=== PATIENT | female | born 1960 | race Caucasian/White ===

== ENCOUNTER → 2019-11-09 11:13 | Outpatient (CLI) | payer OTHER, SELFPAY | PROVIDERS: PCP Family Medicine; Visit Provider Family Medicine | DX: G47.33 Obstructive sleep apnea (adult) (pediatric) (principal) | CPT/HCPCS: G0399 ==

== ENCOUNTER → 2020-01-12 09:25 | Outpatient (CLI) | payer MEDICAID, SELFPAY ==
[2020-01-12 10:52] LABS: Coronavirus 19 IgG Antibody Negative (Negative); Coronavirus 19 IgM Antibody Negative (Negative)
== END ==
PROVIDERS: Visit Provider Nurse Practitioner Family
DX: Z01.818 Encounter for other preprocedural examination (principal)
CPT/HCPCS: 36415; 86328

== ENCOUNTER → 2020-01-14 20:00 | Outpatient (CLI) | payer MEDICAID, SELFPAY | PROVIDERS: Visit Provider Nurse Practitioner Family | DX: Z01.818 Encounter for other preprocedural examination (principal); G47.33 Obstructive sleep apnea (adult) (pediatric) | CPT/HCPCS: 95811 ==

== ENCOUNTER → 2020-03-12 10:44 | Outpatient (CLI) | payer MEDICAID, SELFPAY | PROVIDERS: Visit Provider Specialist | DX: E83.10 Disorder of iron metabolism, unspecified (principal); G25.81 Restless legs syndrome | CPT/HCPCS: 36415; 82728 ==

== ENCOUNTER → 2020-06-10 11:49 | Outpatient (CLI) | payer MEDICAID, SELFPAY ==
[2020-06-10 14:00] LABS: Chloride 96 mmol/L (98-107); Sodium 133 mmol/L (136-145)
[2020-06-10 14:01] LABS: Potassium 5.1 mmoL/L (3.5-5.1)
[2020-06-10 14:03] LABS: Blood Urea Nitrogen 17 mg/dl (7-17); Estimated Glomerular Filt Rate 74 ml/min (>60); GFR (African American) 89 ML/MIN (>60)
[2020-06-10 14:04] LABS: Anion Gap 17.1 mEq/L (5-15); Calcium 10.1 mg/dl (8.4-10.2); Carbon Dioxide 25 mmol/L (22.0-30.0); Glucose 373 mg/dl (74-100); Magnesium 1.8 mg/dl (1.6-2.3)
[2020-06-10 14:16] LABS: Basophils # 0.1 K/mm3 (0-0.2); Basophils % 0.7 % (0.1-2.0); Eosinophils # 0.3 K/mm3 (0.0-0.4); Eosinophils % 3.1 % (0.1-12.0); Hematocrit 33.2 % (37.0-47.0); Hemoglobin 10.2 g/dL (12.2-16.2); Lymphocytes # 2.7 K/mm3 (0.7-4.5); Lymphocytes % 29.2 % (10-50); Mean Corpuscular HGB Conc 30.6 g/dL (31.8-35.4); Mean Corpuscular Hemoglobin 21.7 pg (27.0-31.2); Mean Corpuscular Volume 71.1 fl (81-99); Mean Platelet Volume 7.8 fl (7.4-10.4); Monocytes # 0.6 K/mm3 (0.1-1.0); Monocytes % 6.1 % (1.7-9.3); Neutrophils # 5.7 K/mm3 (1.8-7.8); Neutrophils % 60.8 % (37.0-80.0); Platelet Count 437 K/mm3 (142-424); Red Blood Count 4.67 M/mm3 (4.20-5.40); Red Cell Distribution Width 16.9 % (11.5-17.5); White Blood Count 9.3 K/mm3 (4.8-10.8)
== END ==
PROVIDERS: Visit Provider Family Medicine
DX: E11.9 Type 2 diabetes mellitus without complications (principal); N39.0 Urinary tract infection, site not specified; E87.1 Hypo-osmolality and hyponatremia; Z79.4 Long term (current) use of insulin
CPT/HCPCS: 80048; 83735; 85025

== ENCOUNTER → 2021-06-30 10:46 | Outpatient (CLI) | payer MEDICAID, SELFPAY ==
[2021-06-30 11:14] LABS: Basophils # 0.2 K/mm3 (0-0.2); Basophils % 1.7 % (0.1-2.0); Eosinophils # 0.3 K/mm3 (0.0-0.4); Eosinophils % 3.1 % (0.1-12.0); Hematocrit 40.7 % (37.0-47.0); Hemoglobin 12.7 g/dL (12.2-16.2); Lymphocytes # 3.4 K/mm3 (0.7-4.5); Lymphocytes % 31.3 % (10-50); Mean Corpuscular HGB Conc 31.3 g/dL (31.8-35.4); Mean Corpuscular Hemoglobin 28.5 pg (27.0-31.2); Mean Platelet Volume 7.7 fl (7.4-10.4); Monocytes # 0.5 K/mm3 (0.1-1.0); Monocytes % 4.9 % (1.7-9.3); Neutrophils # 6.3 K/mm3 (1.8-7.8); Platelet Count 343 K/mm3 (142-424); Red Blood Count 4.47 M/mm3 (4.20-5.40); Red Cell Distribution Width 14.7 % (11.5-17.5); White Blood Count 10.7 K/mm3 (4.8-10.8)
[2021-06-30 11:41] LABS: Alanine Aminotransferase 23 U/L (12-78); Albumin Level 4.3 g/dl (3.5-5.0); Albumin/Globulin Ratio 1.3 (1.1-1.8); Alkaline Phosphatase 121 U/L (38-126); Anion Gap 11.6 mEq/L (5-15); Aspartate Amino Transferase 33 U/L (14-36); Bilirubin,Total 0.3 mg/dl (0.2-1.3); Calcium 10.2 mg/dl (8.4-10.2); Carbon Dioxide 31 mmol/L (22.0-30.0); Chloride 93 mmol/L (98-107); Chol/HDL Ratio 4.2 (1-3.5); Cholesterol 155 mg/dl (140-200); Globulin 3.2 g/dL (1.3-3.2); Glucose 355 mg/dl (74-100); HDL Cholesterol 37 mg/dl (40-60); Potassium 4.6 mmoL/L (3.5-5.1); Sodium 131 mmol/L (136-145); Total Protein,Serum 7.5 g/dl (6.3-8.2); Triglycerides 305 mg/dl (30-150); VLDL Cholesterol 61 mg/dL (0-40)
[2021-06-30 11:45] LABS: Blood Urea Nitrogen 23 mg/dl (7-17); Hemoglobin A1C 10.1 % (4.0-6.0)
[2021-06-30 11:46] LABS: Estimated Glomerular Filt Rate 86 ml/min (>60); GFR (African American) 104 ML/MIN (>60)
[2021-06-30 11:51] LABS: Direct LDL Cholesterol 78.24 mg/dL (100-129)
[2021-06-30 11:57] LABS: 25-OH Vitamin D, Total 32.7 ng/mL (30-100)
[2021-06-30 11:59] LABS: T4 (Thyroxine) 7.5 ug/dl (5.53-11.0)
[2021-07-01 11:16] LABS: C-Peptide 6.9 ng/mL (1.1-4.4)
== END ==
PROVIDERS: PCP Family Medicine; Visit Provider Nurse Practitioner Family
DX: E11.9 Type 2 diabetes mellitus without complications (principal); E66.9 Obesity, unspecified; Z68.31 Body mass index [BMI] 31.0-31.9, adult; Z79.4 Long term (current) use of insulin; Z79.899 Other long term (current) drug therapy
CPT/HCPCS: 36415; 80053; 80061; 82043; 82306; 83036; 84436; 84443; 84681; 85025

== ENCOUNTER → 2021-10-09 08:37 | Outpatient (CLI) | payer MEDICAID, SELFPAY ==
[2021-10-09 17:08] LABS: Hemoglobin A1C 8.3 % (4.0-6.0)
== END ==
PROVIDERS: PCP Family Medicine; Visit Provider Family Medicine
DX: E11.9 Type 2 diabetes mellitus without complications (principal); Z79.4 Long term (current) use of insulin
CPT/HCPCS: 83036

== ENCOUNTER → 2021-12-29 12:14 | Outpatient (CLI) | payer MEDICAID, SELFPAY ==
[2021-12-29 18:32] LABS: Hemoglobin A1C 9.6 % (4.0-6.0)
== END ==
PROVIDERS: PCP Family Medicine; Visit Provider Family Medicine
DX: G62.89 Other specified polyneuropathies (principal); E11.610 Type 2 diabetes mellitus with diabetic neuropathic arthropathy; Z79.4 Long term (current) use of insulin
CPT/HCPCS: 83036

== ENCOUNTER → 2022-05-20 10:22 | Outpatient (CLI) | payer MEDICARE, MEDICAID, SELFPAY ==
[2022-05-20 15:05] LABS: Basophils # 0.1 K/mm3 (0-0.2); Basophils % 0.5 % (0.1-2.0); Eosinophils # 0.2 K/mm3 (0.0-0.4); Eosinophils % 2.2 % (0.1-12.0); Hematocrit 35.6 % (37.0-47.0); Hemoglobin 10.7 g/dL (12.2-16.2); Lymphocytes # 3.1 K/mm3 (0.7-4.5); Lymphocytes % 30.9 % (10-50); Mean Corpuscular HGB Conc 30.1 g/dL (31.8-35.4); Mean Corpuscular Hemoglobin 21.1 pg (27.0-31.2); Mean Corpuscular Volume 70.1 fl (81-99); Mean Platelet Volume 7.6 fl (7.4-10.4); Monocytes # 0.5 K/mm3 (0.1-1.0); Monocytes % 4.7 % (1.7-9.3); Neutrophils # 6.1 K/mm3 (1.8-7.8); Neutrophils % 61.5 % (37.0-80.0); Platelet Count 434 K/mm3 (142-424); Red Blood Count 5.07 M/mm3 (4.20-5.40); Red Cell Distribution Width 22.1 % (11.5-17.5); White Blood Count 9.9 K/mm3 (4.8-10.8)
[2022-05-20 15:08] LABS: Alanine Aminotransferase 32 U/L (12-78); Albumin Level 4.5 g/dl (3.5-5.0); Albumin/Globulin Ratio 1.4 (1.1-1.8); Alkaline Phosphatase 202 U/L (38-126); Anion Gap 14.3 mEq/L (5-15); Aspartate Amino Transferase 42 U/L (14-36); Bilirubin,Total 0.2 mg/dl (0.2-1.3); Blood Urea Nitrogen 19 mg/dl (7-17); Calcium 10.2 mg/dl (8.4-10.2); Carbon Dioxide 27 mmol/L (22.0-30.0); Chloride 96 mmol/L (98-107); Estimated Glomerular Filt Rate 73 ml/min (>60); GFR (African American) 89 ML/MIN (>60); Globulin 3.2 g/dL (1.3-3.2); Glucose 308 mg/dl (74-100); Potassium 4.3 mmoL/L (3.5-5.1); Sodium 133 mmol/L (136-145); Total Protein,Serum 7.7 g/dl (6.3-8.2)
[2022-05-20 15:38] LABS: Thyroid Stimulating Hormone 1.95 uIU/mL (0.465-4.68)
[2022-05-20 17:21] LABS: Hemoglobin A1C 9.7 % (4.0-6.0)
== END ==
PROVIDERS: PCP Family Medicine; Visit Provider Family Medicine
DX: D64.9 Anemia, unspecified; E11.610 Type 2 diabetes mellitus with diabetic neuropathic arthropathy; Z79.4 Long term (current) use of insulin; Z79.899 Other long term (current) drug therapy
CPT/HCPCS: 80053; 83036; 84443; 85025

== ENCOUNTER → 2022-06-08 10:27 | Outpatient (CLI) | payer MEDICARE, MEDICAID, SELFPAY ==
--- NOTE | 2022-06-08 10:39 | NM_ITS ---
APPROVED REPORT Exam: Nuclear Stress Test Indication: Abnormal EKG, Chest pain, SOB, Palpitations, Fatigue, HTN, DM, High cholesterol, Family history, Tobacco use, CAD Patient Location: Outpatient Stress Tech: Shira Pickens [place] Tech:Juliann Ríos, ARRT, RT (R)(N) Ht: 5 ft 2 in Wt: 170 lbs Bra Size: 42D HR: 78 bpm BP: 132/79 mmHg BSA: 1.78 m2 TID: 1.22 BMI: 31.0 History: Abnormal EKG, Chest pain, SOB, Palpitations, Fatigue, HTN, DM, High cholesterol, Family history, Tobacco use, CAD Procedure: Patient received a 0.4 mg of intravenous Lexiscan, resting heart rate 78 bpm, resting blood pressure 132/79 mmHg, with Lexiscan maximum heart rate achived was 82 bpm which is Less than 85 % of the maximum predicted heart rate and blood pressure was 132/79 mmHg. With Lexiscan, patient denied any complaint of chest pain. Electrocardiogram Resting electrocardiogram shows sinus rhythm, with Lexiscan there is less than 1.[address] segment depression noted from the baseline EKG. The EKG portion of the Lexiscan is nondiagnostic. Cardiac Stress and Resting SPECT Images: Cardiac Stress and Resting SPECT images were obtained using technetium 99m Myoview 31.0 mCi stress and 10.28 mCi at rest. Gated SPECT for analysis of segmental wall motion and calculation of the ejection fraction also done. Cardiac stress and rest respectively show reversible ischemia involving the anterior and apical wall, computer derived ejection fraction is 36% with moderate anterior wall hypokinesis, right ventricle is normal size and contractility. There is transient ischemic dilatation of the left ventricle seen. Conclusion: 1. The EKG portion of the Lexiscan is nondiagnostic. 2. Scintigraphic evidence of reversible ischemia involving the anterior and apical wall, there is transient ischemic dilatation of the left ventricle seen, computer derived ejection fraction 36% with moderate anterior wall hypokinesis, right ventricle is normal size and contractility. 3. Abnormal Lexiscan Myoview study. Electronically signed by : Vishal Christianson MD 06/08/2022 19:52:33
--- NOTE | 2022-06-08 13:11 | HMH.ITSHM ---
Current Home Medications as stated by this patient Micheline Hernandez or national sales representative. []SEMAGLUTIDE PRAMIPEXOLE PANTOPRAZOLE MAGNESIUM LINAGLIPTIN INSULIN HYDROCODONE HCTZ GABAPENTIN IRON VITAMIN D2 CLOPIDOGREL CARVEDILOL BUPROPION ATORVASTATIN ASA AMTRIPTYLINE ALLOPURINOL
--- NOTE | 2022-06-08 13:49 | CA_ITS ---
APPROVED REPORT Exam: Pharmacologic Technologist: Shira Kauffman, Ht: 5 ft 3 in Wt: 177 lbs BSA: 1.84 m2 HR: 79 bpm BP: 132/79 mmHg Indications: HTN Medical History Medications: Levothyroxine,,,,, Aspirin,,,,, Lispro,,,,, Gabapentin,,,,, Allopurinol,,,,, Atorvastatin,,,,, HCTZ,,,,, Carvedilol,,,,, PERCOCET,,,,, Protonix,,,,, Plavix,,,,, Magnesium,,,,, Stress Test Details Test: LEXISCAN Reason for pharmacologic stress test: physical limitation. HR Resting HR: 78 bpm Max Heart Rate (APMHR): 161.142920 bpm Max HR Achieved: 82 bpm Target HR (85% APMHR): 136.463520 bpm % of APMHR: 50.93 Recovery HR: 79 bpm BP Resting BP: 132/79 mmHg Max BP: 132/79 mmHg Recovery BP: 125.0/71.0 mmHg ECG Resting ECG: NSR, PVC, low voltage QRS, ST-T adns inferiorly & laterally Clinical Exercise duration: 04:00 min Highest Stage Achieved: Exercise capacity: 1.0 METs Stress ECG Conclusion Symptoms: SOA, head discomfort, no CP. Arrhythmias/Ectopy: Occ PVC. ST-T Changes: No significant changes. Conclusion: Unremarkable Lexiscan stress. Myoview images reported separately. Test Summary REST . . . . . . . Resting REST 03:21 . . 78 . 132/ 79 . . Stage 1 01:00 . . 81 . . . . Stage 2 01:00 . . 81 . 109/ 67 . . Stage 3 01:00 . . 80 . 112/ 73 . . Stage 4 01:00 . . 79 . 118/ 67 . Stop exercise at 04:00 RECOVERY 01:00 . . 79 . 113/ 68 . . RECOVERY 02:00 . . 79 . 113/ 68 . . RECOVERY 03:00 . . 79 . 125/ 71 . . RECOVERY 03:18 . . 79 . 125/ 71 . . Electronically signed by : Vishal Christianson MD 06/08/2022 19:49:34
== END ==
PROVIDERS: PCP Family Medicine; Visit Provider Physician Assistant
DX: E13.69 Other specified diabetes mellitus with other specified complication (principal); F17.200 Nicotine dependence, unspecified, uncomplicated; I25.10 Atherosclerotic heart disease of native coronary artery without angina pectoris; I73.9 Peripheral vascular disease, unspecified; R06.09 Other forms of dyspnea; R07.89 Other chest pain; R94.31 Abnormal electrocardiogram [ECG] [EKG]; Z79.4 Long term (current) use of insulin
CPT/HCPCS: 78452; 93017; A9502; J2785

== ENCOUNTER 2022-07-22 17:11 | Emergency (ER) | payer MEDICARE, MEDICAID, SELFPAY ==
[2022-07-22 17:27] VITALS: BP 109/81; PULSE 93; RESP 18; TEMP 36.9; O2SAT 98; BMI 31.1
--- NOTE | 2022-07-22 17:48 | XR_ITS ---
PROCEDURE INFORMATION: Exam: XR Right Foot Exam date and time: 07/22/2022 6:02 PM Age: 61 years old Clinical indication: Pain; Foot; Right; Prior surgery TECHNIQUE: Imaging protocol: Radiologic exam of the Right foot. Views: 3 or more views. COMPARISON: No relevant prior studies available. FINDINGS: Bones/joints: Combined midfoot and forefoot arthrodesis. Three screws noted traversing the 1st, 2nd, and 4th metatarsals. No hardware-related complication noted. No visible fracture or dislocation. Soft tissues: Normal. Other findings: Multiple hammertoe deformities are present. IMPRESSION: 1. Combined midfoot and forefoot arthrodesis. 2. No visible fracture or dislocation.
--- NOTE | 2022-07-22 17:54 | EXP.UTC ---
Discharge Plan Disposition Patient Disposition: Home, Self-Care Condition: Good Prescriptions Prescriptions: New sulfamethoxazole-trimethoprim [Bactrim DS] 800-160 mg Tablet 1 tab PO BID Qty: 20 0RF cephalexin 500 mg capsule 500 mg PO QID Qty: 40 0RF mupirocin 2 % ointment 1 applic topical TID 7 Days Qty: 15 0RF No Action (DME) FreeStyle Lite Strips Strip See Rx Instructions .ROUTE .MEDSUPPLY Qty: 10 Label Comments: USE DIRECTED 3 TIMES PER DAY E11.65 Rx Instructions: As directed ergocalciferol (vitamin D2) 1,250 mcg (50,000 unit) capsule 1,250 mcg PO QMONTH Qty: 5 10RF magnesium oxide 400 mg (241.3 mg magnesium) tablet 400 mg PO DAILY Qty: 90 3RF ferrous sulfate [Feosol] 325 mg (65 mg iron) tablet 325 mg PO TID Lantus Solostar U-100 Insulin 100 unit/mL (3 mL) insulin pen See Rx Instructions .ROUTE .COMPLEX Qty: 15 2RF Dose Instruction: INJECT 70 UNITS UNDER THE SKIN TWICE A DAY Rx Instructions: INJECT 80 UNITS UNDER THE SKIN TWICE A DAY insulin lispro 100 unit/mL insulin pen 25 unit SQ TID Qty: 15 10RF carvedilol [Coreg] 12.5 mg tablet 12.5 mg PO BID Qty: 60 2RF Rx Instructions: must administer with a meal/food aspirin [Darshana Low Dose Aspirin] 81 mg tablet,delayed release (DR/EC) 81 mg PO DAILY Qty: 100 10RF bupropion HCl 150 mg tablet sustained-release 12 hr See Rx Instructions .ROUTE .COMPLEX Qty: 90 3RF Dose Instruction: TAKE 1 TABLET BY MOUTH EVERY DAY Rx Instructions: TAKE 1 TABLET BY MOUTH EVERY DAY citalopram 10 mg tablet 10 mg PO DAILY Qty: 90 3RF clopidogrel [Plavix] 75 mg tablet 75 mg PO DAILY Qty: 90 3RF hydrochlorothiazide 25 mg tablet 25 mg PO DAILY Qty: 90 3RF linagliptin 5 mg tablet 5 mg PO DAILY Qty: 90 3RF pantoprazole [Protonix] 40 mg tablet,delayed release (DR/EC) 40 mg PO DAILY Qty: 90 3RF pramipexole 0.25 mg tablet See Rx Instructions .ROUTE .COMPLEX Qty: 30 10RF Dose Instruction: TAKE 1 TABLET BY MOUTH NIGHTLY 2 HOURS BEFORE BEDTIME Rx Instructions: TAKE 1 TABLET BY MOUTH NIGHTLY 2 HOURS BEFORE BEDTIME Ozempic 0.25 mg or 0.5 mg(2 mg/1.5 mL) pen injector 0.25 mg SQ WEEKLY Qty: 1.5 10RF Rx Instructions: for 4 doses weekly and then .5mg weakly (DME) FreeStyle Laureen 14 Day [place] Misc See Rx Instructions .ROUTE .MEDSUPPLY Qty: 1 10RF Rx Instructions: As directed (DME) FreeStyle Laureen 14 Day Sensor Kit See Rx Instructions .ROUTE .COMPLEX Qty: 1 10RF Dose Instruction: USE DIRECTED Rx Instructions: USE DIRECTED gabapentin 600 mg tablet 1,200 mg PO TID 30 Days Qty: 180 0RF hydrocodone-acetaminophen 10-325 mg tablet 1 tab PO QID PRN (Reason: pain) Qty: 120 0RF amoxicillin-pot clavulanate 875-125 mg tablet 1 tab PO BID Qty: 20 0RF (DME) Omnipod Classic Pods (Gen 3) Cartridge See Rx Instructions .Route Qty: 5 0RF Rx Instructions: As directed amitriptyline 50 mg tablet See Rx Instructions .ROUTE .COMPLEX Qty: 90 0RF Dose Instruction: TAKE 1 TABLET BY MOUTH AT BEDTIME Rx Instructions: TAKE 1 TABLET BY MOUTH AT BEDTIME allopurinol 100 mg tablet See Rx Instructions .ROUTE .COMPLEX Qty: 90 0RF Dose Instruction: TAKE 1 TABLET BY MOUTH EVERY DAY Rx Instructions: TAKE 1 TABLET BY MOUTH EVERY DAY atorvastatin 80 mg tablet See Rx Instructions .ROUTE .COMPLEX Qty: 90 0RF Dose Instruction: TAKE 1 TABLET BY MOUTH EVERY DAY Rx Instructions: TAKE 1 TABLET BY MOUTH EVERY DAY levothyroxine 200 mcg tablet See Rx Instructions .ROUTE .COMPLEX Qty: 90 0RF Dose Instruction: TAKE 1 TABLET BY MOUTH EVERY DAY Rx Instructions: TAKE 1 TABLET BY MOUTH EVERY DAY Referrals Follow up/Referrals: Can Velasco MD [Primary Care Provider] - See instructions Daniella Finnegan DPM [Staff Physician] - See instr
[2022-07-22 18:25] VITALS: BP 109/81; PULSE 93; RESP 18; TEMP 36.9; O2SAT 98; BMI 31.2
[2022-07-22 19:04] VITALS: BP 109/81; PULSE 93; RESP 18; TEMP 36.9; O2SAT 98
== END 2022-07-22 19:04 | disposition home or self-care (01) ==
PROVIDERS: Emergency Provider Nurse Practitioner Family; PCP Family Medicine
DX: E11.621 Type 2 diabetes mellitus with foot ulcer (principal); A49.02 Methicillin resistant Staphylococcus aureus infection, unspecified site; L98.499 Non-pressure chronic ulcer of skin of other sites with unspecified severity
CPT/HCPCS: 73630; 87070; 87077; 87186; 87205; 99212; 99213; G0463

== ENCOUNTER → 2022-08-06 14:17 | Outpatient (CLI) | payer MEDICARE, MEDICAID, SELFPAY ==
[2022-08-06 16:27] LABS: Amphetamine/Metha Screen,Urine Negative ng/ml (<1000)
[2022-08-06 16:29] LABS: Barbiturates Screen,Urine Negative ng/ml (<200); Benzodiazepines Screen,Urine Negative ng/ml (<200)
[2022-08-06 16:30] LABS: Cannabinoid Screen,Urine Positive ng/ml (<50)
[2022-08-06 16:31] LABS: Cocaine Screen,Urine Negative ng/ml (<300); Methadone Screen,Urine Negative ng/ml (<300)
[2022-08-06 16:32] LABS: Opiate Screen,Urine Negative ng/ml (<300)
[2022-08-06 16:33] LABS: Phencyclidine Screen,Urine Negative ng/ml (<25)
== END ==
PROVIDERS: PCP Family Medicine; Visit Provider Family Medicine
DX: Z79.899 Other long term (current) drug therapy (principal)
CPT/HCPCS: 80305

== ENCOUNTER → 2022-10-21 08:25 | Outpatient (CLI) | payer MEDICARE, MEDICAID, SELFPAY ==
--- NOTE | 2022-10-21 08:33 | XR_ITS ---
FINAL REPORT CLINICAL HISTORY: left foot pain COMPARISON: None FINDINGS: LEFT FOOT Three views of the left foot demonstrate no acute fracture or dislocation. The visualized joint spaces are normally aligned. The soft tissues are unremarkable. IMPRESSION: No acute bony abnormality. Reviewed, Interpreted and Dictated by Zeb Shah MD Transcribed by Justyna Pabon Authenticated and [facility]
--- NOTE | 2022-10-21 08:33 | XR_ITS ---
FINAL REPORT CLINICAL HISTORY: right foot pain COMPARISON: 07/22/2022 FINDINGS: RIGHT FOOT 3 views of the right foot were obtained. Orthopedic hardware is present securing the 1st, 2nd, and 4th digital rays. There is a linear metallic density adjacent to the 2nd metatarsal measuring 1 cm and appears to represent a small foreign body, similar to the prior study. There is extensive disorganization and sclerosis within the tarsal bones and intertarsal joints. There is no acute fracture or dislocation. IMPRESSION: Stable findings compared to prior study. Reviewed, Interpreted and Dictated by Zeb Shah MD Transcribed by Justyna Pabon Authenticated and [facility]
[2022-10-21 09:20] LABS: Basophils # 0.1 K/mm3 (0-0.2); Basophils % 1.1 % (0.1-2.0); Eosinophils # 0.2 K/mm3 (0.0-0.4); Eosinophils % 2.3 % (0.1-12.0); Hemoglobin 13.5 g/dL (12.2-16.2); Lymphocytes # 2.9 K/mm3 (0.7-4.5); Lymphocytes % 33.2 % (10-50); Mean Corpuscular HGB Conc 32.9 g/dL (31.8-35.4); Mean Corpuscular Hemoglobin 30.8 pg (27.0-31.2); Mean Corpuscular Volume 93.6 fl (81-99); Mean Platelet Volume 6.4 fl (7.4-10.4); Monocytes # 0.4 K/mm3 (0.1-1.0); Neutrophils # 5.1 K/mm3 (1.8-7.8); Neutrophils % 58.3 % (37.0-80.0); Platelet Count 260 K/mm3 (142-424); Red Blood Count 4.38 M/mm3 (4.20-5.40); Red Cell Distribution Width 15.3 % (11.5-17.5); White Blood Count 8.7 K/mm3 (4.8-10.8)
[2022-10-21 09:36] LABS: Chloride 89 mmol/L (98-107); Potassium 4.3 mmoL/L (3.5-5.1); Sodium 134 mmol/L (136-145)
[2022-10-21 09:38] LABS: Blood Urea Nitrogen 18 mg/dl (7-17); Estimated Glomerular Filt Rate 57 ml/min (>60); GFR (African American) 68 ML/MIN (>60)
[2022-10-21 09:39] LABS: Alanine Aminotransferase 49 U/L (12-78); Albumin Level 4.5 g/dl (3.5-5.0); Albumin/Globulin Ratio 1.2 (1.1-1.8); Alkaline Phosphatase 134 U/L (38-126); Anion Gap 16.3 mEq/L (5-15); Aspartate Amino Transferase 93 U/L (14-36); Bilirubin,Total 0.7 mg/dl (0.2-1.3); Calcium 10.1 mg/dl (8.4-10.2); Carbon Dioxide 33 mmol/L (22.0-30.0); Globulin 3.7 g/dL (1.3-3.2); Glucose 228 mg/dl (74-100); Total Protein,Serum 8.2 g/dl (6.3-8.2)
[2022-10-21 09:47] LABS: C-Reactive Protein 2.9 mg/L (0-4)
[2022-10-21 11:21] LABS: Erythrocyte Sedimentation Rate 69 mm/hr (0-30)
== END ==
PROVIDERS: PCP Family Medicine; Visit Provider Podiatrist
DX: E11.610 Type 2 diabetes mellitus with diabetic neuropathic arthropathy (principal); L97.519 Non-pressure chronic ulcer of other part of right foot with unspecified severity; L97.529 Non-pressure chronic ulcer of other part of left foot with unspecified severity; Z79.4 Long term (current) use of insulin
CPT/HCPCS: 36415; 73630; 80053; 85025; 85651; 86140

== ENCOUNTER → 2022-10-22 11:26 | Outpatient (CLI) | payer MEDICARE, MEDICAID, SELFPAY ==
--- NOTE | 2022-10-22 11:27 | CA_ITS ---
FINAL REPORT TECHNIQUE: Ultrasound images of the deep venous system were obtained from the left groin to the calf veins. CLINICAL HISTORY: left leg swelling FINDINGS: The deep venous system is normally compressible. Normal flow is identified. There is a complex Gaspar cyst measuring 3.3 x 1.7 cm. IMPRESSION: No evidence of left lower extremity DVT. Reviewed, Interpreted and Dictated by Zeb Shah MD Transcribed by Janki Avila Authenticated and [facility]
[2022-10-22 12:25] LABS: D-Dimer 0.59 ug/mL (0.0-0.5)
[2022-10-22 13:11] LABS: Hemoglobin A1C 10.1 % (4.0-6.0)
== END ==
PROVIDERS: PCP Family Medicine; Visit Provider Nurse Practitioner Family
DX: I20.8 Other forms of angina pectoris (principal); R06.09 Other forms of dyspnea; R55 Syncope and collapse; I10 Essential (primary) hypertension; E78.5 Hyperlipidemia, unspecified; I73.9 Peripheral vascular disease, unspecified; E11.9 Type 2 diabetes mellitus without complications; R60.0 Localized edema; R94.30 Abnormal result of cardiovascular function study, unspecified; F17.200 Nicotine dependence, unspecified, uncomplicated; R94.31 Abnormal electrocardiogram [ECG] [EKG]; Z79.4 Long term (current) use of insulin
CPT/HCPCS: 83036; 84443; 85378; 93971

== ENCOUNTER 2022-10-27 08:15 | Day surgery (SDC) | payer MEDICARE, MEDICAID, SELFPAY ==
[2022-10-27] VITALS (11 sets, daily range): BP systolic 125–210; BP diastolic 67–117; PULSE 80–88; RESP 15–20; O2SAT 93–100; BMI 31.8
--- NOTE | 2022-10-27 07:07 | IR_ITS ---
APPROVED REPORT Patient Location: Outpatient [facility] Supervisor: KIESHA Soto RT (R) PROCEDURES Left heart catheterization Left ventriculogram Selective coronary angiogram Bilateral selective renal angiography INDICATION High risk abnormal Myoview, Systolic congestive heart failure ejection fraction 36%, Severe hypertension suspect renal artery stenosis, Suspect renovascular hypertension, Informed consent was obtained prior to the procedure. COMPLICATIONS None Estimated Blood Loss: Less than 10 ML TECHNIQUE One percent lidocaine used to anesthetize the right anterior aspect of the wrist. The right radial artery was accessed via the Seldinger technique. A 6 Azeri sheath was placed in the right radial artery. 150 mg magnesium sulfate, 800 mcg of nitroglycerin, 1mg Lidocaine and 5000 U Heparin were given through the arterial sheath. The papa catheter and 6 Azeri JL 3 guide catheter were also used to perform left heart catheterization, left ventriculogram and selective coronary angiogram. The Poppa catheter was used to perform bilateral selective renal angiography. At the end the procedure the apparatus was removed the sheath was removed and hemostasis was achieved and TR banding patient was transferred to the postop putting a stable addition ANGIOGRAPHIC RESULTS The left main artery Normal The left anterior descending artery Has proximal smooth 10% luminal regularities with remaining vessel free of disease. There is a large first septal automatic furnace operator which has a proximal smooth 60 to 70% stenosis The circumflex artery Nondominant with mild 10% luminal irregularities The right coronary artery Dominant with distal 10 to 20% luminal irregularities The EDWARDS ventriculogram reveals Slight left ventricular dilatation ejection fraction 40% The left ventricular end-diastolic pressure 20 mmHg Right renal artery singular normal Left renal artery singular normal IMPRESSION Nonocclusive coronary artery disease 60 to 70% stenosis in the first septal automatic furnace operator which is clinically insignificant and not amenable to revascularization Dilated ventricle with reduced ejection fraction Elevated LVEDP Normal renal arteries PLAN 1. Continue medical management for or LV dysfunction 2. Aggressive risk factor modification Electronically signed by : Armando Felipe MD 10/27/2022 10:46:29
== END 2022-10-27 13:57 | disposition home or self-care (01) ==
PROVIDERS: PCP Family Medicine; Visit Provider Internal Medicine
DX: E78.5 Hyperlipidemia, unspecified (principal); F17.210 Nicotine dependence, cigarettes, uncomplicated; I11.0 Hypertensive heart disease with heart failure; I25.118 Atherosclerotic heart disease of native coronary artery with other forms of angina pectoris; E11.9 Type 2 diabetes mellitus without complications; Z79.899 Other long term (current) drug therapy; Z79.4 Long term (current) use of insulin; I70.1 Atherosclerosis of renal artery; I70.213 Atherosclerosis of native arteries of extremities with intermittent claudication, bilateral legs; I50.22 Chronic systolic (congestive) heart failure; I15.0 Renovascular hypertension
CPT/HCPCS: 36252; 93458; 99152; C1725; C1769; J1644; Q9967

== ENCOUNTER → 2022-11-26 13:48 | Outpatient (CLI) | payer MEDICARE, MEDICAID, SELFPAY ==
[2022-11-26 13:13] LABS: Basophils # 0.1 K/mm3 (0-0.2); Basophils % 0.6 % (0.1-2.0); Eosinophils # 0.3 K/mm3 (0.0-0.4); Eosinophils % 3.1 % (0.1-12.0); Hematocrit 35.5 % (37.0-47.0); Hemoglobin 11.6 g/dL (12.2-16.2); Lymphocytes # 2.4 K/mm3 (0.7-4.5); Lymphocytes % 22.4 % (10-50); Mean Corpuscular HGB Conc 32.7 g/dL (31.8-35.4); Mean Corpuscular Hemoglobin 31.2 pg (27.0-31.2); Mean Corpuscular Volume 95.6 fl (81-99); Mean Platelet Volume 7.3 fl (7.4-10.4); Monocytes # 0.6 K/mm3 (0.1-1.0); Monocytes % 5.1 % (1.7-9.3); Neutrophils # 7.5 K/mm3 (1.8-7.8); Neutrophils % 68.9 % (37.0-80.0); Platelet Count 308 K/mm3 (142-424); Red Blood Count 3.72 M/mm3 (4.20-5.40); Red Cell Distribution Width 14.7 % (11.5-17.5); White Blood Count 10.9 K/mm3 (4.8-10.8)
[2022-11-26 13:52] LABS: Alanine Aminotransferase 43 U/L (12-78); Albumin Level 4.5 g/dl (3.5-5.0); Albumin/Globulin Ratio 1.2 (1.1-1.8); Alkaline Phosphatase 141 U/L (38-126); Anion Gap 17.5 mEq/L (5-15); Aspartate Amino Transferase 71 U/L (14-36); Bilirubin,Total 0.7 mg/dl (0.2-1.3); Blood Urea Nitrogen 37 mg/dl (7-17); Calcium 9.9 mg/dl (8.4-10.2); Carbon Dioxide 30 mmol/L (22.0-30.0); Chloride 92 mmol/L (98-107); Estimated Glomerular Filt Rate 27 ml/min (>60); GFR (African American) 33 ML/MIN (>60); Globulin 3.8 g/dL (1.3-3.2); Glucose 235 mg/dl (74-100); HDL Cholesterol 48 mg/dl (40-60); Potassium 4.5 mmoL/L (3.5-5.1); Sodium 135 mmol/L (136-145); Total Protein,Serum 8.3 g/dl (6.3-8.2); Triglycerides 361 mg/dl (30-150); VLDL Cholesterol 72 mg/dL (0-40)
[2022-11-26 14:01] LABS: Chol/HDL Ratio 7.4 (1-3.5); Cholesterol 355 mg/dl (140-200)
[2022-11-26 14:03] LABS: Direct LDL Cholesterol 196.01 mg/dL (100-129)
[2022-11-28 09:11] LABS: T4 (Thyroxine) 0.4 ug/dl (5.53-11.0)
== END ==
PROVIDERS: PCP Family Medicine; Visit Provider Family Medicine
DX: R60.0 Localized edema (principal); R07.89 Other chest pain; R06.09 Other forms of dyspnea
CPT/HCPCS: 80053; 80061; 84436; 84443; 85025

== ENCOUNTER → 2023-01-12 11:08 | Outpatient (CLI) | payer MEDICARE, MEDICAID, SELFPAY ==
[2023-01-12 12:57] LABS: Anion Gap 15.5 mEq/L (5-15); Blood Urea Nitrogen 23 mg/dl (7-17); Calcium 9.4 mg/dl (8.4-10.2); Carbon Dioxide 25 mmol/L (22.0-30.0); Chloride 102 mmol/L (98-107); Estimated Glomerular Filt Rate 64 ml/min (>60); GFR (African American) 77 ML/MIN (>60); Glucose 165 mg/dl (74-100); Potassium 5.5 mmoL/L (3.5-5.1); Sodium 137 mmol/L (136-145)
== END ==
PROVIDERS: PCP Nurse Practitioner Family; Visit Provider Nurse Practitioner Family
DX: E11.9 Type 2 diabetes mellitus without complications (principal); Z79.4 Long term (current) use of insulin; Z79.899 Other long term (current) drug therapy
CPT/HCPCS: 36415; 80048

== ENCOUNTER → 2023-04-21 14:03 | Outpatient (CLI) | payer MEDICARE, MEDICAID, SELFPAY ==
[2023-04-21 15:22] VITALS: BMI 30.8
== END ==
LOC: DIETICIAN 14:04
PROVIDERS: PCP Nurse Practitioner Family; Visit Provider Nurse Practitioner Family
DX: E11.9 Type 2 diabetes mellitus without complications (principal); Z71.3 Dietary counseling and surveillance
CPT/HCPCS: 97802

== ENCOUNTER 2023-08-11 12:08 | Outpatient (CLI) | payer MEDICARE, MEDICAID, SELFPAY ==
[2023-08-11 13:14] LABS: Creatinine,Urine Random 140 mg/dL (Not Estab.)
[2023-08-11 14:02] LABS: Microalbumin/Creatinine Ratio 702.4
== END 2023-08-11 23:59 ==
LOC: LAB.DROPOF 12:09
PROVIDERS: PCP Nurse Practitioner Family; Visit Provider Nurse Practitioner Family
DX: E11.9 Type 2 diabetes mellitus without complications (principal); N39.0 Urinary tract infection, site not specified; B96.5 Pseudomonas (aeruginosa) (mallei) (pseudomallei) as the cause of diseases classified elsewhere; Z79.4 Long term (current) use of insulin
CPT/HCPCS: 82043; 82570; 87086

== ENCOUNTER 2024-01-25 10:48 | Outpatient (CLI) | payer MEDICARE, MEDICAID, SELFPAY | END 2024-01-25 23:59 | disposition home or self-care (01) | LOC: LAB.DROPOF 01-26 10:48 | PROVIDERS: PCP Nurse Practitioner Family; Visit Provider Nurse Practitioner Family | DX: N60.02 Solitary cyst of left breast (principal) | CPT/HCPCS: 87070; 87077; 87186; 87205 ==

== ENCOUNTER 2024-04-14 14:21 | Observation (INO) | payer MEDICARE, MEDICAID, SELFPAY ==
[2024-04-14] VITALS (9 sets, daily range): BP systolic 89–194; BP diastolic 57–107; PULSE 61–98; RESP 16–18; TEMP 36.7–36.9; O2SAT 95–100; BMI 29.6; BMI 29.9
--- NOTE | 2024-04-14 15:26 | EXP.UTC ---
Discharge Plan Disposition Patient Disposition: Admitted Condition: Good Clinical Impressions Clinical Impression: Constipation Qualifiers: Constipation type: drug induced constipation Qualified Code(s): K59.03 - Drug induced constipation Discharge ED Provider: Yanet Nickerson [facility] [place] <Sadie Martinez APRN - Last Filed: 04/14/24 20:29> General Stated complaint: unable to use the restroom, vomiting Mode of Arrival: Ambulatory Source of Information: Patient Limitations: No Limitations Time Seen by Provider: 04/14/24 15:27 Description of Symptoms (Recalled from Triage Doc. by RN): PATIENT C/O CONSTIPATION, VOMITING, DIZZINESS AND HEADACHE THAT STARTED YESTERDAY. SHE STATES HER LAST BOWEL MOVEMENT WAS AROUND 03/31/24. HEENT Symptoms (Recalled from RN notes): Yes Resp Symptoms (Recalled from RN notes): No Skin Symptoms (Recalled from RN notes): No MS Symptoms (Recalled from RN notes): No Functional Status (Recalled from RN notes): WNL History of Present Illness Provider Complaint: Patient states that she was seen on 04/07 at [facility] and was told that she was constipated and they give her some stuff to drink to help her go, states that she has still not had a bowel movement, states now her stomach pain is worse and she started last night with N/V and feeling dizzy so today when she was still vomiting and her stomach was hurting worse she came in to get checked Related Data Home Medications ?Medication ?Instructions ?Recorded ?Confirmed blood sugar diagnostic (FreeStyle #10 ea 07/30/21 02/02/24 Lite Strips) Previous Rx's ?Medication ?Instructions ?Recorded linagliptin 5 mg tablet 5 mg PO DAILY Diabetes #90 tabs 01/21/23 hydrocodone 10 mg-acetaminophen 1 tab PO QID PRN pain #60 tabs 08/11/23 325 mg tablet aspirin 81 mg tablet,delayed 81 mg PO DAILY CAD #90 tabs 08/29/23 release (Darshana Low Dose Aspirin) ergocalciferol (vitamin D2) 1,250 1,250 mcg PO QMONTH Supplement #14 08/29/23 mcg (50,000 unit) capsule caps ferrous sulfate 325 mg (65 mg 325 mg PO TID Supplement #90 tabs 08/29/23 iron) tablet (Feosol) gabapentin 800 mg tablet See Rx Instructions .Route 10/13/23 .COMPLEX #120 tabs citalopram 20 mg tablet See Rx Instructions .Route 12/07/23 .COMPLEX #90 tabs insulin lispro 100 unit/mL 15 unit (0.15 mL) SQ BID Diabetes 01/25/24 subcutaneous pen #15 mL blood-glucose meter,continuous #1 ea 01/31/24 (FreeStyle Laureen 3 [place]) blood-glucose sensor (FreeStyle #1 ea 01/31/24 Laureen 3 Sensor device) fluconazole 150 mg tablet 150 mg PO DAILY 5 days #5 tabs 01/31/24 minocycline 100 mg capsule 100 mg PO BID 10 days #20 caps 02/02/24 magnesium oxide 400 mg (241.3 mg See Rx Instructions .Route 02/03/24 magnesium) tablet .COMPLEX #90 tabs insulin glargine 100 unit/mL (3 See Rx Instructions .Route 02/13/24 mL) subcutaneous pen (Lantus .COMPLEX #45 mL Solostar U-100 Insulin) levothyroxine 200 mcg tablet See Rx Instructions .Route 02/13/24 .COMPLEX #90 tabs nystatin 100,000 unit/gram topical See Rx Instructions .Route 02/13/24 powder .COMPLEX #60 grams allopurinol 100 mg tablet See Rx Instructions .Route 03/02/24 .COMPLEX #90 tabs amitriptyline 50 mg tablet See Rx Instructions .Route 03/02/24 .COMPLEX #90 tabs atorvastatin 80 mg tablet See Rx Instructions .Route 03/02/24 .COMPLEX #90 tabs bupropion HCl 150 mg tablet,12 hr 150 mg PO BID #180 ea 03/02/24 sustained-release carvedilol 25 mg tablet See Rx Instructions .Route 03/02/24 .COMPLEX #180 tabs clopidogrel 75 mg tablet See Rx Instructions .Route 03/02/24 .COMPLEX #90 tabs furosemide 40 mg tablet See Rx Instructions .Route 03/02/24 .COMPLEX #90 tabs lisinopril 40 mg tablet See Rx Instructions .Route 03/02/24 .COMPLEX #90 tabs pantoprazole 40 mg tablet,delayed See Rx Instructions .Route 03/02/24 release .COMPLEX #90 tabs pramipexole 0.5 mg tablet See Rx Instructions .Route 03/02/24 .COMPLEX #90 tabs spironolactone 25 mg tablet See Rx Instructions .Route 03/02/24 .COMPLEX #90 tabs semaglutide 1 mg/dose (4 mg/3 mL) See Rx Instructions .Route 04/13/24 subcutaneous pen injector (Ozempic) .COMPLEX #3 mL Allergies Allergy/AdvReac Type Severity Reaction Status Date / Time canagliflozin [From Invokana] Allergy Severe kidney Verified 02/02/24 08:58 issues Worker's Comp Is this a Worker's Comp case?: No PFSH <Sadie Martinez APRN - Last Filed: 04/14/24 20:29> PFS Disclaimer: The information contained in this section may have been updated after the patient was seen, as this information can be updated by other users. Medical History Elevated left ventricular end-diastolic pressure (LVEDP) Edema of both lower extremities Syncope Abnormal result of cardiovascular function study Typical angina Arthritis GERD (gastroesophageal reflux disease) Depression COPD (chronic obstructive pulmonary disease) Arrhythmia Hyperlipidemia Surgical History History of cancer surgery H/O total hysterectomy Hx of colonoscopy Family History Other Cancer Coronary artery disease Diabetes Heart attack Hypertension Stroke Social History Smoking Status: Current every day smoker tobacco type: cigarettes alcohol intake: never substance use type: denies use current occupational status: unemployed and disabled Travel in the last 8 weeks: None household members: spouse housing: house <Sadie Martinez APRN - Last Filed: 04/14/24 20:29> ROS Obtained: Yes All systems reviewed & no additional complaints except as documented and Yes Systems reviewed as appropriate & no additional complaints except as documented Constitutional Constitutional: Reports system reviewed and no additional complaints, except as documented, Reports as per HPI and Denies fever(s) ENT Ears, Nose, Mouth, and Throat: Reports system reviewed and no additional complaints, except as documented and Reports as per HPI Cardiovascular Cardiovascular: Reports system reviewed and no additional complaints, except as documented and Reports as per HPI Respiratory Respiratory: Reports system reviewed and no additional complaints, except as documented and Reports as per HPI Gastrointestinal Gastrointestingal: Reports system reviewed and no additional complaints, except as documented, as per HPI, abdominal pain, constipation, nausea and vomiting Physical Exam <Sadie Martinez APRN - Last Filed: 04/14/24 20:29> General General appearance: alert and in no apparent distress Respiratory Respiratory exam: Present normal lung sounds bilaterally; Absent respiratory distress or wheezes Cardiovascular Cardiovascular exam: Present regular rate, normal rhythm and normal heart sounds Abdominal Exam Abdominal exam: Present tenderness (reports diffuse pain all over abdomen, reports tenderness with palpation) Neurological Exam Neurological exam: Present alert, oriented X3 and normal gait Medical Decision Making <Ramona LAKEISHA Martinez - Last Filed: 04/14/24 20:29> Medical Records Screening: Per USPSTF and CDC recommendations, given the prevalence of disease in our region, it is our hospital?s policy to screen for HIV and viral Hepatitis for all patients aged 18 and over and those with ongoing risk factors. Salty Inquiry Pt receiving controlled substance: No Salty was queried for this patient: No Vital Signs: 04/14/24 15:15 Temperature 98.0 F Temperature Source Oral Pulse Rate [Left Brachial] 96 H Respiratory Rate 18 Blood Pressure [Left Arm] 114/93 H Blood Pressure Mean [Left Arm] 100 Blood Pressure Source [Left Arm] Automatic Cuff Blood Pressure Position [Left Arm] Sitting 02 Sat by Pulse Oximetry 99 Oxygen Delivery Method Room Air Lab Data 04/14/24 15:46 04/14/24 15:46 Medical Decision Narrative: Patient reports that she has not had a bowel movement in several weeks, was seen at [facility] and dx with constipation on 04/07 States she has still not had BM and then yesterday her stomach pain got worse and she started having N/V Discussed with patient and due to symptoms and complaints that she be transferred to the ED for furhter work up and evaluation and she agreed Called ED and moved to room 11 <Yanet Nickerson MD - Last Filed: 04/14/24 19:08> Vital Signs: 04/14/24 15:15 Temperature 98.0 F Temperature Source Oral Pulse Rate [Left Brachial] 96 H Respiratory Rate 18 Blood Pressure [Left Arm] 114/93 H Blood Pressure Mean [Left Arm] 100 Blood Pressure Source [Left Arm] Automatic Cuff Blood Pressure Position [Left Arm] Sitting 02 Sat by Pulse Oximetry 99 Oxygen Delivery Method Room Air Lab Data Lab results reviewed: Yes I reviewed the patient's lab results. Medical Decision Narrative: Patient reports that she has not had a bowel movement in several weeks, was seen at [facility] and dx with constipation on 04/07 States she has still not had BM and then yesterday her stomach pain got worse and she started having N/V Discussed with patient and due to symptoms and complaints that she be transferred to the ED for furhter work up and evaluation and she agreed Called ED and moved to room 11 I was informed of patient sent over by urgent treatment, had an informed discussion with previous care provider and rest of encounter per my documented note. Yanet Nickerson MD
--- NOTE | 2024-04-14 15:33 | PC.NURSE ---
PATIENT SENT TO ER PER Johanne HERRERA APRN FOR FURTHER EVALUATION. REPORT GIVEN TO DR. LEYVA BY Johanne HERRERA APRN. PATIENT TRANSPORTED TO ER VIA WHEELCHAIR WITH [facility] STAFF ASSIST AT THIS TIME
--- NOTE | 2024-04-14 15:37 | PC.NURSE ---
pt arrived to er from [facility]
--- NOTE | 2024-04-14 15:38 | CT_ITS ---
PROCEDURE INFORMATION: Exam: CT Abdomen And Pelvis With Contrast Exam date and time: 04/14/2024 4:16 PM Age: 63 years old Clinical indication: Nausea; Additional info: Abd pain, n/v, CT with severe const [facility] TECHNIQUE: Imaging protocol: Computed tomography of the abdomen and pelvis with contrast. Radiation optimization: All CT scans at this facility use at least one of these dose optimization techniques: automated exposure control; mA and/or kV adjustment per patient size (includes targeted exams where dose is matched to clinical indication); or iterative reconstruction. Contrast material: ISOVUE; Contrast volume: 75 ml; Contrast route: IV; COMPARISON: No relevant prior studies available. FINDINGS: Lungs: The visualized lung bases are clear. Pleural spaces: There are no pleural effusions. Heart: The visualized portions of the heart are unremarkable. There is a trace amount of pericardial fluid. Liver: There is diffuse decrease in hepatic/liver parenchymal density consistent with fatty infiltration. There is mild enlargement of the liver. The liver measures 19.4 cm in CC dimension. Gallbladder and biliary ducts: The gallbladder is normal. There is biliary ductal dilatation, most prominent involving the mid common bile duct measuring approximately 12 mm. No obvious filling defects. Pancreas: There is mild dilatation of the pancreatic duct, most prominent proximally measuring approximately 4.3 mm. There is diffuse atrophy of the pancreatic parenchyma. Spleen: The spleen demonstrates punctate calcifications, consistent with remote granulomatous organism exposure. Adrenal glands: The adrenal glands are normal. Kidneys and ureters: There are areas of renal cortical scarring/lobulation. 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 No hydronephrosis. Stomach and bowel: The stomach is normal. Lack of gastrointestinal contrast limits evaluation of bowel. There is mild apparent mural thickening involving the distal duodenum and duodenal jejunal junction. Loops of small bowel are otherwise within range of normal. Mild diverticulosis is present in the distal colon. There is no evidence of colitis/diverticulitis. There is mildly excessive colonic stool content. Appendix: A normal appendix is identified. Intraperitoneal space: There is no evidence of free intraperitoneal or pelvic fluid. No evidence of intraperitoneal free air. Vasculature: The aorta and iliac arteries demonstrate moderate atherosclerotic calcification. Atherosclerotic vascular calcifications involve the origin of the celiac and SMA arteries as well as bilateral renal arteries. There is likely mild stenosis involving the origin of both celiac and SMA arteries and bilateral renal arteries. Lymph nodes: There is no evidence of pathologic adenopathy. Urinary bladder: The bladder is normal. Reproductive: The uterus is either atrophic or absent. No adnexal masses. No adnexal cysts or masses are identified. Bones/joints: There are mild degenerative changes of the hip joints. There are moderate degenerative changes of the symphyseal pubic joint. There are moderate degenerative changes of the sacroiliac joints. The thoracolumbar spine demonstrates moderate degenerative changes at multiple levels. There is mild compressive changes involving the superior endplate of T11, age indeterminate. Soft tissues: There is a small fat-containing umbilical hernia. IMPRESSION: 1. Biliary and pancreatic ductal dilatation, most prominent involving the mid common bile duct measuring approximately 12 mm. Recommend right upper quadrant ultrasound for further evaluation 2. Mild apparent mural thickening involving the distal duodenum and duodenal jejunal junction, possibly an artifact of incomplete distension. Cannot entirely exclude enteritis or other inflammatory/infiltrative processes in the appropriate clinical setting. Correlate clinically. 3. Mild constipation. 4. Mild compressive changes involving the superior endplate of T11, age indeterminate. 5. Fatty hepatic infiltration and mild hepatomegaly. 6. Small fat-containing umbilical hernia. 7. Area of apparent mural thickening involving the splenic flexure most likely reflecting artifact of incomplete distension. Difficult to entirely exclude mural abnormality. Correlate clinically and recommend additional evaluation when the patient's condition permits.
--- NOTE | 2024-04-14 15:47 | HMH.EDGENADL ---
Discharge Plan Disposition Patient Disposition: Admitted Condition: Good Prescriptions Prescriptions: No Action (DME) FreeStyle Lite Strips Strip See Rx Instructions .ROUTE .MEDSUPPLY Qty: 10 Patient Comments: USE DIRECTED 3 TIMES PER DAY E11.65 Rx Instructions: As directed hydrocodone-acetaminophen 10-325 mg tablet 1 tab PO QID PRN (Reason: pain) Qty: 60 0RF linagliptin 5 mg tablet 5 mg PO DAILY Qty: 90 1RF insulin lispro 100 unit/mL insulin pen 15 unit SQ BID Qty: 15 3RF minocycline 100 mg capsule 100 mg PO BID 10 Days Qty: 20 0RF aspirin [Darshana Low Dose Aspirin] 81 mg tablet,delayed release (DR/EC) 81 mg PO DAILY Qty: 90 1RF ergocalciferol (vitamin D2) 1,250 mcg (50,000 unit) capsule 1,250 mcg PO QMONTH Qty: 14 1RF ferrous sulfate [Feosol] 325 mg (65 mg iron) tablet 325 mg PO TID Qty: 90 3RF gabapentin 800 mg tablet See Rx Instructions .ROUTE .COMPLEX Qty: 120 0RF Dose Instruction: TAKE 1 TABLET BY MOUTH 4 TIMES A DAY Rx Instructions: TAKE 1 TABLET BY MOUTH 4 TIMES A DAY citalopram 20 mg tablet See Rx Instructions .ROUTE .COMPLEX Qty: 90 2RF Dose Instruction: TAKE 1 TABLET BY MOUTH EVERY DAY Rx Instructions: TAKE 1 TABLET BY MOUTH EVERY DAY fluconazole 150 mg tablet 150 mg PO DAILY 5 Days Qty: 5 0RF (DME) FreeStyle Laureen 3 Sensor Device See Rx Instructions .Route Qty: 1 3RF Rx Instructions: As directed or bid (DME) FreeStyle Laureen 3 [place] Misc See Rx Instructions .Route Qty: 1 3RF Rx Instructions: As directed or bid magnesium oxide 400 mg (241.3 mg magnesium) tablet See Rx Instructions .ROUTE .COMPLEX Qty: 90 1RF Dose Instruction: TAKE 1 TABLET BY MOUTH EVERY DAY Rx Instructions: TAKE 1 TABLET BY MOUTH EVERY DAY insulin glargine [Lantus Solostar U-100 Insulin] 100 unit/mL (3 mL) insulin pen See Rx Instructions .ROUTE .COMPLEX Qty: 45 1RF Dose Instruction: INJECT 82 UNITS UNDER THE SKIN TWICE A DAY Rx Instructions: INJECT 82 UNITS UNDER THE SKIN TWICE A DAY levothyroxine 200 mcg tablet See Rx Instructions .ROUTE .COMPLEX Qty: 90 0RF Dose Instruction: TAKE 1 TABLET BY MOUTH ONCE DAILY FOR THYROID (THIS IS VERY IMPORTANT NOT TO SKIP) Rx Instructions: TAKE 1 TABLET BY MOUTH ONCE DAILY FOR THYROID (THIS IS VERY IMPORTANT NOT TO SKIP) nystatin 100,000 unit/gram powder See Rx Instructions .ROUTE .COMPLEX Qty: 60 0RF Dose Instruction: 1 APPLICATION TOPICALLY TWICE A DAY FOR YEAST UNDER BREAST Rx Instructions: 1 APPLICATION TOPICALLY TWICE A DAY FOR YEAST UNDER BREAST amitriptyline 50 mg tablet See Rx Instructions .ROUTE .COMPLEX Qty: 90 1RF Dose Instruction: TAKE 1 TABLET BY MOUTH EVERY DAY Rx Instructions: TAKE 1 TABLET BY MOUTH EVERY DAY bupropion HCl 150 mg tablet sustained-release 12 hr 150 mg PO BID Qty: 180 2RF spironolactone 25 mg tablet See Rx Instructions .ROUTE .COMPLEX Qty: 90 1RF Dose Instruction: TAKE 1 TABLET BY MOUTH EVERY DAY Rx Instructions: TAKE 1 TABLET BY MOUTH EVERY DAY allopurinol 100 mg tablet See Rx Instructions .ROUTE .COMPLEX Qty: 90 1RF Dose Instruction: TAKE 1 TABLET BY MOUTH EVERY DAY Rx Instructions: TAKE 1 TABLET BY MOUTH EVERY DAY pramipexole 0.5 mg tablet See Rx Instructions .ROUTE .COMPLEX Qty: 90 1RF Dose Instruction: TAKE 1 TABLET BY MOUTH EVERY DAY Rx Instructions: TAKE 1 TABLET BY MOUTH EVERY DAY atorvastatin 80 mg tablet See Rx Instructions .ROUTE .COMPLEX Qty: 90 1RF Dose Instruction: TAKE 1 TABLET BY MOUTH AT BEDTIME NIGHTLY FOR CHOLESTEROL Rx Instructions: TAKE 1 TABLET BY MOUTH AT BEDTIME NIGHTLY FOR CHOLESTEROL lisinopril 40 mg tablet See Rx Instructions .ROUTE .COMPLEX Qty: 90 1RF Dose Instruction: TAKE 1 TABLET BY MOUTH EVERY DAY FOR HYPERTENSION Rx Instructions: TAKE 1 TABLET BY MOUTH EVERY DAY FOR HYPERTENSION pantoprazole 40 mg tablet,delayed release (DR/EC) See Rx Instructions .ROUTE .COMPLEX Qty: 90 1RF Dose Instruction: TAKE 1 TABLET BY MOUTH EVERY DAY Rx Instructions: TAKE 1 TABLET BY MOUTH EVERY DAY furosemide 40 mg tablet See Rx Instructions .ROUTE .COMPLEX Qty: 90 1RF Dose Instruction: TAKE 1 TABLET BY MOUTH EVERY DAY Rx Instructions: TAKE 1 TABLET BY MOUTH EVERY DAY clopidogrel 75 mg tablet See Rx Instructions .ROUTE .COMPLEX Qty: 90 1RF Dose Instruction: TAKE 1 TABLET BY MOUTH EVERY DAY FOR CAD Rx Instructions: TAKE 1 TABLET BY MOUTH EVERY DAY FOR CAD carvedilol 25 mg tablet See Rx Instructions .ROUTE .COMPLEX Qty: 180 1RF Dose Instruction: TAKE 1 TABLET BY MOUTH TWICE A DAY FOR HYPERTENSION WITH A MEAL Rx Instructions: TAKE 1 TABLET BY MOUTH TWICE A DAY FOR HYPERTENSION WITH A MEAL Ozempic 1 mg/dose (4 mg/3 mL) pen injector See Rx Instructions .ROUTE .COMPLEX Qty: 3 2RF Dose Instruction: INJECT 1 MG SUBCUTANEOUSLY WEEKLY FOR DIABETES Rx Instructions: INJECT 1 MG SUBCUTANEOUSLY WEEKLY FOR DIABETES Referrals Follow up/Referrals: Ramos Morales APRN [Primary Care Provider] - See instructions Clinical Impressions Clinical Impression: Constipation Print Language Print Language: Polish Discharge ED Provider: Yanet Nickerson General Adult HPI General Stated complaint: unable to use the restroom, vomiting Time Seen by Provider: 04/14/24 15:27 Mode of Arrival: Ambulatory Source of Information: Patient Limitations: No Limitations Description of Symptoms (Recalled from ER Triage Doc. by RN): PATIENT C/O CONSTIPATION, VOMITING, DIZZINESS AND HEADACHE THAT STARTED YESTERDAY. SHE STATES HER LAST BOWEL MOVEMENT WAS AROUND 03/31/24. History of Present Illness HPI narrative: Patient is a 63-year-old female with past medical history hyperlipidemia, CAD status post stent on Plavix, diabetes, depression presenting with abdominal pain, constipation and vomiting. She was seen at urgent care immediately prior to arrival and transferred given symptoms. Notably she has been constipated and has not had a bowel movement since 03/31, was seen on 04/07 for her symptoms which were less severe at that time and had a CT scan showing severe constipation. She was prescribed GoLytely which she states she did try but still has not had any bowel movement and today her symptoms were worse with vomiting and some dizziness described as lightheadedness. Her abdomen also feels more distended. She has a surgical history of prior hysterectomy and bladder mesh placement several years ago. Denies any fevers or chills. She does take hydrocodone 10 mg 4 times daily. Related Data Home Medications ?Medication ?Instructions ?Recorded ?Confirmed blood sugar diagnostic (FreeStyle #10 ea 07/30/21 02/02/24 Lite Strips) Previous Rx's ?Medication ?Instructions ?Recorded linagliptin 5 mg tablet 5 mg PO DAILY Diabetes #90 tabs 01/21/23 hydrocodone 10 mg-acetaminophen 1 tab PO QID PRN pain #60 tabs 08/11/23 325 mg tablet aspirin 81 mg tablet,delayed 81 mg PO DAILY CAD #90 tabs 08/29/23 release (Darshana Low Dose Aspirin) ergocalciferol (vitamin D2) 1,250 1,250 mcg PO QMONTH Supplement #14 08/29/23 mcg (50,000 unit) capsule caps ferrous sulfate 325 mg (65 mg 325 mg PO TID Supplement #90 tabs 08/29/23 iron) tablet (Feosol) gabapentin 800 mg tablet See Rx Instructions .Route 10/13/23 .COMPLEX #120 tabs citalopram 20 mg tablet See Rx Instructions .Route 12/07/23 .COMPLEX #90 tabs insulin lispro 100 unit/mL 15 unit (0.15 mL) SQ BID Diabetes 01/25/24 subcutaneous pen #15 mL blood-glucose meter,continuous #1 ea 01/31/24 (FreeStyle Laureen 3 [place]) blood-glucose sensor (FreeStyle #1 ea 01/31/24 Laureen 3 Sensor device) fluconazole 150 mg tablet 150 mg PO DAILY 5 days #5 tabs 01/31/24 minocycline 100 mg capsule 100 mg PO BID 10 days #20 caps 02/02/24 magnesium oxide 400 mg (241.3 mg See Rx Instructions .Route 02/03/24 magnesium) tablet .COMPLEX #90 tabs insulin glargine 100 unit/mL (3 See Rx Instructions .Route 02/13/24 mL) subcutaneous pen (Lantus .COMPLEX #45 mL Solostar U-100 Insulin) levothyroxine 200 mcg tablet See Rx Instructions .Route 02/13/24 .COMPLEX #90 tabs nystatin 100,000 unit/gram topical See Rx Instructions .Route 02/13/24 powder .COMPLEX #60 grams allopurinol 100 mg tablet See Rx Instructions .Route 03/02/24 .COMPLEX #90 tabs amitriptyline 50 mg tablet See Rx Instructions .Route 03/02/24 .COMPLEX #90 tabs atorvastatin 80 mg tablet See Rx Instructions .Route 03/02/24 .COMPLEX #90 tabs bupropion HCl 150 mg tablet,12 hr 150 mg PO BID #180 ea 03/02/24 sustained-release carvedilol 25 mg tablet See Rx Instructions .Route 03/02/24 .COMPLEX #180 tabs clopidogrel 75 mg tablet See Rx Instructions .Route 03/02/24 .COMPLEX #90 tabs furosemide 40 mg tablet See Rx Instructions .Route 03/02/24 .COMPLEX #90 tabs lisinopril 40 mg tablet See Rx Instructions .Route 03/02/24 .COMPLEX #90 tabs pantoprazole 40 mg tablet,delayed See Rx Instructions .Route 03/02/24 release .COMPLEX #90 tabs pramipexole 0.5 mg tablet See Rx Instructions .Route 03/02/24 .COMPLEX #90 tabs spironolactone 25 mg tablet See Rx Instructions .Route 03/02/24 .COMPLEX #90 tabs semaglutide 1 mg/dose (4 mg/3 mL) See Rx Instructions .Route 04/13/24 subcutaneous pen injector (Ozempic) .COMPLEX #3 mL Allergies Allergy/AdvReac Type Severity Reaction Status Date / Time canagliflozin [From Invokana] Allergy Severe kidney Verified 02/02/24 08:58 issues [facility] Disclaimer: The information contained in this section may have been updated after the patient was seen, as this information can be updated by other users. Medical History Elevated left ventricular end-diastolic pressure (LVEDP) Edema of both lower extremities Syncope Abnormal result of cardiovascular function study Typical angina Arthritis GERD (gastroesophageal reflux disease) Depression COPD (chronic obstructive pulmonary disease) Arrhythmia Hyperlipidemia Surgical History History of cancer surgery H/O total hysterectomy Hx of colonoscopy Family History Other Cancer Coronary artery disease Diabetes Heart attack Hypertension Stroke Social History Smoking Status: Current every day smoker tobacco type: cigarettes alcohol intake: never substance use type: denies use current occupational status: unemployed and disabled Travel in the last 8 weeks: None household members: spouse housing: house Other Medical History Have you received the Pneumonia Vaccine: No ROS Obtained: Yes Systems reviewed as appropriate & no additional complaints except as documented Physical Exam General General appearance: alert and in no apparent distress Head Head exam: atraumatic and normocephalic Chest Chest inspection: Present normal inspection and symmetric chest wall rise Respiratory Respiratory exam: Present normal lung sounds bilaterally; Absent respiratory distress Cardiovascular Cardiovascular exam: Present regular rate and normal rhythm Abdominal Exam Abdominal exam: Present soft, distention, tenderness (To palpation throughout especially in the lower abdomen, palpably feels full) and hypoactive bowel sounds Neurological Exam Neurological exam: Present alert and oriented X3 Skin Skin exam: Present warm and dry Medical Decision Making Medical Records Medical records reviewed: Yes I reviewed the patient's medical records. Screening: Per USPSTF and CDC recommendations, given the prevalence of disease in our region, it is our hospital?s policy to screen for HIV and viral Hepatitis for all patients aged 18 and over and those with ongoing risk factors. Salty Inquiry Pt receiving controlled substance: No Vital Signs: 04/14/24 15:15 04/14/24 15:38 04/14/24 16:01 Temperature 98.0 F Temperature Source Oral Pulse Rate 98 H 91 H Pulse Rate [Left Brachial] 96 H Respiratory Rate 18 18 16 Blood Pressure 89/67 L 190/82 H Blood Pressure [Left Arm] 114/93 H Blood Pressure Mean 74 118 Blood Pressure Mean [Left Arm] 100 Blood Pressure Source [Left Arm] Automatic Cuff Blood Pressure Position [Left Arm] Sitting 02 Sat by Pulse Oximetry 99 99 98 Oxygen Delivery Method Room Air 04/14/24 16:31 04/14/24 17:01 Temperature Temperature Source Pulse Rate 90 61 Pulse Rate [Left Brachial] Respiratory Rate 18 Blood Pressure 181/75 H 194/107 H Blood Pressure [Left Arm] Blood Pressure Mean 110 Blood Pressure Mean [Left Arm] Blood Pressure Source [Left Arm] Blood Pressure Position [Left Arm] 02 Sat by Pulse Oximetry 95 95 Oxygen Delivery Method Room Air Lab Data Lab results reviewed: Yes I reviewed the patient's lab results. Lab Results 04/14/24 15:46: WBC 11.5 H, RBC 4.54, Hgb 14.1, Hct 40.8, MCV 90.0, MCH 31.1, MCHC 34.6, RDW 14.2, Plt Count 300, MPV 7.3 L, Neut % (Auto) 68.3, Lymph % (Auto) 24.8, [place] % (Auto) 3.9, Eos % (Auto) 1.8, Baso % (Auto) 1.0, Neut # (Auto) 7.8, Lymph # (Auto) 2.8, [place] # (Auto) 0.5, Eos # (Auto) 0.2, Baso # (Auto) 0.1, Sodium 133 L, Potassium 4.1, Chloride 100, Carbon Dioxide 24, Anion Gap 13.1, BUN 18 H, Creatinine 0.70, Estimated Creat Clear 69, Estimated GFR 85, Est GFR ( Amer) 103, Glucose 328 H, Lactate 1.4, Calcium 9.4, Total Bilirubin 0.6, AST 32, ALT 27, Alkaline Phosphatase 113, Total Protein 8.0, Albumin 4.5, Globulin 3.5 H, Albumin/Globulin Ratio 1.3, Lipase 42 04/14/24 15:46 04/14/24 15:46 Orders (Tests/Meds): ED MEDICATIONS Generic Name Dose Route Start Last Admin Trade Name Freq PRN Reason Stop Dose Admin Gabapentin 800 mg 04/14/24 18:32 Gabapentin 800mg Tablet PO 04/14/24 18:33 ONCE ONE Magnesium Citrate 10 oz 04/14/24 18:30 Magnesium Citrate 10oz Bottle PO 04/15/24 06:31 Q6H MITUL Sodium Chloride 10 ml 04/14/24 16:20 04/14/24 16:21 Sodium Chloride 0.9% 10ml Syr (Rad Only) IV 05/14/24 16:19 10 ml NEEDED PRN Administration Maintain IV Site Discontinued Medications Generic Name Dose Route Start Last Admin Trade Name Freq PRN Reason Stop Dose Admin Sodium Chloride 1,000 mls @ 999 mls/hr 04/14/24 15:38 04/14/24 15:54 Sod Chlor 0.9% 1000ml Bag IV 04/14/24 16:38 999 mls/hr .Q1H1M ONE Administration Iopamidol 75 ml 04/14/24 16:20 04/14/24 16:21 Iopamidol-370 (76%);100ml Bottle IV 04/14/24 16:21 75 ml ONCE ONE Administration Morphine Sulfate 4 mg 04/14/24 15:38 04/14/24 15:52 Morphine 2mg/Ml Syringe IV 04/14/24 15:39 4 mg ONCE ONE Administration Ondansetron HCl 4 mg 04/14/24 15:38 04/14/24 15:52 Ondansetron 4mg/2ml Vial IV 04/14/24 15:39 4 mg ONCE ONE Administration Sodium Phosphate 133 ml 04/14/24 17:01 04/14/24 17:25 Sodium Phos/Biphosphate Fleet 133ml Enema RC 04/14/24 17:02 133 ml ONCE ONE Administration ORDERS Category Date Time Status CT abdomen pelvis w con Stat Cat Scan 04/14/24 15:38 Completed Complete Blood Count Auto Diff [facility] Lab 04/15/24 06:00 Ordered Complete Blood Count Auto Diff Stat Lab 04/14/24 15:46 Completed Comprehensive Metabolic Panel [facility] Lab 04/15/24 06:00 Ordered Comprehensive Metabolic Panel Stat Lab 04/14/24 15:46 Completed Lactic Acid Stat Lab 04/14/24 15:46 Completed Lipase Stat Lab 04/14/24 15:46 Completed Magnesium [facility] Lab 04/15/24 06:00 Ordered Urinalysis and Microscopic Stat Lab 04/14/24 15:38 Ordered Medical Decision Narrative: Patient is a 63-year-old female with past medical history CAD status post PCI on Plavix, hypertension, diabetes, hyperlipidemia, chronic pain for which she takes hydrocodone 4 times a day presenting with abdominal pain, constipation now with nausea and vomiting. Has not had a bowel movement in 2 weeks, was seen on the with a CT showing severe constipation. She is hemodynamically stable but with an abdomen that is palpably distended that is diffusely tender throughout, holding emesis bag. She was seen immediately prior to arrival to the ER and our urgent care and referred over given symptoms and concern that she may have need of imaging. Given symptoms I do have concern for possible acute abdominal process including constipation, bowel obstruction, diverticulitis and will obtain labs and imaging for further evaluation. CBC and CMP nonactionable though she does have some hyperglycemia. Lipase negative. Lactate negative. CT abdomen pelvis showing mild constipation and possible pancreatic and common bile ductal dilation measuring 12 mm. Patient does have a history of gallstones. Radiology is recommending right upper quadrant ultrasound. I do not visualize specifically any gallstones and again LFTs and pancreatic function normal. We do not have the capability of obtaining right upper quadrant ultrasound at this time as radiology is not on-call this weekend. I did however discuss this with Dr. Harkins on-call for surgery who I discussed case and imaging with and he recommends that given normal LFTs and generalized pain symptoms more likely consistent with constipation and they could potentially obtain ultrasound tomorrow or continue to monitor for need at that time but he is aware patient at this time, will defer formal ultrasound. We did provide patient with Zofran and morphine as well as enema. Enema did not produce large bowel movement and fecal material is not in reachable area for disimpaction. Patient is adamant that she truly has not had a bowel movement in 2 weeks and feel this could be contributed by her hydrocodone that she takes for pain and no motility agents. She does have stool throughout her colon and given her vomiting feel she could benefit from bowel cleanout and will place NG tube. Spoke with Dr. Pierre with hospitalist service regarding this and he is agreeable with admission at this time. Critical Care Critical Care Time Critical Care Time: No
[2024-04-14] MEDS: MORPHINE 2MG/ML SYRINGE 4 MG IV (15:52)
[2024-04-14] MEDS: ONDANSETRON 4MG/2ML VIAL 4 MG IV (15:52)
[2024-04-14] MEDS: 0.9 % SODIUM CHLORIDE 1000ML 1,000 ML 999 ML IV (15:54)
[2024-04-14 15:59] LABS: Basophils # 0.1 K/mm3 (0-0.2); Eosinophils # 0.2 K/mm3 (0.0-0.4); Eosinophils % 1.8 % (0.1-12.0); Hematocrit 40.8 % (37.0-47.0); Hemoglobin 14.1 g/dL (12.2-16.2); Lymphocytes # 2.8 K/mm3 (0.7-4.5); Lymphocytes % 24.8 % (10-50); Mean Corpuscular HGB Conc 34.6 g/dL (31.8-35.4); Mean Corpuscular Hemoglobin 31.1 pg (27.0-31.2); Mean Platelet Volume 7.3 fl (7.4-10.4); Monocytes # 0.5 K/mm3 (0.1-1.0); Monocytes % 3.9 % (1.7-9.3); Neutrophils # 7.8 K/mm3 (1.8-7.8); Neutrophils % 68.3 % (37.0-80.0); Platelet Count 300 K/mm3 (142-424); Red Blood Count 4.54 M/mm3 (4.20-5.40); Red Cell Distribution Width 14.2 % (11.5-17.5); White Blood Count 11.5 K/mm3 (4.8-10.8)
[2024-04-14 16:05] LABS: Alanine Aminotransferase 27 U/L (12-78); Albumin Level 4.5 g/dl (3.5-5.0); Albumin/Globulin Ratio 1.3 (1.1-1.8); Alkaline Phosphatase 113 U/L (38-126); Anion Gap 13.1 mEq/L (5-15); Aspartate Amino Transferase 32 U/L (14-36); Bilirubin,Total 0.6 mg/dl (0.2-1.3); Blood Urea Nitrogen 18 mg/dl (7-17); Calcium 9.4 mg/dl (8.4-10.2); Carbon Dioxide 24 mmol/L (22.0-30.0); Chloride 100 mmol/L (98-107); Creatinine Clearance Estimated 69 mL/min (50-200); Estimated Glomerular Filt Rate 85 ml/min (>60); GFR (African American) 103 ML/MIN (>60); Globulin 3.5 g/dL (1.3-3.2); Glucose 328 mg/dl (74-100); Lactic Acid 1.4 mmol/L (0.7-2.1); Lipase 42 U/L (23-300); Potassium 4.1 mmoL/L (3.5-5.1); Sodium 133 mmol/L (136-145)
--- NOTE | 2024-04-14 16:16 | PC.NURSE ---
Pt gone to CT via stretcher
[2024-04-14] MEDS: IOPAMIDOL-370 (76%);100ML BOTTLE 75 ML IV (16:21)
[2024-04-14] MEDS: SODIUM CHLORIDE 0.9% 10ML SYR (RAD ONLY) 10 ML IV (16:21)
[2024-04-14] MEDS: SODIUM PHOS/BIPHOSPHATE FLEET 133ML ENEMA 133 ML RC (17:25)
--- NOTE | 2024-04-14 18:18 | PC.NURSE ---
ivonne gallegos for er md
--- NOTE | 2024-04-14 18:25 | PC.NURSE ---
Dr. Nickerson speaking with Dr. Pierre about possible pt admission
--- NOTE | 2024-04-14 18:28 | PC.NURSE ---
call made to house wirer helper for bed placement
--- NOTE | 2024-04-14 19:23 | PC.NURSE ---
Report called to AGNIESZKA Moore.
--- NOTE | 2024-04-14 19:41 | PC.NURSE ---
Patient arrived to floor via wheelchair from ED at 19:38.
[2024-04-14] MEDS: MAGNESIUM CITRATE 10OZ BOTTLE 10 OZ PO (21:15)
[2024-04-14] MEDS: GABAPENTIN 800MG TABLET 800 MG PO (21:15)
--- NOTE | 2024-04-14 21:27 | EXP.HP ---
History of Present Illness *Admission Date: 04/14/24 *Reason for visit:: Constipation *History of present illness: This is a 63-year-old female with a past medical history of CAD, tobacco use disorder, hypertension, hyperlipidemia, chronic back pain who presents emergency department today with complaints of constipation. States that she has not had a good bowel movement approximately 3 weeks. States that she has had intermittent vomiting but has been able to tolerate some p.o. intake over the last couple weeks. States that she has had a flatus but that also has stopped up to approximately 3 days ago. Denies any diarrhea. Does endorse crampy abdominal pain. States that she has been on Ozempic for approximately 1 year and also takes chronic opiates for her back pain. States that she has never had this significant of constipation with her Ozempic but does take MiraLAX daily. Emergency department workup notable for biliary and pancreatic duct dilatation within the common bile duct, also mild mural thickening involving the distal duodenum and duodenal jejunal junction likely secondary to incomplete distention or inflammatory versus infiltrative process. Mild constipation noted. Enemas were ordered in the emergency department without improvement in patient's symptoms. Given that she is admitted to the hospital service. [facility] Disclaimer: The information contained in this section may have been updated after the patient was seen, as this information can be updated by other users. Medical History Elevated left ventricular end-diastolic pressure (LVEDP) Edema of both lower extremities Syncope Abnormal result of cardiovascular function study Typical angina Arthritis GERD (gastroesophageal reflux disease) Depression COPD (chronic obstructive pulmonary disease) Arrhythmia Hyperlipidemia Surgical History History of cancer surgery H/O total hysterectomy Hx of colonoscopy Family History Other Cancer Coronary artery disease Diabetes Heart attack Hypertension Stroke Social History (Updated 04/14/24 @ 22:21 by Teresa Rodriguez RN) Smoking Status: Current every day smoker tobacco type: cigarettes alcohol intake: never substance use type: denies use current occupational status: unemployed and disabled Travel in the last 8 weeks: None household members: spouse housing: house Other Medical History Have you received the Pneumonia Vaccine: No Review of Systems Review of Systems Review of systems (narrative): Negative except for HPI Meds Home Medications and Allergies Home Medications ?Medication ?Instructions ?Recorded ?Confirmed ?Type linagliptin 5 mg tablet 5 mg PO DAILY Diabetes #90 tabs 01/21/23 04/14/24 Rx aspirin 81 mg tablet,delayed 81 mg PO DAILY CAD #90 tabs 08/29/23 04/14/24 Rx release (Darshana Low Dose Aspirin) ergocalciferol (vitamin D2) 1,250 1,250 mcg PO QMONTH Supplement #14 08/29/23 04/14/24 Rx mcg (50,000 unit) capsule caps ferrous sulfate 325 mg (65 mg 325 mg PO TID Supplement #90 tabs 08/29/23 04/14/24 Rx iron) tablet (Feosol) insulin lispro 100 unit/mL 15 unit (0.15 mL) SQ BID Diabetes 01/25/24 04/14/24 Rx subcutaneous pen #15 mL allopurinol 100 mg tablet 100 mg PO DAILY 04/14/24 04/14/24 History amitriptyline 50 mg tablet 50 mg PO HS 04/14/24 04/14/24 History atorvastatin 80 mg tablet 40 mg PO HS 04/14/24 04/15/24 History bupropion HCl 150 mg tablet,12 hr 150 mg PO BID 04/14/24 04/15/24 History sustained-release carvedilol 25 mg tablet 12.5 mg PO BID 04/14/24 04/14/24 History citalopram 20 mg tablet 20 mg PO DAILY 04/14/24 04/14/24 History clopidogrel 75 mg tablet 75 mg PO DAILY 04/14/24 04/14/24 History docusate sodium 100 mg capsule 100 mg PO BID PRN Constipation 04/14/24 04/14/24 History furosemide 40 mg tablet 40 mg PO DAILY 04/14/24 04/14/24 History lisinopril 40 mg tablet 40 mg PO HS 04/14/24 04/14/24 History magnesium oxide 400 mg (241.3 mg 400 mg PO DAILY 04/14/24 04/14/24 History magnesium) tablet pramipexole 0.5 mg tablet 0.5 mg PO DAILY 04/14/24 04/14/24 History gabapentin 800 mg tablet 800 mg PO Q6H 04/15/24 04/15/24 History hydrocodone 10 mg-acetaminophen 1 tab PO Q6H 04/15/24 04/15/24 History 325 mg tablet insulin glargine 100 unit/mL (3 100 unit SQ BID 04/15/24 04/15/24 History mL) subcutaneous pen (Lantus Solostar U-100 Insulin) levothyroxine 200 mcg tablet 200 mcg PO DAILY 04/15/24 04/15/24 History pantoprazole 40 mg tablet,delayed 40 mg PO HS 04/15/24 04/15/24 History release semaglutide 1 mg/dose (4 mg/3 mL) 1 mg SQ WEEKLY 04/15/24 04/15/24 History subcutaneous pen injector (Ozempic) spironolactone 25 mg tablet 25 mg PO DAILY 04/15/24 04/15/24 History New Prescriptions to Start Prescriptions: Allergies Allergy/AdvReac Type Severity Reaction Status Date / Time canagliflozin [[facility] Allergy Severe kidney Verified 02/02/24 08:58 issues Exam Data for Last 24 hours Vital signs and Labs for Last 24 Hours: Temp Pulse Resp BP Pulse Ox O2 Del Method 98.4 F 91 H 16 135/57 L 99 Room Air 04/14/24 19:56 04/14/24 19:56 04/14/24 19:56 04/14/24 19:56 04/14/24 19:56 04/14/24 19:56 Laboratory Results - last 24 hr 04/14/24 15:46: WBC 11.5 H, RBC 4.54, Hgb 14.1, Hct 40.8, MCV 90.0, MCH 31.1, MCHC 34.6, RDW 14.2, Plt Count 300, MPV 7.3 L, Neut % (Auto) 68.3, Lymph % (Auto) 24.8, [place] % (Auto) 3.9, Eos % (Auto) 1.8, Baso % (Auto) 1.0, Neut # (Auto) 7.8, Lymph # (Auto) 2.8, [place] # (Auto) 0.5, Eos # (Auto) 0.2, Baso # (Auto) 0.1, Sodium 133 L, Potassium 4.1, Chloride 100, Carbon Dioxide 24, Anion Gap 13.1, BUN 18 H, Creatinine 0.70, Estimated Creat Clear 69, Estimated GFR 85, Est GFR ( Amer) 103, Glucose 328 H, Lactate 1.4, Calcium 9.4, Total Bilirubin 0.6, AST 32, ALT 27, Alkaline Phosphatase 113, Total Protein 8.0, Albumin 4.5, Globulin 3.5 H, Albumin/Globulin Ratio 1.3, Lipase 42 I & O for Last 24 hours: Intake & Output 04/11/24 04/12/24 04/13/24 04/14/24 23:59 23:59 23:59 23:59 Weight 73.89 kg Constitutional Constitutional: no acute distress *Routine HEENT Exam Head: Present normocephalic Eye: Present EOMI and PERRL ENT: Present mucous membranes moist *Routine Neck Exam Neck: Present supple; Absent lymphadenopathy *Routine Respiratory Exam Respiratory: Present CTA bilaterally *Routine Cardiovascular Exam Cardiovascular: Present RRR *Routine Abdominal Exam Abdominal: Present soft Comments: Abdomen soft and compressible but patient complains of TTP. Hypoactive bowel sounds in all 4 quadrants *Routine Rectal Exam Rectal:: deferred *Routine Genitalia Exam Genitalia:: deferred *Routine Extremities Exam Extremities: Absent cyanosis, clubbing or edema *Routine Skin Exam Skin: Present warm; Absent rash *Routine Neurological Exam Neurological: Present alert and oriented X3 Assessment and Plan *Assessment and plan (1) Constipation: Status: Acute Qualifiers: Constipation type: drug induced constipation Qualified Code(s): K59.03 - Drug induced constipation Category: Medical Code(s): K59.00 - Constipation, unspecified (2) T2DM (type 2 diabetes mellitus): Status: Acute Qualifiers: Diabetes mellitus complication detail: with neuropathic arthropathy Diabetes mellitus complication status: with diabetic arthropathy Diabetes mellitus terminal gauger insulin use: with terminal gauger use Qualified Code(s): E11.610 - Type 2 diabetes mellitus with diabetic neuropathic arthropathy; Z79.4 - long term care social worker (current) use of insulin Category: Medical Code(s): E11.9 - Type 2 diabetes mellitus without complications (3) Chronic pain: Status: Acute Qualifiers: Chronic pain type: other chronic pain Qualified Code(s): G89.29 - Other chronic pain Category: Medical Code(s): G89.29 - Other chronic pain (4) Hyperlipidemia: Status: Acute Qualifiers: Hyperlipidemia type: unspecified Qualified Code(s): E78.5 - Hyperlipidemia, unspecified Category: Medical Code(s): E78.5 - Hyperlipidemia, unspecified (5) Hypertension: Status: Acute Qualifiers: Hypertension type: unspecified Qualified Code(s): I10 - Essential (primary) hypertension Category: Medical Code(s): I10 - Essential (primary) hypertension (6) CAD (coronary atherosclerotic disease): Status: Acute Qualifiers: Associated angina: with other forms of angina Coronary Disease-Associated Artery/Lesion type: [place] artery [place] vs. transplanted heart: [place] heart Qualified Code(s): I25.118 - Atherosclerotic heart disease of [place] coronary artery with other forms of angina pectoris Category: Medical Code(s): I25.10 - Atherosclerotic heart disease of [place] coronary artery without angina pectoris Plan Discussed case with ER physician, request admission for cleanout given prolonged extent of no bowel movement. Medicine agreed to admit. Will initiate aggressive bowel regimen. NG placed. Problems addressed as follows: #Constipation Likely slow transit and obstipation given chronic opioid usage Patient initially ordered for NG tube placement for intake of osmotic's but will trial patient on oral mag citrate 6 hours by mouth Initiate NG tube the patient unable to tolerate drinking fluids Limit narcotics Serial abdominal exams #T2DM Continue sliding scale insulin #HTN #HLD #CAD #Chronic pain Resume home medications once appropriate. Holding in the acute phase given slow transit bowels. Monitor for toxicity with resumption given high-dose opiates and gabapentin Rounded on patient after nurse practitioner. Personally examined and interviewed patient. Agree with exam findings and care plan as documented.
[2024-04-14 22:38] LABS: POC Glucose,Bedside 245 (70-110)
[2024-04-14] MEDS: humaLOG 100 UNITS/ML 10ML VIAL (SSI) SUBCUT (23:29)
[2024-04-14] MEDS: MORPHINE 2MG/ML SYRINGE 1 MG IV (23:30)
[2024-04-15] VITALS: BP 151/57; PULSE 123; RESP 20; TEMP 36.4; O2SAT 100
--- NOTE | 2024-04-15 00:03 | XR_ITS ---
PROCEDURE INFORMATION: Exam: XR Abdomen Exam date and time: 04/15/2024 12:32 AM Age: 63 years old Clinical indication: Device placement; Gi device; Nasogastric tube; Additional info: Ng tube insertion confirmation TECHNIQUE: Imaging protocol: Radiologic exam of the abdomen. Views: Frontal supine view of the abdomen. 1 View. COMPARISON: CT ABDOMEN PELVIS W CON 04/14/2024 4:16 PM FINDINGS: Tubes, catheters and devices: Nasogastric tube tip projected over gastric antrum. Gastrointestinal tract: Normal. No bowel dilation. Bones/joints: Unremarkable. IMPRESSION: Nasogastric tube grossly in place.
--- NOTE | 2024-04-15 00:08 | PC.NURSE ---
Addendum entered by Teresa Rodriguez RN 04/15/24 00:46: Right nare insertion Original Note: A 14 Fr nasogatric tube was inserted at around 23:45; it is marked temporarily at 55 cm. Patient was guided through the insertion, taking sips of water as the tube was pushed through; she tolerated the procedure well. A whooshing sound was heard in the upper abdominal quadrant while injecting air. A STAT KUB was ordered to confirm the placement. Late Entry (21:15): Patient attempted to consume 10 oz of the ordered magnesium citrate to promote a bowel movement prior to NG tube insertion. Patient refused to take any more of the solution by mouth after drinking approximately half of it due to it making her feel nauseous and like it was coming up out of her throat. At around 22:00, patient did end up having an urgent, small, liquid bowel movement.
--- NOTE | 2024-04-15 00:25 | PC.NURSE ---
Addendum entered by Teresa Rodriguez RN 04/15/24 01:25: KUB taken at around 00:03, imaging results are still pending review thus at this time. Original Note: Santana REGALADON was paged (at 00:18) regarding the NG tube insertion. She stated that after the KUB is read and placement is confirmed, the patient is to be given the scheduled magnesium citrate solution through her NG tube. The tube will be clamped for 1 hour after administration of the solution, and will be unclamped afterwards and hooked to low, intermittent suction. Radiology was paged at this time regarding the pending STAT KUB. Shari from radiology stated that after she is finished with tasks in the ER, she will be heading to the floor to perform the imaging.
--- NOTE | 2024-04-15 01:28 | PC.NURSE ---
Addendum entered by Teresa Rodriguez RN 04/15/24 01:47: KUB imaging results were read at 01:32. NG tube to the right nare was noted to be grossly in place at 55 cm. Original Note: KUB taken at around 00:30, imaging results are still pending review thus at this time. Original Note: Santana LAKEISHA was paged (at 00:18) regarding the NG tube insertion. She stated that after the KUB is read and placement is confirmed, the patient is to be given the scheduled magnesium citrate solution through her NG tube. The tube will be clamped for 1 hour after administration of the solution, and will be unclamped afterwards and hooked to low, intermittent suction. Radiology was paged at this time (00:15) regarding the pending STAT KUB. Shari from radiology stated that after she is finished with tasks in the ER, she will be heading to the floor to perform the imaging.
[2024-04-15] MEDS: MAGNESIUM CITRATE 10OZ BOTTLE 10 OZ PO ×3 (01:52→14:49)
[2024-04-15] MEDS: METOCLOPRAMIDE HCL 10MG/2ML VIAL 10 MG IVP (01:52)
[2024-04-15] MEDS: humaLOG 100 UNITS/ML 10ML VIAL (SSI) SUBCUT ×4 (02:28→20:38)
[2024-04-15 02:39] LABS: POC Glucose,Bedside 209 (70-110)
[2024-04-15 04:00] VITALS: BP 106/61; PULSE 81; RESP 18; TEMP 36.7; O2SAT 98; BMI 30.6
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
[2024-04-15 07:16] LABS: Albumin Level 3.6 g/dl (3.5-5.0); Chloride 103 mmol/L (98-107); Potassium 3.8 mmoL/L (3.5-5.1); Sodium 135 mmol/L (136-145)
[2024-04-15 07:18] LABS: Alanine Aminotransferase 22 U/L (12-78); Aspartate Amino Transferase 31 U/L (14-36); Bilirubin,Total 0.5 mg/dl (0.2-1.3); Blood Urea Nitrogen 18 mg/dl (7-17); Creatinine Clearance Estimated 70 mL/min (50-200); Estimated Glomerular Filt Rate 85 ml/min (>60); GFR (African American) 103 ML/MIN (>60)
[2024-04-15 07:19] LABS: Albumin/Globulin Ratio 1.3 (1.1-1.8); Alkaline Phosphatase 93 U/L (38-126); Anion Gap 7.8 mEq/L (5-15); Calcium 8.6 mg/dl (8.4-10.2); Carbon Dioxide 28 mmol/L (22.0-30.0); Globulin 2.8 g/dL (1.3-3.2); Glucose 191 mg/dl (74-100); Total Protein,Serum 6.4 g/dl (6.3-8.2)
[2024-04-15 07:23] LABS: Basophils # 0.1 K/mm3 (0-0.2); Basophils % 0.8 % (0.1-2.0); Eosinophils # 0.2 K/mm3 (0.0-0.4); Eosinophils % 2.8 % (0.1-12.0); Hematocrit 35.5 % (37.0-47.0); Lymphocytes # 3.1 K/mm3 (0.7-4.5); Lymphocytes % 35.5 % (10-50); Mean Corpuscular HGB Conc 34.6 g/dL (31.8-35.4); Mean Corpuscular Hemoglobin 30.7 pg (27.0-31.2); Mean Corpuscular Volume 88.7 fl (81-99); Mean Platelet Volume 7.4 fl (7.4-10.4); Monocytes # 0.5 K/mm3 (0.1-1.0); Monocytes % 5.7 % (1.7-9.3); Neutrophils # 4.8 K/mm3 (1.8-7.8); Neutrophils % 55.3 % (37.0-80.0); Platelet Count 270 K/mm3 (142-424); Red Cell Distribution Width 14.3 % (11.5-17.5); White Blood Count 8.7 K/mm3 (4.8-10.8)
[2024-04-15 07:35] VITALS: BP 140/76; PULSE 84; RESP 19; TEMP 36.8; O2SAT 97
[2024-04-15 07:46] LABS: Hemoglobin 12.3 g/dL (12.2-16.2)
[2024-04-15 08:11] LABS: POC Glucose,Bedside 222 (70-110)
[2024-04-15] MEDS: HYDROCODONE 10MG/APAP 325MG TAB 1 TAB PO ×2 (08:57→14:34)
[2024-04-15] MEDS: GABAPENTIN 800MG TABLET 800 MG PO ×3 (09:29→20:09)
[2024-04-15] MEDS: CLOPIDOGREL 75MG TAB 75 MG PO (09:29)
[2024-04-15] MEDS: SENNA 8.6MG TABLET 17.2 MG PO ×2 (09:29→20:10)
[2024-04-15] MEDS: ALLOPURINOL 100MG TABLET 100 MG PO (09:29)
[2024-04-15] MEDS: MAGNESIUM OXIDE 400MG TABLET 400 MG PO (09:29)
[2024-04-15] MEDS: buPROPion HCl SR 150MG TAB 150 MG PO (09:29)
[2024-04-15] MEDS: ASPIRIN EC 81MG TABLET 81 MG PO (09:29)
[2024-04-15] MEDS: CITALOPRAM 20MG TABLET 20 MG PO (09:29)
[2024-04-15] MEDS: LEVOTHYROXINE 88MCG (0.088MG) TAB 88 MCG PO (09:29)
--- NOTE | 2024-04-15 12:32 | PC.NURSE ---
NG TUBE REMOVED, PT TOLERATED WELL.
[2024-04-15 14:16] LABS: POC Glucose,Bedside 375 (70-110)
--- NOTE | 2024-04-15 14:34 | EXP.ACUTE.PN ---
Subjective *Date: 04/15/24 *Time: 15:53 Interval history: Morning rounds, patient passing foul-smelling gas. Denies any lauren emesis. Still having some mild nausea. Interested in trying p.o. fluids. Still has mild abdominal discomfort. 1 small bowel movement overnight, no significant relief however in symptoms. On room air Medical Exam Vital signs and Labs for Last 24 Hours: Vital Signs Temp Pulse Pulse Resp BP BP Pulse Ox 04/15/24 13:00 04/15/24 11:00 04/15/24 09:00 04/15/24 08:00 04/15/24 07:35 98.2 F 84 19 140/76 97 04/15/24 06:50 04/15/24 05:00 04/15/24 04:00 98.1 F 81 18 106/61 L 98 04/15/24 03:00 04/15/24 01:00 04/15/24 00:00 97.5 F L 123 H 20 151/57 H 100 04/14/24 23:00 04/14/24 21:00 04/14/24 20:00 91 H 99 04/14/24 19:56 98.4 F 91 H 16 135/57 L 99 04/14/24 19:26 98.3 F 91 H 17 117/74 04/14/24 19:24 65 117/74 100 04/14/24 17:01 61 194/107 H 95 04/14/24 16:31 90 18 181/75 H 95 04/14/24 16:01 91 H 16 190/82 H 98 04/14/24 15:38 98 H 18 89/67 L 99 04/14/24 15:15 98.0 F 96 H 18 114/93 H 99 O2 Del Method 04/15/24 13:00 Room Air 04/15/24 11:00 Room Air 04/15/24 09:00 Room Air 04/15/24 08:00 Room Air 04/15/24 07:35 Room Air 04/15/24 06:50 Room Air 04/15/24 05:00 Room Air 04/15/24 04:00 Room Air 04/15/24 03:00 Room Air 04/15/24 01:00 Room Air 04/15/24 00:00 Room Air 04/14/24 23:00 Room Air 04/14/24 21:00 Room Air 04/14/24 20:00 Room Air 04/14/24 19:56 Room Air 04/14/24 19:26 Room Air 04/14/24 19:24 04/14/24 17:01 Room Air 04/14/24 16:31 04/14/24 16:01 04/14/24 15:38 04/14/24 15:15 Room Air Intake and Output 04/14/24 04/15/24 04/15/24 23:59 07:59 15:59 Intake Total 100 / 760 660 / 760 Output Total 200 / 200 0 / 200 Balance -100 / 560 660 / 560 Intake: Intake, Oral Amount 100 / 760 660 / 760 Output: Output, Urine Amount 0 / 0 0 / 0 Output, Gastric Drainage Amount 200 / 200 Right Nare 200 / 200 Other: Number of Unmeasured Voids 1 Number of Bowel Movements 1 1 Weight 73.89 kg 75.474 kg Patient Weight 04/15/24 23:59 Weight 75.474 kg Laboratory Results - last 24 hr 04/14/24 15:46: WBC 11.5 H, RBC 4.54, Hgb 14.1, Hct 40.8, MCV 90.0, MCH 31.1, MCHC 34.6, RDW 14.2, Plt Count 300, MPV 7.3 L, Neut % (Auto) 68.3, Lymph % (Auto) 24.8, [place] % (Auto) 3.9, Eos % (Auto) 1.8, Baso % (Auto) 1.0, Neut # (Auto) 7.8, Lymph # (Auto) 2.8, [place] # (Auto) 0.5, Eos # (Auto) 0.2, Baso # (Auto) 0.1, Sodium 133 L, Potassium 4.1, Chloride 100, Carbon Dioxide 24, Anion Gap 13.1, BUN 18 H, Creatinine 0.70, Estimated Creat Clear 69, Estimated GFR 85, Est GFR ( Amer) 103, Glucose 328 H, Lactate 1.4, Calcium 9.4, Total Bilirubin 0.6, AST 32, ALT 27, Alkaline Phosphatase 113, Total Protein 8.0, Albumin 4.5, Globulin 3.5 H, Albumin/Globulin Ratio 1.3, Lipase 42 04/14/24 22:27: POC Glucose 245 H 04/15/24 02:04: POC Glucose 209 H 04/15/24 05:37: WBC 8.7, RBC 4.00 L, Hgb 12.3 D, Hct 35.5 L, MCV 88.7, MCH 30.7, MCHC 34.6, RDW 14.3, Plt Count 270, MPV 7.4, Neut % (Auto) 55.3, Lymph % (Auto) 35.5, [place] % (Auto) 5.7, Eos % (Auto) 2.8, Baso % (Auto) 0.8, Neut # (Auto) 4.8, Lymph # (Auto) 3.1, [place] # (Auto) 0.5, Eos # (Auto) 0.2, Baso # (Auto) 0.1, Sodium 135 L, Potassium 3.8, Chloride 103, Carbon Dioxide 28, Anion Gap 7.8, BUN 18 H, Creatinine 0.70, Estimated Creat Clear 70, Estimated GFR 85, Est GFR ( Amer) 103, Glucose 191 H D, Calcium 8.6, Magnesium 2.0, Total Bilirubin 0.5, AST 31, ALT 22, Alkaline Phosphatase 93, Total Protein 6.4, Albumin 3.6 D, Globulin 2.8, Albumin/Globulin Ratio 1.3 04/15/24 08:04: POC Glucose 222 H 04/15/24 14:09: POC Glucose 375 H* I & O for Labs for Last 24 Hours: Intake & Output 04/12/24 04/13/24 04/14/24 04/15/24 23:59 23:59 23:59 23:59 Intake Total 760 / 760 Output Total 200 / 200 Balance 560 / 560 Weight 73.89 kg 75.474 kg Constitutional: Present no acute distress, obese, chronically ill appearing and cooperative Head: Present atraumatic and normocephalic ENT: Present normal exam Respiratory: Present normal respiratory effort; Absent rhonchi, wheezes or crackles Cardiac: Present Reg Rate and Rhythm GI: Present soft, distention, tenderness (non focal, mild) and normal bowel sounds Extremities: Present normal inspection and full ROM Skin: Present intact; Absent erythema Neuro: Present Grossly Intact, alert, awake, oriented x 3 and moves all extremities Assessment and Plan *Assessment and plan (1) Constipation: Status: Acute Qualifiers: Constipation type: drug induced constipation Qualified Code(s): K59.03 - Drug induced constipation Category: Medical Code(s): K59.00 - Constipation, unspecified (2) T2DM (type 2 diabetes mellitus): Status: Acute Qualifiers: Diabetes mellitus complication detail: with neuropathic arthropathy Diabetes mellitus complication status: with diabetic arthropathy Diabetes mellitus exterminator insulin use: with exterminator use Qualified Code(s): E11.610 - Type 2 diabetes mellitus with diabetic neuropathic arthropathy; Z79.4 - nursing home (current) use of insulin Category: Medical Code(s): E11.9 - Type 2 diabetes mellitus without complications (3) Chronic pain: Status: Acute Qualifiers: Chronic pain type: other chronic pain Qualified Code(s): G89.29 - Other chronic pain Category: Medical Code(s): G89.29 - Other chronic pain (4) Hyperlipidemia: Status: Acute Qualifiers: Hyperlipidemia type: unspecified Qualified Code(s): E78.5 - Hyperlipidemia, unspecified Category: Medical Code(s): E78.5 - Hyperlipidemia, unspecified (5) Hypertension: Status: Acute Qualifiers: Hypertension type: unspecified Qualified Code(s): I10 - Essential (primary) hypertension Category: Medical Code(s): I10 - Essential (primary) hypertension (6) CAD (coronary atherosclerotic disease): Status: Acute Qualifiers: Associated angina: with other forms of angina Coronary Disease-Associated Artery/Lesion type: [place] artery [place] vs. transplanted heart: [place] heart Qualified Code(s): I25.118 - Atherosclerotic heart disease of [place] coronary artery with other forms of angina pectoris Category: Medical Code(s): I25.10 - Atherosclerotic heart disease of [place] coronary artery without angina pectoris Plan Discussed case with ER physician, request admission for cleanout given prolonged extent of no bowel movement. Medicine agreed to admit. Will initiate aggressive bowel regimen. NG removed on morning rounds. Feeling somewhat better. Advancing diet today. Will evaluate p.o. tolerance. Anticipate discharge tomorrow. Problems addressed as follows: #Constipation, slow transit versus opiate induced constipation -Remove NG. Repeat 10 ounce magnesium citrate today. Initiate stimulant with sennosides 17 mg twice daily. -Advance diet -Goal of improvement in abdominal pain and multiple stools today -Normal white count at 8.7, kidney function and electrolytes normal with BUN 18, creatinine 0.7, potassium 3.8, magnesium 2.0. #T2DM Continue sliding scale insulin, fingersticks ACHS Resume basal insulin glargine at half dose of 50 units twice daily #HTN #HLD #CAD #Chronic pain Resume p.o. RN, counseled patient on cautionary use of pain meds given her constipation likely related to medications -Resume levothyroxine 200 mcg daily for hypothyroid Resume amitriptyline 50 mg nightly, Wellbutrin 150 mg twice daily, carvedilol 12 5 g twice daily citalopram 20 mg daily, Plavix 75 mg daily
[2024-04-15 15:37] VITALS: BP 156/76; PULSE 86; RESP 18; TEMP 36.6; O2SAT 100
--- NOTE | 2024-04-15 18:08 | PC.NURSE ---
PT HAS DONE WELL THIS SIFT. VSS. SHE HAS HAD TWO BM'S THIS SHIFT. ONE SMALL THIS AM AND ONE COPIOUS THIS AFTERNOON AFTER ANOTHER BOTTLE OF MAG CITRATE. NG TUBE WAS PULLED TODAY. TOLERATING DIET WELL. NO NAUSEA OR VOMITING. REMAINS ON ROOM AIR.
[2024-04-15 20:00] VITALS: PULSE 88; RESP 16; O2SAT 98
[2024-04-15] MEDS: ATORVASTATIN 40MG TABLET 40 MG PO (20:10)
[2024-04-15] MEDS: CARVEDILOL 25MG TABLET 12.5 MG PO (20:20)
[2024-04-15] MEDS: AMITRIPTYLINE 50MG TABLET 50 MG PO (20:21)
[2024-04-15 20:38] LABS: POC Glucose,Bedside 274 (70-110)
[2024-04-15] MEDS: INSULIN GLARGINE 100 UNITS/ML 3ML FLEXPEN 50 UNIT SUBCUT (20:39)
[2024-04-15 21:03] VITALS: BP 171/85; PULSE 88; RESP 16; TEMP 36.6; O2SAT 98
[2024-04-16] VITALS: BP 116/66; PULSE 72; RESP 16; TEMP 36.6; O2SAT 94
[2024-04-16 01:30] LABS: POC Glucose,Bedside 143 (70-110)
[2024-04-16 04:00] VITALS: BP 113/72; PULSE 70; RESP 17; TEMP 36.4; O2SAT 96; BMI 30.9
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
[2024-04-16] MEDS: LEVOTHYROXINE 100MCG (0.1MG) TAB 200 MCG PO (06:52)
--- NOTE | 2024-04-16 07:17 | EXP.DC.SUM ---
General Admission date:: 04/14/24 Discharge date: 04/16/24 HPI HPI HPI: This is a 63-year-old female with a past medical history of CAD, tobacco use disorder, hypertension, hyperlipidemia, chronic back pain who presents emergency department today with complaints of constipation. States that she has not had a good bowel movement approximately 3 weeks. States that she has had intermittent vomiting but has been able to tolerate some p.o. intake over the last couple weeks. States that she has had a flatus but that also has stopped up to approximately 3 days ago. Denies any diarrhea. Does endorse crampy abdominal pain. States that she has been on Ozempic for approximately 1 year and also takes chronic opiates for her back pain. States that she has never had this significant of constipation with her Ozempic but does take MiraLAX daily. Emergency department workup notable for biliary and pancreatic duct dilatation within the common bile duct, also mild mural thickening involving the distal duodenum and duodenal jejunal junction likely secondary to incomplete distention or inflammatory versus infiltrative process. Mild constipation noted. Enemas were ordered in the emergency department without improvement in patient's symptoms. Given that she is admitted to the hospital service. Hospital Course Hospital Course Hospital Course: Discussed case with ER physician, request admission for cleanout given prolonged extent of no bowel movement. Medicine agreed to admit. Initiated on aggressive bowel regimen. Began having bowel movements. Slowly advance diet. Able to remove NG initially placed. Given patient's improvement, stable to discharge home on continued bowel regimen. Counseled on adjustment to dose of chronic opiates. Problems addressed as follows: #Constipation, slow transit versus opiate induced constipation -NG placed to administer bowel regimen. Began having bowel movements. Removed NG she was tolerating p.o. intake. Able to advance diet. Bowels cleaned out, had numerous bowel movements and feeling much better as far as distention and pain. White count remain normal. Kidney function normal. Stable to discharge home with addition of bowel regimen to counter her opiate induced constipation. #T2DM: Continue home regimen at discharge. Needs follow-up to evaluate A1c and talk about further adjustments. #HTN #HLD #CAD #Chronic pain # Hypothyroid -Continue home regimen, recommend decreasing dose and using only when having significant pain. - Continue home levothyroxine 200 mcg daily for hypothyroid - Resume amitriptyline 50 mg nightly, Wellbutrin 150 mg twice daily, carvedilol 12 5 g twice daily citalopram 20 mg daily, Plavix 75 mg daily Exam Data for Last 24 hours Vital signs and Labs for Last 24 Hours: Temp Pulse Resp BP Pulse Ox O2 Del Method 97.5 F L 70 17 113/72 96 Room Air 04/16/24 04:00 04/16/24 04:00 04/16/24 04:00 04/16/24 04:00 04/16/24 04:00 04/16/24 05:00 Laboratory Results - last 24 hr 04/15/24 05:37: WBC 8.7, RBC 4.00 L, Hgb 12.3 D, Hct 35.5 L, MCV 88.7, MCH 30.7, MCHC 34.6, RDW 14.3, Plt Count 270, MPV 7.4, Neut % (Auto) 55.3, Lymph % (Auto) 35.5, Sebastian % (Auto) 5.7, Eos % (Auto) 2.8, Baso % (Auto) 0.8, Neut # (Auto) 4.8, Lymph # (Auto) 3.1, Sebastian # (Auto) 0.5, Eos # (Auto) 0.2, Baso # (Auto) 0.1, Sodium 135 L, Potassium 3.8, Chloride 103, Carbon Dioxide 28, Anion Gap 7.8, BUN 18 H, Creatinine 0.70, Estimated Creat Clear 70, Estimated GFR 85, Est GFR ( Amer) 103, Glucose 191 H D, Calcium 8.6, Magnesium 2.0, Total Bilirubin 0.5, AST 31, ALT 22, Alkaline Phosphatase 93, Total Protein 6.4, Albumin 3.6 D, Globulin 2.8, Albumin/Globulin Ratio 1.3 04/15/24 08:04: POC Glucose 222 H 04/15/24 14:09: POC Glucose 375 H* 04/15/24 20:29: POC Glucose 274 H 04/16/24 01:23: POC Glucose 143 H I & O for Last 24 hours: Intake & Output 04/13/24 04/14/24 04/15/24 04/16/24 23:59 23:59 23:59 23:59 Intake Total 1266 / 1488 222 / 222 Output Total 200 / 200 Balance 1066 / 1288 222 / 222 Weight 73.89 kg 75.474 kg 76.294 kg Constitutional Constitutional: no acute distress, obese, chronically ill appearing and cooperative *Routine HEENT Exam Head: Present normocephalic Eye: Present EOMI and PERRL ENT: Present mucous membranes moist *Routine Neck Exam Neck: Present supple; Absent lymphadenopathy *Routine Respiratory Exam Respiratory: Present CTA bilaterally; Absent rhonchi or wheezes *Routine Cardiovascular Exam Cardiovascular: Present RRR *Routine Abdominal Exam Abdominal: Present soft, normoactive bowel sounds, tenderness (Minimal, significantly improved from admission) and distended *Routine Rectal Exam Patient deferred: visual exam *Routine Exam Patient deferred: external exam *Routine Extremities Exam Extremities: Absent cyanosis, clubbing or edema *Routine Skin Exam Skin: Present warm; Absent rash *Routine Neurological Exam Neurological: Present alert, oriented X3 and moving all extremities; Absent altered mental status Results Data Completed and Pending Labs on day of discharge: Labs from last 24 hours 04/16/24 04/15/24 04/15/24 01:23 20:29 14:09 WBC RBC Hgb Hct MCV MCH MCHC RDW Plt Count MPV Neut % (Auto) Lymph % (Auto) Sebastian % (Auto) Eos % (Auto) Baso % (Auto) Neut # (Auto) Lymph # (Auto) Sebastian # (Auto) Eos # (Auto) Baso # (Auto) Sodium Potassium Chloride Carbon Dioxide Anion Gap BUN Creatinine Estimated Creat Clear Estimated GFR Est GFR ( Amer) Glucose POC Glucose 143 H 274 H 375 H* Calcium Magnesium Total Bilirubin AST ALT Alkaline Phosphatase Total Protein Albumin Globulin Albumin/Globulin Ratio 04/15/24 04/15/24 08:04 05:37 WBC 8.7 RBC 4.00 L Hgb 12.3 D Hct 35.5 L MCV 88.7 MCH 30.7 MCHC 34.6 RDW 14.3 Plt Count 270 MPV 7.4 Neut % (Auto) 55.3 Lymph % (Auto) 35.5 Sebastian % (Auto) 5.7 Eos % (Auto) 2.8 Baso % (Auto) 0.8 Neut # (Auto) 4.8 Lymph # (Auto) 3.1 Sebastian # (Auto) 0.5 Eos # (Auto) 0.2 Baso # (Auto) 0.1 Sodium 135 L Potassium 3.8 Chloride 103 Carbon Dioxide 28 Anion Gap 7.8 BUN 18 H Creatinine 0.70 Estimated Creat Clear 70 Estimated GFR 85 Est GFR ( Amer) 103 Glucose 191 H D POC Glucose 222 H Calcium 8.6 Magnesium 2.0 Total Bilirubin 0.5 AST 31 ALT 22 Alkaline Phosphatase 93 Total Protein 6.4 Albumin 3.6 D Globulin 2.8 Albumin/Globulin Ratio 1.3 DS: Diagnosis Discharge Diagnosis (1) Constipation: Status: Acute Code(s): K59.00 - Constipation, unspecified Qualifiers: Constipation type: drug induced constipation Qualified Code(s): K59.03 - Drug induced constipation (2) T2DM (type 2 diabetes mellitus): Status: Acute Code(s): E11.9 - Type 2 diabetes mellitus without complications Qualifiers: Diabetes mellitus complication detail: with neuropathic arthropathy Diabetes mellitus complication status: with diabetic arthropathy 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: with skilled nursing use Qualified Code(s): E11.610 - Type 2 diabetes mellitus with diabetic neuropathic arthropathy; Z79.4 - intermediate (current) use of insulin (3) Chronic pain: Status: Acute Code(s): G89.29 - Other chronic pain Qualifiers: Chronic pain type: other chronic pain Qualified Code(s): G89.29 - Other chronic pain (4) Hyperlipidemia: Status: Acute Code(s): E78.5 - Hyperlipidemia, unspecified Qualifiers: Hyperlipidemia type: unspecified Qualified Code(s): E78.5 - Hyperlipidemia, unspecified (5) Hypertension: Status: Acute Code(s): I10 - Essential (primary) hypertension Qualifiers: Hypertension type: unspecified Qualified Code(s): I10 - Essential (primary) hypertension (6) CAD (coronary atherosclerotic disease): Status: Acute Code(s): I25.10 - Atherosclerotic heart disease of [place] coronary artery without angina pectoris Qualifiers: Associated angina: with other forms of angina Coronary Disease-Associated Artery/Lesion type: [place] artery [place] vs. transplanted heart: [place] heart Qualified Code(s): I25.118 - Atherosclerotic heart disease of [place] coronary artery with other forms of angina pectoris Meds Home Medications and Allergies Home Medications ?Medication ?Instructions ?Recorded ?Confirmed ?Type linagliptin 5 mg tablet 5 mg PO DAILY Diabetes #90 tabs 01/21/23 04/14/24 Rx aspirin 81 mg tablet,delayed 81 mg PO DAILY CAD #90 tabs 08/29/23 04/14/24 Rx release (Darshana Low Dose Aspirin) ergocalciferol (vitamin D2) 1,250 1,250 mcg PO QMONTH Supplement #14 08/29/23 04/14/24 Rx mcg (50,000 unit) capsule caps ferrous sulfate 325 mg (65 mg 325 mg PO TID Supplement #90 tabs 08/29/23 04/14/24 Rx iron) tablet (Feosol) insulin lispro 100 unit/mL 15 unit (0.15 mL) SQ BID Diabetes 01/25/24 04/14/24 Rx subcutaneous pen #15 mL allopurinol 100 mg tablet 100 mg PO DAILY 04/14/24 04/14/24 History amitriptyline 50 mg tablet 50 mg PO HS 04/14/24 04/14/24 History atorvastatin 80 mg tablet 40 mg PO HS 04/14/24 04/15/24 History bupropion HCl 150 mg tablet,12 hr 150 mg PO BID 04/14/24 04/15/24 History sustained-release carvedilol 25 mg tablet 12.5 mg PO BID 04/14/24 04/14/24 History citalopram 20 mg tablet 20 mg PO DAILY 04/14/24 04/14/24 History clopidogrel 75 mg tablet 75 mg PO DAILY 04/14/24 04/14/24 History docusate sodium 100 mg capsule 100 mg PO BID PRN Constipation 04/14/24 04/14/24 History furosemide 40 mg tablet 40 mg PO DAILY 04/14/24 04/14/24 History lisinopril 40 mg tablet 40 mg PO HS 04/14/24 04/14/24 History magnesium oxide 400 mg (241.3 mg 400 mg PO DAILY 04/14/24 04/14/24 History magnesium) tablet pramipexole 0.5 mg tablet 0.5 mg PO DAILY 04/14/24 04/14/24 History gabapentin 800 mg tablet 800 mg PO Q6H 04/15/24 04/15/24 History hydrocodone 10 mg-acetaminophen 1 tab PO Q6H 04/15/24 04/15/24 History 325 mg tablet insulin glargine 100 unit/mL (3 100 unit SQ BID 04/15/24 04/15/24 History mL) subcutaneous pen (Lantus Solostar U-100 Insulin) levothyroxine 200 mcg tablet 200 mcg PO DAILY 04/15/24 04/15/24 History pantoprazole 40 mg tablet,delayed 40 mg PO HS 04/15/24 04/15/24 History release semaglutide 1 mg/dose (4 mg/3 mL) 1 mg SQ WEEKLY 04/15/24 04/15/24 History subcutaneous pen injector (Ozempic) spironolactone 25 mg tablet 25 mg PO DAILY 04/15/24 04/15/24 History sennosides 8.6 mg tablet (Senna 17.2 mg (2 x 8.6 mg) PO DAILY 30 04/16/24 Rx Laxative) days #60 tabs blood-glucose meter #1 ea 04/17/24 Rx New Prescriptions to Start Prescriptions: sennosides [Senna Laxative] Neo Pierre Allergies Allergy/AdvReac Type Severity Reaction Status Date / Time canagliflozin [From Invokana] Allergy Severe kidney Verified 02/02/24 08:58 issues Discharge Plan Disposition Patient Disposition: Home, Self-Care Condition: Good Follow up Plan Follow up with: Ramos Morales APRN [Primary Care Provider] - 04/24/24 9:30 am Prescriptions/Medication Reconciliation: New sennosides [Senna Laxative] 8.6 mg Tablet 17.2 mg PO DAILY 30 Days Qty: 60 0RF Continued linagliptin 5 mg tablet 5 mg PO DAILY Qty: 90 1RF insulin lispro 100 unit/mL insulin pen 15 unit SQ BID Qty: 15 3RF aspirin [Darshana Low Dose Aspirin] 81 mg tablet,delayed release (DR/EC) 81 mg PO DAILY Qty: 90 1RF ergocalciferol (vitamin D2) 1,250 mcg (50,000 unit) capsule 1,250 mcg PO QMONTH Qty: 14 1RF ferrous sulfate [Feosol] 325 mg (65 mg iron) tablet 325 mg PO TID Qty: 90 3RF docusate sodium 100 mg Capsule 100 mg PO BID PRN (Reason: Constipation) bupropion HCl 150 mg tablet sustained-release 12 hr 150 mg PO BID atorvastatin 80 mg tablet 40 mg PO HS Rx Instructions: TAKE 1 TABLET BY MOUTH AT BEDTIME NIGHTLY FOR CHOLESTEROL carvedilol 25 mg tablet 12.5 mg PO BID Rx Instructions: TAKE 1 TABLET BY MOUTH TWICE A DAY FOR HYPERTENSION WITH A MEAL clopidogrel 75 mg tablet 75 mg PO DAILY Rx Instructions: TAKE 1 TABLET BY MOUTH EVERY DAY FOR CAD amitriptyline 50 mg tablet 50 mg PO HS magnesium oxide 400 mg (241.3 mg magnesium) tablet 400 mg PO DAILY Rx Instructions: TAKE 1 TABLET BY MOUTH EVERY DAY furosemide 40 mg tablet 40 mg PO DAILY Rx Instructions: TAKE 1 TABLET BY MOUTH EVERY DAY allopurinol 100 mg tablet 100 mg PO DAILY Rx Instructions: TAKE 1 TABLET BY MOUTH EVERY DAY pramipexole 0.5 mg tablet 0.5 mg PO DAILY Rx Instructions: TAKE 1 TABLET BY MOUTH EVERY DAY citalopram 20 mg tablet 20 mg PO DAILY Rx Instructions: TAKE 1 TABLET BY MOUTH EVERY DAY lisinopril 40 mg tablet 40 mg PO HS Rx Instructions: TAKE 1 TABLET BY MOUTH EVERY DAY FOR HYPERTENSION insulin glargine [Lantus Solostar U-100 Insulin] 100 unit/mL (3 mL) insulin pen 100 unit SQ BID Patient Comments: FOR DIABETES INJECT 100 UNITS UNDER THE SKIN TWICE A DAY hydrocodone-acetaminophen 10-325 mg tablet 1 tab PO Q6H Patient Comments: TAKE 1 TABLET BY MOUTH EVERY 6 HOURS gabapentin 800 mg tablet 800 mg PO Q6H Patient Comments: TAKE 1 TABLET BY MOUTH EVERY 6 HOURS levothyroxine 200 mcg tablet 200 mcg PO DAILY Patient Comments: TAKE 1 TABLET BY MOUTH ONCE DAILY FOR THYROID (THIS IS VERY IMPORTANT NOT TO SKIP) spironolactone 25 mg tablet 25 mg PO DAILY Patient Comments: TAKE 1 TABLET BY MOUTH EVERY DAY pantoprazole 40 mg tablet,delayed release (DR/EC) 40 mg PO HS Patient Comments: TAKE 1 TABLET BY MOUTH EVERY DAY Ozempic 1 mg/dose (4 mg/3 mL) pen injector 1 mg SQ WEEKLY No Action (DME) blood-glucose meter Kit See Rx Instructions .ROUTE .MEDSUPPLY Qty: 1 0RF Rx Instructions: As directed or once daily along with the strips and lancets that pts insurance will pay for Problem Reconciliation Problems Reviewed?: Yes Patient Discharge Instructions ACTIVITY: Continue current activity DIET: continue same diet Patient Instructions: Constipation, DI for Constipation Print Language: Algerian Providers Primary Care Provider: Ramos Morales Admit Provider: Neo Pierre Attending Provider: Neo Pierre
[2024-04-16 07:18] LABS: Microscopic, Urine URINE MICROSCOPIC (MICROSCOPIC)
[2024-04-16 07:25] LABS: Appearance,Urine CLEAR (Clear); Bilirubin,Urine Negative (Negative); Blood, Urine Negative (Negative); Color,Urine YELLOW (Yellow); Glucose,Urine (UA) TRACE (Negative); Ketones,Urine Negative (Negative); Leukocyte Esterase,Urine 1+ (Negative); Nitrate,Urine Negative (Negative); Protein,Urine TRACE (Negative); Urobilinogen,Urine 0.2 EU/dl (0.2)
[2024-04-16 07:37] VITALS: BP 122/72; PULSE 76; RESP 18; TEMP 35.9; O2SAT 97
[2024-04-16] MEDS: humaLOG 100 UNITS/ML 10ML VIAL (SSI) SUBCUT (08:06)
[2024-04-16 08:09] LABS: POC Glucose,Bedside 253 (70-110)
[2024-04-16] MEDS: CARVEDILOL 12.5MG TABLET 12.5 MG PO (08:55)
[2024-04-16] MEDS: buPROPion HCl SR 150MG TAB 150 MG PO (08:55)
[2024-04-16] MEDS: MAGNESIUM OXIDE 400MG TABLET 400 MG PO (08:55)
[2024-04-16] MEDS: GABAPENTIN 800MG TABLET 800 MG PO (08:55)
[2024-04-16] MEDS: ALLOPURINOL 100MG TABLET 100 MG PO (08:55)
[2024-04-16] MEDS: SENNA 8.6MG TABLET 8.6 MG PO (08:55)
[2024-04-16] MEDS: CLOPIDOGREL 75MG TAB 75 MG PO (08:55)
[2024-04-16] MEDS: CITALOPRAM 20MG TABLET 20 MG PO (08:55)
[2024-04-16] MEDS: ASPIRIN EC 81MG TABLET 81 MG PO (08:55)
[2024-04-16] MEDS: INSULIN GLARGINE 100 UNITS/ML 3ML FLEXPEN 50 UNIT SUBCUT (08:56)
[2024-04-16] MEDS: HYDROCODONE 10MG/APAP 325MG TAB 1 TAB PO (09:06)
[2024-04-16 09:11] LABS: Bacteria,Urine Trace /lpf; Squamous Epithelial Cell,Urine Occasional #/hpf (0-5); WBC,Urine Occasional #/hpf (0-3)
--- NOTE | 2024-04-17 12:59 | SW/DCPLANNER ---
Hospital follow up phone call: patient stated that she is feeling better. Patient stated that she is aware of her follow up appointment but was unable to pay for her medication. Patient stated that the copay was $7. CM spoke w/ [facility] and they were under impression patient would return w/ money. [facility] stated they can use [facility] for medication cost for this patient. I have updated patient and she stated that she will return for medication today.
== END 2024-04-16 09:40 | disposition home or self-care (01) ==
LOC: UTC 15:32 → ER 15:34 → 2ND 18:48
PROVIDERS: Admitting Provider Internal Medicine Adolescent Medicine; Emergency Provider Emergency Medicine; PCP Nurse Practitioner Family; Visit Provider Internal Medicine Adolescent Medicine
DX: K59.03 Drug induced constipation (principal); E11.610 Type 2 diabetes mellitus with diabetic neuropathic arthropathy; Z79.4 Long term (current) use of insulin; G89.29 Other chronic pain; E78.5 Hyperlipidemia, unspecified; I10 Essential (primary) hypertension; I25.118 Atherosclerotic heart disease of native coronary artery with other forms of angina pectoris; F17.210 Nicotine dependence, cigarettes, uncomplicated; Z79.899 Other long term (current) drug therapy; Z79.85 Long-term (current) use of injectable non-insulin antidiabetic drugs; Z79.891 Long term (current) use of opiate analgesic; T40.2X5A Adverse effect of other opioids, initial encounter; K59.01 Slow transit constipation; E03.9 Hypothyroidism, unspecified
CPT/HCPCS: 36415; 74018; 74177; 80053; 81001; 82962; 83605; 83690; 83735; 85025; 87086; 99285; G0378; J2270; J2405; J2765; J7030; Q9967

== ENCOUNTER 2024-04-27 07:35 | Outpatient (CLI) | payer MEDICARE, MEDICAID, SELFPAY ==
--- NOTE | 2024-04-27 07:41 | US_ITS ---
FINAL REPORT CLINICAL HISTORY: Biliary and pancreatic ductal dilatation, COMPARISON: None FINDINGS: Sonographic images of the right upper quadrant were obtained. The pancreas is partially obscured.The liver has an unremarkable appearance.The gallbladder appears normal without evidence of gallstones. There is extrahepatic biliary ductal dilatation, with the common bile duct measuring 9 mm in diameter. Limited images of the right kidney are unremarkable. IMPRESSION: Extrahepatic biliary ductal dilatation, the common bile duct measuring 9 mm in diameter. If indicated, MRCP would be helpful for further evaluation. Reviewed, Interpreted and Dictated by Moshe Godinez III, MD Transcribed by Niesha Morel Authenticated and [facility]
== END 2024-04-27 23:59 | disposition home or self-care (01) ==
LOC: RAD 07:36
PROVIDERS: PCP Nurse Practitioner Family; Visit Provider Nurse Practitioner Family
DX: R10.11 Right upper quadrant pain (principal)
CPT/HCPCS: 76705

== ENCOUNTER 2024-05-21 11:16 | Outpatient (CLI) | payer MEDICARE, MEDICAID, SELFPAY ==
[2024-05-21 11:57] LABS: Basophils # 0.1 K/mm3 (0-0.2); Basophils % 0.6 % (0.1-2.0); Eosinophils # 0.2 K/mm3 (0.0-0.4); Eosinophils % 1.4 % (0.1-12.0); Hematocrit 36.9 % (37.0-47.0); Hemoglobin 11.9 g/dL (12.2-16.2); Lymphocytes # 1.9 K/mm3 (0.7-4.5); Lymphocytes % 14.4 % (10-50); Mean Corpuscular HGB Conc 32.4 g/dL (31.8-35.4); Mean Corpuscular Hemoglobin 31.1 pg (27.0-31.2); Mean Corpuscular Volume 96.1 fl (81-99); Mean Platelet Volume 7.2 fl (7.4-10.4); Monocytes # 0.8 K/mm3 (0.1-1.0); Monocytes % 5.9 % (1.7-9.3); Neutrophils % 77.7 % (37.0-80.0); Platelet Count 370 K/mm3 (142-424); Red Blood Count 3.84 M/mm3 (4.20-5.40); Red Cell Distribution Width 13.6 % (11.5-17.5); White Blood Count 12.8 K/mm3 (4.8-10.8)
[2024-05-21 15:05] LABS: Iron 46 ug/dL (37-170)
[2024-05-21 15:14] LABS: Total Iron Binding Capacity 355 ug/dL (265-497)
[2024-05-21 15:41] LABS: Ferritin 47.8 ng/ml (11.1-264)
== END 2024-05-21 23:59 | disposition home or self-care (01) ==
LOC: LAB 11:17
PROVIDERS: PCP Nurse Practitioner Family; Visit Provider Nurse Practitioner Family
DX: E61.1 Iron deficiency (principal)
CPT/HCPCS: 82728; 83540; 83550; 85025

== ENCOUNTER 2024-08-01 22:51 | Emergency (ER) | payer MEDICARE, MEDICAID, SELFPAY ==
[2024-08-01 22:51] VITALS: BP 102/70; PULSE 69; RESP 16; TEMP 36.5; O2SAT 98; BMI 29.2
--- NOTE | 2024-08-01 23:06 | CT_ITS ---
PROCEDURE INFORMATION: Exam: CT Head Without Contrast Exam date and time: 08/01/2024 11:24 PM Age: 63 years old Clinical indication: Injury or trauma; Fall; Blunt trauma (contusions or hematomas); Additional info: Fall takes plavix TECHNIQUE: Imaging protocol: Computed tomography of the head without contrast. Radiation optimization: All CT scans at this facility use at least one of these dose optimization techniques: automated exposure control; mA and/or kV adjustment per patient size (includes targeted exams where dose is matched to clinical indication); or iterative reconstruction. COMPARISON: No relevant prior studies available. FINDINGS: Brain: No acute intracranial hemorrhage, midline shift, or mass effect. Mild diffuse brain parenchymal volume loss. Mild hypodensities within the cerebral white matter most consistent with chronic small-vessel ischemic changes. Cerebral ventricles: No ventriculomegaly. Paranasal sinuses: Opacified left middle ethmoid air cell. No fluid levels. Mastoid air cells: Visualized mastoid air cells are well aerated. Bones: Unremarkable. No acute fracture. Soft tissues: Possible mild right soft tissue swelling. IMPRESSION: No acute intracranial findings.
--- NOTE | 2024-08-01 23:06 | XR_ITS ---
PROCEDURE INFORMATION: Exam: XR Right Knee Exam date and time: 08/01/2024 11:15 PM Age: 63 years old Clinical indication: Pain; Knee; Right; Additional info: Fall, patellar pain TECHNIQUE: Imaging protocol: Radiologic exam of the right knee. Views: 4 or more views. COMPARISON: CR XR FOOT WT BEARING RT 3V 10/21/2022 8:35 AM FINDINGS: Bones/joints: Slightly displaced transverse patellar fracture. Tricompartmental osteoarthritis. Moderate joint effusion. Soft tissues: Anterior knee soft tissue swelling. Vasculature: Vascular calcifications. IMPRESSION: Slightly displaced transverse patellar fracture.
--- NOTE | 2024-08-01 23:06 | CT_ITS ---
PROCEDURE INFORMATION: Exam: CT Cervical Spine Without Contrast Exam date and time: 08/01/2024 11:27 PM Age: 63 years old Clinical indication: Injury or trauma; Fall; Blunt trauma; Additional info: Fall, hit nose TECHNIQUE: Imaging protocol: Computed tomography of the cervical spine without contrast. Radiation optimization: All CT scans at this facility use at least one of these dose optimization techniques: automated exposure control; mA and/or kV adjustment per patient size (includes targeted exams where dose is matched to clinical indication); or iterative reconstruction. COMPARISON: CT HEAD/BRAIN WO CON 08/01/2024 11:24 PM FINDINGS: Bones: Cervical vertebrae normal in height. No acute fracture. Left lateral tilt. Maintained craniocervical junction. Multilevel degenerative changes. Varying degrees of neural foraminal narrowing. 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 Lungs: Lung apices are normal. Vasculature: Bilateral carotid artery calcifications. Soft tissues: Unremarkable. IMPRESSION: No acute osseous findings.
--- NOTE | 2024-08-01 23:07 | XR_ITS ---
PROCEDURE INFORMATION: Exam: XR Left Knee Exam date and time: 08/01/2024 11:15 PM Age: 63 years old Clinical indication: Pain; Knee; Left; Additional info: Fall TECHNIQUE: Imaging protocol: Radiologic exam of the left knee. Views: 4 or more views. COMPARISON: CR XR FOOT WT BEARING LT 3V 10/21/2022 8:35 AM FINDINGS: Bones/joints: No acute fracture or malalignment. Tricompartmental osteoarthritis. Small joint effusion. Patellar enthesopathy. Soft tissues: Unremarkable. Vasculature: Vascular calcifications. IMPRESSION: Small joint effusion. No identifiable acute osseous findings.
[2024-08-01 23:31] VITALS: BP 109/71; PULSE 67; O2SAT 99
--- NOTE | 2024-08-01 23:34 | ED_ITS ---
Discharge Plan Disposition Patient Disposition: Home, Self-Care Condition: Good Prescriptions Prescriptions: No Action polyethylene glycol 3350 [Miralax] 17 gram/dose powder 17 g PO DAILY Relistor 150 mg tablet 450 mg PO DAILY Rx Instructions: Take 1 tablet by mouth three times a day linagliptin 5 mg tablet 5 mg PO DAILY Qty: 90 1RF insulin lispro 100 unit/mL insulin pen 20 unit SQ BID sennosides [Senna Laxative] 8.6 mg tablet 17.2 mg PO DAILY 30 Days Qty: 60 3RF pantoprazole 40 mg tablet,delayed release (DR/EC) 40 mg PO HS Qty: 90 3RF aspirin [Darshana Low Dose Aspirin] 81 mg tablet,delayed release (DR/EC) 81 mg PO DAILY Qty: 90 1RF ergocalciferol (vitamin D2) 1,250 mcg (50,000 unit) capsule 1,250 mcg PO QMONTH Qty: 14 1RF ferrous sulfate [Feosol] 325 mg (65 mg iron) tablet 325 mg PO TID Qty: 90 3RF (DME) blood-glucose meter Kit See Rx Instructions .ROUTE .MEDSUPPLY Qty: 1 0RF Rx Instructions: As directed or once daily along with the strips and lancets that pts insurance will pay for levothyroxine 200 mcg tablet See Rx Instructions .ROUTE .COMPLEX Qty: 90 0RF Dose Instruction: TAKE 1 TABLET BY MOUTH ONCE DAILY FOR THYROID (THIS IS VERY IMPORTANT NOT TO SKIP) Rx Instructions: TAKE 1 TABLET BY MOUTH ONCE DAILY FOR THYROID (THIS IS VERY IMPORTANT NOT TO SKIP) Ozempic 1 mg/dose (4 mg/3 mL) pen injector See Rx Instructions .ROUTE .COMPLEX Qty: 3 2RF Dose Instruction: INJECT 1 MG SUBCUTANEOUSLY WEEKLY FOR DIABETES Rx Instructions: INJECT 1 MG SUBCUTANEOUSLY WEEKLY FOR DIABETES bupropion HCl 150 mg tablet sustained-release 12 hr 150 mg PO BID atorvastatin 80 mg tablet 40 mg PO HS Rx Instructions: TAKE 1 TABLET BY MOUTH AT BEDTIME NIGHTLY FOR CHOLESTEROL carvedilol 25 mg tablet 12.5 mg PO BID Rx Instructions: TAKE 1 TABLET BY MOUTH TWICE A DAY FOR HYPERTENSION WITH A MEAL clopidogrel 75 mg tablet 75 mg PO DAILY Rx Instructions: TAKE 1 TABLET BY MOUTH EVERY DAY FOR CAD amitriptyline 50 mg tablet 50 mg PO HS magnesium oxide 400 mg (241.3 mg magnesium) tablet 400 mg PO DAILY Rx Instructions: TAKE 1 TABLET BY MOUTH EVERY DAY furosemide 40 mg tablet 40 mg PO DAILY Rx Instructions: TAKE 1 TABLET BY MOUTH EVERY DAY allopurinol 100 mg tablet 100 mg PO DAILY Rx Instructions: TAKE 1 TABLET BY MOUTH EVERY DAY pramipexole 0.5 mg tablet 0.5 mg PO DAILY Rx Instructions: TAKE 1 TABLET BY MOUTH EVERY DAY citalopram 20 mg tablet 20 mg PO DAILY Rx Instructions: TAKE 1 TABLET BY MOUTH EVERY DAY lisinopril 40 mg tablet 40 mg PO HS Rx Instructions: TAKE 1 TABLET BY MOUTH EVERY DAY FOR HYPERTENSION insulin glargine [Lantus Solostar U-100 Insulin] 100 unit/mL (3 mL) insulin pen 100 unit SQ BID Patient Comments: FOR DIABETES INJECT 100 UNITS UNDER THE SKIN TWICE A DAY hydrocodone-acetaminophen 10-325 mg tablet 1 tab PO Q6H Patient Comments: TAKE 1 TABLET BY MOUTH EVERY 6 HOURS gabapentin 800 mg tablet 800 mg PO Q6H Patient Comments: TAKE 1 TABLET BY MOUTH EVERY 6 HOURS spironolactone 25 mg tablet 25 mg PO DAILY Patient Comments: TAKE 1 TABLET BY MOUTH EVERY DAY Referrals Follow up/Referrals: Provider,Referral, MD [Primary Care Provider] - See instructions Activity Restrictions/Add. Instructions Additional Instructions/Restrictions: You were evaluated in the ER and are appropriate for discharge at this time. Continue taking all your home medications as prescribed including your aspirin, Plavix, and pain medications. Keep the knee brace on at all times with your leg straight. You can put weight on the leg as tolerated, use the crutches if needed to help you get around. The [facility] will call you for an appointment in 1 to 2 weeks. Be sure to go to this appointment. Also follow-up with your primary care doctor. Return to the ER with new, worsening, or otherwise concerning symptoms. Clinical Impressions Clinical Impression: Closed fracture of right patella, Abrasion of knee, right, Fall Print Language Print Language: Sinhala Discharge ED Provider: Desean Aguayo Adult HPI General Chief complaint: Fall Stated complaint: Fall, RT knee pain Time Seen by Provider: 08/01/24 23:06 Mode of Arrival: EMS Source of Information: Patient and EMS Limitations: No Limitations Description of Symptoms (Recalled from ER Triage Doc. by RN): Pt presents via [facility] with c/o bilateral knee pain after a fall today at 6pm. Pt has abrasions and swelling to her right knee. IV 20G RAC with LR infusing and 100mcg of fentanyl given. History of Present Illness HPI narrative: 63-year-old female with history of depression, hypertension, diabetes, CAD presents to the ER with complaints of bilateral knee pain. Patient reports to me that she tripped and fell in a parking lot today around 5 PM. Reportedly she has been ambulatory at home since the time of that fall but with her persistent pain decided to come to the ER tonight for further evaluation.. She states she did scrape her nose on the concrete when she fell but did not lose consciousness. She does take Plavix daily. Patient is primarily complaining of pain in the right knee but states both of them hurt. She states I think I exploded my kneecap . Patient was brought in via [facility]. They report she received 100 mcg of fentanyl prior to arrival. Patient reports she saw the pain clinic earlier today and they refilled her Lortab 10 but she did not take that prior to arrival. No chest pain, dizziness, headache, numbness, tingling, weakness, vomiting, abdominal pain, diarrhea, or other associated symptoms. She states she typically walks with a cane. She states she has some road rash on her knees from the fall. Most recent Tdap 2021. Related Data Home Medications ?Medication ?Instructions ?Recorded ?Confirmed allopurinol 100 mg tablet 100 mg PO DAILY 04/14/24 08/01/24 amitriptyline 50 mg tablet 50 mg PO HS 04/14/24 08/01/24 atorvastatin 80 mg tablet 40 mg PO HS 04/14/24 08/01/24 bupropion HCl 150 mg tablet,12 hr 150 mg PO BID 04/14/24 08/01/24 sustained-release carvedilol 25 mg tablet 12.5 mg PO BID 04/14/24 08/01/24 citalopram 20 mg tablet 20 mg PO DAILY 04/14/24 08/01/24 clopidogrel 75 mg tablet 75 mg PO DAILY 04/14/24 08/01/24 furosemide 40 mg tablet 40 mg PO DAILY 04/14/24 08/01/24 lisinopril 40 mg tablet 40 mg PO HS 04/14/24 08/01/24 magnesium oxide 400 mg (241.3 mg 400 mg PO DAILY 04/14/24 08/01/24 magnesium) tablet pramipexole 0.5 mg tablet 0.5 mg PO DAILY 04/14/24 08/01/24 gabapentin 800 mg tablet 800 mg PO Q6H 04/15/24 08/01/24 hydrocodone 10 mg-acetaminophen 1 tab PO Q6H 04/15/24 08/01/24 325 mg tablet insulin glargine 100 unit/mL (3 100 unit SQ BID 04/15/24 08/01/24 mL) subcutaneous pen (Lantus Solostar U-100 Insulin) spironolactone 25 mg tablet 25 mg PO DAILY 04/15/24 08/01/24 insulin lispro 100 unit/mL 20 unit SQ BID Diabetes 04/24/24 08/01/24 subcutaneous pen methylnaltrexone 150 mg tablet 450 mg PO DAILY 05/21/24 08/01/24 (Relistor) polyethylene glycol 3350 17 17 g PO DAILY 05/21/24 08/01/24 gram/dose oral powder (Miralax) Previous Rx's ?Medication ?Instructions ?Recorded linagliptin 5 mg tablet 5 mg PO DAILY Diabetes #90 tabs 01/21/23 aspirin 81 mg tablet,delayed 81 mg PO DAILY CAD #90 tabs 08/29/23 release (Darshana Low Dose Aspirin) ergocalciferol (vitamin D2) 1,250 1,250 mcg PO QMONTH Supplement #14 08/29/23 mcg (50,000 unit) capsule caps ferrous sulfate 325 mg (65 mg 325 mg PO TID Supplement #90 tabs 08/29/23 iron) tablet (Feosol) blood-glucose meter #1 ea 04/17/24 pantoprazole 40 mg tablet,delayed 40 mg PO HS #90 tabs 04/24/24 release sennosides 8.6 mg tablet (Senna 17.2 mg (2 x 8.6 mg) PO DAILY 30 04/24/24 Laxative) days #60 tabs levothyroxine 200 mcg tablet See Rx Instructions .Route 05/31/24 .COMPLEX #90 tabs semaglutide 1 mg/dose (4 mg/3 mL) See Rx Instructions .Route 07/17/24 subcutaneous pen injector (Ozempic) .COMPLEX #3 mL Allergies Allergy/AdvReac Type Severity Reaction Status Date / Time canagliflozin (From Synthe[place]) Allergy Severe kidney Verified 08/01/24 23:01 issues [facility] Disclaimer: The information contained in this section may have been updated after the patient was seen, as this information can be updated by other users. Medical History Closed left ankle fracture Elevated left ventricular end-diastolic pressure (LVEDP) Edema of both lower extremities Syncope Abnormal result of cardiovascular function study Typical angina Arthritis GERD (gastroesophageal reflux disease) Depression COPD (chronic obstructive pulmonary disease) Arrhythmia Hyperlipidemia Surgical History History of cancer surgery H/O total hysterectomy Hx of colonoscopy Family History Other Cancer Coronary artery disease Diabetes Heart attack Hypertension Stroke Social History Smoking Status: Never smoker alcohol intake: never substance use type: denies use current occupational status: unemployed and disabled Travel in the last 8 weeks: None household members: spouse housing: house Have you lived/traveled outside [place] in past 30 days?: No Contact w/someone who lives/traveled outside [place] past 30 days?: No Exposure to someone with infectious disease in past 14 days?: No Do you have a fever (greater than 100.4 F or 38 C)?: No Have you tested positive for COVID-19: No Exposed to someone with COVID-19 in past 14 days?: No Do you have a sore throat?: No Do you have a cough?: No Do you have any weakness?: No Do you have any diarrhea?: No Are you experiencing any unusual bleeding?: No Do you have any muscle aches/pain?: No Do you have any abdominal pain?: No Are you experiencing loss of taste or smell?: No Other Medical History Have you received the Flu Vaccine for this season: No (not yet) Have you received the Pneumonia Vaccine: Yes ROS Obtained: Yes Systems reviewed as appropriate & no additional complaints except as documented Per HPI Physical Exam General General appearance: alert and in no apparent distress Head Head exam: normocephalic and other (Small superficial abrasion at the end of the nose with no bleeding, no laceration, no septal hematoma, no tenderness over the bridge of the nose, no swelling, no evidence of fracture) Eye Eye exam: Present PERRL and EOMI ENT ENT exam: Present mucous membranes moist Neck Neck exam: Present normal inspection and full ROM; Absent tenderness Chest Chest inspection: Present symmetric chest wall rise; Absent tenderness Respiratory Respiratory exam: Present normal lung sounds bilaterally; Absent respiratory distress, wheezes or stridor Cardiovascular Cardiovascular exam: Present regular rate and normal rhythm Abdominal Exam Abdominal exam: Present soft; Absent distention or tenderness Extremities Exam Extremities exam: Present full ROM (Patient able to flex and extend both knees, extensor mechanism intact, patient has more pain with range of motion of the right knee), tenderness (Tenderness over bilateral patella, right worse than left), joint swelling (Slight joint swelling on the right knee, no obvious joint laxity appreciated) and other (Neurovascularly intact throughout) Neurological Exam Neurological exam: Present alert and oriented X3; Absent motor sensory deficit Psychiatric Psychiatric exam: Present normal affect and normal mood Skin Skin exam: Present warm, dry and other (Deep abrasion over right patella is hemostatic, wound not amenable to closure) Medical Decision Making Medical Records Medical records reviewed: Yes I reviewed the patient's medical records. Screening: Per USPSTF and CDC recommendations, given the prevalence of disease in our region, it is our hospital?s policy to screen for HIV and viral Hepatitis for all patients aged 18 and over and those with ongoing risk factors. MR Comment: Previous medical records reviewed including discharge summary from March 2024 were patient was admitted to the hospital for constipation, pancreatic duct dilation, mural thickening of the distal duodenum. Patient was discharged on senna. Salty Inquiry Pt receiving controlled substance: No Vital Signs: 08/01/24 22:51 08/01/24 23:31 Temperature 97.7 F Temperature Source Oral Pulse Rate 67 Pulse Rate [Right] 69 Respiratory Rate 16 Blood Pressure 109/71 L Blood Pressure [Right Arm] 102/70 L Blood Pressure Mean [Right Arm] 80 Blood Pressure Source [Right Arm] Automatic Cuff Blood Pressure Position [Right Arm] Sitting 02 Sat by Pulse Oximetry 98 99 Oxygen Delivery Method Room Air Room Air Orders (Tests/Meds): ED MEDICATIONS Discontinued Medications Generic Name Dose Route Start Last Admin Trade Name Freq PRN Reason Stop Dose Admin Hydrocodone Bitart/Acetaminophen 1 tab 08/01/24 23:46 08/01/24 23:57 Hydrocodone 10mg/Apap 325mg Tab PO 08/01/24 23:47 1 tab ONCE ONE Administration ORDERS Category Date Time Status CT cervical spine wo con Stat Cat Scan 08/01/24 23:[address] head/brain wo con Stat Cat Scan 08/01/24 23:06 Completed Knee XR left 4 views [XR knee LT 4V] Stat Exams 08/01/24 23:07 Completed Knee XR right 4 views [XR knee RT 4V] Stat Exams 08/01/24 23:06 Completed Medical Decision Narrative: In summary, this 63-year-old female with comorbidities described in the HPI which increase her overall morbidity and the amount of data to be reviewed as well as the diabetes potentially delaying healing process of injuries presents to the emergency department today with concerns of bilateral knee pain right greater than left after mechanical fall 5 to 6 hours prior to arrival. On initial evaluation patient is hemodynamically stable, afebrile, GCS 15, no neurologic deficits, tenderness to palpation of the bilateral knees, right greater than left with obvious hemostatic abrasion to the right knee, wound would not be amenable to closure as it is an approximately 2 cm diameter area of abrasion without laceration. Extensor mechanism intact in the knees bilaterally, range of motion intact though more painful on the right than the left, no ligamentous laxity appreciated, neurovascularly intact throughout. Differential diagnosis includes but is not limited to intracranial bleed, skull fracture, cervical spine injury, these injuries cannot be ruled out since patient is on blood thinners and is of advanced age, additionally I considered fracture, dislocation, patellar injury though I do not appreciate high riding patella and I am reassured that her extensor mechanism is intact. Based on these concerns, I ordered CT imaging and x-rays. XR personally interpreted demonstrates slightly displaced fracture of the right patella. Knee x-ray without acute osseous injury on my personal interpreted. See radiology read for final interpretation. Before radiology reads resulted, I had the images power shared to [facility] for orthopedic consult. has been contacted for Ortho consult. CT imaging personally interpreted demonstrate no acute intracranial bleed or skull fracture, no obvious cervical spine injury, see radiology read for final interpretation. Patient received home dose of Lortabs that she has not taken that yet today and has osseous injury to Right knee. I had an interactive discussion with Dr. Saul at transfer center and Dr. Osborne with orthopedics. Dr. Osborne was able to review the images that had been power shared to . He recommends the patient be placed in a locking knee brace in extension, weightbearing as tolerated, DVT prophylaxis with aspirin, patient is already on daily aspirin and Plavix. He recommends 1 to 2-week follow-up with Ortho clinic. Transfer center took the patient's contact information for this purpose. I explained these recommendations to the patient. She understands. She was placed in locking knee brace in extension and provided crutches to assist with ambulation since she uses a cane at baseline. She was given instructions on continued symptomatic management including to take her previously prescribed Lortab, continue all her home medications including aspirin and Plavix, follow- up with orthopedics when they call for an appointment, and was given strict return precautions for the ER. She indicated understanding and the patient was discharged in stable condition. Critical Care Critical Care Time Critical Care Time: No
--- NOTE | 2024-08-01 23:47 | PC.NURSE ---
Spoke with transfer center for an ortho consult, awaiting a call back at this time.
[2024-08-01] MEDS: HYDROCODONE 10MG/APAP 325MG TAB 1 TAB PO (23:57)
[2024-08-02] VITALS: BP 125/64; PULSE 61; O2SAT 95
[2024-08-02 00:31] VITALS: BP 129/100; PULSE 70; O2SAT 98
[2024-08-02 01:12] VITALS: BP 129/100; PULSE 69; RESP 18; TEMP 36.9; O2SAT 95
== END 2024-08-02 01:15 | disposition home or self-care (01) ==
PROVIDERS: Emergency Provider Emergency Medicine
DX: S80.211A Abrasion, right knee, initial encounter (principal); S82.001A Unspecified fracture of right patella, initial encounter for closed fracture; M25.561 Pain in right knee; M25.562 Pain in left knee; W01.0XXA Fall on same level from slipping, tripping and stumbling without subsequent striking against object, initial encounter; Y93.89 Activity, other specified; Y92.89 Other specified places as the place of occurrence of the external cause
CPT/HCPCS: 70450; 72125; 73564; 99284

== ENCOUNTER 2024-08-22 10:00 | Outpatient (CLI) | payer MEDICARE, MEDICAID, SELFPAY ==
[2024-08-22 22:59] LABS: Hemoglobin A1C 7.9 % (4.0-6.0)
[2024-08-22 23:09] LABS: Albumin Level 4.5 g/dl (3.5-5.0); Chloride 94 mmol/L (98-107); Potassium 4.5 mmoL/L (3.5-5.1); Sodium 130 mmol/L (136-145)
[2024-08-22 23:11] LABS: Blood Urea Nitrogen 21 mg/dl (7-17)
[2024-08-22 23:12] LABS: Alanine Aminotransferase 48 U/L (12-78); Albumin/Globulin Ratio 1.3 (1.1-1.8); Alkaline Phosphatase 201 U/L (38-126); Anion Gap 18.5 mEq/L (5-15); Aspartate Amino Transferase 82 U/L (14-36); Bilirubin,Total 0.6 mg/dl (0.2-1.3); Calcium 9.5 mg/dl (8.4-10.2); Carbon Dioxide 22 mmol/L (22.0-30.0); Estimated Glomerular Filt Rate 50 ml/min (>60); GFR (African American) 61 ML/MIN (>60); Globulin 3.6 g/dL (1.3-3.2); Total Protein,Serum 8.1 g/dl (6.3-8.2)
[2024-08-22 23:24] LABS: Glucose 479 mg/dl (74-100)
[2024-08-22 23:32] LABS: Creatinine,Urine Random 89 mg/dL (Not Estab.); Microalbumin > 1140.000 mg/L (0-16.7); Microalbumin/Creatinine Ratio 1280.8
== END 2024-08-22 23:59 | disposition home or self-care (01) ==
LOC: LAB.DROPOF 08-23 10:47
PROVIDERS: PCP Nurse Practitioner Family; Visit Provider Nurse Practitioner Family
DX: E11.610 Type 2 diabetes mellitus with diabetic neuropathic arthropathy (principal); Z79.4 Long term (current) use of insulin
CPT/HCPCS: 80053; 82043; 82570; 83036; 87631

== ENCOUNTER 2024-08-27 11:39 | Emergency (ER) | payer MEDICARE, MEDICAID, SELFPAY ==
[2024-08-27] VITALS (8 sets, daily range): BP systolic 120–186; BP diastolic 67–97; PULSE 68–89; RESP 11–22; TEMP 36.7; O2SAT 92–99; BMI 27.4
--- NOTE | 2024-08-27 11:48 | HMH.EDGENADL ---
Discharge Plan Disposition Patient Disposition: Xfer Short-Term Hosp Condition: Serious Prescriptions Prescriptions: No Action polyethylene glycol 3350 [Miralax] 17 gram/dose powder 17 g PO DAILY Relistor 150 mg tablet 450 mg PO DAILY Rx Instructions: Take 1 tablet by mouth three times a day prednisone 20 mg tablet 20 mg PO BID 5 Days Qty: 10 0RF ondansetron 4 mg tablet,disintegrating 4 mg PO Q8H PRN (Reason: nausea and vomiting) Qty: 30 0RF magnesium oxide 400 mg (241.3 mg magnesium) tablet 400 mg PO DAILY Qty: 90 3RF Rx Instructions: TAKE 1 TABLET BY MOUTH EVERY DAY linagliptin 5 mg tablet 5 mg PO DAILY Qty: 90 1RF insulin lispro 100 unit/mL insulin pen 20 unit SQ BID sennosides [Senna Laxative] 8.6 mg tablet 17.2 mg PO DAILY 30 Days Qty: 60 3RF pantoprazole 40 mg tablet,delayed release (DR/EC) 40 mg PO HS Qty: 90 3RF aspirin [Darshana Low Dose Aspirin] 81 mg tablet,delayed release (DR/EC) 81 mg PO DAILY Qty: 90 1RF ergocalciferol (vitamin D2) 1,250 mcg (50,000 unit) capsule 1,250 mcg PO QMONTH Qty: 14 1RF ferrous sulfate [Feosol] 325 mg (65 mg iron) tablet 325 mg PO TID Qty: 90 3RF (DME) blood-glucose meter Kit See Rx Instructions .ROUTE .MEDSUPPLY Qty: 1 0RF Rx Instructions: As directed or once daily along with the strips and lancets that pts insurance will pay for levothyroxine 200 mcg tablet See Rx Instructions .ROUTE .COMPLEX Qty: 90 0RF Dose Instruction: TAKE 1 TABLET BY MOUTH ONCE DAILY FOR THYROID (THIS IS VERY IMPORTANT NOT TO SKIP) Rx Instructions: TAKE 1 TABLET BY MOUTH ONCE DAILY FOR THYROID (THIS IS VERY IMPORTANT NOT TO SKIP) Ozempic 1 mg/dose (4 mg/3 mL) pen injector See Rx Instructions .ROUTE .COMPLEX Qty: 3 2RF Dose Instruction: INJECT 1 MG SUBCUTANEOUSLY WEEKLY FOR DIABETES Rx Instructions: INJECT 1 MG SUBCUTANEOUSLY WEEKLY FOR DIABETES bupropion HCl 150 mg tablet sustained-release 12 hr 150 mg PO BID atorvastatin 80 mg tablet 40 mg PO HS Rx Instructions: TAKE 1 TABLET BY MOUTH AT BEDTIME NIGHTLY FOR CHOLESTEROL carvedilol 25 mg tablet 12.5 mg PO BID Rx Instructions: TAKE 1 TABLET BY MOUTH TWICE A DAY FOR HYPERTENSION WITH A MEAL clopidogrel 75 mg tablet 75 mg PO DAILY Rx Instructions: TAKE 1 TABLET BY MOUTH EVERY DAY FOR CAD amitriptyline 50 mg tablet 50 mg PO HS furosemide 40 mg tablet 40 mg PO DAILY Rx Instructions: TAKE 1 TABLET BY MOUTH EVERY DAY allopurinol 100 mg tablet 100 mg PO DAILY Rx Instructions: TAKE 1 TABLET BY MOUTH EVERY DAY pramipexole 0.5 mg tablet 0.5 mg PO DAILY Rx Instructions: TAKE 1 TABLET BY MOUTH EVERY DAY citalopram 20 mg tablet 20 mg PO DAILY Rx Instructions: TAKE 1 TABLET BY MOUTH EVERY DAY lisinopril 40 mg tablet 40 mg PO HS Rx Instructions: TAKE 1 TABLET BY MOUTH EVERY DAY FOR HYPERTENSION insulin glargine [Lantus Solostar U-100 Insulin] 100 unit/mL (3 mL) insulin pen 100 unit SQ BID Patient Comments: FOR DIABETES INJECT 100 UNITS UNDER THE SKIN TWICE A DAY hydrocodone-acetaminophen 10-325 mg tablet 1 tab PO Q6H Patient Comments: TAKE 1 TABLET BY MOUTH EVERY 6 HOURS gabapentin 800 mg tablet 800 mg PO Q6H Patient Comments: TAKE 1 TABLET BY MOUTH EVERY 6 HOURS spironolactone 25 mg tablet 25 mg PO DAILY Patient Comments: TAKE 1 TABLET BY MOUTH EVERY DAY Referrals Follow up/Referrals: Ramos Morales APRN [Primary Care Provider] - See instructions Activity Restrictions/Add. Instructions Additional Instructions/Restrictions: 2 [facility] care of Dr. Garay Clinical Impressions Clinical Impression: Septic joint of right knee joint Qualifiers: Septic arthritis organism: due to unspecified organism Qualified Code(s): M00.9 - Pyogenic arthritis, unspecified Stand Alone Forms Stand Alone Forms: Transfer Record - ED Print Language Print Language: Citizen Of [place] Discharge ED Provider: Jaylin Zazueta General Adult HPI <HAILE Cheung - Last Filed: 08/27/24 19:06> General Chief complaint: Extremity Problem,Nontraumatic Stated complaint: Knee Pain, out of loratab Time Seen by Provider: 08/27/24 11:48 History of Present Illness HPI narrative: Patient presents for evaluation of right knee pain. Patient is a 63-year-old female who fell on August 01, 2024. She came to the ER evaluation and was actually diagnosed with a right mildly displaced patellar fracture. Consult was had with orthopedics and patient was to be in a hinged knee brace weightbearing as tolerated with follow-up in 1 to 2 weeks with orthopedics clinic. Orthopedics clinic was supposed to call and schedule the appointment and call the patient. Patient actually has an appointment at 2:00 today however she reports that she has been compliant with wearing the knee brace until 3 days ago when it began hurting and swelling. Patient states that she has a Gaspar's cyst and it is rapidly seem to get bigger and more painful. She reports pain now with walking flexion extension but denies any numbness tingling fever chills hemoptysis hematochezia melena nausea vomit diarrhea.. Related Data Home Medications ?Medication ?Instructions ?Recorded ?Confirmed allopurinol 100 mg tablet 100 mg PO DAILY 04/14/24 08/27/24 amitriptyline 50 mg tablet 50 mg PO HS 04/14/24 08/27/24 atorvastatin 80 mg tablet 40 mg PO HS 04/14/24 08/27/24 bupropion HCl 150 mg tablet,12 hr 150 mg PO BID 04/14/24 08/27/24 sustained-release carvedilol 25 mg tablet 12.5 mg PO BID 04/14/24 08/27/24 citalopram 20 mg tablet 20 mg PO DAILY 04/14/24 08/27/24 clopidogrel 75 mg tablet 75 mg PO DAILY 04/14/24 08/27/24 furosemide 40 mg tablet 40 mg PO DAILY 04/14/24 08/27/24 lisinopril 40 mg tablet 40 mg PO HS 04/14/24 08/27/24 pramipexole 0.5 mg tablet 0.5 mg PO DAILY 04/14/24 08/27/24 gabapentin 800 mg tablet 800 mg PO Q6H 04/15/24 08/27/24 hydrocodone 10 mg-acetaminophen 1 tab PO Q6H 04/15/24 08/27/24 325 mg tablet insulin glargine 100 unit/mL (3 100 unit SQ BID 04/15/24 08/27/24 mL) subcutaneous pen (Lantus Solostar U-100 Insulin) spironolactone 25 mg tablet 25 mg PO DAILY 04/15/24 08/27/24 insulin lispro 100 unit/mL 20 unit SQ BID Diabetes 04/24/24 08/27/24 subcutaneous pen methylnaltrexone 150 mg tablet 450 mg PO DAILY 05/21/24 08/27/24 (Relistor) polyethylene glycol 3350 17 17 g PO DAILY 05/21/24 08/27/24 gram/dose oral powder (Miralax) Previous Rx's ?Medication ?Instructions ?Recorded linagliptin 5 mg tablet 5 mg PO DAILY Diabetes #90 tabs 01/21/23 aspirin 81 mg tablet,delayed 81 mg PO DAILY CAD #90 tabs 08/29/23 release (Darshana Low Dose Aspirin) ergocalciferol (vitamin D2) 1,250 1,250 mcg PO QMONTH Supplement #14 08/29/23 mcg (50,000 unit) capsule caps ferrous sulfate 325 mg (65 mg 325 mg PO TID Supplement #90 tabs 08/29/23 iron) tablet (Feosol) blood-glucose meter #1 ea 04/17/24 pantoprazole 40 mg tablet,delayed 40 mg PO HS #90 tabs 04/24/24 release sennosides 8.6 mg tablet (Senna 17.2 mg (2 x 8.6 mg) PO DAILY 30 04/24/24 Laxative) days #60 tabs levothyroxine 200 mcg tablet See Rx Instructions .Route 05/31/24 .COMPLEX #90 tabs semaglutide 1 mg/dose (4 mg/3 mL) See Rx Instructions .Route 07/17/24 subcutaneous pen injector (Ozempic) .COMPLEX #3 mL magnesium oxide 400 mg (241.3 mg 400 mg PO DAILY #90 tabs 08/22/24 magnesium) tablet ondansetron 4 mg disintegrating 4 mg PO Q8H PRN nausea and 08/22/24 tablet vomiting #30 tabs prednisone 20 mg tablet 20 mg PO BID 5 days #10 tabs 08/22/24 Allergies Allergy/AdvReac Type Severity Reaction Status Date / Time canagliflozin (From Invokana) Allergy Severe kidney Verified 08/27/24 12:32 issues [facility] <HAILE Cheung - Last Filed: 08/27/24 19:06> [facility] Disclaimer: The information contained in this section may have been updated after the patient was seen, as this information can be updated by other users. Medical History Closed left ankle fracture Elevated left ventricular end-diastolic pressure (LVEDP) Edema of both lower extremities Syncope Abnormal result of cardiovascular function study Typical angina Arthritis GERD (gastroesophageal reflux disease) Depression COPD (chronic obstructive pulmonary disease) Arrhythmia Hyperlipidemia Surgical History History of cancer surgery H/O total hysterectomy Hx of colonoscopy Family History Other Cancer Coronary artery disease Diabetes Heart attack Hypertension Stroke Social History Smoking Status: Current every day smoker tobacco type: cigarettes alcohol intake: never substance use type: denies use current occupational status: unemployed and disabled Travel in the last 8 weeks: None household members: spouse housing: house Have you lived/traveled outside US in past 30 days?: No Contact w/someone who lives/traveled outside US past 30 days?: No Exposure to someone with infectious disease in past 14 days?: No Do you have a fever (greater than 100.4 F or 38 C)?: No Have you tested positive for COVID-19: No Exposed to someone with COVID-19 in past 14 days?: No Do you have a sore throat?: No Do you have a cough?: No Do you have any weakness?: No Do you have any diarrhea?: No Are you experiencing any unusual bleeding?: No Do you have any muscle aches/pain?: No Do you have any abdominal pain?: No Are you experiencing loss of taste or smell?: No Other Medical History Have you received the Flu Vaccine for this season: No (not yet) Have you received the Pneumonia Vaccine: Yes <HAILE Cheung - Last Filed: 08/27/24 19:06> ROS Obtained: Yes Systems reviewed as appropriate & no additional complaints except as documented Physical Exam <HAILE Cheung - Last Filed: 08/27/24 19:06> General General appearance: alert and in no apparent distress Respiratory Respiratory exam: Present normal lung sounds bilaterally Cardiovascular Cardiovascular exam: Present regular rate Neurological Exam Neurological exam: Present alert and oriented X3 Medical Decision Making <HAILE Cheung - Last Filed: 08/27/24 19:06> Medical Records Medical records reviewed: Yes I reviewed the patient's medical records. Screening: Per USPSTF and CDC recommendations, given the prevalence of disease in our region, it is our hospital?s policy to screen for HIV and viral Hepatitis for all patients aged 18 and over and those with ongoing risk factors. Salty Inquiry Pt receiving controlled substance: No Vital Signs: 08/27/24 12:11 08/27/24 13:08 08/27/24 13:35 Temperature 98.0 F Temperature Source Oral Pulse Rate 89 68 Pulse Rate [Right] 85 Respiratory Rate 19 Blood Pressure 186/72 H 159/85 H Blood Pressure [Right Arm] 127/93 H Blood Pressure Mean [Right Arm] 104 Blood Pressure Source Blood Pressure Source [Right Arm] Automatic Cuff Blood Pressure Position 02 Sat by Pulse Oximetry 98 98 92 L Oxygen Delivery Method Room Air Room Air Room Air 08/27/24 14:43 08/27/24 15:31 08/27/24 16:30 Temperature Temperature Source Pulse Rate 86 85 75 Pulse Rate [Right] Respiratory Rate 18 22 11 L Blood Pressure 124/67 147/85 H 161/97 H Blood Pressure [Right Arm] Blood Pressure Mean [Right Arm] Blood Pressure Source Blood Pressure Source [Right Arm] Blood Pressure Position 02 Sat by Pulse Oximetry 98 98 99 Oxygen Delivery Method Room Air Room Air 08/27/24 17:00 08/27/24 19:40 Temperature 98.0 F Temperature Source Oral Pulse Rate 82 75 Pulse Rate [Right] Respiratory Rate 16 17 Blood Pressure 120/77 170/89 H Blood Pressure [Right Arm] Blood Pressure Mean [Right Arm] Blood Pressure Source Automatic Cuff Blood Pressure Source [Right Arm] Blood Pressure Position Sitting 02 Sat by Pulse Oximetry 99 Oxygen Delivery Method Room Air Room Air Lab Data Lab results reviewed: Yes I reviewed the patient's lab results. Lab Results 08/27/24 13:52: WBC 11.6 H, RBC 3.69 L, Hgb 11.3 L, Hct 33.0 L, MCV 89.4, MCH 30.6, MCHC 34.2, RDW 15.3, Plt Count 296, MPV 9.1, Neut % (Auto) 77.7, Lymph % (Auto) 14.5, [place] % (Auto) 5.6, Eos % (Auto) 1.1, Baso % (Auto) 0.3, Neut # (Auto) 9.0 H, Lymph # (Auto) 1.7, [place] # (Auto) 0.7, Eos # (Auto) 0.1, Baso # (Auto) 0.0, ESR 96 H, D-Dimer 0.94 H, Sodium 134 L, Potassium 4.1, Chloride 99, Carbon Dioxide 27, Anion Gap 12.1, BUN 24 H, Creatinine 0.90, Estimated Creat Clear 63, Estimated GFR 64, Est GFR ( Amer) 77, Glucose 222 H, Calcium 10.0, Total Bilirubin 0.6, AST 181 H, ALT 93 H, Alkaline Phosphatase 306 H, C-Reactive Protein 232.4 H, Total Protein 7.9, Albumin 4.0, Globulin 3.9 H, Albumin/Globulin Ratio 1.0 L 08/27/24 13:52 08/27/24 13:52 Orders (Tests/Meds): ED MEDICATIONS Discontinued Medications Generic Name Dose Route Start Last Admin Trade Name Freq PRN Reason Stop Dose Admin Acetaminophen 1,000 mg 08/27/24 12:17 08/27/24 12:29 Acetaminophen 500mg Tab PO 08/27/24 12:18 1,000 mg ONCE ONE Administration Hydromorphone HCl 0.5 mg 08/27/24 16:10 08/27/24 16:21 Hydromorphone 2mg/Ml Syringe IV 08/27/24 16:11 0.5 mg ONCE ONE Administration Sodium Chloride 1,000 mls @ 999 mls/hr 08/27/24 14:39 08/27/24 14:57 Sod Chlor 0.9% 1000ml Bag IV 08/27/24 15:39 999 mls/hr .Q1H1M ONE Administration Piperacillin Sod/Tazobactam 50 mls @ 100 mls/hr 08/27/24 18:15 08/27/24 18:53 Sod 3.375 gm/ Sodium Chloride IV 09/06/24 18:14 100 mls/hr Q6H MITUL Administration Vancomycin/PEG/NADA/Lysine/Water 1.75 gm in 350 mls @ 175 mls/hr 08/27/24 18:30 08/27/24 18:53 Vancomycin 1.75gm/350ml (Peg) Premix IV 08/27/24 20:29 175 mls/hr ONCE ONE Administration Lidocaine HCl 20 ml 08/27/24 12:38 08/27/24 12:57 Lidocaine 1% 20ml Mdv IJ 08/27/24 12:39 20 ml ONCE ONE Administration Miscellaneous 1 each 08/27/24 18:15 08/27/24 18:53 Vancomycin Consult Request NOTAPPLIC 09/26/24 18:14 1 each CONSULT PHARMACY MITUL Administration Oxycodone HCl 5 mg 08/27/24 12:17 08/27/24 12:29 Oxycodone 5mg Immediate Release Tablet PO 08/27/24 12:18 5 mg ONCE ONE Administration ORDERS Category Date Time Status Knee XR right 3 views [XR knee RT 3V] Stat Exams 08/27/24 12:04 Completed POCUS Point of Care (ER Only) Stat Exams 08/27/24 12:11 Completed Body Fluid: Cell Count w/ Diff Stat Lab 08/27/24 12:11 Ordered CBC w/Auto Diff [Complete Blood Count Auto Diff] Stat Lab 08/27/24 13:52 Completed CMP [Comprehensive Metabolic Panel] Stat Lab 08/27/24 13:52 Completed CRP [C-Reactive Protein] Stat Lab 08/27/24 13:[address] Synovial w/ Crystals Routine Lab 08/27/24 13:05 Received D-Dimer Stat Lab 08/27/24 13:52 Completed ESR [Erythrocyte Sedimentation Rate] Stat Lab 08/27/24 13:52 Completed Blood Culture Stat Micro 08/27/24 18:38 Received Body Fluid Cult & Gram Stain Stat Micro 08/27/24 12:58 Results Tissue Perfus/Sepsis Re-Eval Sepsis Re-Evaluation Performed: Yes Date Performed: 08/27/24 Time Performed: 13:50 Medical Decision Narrative: In summary patient is a 63-year-old female with a past medical history of type 2 insulin-dependent diabetes mellitus, diabetic foot, Charcot foot, hypothyroidism, hypertension, peripheral artery disease, GERD, restless leg syndrome, chronic pain, diabetic neuropathy, cardiovascular disease who presents to the emergency department for evaluation of right knee pain and swelling. Patient is hemodynamically stable upon arrival, afebrile. Physical exam is remarkable for swelling posteriorly of the right knee joint that appears to protrude dependently. Pain is very tender to palpation to popliteal fossa, however her distal compartments are soft and she has full range of motion and palpable DP and PT currently. Foot is warm. There is no patellar ballottement. Patient cannot fully flex the knee due to the pain and swelling. The joint is slightly warm but not overtly erythematous. Additionally patient has 2 diabetic foot wounds along the lateral aspect of each foot around mid metatarsal. The right appears to be healing well the left does not however there is no purulence or necrosis seen currently.. Differential diagnosis includes joint effusion versus hemarthrosis versus septic arthritis etc. Initial workup will be conducted with hematologic labs POCUS joint fluid analysis for crystals Gram stain and culture. Initial interventions include Tylenol and oxycodone for now. Initial workup reviewed by me and patient has a white count of 11.6 with absolute neutrophil count of 9.0 ESR was 96 D-dimer was 0.94 PE is excluded by years criteria, glucose 222 CRP was 232.4 my informal interpretation of her plain film x-ray shows fairly large joint effusion but no bony fracture. POCUS shows and confirms joint effusion. Joint was tapped by Dr. Linares and it appeared to be lauren pus. Given this the patient was placed in observation status at 1323. Medical necessity for observational status is awaiting joint fluid analysis. The patient was provided serial reevaluations continuous cardiac monitoring and pulse oximetry while awaiting results. Joint fluid analysis shows that she definitely has septic arthritis with greater than 55,000 white count and gram-positive cocci in pairs and her joint fluid along with her elevated inflammatory markers and slightly elevated white count. Given that septic arthritis is now confirmed and we have a source and Gram stain have started the patient on vancomycin and Zosyn. I had interactive discussion with [facility] transfer afton about patient GREGORY presentation and findings as well as patient management and the patient has been accepted for ER to ER transfer by Dr. Garay to [place] emergency department.. Total time in observation was 5-1/2 hours. <Nestor Linares MD - Last Filed: 08/28/24 14:49> Vital Signs: 08/27/24 12:11 08/27/24 13:08 08/27/24 13:35 Temperature 98.0 F Temperature Source Oral Pulse Rate 89 68 Pulse Rate [Right] 85 Respiratory Rate 19 Blood Pressure 186/72 H 159/85 H Blood Pressure [Right Arm] 127/93 H Blood Pressure Mean [Right Arm] 104 Blood Pressure Source Blood Pressure Source [Right Arm] Automatic Cuff Blood Pressure Position 02 Sat by Pulse Oximetry 98 98 92 L Oxygen Delivery Method Room Air Room Air Room Air 08/27/24 14:43 08/27/24 15:31 08/27/24 16:30 Temperature Temperature Source Pulse Rate 86 85 75 Pulse Rate [Right] Respiratory Rate 18 22 11 L Blood Pressure 124/67 147/85 H 161/97 H Blood Pressure [Right Arm] Blood Pressure Mean [Right Arm] Blood Pressure Source Blood Pressure Source [Right Arm] Blood Pressure Position 02 Sat by Pulse Oximetry 98 98 99 Oxygen Delivery Method Room Air Room Air 08/27/24 17:00 08/27/24 19:40 Temperature 98.0 F Temperature Source Oral Pulse Rate 82 75 Pulse Rate [Right] Respiratory Rate 16 17 Blood Pressure 120/77 170/89 H Blood Pressure [Right Arm] Blood Pressure Mean [Right Arm] Blood Pressure Source Automatic Cuff Blood Pressure Source [Right Arm] Blood Pressure Position Sitting 02 Sat by Pulse Oximetry 99 Oxygen Delivery Method Room Air Room Air Lab Data Lab Results 08/27/24 13:52: WBC 11.6 H, RBC 3.69 L, Hgb 11.3 L, Hct 33.0 L, MCV 89.4, MCH 30.6, MCHC 34.2, RDW 15.3, Plt Count 296, MPV 9.1, Neut % (Auto) 77.7, Lymph % (Auto) 14.5, [place] % (Auto) 5.6, Eos % (Auto) 1.1, Baso % (Auto) 0.3, Neut # (Auto) 9.0 H, Lymph # (Auto) 1.7, [place] # (Auto) 0.7, Eos # (Auto) 0.1, Baso # (Auto) 0.0, ESR 96 H, D-Dimer 0.94 H, Sodium 134 L, Potassium 4.1, Chloride 99, Carbon Dioxide 27, Anion Gap 12.1, BUN 24 H, Creatinine 0.90, Estimated Creat Clear 63, Estimated GFR 64, Est GFR ( Amer) 77, Glucose 222 H, Calcium 10.0, Total Bilirubin 0.6, AST 181 H, ALT 93 H, Alkaline Phosphatase 306 H, C-Reactive Protein 232.4 H, Total Protein 7.9, Albumin 4.0, Globulin 3.9 H, Albumin/Globulin Ratio 1.0 L Orders (Tests/Meds): ED MEDICATIONS Discontinued Medications Generic Name Dose Route Start Last Admin Trade Name Efra PRN Reason Stop Dose Admin Acetaminophen 1,000 mg 08/27/24 12:17 08/27/24 12:29 Acetaminophen 500mg Tab PO 08/27/24 12:18 1,000 mg ONCE ONE Administration Hydromorphone HCl 0.5 mg 08/27/24 16:10 08/27/24 16:21 Hydromorphone 2mg/Ml Syringe IV 08/27/24 16:11 0.5 mg ONCE ONE Administration Sodium Chloride 1,000 mls @ 999 mls/hr 08/27/24 14:39 08/27/24 14:57 Sod Chlor 0.9% 1000ml Bag IV 08/27/24 15:39 999 mls/hr .Q1H1M ONE Administration Piperacillin Sod/Tazobactam 50 mls @ 100 mls/hr 08/27/24 18:15 08/27/24 18:53 Sod 3.375 gm/ Sodium Chloride IV 09/06/24 18:14 100 mls/hr Q6H MITUL Administration Vancomycin/PEG/NADA/Lysine/Water 1.75 gm in 350 mls @ 175 mls/hr 08/27/24 18:30 08/27/24 18:53 Vancomycin 1.75gm/350ml (Peg) Premix IV 08/27/24 20:29 175 mls/hr ONCE ONE Administration Lidocaine HCl 20 ml 08/27/24 12:38 08/27/24 12:57 Lidocaine 1% 20ml Mdv IJ 08/27/24 12:39 20 ml ONCE ONE Administration Miscellaneous 1 each 08/27/24 18:15 08/27/24 18:53 Vancomycin Consult Request NOTAPPLIC 09/26/24 18:14 1 each CONSULT PHARMACY MITUL Administration Oxycodone HCl 5 mg 08/27/24 12:17 08/27/24 12:29 Oxycodone 5mg Immediate Release Tablet PO 08/27/24 12:18 5 mg ONCE ONE Administration ORDERS Category Date Time Status Knee XR right 3 views [XR knee RT 3V] Stat Exams 08/27/24 12:04 Completed POCUS Point of Care (ER Only) Stat Exams 08/27/24 12:11 Completed Body Fluid: Cell Count w/ Diff Stat Lab 08/27/24 12:11 Ordered CBC w/Auto Diff [Complete Blood Count Auto Diff] Stat Lab 08/27/24 13:52 Completed CMP [Comprehensive Metabolic Panel] Stat Lab 08/27/24 13:52 Completed CRP [C-Reactive Protein] Stat Lab 08/27/24 13:[address] Synovial w/ Crystals Routine Lab 08/27/24 13:05 Received D-Dimer Stat Lab 08/27/24 13:52 Completed ESR [Erythrocyte Sedimentation Rate] Stat Lab 08/27/24 13:52 Completed Blood Culture Stat Micro 08/27/24 18:38 Received Body Fluid Cult & Gram Stain Stat Micro 08/27/24 12:58 Results Medical Decision Narrative: In summary patient is a 63-year-old female with a past medical history of type 2 insulin-dependent diabetes mellitus, diabetic foot, Charcot foot, hypothyroidism, hypertension, peripheral artery disease, GERD, restless leg syndrome, chronic pain, diabetic neuropathy, cardiovascular disease who presents to the emergency department for evaluation of right knee pain and swelling. Patient is hemodynamically stable upon arrival, afebrile. Physical exam is remarkable for swelling posteriorly of the right knee joint that appears to protrude dependently. Pain is very tender to palpation to popliteal fossa, however her distal compartments are soft and she has full range of motion and palpable DP and PT currently. Foot is warm. There is no patellar ballottement. Patient cannot fully flex the knee due to the pain and swelling. The joint is slightly warm but not overtly erythematous. Additionally patient has 2 diabetic foot wounds along the lateral aspect of each foot around mid metatarsal. The right appears to be healing well the left does not however there is no purulence or necrosis seen currently.. Differential diagnosis includes joint effusion versus hemarthrosis versus septic arthritis etc. Initial workup will be conducted with hematologic labs POCUS joint fluid analysis for crystals Gram stain and culture. Initial interventions include Tylenol and oxycodone for now. Initial workup reviewed by me and patient has a white count of 11.6 with absolute neutrophil count of 9.0 ESR was 96 D-dimer was 0.94 PE is excluded by years criteria, glucose 222 CRP was 232.4 my informal interpretation of her plain film x-ray shows fairly large joint effusion but no bony fracture. POCUS shows and confirms joint effusion. Joint was tapped by Dr. Linares and it appeared to be lauren pus. Given this the patient was placed in observation status at 1323. Medical necessity for observational status is awaiting joint fluid analysis. The patient was provided serial reevaluations continuous cardiac monitoring and pulse oximetry while awaiting results. Joint fluid analysis shows that she definitely has septic arthritis with greater than 55,000 white count and gram-positive cocci in pairs and her joint fluid along with her elevated inflammatory markers and slightly elevated white count. Given that septic arthritis is now confirmed and we have a source and Gram stain have started the patient on vancomycin and Zosyn. I had interactive discussion with [facility] about patient GREGORY presentation and findings as well as patient management and the patient has been accepted for ER to ER transfer by Dr. Garay to [place] emergency department.. Total time in observation was 5-1/2 hours. I was consulted by the DESTINEY, and we discussed the complexity of the problems being addressed. I approve the treatment and management plan for this patient's care in the emergency department, thus performing a substantive portion of the medical decision making. MD Marbin Rust DO: I was consulted by the DESTINEY, and we discussed the complexity of the problems being addressed. I approved the treatment and management plan for this patient's care in the emergency department, thus performing a substantive portion of the medical decision making. I assumed care of the patient with DESTINEY at signout of previous physician Dr. Aguilar at 1500 p.m. Jaylin Zazueta DO <Jaylin Zazueta DO - Last Filed: 08/27/24 23:19> Vital Signs: 08/27/24 12:11 08/27/24 13:08 08/27/24 13:35 Temperature 98.0 F Temperature Source Oral Pulse Rate 89 68 Pulse Rate [Right] 85 Respiratory Rate 19 Blood Pressure 186/72 H 159/85 H Blood Pressure [Right Arm] 127/93 H Blood Pressure Mean [Right Arm] 104 Blood Pressure Source Blood Pressure Source [Right Arm] Automatic Cuff Blood Pressure Position 02 Sat by Pulse Oximetry 98 98 92 L Oxygen Delivery Method Room Air Room Air Room Air 08/27/24 14:43 08/27/24 15:31 08/27/24 16:30 Temperature Temperature Source Pulse Rate 86 85 75 Pulse Rate [Right] Respiratory Rate 18 22 11 L Blood Pressure 124/67 147/85 H 161/97 H Blood Pressure [Right Arm] Blood Pressure Mean [Right Arm] Blood Pressure Source Blood Pressure Source [Right Arm] Blood Pressure Position 02 Sat by Pulse Oximetry 98 98 99 Oxygen Delivery Method Room Air Room Air 08/27/24 17:00 08/27/24 19:40 Temperature 98.0 F Temperature Source Oral Pulse Rate 82 75 Pulse Rate [Right] Respiratory Rate 16 17 Blood Pressure 120/77 170/89 H Blood Pressure [Right Arm] Blood Pressure Mean [Right Arm] Blood Pressure Source Automatic Cuff Blood Pressure Source [Right Arm] Blood Pressure Position Sitting 02 Sat by Pulse Oximetry 99 Oxygen Delivery Method Room Air Room Air Lab Data Lab Results 08/27/24 13:52: WBC 11.6 H, RBC 3.69 L, Hgb 11.3 L, Hct 33.0 L, MCV 89.4, MCH 30.6, MCHC 34.2, RDW 15.3, Plt Count 296, MPV 9.1, Neut % (Auto) 77.7, Lymph % (Auto) 14.5, [place] % (Auto) 5.6, Eos % (Auto) 1.1, Baso % (Auto) 0.3, Neut # (Auto) 9.0 H, Lymph # (Auto) 1.7, [place] # (Auto) 0.7, Eos # (Auto) 0.1, Baso # (Auto) 0.0, ESR 96 H, D-Dimer 0.94 H, Sodium 134 L, Potassium 4.1, Chloride 99, Carbon Dioxide 27, Anion Gap 12.1, BUN 24 H, Creatinine 0.90, Estimated Creat Clear 63, Estimated GFR 64, Est GFR ( Amer) 77, Glucose 222 H, Calcium 10.0, Total Bilirubin 0.6, AST 181 H, ALT 93 H, Alkaline Phosphatase 306 H, C-Reactive Protein 232.4 H, Total Protein 7.9, Albumin 4.0, Globulin 3.9 H, Albumin/Globulin Ratio 1.0 L Orders (Tests/Meds): ED MEDICATIONS Discontinued Medications Generic Name Dose Route Start Last Admin Trade Name Freq PRN Reason Stop Dose Admin Acetaminophen 1,000 mg 08/27/24 12:17 08/27/24 12:29 Acetaminophen 500mg Tab PO 08/27/24 12:18 1,000 mg ONCE ONE Administration Hydromorphone HCl 0.5 mg 08/27/24 16:10 08/27/24 16:21 Hydromorphone 2mg/Ml Syringe IV 08/27/24 16:11 0.5 mg ONCE ONE Administration Sodium Chloride 1,000 mls @ 999 mls/hr 08/27/24 14:39 08/27/24 14:57 Sod Chlor 0.9% 1000ml Bag IV 08/27/24 15:39 999 mls/hr .Q1H1M ONE Administration Piperacillin Sod/Tazobactam 50 mls @ 100 mls/hr 08/27/24 18:15 08/27/24 18:53 Sod 3.375 gm/ Sodium Chloride IV 09/06/24 18:14 100 mls/hr Q6H MITUL Administration Vancomycin/PEG/NADA/Lysine/Water 1.75 gm in 350 mls @ 175 mls/hr 08/27/24 18:30 08/27/24 18:53 Vancomycin 1.75gm/350ml (Peg) Premix IV 08/27/24 20:29 175 mls/hr ONCE ONE Administration Lidocaine HCl 20 ml 08/27/24 12:38 08/27/24 12:57 Lidocaine 1% 20ml Mdv IJ 08/27/24 12:39 20 ml ONCE ONE Administration Miscellaneous 1 each 08/27/24 18:15 08/27/24 18:53 Vancomycin Consult Request NOTAPPLIC 09/26/24 18:14 1 each CONSULT PHARMACY MITUL Administration Oxycodone HCl 5 mg 08/27/24 12:17 08/27/24 12:29 Oxycodone 5mg Immediate Release Tablet PO 08/27/24 12:18 5 mg ONCE ONE Administration ORDERS Category Date Time Status Knee XR right 3 views [XR knee RT 3V] Stat Exams 08/27/24 12:04 Completed POCUS Point of Care (ER Only) Stat Exams 08/27/24 12:11 Completed Body Fluid: Cell Count w/ Diff Stat Lab 08/27/24 12:11 Ordered CBC w/Auto Diff [Complete Blood Count Auto Diff] Stat Lab 08/27/24 13:52 Completed CMP [Comprehensive Metabolic Panel] Stat Lab 08/27/24 13:52 Completed CRP [C-Reactive Protein] Stat Lab 08/27/24 13:[address] Synovial w/ Crystals Routine Lab 08/27/24 13:05 Received D-Dimer Stat Lab 08/27/24 13:52 Completed ESR [Erythrocyte Sedimentation Rate] Stat Lab 08/27/24 13:52 Completed Blood Culture Stat Micro 08/27/24 18:38 Received Body Fluid Cult & Gram Stain Stat Micro 08/27/24 12:58 Results ECG Data Tracing #1: I reviewed this ECG and interpreted as documented below: Normal sinus rhythm with a ventricular of 87 beats per minute. Right bundle-branch block. No acute ST changes concerning for ischemia. Normal intervals ECG initial impression date: 08/27/24 ECG initial impression time: 16:45 Medical Decision Narrative: In summary patient is a 63-year-old female with a past medical history of type 2 insulin-dependent diabetes mellitus, diabetic foot, Charcot foot, hypothyroidism, hypertension, peripheral artery disease, GERD, restless leg syndrome, chronic pain, diabetic neuropathy, cardiovascular disease who presents to the emergency department for evaluation of right knee pain and swelling. Patient is hemodynamically stable upon arrival, afebrile. Physical exam is remarkable for swelling posteriorly of the right knee joint that appears to protrude dependently. Pain is very tender to palpation to popliteal fossa, however her distal compartments are soft and she has full range of motion and palpable DP and PT currently. Foot is warm. There is no patellar ballottement. Patient cannot fully flex the knee due to the pain and swelling. The joint is slightly warm but not overtly erythematous. Additionally patient has 2 diabetic foot wounds along the lateral aspect of each foot around mid metatarsal. The right appears to be healing well the left does not however there is no purulence or necrosis seen currently.. Differential diagnosis includes joint effusion versus hemarthrosis versus septic arthritis etc. Initial workup will be conducted with hematologic labs POCUS joint fluid analysis for crystals Gram stain and culture. Initial interventions include Tylenol and oxycodone for now. Initial workup reviewed by me and patient has a white count of 11.6 with absolute neutrophil count of 9.0 ESR was 96 D-dimer was 0.94 PE is excluded by years criteria, glucose 222 CRP was 232.4 my informal interpretation of her plain film x-ray shows fairly large joint effusion but no bony fracture. POCUS shows and confirms joint effusion. Joint was tapped by Dr. Linares and it appeared to be lauren pus. Given this the patient was placed in observation status at 1323. Medical necessity for observational status is awaiting joint fluid analysis. The patient was provided serial reevaluations continuous cardiac monitoring and pulse oximetry while awaiting results. Joint fluid analysis shows that she definitely has septic arthritis with greater than 55,000 white count and gram-positive cocci in pairs and her joint fluid along with her elevated inflammatory markers and slightly elevated white count. Given that septic arthritis is now confirmed and we have a source and Gram stain have started the patient on vancomycin and Zosyn. I had interactive discussion with [facility] about patient GREGORY presentation and findings as well as patient management and the patient has been accepted for ER to ER transfer by Dr. Garay to [place] emergency department.. Total time in observation was 5-1/2 hours. DO Marbin: I was consulted by the DESTINEY, and we discussed the complexity of the problems being addressed. I approved the treatment and management plan for this patient's care in the emergency department, thus performing a substantive portion of the medical decision making. I assumed care of the patient with DESTINEY at signout of previous physician Dr. Aguilar at 1500 p.m. Jaylin Zazueta DO Procedures <Nestor Linares MD - Last Filed: 08/28/24 14:49> Joint Aspiration/Injection Joint Asp./Inject. 1: Time Out Performed: Yes Side of body: right Joint Aspirated: knee Ultrasound Guidance: No Skin Prep: Chlorhexidine Local Anesthetic: lidocaine 1% Amount of anesthesia used (mL): 2 Needle Size Used: 18G Fluid Obtained: purulent Total fluid obtained (mL): 7 Patient Tolerated Procedure: no complications Complications: none Limited Ultrasound Indication:: Right knee effusion Views:: Quadriceps tendon, patellar tendon, Joint space Findings:: Mild hypoechogenicity in the joint space of the knee. Tendons appear intact without surrounding fluid. Interpretation:: Mild joint effusion Critical Care <HAILE Cheung - Last Filed: 08/27/24 19:06> Critical Care Time Critical Care Time: No
--- NOTE | 2024-08-27 12:04 | XR_ITS ---
FINAL REPORT TECHNIQUE: Right knee 3 views CLINICAL HISTORY: Patella injury 1 month ago, increased swelling COMPARISON: 08/01/2024 FINDINGS: RIGHT KNEE: 3 views of the right knee were obtained. The patient has a history of patellar injury 1 month ago. There is a nondisplaced fracture of the inferior patella, and the fracture line is slightly less well-defined than seen on the prior exam. A moderate to large joint effusion is present. Degenerative change is noted, as well as vascular calcifications. There are questionable osteochondral lesions in the inferior medial femoral condyle. Correlation with MR would be helpful for further evaluation. IMPRESSION: Nondisplaced fracture of the inferior patella, fracture line slightly less well-defined than seen on the prior exam. Moderate to large joint effusion and degenerative change as described. There are also questionable osteochondral lesions in the inferior aspect of the medial femoral condyle. Correlation with MRI would be helpful for further evaluation. Reviewed, Interpreted and Dictated by Zeb Shah MD Transcribed by Niesha Morel Authenticated and [facility]
--- NOTE | 2024-08-27 12:14 | PC.NURSE ---
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
[2024-08-27] MEDS: OXYCODONE 5MG IMMEDIATE RELEASE TABLET 5 MG PO (12:29)
[2024-08-27] MEDS: ACETAMINOPHEN 500MG TAB 1000 MG PO (12:29)
--- NOTE | 2024-08-27 12:33 | PC.NURSE ---
Pt given pillow
[2024-08-27] MEDS: LIDOCAINE 1% 20ML MDV 20 ML IJ (12:57)
--- NOTE | 2024-08-27 13:05 | PC.NURSE ---
synovial fluid delivered to lab by this nurse
--- NOTE | 2024-08-27 13:14 | PC.NURSE ---
Gave the patient her phone and water.
[2024-08-27 14:02] LABS: Basophils % 0.3 % (0.1-2.0); Eosinophils # 0.1 K/mm3 (0.0-0.4); Eosinophils % 1.1 % (0.1-12.0); Hemoglobin 11.3 g/dL (12.2-16.2); Lymphocytes # 1.7 K/mm3 (0.7-4.5); Lymphocytes % 14.5 % (10-50); Mean Corpuscular HGB Conc 34.2 g/dL (31.8-35.4); Mean Corpuscular Hemoglobin 30.6 pg (27.0-31.2); Mean Corpuscular Volume 89.4 fl (81-99); Mean Platelet Volume 9.1 fl (7.4-10.4); Monocytes # 0.7 K/mm3 (0.1-1.0); Monocytes % 5.6 % (1.7-9.3); Neutrophils % 77.7 % (37.0-80.0); Platelet Count 296 K/mm3 (142-424); Red Blood Count 3.69 M/mm3 (4.20-5.40); Red Cell Distribution Width 15.3 % (11.5-17.5); White Blood Count 11.6 K/mm3 (4.8-10.8)
[2024-08-27 14:11] LABS: Alanine Aminotransferase 93 U/L (12-78); Alkaline Phosphatase 306 U/L (38-126); Anion Gap 12.1 mEq/L (5-15); Aspartate Amino Transferase 181 U/L (14-36); Bilirubin,Total 0.6 mg/dl (0.2-1.3); Blood Urea Nitrogen 24 mg/dl (7-17); Carbon Dioxide 27 mmol/L (22.0-30.0); Chloride 99 mmol/L (98-107); Creatinine Clearance Estimated 63 mL/min (50-200); Estimated Glomerular Filt Rate 64 ml/min (>60); GFR (African American) 77 ML/MIN (>60); Globulin 3.9 g/dL (1.3-3.2); Glucose 222 mg/dl (74-100); Potassium 4.1 mmoL/L (3.5-5.1); Sodium 134 mmol/L (136-145); Total Protein,Serum 7.9 g/dl (6.3-8.2)
[2024-08-27 14:16] LABS: C-Reactive Protein 232.4 mg/L (0-4)
[2024-08-27 14:17] LABS: D-Dimer 0.94 ug/mL (0.0-0.5)
--- NOTE | 2024-08-27 14:34 | PC.NURSE ---
[facility] Lab results from joint tap of R knee was given to Dr Linares
[2024-08-27 14:57] LABS: Erythrocyte Sedimentation Rate 96 mm/hr (0-30)
[2024-08-27] MEDS: 0.9 % SODIUM CHLORIDE 1000ML 1,000 ML 999 ML IV (14:57)
[2024-08-27] MEDS: HYDROMORPHONE 2MG/ML SYRINGE 0.5 MG IV (16:21)
--- NOTE | 2024-08-27 16:42 | ECG_ITS ---
APPROVED REPORT Exam: Resting ECG HR:87 bpm ECG Measurements Heart Rate 87 AXES NC 155 P -3 QRSd 146 QRS 86 QT 437 T 30 QTc 481 Conclusion SINUS RHYTHM RIGHT BUNDLE BRANCH BLOCK [120+ ms QRS DURATION, UPRIGHT V1, 40+ ms S IN I/aVL/V4/V5/V6] No STEMI Electronically signed by : DYANA ALEXANDER, 08/27/2024 23:45:54
--- NOTE | 2024-08-27 18:10 | PC.NURSE ---
Don speaking with [facility] ortho about transfer
--- NOTE | 2024-08-27 18:29 | PC.NURSE ---
UPDATED SON ON POC. PATIENT TALKING WITH SON AT THIS TIME. LAB AT BEDSIDE TO DRAW BLOOD CULTURES.
[2024-08-27] MEDS: VANCOMYCIN/WATER FOR INJ (PEG) 1.75 GM/350 ML PIGGYBACK IV (18:53)
[2024-08-27] MEDS: PIPERCILLIN/TAZO 3.375 GM in 0.9 % SODIUM CHLORIDE 50 ML IV (18:53)
[2024-08-27] MEDS: VANCOMYCIN CONSULT REQUEST 1 EACH NOTAPPLIC (18:53)
--- NOTE | 2024-08-28 15:52 | PC.NURSE ---
faxed blood culture prelim to [facility] where pt was transferred
[2024-08-29 13:30] LABS: Clarity,Fluid CLOUDY; Color,Fluid YELLOW
[2024-08-29 13:31] LABS: Crystal,Synovial/Joint Fld. NO CRYSTALS SEEN; Eosinophils,Fluid 0; Lining Cells, Synovial Fld 0; Lymphocytes,Fluid 1; Macrophages,Fluid 4; Nucleated cells, Syn. Fluid >100000; Polys,Fluid 95; RBC,Fluid 30000
--- NOTE | 2024-08-30 05:01 | EXP.EVENT.NO ---
0445 I was made aware by charge nurse that she had received a phone call for this patient from lab that her blood culture was positive for gram-positive cocci in clusters. I reviewed the ED note from this patient's encounter which demonstrates they had concerns for septic joint and patient was transferred to for further management. Charge nurse reached out to [facility] by phone and spoke with the patient's nurse and provided this information.
--- NOTE | 2024-08-30 05:15 | PC.NURSE ---
Primary RN notified of + blood cultures. Abdoulaye AARON took result
--- NOTE | 2024-08-30 12:14 | PC.NURSE ---
Received result of pt's blood culture-[facility], pt transferred to [facility] yesterday. Blood culture results faxed to [phone] ().
== END 2024-08-27 19:42 | disposition short-term general hospital (02) ==
PROVIDERS: Physician Assistant; Emergency Provider Emergency Medicine; PCP Nurse Practitioner Family
DX: M00.9 Pyogenic arthritis, unspecified (principal); M25.561 Pain in right knee
CPT/HCPCS: 20611; 36415; 73562; 80053; 85025; 85378; 85651; 86140; 87040; 87070; 87077; 87186; 87205; 89051; 89060; 93005; 96361; 96365; 96366; 96367; 96374; 99284; J1171; J2543; J3372; J7030

== ENCOUNTER 2024-10-19 19:23 | Inpatient (IN) | payer MEDICARE, MEDICAID, SELFPAY ==
[2024-10-19] VITALS (7 sets, daily range): BP systolic 142–152; BP diastolic 79–93; PULSE 99–108; RESP 18–23; TEMP 36.6–36.9; O2SAT 96–100; BMI 29.2; BMI 31.8
--- OUTSIDE RECORDS SUMMARY | 2024-10-19 19:31 | XMS_ITS | Data Portability ---
Author Organization [facility] [place] [facility] Address [address] [facility] [facility] [place] [address] Care Team Providers Care Missile Inspector Preflight Name Role Phone ATILIO CUELLAR Primary Care Provider JOSETTE BENAVIDES End Packer [phone] Assessment No assessment recorded. Plan of Treatment Reminders Order Date Submit Date Provider Last Modified By Organization Details Last Modified Time Details Appointments None recorded. Lab glucose, fingersti ck, blood 2020 021 [email or web address] 8 [facility] , [address] [place] [address], [phone], 11:28:55 hemoglobi n A1C, fingersti ck 2020 021 8 [facility] , [address] [place] [address], [phone], 11:28:56 glucose, fingersti ck, blood 2020 021 [email or web address] 8 [facility] , [address] [place] [address], [phone], 09:54:19 hemoglobi n A1C, fingersti ck 2020 021 [email or web address] 8 [facility] , [address] [place] [address], [address], 09:54:19 glucose, fingersti ck, blood 2019 020 [email or web address] 8 [facility], [address] [place], [address], 0 09:41:05 hemoglobi n A1C, fingersti ck 2019 020 [email or web address] 8 [facility], [address] [place], [address], 0 09:41:05 glucose, fingersti ck, blood 2019 020 [email or web address] 8 [facility], [address] [place], [address], 0 14:34:08 hemoglobi n A1C, fingersti ck 2019 020 [email or web address] 8 [facility], [address] [place], [address], 0 14:34:08 Referral None recorded. Procedures None recorded. Surgeries None recorded. Imaging None recorded. Medication Orders FreeStyle Lite Strips 2020 [id number], [address] [place], [address], 1 11:28:58 Humalog KwikPen (U-100) Insulin 100 unit/mL subcutane ous 2020 [id number], [address] [place], [address], 1 11:28:59 Lantus Solostar U-100 Insulin 100 unit/mL (3 mL) subcutane ous pen 2020 [facility], [address] [place], [address], 1 11:28:59 Basaglar KwikPen U-100 Insulin 100 unit/mL (3 mL) subcutane ous 2020 021 [facility], [address] [place], [address], 1 09:54:22 Admelog SoloStar U-100 Insulin lispro 100 unit/mL subcutane ous pen 2020 021 [facility], [address] [place], [address], 1 16:19:47 FreeStyle Lite Strips 2020 021 [facility], [address] [place], [address], 1 09:54:22 Accu-Chek Guide test strips [email or web address] [facility] #3016, [address] [place] [address], [address], 1 09:32:42 Basaglar KwikPen U-100 Insulin 100 unit/mL (3 mL) subcutane ous [address] [facility]3016, [address] [place], [address], 0 09:41:07 Humalog KwikPen (U-100) Insulin 100 unit/mL subcutane ous [email or web address] [facility], [address] [place] [address], [address], 0 10:33:21 Accu-Chek Guide test strips [email or web address] [facility]016, [address] [place] [address], [address], 1 09:32:42 Patient TargetsNo targets recorded. Patient Instructions Encounter Date Encounter Id Patient Instructions Last Modified By Organization Details Last Modified Time 02/27/2020 [id number] -Increase lantus/basaglar to 65 units twice daily. -Start humalog. Inject 15 units three times daily before your meals. Take this insulin 5-10min before you eat. - Monitor blood glucose at least 1 2 3 times per day before breakfast and before dinner or at bedtime and any time you feel low. -Call our office in 1 week with your blood glucose logs , or send them directly through the patient portal. Blood glucose goals : Fasting (before breakfast) 80-130 2 hours after meal <180 Low = <70 (Treat by drinking 6oz juice and recheck in 15 min, repeat if still <70) - Restrict carbohydrates (Men: less than 60g per meal and less than 15g per snack; Women: less than 45g/meal and less than 15g/snack). Eat three meals per day. - Try to be more active as weight loss will help with insulin sensitization. Goal: 30 minutes per day, at least 5 days per week. -Check your feet daily. Wear comfortable shoes and socks that fit. A yearly foot exam by a provider is recommended. -Recommend annual dilated eye exam. Please have results faxed to our office . -Recommend annual flu shot. *Please bring your glucometer to every endocrinology appointment. Sign up for the patient portal: [email or web address] Not available 02/27/2020 14:26:08 04/28/2020 [id number] -Continue basagl ar to 65 units twice daily. -Adjust humalog. Inject 15 units three times daily before your meals. Take this insulin 5-10min before you eat. - Monitor blood glucose at least 1 2 3 times per day before breakfast and before dinner or at bedtime and any time you feel low. -Call our office in 1 week with your blood glucose logs , or send them directly through the patient portal. Blood glucose goals : Fasting (before breakfast) 80-130 2 hours after meal <180 Low = <70 (Treat by drinking 6oz juice and recheck in 15 min, repeat if still <70) - Restrict carbohydrates (Men: less than 60g per meal and less than 15g per snack; Women: less than 45g/meal and less than 15g/snack). Eat three meals per day. - Try to be more active as weight loss will help with insulin sensitization. Goal: 30 minutes per day, at least 5 days per week. -Check your feet daily. Wear comfortable shoes and socks that fit. A yearly foot exam by a provider is recommended. -Recommend annual dilated eye exam. Please have results faxed to our office . -Recommend annual flu shot. *Please bring your glucometer to every endocrinology appointment. Sign up for the patient portal: [email or web address] Not available 04/28/2020 12:42:01 01/14/2021 [id number] -Continue basagl ar to 64 units twice daily. -Restart admelog. Inject 15 units three times daily before your meals. Take this insulin 5-10min before you eat. -Discontinue tradjenta. - Monitor blood glucose at least 1 2 3 times per day before breakfast and before dinner or at bedtime and any time you feel low. -Call our office in 1 week with your blood glucose logs , or send them directly through the patient portal. Blood glucose goals : Fasting (before breakfast) 80-130 2 hours after meal <180 Low = <70 (Treat by drinking 6oz juice and recheck in 15 min, repeat if still <70) - Restrict carbohydrates (Men: less than 60g per meal and less than 15g per snack; Women: less than 45g/meal and less than 15g/snack). Eat three meals per day. - Try to be more active as weight loss will help with insulin sensitization. Goal: 30 minutes per day, at least 5 days per week. -Check your feet daily. Wear comfortable shoes and socks that fit. A yearly foot exam by a provider is recommended. -Recommend annual dilated eye exam. Please have results faxed to our office . -Recommend annual flu shot. *Please bring your glucometer to every endocrinology appointment. Sign up for the patient portal: [email or web address] Not available 01/14/2021 10:33:38 04/13/2021 [id number] -Increase Lantus to 70 units twice daily. -Increase humalog. Inject 20units three times daily before your meals. Take this insulin 5-10min before you eat. -Continue current supply of tradjenta until you run out. Do not refill. - Monitor blood glucose at least 1 2 3 times per day before breakfast and before dinner or at bedtime and any time you feel low. -Call our office in 1 week with your blood glucose logs , or send them directly through the patient portal. Blood glucose goals : Fasting (before breakfast) 80-130 2 hours after meal <180 Low = <70 (Treat by drinking 6oz juice and recheck in 15 min, repeat if still <70) - Restrict carbohydrates (Men: less than 60g per meal and less than 15g per snack; Women: less than 45g/meal and less than 15g/snack). Eat three meals per day. - Try to be more active as weight loss will help with insulin sensitization. Goal: 30 minutes per day, at least 5 days per week. -Check your feet daily. Wear comfortable shoes and socks that fit. A yearly foot exam by a provider is recommended. -Recommend annual dilated eye exam. Please have results faxed to our office . -Recommend annual flu shot. *Please bring your glucometer to every endocrinology appointment. Sign up for the patient portal: [email or web address] Not available 04/13/2021 11:29:40 Reason for Referral None Reported. Results Created Date Observation Date Name Description Value Unit Range Abnormal Flag Note LastModifiedBy Organization Detail LastModifiedTime 04/09/2004/09/2021 hemog lobin A1Crafal hemoglobin A1C % 12.5 % 4.0 - 5.6 Not Available [facility] [address] [place], [address], 04/09/2021 09:59:46 04/09/2004/09/2021 gluco serafal, blood glucose, fingerstick 378 mg/dL 70 - 100 Not Available [facility] [address] [place] [address], [address], 04/09/2021 09:59:45 01/15/20 21 01/14/2021 hemog lobin A1C, finge rstic k hemoglobin A1C % 12.7 % 4.0 - 5.6 Not Available [facility] [address], [address], 01/14/2021 09:36:54 01/15/2001/14/2021 gluco se, finge rstic k, blood glucose, fingerstick 381 mg/dL 70 - 100 Not Available [facility] [address], [address], 01/14/2021 09:36:17 04/25/20 20 04/25/2020 hemog lobin A1C, finge rstic k hemoglobin A1C % 12.0 % 4.0 - 5.6 Not Available [facility] [address], [address], 04/25/2020 09:25:42 04/25/2004/25/2020 gluco se, finge rstic k, blood glucose, fingerstick 322 mg/dL 70 - 100 Not Available [facility] [address], [address], 04/25/2020 09:25:42 02/27/2002/27/2020 hemog lobin A1C, finge rstic k hemoglobin A1C % 13.6 % 4.0 - 5.6 Not Available [facility] [address], [address], 02/26/2020 09:37:53 02/27/2002/27/2020 gluco se, finge rstic k, blood glucose, fingerstick 479 mg/dL 70 - 100 Not Available [facility] [address], [address], 02/26/2020 09:37:51 Result Notes None recorded. Problems No Known Problems Medical Equipment None Reported. Allergies Allergen ID Allergen Name Allergen Category Reaction Reaction Severity Criticality Documentation Date Start Date Code Code System Note Provider Name and Address Organization Details Recorded Time 790808 [employer] [facility] n Not available Not available Not available 02/27/2020 81276 64 RxNorm Yolanda Bucky [facility] 0 13:47:29 Medications Name Sig Start Date Stop Date Status Note LastModified by Organization Details LastModified Time cyclobenz aprine 10 mg tablet TAKE 1 TABLET BY MOUTH EVERY 8 HOURS active Not Available Not Available No t Available amoxicill in 500 mg capsule TAKE 1 CAPSULE BY MOUTH EVERY 12 HOURS FOR 10 DAYS 02/26 completed Not Available Not Available Not Available atorvasta tin 40 mg tablet TAKE 1 TABLET BY MOUTH EVERY DAY IN THE EVENING active Not Available Not Available No t Available methocarb kayce 500 mg tablet TAKE 2 TABLETS BY MOUTH EVERY 6 HOURS NEEDED active Not Available Not Available No t Available levothyro xine 175 mcg tablet TAKE 1 TABLET BY MOUTH EVERY MORNING active Not Available Not Available No t Available bupropion HCl SR 150 mg tablet,12 hr sustained -release TAKE 1 TABLET BY MOUTH TWICE A DAY active Not Available Not Available No t Available ascorbic acid (vitamin C) 1,000 mg tablet TAKE 1 TABLET BY MOUTH EVERY DAY active Not Available Not Available No t Available carvedilo l 6.25 mg tablet TAKE 1 TABLET BY MOUTH TWICE A DAY active Not Available Not Available No t Available gabapenti n 600 mg tablet TAKE 2 TABLETS BY MOUTH EVERY 8 HOURS active Not Available Not Available No t Available cefuroxim e axetil 250 mg tablet TAKE 1 TABLET BY MOUTH TWICE A DAY active Not Available Not Available No t Available atorvasta tin 20 mg tablet TAKE 1 TABLET BY MOUTH EVERY EVENING 02/26 completed Not Available Not Available Not Available ropinirol e 1 mg tablet TAKE 2 TABLETS BY MOUTH AT BEDTIME active Not Available Not Available No t Available azithromy selin 250 mg tablet TAKE ONE TABLET BY MOUTH ONCE DAILY 02/26 completed Not Available Not Available Not Available tizanidin e 4 mg tablet TAKE 1/2 TO 1 TABLET BY MOUTH 3 TIMES DAILY active Not Available Not Available No t Available fluconazo le 150 mg tablet TAKE 1 TABLET BY MOUTH ONCE A WEEK active Not Available Not Available No t Available citalopra m 10 mg tablet TAKE 1 TABLET BY MOUTH EVERY DAY active Not Available Not Available No t Available clarithro mycin 500 mg tablet TAKE 1 TABLET BY MOUTH TWICE DAILY 02/26 completed Not Available Not Available Not Available FreeStyle Lancets 28 gauge USE DIRECTED 3 TIMES A DAY active Not Available Not Available No t Available ondansetr on HCl 4 mg tablet TAKE 2 TABLETS BY ORAL ROUTE EVERY 8 HOURS NEEDED active Not Available Not Available No t Available clopidogr el 75 mg tablet TAKE 1 TABLET BY MOUTH EVERY DAY active Not Available Not Available No t Available allopurin ol 100 mg tablet TAKE 1 TABLET BY MOUTH EVERY DAY active Not Available Not Available No t Available sulfameth oxazole 800 mg-trimet hoprim 160 mg tablet TAKE 1 TABLET BY MOUTH EVERY 12 HOURS FOR 7 DAYS 04/13 completed Not Available Not Available Not Available hydrocodo ne 10 mg-acetam inophen 325 mg tablet TAKE 1 TABLET BY MOUTH EVERY 6 HOURS NEEDED active Not Available Not Available No t Available omeprazol e 40 mg capsule,d elayed release TAKE 1 CAPSULE BY MOUTH EVERY DAY 30 MINUTES BEFORE MORNING MEAL active Not Available Not Available No t Available tramadol 50 mg tablet TAKE 2 TABLETS BY MOUTH 3 TIMES DAILY NEEDED active Not Available Not Available No t Available amitripty line 50 mg tablet TAKE 1 TABLET BY MOUTH EVERYDAY AT BEDTIME active Not Available Not Available No t Available ketorolac 10 mg tablet active Not Available Not Available Not Available oxycodone -acetamin ophen 5 mg-325 mg tablet TAKE 1 TABLET BY MOUTH EVERY 6 HOURS NEEDED 01/14 completed Not Available Not Available Not Available magnesium oxide 400 mg (241.3 mg magnesium ) tablet TAKE 1 TABLET BY MOUTH EVERY DAY active Not Available Not Available No t Available amitripty line 10 mg tablet TAKE 1 TABLET BY MOUTH EVERYDAY AT BEDTIME 02/26 completed Not Available Not Available Not Available meclizine 25 mg tablet TAKE 1 TABLET BY MOUTH EVERY 8 HOURS NEEDED active Not Available Not Available No t Available hydrocodo ne 7.5 mg-acetam inophen 325 mg tablet TAKE 1 TABLET BY MOUTH EVERY 6 HOURS NEEDED 01/14 completed Not Available Not Available Not Available cephalexi n 500 mg capsule TAKE 1 CAPSULE BY MOUTH 2 (TWO) TIMES A DAY FOR 10 DAYS. 02/26 completed Not Available Not Available Not Available ferrous sulfate 325 mg (65 mg iron) tablet TAKE 1 TABLET BY MOUTH IN THE EVENING active Not Available Not Available No t Available metformin 1,000 mg tablet TAKE 1 TABLET BY MOUTH TWICE A DAY 02/26 completed kidneys Not Available Not Available Not Available levothyro xine 150 mcg tablet TAKE 1 TABLET BY MOUTH ONCE DAILY 02/26 completed Not Available Not Available Not Available nicotine 21 mg/24 hr daily transderm al patch PLACE 1 PATCH ON THE SKIN DIRECTED BY PROVIDER DAILY. 04/28 completed Not Available Not Available Not Available pramipexo le 0.25 mg tablet TAKE 1 TABLET BY MOUTH NIGHTLY 2 HOURS BEFORE BEDTIME active Not Available Not Available No t Available Pain Relief Regular Strength 325 mg tablet TAKE 2 TABS EVERY 6 HOURS NEEDED active Not Available Not Available No t Available aspirin 81 mg chewable tablet CHEW AND SWALLOW 1 TABLET BY MOUTH ONCE DAILY active Not Available Not Available No t Available hydrochlo rothiazid e 25 mg tablet TAKE 1 TABLET BY MOUTH EVERY DAY active Not Available Not Available No t Available zolpidem 5 mg tablet PLEASE SEE ATTACHED FOR DETAILED DIRECTIO NS active Not Available Not Available No t Available furosemid e 20 mg tablet TAKE 1 TABLET BY MOUTH DAILY active Not Available Not Available No t Available ergocalci ferol (vitamin D2) 1,250 mcg (50,000 unit) capsule TAKE 1 CAPSULE BY MOUTH ONCE WEEKLY active Not Available Not Available No t Available cefuroxim e axetil 500 mg tablet TAKE 1 TABLET BY MOUTH EVERY 12 HOURS FOR 10 DAYS 02/26 completed Not Available Not Available Not Available levofloxa selin 500 mg tablet 04/28 completed Not Available Not Available Not Available lisinopri l 40 mg tablet TAKE 1 TABLET BY MOUTH EVERY DAY active Not Available Not Available No t Available cefdinir 300 mg capsule TAKE 1 CAPSULE BY MOUTH TWICE A DAY 02/26 completed Not Available Not Available Not Available doxycycli ne hyclate 100 mg tablet TAKE 1 TABLET BY MOUTH TWICE A DAY 02/26 completed Not Available Not Available Not Available nitrofura ntoin monohydra te/macroc rystals 100 mg capsule TAKE 1 CAPSULE BY MOUTH EVERY 12 HOURS FOR 10 DAYS 04/13 completed Not Available Not Available Not Available Januvia 100 mg tablet TAKE 1 TABLET BY MOUTH EVERY DAY 02/26 completed Not Available Not Available Not Available FreeStyle Lite Strips USE DIRECTED 3 TIMES PER DAY E11.65 active Not Available Not Available No t Available Lantus Solostar U-100 Insulin 100 unit/mL (3 mL) subcutane ous pen INJECT 70 UNITS UNDER THE SKIN TWICE A DAY active Not Available Not Available No t Available Humalog KwikPen (U-100) Insulin 100 unit/mL subcutane ous INJECT 20 UNITS UNDER THE SKIN 3 TIMES A DAY BEFORE MEALS active Not Available Not Available No t Available FreeStyle [place] Lite kit USE DIRECTED active Not Available Not Available No t Available vitamin B complex-v itamin C-folic acid 400 mcg tablet TAKE 1 TABLET BY MOUTH EVERY DAY active Not Available Not Available No t Available Tradjenta 5 mg tablet TAKE 1 TABLET BY MOUTH EVERY DAY REPLAC ES JANUVIA* * active Not Available Not Available No t Available Probiotic 3 billion cell capsule TAKE 1 CAPSULE BY MOUTH ONCE DAILY active Not Available Not Available No t Available OneTouch Verio Meter active Not Available Not Available Not Available BD Ultra-Fin e Micro Pen Needle 32 gauge x 1/4 USE TO INJECT INSULIN TWICE DAILY active Not Available Not Available No t Available Admelog U-100 Insulin lispro 100 unit/mL subcutane ous solution Please specify directio ns, refills and quantity active INSURANC E PREFERS ADMELOG, PT SAYS PHARMACY HAS NOT RECEIVED RX Not Available Not Available Not Available Accu-Chek Fastclix Lancet Drum USE TO TEST 4 TIMES A DAY 02/27 completed Not Available Not Available Not Available BD Shanel 2nd Gen Pen Needle 32 gauge x 5/32 USE DIRECTED 5 TIMES DAILY active Not Available Not Available No t Available Flucelvax Quad (PF) 60 mcg (15 mcg x 4)/0.5 mL IM syringe inject 0.5 millilit ers intramus cularly 02/26 completed Not Available Not Available Not Available Vitals Date Recorded Body weight Body mass index (BMI) Body height Heart rate Systolic blood pressure Diastolic blood pressure Provider Name and Address Organization Details Last Updated DateTime 0 34814.8 1 g 33.3 kg/m2 157.48 cm 104 /min 116 mm[Hg] 74 mm[Hg] [facility] 0 13:53:46 Date Recorded Body height Body mass index (BMI) Body weight Heart rate Systolic blood pressure Diastolic blood pressure Provider Name and Address Organization Details Last Updated DateTime 0 157.48 cm 34.4 kg/m2 84035.3 7 g 82 /min 122 mm[Hg] 80 mm[Hg] Yolanda Lawler [facility] 0 09:18:31 Date Recorded Body height Body mass index (BMI) Body weight Heart rate Systolic blood pressure Diastolic blood pressure Provider Name and Address Organization Details Last Updated DateTime 1 157.48 cm 32.9 kg/m2 52955.6 3 g 82 /min 120 mm[Hg] 80 mm[Hg] Yolanda [facility] 1 09:35:05 Date Recorded Body height Heart rate Body mass index (BMI) Body weight Systolic blood pressure Diastolic blood pressure Provider Name and Address Organization Details Last Updated DateTime 1 157.48 cm 99 /min 31.9 kg/m2 66615.8 7 g 114 mm[Hg] 78 mm[Hg] [facility] 1 10:14:51 Social History Question Answer Notes LastModified by Organizat ion Details LastModified Time Tobacco Smoking Status Current Every Day [facility] 02/27/2020 13:54:43 How Much Tobacco Do You Smoke? 0.5 PPD Information not available 02/27/2020 How Many Years Have You Smoked Tobacco? 40 Information not available 02/27/2020 Sex: Unknown Functional Status None recorded. Mental Status None recorded. Family History Relationship Description Onset Age of this Age Resolved Age Notes LastModified by Organization Details LastModified Time Brother Diabetes mellitus [email or web address] Not available 02/26 13:54:34 Sister Diabetes mellitus [email or web address] Not available 02/26 13:54:34 Medical History No medical history recorded. Gynecological HistoryNo gynecological history recorded. Obstetrics History GPAL:G 0 P 0 0 0 0 Past Encounters Encounter ID Performer Location Encounter Start Date Encounter Closed Date Diagnosis/Indication Diagnosis SNOMED-CT Code Diagnosis ICD10 Code Diagnosis Note [id number] PARAG MORILLO APRN [facility] [address] [place] [address] 02/27/2020 13:24:45 02/27/2020 14:38:19 Uncontrolled type 2 diabetes mellitus 618660338 E11.65 Diabetes mellitus {{Type 1 Type 2*}}, {{uncontro lled* cont rolled}}. ? ? A1C at the office today is {{13.4# }} %. Last A1c {{11.4# }} % 01/19/20. ? ? Goal A1C by ADA criteria is less than 7%. Random blood glucose 479 Recommenda tions: -Discussed diabetes and impact of diet and exercise. Discussed potential treatment options, side effects, and cost. Agreed on the following: -Increase lantus/bas aglar to 65 units twice daily. -Start humalog. Inject 15 units three times daily before your meals. Take this insulin 5-10min before you eat. - Patient is instructed to restrict {{his her* }} carbohydra maya (less than 45 g per meal and less than 15 g per snack). Instructed on carbohydra te counting and importance of carbohydra te consistenc y. Handout given and reviewed. Carb book provided. - Monitor blood glucose at least {{1 2 3* 4 5}} times per day {{before breakfast before breakfast and before dinner or at bedtime* b efore meals and before bedtime}} and any time {{he she*} } feels low. Blood glucose goals reviewed (i.e. fasting 80-130, post-prand ial <180, and hypoglycem ia <70). Patient advised to call our office if recurrent hypoglycem ia. - Untoward consequenc es of uncontroll ed diabetes discussed, including but not limited to peripheral diabetic neuropathy , diabetic nephropath y, diabetic retinopath y, heart attack, and stroke. - Dietitian referral: {{Yes No* Declined P reviously referred}} - Encouraged to be active (30 minutes of moderate intensity exercise i.e. walking 5 times weekly). Weight loss will help with insulin sensitizat ion. - Hypoglycem ia symptoms explained and treatment for this reviewed. - Patient is {{up to date on* needs} } foot exam. - Patient is {{up to date on* needs} } eye exam. - Patient is {{up to date on needs* inappropri ate for}} urine testing for microalbum in. BECCA {{yes no*} }; ARB {{yes no*} } - Patient verbalized understand ing of treatment plan. All questions answered. -Last labs on 01/24/20 BUN 14 Cr 0.73 GFR 91 AST 46 ALT 58 TSH 0.79 Hyperlipidemia [id number] E78.5 Goal LDL is under 100 mg/dl. Continue current statin therapy as ordered per PCP. Continue dietary changes as recommende d. Essential hypertension [id number] I10 Goal B.P is less than 140/90 mmHg. Continue current anti-hyper tensive medication s as appropriat e per patient? s PCP. [id number] PARAG MORILLO APRN [facility] [address] [place] [address] 04/28/2020 09:01:37 04/28/2020 09:43:06 Uncontrolled type 2 diabetes mellitus [id number] E11.65 Diabetes mellitus {{Type 1 Type 2*}}, {{uncontro lled* cont rolled}}. ? ? A1C at the office today is 12%, down from {{13.4# }} % 02/27/20. ? ? Goal A1C by ADA criteria is less than 7%. Random blood glucose 322. Recommenda tions: -Discussed diabetes and impact of diet and exercise. Discussed potential treatment options, side effects, and cost. Agreed on the following: -Continue basaglar to 65 units twice daily. -Adjust humalog. Inject 15 units three times daily before your meals. Take this insulin 5-10min before you eat. -Check BG 3x/day and call with logs in 1 week for further titration. - Patient is instructed to restrict {{his her* }} carbohydra maya (less than 45 g per meal and less than 15 g per snack). Reinforced importance of carbohydra te consistenc y and dietary discretion . - Monitor blood glucose at least {{1 2 3* 4 5}} times per day {{before breakfast before breakfast and before dinner or at bedtime* b efore meals and before bedtime}} and any time {{he she*} } feels low. Blood glucose goals reviewed (i.e. fasting 80-130, post-prand ial <180, and hypoglycem ia <70). Patient advised to call our office if recurrent hypoglycem ia. - Untoward consequenc es of uncontroll ed diabetes discussed, including but not limited to peripheral diabetic neuropathy , diabetic nephropath y, diabetic retinopath y, heart attack, and stroke. - Dietitian referral: {{Yes No* Declined P reviously referred}} - Encouraged to be active (30 minutes of moderate intensity exercise i.e. walking 5 times weekly). Weight loss will help with insulin sensitizat ion. - Hypoglycem ia symptoms explained and treatment for this reviewed. - Patient is {{up to date on* needs} } foot exam. - Patient is {{up to date on* needs} } eye exam. - Patient is {{up to date on needs* inappropri ate for}} urine testing for microalbum in. BECCA {{yes no*} }; ARB {{yes no*} } - Patient verbalized understand ing of treatment plan. All questions answered. -Last labs on 01/24/20 BUN 14 Cr 0.73 GFR 91 AST 46 ALT 58 TSH 0.79 Spent 25 total minutes with the patient today in counseling regarding informatio n documented in my assessment and plan above. The time represents more than 50% of the encounter. Hyperlipidemia 85931091 E78.5 Goal LDL is under 100 mg/dl. Continue current statin therapy as ordered per PCP. Continue dietary changes as recommende d. Essential hypertension [id number] I10 Goal B.P is less than 140/90 mmHg. Continue current anti-hyper tensive medication s as appropriat e per patient? s PCP. [id number] PARAG MORILLO APRN ENDOCRINO LOGY [address] [place] [address] 01/14/2021 09:19:35 01/15/2021 11:38:36 Uncontrolled type 2 diabetes mellitus [id number] E11.65 Diabetes mellitus {{Type 1 Type 2*}}, {{uncontro lled* cont rolled}}. ? ? A1C at the office today is 12.7%, up from 12%, 04/28/20. ? ? Goal A1C by ADA criteria is less than 7%. Random blood glucose 381 fasting. Recommenda tions: -Discussed diabetes and impact of diet and exercise. Discussed potential treatment options, side effects, and cost. Agreed on the following: -Continue basaglar to 64 units twice daily. -Restart admelog. Inject 15 units three times daily before your meals. Take this insulin 5-10min before you eat.-Disco ntinue tradjenta (does not appear to be adding benefit).- Check BG 3x/day and call with logs in 1 week for further titration. - Patient is instructed to restrict {{his her* }} carbohydra maya (less than 45 g per meal and less than 15 g per snack). Reinforced importance of carbohydra te consistenc y and dietary discretion . - Monitor blood glucose at least {{1 2 3* 4 5}} times per day {{before breakfast before breakfast and before dinner or at bedtime* b efore meals and before bedtime}} and any time {{he she*} } feels low. Blood glucose goals reviewed (i.e. fasting 80-130, post-prand ial <180, and hypoglycem ia <70). Patient advised to call our office if recurrent hypoglycem ia. - Untoward consequenc es of uncontroll ed diabetes discussed, including but not limited to peripheral diabetic neuropathy , diabetic nephropath y, diabetic retinopath y, heart attack, and stroke. - Dietitian referral: {{Yes No* Declined P reviously referred}} - Encouraged to be active (30 minutes of moderate intensity exercise i.e. walking 5 times weekly). Weight loss will help with insulin sensitizat ion. - Hypoglycem ia symptoms explained and treatment for this reviewed. - Patient is {{up to date on* needs} } foot exam. - Patient is {{up to date on* needs} } eye exam. - Patient is {{up to date on needs* inappropri ate for}} urine testing for microalbum in. BECCA {{yes no*} }; ARB {{yes no*} }; Will request last labs from Dr. Meneses, order at next visit if needed. - Patient verbalized understand ing of treatment plan. All questions answered. -Last labs on 01/24/20 BUN 14 Cr 0.73 GFR 91 AST 46 ALT 58 TSH 0.79 Hyperlipidemia [id number] E78.5 Goal LDL is under 100 mg/dl. Continue current statin therapy as ordered per PCP. Continue dietary changes as recommende d. Essential hypertension [id number] I10 Goal B.P is less than 140/90 mmHg. Continue current anti-hyper tensive medication s as appropriat e per patient? s PCP. [id number] PARAG MORILLO APRN ENDOCRINO LOGY [address] [place] [address] 04/13/2021 10:02:27 04/17/2021 12:36:37 Uncontrolled type 2 diabetes mellitus [id number] E11.65 Diabetes mellitus {{Type 1 Type 2*}}, {{uncontro lled* cont rolled}}. ? ? A1C at the office today is 12.5%, down from 12.7%, 01/14/21. ? ? Goal A1C by ADA criteria is less than 7%. Random blood glucose 378. Recommenda tions: -Discussed diabetes and impact of diet and exercise. Discussed potential treatment options, side effects, and cost. Agreed on the following: -Increase Lantus to 70 units twice daily. -Increase humalog. Inject 20units three times daily before your meals. Take this insulin 5-10min before you eat.-Eva nue current supply of tradjenta until you run out. Do not refill.-Ch dave BG 3x/day and call with logs in 1 week for further titration. - Patient is instructed to restrict {{his her* }} carbohydra maya (less than 45 g per meal and less than 15 g per snack). Reinforced importance of carbohydra te consistenc y and dietary discretion . - Monitor blood glucose at least {{1 2 3* 4 5}} times per day {{before breakfast before breakfast and before dinner or at bedtime* b efore meals and before bedtime}} and any time {{he she*} } feels low. Blood glucose goals reviewed (i.e. fasting 80-130, post-prand ial <180, and hypoglycem ia <70). Patient advised to call our office if recurrent hypoglycem ia. - Untoward consequenc es of uncontroll ed diabetes discussed, including but not limited to peripheral diabetic neuropathy , diabetic nephropath y, diabetic retinopath y, heart attack, and stroke.* - Dietitian referral: {{Yes No* Declined P reviously referred}} - Encouraged to be active (30 minutes of moderate intensity exercise i.e. walking 5 times weekly). Weight loss will help with insulin sensitizat ion. - Hypoglycem ia symptoms explained and treatment for this reviewed. - Patient is {{up to date on* needs} } foot exam. - Patient is {{up to date on* needs} } eye exam. - Patient is {{up to date on needs* inappropri ate for}} urine testing for microalbum in. BECCA {{yes no*} }; ARB {{yes no*} }; Will request last labs from Dr. Cuellar/[facility] , order at next visit if needed. - Patient verbalized understand ing of treatment plan. All questions answered. -Last labs on 01/24/20- requested labs from Dr. Cuellar/[facility] BUN 14 Cr 0.73 GFR 91 AST 46 ALT 58 TSH 0.79 Hyperlipidemia [id number] E78.5 Goal LDL is under 100 mg/dl. Continue current statin therapy as ordered per PCP. Continue dietary changes as recommende d. Essential hypertension [id number] I10 Goal B.P is less than 140/90 mmHg. Continue current anti-hyper tensive medication s as appropriat e per patient? s PCP. Health Concerns Section Related Observation LastModified by Organization Detai ls LastModified Time None Recorded Concern Status LastModified by Organization Details LastModified Time None Recorded Advance Directives Directive None Recorded Payers Encounter Date Sequence Insurance Name Policy Number Policy Mcdonald Covered Member ID Mcdonald Member ID Guarantor Name 02/27/2020 1 [facility] (MEDICAID REPLACEMENT - HMO) Micheline Hernandez [id number] Micheline Coheniam 04/28/2020 1 [facility] ([facility]ICA[facility]PLACEMENT - HMO) Micheline Coheniam [id number] Micheline Coheniam 01/14/2021 1 [employer] [facility] (MEDICAID REPLACEMENT - HMO) Micheline Mary [id number] Michelinecatarino Coheniam 04/13/2021 1 [facility] (MEDICAID REPLACEMENT - HMO) Micheline Coheniam [id number] Micheline Hernandez Notes Date Note Type Note Provider Name and Address Organization Details Recorded Time 0 text/html Mrs. Hernandez is a 59 year old female patient with a past medical history significant for hypertension, hyperlipidemia, hypothyroidism, and uncontrolled diabetes, who is seen at the office today at the request of Dr. Meneses. Patient was diagnosed with diabetes approximately 10-15 years ago. Patient has tried oral meds- metformin (CKD), invokana (hypotension/dizziness/A KI), actos (2 years ago). On insulin for 7-8 years. Hyperglycemia past year, issues with kidney/stomach/severe neuropathy/gout/needs knee replacements/ chronic back pain. Out of tradjenta for 2-4 weeks. History of DVT. Pt states she has a sliding scale for humalog but has not been using it consistently, gave 3 boluses yesterday 10-15 units each time, blood sugar remained HI. Today, she gave 5units before breakfast (raisin toast). Recent hospitalization on 01/19/20 for dehydration, hyperglycemia, [facility]. Insulin doses adjusted, metformin discontinued. Previously hypertensive on lisinopril and HCTZ, discontinued at hospital d/t hypotension. Recent diagnosis ERWIN. Current Treatment Regimen: Lantus/basaglar 60u BID Humalog SSI (5u this AM) No recent episodes of hypoglycemia. Patient is able to recognize and treat appropriately. Diet: 2-3 meals per day- eat late B: 2 pc raisin toast/ raisin bran/ poptart/ muffin/ coffee (black) L: salad/ ham; sandwich D: meat/mashed potatoes/GB/ corn/ S: peanuts/ ice cream Drinks: water/ ice MNT in the past: {{yes no*}} Diabetes Education class: {{yes no*}} Exercise: activity intolerance; Review finger sticks: see scanned logs Fastin-HI Evenin-HI Duration: {{chronic* new onset}} Control: {{usually well controlled uncontrolled*}}; {{improved worsened*}} since last visit; home blood sugar range {{low (below 70) normal high* }}; hemoglobin A1C has been {{greater than 9* 8-9 7-8 less than 7}}; hemoglobin A1C goal is less than 7 Compliance: compliant with medications; compliant with follow-up visits; compliant with diet; compliant with home glucose monitoring; no side effects from medications Self Care: monitoring glucose daily; seeing eye doctor regularly; checking feet regularly; Last dilated eye exam: 3 years ago- [facility]- ?glaucoma Associated Symptoms: no weight gain/weight loss; no dizziness; no sweats; no headaches; no confusion; no increased appetite; no increase thirst; no increased urination; no blurred vision; no calluses on feet; no SOB; no heart palpitations/racing heart Reports: hot flashes/night sweats (taking black cohosh- cut back recently d/t GI issues); increased thirst; intermittent blurred vision; burning/tingling of feet (severe-- pain mgmt [place]) Chronic Complications: Diabetic retinopathy: {{Yes No*}} Diabetic neuropathy: {{Yes* No}} Diabetic nephropathy: {{Yes No*}} Hypertension: {{Yes* No}} Hyperlipidemia: {{Yes* No}} PARAG MORILLO, [employer] SET UP OPERATOR [address] [place], [address], [facility] 02/27/2020 14:56:05 0 text/html Mrs. Hernandez is a 59 year old female patient with a past medical history significant for hypertension, hyperlipidemia, hypothyroidism, and uncontrolled diabetes, who is seen at the office today for a follow up. At last visit, we increased basaglar and adjusted humalog. Pt reports compliance and denies any side effects. Upon further questioning, pt states she is only taking the insulin when blood sugar is high for (her) (>200). Current Treatment Regimen: Basaglar 65u BID Humalog 15u TID-QID (<200=0, 200-300=10, >300=15) No recent episodes of hypoglycemia. Patient is able to recognize and treat appropriately. Diet: 2-3 meals per day- better - smaller portions B: 2 pc raisin toast/ raisin bran/ poptart/ muffin/ coffee (black) L: salad/ ham; sandwich D: meat/mashed potatoes/GB/ corn/ S: peanuts/ ice cream Drinks: water/ ice Exercise: activity intolerance; Review finger sticks: see scanned logs Fastin Evenin-400 Duration: {{chronic* new onset}} Self Care: monitoring glucose daily; seeing eye doctor regularly; checking feet regularly; Last dilated eye exam: 03/2020- [facility]- small cataract-- trace DR Associated Symptoms: no weight gain/weight loss; no dizziness; no sweats; no headaches; no confusion; no increased appetite; no increase thirst; no increased urination; no blurred vision; no calluses on feet; no SOB; no heart palpitations/racing heart Reports: hot flashes/night sweats (taking black cohosh- cut back recently d/t GI issues); increased thirst/dry mouth (eat ice all day); intermittent blurred vision (stable); burning/tingling of feet (severe-- pain mgmt [place]) Chronic Complications: Diabetic retinopathy: {{Yes No*}} Diabetic neuropathy: {{Yes* No}} Diabetic nephropathy: {{Yes No*}} Hypertension: {{Yes* No}} Hyperlipidemia: {{Yes* No}} PARAG MORILLO, [employer] SET UP OPERATOR [address] [place], [address], [facility] 04/28/2020 12:43:20 1 text/html Mrs. Hernandez is a 60 year old female patient with a past medical history significant for hypertension, hyperlipidemia, hypothyroidism, and uncontrolled diabetes, who is seen at the office today for a follow up. Last office visit on 04/28/20, pt has not followed up as recommended. At last visit, we adjusted humalog. Pt reports compliance and denies any side effects. Upon further questioning, she states she has not had the humalog d/t pharmacy needing PA. Needs new meter. Pt states she has not filled her basaglar since May, she is currently using her 's supply.Since last visit, someone has started tradjents, pt is unsure if it was Dr. Renan Benavides (Cardiology) or Dr. Meneses (PCP).Reports broken foot last month from dropping iron skillet, didn't feel it d/t neuropathy, developed swelling. Imaging suggested broken bone in top of foot, also piece of metal in bottom of foot (?pen needle), may need surgery to remove foreign object. She wore a cast for 2 weeks, then boot (which she is not wearing today).She also reports blockages in right leg- referred back to vascular surgeon for eval per cardiology. Current Treatment Regimen: Basaglar 64u BID Humalog 15u TID-QID (<200=0, 200-300=10, >300=15)---- PREVIOUSLYTradjenta 5mg QD No recent episodes of hypoglycemia. Patient is able to recognize and treat appropriately. Diet: 2-3 meals per day- high carb/sugar, no change- I cannot give up potatoes Exercise: activity intolerance; Review finger sticks: no meter today Duration: {{chronic* new onset}} Self Care: monitoring glucose daily; seeing eye doctor regularly; checking feet regularly; Last dilated eye exam: 03/2020- [facility] Lee- small cataract-- trace DR Associated Symptoms: no weight gain/weight loss; no dizziness; no sweats; no headaches; no confusion; no increased appetite; no increase thirst; no increased urination; no blurred vision; no calluses on feet; no SOB; no heart palpitations/racing heart Reports: hot flashes/night sweats (taking black cohosh- cut back recently d/t GI issues); imbalance; increased thirst/dry mouth (eat ice all day); intermittent blurred vision (stable); burning/tingling of feet (severe-- pain mgmt [place]- gabapentin); 8lb weight loss since last visit Chronic Complications: Diabetic retinopathy: {{Yes No*}} Diabetic neuropathy: {{Yes* No}} Diabetic nephropathy: {{Yes No*}} Hypertension: {{Yes* No}} Hyperlipidemia: {{Yes* No}} PARAG MORILLO, [employer] SET UP OPERATOR [address] [place], [address], [facility] 01/14/2021 10:35:48 1 text/html Mrs. Hernandez is a 60 year old female patient with a past medical history significant for hypertension, hyperlipidemia, hypothyroidism, and uncontrolled diabetes, who is seen at the office today for a follow up. At last visit, we restarted humalog and discontinued tradjenta. Insurance prefers lantus and humalog. Pt reports compliance and denies any side effects. It appears that she has continued the tradjenta (pharmacy had filled it). Plans to have surgery on left foot, multiple fractures, using bone stimulator. April 21, vascular surgery for ?stents ([facility]- Dr. Parham). New PCP- Dr. Cuellar. Hx: Reports broken foot 11/2020 from dropping iron skillet, didn't feel it d/t neuropathy, developed swelling. Imaging suggested broken bone in top of foot, also piece of metal in bottom of foot (?pen needle). Ongoing issues with bone displacement. Current Treatment Regimen: Lantus 65u BID Humalog 15u TID-QID (<200=0, 200-300=10, >300=15)---- PREVIOUSLY- acl, acdTradjenta 5mg QD No recent episodes of hypoglycemia. Patient is able to recognize and treat appropriately. Diet: 2-3 meals per day- high carb/sugar, no change- I cannot give up potatoes B: cerealL: bolognaS: baked meat/ grill/ air fryer Exercise: activity intolerance; Review finger sticks: no meter todayFasting (from memory): 300-400's500's in the evening Duration: {{chronic* new onset}} Self Care: monitoring glucose daily; seeing eye doctor regularly; checking feet regularly; Last dilated eye exam: 03/2020- [facility] Lee- small cataract-- trace DR-- pt to schedule Associated Symptoms: no weight gain; no dizziness; no sweats; no headaches; no confusion; no increased appetite; no increase thirst; no increased urination; no blurred vision; no calluses on feet; no SOB; no heart palpitations/racing heart Reports: hot flashes/night sweats (restarted black cohosh); imbalance; increased thirst/dry mouth (eat ice all day); intermittent blurred vision (stable); burning/tingling of feet (severe-- pain mgmt [place]- gabapentin); additional 6lb weight loss since last visit Chronic Complications: Diabetic retinopathy: {{Yes No*}} Diabetic neuropathy: {{Yes* No}} Diabetic nephropathy: {{Yes No*}} Hypertension: {{Yes* No}} Hyperlipidemia: {{Yes* No}} PARAG MORILLO, [employer] SET UP OPERATOR [address], [place], [address], [facility] 04/13/2021 11:33:40 OBGyn Episode No OBEpisode recorded.
--- OUTSIDE RECORDS SUMMARY | 2024-10-19 19:31 | XMS_ITS | Data Portability ---
Author Organization [place] - [facility] ADMIN Address [address] [place] [id number] Assessment No assessment recorded. Plan of Treatment Reminders Order Date Submit Date Provider Last Modified By Organization Details Last Modified Time Details Appointments None record ed. Lab None record ed. Referral None record ed. Procedures None record ed. Surgeries None record ed. Imaging None record ed. Medication Orders None record ed. Patient TargetsNo targets recorded. Patient InstructionsNo instructions recorded. Reason for Referral None Reported. Results Created Date Observation Date Name Description Value Unit Range Abnormal Flag Note LastModifiedBy Organization Detail LastModifiedTime 01/17/20 24 01/17/2024 US, echoc ardio gram, trans thora cic, compl ete, w/ color flow [facility] [address] [place] [address] Phone: Fax: Name: MICHELINE KIMBLE Exam Date: 024 : 963 Age 63 years Gender : F Access ion: [id number] Physic daniela: NARENDRA MURPHY Facili ty: [facility] Facili ty HSV: Inpati ent Exam: ECHOCA RDIOGR AM Conclu sions: 1. Normal left ventri cular dimens ion. 2. Normal left ventri cular systol ic functi on. 3. Estima nolvia left ventri cular ejecti on fracti on is 55-60% . 4. There is border line concen tric left ventri donovan hypert rophy. 5. Grade 1 diasto lic dysfun ction consis tent with impair ed relaxa tion and normal fillin g pressu res. 6. There is no signif icant valvul ar stenos is or regurg itatio n by Dopple r flow analys is. Findin gs: Left Ventri donovan:No rmal LV size and functi on. Normal left ventri cular dimens ion. Normal left ventri cular systol ic functi on. There is border line concen tric left ventri donovan hypert rophy. No region al wall motion abnorm alitie s. Normal global wall motion . No left ventri cular thromb us noted. Diasto lic Functi on:Nancy lysis of mitral valve inflow , pulmon joanne vein Dopple r and tissue Dopple r sugges ts grade I diasto lic dysfun ction withou t elevat ed left atrial pressu re. Right Ventri donovan:No rmal RV size. Left Atrium :Kassie l left atrial size by volume criter ia. Right Atrium :Kassie l right atrial size. Mitral Valve: Normal mitral valve struct ure and functi on. No mitral stenos is. No mitral valve prolap se is presen t. Tricus pid Valve: Normal tricus pid valve struct ure and functi on. There is physio logic tricus pid valve regurg itatio n. Aortic Valve: Normal aortic valve struct ure and functi on. No aortic valve stenos is. No aortic valve regurg itatio n. Pulmon ic Valve: Normal pulmon ic valve struct ure and functi on. Perica rdium: Normal perica rdium. No perica rdial effusi on. Electr onical ly signed SHARLENE URBINA MD 4 7:18 AM Study Data 2D Measur ements LVIDd: 4.78 (4.2-5 .9) cm LVIDs: 3.2 (2.1-4 .0) cm IVSDd: 0.86 (0.6-1 .0) cm LVPWd: 1.02 (0.6-1 .0) cm EF:61. 71 (>=55) % FS:33. 19 (25-43 ) % SV:65. 86 (70-10 0) ml EDV:10 6.72 (67-15 5) ml ESV:40 .86 (22-58 ) ml LA Volume :53.02 (18-58 ) ml LA Volume Index: 29.84 (16-28 ) ml/m2 LVOT Diam:2 .17 (1.8-2 .4) cm M-MODE Measur ements Mitral Valve Peak E:0.56 (0.6-1 .3) m/s Peak A:0.79 (<=.7) m/s E/A Ratio: 0.71 (.75-1 .5) PHT:10 1.07 ms MVA by PHT:2. 18 (4-6) cm2 Legall y authen ticate d by GABY Pickens MD 01-16 08:08: 46 DS:161 .91 cm/s2 DT:348 .53 (<=200 ) ms Tricus pid Valve Aortic Valve Peak:2 (<=2.5 ) m/s Peak Grad:1 6.08 (<=16) mmHg Mean:1 .06 m/s Mean Grad:5 .31 (<=5) mmHg AV VTI:30 .28 cm RODOLFO(ve l):1.6 7 (3-5) cm2 LVOT PV:0.9 1 (0.7-1 .1) m/s LVOT P.2 8 mmHg Pulmon ic Valve Report for MICHELINE Floyd [id number] on 4 Dictat ed By: SHARLENE KAHN Transc ribed By: KEELY STOLL Transc ribed On: 024 8:06 AM Electr onical ly signed by: SHARLENE KAHN 024 Thank you for referr MICHELINE Sanabria to [facility]. Legall y authserenity pickens by GABY Pickens MD 01-16 08:08: 46 CC'ed Logic: Orderi ng Provid er: GABY Pickens Attend ing Provid er: BELTRAN -MARGAUXEsther MACKEY Referr ing Provid er: DEVIN MACKEY Admitt ing Provid er: BELTRAN -MARGAUX NARENDRA [facility] ([facility]) [address] , [place], [address], 01/23/2024 11:56:46 Result Notes None recorded. Procedures Surgical History None recorded. Imaging Results Imaging Date Name Status LastModified by Organiz ation Details LastModified Time 01/17/2024 US, echocardiog thompson, transthorac ic, complete, w/ color flow completed [facility] ([facility]) [address] , [place], [address], 01/23/2024 11:56:46 Procedure Notes None recorded. Medical Equipment None Reported. Medications Name Sig Start Date Stop Date Status Note LastModified by Organization Details LastModified Time furosemide 40 mg tablet TAKE 1 TABLET BY MOUTH EVERY DAY active Not Available Not Available No t Available bupropion HCl SR 150 mg tablet,12 hr sustained-re lease TAKE 1 TABLET BY MOUTH TWICE A DAY active Not Available Not Available No t Available atorvastatin 80 mg tablet TAKE 1 TABLET BY MOUTH AT BEDTIME NIGHTLY FOR CHOLESTEROL active Not Available Not Available Not Available carvedilol 25 mg tablet TAKE 1 TABLET BY MOUTH TWICE A DAY FOR HYPERTENSIO N WITH A MEAL active Not Available Not Available No t Available carvedilol 6.25 mg tablet TAKE 1 TABLET BY MOUTH TWICE DAILY WITH FOOD active Not Available Not Available No t Available gabapentin 600 mg tablet TAKE 2 TABLETS BY MOUTH THREE TIMES DAILY FOR SUPPLEMENT active Not Available Not Available N ot Available carvedilol 12.5 mg tablet active Not Available Not Available Not Available clindamycin HCl 300 mg capsule TAKE 1 CAPSULE BY MOUTH EVERY 6 HOURS FOR 10 DAYS active Not Available Not Available No t Available fluconazole 150 mg tablet TAKE 1 TABLET BY MOUTH EVERY DAY FOR 5 DAYS active Not Available Not Available No t Available citalopram 10 mg tablet TAKE 1 TABLET BY MOUTH ONCE DAILY active Not Available Not Available No t Available senna 8.6 mg tablet TAKE TWO TABLETS BY MOUTH EVERY DAY active Not Available Not Available No t Available minocycline 100 mg capsule TAKE 1 CAPSULE BY MOUTH TWICE A DAY FOR 10 DAYS active Not Available Not Available No t Available isosorbide mononitrate ER 30 mg tablet,exten ded release 24 hr TAKE 1 TABLET BY MOUTH DAILY active Not Available Not Available Not Available Accu-Chek Softclix Lancets USE TO test blood sugar ONCE daily OR DIRECTED active Not Available Not Available No t Available clopidogrel 75 mg tablet TAKE 1 TABLET BY MOUTH EVERY DAY FOR CAD active Not Available Not Available Not Available ciprofloxaci n 250 mg tablet TAKE 1 TABLET BY MOUTH TWICE A DAY active Not Available Not Available No t Available allopurinol 100 mg tablet TAKE 1 TABLET BY MOUTH EVERY DAY active Not Available Not Available No t Available sulfamethoxa zole 800 mg-trimethop rim 160 mg tablet TAKE 1 TABLET BY MOUTH TWICE A DAY active Not Available Not Available No t Available hydrocodone 10 mg-acetamino phen 325 mg tablet TAKE 1 TABLET BY MOUTH EVERY 6 HOURS active Not Available Not Available No t Available aspirin 81 mg tablet,delay ed release TAKE 1 TABLET BY MOUTH ONCE DAILY active Not Available Not Available No t Available amitriptylin e 50 mg tablet TAKE 1 TABLET BY MOUTH EVERY DAY active Not Available Not Available No t Available spironolacto ne 25 mg tablet TAKE 1 TABLET BY MOUTH EVERY DAY active Not Available Not Available No t Available pramipexole 0.5 mg tablet TAKE 1 TABLET BY MOUTH EVERY DAY active Not Available Not Available No t Available citalopram 20 mg tablet TAKE 1 TABLET BY MOUTH EVERY DAY active Not Available Not Available No t Available magnesium oxide 400 mg (241.3 mg magnesium) tablet TAKE 1 TABLET BY MOUTH EVERY DAY active Not Available Not Available No t Available gabapentin 800 mg tablet TAKE 1 TABLET BY MOUTH EVERY 6 HOURS active Not Available Not Available No t Available linezolid 600 mg tablet TAKE ONE TABLET BY MOUTH TWICE DAILY FOR 7 DAYS -- FINISH ALL MEDICINE -- active Not Available Not Available Not Available cephalexin 500 mg capsule TAKE 1 CAPSULE BY MOUTH FOUR TIMES A DAY active Not Available Not Available Not Available pantoprazole 40 mg tablet,delay ed release TAKE 1 TABLET BY MOUTH EVERY DAY active Not Available Not Available No t Available lisinopril 10 mg tablet TAKE 1 TABLET BY MOUTH DAILY active Not Available Not Available Not Available levothyroxin e 200 mcg tablet TAKE 1 TABLET BY MOUTH ONCE DAILY FOR THYROID (THIS IS VERY IMPORTANT NOT TO SKIP) active Not Available Not Available No t Available hydrochlorot hiazide 25 mg tablet TAKE 1 TABLET BY MOUTH EVERY DAY active Not Available Not Available No t Available mupirocin 2 % topical ointment APPLY TOPICALLY TO THE AFFECTED AREA THREE TIMES DAILY FOR 7 DAYS active Not Available Not Available N ot Available ergocalcifer ol (vitamin D2) 1,250 mcg (50,000 unit) capsule TAKE 1 CAPSULE BY MOUTH ONCE A MONTH active Not Available Not Available No t Available nystatin 100,000 unit/gram topical powder 1 APPLICATION TOPICALLY TWICE A DAY FOR YEAST UNDER BREAST active Not Available Not Available No t Available levofloxacin 500 mg tablet TAKE 1 TABLET BY MOUTH EVERY DAY active Not Available Not Available No t Available levofloxacin 750 mg tablet TAKE 1 TABLET BY MOUTH EVERY DAY active Not Available Not Available No t Available lisinopril 40 mg tablet TAKE 1 TABLET BY MOUTH EVERY DAY FOR HYPERTENSIO N active Not Available Not Available No t Available doxycycline hyclate 100 mg tablet TAKE 1 TABLET BY MOUTH EVERY 12 HOURS active Not Available Not Available No t Available Humalog U-100 Insulin 100 unit/mL subcutaneous cartridge active Not Available Not Available No t Available nitrofuranto in monohydrate/ macrocrystal s 100 mg capsule TAKE 1 CAPSULE BY MOUTH EVERY 12 HOURS FOR 10 DAYS WITH A MEAL/FOOD active Not Available Not Available No t Available chlorhexidin e gluconate 0.12 % mouthwash SWISH WITH 1 OZ AND THEN SPIT 3 TIMES A DAY UNTIL GONE active Not Available Not Available N ot Available Lantus Solostar U-100 Insulin 100 unit/mL (3 mL) subcutaneous pen FOR DIABETES INJECT 100 UNITS UNDER THE SKIN TWICE A DAY active Not Available Not Available Not Available Humalog KwikPen (U-100) Insulin 100 unit/mL subcutaneous INJECT 15 UNITS UNDER THE SKIN THREE TIMES DAILY active Not Available Not Available No t Available GaviLyte-G 236 gram-22.74 gram-6.74 gram-5.86 gram oral solution ADMINISTER [address] ONCE NEEDED USE DIRECTED UNTIL HE HAVE A BOWEL MOVEMENT active Not Available Not Available No t Available Relistor 150 mg tablet TAKE 3 TABLETS BY MOUTH EVERY MORNING active Not Available Not Available No t Available Accu-Chek Guide test strips USE TO test blood sugar ONCE daily OR DIRECTED active Not Available Not Available No t Available Ozempic 0.25 mg or 0.5 mg (2 mg/1.5 mL) subcutaneous pen injector INJECT 0.25MG UNDER THE SKIN ONCE WEEKLY FOR 4 WEEKS THEN INCREASE TO 5MG active Not Available Not Available No t Available Accu-Chek Guide Me Glucose Meter USE TO test blood sugar ONCE a DAY OR DIRECTED active Not Available Not Available No t Available OneTouch Delica Plus Lancet 33 gauge USE DIRECTED TO TEST GLUCOSE WITH MEALS AND EVERY NIGHT AT BEDTIME AND RECORD IN JOURNAL AND TAKE TO PCP active Not Available Not Available Not Available FreeStyle Laureen 2 [place] active Not Available Not Available Not Available Ozempic 1 mg/dose (4 mg/3 mL) subcutaneous pen injector INJECT 1 MG SUBCUTANEOU SLY WEEKLY FOR DIABETES active Not Available Not Available No t Available insulin glargine-yfg n (U-100) 100 unit/mL (3 mL) subcutaneous pen INJECT 15 UNITS UNDER THE THE SKIN ONCE DAILY active Not Available Not Available No t Available [facility] COVID-19 Antigen Rapid Home Test kit USE DIRECTED active Not Available Not Available No t Available Vitals Date Recorded Body weight Body mass index (BMI) Body height Heart rate Oxygen saturation Oxygen saturation in Arterial blood by Pulse oximetry Body temperature Systolic blood pressure Diastolic blood pressure Provider Name and Address Organization Details Last Updated DateTime 3 79271.8 9 g 31.5 kg/m2 157.48 cm 88 /min 97 % 97 % 98.1 [degF] 128 mm[Hg] 78 mm[Hg] [facility] 3 10:54:49 Social History None recorded. Functional Status None recorded. Mental Status None recorded. Family History Nothing Reported. Medical History No medical history recorded. Gynecological HistoryNo gynecological history recorded. 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 The patient is status post amputation of the right hallux effectivel y removing all the osteomyeli tis. She has completed an additional week of linezolid to treat the remaining soft tissue infection. Based on her exam today, there is no obvious evidence of any persisting soft tissue infection. I think the linezolid can be stopped now. No laboratory work needed today. Continue to follow with Podiatry. Follow up with me again in 3 weeks. Methicilli n resistant Staphylococcus aureus infection 484368882 A49.02 As above. Health Concerns Section Related Observation LastModified by Organization Detai ls LastModified Time None Recorded Concern Status LastModified by Organization Details LastModified Time None Recorded Advance Directives Directive None Recorded Payers Encounter Date Sequence Insurance Name Policy Number Policy Mcdonald Covered Member ID Mcdonald Member ID Guarantor Name 12/15/2022 1 [place] (MEDICARE REPLACEMENT HMO) [id number] Micheline Hernandez [id number] Micheline Hernandez 12/15/2022 2 [place]-[facility] CHOICES - FFS/TRADITIONA L Micheline Hernandez [id number] Micheline Hernandez Notes Date Note Type Note Provider Name and Address Organization Details Recorded Time 12/15/2022 text/html This is a 62-year-old white female following up with nc for a chronic osteomyelitis of the right hallux due to MRSA. The patient was hospitalized and underwent a right hallux amputation. She was treated briefly with intravenous antibiotics that were then changed to oral antibiotic therapy upon discharge to treat any remaining soft tissue infection. There was no osteomyelitis thought to be left after the surgery. She has completed an additional week of linezolid since hospital discharge. she has no complaints today. She is had no more drainage from the foot. No undue pain. No redness. No swelling. No fever. She is tolerated the linezolid without any major side effect aside from some occasional nausea. No other issues today. Willian Olea MD [address], [place], [address], [facility] - [place] - [place] & [place] 12/15/2022 11:04:34 OBGyn Episode No OBEpisode recorded.
--- OUTSIDE RECORDS SUMMARY | 2024-10-19 19:31 | XMS_ITS | Continuity of Care Document ---
Author Organization Formerly [facility]. If a dditional information is needed, contact Health Information Management at [phone] Address [address] [place] [address] Phone Care Team Providers Care Spudder Name Role Phone Unavailable Unavailable Unavailable Encounters pre-admission 06-Sep-2023 11:21 Neo Boles (Attending) Collette
--- NOTE | 2024-10-19 20:10 | XR_ITS ---
PROCEDURE INFORMATION: Exam: XR Right Foot Exam date and time: 10/19/2024 8:24 PM Age: 64 years old Clinical indication: Pain; Foot; Right; Additional info: Pain/swelling TECHNIQUE: Imaging protocol: Radiologic exam of the right foot. Views: 1 or 2 views. COMPARISON: CR XR FOOT WT BEARING RT 3V 10/21/2022 8:35 AM FINDINGS: Bones/joints: Postsurgical changes compatible with amputation of the right great toe combined with arthrodesis screws involving the 1st, 2nd, and 4th rays with fixation to the calcaneus and talus. Soft tissues: Moderate soft tissue swelling throughout the forefoot suggests infectious or inflammatory process. Moderate soft tissue swelling of the 2nd toe with osseous erosions suggest osteomyelitis. IMPRESSION: 1. Postsurgical changes compatible with amputation of the right great toe combined with arthrodesis screws involving the 1st, 2nd, and 4th rays with fixation to the calcaneus and talus. 2. Moderate soft tissue swelling throughout the forefoot suggests infectious or inflammatory process. 3. Moderate soft tissue swelling of the 2nd toe with osseous erosions suggest osteomyelitis.
--- NOTE | 2024-10-19 20:10 | XR_ITS ---
PROCEDURE INFORMATION: Exam: XR Right Knee Exam date and time: 10/19/2024 8:24 PM Age: 64 years old Clinical indication: Pain; Knee; Right; Additional info: Pain/swelling TECHNIQUE: Imaging protocol: Radiologic exam of the right knee. Views: 3 views. COMPARISON: CR XR KNEE RT 3V 08/27/2024 12:23 PM FINDINGS: Bones/joints: Moderate osteophytosis and degenerative changes involve the 3 compartments of the right knee with moderate soft tissue swelling and severe calcific atherosclerotic disease of the visualized arterial vasculature. Soft tissues: See Bones/joints finding. IMPRESSION: Moderate osteophytosis and degenerative changes involve the 3 compartments of the right knee with moderate soft tissue swelling and severe calcific atherosclerotic disease of the visualized arterial vasculature.
--- NOTE | 2024-10-19 20:11 | XR_ITS ---
PROCEDURE INFORMATION: Exam: XR Chest Exam date and time: 10/19/2024 8:24 PM Age: 64 years old Clinical indication: Dyspnea TECHNIQUE: Imaging protocol: Radiologic exam of the chest. Views: 1 view. COMPARISON: CT CERVICAL SPINE WO CON 08/01/2024 11:27 PM FINDINGS: Lungs: There is prominence of the pulmonary vasculature with interstitial opacities. Pleural spaces: No pneumothorax. Heart/Mediastinum: Cardiac silhouette is enlarged. Bones/joints: Unremarkable. IMPRESSION: Constitution of findings compatible with mild CHF in the appropriate clinical setting.
[2024-10-19 20:16] LABS: Basophils % 0.4 % (0.1-2.0); Eosinophils # 0.1 Kmm3 (0.0-0.4); Hematocrit 25.7 % (37.0-47.0); Hemoglobin 7.6 g/dL (12.2-16.2); Lymphocytes # 2.3 K/mm3 (0.7-4.5); Lymphocytes % 32.7 % (10-50); Mean Corpuscular HGB Conc 29.6 g/dL (31.8-35.4); Mean Corpuscular Hemoglobin 28.1 pg (27.0-31.2); Mean Corpuscular Volume 95.2 fl (81-99); Mean Platelet Volume 9.2 fl (7.4-10.4); Monocytes # 0.6 K/mm3 (0.1-1.0); Monocytes % 8.9 % (1.7-9.3); Neutrophils # 3.9 K/mm3 (1.8-7.8); Neutrophils % 55.7 % (37.0-80.0); Nucleated Red Blood Cells # 0.03 10^3/uL; Nucleated Red Blood Cells % 0.4 %; Platelet Count 303 K/mm3 (142-424); Red Cell Distribution Width 22.4 % (11.5-17.5); Red Cell Distribution Width-SD 75.8 fL
[2024-10-19 20:22] LABS: Alanine Aminotransferase 16 U/L (12-78); Albumin Level 3.7 g/dl (3.5-5.0); Albumin/Globulin Ratio 0.8 (1.1-1.8); Alkaline Phosphatase 153 U/L (38-126); Anion Gap 12.6 mEq/L (5-15); Aspartate Amino Transferase 26 U/L (14-36); Bilirubin,Total 0.5 mg/dl (0.2-1.3); Blood Urea Nitrogen 18 mg/dl (7-17); Calcium 8.8 mg/dl (8.4-10.2); Carbon Dioxide 25 mmol/L (22.0-30.0); Chloride 106 mmol/L (98-107); Creatinine Clearance Estimated 67 mL/min (50-200); Estimated Glomerular Filt Rate 63 ml/min (>60); GFR (African American) 77 ML/MIN (>60); Globulin 4.4 g/dL (1.3-3.2); Glucose 202 mg/dl (74-100); Potassium 4.6 mmoL/L (3.5-5.1); Sodium 139 mmol/L (136-145); Total Protein,Serum 8.1 g/dl (6.3-8.2)
[2024-10-19 20:27] LABS: C-Reactive Protein 17.4 mg/L (0-4)
[2024-10-19 20:35] LABS: NT Pro Brain Natriuretic Pep. > 30000 pg/mL (0-125); Troponin I 0.02 ng/ml (0.00-0.034)
[2024-10-19 20:42] LABS: Erythrocyte Sedimentation Rate 89 mm/hr (0-30)
--- NOTE | 2024-10-19 20:44 | ECG_ITS ---
APPROVED REPORT Exam: Resting ECG HR:101 bpm ECG Measurements Heart Rate 101 AXES DE 186 P 4 QRSd 134 QRS -22 QT 383 T 102 QTc 441 Conclusion SINUS TACHYCARDIA WITH FREQUENT VENTRICULAR PREMATURE COMPLEXES BORDERLINE LEFT AXIS DEVIATION [QRS AXIS < -20] RIGHT BUNDLE BRANCH BLOCK [120+ ms QRS DURATION, UPRIGHT V1, 40+ ms S IN I/aVL/V4/V5/V6] ABNORMAL ECG UNCONFIRMED REPORT Electronically signed by : Neo Whiteside, 10/19/2024 22:58:20
[2024-10-19 20:49] LABS: HIV Combo NEGATIVE (Negative)
[2024-10-19 20:54] LABS: Hepatitis C Ab Qual. W/ RFX NEGATIVE (Negative)
[2024-10-19 21:08] LABS: Lactic Acid 2.2 mmol/L (0.7-2.1)
--- NOTE | 2024-10-19 21:10 | [facility].EDGENADL ---
Discharge Plan Disposition Patient Disposition: Admitted Chief Complaint: Shortness of Breath/Dyspnea Prescriptions Prescriptions: No Action polyethylene glycol 3350 [Miralax] 17 gram/dose powder 17 g PO DAILY Relistor 150 mg tablet 450 mg PO DAILY Rx Instructions: Take 1 tablet by mouth three times a day ondansetron 4 mg tablet,disintegrating 4 mg PO Q8H PRN (Reason: nausea and vomiting) Qty: 30 0RF magnesium oxide 400 mg (241.3 mg magnesium) tablet 400 mg PO DAILY Qty: 90 3RF Rx Instructions: TAKE 1 TABLET BY MOUTH EVERY DAY linagliptin 5 mg tablet 5 mg PO DAILY Qty: 90 1RF insulin lispro 100 unit/mL insulin pen 20 unit SQ BID sennosides [Senna Laxative] 8.6 mg tablet 17.2 mg PO DAILY 30 Days Qty: 60 3RF aspirin [Darshana Low Dose Aspirin] 81 mg tablet,delayed release (DR/EC) 81 mg PO DAILY Qty: 90 1RF ferrous sulfate [Feosol] 325 mg (65 mg iron) tablet 325 mg PO TID Qty: 90 3RF (DME) blood-glucose meter Kit See Rx Instructions .ROUTE .MEDSUPPLY Qty: 1 0RF Rx Instructions: As directed or once daily along with the strips and lancets that pts insurance will pay for levothyroxine 200 mcg tablet See Rx Instructions .ROUTE .COMPLEX Qty: 90 0RF Dose Instruction: TAKE 1 TABLET BY MOUTH ONCE DAILY FOR THYROID (THIS IS VERY IMPORTANT NOT TO SKIP) Rx Instructions: TAKE 1 TABLET BY MOUTH ONCE DAILY FOR THYROID (THIS IS VERY IMPORTANT NOT TO SKIP) citalopram 20 mg tablet 20 mg PO DAILY Qty: 90 3RF Rx Instructions: TAKE 1 TABLET BY MOUTH EVERY DAY Ozempic 1 mg/dose (4 mg/3 mL) pen injector See Rx Instructions .ROUTE .COMPLEX Qty: 3 2RF Dose Instruction: INJECT 1 MG SUBCUTANEOUSLY WEEKLY FOR DIABETES Rx Instructions: INJECT 1 MG SUBCUTANEOUSLY WEEKLY FOR DIABETES lisinopril 40 mg tablet 40 mg PO HS Qty: 30 3RF Rx Instructions: TAKE 1 TABLET BY MOUTH EVERY DAY FOR HYPERTENSION pantoprazole 40 mg tablet,delayed release (DR/EC) 40 mg PO HS Qty: 90 3RF carvedilol 25 mg tablet 12.5 mg PO BID Qty: 60 3RF Rx Instructions: TAKE 1 TABLET BY MOUTH TWICE A DAY FOR HYPERTENSION WITH A MEAL allopurinol 100 mg tablet 100 mg PO DAILY Qty: 30 3RF Rx Instructions: TAKE 1 TABLET BY MOUTH EVERY DAY clopidogrel 75 mg tablet 75 mg PO DAILY Qty: 30 3RF Rx Instructions: TAKE 1 TABLET BY MOUTH EVERY DAY FOR CAD insulin glargine [Lantus Solostar U-100 Insulin] 100 unit/mL (3 mL) insulin pen 100 unit SQ BID Qty: 15 0RF furosemide 40 mg tablet 40 mg PO DAILY Qty: 90 3RF Rx Instructions: TAKE 1 TABLET BY MOUTH EVERY DAY bupropion HCl 150 mg tablet sustained-release 12 hr 150 mg PO BID atorvastatin 80 mg tablet 40 mg PO HS Rx Instructions: TAKE 1 TABLET BY MOUTH AT BEDTIME NIGHTLY FOR CHOLESTEROL amitriptyline 50 mg tablet 50 mg PO HS pramipexole 0.5 mg tablet 0.5 mg PO DAILY Rx Instructions: TAKE 1 TABLET BY MOUTH EVERY DAY hydrocodone-acetaminophen 10-325 mg tablet 1 tab PO Q6H Patient Comments: TAKE 1 TABLET BY MOUTH EVERY 6 HOURS gabapentin 800 mg tablet 800 mg PO Q6H Patient Comments: TAKE 1 TABLET BY MOUTH EVERY 6 HOURS spironolactone 25 mg tablet 25 mg PO DAILY Patient Comments: TAKE 1 TABLET BY MOUTH EVERY DAY Referrals Follow up/Referrals: Ramos Morales APRN [Primary Care Provider] - See instructions Clinical Impressions Clinical Impression: Cellulitis of foot, Osteoarthritis of toe, Acute dyspnea, Acute HFrEF (heart failure with reduced ejection fraction), Pulmonary edema Print Language Print Language: [place] Discharge ED Provider: Yenny Whiteside General Adult HPI General Chief complaint: Shortness of Breath/Dyspnea Stated complaint: ? infected right knee, left ankle Time Seen by Provider: 10/19/24 19:32 Mode of Arrival: Wheelchair Source of Information: Patient Description of Symptoms (Recalled from ER Triage Doc. by RN): pt reports she has had many surgeries on both of her feet as well as a surgery on her right knee. pt reports she was discharged last from rehab and was seen by homehealth today and was having increased pain as well as new onset SOB. homehealth recommended she come to the ED for evaluation History of Present Illness HPI narrative: The patient is a 64-year-old female presenting today with right knee pain swelling right foot pain and swelling and shortness of breath. Patient has an extensive medical history and recent hospitalization she was admitted on August 27, 2024 with a diagnosis of a septic knee. She has a history of diabetes coronary disease peripheral vascular disease and during this recent hospitalization at [facility] she was also treated for MRSA bacteremia. On August 28 she had an I&D with orthopedic surgery. She was followed by infectious disease there was no growth in her wound cultures she was on linezolid for an extended period of time until 423 followed up with infectious disease outpatient. She had a PICC removed on September 21, 2024. Drains were removed by orthopedic surgery on 2 and sutures removed on 410. She also has a diagnosis of heart failure with reduced ejection fraction she had hypoxic respiratory failure secondary to pulmonary edema during that hospitalization as well. Also had a history of acute kidney injury during that hospitalization. 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 She was discharged to an outpatient rehab facility and was there for almost a month and discharged from there just several days ago. She states that she was able to ambulate without significant difficulty up until about 2 days ago. She has had increasing pain and swelling in her right knee pain and swelling in her right foot and also shortness of breath. She also has increased bilateral lower extremity edema and states this is very similar to her volume overloaded state with recent hospitalization. Related Data Home Medications ?Medication ?Instructions ?Recorded ?Confirmed amitriptyline 50 mg tablet 50 mg PO HS 04/14/24 10/19/24 atorvastatin 80 mg tablet 40 mg PO HS 04/14/24 10/19/24 bupropion HCl 150 mg tablet,12 hr 150 mg PO BID 04/14/24 10/19/24 sustained-release pramipexole 0.5 mg tablet 0.5 mg PO DAILY 04/14/24 10/19/24 gabapentin 800 mg tablet 800 mg PO Q6H 04/15/24 10/19/24 hydrocodone 10 mg-acetaminophen 1 tab PO Q6H 04/15/24 10/19/24 325 mg tablet spironolactone 25 mg tablet 25 mg PO DAILY 04/15/24 10/19/24 insulin lispro 100 unit/mL 20 unit SQ BID Diabetes 04/24/24 10/19/24 subcutaneous pen methylnaltrexone 150 mg tablet 450 mg PO DAILY 05/21/24 10/19/24 (Relistor) polyethylene glycol 3350 17 17 g PO DAILY 05/21/24 10/19/24 gram/dose oral powder (Miralax) Previous Rx's ?Medication ?Instructions ?Recorded linagliptin 5 mg tablet 5 mg PO DAILY Diabetes #90 tabs 01/21/23 aspirin 81 mg tablet,delayed 81 mg PO DAILY CAD #90 tabs 08/29/23 release (Darshana Low Dose Aspirin) ferrous sulfate 325 mg (65 mg 325 mg PO TID Supplement #90 tabs 08/29/23 iron) tablet (Feosol) blood-glucose meter #1 ea 04/17/24 sennosides 8.6 mg tablet (Senna 17.2 mg (2 x 8.6 mg) PO DAILY 30 04/24/24 Laxative) days #60 tabs levothyroxine 200 mcg tablet See Rx Instructions .Route 05/31/24 .COMPLEX #90 tabs magnesium oxide 400 mg (241.3 mg 400 mg PO DAILY #90 tabs 08/22/24 magnesium) tablet ondansetron 4 mg disintegrating 4 mg PO Q8H PRN nausea and 08/22/24 tablet vomiting #30 tabs citalopram 20 mg tablet 20 mg PO DAILY #90 tabs 08/30/24 semaglutide 1 mg/dose (4 mg/3 mL) See Rx Instructions .Route 10/02/24 subcutaneous pen injector (Ozempic) .COMPLEX #3 mL allopurinol 100 mg tablet 100 mg PO DAILY #30 tabs 10/09/24 carvedilol 25 mg tablet 12.5 mg (1/2 x 25 mg) PO BID #60 10/09/24 tabs clopidogrel 75 mg tablet 75 mg PO DAILY #30 tabs 10/09/24 lisinopril 40 mg tablet 40 mg PO HS #30 tabs 10/09/24 pantoprazole 40 mg tablet,delayed 40 mg PO HS #90 tabs 10/09/24 release insulin glargine 100 unit/mL (3 100 unit SQ BID #15 mL 10/15/24 mL) subcutaneous pen (Lantus Solostar U-100 Insulin) furosemide 40 mg tablet 40 mg PO DAILY #90 tabs 10/16/24 Allergies Allergy/AdvReac Type Severity Reaction Status Date / Time [facility] Allergy Severe kidney Verified 08/27/24 12:32 issues PFSH PFS Disclaimer: The information contained in this section may have been updated after the patient was seen, as this information can be updated by other users. Medical History Closed left ankle fracture Elevated left ventricular end-diastolic pressure (LVEDP) Edema of both lower extremities Syncope Abnormal result of cardiovascular function study Typical angina Arthritis GERD (gastroesophageal reflux disease) Depression COPD (chronic obstructive pulmonary disease) Arrhythmia Hyperlipidemia Surgical History History of cancer surgery H/O total hysterectomy Hx of colonoscopy Family History Other Cancer Coronary artery disease Diabetes Heart attack Hypertension Stroke Social History Smoking Status: Former smoker tobacco type: cigarettes alcohol intake: never substance use type: denies use current occupational status: unemployed and disabled Travel in the last 8 weeks?: None household members: spouse housing: house Have you lived/traveled outside [place] in past 30 days?: No Contact w/someone who lives/traveled outside US past 30 days?: No Exposure to someone with infectious disease in past 14 days?: No Do you have a fever (greater than 100.4 F or 38 C)?: No Have you tested positive for COVID-19?: No Exposed to someone with COVID-19 in past 14 days?: No Do you have a sore throat?: No Do you have a cough?: No Do you have any weakness?: No Do you have any diarrhea?: No Are you experiencing any unusual bleeding?: No Do you have any muscle aches/pain?: No Do you have any abdominal pain?: No Are you experiencing loss of taste or smell?: No Other Medical History Have you received the Flu Vaccine for this season: No (not yet) Have you received the Pneumonia Vaccine: Yes ROS Obtained: Yes All systems reviewed & no additional complaints except as documented Physical Exam General General appearance: alert and in no apparent distress Respiratory Respiratory exam: Present normal lung sounds bilaterally; Absent respiratory distress Cardiovascular Cardiovascular exam: Present regular rate, normal rhythm and other (Diffuse bilateral lower extremity pitting edema) Extremities Exam Extremities exam: Present other (Right knee midline incisional scar is well-healing there is a small amount of erythema around the central eschar no significant warmth knee is in an extended position with no obvious effusion) Expanded Lower Extremity Exam Right: Top foot image: 1. First metatarsal is surgically absent second is erythematous with a dorsal eschar and open wound with significant erythema and swelling across the midfoot and second digit. Neurological Exam Neurological exam: Present alert and oriented X3 Medical Decision Making Medical Records Screening: Per USPSTF and CDC recommendations, given the prevalence of disease in our region, it is our hospital?s policy to screen for HIV and viral Hepatitis for all patients aged 18 and over and those with ongoing risk factors. Salty Inquiry Pt receiving controlled substance: No Vital Signs: 10/19/24 19:40 10/19/24 20:41 Temperature 98.2 F Temperature Source Oral Pulse Rate 100 H Pulse Rate [Right] 108 H Respiratory Rate 20 20 Blood Pressure 152/86 H Blood Pressure [Right Arm] 143/79 H Blood Pressure Mean 99 Blood Pressure Mean [Right Arm] 100 02 Sat by Pulse Oximetry 97 98 Oxygen Delivery Method Room Air Lab Data Lab results reviewed: Yes I reviewed the patient's lab results. Lab Results 10/19/24 19:40: WBC 7.0, RBC 2.70 L, Hgb 7.6 L, Hct 25.7 L, MCV 95.2, MCH 28.1, MCHC 29.6 L, RDW 22.4 H, Plt Count 303, MPV 9.2, Neut % (Auto) 55.7, Lymph % (Auto) 32.7, Reynolds % (Auto) 8.9, Eos % (Auto) 2.0, Baso % (Auto) 0.4, Neut # (Auto) 3.9, Lymph # (Auto) 2.3, Reynolds # (Auto) 0.6, Eos # (Auto) 0.1, Baso # (Auto) 0.0, ESR 89 H, Sodium 139, Potassium 4.6, Chloride 106, Carbon Dioxide 25, Anion Gap 12.6, BUN 18 H, Creatinine 0.90, Estimated Creat Clear 67, Estimated GFR 63, Est GFR ( Amer) 77, Glucose 202 H, Calcium 8.8, Total Bilirubin 0.5, AST 26, ALT 16, Alkaline Phosphatase 153 H, Troponin I 0.02, C-Reactive Protein 17.4 H, NT-Pro-B Natriuret Pep > 57938 H, Total Protein 8.1, Albumin 3.7, Globulin 4.4 H, Albumin/Globulin Ratio 0.8 L, HCV Ab SATISH w/Rflx PCR Qn Negative, HIV Ag/Ab Combo Qual Negative 10/19/24 20:35: Lactate 2.2 H 10/19/24 19:40 10/19/24 19:40 Orders (Tests/Meds): ED MEDICATIONS Generic Name Dose Route Start Last Admin Trade Name Freq PRN Reason Stop Dose Admin Hydrocodone Bitart/Acetaminophen 2 tab 10/19/24 21:31 Hydrocodone/Apap 5/325 Mg Tablet PO 10/19/24 21:32 ONCE ONE Miscellaneous 1 each 10/19/24 21:45 Vancomycin Consult Request NOTAPPLIC 11/18/24 21:44 CONSULT PHARMACY MITUL ORDERS Category Date Time Status CXR --portable [XR chest portable] Stat Exams 10/19/24 20:11 Completed Foot XR right 2 views [XR foot RT 2V] Stat Exams 10/19/24 20:10 Completed Knee XR right 3 views [XR knee RT 3V] Stat Exams 10/19/24 20:10 Completed POCUS Point of Care (ER Only) Stat Exams 10/19/24 19:58 Taken BNP [NT Pro Brain Natriuretic Pep.] Stat Lab 10/19/24 19:40 Completed CBC w/Auto Diff [Complete Blood Count Auto Diff] Stat Lab 10/19/24 19:40 Completed CMP [Comprehensive Metabolic Panel] Stat Lab 10/19/24 19:40 Completed CRP [C-Reactive Protein] Stat Lab 10/19/24 19:40 Completed ESR [Erythrocyte Sedimentation Rate] Stat Lab 10/19/24 19:40 Completed HIV Combo Stat Lab 10/19/24 19:40 Completed Hepatitis C Ab Qual. W/ RFX Stat Lab 10/19/24 19:40 Completed Lactic Acid Stat Lab 10/19/24 20:35 Completed Trop I [Troponin I] Stat Lab 10/19/24 19:40 Completed Troponin I Q3H Lab 10/19/24 23:15 Ordered Troponin I Q3H Lab 10/20/24 02:15 Ordered Blood Culture Stat Micro 10/19/24 20:35 Received Medical Decision Narrative: 64-year-old with extensive and complicated medical history presents today with worsening joint pain in the right knee and right foot. In the right foot there is some swelling and erythema over the midfoot forefoot and second digit. On the x-ray which was performed that I personally interpret there is evidence of bony destruction concerning for possible osteomyelitis. There is also an open wound in this area patient likely will need to have this part of her toe amputated for source control. Additionally patient has increasing discomfort in her right knee. Her joint does not appear to be concerning for septic joint but given her extensive history this remains a possibility. She has an fixed extended position which is unlikely to be a septic joint but she does have some axial load pain and is having difficulty with walking and claims that it was warmer and more red than it has been over the last several weeks. Inflammatory markers are mildly elevated. Regarding her dyspnea seems to be a volume overload states she has bilateral lower extremity edema she has diffuse pulmonary edema likely needs to be diuresed which is the cause of her dyspnea and will not search for alternative causes at this point. Patient is afebrile no other signs or symptoms of sepsis. I suspect she is not bacteremic at this point. Her knee exam is very reassuring to me even though she does have some subjective pain. Her foot is certainly the main source of infection or inflammation I will start her on some IV antibiotics and discussed the case with hospital medicine here. I do not believe that she needs an emergent arthrocentesis of her knee nor infectious disease nor orthopedic surgery at the moment. Hospital medicine agreed to admit the patient here for further evaluation and management. Procedures Miscellaneous Procedure Procedure Performed: Limited cardiac ultrasound Indication: Dyspnea Identified structures: The heart was visualized in the parasternal long axis, parastenal short axis, apical four chamber and subxyphiod views. The IVC was visualized in the short axis and long axis at its entry into the right atrium. Findings: LVEF is moderately depressed no significant right heart strain IVC is greater than 2 cm with no respirophasic variation Impression: Evidence of heart failure with reduced ejection fraction and elevated CVP with IVC plethora Images were saved to permanent archive The study was technically adequate CPT: 84502-90 This study was performed by me, and I personally interpreted all images/videos. Based on my clinical judgement, these images were adequate and did not necessitate further imaging. Limited lung ultrasound A focused ultrasound exam of the pleural spaces was performed to evaluate for pneumothorax, pulmonary edema, pleural effusion and/or consolidation. The ultrasound was performed with the following indications, as noted in the H&P: Dyspnea Identified structures: Right and left thoracic cavities were examined. Findings: Right and left lung sliding present there are B-lines throughout all lung espino anterior and laterally no obvious pleural effusions noted bilaterally Impression: Diffuse B-lines throughout all lung espino consistent with pulmonary edema Images were saved to permanent archive The study was technically adequate CPT 15466-18 This study was performed by me, and I personally interpreted all images/videos. Based on my clinical judgement, these images were adequate and did not necessitate further imaging. Ultrasound-guided IV Indication difficult IV access Patient was placed in the supine position was prepped and draped in sterile fashion. 20-gauge 48 mm Angiocath was used with axial and long axis planes on the ultrasound under direct visual guidance. The tip of the needle was observed being inserted directly into the vein itself and catheter was advanced under direct guidance. No significant complications. Critical Care Critical Care Time Critical Care Time: Yes Attestation: On 10/19/24, the high probability of a clinically significant, sudden or life threatening deterioration of the following system(s) required my full and direct attention, intervention and personal management. The time I documented below is in addition to time spent performing reported procedures but includes the following listed in this critical care notation. Total Time Total Critical Care Time: 35
[2024-10-19] MEDS: HYDROCODONE/APAP 5/325 MG TABLET 2 TAB PO (21:37)
--- NOTE | 2024-10-19 22:17 | P.HP_ITS ---
<Statement entered by Neo Pierre MD - 10/20/24 08:07> Rounded on patient after nurse practitioner. Personally examined and interviewed patient. Agree with exam findings and care plan as documented. History of Present Illness *Admission Date: 10/19/24 *Reason for visit:: Shortness of breath and foot pain *History of present illness: This is a 64-year-old female with a past medical history of PAD, DM 2, HFrEF, Chronic pain, hyperlipidemia, hypertension, CAD who presents to the emergency department today with complaints of right lower extremity pain and increased shortness of breath. In short, this is a 64-year-old female with recent hospitalization to [facility] for septic knee. She was also found at that time to have MRSA bacteremia. She underwent I&D with orthopedic surgery and followed by infectious disease. She was on linezolid for extended period of time (10/10). She was also diagnosed with heart failure with reduced EF at that time and hypoxic respiratory failure secondary to pulmonary edema. 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 She has been residing at a rehab facility for the last month and discharged from there several days ago. Today she reports increased pain and swelling to her right knee and right foot with increased shortness of breath and bilateral lower extremity edema. Emergency Department workup notable for hemoglobin hematocrit of 7.6 and 25n (chronic anemia), ESR of 89, lactic of 2.2, proBNP greater than 30,000. Chest imaging notable for mild CHF. On exam patient does have mild conversational dyspnea and lower extremity edema. Right lower extremity with mild mottling noted to the sole of foot. Patient reports ulceration of her second toe is mildly worse than normal. Foot imaging notable for moderate soft tissue swelling throughout the forefoot as well as second toe erosions suggestive of osteomyelitis Given the above-mentioned findings she will be admitted to hospital service [facility] Disclaimer: The information contained in this section may have been updated after the patient was seen, as this information can be updated by other users. Medical History Closed left ankle fracture Elevated left ventricular end-diastolic pressure (LVEDP) Edema of both lower extremities Syncope Abnormal result of cardiovascular function study Typical angina Arthritis GERD (gastroesophageal reflux disease) Depression COPD (chronic obstructive pulmonary disease) Arrhythmia Hyperlipidemia Surgical History History of cancer surgery H/O total hysterectomy Hx of colonoscopy Family History Other Cancer Coronary artery disease Diabetes Heart attack Hypertension Stroke Social History (Updated 10/19/24 @ 22:27 by Gabriela Gloria RN) Smoking Status: Former smoker tobacco type: cigarettes alcohol intake: never substance use type: denies use current occupational status: unemployed and disabled Travel in the last 8 weeks?: None household members: spouse housing: house Have you lived/traveled outside US in past 30 days?: No Contact w/someone who lives/traveled outside US past 30 days?: No Exposure to someone with infectious disease in past 14 days?: No Do you have a fever (greater than 100.4 F or 38 C)?: No Have you tested positive for COVID-19?: No Exposed to someone with COVID-19 in past 14 days?: No Do you have a sore throat?: No Do you have a cough?: No Do you have any weakness?: No Do you have any diarrhea?: No Are you experiencing any unusual bleeding?: No Do you have any muscle aches/pain?: No Do you have any abdominal pain?: No Are you experiencing loss of taste or smell?: No Other Medical History Have you received the Flu Vaccine for this season: No (not yet) Have you received the Pneumonia Vaccine: Yes Review of Systems Review of Systems Review of systems:: pertinent systems reviewed and negative unless documented below Review of systems (narrative): Negative negative for HPI Meds Home Medications and Allergies Home Medications ?Medication ?Instructions ?Recorded ?Confirmed ?Type linagliptin 5 mg tablet 5 mg PO DAILY Diabetes #90 tabs 01/21/23 10/19/24 Rx aspirin 81 mg tablet,delayed 81 mg PO DAILY CAD #90 tabs 08/29/23 10/19/24 Rx release (Darshana Low Dose Aspirin) ferrous sulfate 325 mg (65 mg 325 mg PO TID Supplement #90 tabs 08/29/23 10/19/24 Rx iron) tablet (Feosol) amitriptyline 50 mg tablet 50 mg PO HS 04/14/24 10/19/24 History atorvastatin 80 mg tablet 40 mg PO HS 04/14/24 10/19/24 History bupropion HCl 150 mg tablet,12 hr 150 mg PO BID 04/14/24 10/19/24 History sustained-release pramipexole 0.5 mg tablet 0.5 mg PO DAILY 04/14/24 10/19/24 History gabapentin 800 mg tablet 800 mg PO Q6H 04/15/24 10/19/24 History hydrocodone 10 mg-acetaminophen 1 tab PO Q6H 04/15/24 10/19/24 History 325 mg tablet spironolactone 25 mg tablet 25 mg PO DAILY 04/15/24 10/19/24 History blood-glucose meter #1 ea 04/17/24 10/19/24 Rx insulin lispro 100 unit/mL 20 unit SQ BID Diabetes 04/24/24 10/19/24 History subcutaneous pen sennosides 8.6 mg tablet (Senna 17.2 mg (2 x 8.6 mg) PO DAILY 30 04/24/24 10/19/24 Rx Laxative) days #60 tabs methylnaltrexone 150 mg tablet 450 mg PO DAILY 05/21/24 10/19/24 History (Relistor) polyethylene glycol 3350 17 17 g PO DAILY 05/21/24 10/19/24 History gram/dose oral powder (Miralax) levothyroxine 200 mcg tablet See Rx Instructions .Route 05/31/24 10/19/24 Rx .COMPLEX #90 tabs magnesium oxide 400 mg (241.3 mg 400 mg PO DAILY #90 tabs 08/22/24 10/19/24 Rx magnesium) tablet ondansetron 4 mg disintegrating 4 mg PO Q8H PRN nausea and 08/22/24 10/19/24 Rx tablet vomiting #30 tabs citalopram 20 mg tablet 20 mg PO DAILY #90 tabs 08/30/24 10/19/24 Rx semaglutide 1 mg/dose (4 mg/3 mL) See Rx Instructions .Route 10/02/24 10/19/24 Rx subcutaneous pen injector (Ozempic) .COMPLEX #3 mL allopurinol 100 mg tablet 100 mg PO DAILY #30 tabs 10/09/24 10/19/24 Rx carvedilol 25 mg tablet 12.5 mg (1/2 x 25 mg) PO BID #60 10/09/24 10/19/24 Rx tabs clopidogrel 75 mg tablet 75 mg PO DAILY #30 tabs 10/09/24 10/19/24 Rx lisinopril 40 mg tablet 40 mg PO HS #30 tabs 10/09/24 10/19/24 Rx pantoprazole 40 mg tablet,delayed 40 mg PO HS #90 tabs 10/09/24 10/19/24 Rx release insulin glargine 100 unit/mL (3 100 unit SQ BID #15 mL 10/15/24 10/19/24 Rx mL) subcutaneous pen (Lantus Solostar U-100 Insulin) furosemide 40 mg tablet 40 mg PO DAILY #90 tabs 10/16/24 10/19/24 Rx New Prescriptions to Start Prescriptions: Allergies Allergy/AdvReac Type Severity Reaction Status Date / Time canagliflozin (From [facility]) Allergy Severe kidney Verified 08/27/24 12:32 issues Exam Data for Last 24 hours Vital signs and Labs for Last 24 Hours: Temp Pulse Resp BP Pulse Ox O2 Del Method 98 F 100 H 20 148/91 H 96 Room Air 10/19/24 21:52 10/19/24 21:52 10/19/24 21:52 10/19/24 21:52 10/19/24 21:30 10/19/24 21:52 Laboratory Results - last 24 hr 10/19/24 19:40: WBC 7.0, RBC 2.70 L, Hgb 7.6 L, Hct 25.7 L, MCV 95.2, MCH 28.1, MCHC 29.6 L, RDW 22.4 H, Plt Count 303, MPV 9.2, Neut % (Auto) 55.7, Lymph % (Auto) 32.7, [place] % (Auto) 8.9, Eos % (Auto) 2.0, Baso % (Auto) 0.4, Neut # (Auto) 3.9, Lymph # (Auto) 2.3, [place] # (Auto) 0.6, Eos # (Auto) 0.1, Baso # (Auto) 0.0, ESR 89 H, Sodium 139, Potassium 4.6, Chloride 106, Carbon Dioxide 25, Anion Gap 12.6, BUN 18 H, Creatinine 0.90, Estimated Creat Clear 67, Estimated GFR 63, Est GFR ( Amer) 77, Glucose 202 H, Calcium 8.8, Total Bilirubin 0.5, AST 26, ALT 16, Alkaline Phosphatase 153 H, Troponin I 0.02, C- Reactive Protein 17.4 H, NT-Pro-B Natriuret Pep > 96693 H, Total Protein 8.1, Albumin 3.7, Globulin 4.4 H, Albumin/Globulin Ratio 0.8 L, HCV Ab SATISH w/Rflx PCR Qn Negative, HIV Ag/Ab Combo Qual Negative 10/19/24 20:35: Lactate 2.2 H I & O for Last 24 hours: Intake & Output 10/16/24 10/17/24 10/18/24 10/19/24 23:59 23:59 23:59 23:59 Weight 72.575 kg Constitutional Constitutional: no acute distress *Routine HEENT Exam Head: Present normocephalic Eye: Present EOMI and PERRL ENT: Present mucous membranes moist *Routine Neck Exam Neck: Present supple; Absent lymphadenopathy *Routine Respiratory Exam Respiratory: Present diminished air movement and symmetric chest movement; Absent able to speak in complete sentences (Conversational dyspnea) *Routine Cardiovascular Exam Cardiovascular: Present RRR *Routine Abdominal Exam Abdominal: Present soft and normoactive bowel sounds; Absent tenderness *Routine Rectal Exam Rectal:: deferred *Routine Genitalia Exam Genitalia:: deferred *Routine Extremities Exam Extremities: Present cyanosis Comments: Chronic mottling to right lower extremity. Ulceration of the second toe. PT and DP pulses dopplerable *Routine Skin Exam Skin: Present warm; Absent rash *Routine Neurological Exam Neurological: Present alert and oriented X3 Assessment and Plan *Assessment and plan (1) Pulmonary edema: Status: Acute Qualifiers: Chronicity: acute Qualified Code(s): J81.0 - Acute pulmonary edema Category: Medical Code(s): J81.1 - Chronic pulmonary edema (2) Acute on chronic systolic heart failure: Status: Acute Category: Medical Code(s): I50.23 - Acute on chronic systolic (congestive) heart failure (3) Osteoarthritis of toe: Status: Acute Category: Medical Code(s): M19.079 - Primary osteoarthritis, unspecified ankle and foot (4) Cellulitis of foot: Status: Acute Category: Medical Code(s): L03.119 - Cellulitis of unspecified part of limb (5) Iron deficiency: Status: Acute Category: Medical Code(s): E61.1 - Iron deficiency (6) T2DM (type 2 diabetes mellitus): Status: Acute Qualifiers: Diabetes mellitus complication detail: with neuropathic arthropathy Diabetes mellitus complication status: with diabetic arthropathy Diabetes mellitus retirement insulin use: 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 Qualified Code(s): E11.610 - Type 2 diabetes mellitus with diabetic neuropathic arthropathy; Z79.4 - 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 Known history of systolic heart failure per chart review at (unknown EF) proBNP of 30,000 Continue IV diuresis Intake and output Low-sodium diet Fluid restriction #Osteoarthritis of toe, right #Cellulitis of foot right #PAD Prior history of MRSA osteomyelitis. Recent septic knee on the same side. Mild mottling noted but patient reports this is chronic. Toe ulceration worse per patient's report. Unable to palpate pulses but they are present with Doppler Given history and elevated ESR CRP, will continue vancomycin Likely will need podiatry involvement this hospitalization #Iron deficiency anemia Continue home ferrous sulfate #T2DM Continue long-acting and sliding scale insulin #HLD Continue statin #Hypothyroidism Continue levothyroxine #Vancomycin Requires intensive moniotring for toxicity pharmacy consulted monitor renal function ad serum vanc level and adjust as appropriate
--- NOTE | 2024-10-19 22:24 | PC.NURSE ---
Received report from Can in ED at [id number]
[2024-10-19 22:35] LABS: POC Glucose,Bedside 205 (70-110)
[2024-10-19] MEDS: VANCOMYCIN CONSULT REQUEST 1 EACH NOTAPPLIC (22:45)
[2024-10-19] MEDS: FUROSEMIDE 40MG/4ML VIAL 40 MG IV (22:52)
[2024-10-19 22:54] LABS: Procalcitonin 0.061 ng/mL (0.0-2.0)
[2024-10-19] MEDS: VANCOMYCIN/WATER FOR INJ (PEG) 1.75 GM/350 ML PIGGYBACK IV (22:56)
[2024-10-19 23:42] LABS: Troponin I 0.02 ng/ml (0.00-0.034)
[2024-10-20] VITALS (12 sets, daily range): BP systolic 129–142; BP diastolic 56–84; PULSE 66–103; RESP 16–24; TEMP 36.4–36.8; O2SAT 90–100; BMI 32.5
--- NOTE | 2024-10-20 00:25 | PC.NURSE ---
Patient states she is feeling short of breath, in tripod position and labored breathing. O2 stats at 95%. Placed on 2LNC.
[2024-10-20 00:47] LABS: Reflex Lactic Add Lactic Reflex
[2024-10-20 01:03] LABS: Lactic Acid Follow Up (RFLX 1) 1.7 mmol/L (0.7-2.1)
[2024-10-20 03:25] LABS: Troponin I 0.01 ng/ml (0.00-0.034)
[2024-10-20] MEDS: IPRATROPIUM/ALBUTEROL 3 ML NEB IH ×5 (04:44→21:42)
[2024-10-20 06:28] LABS: POC Glucose,Bedside 130 (70-110)
--- NOTE | 2024-10-20 06:48 | PC.WOUNDNOTE ---
left foot right foot right foot right leg right knee
[2024-10-20 07:56] LABS: Basophils % 0.3 % (0.1-2.0); Eosinophils # 0.1 Kmm3 (0.0-0.4); Eosinophils % 2.2 % (0.1-12.0); Hematocrit 22.5 % (37.0-47.0); Lymphocytes # 2.1 K/mm3 (0.7-4.5); Lymphocytes % 32.7 % (10-50); Mean Corpuscular HGB Conc 28.4 g/dL (31.8-35.4); Mean Corpuscular Hemoglobin 27.5 pg (27.0-31.2); Mean Corpuscular Volume 96.6 fl (81-99); Mean Platelet Volume 9.1 fl (7.4-10.4); Monocytes # 0.7 K/mm3 (0.1-1.0); Monocytes % 10.1 % (1.7-9.3); Neutrophils # 3.5 K/mm3 (1.8-7.8); Neutrophils % 54.1 % (37.0-80.0); Nucleated Red Blood Cells # 0.03 10^3/uL; Nucleated Red Blood Cells % 0.5 %; Platelet Count 260 K/mm3 (142-424); Red Blood Count 2.33 M/mm3 (4.20-5.40); Red Cell Distribution Width 22.1 % (11.5-17.5); Red Cell Distribution Width-SD 75.6 fL; White Blood Count 6.4 K/mm3 (4.8-10.8)
[2024-10-20 08:02] LABS: Hemoglobin 6.4 g/dL (12.2-16.2)
[2024-10-20 08:29] LABS: Chloride 108 mmol/L (98-107); Potassium 4.5 mmoL/L (3.5-5.1); Sodium 137 mmol/L (136-145)
[2024-10-20 08:32] LABS: Anion Gap 12.5 mEq/L (5-15); Blood Urea Nitrogen 18 mg/dl (7-17); Carbon Dioxide 21 mmol/L (22.0-30.0); Creatinine Clearance Estimated 74 mL/min (50-200); Estimated Glomerular Filt Rate 73 ml/min (>60); GFR (African American) 88 ML/MIN (>60)
[2024-10-20 08:33] LABS: Calcium 8.4 mg/dl (8.4-10.2); Glucose 125 mg/dl (74-100)
[2024-10-20] MEDS: FUROSEMIDE 100MG/10ML VIAL 80 MG IV ×2 (09:33→16:20)
[2024-10-20] MEDS: INSULIN GLARGINE 100 UNITS/ML 10ML VIAL 100 UNIT SUBCUT (09:39)
[2024-10-20 09:50] LABS: POC Glucose,Bedside 197 (70-110)
--- NOTE | 2024-10-20 09:59 | P.CONPHA_ITS ---
Pharmacy Consult Date: 10/20/24 Time: 09:59 Referring provider: DR. OJEDA Reason for Consult:: VANCOMYCIN DOSING Allergies Allergy/AdvReac Type Severity Reaction Status Date / Time canagliflozin (From [facility]) Allergy Severe kidney Verified 08/27/24 12:32 issues Home Medications ?Medication ?Instructions ?Recorded ?Confirmed ?Type linagliptin 5 mg tablet 5 mg PO DAILY Diabetes #90 tabs 01/21/23 10/19/24 Rx aspirin 81 mg tablet,delayed 81 mg PO DAILY CAD #90 tabs 08/29/23 10/19/24 Rx release (Darshana Low Dose Aspirin) ferrous sulfate 325 mg (65 mg 325 mg PO TID Supplement #90 tabs 08/29/23 10/19/24 Rx iron) tablet (Feosol) amitriptyline 50 mg tablet 50 mg PO HS 04/14/24 10/19/24 History atorvastatin 80 mg tablet 40 mg PO HS 04/14/24 10/19/24 History bupropion HCl 150 mg tablet,12 hr 150 mg PO BID 04/14/24 10/19/24 History sustained-release pramipexole 0.5 mg tablet 0.5 mg PO DAILY 04/14/24 10/19/24 History gabapentin 800 mg tablet 800 mg PO Q6H 04/15/24 10/19/24 History hydrocodone 10 mg-acetaminophen 1 tab PO Q6H 04/15/24 10/19/24 History 325 mg tablet spironolactone 25 mg tablet 25 mg PO DAILY 04/15/24 10/19/24 History blood-glucose meter #1 ea 04/17/24 10/19/24 Rx insulin lispro 100 unit/mL 20 unit SQ BID Diabetes 04/24/24 10/19/24 History subcutaneous pen sennosides 8.6 mg tablet (Senna 17.2 mg (2 x 8.6 mg) PO DAILY 30 04/24/24 10/19/24 Rx Laxative) days #60 tabs methylnaltrexone 150 mg tablet 450 mg PO DAILY 05/21/24 10/19/24 History (Relistor) polyethylene glycol 3350 17 17 g PO DAILY 05/21/24 10/19/24 History gram/dose oral powder (Miralax) levothyroxine 200 mcg tablet See Rx Instructions .Route 05/31/24 10/19/24 Rx .COMPLEX #90 tabs magnesium oxide 400 mg (241.3 mg 400 mg PO DAILY #90 tabs 08/22/24 10/19/24 Rx magnesium) tablet ondansetron 4 mg disintegrating 4 mg PO Q8H PRN nausea and 08/22/24 10/19/24 Rx tablet vomiting #30 tabs citalopram 20 mg tablet 20 mg PO DAILY #90 tabs 08/30/24 10/19/24 Rx semaglutide 1 mg/dose (4 mg/3 mL) See Rx Instructions .Route 10/02/24 10/19/24 Rx subcutaneous pen injector (Ozempic) .COMPLEX #3 mL allopurinol 100 mg tablet 100 mg PO DAILY #30 tabs 10/09/24 10/19/24 Rx carvedilol 25 mg tablet 12.5 mg (1/2 x 25 mg) PO BID #60 10/09/24 10/19/24 Rx tabs clopidogrel 75 mg tablet 75 mg PO DAILY #30 tabs 10/09/24 10/19/24 Rx lisinopril 40 mg tablet 40 mg PO HS #30 tabs 10/09/24 10/19/24 Rx pantoprazole 40 mg tablet,delayed 40 mg PO HS #90 tabs 10/09/24 10/19/24 Rx release insulin glargine 100 unit/mL (3 100 unit SQ BID #15 mL 10/15/24 10/19/24 Rx mL) subcutaneous pen (Lantus Solostar U-100 Insulin) furosemide 40 mg tablet 40 mg PO DAILY #90 tabs 10/16/24 10/19/24 Rx New Prescriptions to Start Prescriptions: Height: 1.57 m Weight: 80.104 kg Laboratory Results:: Laboratory Results - last 24 hr 10/19/24 19:40: WBC 7.0, RBC 2.70 L, Hgb 7.6 L, Hct 25.7 L, MCV 95.2, MCH 28.1, MCHC 29.6 L, RDW 22.4 H, Plt Count 303, MPV 9.2, Neut % (Auto) 55.7, Lymph % (Auto) 32.7, [place] % (Auto) 8.9, Eos % (Auto) 2.0, Baso % (Auto) 0.4, Neut # (Auto) 3.9, Lymph # (Auto) 2.3, [place] # (Auto) 0.6, Eos # (Auto) 0.1, Baso # (Auto) 0.0, ESR 89 H, Sodium 139, Potassium 4.6, Chloride 106, Carbon Dioxide 25, Anion Gap 12.6, BUN 18 H, Creatinine 0.90, Estimated Creat Clear 67, Estimated GFR 63, Est GFR ( Amer) 77, Glucose 202 H, Calcium 8.8, Total Bilirubin 0.5, AST 26, ALT 16, Alkaline Phosphatase 153 H, Troponin I 0.02, C- Reactive Protein 17.4 H, NT-Pro-B Natriuret Pep > 42513 H, Total Protein 8.1, Albumin 3.7, Globulin 4.4 H, Albumin/Globulin Ratio 0.8 L, Procalcitonin 0.061, HCV Ab SATISH w/Rflx PCR Qn Negative, HIV Ag/Ab Combo Qual Negative 10/19/24 20:35: Lactate 2.2 H 10/19/24 22:17: POC Glucose 205 H 10/19/24 23:13: Troponin I 0.02 10/20/24 00:30: Lactate 1.7 10/20/24 02:43: Troponin I 0.01 10/20/24 06:16: POC Glucose 130 H 10/20/24 06:45: WBC 6.4, RBC 2.33 L, Hgb 6.4 L*, Hct 22.5 L, MCV 96.6, MCH 27.5, MCHC 28.4 L, RDW 22.1 H, Plt Count 260, MPV 9.1, Neut % (Auto) 54.1, Lymph % (Auto) 32.7, [place] % (Auto) 10.1 H, Eos % (Auto) 2.2, Baso % (Auto) 0.3, Neut # ( Auto) 3.5, Lymph # (Auto) 2.1, [place] # (Auto) 0.7, Eos # (Auto) 0.1, Baso # (Auto) 0.0, Sodium 137, Potassium 4.5, Chloride 108 H, Carbon Dioxide 21 L, Ani on Gap 12.5, BUN 18 H, Creatinine 0.80, Estimated Creat Clear 74, Estimated GFR 73, Est GFR ( Amer) 88, Glucose 125 H D, Calcium 8.4 10/20/24 09:32: POC Glucose 197 H Medical History: Medical History (Updated 10/19/24 @ 22:45 by Valencia Dillon [facility]) Closed left ankle fracture Elevated left ventricular end-diastolic pressure (LVEDP) Edema of both lower extremities Syncope Abnormal result of cardiovascular function study Typical angina Arthritis GERD (gastroesophageal reflux disease) Depression COPD (chronic obstructive pulmonary disease) Arrhythmia Hyperlipidemia Assessment and Plan Assessment and plan all Dx Assessment and Plan for all problems:: Pharmacokinetic dosing service Objective: Patient: Floor: Age: 64 yo Serum creatinine: 0.80 mg/dL Height: 61.8 Inches Weight (kg): 80.1 Diagnosis: Relevant medical/social history: Cultures and sensitivities: Other labs: Assessment: IBW (kg): 49.64 Dosing wt(kg): 80.1 Estimated Creatinine clearance (ml/min): 57.1 CRCL method: Cockcroft and Gault using ibw(default). Drug selected: Vancomycin Loading dose (mg): Vd (liters): 64.1 (factor used: 0.8 L/kg) Fish (hr-1): 0.052 Half life (hrs): 13.33 CLvanco=?? 3.333 L/hr Recommended dose: 1250 mg Interval: 18 hrs Infusion time (hrs): 2.0 Predicted peak (mcg/mL): 30.5 Predicted trough (mcg/mL): 13.27 Total body weight is being used for vancomycin dosing. Recommendations: Give Vancomycin 1250 mg q 18 hrs with an expected Cpeak of 30.5 mcg/ml and an expected Ctrough of 13.27 mcg/ml AUC 0-24 /YAMIL Data: YAMIL 0.5 mcg/mL:?? AUC/YAMIL:? 1000.1 YAMIL 1.0 mcg/mL:?? AUC/YAMIL:? 500.1 --------- YAMIL 1.5 mcg/mL:?? AUC/YAMIL:? 333.4 YAMIL 2.0 mcg/mL:?? AUC/YAMIL:? 250.0 Thank you for the consult, will continue to follow. -BRIAN DUNBAR, ANAD
--- NOTE | 2024-10-20 10:48 | HMH.PHAINT1 ---
Pharmacy Intervention Comments: MEDICATION RECONCILIATION COMPLETED ON PATIENT USING EXTERNAL FILL HISTORY FROM PHARMACY AND LIST FROM PCP OFFICE. -BRIAN DUNBAR, ANAD
--- NOTE | 2024-10-20 11:09 | XR_ITS ---
PROCEDURE INFORMATION: Exam: XR Left Foot Exam date and time: 10/20/2024 1:55 PM Age: 64 years old Clinical indication: Other: Ulcer; Additional info: Osteo, ulcer TECHNIQUE: Imaging protocol: Radiologic exam of the left foot. Views: 1 or 2 views. COMPARISON: CR XR FOOT WT BEARING LT 3V 10/21/2022 8:35 AM FINDINGS: Bones/joints: Hallux valgus deformity. Degenerative changes in the 1st metatarsal phalangeal joint and IP joint. Degenerative changes in the tarsometatarsal joints . There is no evidence of acute fracture.There is no evidence of malalignment or dislocation. Soft tissues: Soft tissue swelling of the foot Other findings: Clawtoe deformities IMPRESSION: 1. Hallux valgus deformity. 2. Degenerative changes in the 1st metatarsal phalangeal joint and IP joint. 3. Degenerative changes in the tarsometatarsal joints . 4. There is no evidence of acute fracture.There is no evidence of malalignment or dislocation.
--- NOTE | 2024-10-20 11:10 | CT_ITS ---
PROCEDURE INFORMATION: Exam: CTA Chest With Contrast Exam date and time: 10/20/2024 1:51 PM Age: 64 years old Clinical indication: Shortness of breath; Additional info: New o2 requirement, right heart strain TECHNIQUE: Imaging protocol: Computed tomographic angiography of the chest with contrast. Exam focused on the arteries. 3D rendering (Not supervised by radiologist): MIP and/or 3D reconstructed images were created by the technologist. Radiation optimization: All CT scans at this facility use at least one of these dose optimization techniques: automated exposure control; mA and/or kV adjustment per patient size (includes targeted exams where dose is matched to clinical indication); or iterative reconstruction. Contrast material: ISOVUE; Contrast volume: 70 ml; Contrast route: INTRAVENOUS (IV); COMPARISON: CR XR CHEST PORTABLE 10/19/2024 8:24 PM FINDINGS: Pulmonary arteries: No evidence of pulmonary embolus to the segmental level. Aorta: No aneurysm of the aorta. No dissection of the aorta. Lungs: Consolidation in both lower lobes may represent atelectasis or pneumonia. Pleural spaces: Moderate right pleural effusion; smaller left pleural effusion.. Heart: There is calcification of the aortic valve annulus. There is calcification of the mitral valve annulus. Coronary arteries: Coronary artery calcifications may indicate coronary artery disease. Lymph nodes: Pathologic node anterior to the trachea 19 x 15 mm. Pathologic preaortic node 16 x 13 mm. Pathologic preaortic node 15 x 10 mm. Pathologic node in the AP window 16 x 15 mm pathologic node anterior to the vicente 19 x 14 mm. Subcarinal adenopathy 2.7 x 1.8 cm. Multiple small nodes in both axilla Gallbladder and biliary ducts: The common duct is prominent. It measures 17 millimeters. This may be due elderly status. However, if biliary obstruction is suspected clinically, recommend further evaluation. Bones/joints: Unremarkable. No acute fracture. Soft tissues: Unremarkable. IMPRESSION: 1. No evidence of pulmonary embolus to the segmental level. 2. No aneurysm of the aorta. 3. No dissection of the aorta. 4. Pathologic node anterior to the trachea 19 x 15 mm. Pathologic preaortic node 16 x 13 mm. Pathologic preaortic node 15 x 10 mm. Pathologic node in the AP window 16 x 15 mm pathologic node anterior to the vicente 19 x 14 mm. Subcarinal adenopathy 2.7 x 1.8 cm. 5. Moderate right pleural effusion; smaller left pleural effusion.. 6. Consolidation in both lower lobes may represent atelectasis or pneumonia. 7. The common duct is prominent. It measures 17 millimeters. This may be due elderly status. However, if biliary obstruction is suspected clinically, recommend further evaluation.
--- NOTE | 2024-10-20 11:11 | CA_ITS ---
FINAL REPORT CLINICAL HISTORY: SOB, PAD, DM, HLD, HTN, CAD, ex smoker. Recent right septic knee with orthopedic surgery approximately 1 month ago. She has been at a rehab facility recovering. Bilateral lower extremity swelling right > left. FINDINGS: DUPLEX VENOUS SONOGRAPHY OF THE BILATERAL LOWER EXTREMITIES Multiple transverse and longitudinal scans were performed of the femoropopliteal deep venous systems, with augmentation and compression maneuvers. FINDINGS: Normal phasic flow was noted in the visualized deep venous systems. No intraluminal increased echogenicity is noted to suggest thrombus. There is normal compression and augmentation of the venous structures. No abnormal venous collaterals are seen. IMPRESSION: No evidence of deep venous thrombosis of the bilateral lower extremities. Reviewed, Interpreted and Dictated by Myra Meredith MD Transcribed by Anne Osborn Authenticated and . [facility]
[2024-10-20] MEDS: humaLOG 100 UNITS/ML 10ML VIAL (SSI) SUBCUT ×3 (11:54→21:16)
--- NOTE | 2024-10-20 13:07 | HMH.ITSTN ---
Attempted to bring patient down for CT scan and left foot x-ray - patient stated that she wanted to finish eating her food and that her purewick had leaked so she wanted to be cleaned up before coming to scan. AGNIESZKA Porter said he would call us when she was ready to come down.
--- NOTE | 2024-10-20 13:53 | P.PN_ITS ---
Subjective *Date: 10/20/24 *Time: 17:16 Interval history: Please Rebeka. Short of breath with interview. Still on oxygen of 1 L. Afebrile. No nausea or vomiting. Has significant swelling in legs. Medical Exam Vital signs and Labs for Last 24 Hours: Vital Signs Temp Pulse Pulse Resp BP BP Pulse Ox 10/20/24 12:00 97.5 F L 94 H 16 132/72 98 10/20/24 11:00 10/20/24 10:25 66 10/20/24 10:25 73 10/20/24 10:25 90 L 10/20/24 09:00 10/20/24 08:00 97.6 F 91 H 16 130/69 100 10/20/24 06:42 10/20/24 05:00 10/20/24 04:47 89 10/20/24 04:47 88 10/20/24 04:47 99 10/20/24 04:00 97.9 F 91 H 24 140/79 100 10/20/24 03:00 10/20/24 00:47 10/20/24 00:00 97.8 F 99 H 22 132/75 98 10/19/24 23:00 10/19/24 23:00 98.5 F 107 H 23 147/90 H 100 10/19/24 21:58 22 10/19/24 21:52 98 F 100 H 20 148/91 H 10/19/24 21:30 100 H 18 148/91 H 96 10/19/24 21:00 99 H 20 142/93 H 99 10/19/24 20:41 100 H 20 152/86 H 98 10/19/24 19:40 98.2 F 108 H 20 143/79 H 97 O2 Del Method O2 Flow Rate 10/20/24 12:00 Room Air 10/20/24 11:00 Nasal Cannula 1 10/20/24 10:25 10/20/24 10:25 10/20/24 10:25 Nasal Cannula 1 10/20/24 09:00 Nasal Cannula 1 10/20/24 08:00 Nasal Cannula 1 10/20/24 06:42 Nasal Cannula 1 10/20/24 05:00 Nasal Cannula 1 10/20/24 04:47 10/20/24 04:47 10/20/24 04:47 Nasal Cannula 2 10/20/24 04:00 Nasal Cannula 2 10/20/24 03:00 Nasal Cannula 2 10/20/24 00:47 Nasal Cannula 2 10/20/24 00:00 Nasal Cannula 2 10/19/24 23:00 Room Air 10/19/24 23:00 Room Air 10/19/24 21:58 Room Air 10/19/24 21:52 Room Air 10/19/24 21:30 10/19/24 21:00 10/19/24 20:41 10/19/24 19:40 Room Air Intake and Output 10/19/24 10/20/24 10/20/24 23:59 07:59 15:59 Intake Total 540 / 540 Balance 540 / 540 Intake: Intake, Oral Amount 540 / 540 Other: Weight 78.608 kg 80.104 kg 80.104 kg Patient Weight 10/20/24 23:59 Weight 80.104 kg Laboratory Results - last 24 hr 10/19/24 19:40: WBC 7.0, RBC 2.70 L, Hgb 7.6 L, Hct 25.7 L, MCV 95.2, MCH 28.1, MCHC 29.6 L, RDW 22.4 H, Plt Count 303, MPV 9.2, Neut % (Auto) 55.7, Lymph % (Auto) 32.7, Delta % (Auto) 8.9, Eos % (Auto) 2.0, Baso % (Auto) 0.4, Neut # (Auto) 3.9, Lymph # (Auto) 2.3, Delta # (Auto) 0.6, Eos # (Auto) 0.1, Baso # (Auto) 0.0, ESR 89 H, Sodium 139, Potassium 4.6, Chloride 106, Carbon Dioxide 25, Anion Gap 12.6, BUN 18 H, Creatinine 0.90, Estimated Creat Clear 67, Estimated GFR 63, Est GFR ( Amer) 77, Glucose 202 H, Calcium 8.8, Total Bilirubin 0.5, AST 26, ALT 16, Alkaline Phosphatase 153 H, Troponin I 0.02, C- Reactive Protein 17.4 H, NT-Pro-B Natriuret Pep > 45719 H, Total Protein 8.1, Albumin 3.7, Globulin 4.4 H, Albumin/Globulin Ratio 0.8 L, Procalcitonin 0.061, HCV Ab SATISH w/Rflx PCR Qn Negative, HIV Ag/Ab Combo Qual Negative 10/19/24 20:35: Lactate 2.2 H 10/19/24 22:17: POC Glucose 205 H 10/19/24 23:13: Troponin I 0.02 10/20/24 00:30: Lactate 1.7 10/20/24 02:43: Troponin I 0.01 10/20/24 06:16: POC Glucose 130 H 10/20/24 06:45: WBC 6.4, RBC 2.33 L, Hgb 6.4 L*, Hct 22.5 L, MCV 96.6, MCH 27.5, MCHC 28.4 L, RDW 22.1 H, Plt Count 260, MPV 9.1, Neut % (Auto) 54.1, Lymph % (Auto) 32.7, [place] % (Auto) 10.1 H, Eos % (Auto) 2.2, Baso % (Auto) 0.3, Neut # (Auto) 3.5, Lymph # (Auto) 2.1, Delta # (Auto) 0.7, Eos # (Auto) 0.1, Baso # (Auto) 0.0, Sodium 137, Potassium 4.5, Chloride 108 H, Carbon Dioxide 21 L, Anion Gap 12.5, BUN 18 H, Creatinine 0.80, Estimated Creat Clear 74, Estimated GFR 73, Est GFR ( Amer) 88, Glucose 125 H D, Calcium 8.4 10/20/24 09:32: POC Glucose 197 H 10/20/24 09:55: Blood Type A Positive, Antibody Screen Negative, Crossmatch (AHG) See Detail 10/20/24 : Blood Type Confirm A Positive I & O for Labs for Last 24 Hours: Intake & Output 10/17/24 10/18/24 10/19/24 10/20/24 23:59 23:59 23:59 23:59 Intake Total 540 / 540 Balance 540 / 540 Weight 78.608 kg 80.104 kg Constitutional: Present mild distress, obese, chronically ill appearing and cooperative Head: Present atraumatic and normocephalic ENT: Present normal exam Respiratory: Present crackles (Diffuse and bilateral lung field) and normal respiratory effort; Absent rhonchi or wheezes Cardiac: Present Reg Rate and Rhythm GI: Present soft, distention and normal bowel sounds; Absent tenderness Extremities: Present full ROM Comment:: Multiple lesions on bilateral feet. Second toe on right foot concerning for osteomyelitis. Wound proximal left metatarsal left foot with clean base. Skin: Present wounds; Absent erythema Neuro: Present Grossly Intact, alert, awake, oriented x 3 and moves all extremities Assessment and Plan *Assessment and plan (1) Pulmonary edema: Status: Acute Qualifiers: Chronicity: acute Qualified Code(s): J81.0 - Acute pulmonary edema Category: Medical Code(s): J81.1 - Chronic pulmonary edema (2) Acute on chronic systolic heart failure: Status: Acute Category: Medical Code(s): I50.23 - Acute on chronic systolic (congestive) heart failure (3) Osteoarthritis of toe: Status: Acute Category: Medical Code(s): M19.079 - Primary osteoarthritis, unspecified ankle and foot (4) Cellulitis of foot: Status: Acute Category: Medical Code(s): L03.119 - Cellulitis of unspecified part of limb (5) Iron deficiency: Status: Acute Category: Medical Code(s): E61.1 - Iron deficiency (6) T2DM (type 2 diabetes mellitus): Status: Acute Qualifiers: Diabetes mellitus complication detail: with neuropathic arthropathy Diabetes mellitus complication status: with diabetic arthropathy Diabetes mellitus long term care phlebotomist insulin use: with long term care phlebotomist use Qualified Code(s): E11.610 - Type 2 diabetes mellitus with diabetic neuropathic arthropathy; Z79.4 - skilled nursing (current) use of insulin Category: Medical Code(s): E11.9 - Type 2 diabetes mellitus without complications (7) Hyperlipidemia: Status: Acute Qualifiers: Hyperlipidemia type: unspecified Qualified Code(s): E78.5 - Hyperlipidemia, unspecified Category: Medical Code(s): E78.5 - Hyperlipidemia, unspecified (8) Peripheral arterial disease: Status: Acute Category: Medical Code(s): I73.9 - Peripheral vascular disease, unspecified Plan 64-year-old female who presented with shortness of breath. Had prolonged course of treatment at over the past few months for infection and knee along with amputation of toe. Presented with new oxygen requirement due to her hypoxia. Appears frankly volume overloaded. Initiated on aggressive diuresis and supplemental oxygen. Podiatry consulted to evaluate patient's feet on Tuesday. Continuing antibiotics for infection. Necessitates inpatient care. Problems addressed as follows #Pulmonary edema #Acute on chronic systolic congestive heart failure # Hypertension # Hyperlipidemia Bilateral lower extremity edema, chest x-ray with pulmonary edema. Known histor y of systolic heart failure per chart review at (unknown EF) -Initiated on IV diuresis with proBNP of >30,000. Continue Lasix 80 mg IV twice daily - Extremity swelling and significant mobility decrease, bilateral duplex ordered to evaluate for DVT -Echo ordered, to be obtained Tuesday -Strict monitoring of output. - Continue home medications for heart failure and hypertension including Lipitor 40 mg nightly, carvedilol 12 and half milligrams twice daily, Plavix 75 mg daily, lisinopril 40 mg nightly, spironolactone 25 mg daily - Continues to require supplemental oxygen, currently on 1 L, wean as tolerated for goal sats greater 90%. - Due to oxygen requirement, sedentary state, will obtain CT of the chest to evaluate for PE. Consider anticoagulation thereafter #Osteoarthritis of toe, right #Cellulitis of foot right #PAD Prior history of MRSA osteomyelitis. Recent septic knee on the same side. Mild mottling noted but patient reports this is chronic. Toe ulceration worse per patient's report. Unable to palpate pulses but they are present with Doppler Continue vancomycin IV, close monitoring for toxicity Podiatry consult placed for Tuesday. No wounds with lauren drainage that can be cultured at this time. - BUN 18, creatinine 0.8. White count 6.4. Repeat CBC, CMP, magnesium ordered for the morning. #Iron deficiency anemia: - Hemoglobin appeared to drop to 6.4 this morning on labs. Ordered 1 unit transfusion for hemoglobin less than 7. Labs obtained to type and cross showed hemoglobin of 7.2. Held transfusion at this time. Will administer Venofer 200 mg IV once. #T2DM Continue long-acting and sliding scale insulin. Fingersticks ACHS. Hold Ozempic during admission #Hypothyroidism: Continue home levothyroxine 200 mcg daily Continue home gabapentin 800 mg 4 times a day for neuropathy Continue hydrocodone 5 mg as needed every 6 hours per home regimen Continue stool softeners with Senokot daily for constipation Full code Diabetic diet Heparin 5k units TID
[2024-10-20] MEDS: 0.9 % SODIUM CHLORIDE 50 ML VIAL IV (14:00)
[2024-10-20] MEDS: SODIUM CHLORIDE 0.9% 10ML SYR (RAD ONLY) 10 ML IV (14:01)
[2024-10-20] MEDS: IOPAMIDOL-370 (76%);100ML BOTTLE 70 ML IV (14:01)
[2024-10-20] MEDS: HYDROCODONE/APAP 5/325 MG TABLET 1 TAB PO ×2 (16:19→21:24)
[2024-10-20] MEDS: VANCOMYCIN/WATER FOR INJ (PEG) 1.25 GM/250 ML PIGGYBACK IV (16:22)
[2024-10-20] MEDS: GABAPENTIN 800MG TABLET 800 MG PO ×2 (16:44→22:14)
--- NOTE | 2024-10-20 16:51 | PC.NURSE ---
1LNC FOR O2 SUPPORT IN PLACE. 1 UNIT RBCS ORDERED TODAY BUT ON HOLD R/T IMPROVEMENT OF HEMOGLOBIN. INITIAL CHECK WAS CRITICAL AT 6.4 BUT ON RECHECK FOR TYPE AND SCREEN IT HAD IMPROVED TO 7.2. I SPOKE WITH DR OJEDA AND UNIT WAS HELD.
[2024-10-20 19:33] LABS: POC Glucose,Bedside 175 (70-110)
[2024-10-20 19:33] LABS: POC Glucose,Bedside 189 (70-110)
[2024-10-20 20:09] LABS: POC Glucose,Bedside 161 (70-110)
[2024-10-20] MEDS: ATORVASTATIN 40MG TABLET 40 MG PO (21:16)
[2024-10-20] MEDS: HEPARIN SODIUM 5,000 UNIT/ML VIAL 5000 UNIT SUBCUT (21:16)
[2024-10-20] MEDS: AMITRIPTYLINE 50MG TABLET 50 MG PO (21:17)
[2024-10-20] MEDS: CARVEDILOL 25MG TABLET 12.5 MG PO (21:17)
[2024-10-20] MEDS: INSULIN GLARGINE 100 UNITS/ML 10ML VIAL 50 UNIT SUBCUT (21:18)
[2024-10-21] VITALS (10 sets, daily range): BP systolic 108–154; BP diastolic 59–98; PULSE 74–100; RESP 13–20; TEMP 36.3–37.2; O2SAT 94–99; BMI 31.0
[2024-10-21] MEDS: IPRATROPIUM/ALBUTEROL 3 ML NEB IH ×5 (02:08→22:56)
[2024-10-21] MEDS: DEXTROSE 50% 50ML SYRINGE (CRASH CART) 50 ML IVP ×2 (06:05→06:43)
[2024-10-21 06:33] LABS: Basophils % 0.5 % (0.1-2.0); Eosinophils # 0.2 Kmm3 (0.0-0.4); Eosinophils % 2.4 % (0.1-12.0); Hematocrit 24.9 % (37.0-47.0); Lymphocytes # 1.5 K/mm3 (0.7-4.5); Lymphocytes % 23.4 % (10-50); Mean Corpuscular HGB Conc 29.7 g/dL (31.8-35.4); Mean Corpuscular Hemoglobin 27.7 pg (27.0-31.2); Mean Corpuscular Volume 93.3 fl (81-99); Mean Platelet Volume 8.9 fl (7.4-10.4); Monocytes # 0.5 K/mm3 (0.1-1.0); Monocytes % 7.8 % (1.7-9.3); Neutrophils # 4.3 K/mm3 (1.8-7.8); Neutrophils % 65.4 % (37.0-80.0); Nucleated Red Blood Cells # 0 10^3/uL; Nucleated Red Blood Cells % 0 %; Platelet Count 284 K/mm3 (142-424); Red Blood Count 2.67 M/mm3 (4.20-5.40); Red Cell Distribution Width 22.3 % (11.5-17.5); White Blood Count 6.6 K/mm3 (4.8-10.8)
[2024-10-21 06:35] LABS: Lactate Venous 1.4 mmol/L (0.4-2.0); VBG Base Excess -0.5 mmol/L (-2.4-2.3); VBG HCO3 23.3 mmol/L (23-30); VBG Oxygen Saturation 99.1 % (50-70); VBG PH 7.47 mmol/L (7.31-7.41); VBG PO2 144.7 mmol/L (28-40); VBG Total CO2 24.3 mmol/L (23-27)
[2024-10-21 06:48] LABS: Hemoglobin 7.5 g/dL (12.2-16.2)
[2024-10-21] MEDS: NALOXONE 0.4MG/ML VIAL 0.4 MG IV (06:53)
[2024-10-21 07:02] LABS: Albumin Level 3.2 g/dl (3.5-5.0); Chloride 106 mmol/L (98-107); Potassium 3.9 mmoL/L (3.5-5.1); Sodium 137 mmol/L (136-145)
[2024-10-21 07:05] LABS: Alanine Aminotransferase 14 U/L (12-78); Alkaline Phosphatase 128 U/L (38-126); Anion Gap 7.9 mEq/L (5-15); Aspartate Amino Transferase 24 U/L (14-36); Bilirubin,Total 0.2 mg/dl (0.2-1.3); Calcium 9.2 mg/dl (8.4-10.2); Carbon Dioxide 27 mmol/L (22.0-30.0); Globulin 3.2 g/dL (1.3-3.2); Glucose 111 mg/dl (74-100); Magnesium 1.7 mg/dl (1.6-2.3); Total Protein,Serum 6.4 g/dl (6.3-8.2)
[2024-10-21 07:10] LABS: Blood Urea Nitrogen 19 mg/dl (7-17); Creatinine Clearance Estimated 70 mL/min (50-200); Estimated Glomerular Filt Rate 73 ml/min (>60); GFR (African American) 88 ML/MIN (>60)
[2024-10-21 07:11] LABS: C-Reactive Protein 12.8 mg/L (0-4)
--- NOTE | 2024-10-21 07:19 | PC.NURSE ---
fsbs 50 - amp d50 administered - fsbs 189 - rechecked again 139 - hospitalist to bedside 1L NS to gravity - VSS - VBG WNL - unable to arouse w/ sternum rub and stimulation - narcan administered and patient started to arouse. belongings searched per licha and a bottle of hydrocodone 10's found - patient asked if she has been taking her pain pills tonight and states she took 2 of her pills (on top of what RN administered per [facility]). hydrocodone counted and locked up by brigido rosales aprn and mary lou cárdenas rn. several pills missing from refilled rx estimated 40 (10/11/24)
[2024-10-21 07:57] LABS: Erythrocyte Sedimentation Rate 118 mm/hr (0-30)
[2024-10-21 08:24] LABS: POC Glucose,Bedside 137 (70-110)
[2024-10-21 08:24] LABS: POC Glucose,Bedside 50 (70-110)
[2024-10-21 08:24] LABS: POC Glucose,Bedside 189 (70-110)
[2024-10-21] MEDS: PRAMIPEXOLE 1MG TAB 0.5 MG PO (08:44)
[2024-10-21] MEDS: CARVEDILOL 12.5MG TABLET 12.5 MG PO ×2 (08:44→20:42)
[2024-10-21] MEDS: buPROPion HCl SR 150MG TAB 150 MG PO ×2 (08:44→20:42)
[2024-10-21] MEDS: ALLOPURINOL 100MG TABLET 100 MG PO (08:45)
[2024-10-21] MEDS: SENNA 8.6MG TABLET 17.2 MG PO (08:45)
[2024-10-21] MEDS: LEVOTHYROXINE 100MCG (0.1MG) TAB 200 MCG PO (08:45)
[2024-10-21] MEDS: CITALOPRAM 20MG TABLET 20 MG PO (08:45)
[2024-10-21] MEDS: SPIRONOLACTONE 25MG TABLET 25 MG PO (08:45)
[2024-10-21] MEDS: CLOPIDOGREL 75MG TAB 75 MG PO (08:46)
[2024-10-21] MEDS: IRON SUCROSE COMPLEX 200 MG in 0.9 % SODIUM CHLORIDE 100 ML 220 MG IV (08:46)
[2024-10-21] MEDS: HEPARIN SODIUM 5,000 UNIT/ML VIAL 5000 UNIT SUBCUT ×3 (08:48→20:42)
[2024-10-21] MEDS: FUROSEMIDE 100MG/10ML VIAL 80 MG IV ×2 (08:48→16:07)
[2024-10-21 09:03] LABS: POC Glucose,Bedside 83 (70-110)
[2024-10-21] MEDS: VANCOMYCIN/WATER FOR INJ (PEG) 1.25 GM/250 ML PIGGYBACK IV (11:31)
[2024-10-21] MEDS: INSULIN GLARGINE 100 UNITS/ML 10ML VIAL 50 UNIT SUBCUT (11:50)
[2024-10-21 12:42] LABS: POC Glucose,Bedside 347 (70-110)
[2024-10-21] MEDS: GABAPENTIN 800MG TABLET 800 MG PO ×2 (14:13→20:53)
[2024-10-21 16:36] LABS: POC Glucose,Bedside 143 (70-110)
--- NOTE | 2024-10-21 17:29 | P.PN_ITS ---
Subjective *Date: 10/21/24 *Time: 18:33 Interval history: Patient somnolent this morning on morning evaluation by nursing. Due to confusion, was given a dose of Narcan. Had improvement in mentation. After questioning patient, appears she has been taking her home hydrocodone in conjunction with what we have been administering. Bottle found in her purse. Bottle given to nursing and placed in a locked drawer. Remained stable on room air this morning. Afebrile. Having response to diuresis, -1 L in the past 24 hours. Denies nausea or vomiting Medical Exam Vital signs and Labs for Last 24 Hours: Vital Signs Temp Pulse Pulse Resp BP Pulse Ox O2 Del Method 10/21/24 15:00 Nasal Cannula 10/21/24 13:00 Nasal Cannula 10/21/24 12:00 97.4 F L 80 17 110/67 97 Room Air 10/21/24 11:04 74 10/21/24 11:04 76 10/21/24 11:04 94 L Nasal Cannula 10/21/24 11:00 Nasal Cannula 10/21/24 09:00 Nasal Cannula 10/21/24 08:00 Nasal Cannula 10/21/24 08:00 98.6 F 82 20 154/98 H 98 10/21/24 08:00 80 10/21/24 07:00 Room Air 10/21/24 05:00 Room Air 10/21/24 04:00 80 10/21/24 04:00 97.9 F 79 19 121/71 95 Room Air 10/21/24 02:46 Room Air 10/21/24 02:27 89 10/21/24 02:26 88 10/21/24 01:00 Room Air 10/21/24 00:00 100 H 10/21/24 00:00 98.4 F 84 13 119/63 97 Room Air 10/20/24 23:00 Room Air 10/20/24 22:15 91 H 10/20/24 22:00 90 10/20/24 21:00 Room Air 10/20/24 20:00 90 10/20/24 20:00 Room Air 10/20/24 20:00 98.3 F 96 H 21 129/56 L 98 Room Air 10/20/24 19:01 Nasal Cannula 10/20/24 19:00 98 H 10/20/24 19:00 97 H 10/20/24 18:12 Nasal Cannula O2 Flow Rate 10/21/24 15:00 1 10/21/24 13:00 1 10/21/24 12:00 10/21/24 11:04 10/21/24 11:04 10/21/24 11:04 10/21/24 11:00 1 10/21/24 09:00 1 10/21/24 08:00 1 10/21/24 08:00 10/21/24 08:00 10/21/24 07:00 10/21/24 05:00 10/21/24 04:00 10/21/24 04:00 10/21/24 02:46 10/21/24 02:27 10/21/24 02:26 10/21/24 01:00 10/21/24 00:00 10/21/24 00:00 10/20/24 23:00 10/20/24 22:15 10/20/24 22:00 10/20/24 21:00 10/20/24 20:00 10/20/24 20:00 10/20/24 20:00 10/20/24 19:01 1 10/20/24 19:00 10/20/24 19:00 10/20/24 18:12 1 Intake and Output 10/21/24 10/21/24 10/21/24 07:59 15:59 23:59 Intake Total 240 / 480 240 / 480 Output Total 1150 / 1150 Balance 240 / -670 -910 / -670 Intake: Intake, Oral Amount 240 / 480 240 / 480 Output: Output, Urine Amount 1150 / 1150 Other: Number of Unmeasured Voids 0 Number of Bowel Movements 1 Weight 76.521 kg Patient Weight 10/21/24 23:59 Weight 76.521 kg Laboratory Results - last 24 hr 10/20/24 11:52: POC Glucose 175 H 10/20/24 16:22: POC Glucose 189 H 10/20/24 20:00: POC Glucose 161 H 10/21/24 06:00: POC Glucose 50 L 10/21/24 06:08: POC Glucose 189 H 10/21/24 06:15: VBG pH 7.47 H, VBG pCO2 33.0 L, VBG pO2 144.7 H, VBG HCO3 23.3, VBG Total CO2 24.3, VBG O2 Saturation 99.1 H, VBG Base Excess -0.5, VBG Lactic Acid 1.4 10/21/24 06:22: POC Glucose 137 H 10/21/24 06:29: WBC 6.6, RBC 2.67 L, Hgb 7.5 L D, Hct 24.9 L, MCV 93.3, MCH 27.7, MCHC 29.7 L, RDW 22.3 H, Plt Count 284, MPV 8.9, Neut % (Auto) 65.4, Lymph % (Auto) 23.4, [place] % (Auto) 7.8, Eos % (Auto) 2.4, Baso % (Auto) 0.5, Neut # (Auto) 4.3, Lymph # (Auto) 1.5, [place] # (Auto) 0.5, Eos # (Auto) 0.2, Baso # (Auto) 0.0, ESR 118 H, Sodium 137, Potassium 3.9, Chloride 106, Carbon Dioxide 27, Anion Gap 7.9, BUN 19 H, Creatinine 0.80, Estimated Creat Clear 70, Estimated GFR 73, Est GFR ( Amer) 88, Glucose 111 H, Calcium 9.2, Magnesium 1.7, Total Bilirubin 0.2, AST 24, ALT 14, Alkaline Phosphatase 128 H, C-Reactive Protein 12.8 H D, Total Protein 6.4, Albumin 3.2 L D, Globulin 3.2, Albumin/Globulin Ratio 1.0 L 10/21/24 08:40: POC Glucose 83 10/21/24 11:35: POC Glucose 347 H* 10/21/24 16:08: POC Glucose 143 H I & O for Labs for Last 24 Hours: Intake & Output 10/18/24 10/19/24 10/20/24 10/21/24 23:59 23:59 23:59 23:59 Intake Total 2020 / 2260 480 / 480 Output Total 3450 / 3450 1150 / 1150 Balance -1430 / -1190 -670 / -670 Weight 78.608 kg 80.104 kg 76.521 kg Microbiology Reports for the Last 24 Hours: Microbiology 10/19/24 20:35 Blood Blood Culture - Preliminary NO GROWTH AFTER 24 HOURS 10/19/24 20:35 Blood Blood Culture - Preliminary Constitutional: Present mild distress, obese, chronically ill appearing and somnolent Head: Present atraumatic and normocephalic ENT: Present normal exam Respiratory: Present crackles (Diffuse and bilateral lung field) and normal respiratory effort; Absent rhonchi or wheezes Cardiac: Present Reg Rate and Rhythm GI: Present soft, distention and normal bowel sounds; Absent tenderness Extremities: Present full ROM Comment:: Multiple lesions on bilateral feet. Second toe on right foot concerning for osteomyelitis. Wound proximal left metatarsal left foot with clean base. Skin: Present wounds; Absent erythema Neuro: Present Grossly Intact and moves all extremities Comment:: Awoke to sternal rub and opened eyes fell back asleep. Unable to assess oriented Assessment and Plan *Assessment and plan (1) Pulmonary edema: Status: Acute Qualifiers: Chronicity: acute Qualified Code(s): J81.0 - Acute pulmonary edema Category: Medical Code(s): J81.1 - Chronic pulmonary edema (2) Acute on chronic systolic heart failure: Status: Acute Category: Medical Code(s): I50.23 - Acute on chronic systolic (congestive) heart failure (3) Osteoarthritis of toe: Status: Acute Category: Medical Code(s): M19.079 - Primary osteoarthritis, unspecified ankle and foot (4) Cellulitis of foot: Status: Acute Category: Medical Code(s): L03.119 - Cellulitis of unspecified part of limb (5) Iron deficiency: Status: Acute Category: Medical Code(s): E61.1 - Iron deficiency (6) T2DM (type 2 diabetes mellitus): Status: Acute Qualifiers: Diabetes mellitus complication detail: with neuropathic arthropathy Diabetes mellitus complication status: with diabetic arthropathy Diabetes mellitus senior care insulin use: with termite inspector use Qualified Code(s): E11.610 - Type 2 diabetes mellitus with diabetic neuropathic arthropathy; Z79.4 - alf (current) use of insulin Category: Medical Code(s): E11.9 - Type 2 diabetes mellitus without complications (7) Hyperlipidemia: Status: Acute Qualifiers: Hyperlipidemia type: unspecified Qualified Code(s): E78.5 - Hyperlipidemia, unspecified Category: Medical Code(s): E78.5 - Hyperlipidemia, unspecified (8) Peripheral arterial disease: Status: Acute Category: Medical Code(s): I73.9 - Peripheral vascular disease, unspecified Plan 64-year-old female who presented with shortness of breath. Had prolonged course of treatment at over the past few months for infection and knee along with amputation of toe. Presented with new oxygen requirement due to her hypoxia. Appears frankly volume overloaded. Initiated on aggressive diuresis and supplemental oxygen. Podiatry consulted to evaluate patient's feet on Tuesday. Continuing antibiotics for infection. Necessitates inpatient care. Problems addressed as follows #Pulmonary edema #Acute on chronic systolic congestive heart failure # Hypertension # Hyperlipidemia Bilateral lower extremity edema, chest x-ray with pulmonary edema. Known his tory of systolic heart failure per chart review at (unknown EF) - Initiated on IV diuresis with proBNP of >30,000. Continue Lasix 80 mg IV twice daily - Extremity swelling and significant mobility decrease, bilateral duplex ordered to evaluate for DVT - Echo ordered, to be obtained Tuesday - Strict monitoring of output. -1 L in the past 24 hours - Continue home medications for heart failure and hypertension including Lipitor 40 mg nightly, carvedilol 12 and half milligrams twice daily, Plavix 75 mg daily, lisinopril 40 mg nightly, spironolactone 25 mg daily - Goal sats greater 90%, currently on room air. - CT obtained of chest, per my review negative for PE #Osteoarthritis of toe, right #Cellulitis of foot right #PAD Prior history of MRSA osteomyelitis. Recent septic knee on the same side. Mild mottling noted but patient reports this is chronic. Toe ulceration worse per patient's report. Unable to palpate pulses but they are present with Doppler Continue vancomycin IV, close monitoring for toxicity Podiatry consult placed for Tuesday. No wounds with lauren drainage that can be cultured at this time. - BUN 19, creatinine 0.8, CRP 12.8. ESR 118. Repeat CBC, CMP, magnesium ord ered for the morning. - Due to pain, patient has been taking her own home hydrocodone in conjunction with what we are administering here. Had oversedation. Necessitated Narcan. High risk for polypharmacy and toxicity. Weaning doses of pain medication. #Iron deficiency anemia: - Hemoglobin stable this morning at 7.5, white count 6.6. - Transfusion threshold hemoglobin less than 7 - administer Venofer 200 mg IV once. #T2DM: continue long-acting and sliding scale insulin. Fingersticks ACHS. Hold Ozempic during admission, A1c 7.9 two months ago #Hypothyroidism: Continue home levothyroxine 200 mcg daily Continue home gabapentin 800 mg, transition to every 6 hours as needed as opposed to scheduled Continue hydrocodone increased to 7.5 mg every 6 hours as needed for pain control. Home regimen is 10 mg. Due to oversedation, will administer slightly smaller dose. High risk for polypharmacy and oversedation Continue stool softeners with Senokot daily for constipation Full code Diabetic diet Heparin 5k units TID
[2024-10-21] MEDS: ATORVASTATIN 40MG TABLET 40 MG PO (20:42)
[2024-10-21] MEDS: AMITRIPTYLINE 50MG TABLET 50 MG PO (20:42)
[2024-10-21 20:53] LABS: POC Glucose,Bedside 119 (70-110)
[2024-10-21] MEDS: APAP/HYDROCODONE 325MG/7.5MG TAB 1 TAB PO (20:53)
[2024-10-21] MEDS: LISINOPRIL 20MG TABLET 40 MG PO (20:53)
[2024-10-22] VITALS (27 sets, daily range): BP systolic 91–131; BP diastolic 49–82; PULSE 60–89; RESP 14–20; TEMP 36.4–37.3; O2SAT 91–100; BMI 30.4
[2024-10-22] MEDS: NALOXONE 0.4MG/ML VIAL 0.4 MG IV ×2 (01:30→01:35)
[2024-10-22 01:39] LABS: Lactate Venous 1.7 mmol/L (0.4-2.0); VBG HCO3 26.2 mmol/L (23-30); VBG Oxygen Saturation 85.1 % (50-70); VBG PCO2 34.4 mmol/L (35-51); VBG PO2 47.5 mmol/L (28-40); VBG Total CO2 27.2 mmol/L (23-27)
[2024-10-22] MEDS: DEXTROSE 50% 50ML SYRINGE (CRASH CART) 50 ML IVP ×3 (01:41→16:25)
--- NOTE | 2024-10-22 01:43 | PC.NURSE ---
patient was found confused and diaphoretic. fsbs RR LOW per glucometer. D50 administered and fsbs 241 -- rechecked 5 min after 189. patient still has minimal response. narcan administered x 2. patient began to respond more at that point with stimuli. Hospitalist called to bedside during this episode. tele and pulse ox placed for monitoring. patient denies taking any medications that weren't provided by the nursing staff.
[2024-10-22 02:12] LABS: Albumin Level 3.2 g/dl (3.5-5.0); Chloride 102 mmol/L (98-107); Potassium 3.9 mmoL/L (3.5-5.1); Sodium 135 mmol/L (136-145)
[2024-10-22 02:15] LABS: Alanine Aminotransferase 12 U/L (12-78); Albumin/Globulin Ratio 0.9 (1.1-1.8); Alkaline Phosphatase 123 U/L (38-126); Anion Gap 9.9 mEq/L (5-15); Aspartate Amino Transferase 23 U/L (14-36); Bilirubin,Total 0.2 mg/dl (0.2-1.3); Blood Urea Nitrogen 19 mg/dl (7-17); Calcium 8.8 mg/dl (8.4-10.2); Carbon Dioxide 27 mmol/L (22.0-30.0); Creatinine Clearance Estimated 70 mL/min (50-200); Estimated Glomerular Filt Rate 63 ml/min (>60); GFR (African American) 77 ML/MIN (>60); Globulin 3.4 g/dL (1.3-3.2); Glucose 116 mg/dl (74-100); Total Protein,Serum 6.6 g/dl (6.3-8.2)
[2024-10-22] MEDS: IPRATROPIUM/ALBUTEROL 3 ML NEB IH ×2 (02:15→06:15)
--- NOTE | 2024-10-22 05:35 | PC.NURSE ---
rechecked fsbs 79 - gave 240 ml OJ - patient A&Ox4
--- NOTE | 2024-10-22 06:00 | US_ITS ---
FINAL REPORT CLINICAL HISTORY: DFU, OM, access PAD, previous smoker, HTN, HLD, DM, HLD, bilateral rest pain, bilateral claudication, foot ulcers on left foot, previous hallux amputation of right great toe, 2nd digit of right foot has oozing ulcer, toe pressure not obtained on RLE. Recent hospitalization with right knee infection and orthopedic surgery x 3 weeks ago. FINDINGS: ANKLE-BRACHIAL PRESSURE INDICES Pressure indices are as follows: RIGHT LOWER EXTREMITY: Ankle-brachial pressure index: 0.62 Comments: Mild to moderate disease LEFT LOWER EXTREMITY: Ankle-brachial pressure index: 0.70 Comments: Mild to moderate disease IMPRESSION: Mild to moderate obstructive peripheral vascular disease of the bilateral lower extremities Reviewed, Interpreted and Dictated by Myra Meredith MD Transcribed by Justyna Pabon Authenticated and [facility]
--- NOTE | 2024-10-22 06:00 | CA_ITS ---
APPROVED REPORT EXAM: Comprehensive 2D, Doppler, and color-flow Echocardiogram Emergency Communications Operator: Jeanine Molina RT(R) Ht: 5 ft 2 in Wt: 156lbs BSA: 1.72 BP: 143/79 mmHg Indications: CHF, SOB, HTN, DM, hyperlipidemia, PAD, edema lower extremitiesright > left, recent orthopedic surger to right knee secondary to infection 3 weeks ago, MAC per CT 2D Dimensions LVEF (Vance's) 32.30 % F: 54 - 74 LV Volume 124.50 mL F: 46 - 106 LV Volume Index 72.4 mL/m2 F: 29 - 61 LA Volume 59.00 mL LA Volume Index 34.30 mL/m2 (M/F) 16-34 EF AP4 41.40 % EF AP2 34.6 % EF BP 32.3 % GL Strain -8.0 % M-Mode Dimensions RVDd 3.87 cm (0.9-2.6) LA Diam 4.39 cm (1.9-4.0) LVDd 5.31 cm (3.5-5.7) LVDs 4.46 cm (3.5-5.7) IVSd 0.93 cm (0.6-1.1) PWd 0.93 cm (0.6-1.1) EF (Teich) 33.40% FS 16.00% EDV (Teich) 135.90 mL ESV (Teich) 90.50 mL LV Diastology E Decel Time 150 (160-240 msec) E/A Ratio 1.2 Aortic Valve AoV Peak Alex. 162.0 (50-130 cm/s) AO Peak GR. 10.50 mmHg AO Mean GR. 5.20 (<5 mmHg) AO VTI 32.0 (18-25 cm) Mitral Valve MV E Max Alex. 104.0 (40-130 cm/s) MV A Velocity 85.0 (40-130 cm/s) E/A Ratio 1.23 MV PHT 44.0 ms Tricuspid Valve TR P. Velocity 295.00 cm/s RAP Estimate 10.00 mmHg RVSP 44.90 mmHg Left Ventricle The left ventricle is normal size. The left ventricular systolic function is mildly to moderately reduced. There is increased overall thickness. There is mild to moderate reduction in global LV systolic function. Grade 2 diastolic dysfunction is present. LVEF is 40%. Right Ventricle Right ventricle is moderately dilated. Right ventricle is mildly hypokinetic. Atria Left atrium is moderately dilated. Right atrium is mildly dilated. There is no Doppler evidence of interatrial shunt. Aortic Valve The aortic valve is mildly thickened. There is no aortic valvular stenosis. Trace aortic regurgitation. Mitral Valve The mitral valve leaflets are mildly thickened. No evidence of mitral valve stenosis. Mild to moderate mitral regurgitation. Tricuspid Valve Tricuspid valve is grossly normal in structure and function. Moderate tricuspid regurgitation. RVSP is 35-40 mmHg. Pulmonic Valve The pulmonary valve is normal in structure. Trace pulmonic regurgitation. Great Vessels The aortic root is normal in size. IVC is normal in size and collapses >50% with inspiration. Pericardium There is no pericardial effusion. Other Information Study Quality: Fair Conclusion Mild to moderate reduction in LV systolic function (LVEF 40%). Grade 2 diastolic dysfunction. Moderate RV dilation with mild reduction in RV function. Biatrial dilation. Mild to moderate MR. Moderate TR. RVSP 35-40 mmHg. Electronically signed by : Stefani Levine MD 10/22/2024 12:13:56
[2024-10-22 06:08] LABS: Basophils % 0.5 % (0.1-2.0); Eosinophils # 0.1 Kmm3 (0.0-0.4); Eosinophils % 1.9 % (0.1-12.0); Hematocrit 27.8 % (37.0-47.0); Lymphocytes # 2.1 K/mm3 (0.7-4.5); Lymphocytes % 27.8 % (10-50); Mean Corpuscular HGB Conc 29.9 g/dL (31.8-35.4); Mean Corpuscular Hemoglobin 27.9 pg (27.0-31.2); Mean Corpuscular Volume 93.3 fl (81-99); Mean Platelet Volume 8.9 fl (7.4-10.4); Monocytes # 0.6 K/mm3 (0.1-1.0); Monocytes % 7.4 % (1.7-9.3); Neutrophils # 4.6 K/mm3 (1.8-7.8); Neutrophils % 61.6 % (37.0-80.0); Nucleated Red Blood Cells # 0 10^3/uL; Nucleated Red Blood Cells % 0 %; Platelet Count 340 K/mm3 (142-424); Red Blood Count 2.98 M/mm3 (4.20-5.40); Red Cell Distribution Width 22.2 % (11.5-17.5); Red Cell Distribution Width-SD 74.3 fL; White Blood Count 7.4 K/mm3 (4.8-10.8)
[2024-10-22 06:17] LABS: Hemoglobin 8.3 g/dL (12.2-16.2)
[2024-10-22 06:23] LABS: Albumin Level 3.7 g/dl (3.5-5.0); Chloride 103 mmol/L (98-107)
[2024-10-22 06:24] LABS: Potassium 4.5 mmoL/L (3.5-5.1); Sodium 136 mmol/L (136-145)
[2024-10-22] MEDS: LEVOTHYROXINE 100MCG (0.1MG) TAB 200 MCG PO (06:25)
[2024-10-22 06:26] LABS: Blood Urea Nitrogen 18 mg/dl (7-17); Creatinine Clearance Estimated 69 mL/min (50-200); Estimated Glomerular Filt Rate 73 ml/min (>60); GFR (African American) 88 ML/MIN (>60)
[2024-10-22 06:27] LABS: Alanine Aminotransferase 16 U/L (12-78); Alkaline Phosphatase 146 U/L (38-126); Anion Gap 12.5 mEq/L (5-15); Aspartate Amino Transferase 26 U/L (14-36); Bilirubin,Total 0.3 mg/dl (0.2-1.3); Calcium 9.3 mg/dl (8.4-10.2); Carbon Dioxide 25 mmol/L (22.0-30.0); Globulin 3.7 g/dL (1.3-3.2); Glucose 68 mg/dl (74-100); Total Protein,Serum 7.4 g/dl (6.3-8.2)
[2024-10-22] MEDS: PHA TO NURSING INSTRUCTION 1 EACH NOTAPPLIC (06:29)
[2024-10-22 06:45] LABS: Vancomycin,Trough 22.2 ug/mL (5.0-10.0)
--- NOTE | 2024-10-22 07:06 | CT_ITS ---
FINAL REPORT TECHNIQUE: Thin section axial images were obtained through the right foot without contrast. Reconstruction images were obtained from the axial data. Exam was performed using dose reduction technique. CLINICAL HISTORY: R 2nd toe DFU poss. OM COMPARISON: 10/19/2022 FINDINGS: There are stable, extensive postoperative changes. Hardware is intact. There is a subacute or chronic fracture at the head of the fifth metatarsal, unchanged from prior exam. 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 Although exam is limited by motion, there may be bone destruction of the distal aspect of the second middle phalanx with sclerosis of the second distal phalanx. Osteomyelitis not excluded. There is soft tissue edema of the second toe. A metallic foreign body is noted within the plantar soft tissues of the forefoot at the level of the third metatarsal head measuring 10 mm, unchanged. IMPRESSION: Extensive postoperative changes of the right foot. Findings concerning for osteomyelitis of the middle and distal phalanx of the second toe which may have a chronic component given sclerosis.. Subacute or chronic fracture of the fifth metatarsal head. Soft tissue edema most consistent with cellulitis. Reviewed, Interpreted and Dictated by Myra Meredith MD Transcribed by Dacia Anglin Authenticated and [facility]
--- NOTE | 2024-10-22 07:10 | P.CONS_ITS ---
Documented by User: Valencia Dudley Hamletcassandra, LAKEISHA 10/22/24 09:30 History of Present Illness *Admission Date: 10/19/24 *History of present illness: This is a 64-year-old female with a past medical history of PAD, DM 2, HFrEF, Chronic pain, hyperlipidemia, hypertension, CAD who presents to the emergency department today with complaints of right lower extremity pain and increased shortness of breath. In short, this is a 64-year-old female with recent hospitalization to [facility] for septic knee. She was also found at that time to have MRSA bacteremia. She underwent I&D with orthopedic surgery and followed by infectious disease. She was on linezolid for extended period of time (10/10). She was also diagnosed with heart failure with reduced EF at that time and hypoxic respiratory failure secondary to pulmonary edema. 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 She has been residing at a rehab facility for the last month and discharged from there several days ago. Today she reports increased pain and swelling to her right knee and right foot with increased shortness of breath and bilateral lower extremity edema. Emergency Department workup notable for hemoglobin hematocrit of 7.6 and 25n (chronic anemia), ESR of 89, lactic of 2.2, proBNP greater than 30,000. Chest imaging notable for mild CHF. On exam patient does have mild conversational dyspnea and lower extremity edema. Right lower extremity with mild mottling noted to the sole of foot. Patient reports ulceration of her second toe is mildly worse than normal. Foot imaging notable for moderate soft tissue swelling throughout the forefoot as well as second toe erosions suggestive of osteomyelitis Given the above-mentioned findings she will be admitted to hospital service 10/22/24: Podiatry consulted for 64-year-old female patient was admitted over the weekend for cellulitis, has bilateral foot DFU's with right second toe ulceration suggestive for osteomyelitis. Plan to make patient n.p.o. for podiatry consult this morning. Will need to obtain stat ABIs as well as right foot CT scan without contrast stat to rule out or confirm osteomyelitis, possible second toe amputation. [facility] Disclaimer: The information contained in this section may have been updated after the patient was seen, as this information can be updated by other users. Medical History Closed left ankle fracture Elevated left ventricular end-diastolic pressure (LVEDP) Edema of both lower extremities Syncope Abnormal result of cardiovascular function study Typical angina Arthritis GERD (gastroesophageal reflux disease) Depression COPD (chronic obstructive pulmonary disease) Arrhythmia Hyperlipidemia Surgical History History of cancer surgery H/O total hysterectomy Hx of colonoscopy Family History Other Cancer Coronary artery disease Diabetes Heart attack Hypertension Stroke Social History (Updated 10/19/24 @ 22:27 by Gabriela Gloria RN) Smoking Status: Former smoker tobacco type: cigarettes alcohol intake: never substance use type: denies use current occupational status: unemployed and disabled Travel in the last 8 weeks?: None household members: spouse housing: house Have you lived/traveled outside US in past 30 days?: No Contact w/someone who lives/traveled outside US past 30 days?: No Exposure to someone with infectious disease in past 14 days?: No Do you have a fever (greater than 100.4 F or 38 C)?: No Have you tested positive for COVID-19?: No Exposed to someone with COVID-19 in past 14 days?: No Do you have a sore throat?: No Do you have a cough?: No Do you have any weakness?: No Do you have any diarrhea?: No Are you experiencing any unusual bleeding?: No Do you have any muscle aches/pain?: No Do you have any abdominal pain?: No Are you experiencing loss of taste or smell?: No Meds Home Medications and Allergies Home Medications ?Medication ?Instructions ?Recorded ?Confirmed ?Type amitriptyline 50 mg tablet 50 mg PO HS 04/14/24 10/19/24 History atorvastatin 80 mg tablet 40 mg PO HS 04/14/24 10/19/24 History bupropion HCl 150 mg tablet,12 hr 150 mg PO BID 04/14/24 10/19/24 History sustained-release pramipexole 0.5 mg tablet 0.5 mg PO DAILY 04/14/24 10/19/24 History gabapentin 800 mg tablet 800 mg PO Q6H 04/15/24 10/19/24 History hydrocodone 10 mg-acetaminophen 1 tab PO Q6H 04/15/24 10/19/24 History 325 mg tablet spironolactone 25 mg tablet 25 mg PO DAILY 04/15/24 10/19/24 History blood-glucose meter #1 ea 04/17/24 10/19/24 Rx insulin lispro 100 unit/mL 20 unit SQ BID 04/24/24 10/19/24 History subcutaneous pen sennosides 8.6 mg tablet (Senna 17.2 mg (2 x 8.6 mg) PO DAILY 30 04/24/24 10/19/24 Rx Laxative) days #60 tabs polyethylene glycol 3350 17 17 g PO DAILY 05/21/24 10/19/24 History gram/dose oral powder (Miralax) magnesium oxide 400 mg (241.3 mg 400 mg PO DAILY #90 tabs 08/22/24 10/19/24 Rx magnesium) tablet citalopram 20 mg tablet 20 mg PO DAILY #90 tabs 08/30/24 10/19/24 Rx allopurinol 100 mg tablet 100 mg PO DAILY #30 tabs 10/09/24 10/19/24 Rx carvedilol 25 mg tablet 12.5 mg (1/2 x 25 mg) PO BID #60 10/09/24 10/19/24 Rx tabs clopidogrel 75 mg tablet 75 mg PO DAILY #30 tabs 10/09/24 10/19/24 Rx lisinopril 40 mg tablet 40 mg PO HS #30 tabs 10/09/24 10/19/24 Rx pantoprazole 40 mg tablet,delayed 40 mg PO HS #90 tabs 10/09/24 10/19/24 Rx release insulin glargine 100 unit/mL (3 100 unit SQ BID #15 mL 10/15/24 10/19/24 Rx mL) subcutaneous pen (Lantus Solostar U-100 Insulin) furosemide 40 mg tablet 40 mg PO DAILY #90 tabs 10/16/24 10/19/24 Rx aspirin 81 mg tablet,delayed 81 mg PO DAILY 10/20/24 10/19/24 History release (Darshana Low Dose Aspirin) ferrous sulfate 325 mg (65 mg 325 mg PO DAILY 10/20/24 10/20/24 History iron) tablet (Feosol) levothyroxine 200 mcg tablet 200 mcg PO DAILY 10/20/24 10/20/24 History lubiprostone 8 mcg capsule 8 mcg PO BID 10/20/24 10/20/24 History ondansetron 4 mg disintegrating 4 mg PO Q8HP PRN nausea and 10/20/24 10/20/24 History tablet vomiting semaglutide 1 mg/dose (4 mg/3 mL) 1 mg SQ WEEKLY 10/20/24 10/20/24 History subcutaneous pen injector (Ozempic) New Prescriptions to Start Prescriptions: Allergies Allergy/AdvReac Type Severity Reaction Status Date / Time canagliflozin (From [facility]) Allergy Severe kidney Verified 08/27/24 12:32 issues Exam (Inpt) Vital signs and Labs for Last 24 Hours: Temp Pulse Resp BP Pulse Ox O2 Del Method O2 Flow Rate 98.0 F 74 16 107/65 L 100 Room Air 1 10/22/24 04:00 10/22/24 06:16 10/22/24 04:00 10/22/24 04:00 10/22/24 06:16 10/22/24 06:16 10/21/24 18:49 Laboratory Results - last 24 hr 10/21/24 06:00: POC Glucose 50 L 10/21/24 06:08: POC Glucose 189 H 10/21/24 06:22: POC Glucose 137 H 10/21/24 06:29: ESR 118 H, Sodium 137, Potassium 3.9, Chloride 106, Carbon Dioxide 27, Anion Gap 7.9, BUN 19 H, Creatinine 0.80, Estimated Creat Clear 70, Estimated GFR 73, Est GFR ( Amer) 88, Glucose 111 H, Calcium 9.2, Magnesium 1.7, Total Bilirubin 0.2, AST 24, ALT 14, Alkaline Phosphatase 128 H, C-Reactive Protein 12.8 H D, Total Protein 6.4, Albumin 3.2 L D, Globulin 3.2, A lbumin/Globulin Ratio 1.0 L 10/21/24 08:40: POC Glucose 83 10/21/24 11:35: POC Glucose 347 H* 10/21/24 16:08: POC Glucose 143 H 10/21/24 20:41: POC Glucose 119 H 10/22/24 01:31: VBG pH 7.50 H, VBG pCO2 34.4 L, VBG pO2 47.5 H, VBG HCO3 26.2, V BG Total CO2 27.2 H, VBG O2 Saturation 85.1 H, VBG Base Excess 3.0 H, VBG Lactic Acid 1.7 10/22/24 01:37: Sodium 135 L, Potassium 3.9, Chloride 102, Carbon Dioxide 27, Anion Gap 9.9, BUN 19 H, Creatinine 0.90, Estimated Creat Clear 70, Estimated GFR 63, Est GFR ( Amer) 77, Glucose 116 H, Calcium 8.8, Total Bilirubin 0.2, AST 23, ALT 12, Alkaline Phosphatase 123, Total Protein 6.6, Albumin 3.2 L, Globulin 3.4 H, Albumin/Globulin Ratio 0.9 L 10/22/24 05:57: WBC 7.4, RBC 2.98 L, Hgb 8.3 L D, Hct 27.8 L, MCV 93.3, MCH 27.9, MCHC 29.9 L, RDW 22.2 H, Plt Count 340, MPV 8.9, Neut % (Auto) 61.6, Lymph % (Auto) 27.8, [place] % (Auto) 7.4, Eos % (Auto) 1.9, Baso % (Auto) 0.5, Neut # (Auto) 4.6, Lymph # (Auto) 2.1, [place] # (Auto) 0.6, Eos # (Auto) 0.1, Baso # (Auto) 0.0, Sodium 136, Potassium 4.5, Chloride 103, Carbon Dioxide 25, Anion Gap 12.5, BUN 18 H, Creatinine 0.80, Estimated Creat Clear 69, Estimated GFR 73, Est GFR ( Amer) 88, Glucose 68 L D, Calcium 9.3, Total Bilirubin 0.3, AST 26, ALT 16 D, Alkaline Phosphatase 146 H, Total Protein 7.4, Albumin 3.7 D, G lobulin 3.7 H, Albumin/Globulin Ratio 1.0 L, Vancomycin Trough 22.2 H I & O for Labs for Last 24 Hours: Intake & Output 10/19/24 10/20/24 10/21/24 10/22/24 23:59 23:59 23:59 23:59 Intake Total 2019 720 / 720 60 / 60 Output Total 3450 / 3450 2250 / 2250 0 / 0 Balance -1430 / -1430 -1530 / -1530 60 / 60 Weight 173 lb 4.8 oz 176 lb 9.6 oz 168 lb 11.2 oz 165 lb 11.2 oz Microbiology Reports for the Last 24 Hours: Microbiology 10/19/24 20:35 Blood Blood Culture - Preliminary NO GROWTH AFTER 48 HOURS Constitutional: Present no acute distress and cooperative Head: Present normocephalic Eye: Present as per HPI Neck: Present trachea midline Respiratory: Present normal respiratory effort Cardiac: Absent posterior tibial pulses present or pedal pulses present Comment:: -Decreased ELLIE's , order for Stat ELLIE's this morning -Right foot cellulitis, b/l foot DFU's -Hx of PVD Comments:: deferred Rectal (female): Present deferred (female): Present deferred Extremities: Present edema Comment:: S/P Right hallux amp, with right foot hardware, R 2nd toe ulceration suggestive for OM, B/L DFU to lateral foot, base of 5th met's. Skin: Present erythema, lesions and wounds Comment:: B/L foot DFU, R 2nd toe ulceration Neuro: Present awake Ankle: bilateral: swelling and bilateral: decreased ROM Feet/Toes: right: amputation (s/p R hallux amputation), right: swelling and right: tenderness and bilateral: bunion, bilateral: hammer toe, bilateral: nail abnormalities and bilateral: wound (B/l DFU's, R 2nd ulcer, distal tip erosion) Inspection: Present foot deformity deformity: Present hallux valgus, hammer toes and other (Right hallux amputaion ) and nail disorder Pulses: L dorsalis pedis pulse: diminished (present but decreased; order ELLIE's 10/22/24 ), R dorsalis pedis pulse: diminished, L posterior tibial pulse: diminished and R posterior tibial pulse: diminished CFT: dim: CFT Results Labs 10/22/24 05:57 10/22/24 05:57 Labs: Abnormal lab results 10/21/24 10/21/24 10/21/24 Range/Units 06:00 06:08 06:22 RBC (4.20-5.40) M/mm3 Hgb (12.2-16.2) g/dL Hct (37.0-47.0) % MCHC (31.8-35.4) g/dL RDW (11.5-17.5) % ESR (0-30) mm/hr VBG pH (7.31-7.41) mmol/L VBG pCO2 (35-51) mmol/L VBG pO2 (28-40) mmol/L VBG Total CO2 (23-27) mmol/L VBG O2 Saturation (50-70) % VBG Base Excess (-2.4-2.3) mmol/L Sodium (136-145) mmol/L BUN (7-17) mg/dl Glucose (74-100) mg/dl POC Glucose 50 L 189 H 137 H (70-110) Alkaline Phosphatase (38-126) U/L C-Reactive Protein (0-4) mg/L Albumin (3.5-5.0) g/dl Globulin (1.3-3.2) g/dL Albumin/Globulin Ratio (1.1-1.8) Vancomycin Trough (5.0-10.0) ug/mL 10/21/24 10/21/24 10/21/24 Range/Units 06:29 11:35 16:08 RBC (4.20-5.40) M/mm3 Hgb (12.2-16.2) g/dL Hct (37.0-47.0) % MCHC (31.8-35.4) g/dL RDW (11.5-17.5) % ESR 118 H (0-30) mm/hr VBG pH (7.31-7.41) mmol/L VBG pCO2 (35-51) mmol/L VBG pO2 (28-40) mmol/L VBG Total CO2 (23-27) mmol/L VBG O2 Saturation (50-70) % VBG Base Excess (-2.4-2.3) mmol/L Sodium (136-145) mmol/L BUN 19 H (7-17) mg/dl Glucose 111 H (74-100) mg/dl POC Glucose 347 H* 143 H (70-110) Alkaline Phosphatase 128 H (38-126) U/L C-Reactive Protein 12.8 H D (0-4) mg/L Albumin 3.2 L D (3.5-5.0) g/dl Globulin (1.3-3.2) g/dL Albumin/Globulin Ratio 1.0 L (1.1-1.8) Vancomycin Trough (5.0-10.0) ug/mL 10/21/24 10/22/24 10/22/24 Range/Units 20:41 01:31 01:37 RBC (4.20-5.40) M/mm3 Hgb (12.2-16.2) g/dL Hct (37.0-47.0) % MCHC (31.8-35.4) g/dL RDW (11.5-17.5) % ESR (0-30) mm/hr VBG pH 7.50 H (7.31-7.41) mmol/L VBG pCO2 34.4 L (35-51) mmol/L VBG pO2 47.5 H (28-40) mmol/L VBG Total CO2 27.2 H (23-27) mmol/L VBG O2 Saturation 85.1 H (50-70) % VBG Base Excess 3.0 H (-2.4-2.3) mmol/L Sodium 135 L (136-145) mmol/L BUN 19 H (7-17) mg/dl Glucose 116 H (74-100) mg/dl POC Glucose 119 H (70-110) Alkaline Phosphatase (38-126) U/L C-Reactive Protein (0-4) mg/L Albumin 3.2 L (3.5-5.0) g/dl Globulin 3.4 H (1.3-3.2) g/dL Albumin/Globulin Ratio 0.9 L (1.1-1.8) Vancomycin Trough (5.0-10.0) ug/mL 10/22/24 Range/Units 05:57 RBC 2.98 L (4.20-5.40) M/mm3 Hgb 8.3 L D (12.2-16.2) g/dL Hct 27.8 L (37.0-47.0) % MCHC 29.9 L (31.8-35.4) g/dL RDW 22.2 H (11.5-17.5) % ESR (0-30) mm/hr VBG pH (7.31-7.41) mmol/L VBG pCO2 (35-51) mmol/L VBG pO2 (28-40) mmol/L VBG Total CO2 (23-27) mmol/L VBG O2 Saturation (50-70) % VBG Base Excess (-2.4-2.3) mmol/L Sodium (136-145) mmol/L BUN 18 H (7-17) mg/dl Glucose 68 L D (74-100) mg/dl POC Glucose (70-110) Alkaline Phosphatase 146 H (38-126) U/L C-Reactive Protein (0-4) mg/L Albumin (3.5-5.0) g/dl Globulin 3.7 H (1.3-3.2) g/dL Albumin/Globulin Ratio 1.0 L (1.1-1.8) Vancomycin Trough 22.2 H (5.0-10.0) ug/mL H & H 10/19/24 10/20/24 10/21/24 Range/Units 19:40 06:45 06:29 Hgb 7.6 L 6.4 L* 7.5 L D (12.2-16.2) g/dL Hct 25.7 L 22.5 L 24.9 L (37.0-47.0) % 10/22/24 Range/Units 05:57 Hgb 8.3 L D (12.2-16.2) g/dL Hct 27.8 L (37.0-47.0) % All other labs normal. Assessment and Plan *Assessment and plan (1) Osteoarthritis of toe: Status: Acute Category: Medical Code(s): M19.079 - Primary osteoarthritis, unspecified ankle and foot (2) Cellulitis of foot: Status: Acute Category: Medical Code(s): L03.119 - Cellulitis of unspecified part of limb (3) T2DM (type 2 diabetes mellitus): Status: Acute Qualifiers: Diabetes mellitus complication detail: with neuropathic arthropathy D iabetes mellitus complication status: with diabetic arthropathy Diabetes mellitus chcf insulin use: with termite inspector use Qualified Code(s): E11.610 - Type 2 diabetes mellitus with diabetic neuropathic arthropathy; Z79.4 - termite exterminator helper (current) use of insulin Category: Medical Code(s): E11.9 - Type 2 diabetes mellitus without complications (4) Edema of both lower extremities: Status: Acute Category: Medical Code(s): R60.0 - Localized edema (5) Foot ulcer, left: Status: Acute Qualifiers: Non-pressure ulcer stage: with muscle involvement without evidence of necrosis Qualified Code(s): L97.525 - Non-pressure chronic ulcer of other part of left foot with muscle involvement without evidence of necrosis Category: Medical Code(s): L97.529 - Non-pressure chronic ulcer of other part of left foot with unspecified severity (6) Peripheral arterial disease: Status: Acute Category: Medical Code(s): I73.9 - Peripheral vascular disease, unspecified (7) CAD (coronary atherosclerotic disease): Status: Acute Qualifiers: Associated angina: with other forms of angina Coronary Disease- Associated Artery/Lesion type: [place] artery [place] vs. transplanted heart: n ative heart Qualified Code(s): I25.118 - Atherosclerotic heart disease of [place] coronary artery with other forms of angina pectoris Category: Medical Code(s): I25.10 - Atherosclerotic heart disease of [place] coronary artery without angina pectoris (8) Tobacco dependence syndrome: Status: Acute Category: Medical Code(s): F17.200 - Nicotine dependence, unspecified, uncomplicated (9) Charcot foot due to diabetes mellitus: Status: Chronic Category: Medical Code(s): E11.610 - Type 2 diabetes mellitus with diabetic neuropathic arthropathy (10) Neuropathy: Status: Acute Category: Medical Code(s): G62.9 - Polyneuropathy, unspecified (11) Presence of retained hardware: Status: Acute Category: Medical Code(s): Z96.9 - Presence of functional implant, unspecified (12) Ulcer of second toe of right foot: Status: Acute Qualifiers: Non-pressure ulcer stage: with necrosis of bone Qualified Code(s): L 97.514 - Non-pressure chronic ulcer of other part of right foot with necrosis of bone Category: Medical Code(s): L97.519 - Non-pressure chronic ulcer of other part of right foot with unspecified severity (13) Decreased pedal pulses: Status: Acute Category: Medical Code(s): R09.89 - Other specified symptoms and signs involving the circulatory and respiratory systems (14) 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: Status: Acute Qualifiers: Fracture alignment: nondisplaced Fracture type: closed Qualified Code(s): S92.355K - Nondisplaced fracture of fifth metatarsal bone, left foot, subsequent encounter for fracture with nonunion Category: Medical Code(s): S92.352K - Displaced fracture of fifth metatarsal bone, left foot, subsequent encounter for fracture with nonunion Plan 10/22/24: Reviewed right foot 3V/WB x-rays exam 10-19-24; COMPARISON: CR XR FOOT WT BEARING RT 3V 10/21/2022 8:35 AM FINDINGS: Bones/joints: Postsurgical changes compatible with amputation of the right great toe combined with arthrodesis screws involving the 1st, 2nd, and 4th rays with fixation to the calcaneus and talus. Soft tissues: Moderate soft tissue swelling throughout the forefoot suggests infectious or inflammatory process. Moderate soft tissue swelling of the 2nd toe with osseous erosions suggest osteomyelitis. IMPRESSION: 1. Postsurgical changes compatible with amputation of the right great toe combined with arthrodesis screws involving the 1st, 2nd, and 4th rays with fixation to the calcaneus and talus. 2. Moderate soft tissue swelling throughout the forefoot suggests infectious or inflammatory process. 3. Moderate soft tissue swelling of the 2nd toe with osseous erosions suggest osteomyelitis. labs: 10/22/24, WBC 7.4 ESR 101, glucose 68, CRP 8.6, from 10/21/2024 was 12.8, protein 7.4 B/L foot DFU's/ Cellulitis, Right 2nd toe ulcer - Patient n.p.o. this morning for podiatry consult - Stat ABIs - Stat CT right foot without contrast, right second toe ulceration suggestive of osteomyelitis -Wound cultures obtained from Left lateral foot (base of 5th met) and Right 2nd toe -All orders per suggestions per Dr. Finnegan Documented by User: Daniella Finnegan DPM 10/22/24 09:27 PFSH [facility] Medical History Closed left ankle fracture Elevated left ventricular end-diastolic pressure (LVEDP) Edema of both lower extremities Syncope Abnormal result of cardiovascular function study Typical angina Arthritis GERD (gastroesophageal reflux disease) Depression COPD (chronic obstructive pulmonary disease) Arrhythmia Hyperlipidemia Surgical History History of cancer surgery H/O total hysterectomy Hx of colonoscopy Family History Other Cancer Coronary artery disease Diabetes Heart attack Hypertension Stroke Social History (Updated 10/19/24 @ 22:27 by Gabriela Gloria RN) Smoking Status: Former smoker tobacco type: cigarettes alcohol intake: never substance use type: denies use current occupational status: unemployed and disabled Travel in the last 8 weeks?: None household members: spouse housing: house Have you lived/traveled outside US in past 30 days?: No Contact w/someone who lives/traveled outside US past 30 days?: No Exposure to someone with infectious disease in past 14 days?: No Do you have a fever (greater than 100.4 F or 38 C)?: No Have you tested positive for COVID-19?: No Exposed to someone with COVID-19 in past 14 days?: No Do you have a sore throat?: No Do you have a cough?: No Do you have any weakness?: No Do you have any diarrhea?: No Are you experiencing any unusual bleeding?: No Do you have any muscle aches/pain?: No Do you have any abdominal pain?: No Are you experiencing loss of taste or smell?: No Meds Home Medications and Allergies Home Medications ?Medication ?Instructions ?Recorded ?Confirmed ?Type amitriptyline 50 mg tablet 50 mg PO HS 04/14/24 10/19/24 History atorvastatin 80 mg tablet 40 mg PO HS 04/14/24 10/19/24 History bupropion HCl 150 mg tablet,12 hr 150 mg PO BID 04/14/24 10/19/24 History sustained-release pramipexole 0.5 mg tablet 0.5 mg PO DAILY 04/14/24 10/19/24 History gabapentin 800 mg tablet 800 mg PO Q6H 04/15/24 10/19/24 History hydrocodone 10 mg-acetaminophen 1 tab PO Q6H 04/15/24 10/19/24 History 325 mg tablet spironolactone 25 mg tablet 25 mg PO DAILY 04/15/24 10/19/24 History blood-glucose meter #1 ea 04/17/24 10/19/24 Rx insulin lispro 100 unit/mL 20 unit SQ BID 04/24/24 10/19/24 History subcutaneous pen sennosides 8.6 mg tablet (Senna 17.2 mg (2 x 8.6 mg) PO DAILY 30 04/24/24 10/19/24 Rx Laxative) days #60 tabs polyethylene glycol 3350 17 17 g PO DAILY 05/21/24 10/19/24 History gram/dose oral powder (Miralax) magnesium oxide 400 mg (241.3 mg 400 mg PO DAILY #90 tabs 08/22/24 10/19/24 Rx magnesium) tablet citalopram 20 mg tablet 20 mg PO DAILY #90 tabs 08/30/24 10/19/24 Rx allopurinol 100 mg tablet 100 mg PO DAILY #30 tabs 10/09/24 10/19/24 Rx carvedilol 25 mg tablet 12.5 mg (1/2 x 25 mg) PO BID #60 10/09/24 10/19/24 Rx tabs clopidogrel 75 mg tablet 75 mg PO DAILY #30 tabs 10/09/24 10/19/24 Rx lisinopril 40 mg tablet 40 mg PO HS #30 tabs 10/09/24 10/19/24 Rx pantoprazole 40 mg tablet,delayed 40 mg PO HS #90 tabs 10/09/24 10/19/24 Rx release insulin glargine 100 unit/mL (3 100 unit SQ BID #15 mL 10/15/24 10/19/24 Rx mL) subcutaneous pen (Lantus Solostar U-100 Insulin) furosemide 40 mg tablet 40 mg PO DAILY #90 tabs 10/16/24 10/19/24 Rx aspirin 81 mg tablet,delayed 81 mg PO DAILY 10/20/24 10/19/24 History release (Darshana Low Dose Aspirin) ferrous sulfate 325 mg (65 mg 325 mg PO DAILY 10/20/24 10/20/24 History iron) tablet (Feosol) levothyroxine 200 mcg tablet 200 mcg PO DAILY 10/20/24 10/20/24 History lubiprostone 8 mcg capsule 8 mcg PO BID 10/20/24 10/20/24 History ondansetron 4 mg disintegrating 4 mg PO Q8HP PRN nausea and 10/20/24 10/20/24 History tablet vomiting semaglutide 1 mg/dose (4 mg/3 mL) 1 mg SQ WEEKLY 10/20/24 10/20/24 History subcutaneous pen injector (Ozempic) New Prescriptions to Start Prescriptions: Allergies Allergy/AdvReac Type Severity Reaction Status Date / Time canagliflozin (From [facility]) Allergy Severe kidney Verified 08/27/24 12:32 issues Exam (Inpt) Comment:: B/L foot DFU, R 2nd toe ulceration. Skin cleansed. Sharp excisonal full thickness debridement of wounds (DFU x3) with 15' blade. Post: Left 5th metatarsal DFU full thickness thru skin, subq to deep fascia. Wound: 70% granular, 30% yellow eschar with fibrotic slough noted and debrided, 1.5 x 1.5 x 0.2cm. Right 5th metatarsal DFU full thickness thru skin, subq. Wound: 50% granular, 50% yellow eschar with fibrotic slough noted and debrided, 1.5 x 1.0 x 0.3cm. Right 2nd toe DFU full thickness thru skin, subq, deep fascia to capsule over bone. Wound: 70% brown, 30% black eschar with fibrotic slough noted and debridement to deep fascia, 1.8 x 1.4 x 0.2cm. Of note: right knee has anterior abrasion/wound, wound along medial incision, hx knee fracture with septic joint (recent [facility] admission). Right knee not debrided or measured/treated by Podiatry. Results Labs 10/22/24 05:57 10/22/24 05:57 Assessment and Plan *Assessment and plan (1) Osteoarthritis of toe: Status: Acute Category: Medical Code(s): M19.079 - Primary osteoarthritis, unspecified ankle and foot (2) Cellulitis of foot: Status: Acute Category: Medical Code(s): L03.119 - Cellulitis of unspecified part of limb (3) T2DM (type 2 diabetes mellitus): Status: Acute Qualifiers: Diabetes mellitus complication detail: with neuropathic arthropathy D iabetes mellitus complication status: with diabetic arthropathy Diabetes mellitus termite inspector insulin use: with chcf use Qualified Code(s): E11.610 - Type 2 diabetes mellitus with diabetic neuropathic arthropathy; Z79.4 - half-way (current) use of insulin Category: Medical Code(s): E11.9 - Type 2 diabetes mellitus without complications (4) Edema of both lower extremities: Status: Acute Category: Medical Code(s): R60.0 - Localized edema (5) Foot ulcer, left: Status: Acute Qualifiers: Non-pressure ulcer stage: with muscle involvement without evidence of necrosis Qualified Code(s): L97.525 - Non-pressure chronic ulcer of other part of left foot with muscle involvement without evidence of necrosis Category: Medical Code(s): L97.529 - Non-pressure chronic ulcer of other part of left foot with unspecified severity (6) Peripheral arterial disease: Status: Acute Category: Medical Code(s): I73.9 - Peripheral vascular disease, unspecified (7) CAD (coronary atherosclerotic disease): Status: Acute Qualifiers: Associated angina: with other forms of angina Coronary Disease- Associated Artery/Lesion type: [place] artery [place] vs. transplanted heart: n ative heart Qualified Code(s): I25.118 - Atherosclerotic heart disease of [place] coronary artery with other forms of angina pectoris Category: Medical Code(s): I25.10 - Atherosclerotic heart disease of [place] coronary artery without angina pectoris (8) Tobacco dependence syndrome: Status: Acute Category: Medical Code(s): F17.200 - Nicotine dependence, unspecified, uncomplicated (9) Charcot foot due to diabetes mellitus: Status: Chronic Category: Medical Code(s): E11.610 - Type 2 diabetes mellitus with diabetic neuropathic arthropathy (10) Neuropathy: Status: Acute Category: Medical Code(s): G62.9 - Polyneuropathy, unspecified (11) Presence of retained hardware: Status: Acute Category: Medical Code(s): Z96.9 - Presence of functional implant, unspecified (12) Ulcer of second toe of right foot: Status: Acute Qualifiers: Non-pressure ulcer stage: with necrosis of bone Qualified Code(s): L 97.514 - Non-pressure chronic ulcer of other part of right foot with necrosis of bone Category: Medical Code(s): L97.519 - Non-pressure chronic ulcer of other part of right foot with unspecified severity (13) Decreased pedal pulses: Status: Acute Category: Medical Code(s): R09.89 - Other specified symptoms and signs involving the circulatory and respiratory systems (14) 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: Status: Acute Qualifiers: Fracture alignment: nondisplaced Fracture type: closed Qualified Code(s): S92.355K - Nondisplaced fracture of fifth metatarsal bone, left foot, subsequent encounter for fracture with nonunion Category: Medical Code(s): S92.352K - Displaced fracture of fifth metatarsal bone, left foot, subsequent encounter for fracture with nonunion Plan Imaging: Reviewed right foot 3V/WB x-rays exam 10-19-24; COMPARISON: CR XR FOOT WT BEARING RT 3V 10/21/2022 8:35 AM FINDINGS: Bones/joints: Postsurgical changes compatible with amputation of the right great toe combined with arthrodesis screws involving the 1st, 2nd, and 4th rays with fixation to the calcaneus and talus. Soft tissues: Moderate soft tissue swelling throughout the forefoot suggests infectious or inflammatory process. Moderate soft tissue swelling of the 2nd toe with osseous erosions suggest osteomyelitis. IMPRESSION: 1. Postsurgical changes compatible with amputation of the right great toe combined with arthrodesis screws involving the 1st, 2nd, and 4th rays with fixation to the calcaneus and talus. 2. Moderate soft tissue swelling throughout the forefoot suggests infectious or inflammatory process. 3. Moderate soft tissue swelling of the 2nd toe with osseous erosions suggest osteomyelitis. 10/22/24, B/L ABIs: Right PT 0.62, DP 0.62, TBI 0.62 and Left PT 0.6, DP 0.78, TBI 0.51. Impression: Mild to moderate obstructive peripheral vascular disease of the bilateral lower extremities. Reviewed, Interpreted and Dictated by Myra Meredith MD. Transcribed by Justyna Pabon. Labs: 10/22/24: wbc 7.4, esr 101, crp 8.6, cr 0.8, gfr 69, glucose 68, Ha1c 5.3%, albumin 3.7, protein 7.4 Specimens: 10/22/24: Right 2nd toe WCx: pending 10/22/24: Left 5th metatarsal WCx: pending B/L foot DFU's/ Cellulitis, Right 2nd toe ulcer -Patient n.p.o. this morning for podiatry consult -Stat ABIs (multiple arterial wounds, chronic non healing DFU > 6 months) -Stat CT right foot without contrast, right second toe ulceration suggestive of osteomyelitis -Stat CT left foot wo contrast to evaluate for 5th met fx non-union with DFU > 6 months. Hx of scrapping bone -pt does not recall details, I am unsure if related to fx or bone infection. -Wound cultures obtained from Left lateral foot (base of 5th met) and Right 2nd toe -All orders per suggestions per Dr. Finnegan. *Patient seen and evaluated with Podiatry [facility]. -X-rays, ELLIE, labs were independently reviewed by myself. -2v b/l foot x-rays. Right 2nd toe cortical erosion, suspicious changes for osteomyelitis. Possible foreign body (needle) in 2nd interspace btwn 2-3rd met head. Charcot hardware intact to 1st, 2nd and 4th metatarsals extending into the talus and calcaneus. 2v left foot show hx 5th met fracture non-union. B/L foot OA. -Multiple Podiatry issues including deformity and infection: chronic DFU, PVD/PAD, former smoker, R charcot recon with retained hardware. Discussed she may need a higher level of care due to the extensive issues. Or f/u with previous foot team ([facility]). 64 DM female who was admitted for pulm edema and b/l LE DFU. She reports seeing several surgeons in the past including Ortho Dr Duque and Podiatry Dr Thanh Mejía. She was unsure of other providers name. Hx: left foot bone scrapping within the last few months, right knee fracture and sepsis (tx [facility]), right hallux amp years ago , right foot Charcot recon with retained foot beams. Concern over possible b/l foot DFU with infection. Hx stents, unsure which leg. Unable to palpable pedal pulses. Patient is not a good historian. pasted away several yrs ago (BKA, DM, MS). Lives alone, sometimes grandson stays over . Unable to drive. New images were discussed with the patient. ABIs abnormal (Right PT 0.62, DP 0.62, TBI 0.62 and Left PT 0.6, DP 0.78, TBI 0.51), consent cardiology for possible run-off. Discussed low healing potential with high risk for BKA vs AKA (hx right knee fx with septic joint). We discussed conservative versus surgical treatment options. We discussed conservative care including continued oral vs IV antibiotics and local wound care versus surgical irrrigation and debridement of ulcers, open bone biopsy, right 2nd toe amputation. Patient understands that they could have wound healing complications including delayed healing and infection. We discussed that if the wound does not heal, it is possible that they may need further debridement. Patient understands if infection spreads into the bone, it may warrant proximal amputation and could result in further loss of digits, loss of partial foot or loss of leg. We discussed the risks and benefits in great detail. Discussd due to the right foot fixation, if she has infection it would likely result in BKA. Other surgical risks include: prolonged pain and swelling, further infection requiring oral or IV antibiotics, delay in healing of soft tissue or bone, nerve or blood vessel damage, failure of implant, need for implant removal, CRPS/RSD, DVT/PE, anesthesia complications, and even . All questions answered. Patient verbalized understanding. Verbal and written consent obtained. -Continue IV abx -Discussed with hospitalist: defer mgmt of IV abx, right knee wound to hosp team -Consult cardiology: Bilateral lower extremity PAD, concern over healing potential and high risk for BKA/AKA, chronic nonhealing DFU >6 months. Unclear stent history. Needs b/l LE run-off evaluation. -Rec PT evaluation for possible SNF (lives alone, does not drive, previously at [facility]) -NPO now -Consented for: right 2nd toe amputation, bilateral fifth metatarsal bone biopsy, wound debridement
[2024-10-22 07:48] LABS: C-Reactive Protein 8.6 mg/L (0-4)
[2024-10-22 07:59] LABS: Erythrocyte Sedimentation Rate 101 mm/hr (0-30)
--- NOTE | 2024-10-22 07:59 | CT_ITS ---
FINAL REPORT TECHNIQUE: Thin section axial images were obtained through the left foot without contrast. Reconstruction images were obtained from the axial data. Exam was performed using dose reduction technique. CLINICAL HISTORY: Left 5th met DFU, OM FINDINGS: There is a fracture at the base of the fifth metatarsal with irregular margins at the base of the fifth metatarsal concerning for pathologic fracture related to osteomyelitis. There is periosteal reaction at the proximal shaft of the fifth metatarsal. Remaining osseous structures are without acute abnormality. There is multijoint degenerative disease. Hallux valgus deformity is noted. There is soft tissue edema, worse along the lateral foot. Soft tissue defect is seen adjacent to the fifth metatarsal. There is no loculated fluid collection or subcutaneous air. IMPRESSION: Fracture of the base of the fifth metatarsal, likely pathologic, related to osteomyelitis. Cellulitis without convincing loculated fluid collection. Reviewed, Interpreted and Dictated by Myra eMredith MD Transcribed by Dacia Anglin Authenticated and [facility]
--- NOTE | 2024-10-22 08:01 | EXP.PHA.CONS ---
Pharmacy Consult Date: 10/22/24 Time: 08:01 Referring provider: DR. OJEDA Reason for Consult:: VANCOMYCIN LEVEL Allergies Allergy/AdvReac Type Severity Reaction Status Date / Time canagliflozin (From Invokana) Allergy Severe kidney Verified 08/27/24 12:32 issues Home Medications ?Medication ?Instructions ?Recorded ?Confirmed ?Type amitriptyline 50 mg tablet 50 mg PO HS 04/14/24 10/19/24 History atorvastatin 80 mg tablet 40 mg PO HS 04/14/24 10/19/24 History bupropion HCl 150 mg tablet,12 hr 150 mg PO BID 04/14/24 10/19/24 History sustained-release pramipexole 0.5 mg tablet 0.5 mg PO DAILY 04/14/24 10/19/24 History gabapentin 800 mg tablet 800 mg PO Q6H 04/15/24 10/19/24 History hydrocodone 10 mg-acetaminophen 1 tab PO Q6H 04/15/24 10/19/24 History 325 mg tablet spironolactone 25 mg tablet 25 mg PO DAILY 04/15/24 10/19/24 History blood-glucose meter #1 ea 04/17/24 10/19/24 Rx insulin lispro 100 unit/mL 20 unit SQ BID 04/24/24 10/19/24 History subcutaneous pen sennosides 8.6 mg tablet (Senna 17.2 mg (2 x 8.6 mg) PO DAILY 30 04/24/24 10/19/24 Rx Laxative) days #60 tabs polyethylene glycol 3350 17 17 g PO DAILY 05/21/24 10/19/24 History gram/dose oral powder (Miralax) magnesium oxide 400 mg (241.3 mg 400 mg PO DAILY #90 tabs 08/22/24 10/19/24 Rx magnesium) tablet citalopram 20 mg tablet 20 mg PO DAILY #90 tabs 08/30/24 10/19/24 Rx allopurinol 100 mg tablet 100 mg PO DAILY #30 tabs 10/09/24 10/19/24 Rx carvedilol 25 mg tablet 12.5 mg (1/2 x 25 mg) PO BID #60 10/09/24 10/19/24 Rx tabs clopidogrel 75 mg tablet 75 mg PO DAILY #30 tabs 10/09/24 10/19/24 Rx lisinopril 40 mg tablet 40 mg PO HS #30 tabs 10/09/24 10/19/24 Rx pantoprazole 40 mg tablet,delayed 40 mg PO HS #90 tabs 10/09/24 10/19/24 Rx release insulin glargine 100 unit/mL (3 100 unit SQ BID #15 mL 10/15/24 10/19/24 Rx mL) subcutaneous pen (Lantus Solostar U-100 Insulin) furosemide 40 mg tablet 40 mg PO DAILY #90 tabs 10/16/24 10/19/24 Rx aspirin 81 mg tablet,delayed 81 mg PO DAILY 10/20/24 10/19/24 History release (Darshana Low Dose Aspirin) ferrous sulfate 325 mg (65 mg 325 mg PO DAILY 10/20/24 10/20/24 History iron) tablet (Feosol) levothyroxine 200 mcg tablet 200 mcg PO DAILY 10/20/24 10/20/24 History lubiprostone 8 mcg capsule 8 mcg PO BID 10/20/24 10/20/24 History ondansetron 4 mg disintegrating 4 mg PO Q8HP PRN nausea and 10/20/24 10/20/24 History tablet vomiting semaglutide 1 mg/dose (4 mg/3 mL) 1 mg SQ WEEKLY 10/20/24 10/20/24 History subcutaneous pen injector (Ozempic) New Prescriptions to Start Prescriptions: Height: 1.57 m Weight: 75.16 kg Laboratory Results:: Laboratory Results - last 24 hr 10/21/24 06:00: POC Glucose 50 L 10/21/24 06:08: POC Glucose 189 H 10/21/24 06:22: POC Glucose 137 H 10/21/24 06:29: Sodium 137, Potassium 3.9, Chloride 106, Carbon Dioxide 27, Anion Gap 7.9, BUN 19 H, Creatinine 0.80, Estimated Creat Clear 70, Estimated GFR 73, Est GFR ( Amer) 88, Glucose 111 H, Calcium 9.2, Magnesium 1.7, Total Bilirubin 0.2, AST 24, ALT 14, Alkaline Phosphatase 128 H, C-Reactive Protein 12.8 H D, Total Protein 6.4, Albumin 3.2 L D, Globulin 3.2, Albumin/Globulin Ratio 1.0 L 10/21/24 08:40: POC Glucose 83 10/21/24 11:35: POC Glucose 347 H* 10/21/24 16:08: POC Glucose 143 H 10/21/24 20:41: POC Glucose 119 H 10/22/24 01:31: VBG pH 7.50 H, VBG pCO2 34.4 L, VBG pO2 47.5 H, VBG HCO3 26.2, VBG Total CO2 27.2 H, VBG O2 Saturation 85.1 H, VBG Base Excess 3.0 H, VBG Lactic Acid 1.7 10/22/24 01:37: Sodium 135 L, Potassium 3.9, Chloride 102, Carbon Dioxide 27, Anion Gap 9.9, BUN 19 H, Creatinine 0.90, Estimated Creat Clear 70, Estimated GFR 63, Est GFR ( Amer) 77, Glucose 116 H, Calcium 8.8, Total Bilirubin 0.2, AST 23, ALT 12, Alkaline Phosphatase 123, Total Protein 6.6, Albumin 3.2 L, Globulin 3.4 H, Albumin/Globulin Ratio 0.9 L 10/22/24 05:57: WBC 7.4, RBC 2.98 L, Hgb 8.3 L D, Hct 27.8 L, MCV 93.3, MCH 27.9, MCHC 29.9 L, RDW 22.2 H, Plt Count 340, MPV 8.9, Neut % (Auto) 61.6, Lymph % (Auto) 27.8, [place] % (Auto) 7.4, Eos % (Auto) 1.9, Baso % (Auto) 0.5, Neut # (Auto) 4.6, Lymph # (Auto) 2.1, [place] # (Auto) 0.6, Eos # (Auto) 0.1, Baso # (Auto) 0.0, ESR 101 H, Sodium 136, Potassium 4.5, Chloride 103, Carbon Dioxide 25, Anion Gap 12.5, BUN 18 H, Creatinine 0.80, Estimated Creat Clear 69, Estimated GFR 73, Est GFR ( Amer) 88, Glucose 68 L D, Calcium 9.3, Total Bilirubin 0.3, AST 26, ALT 16 D, Alkaline Phosphatase 146 H, C-Reactive Protein 8.6 H D, Total Protein 7.4, Albumin 3.7 D, Globulin 3.7 H, Albumin/Globulin Ratio 1.0 L, Vancomycin Trough 22.2 H Medical History: Medical History (Updated 10/22/24 @ 07:20 by Valencia Mares APRN) Closed left ankle fracture Elevated left ventricular end-diastolic pressure (LVEDP) Edema of both lower extremities Syncope Abnormal result of cardiovascular function study Typical angina Arthritis GERD (gastroesophageal reflux disease) Depression COPD (chronic obstructive pulmonary disease) Arrhythmia Hyperlipidemia Assessment and Plan Assessment and plan all Dx Assessment and Plan for all problems:: VANCOMYCIN TROUGH LEVEL WAS 22.2 MCG/ML OVERNIGHT. DOSE WAS ADJUSTED TO VANCOMYCIN 1250 MG Q24H.
[2024-10-22 08:24] LABS: Magnesium 1.6 mg/dl (1.6-2.3); Phosphorous 4.7 mg/dl (2.5-4.5)
[2024-10-22 08:49] LABS: Hemoglobin A1C 5.3 % (4.0-6.0)
[2024-10-22] MEDS: CITALOPRAM 20MG TABLET 20 MG PO (09:12)
[2024-10-22] MEDS: CARVEDILOL 12.5MG TABLET 12.5 MG PO (09:12)
[2024-10-22] MEDS: buPROPion HCl SR 150MG TAB 150 MG PO (09:12)
[2024-10-22] MEDS: ALLOPURINOL 100MG TABLET 100 MG PO (09:12)
[2024-10-22] MEDS: CLOPIDOGREL 75MG TAB 75 MG PO (09:12)
[2024-10-22] MEDS: PRAMIPEXOLE 1MG TAB 0.5 MG PO (09:13)
[2024-10-22] MEDS: FUROSEMIDE 100MG/10ML VIAL 80 MG IV ×2 (09:13→16:29)
[2024-10-22] MEDS: SPIRONOLACTONE 25MG TABLET 25 MG PO (09:13)
[2024-10-22] MEDS: SENNA 8.6MG TABLET 17.2 MG PO (09:13)
[2024-10-22] MEDS: HEPARIN SODIUM 5,000 UNIT/ML VIAL 5000 UNIT SUBCUT ×3 (09:13→20:55)
[2024-10-22] MEDS: GABAPENTIN 800MG TABLET 800 MG PO (09:20)
[2024-10-22] MEDS: VANCOMYCIN HCL 1,250 MG in 0.9 % SODIUM CHLORIDE 250 ML 125 MG IV (11:44)
--- NOTE | 2024-10-22 11:51 | SW/DCPLANNER ---
Addendum entered by [facility] 10/26/24 09:21: Lety stated that patient has been approved and can admit SNF level of care today. Addendum entered by [facility] 10/25/24 12:40: Lety w/ [facility] confirmed a precert will be started today. Patient is agreeable to this plan. Addendum entered by [facility] 10/25/24 09:05: Patient voiced that she is now agreeable to SNF level of care at time of discharge. Patient recently discharged from [facility] and prefers to return to their facility. Patient stated that if [facility] is not able to accept she would prefer [facility] or [facility]. Patient information will be faxed to all three facilities this AM. Discharge date is unknown at this time. I will continue to follow up. Addendum entered by [facility] 10/24/24 10:22: PT/OT evaluated patient this AM and recommended SNF level of care. Patient stated that she recently discharged from [facility] after a lengthy rehab stay. Patient is not interested in returning to rehab and prefers to return home and resume home health services. I did have a lengthy conversation w/ patient regarding bilateral limited weight bearing status and the need for therapy. Patient stated that her son lives [address] and her grandson is w/ her most of the time and she plans to return home. Patient stated that she has all needed DME at home including a wheel chair and BSC. CM will continue to follow up w/ patient. Original Note: Patient is currently established w/ [facility]. CM will update [facility] w/ [facility] and updated patient information will be faxed at time of discharge. Discharge date is unknown at this time. CM will continue to follow up.
[2024-10-22 11:55] LABS: POC Glucose,Bedside 57 (70-110)
[2024-10-22 11:59] LABS: POC Glucose,Bedside 79 (70-110)
[2024-10-22 11:59] LABS: POC Glucose,Bedside 130 (70-110)
[2024-10-22 11:59] LABS: POC Glucose,Bedside 156 (70-110)
--- NOTE | 2024-10-22 12:41 | PC.NURSE ---
Home Medications Micheline Hernandez amitriptyline 50 mg tablet 50 mg PO HS 04/14/24 [History Confirmed 10/19/24] atorvastatin 80 mg tablet 40 mg PO HS 04/14/24 [History Confirmed 10/19/24] bupropion HCl 150 mg tablet,12 hr sustained-release 150 mg PO BID 04/14/24 [History Confirmed 10/19/24] pramipexole 0.5 mg tablet 0.5 mg PO DAILY 04/14/24 [History Confirmed 10/19/24] gabapentin 800 mg tablet 800 mg PO Q6H 04/15/24 [History Confirmed 10/19/24] hydrocodone 10 mg-acetaminophen 325 mg tablet 1 tab PO Q6H 04/15/24 [History Confirmed 10/19/24] spironolactone 25 mg tablet 25 mg PO DAILY 04/15/24 [History Confirmed 10/19/24] blood-glucose meter #1 ea 04/17/24 [Rx Confirmed 10/19/24] insulin lispro 100 unit/mL subcutaneous pen 20 unit SQ BID 04/24/24 [History Confirmed 10/19/24] sennosides 8.6 mg tablet (Senna Laxative) 17.2 mg (2 x 8.6 mg) PO DAILY 30 days #60 tabs 04/24/24 [Rx Confirmed 10/19/24] polyethylene glycol 3350 17 gram/dose oral powder (Miralax) 17 g PO DAILY 05/21/24 [History Confirmed 10/19/24] magnesium oxide 400 mg (241.3 mg magnesium) tablet 400 mg PO DAILY #90 tabs 08/22/24 [Rx Confirmed 10/19/24] citalopram 20 mg tablet 20 mg PO DAILY #90 tabs 08/30/24 [Rx Confirmed 10/19/24] allopurinol 100 mg tablet 100 mg PO DAILY #30 tabs 10/09/24 [Rx Confirmed 10/19/24] carvedilol 25 mg tablet 12.5 mg (1/2 x 25 mg) PO BID #60 tabs 10/09/24 [Rx Confirmed 10/19/24] clopidogrel 75 mg tablet 75 mg PO DAILY #30 tabs 10/09/24 [Rx Confirmed 10/19/24] lisinopril 40 mg tablet 40 mg PO HS #30 tabs 10/09/24 [Rx Confirmed 10/19/24] pantoprazole 40 mg tablet,delayed release 40 mg PO HS #90 tabs 10/09/24 [Rx Confirmed 10/19/24] insulin glargine 100 unit/mL (3 mL) subcutaneous pen (Lantus Solostar U-100 Insulin) 100 unit SQ BID #15 mL 10/15/24 [Rx Confirmed 10/19/24] furosemide 40 mg tablet 40 mg PO DAILY #90 tabs 10/16/24 [Rx Confirmed 10/19/24] aspirin 81 mg tablet,delayed release (Darshana Low Dose Aspirin) 81 mg PO DAILY 10/20/24 [History Confirmed 10/19/24] ferrous sulfate 325 mg (65 mg iron) tablet (Feosol) 325 mg PO DAILY 10/20/24 [History Confirmed 10/20/24] levothyroxine 200 mcg tablet 200 mcg PO DAILY 10/20/24 [History Confirmed 10/20/24] lubiprostone 8 mcg capsule 8 mcg PO BID 10/20/24 [History Confirmed 10/20/24] ondansetron 4 mg disintegrating tablet 4 mg PO Q8HP PRN nausea and vomiting 10/20/24 [History Confirmed 10/20/24] semaglutide 1 mg/dose (4 mg/3 mL) subcutaneous pen injector (Ozempic) 1 mg SQ WEEKLY 10/20/24 [History Confirmed 10/20/24] Active Medications Acetaminophen (Acetaminophen 325mg Tab) 650 mg PO Q4HP PRN PRN Reason: Fever or Mild Pain (1-3) Stop: 11/18/24 22:01 Hydrocodone Bitart/Acetaminophen (Apap/Hydrocodone 325mg/7.5mg Tab) 1 tab PO Q6HP PRN PRN Reason: Moderate to Severe Pain (4-10) Stop: 11/20/24 07:28 Last Admin: 10/21/24 20:53 Dose: 1 tab Albuterol/Ipratropium (Ipratropium/Albuterol 3 Ml Neb) 3 ml IH Q4RT [facility] Stop: 11/19/24 04:29 Last Admin: 10/22/24 06:15 Dose: 3 ml Allopurinol (Allopurinol 100mg Tablet) 100 mg PO DAILY [facility] Stop: 11/20/24 08:59 Last Admin: 10/22/24 09:12 Dose: 100 mg Amitriptyline HCl (Amitriptyline 50mg Tablet) 50 mg PO HS MITUL Stop: 11/19/24 20:59 Last Admin: 10/21/24 20:42 Dose: 50 mg Atorvastatin Calcium (Atorvastatin 40mg Tablet) 40 mg PO HS MITUL Stop: 11/19/24 20:59 Last Admin: 10/21/24 20:42 Dose: 40 mg Bupropion HCl (Bupropion Hcl Sr 150mg Tab) 150 mg PO BID MITUL Stop: 11/19/24 20:59 Last Admin: 10/22/24 09:12 Dose: 150 mg Carvedilol (Carvedilol 12.5mg Tablet) 12.5 mg PO BID MITUL Stop: 11/20/24 08:59 Last Admin: 10/22/24 09:12 Dose: 12.5 mg Citalopram Hydrobromide (Citalopram 20mg Tablet) 20 mg PO DAILY MITUL Stop: 11/20/24 08:59 Last Admin: 10/22/24 09:12 Dose: 20 mg Clopidogrel Bisulfate (Clopidogrel 75mg Tab) 75 mg PO DAILY MITUL Stop: 11/20/24 08:59 Last Admin: 10/22/24 09:12 Dose: 75 mg Dextrose (Dextrose 50% 50ml Syringe (Crash Cart)) 50 ml IVP NEEDED PRN PRN Reason: hypoglycemia Stop: 11/20/24 06:01 Last Admin: 10/22/24 11:50 Dose: 50 ml Diazepam (Diazepam 5mg Tablet) 5 mg PO ONCE PRN PRN Reason: Anxiety Stop: 10/23/24 00:11 Fentanyl Citrate (Fentanyl 100mcg/2ml Vial) 50 mcg IV Q3MINP PRN PRN Reason: Sedation Stop: 10/23/24 00:37 Fentanyl Citrate (Fentanyl 100mcg/2ml Vial) 25 mcg IV Q3MINP PRN PRN Reason: Sedation Stop: 10/23/24 00:37 Flumazenil (Flumazenil 0.1mg/Ml 5ml Vial) 0.2 mg IV NEEDED PRN PRN Reason: Sedation Stop: 10/23/24 00:37 Furosemide (Furosemide 100mg/10ml Vial) 80 mg IV BIDL MITUL Stop: 11/19/24 08:59 Last Admin: 10/22/24 09:13 Dose: 80 mg Gabapentin (Gabapentin 800mg Tablet) 800 mg PO Q6HP PRN PRN Reason: Moderate Pain (4-6) Stop: 11/20/24 07:26 Last Admin: 10/22/24 09:20 Dose: 800 mg Heparin Sodium (Porcine) (Heparin Sodium 5,000 Unit/Ml Vial) 5,000 unit SUBCUT TID MITUL Stop: 11/19/24 08:59 Last Admin: 10/22/24 09:13 Dose: 5,000 unit Heparin Sodium (Porcine) (Heparin 1,000 Units/Ml 10ml Vial ([employer])) 5,000 unit IV NEEDED PRN PRN Reason: Emergency Box Security Test Engineer Stop: 10/22/24 16:37 Heparin Sodium/Sodium Chloride (Heparin 1,000 Units/500ml Ns ([employer])) 3,000 unit IV ONCE ONE Stop: 10/22/24 12:38 Hydralazine HCl (Hydralazine 20mg/Ml Vial) 20 mg IV ONCE PRN PRN Reason: sbp>160 Stop: 10/22/24 16:37 Vancomycin HCl 1,250 mg/ (Sodium Chloride) 250 mls @ 125 mls/hr IV Q24H [facility] Stop: 10/30/24 10:59 Last Admin: 10/22/24 11:44 Dose: 125 mls/hr Adenosine 180 mg/ Sodium (Chloride) 90 mls @ 405.572 mls/hr IV ONCE PRN PRN Reason: fractional flow reserve Stop: 10/22/24 16:37 Adenosine 90 mg/ Sodium (Chloride) 90 mls @ 811.145 mls/hr IV ONCE PRN PRN Reason: fractional flow reserve Stop: 10/22/24 16:37 Sodium Chloride (Sod Chloride 0.9% 500ml Bag) 1,000 mls @ 25 mls/hr IV .Q25H [facility] Stop: 10/23/24 12:37 Insulin Glargine (Insulin Glargine 100 Units/Ml 3ml Flexpen) 40 unit SUBCUT HS [facility] Stop: 11/21/24 20:59 Insulin Human Lispro (Humalog 100 Units/Ml 10ml Vial (Ssi)) 0 unit SUBCUT ACHS MITUL; Protocol Stop: 11/19/24 05:59 Last Admin: 10/22/24 11:45 Dose: Not Given Labetalol HCl (Labetalol 20mg/4ml Syringe) 20 mg IV ONCE PRN PRN Reason: sbp>160 Stop: 10/22/24 16:37 Levothyroxine Sodium (Levothyroxine 100mcg (0.1mg) Tab) 200 mcg PO DAILYDM [facility] Stop: 11/20/24 08:59 Last Admin: 10/22/24 06:25 Dose: 200 mcg Lidocaine HCl (Lidocaine 1% 10ml Mdv) 10 ml IJ ONCE ONE Stop: 10/22/24 12:38 Lidocaine HCl (Lidocaine 1% 5ml Pf Vial) 10 ml IJ ONCE ONE Stop: 10/22/24 12:38 Lisinopril (Lisinopril 20mg Tablet) 40 mg PO HS [facility] Stop: 11/20/24 20:59 Last Admin: 10/21/24 20:53 Dose: 40 mg Lorazepam (Lorazepam 2mg/Ml Vial) 1 mg IV ONCE PRN PRN Reason: Anxiety Stop: 10/23/24 00:11 Midazolam HCl (Midazolam 2mg/2ml Vial) 1 mg IV Q3MINP PRN PRN Reason: Sedation Stop: 10/23/24 00:37 Midazolam HCl (Midazolam Hcl 1mg/Ml 5ml Vial) 1 mg IV Q3MINP PRN PRN Reason: Sedation Stop: 10/23/24 00:37 Morphine Sulfate (Morphine 4mg/Ml Syringe) 4 mg IV ONCE ONE Stop: 10/22/24 12:38 Naloxone HCl (Naloxone 0.4mg/Ml Vial) 0.4 mg IV Q3MINP PRN PRN Reason: Decreased Respirations Stop: 11/21/24 01:16 Last Admin: 10/22/24 01:35 Dose: 0.4 mg Nitroglycerin (Nitroglycerin 800mcg/8ml Syr ([employer])) 800 mcg IA NEEDED PRN PRN Reason: Emergency Box Security Test Engineer Stop: 10/22/24 16:37 Ondansetron HCl (Ondansetron 4mg/2ml Vial) 4 mg IV Q8HP PRN PRN Reason: Nausea Stop: 11/18/24 22:01 Ondansetron HCl (Ondansetron 4mg/2ml Vial) 4 mg IV NEEDED PRN PRN Reason: Nausea Stop: 10/23/24 00:37 Pramipexole Dihydrochloride (Pramipexole 1mg Tab) 0.5 mg PO DAILY [facility] Stop: 11/20/24 08:59 Last Admin: 10/22/24 09:13 Dose: 0.5 mg Promethazine HCl (Promethazine Hcl 25mg/Ml 1ml Vial) 25 mg IV NEEDED PRN PRN Reason: Nausea And Vomiting Stop: 10/23/24 00:37 Protamine Sulfate (Protamine Sulfate 50mg/5ml Vial ([employer])) 50 mg IV ONCE PRN PRN Reason: act>200 Stop: 10/22/24 16:37 Sennosides (Senna 8.6mg Tablet) 17.2 mg PO DAILY [facility] Stop: 11/20/24 08:59 Last Admin: 10/22/24 09:13 Dose: 17.2 mg Sodium Chloride (Sodium Chloride 0.9% 10ml Flush Syringe) 10 ml IV NEEDED PRN PRN Reason: Maintain IV Site Stop: 11/19/24 08:14 Sodium Chloride (Sodium Chloride 0.9% 10ml Flush Syringe) 10 ml IV NEEDED PRN PRN Reason: Maintain IV Site Stop: 11/21/24 12:36 Spironolactone (Spironolactone 25mg Tablet) 25 mg PO DAILY [facility] Stop: 11/20/24 08:59 Last Admin: 10/22/24 09:13 Dose: 25 mg Verapamil HCl (Verapamil 2.5mg/Ml 2ml Vial) 2.5 mg IV ONCE ONE Stop: 10/22/24 12:38
--- NOTE | 2024-10-22 12:43 | IR_ITS ---
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: Óscar Kirk, RT (R) PROCEDURES Right radial arterial access Catheter placement in the left external iliac artery Left external iliac artery antegrade angiogram with unilateral runoff to the left foot Catheter placed in the distal abdominal aorta Distal abdominal aortography Catheter placement in the right common iliac artery Right common iliac artery antegrade angiogram with unilateral runoff to the right foot Bare-metal balloon mounted stent deployment to the right common iliac artery Catheter placement in the right popliteal artery Right popliteal artery antegrade selective angiogram Intravascular lithotripsy to the right popliteal artery Percutaneous balloon angioplasty to the distal SFA and right popliteal artery INDICATION Lea claudication class V-, Abnormal ELLIE, Preoperative evaluation for amputation, Planned revascularization to improve perioperative healing following foot and ankle surgery, Known peripheral artery disease, Extensive calcification of the distal right SFA and right popliteal artery Informed consent was obtained prior to the procedure. COMPLICATIONS NONE Estimated Blood Loss: LESS THAN 10 ML TECHNIQUE 1% lidocaine used to anesthetize the right anterior aspect of the right wrist. The right radial artery was accessed via the central technique and an arterial cocktail using 5000U heparin, 2.5 mg verapamil, 1mg lidocaine and 800mcg nitroglycerin into the right radial sheath intra-arterially. A PV multi curve catheter was then placed into the left external iliac artery via the right radial sheath and iliofemoral angiography was performed with unilateral runoff to the foot. This procedure was repeated with the right external iliac artery. Catheter was pulled back to the distal abdominal aorta where distal abdominal aortography was performed. The catheter was then advanced into the right external iliac artery and a wire was left in place for exchange of a short 6 Salvadorean sheath for a 119 cm hydrophilic sheath. Therapeutic heparin was administered given a therapeutic ACT this sheath was placed into the distal abdominal aorta and an 8 mm x 27 mm EV 3 bare-metal balloon mounted stent was deployed at 16 danielle reducing the severe calcified stenosis involving the right common iliac artery to 0%. At the beginning of the procedure the patient did not have a palpable pulse in the right femoral artery therefore a right radial access was performed. Following this additional wire was placed distally and a 5 mm x 80 mm shockwave intravascular lithotripsy balloon was advanced into the proximal popliteal artery deployed at 5 danielle with 80 pulsations delivered. Following this an additional 5 mm x 40 mm balloon was advanced into the popliteal artery and deployed at 14 danielle on several occasions moving back in a retrograde manner from the popliteal artery up to the superficial femoral artery. Following this percutaneous revascularization repeat angiography demonstrated wide patency of the popliteal artery with significant improvement into the lower extremity. At the end of the procedure the apparatus was removed the sheath was removed and hemostasis was achieved using TR banding patient was transferred to the postop porting area in stable condition ANGIOGRAPHIC RESULTS Distal abdominal aorta is calcified but widely patent Left common internal and external iliac arteries are widely patent. The left common femoral artery has a 30% calcified stenosis. The left profunda femoris artery is widely patent. The left superficial femoral artery has proximal and mid vessel 40% calcified stenoses with distal 50% calcified stenosis. The left popliteal artery is widely patent. There is three-vessel runoff below the knee on the left side Right common iliac artery has an ostial proximal calcified eccentric 80 to 90% stenosis with an additional eccentric 30% stenosis. The right internal iliac artery is patent the right external iliac artery is widely patent the right common femoral artery has eccentric calcified 30% stenosis. The right profunda femoris artery is patent. The right superficial femoral artery has an ostial 80% calcified stenosis and then is widely patent with a calcified dissection in the distal segment which is recanalized only creating 10% stenosis. There is an an additional calcified 90% stenosis in Diogo's canal with an additional 80% concentric stenosis in the proximal popliteal artery. The AT trunk has a calcified 80% stenosis. The right anterior tibialis artery is subtotally occluded in the midportion and stops at mid calf. There are 2 large vessels the peroneal artery and the posterior tibialis artery which are widely patent into the ankle. The peroneal artery then crosses and collateralizes the distal anterior tibialis artery which supplies the dorsalis pedis IMPRESSION Peripheral artery disease as described above Severe stenosis in the right ostial SFA which is best managed medically as it involves the bifurcation of the profunda femoris Severe distal SFA disease and right popliteal artery disease as described above with successful intravascular lithotripsy followed by balloon angioplasty Persistent severe disease in the right PT trunk with subtotally occluded right anterior tibialis artery which reconstitutes via the peroneal artery distally and supplies a dorsalis pedis Patent two-vessel runoff below the knee on the right PLAN 1. Aspirin plus Xarelto 2.5 twice daily 2. The right lower extremity can be operated on at ankle and foot surgery's discretion. There has been significant increases in inflow following stenting of the right common iliac artery and angioplasty of the right SFA and right popliteal artery 3. LDL less than 55 achieved with high intensity statin 4. Physical therapy 5. Rehabilitation Electronically signed by : Armando Felipe MD 10/22/2024 16:54:57
--- NOTE | 2024-10-22 13:39 | PC.NURSE ---
pt transported to medical lab technologist
[2024-10-22] MEDS: 0.9 % SODIUM CHLORIDE 500 ML 25 ML IV (13:49)
[2024-10-22] MEDS: LIDOCAINE 1% 10ML MDV 10 ML IJ (13:49)
[2024-10-22] MEDS: HEPARIN 1,000 UNITS/500ML NS (CATH LAB) 3000 UNIT IV (13:49)
[2024-10-22] MEDS: MIDAZOLAM HCL 1MG/ML 5ML VIAL 1 MG IV (13:49)
[2024-10-22] MEDS: diphenhydrAMINE 50MG/ML VIAL 50 MG IV (13:49)
[2024-10-22] MEDS: FENTANYL 100MCG/2ML VIAL 50 MCG IV (13:50)
--- NOTE | 2024-10-22 14:03 | P.CONCA_ITS ---
History of Present Illness History of Present Illness Consult date: 10/22/24 Requesting physician: Daniella Finnegan Consult reason: pre-op evaluation Chief complaint: SOB, foot edema, foot wound History of present illness: This is a 64-year-old female who presented to the emergency department with shortness of breath and foot pain/edema and a foot wound. The patient has a past medical history of CAD, PAD, diabetes, HFrEF, hypertension and hyperlipidemia. The patient states that she was recently hospitalized at the [facility] for a septic knee and was also found to have MRSA bacteremia. The patient had an I&D surgery on her foot at this time as well. She has been on long-term linezolid. The patient states that her bilateral feet started to swell and this got significantly worse over the last few days prior to admission. She states that she was also very short of breath and this was worse with exertion. She states that she was unable to lie flat as well. She denied a cough. She denies any chest pain or pressure. She denies any fever, chills, nausea, vomiting, diarrhea, PND or orthopnea. Upon arrival to the hospital the patient was found to be anemic with a hemoglobin of 7.6. Her BNP was greater than 30,000. Foot imaging does show osteomyelitis of the second toe on the right foot. There are concerns for osteomyelitis in the left foot as well and she is scheduled to undergo toe amputation on the right and biopsy of her right and left rays of her feet. Her ELLIE is abnormal showing mild to moderate PAD bilaterally. [facility] Disclaimer: The information contained in this section may have been updated after the patient was seen, as this information can be updated by other users. Medical History (Updated 10/22/24 @ 14:18 by Yanet Osborne APRN) Tobacco dependence syndrome Hypertension Peripheral arterial disease CAD (coronary atherosclerotic disease) T2DM (type 2 diabetes mellitus) Decreased pedal pulses Ulcer of second toe of right foot Pulmonary edema Abnormal ankle brachial index (ELLIE) Acute on chronic systolic heart failure Closed left ankle fracture Elevated left ventricular end-diastolic pressure (LVEDP) Edema of both lower extremities Syncope Abnormal result of cardiovascular function study Typical angina Arthritis GERD (gastroesophageal reflux disease) Depression COPD (chronic obstructive pulmonary disease) Arrhythmia Hyperlipidemia Surgical History History of cancer surgery H/O total hysterectomy Hx of colonoscopy Family History Other Cancer Coronary artery disease Diabetes Heart attack Hypertension Stroke Social History (Updated 10/19/24 @ 22:27 by Gabriela Gloria RN) Smoking Status: Former smoker tobacco type: cigarettes alcohol intake: never substance use type: denies use current occupational status: unemployed and disabled Travel in the last 8 weeks?: None household members: spouse housing: house Have you lived/traveled outside US in past 30 days?: No Contact w/someone who lives/traveled outside US past 30 days?: No Exposure to someone with infectious disease in past 14 days?: No Do you have a fever (greater than 100.4 F or 38 C)?: No Have you tested positive for COVID-19?: No Exposed to someone with COVID-19 in past 14 days?: No Do you have a sore throat?: No Do you have a cough?: No Do you have any weakness?: No Do you have any diarrhea?: No Are you experiencing any unusual bleeding?: No Do you have any muscle aches/pain?: No Do you have any abdominal pain?: No Are you experiencing loss of taste or smell?: No Review of Systems Review of Systems Review of systems:: pertinent systems reviewed and negative unless documented below Constitutional Constitutional: Reports system reviewed and no additional complaints, except as documented, Reports fatigue and Reports lethargy Eyes Eyes: Reports system reviewed and no additional complaints, except as documented ENT Ears, Nose, Mouth, and Throat: Reports system reviewed and no additional complaints, except as documented *Cardiovascular Cardiovascular: Reports system reviewed and no additional complaints, except as documented, Denies chest pain, Reports dyspnea, Reports dyspnea on exertion, Reports leg edema, Reports orthopnea and Reports pedal edema *Respiratory Respiratory: Reports system reviewed and no additional complaints, except as documented, Reports dyspnea and Reports dyspnea on exertion *Gastrointestinal Gastrointestinal: Reports system reviewed and no additional complaints, except as documented *Genitourinary Genitourinary: Reports system reviewed and no additional complaints, except as documented *Musculoskeletal Musculoskeletal: Reports system reviewed and no additional complaints, except as documented Integumentary/Breasts Skin/Breast: Reports system reviewed and no additional complaints, except as documented *Neurologic Neurologic: Reports system reviewed and no additional complaints, except as documented Psychiatric Psychiatric: Reports system reviewed and no additional complaints, except as documented Endocrine Endocrine: Reports system reviewed and no additional complaints, except as documented and Reports fatigue Hematologic/Lymphatic Hematologic/Lymphatic: Reports system reviewed and no additional complaints, except as documented Allergic/Immunologic Allergic/Immunologic: Reports system reviewed and no additional complaints, except as documented Exam Data for Last 24 hours Vital signs and Labs for Last 24 Hours: Temp Pulse Resp BP Pulse Ox O2 Del Method O2 Flow Rate 97.6 F 88 16 131/82 99 Room Air 1 10/22/24 10:09 10/22/24 10:09 10/22/24 10:09 10/22/24 10:09 10/22/24 10:09 10/22/24 13:00 10/21/24 18:49 Laboratory Results - last 24 hr 10/21/24 16:08: POC Glucose 143 H 10/21/24 20:41: POC Glucose 119 H 10/22/24 01:27: POC Glucose 156 H 10/22/24 01:31: VBG pH 7.50 H, VBG pCO2 34.4 L, VBG pO2 47.5 H, VBG HCO3 26.2, VBG Total CO2 27.2 H, VBG O2 Saturation 85.1 H, VBG Base Excess 3.0 H, VBG Lactic Acid 1.7 10/22/24 01:37: Sodium 135 L, Potassium 3.9, Chloride 102, Carbon Dioxide 27, Anion Gap 9.9, BUN 19 H, Creatinine 0.90, Estimated Creat Clear 70, Estimated GFR 63, Est GFR ( Amer) 77, Glucose 116 H, Calcium 8.8, Total Bilirubin 0.2, AST 23, ALT 12, Alkaline Phosphatase 123, Total Protein 6.6, Albumin 3.2 L, Globulin 3.4 H, Albumin/Globulin Ratio 0.9 L 10/22/24 03:04: POC Glucose 130 H 10/22/24 05:33: POC Glucose 79 10/22/24 05:57: WBC 7.4, RBC 2.98 L, Hgb 8.3 L D, Hct 27.8 L, MCV 93.3, MCH 27.9, MCHC 29.9 L, RDW 22.2 H, Plt Count 340, MPV 8.9, Neut % (Auto) 61.6, Lymph % (Auto) 27.8, [place] % (Auto) 7.4, Eos % (Auto) 1.9, Baso % (Auto) 0.5, Neut # (Auto) 4.6, Lymph # (Auto) 2.1, [place] # (Auto) 0.6, Eos # (Auto) 0.1, Baso # (Auto) 0.0, ESR 101 H, Sodium 136, Potassium 4.5, Chloride 103, Carbon Dioxide 25, Anion Gap 12.5, BUN 18 H, Creatinine 0.80, Estimated Creat Clear 69, Estimated GFR 73, Est GFR ( Amer) 88, Glucose 68 L D, Hemoglobin A1c 5.3 D, Calcium 9.3, Phosphorus 4.7 H, Magnesium 1.6, Total Bilirubin 0.3, AST 26, ALT 16 D, Alkaline Phosphatase 146 H, C-Reactive Protein 8.6 H D, Total Protein 7.4, Albumin 3.7 D, Globulin 3.7 H, Albumin/Globulin Ratio 1.0 L, Vancomycin Trough 22.2 H 10/22/24 11:45: POC Glucose 57 L I & O for Last 24 hours: Intake & Output 10/19/24 10/20/24 10/21/24 10/22/24 23:59 23:59 23:59 23:59 Intake Total 2020 / 2260 720 / 780 60 / 60 Output Total 3450 / 3450 2250 / 2250 1300 / 1300 Balance -1430 / -1190 -1530 / -1470 -1240 / -1240 Weight 173 lb 4.8 oz 176 lb 9.6 oz 168 lb 11.2 oz 165 lb 9.286 oz Microbiology Reports for the Last 24 Hours: Microbiology 10/22/24 07:52 Foot,Left - Wound Gram Stain - Final 10/22/24 07:43 Toe,Second Right Gram Stain - Final 10/19/24 20:35 Blood Blood Culture - Preliminary NO GROWTH AFTER 48 HOURS Constitutional Constitutional: no acute distress and average body habitus *Routine HEENT Exam Head: Present normocephalic and atraumatic ENT: Present mucous membranes moist *Routine Neck Exam Neck: Present supple, full ROM and normal carotid upstroke; Absent JVD, carotid bruit or lymphadenopathy *Routine Respiratory Exam Respiratory: Present CTA bilaterally, normal respiratory effort, able to speak in complete sentences and symmetric chest movement *Routine Cardiovascular Exam Cardiovascular: Present RRR, Normal S1 and Normal S2; Absent murmur or gallop *Routine Abdominal Exam Abdominal: Present soft and normoactive bowel sounds; Absent tenderness, distended or organomegaly *Routine Extremities Exam Extremities: Present full ROM, pulses intact, normal capillary refill and amputation; Absent cyanosis, clubbing or edema *Routine Skin Exam Skin: Present intact and warm; Absent erythema *Routine Neurological Exam Neurological: Present alert and oriented X3; Absent sensory deficit or motor deficit Routine Psychiatric Exam Psychiatric: Present normal affect Meds Home Medications and Allergies Home Medications ?Medication ?Instructions ?Recorded ?Confirmed ?Type amitriptyline 50 mg tablet 50 mg PO HS 04/14/24 10/19/24 History atorvastatin 80 mg tablet 40 mg PO HS 04/14/24 10/19/24 History bupropion HCl 150 mg tablet,12 hr 150 mg PO BID 04/14/24 10/19/24 History sustained-release pramipexole 0.5 mg tablet 0.5 mg PO DAILY 04/14/24 10/19/24 History gabapentin 800 mg tablet 800 mg PO Q6H 04/15/24 10/19/24 History hydrocodone 10 mg-acetaminophen 1 tab PO Q6H 04/15/24 10/19/24 History 325 mg tablet spironolactone 25 mg tablet 25 mg PO DAILY 04/15/24 10/19/24 History blood-glucose meter #1 ea 04/17/24 10/19/24 Rx insulin lispro 100 unit/mL 20 unit SQ BID 04/24/24 10/19/24 History subcutaneous pen sennosides 8.6 mg tablet (Senna 17.2 mg (2 x 8.6 mg) PO DAILY 30 04/24/24 10/19/24 Rx Laxative) days #60 tabs polyethylene glycol 3350 17 17 g PO DAILY 05/21/24 10/19/24 History gram/dose oral powder (Miralax) magnesium oxide 400 mg (241.3 mg 400 mg PO DAILY #90 tabs 08/22/24 10/19/24 Rx magnesium) tablet citalopram 20 mg tablet 20 mg PO DAILY #90 tabs 08/30/24 10/19/24 Rx allopurinol 100 mg tablet 100 mg PO DAILY #30 tabs 10/09/24 10/19/24 Rx carvedilol 25 mg tablet 12.5 mg (1/2 x 25 mg) PO BID #60 10/09/24 10/19/24 Rx tabs clopidogrel 75 mg tablet 75 mg PO DAILY #30 tabs 10/09/24 10/19/24 Rx lisinopril 40 mg tablet 40 mg PO HS #30 tabs 10/09/24 10/19/24 Rx pantoprazole 40 mg tablet,delayed 40 mg PO HS #90 tabs 10/09/24 10/19/24 Rx release insulin glargine 100 unit/mL (3 100 unit SQ BID #15 mL 10/15/24 10/19/24 Rx mL) subcutaneous pen (Lantus Solostar U-100 Insulin) furosemide 40 mg tablet 40 mg PO DAILY #90 tabs 10/16/24 10/19/24 Rx aspirin 81 mg tablet,delayed 81 mg PO DAILY 10/20/24 10/19/24 History release (Darshana Low Dose Aspirin) ferrous sulfate 325 mg (65 mg 325 mg PO DAILY 10/20/24 10/20/24 History iron) tablet (Feosol) levothyroxine 200 mcg tablet 200 mcg PO DAILY 10/20/24 10/20/24 History lubiprostone 8 mcg capsule 8 mcg PO BID 10/20/24 10/20/24 History ondansetron 4 mg disintegrating 4 mg PO Q8HP PRN nausea and 10/20/24 10/20/24 History tablet vomiting semaglutide 1 mg/dose (4 mg/3 mL) 1 mg SQ WEEKLY 10/20/24 10/20/24 History subcutaneous pen injector (Ozempic) New Prescriptions to Start Prescriptions: Allergies Allergy/AdvReac Type Severity Reaction Status Date / Time canagliflozin (From [facility]) Allergy Severe kidney Verified 08/27/24 12:32 issues Assessment and Plan *Assessment and plan (1) Decreased pedal pulses: Status: Acute Category: Medical Code(s): R09.89 - Other specified symptoms and signs involving the circulatory and respiratory systems (2) Ulcer of second toe of right foot: Status: Acute Qualifiers: Non-pressure ulcer stage: with necrosis of bone Qualified Code(s): L97.514 - Non-pressure chronic ulcer of other part of right foot with necrosis of bone Category: Medical Code(s): L97.519 - Non-pressure chronic ulcer of other part of right foot with unspecified severity (3) Acute on chronic systolic heart failure: Status: Acute Category: Medical Code(s): I50.23 - Acute on chronic systolic (congestive) heart failure (4) CAD (coronary atherosclerotic disease): Status: Acute Qualifiers: Associated angina: with other forms of angina Coronary Disease- Associated Artery/Lesion type: habematolel artery [place] vs. transplanted heart: habematolel heart Qualified Code(s): I25.118 - Atherosclerotic heart disease of habematolel coronary artery with other forms of angina pectoris Category: Medical Code(s): I25.10 - Atherosclerotic heart disease of habematolel coronary artery without angina pectoris (5) Peripheral arterial disease: Status: Acute Category: Medical Code(s): I73.9 - Peripheral vascular disease, unspecified (6) Hypertension: Status: Acute Qualifiers: Hypertension type: unspecified Qualified Code(s): I10 - Essential (primary) hypertension Category: Medical Code(s): I10 - Essential (primary) hypertension (7) Hyperlipidemia: Status: Acute Qualifiers: Hyperlipidemia type: unspecified Qualified Code(s): E78.5 - Hyperlipidemia, unspecified Category: Medical Code(s): E78.5 - Hyperlipidemia, unspecified (8) 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: Status: Acute Qualifiers: Fracture alignment: nondisplaced Fracture type: closed Qualified Code(s): S92.355K - Nondisplaced fracture of fifth metatarsal bone, left foot, subsequent encounter for fracture with nonunion Category: Medical Code(s): S92.352K - Displaced fracture of fifth metatarsal bone, left foot, subsequent encounter for fracture with nonunion (9) Pulmonary edema: Status: Acute Qualifiers: Chronicity: acute Qualified Code(s): J81.0 - Acute pulmonary edema Category: Medical Code(s): J81.1 - Chronic pulmonary edema (10) Abnormal ankle brachial index (ELLIE): Status: Acute Category: Medical Code(s): R68.89 - Other general symptoms and signs Plan Plan: 1. The patient was admitted to the hospital and found to have acute on chronic exacerbation of HFrEF as well as an ulcer of the second toe of the right foot. The patient needs continued diuresis for her HFrEF. Continue Lasix 80 mg IV twice daily. 2. Continue Coreg, lisinopril, spironolactone for HFrEF as well. 3. Once she is more euvolemic we will start her on Jardiance or Farxiga for the HFrEF. 4. Echocardiogram shows her ejection fraction is 40% which is unchanged from 2022 LV gram. 5. The patient does have an ulcer to her second toe on the right foot as well as a wound to her left foot. She does have abnormal ABIs bilaterally showing mild to moderate PAD. She will need to have amputation of her right second toe with biopsy of her bilateral feet to evaluate for osteomyelitis and she may require amputation of her feet as well. Before podiatry proceeds with her amputations she will need bilateral runoff to evaluate her PAD to see if either of her feet can be salvaged and to help promote blood flow prior to surgery. 6. Will plan to proceed with bilateral iliofemoral runoff due to wounds on her feet and osteomyelitis. The patient has been educated on the risks and benefits of proceeding with bilateral iliofemoral runoff. The patient has verbalized understanding and is agreeable in proceeding with the procedure. 7. N.p.o. in preparation for runoff. 8. The patient has known coronary artery disease. Her troponins are negative. She denies any chest pain or pressure. No plans for invasive left cardiac catheterization at this time. Continue Plavix and aspirin. 9. Her blood pressure is well-controlled. 10. Her LDL goal is less than 55. She is on a statin. Will get a lipid panel in the morning. 11. Further recommendations will be made pending the patient's response to treatment and the results of her runoff today. Thank you for the opportunity to help participate in the care of this patient. All recommendations and orders are per Dr. Levine.
[2024-10-22] MEDS: VERAPAMIL 2.5MG/ML 2ML VIAL 2.5 MG IV (14:17)
[2024-10-22] MEDS: HEPARIN 1,000 UNITS/ML 10ML VIAL (CATH LAB) 5000 UNIT IV (14:17)
[2024-10-22] MEDS: NITROGLYCERIN 800MCG/8ML SYR (CATH LAB) 800 MCG IA (14:18)
--- OUTSIDE RECORDS SUMMARY | 2024-10-22 15:42 | XMS_ITS | Continuity of Care Document ---
Author Organization Formerly [facility]. 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
--- OUTSIDE RECORDS SUMMARY | 2024-10-22 15:43 | XMS_ITS | Data Portability ---
Author Organization [place] - [facility] ADMIN Address [address] [place] [id number] Assessment No assessment recorded. Plan of Treatment [...] Hospit al [address] [place] [address] Phone: Fax: Name: MICHELINE KIMBLE Exam Date: 024 : 963 Age 63 years Gender : F Access ion: [id number] Physic daniela: NARENDRA MURPHY Facili ty: [facility] Facili ty HSV: Inpati ent Exam: ECH[place]A [...] Pulmon ic Valve Report for MICHELINE Floyd [id number] on 4 Dictat ed By: SHARLENE KAHN Transc ribed By: KEELY STOLL Transc ribed On: 024 8:06 AM Electr onical ly signed by: SHARLENE KAHN 024 Thank you for referr MICHELINE Sanabria to [facility]. Legall y authserenity pickens by GABY Pickens MD 01-16 08:08: 46 CC'ed Logic: Orderi ng Provid er: GABY Pickens Attend ing Provid er: BELTRAN -MARGAUXEsther MACKEY Referr ing Provid er: DEVIN MACKEY Admitt ing Provid er: BELTRAN -MARGAUX NARENDRA [facility] ([facility]) [address] , [place], [address], 01/23/2024 11:56:46 Result Notes None recorded. Procedures Surgical History None recorded. Imaging Results Imaging Date Name Status LastModified by Organiz ation Details LastModified Time 01/17/2024 US, echocardiog thompson, transthorac ic, complete, w/ color flow completed [facility] ([facility]) [address] , [place], [address], 01/23/2024 11:56:46 Procedure Notes None recorded. Medical [...] Not Available Not Available FreeStyle Laureen 2 [place] active Not Available Not Available Not Available Ozempic 1 mg/dose (4 mg/3 mL) subcutaneous pen injector INJECT 1 MG SUBCUTANEOU SLY WEEKLY FOR DIABETES active Not Available Not Available No t Available insulin glargine-yfg n (U-100) 100 unit/mL (3 mL) subcutaneous pen INJECT 15 UNITS UNDER THE THE SKIN ONCE DAILY active Not Available Not Available No t Available [facility] COVID-19 Antigen Rapid Home Test kit USE DIRECTED active Not Available Not Available No t Available Vitals Date Recorded Body weight Body mass index (BMI) Body height Heart rate Oxygen saturation Oxygen saturation in Arterial blood by Pulse oximetry Body temperature Systolic blood pressure Diastolic blood pressure Provider Name and Address Organization Details Last Updated DateTime 3 01957.8 9 g 31.5 kg/m2 157.48 cm 88 /min 97 % 97 % 98.1 [degF] 128 mm[Hg] 78 mm[Hg] [facility] 3 10:54:49 Social History None recorded. Functional Status None recorded. Mental Status None recorded. Family History Nothing Reported. Medical History No medical history recorded. Gynecological HistoryNo gynecological history recorded. Obstetrics History GPAL:G 0 P 0 0 0 0 Past Encounters Encounter ID Performer Location Encounter Start Date Encounter Closed Date Diagnosis/Indication Diagnosis SNOMED-CT Code Diagnosis ICD10 Code Diagnosis Note [id number] Willian Olea MD [address] [id number] 12/15/2022 10:35:04 12/15/2022 11:08:48 Osteomyelitis of right foot [id number] 422180 M86.9 Chronic osteomyeli tis of the right [...] weeks. Methicilli n resistant Staphylococcus aureus infection 831815201 A49.02 As above. Health Concerns Section Related Observation LastModified by Organization Detai ls LastModified Time None Recorded Concern Status LastModified by Organization Details LastModified Time None Recorded Advance Directives Directive None Recorded Payers Encounter Date Sequence Insurance Name Policy Number Policy Mcdonald Covered Member ID Mcdonald Member ID Guarantor Name 12/15/2022 1 [place] (MEDICARE REPLACEMENT HMO) [id number] Micheline Hernandez [id number] Micheline Hernandez 12/15/2022 2 [place]-[facility] CHOICES - FFS/TRADITIONA L Micheline Hernandez [id number] Micheline Hernandez Notes Date Note Type Note Provider Name and Address Organization Details Recorded Time 12/15/2022 text/html This is a 62-year-old white female [place] up with [place] for a chronic osteomyelitis of the right [...] No other issues today. Willian Olea MD [address], [place], [address], [facility] [place] - [place] & [place] 12/15/2022 11:04:34 OBGyn Episode No OBEpisode recorded.
[2024-10-22] MEDS: IOPAMIDOL-370 (76%);100ML BOTTLE 225 ML IV (16:36)
[2024-10-22 16:37] LABS: CATHL Activated Clotting Time 267 SEC (74-125)
[2024-10-22 16:56] LABS: POC Glucose,Bedside 125 (70-110)
--- NOTE | 2024-10-22 19:53 | EXP.ACUTE.PN ---
Subjective *Date: 10/22/24 *Time: 22:44 Interval history: Patient interactive this morning. Improved confusion from yesterday. Stable on room air. N.p.o. for lower extremity runoff. Afebrile. Having response to diuresis. Denies chest pain, nausea, vomiting. Pain controlled in legs. Medical Exam Vital signs and Labs for Last 24 Hours: Vital Signs Temp Pulse Pulse Resp BP Pulse Ox O2 Del Method 10/22/24 19:10 87 16 117/49 L 96 Room Air 10/22/24 18:50 Room Air 10/22/24 18:40 87 16 101/66 L 96 Room Air 10/22/24 18:10 76 18 115/67 97 Nasal Cannula 10/22/24 17:40 74 16 101/49 L 97 Nasal Cannula 10/22/24 17:10 Room Air 10/22/24 17:10 74 16 94/52 L 93 L Nasal Cannula 10/22/24 16:55 75 16 99/61 L 98 Nasal Cannula 10/22/24 16:40 75 16 100/57 L 91 L Room Air 10/22/24 16:25 74 16 96/62 L 91 L Room Air 10/22/24 16:10 76 20 102/64 L 92 L 10/22/24 16:05 76 16 104/67 L 94 L 10/22/24 16:00 75 10/22/24 16:00 76 20 103/68 L 92 L Room Air 10/22/24 15:52 77 76 20 110/65 99 10/22/24 13:00 Room Air 10/22/24 12:00 83 10/22/24 12:00 97.7 F 83 16 103/62 L 98 Room Air 10/22/24 11:00 Room Air 10/22/24 10:09 97.6 F 88 16 131/82 99 Room Air 10/22/24 09:15 Room Air 10/22/24 09:15 99 Room Air 10/22/24 08:00 89 10/22/24 08:00 97.6 F 88 16 131/82 99 Room Air 10/22/24 06:16 74 10/22/24 06:16 79 10/22/24 06:16 100 Room Air 10/22/24 06:13 Room Air 10/22/24 05:00 Room Air 10/22/24 04:00 98.0 F 81 16 107/65 L 99 Room Air 10/22/24 04:00 70 10/22/24 03:00 Room Air 10/22/24 02:20 73 10/22/24 02:16 72 10/22/24 01:00 Room Air 10/22/24 00:00 60 10/22/24 00:00 98.5 F 80 16 111/66 98 Room Air 10/21/24 23:00 Room Air 10/21/24 23:00 84 10/21/24 23:00 85 10/21/24 23:00 94 L Room Air 10/21/24 21:00 Room Air 10/21/24 20:00 Room Air 10/21/24 20:00 99 F 85 18 108/59 L 99 Room Air O2 Flow Rate 10/22/24 19:10 10/22/24 18:50 10/22/24 18:40 10/22/24 18:10 2 10/22/24 17:40 2 10/22/24 17:10 10/22/24 17:10 2 10/22/24 16:55 2 10/22/24 16:40 10/22/24 16:25 10/22/24 16:10 10/22/24 16:05 10/22/24 16:00 10/22/24 16:00 10/22/24 15:52 10/22/24 13:00 10/22/24 12:00 10/22/24 12:00 10/22/24 11:00 10/22/24 10:09 10/22/24 09:15 10/22/24 09:15 10/22/24 08:00 10/22/24 08:00 10/22/24 06:16 10/22/24 06:16 10/22/24 06:16 10/22/24 06:13 10/22/24 05:00 10/22/24 04:00 10/22/24 04:00 10/22/24 03:00 10/22/24 02:20 10/22/24 02:16 10/22/24 01:00 10/22/24 00:00 10/22/24 00:00 10/21/24 23:00 10/21/24 23:00 10/21/24 23:00 10/21/24 23:00 10/21/24 21:00 10/21/24 20:00 10/21/24 20:00 Intake and Output 10/22/24 10/22/24 10/22/24 07:59 15:59 23:59 Intake Total 60 / 60 0 / 60 Output Total 0 1900 1300 / 1900 600 / 1900 Balance 60 / -1840 -1300 / -1840 -600 / -1840 Intake: Intake, Oral Amount 60 / 60 0 / 60 Output: Output, Urine Amount 0 1900 1300 / 1900 600 / 1900 Other: Number of Unmeasured Voids 1 0 0 Weight 75.16 kg 75.106 kg Patient Weight 10/22/24 23:59 Weight 75.106 kg Laboratory Results - last 24 hr 10/21/24 20:41: POC Glucose 119 H 10/22/24 01:27: POC Glucose 156 H 10/22/24 01:31: VBG pH 7.50 H, VBG pCO2 34.4 L, VBG pO2 47.5 H, VBG HCO3 26.2, VBG Total CO2 27.2 H, VBG O2 Saturation 85.1 H, VBG Base Excess 3.0 H, VBG Lactic Acid 1.7 10/22/24 01:37: Sodium 135 L, Potassium 3.9, Chloride 102, Carbon Dioxide 27, Anion Gap 9.9, BUN 19 H, Creatinine 0.90, Estimated Creat Clear 70, Estimated GFR 63, Est GFR ( Amer) 77, Glucose 116 H, Calcium 8.8, Total Bilirubin 0.2, AST 23, ALT 12, Alkaline Phosphatase 123, Total Protein 6.6, Albumin 3.2 L, Globulin 3.4 H, Albumin/Globulin Ratio 0.9 L 10/22/24 03:04: POC Glucose 130 H 10/22/24 05:33: POC Glucose 79 10/22/24 05:57: WBC 7.4, RBC 2.98 L, Hgb 8.3 L D, Hct 27.8 L, MCV 93.3, MCH 27.9, MCHC 29.9 L, RDW 22.2 H, Plt Count 340, MPV 8.9, Neut % (Auto) 61.6, Lymph % (Auto) 27.8, Wells % (Auto) 7.4, Eos % (Auto) 1.9, Baso % (Auto) 0.5, Neut # (Auto) 4.6, Lymph # (Auto) 2.1, Wells # (Auto) 0.6, Eos # (Auto) 0.1, Baso # (Auto) 0.0, ESR 101 H, Sodium 136, Potassium 4.5, Chloride 103, Carbon Dioxide 25, Anion Gap 12.5, BUN 18 H, Creatinine 0.80, Estimated Creat Clear 69, Estimated GFR 73, Est GFR ( Amer) 88, Glucose 68 L D, Hemoglobin A1c 5.3 D, Calcium 9.3, Phosphorus 4.7 H, Magnesium 1.6, Total Bilirubin 0.3, AST 26, ALT 16 D, Alkaline Phosphatase 146 H, C-Reactive Protein 8.6 H D, Total Protein 7.4, Albumin 3.7 D, Globulin 3.7 H, Albumin/Globulin Ratio 1.0 L, Vancomycin Trough 22.2 H 10/22/24 11:45: POC Glucose 57 L 10/22/24 15:26: Activated Clotting Time 267 H* 10/22/24 16:47: POC Glucose 125 H I & O for Labs for Last 24 Hours: Intake & Output 10/19/24 10/20/24 10/21/24 10/22/24 23:59 23:59 23:59 23:59 Intake Total 2020 / 2260 720 / 780 60 / 60 Output Total 3450 / 3450 2250 / 2250 1900 / 1900 Balance -1430 / -1190 -1530 / -1470 -1840 / -1840 Weight 78.608 kg 80.104 kg 76.521 kg 75.106 kg Microbiology Reports for the Last 24 Hours: Microbiology 10/22/24 07:52 Foot,Left - Wound Gram Stain - Final 10/22/24 07:43 Toe,Second Right Gram Stain - Final 10/19/24 20:35 Blood Blood Culture - Preliminary NO GROWTH AFTER 48 HOURS Constitutional: Present no acute distress, obese, chronically ill appearing and somnolent Head: Present atraumatic and normocephalic ENT: Present normal exam Respiratory: Present normal respiratory effort; Absent rhonchi, wheezes or crackles Cardiac: Present Reg Rate and Rhythm GI: Present soft, distention and normal bowel sounds; Absent tenderness Extremities: Present full ROM Comment:: Multiple lesions on bilateral feet. Second toe on right foot concerning for osteomyelitis. Wound proximal left metatarsal left foot with clean base. Skin: Present wounds; Absent erythema Neuro: Present Grossly Intact, alert, awake, oriented x 3 and moves all extremities Assessment and Plan *Assessment and plan (1) Pulmonary edema: Status: Acute Qualifiers: Chronicity: acute Qualified Code(s): J81.0 - Acute pulmonary edema Category: Medical Code(s): J81.1 - Chronic pulmonary edema (2) Acute on chronic systolic heart failure: Status: Acute Category: Medical Code(s): I50.23 - Acute on chronic systolic (congestive) heart failure (3) Osteoarthritis of toe: Status: Acute Category: Medical Code(s): M19.079 - Primary osteoarthritis, unspecified ankle and foot (4) Cellulitis of foot: Status: Acute Category: Medical Code(s): L03.119 - Cellulitis of unspecified part of limb (5) Iron deficiency: Status: Acute Category: Medical Code(s): E61.1 - Iron deficiency (6) T2DM (type 2 diabetes mellitus): Status: Acute Qualifiers: 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 use Diabetes mellitus complication status: with diabetic arthropathy Diabetes mellitus complication detail: with neuropathic arthropathy Qualified Code(s): E11.610 - Type 2 diabetes mellitus with diabetic neuropathic arthropathy; Z79.4 - [facility] (current) use of insulin Category: Medical Code(s): E11.9 - Type 2 diabetes mellitus without complications (7) Hyperlipidemia: Status: Acute Qualifiers: Hyperlipidemia type: unspecified Qualified Code(s): E78.5 - Hyperlipidemia, unspecified Category: Medical Code(s): E78.5 - Hyperlipidemia, unspecified (8) Peripheral arterial disease: Status: Acute Category: Medical Code(s): I73.9 - Peripheral vascular disease, unspecified (9) 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: Status: Acute Qualifiers: Fracture type: closed Fracture alignment: nondisplaced Qualified Code(s): S92.355K - Nondisplaced fracture of fifth metatarsal bone, left foot, subsequent encounter for fracture with nonunion Category: Medical Code(s): S92.352K - Displaced fracture of fifth metatarsal bone, left foot, subsequent encounter for fracture with nonunion (10) Decreased pedal pulses: Status: Acute Category: Medical Code(s): R09.89 - Other specified symptoms and signs involving the circulatory and respiratory systems Plan 64-year-old female who presented with shortness of breath. Had prolonged course of treatment at over the past few months for infection and knee along with amputation of toe. Presented with new oxygen requirement due to her hypoxia. Appears frankly volume overloaded. Initiated on aggressive diuresis and supplemental oxygen. Podiatry and cardiology assisting with care. Planning for runoff of lower extremity today. Anticipate surgery tomorrow. Continue antibiotics for infection. Necessitates inpatient care. Problems addressed as follows #Pulmonary edema #Acute on chronic systolic congestive heart failure # Hypertension # Hyperlipidemia - Bilateral lower extremity edema, chest x-ray with pulmonary edema. Known history of systolic heart failure per chart review at (unknown EF) - Initiated on IV diuresis with proBNP of >30,000. Continue Lasix 80 mg IV twice daily - Echo obtained with EF reduced to 40%, grade 2 diastolic dysfunction present. - Continue home medications for heart failure and hypertension including Lipitor 40 mg nightly, carvedilol 12 and half milligrams twice daily, Plavix 75 mg daily, lisinopril 40 mg nightly, spironolactone 25 mg daily - Goal sats greater 90%, currently on room air. - Cardiology obtaining lower extremity runoff today. #Osteoarthritis of toe, right #Cellulitis of foot right #PAD Prior history of MRSA osteomyelitis. Recent septic knee on the same side. Mild mottling noted but patient reports this is chronic. Toe ulceration worse per patient's report. Unable to palpate pulses but they are present with Doppler Continue vancomycin IV, close monitoring for toxicity Podiatry evaluated, plan for surgical intervention in the morning. Discussed plan for amputation of second toe and evaluation of distal metatarsals due to concern for osteo myelitis -CRP 8.6, ESR 101. Kidney function normal with BUN 18, creatinine 0.8. White count 7.4 - Repeat CBC, CMP, magnesium ordered for the morning. - Hydrocodone 7.5 mg as needed every 6 hours along with gabapentin as needed 800 mg every 6 hours monitor for toxicity. Patient's home medications locked up. #Iron deficiency anemia: - Hemoglobin stable this morning at 7.5, white count 6.6. - Transfusion threshold hemoglobin less than 7 - 200 mg IV Venofer administered yesterday. #T2DM: Decrease insulin glargine to 15 units tonight due to low blood sugars through the day. Fingersticks ACHS. Hold Ozempic during admission, A1c 7.9 two months ago #Hypothyroidism: Continue home levothyroxine 200 mcg daily Continue home gabapentin 800 mg, transition to every 6 hours as needed as opposed to scheduled Continue hydrocodone increased to 7.5 mg every 6 hours as needed for pain control. Home regimen is 10 mg. Due to oversedation, will administer slightly smaller dose. High risk for polypharmacy and oversedation Continue stool softeners with Senokot daily for constipation Full code Diabetic diet Heparin 5k units TID
--- NOTE | 2024-10-22 20:34 | PC.NURSE ---
Addendum entered by Teresa Rodriguez RN 10/23/24 06:01: Blood glucose level was rechecked. The reading increased to 192. Addendum entered by Teresa Rodriguez RN 10/23/24 05:34: Blood glucose level was checked this morning; the glucometer showed RR LO for the reading. The patient appeared very diaphoretic and fatigued. Santana WRIGHT ordered to give the patient 2 injections of 50% Dextrose (100 mL total) per MAR, verbally. Blood glucose level will be rechecked 15 minutes post-administration. Addendum entered by Teresa Rodriguez RN 10/23/24 02:00: Blood glucose level was rechecked. The reading increased to 117. Addendum entered by Teresa Rodriguez RN 10/23/24 01:16: 50% Dextrose Injection 50 mL administered at 01:15 per MAR. Blood glucose level will be rechecked in about 15 minutes (at 01:30). Addendum entered by Teresa Rodriguez RN 10/23/24 00:34: I checked the patient's blood glucose level at this time; the reading was 52. Yenny WRIGHT was notified of this; pending new orders. Original Note: Due to the patient's history of hypoglycemia issues, current fatigued state, and soft blood pressures (most recent reading was 91/55), Yenny WRIGHT stated to hold amitriptyline, Wellbutrin, carvedilol, and lisinopril, as well as the short-acting insulin for now. She stated to go ahead and give Lantus + other remaining medications (atorvastatin, heparin). The patient's glucose level will also be checked again at approximately midnight this shift.
[2024-10-22] MEDS: ATORVASTATIN 40MG TABLET 40 MG PO (20:50)
[2024-10-22] MEDS: INSULIN GLARGINE 100 UNITS/ML 3ML FLEXPEN 20 UNIT SUBCUT (20:50)
[2024-10-22 21:49] LABS: POC Glucose,Bedside 152 (70-110)
[2024-10-23] VITALS (29 sets, daily range): BP systolic 87–134; BP diastolic 51–88; PULSE 70–90; RESP 16–20; TEMP 36.3–37; O2SAT 93–98
[2024-10-23 00:42] LABS: POC Glucose,Bedside 52 (70-110)
[2024-10-23] MEDS: DEXTROSE 50% 50ML SYRINGE (CRASH CART) 50 ML IVP ×3 (01:15→05:21)
[2024-10-23 02:09] LABS: POC Glucose,Bedside 117 (70-110)
[2024-10-23 06:08] LABS: POC Glucose,Bedside 192 (70-110)
[2024-10-23] MEDS: Dextrose 5 % and 0.9 % NaCl 1,000 ML 100 ML IV (06:16)
[2024-10-23] MEDS: LEVOTHYROXINE 100MCG (0.1MG) TAB 200 MCG PO (06:18)
[2024-10-23 06:36] LABS: Basophils % 0.4 % (0.1-2.0); Eosinophils # 0.2 Kmm3 (0.0-0.4); Eosinophils % 2.1 % (0.1-12.0); Hematocrit 22.3 % (37.0-47.0); Lymphocytes # 1.9 K/mm3 (0.7-4.5); Lymphocytes % 27.6 % (10-50); Mean Corpuscular HGB Conc 30.5 g/dL (31.8-35.4); Mean Corpuscular Hemoglobin 28.3 pg (27.0-31.2); Mean Corpuscular Volume 92.9 fl (81-99); Monocytes # 0.6 K/mm3 (0.1-1.0); Monocytes % 8.7 % (1.7-9.3); Neutrophils # 4.2 K/mm3 (1.8-7.8); Neutrophils % 60.3 % (37.0-80.0); Nucleated Red Blood Cells # 0 10^3/uL; Nucleated Red Blood Cells % 0 %; Platelet Count 323 K/mm3 (142-424); Red Cell Distribution Width 21.6 % (11.5-17.5); Red Cell Distribution Width-SD 72.6 fL
--- NOTE | 2024-10-23 06:48 | PC.NURSE ---
Patient left floor with staff for surgery at 06:47.
[2024-10-23 07:08] LABS: Hemoglobin 6.8 g/dL (12.2-16.2)
--- NOTE | 2024-10-23 07:25 | P.PNANES_ITS ---
[facility] Disclaimer: The information contained in this section may have been updated after the patient was seen, as this information can be updated by other users. Medical History (Updated 10/22/24 @ 14:18 by Yanet Osborne APRN) Tobacco dependence syndrome Hypertension Peripheral arterial disease CAD (coronary atherosclerotic disease) T2DM (type 2 diabetes mellitus) Decreased pedal pulses Ulcer of second toe of right foot Pulmonary edema Abnormal ankle brachial index (ELLIE) Acute on chronic systolic heart failure Closed left ankle fracture Elevated left ventricular end-diastolic pressure (LVEDP) Edema of both lower extremities Syncope Abnormal result of cardiovascular function study Typical angina Arthritis GERD (gastroesophageal reflux disease) Depression COPD (chronic obstructive pulmonary disease) Arrhythmia Hyperlipidemia Surgical History History of cancer surgery H/O total hysterectomy Hx of colonoscopy Family History Other Cancer Coronary artery disease Diabetes Heart attack Hypertension Stroke Social History (Updated 10/19/24 @ 22:27 by Gabriela Gloria RN) Smoking Status: Former smoker tobacco type: cigarettes alcohol intake: never substance use type: denies use current occupational status: unemployed and disabled Travel in the last 8 weeks?: None household members: spouse housing: house Have you lived/traveled outside [place] in past 30 days?: No Contact w/someone who lives/traveled outside US past 30 days?: No Exposure to someone with infectious disease in past 14 days?: No Do you have a fever (greater than 100.4 F or 38 C)?: No Have you tested positive for COVID-19?: No Exposed to someone with COVID-19 in past 14 days?: No Do you have a sore throat?: No Do you have a cough?: No Do you have any weakness?: No Do you have any diarrhea?: No Are you experiencing any unusual bleeding?: No Do you have any muscle aches/pain?: No Do you have any abdominal pain?: No Are you experiencing loss of taste or smell?: No [facility] Anesthesia Checklist Patient Identification Patient Identification: Arm Band Structural Data Admitted From: Home Planned Operative Procedure/s: Right 2nd Toe Amputation Consent for Planned Operative Procedure(s) Verified: Yes Verified Documents: Surgical Consent and History and Physical NPO Status Verified Time NPO: 00:00 Additional verifications Anesthesia Reactions: No Airway Assessment Mallampati Score:: Class II C-Spine Mobility Assessed: Yes TMJ Mobility Assessed: Yes Dentition: Edentulous Neurological Assessment Level of Consciousness: Awake, Alert and Appropriate Anesthesia Plan Anesthesia Risk discussed: Yes Anesthesia Plan: Verified ASA Class: IV Anesthesia Type: MAC
[2024-10-23] MEDS: CLINDAMYCIN PHOSPHATE/D5W 900 MG/50 ML PIGGYBACK 25 MG (07:29)
[2024-10-23 07:31] LABS: Alanine Aminotransferase 11 U/L (12-78); Albumin Level 2.9 g/dl (3.5-5.0); Alkaline Phosphatase 90 U/L (38-126); Anion Gap 9.1 mEq/L (5-15); Aspartate Amino Transferase 31 U/L (14-36); Bilirubin,Total 0.5 mg/dl (0.2-1.3); Blood Urea Nitrogen 21 mg/dl (7-17); Calcium 8.3 mg/dl (8.4-10.2); Carbon Dioxide 25 mmol/L (22.0-30.0); Chloride 101 mmol/L (98-107); Creatinine Clearance Estimated 68 mL/min (50-200); Estimated Glomerular Filt Rate 73 ml/min (>60); GFR (African American) 88 ML/MIN (>60); Glucose 266 mg/dl (74-100); Potassium 4.1 mmoL/L (3.5-5.1); Sodium 131 mmol/L (136-145); Total Protein,Serum 5.9 g/dl (6.3-8.2)
--- NOTE | 2024-10-23 07:36 | EXP.OP.NOTE ---
Date of procedure: 10/23/24 Pre-op Diagnosis:: B/L DFU Right 2nd toe osteomyelitis Left 5th metatarsal osteomyelitis Post-op Diagnosis:: Same Procedure performed:: Right 2nd toe amputation Right 5th metatarsal partial resection, open bone biopsy Left 5th partial metatarsal amputation/resection Bilateral foot wound wide excisional debridement with ulcer excision Surgeon:: Daniella Finnegan DPM Anesthesia: MAC Estimated blood loss (mL): 20 Clinical Note:: Patient is a 64 DM female who was admitted for pulm edema and b/l LE DFU. She reports seeing several surgeons in the past including Ortho Dr Duque and Podiatry Dr Thanh Mejía. She was unsure of other providers name. Hx: left foot bone scrapping within the last few months, right knee fracture and sepsis (tx [facility]), right hallux amp years ago , right foot Charcot recon with retained foot beams. Concern over possible b/l foot DFU with infection. Hx stents, unsure which leg. Unable to palpable pedal pulses. Patient is not a good historian. pasted away several yrs ago (BKA, DM, DC). Lives alone, sometimes grandson stays over . Unable to drive. New images were discussed with the patient. ABIs abnormal (Right PT 0.62, DP 0.62, TBI 0.62 and Left PT 0.6, DP 0.78, TBI 0.51), consent cardiology for possible run-off. Discussed low healing potential with high risk for BKA vs AKA (hx right knee fx with septic joint). We discussed conservative versus surgical treatment options. We discussed conservative care including continued oral vs IV antibiotics and local wound care versus surgical irrrigation and debridement of ulcers, open bone biopsy, right 2nd toe amputation. Patient understands that they could have wound healing complications including delayed healing and infection. We discussed that if the wound does not heal, it is possible that they may need further debridement. Patient understands if infection spreads into the bone, it may warrant proximal amputation and could result in further loss of digits, loss of partial foot or loss of leg. We discussed the risks and benefits in great detail. Discussd due to the right foot fixation, if she has infection it would likely result in BKA. Other surgical risks include: prolonged pain and swelling, further infection requiring oral or IV antibiotics, delay in healing of soft tissue or bone, nerve or blood vessel damage, failure of implant, need for implant removal, CRPS/RSD, DVT/PE, anesthesia complications, and even . All questions answered. Patient verbalized understanding. Verbal and written consent obtained. Operative findings:: Toenails thick, yellow with subugal debris. Debrdied with nail nippers x 7 without complication. Multiple small arterial lesions and scabs noted to both feet, legs and knees extending to thighs. B/L foot 5th metatarsal DFU. Sharp excisonal full thickness debridement of 5th metatarsal wounds (DFU x2) with 15' blade, curette. Post: Wounds did not bleed and had the following measurements. Left 5th metatarsal DFU full thickness thru skin, subq to deep fascia. Wound: 70% granular, 30% yellow eschar with fibrotic slough noted and debrided, 1.5 x 1.5 x 0.2cm. Right 5th metatarsal DFU full thickness thru skin, subq. Wound: 50% granular, 50% yellow eschar with fibrotic slough noted and debrided, 1.5 x 1.0 x 0.3cm. R 2nd toe ulceration full-thickness to the deep fascia covering the second PIPJ. Right second toe amputated by disarticulating the second toe from the metatarsal. The second metatarsal head was irregular with cortical erosion and changes consistent with prior Charcot surgery and retained beam through the second metatarsal head. No purulence malodor or drainage noted around the second metatarsal head noted. The right fifth metatarsal bone was irregular with questionable osteomyelitis. Overall prognosis fair to guarded. Due to comorbidities including diabetes, obesity, anemia, noncompliance, cardiac history, PVD/PAD with recent runoff patient is high risk for further amputation and limb loss. Patient had some but minimal bleeding during the case. Given that the patient has also had multiple procedures on right foot with retained orthopedic hardware in the 1st, 2nd and 4th metatarsal which extends from metatarsal into the talus/calcaneus, there is no transmetatarsal amputation option. Therefore if the right second toe wound does not heal, or there is wound dehiscence with recurrent or progressive infection, patient will likely end up with a BKA versus AKA. Also has a recent history of right knee fracture with a septic joint. Defer management of that to hospitalist team/Ortho. Operative note:: On this date and time patient was deemed an appropriate surgical candidate. With informed consent signed, the patient was taken to the operating theater. The patient was positioned supine. MAC anesthesia was induced. No tourniquet used. B/L LE prepped and draped in normal sterile fashion. IV Vanco, cefepime scheduled on floor. IV clindamycin infused. Right second toe amputation: Attention was directed to the second toe where a fishmouth incision was mapped out in alignment with the prior hallux amputation scar. Diabetic foot ulcer noted on the dorsal aspect of the PIPJ extending full-thickness to deep fascia, 1.8 x 1.4 x 0.2cm. The second toe was disarticulated from the second metatarsal. Toe was sent for path and bone culture. Cortical erosion appeared to be isolated to the base of the middle phalanx and head of the distal phalanx. Second metatarsal head intact, see op findings for details. Wound flushed with gentamicin irrigation. Wound explored and no sinus tracking or signs of infection noted proximally within the wound. Vanco powder inserted. Vicryl used to cover second metatarsal head. Prolene used to reapproximate skin. B/L wide excisional wound debridement: See operative finding for details of sharp excisional full-thickness debridement of b/l 5th metatarsal DFU. Right fifth metatarsal base resection with open bone biopsy: Attention then directed to the base of the fifth met where a DFU was noted. See operative finding. Sharp excisional full-thickness wound debridement had been performed. Decision was made to proceed with an ulcer excision with the metatarsal base resection due to the lack of bleeding from the wound and concern for underlying osteomyelitis. 15 blade was used to make an elliptical incision mapped out over the ulcer which was resected full-thickness down to the level of the fifth metatarsal bone. Fifth metatarsal had some early cortical erosions noted. Saw was used to transect the fifth metatarsal base. A piece was sent for bone culture and for bone pathology. Left fifth metatarsal partial amputation: Attention was directed to the base of the fifth metatarsal where a DFU was noted. CT had obvious bone changes consistent with osteomyelitis noted. Ulcer previously debrided as above. 15 blade used to make an elliptical incision over the ulcer which was resected full-thickness down to level of the fifth metatarsal bone. Ulcer sent for tissue culture. Underlying bone was irregular. A piece was sent and transected for bone culture. What appeared to be good healthy margin was transected and sent for path margin. All wounds were flushed with gentamicin irrigation and a pulse lavage. Area is reexplored and no further signs of infection noted. The left cuboid was visible and appeared to be intact with no obvious signs of infection. Vancomycin powder inserted into both the left and right fifth met open wound sites. Clean 15-blade, curette used to debride skin edges and there was minimal but some bleeding noted. No further signs of infection. Vancomycin powder inserted prior to closure. Vicryl used to reapproximate deep tissue over bone. Skin was reapproximated with Prolene and skin salty. There was good soft tissue closure. No exposed bone noted. 15 cc 0.5% marcaine plain was injected at the end of the case to each forefoot/ankle (30cc total). Skin was cleansed. Vanco powder to skin, betadine soaked 4x4's followed by dry sterile dressing applied to each foot. The patient tolerated the procedure and local anesthesia well, without complications. The patient was awoken from anesthesia and transferred to recovery with vital signs stable and neurovascular status intact. Materials: Prolene, skin salty, 1g vancomycin powder Plan: B/L foot x-rays 3 views post-op amp. -Transfer back to floor -Continue IV abx -Discussed with hospitalist: defer mgmt of IV abx, blood transfusion, right knee wound to hosp team -Rec PT evaluation for possible SNF (lives alone, does not drive, [facility]) -PWB to heels in post op shoes, walker -Needs post op shoes -Plan for Podiatry dressing change in am Condition: stable Disposition: floor Specimens:: Micro: Right 2nd toe culture Right 5h metatarsal BCx Left 5th metatarsal BCx Path: Right 2nd toe Right 5h metatarsal bone Left 5th metatarsal bone Complications:: None
[2024-10-23] MEDS: GENTAMICIN 80 MG/2 ML VIAL (08:10)
[2024-10-23] MEDS: VANCOMYCIN 1000MG VIAL 1000 MG (08:55)
[2024-10-23] MEDS: BUPIVACAINE 0.5% 30ML VIAL 150 MG (09:05)
--- NOTE | 2024-10-23 09:38 | XR_ITS ---
FINAL REPORT CLINICAL HISTORY: s/p 5th met partial amp COMPARISON: 10/20/2024 FINDINGS: AP, oblique and lateral views of the left foot were obtained. There has been interval resection of the proximal half of the left 5th metatarsal. There is no other acute osseous abnormality. Surgical skin salty are noted at the lateral midfoot. Soft tissue edema is likely postoperative. IMPRESSION: Postoperative changes without acute osseous abnormality of the left foot. Reviewed, Interpreted and Dictated by Myra Meredith MD Transcribed by Justyna Pabon Authenticated and . [facility]
--- NOTE | 2024-10-23 09:38 | XR_ITS ---
FINAL REPORT CLINICAL HISTORY: s/p R 2nd toe amp, 5th met resection COMPARISON: CT 10/22/2024 FINDINGS: AP, oblique and lateral views of the right foot were obtained. There has been interval amputation of the great toe and 2nd toe at the MTP joint. There has been interval removal of the base of the 5th metatarsal. Fracture of the distal 5th metatarsal is unchanged from prior CT scan. The hardware is unchanged. Metallic foreign body in the plantar soft tissues of the forefoot is unchanged from CT scan. IMPRESSION: Amputation of the 1st and 2nd digits and base of the 5th metatarsal since previous CT scan. No immediate complications. Reviewed, Interpreted and Dictated by Myra Meredith MD Transcribed by Justyna Pabon Authenticated and [facility]
--- NOTE | 2024-10-23 09:41 | EXP.ANES.I ---
[facility] Anesthesia Record Part I Anesthesia Record I Intake, IV Amount: 800 Hydration: Adequate Estimated blood loss (mL): 10 Urine output (mL): 0 Blood Products used (#): none Blood Pressure: 103/59 SaO2: 93 Pulse Rate: 72 Airway Patency: Patent Respiratory Rate: 16 Temperature: 97.4 F Patient is:: Drowsy and Stable Stable to PACU at:: 09:40
--- NOTE | 2024-10-23 10:57 | P.PN_ITS ---
Subjective Subjective Date: 10/23/24 Time: 10:45 Principal diagnosis: PAD, R 2nd toe OM, L 5th metatarsal OM Interval history: This is a 64-year-old female who presented to the emergency department with shortness of breath and foot pain/edema and a foot wound. The patient was found to have an acute on chronic exacerbation of HFrEF. She has been treated with IV Lasix. She was also found to have osteomyelitis of her right second toe and her left fifth metatarsal. The patient had an abnormal ELLIE and underwent runoff yesterday with stenting to the right common iliac artery and angioplasty to the distal right SFA and right popliteal arteries. She tolerated those procedures well. This morning the patient has been taken down for right second toe amputation, right fifth metatarsal partial resection with biopsy and left fifth partial metatarsal amputation/resection as well as bilateral foot wound excision and debridement with ulcer excision. This morning following her surgery she denies any chest pain or pressure. She states that her shortness of breath has significantly improved and she is feeling much better. She states her lower extremity edema is better. She denies any fever, chills, nausea, vomiting, diarrhea, PND orthopnea. Exam Data for Last 24 hours Vital signs and Labs for Last 24 Hours: Temp Pulse Resp BP Pulse Ox O2 Del Method O2 Flow Rate 97.6 F 74 20 134/71 96 Room Air 2 10/23/24 10:20 10/23/24 10:20 10/23/24 10:20 10/23/24 10:20 10/23/24 10:20 10/23/24 10:20 10/22/24 20:00 Laboratory Results - last 24 hr 10/20/24 09:55: Crossmatch (AHG) See Detail 10/22/24 01:27: POC Glucose 156 H 10/22/24 03:04: POC Glucose 130 H 10/22/24 05:33: POC Glucose 79 10/22/24 11:45: POC Glucose 57 L 10/22/24 15:26: Activated Clotting Time 267 H* 10/22/24 16:47: POC Glucose 125 H 10/22/24 20:27: POC Glucose 152 H 10/23/24 00:34: POC Glucose 52 L 10/23/24 02:01: POC Glucose 117 H 10/23/24 05:32: WBC 7.0, RBC 2.40 L, Hgb 6.8 L*, Hct 22.3 L, MCV 92.9, MCH 28.3, MCHC 30.5 L, RDW 21.6 H, Plt Count 323, MPV 9.0, Neut % (Auto) 60.3, Lymph % (Auto) 27.6, [place] % (Auto) 8.7, Eos % (Auto) 2.1, Baso % (Auto) 0.4, Neut # (Auto) 4.2, Lymph # (Auto) 1.9, [place] # (Auto) 0.6, Eos # (Auto) 0.2, Baso # (Auto) 0.0, Sodium 131 L, Potassium 4.1, Chloride 101, Carbon Dioxide 25, Anion Gap 9.1, BUN 21 H, Creatinine 0.80, Estimated Creat Clear 68, Estimated GFR 73, Est GFR ( Amer) 88, Glucose 266 H D, Calcium 8.3 L, Total Bilirubin 0.5, AST 31, ALT 11 L D, Alkaline Phosphatase 90, Total Protein 5.9 L, Albumin 2.9 L D, Globulin 3.0, Albumin/Globulin Ratio 1.0 L 10/23/24 06:00: POC Glucose 192 H I & O for Last 24 hours: Intake & Output 10/20/24 10/21/24 10/22/24 10/23/24 23:59 23:59 23:59 23:59 Intake Total 2020 / 2260 720 / 780 160 / 160 800 / 800 Output Total 3450 / 3450 2250 / 2250 2700 / 2700 200 / 200 Balance -1430 / -1190 -1530 / -1470 -2540 / -2540 600 / 600 Weight 176 lb 9.6 oz 168 lb 11.2 oz 165 lb 9.286 oz 163 lb 3.2 oz Microbiology Reports for the Last 24 Hours: Microbiology 10/22/24 07:43 Toe,Second Right Gram Stain - Final 10/22/24 07:43 Toe,Second Right Wound Culture - Preliminary 10/22/24 07:52 Foot,Left - Wound Gram Stain - Final 10/22/24 07:52 Foot,Left - Wound Wound Culture - Preliminary Gram Positive Cocci Narrative: Runoff shows: Peripheral artery disease as described above Severe stenosis in the right ostial SFA which is best managed medically as it involves the bifurcation of the profunda femoris Severe distal SFA disease and right popliteal artery disease as described above with successful intravascular lithotripsy followed by balloon angioplasty Persistent severe disease in the right PT trunk with subtotally occluded right anterior tibialis artery which reconstitutes via the peroneal artery distally and supplies a dorsalis pedis Patent two-vessel runoff below the knee on the right PLAN 1. Aspirin plus Xarelto 2.5 twice daily 2. The right lower extremity can be operated on at ankle and foot surgery's discretion. There has been significant increases in inflow following stenting of the right common iliac artery and angioplasty of the right SFA and right popliteal artery 3. LDL less than 55 achieved with high intensity statin 4. Physical therapy 5. Rehabilitation Constitutional Constitutional: no acute distress and average body habitus *Routine HEENT Exam Head: Present normocephalic and atraumatic ENT: Present mucous membranes moist *Routine Neck Exam Neck: Present supple, full ROM and normal carotid upstroke; Absent JVD, carotid bruit or lymphadenopathy *Routine Respiratory Exam Respiratory: Present CTA bilaterally, normal respiratory effort, able to speak in complete sentences and symmetric chest movement *Routine Cardiovascular Exam Cardiovascular: Present RRR, Normal S1 and Normal S2; Absent murmur or gallop *Routine Abdominal Exam Abdominal: Present soft and normoactive bowel sounds; Absent tenderness, distended or organomegaly *Routine Extremities Exam Extremities: Present full ROM, pulses intact, normal capillary refill and amputation; Absent cyanosis, clubbing or edema *Routine Skin Exam Skin: Present intact and warm; Absent erythema *Routine Neurological Exam Neurological: Present alert and oriented X3; Absent sensory deficit or motor deficit Routine Psychiatric Exam Psychiatric: Present normal affect Progress Note: A&P Assessment and plan (1) Peripheral arterial disease: Status: Acute (2) Dyspnea: Status: Acute (3) CAD (coronary atherosclerotic disease): Status: Acute (4) Pulmonary edema: Status: Acute (5) Acute on chronic systolic heart failure: Status: Acute (6) Cellulitis of foot: Status: Acute (7) Iron deficiency: Status: Acute (8) T2DM (type 2 diabetes mellitus): Status: Acute (9) Hyperlipidemia: Status: Acute (10) 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: Status: Acute (11) Decreased pedal pulses: Status: Acute (12) Hypertension: Status: Acute (13) Ulcer of second toe of right foot: Status: Acute (14) Abnormal ankle brachial index (ELLIE): Status: Acute (15) Osteomyelitis: Status: Acute Assessment and Plan Assessment and Plan for All Diagnoses:: Plan: 1. The patient was admitted to the hospital and found to have acute on chronic exacerbation of HFrEF as well as an ulcer of the second toe of the right foot. The patient was diuresed with IV Lasix due to her acute on chronic HFrEF. She states her shortness of breath is significantly improved. She has a -2540 fluid balance over night. Will stop IV Lasix and start her on Lasix 80 mg p.o. twice daily for continued diuresis. We will have a low threshold to switch her back over to IV Lasix since she is getting blood transfusions today. 2. Continue Coreg, lisinopril, spironolactone for HFrEF as well. 3. Once she is more euvolemic we will start her on Jardiance or Farxiga for the HFrEF. 4. Echocardiogram shows her ejection fraction is 40% which is unchanged from 2022 LV gram. 5. The patient underwent a bilateral iliofemoral runoff yesterday due to an abnormal ELLIE and poorly healing wounds on her feet. The patient had a bare- metal stent placed to the right common iliac artery. She also had lithotripsy and balloon angioplasty to the distal right SFA and right popliteal arteries. The patient had three-vessel runoff to the foot on the left with no intervention on the left. Inflow was significantly increased with the stenting and angioplasty so wound healing should be significantly improved. 6. The patient went to the OR today and had amputation of her right second toe as well as partial amputation of the right fifth metatarsal with biopsy and partial amputation of the lef fifth metatarsal as well. She had bilateral foot wound debridement and ulcer excision. Will defer wound management to podiatry. 7. Coronary artery disease is likely stable. Continue Plavix. 8. Her blood pressure is well-controlled. 9. Her LDL goal is less than 55. LDL is 34. She is on a statin. 10. Further recommendations will be made pending the patient's response to treatment. Thank you for the opportunity to help participate in the care of this patient. All recommendations and orders are per Dr. Levine.
[2024-10-23] MEDS: buPROPion HCl SR 150MG TAB 150 MG PO ×2 (11:06→20:42)
[2024-10-23] MEDS: SENNA 8.6MG TABLET 17.2 MG PO (11:07)
[2024-10-23] MEDS: CLOPIDOGREL 75MG TAB 75 MG PO (11:07)
[2024-10-23] MEDS: CITALOPRAM 20MG TABLET 20 MG PO (11:07)
[2024-10-23] MEDS: ALLOPURINOL 100MG TABLET 100 MG PO (11:08)
[2024-10-23] MEDS: PRAMIPEXOLE 1MG TAB 0.5 MG PO (11:09)
[2024-10-23] MEDS: SPIRONOLACTONE 25MG TABLET 25 MG PO (11:09)
[2024-10-23 11:13] LABS: Hemoglobin 6.8 g/dL (12.2-16.2)
[2024-10-23] MEDS: FUROSEMIDE 80 MG TABLET PO ×2 (11:16→18:00)
[2024-10-23] MEDS: VANCOMYCIN HCL 1,250 MG in 0.9 % SODIUM CHLORIDE 250 ML 125 MG IV (11:16)
[2024-10-23 11:21] LABS: Chol/HDL Ratio 2.7 (1-3.5); Cholesterol 96 mg/dl (140-200); HDL Cholesterol 35 mg/dl (40-60); Iron 74 ug/dL (37-170); Triglycerides 121 mg/dl (30-150); VLDL Cholesterol 24 mg/dL (0-40)
[2024-10-23 11:30] LABS: Total Iron Binding Capacity 305 ug/dL (265-497)
[2024-10-23 11:32] LABS: Direct LDL Cholesterol 34.02 mg/dL (100-129)
[2024-10-23] MEDS: APAP/HYDROCODONE 325MG/7.5MG TAB 1 TAB PO (11:51)
[2024-10-23] MEDS: GABAPENTIN 800MG TABLET 800 MG PO ×2 (11:51→18:00)
[2024-10-23 11:54] LABS: POC Glucose,Bedside 72 (70-110)
[2024-10-23 11:57] LABS: Ferritin 216 ng/ml (11.1-264)
--- NOTE | 2024-10-23 13:41 | EXP.ANES.II ---
[facility] Anesthesia Record Part II Anesthesia Record Part II Discharge Time: 10:10 Destination: Medical Surgical Department PACU nurse assessment reviewed?: Yes Patient Condition:: Good Anesthesia Complications:: None Swallowing reflex intact?: Yes Airway Patency: Patent Cyanosis?: No Blood Pressure: 112/65 SaO2: 98 Respiratory Rate: 16 Pulse Rate: 72 Temperature: 98.6 F Mental Status: Alert & Oriented Pain level:: 0 Nausea and/or vomitting:: None Intake, IV Amount: 0 Hydration: Adequate
[2024-10-23 14:27] LABS: Occult Blood,Stool Negative (Negative)
[2024-10-23 16:56] LABS: Hemoglobin 7.3 g/dL (12.2-16.2)
--- NOTE | 2024-10-23 17:40 | PC.NURSE ---
Bladder scanned patient per md request, >1400. Patient able to sit on bedside commode and voided 400 ml. Re-bladder scanned and found to havbe 1245 post void. MD made aware, ordered to straight cath patient. Lung sounds clear. VS stable.
[2024-10-23] MEDS: HYDROCODONE 10MG/APAP 325MG TAB 1 TAB PO (18:01)
--- NOTE | 2024-10-23 18:16 | PC.NURSE ---
patient tolerated straight cath well, 1200 ml out
[2024-10-23 18:59] LABS: POC Glucose,Bedside 178 (70-110)
[2024-10-23] MEDS: ATORVASTATIN 40MG TABLET 40 MG PO (20:42)
[2024-10-23] MEDS: AMITRIPTYLINE 50MG TABLET 50 MG PO (20:42)
[2024-10-23] MEDS: HEPARIN SODIUM 5,000 UNIT/ML VIAL 5000 UNIT SUBCUT (20:43)
--- NOTE | 2024-10-23 21:03 | P.PN_ITS ---
Subjective *Date: 10/23/24 *Time: 21:03 Exam Data for Last 24 hours Vital signs and Labs for Last 24 Hours: Temp Pulse Resp BP Pulse Ox O2 Del Method O2 Flow Rate 97.8 F 75 18 89/51 L 94 L Room Air 2 10/23/24 20:00 10/23/24 20:00 10/23/24 20:00 10/23/24 20:00 10/23/24 20:00 10/23/24 20:00 10/22/24 20:00 Laboratory Results - last 24 hr 10/20/24 09:55: Crossmatch (AHG) See Detail 10/22/24 20:27: POC Glucose 152 H 10/23/24 00:34: POC Glucose 52 L 10/23/24 02:01: POC Glucose 117 H 10/23/24 05:32: WBC 7.0, RBC 2.40 L, Hgb 6.8 L*, Hct 22.3 L, MCV 92.9, MCH 28.3, MCHC 30.5 L, RDW 21.6 H, Plt Count 323, MPV 9.0, Neut % (Auto) 60.3, Lymph % (Auto) 27.6, [place] % (Auto) 8.7, Eos % (Auto) 2.1, Baso % (Auto) 0.4, Neut # (Auto) 4.2, Lymph # (Auto) 1.9, [place] # (Auto) 0.6, Eos # (Auto) 0.2, Baso # (Auto) 0.0, Sodium 131 L, Potassium 4.1, Chloride 101, Carbon Dioxide 25, Anion Gap 9.1, BUN 21 H, Creatinine 0.80, Estimated Creat Clear 68, Estimated GFR 73, Est GFR ( Amer) 88, Glucose 266 H D, Calcium 8.3 L, Iron 74, TIBC 305, Iron Saturation 24.92023, Ferritin 216 D, Total Bilirubin 0.5, AST 31, ALT 11 L D, Alkaline Phosphatase 90, Total Protein 5.9 L, Albumin 2.9 L D, Globulin 3.0, Albumin/Globulin Ratio 1.0 L, Triglycerides 121, Cholesterol 96 L, LDL Cholesterol Direct 34.02 L, VLDL Cholesterol 24, HDL Cholesterol 35 L, Cholesterol/HDL Ratio 2.7 10/23/24 06:00: POC Glucose 192 H 10/23/24 10:45: Hgb 6.8 L*, Hct 23.0 L, Blood Type A Positive, Antibody Screen Negative, Crossmatch (AHG) See Detail 10/23/24 11:05: POC Glucose 72 10/23/24 11:40: Stool Occult Blood Negative 10/23/24 16:17: POC Glucose 178 H 10/23/24 16:48: Hgb 7.3 L, Hct 24.0 L I & O for Last 24 hours: Intake & Output 10/20/24 10/21/24 10/22/24 10/23/24 23:59 23:59 23:59 23:59 Intake Total 2020 / 2260 720 / 780 160 / 160 1300 / 1300 Output Total 3450 / 3450 2250 / 2250 2700 / 2700 1400 / 1400 Balance -1430 / -1190 -1530 / -1470 -2540 / -2540 -100 / -100 Weight 80.104 kg 76.521 kg 75.106 kg 74.026 kg Microbiology Reports for the Last 24 Hours: Microbiology 10/19/24 20:35 Blood Blood Culture - Preliminary NO GROWTH AFTER 4 DAYS 10/22/24 07:43 Toe,Second Right Gram Stain - Final 10/22/24 07:43 Toe,Second Right Wound Culture - Preliminary 10/22/24 07:52 Foot,Left - Wound Gram Stain - Final 10/22/24 07:52 Foot,Left - Wound Wound Culture - Preliminary Gram Positive Cocci Constitutional Constitutional: no acute distress *Routine HEENT Exam Head: Present normocephalic Eye: Present EOMI and PERRL ENT: Present mucous membranes moist *Routine Neck Exam Neck: Present supple; Absent lymphadenopathy *Routine Respiratory Exam Respiratory: Present CTA bilaterally *Routine Cardiovascular Exam Cardiovascular: Present RRR *Routine Abdominal Exam Abdominal: Present soft and normoactive bowel sounds; Absent tenderness *Routine Extremities Exam Extremities: Absent cyanosis, clubbing or edema *Routine Skin Exam Skin: Present warm; Absent rash *Routine Neurological Exam Neurological: Present alert and oriented X3 Assessment and Plan *Assessment and plan (1) Pulmonary edema: Status: Acute Qualifiers: Chronicity: acute Qualified Code(s): J81.0 - Acute pulmonary edema Category: Medical Code(s): J81.1 - Chronic pulmonary edema (2) Acute on chronic systolic heart failure: Status: Acute Category: Medical Code(s): I50.23 - Acute on chronic systolic (congestive) heart failure (3) Osteoarthritis of toe: Status: Acute Category: Medical Code(s): M19.079 - Primary osteoarthritis, unspecified ankle and foot (4) Cellulitis of foot: Status: Acute Category: Medical Code(s): L03.119 - Cellulitis of unspecified part of limb (5) Iron deficiency: Status: Acute Category: Medical Code(s): E61.1 - Iron deficiency (6) T2DM (type 2 diabetes mellitus): Status: Acute Qualifiers: Diabetes mellitus correction insulin use: with correction use Diabetes mellitus complication status: with diabetic arthropathy Diabetes mellitus complication detail: with neuropathic arthropathy Qualified Code(s): E11.610 - Type 2 diabetes mellitus with diabetic neuropathic arthropathy; Z79.4 - correction (current) use of insulin Category: Medical Code(s): E11.9 - Type 2 diabetes mellitus without complications (7) Hyperlipidemia: Status: Acute Qualifiers: Hyperlipidemia type: unspecified Qualified Code(s): E78.5 - Hyperlipidemia, unspecified Category: Medical Code(s): E78.5 - Hyperlipidemia, unspecified (8) Peripheral arterial disease: Status: Acute Category: Medical Code(s): I73.9 - Peripheral vascular disease, unspecified (9) 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: Status: Acute Qualifiers: Fracture type: closed Fracture alignment: nondisplaced Qualified Code(s): S92.355K - Nondisplaced fracture of fifth metatarsal bone, left foot, subsequent encounter for fracture with nonunion Category: Medical Code(s): S92.352K - Displaced fracture of fifth metatarsal bone, left foot, subsequent encounter for fracture with nonunion (10) Decreased pedal pulses: Status: Acute Category: Medical Code(s): R09.89 - Other specified symptoms and signs involving the circulatory and respiratory systems Plan 64-year-old female who presented with shortness of breath. Had prolonged course of treatment at over the past few months for infection and knee along with amputation of toe. Presented with new oxygen requirement due to her hypoxia. Appears frankly volume overloaded. Initiated on aggressive diuresis and supplemental oxygen. Podiatry and cardiology assisting with care. Planning for runoff of lower extremity today. Anticipate surgery tomorrow. Continue antibiotics for infection. Necessitates inpatient care. Problems addressed as follows #Pulmonary edema #Acute on chronic systolic congestive heart failure # Hypertension # Hyperlipidemia - Bilateral lower extremity edema, chest x-ray with pulmonary edema. Known history of systolic heart failure per chart review at (unknown EF) - Initiated on IV diuresis with proBNP of >30,000. Continue Lasix 80 mg IV twice daily - Echo obtained with EF reduced to 40%, grade 2 diastolic dysfunction present. - Continue home medications for heart failure and hypertension including Lipitor 40 mg nightly, carvedilol 12 and half milligrams twice daily, Plavix 75 mg daily, lisinopril 40 mg nightly, spironolactone 25 mg daily - Goal sats greater 90%, currently on room air. - Cardiology consulted for PAD, s/p angioplasty of distal SFA and right popliteal artery. #Osteoarthritis of toe, right #Cellulitis of foot right #PAD Prior history of MRSA osteomyelitis. Recent septic knee on the same side. Mild mottling noted but patient reports this is chronic. Toe ulceration worse per patient's report. Continue vancomycin IV, close monitoring for toxicity Podiatry consulted, s/p right second toe amputation, fifth metatarsal bone resection, left fifth metatarsal partial amputation. ? Follow-up bone cultures. - Repeat CBC, CMP, magnesium ordered for the morning. - Hydrocodone 7.5 mg as needed every 6 hours along with gabapentin as needed 800 mg every 6 hours monitor for toxicity. Patient's home medications locked up. #Iron deficiency anemia: #Acute on chronic anemia - Hemoglobin this morning 6.8, transfused with 1 unit with improvement to 7.3. - Transfusion threshold hemoglobin less than 7 - 200 mg IV Venofer administered during admission.. #T2DM: Discontinued Lantus today due to persistent hypoglycemia requiring multiple amps of D50. Continue SSI. ? Hemoglobin A1c 5.5, though in the setting of anemia hemoglobin 6.8. ? Follow-up blood sugars. #Hypothyroidism: Continue home levothyroxine 200 mcg daily. ? Follow-up TFTs. Continue home gabapentin 800 mg Continue hydrocodone increased to 7.5 mg every 6 hours as needed for pain control. Home regimen is 10 mg. Due to oversedation, will administer slightly smaller dose. High risk for polypharmacy and oversedation Continue stool softeners with Senokot daily for constipation Full code Diabetic diet Lovenox 30 mg
[2024-10-24] VITALS: BP 91/38; PULSE 80; PULSE 84; RESP 18; TEMP 36.9; O2SAT 96
[2024-10-24 03:45] LABS: POC Glucose,Bedside 115 (70-110)
[2024-10-24 04:00] VITALS: BP 119/58; PULSE 70; PULSE 83; RESP 20; TEMP 36.5; O2SAT 98; BMI 30.4
[2024-10-24] MEDS: DEXTROSE 50% 50ML SYRINGE (CRASH CART) 50 ML IVP (05:25)
[2024-10-24 05:37] LABS: POC Glucose,Bedside 198 (70-110)
--- NOTE | 2024-10-24 06:28 | PC.NURSE ---
Pt. has not voided all night. Bladder scan show 600 ml in bladder. Pt. straight cathed with a 14 [place] straight cath. Drained 600 ML from bladder. Pt. tolerarated well. . Pt. also had very low blood sugar this am POC glucose RRLOW, 1 amp D50 given IV Pt. very diaphoreticand confused. after D50 Glucose 198, than 149. Pt. regained alertness and was able to answer questions appropriately.
[2024-10-24] MEDS: HYDROCODONE 10MG/APAP 325MG TAB 1 TAB PO ×4 (06:57→23:59)
[2024-10-24] MEDS: LEVOTHYROXINE 100MCG (0.1MG) TAB 200 MCG PO (06:57)
[2024-10-24 07:04] LABS: Free T4 (Free Thyroxine) 0.87 ng/dl (0.78-2.19)
--- NOTE | 2024-10-24 07:07 | P.PN_ITS ---
Subjective *Date: 10/25/24 *Time: 08:09 Interval history: 10/24/24: POD#1 64-year old female, had B/L DFU, right second toe osteomyelitis, left fifth metatarsal osteomyelitis was taken to surgery yesterday, 10/23/24. S/P Right 2nd toe amputation, Right 5th metatarsal partial resection, open bone biopsy, Left 5th partial metatarsal amputation/resection, Bilateral foot wound wide excisional debridement with ulcer excision. Bone cultures pending. Patient resting without complaints of pain. She said her sugar dropped early this morning and had to get glucose to bring it up, she is feeling much better now. Ortho Exam (Inpt) Vital signs and Labs for Last 24 Hours: Temp Pulse Resp BP Pulse Ox O2 Del Method O2 Flow Rate 97.7 F 83 20 119/58 L 98 Room Air 2 10/24/24 04:00 10/24/24 04:00 10/24/24 04:00 10/24/24 04:00 10/24/24 04:00 10/24/24 04:00 10/22/24 20:00 Laboratory Results - last 24 hr 10/20/24 09:55: Crossmatch (AHG) See Detail 10/23/24 05:32: WBC 7.0, RBC 2.40 L, Hgb 6.8 L*, Hct 22.3 L, MCV 92.9, MCH 28.3, MCHC 30.5 L, RDW 21.6 H, Plt Count 323, MPV 9.0, Neut % (Auto) 60.3, Lymph % (Auto) 27.6, [place] % (Auto) 8.7, Eos % (Auto) 2.1, Baso % (Auto) 0.4, Neut # (Auto) 4.2, Lymph # (Auto) 1.9, [place] # (Auto) 0.6, Eos # (Auto) 0.2, Baso # (Auto) 0.0, Sodium 131 L, Potassium 4.1, Chloride 101, Carbon Dioxide 25, Anion Gap 9.1, BUN 21 H, Creatinine 0.80, Estimated Creat Clear 68, Estimated GFR 73, Est GFR ( Amer) 88, Glucose 266 H D, Calcium 8.3 L, Iron 74, TIBC 305, Iron Saturation 24.58389, Ferritin 216 D, Total Bilirubin 0.5, AST 31, ALT 11 L D, Alkaline Phosphatase 90, Total Protein 5.9 L, Albumin 2.9 L D, Globulin 3.0, Albumin/Globulin Ratio 1.0 L, Triglycerides 121, Cholesterol 96 L, LDL Cholesterol Direct 34.02 L, VLDL Cholesterol 24, HDL Cholesterol 35 L, Cholesterol/HDL Ratio 2.7 10/23/24 10:45: Hgb 6.8 L*, Hct 23.0 L, Blood Type A Positive, Antibody Screen Negative, Crossmatch (AHG) See Detail 10/23/24 11:05: POC Glucose 72 10/23/24 11:40: Stool Occult Blood Negative 10/23/24 16:17: POC Glucose 178 H 10/23/24 16:48: Hgb 7.3 L, Hct 24.0 L 10/23/24 20:35: POC Glucose 115 H 10/24/24 05:29: POC Glucose 198 H 10/24/24 05:42: TSH 21.50 H I & O for Labs for Last 24 Hours: Intake & Output 10/21/24 10/22/24 10/23/24 10/24/24 23:59 23:59 23:59 23:59 Intake Total 720 / 720 160 / 160 1300 / 1300 240 / 240 Output Total 2250 / 2250 2700 / 2700 1400 / 1400 Balance -1530 / -1530 -2540 / -2540 -100 / -100 240 / 240 Weight 168 lb 11.2 oz 165 lb 9.286 oz 163 lb 3.2 oz 165 lb 6 oz Microbiology Reports for the Last 24 Hours: Microbiology 10/22/24 07:52 Foot,Left - Wound Gram Stain - Final 10/22/24 07:52 Foot,Left - Wound Wound Culture - Final Staphylococcus aureus 10/19/24 20:35 Blood Blood Culture - Preliminary NO GROWTH AFTER 4 DAYS 10/22/24 07:43 Toe,Second Right Gram Stain - Final 10/22/24 07:43 Toe,Second Right Wound Culture - Preliminary Constitutional: Present no acute distress and cooperative Head: Present normocephalic Eyes: Present as per HPI Neck: Present trachea midline Respiratory: Present normal respiratory effort Cardiac: Present pedal pulses present; Absent posterior tibial pulses present Comment:: S/P runoff 10/23/24; her right DP is palpable this morning, her left DP was weakly palpable. Rectal (female): Present deferred (female): Present deferred Extremities: Present edema (S/P Right hallux amp, with right foot hardware, R 2nd toe amp. R DFU to lateral foot, base of 5th met, Left partial 5th met amp. ) Skin: Present erythema (improving), dry, lesions and wounds Comment:: S/P Right 2nd toe amputation, Right 5th metatarsal partial resection, open bone biopsy, Left 5th partial metatarsal amputation/resection, Bilateral foot wound wide excisional debridement with ulcer excision. Neuro: Present awake, oriented x 3 and moves all extremities Ankle: bilateral: swelling and bilateral: decreased ROM Feet/Toes: bilateral: amputation (RH amp, new R2nd amp, Left 5th partial metatarsal amputation/resection,), bilateral: bunion, bilateral: hammer toe, bilateral: nail abnormalities, bilateral: swelling (R 2nd toe amp, Left 5th partial metatarsal amputation/resection), bilateral: tenderness, bilateral: wound (B/L foot DFU; R2nd ampl L5th partial met amp.) and bilateral: decreased ROM Assessment and Plan *Assessment and plan (1) Osteoarthritis of toe: Status: Acute Category: Medical Code(s): M19.079 - Primary osteoarthritis, unspecified ankle and foot (2) Cellulitis of foot: Status: Acute Category: Medical Code(s): L03.119 - Cellulitis of unspecified part of limb (3) T2DM (type 2 diabetes mellitus): Status: Acute Qualifiers: Diabetes mellitus complication detail: with neuropathic arthropathy Diabetes mellitus complication status: with diabetic arthropathy Diabetes mellitus superintendent terminal insulin use: with half-way use Qualified Code(s): E11.610 - Type 2 diabetes mellitus with diabetic neuropathic arthropathy; Z79.4 - correction (current) use of insulin Category: Medical Code(s): E11.9 - Type 2 diabetes mellitus without complications (4) Edema of both lower extremities: Status: Acute Category: Medical Code(s): R60.0 - Localized edema (5) Foot ulcer, left: Status: Acute Qualifiers: Non-pressure ulcer stage: with muscle involvement without evidence of necrosis Qualified Code(s): L97.525 - Non-pressure chronic ulcer of other part of left foot with muscle involvement without evidence of necrosis Category: Medical Code(s): L97.529 - Non-pressure chronic ulcer of other part of left foot with unspecified severity (6) Peripheral arterial disease: Status: Acute Category: Medical Code(s): I73.9 - Peripheral vascular disease, unspecified (7) CAD (coronary atherosclerotic disease): Status: Acute Qualifiers: Associated angina: with other forms of angina Coronary Disease- Associated Artery/Lesion type: [place] artery [place] vs. 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 (10) Neuropathy: Status: Acute Category: Medical Code(s): G62.9 - Polyneuropathy, unspecified (11) Presence of retained hardware: Status: Acute Category: Medical Code(s): Z96.9 - Presence of functional implant, unspecified (12) Ulcer of second toe of right foot: Status: Acute Qualifiers: Non-pressure ulcer stage: with necrosis of bone Qualified Code(s): L97.514 - Non-pressure chronic ulcer of other part of right foot with necrosis of bone Category: Medical Code(s): L97.519 - Non-pressure chronic ulcer of other part of right foot with unspecified severity (13) Decreased pedal pulses: Status: Acute Category: Medical Code(s): R09.89 - Other specified symptoms and signs involving the circulatory and respiratory systems (14) 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: Status: Acute Qualifiers: Fracture alignment: nondisplaced Fracture type: closed Qualified Code(s): S92.355K - Nondisplaced fracture of fifth metatarsal bone, left foot, subsequent encounter for fracture with nonunion Category: Medical Code(s): S92.352K - Displaced fracture of fifth metatarsal bone, left foot, subsequent encounter for fracture with nonunion (15) History of partial ray amputation of fifth toe of left foot: Status: Acute Category: Surgical Code(s): Z89.422 - Acquired absence of other left toe(s) (16) History of amputation of right second toe: Status: Acute Category: Surgical Code(s): Z89.421 - Acquired absence of other right toe(s) Plan 10/24/24 POD#1 Sx. 10/23/24 S/P Right 2nd toe amputation, Right 5th metatarsal partial resection, open bone biopsy, Left 5th partial metatarsal amputation/resection, Bilateral foot wound wide excisional debridement with ulcer excision. Plan: -Continue IV abx: vancomycin IV, close monitoring for toxicity -Discussed with hospitalist: defer mgmt of IV abx, blood transfusion, right knee wound to hosp team -Rec PT evaluation for possible SNF (lives alone, does not drive, previously at [facility]) -PWB to heels in post op shoes, walker -Needs post op shoes size 8 -Dressing change this morning: Betadine soaked 4x4, dry 4x4, kerlix and esthela wrap -Podiatry will continue to follow while inpatient. -Labs reviewed: wbc 6.9. esr. 119, glucose 126, crp,4.1, protein, 5.8 -All orders per Dr. Finnegan Specimens:: Pending Micro: Right 2nd toe culture Right 5h metatarsal BCx Left 5th metatarsal BCx Path: Right 2nd toe Right 5h metatarsal bone Left 5th metatarsal bone *All orders per Dr Finnegan. -strongly recommend SNF ([facility] previously there) -high risk for postop complications, wound dehiscence, continued/recurrent infection, limb loss, BKA vs AKA -fall risk: b/l DME (left post op shoe, right short fracture boot with walker) -needs PICC, IV abx x6 weeks -Podiatry will plan for dressing
[2024-10-24 07:09] LABS: Vitamin B12 363 pg/mL (239-931)
[2024-10-24 07:55] LABS: Alanine Aminotransferase 12 U/L (12-78); Albumin Level 2.9 g/dl (3.5-5.0); Alkaline Phosphatase 105 U/L (38-126); Anion Gap 7.2 mEq/L (5-15); Aspartate Amino Transferase 29 U/L (14-36); Bilirubin,Total 0.3 mg/dl (0.2-1.3); Blood Urea Nitrogen 27 mg/dl (7-17); Calcium 7.9 mg/dl (8.4-10.2); Carbon Dioxide 26 mmol/L (22.0-30.0); Chloride 105 mmol/L (98-107); Creatinine Clearance Estimated 58 mL/min (50-200); Estimated Glomerular Filt Rate 46 ml/min (>60); GFR (African American) 55 ML/MIN (>60); Globulin 2.9 g/dL (1.3-3.2); Glucose 126 mg/dl (74-100); Potassium 4.2 mmoL/L (3.5-5.1); Sodium 134 mmol/L (136-145); Total Protein,Serum 5.8 g/dl (6.3-8.2)
[2024-10-24 08:00] VITALS: BP 113/68; PULSE 80; PULSE 84; RESP 16; TEMP 36.4; O2SAT 99
[2024-10-24 08:00] LABS: C-Reactive Protein 4.1 mg/L (0-4)
[2024-10-24 08:11] LABS: Basophils % 0.6 % (0.1-2.0); Eosinophils # 0.2 Kmm3 (0.0-0.4); Eosinophils % 2.5 % (0.1-12.0); Hematocrit 22.7 % (37.0-47.0); Immature Granulocytes # 0.05 10^3uL; Immature Granulocytes % 0.7 %; Lymphocytes # 1.8 K/mm3 (0.7-4.5); Lymphocytes % 25.5 % (10-50); Mean Corpuscular HGB Conc 30.8 g/dL (31.8-35.4); Mean Corpuscular Hemoglobin 27.9 pg (27.0-31.2); Mean Corpuscular Volume 90.4 fl (81-99); Monocytes # 0.8 K/mm3 (0.1-1.0); Monocytes % 11.6 % (1.7-9.3); Neutrophils # 4.1 K/mm3 (1.8-7.8); Neutrophils % 59.1 % (37.0-80.0); Nucleated Red Blood Cells # 0 10^3/uL; Nucleated Red Blood Cells % 0 %; Platelet Count 270 K/mm3 (142-424); Red Blood Count 2.51 M/mm3 (4.20-5.40); White Blood Count 6.9 K/mm3 (4.8-10.8)
[2024-10-24] MEDS: ALLOPURINOL 100MG TABLET 100 MG PO (08:49)
[2024-10-24] MEDS: buPROPion HCl SR 150MG TAB 150 MG PO ×2 (08:49→21:29)
[2024-10-24] MEDS: FUROSEMIDE 80 MG TABLET PO ×2 (08:49→17:08)
[2024-10-24] MEDS: SPIRONOLACTONE 25MG TABLET 25 MG PO (08:49)
[2024-10-24] MEDS: CLOPIDOGREL 75MG TAB 75 MG PO (08:49)
[2024-10-24] MEDS: CITALOPRAM 20MG TABLET 20 MG PO (08:50)
[2024-10-24] MEDS: PRAMIPEXOLE 1MG TAB 0.5 MG PO (08:51)
[2024-10-24] MEDS: CARVEDILOL 12.5MG TABLET 12.5 MG PO (08:51)
[2024-10-24] MEDS: SENNA 8.6MG TABLET 17.2 MG PO (08:52)
[2024-10-24 09:00] LABS: Folate 4.62 ng/mL
--- NOTE | 2024-10-24 09:57 | HMH.OTEV ---
OT Inpatient Evaluation Rehab OT IP Evaluation Start: 10/24/24 07:36 Freq: ONCE Status: Active Protocol: Document 10/24/24 09:33 RMARSLAMAR (Rec: 10/24/24 09:56 [facility] [id number]) Rehab OT IP Assessment Subjective History Pt oriented x 3 on arrival. Pt agreeable to engage in therapy evaluation. Pt admitted on 10/19/24 due to cellulitis and pulmonary edema . Pt required Right 2nd toe amputation Right 5th metatarsal partial resection, open bone biopsy, Left 5th partial metatarsal amputation/resection, and Bilateral foot wound wide excisional debridement with ulcer excision on 10/24/23. She is now partial WB on bilateral feet with post-op shoes. History and physical: This is a 64-year-old female with a past medical history of PAD, DM 2, HFrEF, Chronic pain, hyperlipidemia, hypertension, CAD who presents to the emergency department today with complaints of right lower extremity pain and increased shortness of breath. In short, this is a 64-year- old female with recent hospitalization to [facility] for septic knee. She was also found at that time to have MRSA bacteremia. She underwent I&D with orthopedic surgery and followed by infectious disease . She was on linezolid for extended period of time (10/10) . She was also diagnosed with heart failure with reduced EF at that time and hypoxic respiratory failure secondary to pulmonary edema. 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 She has been residing at a rehab facility for the last month and discharged from there several days ago. Today she reports increased pain and swelling to her right knee and right foot with increased shortness of breath and bilateral lower extremity edema. Emergency Department workup notable for hemoglobin hematocrit of 7.6 and 25n ( chronic anemia), ESR of 89, lactic of 2.2, proBNP greater than 30,000. Chest imaging notable for mild CHF. On exam patient does have mild conversational dyspnea and lower extremity edema. Right lower extremity with mild mottling noted to the sole of foot. Patient reports ulceration of her second toe is mildly worse than normal. Foot imaging notable for moderate soft tissue swelling throughout the forefoot as well as second toe erosions suggestive of osteomyelitis Given the above-mentioned findings she will be admitted to hospital service Subjective Prior to being in the hospital , she lived at home and her 14 year old grandson lived with her. Pt claims normally she uses a cane or walker in order to complete functional transfers. She claims to be independent with ADLs and light/simple IADLs. Heavier household tasks she is unable to complete. She does still drive. Pt was able to complete bed mobility and go from supine to sitting at eob with sba. However, she did not have post op shoes in her room in order to attempt functional transfers. Therapist is concerned about her functional transfer ability and maintaining WB status if she returns home and is caregiver to her grandson. Objective Patient Orientation Person,Place,Birthday Right Upper Extremity Gross ROM WFL Left Upper Extremity Gross ROM WFL Bed Mobility bed mobility-scooting,bed mobility - supine/sit Assist Level Supervision/Stand by Rehab OT IP prob,goals,plan Problems Date of Evaluation: 10/24/24 OT IP Problems Bed Mobility,Transfers,Balance ,Self care,Safety Rehab Potential Rehab Potential Good Equipment Needs Assistive Devices Rolling / Wheeled Walker Plan OT intervention Plan Bed Mobility,Transfers,Balance ,Self care,Safety,Therapeutic Exercise OT Plan Frequency Daily Duration LOS Discharge Goals Bed Mobility Ability Standby Assistance Sit to Stand Chair Transfer Ability Minimal x 2 (25% assist) Chair Transfer Ability Minimal x 2 (25% assist) Chair Transfer Technique Stand Pivot Chair Transfer Assistive Devices Rolling Walker Feeding Ability Assist with Tray Set Up Lower Body Dressing Ability Moderate Assistance Upper Body Dressing Ability Minimal Assistance Bathing Ability Moderate Assistance Performing Toilet Hygiene Ability Moderate Assistance Overall Commode/Toilet Transfer Ability Minimal Assistance,Moderate Assistance Discharge Plan OT Discharge Plan Pt will continue to be seen for OT services while at [facility]. At this time, pt would benefit most from short term rehab at [facility] following discharge. Continued skilled therapy is important in order to maintain WB status, improve strength, safety, endurance, and ADL independence in order to reach PLOF. Eval Complexity Eval Charge Codes 21061 - Moderate Complexity PHYSICIAN CERTIFICATION: I certify the specified therapy services for Micheline Hernandez are required, authorized, and reviewed every 30 days.
[2024-10-24 10:13] LABS: Erythrocyte Sedimentation Rate 119 mm/hr (0-30)
--- NOTE | 2024-10-24 10:59 | HMH.PTEV ---
Physical Therapy Evaluation Rehab PT IP Evaluation Start: 10/23/24 09:38 Freq: ONCE Status: Active Protocol: Document 10/24/24 10:34 CHAD (Rec: 10/24/24 10:56 CHAD [id number]) Subjective/History History History 64-year old female, had B/L DFU, right second toe osteomyelitis, left fifth metatarsal osteomyelitis was taken to surgery yesterday, 10/23/24. S/P Right 2nd toe amputation, Right 5th metatarsal partial resection, open bone biopsy, Left 5th partial metatarsal amputation/resection, Bilateral foot wound wide excisional debridement with ulcer excision. Subjective Subjective Pt reports she lives with her 14 y/o grandson and is usually IND with mobility using a RW. Pt reports she has no steps in her home. Pt still drives. Precautions: Pt is PWB BLE with post-op shoes. New diagnosis of cancer in past 12 No months? [facility] How much help from another person do you currently need... Turning from your back to your side None while in a flat bed without using bedrails? Moving from lying on back to sitting on None the side of a flat bed without using bedrails? Moving to and from a bed to a chair ( A lot including a wheelchair)? Standing up from a chair using your arms A lot ? (e.g., wheelchair, bedside chair) Walking in hospital room? Total Climbing 3-5 steps with a railing? Total Mobility Score 14 Mobility Level [facility] Mobility Calculator Mobility 4 Move to chair/ commode Rehab PT IP Eval Objective Appearance Patient Behavior Appropriate,Cooperative Patient Orientation Person,Place Difficulty following instructions none Speech Pattern Clear Ambulation Patient Able to Ambulate No Balance Ability to Arise Able, uses arms to help Sitting Balance Steady, safe Dynamic Standing Balance Ability Normal Transfers Bed Transfer Ability Supervision/Stand by Rehab PT IP prob,goals,plan Problems Date of Evaluation: 10/24/24 PT IP Problems Bed Mobility,Transfers,Gait, Balance,Self care,Safety Rehab Potential Rehab Potential Good Equipment Needs Assistive Devices Wheelchair Plan PT Intervention Plan Bed Mobility,Transfers,Gait, Balance,Self care,Safety, Therapeutic Exercise Other Intervention Plan 1-2 times PT Plan Frequency Daily Duration LOS Discharge Goals Bed Transfer Ability Independent Sit to Stand Chair Transfer Ability Moderate x 1 (50% assist) Discharge Plan PT Discharge Plan Initial PT mobility evaluation limited by BLE PWBing status. Pt was SUP level for bed mobility and demo'd good sitting balance. Pt did not yet have post-operative shoes for gait training order. Pt would likely be w/c level for mobility d/t Bilateral PWBing status. Attempted to contact podiatry to clarify WBing orders and orthotic use. Will attempt to contact again this afternoon. At this time, pt would benefit from skilled inpatient rehab d/t being alone during the day and needing assistance with mobility. PT will continue to follow up with mobility assessment and treatment. Eval Complexity Eval Charge Codes 93986 - Moderate Complexity PHYSICIAN CERTIFICATION: I certify the specified therapy services for Micheline Hernandez are required, authorized, and reviewed every 30 days.
--- NOTE | 2024-10-24 11:38 | EXP.CARD.PN ---
Subjective Subjective Date: 10/24/24 Time: 11:00 Principal diagnosis: PAD, R 2nd toe OM, L 5th metatarsal OM Interval history: This is a 64-year-old female who presented to the emergency department with shortness of breath and foot pain/edema and a foot wound. The patient was found to have an acute on chronic exacerbation of HFrEF. She has been treated with IV Lasix and she was switched over to oral Lasix yesterday and tolerated this well. During this hospitalization she also had poorly healing wounds on her feet with an abnormal ELLIE. She underwent runoff and had a stent placed to her right common iliac artery and lithotripsy and balloon angioplasty to the right distal SFA and popliteal arteries. She tolerated this procedure well. Yesterday she underwent surgery with Dr. Finnegan and had a right second toe amputation as well as partial metatarsal amputations bilaterally with wound debridements bilaterally. This morning she states that she is feeling really good. She denies any chest pain or pressure. She denies any shortness of breath. She states that she does have some pain in her bilateral feet, the left worse than the right but overall she is feeling much better. She denies any fever, chills, nausea, vomiting, diarrhea, PND or orthopnea. Exam Data for Last 24 hours Vital signs and Labs for Last 24 Hours: Temp Pulse Resp BP Pulse Ox O2 Del Method O2 Flow Rate 97.5 F L 84 16 113/68 99 Room Air 2 10/24/24 08:00 10/24/24 08:00 10/24/24 08:00 10/24/24 08:00 10/24/24 08:00 10/24/24 11:00 10/22/24 20:00 Laboratory Results - last 24 hr 10/23/24 05:32: Iron 74, TIBC 305, Iron Saturation 24.19515, Ferritin 216 D 10/23/24 10:45: Blood Type A Positive, Antibody Screen Negative, Crossmatch (AHG) See Detail 10/23/24 11:05: POC Glucose 72 10/23/24 11:40: Stool Occult Blood Negative 10/23/24 16:17: POC Glucose 178 H 10/23/24 16:48: Hgb 7.3 L, Hct 24.0 L 10/23/24 20:35: POC Glucose 115 H 10/24/24 05:29: POC Glucose 198 H 10/24/24 05:42: WBC 6.9, RBC 2.51 L, Hgb 7.0 L, Hct 22.7 L, MCV 90.4, MCH 27.9, MCHC 30.8 L, RDW 22.0 H, Plt Count 270, MPV 9.0, Neut % (Auto) 59.1, Lymph % (Auto) 25.5, [place] % (Auto) 11.6 H, Eos % (Auto) 2.5, Baso % (Auto) 0.6, Neut # (Auto) 4.1, Lymph # (Auto) 1.8, [place] # (Auto) 0.8, Eos # (Auto) 0.2, Baso # (Auto) 0.0, ESR 119 H, Sodium 134 L, Potassium 4.2, Chloride 105, Carbon Dioxide 26, Anion Gap 7.2, BUN 27 H D, Creatinine 1.20 H D, Estimated Creat Clear 58, Estimated GFR 46 L, Est GFR ( Amer) 55 L D, Glucose 126 H, Calcium 7.9 L, Total Bilirubin 0.3, AST 29, ALT 12, Alkaline Phosphatase 105, C-Reactive Protein 4.1 H D, Total Protein 5.8 L, Albumin 2.9 L, Globulin 2.9, Albumin/Globulin Ratio 1.0 L, Vitamin B12 363, Folate 4.62, TSH 21.50 H, Free T4 0.87 I & O for Last 24 hours: Intake & Output 10/21/24 10/22/24 10/23/24 10/24/24 23:59 23:59 23:59 23:59 Intake Total 720 / 780 160 / 160 1300 / 1540 510 / 510 Output Total 2250 / 2250 2700 / 2700 1400 / 1400 Balance -1530 / -1470 -2540 / -2540 -100 / 140 510 / 510 Weight 168 lb 11.2 oz 165 lb 9.286 oz 163 lb 3.2 oz 165 lb 6 oz Microbiology Reports for the Last 24 Hours: Microbiology 10/22/24 07:43 Toe,Second Right Gram Stain - Final 10/22/24 07:43 Toe,Second Right Wound Culture - Preliminary Gram Positive Cocci Gram Positive Cocci#2 Gram Positive Cocci#3 10/23/24 08:17 Foot,Left - Left Bone Culture - Preliminary 10/22/24 07:52 Foot,Left - Wound Gram Stain - Final 10/22/24 07:52 Foot,Left - Wound Wound Culture - Final Staphylococcus aureus 10/19/24 20:35 Blood Blood Culture - Preliminary NO GROWTH AFTER 4 DAYS Constitutional Constitutional: no acute distress and obese *Routine HEENT Exam Head: Present normocephalic and atraumatic ENT: Present mucous membranes moist *Routine Neck Exam Neck: Present supple, full ROM and normal carotid upstroke; Absent JVD, carotid bruit or lymphadenopathy *Routine Respiratory Exam Respiratory: Present CTA bilaterally, normal respiratory effort, able to speak in complete sentences and symmetric chest movement *Routine Cardiovascular Exam Cardiovascular: Present RRR, Normal S1 and Normal S2; Absent murmur or gallop *Routine Abdominal Exam Abdominal: Present soft and normoactive bowel sounds; Absent tenderness, distended or organomegaly *Routine Extremities Exam Extremities: Present full ROM, pulses intact, normal capillary refill and amputation; Absent cyanosis, clubbing or edema *Routine Skin Exam Skin: Present intact and warm; Absent erythema *Routine Neurological Exam Neurological: Present alert and oriented X3; Absent sensory deficit or motor deficit Routine Psychiatric Exam Psychiatric: Present normal affect Progress Note: A&P Assessment and plan (1) Peripheral arterial disease: Status: Acute (2) Abnormal ankle brachial index (ELLIE): Status: Acute (3) CAD (coronary atherosclerotic disease): Status: Acute (4) Pulmonary edema: Status: Acute (5) Acute on chronic systolic heart failure: Status: Acute (6) Osteoarthritis of toe: Status: Acute (7) Cellulitis of foot: Status: Acute (8) Iron deficiency: Status: Acute (9) T2DM (type 2 diabetes mellitus): Status: Acute (10) Hyperlipidemia: Status: Acute (11) 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 The patient was admitted to the hospital and found to have acute on chronic exacerbation of HFrEF as well as an ulcer of the second toe of the right foot and wound to the left foot. The patient was diuresed with IV Lasix. She was switched over to oral Lasix yesterday and tolerated this well. She states her shortness of breath has resolved. Will continue oral Lasix at this time. 2. Continue Coreg, lisinopril, spironolactone for HFrEF as well. 3. Start Jardiance 10 mg daily for HFrEF. 4. Echocardiogram shows her ejection fraction is 40% which is unchanged from 2022 LV gram. 5. The patient underwent a bilateral iliofemoral runoff during this hospitalization due to an abnormal ELLIE and poorly healing wounds on her feet. The patient had a bare-metal stent placed to the right common iliac artery. She also had lithotripsy and balloon angioplasty to the distal right SFA and right popliteal arteries. The patient had three-vessel runoff to the foot on the left with no intervention on the left. Inflow was significantly increased with the stenting and angioplasty so wound healing should be significantly improved. 6. The patient went to the OR yesterday and had amputation of her right second toe as well as partial amputation of the right fifth metatarsal with biopsy and partial amputation of the lef fifth metatarsal as well. She had bilateral foot wound debridement and ulcer excision. Will defer wound management to podiatry. 7. Coronary artery disease is likely stable. Continue Plavix. 8. Her blood pressure is well-controlled. 9. Her LDL goal is less than 55. LDL is 34. She is on a statin. 10. The patient remains anemic today. She did have blood transfusions yesterday. Her hemoglobin is 7.0 today. She would likely benefit from a GI consult but we will leave this up to the hospitalist. 11. No further recommendations at this time from a cardiac standpoint. If any other cardiac issues arise throughout her hospitalization, please feel free to contact cardiology again. 12. She will need to follow-up in cardiology clinic in 2 weeks when she is discharged from the hospital. The patient will need to be discharged on the following cardiac medications: Aspirin 81 mg daily, Lipitor 40 mg p.o. nightly, Coreg 12.5 mg p.o. twice daily, Plavix 75 mg daily, Jardiance 10 mg daily, Lasix 80 mg p.o. twice daily, lisinopril 40 mg p.o. daily, spironolactone 25 mg daily. Thank you for the opportunity to help participate in the care of this patient. All recommendations and orders are per Dr. Levine.
[2024-10-24 12:00] VITALS: BP 93/52; PULSE 78; PULSE 80; RESP 16; TEMP 36.4; O2SAT 98
[2024-10-24] MEDS: VANCOMYCIN HCL 1,250 MG in 0.9 % SODIUM CHLORIDE 250 ML 125 MG IV (12:12)
[2024-10-24 12:24] LABS: POC Glucose,Bedside 111 (70-110)
[2024-10-24] MEDS: EMPAGLIFLOZIN 10MG TABLET 10 MG PO (14:35)
[2024-10-24] MEDS: ASPIRIN EC 81MG TABLET 81 MG PO (14:59)
[2024-10-24 16:00] VITALS: BP 99/52; PULSE 80; PULSE 81; RESP 17; TEMP 36.7; O2SAT 94
[2024-10-24] MEDS: GABAPENTIN 800MG TABLET 800 MG PO (17:09)
[2024-10-24 17:48] LABS: POC Glucose,Bedside 59 (70-110)
[2024-10-24 17:48] LABS: POC Glucose,Bedside 149 (70-110)
[2024-10-24 20:00] VITALS: BP 104/67; PULSE 75; PULSE 77; RESP 14; TEMP 36.7; O2SAT 98
[2024-10-24 20:19] LABS: POC Glucose,Bedside 75 (70-110)
--- NOTE | 2024-10-24 20:53 | P.PN_ITS ---
Subjective *Date: 10/24/24 *Time: 20:53 Interval history: Patient doing a lot better today, does not want SNF placement recommended by PT. Will anticipate discharge tomorrow with home health once wound cultures result. Exam Data for Last 24 hours Vital signs and Labs for Last 24 Hours: Temp Pulse Resp BP Pulse Ox O2 Del Method O2 Flow Rate 98.1 F 77 14 104/67 L 98 Room Air 2 10/24/24 20:00 10/24/24 20:00 10/24/24 20:00 10/24/24 20:00 10/24/24 20:00 10/24/24 20:00 10/22/24 20:00 Laboratory Results - last 24 hr 10/23/24 20:35: POC Glucose 115 H 10/24/24 05:29: POC Glucose 198 H 10/24/24 05:42: WBC 6.9, RBC 2.51 L, Hgb 7.0 L, Hct 22.7 L, MCV 90.4, MCH 27.9, MCHC 30.8 L, RDW 22.0 H, Plt Count 270, MPV 9.0, Neut % (Auto) 59.1, Lymph % (Auto) 25.5, [place] % (Auto) 11.6 H, Eos % (Auto) 2.5, Baso % (Auto) 0.6, Neut # (Auto) 4.1, Lymph # (Auto) 1.8, [place] # (Auto) 0.8, Eos # (Auto) 0.2, Baso # (Auto) 0.0, ESR 119 H, Sodium 134 L, Potassium 4.2, Chloride 105, Carbon Dioxide 26, Anion Gap 7.2, BUN 27 H D, Creatinine 1.20 H D, Estimated Creat Clear 58, Estimated GFR 46 L, Est GFR ( Amer) 55 L D, Glucose 126 H, POC Glucose 149 H, Calcium 7.9 L, Total Bilirubin 0.3, AST 29, ALT 12, Alkaline Phosphatase 105, C-Reactive Protein 4.1 H D, Total Protein 5.8 L, Albumin 2.9 L, Globulin 2.9, Albumin/Globulin Ratio 1.0 L, Vitamin B12 363, Folate 4.62, TSH 21.50 H, Free T4 0.87 10/24/24 12:11: POC Glucose 111 H 10/24/24 17:03: POC Glucose 59 L 10/24/24 20:01: POC Glucose 75 I & O for Last 24 hours: Intake & Output 10/21/24 10/22/24 10/23/24 10/24/24 23:59 23:59 23:59 23:59 Intake Total 720 / 780 160 / 160 1300 / 1540 1300 / 1300 Output Total 2250 / 2250 2700 / 2700 1400 / 1400 300 / 300 Balance -1530 / -1470 -2540 / -2540 -100 / 140 1000 / 1000 Weight 76.521 kg 75.106 kg 74.026 kg 75.013 kg Microbiology Reports for the Last 24 Hours: Microbiology 10/19/24 20:35 Blood Blood Culture - Final NO GROWTH AFTER 5 DAYS 10/23/24 08:17 Toe,Left Fifth Gram Stain - Final 10/23/24 08:17 Toe,Left Fifth Surgical Biopsy Culture - Preliminary NO GROWTH AFTER 24 HOURS 10/23/24 08:17 Foot,Right - Right Gram Stain - Final 10/23/24 08:17 Foot,Right - Right Surgical Biopsy Culture - Preliminary NO GROWTH AFTER 24 HOURS 10/22/24 07:43 Toe,Second Right Gram Stain - Final 10/22/24 07:43 Toe,Second Right Wound Culture - Preliminary Gram Positive Cocci Gram Positive Cocci#2 Gram Positive Cocci#3 10/23/24 08:17 Foot,Left - Left Bone Culture - Preliminary 10/22/24 07:52 Foot,Left - Wound Gram Stain - Final 10/22/24 07:52 Foot,Left - Wound Wound Culture - Final Staphylococcus aureus Constitutional Constitutional: no acute distress *Routine HEENT Exam Head: Present normocephalic Eye: Present EOMI and PERRL ENT: Present mucous membranes moist *Routine Neck Exam Neck: Present supple; Absent lymphadenopathy *Routine Respiratory Exam Respiratory: Present CTA bilaterally *Routine Cardiovascular Exam Cardiovascular: Present RRR *Routine Abdominal Exam Abdominal: Present soft and normoactive bowel sounds; Absent tenderness *Routine Extremities Exam Extremities: Present edema; Absent cyanosis or clubbing *Routine Skin Exam Skin: Present warm; Absent rash *Routine Neurological Exam Neurological: Present alert and oriented X3 Assessment and Plan *Assessment and plan (1) Pulmonary edema: Status: Acute Qualifiers: Chronicity: acute Qualified Code(s): J81.0 - Acute pulmonary edema Category: Medical Code(s): J81.1 - Chronic pulmonary edema (2) Acute on chronic systolic heart failure: Status: Acute Category: Medical Code(s): I50.23 - Acute on chronic systolic (congestive) heart failure (3) Osteoarthritis of toe: Status: Acute Category: Medical Code(s): M19.079 - Primary osteoarthritis, unspecified ankle and foot (4) Cellulitis of foot: Status: Acute Category: Medical Code(s): L03.119 - Cellulitis of unspecified part of limb (5) Iron deficiency: Status: Acute Category: Medical Code(s): E61.1 - Iron deficiency (6) T2DM (type 2 diabetes mellitus): Status: Acute Qualifiers: Diabetes mellitus terminal supervisor insulin use: with terminal supervisor use Diabetes mellitus complication status: with diabetic arthropathy Diabetes mellitus complication detail: with neuropathic arthropathy Qualified Code(s): E11.610 - Type 2 diabetes mellitus with diabetic neuropathic arthropathy; Z79.4 - residential (current) use of insulin Category: Medical Code(s): E11.9 - Type 2 diabetes mellitus without complications (7) Hyperlipidemia: Status: Acute Qualifiers: Hyperlipidemia type: unspecified Qualified Code(s): E78.5 - Hyperl ipidemia, unspecified Category: Medical Code(s): E78.5 - Hyperlipidemia, unspecified (8) Peripheral arterial disease: Status: Acute Category: Medical Code(s): I73.9 - Peripheral vascular disease, unspecified (9) 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: Status: Acute Qualifiers: Fracture type: closed Fracture alignment: nondisplaced Qualified Code(s): S92.355K - Nondisplaced fracture of fifth metatarsal bone, left foot, subsequent encounter for fracture with nonunion Category: Medical Code(s): S92.352K - Displaced fracture of fifth metatarsal bone, left foot, subsequent encounter for fracture with nonunion (10) Decreased pedal pulses: Status: Acute Category: Medical Code(s): R09.89 - Other specified symptoms and signs involving the circulatory and respiratory systems Plan 64-year-old female who presented with shortness of breath. Had prolonged course of treatment at over the past few months for infection and knee along with amputation of toe. Presented with new oxygen requirement due to her hypoxia. Appears frankly volume overloaded. Initiated on aggressive diuresis and supplemental oxygen. Podiatry and cardiology assisting with care. Planning for runoff of lower extremity today. Anticipate surgery tomorrow. Continue antibiotics for infection. Necessitates inpatient care. Problems addressed as follows #Pulmonary edema #Acute on chronic systolic congestive heart failure # Hypertension # Hyperlipidemia - Bilateral lower extremity edema, chest x-ray with pulmonary edema. Known history of systolic heart failure per chart review at (unknown EF) - Initiated on IV diuresis with proBNP of >30,000. Continue Lasix 80 mg PO twice daily - Echo obtained with EF reduced to 40%, grade 2 diastolic dysfunction present. - Continue home medications for heart failure and hypertension including Lipitor 40 mg nightly, carvedilol 12 and half milligrams twice daily, Plavix 75 mg daily, lisinopril 40 mg nightly, spironolactone 25 mg daily - Goal sats greater 90%, currently on room air. - Cardiology consulted for PAD, s/p angioplasty of distal SFA and right popliteal artery. #Osteoarthritis of toe, right #Cellulitis of foot right #PAD Prior history of MRSA osteomyelitis. Recent septic knee on the same side. Mild mottling noted but patient reports this is chronic. Toe ulceration worse per patient's report. Continue vancomycin IV, close monitoring for toxicity Podiatry consulted, s/p right second toe amputation, fifth metatarsal bone resection, left fifth metatarsal partial amputation. ? Follow-up bone cultures. - Repeat CBC, CMP, magnesium ordered for the morning. - Hydrocodone 7.5 mg as needed every 6 hours along with gabapentin as needed 800 mg every 6 hours monitor for toxicity. Patient's home medications locked up. -Patient does not want SNF placement recommended by PT, anticipate discharge tomorrow with home health once wound culture result. #Iron deficiency anemia: #Acute on chronic anemia #Low folic acid - Hemoglobin this morning 6.8, transfused with 1 unit with improvement to 7.3. - Transfusion threshold hemoglobin less than 7 - 200 mg IV Venofer administered during admission. ?Started folic acid 1 g daily. #T2DM: Discontinued Lantus today due to persistent hypoglycemia requiring multiple amps of D50. Continue SSI. ? Hemoglobin A1c 5.5, though in the setting of anemia hemoglobin 6.8. ? Follow-up blood sugars. #Hypothyroidism: Continue home levothyroxine 200 mcg daily. ? Follow-up TFTs. Continue home gabapentin 800 mg Continue hydrocodone increased to 7.5 mg every 6 hours as needed for pain control. Home regimen is 10 mg. Due to oversedation, will administer slightly smaller dose. High risk for polypharmacy and oversedation Continue stool softeners with Senokot daily for constipation Full code Diabetic diet Lovenox 30 mg
[2024-10-24] MEDS: AMITRIPTYLINE 50MG TABLET 50 MG PO (21:29)
[2024-10-24] MEDS: ATORVASTATIN 40MG TABLET 40 MG PO (21:29)
[2024-10-25] VITALS (27 sets, daily range): BP systolic 91–142; BP diastolic 47–79; PULSE 65–89; RESP 14–18; TEMP 36.4–36.7; O2SAT 94–100; BMI 31.0
[2024-10-25] MEDS: GABAPENTIN 800MG TABLET 800 MG PO ×4 (00:08→18:24)
[2024-10-25 00:21] LABS: POC Glucose,Bedside 72 (70-110)
[2024-10-25] MEDS: DEXTROSE 50% 50ML SYRINGE (CRASH CART) 50 ML IVP ×2 (04:35→12:05)
[2024-10-25 05:10] LABS: POC Glucose,Bedside 174 (70-110)
--- NOTE | 2024-10-25 05:53 | PC.NURSE ---
Pt. is alert and orientated x 4. Pt. had right second toe amputated and a biopsy of the left foot. Pt. has bandages on Bilateral feet. Gauze and esthela wrap dressing in place, dressings are clean, dry, intact. Pt. able to get up to bedside commode and chair with assist x 1. Pt. is a diabetic.Her POC sugars have been low. She has not gotten any Insulin this shift. At 0430, SRNA in room to get vitals and pt, was very sleepy.POC blood sugar was 43, Pt. had difficulty speaking, was pale, diaphoretic , dizzy. Pt. received an amp of D50, when Pt. had recovered and was back to normal, baseline mentation she was able to drink some juice and have a snack. She had crackers with some peanut butter and a rice krispy treat. POC blood sugar post snack was 179. Pt. resting comfortable now . Personal items and call gonzalez in reach.
[2024-10-25 06:10] LABS: MANUAL DIFFERENTIAL MANUAL DIFFERENTIAL (MANUAL DIFF)
[2024-10-25 06:14] LABS: Basophils % 0.5 % (0.1-2.0); Eosinophils # 0.1 Kmm3 (0.0-0.4); Eosinophils % 2.1 % (0.1-12.0); Lymphocytes # 2.2 K/mm3 (0.7-4.5); Lymphocytes % 35.4 % (10-50); Mean Corpuscular HGB Conc 30.8 g/dL (31.8-35.4); Mean Corpuscular Hemoglobin 28.1 pg (27.0-31.2); Mean Platelet Volume 8.8 fl (7.4-10.4); Monocytes # 0.7 K/mm3 (0.1-1.0); Monocytes % 11.9 % (1.7-9.3); Neutrophils # 3.1 K/mm3 (1.8-7.8); Neutrophils % 49.6 % (37.0-80.0); Platelet Count 210 K/mm3 (142-424); Red Blood Count 2.21 M/mm3 (4.20-5.40); Red Cell Distribution Width 21.6 % (11.5-17.5); White Blood Count 6.2 K/mm3 (4.8-10.8)
[2024-10-25 06:25] LABS: Anion Gap 6.4 mEq/L (5-15); Blood Urea Nitrogen 31 mg/dl (7-17); Calcium 8.2 mg/dl (8.4-10.2); Carbon Dioxide 26 mmol/L (22.0-30.0); Chloride 102 mmol/L (98-107); Creatinine Clearance Estimated 54 mL/min (50-200); Estimated Glomerular Filt Rate 42 ml/min (>60); GFR (African American) 50 ML/MIN (>60); Glucose 130 mg/dl (74-100); Potassium 4.4 mmoL/L (3.5-5.1); Sodium 130 mmol/L (136-145)
[2024-10-25 06:42] LABS: POC Glucose,Bedside 177 (70-110)
[2024-10-25 06:44] LABS: Hemoglobin 6.2 g/dL (12.2-16.2)
[2024-10-25 06:45] LABS: Hematocrit 20.1 % (37.0-47.0)
--- NOTE | 2024-10-25 06:56 | P.PN_ITS ---
Subjective *Date: 10/25/24 *Time: 08:10 Interval history: 10/25/24: POD#2 64-year old female, had B/L DFU, right second toe osteomyelitis, left fifth metatarsal osteomyelitis was taken to surgery, 10/23/24. S/P Right 2nd toe amputation, Right 5th metatarsal partial resection, open bone biopsy, Left 5th partial metatarsal amputation/resection, Bilateral foot wound wide excisional debridement with ulcer excision. Bone cultures pending. Patient resting without complaints of pain. Patient has now decided to possibly going to SNF, she will let hospitalist know what she is thinking. Ortho Exam (Inpt) Vital signs and Labs for Last 24 Hours: Temp Pulse Resp BP Pulse Ox O2 Del Method O2 Flow Rate 98.1 F 82 14 91/47 L 96 Room Air 2 10/25/24 04:00 10/25/24 04:00 10/25/24 04:00 10/25/24 04:00 10/25/24 04:00 10/25/24 06:50 10/22/24 20:00 Laboratory Results - last 24 hr 10/24/24 05:42: WBC 6.9, RBC 2.51 L, Hgb 7.0 L, Hct 22.7 L, MCV 90.4, MCH 27.9, MCHC 30.8 L, RDW 22.0 H, Plt Count 270, MPV 9.0, Neut % (Auto) 59.1, Lymph % (Auto) 25.5, [place] % (Auto) 11.6 H, Eos % (Auto) 2.5, Baso % (Auto) 0.6, Neut # (Auto) 4.1, Lymph # (Auto) 1.8, [place] # (Auto) 0.8, Eos # (Auto) 0.2, Baso # (Auto) 0.0, ESR 119 H, Sodium 134 L, Potassium 4.2, Chloride 105, Carbon Dioxide 26, Anion Gap 7.2, BUN 27 H D, Creatinine 1.20 H D, Estimated Creat Clear 58, Estimated GFR 46 L, Est GFR ( Amer) 55 L D, Glucose 126 H, POC Glucose 149 H, Calcium 7.9 L, Total Bilirubin 0.3, AST 29, ALT 12, Alkaline Phosphatase 105, C-Reactive Protein 4.1 H D, Total Protein 5.8 L, Albumin 2.9 L, Globulin 2.9, Albumin/Globulin Ratio 1.0 L, Vitamin B12 363, Folate 4.62, Free T4 0.87 10/24/24 12:11: POC Glucose 111 H 10/24/24 17:03: POC Glucose 59 L 10/24/24 20:01: POC Glucose 75 10/24/24 23:59: POC Glucose 72 10/25/24 05:01: POC Glucose 174 H 10/25/24 05:44: WBC 6.2, RBC 2.21 L, Hgb 6.2 L*, Hct 20.1 L*, MCV 91.0, MCH 28.1, MCHC 30.8 L, RDW 21.6 H, Plt Count 210, MPV 8.8, Neut % (Auto) 49.6, Lymph % (Auto) 35.4, [place] % (Auto) 11.9 H, Eos % (Auto) 2.1, Baso % (Auto) 0.5, Neut # (Auto) 3.1, Lymph # (Auto) 2.2, [place] # (Auto) 0.7, Eos # (Auto) 0.1, Baso # (Auto) 0.0, Sodium 130 L, Potassium 4.4, Chloride 102, Carbon Dioxide 26, Anion Gap 6.4, BUN 31 H, Creatinine 1.30 H, Estimated Creat Clear 54, Estimated GFR 42 L, Est GFR ( Amer) 50 L, Glucose 130 H, Calcium 8.2 L 10/25/24 06:33: POC Glucose 177 H I & O for Labs for Last 24 Hours: Intake & Output 10/22/24 10/23/24 10/24/24 10/25/24 23:59 23:59 23:59 23:59 Intake Total 160 / 160 1300 / 1300 1300 / 1300 480 / 480 Output Total 2700 / 2700 1400 / 1400 300 / 300 600 / 600 Balance -2540 / -2540 -100 / -100 1000 / 1000 -120 / -120 Weight 165 lb 9.286 oz 163 lb 3.2 oz 165 lb 6 oz 168 lb 8 oz Microbiology Reports for the Last 24 Hours: Microbiology 10/19/24 20:35 Blood Blood Culture - Final NO GROWTH AFTER 5 DAYS 10/23/24 08:17 Toe,Left Fifth Gram Stain - Final 10/23/24 08:17 Toe,Left Fifth Surgical Biopsy Culture - Preliminary NO GROWTH AFTER 24 HOURS 10/23/24 08:17 Foot,Right - Right Gram Stain - Final 10/23/24 08:17 Foot,Right - Right Surgical Biopsy Culture - Preliminary NO GROWTH AFTER 24 HOURS 10/22/24 07:43 Toe,Second Right Gram Stain - Final 10/22/24 07:43 Toe,Second Right Wound Culture - Preliminary Gram Positive Cocci Gram Positive Cocci#2 Gram Positive Cocci#3 10/23/24 08:17 Foot,Left - Left Bone Culture - Preliminary 10/22/24 07:52 Foot,Left - Wound Gram Stain - Final 10/22/24 07:52 Foot,Left - Wound Wound Culture - Final Staphylococcus aureus Constitutional: Present no acute distress and cooperative Head: Present normocephalic Eyes: Present as per HPI Neck: Present trachea midline Respiratory: Present normal respiratory effort Cardiac: Present pedal pulses present; Absent posterior tibial pulses present Comment:: S/P runoff 10/23/24; her right DP is palpable, her left DP was weakly palpable. Rectal (female): Present deferred (female): Present deferred Extremities: Present edema (b/l feet haved improved with less swelling. ) Skin: Present erythema (improving), dry, lesions and wounds Comment:: S/P Right 2nd toe amputation, Right 5th metatarsal partial resection, open bone biopsy, Left 5th partial metatarsal amputation/resection, Bilateral foot wound wide excisional debridement with ulcer excision. Neuro: Present awake, oriented x 3 and moves all extremities Ankle: bilateral: swelling and bilateral: decreased ROM Feet/Toes: bilateral: amputation (RH amp, new R2nd amp, Left 5th partial metatarsal amputation/resection,), bilateral: bunion, bilateral: hammer toe, bilateral: nail abnormalities, bilateral: swelling (R 2nd toe amp, Left 5th partial metatarsal amputation/resection), bilateral: tenderness, bilateral: wound (B/L foot DFU; R2nd ampl L5th partial met amp.) and bilateral: decreased ROM Assessment and Plan *Assessment and plan (1) Osteoarthritis of toe: Status: Acute Category: Medical Code(s): M19.079 - Primary osteoarthritis, unspecified ankle and foot (2) Cellulitis of foot: Status: Acute Category: Medical Code(s): L03.119 - Cellulitis of unspecified part of limb (3) T2DM (type 2 diabetes mellitus): Status: Acute Qualifiers: Diabetes mellitus complication detail: with neuropathic arthropathy Diabetes mellitus complication status: with diabetic arthropathy Diabetes mellitus fdc insulin use: with terminal operations manager use Qualified Code(s): E11.610 - Type 2 diabetes mellitus with diabetic neuropathic arthropathy; Z79.4 - terminal operations manager (current) use of insulin Category: Medical Code(s): E11.9 - Type 2 diabetes mellitus without complications (4) Edema of both lower extremities: Status: Acute Category: Medical Code(s): R60.0 - Localized edema (5) Foot ulcer, left: Status: Acute Qualifiers: Non-pressure ulcer stage: with muscle involvement without evidence of necrosis Qualified Code(s): L97.525 - Non-pressure chronic ulcer of other part of left foot with muscle involvement without evidence of necrosis Category: Medical Code(s): L97.529 - Non-pressure chronic ulcer of other part of left foot with unspecified severity (6) Peripheral arterial disease: Status: Acute Category: Medical Code(s): I73.9 - Peripheral vascular disease, unspecified (7) CAD (coronary atherosclerotic disease): Status: Acute Qualifiers: Associated angina: with other forms of angina Coronary Disease- Associated Artery/Lesion type: [place] artery [place] vs. transplanted heart: [place] heart Qualified Code(s): I25.118 - Atherosclerotic heart disease of [place] coronary artery with other forms of angina pectoris Category: Medical Code(s): I25.10 - Atherosclerotic heart disease of [place] coronary artery without angina pectoris (8) Tobacco dependence syndrome: Status: Acute Category: Medical Code(s): F17.200 - Nicotine dependence, unspecified, uncomplicated (9) Charcot foot due to diabetes mellitus: Status: Chronic Category: Medical Code(s): E11.610 - Type 2 diabetes mellitus with diabetic neuropathic arthropathy (10) Neuropathy: Status: Acute Category: Medical Code(s): G62.9 - Polyneuropathy, unspecified (11) Presence of retained hardware: Status: Acute Category: Medical Code(s): Z96.9 - Presence of functional implant, unspecified (12) Ulcer of second toe of right foot: Status: Acute Qualifiers: Non-pressure ulcer stage: with necrosis of bone Qualified Code(s): L97.514 - Non-pressure chronic ulcer of other part of right foot with necrosis of bone Category: Medical Code(s): L97.519 - Non-pressure chronic ulcer of other part of right foot with unspecified severity (13) Decreased pedal pulses: Status: Acute Category: Medical Code(s): R09.89 - Other specified symptoms and signs involving the circulatory and respiratory systems (14) 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: Status: Acute Qualifiers: Fracture alignment: nondisplaced Fracture type: closed Qualified Code(s): S92.355K - Nondisplaced fracture of fifth metatarsal bone, left foot, subsequent encounter for fracture with nonunion Category: Medical Code(s): S92.352K - Displaced fracture of fifth metatarsal bone, left foot, subsequent encounter for fracture with nonunion (15) History of partial ray amputation of fifth toe of left foot: Status: Acute Category: Surgical Code(s): Z89.422 - Acquired absence of other left toe(s) (16) History of amputation of right second toe: Status: Acute Category: Surgical Code(s): Z89.421 - Acquired absence of other right toe(s) Plan 10/25/24 POD#2 Sx. 10/23/24 S/P Right 2nd toe amputation, Right 5th metatarsal partial resection, open bone biopsy, Left 5th partial metatarsal amputation/resection, Bilateral foot wound wide excisional debridement with ulcer excision. Plan: -Reviewed labs: 10/25/24, WBC 6.2 hemoglobin 6.28 hematocrit 20.1, glucose 130 -Patient is going to get blood transfusion today. -Continue IV abx: vancomycin IV, close monitoring for toxicity -Discussed with hospitalist: defer mgmt of IV abx, blood transfusion, right knee wound to hosp team -Rec PT evaluation for possible SNF (lives alone, does not drive, previously at [facility]) -Patient is now up for going to SNF at discharge -PWB to heels in post op shoe to left, right has a fracture boot, walker -Dressing change this morning: Betadine soaked 4x4, dry 4x4, kerlix and esthela wrap -Podiatry will continue to follow while inpatient. -All orders per Dr. Finnegan Specimens:: Pending Micro: Right 2nd toe culture Right 5h metatarsal BCx Left 5th metatarsal BCx Path: Right 2nd toe Right 5h metatarsal bone Left 5th metatarsal bone
[2024-10-25 08:04] LABS: Eosinophils % 2 % (0-3); Lymphocytes % 39 % (10-50); Monocytes % 5 % (2-9); Neutrophils % 54 % (42-76); Platelet Estimate Normal; RBC Morphology Normal; Total Cells Counted 100
[2024-10-25] MEDS: CITALOPRAM 20MG TABLET 20 MG PO (08:45)
[2024-10-25] MEDS: CARVEDILOL 12.5MG TABLET 12.5 MG PO ×2 (08:45→20:14)
[2024-10-25] MEDS: FUROSEMIDE 80 MG TABLET PO ×2 (08:45→16:44)
[2024-10-25] MEDS: SPIRONOLACTONE 25MG TABLET 25 MG PO (08:45)
[2024-10-25] MEDS: EMPAGLIFLOZIN 10MG TABLET 10 MG PO (08:45)
[2024-10-25] MEDS: ALLOPURINOL 100MG TABLET 100 MG PO (08:45)
[2024-10-25] MEDS: buPROPion HCl SR 150MG TAB 150 MG PO ×2 (08:45→20:14)
[2024-10-25] MEDS: PRAMIPEXOLE 1MG TAB 0.5 MG PO (08:45)
[2024-10-25] MEDS: LEVOTHYROXINE 100MCG (0.1MG) TAB 200 MCG PO (08:46)
[2024-10-25] MEDS: FOLIC ACID 1MG TABLET 1 MG PO (08:46)
[2024-10-25] MEDS: SENNA 8.6MG TABLET 17.2 MG PO (08:46)
--- NOTE | 2024-10-25 09:01 | P.PN_ITS ---
Subjective *Date: 10/25/24 *Time: 09:01 Medical Exam Vital signs and Labs for Last 24 Hours: Vital Signs Temp Pulse Pulse Resp BP Pulse Ox O2 Del Method 10/25/24 06:50 Room Air 10/25/24 05:00 Room Air 10/25/24 04:00 80 10/25/24 04:00 98.1 F 82 14 91/47 L 96 Room Air 10/25/24 03:00 Room Air 10/25/24 01:00 Room Air 10/25/24 00:00 75 10/25/24 00:00 98.1 F 82 16 98/47 L 100 Room Air 10/24/24 23:00 Room Air 10/24/24 21:00 Room Air 10/24/24 20:00 75 10/24/24 20:00 98 Room Air 10/24/24 20:00 98.1 F 77 14 104/67 L 98 Room Air 10/24/24 18:52 Room Air 10/24/24 17:15 Room Air 10/24/24 16:00 80 10/24/24 16:00 98.1 F 81 17 99/52 L 94 L Room Air 10/24/24 15:00 Room Air 10/24/24 12:48 Room Air 10/24/24 12:00 80 10/24/24 12:00 97.5 F L 78 16 93/52 L 98 Room Air 10/24/24 11:00 Room Air Intake and Output 10/24/24 10/25/24 10/25/24 23:59 07:59 15:59 Intake Total 520 / 1780 480 / 480 Output Total 300 / 700 600 / 600 Balance 220 / 1080 -120 / -120 Intake: Intake, Oral Amount 270 / 1530 480 / 480 Intake, Total IV Amount 250 / 250 Vancomycin HCl 1,250 mg In 0.9 250 / 250 % Sodium Chloride 250 ml @ 125 mls/hr IV Q24H [facility] Rx#:[id number] Output: Output, Urine Amount 300 / 700 600 / 600 Other: Number of Unmeasured Voids 0 0 Weight 76.43 kg Patient Weight 10/25/24 23:59 Weight 76.43 kg Laboratory Results - last 24 hr 10/23/24 10:45: Blood Type A Positive, Antibody Screen Negative, Crossmatch (AHG) See Detail 10/24/24 05:42: ESR 119 H, POC Glucose 149 H 10/24/24 12:11: POC Glucose 111 H 10/24/24 17:03: POC Glucose 59 L 10/24/24 20:01: POC Glucose 75 10/24/24 23:59: POC Glucose 72 10/25/24 05:01: POC Glucose 174 H 10/25/24 05:44: WBC 6.2, RBC 2.21 L, Hgb 6.2 L*, Hct 20.1 L*, MCV 91.0, MCH 28.1, MCHC 30.8 L, RDW 21.6 H, Plt Count 210, MPV 8.8, Neut % (Auto) 49.6, Lymph % (Auto) 35.4, [place] % (Auto) 11.9 H, Eos % (Auto) 2.1, Baso % (Auto) 0.5, Neut # (Auto) 3.1, Lymph # (Auto) 2.2, [place] # (Auto) 0.7, Eos # (Auto) 0.1, Baso # (Auto) 0.0, Total Counted 100, Neutrophils % (Manual) 54, Lymphocytes % (Manual) 39, Monocytes % (Manual) 5, Eosinophils % (Manual) 2, Platelet Estimate Normal, RBC Morphology Normal, Sodium 130 L, Potassium 4.4, Chloride 102, Carbon Dioxide 26, Anion Gap 6.4, BUN 31 H, Creatinine 1.30 H, Estimated Creat Clear 54, Estimated GFR 42 L, Est GFR ( Amer) 50 L, Glucose 130 H, Calcium 8.2 L 10/25/24 06:33: POC Glucose 177 H I & O for Labs for Last 24 Hours: Intake & Output 10/22/24 10/23/24 10/24/24 10/25/24 23:59 23:59 23:59 23:59 Intake Total 160 / 160 1300 / 1540 1300 / 1780 480 / 480 Output Total 2700 / 2700 1400 / 1400 300 / 700 600 / 600 Balance -2540 / -2540 -100 / 140 1000 / 1080 -120 / -120 Weight 75.106 kg 74.026 kg 75.013 kg 76.43 kg Microbiology Reports for the Last 24 Hours: Microbiology 10/22/24 07:43 Toe,Second Right Gram Stain - Final 10/22/24 07:43 Toe,Second Right Wound Culture - Final Staphylococcus aureus 10/19/24 20:35 Blood Blood Culture - Final NO GROWTH AFTER 5 DAYS 10/23/24 08:17 Toe,Left Fifth Gram Stain - Final 10/23/24 08:17 Toe,Left Fifth Surgical Biopsy Culture - Preliminary NO GROWTH AFTER 24 HOURS 10/23/24 08:17 Foot,Right - Right Gram Stain - Final 10/23/24 08:17 Foot,Right - Right Surgical Biopsy Culture - Preliminary NO GROWTH AFTER 24 HOURS 10/23/24 08:17 Foot,Left - Left Bone Culture - Preliminary 10/22/24 07:52 Foot,Left - Wound Gram Stain - Final 10/22/24 07:52 Foot,Left - Wound Wound Culture - Final Staphylococcus aureus The patient's infection will respond to the chosen ABx?: Yes (WOUND CXS = NO GROWTH, BONE CXS PENDING, AFEBRILE OVER 24 HR) Is the patient receiving the right drug, dose, and route?: Yes Could a more targeted ABx be ordered?: No (BONE CX STILL PENDING RESULT)
--- NOTE | 2024-10-25 09:26 | PC.NURSE ---
Right food dressing bleeding after md. changed dressing. Dressing changed again with betadine soaked 4x4, kerlix and esthela dressing.
--- NOTE | 2024-10-25 09:39 | PC.NURSE ---
Podiatry called and aware of patient's right foot bleeding.
[2024-10-25 10:10] LABS: POC Glucose,Bedside 78 (70-110)
--- NOTE | 2024-10-25 10:31 | XR_ITS ---
FINAL REPORT CLINICAL HISTORY: PICC line placement COMPARISON: 10/19/2024 FINDINGS: A portable view of the chest was obtained. The heart is stable in size. The mediastinum is unremarkable. There has been interval placement of left PICC line, tip terminates in the SVC. The lungs are clear. There is no pleural effusion or pneumothorax. IMPRESSION: PICC line tip terminates in the SVC. Reviewed, Interpreted and Dictated by Myra Meredith MD Transcribed by Janki Avila Authenticated and [facility]
--- NOTE | 2024-10-25 10:53 | EXP.GE.CONS ---
History of Present Illness *Admission Date: 10/19/24 *History of present illness: Mrs. Hernandez is a 64-year-old female who is admitted with pulmonary edema and bilateral lower extremity DFU. And struggling with recent septic joint and right knee. She has wound infection and possible osteomyelitis and is followed by orthopedics and has been seen by Dr. Finnegan at [facility]. The patient also has had marked/profound anemia and today her hemoglobin and hematocrit are 6.2 and 20.1. The patient's iron studies were normal with ferritin of 216, serum iron 74, iron saturation 24.2%. She is Hemoccult negative. She is not showing any signs of melena, hematochezia or bright red blood per rectum. She reports no abdominal pain. GI was consulted. Patient's last colonoscopy was several years ago. She did have an abdominal CAT scan in March 2020 for that showed some biliary and pancreatic ductal dilation and her alkaline phosphatase has variably been elevated but her bilirubin is normal. Her prior CAT scan had shown some mild constipation and an area of mural thickening along the splenic flexure felt to be most likely artifactual. [facility] Disclaimer: The information contained in this section may have been updated after the patient was seen, as this information can be updated by other users. Medical History (Updated 10/25/24 @ 10:59 by Bobby Pike II, MD) Osteomyelitis Tobacco dependence syndrome Hypertension Peripheral arterial disease CAD (coronary atherosclerotic disease) T2DM (type 2 diabetes mellitus) Decreased pedal pulses Ulcer of second toe of right foot Pulmonary edema Abnormal ankle brachial index (ELLIE) Acute on chronic systolic heart failure Closed left ankle fracture Elevated left ventricular end-diastolic pressure (LVEDP) Edema of both lower extremities Syncope Abnormal result of cardiovascular function study Typical angina Arthritis GERD (gastroesophageal reflux disease) Depression COPD (chronic obstructive pulmonary disease) Arrhythmia Hyperlipidemia Surgical History (Updated 10/24/24 @ 21:03 by Valencia Mares APRN) History of cancer surgery H/O total hysterectomy Hx of colonoscopy Family History Other Cancer Coronary artery disease Diabetes Heart attack Hypertension Stroke Social History (Updated 10/19/24 @ 22:27 by Gabriela Gloria RN) Smoking Status: Former smoker tobacco type: cigarettes alcohol intake: never substance use type: denies use current occupational status: unemployed and disabled Travel in the last 8 weeks?: None household members: spouse housing: house Review of Systems *Neurologic Neurologic: Reports system reviewed and no additional complaints, except as documented Meds Home Medications and Allergies Home Medications ?Medication ?Instructions ?Recorded ?Confirmed ?Type amitriptyline 50 mg tablet 50 mg PO HS 04/14/24 10/19/24 History atorvastatin 80 mg tablet 40 mg PO HS 04/14/24 10/19/24 History bupropion HCl 150 mg tablet,12 hr 150 mg PO BID 04/14/24 10/19/24 History sustained-release pramipexole 0.5 mg tablet 0.5 mg PO DAILY 04/14/24 10/19/24 History gabapentin 800 mg tablet 800 mg PO Q6H 04/15/24 10/19/24 History hydrocodone 10 mg-acetaminophen 1 tab PO Q6H 04/15/24 10/19/24 History 325 mg tablet spironolactone 25 mg tablet 25 mg PO DAILY 04/15/24 10/19/24 History blood-glucose meter #1 ea 04/17/24 10/19/24 Rx insulin lispro 100 unit/mL 20 unit SQ BID 04/24/24 10/19/24 History subcutaneous pen sennosides 8.6 mg tablet (Senna 17.2 mg (2 x 8.6 mg) PO DAILY 30 04/24/24 10/19/24 Rx Laxative) days #60 tabs polyethylene glycol 3350 17 17 g PO DAILY 05/21/24 10/19/24 History gram/dose oral powder (Miralax) magnesium oxide 400 mg (241.3 mg 400 mg PO DAILY #90 tabs 08/22/24 10/19/24 Rx magnesium) tablet citalopram 20 mg tablet 20 mg PO DAILY #90 tabs 08/30/24 10/19/24 Rx allopurinol 100 mg tablet 100 mg PO DAILY #30 tabs 10/09/24 10/19/24 Rx carvedilol 25 mg tablet 12.5 mg (1/2 x 25 mg) PO BID #60 10/09/24 10/19/24 Rx tabs clopidogrel 75 mg tablet 75 mg PO DAILY #30 tabs 10/09/24 10/19/24 Rx lisinopril 40 mg tablet 40 mg PO HS #30 tabs 10/09/24 10/19/24 Rx pantoprazole 40 mg tablet,delayed 40 mg PO HS #90 tabs 10/09/24 10/19/24 Rx release insulin glargine 100 unit/mL (3 100 unit SQ BID #15 mL 10/15/24 10/19/24 Rx mL) subcutaneous pen (Lantus Solostar U-100 Insulin) furosemide 40 mg tablet 40 mg PO DAILY #90 tabs 10/16/24 10/19/24 Rx aspirin 81 mg tablet,delayed 81 mg PO DAILY 10/20/24 10/19/24 History release (Darshana Low Dose Aspirin) ferrous sulfate 325 mg (65 mg 325 mg PO DAILY 10/20/24 10/20/24 History iron) tablet (Feosol) levothyroxine 200 mcg tablet 200 mcg PO DAILY 10/20/24 10/20/24 History lubiprostone 8 mcg capsule 8 mcg PO BID 10/20/24 10/20/24 History ondansetron 4 mg disintegrating 4 mg PO Q8HP PRN nausea and 10/20/24 10/20/24 History tablet vomiting semaglutide 1 mg/dose (4 mg/3 mL) 1 mg SQ WEEKLY 10/20/24 10/20/24 History subcutaneous pen injector (Ozempic) New Prescriptions to Start Prescriptions: Allergies Allergy/AdvReac Type Severity Reaction Status Date / Time canagliflozin (From [facility]) Allergy Severe kidney Verified 08/27/24 12:32 issues Exam (Inpt) Vital signs and Labs for Last 24 Hours: Temp Pulse Resp BP Pulse Ox O2 Del Method O2 Flow Rate 97.6 F 83 17 126/75 94 L Room Air 2 10/25/24 08:00 10/25/24 08:00 10/25/24 08:00 10/25/24 08:00 10/25/24 08:00 10/25/24 10:11 10/22/24 20:00 Laboratory Results - last 24 hr 10/23/24 10:45: Blood Type A Positive, Antibody Screen Negative, Crossmatch (AHG) See Detail 10/24/24 05:42: POC Glucose 149 H 10/24/24 12:11: POC Glucose 111 H 10/24/24 17:03: POC Glucose 59 L 10/24/24 20:01: POC Glucose 75 10/24/24 23:59: POC Glucose 72 10/25/24 05:01: POC Glucose 174 H 10/25/24 05:44: WBC 6.2, RBC 2.21 L, Hgb 6.2 L*, Hct 20.1 L*, MCV 91.0, MCH 28.1, MCHC 30.8 L, RDW 21.6 H, Plt Count 210, MPV 8.8, Neut % (Auto) 49.6, Lymph % (Auto) 35.4, [place] % (Auto) 11.9 H, Eos % (Auto) 2.1, Baso % (Auto) 0.5, Neut # (Auto) 3.1, Lymph # (Auto) 2.2, [place] # (Auto) 0.7, Eos # (Auto) 0.1, Baso # (Auto) 0.0, Total Counted 100, Neutrophils % (Manual) 54, Lymphocytes % (Manual) 39, Monocytes % (Manual) 5, Eosinophils % (Manual) 2, Platelet Estimate Normal, RBC Morphology Normal, Sodium 130 L, Potassium 4.4, Chloride 102, Carbon Dioxide 26, Anion Gap 6.4, BUN 31 H, Creatinine 1.30 H, Estimated Creat Clear 54, Estimated GFR 42 L, Est GFR ( Amer) 50 L, Glucose 130 H, Calcium 8.2 L 10/25/24 06:33: POC Glucose 177 H 10/25/24 10:02: POC Glucose 78 I & O for Labs for Last 24 Hours: Intake & Output 10/22/24 10/23/24 10/24/24 10/25/24 23:59 23:59 23:59 23:59 Intake Total 160 / 160 1300 / 1540 1300 / 1780 480 / 480 Output Total 2700 / 2700 1400 / 1400 300 / 700 600 / 600 Balance -2540 / -2540 -100 / 140 1000 / 1080 -120 / -120 Weight 165 lb 9.286 oz 163 lb 3.2 oz 165 lb 6 oz 168 lb 8 oz Microbiology Reports for the Last 24 Hours: Microbiology 10/22/24 07:43 Toe,Second Right Gram Stain - Final 10/22/24 07:43 Toe,Second Right Wound Culture - Final Staphylococcus aureus 10/19/24 20:35 Blood Blood Culture - Final NO GROWTH AFTER 5 DAYS 10/23/24 08:17 Toe,Left Fifth Gram Stain - Final 10/23/24 08:17 Toe,Left Fifth Surgical Biopsy Culture - Preliminary NO GROWTH AFTER 24 HOURS 10/23/24 08:17 Foot,Right - Right Gram Stain - Final 10/23/24 08:17 Foot,Right - Right Surgical Biopsy Culture - Preliminary NO GROWTH AFTER 24 HOURS 10/23/24 08:17 Foot,Left - Left Bone Culture - Preliminary Comments:: Normoactive bowel sounds, nondistended, nontender, benign abdomen Results Labs 10/25/24 05:44 10/25/24 05:44 Labs: Laboratory Results - last 24 hr 10/23/24 10:45: Blood Type A Positive, Antibody Screen Negative, Crossmatch (AHG) See Detail 10/24/24 05:42: POC Glucose 149 H 10/24/24 12:11: POC Glucose 111 H 10/24/24 17:03: POC Glucose 59 L 10/24/24 20:01: POC Glucose 75 10/24/24 23:59: POC Glucose 72 10/25/24 05:01: POC Glucose 174 H 10/25/24 05:44: WBC 6.2, RBC 2.21 L, Hgb 6.2 L*, Hct 20.1 L*, MCV 91.0, MCH 28.1, MCHC 30.8 L, RDW 21.6 H, Plt Count 210, MPV 8.8, Neut % (Auto) 49.6, Lymph % (Auto) 35.4, [place] % (Auto) 11.9 H, Eos % (Auto) 2.1, Baso % (Auto) 0.5, Neut # (Auto) 3.1, Lymph # (Auto) 2.2, [place] # (Auto) 0.7, Eos # (Auto) 0.1, Baso # (Auto) 0.0, Total Counted 100, Neutrophils % (Manual) 54, Lymphocytes % (Manual) 39, Monocytes % (Manual) 5, Eosinophils % (Manual) 2, Platelet Estimate Normal, RBC Morphology Normal, Sodium 130 L, Potassium 4.4, Chloride 102, Carbon Dioxide 26, Anion Gap 6.4, BUN 31 H, Creatinine 1.30 H, Estimated Creat Clear 54, Estimated GFR 42 L, Est GFR ( Amer) 50 L, Glucose 130 H, Calcium 8.2 L 10/25/24 06:33: POC Glucose 177 H 10/25/24 10:02: POC Glucose 78 Assessment and Plan *Assessment and plan (1) Profound anemia: Status: Acute Category: Medical Code(s): D64.9 - Anemia, unspecified Plan 1. Profound anemia. The patient's iron levels are normal and she is Hemoccult negative. There is no signs of any acute or chronic GI blood loss. My first thought is possible hemolysis. She may need hematology consultation. I would recommend hemolysis panel and reticulocyte count. Her MCV is normal with high RDW. Her iron levels are normal but she could be low in B12, folate or copper. I do not feel that we should do colonoscopy or endoscopy presently since there is no signs of GI blood loss. When she is more clinically stable, this would be a consideration.
[2024-10-25 10:54] LABS: Vancomycin,Trough 31.7 ug/mL (5.0-10.0)
--- NOTE | 2024-10-25 11:04 | P.CONPHA_ITS ---
Pharmacy Consult Date: 10/25/24 Time: 11:04 Referring provider: DR HAMILTON Reason for Consult:: VANCOMYCIN TROUGH LEVEL OBTAINED Allergies Allergy/AdvReac Type Severity Reaction Status Date / Time canagliflozin (From [facility]) Allergy Severe kidney Verified 08/27/24 12:32 issues Home Medications ?Medication ?Instructions ?Recorded ?Confirmed ?Type amitriptyline 50 mg tablet 50 mg PO HS 04/14/24 10/19/24 History atorvastatin 80 mg tablet 40 mg PO HS 04/14/24 10/19/24 History bupropion HCl 150 mg tablet,12 hr 150 mg PO BID 04/14/24 10/19/24 History sustained-release pramipexole 0.5 mg tablet 0.5 mg PO DAILY 04/14/24 10/19/24 History gabapentin 800 mg tablet 800 mg PO Q6H 04/15/24 10/19/24 History hydrocodone 10 mg-acetaminophen 1 tab PO Q6H 04/15/24 10/19/24 History 325 mg tablet spironolactone 25 mg tablet 25 mg PO DAILY 04/15/24 10/19/24 History blood-glucose meter #1 ea 04/17/24 10/19/24 Rx insulin lispro 100 unit/mL 20 unit SQ BID 04/24/24 10/19/24 History subcutaneous pen sennosides 8.6 mg tablet (Senna 17.2 mg (2 x 8.6 mg) PO DAILY 30 04/24/24 10/19/24 Rx Laxative) days #60 tabs polyethylene glycol 3350 17 17 g PO DAILY 05/21/24 10/19/24 History gram/dose oral powder (Miralax) magnesium oxide 400 mg (241.3 mg 400 mg PO DAILY #90 tabs 08/22/24 10/19/24 Rx magnesium) tablet citalopram 20 mg tablet 20 mg PO DAILY #90 tabs 08/30/24 10/19/24 Rx allopurinol 100 mg tablet 100 mg PO DAILY #30 tabs 10/09/24 10/19/24 Rx carvedilol 25 mg tablet 12.5 mg (1/2 x 25 mg) PO BID #60 10/09/24 10/19/24 Rx tabs clopidogrel 75 mg tablet 75 mg PO DAILY #30 tabs 10/09/24 10/19/24 Rx lisinopril 40 mg tablet 40 mg PO HS #30 tabs 10/09/24 10/19/24 Rx pantoprazole 40 mg tablet,delayed 40 mg PO HS #90 tabs 10/09/24 10/19/24 Rx release insulin glargine 100 unit/mL (3 100 unit SQ BID #15 mL 10/15/24 10/19/24 Rx mL) subcutaneous pen (Lantus Solostar U-100 Insulin) furosemide 40 mg tablet 40 mg PO DAILY #90 tabs 10/16/24 10/19/24 Rx aspirin 81 mg tablet,delayed 81 mg PO DAILY 10/20/24 10/19/24 History release (Darshana Low Dose Aspirin) ferrous sulfate 325 mg (65 mg 325 mg PO DAILY 10/20/24 10/20/24 History iron) tablet (Feosol) levothyroxine 200 mcg tablet 200 mcg PO DAILY 10/20/24 10/20/24 History lubiprostone 8 mcg capsule 8 mcg PO BID 10/20/24 10/20/24 History ondansetron 4 mg disintegrating 4 mg PO Q8HP PRN nausea and 10/20/24 10/20/24 History tablet vomiting semaglutide 1 mg/dose (4 mg/3 mL) 1 mg SQ WEEKLY 10/20/24 10/20/24 History subcutaneous pen injector (Ozempic) New Prescriptions to Start Prescriptions: Height: 1.57 m Weight: 76.43 kg Laboratory Results:: Laboratory Results - last 24 hr 10/23/24 10:45: Blood Type A Positive, Antibody Screen Negative, Crossmatch (AHG) See Detail 10/24/24 05:42: POC Glucose 149 H 10/24/24 12:11: POC Glucose 111 H 10/24/24 17:03: POC Glucose 59 L 10/24/24 20:01: POC Glucose 75 10/24/24 23:59: POC Glucose 72 10/25/24 05:01: POC Glucose 174 H 10/25/24 05:44: WBC 6.2, RBC 2.21 L, Hgb 6.2 L*, Hct 20.1 L*, MCV 91.0, MCH 28.1, MCHC 30.8 L, RDW 21.6 H, Plt Count 210, MPV 8.8, Neut % (Auto) 49.6, Lymph % (Auto) 35.4, [place] % (Auto) 11.9 H, Eos % (Auto) 2.1, Baso % (Auto) 0.5, Neut # (Auto) 3.1, Lymph # (Auto) 2.2, [place] # (Auto) 0.7, Eos # (Auto) 0.1, Baso # (Auto) 0.0, Total Counted 100, Neutrophils % (Manual) 54, Lymphocytes % (Manual) 39, Monocytes % (Manual) 5, Eosinophils % (Manual) 2, Platelet Estimate Normal, RBC Morphology Normal, Sodium 130 L, Potassium 4.4, Chloride 102, Carbon Dioxide 26, Anion Gap 6.4, BUN 31 H, Creatinine 1.30 H, Estimated Creat Clear 54, Estimated GFR 42 L, Est GFR ( Amer) 50 L, Glucose 130 H, Calcium 8.2 L 10/25/24 06:33: POC Glucose 177 H 10/25/24 10:02: POC Glucose 78 10/25/24 10:03: Vancomycin Trough 31.7 H Medical History: Medical History (Updated 10/25/24 @ 10:59 by Bobby Pike II, MD) Osteomyelitis Tobacco dependence syndrome Hypertension Peripheral arterial disease CAD (coronary atherosclerotic disease) T2DM (type 2 diabetes mellitus) Decreased pedal pulses Ulcer of second toe of right foot Pulmonary edema Abnormal ankle brachial index (ELLIE) Acute on chronic systolic heart failure Closed left ankle fracture Elevated left ventricular end-diastolic pressure (LVEDP) Edema of both lower extremities Syncope Abnormal result of cardiovascular function study Typical angina Arthritis GERD (gastroesophageal reflux disease) Depression COPD (chronic obstructive pulmonary disease) Arrhythmia Hyperlipidemia Assessment and Plan Assessment and plan all Dx Assessment and Plan for all problems:: Pharmacokinetic dosing service Weight: 76.43 Kilograms Vancomycin single level analysis: Current dose being given: 1250 mg Current dosing interval: 24 hrs Current infusion time (hrs): 2 Single level Trough Data: Trough level obtained: 31.7 mcg/ml Timing of trough - # of hrs before next dose: 0.5 Hrs Desired peak: 35 mcg/ml Desired trough: 12.7 mcg/ml Estimated PK Parameters: New rate constant (tonio): 0.023 hr-1 Half-life: 30.14 Hours Vd from levels: 53.50 Liters (0.7 L/kg) CLvanco=?? 1.230 L/hr Estimated New Dose and Interval Recommended dose: 1252.3 mg Recommended interval: 46.1 Hrs Recommendations: Give Vancomycin 1250 mg q 48 hrs. Infuse over 2 hrs Expected Cpeak: 34.2 mcg/mL Expected Ctrough: 11.9 mcg/mL HOLDING UNTIL 10/26/24 AT 1100, ORDERED VANCOMYCIN RANDOM LEVEL 10/26/24 AT 1000 TO ENSURE PATIENT IS CLEARING VANCOMYCIN APPROPRIATELY. AUC 0-24 /YAMIL Data: YAMIL 0.5 mcg/mL:?? AUC/YAMIL:? 1016.3 YAMIL 1.0 mcg/mL:?? AUC/YAMIL:? 508.1 Thank you for the consult
[2024-10-25] MEDS: SUCRALFATE 1GM TABLET 1 GM PO ×3 (11:37→20:14)
[2024-10-25] MEDS: PANTOPRAZOLE 40MG VIAL 40 MG IV ×2 (11:37→20:14)
[2024-10-25 11:42] LABS: Lactate Dehydrogenase 212 U/L (313-618); Uric Acid 8.3 mg/dl (2.5-6.2)
[2024-10-25] MEDS: VITAMIN B-12 1,000 MCG 1ML VIAL 1000 MCG IM (11:48)
--- NOTE | 2024-10-25 11:52 | PC.NURSE ---
Md. Adrien alvarez to use picc.
--- NOTE | 2024-10-25 12:06 | PC.NURSE ---
fsbg of 44 Md. aware and iv amp of glucose given.
[2024-10-25 17:07] LABS: POC Glucose,Bedside 123 (70-110)
[2024-10-25] MEDS: HYDROCODONE 10MG/APAP 325MG TAB 1 TAB PO ×2 (18:23→23:32)
[2024-10-25 19:49] LABS: Hematocrit 27.2 % (37.0-47.0)
[2024-10-25 20:11] LABS: Hemoglobin 8.6 g/dL (12.2-16.2)
[2024-10-25] MEDS: AMITRIPTYLINE 50MG TABLET 50 MG PO (20:14)
[2024-10-25] MEDS: ATORVASTATIN 40MG TABLET 40 MG PO (20:14)
[2024-10-25] MEDS: LISINOPRIL 20MG TABLET 40 MG PO (20:14)
[2024-10-25 20:32] LABS: POC Glucose,Bedside 232 (70-110)
--- NOTE | 2024-10-25 21:53 | EXP.PN ---
Subjective *Date: 10/25/24 *Time: 21:53 Interval history: Patient doing well this morning. Glucose in the 40s in the afternoon, discontinue Farxiga. Anemic again today, received 2 units. Did have bleeding in the right foot amputation site. Exam Data for Last 24 hours Vital signs and Labs for Last 24 Hours: Temp Pulse Resp BP Pulse Ox O2 Del Method O2 Flow Rate 98.1 F 82 18 111/57 L 98 Room Air 2 10/25/24 20:00 10/25/24 20:00 10/25/24 20:00 10/25/24 20:00 10/25/24 20:00 10/25/24 20:00 10/22/24 20:00 Laboratory Results - last 24 hr 10/23/24 10:45: Blood Type A Positive, Antibody Screen Negative, Crossmatch (AHG) See Detail 10/24/24 23:59: POC Glucose 72 10/25/24 05:01: POC Glucose 174 H 10/25/24 05:44: WBC 6.2, RBC 2.21 L, Hgb 6.2 L*, Hct 20.1 L*, MCV 91.0, MCH 28.1, MCHC 30.8 L, RDW 21.6 H, Plt Count 210, MPV 8.8, Neut % (Auto) 49.6, Lymph % (Auto) 35.4, [place] % (Auto) 11.9 H, Eos % (Auto) 2.1, Baso % (Auto) 0.5, Neut # (Auto) 3.1, Lymph # (Auto) 2.2, [place] # (Auto) 0.7, Eos # (Auto) 0.1, Baso # (Auto) 0.0, Total Counted 100, Neutrophils % (Manual) 54, Lymphocytes % (Manual) 39, Monocytes % (Manual) 5, Eosinophils % (Manual) 2, Platelet Estimate Normal, RBC Morphology Normal, Sodium 130 L, Potassium 4.4, Chloride 102, Carbon Dioxide 26, Anion Gap 6.4, BUN 31 H, Creatinine 1.30 H, Estimated Creat Clear 54, Estimated GFR 42 L, Est GFR ( Amer) 50 L, Glucose 130 H, Calcium 8.2 L 10/25/24 06:33: POC Glucose 177 H 10/25/24 10:02: POC Glucose 78 10/25/24 10:03: Uric Acid 8.3 H, Lactate Dehydrogenase 212 L, Vancomycin Trough 31.7 H 10/25/24 16:58: POC Glucose 123 H 10/25/24 19:38: Hgb 8.6 L D, Hct 27.2 L 10/25/24 20:23: POC Glucose 232 H I & O for Last 24 hours: Intake & Output 10/22/24 10/23/24 10/24/24 10/25/24 23:59 23:59 23:59 23:59 Intake Total 160 / 160 1300 / 1540 1300 / 1780 600 / 600 Output Total 2700 / 2700 1400 / 1400 300 / 700 600 / 600 Balance -2540 / -2540 -100 / 140 1000 / 1080 0 / 0 Weight 75.106 kg 74.026 kg 75.013 kg 76.43 kg Microbiology Reports for the Last 24 Hours: Microbiology 10/23/24 08:17 Toe,Left Fifth Gram Stain - Final 10/23/24 08:17 Toe,Left Fifth Surgical Biopsy Culture - Preliminary NO GROWTH AFTER 48 HOURS 10/23/24 08:17 Foot,Left - Left Bone Culture - Preliminary 10/23/24 08:17 Foot,Right - Right Second Bone Culture - Preliminary 10/23/24 08:17 Foot,Right - Right Gram Stain - Final 10/23/24 08:17 Foot,Right - Right Surgical Biopsy Culture - Preliminary 10/22/24 07:43 Toe,Second Right Gram Stain - Final 10/22/24 07:43 Toe,Second Right Wound Culture - Final Staphylococcus aureus 10/19/24 20:35 Blood Blood Culture - Final NO GROWTH AFTER 5 DAYS Constitutional Constitutional: no acute distress *Routine HEENT Exam Head: Present normocephalic Eye: Present EOMI and PERRL ENT: Present mucous membranes moist *Routine Neck Exam Neck: Present supple; Absent lymphadenopathy *Routine Respiratory Exam Respiratory: Present CTA bilaterally *Routine Cardiovascular Exam Cardiovascular: Present RRR *Routine Abdominal Exam Abdominal: Present soft and normoactive bowel sounds; Absent tenderness *Routine Extremities Exam Extremities: Present edema; Absent cyanosis or clubbing *Routine Skin Exam Skin: Present warm; Absent rash *Routine Neurological Exam Neurological: Present alert and oriented X3 Assessment and Plan *Assessment and plan (1) Pulmonary edema: Status: Acute Qualifiers: Chronicity: acute Qualified Code(s): J81.0 - Acute pulmonary edema Category: Medical Code(s): J81.1 - Chronic pulmonary edema (2) Acute on chronic systolic heart failure: Status: Acute Category: Medical Code(s): I50.23 - Acute on chronic systolic (congestive) heart failure (3) Osteoarthritis of toe: Status: Acute Category: Medical Code(s): M19.079 - Primary osteoarthritis, unspecified ankle and foot (4) Cellulitis of foot: Status: Acute Category: Medical Code(s): L03.119 - Cellulitis of unspecified part of limb (5) Iron deficiency: Status: Acute Category: Medical Code(s): E61.1 - Iron deficiency (6) T2DM (type 2 diabetes mellitus): Status: Acute Qualifiers: Diabetes mellitus custodial insulin use: with custodial use Diabetes mellitus complication status: with diabetic arthropathy Diabetes mellitus complication detail: with neuropathic arthropathy Qualified Code(s): E11.610 - Type 2 diabetes mellitus with diabetic neuropathic arthropathy; 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 Category: Medical Code(s): E11.9 - Type 2 diabetes mellitus without complications (7) Hyperlipidemia: Status: Acute Qualifiers: Hyperlipidemia type: unspecified Qualified Code(s): E78.5 - Hyperlipidemia, unspecified Category: Medical Code(s): E78.5 - Hyperlipidemia, unspecified (8) Peripheral arterial disease: Status: Acute Category: Medical Code(s): I73.9 - Peripheral vascular disease, unspecified (9) 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: Status: Acute Qualifiers: Fracture type: closed Fracture alignment: nondisplaced Qualified Code(s): S92.355K - Nondisplaced fracture of fifth metatarsal bone, left foot, subsequent encounter for fracture with nonunion Category: Medical Code(s): S92.352K - Displaced fracture of fifth metatarsal bone, left foot, subsequent encounter for fracture with nonunion (10) Decreased pedal pulses: Status: Acute Category: Medical Code(s): R09.89 - Other specified symptoms and signs involving the circulatory and respiratory systems Plan 64-year-old female who presented with shortness of breath. Had prolonged course of treatment at over the past few months for infection and knee along with amputation of toe. Presented with new oxygen requirement due to her hypoxia. Appears frankly volume overloaded. Initiated on aggressive diuresis and supplemental oxygen. Podiatry and cardiology assisting with care. Necessitates inpatient care. Problems addressed as follows #Iron deficiency anemia #Acute on chronic anemia #Low folic acid ? Hemoglobin again dropped to 6.2 this morning. There was some bleeding at amputation site in her right foot, but not enough to explain drop in hemoglobin. ? FOBT yesterday normal. GI consulted, no plan for scope due to low concern for GI bleed at this time. ? Follow-up intravascular hemolysis labs. ? Hemoglobin improved to 8.6 with 2 units PRBC transfusion. ? Low folate levels, started folic acid 1 mg daily. ? Low normal B12 levels, given IM B12 1000 mg. - 200 mg IV Venofer administered during admission. #Recurrent hypoglycemia ? Blood sugars have been recurrently intermittently in the 40s to 60s. In the 40s today with symptoms. ? Hemoglobin A1c 5.3% though artificially low due to anemia. ? Lantus had been discontinued, sliding scale not being administered. ? Farxiga was previously started by cardiology, discontinued today. #Pulmonary edema #Acute on chronic systolic congestive heart failure # Hypertension # Hyperlipidemia - Bilateral lower extremity edema, chest x-ray with pulmonary edema. Known history of systolic heart failure per chart review at (unknown EF) - Initiated on IV diuresis with proBNP of >30,000. Continue Lasix 80 mg PO twice daily - Echo obtained with EF reduced to 40%, grade 2 diastolic dysfunction present. - Continue home medications for heart failure and hypertension including Lipitor 40 mg nightly, carvedilol 12 and half milligrams twice daily, Plavix 75 mg daily, lisinopril 40 mg nightly, spironolactone 25 mg daily - Goal sats greater 90%, currently on room air. - Cardiology consulted for PAD, s/p angioplasty of distal SFA and right popliteal artery. #Osteoarthritis of toe, right #Cellulitis of foot right #PAD Prior history of MRSA osteomyelitis. Recent septic knee on the same side. Mild mottling noted but patient reports this is chronic. Toe ulceration worse per patient's report. Continue vancomycin IV, close monitoring for toxicity Podiatry consulted, s/p right second toe amputation, fifth metatarsal bone resection, left fifth metatarsal partial amputation. ? Follow-up bone cultures. - Repeat CBC, CMP, magnesium ordered for the morning. - Hydrocodone 7.5 mg as needed every 6 hours along with gabapentin as needed 800 mg every 6 hours monitor for toxicity. Patient's home medications locked up. ? Patient is agreeable to SNF placement today. [facility] and accept patient when medically stable. #T2DM: Discontinued Lantus today due to persistent hypoglycemia requiring multiple amps of D50. Continue SSI. ? Hemoglobin A1c 5.5, though in the setting of anemia hemoglobin 6.8. ? Follow-up blood sugars. #Hypothyroidism: Continue home levothyroxine 200 mcg daily. ? TSH elevated to 21, previously in the 100s. Suspect nonadherence. Will continue at current dose, and follow-up repeat TFTs in 4 weeks. Continue home gabapentin 800 mg Continue hydrocodone increased to 7.5 mg every 6 hours as needed for pain control. Home regimen is 10 mg. Due to oversedation, will administer slightly smaller dose. High risk for polypharmacy and oversedation Continue stool softeners with Senokot daily for constipation Full code Diabetic diet Lovenox 30 mg
[2024-10-25 23:47] LABS: POC Glucose,Bedside 131 (70-110)
[2024-10-26] VITALS: PULSE 75
[2024-10-26 01:10] LABS: POC Glucose,Bedside 92 (70-110)
--- NOTE | 2024-10-26 01:20 | ECG_ITS ---
APPROVED REPORT Exam: Resting ECG HR:71 bpm ECG Measurements Heart Rate 71 AXES UT 203 P 0 QRSd 165 QRS 6 QT 467 T 69 QTc 490 Conclusion SINUS RHYTHM INDETERMINATE AXIS RIGHT BUNDLE BRANCH BLOCK [120+ ms QRS DURATION, UPRIGHT V1, 40+ ms S IN I/aVL/V4/V5/V6] ABNORMAL ECG UNCONFIRMED REPORT Electronically signed by : José Miguel Isabel MD 10/28/2024 06:42:36
[2024-10-26 03:55] LABS: POC Glucose,Bedside 98 (70-110)
[2024-10-26 04:00] VITALS: BP 97/61; PULSE 74; RESP 18; TEMP 36.4; O2SAT 99; BMI 30.4
--- NOTE | 2024-10-26 04:13 | PC.NURSE ---
Pt AOx4. Has had gradual decrease in glucose. Held insulin at beginning of shift d/t patient refusal and fear of dropping glucose too low. Last check was 98. Pt denies pain or any additional needs at this time. Respirations even and unlabored. Bed low, locked, and call light in reach.
--- NOTE | 2024-10-26 05:02 | PC.NURSE ---
Reading sales representative cash registers strips, noticed patient possibly has rhythm change to afib as P waves were absent, notified Johnnie Waddell APRN notified, EKG done, NSR on EKG, P waves very faint to see on the strip.
[2024-10-26 05:18] LABS: POC Glucose,Bedside 126 (70-110)
[2024-10-26] MEDS: LEVOTHYROXINE 100MCG (0.1MG) TAB 200 MCG PO (06:02)
[2024-10-26] MEDS: SUCRALFATE 1GM TABLET 1 GM PO ×2 (06:02→11:09)
[2024-10-26 06:21] LABS: Insulin Level Total 16.9 uIU/mL (2.6-24.9)
[2024-10-26 07:30] LABS: Basophils % 0.6 % (0.1-2.0); Eosinophils # 0.2 Kmm3 (0.0-0.4); Eosinophils % 2.4 % (0.1-12.0); Hematocrit 31.2 % (37.0-47.0); Immature Granulocytes # 0.04 10^3uL; Immature Granulocytes % 0.6 %; Lymphocytes # 1.9 K/mm3 (0.7-4.5); Lymphocytes % 28.5 % (10-50); Mean Corpuscular HGB Conc 31.7 g/dL (31.8-35.4); Mean Corpuscular Hemoglobin 28.4 pg (27.0-31.2); Mean Corpuscular Volume 89.4 fl (81-99); Mean Platelet Volume 8.7 fl (7.4-10.4); Monocytes # 0.8 K/mm3 (0.1-1.0); Monocytes % 11.9 % (1.7-9.3); Neutrophils # 3.7 K/mm3 (1.8-7.8); Nucleated Red Blood Cells # 0 10^3/uL; Nucleated Red Blood Cells % 0 %; Platelet Count 213 K/mm3 (142-424); Red Blood Count 3.49 M/mm3 (4.20-5.40); Red Cell Distribution Width 20.2 % (11.5-17.5); Red Cell Distribution Width-SD 64.9 fL; White Blood Count 6.6 K/mm3 (4.8-10.8)
[2024-10-26 07:37] LABS: Magnesium 2.2 mg/dl (1.6-2.3)
[2024-10-26 07:38] LABS: Alanine Aminotransferase 12 U/L (12-78); Albumin Level 3.6 g/dl (3.5-5.0); Albumin/Globulin Ratio 1.1 (1.1-1.8); Alkaline Phosphatase 121 U/L (38-126); Anion Gap 10.8 mEq/L (5-15); Aspartate Amino Transferase 25 U/L (14-36); Bilirubin,Total 0.5 mg/dl (0.2-1.3); Blood Urea Nitrogen 32 mg/dl (7-17); Calcium 9.1 mg/dl (8.4-10.2); Carbon Dioxide 29 mmol/L (22.0-30.0); Chloride 98 mmol/L (98-107); Creatinine Clearance Estimated 53 mL/min (50-200); Estimated Glomerular Filt Rate 42 ml/min (>60); GFR (African American) 50 ML/MIN (>60); Globulin 3.3 g/dL (1.3-3.2); Glucose 97 mg/dl (74-100); Potassium 4.8 mmoL/L (3.5-5.1); Sodium 133 mmol/L (136-145); Total Protein,Serum 6.9 g/dl (6.3-8.2)
[2024-10-26 07:45] LABS: Hemoglobin 9.8 g/dL (12.2-16.2)
[2024-10-26 08:00] VITALS: BP 123/66; PULSE 80; PULSE 81; RESP 16; TEMP 36.5; O2SAT 98
[2024-10-26 08:13] LABS: Haptoglobin 149 mg/dL (37-355)
--- NOTE | 2024-10-26 08:14 | P.DS_ITS ---
General Admission date:: 10/19/24 HPI HPI HPI: Mrs. Hernandez is a 64-year-old female who is admitted with pulmonary edema and bilateral lower extremity DFU. And struggling with recent septic joint and right knee. She has wound infection and possible osteomyelitis and is followed by orthopedics and has been seen by Dr. Finnegan at [facility]. The patient also has had marked/profound anemia and today her hemoglobin and hematocrit are 6.2 and 20.1. The patient's iron studies were normal with ferritin of 216, serum iron 74, iron saturation 24.2%. She is Hemoccult negative. She is not showing any signs of melena, hematochezia or bright red blood per rectum. She reports no abdominal pain. GI was consulted. Patient's last colonoscopy was several years ago. She did have an abdominal CAT scan in March 2020 for that showed some biliary and pancreatic ductal dilation and her alkaline phosphatase has variably been elevated but her bilirubin is normal. Her prior CAT scan had shown some mild constipation and an area of mural thickening along the splenic flexure felt to be most likely artifactual. Hospital Course Hospital Course Hospital Course: Micheline Hernandez is a 64-year-old female who presented with shortness of breath. Had prolonged course of treatment at over the past few months for infection and knee along with amputation of toe. Presented with new oxygen requirement due to her hypoxia. Appeared frankly volume overloaded. Initiated on aggressive diuresis and supplemental oxygen. #Acute on chronic HFrEF she was recently found to have #Pulmonary edema #Hypertension #Hyperlipidemia #PAD - Bilateral lower extremity edema, chest x-ray with pulmonary edema. - Initiated on IV diuresis with proBNP of >30,000. Symptoms significantly improved. - Echo obtained with EF reduced to 40%, grade 2 diastolic dysfunction present. - Lasix 80mg BID, carvedilol 12.5mg BID, Plavix 75 mg daily, lisinopril 40 mg, spironolactone 25 mg daily. - Cardiology consulted for PAD, s/p angioplasty of distal SFA and right popliteal artery. #Osteoarthritis of toe, right #Cellulitis of foot right - Prior history of MRSA osteomyelitis. Recent septic knee on the same side. Mild mottling noted but patient reports this is chronic. Toe ulceration worse per patient's report. - Podiatry consulted, s/p right second toe amputation, fifth metatarsal bone resection, left fifth metatarsal partial amputation. - Cultures growing MSSA. - Hydrocodone 10mg as needed every 6 hours along - Reduced gabapentin 400mg QID due to concern of overmedication. ? Patient is agreeable to SNF placement. [facility] graciously accepted patient. - Continue IV Daptomycin with PICC for a total of 6 weeks until November 30, 2024 per podiatry. - Fall risk: b/l DME (left post op shoe, right short fracture boot with walker). - needs PICC, IV abx x6 weeks (Rec: Dapto 1g IV daily). - Will needs daily dressing changes as above. - Please fax weekly labs: cbc, cmp, esr, crp, cpk/total ck to her PCP Ramos Morales and fax to Podiatry @[phone]. - Will need weekly outpatient f/u with Podiatry. #Hypothyroidism - Continue home levothyroxine 200 mcg daily. ? TSH elevated to 21, previously in the 100s. Suspect nonadherence. Will continue at current dose, and follow-up repeat TFTs in 4 weeks. #Iron deficiency anemia #Acute on chronic anemia #Low folic acid ? Hemoglobin again dropped to 6.2 during admission morning. Improved to Hgb 9.8 after pRBC transfusion. There was some bleeding at amputation site in her right foot. ? FOBT normal. GI consulted, no plan for scope due to low concern for GI bleed at this time. ? Intravascular hemolysis labs normal. ? Low folate levels, started folic acid 1 mg daily. ? Low normal B12 levels, started B12 1000mcg daily. - 200 mg IV Venofer administered during admission. #History of T2DM #Recurrent hypoglycemia ? Blood sugars have been recurrently in the 40s to 60s with symptoms. ? Hemoglobin A1c 5.3% though artificially low due to anemia. ? Lantus had been discontinued, sliding scale not being administered. ? Farxiga was previously started by cardiology, discontinued today. #Polyarthritis #Chronic pain syndrome - Continue home [place]. Total time spent on discharge: 35 minutes on chart review, counseling, documentation, and direct care with patient. Exam Data for Last 24 hours Vital signs and Labs for Last 24 Hours: Temp Pulse Resp BP Pulse Ox O2 Del Method O2 Flow Rate 97.6 F 74 18 97/61 L 99 Room Air 2 05/09/25 04:00 10/26/24 04:00 10/26/24 04:00 10/26/24 04:00 10/26/24 04:00 10/26/24 06:32 10/22/24 20:00 Laboratory Results - last 24 hr 10/23/24 10:45: Blood Type A Positive, Antibody Screen Negative, Crossmatch (AHG) See Detail 10/25/24 06:34: Haptoglobin 149, Total Insulin 16.9, C-Peptide 5.0 H 10/25/24 10:02: POC Glucose 78 10/25/24 10:03: Uric Acid 8.3 H, Lactate Dehydrogenase 212 L, Vancomycin Trough 31.7 H 10/25/24 16:58: POC Glucose 123 H 10/25/24 19:38: Hgb 8.6 L D, Hct 27.2 L 10/25/24 20:23: POC Glucose 232 H 10/25/24 23:34: POC Glucose 131 H 10/26/24 01:03: POC Glucose 92 10/26/24 03:47: POC Glucose 98 10/26/24 05:11: POC Glucose 126 H 10/26/24 07:16: WBC 6.6, RBC 3.49 L D, Hgb 9.8 L D, Hct 31.2 L, MCV 89.4, MCH 28.4, MCHC 31.7 L, RDW 20.2 H, Plt Count 213, MPV 8.7, Neut % (Auto) 56.0, Lymph % (Auto) 28.5, [place] % (Auto) 11.9 H, Eos % (Auto) 2.4, Baso % (Auto) 0.6, Neut # (Auto) 3.7, Lymph # (Auto) 1.9, [place] # (Auto) 0.8, Eos # (Auto) 0.2, Baso # (Auto) 0.0, Sodium 133 L, Potassium 4.8, Chloride 98, Carbon Dioxide 29, Anion Gap 10.8, BUN 32 H, Creatinine 1.30 H, Estimated Creat Clear 53, Estimated GFR 42 L, Est GFR ( Amer) 50 L, Glucose 97, Calcium 9.1, Magnesium 2.2, Total Bilirubin 0.5, AST 25, ALT 12, Alkaline Phosphatase 121, Total Protein 6.9, Albumin 3.6, Globulin 3.3 H, Albumin/Globulin Ratio 1.1 I & O for Last 24 hours: Intake & Output 10/23/24 10/24/24 10/25/24 10/26/24 23:59 23:59 23:59 23:59 Intake Total 1300 / 1540 1300 / 1780 600 / 600 Output Total 1400 / 1400 300 / 700 600 / 600 700 / 700 Balance -100 / 140 1000 / 1080 0 / 0 -700 / -700 Weight 74.026 kg 75.013 kg 76.43 kg 75.07 kg Microbiology Reports for the Last 24 Hours: Microbiology 10/23/24 08:17 Toe,Left Fifth Gram Stain - Final 10/23/24 08:17 Toe,Left Fifth Surgical Biopsy Culture - Preliminary NO GROWTH AFTER 48 HOURS 10/23/24 08:17 Foot,Left - Left Bone Culture - Preliminary 10/23/24 08:17 Foot,Right - Right Second Bone Culture - Preliminary 10/23/24 08:17 Foot,Right - Right Gram Stain - Final 10/23/24 08:17 Foot,Right - Right Surgical Biopsy Culture - Preliminary 10/22/24 07:43 Toe,Second Right Gram Stain - Final 10/22/24 07:43 Toe,Second Right Wound Culture - Final Staphylococcus aureus Constitutional Constitutional: no acute distress *Routine HEENT Exam Head: Present normocephalic Eye: Present EOMI and PERRL ENT: Present mucous membranes moist *Routine Neck Exam Neck: Present supple; Absent lymphadenopathy *Routine Respiratory Exam Respiratory: Present CTA bilaterally *Routine Cardiovascular Exam Cardiovascular: Present RRR *Routine Abdominal Exam Abdominal: Present soft and normoactive bowel sounds; Absent tenderness *Routine Extremities Exam Extremities: Absent cyanosis, clubbing or edema Comments: Bilateral feet dressed and Willie wrapped. *Routine Skin Exam Skin: Present warm; Absent rash *Routine Neurological Exam Neurological: Present alert and oriented X3 Results Data Completed and Pending Labs on day of discharge: Labs from last 24 hours 10/26/24 10/26/24 10/26/24 07:16 05:11 03:47 WBC 6.6 RBC 3.49 L D Hgb 9.8 L D Hct 31.2 L MCV 89.4 MCH 28.4 MCHC 31.7 L RDW 20.2 H Plt Count 213 MPV 8.7 Neut % (Auto) 56.0 Lymph % (Auto) 28.5 [place] % (Auto) 11.9 H Eos % (Auto) 2.4 Baso % (Auto) 0.6 Neut # (Auto) 3.7 Lymph # (Auto) 1.9 [place] # (Auto) 0.8 Eos # (Auto) 0.2 Baso # (Auto) 0.0 Haptoglobin Sodium 133 L Potassium 4.8 Chloride 98 Carbon Dioxide 29 Anion Gap 10.8 BUN 32 H Creatinine 1.30 H Estimated Creat Clear 53 Estimated GFR 42 L Est GFR ( Amer) 50 L Glucose 97 POC Glucose 126 H 98 Total Insulin C-Peptide Uric Acid Calcium 9.1 Magnesium 2.2 Total Bilirubin 0.5 AST 25 ALT 12 Alkaline Phosphatase 121 Lactate Dehydrogenase Total Protein 6.9 Albumin 3.6 Globulin 3.3 H Albumin/Globulin Ratio 1.1 Vancomycin Trough Blood Type Antibody Screen Crossmatch ([facility]) 10/26/24 10/25/24 10/25/24 01:03 23:34 20:23 WBC RBC Hgb Hct MCV MCH MCHC RDW Plt Count MPV Neut % (Auto) Lymph % (Auto) [place] % (Auto) Eos % (Auto) Baso % (Auto) Neut # (Auto) Lymph # (Auto) [place] # (Auto) Eos # (Auto) Baso # (Auto) Haptoglobin Sodium Potassium Chloride Carbon Dioxide Anion Gap BUN Creatinine Estimated Creat Clear Estimated GFR Est GFR ( Amer) Glucose POC Glucose 92 131 H 232 H Total Insulin C-Peptide Uric Acid Calcium Magnesium Total Bilirubin AST ALT Alkaline Phosphatase Lactate Dehydrogenase Total Protein Albumin Globulin Albumin/Globulin Ratio Vancomycin Trough Blood Type Antibody Screen Crossmatch ([facility]) 10/25/24 10/25/24 10/25/24 19:38 16:58 10:03 WBC RBC Hgb 8.6 L D Hct 27.2 L MCV MCH MCHC RDW Plt Count MPV Neut % (Auto) Lymph % (Auto) [place] % (Auto) Eos % (Auto) Baso % (Auto) Neut # (Auto) Lymph # (Auto) [place] # (Auto) Eos # (Auto) Baso # (Auto) Haptoglobin Sodium Potassium Chloride Carbon Dioxide Anion Gap BUN Creatinine Estimated Creat Clear Estimated GFR Est GFR ( Amer) Glucose POC Glucose 123 H Total Insulin C-Peptide Uric Acid 8.3 H Calcium Magnesium Total Bilirubin AST ALT Alkaline Phosphatase Lactate Dehydrogenase 212 L Total Protein Albumin Globulin Albumin/Globulin Ratio Vancomycin Trough 31.7 H Blood Type Antibody Screen Crossmatch ([facility]) 10/25/24 10/25/24 10/23/24 10:02 06:34 10:45 WBC RBC Hgb Hct MCV MCH MCHC RDW Plt Count MPV Neut % (Auto) Lymph % (Auto) [place] % (Auto) Eos % (Auto) Baso % (Auto) Neut # (Auto) Lymph # (Auto) [place] # (Auto) Eos # (Auto) Baso # (Auto) Haptoglobin 149 Sodium Potassium Chloride Carbon Dioxide Anion Gap BUN Creatinine Estimated Creat Clear Estimated GFR Est GFR ( Amer) Glucose POC Glucose 78 Total Insulin 16.9 C-Peptide 5.0 H Uric Acid Calcium Magnesium Total Bilirubin AST ALT Alkaline Phosphatase Lactate Dehydrogenase Total Protein Albumin Globulin Albumin/Globulin Ratio Vancomycin Trough Blood Type A Positive Antibody Screen Negative Crossmatch ([facility]) See Detail Preliminary micro results at discharge 10/23/24 08:17 Surgical Biopsy Culture - Preliminary Toe,Left Fifth NO GROWTH AFTER 48 HOURS 10/23/24 08:17 Bone Culture - Preliminary Foot,Left - Left 10/23/24 08:17 Bone Culture - Preliminary Foot,Right - Right Second 10/23/24 08:17 Surgical Biopsy Culture - Preliminary Foot,Right - Right 10/19/24 20:35 Blood Culture - Preliminary Blood DS: Diagnosis Discharge Diagnosis (1) Pulmonary edema: Status: Acute Code(s): J81.1 - Chronic pulmonary edema Qualifiers: Chronicity: acute Qualified Code(s): J81.0 - Acute pulmonary edema (2) Acute on chronic systolic heart failure: Status: Acute Code(s): I50.23 - Acute on chronic systolic (congestive) heart failure (3) Osteoarthritis of toe: Status: Acute Code(s): M19.079 - Primary osteoarthritis, unspecified ankle and foot (4) Cellulitis of foot: Status: Acute Code(s): L03.119 - Cellulitis of unspecified part of limb (5) Iron deficiency: Status: Acute Code(s): E61.1 - Iron deficiency (6) T2DM (type 2 diabetes mellitus): Status: Acute Code(s): E11.9 - Type 2 diabetes mellitus without complications Qualifiers: Diabetes mellitus complication detail: with neuropathic arthropathy Diabetes mellitus complication status: with diabetic arthropathy Diabetes mellitus intermediate insulin use: with intermediate use Qualified Code(s): E11.610 - Type 2 diabetes mellitus with diabetic neuropathic arthropathy; Z79.4 - skilled nursing (current) use of insulin (7) Hyperlipidemia: Status: Acute Code(s): E78.5 - Hyperlipidemia, unspecified Qualifiers: Hyperlipidemia type: unspecified Qualified Code(s): E78.5 - Hyperlipidemia, unspecified (8) Peripheral arterial disease: Status: Acute Code(s): I73.9 - Peripheral vascular disease, unspecified (9) 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: Status: Acute Code(s): S92.352K - Displaced fracture of fifth metatarsal bone, left foot, subsequent encounter for fracture with nonunion Qualifiers: Fracture alignment: nondisplaced Fracture type: closed Qualified Code(s): S92.355K - Nondisplaced fracture of fifth metatarsal bone, left foot, subsequent encounter for fracture with nonunion (10) Decreased pedal pulses: Status: Acute Code(s): R09.89 - Other specified symptoms and signs involving the circulatory and respiratory systems Meds Home Medications and Allergies Home Medications ?Medication ?Instructions ?Recorded ?Confirmed ?Type amitriptyline 50 mg tablet 50 mg PO HS 04/14/24 10/19/24 History atorvastatin 80 mg tablet 40 mg PO HS 04/14/24 10/19/24 History bupropion HCl 150 mg tablet,12 hr 150 mg PO BID 04/14/24 10/19/24 History sustained-release pramipexole 0.5 mg tablet 0.5 mg PO DAILY 04/14/24 10/19/24 History spironolactone 25 mg tablet 25 mg PO DAILY 04/15/24 10/19/24 History blood-glucose meter #1 ea 04/17/24 10/19/24 Rx sennosides 8.6 mg tablet (Senna 17.2 mg (2 x 8.6 mg) PO DAILY 30 04/24/24 10/19/24 Rx Laxative) days #60 tabs polyethylene glycol 3350 17 17 g PO DAILY 05/21/24 10/19/24 History gram/dose oral powder (Miralax) citalopram 20 mg tablet 20 mg PO DAILY #90 tabs 08/30/24 10/19/24 Rx allopurinol 100 mg tablet 100 mg PO DAILY #30 tabs 10/09/24 10/19/24 Rx carvedilol 25 mg tablet 12.5 mg (1/2 x 25 mg) PO BID #60 10/09/24 10/19/24 Rx tabs clopidogrel 75 mg tablet 75 mg PO DAILY #30 tabs 10/09/24 10/19/24 Rx lisinopril 40 mg tablet 40 mg PO HS #30 tabs 10/09/24 10/19/24 Rx pantoprazole 40 mg tablet,delayed 40 mg PO HS #90 tabs 10/09/24 10/19/24 Rx release aspirin 81 mg tablet,delayed 81 mg PO DAILY 10/20/24 10/19/24 History release (Darshana Low Dose Aspirin) ferrous sulfate 325 mg (65 mg 325 mg PO DAILY 10/20/24 10/20/24 History iron) tablet (Feosol) levothyroxine 200 mcg tablet 200 mcg PO DAILY 10/20/24 10/20/24 History lubiprostone 8 mcg capsule 8 mcg PO BID 10/20/24 10/20/24 History ondansetron 4 mg disintegrating 4 mg PO Q8HP PRN nausea and 10/20/24 10/20/24 History tablet vomiting cyanocobalamin (vitamin B-12) 1,000 mcg PO DAILY #30 caps 10/26/24 Rx 1,000 mcg capsule folic acid 1 mg tablet 1 mg PO DAILY 30 days #30 tabs 10/26/24 Rx furosemide 80 mg tablet 80 mg PO BIDL 30 days #60 tabs 10/26/24 Rx gabapentin 800 mg tablet 400 mg (1/2 x 800 mg) PO Q6H 30 10/26/24 10/19/24 Rx days #0 tabs hydrocodone 10 mg-acetaminophen 1 tab PO Q6H pain 30 days #0 tabs 10/26/24 10/19/24 Rx 325 mg tablet New Prescriptions to Start Prescriptions: cyanocobalamin (vitamin B-12) [place]ado folic acid [place]ado furosemide [place] Allergies Allergy/AdvReac Type Severity Reaction Status Date / Time canagliflozin (From Invokana) Allergy Severe kidney Verified 08/27/24 12:32 issues Discharge Plan Disposition Patient Disposition: [facility] Condition: Fair Discharge Order Discharge Orders: Discharge Order (Routine); Ordered 10/26/24 Ordered By: German Jurado Follow up Plan Follow up with: Armando Felipe MD [Staff Physician] - 11/01/24 2:30 pm Daniella Finnegan DPM [Staff Physician] - 11/02/24 Prescriptions/Medication Reconciliation: New furosemide 80 mg Tablet 80 mg PO BIDL 30 Days Qty: 60 0RF folic acid 1 mg Tablet 1 mg PO DAILY 30 Days Qty: 30 0RF cyanocobalamin (vitamin B-12) 1,000 mcg capsule 1,000 mcg PO DAILY Qty: 30 0RF Continued polyethylene glycol 3350 [Miralax] 17 gram/dose powder 17 g PO DAILY sennosides [Senna Laxative] 8.6 mg tablet 17.2 mg PO DAILY 30 Days Qty: 60 3RF (DME) blood-glucose meter Kit See Rx Instructions .ROUTE .MEDSUPPLY Qty: 1 0RF Rx Instructions: As directed or once daily along with the strips and lancets that pts insurance will pay for citalopram 20 mg tablet 20 mg PO DAILY Qty: 90 3RF lisinopril 40 mg tablet 40 mg PO HS Qty: 30 3RF pantoprazole 40 mg tablet,delayed release (DR/EC) 40 mg PO HS Qty: 90 3RF carvedilol 25 mg tablet 12.5 mg PO BID Qty: 60 3RF allopurinol 100 mg tablet 100 mg PO DAILY Qty: 30 3RF clopidogrel 75 mg tablet 75 mg PO DAILY Qty: 30 3RF lubiprostone 8 mcg capsule 8 mcg PO BID Patient Comments: 1 CAPSULE WITH FOOD AND WATER ORALLY TWICE A DAY 30 DAYS aspirin [Darshana Low Dose Aspirin] 81 mg tablet,delayed release (DR/EC) 81 mg PO DAILY ferrous sulfate [Feosol] 325 mg (65 mg iron) tablet 325 mg PO DAILY levothyroxine 200 mcg tablet 200 mcg PO DAILY ondansetron 4 mg tablet,disintegrating 4 mg PO Q8HP PRN (Reason: nausea and vomiting) hydrocodone-acetaminophen 10-325 mg tablet 1 tab PO Q6H 30 Days Qty: 0 0RF Patient Comments: TAKE 1 TABLET BY MOUTH EVERY 6 HOURS bupropion HCl 150 mg tablet sustained-release 12 hr 150 mg PO BID atorvastatin 80 mg tablet 40 mg PO HS amitriptyline 50 mg tablet 50 mg PO HS pramipexole 0.5 mg tablet 0.5 mg PO DAILY spironolactone 25 mg tablet 25 mg PO DAILY Patient Comments: TAKE 1 TABLET BY MOUTH EVERY DAY Changed gabapentin 800 mg tablet 400 mg PO Q6H 30 Days Qty: 0 0RF Patient Comments: TAKE 1 TABLET BY MOUTH EVERY 6 HOURS Discontinued magnesium oxide 400 mg (241.3 mg magnesium) tablet 400 mg PO DAILY Qty: 90 3RF insulin lispro 100 unit/mL insulin pen 20 unit SQ BID insulin glargine [Lantus Solostar U-100 Insulin] 100 unit/mL (3 mL) insulin pen 100 unit SQ BID Qty: 15 0RF furosemide 40 mg tablet 40 mg PO DAILY Qty: 90 3RF Ozempic 1 mg/dose (4 mg/3 mL) pen injector 1 mg SQ WEEKLY Problem Reconciliation Problems Reviewed?: Yes Patient Discharge Instructions Patient Instructions: How to Take Care of Your Feet If You Have Diabetes, DI for Cellulitis -- Adult, Heart-Healthy Diet, DI for Heart Failure, DI for Diabetic Foot Ulcer, Surgical Site Infection, Moderate Sedation, DI for Post- Surgical Bleeding, NCM LDL Cholesterol-Lowering Diet, Stop Light COPD, Stop Light Heart Failure Print Language: Honduran Providers Primary Care Provider: Ramos Morales Admit Provider: Neo Pierre Attending Provider: Neo Pierre
[2024-10-26] MEDS: FUROSEMIDE 80 MG TABLET PO (09:49)
[2024-10-26] MEDS: SPIRONOLACTONE 25MG TABLET 25 MG PO (09:49)
[2024-10-26] MEDS: CITALOPRAM 20MG TABLET 20 MG PO (09:49)
[2024-10-26] MEDS: FOLIC ACID 1MG TABLET 1 MG PO (09:49)
[2024-10-26] MEDS: ASPIRIN EC 81MG TABLET 81 MG PO (09:49)
[2024-10-26] MEDS: PRAMIPEXOLE 1MG TAB 0.5 MG PO (09:50)
[2024-10-26] MEDS: ALLOPURINOL 100MG TABLET 100 MG PO (09:50)
[2024-10-26] MEDS: buPROPion HCl SR 150MG TAB 150 MG PO (09:50)
[2024-10-26] MEDS: CLOPIDOGREL 75MG TAB 75 MG PO (09:50)
[2024-10-26] MEDS: CARVEDILOL 12.5MG TABLET 12.5 MG PO (09:50)
[2024-10-26] MEDS: SODIUM CHLORIDE 0.9% 10ML VIAL 10 ML IV (09:51)
[2024-10-26] MEDS: PANTOPRAZOLE 40MG VIAL 40 MG IV (09:51)
[2024-10-26 11:00] LABS: Vancomycin,Trough 22.1 ug/mL (5.0-10.0)
[2024-10-26] MEDS: GABAPENTIN 800MG TABLET 800 MG PO (11:09)
[2024-10-26] MEDS: HYDROCODONE 10MG/APAP 325MG TAB 1 TAB PO (11:13)
[2024-10-26 11:22] LABS: POC Glucose,Bedside 173 (70-110)
[2024-10-26 12:00] VITALS: BP 107/70; PULSE 77; PULSE 78; RESP 16; TEMP 36.5; O2SAT 98
[2024-10-26 13:13] LABS: Cortisol,AM 13.5 ug/dL (6.2-19.4)
--- NOTE | 2024-10-26 15:46 | PC.NURSE ---
REPORT HAS BEEN CALLED TO [facility]. AMBULANCE HAS BEEN CALLED FOR TRANSPORT. DRESSINGS TO BILATERAL FEET WERE CHANGED THIS SHIFT. 2 ASSIST WITH WALKER TO TRANSFER.
[2024-10-30 15:31] LABS: POC Glucose,Bedside 42 (70-110)
[2024-10-30 15:31] LABS: POC Glucose,Bedside 160 (70-110)
[2024-10-30 15:33] LABS: POC Glucose,Bedside 43 (70-110)
[2024-10-30 15:44] LABS: POC Glucose,Bedside 25 (70-110)
== END 2024-10-26 16:48 | DRG 239 ==
LOC: ER 21:48 → 2ND 10-20 06:34
PROVIDERS: Internal Medicine; Nurse Practitioner; Nurse Practitioner Acute Care; Nurse Practitioner Family; Podiatrist; Student in an Organized Health Care Education/Training Program; Admitting Provider Internal Medicine Adolescent Medicine; Emergency Provider Student in an Organized Health Care Education/Training Program; PCP Nurse Practitioner Family; Visit Provider Internal Medicine Adolescent Medicine
PROC: 047C3DZ Dilation of Right Common Iliac Artery with Intraluminal Device, Percutaneous Approach (ICD-10-PCS; CPT 75625; principal; 2024-10-22 14:15)
PROC: 0Y6M0ZF Detachment at Right Foot, Partial 5th Ray, Open Approach (ICD-10-PCS; principal; 2024-10-23 07:30)
DX: E11.51 Type 2 diabetes mellitus with diabetic peripheral angiopathy without gangrene (principal); I50.23 Acute on chronic systolic (congestive) heart failure; L03.115 Cellulitis of right lower limb; L97.525 Non-pressure chronic ulcer of other part of left foot with muscle involvement without evidence of necrosis; S92.355K Nondisplaced fracture of fifth metatarsal bone, left foot, subsequent encounter for fracture with nonunion; E11.621 Type 2 diabetes mellitus with foot ulcer; E11.610 Type 2 diabetes mellitus with diabetic neuropathic arthropathy; M19.071 Primary osteoarthritis, right ankle and foot; Z79.4 Long term (current) use of insulin; E78.5 Hyperlipidemia, unspecified; I73.9 Peripheral vascular disease, unspecified; I25.118 Atherosclerotic heart disease of native coronary artery with other forms of angina pectoris; G62.9 Polyneuropathy, unspecified; Z96.9 Presence of functional implant, unspecified; L97.514 Non-pressure chronic ulcer of other part of right foot with necrosis of bone; R09.89 Other specified symptoms and signs involving the circulatory and respiratory systems; I11.0 Hypertensive heart disease with heart failure; D50.9 Iron deficiency anemia, unspecified; Z79.85 Long-term (current) use of injectable non-insulin antidiabetic drugs; Z79.899 Other long term (current) drug therapy; Z88.8 Allergy status to other drugs, medicaments and biological substances; Z87.891 Personal history of nicotine dependence
CPT/HCPCS: 36410; 36415; 36430; 36569; 71045; 71275; 73562; 73620; 73630; 73700; 80048; 80053; 80061; 80202; 82272; 82533; 82607; 82728; 82746; 82803; 82962; 83010; 83036; 83525; 83540; 83550; 83605; 83615; 83735; 83880; 84100; 84145; 84439; 84443; 84484; 84550; 84681; 85007; 85014; 85018; 85025; 85048; 85049; 85347; 85651; 86140; 86803; 86850; 87040; 87070; 87077; 87186; 87205; 87389; 88304; 93005; 93306; 93923; 93970; 94640; 96374; 97110; 97162; 97166; 97530; 99152; 99153; 99291; C1725; C1751; C1769; C1876; C1894; C9144; C9765; G0328; J0736; J1200; J1580; J1644; J1756; J1938; J2250; J2310; J3010; J3370; J3372; J3420; J7042; J7620; P9016; Q9967

== ENCOUNTER 2024-11-02 14:49 | Observation (INO) | payer MEDICARE, MEDICAID, SELFPAY ==
[2024-11-02] VITALS (13 sets, daily range): BP systolic 122–181; BP diastolic 67–103; PULSE 84–94; RESP 14–26; TEMP 36.6–37.2; O2SAT 94–98; BMI 30.4
--- NOTE | 2024-11-02 15:13 | CT_ITS ---
FINAL REPORT TECHNIQUE: Thin section axial images were obtained through the cervical spine without contrast. Multiplanar reconstruction images were obtained from the axial data. Exam was performed using dose reduction techniques. CLINICAL HISTORY: AMS, slurred speech, frequent falls, urinary ret COMPARISON: 08/02/2024 FINDINGS: There is no acute fracture or acute malalignment of the cervical spine. There is no evidence of unilateral or bilateral facet lock. The craniocervical junction is intact. Vertebral body height is preserved. Again seen are erosive changes of the left C5-6 facet. There is mild prominence of the bilateral submandibular lymph nodes which are favored to be reactive. These were not included on the previous exam. IMPRESSION: No acute osseous abnormality. Degenerative disc disease. Reviewed, Interpreted and Dictated by Myra Meredith MD Transcribed by Anne Osborn Authenticated and [facility]
--- NOTE | 2024-11-02 15:13 | CT_ITS ---
PROCEDURE INFORMATION: Exam: CT Lumbar Spine Without Contrast Exam date and time: 11/02/2024 4:19 PM Age: 64 years old Clinical indication: Injury or trauma; Fall; Blunt trauma (contusions or hematomas); Additional info: AMS, slurred speech, frequent falls, urinary ret TECHNIQUE: Imaging protocol: Computed tomography of the lumbar spine without contrast. Radiation optimization: All CT scans at this facility use at least one of these dose optimization techniques: automated exposure control; mA and/or kV adjustment per patient size (includes targeted exams where dose is matched to clinical indication); or iterative reconstruction. COMPARISON: CT THORACIC SPINE WO CON 11/02/2024 4:12 PM FINDINGS: Bones/joints: Lumbar curvature alignment is unremarkable. No evidence of acute fracture, spondylolysis or spondylolisthesis. There is mild contour deformity with sclerotic bone changes at the sacrococcygeal junction stable from previous exam likely secondary to old fracture. Moderate degenerative changes L3-L4 with some disc space narrowing and endplate sclerosis. No severe stenosis of the spinal canal. Remaining lumbar disc levels are further well-maintained. Soft tissues: Unremarkable. IMPRESSION: No acute bony abnormalities.
--- NOTE | 2024-11-02 15:13 | CT_ITS ---
PROCEDURE INFORMATION: Exam: CTA Neck With Contrast Exam date and time: 11/02/2024 4:24 PM Age: 64 years old Clinical indication: Speech disturbance; Slurred speech; Additional info: AMS, slurred speech, frequent falls, urinary ret TECHNIQUE: Imaging protocol: Computed tomographic angiography of the neck with contrast. Exam focused on the cervical segments of the vasculature. 3D rendering (Not supervised by radiologist): MIP and/or 3D reconstructed images were created by the technologist. Radiation optimization: All CT scans at this facility use at least one of these dose optimization techniques: automated exposure control; mA and/or kV adjustment per patient size (includes targeted exams where dose is matched to clinical indication); or iterative reconstruction. Contrast material: ISOVUE 370; Contrast volume: 160 ml; Contrast route: INTRAVENOUS (IV); COMPARISON: CT CERVICAL SPINE WO CON 11/02/2024 4:09 PM FINDINGS: Limitations: Patient motion. Right common carotid artery: Calcification at the right common carotid bifurcation. No significant stenosis. Right internal carotid artery: No stenosis of the extracranial segment. No dissection or occlusion. Right external carotid artery: No occlusion or stenosis of the origin. Left common carotid artery: Calcification and atheromatous plaquing involving the left common carotid artery. Stenosis measures less than 50%. Left internal carotid artery: Calcification of the proximal left ICA. No significant stenosis. Left external carotid artery: No occlusion or stenosis of the origin. Right vertebral artery: No stenosis. No dissection or occlusion. Left vertebral artery: No stenosis. No dissection or occlusion. Aorta: Aortic calcification. Soft tissues: Normal. No significant soft tissue swelling. Bones/joints: Degenerative change involving the spine. Lungs: Mild airspace disease at the right lung apex. IMPRESSION: No hemodynamically significant stenosis. REFERENCES: NASCET CRITERIA. The degree of stenosis in the cervical segment of the internal carotid artery is based on NASCET criteria. Normal is no stenosis. Mild is less than 50% stenosis. Moderate is 50-69% stenosis. Severe is 70% to 99% stenosis. Total occlusion is no detectable patent lumen.
--- NOTE | 2024-11-02 15:13 | XR_ITS ---
FINAL REPORT CLINICAL HISTORY: post op eval toe amp COMPARISON: 10/23/2024 FINDINGS: AP, oblique and lateral views of the right foot were obtained. Extensive postoperative changes of the right foot appear stable. Postoperative changes from resection of the base of the fifth metatarsal are again noted. There is no new bone destruction or acute osseous abnormality. Again seen is a fracture deformity of the fifth metatarsal head. Soft tissue edema appears improved. Surgical skin salty along the lateral midfoot are unchanged. The metallic foreign body between the 2nd and 3rd metatarsals is unchanged. IMPRESSION: Extensive postoperative changes which appear stable. No convincing acute abnormality. Stable foreign body in the forefoot. Reviewed, Interpreted and Dictated by Myra Meredith MD Transcribed by Chrissy Barone Authenticated and [facility]
--- NOTE | 2024-11-02 15:13 | CT_ITS ---
FINAL REPORT TECHNIQUE: The patient was injected with IV contrast. Axial images were obtained through the chest in a PE protocol. 3-D reconstruction images were also performed. Individualized dose reduction techniques using automated exposure control or adjustment of the MA and/or KV according to patient's size were employed. CLINICAL HISTORY: AMS, slurred speech, frequent falls, urinary ret COMPARISON: 10/20/2024 FINDINGS: Mediastinal vasculature is adequately opacified. No pulmonary artery filling defects are identified to suggest PE. There is no aortic dissection. There is no axillary adenopathy. There are a few small scattered mediastinal nodes present, which are smaller than seen on the prior CT of 10/20/2024. The heart size is normal. There is no pericardial or pleural effusion. Limited images of the upper abdomen demonstrate calcified granulomas in the spleen. There is a new ground glass opacity present in the right apex, best seen on images #65 through 78 of series 1001, which was not present on the prior CT. IMPRESSION: No pulmonary embolus or dissection. New ground glass opacity in the right apex as described above, not seen on the prior CT, most likely inflammatory and may represent pneumonia. Reviewed, Interpreted and Dictated by Zeb Shah MD Transcribed by Niesha Morel Authenticated and [facility]
--- NOTE | 2024-11-02 15:13 | XR_ITS ---
FINAL REPORT CLINICAL HISTORY: post op eval lateral foot I D COMPARISON: 10/23/2024 FINDINGS: AP, oblique and lateral views of the left foot were obtained. Again seen are postoperative changes from resection of the proximal fifth metatarsal. There is no acute fracture or dislocation. Hallux valgus deformity of the first MTP joint is unchanged. The soft tissue edema has improved. Surgical salty are again noted. IMPRESSION: Improved soft tissue edema, otherwise stable postoperative changes. Reviewed, Interpreted and Dictated by Myra Meredith MD Transcribed by Chrissy Barone Authenticated and [facility]
--- NOTE | 2024-11-02 15:13 | CT_ITS ---
PROCEDURE INFORMATION: Exam: CT Abdomen And Pelvis With Contrast Exam date and time: 11/02/2024 4:34 PM Age: 64 years old Clinical indication: Injury or trauma; Fall; Blunt; Generalized; Additional info: AMS, slurred speech, frequent falls, urinary ret TECHNIQUE: Imaging protocol: Computed tomography of the abdomen and pelvis with contrast. 3D rendering (Not supervised by radiologist): MIP and/or 3D reconstructed images were created by the technologist. Radiation optimization: All CT scans at this facility use at least one of these dose optimization techniques: automated exposure control; mA and/or kV adjustment per patient size (includes targeted exams where dose is matched to clinical indication); or iterative reconstruction. Contrast material: ISOVUE; Contrast volume: 75 ml; Contrast route: IV; COMPARISON: CT ABDOMEN PELVIS W CON 04/14/2024 4:16 PM FINDINGS: Limitations: Study is technically limited due to motion artifact. Lungs: Mild hypoventilatory changes at the lung bases. Liver: Normal. No mass. Gallbladder and biliary ducts: There is mild dilatation of common bile duct redemonstrated measuring up to 1.2 cm unchanged. Pancreas: Unremarkable. Main pancreatic duct is not significantly dilated. Spleen: Borderline enlarged with granulomatous calcifications unchanged. Adrenal glands: Normal. No mass. Kidneys and ureters: Small cortical cyst left kidney otherwise kidneys unremarkable. Stomach and bowel: Moderate degree of retained stool throughout the large bowel that may reflect some degree of constipation. Appendix: No evidence of appendicitis. Intraperitoneal space: Unremarkable. No free air. No significant fluid collection. Vasculature: Scattered atherosclerotic changes of the abdominal aorta and iliac vessels. No aortic aneurysm. Lymph nodes: Unremarkable. No enlarged lymph nodes. Urinary bladder: There is a Tripp catheter balloon within the urinary bladder which is collapsed and difficult to further assess. Reproductive: Uterus has been removed. Bones/joints: Mild-moderate degenerative changes mid lumbar spine and both hip joints. No acute bony abnormalities however assessment of the pelvis is limited due to marked motion artifact.. Soft tissues: Small fat containing umbilical hernia. IMPRESSION: 1. Limited study due to motion artifact. 2. No compelling evidence of abdominal or pelvic injury. 3. Additional nonemergent findings as above. COMMENTS: Consistent with the [employer]'s Incidental Findings Committee white paper (J Am Stefanie Radiol 2018): Any incidental renal lesion less than 1 cm or classified as too small to characterize, or any incidental cystic renal lesion characterized as simple-appearing, is likely benign. No follow-up imaging is recommended for these lesions per consensus recommendations based on imaging criteria.
--- NOTE | 2024-11-02 15:13 | CT_ITS ---
PROCEDURE INFORMATION: Exam: CT Thoracic Spine Without Contrast Exam date and time: 11/02/2024 4:12 PM Age: 64 years old Clinical indication: Injury or trauma; Fall; Blunt trauma (contusions or hematomas); Additional info: AMS, slurred speech, frequent falls, urinary ret TECHNIQUE: Imaging protocol: Computed tomography of the thoracic spine without contrast. Radiation optimization: All CT scans at this facility use at least one of these dose optimization techniques: automated exposure control; mA and/or kV adjustment per patient size (includes targeted exams where dose is matched to clinical indication); or iterative reconstruction. COMPARISON: CT CERVICAL SPINE WO CON 11/02/2024 4:09 PM FINDINGS: Bones/joints: There is mild kyphoscoliosis of the thoracic spine unchanged. There is mild chronic compression deformity of T11 vertebral body, stable. There are no acute fractures detected. There is no spondylolisthesis. There are multilevel anterolateral degenerative endplate osteophytes throughout the mid-lower thoracic spine stable from previous exam. No severe stenosis of the spinal canal or neural foramina. Soft tissues: Unremarkable. IMPRESSION: No acute bony abnormalities.
--- NOTE | 2024-11-02 15:13 | CT_ITS ---
PROCEDURE INFORMATION: Exam: CTA Head With Contrast, Arteriography Exam date and time: 11/02/2024 4:24 PM Age: 64 years old Clinical indication: Speech disturbance; Slurred speech; Additional info: AMS, slurred speech, frequent falls, urinary ret TECHNIQUE: Imaging protocol: Computed tomographic angiography of the head with contrast. Exam focused on the arteries. 3D rendering (Not supervised by radiologist): MIP and/or 3D reconstructed images were created by the technologist. Radiation optimization: All CT scans at this facility use at least one of these dose optimization techniques: automated exposure control; mA and/or kV adjustment per patient size (includes targeted exams where dose is matched to clinical indication); or iterative reconstruction. Contrast material: ISOVUE 370; Contrast volume: 160 ml; Contrast route: INTRAVENOUS (IV); COMPARISON: CT HEAD/BRAIN WO CON 11/02/2024 4:02 PM FINDINGS: ANTERIOR CIRCULATION: Right internal carotid artery: Calcification involving the right carotid siphon without hemodynamically significant stenosis. Right middle cerebral artery: No occlusion or significant stenosis. No aneurysm. Right anterior cerebral artery: No occlusion or significant stenosis. No aneurysm. Left internal carotid artery: Calcification involving the left carotid siphon without hemodynamically significant stenosis. Left middle cerebral artery: No occlusion or significant stenosis. No aneurysm. Left anterior cerebral artery: No occlusion or significant stenosis. No aneurysm. POSTERIOR CIRCULATION: Right vertebral artery: No occlusion or significant stenosis. No aneurysm. Left vertebral artery: No occlusion or significant stenosis. No aneurysm. Basilar artery: No occlusion or significant stenosis. No aneurysm. Right posterior cerebral artery: No occlusion or significant stenosis. No aneurysm. Left posterior cerebral artery: No occlusion or significant stenosis. No aneurysm. IMPRESSION: No hemodynamically significant stenosis or large vessel occlusion.
--- NOTE | 2024-11-02 15:13 | CT_ITS ---
FINAL REPORT TECHNIQUE: Thin section axial images were obtained from skull base to vertex without contrast. Coronal reconstruction images were obtained from the axial data. Exam was performed using dose reduction techniques such as automated exposure control, adjustment of the mA and kV according to patient size, and use of iterative reconstruction technique. CLINICAL HISTORY: AMS, slurred speech, frequent falls, urinary ret COMPARISON: 08/02/2024 FINDINGS: There is no mass effect or midline shift. A hypodensity within the left internal capsule is chronic. Otherwise, there is no area of decreased attenuation. There is no hydrocephalus. There is no intracranial hemorrhage. The posterior fossa is without acute abnormality. The basilar cisterns are preserved. The soft tissues are without acute abnormality. No acute osseous abnormality is identified. IMPRESSION: No acute intracranial abnormality. Reviewed, Interpreted and Dictated by Myra Meredith MD Transcribed by Anne Osborn Authenticated and [facility]
--- NOTE | 2024-11-02 15:24 | ED_ITS ---
Discharge Plan Disposition Patient Disposition: Admitted Condition: Fair Clinical Impressions Clinical Impression: Acute alteration in mental status Discharge ED Provider: Jaylin Zazueta General Adult HPI General Chief complaint: Altered Mental Status Stated complaint: Altered Mental Status Time Seen by Provider: 11/02/24 15:04 History of Present Illness HPI narrative: This patient is a 64-year-old female with a history of type 2 diabetes, hypertension, hyperlipidemia, CAD, peripheral vascular disease, tobacco dependence, Charcot foot, prior history of osteomyelitis presented to the emergency department for evaluation from nursing facility with concern for altered mental status. Patient has history of recent amputation of the right 1st and 2nd toes as well as partial amputation of the fifth MT of the left foot and recent dissection and bone biopsy of the left foot (10/23/2024). She also had stenting to her right common iliac artery and lithotripsy with balloon angioplasty to the distal right SFA and right popliteal arteries during this admission to the hospital. She also had aggressive diuresis for acute heart failure. She was discharged to [facility] for rehabilitation, and her [id number] reports that she was a little bit confused and acting abnormally yesterday. [id number] notes that the patient does have a history of urinary retention and advised a nursing facility of this, and they placed a Tripp catheter, at which point patient had 2 L of urine out. The nursing facility had told the jzzzousf-fl-vlu that the patient was doing better since then, however pyjcwsmo-ix-kpd arrived at the nursing facility today to find the patient lying across the bed with her food tray locked everywhere, very confused with garbled speech, fidgety, and picking at her skin. She is very altered. Patient does not contribute to history given altered mental status. Watfxqov-ej-yoe notes concerns for a fall that happened yesterday, at which point she hit her head on the bathtub, and multiple falls since then. She was evaluated at [facility] yesterday reportedly with a negative CT per [id number]. I reviewed records and noted that she was just seen by podiatry yesterday for postop follow-up and wound evaluation, and everything was felt to be doing well at that time. She is managed on IV antibiotics through PICC line. She is currently on IV daptomycin and Rocephin. Related Data Home Medications ?Medication ?Instructions ?Recorded ?Confirmed amitriptyline 50 mg tablet 50 mg PO HS 04/14/24 11/02/24 atorvastatin 80 mg tablet 40 mg PO HS 04/14/24 11/02/24 bupropion HCl 150 mg tablet,12 hr 150 mg PO BID 04/14/24 11/02/24 sustained-release pramipexole 0.5 mg tablet 0.5 mg PO DAILY 04/14/24 11/02/24 spironolactone 25 mg tablet 25 mg PO DAILY 04/15/24 11/02/24 polyethylene glycol 3350 17 17 g PO DAILY 05/21/24 11/02/24 gram/dose oral powder (Miralax) aspirin 81 mg tablet,delayed 81 mg PO DAILY 10/20/24 11/02/24 release (Darshana Low Dose Aspirin) ferrous sulfate 325 mg (65 mg 325 mg PO DAILY 10/20/24 11/02/24 iron) tablet (Feosol) levothyroxine 200 mcg tablet 200 mcg PO DAILY 10/20/24 11/02/24 lubiprostone 8 mcg capsule 8 mcg PO BID 10/20/24 11/02/24 ondansetron 4 mg disintegrating 4 mg PO Q8HP PRN nausea and 10/20/24 11/02/24 tablet vomiting furosemide 80 mg tablet 80 mg PO BID 11/02/24 11/02/24 Previous Rx's ?Medication ?Instructions ?Recorded blood-glucose meter #1 ea 04/17/24 sennosides 8.6 mg tablet (Senna 17.2 mg (2 x 8.6 mg) PO DAILY 30 04/24/24 Laxative) days #60 tabs citalopram 20 mg tablet 20 mg PO DAILY #90 tabs 08/30/24 allopurinol 100 mg tablet 100 mg PO DAILY #30 tabs 10/09/24 carvedilol 25 mg tablet 12.5 mg (1/2 x 25 mg) PO BID #60 10/09/24 tabs clopidogrel 75 mg tablet 75 mg PO DAILY #30 tabs 10/09/24 lisinopril 40 mg tablet 40 mg PO HS #30 tabs 10/09/24 pantoprazole 40 mg tablet,delayed 40 mg PO HS #90 tabs 10/09/24 release cyanocobalamin (vitamin B-12) 1,000 mcg PO DAILY #30 caps 10/26/24 1,000 mcg capsule folic acid 1 mg tablet 1 mg PO DAILY 30 days #30 tabs 10/26/24 gabapentin 800 mg tablet 400 mg (1/2 x 800 mg) PO Q6H 30 10/26/24 days #0 tabs hydrocodone 10 mg-acetaminophen 1 tab PO Q6H pain 30 days #0 tabs 10/26/24 325 mg tablet Allergies Allergy/AdvReac Type Severity Reaction Status Date / Time canagliflozin (From Invokana) Allergy Severe kidney Verified 11/01/24 11:36 issues [facility] Disclaimer: The information contained in this section may have been updated after the patient was seen, as this information can be updated by other users. Medical History Osteomyelitis Tobacco dependence syndrome Hypertension Peripheral arterial disease CAD (coronary atherosclerotic disease) T2DM (type 2 diabetes mellitus) Decreased pedal pulses Ulcer of second toe of right foot Pulmonary edema Abnormal ankle brachial index (ELLIE) Acute on chronic systolic heart failure Closed left ankle fracture Elevated left ventricular end-diastolic pressure (LVEDP) Edema of both lower extremities Syncope Abnormal result of cardiovascular function study Typical angina Arthritis GERD (gastroesophageal reflux disease) Depression COPD (chronic obstructive pulmonary disease) Arrhythmia Hyperlipidemia Surgical History History of cancer surgery H/O total hysterectomy Hx of colonoscopy Family History Other Cancer Coronary artery disease Diabetes Heart attack Hypertension Stroke Social History (Updated 11/02/24 @ 21:13 by Rosio Jensen RN) Smoking Status: Current every day smoker tobacco type: cigarettes alcohol intake: never substance use type: denies use current occupational status: unemployed and disabled Travel in the last 8 weeks?: None household members: spouse housing: house Have you lived/traveled outside [place] in past 30 days?: No Contact w/someone who lives/traveled outside US past 30 days?: No Exposure to someone with infectious disease in past 14 days?: No Do you have a fever (greater than 100.4 F or 38 C)?: No Have you tested positive for COVID-19?: No Exposed to someone with COVID-19 in past 14 days?: No Do you have a sore throat?: No Do you have a cough?: No Do you have any weakness?: No Are you experiencing any nausea/vomitting?: No Do you have any diarrhea?: No Are you experiencing any unusual bleeding?: No Do you have any muscle aches/pain?: No Do you have any abdominal pain?: No Are you experiencing loss of taste or smell?: No Other Medical History Have you received the Flu Vaccine for this season: No Have you received the Pneumonia Vaccine: No ROS Obtained: Yes All systems reviewed & no additional complaints except as documented Physical Exam General General appearance: alert Comment: Fidgety, twitchy. Moving all 4 extremities spontaneously without any focal neurologic deficit. Garbled speech that is nonsensical Head Head exam: atraumatic and normocephalic Eye Eye exam: Present normal appearance, PERRL and EOMI ENT ENT exam: Present normal exam, normal oropharynx, mucous membranes moist and normal external ear exam Neck Neck exam: Present normal inspection, full ROM and trachea midline; Absent tenderness Chest Chest inspection: Present normal inspection and symmetric chest wall rise; Absent tenderness Respiratory Respiratory exam: Present normal lung sounds bilaterally; Absent respiratory distress, wheezes, stridor or accessory muscle use Cardiovascular Cardiovascular exam: Present regular rate and normal rhythm Abdominal Exam Abdominal exam: Present soft; Absent distention, tenderness or guarding Extremities Exam Extremities exam: Present full ROM, normal capillary refill, edema and other (Symmetric lower extremity edema. Her incisions on her right foot appear to be clean, dry, intact with no abnormal drainage. No significant redness or streaking up the foot. Her wound on the lateral aspect of her left foot has some maceration but no obvious purulence, redness, streaking. NVI) Back Exam Back exam: Present normal inspection and full ROM; Absent tenderness Neurological Exam Neurological exam: Present alert and other (Fidgety, twitchy, moving all 4 extremities equally without focal neurologic deficit. Unable to answer orientation questions); Absent oriented X3 or motor sensory deficit Skin Skin exam: Present warm and dry Medical Decision Making Medical Records Medical records reviewed: Yes I reviewed the patient's medical records. Screening: Per USPSTF and CDC recommendations, given the prevalence of disease in our region, it is our hospital?s policy to screen for HIV and viral Hepatitis for all patients aged 18 and over and those with ongoing risk factors. Salty Inquiry Pt receiving controlled substance: No Vital Signs: 11/02/24 15:00 11/02/24 15:16 11/02/24 15:31 Temperature 98.6 F Temperature Source Oral Pulse Rate 89 90 Pulse Rate [Left] 90 Respiratory Rate 16 17 20 Blood Pressure 149/67 H 157/83 H Blood Pressure [Right Arm] 149/67 H Blood Pressure Mean Blood Pressure Mean [Right Arm] 94 Blood Pressure Source Blood Pressure Source [Right Arm] Automatic Cuff Blood Pressure Position Blood Pressure Position [Right Arm] Sitting 02 Sat by Pulse Oximetry 98 95 95 Oxygen Delivery Method Room Air Room Air Room Air 11/02/24 17:32 11/02/24 18:01 11/02/24 18:31 Temperature Temperature Source Pulse Rate 94 H 89 89 Pulse Rate [Left] Respiratory Rate 20 14 Blood Pressure 181/89 H 149/76 H 157/85 H Blood Pressure [Right Arm] Blood Pressure Mean 109 Blood Pressure Mean [Right Arm] Blood Pressure Source Blood Pressure Source [Right Arm] Blood Pressure Position Blood Pressure Position [Right Arm] 02 Sat by Pulse Oximetry 94 L 94 L 97 Oxygen Delivery Method Room Air Room Air Room Air 11/02/24 19:01 11/02/24 19:27 11/02/24 19:30 Temperature 98.7 F Temperature Source Oral Pulse Rate 89 84 86 Pulse Rate [Left] Respiratory Rate 17 20 19 Blood Pressure 149/82 H 149/87 H 140/99 H Blood Pressure [Right Arm] Blood Pressure Mean Blood Pressure Mean [Right Arm] Blood Pressure Source Automatic Cuff Blood Pressure Source [Right Arm] Blood Pressure Position Sitting Blood Pressure Position [Right Arm] 02 Sat by Pulse Oximetry 95 96 Oxygen Delivery Method Room Air 11/02/24 20:32 11/02/24 20:35 Temperature 98.9 F 97.9 F Temperature Source Oral Pulse Rate 87 91 H Pulse Rate [Left] Respiratory Rate 20 26 H Blood Pressure 122/93 H 122/103 H Blood Pressure [Right Arm] Blood Pressure Mean Blood Pressure Mean [Right Arm] Blood Pressure Source Automatic Cuff Blood Pressure Source [Right Arm] Blood Pressure Position Blood Pressure Position [Right Arm] 02 Sat by Pulse Oximetry 95 Oxygen Delivery Method Room Air Lab Data Lab results reviewed: Yes I reviewed the patient's lab results. Lab Results 11/02/24 14:55: WBC 8.3, RBC 3.16 L, Hgb 9.0 L, Hct 28.1 L, MCV 88.9, MCH 28.5, MCHC 32.0, RDW 17.3, Plt Count 258, MPV 8.8, Neut % (Auto) 70.5, Lymph % (Auto) 16.7, [place] % (Auto) 9.0, Eos % (Auto) 3.1, Baso % (Auto) 0.5, Neut # (Auto) 5.9, Lymph # (Auto) 1.4, [place] # (Auto) 0.8, Eos # (Auto) 0.3, Baso # (Auto) 0.0, ESR 118 H, PT 13.2 H, INR 1.21 H, APTT 26.5, Sodium 132 L, Potassium 4.0, Chloride 93 L, Carbon Dioxide 30, Anion Gap 13.0, BUN 45 H, Creatinine 1.50 H, Estimated GFR 35 L, Est GFR ( Amer) 43 L, Glucose 166 H, Calcium 9.7, Phosphorus 5.0 H, Magnesium 2.1, Total Bilirubin 0.5, AST 32, ALT 16, Alkaline Phosphatase 136 H, Total Creatine Kinase 107, Troponin I < 0.01, C-Reactive Protein 51.2 H, NT-Pro-B Natriuret Pep 80701 H, Total Protein 7.1, Albumin 3.7, Globulin 3.4 H, Albumin/Globulin Ratio 1.1, TSH 0.31 L, Thyroxine (T4) 6.1 11/02/24 15:30: Lactate 0.9 11/02/24 15:35: VBG pH 7.42 H, VBG pCO2 45.6, VBG pO2 60.9 H, VBG HCO3 29.0, VBG Total CO2 30.4 H, VBG O2 Saturation 89.3 H, VBG Base Excess 4.5 H, VBG Lactic Acid 1.5 11/02/24 15:38: SARS-CoV-2 (PCR) Not detected, Influenza A Untype (PCR) Not detected, Influenza Type B (PCR) Not detected 11/02/24 17:10: Ammonia < 9 L 11/02/24 17:15: Urine Color Yellow, Urine Appearance Clear, Urine pH 7.0, Ur Specific [place] 1.010, Urine Protein Negative, Urine Glucose (UA) Negative, Urine Ketones Negative, Urine Blood 2+ A, Urine Nitrate Negative, Urine Bilirubin Negative, Urine Urobilinogen 0.2, Ur Leukocyte Esterase Trace, Urine RBC 20-50, Urine WBC 10-20, Ur Squamous Epith Cells Occasional, Ur Transition Epith Cell Occ, Urine Bacteria None, Urine Opiates Screen Positive H, Urine Methadone Screen Negative, Ur Barbituates Screen Negative, Ur Phencyclidine Scrn Negative, Ur Amphetamines Screen Negative, U Benzodiazepines Scrn Negative, Urine Cocaine Screen Negative, U Marijuana (THC) Screen Negative 11/02/24 18:10: Troponin I 0.01 11/02/24 14:55 11/02/24 14:55 Orders (Tests/Meds): ED MEDICATIONS Generic Name Dose Route Start Last Admin Trade Name Freq PRN Reason Stop Dose Admin Heparin Sodium (Porcine) 5,000 unit 11/02/24 21:00 11/02/24 21:25 Heparin Sodium 5,000 Unit/Ml Vial SUBCUT 12/02/24 20:59 5,000 unit TID MITUL Administration Sodium Chloride 1,000 mls @ 50 mls/hr 11/02/24 21:00 11/02/24 21:25 Sod Chlor 0.9% 1000ml Bag IV 12/02/24 20:59 50 mls/hr .Q20H MITUL Administration Sodium Chloride 10 ml 11/02/24 16:22 11/02/24 16:24 Sodium Chloride 0.9% 10ml Syr (Rad Only) IV 12/02/24 16:21 10 ml NEEDED PRN Administration Maintain IV Site Sodium Chloride 10 ml 11/02/24 20:57 Sodium Chloride 0.9% 10ml Flush Syringe IV 12/02/24 20:56 NEEDED PRN Maintain IV Site Discontinued Medications Generic Name Dose Route Start Last Admin Trade Name Freq PRN Reason Stop Dose Admin Iopamidol 70 ml 11/02/24 16:22 11/02/24 16:23 Iopamidol-370 (76%);100ml Bottle IV 11/02/24 16:23 70 ml ONCE ONE Administration Iopamidol 70 ml 11/02/24 16:30 11/02/24 16:32 Iopamidol-370 (76%);100ml Bottle IV 11/02/24 16:31 70 ml ONCE ONE Administration Iopamidol 70 ml 11/02/24 16:30 11/02/24 16:33 Iopamidol-370 (76%); 50ml Vial IV 11/02/24 16:31 70 ml ONCE ONE Administration Sodium Chloride 50 ml 11/02/24 16:22 11/02/24 16:23 0.9 % Sodium Chloride 50 Ml Vial IV 11/02/24 16:23 50 ml ONCE ONE Administration ORDERS Category Date Time Status CT abdomen pelvis w con Stat Cat Scan 11/02/24 15:[address] angio chest PE protocol Stat Cat Scan 11/02/24 15:[address] angio head Stat Cat Scan 11/02/24 15:[address] angio neck Stat Cat Scan 11/02/24 15:[address] cervical spine wo con Stat Cat Scan 11/02/24 15:[address] head/brain wo con Stat Cat Scan 11/02/24 15:[address] lumbar spine wo con Stat Cat Scan 11/02/24 15:[address] thoracic spine wo con Stat Cat Scan 11/02/24 15:13 Completed Foot XR left minimum 3 views [XR foot LT min 3V] Stat Exams 11/02/24 15:13 Completed Foot XR right minimum 3 views [XR foot RT min 3V] Stat Exams 11/02/24 15:13 Completed Activated Partial Thrombo Time Stat Lab 11/02/24 14:55 Completed Ammonia Stat Lab 11/02/24 17:10 Completed BNP [NT Pro Brain Natriuretic Pep.] Stat Lab 11/02/24 14:55 Completed C-Reactive Protein Stat Lab 11/02/24 14:55 Completed Complete Blood Count Auto Diff Stat Lab 11/02/24 14:55 Completed Comprehensive Metabolic Panel Stat Lab 11/02/24 14:55 Completed Creatine Kinase Stat Lab 11/02/24 14:55 Completed Erythrocyte Sedimentation Rate Stat Lab 11/02/24 14:55 Completed Lactic Acid Stat Lab 11/02/24 15:30 Completed MAG [Magnesium] Stat Lab 11/02/24 14:55 Completed PHOS [Phosphorous] Stat Lab 11/02/24 14:55 Completed Prothrombin Time INR Stat Lab 11/02/24 14:55 Completed Rapid PCR Covid and Flu A/B Stat Lab 11/02/24 15:38 Completed T4 (Thyroxine) Stat Lab 11/02/24 14:55 Completed TSH [Thyroid Stimulating Hormone] Stat Lab 11/02/24 14:55 Completed Trop I [Troponin I] Stat Lab 11/02/24 14:55 Completed Troponin I Q3H Lab 11/02/24 18:10 Completed Troponin I Q3H Lab 11/02/24 21:37 Completed UDS [Drug Screen,Urine] Stat Lab 11/02/24 17:15 Completed Urinalysis and Microscopic Stat Lab 11/02/24 17:15 Completed Blood Culture Stat Micro 11/02/24 15:29 Received Urine Culture Stat Micro 11/02/24 17:15 Received VBG [Venous Blood Gas] Stat RT 11/02/24 15:35 Completed ECG Data Tracing #1: I reviewed this ECG and interpreted as documented below: Normal sinus rhythm with a ventricular rate of 91 bpm. PVCs noted. No acute ST changes concerning for STEMI. Right bundle branch block ECG initial impression date: 11/02/24 ECG initial impression time: 15:35 Medical Decision Narrative: In summary, this patient is a 64-year-old female presenting to the Emergency Department for evaluation of altered mental status from group home as well as frequent falls. Differential diagnoses considered include but are not limited to sepsis, UTI, pneumonia, postop wound infection, serotonin syndrome, medication adverse reaction, traumatic injuries from fall, subdural hematoma, decompensated heart failure, among many others. Ruling out the most morbid conditions drove assessment. It should be noted patient's history includes extensive cardiovascular history, type 2 diabetes as detailed in HPI which are not at goal therapy. This complicates all aspects of care by increasing patient's risk for morbidity. I reviewed patient's past medical records and noted recent admission for heart failure, foot wounds requiring operative intervention, peripheral vascular disease requiring stenting as detailed in HPI.. I also noted note from podiatry yesterday at which point dressing changes were recommended to be Xeroform over sutures, Betadine soaked gauze, dry sterile dressing. Her dressing today was Kerlix with dry gauze over the wound, no Betadine soaked gauze, no Xeroform. Upon arrival, I had an interactive discussion with Dr. Finnegan with podiatry regarding the patient's presentation, who advised that the patient had had to receive Narcan while admitted to the hospital because she was taking her own pain medication plus hospital medications. halfway and also reportedly told her office that they had found gabapentin in her purse yesterday, so she had recommended toxicology screen. On exam, the patient is altered, fidgety, twitchy. She is moving all 4 extremities equally. She does not have any rigidity or hyperreflexia, she is also afebrile. She is on serotonergic medications but I do not feel clinical picture is most likely serotonin syndrome at this time. She had acute urinary retention requiring Tripp catheter placement, has had recent surgeries, and has had multiple frequent falls, so there are many things that could be precipitating her altered mental status. Workup included evaluation to evaluate for infectious, metabolic, cardiac causes of her current presentation as well as CT scan head without contrast, CT C/T/L-spine without contrast, CTA head and neck, CTA PE protocol, and CT abdomen pelvis with IV contrast. Also ordered x- rays of the bilateral feet. I did not give the patient a sepsis bolus in the setting of possible infection and altered mental status, as she was just recently admitted for decompensated heart failure requiring aggressive diuresis. I feel this would be detrimental to her. I independently interpreted CT scan prior to the radiologist read and noted no obvious acute fracture or traumatic injury, no intracranial hemorrhage, no large area of stroke, no pneumonia, no obvious intra-abdominal infection. Please see their read for final interpretation. Labs were obtained that demonstrated reassuring CBC with no significant leukocytosis. She does have mild anemia no indication for transfusion at this time. Inflammatory markers are elevated, though ESR is not significantly changed from prior. CRP is a little bit higher than previous labs, but I do not find any obvious source of focal infection at this time. She has mild hyponatremia, mildly elevated creatinine when compared to prior but not eating criteria for [place]. She has mild hyperphosphatemia. BNP is elevated but actually improved from prior. Urinalysis demonstrates no bacteria and is not overtly concerning for infection with negative nitrates and leukocyte esterase. Urine drug screen is positive for opiates, which she does take at home. On reassessment, patient had no improvement in her clinical picture, which I feel could be related to polypharmacy versus medication changes. She has been requiring frequent reassessments and continued monitoring for trying to get out of bed, pulling at lines and tubes, pulling at her Tripp catheter. Ultimately for continued altered mental status, I feel she would benefit from admission for continued monitoring. I had an interactive discussion with the hospitalist who admitted the patient in stable condition Critical Care Critical Care Time Critical Care Time: Yes Attestation: On 11/02/24, the high probability of a clinically significant, sudden or life threatening deterioration of the following system(s) required my full and direct attention, intervention and personal management. The time I documented below is in addition to time spent performing reported procedures but includes the following listed in this critical care notation. Total Time Total Critical Care Time: 35
[2024-11-02 15:30] LABS: Basophils % 0.5 % (0.1-2.0); Eosinophils # 0.3 Kmm3 (0.0-0.4); Eosinophils % 3.1 % (0.1-12.0); Hematocrit 28.1 % (37.0-47.0); Immature Granulocytes # 0.02 10^3uL; Immature Granulocytes % 0.2 %; Lymphocytes # 1.4 K/mm3 (0.7-4.5); Lymphocytes % 16.7 % (10-50); Mean Corpuscular Hemoglobin 28.5 pg (27.0-31.2); Mean Corpuscular Volume 88.9 fl (81-99); Mean Platelet Volume 8.8 fl (7.4-10.4); Monocytes # 0.8 K/mm3 (0.1-1.0); Neutrophils # 5.9 K/mm3 (1.8-7.8); Neutrophils % 70.5 % (37.0-80.0); Nucleated Red Blood Cells # 0 10^3/uL; Nucleated Red Blood Cells % 0 %; Platelet Count 258 K/mm3 (142-424); Red Blood Count 3.16 M/mm3 (4.20-5.40); Red Cell Distribution Width 17.3 % (11.5-17.5); Red Cell Distribution Width-SD 56.2 fL; White Blood Count 8.3 K/mm3 (4.8-10.8)
--- NOTE | 2024-11-02 15:32 | ECG_ITS ---
APPROVED REPORT Exam: Resting ECG HR:91 bpm ECG Measurements Heart Rate 91 AXES WI 208 P 55 QRSd 152 QRS 41 QT 420 T 57 QTc 468 Conclusion SINUS RHYTHM WITH OCCASIONAL VENTRICULAR PREMATURE COMPLEXES RIGHT BUNDLE BRANCH BLOCK [120+ ms QRS DURATION, UPRIGHT V1, 40+ ms S IN I/aVL/V4/V5/V6] No STEMI Electronically signed by : DYANA ALEXANDER, 11/02/2024 23:38:16
[2024-11-02 15:41] LABS: Coronavirus 19, PCR Not Detected (NotDetected); Influenza A, PCR Not Detected (NotDetected); Influenza B, PCR Not Detected (NotDetected)
[2024-11-02 15:42] LABS: Activated Partial Thrombo Time 26.5 seconds (22.8-30.6); INR 1.21 (0.9-1.1); Prothrombin Time 13.2 seconds (10.1-12.5)
[2024-11-02 15:42] LABS: Lactate Venous 1.5 mmol/L (0.4-2.0); VBG Base Excess 4.5 mmol/L (-2.4-2.3); VBG Oxygen Saturation 89.3 % (50-70); VBG PCO2 45.6 mmol/L (35-51); VBG PH 7.42 mmol/L (7.31-7.41); VBG PO2 60.9 mmol/L (28-40); VBG Total CO2 30.4 mmol/L (23-27)
--- NOTE | 2024-11-02 16:10 | PC.NURSE ---
Pt transported to CT
[2024-11-02 16:12] LABS: Lactic Acid 0.9 mmol/L (0.7-2.1)
[2024-11-02 16:12] LABS: Thyroid Stimulating Hormone 0.31 uIU/mL (0.465-4.68)
[2024-11-02 16:18] LABS: Erythrocyte Sedimentation Rate 118 mm/hr (0-30)
[2024-11-02 16:23] LABS: Magnesium 2.1 mg/dl (1.6-2.3)
[2024-11-02] MEDS: IOPAMIDOL-370 (76%);100ML BOTTLE 70 ML IV ×2 (16:23→16:32)
[2024-11-02] MEDS: 0.9 % SODIUM CHLORIDE 50 ML VIAL IV (16:23)
[2024-11-02] MEDS: SODIUM CHLORIDE 0.9% 10ML SYR (RAD ONLY) 10 ML IV (16:24)
[2024-11-02] MEDS: IOPAMIDOL 70 ML IV (16:33)
[2024-11-02 16:36] LABS: NT Pro Brain Natriuretic Pep. 16000 pg/mL (0-125)
[2024-11-02 16:41] LABS: T4 (Thyroxine) 6.1 ug/dl (5.53-11.0)
[2024-11-02 16:44] LABS: Alanine Aminotransferase 16 U/L (12-78); Albumin Level 3.7 g/dl (3.5-5.0); Albumin/Globulin Ratio 1.1 (1.1-1.8); Alkaline Phosphatase 136 U/L (38-126); Aspartate Amino Transferase 32 U/L (14-36); Bilirubin,Total 0.5 mg/dl (0.2-1.3); Blood Urea Nitrogen 45 mg/dl (7-17); Calcium 9.7 mg/dl (8.4-10.2); Carbon Dioxide 30 mmol/L (22.0-30.0); Chloride 93 mmol/L (98-107); Creatine Kinase 107 U/L (30-135); Estimated Glomerular Filt Rate 35 ml/min (>60); GFR (African American) 43 ML/MIN (>60); Globulin 3.4 g/dL (1.3-3.2); Glucose 166 mg/dl (74-100); Sodium 132 mmol/L (136-145); Total Protein,Serum 7.1 g/dl (6.3-8.2)
[2024-11-02 16:50] LABS: C-Reactive Protein 51.2 mg/L (0-4)
[2024-11-02 17:15] LABS: Troponin I < 0.01 ng/ml (0.00-0.034)
--- NOTE | 2024-11-02 17:18 | PC.NURSE ---
Pt back from CT, Left foot wrapped with xeroform, betadine gauze, and gauze roll. Tripp replaced with U[facility] sent [facility], Ammonia sent to lab. Pt dentures given to family (son) at bedside.
[2024-11-02 17:25] LABS: Microscopic, Urine URINE MICROSCOPIC (MICROSCOPIC)
[2024-11-02 17:29] LABS: Appearance,Urine CLEAR (Clear); Bilirubin,Urine Negative (Negative); Blood, Urine 2+ (Negative); Color,Urine YELLOW (Yellow); Glucose,Urine (UA) Negative (Negative); Ketones,Urine Negative (Negative); Leukocyte Esterase,Urine TRACE (Negative); Nitrate,Urine Negative (Negative); Protein,Urine Negative (Negative); Urobilinogen,Urine 0.2 EU/dl (0.2)
--- NOTE | 2024-11-02 18:13 | PC.NURSE ---
notified lab about second trop sent up at this time
[2024-11-02 18:15] LABS: Ammonia < 9 umol/L (9-30)
[2024-11-02 18:17] LABS: RBC,Urine 20-50 #/hpf (0-3); Squamous Epithelial Cell,Urine Occasional #/hpf (0-5); Transitional Epi Cells,Urine OCC #/lpf (0-3)
[2024-11-02 18:19] LABS: Amphetamine/Metha Screen,Urine Negative ng/ml (<1000)
[2024-11-02 18:20] LABS: Barbiturates Screen,Urine Negative ng/ml (<200)
[2024-11-02 18:21] LABS: Benzodiazepines Screen,Urine Negative ng/ml (<200); Cannabinoid Screen,Urine Negative ng/ml (<50)
[2024-11-02 18:22] LABS: Cocaine Screen,Urine Negative ng/ml (<300); Methadone Screen,Urine Negative ng/ml (<300)
[2024-11-02 18:23] LABS: Opiate Screen,Urine Positive ng/ml (<300)
[2024-11-02 18:24] LABS: Phencyclidine Screen,Urine Negative ng/ml (<25)
[2024-11-02 18:55] LABS: Troponin I 0.01 ng/ml (0.00-0.034)
--- NOTE | 2024-11-02 19:17 | PC.NURSE ---
Bedside report given to Riccardo AARON
--- NOTE | 2024-11-02 20:30 | PC.NURSE ---
Report called to Teresa AARON at 20:29.
[2024-11-02] MEDS: 0.9 % SODIUM CHLORIDE 1000ML 1,000 ML 50 ML IV (21:25)
[2024-11-02] MEDS: HEPARIN SODIUM 5,000 UNIT/ML VIAL 5000 UNIT SUBCUT (21:25)
--- NOTE | 2024-11-02 22:08 | P.HP_ITS ---
<Statement entered by Neo Pierre MD - 11/03/24 08:22> Rounded on patient after nurse practitioner. Personally examined and interviewed patient. Agree with exam findings and care plan as documented. History of Present Illness *Admission Date: 11/02/24 *Reason for visit:: Altered mental status *History of present illness: This is a 64-year-old female with past medical history of iron deficiency anemia, T2DM with recurrent hypoglycemia, chronic systolic heart failure, hypertension, hyperlipidemia, PAD and osteoarthritis with recent amputation and cellulitis who presents emergency department from her rehab center for altered mental status. On prior hospitalization patient had multiple episodes of hypoglycemia with altered mental status. She also was found to have likely self-induced over narcotic usage from using home Lortab. She presents today with myoclonus and altered mental status. Daughter at bedside provides collateral states that she walked into visit her mother today at the rehab and she was half on and half off the bed, altered. Daughter reports that her feet have been looking okay and have not appeared infected. Had follow-up with Dr. Jones's office on the and was mildly confused but better orientation than she has today. She has been on daptomycin and Rocephin for MSSA/MRSA and Klebsiella of the bone/tissue of her foot. Emergency department workup reassuring. Mildly elevated creatinine above baseline. Today is 1.5. ESR of 118. White blood cell count normal at 8. UDS positive for opiates. COVID and flu negative. Given her profound myoclonus and encephalopathy, she will be admitted to the hospitalist service. [facility] Disclaimer: The information contained in this section may have been updated after the paula jacksonmarty was seen, as this information can be updated by other users. Medical History Osteomyelitis Tobacco dependence syndrome Hypertension Peripheral arterial disease CAD (coronary atherosclerotic disease) T2DM (type 2 diabetes mellitus) Decreased pedal pulses Ulcer of second toe of right foot Pulmonary edema Abnormal ankle brachial index (ELLIE) Acute on chronic systolic heart failure Closed left ankle fracture Elevated left ventricular end-diastolic pressure (LVEDP) Edema of both lower extremities Syncope Abnormal result of cardiovascular function study Typical angina Arthritis GERD (gastroesophageal reflux disease) Depression COPD (chronic obstructive pulmonary disease) Arrhythmia Hyperlipidemia Surgical History History of cancer surgery H/O total hysterectomy Hx of colonoscopy Family History Other Cancer Coronary artery disease Diabetes Heart attack Hypertension Stroke Social History (Updated 11/02/24 @ 21:13 by Rosio Jensen RN) Smoking Status: Current every day smoker tobacco type: cigarettes alcohol intake: never substance use type: denies use current occupational status: unemployed and disabled Travel in the last 8 weeks?: None household members: spouse housing: house Have you lived/traveled outside US in past 30 days?: No Contact w/someone who lives/traveled outside US past 30 days?: No Exposure to someone with infectious disease in past 14 days?: No Do you have a fever (greater than 100.4 F or 38 C)?: No Have you tested positive for COVID-19?: No Exposed to someone with COVID-19 in past 14 days?: No Do you have a sore throat?: No Do you have a cough?: No Do you have any weakness?: No Are you experiencing any nausea/vomitting?: No Do you have any diarrhea?: No Are you experiencing any unusual bleeding?: No Do you have any muscle aches/pain?: No Do you have any abdominal pain?: No Are you experiencing loss of taste or smell?: No Other Medical History Have you received the Flu Vaccine for this season: No Have you received the Pneumonia Vaccine: No Review of Systems Review of Systems Review of systems:: unable to obtain and pertinent systems reviewed and negative unless documented below Meds Home Medications and Allergies Home Medications ?Medication ?Instructions ?Recorded ?Confirmed ?Type amitriptyline 50 mg tablet 50 mg PO HS 04/14/24 11/02/24 History atorvastatin 80 mg tablet 40 mg PO HS 04/14/24 11/02/24 History bupropion HCl 150 mg tablet,12 hr 150 mg PO BID 04/14/24 11/02/24 History sustained-release pramipexole 0.5 mg tablet 0.5 mg PO DAILY 04/14/24 11/02/24 History spironolactone 25 mg tablet 25 mg PO DAILY 04/15/24 11/02/24 History blood-glucose meter #1 ea 04/17/24 11/02/24 Rx sennosides 8.6 mg tablet (Senna 17.2 mg (2 x 8.6 mg) PO DAILY 30 04/24/24 11/02/24 Rx Laxative) days #60 tabs polyethylene glycol 3350 17 17 g PO DAILY 05/21/24 11/02/24 History gram/dose oral powder (Miralax) citalopram 20 mg tablet 20 mg PO DAILY #90 tabs 08/30/24 11/02/24 Rx allopurinol 100 mg tablet 100 mg PO DAILY #30 tabs 10/09/24 11/02/24 Rx carvedilol 25 mg tablet 12.5 mg (1/2 x 25 mg) PO BID #60 10/09/24 11/02/24 Rx tabs clopidogrel 75 mg tablet 75 mg PO DAILY #30 tabs 10/09/24 11/02/24 Rx lisinopril 40 mg tablet 40 mg PO HS #30 tabs 10/09/24 11/02/24 Rx pantoprazole 40 mg tablet,delayed 40 mg PO HS #90 tabs 10/09/24 11/02/24 Rx release aspirin 81 mg tablet,delayed 81 mg PO DAILY 10/20/24 11/02/24 History release (Darshana Low Dose Aspirin) ferrous sulfate 325 mg (65 mg 325 mg PO DAILY 10/20/24 11/02/24 History iron) tablet (Feosol) levothyroxine 200 mcg tablet 200 mcg PO DAILY 10/20/24 11/02/24 History lubiprostone 8 mcg capsule 8 mcg PO BID 10/20/24 11/02/24 History ondansetron 4 mg disintegrating 4 mg PO Q8HP PRN nausea and 10/20/24 11/02/24 History tablet vomiting cyanocobalamin (vitamin B-12) 1,000 mcg PO DAILY #30 caps 10/26/24 11/02/24 Rx 1,000 mcg capsule folic acid 1 mg tablet 1 mg PO DAILY 30 days #30 tabs 10/26/24 11/02/24 Rx gabapentin 800 mg tablet 400 mg (1/2 x 800 mg) PO Q6H 30 10/26/24 11/02/24 Rx days #0 tabs hydrocodone 10 mg-acetaminophen 1 tab PO Q6H pain 30 days #0 tabs 10/26/24 11/02/24 Rx 325 mg tablet furosemide 80 mg tablet 80 mg PO BID 11/02/24 11/02/24 History New Prescriptions to Start Prescriptions: Allergies Allergy/AdvReac Type Severity Reaction Status Date / Time canagliflozin (From [facility]) Allergy Severe kidney Verified 11/01/24 11:36 issues Exam Data for Last 24 hours Vital signs and Labs for Last 24 Hours: Temp Pulse Resp BP Pulse Ox O2 Del Method 97.9 F 89 17 140/99 H 96 Room Air 11/02/24 20:35 11/02/24 20:52 11/02/24 20:52 11/02/24 20:52 11/02/24 20:52 11/02/24 21:00 Laboratory Results - last 24 hr 11/02/24 14:55: WBC 8.3, RBC 3.16 L, Hgb 9.0 L, Hct 28.1 L, MCV 88.9, MCH 28.5, MCHC 32.0, RDW 17.3, Plt Count 258, MPV 8.8, Neut % (Auto) 70.5, Lymph % (Auto) 16.7, [place] % (Auto) 9.0, Eos % (Auto) 3.1, Baso % (Auto) 0.5, Neut # (Auto) 5.9, Lymph # (Auto) 1.4, [place] # (Auto) 0.8, Eos # (Auto) 0.3, Baso # (Auto) 0.0, ESR 118 H, PT 13.2 H, INR 1.21 H, APTT 26.5, Sodium 132 L, Potassium 4.0, Chloride 93 L, Carbon Dioxide 30, Anion Gap 13.0, BUN 45 H, Creatinine 1.50 H, Estimated GFR 35 L, Est GFR ( Amer) 43 L, Glucose 166 H, Calcium 9.7, Phosphorus 5.0 H, Magnesium 2.1, Total Bilirubin 0.5, AST 32, ALT 16, Alkaline Phosphatase 136 H, Total Creatine Kinase 107, Troponin I < 0.01, C-Reactive Protein 51.2 H, NT-Pro-B Natriuret Pep 70158 H, Total Protein 7.1, Albumin 3.7, Globulin 3.4 H, Albumin/Globulin Ratio 1.1, TSH 0.31 L, Thyroxine (T4) 6.1 11/02/24 15:30: Lactate 0.9 11/02/24 15:35: VBG pH 7.42 H, VBG pCO2 45.6, VBG pO2 60.9 H, VBG HCO3 29.0, VBG Total CO2 30.4 H, VBG O2 Saturation 89.3 H, VBG Base Excess 4.5 H, VBG Lactic Acid 1.5 11/02/24 15:38: SARS-CoV-2 (PCR) Not detected, Influenza A Untype (PCR) Not detected, Influenza Type B (PCR) Not detected 11/02/24 17:10: Ammonia < 9 L 11/02/24 17:15: Urine Color Yellow, Urine Appearance Clear, Urine pH 7.0, Ur Specific [place] 1.010, Urine Protein Negative, Urine Glucose (UA) Negative, Urine Ketones Negative, Urine Blood 2+ A, Urine Nitrate Negative, Urine Bilirubin Negative, Urine Urobilinogen 0.2, Ur Leukocyte Esterase Trace, Urine RBC 20-50, Urine WBC 10-20, Ur Squamous Epith Cells Occasional, Ur Transition Epith Cell Occ, Urine Bacteria None, Urine Opiates Screen Positive H, Urine Methadone Screen Negative, Ur Barbituates Screen Negative, Ur Phencyclidine Scrn Negative, Ur Amphetamines Screen Negative, U Benzodiazepines Scrn Negative, Urine Cocaine Screen Negative, U Marijuana (THC) Screen Negative 11/02/24 18:10: Troponin I 0.01 I & O for Last 24 hours: Intake & Output 10/30/24 10/31/24 11/01/24 11/02/24 23:59 23:59 23:59 23:59 Weight 78.018 kg Constitutional Constitutional: no acute distress *Routine HEENT Exam Head: Present normocephalic Eye: Present EOMI and PERRL ENT: Present mucous membranes moist *Routine Neck Exam Neck: Present supple; Absent lymphadenopathy *Routine Respiratory Exam Respiratory: Present CTA bilaterally *Routine Cardiovascular Exam Cardiovascular: Present RRR *Routine Abdominal Exam Abdominal: Present soft and normoactive bowel sounds; Absent tenderness *Routine Rectal Exam Rectal:: deferred *Routine Genitalia Exam Genitalia:: deferred *Routine Extremities Exam Extremities: Absent cyanosis, clubbing or edema *Routine Skin Exam Skin: Present intact and warm Comments: Right foot with amputation suture line, intact without purulence. Left lateral foot with sutures intact without purulence *Routine Neurological Exam Neurological: Present altered mental status and clonus Comments: Intermittently will answer questions in short phrases but otherwise myoclonic jerking noted in alteration of awareness Assessment and Plan *Assessment and plan (1) Encephalopathy: Status: Acute Qualifiers: Encephalopathy type: unspecified encephalopathy Qualified Code(s): G93.40 - Encephalopathy, unspecified Category: Medical Code(s): G93.40 - Encephalopathy, unspecified (2) Chronic systolic heart failure: Status: Acute Category: Medical Code(s): I50.22 - Chronic systolic (congestive) heart failure (3) Diabetes mellitus: Status: Acute Qualifiers: Diabetes mellitus type: type 2 Category: Medical Code(s): E11.9 - Type 2 diabetes mellitus without complications (4) History of amputation of right second toe: Status: Acute Category: Surgical Code(s): Z89.421 - Acquired absence of other right toe(s) (5) History of partial ray amputation of fifth toe of left foot: Status: Acute Category: Surgical Code(s): Z89.422 - Acquired absence of other left toe(s) (6) Hypertension: Status: Acute Qualifiers: Hypertension type: unspecified Qualified Code(s): I10 - Essential (primary) hypertension Category: Medical Code(s): I10 - Essential (primary) hypertension (7) Class 1 obesity: Status: Acute Category: Medical Code(s): E66.811 - Obesity, class 1 (8) Peripheral arterial disease: Status: Acute Category: Medical Code(s): I73.9 - Peripheral vascular disease, unspecified Plan Admit to medicine #Encephalopathy Metabolic versus toxic Myoclonus noted, may be related to continued gabapentin usage although renal function not significantly elevated. Is on daptomycin and Rocephin via PICC line until November for positive tissue cultures from bilateral lower extremities. Per daughter, Dr. Jones said encephalopathy may be related to Rocephin so Rocephin changed to cefepime today. She has already had her doses today. Will defer antibiotic therapy for now until able to speak with dayshift provider regarding medication toxicity. Does not appear acutely infected or septic at this time. Hold all sedating medications at this time Requiring sitter as patient is impulsive trying to get out of bed but redirectable Reorient as needed Blood cultures obtained, will obtain third blood culture from PICC line, follow- up results #CKD stage III Renal failure slowly increasing since 10/23/2024 Baseline of 0.8 on 10/23/2024 now uptrend to 1.5 Does not meet criteria for GENOVEVA Will initiate slow IV fluids. Patient at her normal respiratory baseline #Combined chronic systolic and diastolic heart failure proBNP of 16,000 which is half of prior greater than 30,[address] without evidence of overload Does not appear overloaded at this time. Given rising creatinine, providing slow maintenance IV fluids for hydration Prior echocardiogram with EF of 40% with grade 2 diastolic dysfunction Monitor respiratory status #Osteoarthritis of right foot #Osteoarthritis of left foot 10/23/24 s/p Right 2nd toe amputation, Right 5th metatarsal partial resection, open bone biopsy, Left 5th partial metatarsal amputation/resection, Bilateral foot wound wide excisional debridement with ulcer excision. Micro data as follows 10/23/24, Intraop Specimens: Micro: Right 2nd toe culture: MSSA, MRSA Right 5th metatarsal ulcer TCx: Klebsiella pneumoniae Left 5th metatarsal BCx: MSSA Left 5th metatarsal ulcer TCx: MRSA Path: Right 2nd toe: Benign bone and bone marrow with degenerative change and fat necrosis, no additional abnormalities identified. Right 5th metatarsal bone: Benign bone and bone marrow with degenerative change and fat necrosis, no additional abnormalities identified. Left 5th metatarsal bone: Benign bone and bone marrow with degenerative change and fat necrosis, no additional abnormalities identified. Antibiotics per podiatry as follows Antibiotics: -Dapto 1g IV q24h (11/30/24) -Ceftriaxone 1g IV q24h (10/29-12/01/24)----switched to cefepime to start on [address] Finnegan's office Placed on hold currently given encephalopathy. Received last doses on 11/01/24 #DM2 with hypoglycemia On prior hospitalization, persistent hypoglycemia. A1c of 5.3. At this juncture, will hold insulin usage at this time given profound hypoglycemia even with long-acting insulin reduced. Blood sugar currently 80. Every 2 hour fingersticks x 3 then AC and at bedtime. #Chronic opioid use Discharged out of the hospital on Cade 10mg. Suggest reducing dosage given profound encephalopathy with polypharmacy #Hypothyroidism Continue levothyroxine 200 mcg. History of noncompliance. TSH 14 today which is improved from 21
[2024-11-02 22:10] LABS: POC Glucose,Bedside 85 (70-110)
[2024-11-02 22:19] LABS: Troponin I 0.02 ng/ml (0.00-0.034)
[2024-11-03] VITALS (8 sets, daily range): BP systolic 116–140; BP diastolic 68–80; PULSE 70–92; RESP 16–22; TEMP 36.6–37.2; O2SAT 93–100; BMI 28.0
[2024-11-03 00:04] LABS: POC Glucose,Bedside 98 (70-110)
[2024-11-03 02:14] LABS: POC Glucose,Bedside 103 (70-110)
--- NOTE | 2024-11-03 03:35 | PC.NURSE ---
Ms Micheline Hernandez was newly admitted on behalf of the documented diagnosis altered mental status. During this shift, she has expressed significant confusion and fatigue. She is alert to herself and can recite her birthday; however, she has been quite disoriented to place, thinking that she is at home and has aggressively projected toward nursing staff that they need to get dressed for school in the morning. While awake, she has also occasionally yelled and beckoned for a pet by the name of Lyndsey. Patient has been consistently reoriented and redirected by nursing staff during wakeful and restless periods. At this time, she is resting in bed with eyes closed, respirations even and unlabored, and no apparent distress. Her lower extremities were assessed; amputations were noted as appropriately. Left foot is currently dressed; sutures are present on the right foot. Bed rest was encouraged with one-on-one observation this shift due to impulsiveness and safety precautions per current mental state and history of four falls within 24 hours, stated per [id number]. Admission assessments and home medication reconciliation were completed by the charge nurse (Luis Enrique Jensen RN). Glucose checks were performed every 2 hours for three times; because the patient's glucose readings have remained within desired range, glucose checks ACHS were OK'd from now on by the ACNP this shift. Tripp catheter remains in place for history of urinary retention. Patient self-turns in bed effectively but requires vast assistance during transfers, as applicable. At this time, the patient is resting in bed without any further complaints. No new needs at this time. Bed alarm on. Call light within reach.
[2024-11-03 05:28] LABS: Chloride 97 mmol/L (98-107); Potassium 3.8 mmoL/L (3.5-5.1); Sodium 132 mmol/L (136-145)
[2024-11-03 05:31] LABS: Anion Gap 9.8 mEq/L (5-15); Blood Urea Nitrogen 36 mg/dl (7-17); Calcium 9.5 mg/dl (8.4-10.2); Carbon Dioxide 29 mmol/L (22.0-30.0); Creatinine Clearance Estimated 51 mL/min (50-200); Estimated Glomerular Filt Rate 42 ml/min (>60); GFR (African American) 50 ML/MIN (>60); Glucose 97 mg/dl (74-100); Phosphorous 4.2 mg/dl (2.5-4.5)
[2024-11-03 05:32] LABS: Magnesium 1.9 mg/dl (1.6-2.3)
[2024-11-03 05:49] LABS: POC Glucose,Bedside 110 (70-110)
[2024-11-03 05:58] LABS: Basophils % 0.5 % (0.1-2.0); Eosinophils # 0.3 Kmm3 (0.0-0.4); Eosinophils % 3.6 % (0.1-12.0); Hematocrit 27.3 % (37.0-47.0); Hemoglobin 8.7 g/dL (12.2-16.2); Immature Granulocytes # 0.04 10^3uL; Immature Granulocytes % 0.5 %; Lymphocytes # 1.6 K/mm3 (0.7-4.5); Lymphocytes % 22.1 % (10-50); Mean Corpuscular HGB Conc 31.9 g/dL (31.8-35.4); Mean Corpuscular Hemoglobin 28.3 pg (27.0-31.2); Mean Corpuscular Volume 88.9 fl (81-99); Monocytes # 0.6 K/mm3 (0.1-1.0); Monocytes % 8.5 % (1.7-9.3); Neutrophils # 4.7 K/mm3 (1.8-7.8); Neutrophils % 64.8 % (37.0-80.0); Nucleated Red Blood Cells # 0 10^3/uL; Nucleated Red Blood Cells % 0 %; Platelet Count 238 K/mm3 (142-424); Red Blood Count 3.07 M/mm3 (4.20-5.40); Red Cell Distribution Width 17.3 % (11.5-17.5); White Blood Count 7.3 K/mm3 (4.8-10.8)
[2024-11-03] MEDS: HEPARIN SODIUM 5,000 UNIT/ML VIAL 5000 UNIT SUBCUT ×3 (08:39→20:39)
--- NOTE | 2024-11-03 09:51 | P.CONPHA_ITS ---
Pharmacy Intervention Comments: MEDICATION RECONCILIATION COMPLETE USING MAR FROM [facility].
--- NOTE | 2024-11-03 09:51 | HMH.PHAINT1 ---
Pharmacy Intervention Comments: MEDICATION RECONCILIATION COMPLETE USING MAR FROM [facility].
--- NOTE | 2024-11-03 10:26 | EXP.ACUTE.PN ---
Subjective *Date: 11/03/24 *Time: 17:41 Interval history: Patient more alert this morning on exam. Knows who she is and where she was. Does not recall coming to the hospital. Tolerating p.o. intake. Had one-on-one sitter overnight, no longer necessitating. On room air. Tripp remains in place, draining clear yellow urine Medical Exam Vital signs and Labs for Last 24 Hours: Vital Signs Temp Pulse Pulse Resp BP BP Pulse Ox 11/03/24 09:00 11/03/24 08:00 11/03/24 07:14 98.2 F 86 17 134/70 98 11/03/24 06:35 11/03/24 05:00 11/03/24 04:00 70 11/03/24 03:00 11/03/24 01:00 11/03/24 00:00 80 11/03/24 00:00 99.0 F 89 16 140/72 93 L 11/02/24 23:00 11/02/24 21:00 11/02/24 20:52 89 17 140/99 H 96 11/02/24 20:35 97.9 F 91 H 26 H 122/103 H 11/02/24 20:32 98.9 F 87 20 122/93 H 95 11/02/24 20:23 89 16 96 11/02/24 19:30 86 19 140/99 H 11/02/24 19:27 98.7 F 84 20 149/87 H 96 11/02/24 19:01 89 17 149/82 H 95 11/02/24 18:31 89 157/85 H 97 11/02/24 18:01 89 14 149/76 H 94 L 11/02/24 17:32 94 H 20 181/89 H 94 L 11/02/24 15:31 90 20 157/83 H 95 11/02/24 15:16 89 17 149/67 H 95 11/02/24 15:00 98.6 F 90 16 149/67 H 98 O2 Del Method 11/03/24 09:00 Room Air 11/03/24 08:00 Room Air 11/03/24 07:14 Room Air 11/03/24 06:35 Room Air 11/03/24 05:00 Room Air 11/03/24 04:00 11/03/24 03:00 Room Air 11/03/24 01:00 Room Air 11/03/24 00:00 11/03/24 00:00 Room Air 11/02/24 23:00 Room Air 11/02/24 21:00 Room Air 11/02/24 20:52 Room Air 11/02/24 20:35 11/02/24 20:32 Room Air 11/02/24 20:23 Room Air 11/02/24 19:30 11/02/24 19:27 Room Air 11/02/24 19:01 11/02/24 18:31 Room Air 11/02/24 18:01 Room Air 11/02/24 17:32 Room Air 11/02/24 15:31 Room Air 11/02/24 15:16 Room Air 11/02/24 15:00 Room Air Intake and Output 11/02/24 11/03/24 11/03/24 23:59 07:59 15:59 Intake Total 198 / 198 Output Total 400 / 550 550 / 550 Balance -400 / -352 -352 / -352 Intake: Intake, Oral Amount 100 / 100 Infusion Intake 98 / 98 0.9 % Sodium Chloride 1000ML 1, 98 / 98 000 ml @ 50 mls/hr IV .Q20H [facility] Rx#:[id number] Output: Output, Urine Amount 400 / 550 550 / 550 Other: Number of Unmeasured Voids 0 0 Weight 71.804 kg Patient Weight 11/03/24 23:59 Weight 71.804 kg Laboratory Results - last 24 hr 11/02/24 14:55: WBC 8.3, RBC 3.16 L, Hgb 9.0 L, Hct 28.1 L, MCV 88.9, MCH 28.5, MCHC 32.0, RDW 17.3, Plt Count 258, MPV 8.8, Neut % (Auto) 70.5, Lymph % (Auto) 16.7, Nobles % (Auto) 9.0, Eos % (Auto) 3.1, Baso % (Auto) 0.5, Neut # (Auto) 5.9, Lymph # (Auto) 1.4, Nobles # (Auto) 0.8, Eos # (Auto) 0.3, Baso # (Auto) 0.0, ESR 118 H, PT 13.2 H, INR 1.21 H, APTT 26.5, Sodium 132 L, Potassium 4.0, Chloride 93 L, Carbon Dioxide 30, Anion Gap 13.0, BUN 45 H, Creatinine 1.50 H, Estimated GFR 35 L, Est GFR ( Amer) 43 L, Glucose 166 H, Calcium 9.7, Phosphorus 5.0 H, Magnesium 2.1, Total Bilirubin 0.5, AST 32, ALT 16, Alkaline Phosphatase 136 H, Total Creatine Kinase 107, Troponin I < 0.01, C-Reactive Protein 51.2 H, NT-Pro-B Natriuret Pep 20749 H, Total Protein 7.1, Albumin 3.7, Globulin 3.4 H, Albumin/Globulin Ratio 1.1, TSH 0.31 L, Thyroxine (T4) 6.1 11/02/24 15:30: Lactate 0.9 11/02/24 15:35: VBG pH 7.42 H, VBG pCO2 45.6, VBG pO2 60.9 H, VBG HCO3 29.0, VBG Total CO2 30.4 H, VBG O2 Saturation 89.3 H, VBG Base Excess 4.5 H, VBG Lactic Acid 1.5 11/02/24 15:38: SARS-CoV-2 (PCR) Not detected, Influenza A Untype (PCR) Not detected, Influenza Type B (PCR) Not detected 11/02/24 17:10: Ammonia < 9 L 11/02/24 17:15: Urine Color Yellow, Urine Appearance Clear, Urine pH 7.0, Ur Specific [place] 1.010, Urine Protein Negative, Urine Glucose (UA) Negative, Urine Ketones Negative, Urine Blood 2+ A, Urine Nitrate Negative, Urine Bilirubin Negative, Urine Urobilinogen 0.2, Ur Leukocyte Esterase Trace, Urine RBC 20-50, Urine WBC 10-20, Ur Squamous Epith Cells Occasional, Ur Transition Epith Cell Occ, Urine Bacteria None, Urine Opiates Screen Positive H, Urine Methadone Screen Negative, Ur Barbituates Screen Negative, Ur Phencyclidine Scrn Negative, Ur Amphetamines Screen Negative, U Benzodiazepines Scrn Negative, Urine Cocaine Screen Negative, U Marijuana (THC) Screen Negative 11/02/24 18:10: Troponin I 0.01 11/02/24 21:37: Troponin I 0.02 11/02/24 21:47: POC Glucose 85 11/02/24 23:57: POC Glucose 98 11/03/24 02:08: POC Glucose 103 11/03/24 05:15: WBC 7.3, RBC 3.07 L, Hgb 8.7 L, Hct 27.3 L, MCV 88.9, MCH 28.3, MCHC 31.9, RDW 17.3, Plt Count 238, MPV 9.0, Neut % (Auto) 64.8, Lymph % (Auto) 22.1, Nobles % (Auto) 8.5, Eos % (Auto) 3.6, Baso % (Auto) 0.5, Neut # (Auto) 4.7, Lymph # (Auto) 1.6, Nobles # (Auto) 0.6, Eos # (Auto) 0.3, Baso # (Auto) 0.0, Sodium 132 L, Potassium 3.8, Chloride 97 L, Carbon Dioxide 29, Anion Gap 9.8, BUN 36 H, Creatinine 1.30 H, Estimated Creat Clear 51, Estimated GFR 42 L, Est GFR ( Amer) 50 L, Glucose 97 D, Calcium 9.5, Phosphorus 4.2, Magnesium 1.9 11/03/24 05:41: POC Glucose 110 I & O for Labs for Last 24 Hours: Intake & Output 10/31/24 11/01/24 11/02/24 11/03/24 23:59 23:59 23:59 23:59 Intake Total 198 / 198 Output Total 400 / 550 550 / 550 Balance -400 / -352 -352 / -352 Weight 78.018 kg 71.804 kg Constitutional: Present no acute distress, average body habitus, chronically ill appearing and somnolent Head: Present atraumatic and normocephalic ENT: Present normal exam Respiratory: Present normal respiratory effort; Absent rhonchi, wheezes or crackles Cardiac: Present Reg Rate and Rhythm GI: Present soft, distention and normal bowel sounds; Absent tenderness Extremities: Present full ROM and edema (Trace lower extremity edema) Comment:: 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 Sutures and salty still in place. Left foot with bandage in place Skin: Present wounds; Absent erythema Neuro: Present Grossly Intact, alert, awake, oriented x 3 and moves all extremities Assessment and Plan *Assessment and plan (1) Encephalopathy: Status: Acute Qualifiers: Encephalopathy type: unspecified encephalopathy Qualified Code(s): G93.40 - Encephalopathy, unspecified Category: Medical Code(s): G93.40 - Encephalopathy, unspecified (2) Chronic systolic heart failure: Status: Acute Category: Medical Code(s): I50.22 - Chronic systolic (congestive) heart failure (3) Diabetes mellitus: Status: Acute Qualifiers: Diabetes mellitus type: type 2 Category: Medical Code(s): E11.9 - Type 2 diabetes mellitus without complications (4) History of amputation of right second toe: Status: Acute Category: Surgical Code(s): Z89.421 - Acquired absence of other right toe(s) (5) History of partial ray amputation of fifth toe of left foot: Status: Acute Category: Surgical Code(s): Z89.422 - Acquired absence of other left toe(s) (6) Hypertension: Status: Acute Qualifiers: Hypertension type: unspecified Qualified Code(s): I10 - Essential (primary) hypertension Category: Medical Code(s): I10 - Essential (primary) hypertension (7) Class 1 obesity: Status: Acute Category: Medical Code(s): E66.811 - Obesity, class 1 (8) Peripheral arterial disease: Status: Acute Category: Medical Code(s): I73.9 - Peripheral vascular disease, unspecified (9) Polypharmacy: Status: Acute Category: Medical Code(s): Z79.899 - Other medical 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 At [facility] for the past week for therapy, wound care, antibiotics. Developed worsening confusion. Strong concern for polypharmacy. Holding medications at this time. Improvement Tatian this morning. Continues to require patient management only slowly add back medications and monitor for side effect/adverse effect. Problems addressed as follows: #Encephalopathy, toxic Myoclonus improved. Baseline mentation this morning. -Extensive discussion about polypharmacy. On multiple medications that could account for her altered mental status including amitriptyline, bupropion, citalopram, gabapentin, hydrocodone, pramipexole - Will cautiously resume medications. Out of concern for causing opiate withdrawal or withdrawal from gabapentin, will resume gabapentin at low-dose of 200 mg 3 times a day. Resume hydrocodone 5/325 1 tab every 6 hours as needed for severe pain as opposed to scheduled. - Resume citalopram 20 mg daily, bupropion 150 mg twice daily, amitriptyline 50 mg at night. - Holding pramipexole due to concern/risk for akathisia - Improvement in mentation, no longer neededing one-on-one sitter #CKD stage III Kidney function at baseline with BUN 36, creatinine 1.3. Sodium 132. Potassium 3.8. - Repeat CBC, CMP, magnesium ordered for - Discontinue IV fluids, tolerating p.o. intake #Combined chronic systolic and diastolic heart failure proBNP of 16,000 which is half of prior greater than 30,[address] without evidence of overload Prior echocardiogram with EF of 40% with grade 2 diastolic dysfunction Monitor respiratory status #Osteoarthritis of right foot #Osteoarthritis of left foot 10/23/24 s/p Right 2nd toe amputation, Right 5th metatarsal partial resection, open bone biopsy, Left 5th partial metatarsal amputation/resection, Bilateral foot wound wide excisional debridement with ulcer excision. Micro data as follows 10/23/24, Intraop Specimens: Micro: Right 2nd toe culture: MSSA, MRSA Right 5th metatarsal ulcer TCx: Klebsiella pneumoniae Left 5th metatarsal BCx: MSSA Left 5th metatarsal ulcer TCx: MRSA Path: Right 2nd toe: Benign bone and bone marrow with degenerative change and fat necrosis, no additional abnormalities identified. Right 5th metatarsal bone: Benign bone and bone marrow with degenerative change and fat necrosis, no additional abnormalities identified. Left 5th metatarsal bone: Benign bone and bone marrow with degenerative change and fat necrosis, no additional abnormalities identified. - Resume daptomycin 1 g IV daily and ceftriaxone 2 g daily - Plan for antibiotics through 12/01/2024 #DM2 with hypoglycemia On prior hospitalization, persistent hypoglycemia. A1c of 5.3. At this juncture, will hold insulin usage at this time given profound hypoglycemia even with long-acting insulin reduced. Blood sugar currently 110 this morning - Fingersticks ACHS #Chronic opioid use Discharged out of the hospital on [place] 10mg. Reduce to 5 mg every 6 hours as needed as opposed to scheduled. Monitoring for withdrawal symptoms and toxicity #Hypothyroidism Continue levothyroxine 200 mcg. History of noncompliance. TSH 14 today which is improved from 21 Full code Regular diet Heparin 5000 units SQ 3 times daily
[2024-11-03] MEDS: FUROSEMIDE 80 MG TABLET PO (10:45)
[2024-11-03] MEDS: CARVEDILOL 12.5MG TABLET 12.5 MG PO ×2 (10:45→20:44)
[2024-11-03] MEDS: ALLOPURINOL 100MG TABLET 100 MG PO (10:45)
[2024-11-03] MEDS: buPROPion HCl SR 150MG TAB 150 MG PO ×2 (10:45→20:39)
[2024-11-03] MEDS: LEVOTHYROXINE 100MCG (0.1MG) TAB 200 MCG PO (10:45)
[2024-11-03] MEDS: CLOPIDOGREL 75MG TAB 75 MG PO (10:45)
[2024-11-03] MEDS: ASPIRIN EC 81MG TABLET 81 MG PO (10:45)
[2024-11-03] MEDS: CITALOPRAM 20MG TABLET 20 MG PO (10:45)
[2024-11-03] MEDS: SPIRONOLACTONE 25MG TABLET 25 MG PO (10:46)
[2024-11-03] MEDS: FOLIC ACID 1MG TABLET 1 MG PO (10:46)
[2024-11-03] MEDS: POLYETHYLENE GLYCOL 3350 238GM POWDER 17 GM PO (10:47)
[2024-11-03 11:12] LABS: POC Glucose,Bedside 136 (70-110)
[2024-11-03] MEDS: CEFTRIAXONE SODIUM 2 GM in 0.9 % SODIUM CHLORIDE 100 ML IV (11:18)
--- NOTE | 2024-11-03 11:59 | HMH.PTEV ---
Physical Therapy Evaluation Rehab PT IP Evaluation Start: 11/02/24 21:13 Freq: ONCE Status: Active Protocol: Document 11/03/24 11:38 PDESEROUX (Rec: 11/03/24 11:59 [email or web address] [id number]) Subjective/History History History Pt. is a 64 year old female who presents to 2nd floor [facility] Inpatient for c/o altered mental status, pt. vocalized I guess I didn't know where I was. Pt. states she was at home prior to admittance to [facility], however, E.R. Physician documentation stated pt. was at [facility] prior to [facility] admittance. Pt. vocalizes being in and out of hospitals for the past 3 months secondary to surgeries. E.R Physician documentation stated pt. was receiving rehabilitation at [facility] and was doing better. Pt. was able to vocalize home environment situation, states living w/ her grandson who is 14 yoa, however, grandson currently goes to school and doesn't come home until the evening. Pt. reports I do what I can on my own. Pt. reports negotiating steps from first<>second floor of home sideways. Pt. reports using the SPC for short distances, however, uses her walker for longer distances in her home environment. PMH includes type 2 diabetes, hypertension, hyperlipidemia, CAD, peripheral vascular disease, tobacco dependence, Charcot foot, prior history of osteomyelitis. Subjective Subjective Pt. reports, my foot hurts. Pt. had [facility] employee sitting one on one at bedside w/ pt. upon entrance into room this date. New diagnosis of cancer in past 12 No months? [facility] How much help from another person do you currently need... Turning from your back to your side None while in a flat bed without using bedrails? Moving from lying on back to sitting on None the side of a flat bed without using bedrails? Moving to and from a bed to a chair ( A lot including a wheelchair)? Standing up from a chair using your arms A lot ? (e.g., wheelchair, bedside chair) Walking in hospital room? A lot Climbing 3-5 steps with a railing? A lot Mobility Score 16 Mobility Level [facility] Mobility Calculator Mobility 5 Stand (1 or more minutes) Rehab PT IP Eval Objective Appearance Patient Behavior Cooperative,Restless, Distractible,Talkative, Confused Patient Orientation Person,Place,Birthday Difficulty following instructions mild Speech Pattern Inappropriate,Rambling, Excessive,Excited Ambulation Patient Able to Ambulate Yes Ambulation Observation IP General Gait Pattern Observation Antalgic Gait,Ataxic Gait Ambulation Distance (feet) 15 Ambulation Assistive Device Rolling Walker Ambulation Ability Moderate x 1 (50% assist) Balance Ability to Arise Able, uses arms to help Sitting Balance Steady, safe Standing Balance Narrow stance w/o support Dynamic Sitting Balance Ability Good Dynamic Standing Balance Ability Fair Transfers Bed Transfer Ability Contact Guard/Hand Hold Chair Transfer Ability Moderate x 1 (50% assist) Sit to Stand Bed Transfer Ability Moderate x 1 (50% assist) Sit to Stand Chair Transfer Ability Moderate x 1 (50% assist) Pain Left Foot Pain Intensity 8 Right Foot Pain Intensity 8 ROM LLE PT ROM Status WFL Abnormal ROM Comment <50% norms ankle ROM grossly MMT RLE PT MMT WFL LLE PT MMT WFL Abnormal MMT Grade 0/5 LLE digit, 3+/5 ankle DF/ PF Rehab PT IP prob,goals,plan Problems Date of Evaluation: 11/03/24 PT IP Problems Transfers,Gait,Balance,Self care,Safety Rehab Potential Rehab Potential Good Equipment Needs Assistive Devices Rolling / Wheeled Walker Plan PT Intervention Plan Transfers,Gait,Balance,Self care,Safety,Therapeutic Exercise PT Plan Frequency BID Duration LOS Discharge Goals Bed Transfer Ability Supervision/Stand by Sit to Stand Chair Transfer Ability Minimal x 1 (25% assist) Ambulation Assistive Device Rolling Walker Ambulation Distance (feet) 25 Discharge Plan PT Discharge Plan Upon D/C from [facility], once medically stable deemed per MD , pt. is most appropriate to return to [facility] and continue w/ rehabilitation to further improve on current quality of life and iADLs. Eval Complexity Eval Charge Codes 68829 - Moderate Complexity PHYSICIAN CERTIFICATION: I certify the specified therapy services for Micheline Hernandez are required, authorized, and reviewed every 30 days.
[2024-11-03] MEDS: GABAPENTIN 100MG CAPSULE 200 MG PO ×2 (12:02→20:37)
[2024-11-03] MEDS: DAPTOmycin 500 MG in 0.9 % SODIUM CHLORIDE 50 ML 100 MG IV (12:02)
--- NOTE | 2024-11-03 18:00 | PC.NURSE ---
patient is more alert this shift (a/ox3) remains on room air. harris in place, clamped per MD to promote bladder training. Patient has ambulated in the room x1 assist. ACHS. NS infusing at to mls/hr. patient currently sitting up in bed, bed alarm in place. no further requests at this time.
[2024-11-03 18:15] LABS: POC Glucose,Bedside 222 (70-110)
[2024-11-03] MEDS: ATORVASTATIN 40MG TABLET 40 MG PO (20:37)
[2024-11-03] MEDS: PANTOPRAZOLE 40MG TABLET 40 MG PO (20:37)
[2024-11-03] MEDS: HYDROCODONE/APAP 5/325 MG TABLET 1 TAB PO (20:38)
[2024-11-03] MEDS: AMITRIPTYLINE 50MG TABLET 50 MG PO (20:39)
[2024-11-03] MEDS: LISINOPRIL 20MG TABLET 40 MG PO (20:39)
[2024-11-03] MEDS: 0.9 % SODIUM CHLORIDE 1000ML 1,000 ML 50 ML IV (20:44)
[2024-11-04] VITALS (10 sets, daily range): BP systolic 116–143; BP diastolic 52–106; PULSE 76–104; RESP 16–24; TEMP 36.5–36.9; O2SAT 93–99; BMI 28.0
--- NOTE | 2024-11-04 06:04 | PC.NURSE ---
Pt alert and oriented x 4, however this am she woke up a bit confused. pt is A & O x3. pt did complain of bilateral foot pain and it was treated per mar. pt did require one on one observation for majority of the night due to recent multiple falls. alarm is set. pt is up to chair this am. no other acute changes to note at this time.
--- NOTE | 2024-11-04 06:07 | PC.NURSE ---
pt has tolerated fluids well. pt has tolerated bladder training well with a total of 580 out this shift. pt harris is currently clamped.
[2024-11-04] MEDS: LEVOTHYROXINE 100MCG (0.1MG) TAB 200 MCG PO (06:40)
[2024-11-04 07:54] LABS: Basophils % 0.3 % (0.1-2.0); Eosinophils # 0.3 Kmm3 (0.0-0.4); Hemoglobin 8.5 g/dL (12.2-16.2); Immature Granulocytes # 0.03 10^3uL; Immature Granulocytes % 0.4 %; Lymphocytes # 1.7 K/mm3 (0.7-4.5); Lymphocytes % 24.4 % (10-50); Mean Corpuscular HGB Conc 31.5 g/dL (31.8-35.4); Mean Corpuscular Hemoglobin 28.6 pg (27.0-31.2); Mean Corpuscular Volume 90.9 fl (81-99); Mean Platelet Volume 8.6 fl (7.4-10.4); Monocytes # 0.6 K/mm3 (0.1-1.0); Monocytes % 8.7 % (1.7-9.3); Neutrophils # 4.2 K/mm3 (1.8-7.8); Neutrophils % 62.2 % (37.0-80.0); Nucleated Red Blood Cells # 0 10^3/uL; Nucleated Red Blood Cells % 0 %; Platelet Count 232 K/mm3 (142-424); Red Blood Count 2.97 M/mm3 (4.20-5.40); Red Cell Distribution Width 17.3 % (11.5-17.5); Red Cell Distribution Width-SD 57.9 fL; White Blood Count 6.8 K/mm3 (4.8-10.8)
[2024-11-04 08:08] LABS: Chloride 99 mmol/L (98-107)
[2024-11-04 08:09] LABS: Albumin Level 3.6 g/dl (3.5-5.0); Sodium 133 mmol/L (136-145)
[2024-11-04 08:11] LABS: Blood Urea Nitrogen 28 mg/dl (7-17); Creatinine Clearance Estimated 51 mL/min (50-200); Estimated Glomerular Filt Rate 42 ml/min (>60); GFR (African American) 50 ML/MIN (>60)
[2024-11-04] MEDS: SENNA 8.6MG TABLET 17.2 MG PO (08:11)
[2024-11-04 08:12] LABS: Alanine Aminotransferase 17 U/L (12-78); Albumin/Globulin Ratio 1.1 (1.1-1.8); Alkaline Phosphatase 127 U/L (38-126); Aspartate Amino Transferase 40 U/L (14-36); Bilirubin,Total 0.3 mg/dl (0.2-1.3); Calcium 9.2 mg/dl (8.4-10.2); Carbon Dioxide 29 mmol/L (22.0-30.0); Globulin 3.3 g/dL (1.3-3.2); Glucose 187 mg/dl (74-100); Total Protein,Serum 6.9 g/dl (6.3-8.2)
[2024-11-04] MEDS: CARVEDILOL 12.5MG TABLET 12.5 MG PO ×2 (08:12→20:36)
[2024-11-04] MEDS: ALLOPURINOL 100MG TABLET 100 MG PO (08:12)
[2024-11-04] MEDS: CLOPIDOGREL 75MG TAB 75 MG PO (08:12)
[2024-11-04] MEDS: CITALOPRAM 20MG TABLET 20 MG PO (08:12)
[2024-11-04] MEDS: FUROSEMIDE 80 MG TABLET PO (08:12)
[2024-11-04] MEDS: FOLIC ACID 1MG TABLET 1 MG PO (08:12)
[2024-11-04] MEDS: HEPARIN SODIUM 5,000 UNIT/ML VIAL 5000 UNIT SUBCUT ×3 (08:12→20:37)
[2024-11-04] MEDS: buPROPion HCl SR 150MG TAB 150 MG PO ×2 (08:12→20:36)
[2024-11-04] MEDS: ASPIRIN EC 81MG TABLET 81 MG PO (08:12)
[2024-11-04] MEDS: SPIRONOLACTONE 25MG TABLET 25 MG PO (08:12)
[2024-11-04 08:18] LABS: C-Reactive Protein 46.4 mg/L (0-4)
[2024-11-04 09:01] LABS: Erythrocyte Sedimentation Rate 86 mm/hr (0-30)
[2024-11-04] MEDS: GABAPENTIN 100MG CAPSULE 200 MG PO ×3 (09:20→20:36)
[2024-11-04] MEDS: CEFTRIAXONE SODIUM 2 GM in 0.9 % SODIUM CHLORIDE 100 ML IV (09:23)
[2024-11-04] MEDS: DAPTOmycin 500 MG in 0.9 % SODIUM CHLORIDE 50 ML 100 MG IV (10:10)
[2024-11-04 11:12] LABS: POC Glucose,Bedside 227 (70-110)
[2024-11-04] MEDS: HYDROCODONE/APAP 5/325 MG TABLET 1 TAB PO ×2 (11:49→20:37)
--- NOTE | 2024-11-04 15:28 | EXP.ACUTE.PN ---
Subjective *Date: 11/04/24 *Time: 15:28 Interval history: Somewhat more confused this morning. Knows who she is. Does not know why she is at the hospital. Temporarily could not remember who I was. Is sitting at bedside, stable on room air. Afebrile. No nausea or Medical Exam Vital signs and Labs for Last 24 Hours: Vital Signs Temp Pulse Pulse Resp BP Pulse Ox O2 Del Method 11/04/24 15:00 Room Air 11/04/24 13:00 Room Air 11/04/24 12:00 98.0 F 76 22 121/81 97 11/04/24 11:00 Room Air 11/04/24 09:00 Room Air 11/04/24 08:00 Room Air 11/04/24 08:00 98.1 F 77 24 137/62 99 11/04/24 06:48 Room Air 11/04/24 05:00 Room Air 11/04/24 03:00 Room Air 11/04/24 01:00 Room Air 11/04/24 00:00 97.8 F 92 H 16 138/64 97 Room Air 11/04/24 00:00 98.2 F 81 16 124/68 94 L Room Air 11/03/24 23:00 Room Air 11/03/24 21:00 Room Air 11/03/24 20:00 96 Room Air 11/03/24 20:00 97.9 F 92 H 18 128/68 96 Room Air 11/03/24 18:43 Room Air 11/03/24 17:00 Room Air 11/03/24 16:00 80 11/03/24 16:00 82 22 116/80 98 Room Air Intake and Output 11/03/24 11/04/24 11/04/24 23:59 07:59 15:59 Intake Total 620 / 1648 250 / 830 580 / 830 Output Total 975 / 2225 500 / 850 350 / 850 Balance -355 / -577 -250 / -20 230 / -20 Intake: Intake, Oral Amount 300 / 980 480 / 480 Intake, Total IV Amount 320 / 570 250 / 350 100 / 350 0.9 % Sodium Chloride 1000ML 1, 320 / 570 250 / 250 000 ml @ 50 mls/hr IV .Q20H [facility] Rx#:[id number] Ceftriaxone Sodium 2 gm In 0.9 100 / 100 % Sodium Chloride 100 ml @ 200 mls/hr IV Q24H [facility] Rx#:[id number] Output: Output, Urine Amount 200 / 1450 500 / 500 Output, Urine Amount (Catheter) 775 / 775 350 / 350 Tripp 775 / 775 350 / 350 Other: Number of Unmeasured Voids 0 Laboratory Results - last 24 hr 11/03/24 17:42: POC Glucose 222 H 11/04/24 07:30: WBC 6.8, RBC 2.97 L, Hgb 8.5 L, Hct 27.0 L, MCV 90.9, MCH 28.6, MCHC 31.5 L, RDW 17.3, Plt Count 232, MPV 8.6, Neut % (Auto) 62.2, Lymph % (Auto) 24.4, [place] % (Auto) 8.7, Eos % (Auto) 4.0, Baso % (Auto) 0.3, Neut # (Auto) 4.2, Lymph # (Auto) 1.7, [place] # (Auto) 0.6, Eos # (Auto) 0.3, Baso # (Auto) 0.0, ESR 86 H, Sodium 133 L, Potassium 4.0, Chloride 99, Carbon Dioxide 29, Anion Gap 9.0, BUN 28 H, Creatinine 1.30 H, Estimated Creat Clear 51, Estimated GFR 42 L, Est GFR ( Amer) 50 L, Glucose 187 H, Calcium 9.2, Magnesium 2.0, Total Bilirubin 0.3, AST 40 H, ALT 17, Alkaline Phosphatase 127 H, C-Reactive Protein 46.4 H, Total Protein 6.9, Albumin 3.6, Globulin 3.3 H, Albumin/Globulin Ratio 1.1 11/04/24 11:05: POC Glucose 227 H I & O for Labs for Last 24 Hours: Intake & Output 11/01/24 11/02/24 11/03/24 11/04/24 23:59 23:59 23:59 23:59 Intake Total 1398 / 1648 830 / 830 Output Total 400 / 550 1925 / 2225 850 / 850 Balance -400 / -352 -527 / -577 -20 / -20 Weight 78.018 kg 71.804 kg Microbiology Reports for the Last 24 Hours: Microbiology 11/02/24 17:15 Urine,Catheterized Urine Culture - Final No growth. 11/02/24 15:29 Blood Blood Culture - Preliminary NO GROWTH AFTER 24 HOURS 11/02/24 15:27 Blood Blood Culture - Preliminary NO GROWTH AFTER 24 HOURS Constitutional: Present no acute distress, average body habitus, chronically ill appearing and somnolent Head: Present atraumatic and normocephalic ENT: Present normal exam Respiratory: Present normal respiratory effort; Absent rhonchi, wheezes or crackles Cardiac: Present Reg Rate and Rhythm GI: Present soft, distention and normal bowel sounds; Absent tenderness Extremities: Present full ROM and edema (Trace lower extremity edema) Comment:: 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 Sutures and salty still in place. Left foot with bandage in place Skin: Present wounds; Absent erythema Neuro: Present Grossly Intact, alert, awake and moves all extremities Assessment and Plan *Assessment and plan (1) Encephalopathy: Status: Acute Qualifiers: Encephalopathy type: unspecified encephalopathy Qualified Code(s): G93.40 - Encephalopathy, unspecified Category: Medical Code(s): G93.40 - Encephalopathy, unspecified (2) Chronic systolic heart failure: Status: Acute Category: Medical Code(s): I50.22 - Chronic systolic (congestive) heart failure (3) Diabetes mellitus: Status: Acute Qualifiers: Diabetes mellitus type: type 2 Category: Medical Code(s): E11.9 - Type 2 diabetes mellitus without complications (4) History of amputation of right second toe: Status: Acute Category: Surgical Code(s): Z89.421 - Acquired absence of other right toe(s) (5) History of partial ray amputation of fifth toe of left foot: Status: Acute Category: Surgical Code(s): Z89.422 - Acquired absence of other left toe(s) (6) Hypertension: Status: Acute Qualifiers: Hypertension type: unspecified Qualified Code(s): I10 - Essential (primary) hypertension Category: Medical Code(s): I10 - Essential (primary) hypertension (7) Class 1 obesity: Status: Acute Category: Medical Code(s): E66.811 - Obesity, class 1 (8) Peripheral arterial disease: Status: Acute Category: Medical Code(s): I73.9 - Peripheral vascular disease, unspecified (9) Polypharmacy: Status: Acute Category: Medical Code(s): Z79.899 - 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 [facility], wound care, antibiotics. Developed worsening confusion. Strong concern for polypharmacy. Resume some of her home regimen of medications. Showing some increased confusion this morning. Will make further adjustments. Continues to require inpatient management while we adjust medications for side effects and confusion. Problems addressed as follows: #Encephalopathy, toxic -Myoclonus resolved. Slight confusion today. Presumed several of her home medications. Will discontinue amitriptyline given confusion this morning after sleeping and taking that last night. - On multiple medications that could account for her altered mental status including amitriptyline, bupropion, citalopram, gabapentin, hydrocodone, pramipexole - Will cautiously resume medications. Out of concern for causing opiate withdrawal or withdrawal from gabapentin - Continue gabapentin 200 mg 3 times a day, hydrocodone 5/325 1 tablet every 6 hours as needed for severe pain - Resume citalopram 20 mg daily, bupropion 150 mg twice daily - Holding pramipexole due to concern/risk for akathisia #CKD stage III Kidney function at baseline with BUN 28, creatinine 1.3. Potassium 4.0. Magnesium 2.0. - Repeat CBC, CMP, magnesium ordered for #Combined chronic systolic and diastolic heart failure proBNP of 16,000 which is half of prior greater than 30,[address] without evidence of overload Prior echocardiogram with EF of 40% with grade 2 diastolic dysfunction Monitor respiratory status #Osteoarthritis of right foot #Osteoarthritis of left foot 10/23/24 s/p Right 2nd toe amputation, Right 5th metatarsal partial resection, open bone biopsy, Left 5th partial metatarsal amputation/resection, Bilateral foot wound wide excisional debridement with ulcer excision. Micro data as follows 10/23/24, Intraop Specimens: Micro: Right 2nd toe culture: MSSA, MRSA Right 5th metatarsal ulcer TCx: Klebsiella pneumoniae Left 5th metatarsal BCx: MSSA Left 5th metatarsal ulcer TCx: MRSA Path: Right 2nd toe: Benign bone and bone marrow with degenerative change and fat necrosis, no additional abnormalities identified. Right 5th metatarsal bone: Benign bone and bone marrow with degenerative change and fat necrosis, no additional abnormalities identified. Left 5th metatarsal bone: Benign bone and bone marrow with degenerative change and fat necrosis, no additional abnormalities identified. - Continue daptomycin 1 g IV daily and ceftriaxone 2 g daily - Plan for antibiotics through 12/01/2024 #DM2 with hypoglycemia On prior hospitalization, persistent hypoglycemia. A1c of 5.3. At this juncture, will hold insulin usage at this time given profound hypoglycemia even with long-acting insulin reduced. Blood sugar currently 187 this morning - Fingersticks ACHS #Chronic opioid use: discharged out of the hospital on [place] 10mg. Reduce to 5 mg every 6 hours as needed as opposed to scheduled. Monitoring for withdrawal symptoms and toxicity #Hypothyroidism: continue levothyroxine 200 mcg. History of noncompliance. TSH 14 on admission, improved from 21 last admit Full code Regular diet Heparin 5000 units SQ 3 times daily
[2024-11-04 17:02] LABS: POC Glucose,Bedside 159 (70-110)
--- NOTE | 2024-11-04 18:02 | CT_ITS ---
PROCEDURE INFORMATION: Exam: CT Head Without Contrast Exam date and time: 11/04/2024 6:16 PM Age: 64 years old Clinical indication: Injury or trauma; Fall; Blunt trauma (contusions or hematomas); Additional info: Fall, hematoma TECHNIQUE: Imaging protocol: Computed tomography of the head without contrast. Radiation optimization: All CT scans at this facility use at least one of these dose optimization techniques: automated exposure control; mA and/or kV adjustment per patient size (includes targeted exams where dose is matched to clinical indication); or iterative reconstruction. COMPARISON: CT ANGIO HEAD 11/02/2024 4:24 PM FINDINGS: Brain: [id number] atrophy. No intracranial hemorrhage. No mass. Few scattered foci of decreased attenuation within periventricular/subcortical white matter. No edema. Cerebral ventricles: No hydrocephalus. Paranasal sinuses: No acute sinusitis. Mastoid air cells: No significant effusion. Orbital cavities: Unremarkable as visualized. Bones: No acute fracture. Soft tissues: Posterior scalp swelling. Vasculature: Atherosclerotic disease of intracranial arteries. IMPRESSION: 1. No intracranial hemorrhage. 2. Probable chronic microvascular ischemic changes.
--- NOTE | 2024-11-04 18:52 | PC.NURSE ---
at 1745 RN and SRNA responded to a scream for help in pt room. pt was found lying on the floor holding head. assisted pt to a sitting position, MD and other staff at bedside. BP 141/106, HR 97, O2 99 RA, RR18. hematoma to head, left hip noted, pictures in chart. right arm bruise also in chart. patient also found to have a scant amount of blood to lower lip. assisted pt back into bed. CT scan ordered. pt did not appear in distress and was in good spirits. 1:[address], bed alarm on, call light within reach.
[2024-11-04] MEDS: LISINOPRIL 20MG TABLET 40 MG PO (20:36)
[2024-11-04] MEDS: PANTOPRAZOLE 40MG TABLET 40 MG PO (20:36)
[2024-11-04] MEDS: ATORVASTATIN 40MG TABLET 40 MG PO (20:36)
[2024-11-04 20:58] LABS: POC Glucose,Bedside 256 (70-110)
[2024-11-04] MEDS: humaLOG 100 UNITS/ML 10ML VIAL (SSI) 4 UNIT SUBCUT (21:44)
[2024-11-04] MEDS: 0.9 % SODIUM CHLORIDE 1000ML 1,000 ML 50 ML IV (21:49)
--- NOTE | 2024-11-04 22:45 | PC.NURSE ---
Pt catheter discontinued at this time. Pt tolerated removal well.
[2024-11-05] VITALS (10 sets, daily range): BP systolic 112–144; BP diastolic 58–82; PULSE 82–92; RESP 16–20; TEMP 36.4–37; O2SAT 93–99; BMI 27.0
[2024-11-05 05:52] LABS: POC Glucose,Bedside 222 (70-110)
--- NOTE | 2024-11-05 05:54 | PC.NURSE ---
Pt remains on 1:1 observation d/t recent fall. Pt is alert to self and place and has moments of confusion. Pt glucose level @ 2100 was 256, this nurse contacted Mark Dillon APRN, new orders for 4 units of short acting insulin. Pt glucose @ 0600 is 222. Pt dressing to left foot is clean and dry. Pt has c/o pain in both feet this shift and was treated per AUG.
[2024-11-05 06:53] LABS: Basophils % 0.4 % (0.1-2.0); Eosinophils # 0.3 Kmm3 (0.0-0.4); Eosinophils % 4.3 % (0.1-12.0); Hematocrit 26.2 % (37.0-47.0); Immature Granulocytes # 0.05 10^3uL; Immature Granulocytes % 0.6 %; Lymphocytes % 24.7 % (10-50); Mean Corpuscular HGB Conc 30.5 g/dL (31.8-35.4); Mean Corpuscular Hemoglobin 27.9 pg (27.0-31.2); Mean Corpuscular Volume 91.3 fl (81-99); Mean Platelet Volume 8.8 fl (7.4-10.4); Monocytes # 0.6 K/mm3 (0.1-1.0); Monocytes % 7.3 % (1.7-9.3); Neutrophils % 62.7 % (37.0-80.0); Nucleated Red Blood Cells # 0 10^3/uL; Nucleated Red Blood Cells % 0 %; Platelet Count 242 K/mm3 (142-424); Red Blood Count 2.87 M/mm3 (4.20-5.40); Red Cell Distribution Width 17.1 % (11.5-17.5); Red Cell Distribution Width-SD 57.1 fL; White Blood Count 7.9 K/mm3 (4.8-10.8)
[2024-11-05 07:05] LABS: Alanine Aminotransferase 18 U/L (12-78); Albumin Level 3.5 g/dl (3.5-5.0); Alkaline Phosphatase 121 U/L (38-126); Anion Gap 10.2 mEq/L (5-15); Aspartate Amino Transferase 35 U/L (14-36); Bilirubin,Total 0.3 mg/dl (0.2-1.3); Blood Urea Nitrogen 25 mg/dl (7-17); Calcium 9.2 mg/dl (8.4-10.2); Carbon Dioxide 30 mmol/L (22.0-30.0); Chloride 99 mmol/L (98-107); Creatinine Clearance Estimated 64 mL/min (50-200); Estimated Glomerular Filt Rate 56 ml/min (>60); GFR (African American) 68 ML/MIN (>60); Globulin 3.4 g/dL (1.3-3.2); Glucose 161 mg/dl (74-100); Potassium 4.2 mmoL/L (3.5-5.1); Sodium 135 mmol/L (136-145); Total Protein,Serum 6.9 g/dl (6.3-8.2)
--- NOTE | 2024-11-05 07:59 | EXP.DC.SUM ---
General Admission date:: 11/02/24 Discharge date: 11/05/24 HPI HPI HPI: This is a 64-year-old female with past medical history of iron deficiency anemia, T2DM with recurrent hypoglycemia, chronic systolic heart failure, hypertension, hyperlipidemia, PAD and osteoarthritis with recent amputation and cellulitis who presents emergency department from her rehab center for altered mental status. On prior hospitalization patient had multiple episodes of hypoglycemia with altered mental status. She also was found to have likely self-induced over narcotic usage from using home Lortab. She presents today with myoclonus and altered mental status. Daughter at bedside provides collateral states that she walked into visit her mother today at the rehab and she was half on and half off the bed, altered. Daughter reports that her feet have been looking okay and have not appeared infected. Had follow-up with Dr. Jones's office on the and was mildly confused but better orientation than she has today. She has been on daptomycin and Rocephin for MSSA/MRSA and Klebsiella of the bone/tissue of her foot. Emergency department workup reassuring. Mildly elevated creatinine above baseline. Today is 1.5. ESR of 118. White blood cell count normal at 8. UDS positive for opiates. COVID and flu negative. Given her profound myoclonus and encephalopathy, she will be admitted to the hospitalist service. Exam Data for Last 24 hours Vital signs and Labs for Last 24 Hours: Temp Pulse Resp BP Pulse Ox O2 Del Method 98.0 F 92 H 18 138/75 99 Room Air 11/05/24 07:42 11/05/24 07:42 11/05/24 07:42 11/05/24 07:42 11/05/24 07:42 11/05/24 07:42 Laboratory Results - last 24 hr 11/04/24 07:30: WBC 6.8, RBC 2.97 L, Hgb 8.5 L, Hct 27.0 L, MCV 90.9, MCH 28.6, MCHC 31.5 L, RDW 17.3, Plt Count 232, MPV 8.6, Neut % (Auto) 62.2, Lymph % (Auto) 24.4, [place] % (Auto) 8.7, Eos % (Auto) 4.0, Baso % (Auto) 0.3, Neut # (Auto) 4.2, Lymph # (Auto) 1.7, [place] # (Auto) 0.6, Eos # (Auto) 0.3, Baso # (Auto) 0.0, ESR 86 H, Sodium 133 L, Potassium 4.0, Chloride 99, Carbon Dioxide 29, Anion Gap 9.0, BUN 28 H, Creatinine 1.30 H, Estimated Creat Clear 51, Estimated GFR 42 L, Est GFR ( Amer) 50 L, Glucose 187 H, Calcium 9.2, Magnesium 2.0, Total Bilirubin 0.3, AST 40 H, ALT 17, Alkaline Phosphatase 127 H, C-Reactive Protein 46.4 H, Total Protein 6.9, Albumin 3.6, Globulin 3.3 H, Albumin/Globulin Ratio 1.1 11/04/24 11:05: POC Glucose 227 H 11/04/24 16:55: POC Glucose 159 H 11/04/24 20:34: POC Glucose 256 H 11/05/24 05:19: WBC 7.9, RBC 2.87 L, Hgb 8.0 L, Hct 26.2 L, MCV 91.3, MCH 27.9, MCHC 30.5 L, RDW 17.1, Plt Count 242, MPV 8.8, Neut % (Auto) 62.7, Lymph % (Auto) 24.7, [place] % (Auto) 7.3, Eos % (Auto) 4.3, Baso % (Auto) 0.4, Neut # (Auto) 5.0, Lymph # (Auto) 2.0, [place] # (Auto) 0.6, Eos # (Auto) 0.3, Baso # (Auto) 0.0, Sodium 135 L, Potassium 4.2, Chloride 99, Carbon Dioxide 30, Anion Gap 10.2, BUN 25 H, Creatinine 1.00 D, Estimated Creat Clear 64, Estimated GFR 56 L, Est GFR ( Amer) 68 D, Glucose 161 H, Calcium 9.2, Total Bilirubin 0.3, AST 35, ALT 18, Alkaline Phosphatase 121, Total Protein 6.9, Albumin 3.5, Globulin 3.4 H, Albumin/Globulin Ratio 1.0 L 11/05/24 05:33: POC Glucose 222 H I & O for Last 24 hours: Intake & Output 11/02/24 11/03/24 11/04/24 11/05/24 23:59 23:59 23:59 23:59 Intake Total 1398 / 1648 950 / 1560 1090 / 1090 Output Total 400 / 550 1925 / 2225 2300 / 2300 Balance -400 / -352 -527 / -577 -1350 / -740 1090 / 1090 Weight 78.018 kg 71.804 kg 71.804 kg 69.173 kg Microbiology Reports for the Last 24 Hours: Microbiology 11/02/24 15:27 Blood Blood Culture - Preliminary NO GROWTH AFTER 48 HOURS 11/02/24 15:29 Blood Blood Culture - Preliminary NO GROWTH AFTER 48 HOURS 11/02/24 17:15 Urine,Catheterized Urine Culture - Final No growth. Results Data Completed and Pending Labs on day of discharge: Labs from last 24 hours 11/05/24 11/05/24 11/04/24 05:33 05:19 20:34 WBC 7.9 RBC 2.87 L Hgb 8.0 L Hct 26.2 L MCV 91.3 MCH 27.9 MCHC 30.5 L RDW 17.1 Plt Count 242 MPV 8.8 Neut % (Auto) 62.7 Lymph % (Auto) 24.7 [place] % (Auto) 7.3 Eos % (Auto) 4.3 Baso % (Auto) 0.4 Neut # (Auto) 5.0 Lymph # (Auto) 2.0 [place] # (Auto) 0.6 Eos # (Auto) 0.3 Baso # (Auto) 0.0 ESR Sodium 135 L Potassium 4.2 Chloride 99 Carbon Dioxide 30 Anion Gap 10.2 BUN 25 H Creatinine 1.00 D Estimated Creat Clear 64 Estimated GFR 56 L Est GFR ( Amer) 68 D Glucose 161 H POC Glucose 222 H 256 H Calcium 9.2 Magnesium Total Bilirubin 0.3 AST 35 ALT 18 Alkaline Phosphatase 121 C-Reactive Protein Total Protein 6.9 Albumin 3.5 Globulin 3.4 H Albumin/Globulin Ratio 1.0 L 11/04/24 11/04/24 11/04/24 16:55 11:05 07:30 WBC 6.8 RBC 2.97 L Hgb 8.5 L Hct 27.0 L MCV 90.9 MCH 28.6 MCHC 31.5 L RDW 17.3 Plt Count 232 MPV 8.6 Neut % (Auto) 62.2 Lymph % (Auto) 24.4 [place] % (Auto) 8.7 Eos % (Auto) 4.0 Baso % (Auto) 0.3 Neut # (Auto) 4.2 Lymph # (Auto) 1.7 [place] # (Auto) 0.6 Eos # (Auto) 0.3 Baso # (Auto) 0.0 ESR 86 H Sodium 133 L Potassium 4.0 Chloride 99 Carbon Dioxide 29 Anion Gap 9.0 BUN 28 H Creatinine 1.30 H Estimated Creat Clear 51 Estimated GFR 42 L Est GFR ( Amer) 50 L Glucose 187 H POC Glucose 159 H 227 H Calcium 9.2 Magnesium 2.0 Total Bilirubin 0.3 AST 40 H ALT 17 Alkaline Phosphatase 127 H C-Reactive Protein 46.4 H Total Protein 6.9 Albumin 3.6 Globulin 3.3 H Albumin/Globulin Ratio 1.1 Preliminary micro results at discharge 11/02/24 15:27 Blood Culture - Preliminary Blood NO GROWTH AFTER 48 HOURS 11/02/24 15:29 Blood Culture - Preliminary Blood NO GROWTH AFTER 48 HOURS DS: Diagnosis Discharge Diagnosis (1) Encephalopathy: Status: Acute Code(s): G93.40 - Encephalopathy, unspecified Qualifiers: Encephalopathy type: unspecified encephalopathy Qualified Code(s): G93.40 - Encephalopathy, unspecified (2) Chronic systolic heart failure: Status: Acute Code(s): I50.22 - Chronic systolic (congestive) heart failure (3) Diabetes mellitus: Status: Acute Code(s): E11.9 - Type 2 diabetes mellitus without complications Qualifiers: Diabetes mellitus type: type 2 (4) History of amputation of right second toe: Status: Acute Code(s): Z89.421 - Acquired absence of other right toe(s) (5) History of partial ray amputation of fifth toe of left foot: Status: Acute Code(s): Z89.422 - Acquired absence of other left toe(s) (6) Hypertension: Status: Acute Code(s): I10 - Essential (primary) hypertension Qualifiers: Hypertension type: unspecified Qualified Code(s): I10 - Essential (primary) hypertension (7) Class 1 obesity: Status: Acute Code(s): E66.811 - Obesity, class 1 (8) Peripheral arterial disease: Status: Acute Code(s): I73.9 - Peripheral vascular disease, unspecified (9) Polypharmacy: Status: Acute Code(s): Z79.899 - Other assisted (current) drug therapy Meds Home Medications and Allergies Home Medications ?Medication ?Instructions ?Recorded ?Confirmed ?Type bupropion HCl 150 mg tablet,12 hr 150 mg PO BID 04/14/24 11/03/24 History sustained-release spironolactone 25 mg tablet 25 mg PO DAILY 04/15/24 11/03/24 History sennosides 8.6 mg tablet (Senna 17.2 mg (2 x 8.6 mg) PO DAILY 30 04/24/24 11/03/24 Rx Laxative) days #60 tabs polyethylene glycol 3350 17 17 g PO DAILY 05/21/24 11/03/24 History gram/dose oral powder (Miralax) citalopram 20 mg tablet 20 mg PO DAILY #90 tabs 08/30/24 11/03/24 Rx allopurinol 100 mg tablet 100 mg PO DAILY #30 tabs 10/09/24 11/03/24 Rx carvedilol 25 mg tablet 12.5 mg (1/2 x 25 mg) PO BID #60 10/09/24 11/03/24 Rx tabs clopidogrel 75 mg tablet 75 mg PO DAILY #30 tabs 10/09/24 11/03/24 Rx lisinopril 40 mg tablet 40 mg PO HS #30 tabs 10/09/24 11/03/24 Rx pantoprazole 40 mg tablet,delayed 40 mg PO HS #90 tabs 10/09/24 11/03/24 Rx release aspirin 81 mg tablet,delayed 81 mg PO DAILY 10/20/24 11/03/24 History release (Darshana Low Dose Aspirin) ferrous sulfate 325 mg (65 mg 325 mg PO DAILY 10/20/24 11/03/24 History iron) tablet (Feosol) levothyroxine 200 mcg tablet 200 mcg PO DAILYDM 10/20/24 11/03/24 History lubiprostone 8 mcg capsule 8 mcg PO BID 10/20/24 11/03/24 History ondansetron 4 mg disintegrating 4 mg PO Q8HP PRN nausea and 10/20/24 11/03/24 History tablet vomiting cyanocobalamin (vitamin B-12) 1,000 mcg PO DAILY #30 caps 10/26/24 11/03/24 Rx 1,000 mcg capsule folic acid 1 mg tablet 1 mg PO DAILY 30 days #30 tabs 10/26/24 11/03/24 Rx atorvastatin 40 mg tablet 40 mg PO HS 11/03/24 11/03/24 History daptomycin 1,000 mg/100 mL in 0.9 1,000 mg IV DAILY 11/03/24 11/03/24 History % sodium chlor intravenous piggyback hydrocodone 10 mg-acetaminophen 1 tab PO Q6HP PRN Severe Pain 11/03/24 11/03/24 History 325 mg tablet (Scale Score 7-10) ceftriaxone 2 gram intravenous 2 g IV Q24H #0 ea 11/05/24 Rx solution furosemide 80 mg tablet 80 mg PO DAILY 30 days #0 tabs 11/05/24 11/03/24 Rx gabapentin 400 mg tablet 200 mg (1/2 x 400 mg) PO TID 30 11/05/24 Rx days #45 tabs hydrocodone 5 mg-acetaminophen 325 1 tab PO Q6HP PRN Severe Pain 11/05/24 Rx mg tablet (7-10) 30 days #120 tabs New Prescriptions to Start Prescriptions: Noe Heard hydrocodone-acetaminophen Neo Pierre Allergies Allergy/AdvReac Type Severity Reaction Status Date / Time canagliflozin (From [facility]) Allergy Severe kidney Verified 11/01/24 11:36 issues Discharge Plan Disposition Patient Disposition: er SNF Condition: Fair Follow up Plan Follow up with: Daniella Finnegan DPM [Staff Physician] - Enter time for follow up Prescriptions/Medication Reconciliation: New ceftriaxone 2 gram Recon Soln 2 g IV Q24H Qty: 0 0RF hydrocodone-acetaminophen 5-325 mg Tablet 1 tab PO Q6HP PRN (Reason: Severe Pain (7-10)) 30 Days Qty: 120 0RF Continued polyethylene glycol 3350 [Miralax] 17 gram/dose powder 17 g PO DAILY sennosides [Senna Laxative] 8.6 mg tablet 17.2 mg PO DAILY 30 Days Qty: 60 3RF citalopram 20 mg tablet 20 mg PO DAILY Qty: 90 3RF lisinopril 40 mg tablet 40 mg PO HS Qty: 30 3RF pantoprazole 40 mg tablet,delayed release (DR/EC) 40 mg PO HS Qty: 90 3RF carvedilol 25 mg tablet 12.5 mg PO BID Qty: 60 3RF allopurinol 100 mg tablet 100 mg PO DAILY Qty: 30 3RF clopidogrel 75 mg tablet 75 mg PO DAILY Qty: 30 3RF lubiprostone 8 mcg capsule 8 mcg PO BID Patient Comments: 1 CAPSULE WITH FOOD AND WATER ORALLY TWICE A DAY 30 DAYS aspirin [Darshana Low Dose Aspirin] 81 mg tablet,delayed release (DR/EC) 81 mg PO DAILY ferrous sulfate [Feosol] 325 mg (65 mg iron) tablet 325 mg PO DAILY levothyroxine 200 mcg tablet 200 mcg PO DAILYDM ondansetron 4 mg tablet,disintegrating 4 mg PO Q8HP PRN (Reason: nausea and vomiting) folic acid 1 mg Tablet 1 mg PO DAILY 30 Days Qty: 30 0RF cyanocobalamin (vitamin B-12) 1,000 mcg capsule 1,000 mcg PO DAILY Qty: 30 0RF bupropion HCl 150 mg tablet sustained-release 12 hr 150 mg PO BID spironolactone 25 mg tablet 25 mg PO DAILY Patient Comments: TAKE 1 TABLET BY MOUTH EVERY DAY atorvastatin 40 mg Tablet 40 mg PO HS daptomycin in 0.9 % sod chlor 1,000 mg/100 mL Piggyback 1,000 mg IV DAILY Rx Instructions: STARTED 10/27/24 THROUGH 12/01/24 FOR OSTEOMYELITIS hydrocodone-acetaminophen 10-325 mg tablet 1 tab PO Q6HP PRN (Reason: Severe Pain (Scale Score 7-10)) Patient Comments: TAKE 1 TABLET BY MOUTH EVERY 6 HOURS Changed furosemide 80 mg tablet 80 mg PO DAILY 30 Days Qty: 0 0RF gabapentin 400 mg Tablet 200 mg PO TID 30 Days Qty: 45 0RF Discontinued amitriptyline 50 mg tablet 50 mg PO HS pramipexole 0.5 mg tablet 0.5 mg PO DAILY cefepime 1 gram Piggyback 1 g IV HS Rx Instructions: STARTED 11/02/24 THROUGH 11/30/24 FOR OSTEOMYELITIS Problem Reconciliation Problems Reviewed?: Yes Patient Discharge Instructions ACTIVITY: Continue current activity DIET: continue same diet Patient Instructions: DI for Heart Failure, DI for Encephalopathy, Catheter-Associated Urinary Tract Infection, Stop Light Heart Failure, Stop Light Infection Print Language: Lithuanian Providers Primary Care Provider: José Miguel Isabel Provider: Neo Pierre Attending Provider: Neo Pierre
[2024-11-05 08:02] LABS: Magnesium 1.9 mg/dl (1.6-2.3)
--- NOTE | 2024-11-05 08:14 | SW/DCPLANNER ---
Addendum entered by Laila Chauhan 11/06/24 09:22: Per Lety patient is approved SNF level of care. Addendum entered by Laila Chauhan 11/05/24 13:39: Per Lety an auth is required prior to returning. Lety confirmed that auth was started this AM. I will continue to follow up. Original Note: Patient currently resides at [facility] level of care. Updated patient information has been faxed to Lety jones/ [facility] this AM. Per patient is medically stable for discharge today. I am waiting to hear back from [facility] regarding if new auth is required prior to patient returning. I will continue to follow up.
[2024-11-05] MEDS: ASPIRIN EC 81MG TABLET 81 MG PO (09:05)
[2024-11-05] MEDS: CARVEDILOL 12.5MG TABLET 12.5 MG PO ×2 (09:05→20:52)
[2024-11-05] MEDS: buPROPion HCl SR 150MG TAB 150 MG PO ×2 (09:05→20:52)
[2024-11-05] MEDS: CITALOPRAM 20MG TABLET 20 MG PO (09:05)
[2024-11-05] MEDS: FUROSEMIDE 80 MG TABLET PO (09:06)
[2024-11-05] MEDS: SPIRONOLACTONE 25MG TABLET 25 MG PO (09:06)
[2024-11-05] MEDS: FOLIC ACID 1MG TABLET 1 MG PO (09:07)
[2024-11-05] MEDS: SENNA 8.6MG TABLET 17.2 MG PO (09:07)
[2024-11-05] MEDS: ALLOPURINOL 100MG TABLET 100 MG PO (09:07)
[2024-11-05] MEDS: CLOPIDOGREL 75MG TAB 75 MG PO (09:07)
[2024-11-05] MEDS: LEVOTHYROXINE 100MCG (0.1MG) TAB 200 MCG PO (09:07)
[2024-11-05] MEDS: HEPARIN SODIUM 5,000 UNIT/ML VIAL 5000 UNIT SUBCUT ×3 (09:08→20:52)
[2024-11-05] MEDS: GABAPENTIN 100MG CAPSULE 200 MG PO ×3 (09:09→20:52)
[2024-11-05] MEDS: HYDROCODONE/APAP 5/325 MG TABLET 1 TAB PO (09:12)
--- NOTE | 2024-11-05 09:43 | P.PN_ITS ---
Subjective *Date: 11/05/24 *Time: 10:00 Interval history: 64-year old female Podiatry Patient, seen today while inpatient in lieu of her office visit that is scheduled for tomorrow 11/06/24. Patient is doing much better today than when we saw her last in the office last week. Oriented and speech is clear and understandable. Patient will been seen in our office on her next scheduled appointment 11/13/2024 at 1130. Ortho Exam (Inpt) Vital signs and Labs for Last 24 Hours: Temp Pulse Resp BP Pulse Ox O2 Del Method 98.0 F 92 H 18 138/75 99 Room Air 11/05/24 07:42 11/05/24 07:42 11/05/24 07:42 11/05/24 07:42 11/05/24 07:42 11/05/24 07:42 Laboratory Results - last 24 hr 11/04/24 11:05: POC Glucose 227 H 11/04/24 16:55: POC Glucose 159 H 11/04/24 20:34: POC Glucose 256 H 11/05/24 05:19: WBC 7.9, RBC 2.87 L, Hgb 8.0 L, Hct 26.2 L, MCV 91.3, MCH 27.9, MCHC 30.5 L, RDW 17.1, Plt Count 242, MPV 8.8, Neut % (Auto) 62.7, Lymph % (Auto) 24.7, [place] % (Auto) 7.3, Eos % (Auto) 4.3, Baso % (Auto) 0.4, Neut # (Auto) 5.0, Lymph # (Auto) 2.0, [place] # (Auto) 0.6, Eos # (Auto) 0.3, Baso # (Auto) 0.0, Sodium 135 L, Potassium 4.2, Chloride 99, Carbon Dioxide 30, Anion Gap 10.2, BUN 25 H, Creatinine 1.00 D, Estimated Creat Clear 64, Estimated GFR 56 L, Est GFR ( Amer) 68 D, Glucose 161 H, Calcium 9.2, Magnesium 1.9, Total Bilirubin 0.3, AST 35, ALT 18, Alkaline Phosphatase 121, Total Protein 6.9, Albumin 3.5, Globulin 3.4 H, Albumin/Globulin Ratio 1.0 L 11/05/24 05:33: POC Glucose 222 H I & O for Labs for Last 24 Hours: Intake & Output 11/02/24 11/03/24 11/04/24 11/05/24 23:59 23:59 23:59 23:59 Intake Total 1398 / 1398 950 / 950 1090 / 1090 Output Total 400 / 400 1925 / 1925 2300 / 2300 Balance -400 / -400 -527 / -527 -1350 / -1350 1090 / 1090 Weight 172 lb 158 lb 4.8 oz 158 lb 4.811 oz 152 lb 8 oz Microbiology Reports for the Last 24 Hours: Microbiology 11/02/24 15:27 Blood Blood Culture - Preliminary NO GROWTH AFTER 48 HOURS 11/02/24 15:29 Blood Blood Culture - Preliminary NO GROWTH AFTER 48 HOURS 11/02/24 17:15 Urine,Catheterized Urine Culture - Final No growth. Constitutional: Present no acute distress and cooperative Head: Present normocephalic Eyes: Present as per HPI Neck: Present trachea midline Respiratory: Present normal respiratory effort Cardiac: Present pedal pulses present; Absent posterior tibial pulses present Comment:: S/P runoff 10/23/24; her right DP is palpable, her left DP was weakly palpable. Rectal (female): Present deferred (female): Present deferred Extremities: Present edema (b/l feet haved improved with less swelling. ) Skin: Present erythema (improving), dry, lesions and wounds Comment:: S/P Right 2nd toe amputation, Right 5th metatarsal partial resection, open bone biopsy, Left 5th partial metatarsal amputation/resection, Bilateral foot wound wide excisional debridement with ulcer excision. -11/05/24- site are stable, no acute drainage. - Sites cleaned with Betadine then Xeroform, Betadine soaked gauze, Kerlix and Willie wrap dressings. Neuro: Present awake, oriented x 3 and moves all extremities Ankle: bilateral: swelling and bilateral: decreased ROM Feet/Toes: bilateral: amputation (RH amp, new R2nd amp, Left 5th partial metatarsal amputation/resection,), bilateral: bunion, bilateral: hammer toe, bilateral: nail abnormalities, bilateral: swelling (R 2nd toe amp, Left 5th partial metatarsal amputation/resection), bilateral: tenderness, bilateral: wound (B/L foot DFU; R2nd ampl L5th partial met amp.) and bilateral: decreased ROM Assessment and Plan *Assessment and plan (1) Osteoarthritis of toe: Status: Resolved Category: Medical Code(s): M19.079 - Primary osteoarthritis, unspecified ankle and foot (2) Cellulitis of foot: Status: Resolved Category: Medical Code(s): L03.119 - Cellulitis of unspecified part of limb (3) T2DM (type 2 diabetes mellitus): Status: Acute Qualifiers: Diabetes mellitus complication detail: with neuropathic arthropathy Diabetes mellitus complication status: with diabetic arthropathy Diabetes mellitus intermediate insulin use: with termite control representative use Qualified Code(s): E11.610 - Type 2 diabetes mellitus with diabetic neuropathic arthropathy; Z79.4 - terminal manager (current) use of insulin Category: Medical Code(s): E11.9 - Type 2 diabetes mellitus without complications (4) Edema of both lower extremities: Status: Resolved Category: Medical Code(s): R60.0 - Localized edema (5) Foot ulcer, left: Status: Acute Qualifiers: Non-pressure ulcer stage: with muscle involvement without evidence of necrosis Qualified Code(s): L97.525 - Non-pressure chronic ulcer of other part of left foot with muscle involvement without evidence of necrosis Category: Medical Code(s): L97.529 - Non-pressure chronic ulcer of other part of left foot with unspecified severity (6) Peripheral arterial disease: Status: Acute Category: Medical Code(s): I73.9 - Peripheral vascular disease, unspecified (7) CAD (coronary atherosclerotic disease): Status: Acute Qualifiers: Associated angina: with other forms of angina Coronary Disease- Associated Artery/Lesion type: [place] artery [place] vs. transplanted heart: [place] heart Qualified Code(s): I25.118 - Atherosclerotic heart disease of [place] coronary artery with other forms of angina pectoris Category: Medical Code(s): I25.10 - Atherosclerotic heart disease of [place] coronary artery without angina pectoris (8) Tobacco dependence syndrome: Status: Acute Category: Medical Code(s): F17.200 - Nicotine dependence, unspecified, uncomplicated (9) Charcot foot due to diabetes mellitus: Status: Chronic Category: Medical Code(s): E11.610 - Type 2 diabetes mellitus with diabetic neuropathic arthropathy (10) Neuropathy: Status: Acute Category: Medical Code(s): G62.9 - Polyneuropathy, unspecified (11) Presence of retained hardware: Status: Resolved Category: Medical Code(s): Z96.9 - Presence of functional implant, unspecified (12) Ulcer of second toe of right foot: Status: Acute Qualifiers: Non-pressure ulcer stage: with necrosis of bone Qualified Code(s): L97.514 - Non-pressure chronic ulcer of other part of right foot with necrosis of bone Category: Medical Code(s): L97.519 - Non-pressure chronic ulcer of other part of right foot with unspecified severity (13) Decreased pedal pulses: Status: Resolved Category: Medical Code(s): R09.89 - Other specified symptoms and signs involving the circulatory and respi ratory systems (14) 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: Status: Acute Qualifiers: Fracture alignment: nondisplaced Fracture type: closed Qualified Code(s): S92.355K - Nondisplaced fracture of fifth metatarsal bone, left foot, subsequent encounter for fracture with nonunion Category: Medical Code(s): S92.352K - Displaced fracture of fifth metatarsal bone, left foot, subsequent encounter for fracture with nonunion (15) History of partial ray amputation of fifth toe of left foot: Status: Acute Category: Surgical Code(s): Z89.422 - Acquired absence of other left toe(s) (16) History of amputation of right second toe: Status: Acute Category: Surgical Code(s): Z89.421 - Acquired absence of other right toe(s) Plan 11/05/24 POD#13 Sx. 10/23/24 S/P Right 2nd toe amputation, Right 5th metatarsal partial resection, open bone biopsy, Left 5th partial metatarsal amputation/resection, Bilateral foot wound wide excisional debridement with ulcer excision. Plan: -Reviewed labs: 11/05/24, WBC 7.9 hemoglobin 8.0 hematocrit 26.2, glucose 161 -Patient may likely be discharged later today back to [facility] -Discussed with patient to continue to use walker as this is safer than the cane due to her recent fall -PWB to heels in post op shoe to left, right has a fracture boot, walker -Dressing change this morning: Xeroform, Betadine soaked 4x4, dry 4x4, kerlix and willie wrap -10/23/24, Intraop Specimens: Micro: Right 2nd toe culture: MSSA, MRSA Right 5th metatarsal ulcer TCx: Klebsiella pneumoniae Left 5th metatarsal BCx: MSSA Left 5th metatarsal ulcer TCx: MRSA Path: Right 2nd toe: Benign bone and bone marrow with degenerative change and fat necrosis, no additional abnormalities identified. Right 5th metatarsal bone: Benign bone and bone marrow with degenerative change and fat necrosis, no additional abnormalities identified. Left 5th metatarsal bone: Benign bone and bone marrow with degenerative change and fat necrosis, no additional abnormalities identified. -Per hospitalist recommendation continue daptomycin 1 g IV daily and ceftriaxone 2 g daily - Plan for antibiotics through 12/01/2024 -Patient will will follow-up in podiatry office on next scheduled appointment 11/13/2024 at 1130 -All orders per Dr. Finnegan
--- NOTE | 2024-11-05 10:36 | PC.NURSE ---
Pt is A&O to self, place and time with some brief memory lapses this AM, such as where she came from. Pt is pleasant and conversing well with staff. OT/PT worked with pt this AM. She is non weight bearing to both legs. Pt is aware and agreeable to go back for rehab. Appetite is good. No concerns at this time. VSS. Call light within reach. Safety measures in place.
[2024-11-05] MEDS: CEFTRIAXONE SODIUM 2 GM in 0.9 % SODIUM CHLORIDE 100 ML IV (11:10)
[2024-11-05 11:27] LABS: POC Glucose,Bedside 324 (70-110)
[2024-11-05] MEDS: DAPTOmycin 500 MG in 0.9 % SODIUM CHLORIDE 50 ML 100 MG IV (11:58)
[2024-11-05] MEDS: 0.9 % SODIUM CHLORIDE 1000ML 1,000 ML 50 ML IV (12:02)
[2024-11-05] MEDS: INSULIN GLARGINE 100 UNITS/ML 3ML FLEXPEN 10 UNIT SUBCUT (12:09)
--- NOTE | 2024-11-05 12:37 | HMH.OTEV ---
OT Inpatient Evaluation Rehab OT IP Evaluation Start: 11/02/24 21:13 Freq: ONCE Status: Active Protocol: Document 11/05/24 12:23 MAYITO (Rec: 11/05/24 12:37 MAYITO [id number]) Rehab OT IP Assessment Subjective History Pt. is a 64 year old female who presents to [facility] Inpatient for c/o altered mental status . Pt. states she was at home prior to admittance to [facility], however, E.R. Physician documentation stated pt. was at [facility] prior to [facility] admittance. Pt. vocalizes being in and out of hospitals for the past 3 months secondary to surgeries. E.R Physician documentation stated pt. was receiving rehabilitation at [facility] and was doing better. Pt. was able to vocalize home environment situation, states living w/ her grandson who is 14 yoa, however, grandson currently goes to school and doesn't come home until the evening. Pt. reports she uses her walker for longer distances in her home environment. Medical hx includes type 2 diabetes, hypertension, hyperlipidemia, CAD, peripheral vascular disease, tobacco dependence, Charcot foot, prior history of osteomyelitis. Subjective Pt was sitting in bed when therapy arrived. Pt was orient x3. Nursing was present for initial eval. pt reported jaqueline lived with grandtutu and had a ramp to get into home. pt reported they have a walk in shower, no shower chair. pt reports she has a walked and uses it. pt reported they were ind in ADLs prior to hospitalization. pt reported they were able to drive self prior and were able to complete IADLs ind. came and and went over POC for pt to which he reported he wanted pt to go back to [facility]. OT, PT and nursing tried to question pt into where they came from prior to current hospitalization and pt could not give accurate answers. Pt agreed to sit on EOB. Pt was SBA to move from supine to sitting on EOB and demo good static sitting balance with SBA for aprox 1 minute. Pt then SBA in EOB to supine. pt left with nursing, call light, and all other needs within reach. Pt is on one-to-one care with direct supervision at this time. Objective Patient Orientation Person,Place,Day of Month Right Upper Extremity Gross ROM WFL Left Upper Extremity Gross ROM WFL Bed Mobility bed mobility-scooting,bed mobility - supine/sit Assist Level Supervision/Stand by Decrease in Endurance Yes Rehab OT IP prob,goals,plan Problems Date of Evaluation: 11/05/24 OT IP Problems Bed Mobility,Transfers,Balance ,Self care,Safety Rehab Potential Rehab Potential Good Equipment Needs Assistive Devices Standard Walker Plan OT intervention Plan Bed Mobility,Transfers,Balance ,Self care,Safety,Therapeutic Exercise OT Plan Frequency Daily Duration LOS Discharge Goals Bed Mobility Ability Independent Sit to Stand Chair Transfer Ability Moderate x 1 (50% assist) Chair Transfer Ability Moderate x 1 (50% assist) Chair Transfer Assistive Devices Standard Walker Feeding Ability Assist with Tray Set Up Lower Body Dressing Ability Minimal Assistance Upper Body Dressing Ability Minimal Assistance Bathing Ability Minimal Assistance Performing Toilet Hygiene Ability Minimal Assistance Overall Commode/Toilet Transfer Ability Minimal Assistance Commode/Toilet Transfer Technique Stand Step Pivot Commode/Toilet Transfer Assistive Raised Toilet Seat,Toilet Devices Rails,Grab Bars Oral Care Assist Standby Assistance Decrease in Endurance No Discharge Plan OT Discharge Plan At this time, pt will be seen for skilled OT services and interventions while at [facility] for improvement in occupational performance. Pt would also benefit from skilled OT services and rehab once DC from [facility] for improvement in optimal occupational performance. Eval Complexity Eval Charge Codes 73791 - Moderate Complexity PHYSICIAN CERTIFICATION: I certify the specified therapy services for Micheline Hernandez are required, authorized, and reviewed every 30 days.
--- NOTE | 2024-11-05 15:54 | PC.NURSE ---
No acute changes this shift. Pt remains A&O to self, place and time some episodes of confusion at times. She has sat up on side of the bed. Tolerated it well. VSS. Pt remains on RA. Medications administered per mar. Call light within reach. Safety measures in place. Pt remains 1:1.
[2024-11-05 16:18] LABS: POC Glucose,Bedside 182 (70-110)
[2024-11-05] MEDS: humaLOG 100 UNITS/ML 10ML VIAL (SSI) SUBCUT ×2 (16:22→20:55)
--- NOTE | 2024-11-05 18:11 | EXP.ACUTE.PN ---
Subjective *Date: 11/05/24 *Time: 23:38 Interval history: Somewhat more interactive this morning. Knows who she is and where she is. Slow to respond but not frankly confused. Cannot remember my name. Asking for more gabapentin due to leg pain. Concern for still having some mild confusion. Discussed stopping her amitriptyline as her confusion seems to be worse in the morning. Discussed case with wound care nurse from her nursing facility. Concerned cephalosporins were a factor. Will transition antibiotics today. Tolerating p.o. intake. No more falls overnight. Stable on room air. Afebrile. Medical Exam Vital signs and Labs for Last 24 Hours: Vital Signs Temp Pulse Resp BP Pulse Ox O2 Del Method 11/05/24 17:00 Room Air 11/05/24 15:00 Room Air 11/05/24 13:00 Room Air 11/05/24 12:00 97.9 F 86 18 128/69 98 Room Air 11/05/24 11:00 Room Air 11/05/24 09:00 Room Air 11/05/24 08:00 Room Air 11/05/24 07:42 98.0 F 92 H 18 138/75 99 Room Air 11/05/24 05:00 Room Air 11/05/24 03:59 97.9 F 83 16 120/71 97 Room Air 11/05/24 03:00 Room Air 11/05/24 03:00 84 16 116/62 94 L Room Air 11/05/24 02:00 82 16 115/69 95 Room Air 11/05/24 01:00 83 16 112/58 L 96 11/05/24 00:54 Room Air 11/05/24 00:00 98.6 F 85 16 115/59 L 93 L Room Air 11/04/24 22:54 Room Air 11/04/24 22:00 88 16 116/52 L 93 L Room Air 11/04/24 21:00 Room Air 11/04/24 21:00 94 H 16 143/74 H 96 Room Air 11/04/24 20:00 Room Air 11/04/24 19:55 97.7 F 89 16 138/78 97 Room Air 11/04/24 19:30 98.3 F 88 16 143/76 H 97 Room Air 11/04/24 18:51 Room Air 11/04/24 18:20 104 H 18 133/82 98 Room Air Intake and Output 11/05/24 11/05/24 11/05/24 07:59 15:59 23:59 Intake Total 1090 / 1330 240 / 1330 Output Total 0 / 0 Balance 1090 / 1330 240 / 1330 Intake: Intake, Oral Amount 840 / 1080 240 / 1080 Intake, Total IV Amount 250 / 250 0.9 % Sodium Chloride 1000ML 1, 250 / 250 000 ml @ 50 mls/hr IV .Q20H [facility] Rx#:[id number] Output: Output, Urine Amount 0 / 0 Other: Number of Unmeasured Voids 1 Number of Bowel Movements 1 Weight 69.173 kg Patient Weight 11/05/24 23:59 Weight 69.173 kg Laboratory Results - last 24 hr 11/04/24 20:34: POC Glucose 256 H 11/05/24 05:19: WBC 7.9, RBC 2.87 L, Hgb 8.0 L, Hct 26.2 L, MCV 91.3, MCH 27.9, MCHC 30.5 L, RDW 17.1, Plt Count 242, MPV 8.8, Neut % (Auto) 62.7, Lymph % (Auto) 24.7, [place] % (Auto) 7.3, Eos % (Auto) 4.3, Baso % (Auto) 0.4, Neut # (Auto) 5.0, Lymph # (Auto) 2.0, [place] # (Auto) 0.6, Eos # (Auto) 0.3, Baso # (Auto) 0.0, Sodium 135 L, Potassium 4.2, Chloride 99, Carbon Dioxide 30, Anion Gap 10.2, BUN 25 H, Creatinine 1.00 D, Estimated Creat Clear 64, Estimated GFR 56 L, Est GFR ( Amer) 68 D, Glucose 161 H, Calcium 9.2, Magnesium 1.9, Total Bilirubin 0.3, AST 35, ALT 18, Alkaline Phosphatase 121, Total Protein 6.9, Albumin 3.5, Globulin 3.4 H, Albumin/Globulin Ratio 1.0 L 11/05/24 05:33: POC Glucose 222 H 11/05/24 11:07: POC Glucose 324 H* 11/05/24 16:11: POC Glucose 182 H I & O for Labs for Last 24 Hours: Intake & Output 11/02/24 11/03/24 11/04/24 05/19/25 23:59 23:59 23:59 23:59 Intake Total 1398 / 1648 950 / 1560 1330 / 1330 Output Total 400 / 550 1925 / 2225 2300 / 2300 0 / 0 Balance -400 / -352 -527 / -577 -1350 / -740 1330 / 1330 Weight 78.018 kg 71.804 kg 71.804 kg 69.173 kg Microbiology Reports for the Last 24 Hours: Microbiology 11/02/24 15:27 Blood Blood Culture - Preliminary NO GROWTH AFTER 48 HOURS 11/02/24 15:29 Blood Blood Culture - Preliminary NO GROWTH AFTER 48 HOURS Constitutional: Present no acute distress, average body habitus, chronically ill appearing and somnolent Head: Present normocephalic ENT: Present normal exam Comment:: Hematoma left occiput from fall yesterday, 3 cm in diameter Respiratory: Present normal respiratory effort; Absent rhonchi, wheezes or crackles Cardiac: Present Reg Rate and Rhythm GI: Present soft, distention and normal bowel sounds; Absent tenderness Extremities: Present full ROM and edema (Trace lower extremity edema) Comment:: 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 Sutures and salty still in place. Left foot with bandage in place Skin: Present wounds; Absent erythema Neuro: Present Grossly Intact, alert, awake and moves all extremities Comment:: Oriented to self and place. Able to answer questions. Slow to respond some but answers appropriate Assessment and Plan *Assessment and plan (1) Encephalopathy: Status: Acute Qualifiers: Encephalopathy type: unspecified encephalopathy Qualified Code(s): G93.40 - Encephalopathy, unspecified Category: Medical Code(s): G93.40 - Encephalopathy, unspecified (2) Chronic systolic heart failure: Status: Acute Category: Medical Code(s): I50.22 - Chronic systolic (congestive) heart failure (3) Diabetes mellitus: Status: Acute Qualifiers: Diabetes mellitus type: type 2 Category: Medical Code(s): E11.9 - Type 2 diabetes mellitus without complications (4) History of amputation of right second toe: Status: Acute Category: Surgical Code(s): Z89.421 - Acquired absence of other right toe(s) (5) History of partial ray amputation of fifth toe of left foot: Status: Acute Category: Surgical Code(s): Z89.422 - Acquired absence of other left toe(s) (6) Hypertension: Status: Acute Qualifiers: Hypertension type: unspecified Qualified Code(s): I10 - Essential (primary) hypertension Category: Medical Code(s): I10 - Essential (primary) hypertension (7) Class 1 obesity: Status: Acute Category: Medical Code(s): E66.811 - Obesity, class 1 (8) Peripheral arterial disease: Status: Acute Category: Medical Code(s): I73.9 - Peripheral vascular disease, unspecified (9) Polypharmacy: Status: Acute Category: Medical Code(s): Z79.899 - Other fci (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 At [facility] for the past week for therapy, wound care, antibiotics. Developed worsening confusion. Strong concern for polypharmacy. Resume some of her home regimen of medications. Showing some improvement today. Stable on room air. Will make further adjustments to meds. Continue inpatient management today. Anticipate discharge in the next day or 2 when prior authorization returns. Problems addressed as follows: #Encephalopathy, toxic -Myoclonus resolved. Slight confusion today. Presumed several of her home medications. Will discontinue amitriptyline given confusion this morning after sleeping and taking that last night. - On multiple medications that could account for her altered mental status including amitriptyline, bupropion, citalopram, gabapentin, hydrocodone, pramipexole - Will cautiously resume medications. Out of concern for causing opiate withdrawal or withdrawal from gabapentin - Continue gabapentin 200 mg 3 times a day, hydrocodone 5/325 1 tablet every 6 hours as needed for severe pain - Resume citalopram 20 mg daily, bupropion 150 mg twice daily - Holding pramipexole due to concern/risk for akathisia #CKD stage III Kidney function at baseline with BUN 25, creatinine 1.0. Potassium 4.2. - Repeat CBC, CMP, magnesium ordered for #Combined chronic systolic and diastolic heart failure proBNP of 16,000 which is half of prior greater than 30,[address] without evidence of overload Prior echocardiogram with EF of 40% with grade 2 diastolic dysfunction Monitor respiratory status #Osteoarthritis of right foot #Osteoarthritis of left foot 10/23/24 s/p Right 2nd toe amputation, Right 5th metatarsal partial resection, open bone biopsy, Left 5th partial metatarsal amputation/resection, Bilateral foot wound wide excisional debridement with ulcer excision. Micro data as follows 10/23/24, Intraop Specimens: Micro: Right 2nd toe culture: MSSA, MRSA Right 5th metatarsal ulcer TCx: Klebsiella pneumoniae Left 5th metatarsal BCx: MSSA Left 5th metatarsal ulcer TCx: MRSA Path: Right 2nd toe: Benign bone and bone marrow with degenerative change and fat necrosis, no additional abnormalities identified. Right 5th metatarsal bone: Benign bone and bone marrow with degenerative change and fat necrosis, no additional abnormalities identified. Left 5th metatarsal bone: Benign bone and bone marrow with degenerative change and fat necrosis, no additional abnormalities identified. - Continue daptomycin 1 g IV daily and ceftriaxone 2 g daily - Plan for antibiotics through 12/01/2024 #DM2 with hypoglycemia On prior hospitalization, persistent hypoglycemia. A1c of 5.3. At this juncture, will hold insulin usage at this time given profound hypoglycemia even with long-acting insulin reduced. Blood sugar currently 187 this morning - Fingersticks ACHS #Chronic opioid use: discharged out of the hospital on [place] 10mg. Reduced to 5 mg every 6 hours as needed as opposed to scheduled. Monitoring for withdrawal symptoms and toxicity #Hypothyroidism: continue levothyroxine 200 mcg. History of noncompliance. TSH 14 on admission, improved from 21 last admit Full code Regular diet Heparin 5000 units SQ 3 times daily
[2024-11-05] MEDS: ATORVASTATIN 40MG TABLET 40 MG PO (20:52)
[2024-11-05] MEDS: LISINOPRIL 20MG TABLET 40 MG PO (20:52)
[2024-11-05] MEDS: PANTOPRAZOLE 40MG TABLET 40 MG PO (20:52)
[2024-11-05 21:08] LABS: POC Glucose,Bedside 160 (70-110)
[2024-11-06 04:00] VITALS: BP 133/80; PULSE 91; RESP 17; TEMP 36.5; O2SAT 96; BMI 27.3
[2024-11-06 05:16] LABS: POC Glucose,Bedside 160 (70-110)
[2024-11-06] MEDS: LEVOTHYROXINE 100MCG (0.1MG) TAB 200 MCG PO (05:52)
[2024-11-06] MEDS: humaLOG 100 UNITS/ML 10ML VIAL (SSI) SUBCUT ×2 (05:52→11:54)
[2024-11-06 06:11] LABS: Basophils % 0.3 % (0.1-2.0); Eosinophils # 0.4 Kmm3 (0.0-0.4); Hemoglobin 7.8 g/dL (12.2-16.2); Immature Granulocytes # 0.04 10^3uL; Immature Granulocytes % 0.5 %; Lymphocytes # 1.9 K/mm3 (0.7-4.5); Lymphocytes % 21.3 % (10-50); Mean Corpuscular HGB Conc 31.2 g/dL (31.8-35.4); Mean Corpuscular Hemoglobin 28.4 pg (27.0-31.2); Mean Corpuscular Volume 90.9 fl (81-99); Mean Platelet Volume 8.8 fl (7.4-10.4); Monocytes # 0.6 K/mm3 (0.1-1.0); Monocytes % 6.6 % (1.7-9.3); Neutrophils # 5.9 K/mm3 (1.8-7.8); Neutrophils % 67.3 % (37.0-80.0); Nucleated Red Blood Cells # 0 10^3/uL; Nucleated Red Blood Cells % 0 %; Platelet Count 225 K/mm3 (142-424); Red Blood Count 2.75 M/mm3 (4.20-5.40); Red Cell Distribution Width-SD 56.7 fL; White Blood Count 8.8 K/mm3 (4.8-10.8)
[2024-11-06 06:22] LABS: Alanine Aminotransferase 18 U/L (12-78); Albumin Level 3.6 g/dl (3.5-5.0); Albumin/Globulin Ratio 1.1 (1.1-1.8); Alkaline Phosphatase 132 U/L (38-126); Anion Gap 11.2 mEq/L (5-15); Aspartate Amino Transferase 28 U/L (14-36); Bilirubin,Total 0.4 mg/dl (0.2-1.3); Blood Urea Nitrogen 20 mg/dl (7-17); Calcium 9.4 mg/dl (8.4-10.2); Carbon Dioxide 29 mmol/L (22.0-30.0); Chloride 99 mmol/L (98-107); Creatinine Clearance Estimated 64 mL/min (50-200); Estimated Glomerular Filt Rate 63 ml/min (>60); GFR (African American) 77 ML/MIN (>60); Globulin 3.4 g/dL (1.3-3.2); Glucose 116 mg/dl (74-100); Potassium 4.2 mmoL/L (3.5-5.1); Sodium 135 mmol/L (136-145)
[2024-11-06 06:23] LABS: Magnesium 1.6 mg/dl (1.6-2.3)
--- NOTE | 2024-11-06 07:48 | P.PN_ITS ---
Subjective *Date: 11/06/24 *Time: 07:48 Medical Exam Vital signs and Labs for Last 24 Hours: Vital Signs Temp Pulse Resp BP Pulse Ox O2 Del Method 11/06/24 06:17 Room Air 11/06/24 05:00 Room Air 11/06/24 04:00 97.7 F 91 H 17 133/80 96 Room Air 11/06/24 03:00 Room Air 11/06/24 01:00 Room Air 11/05/24 23:37 98.2 F 87 18 123/70 96 Room Air 11/05/24 23:00 Room Air 11/05/24 21:00 Room Air 11/05/24 20:00 Room Air 11/05/24 19:34 98.0 F 88 20 144/70 H 97 Room Air 11/05/24 18:27 Room Air 11/05/24 17:00 Room Air 11/05/24 16:00 97.6 F 86 20 133/82 98 Room Air 11/05/24 15:00 Room Air 11/05/24 13:00 Room Air 11/05/24 12:00 97.9 F 86 18 128/69 98 Room Air 11/05/24 11:00 Room Air 11/05/24 09:00 Room Air 11/05/24 08:00 Room Air Intake and Output 11/05/24 11/05/24 11/06/24 15:59 23:59 07:59 Intake Total 240 / 3502 2172 / 3502 Output Total 0 / 0 0 / 0 Balance 240 / 3502 2172 / 3502 Intake: Intake, Oral Amount 240 / 1560 480 / 1560 Intake, Total IV Amount 1692 / 1942 0.9 % Sodium Chloride 1000ML 1, 1542 / 1792 000 ml @ 50 mls/hr IV .Q20H MITUL Rx#:[id number] Ceftriaxone Sodium 2 gm In 0.9 100 / 100 % Sodium Chloride 100 ml @ 200 mls/hr IV Q24H MITUL Rx#:[id number] DAPTOmycin 500 mg In 0.9 % 50 / 50 Sodium Chloride 50 ml @ 100 mls /hr IV Q24H MITUL Rx#:[id number] Output: Output, Urine Amount 0 / 0 0 / 0 Other: Number of Unmeasured Voids 1 1 Number of Bowel Movements 1 Weight 69.989 kg Patient Weight 11/06/24 23:59 Weight 69.989 kg Laboratory Results - last 24 hr 11/05/24 05:19: Magnesium 1.9 11/05/24 11:07: POC Glucose 324 H* 11/05/24 16:11: POC Glucose 182 H 11/05/24 20:54: POC Glucose 160 H 11/06/24 04:57: POC Glucose 160 H 11/06/24 06:00: WBC 8.8, RBC 2.75 L, Hgb 7.8 L, Hct 25.0 L, MCV 90.9, MCH 28.4, MCHC 31.2 L, RDW 17.0, Plt Count 225, MPV 8.8, Neut % (Auto) 67.3, Lymph % (Auto) 21.3, [place] % (Auto) 6.6, Eos % (Auto) 4.0, Baso % (Auto) 0.3, Neut # (Auto) 5.9, Lymph # (Auto) 1.9, [place] # (Auto) 0.6, Eos # (Auto) 0.4, Baso # (Auto) 0.0, Sodium 135 L, Potassium 4.2, Chloride 99, Carbon Dioxide 29, Anion Gap 11.2, BUN 20 H, Creatinine 0.90, Estimated Creat Clear 64, Estimated GFR 63, Est GFR ( Amer) 77, Glucose 116 H, Calcium 9.4, Magnesium 1.6 D, Total Bilirubin 0.4, AST 28, ALT 18, Alkaline Phosphatase 132 H, Total Protein 7.0, Albumin 3.6, Globulin 3.4 H, Albumin/Globulin Ratio 1.1 I & O for Labs for Last 24 Hours: Intake & Output 11/03/24 11/04/24 11/05/24 11/06/24 23:59 23:59 23:59 23:59 Intake Total 1398 / 1648 950 / 1560 3502 / 3502 Output Total 1925 / 2225 2300 / 2300 0 / 0 Balance -527 / -577 -1350 / -740 3502 / 3502 Weight 71.804 kg 71.804 kg 69.173 kg 69.989 kg The patient's infection will respond to the chosen ABx?: Yes Is the patient receiving the right drug, dose, and route?: Yes Could a more targeted ABx be ordered?: No
[2024-11-06 08:00] VITALS: BP 150/81; PULSE 95; RESP 16; TEMP 36.8; O2SAT 98
[2024-11-06] MEDS: ALLOPURINOL 100MG TABLET 100 MG PO (08:30)
[2024-11-06] MEDS: CLOPIDOGREL 75MG TAB 75 MG PO (08:30)
[2024-11-06] MEDS: ASPIRIN EC 81MG TABLET 81 MG PO (08:30)
[2024-11-06] MEDS: CARVEDILOL 12.5MG TABLET 12.5 MG PO (08:30)
[2024-11-06] MEDS: buPROPion HCl SR 150MG TAB 150 MG PO (08:30)
[2024-11-06] MEDS: SENNA 8.6MG TABLET 17.2 MG PO (08:31)
[2024-11-06] MEDS: CITALOPRAM 20MG TABLET 20 MG PO (08:31)
[2024-11-06] MEDS: SPIRONOLACTONE 25MG TABLET 25 MG PO (08:31)
[2024-11-06] MEDS: FOLIC ACID 1MG TABLET 1 MG PO (08:31)
[2024-11-06] MEDS: FUROSEMIDE 80 MG TABLET PO (08:31)
[2024-11-06] MEDS: MAGNESIUM SULFATE IN WATER 2 GM/50 ML PIGGYBACK IV ×2 (08:32→09:37)
[2024-11-06 08:35] VITALS: O2SAT 98
[2024-11-06] MEDS: GABAPENTIN 100MG CAPSULE 200 MG PO ×2 (08:37→14:02)
[2024-11-06] MEDS: INSULIN GLARGINE 100 UNITS/ML 3ML FLEXPEN 10 UNIT SUBCUT (08:38)
[2024-11-06] MEDS: ERTAPENEM SODIUM 1 GM in 0.9 % SODIUM CHLORIDE 50 ML IV (10:46)
[2024-11-06] MEDS: DAPTOmycin 500 MG in 0.9 % SODIUM CHLORIDE 50 ML 100 MG IV (11:34)
--- NOTE | 2024-11-06 11:35 | EXP.DC.SUM ---
General Admission date:: 11/02/24 Hospital Course Hospital Course Hospital Course: Micheline Hernandez 64-year-old who was recently discharged to skilled nursing for the past week for therapy, wound care, antibiotics after amputations in right and left feet developed worsening confusion. Strong concern for polypharmacy. #Encephalopathy, toxic - On multiple medications that could account for her altered mental status including amitriptyline, bupropion, citalopram, gabapentin, hydrocodone, pramipexole - Will cautiously resume medications. Out of concern for causing opiate withdrawal or withdrawal from gabapentin - Reduced gabapentin 200 mg 3 times a day, hydrocodone 5/325 1 tablet every 6 hours as needed for severe pain - Resume citalopram 20 mg daily, bupropion 150 mg twice daily - Discontinue pramipexole due to concern/risk for akathisia and amitriptyline due to sedation. #CKD stage III Kidney function at baseline with BUN 25, creatinine 0.9. Potassium 4.2. #Chronic HFrEF #Hypertension #Hyperlipidemia - Echo obtained with EF reduced to 40%, grade 2 diastolic dysfunction present. - Lasix 80mg BID, carvedilol 12.5mg BID, Plavix 75 mg daily, lisinopril 40 mg, spironolactone 25 mg daily. - Cardiology consulted for PAD, s/p angioplasty of distal SFA and right popliteal artery during last admission. # Osteomyelitis of toe, right #Cellulitis of foot right - Prior history of MRSA osteomyelitis. Recent septic knee on the same side. Mild mottling noted but patient reports this is chronic. Toe ulceration worse per patient's report. - Podiatry consulted, s/p right second toe amputation, fifth metatarsal bone resection, left fifth metatarsal partial amputation. - Cultures growing MSSA. - Hydrocodone 10mg as needed every 6 hours along - Reduced gabapentin 400mg QID due to concern of overmedication. ? Patient is agreeable to SNF placement. [facility] accepted patient. - Continue IV Daptomycin with PICC for a total of 6 weeks until November 30, 2024 per podiatry. - Fall risk: b/l DME (left post op shoe, right short fracture boot with walker). - needs PICC, IV abx x6 weeks (Rec: Dapto 1g IV daily). - Will needs daily dressing changes as above. - Please fax weekly labs: cbc, cmp, esr, crp, cpk/total ck to her PCP Ramos Morales and fax to Podiatry @[phone]. - Will need weekly outpatient f/u with Podiatry. #Hypothyroidism - Continue home levothyroxine 200 mcg daily. ? TSH elevated to 21 improved to 14, previously in the 100s. Suspect previous nonadherence. Will continue at current dose, and follow-up repeat TFTs in 4 weeks. #Iron deficiency anemia #Acute on chronic anemia #Low folic acid ? Low folate levels, continue folic acid 1 mg daily. ? Low normal B12 levels, continue B12 1000mcg daily. #History of T2DM #Recurrent hypoglycemia ? Hemoglobin A1c 5.3%. ? Lantus had been discontinued, sliding scale not being administered. ? Farxiga was previously started by cardiology, discontinued today. Blood sugar stable. #Polyarthritis #Chronic pain syndrome - Continue home [place]. Total time spent on discharge: 32 minutes on chart review, counseling, documentation, and direct care with patient. Exam Data for Last 24 hours Vital signs and Labs for Last 24 Hours: Temp Pulse Resp BP Pulse Ox O2 Del Method 98.2 F 95 H 16 150/81 H 98 Room Air 11/06/24 08:00 11/06/24 08:00 11/06/24 08:00 11/06/24 08:00 11/06/24 08:35 11/06/24 11:00 Laboratory Results - last 24 hr 11/05/24 16:11: POC Glucose 182 H 11/05/24 20:54: POC Glucose 160 H 11/06/24 04:57: POC Glucose 160 H 11/06/24 06:00: WBC 8.8, RBC 2.75 L, Hgb 7.8 L, Hct 25.0 L, MCV 90.9, MCH 28.4, MCHC 31.2 L, RDW 17.0, Plt Count 225, MPV 8.8, Neut % (Auto) 67.3, Lymph % (Auto) 21.3, [place] % (Auto) 6.6, Eos % (Auto) 4.0, Baso % (Auto) 0.3, Neut # (Auto) 5.9, Lymph # (Auto) 1.9, [place] # (Auto) 0.6, Eos # (Auto) 0.4, Baso # (Auto) 0.0, Sodium 135 L, Potassium 4.2, Chloride 99, Carbon Dioxide 29, Anion Gap 11.2, BUN 20 H, Creatinine 0.90, Estimated Creat Clear 64, Estimated GFR 63, Est GFR ( Amer) 77, Glucose 116 H, Calcium 9.4, Magnesium 1.6 D, Total Bilirubin 0.4, AST 28, ALT 18, Alkaline Phosphatase 132 H, Total Protein 7.0, Albumin 3.6, Globulin 3.4 H, Albumin/Globulin Ratio 1.1 I & O for Last 24 hours: Intake & Output 11/03/24 11/04/24 11/05/24 11/06/24 23:59 23:59 23:59 23:59 Intake Total 1398 / 1648 950 / 1560 3502 / 3502 360 / 360 Output Total 1925 / 2225 2300 / 2300 0 / 0 0 / 0 Balance -527 / -577 -1350 / -740 3502 / 3502 360 / 360 Weight 71.804 kg 71.804 kg 69.173 kg 69.989 kg Constitutional Constitutional: no acute distress *Routine HEENT Exam Head: Present normocephalic Eye: Present EOMI and PERRL ENT: Present mucous membranes moist *Routine Neck Exam Neck: Present supple; Absent lymphadenopathy *Routine Respiratory Exam Respiratory: Present CTA bilaterally *Routine Cardiovascular Exam Cardiovascular: Present RRR *Routine Abdominal Exam Abdominal: Present soft and normoactive bowel sounds; Absent tenderness *Routine Extremities Exam Extremities: Absent cyanosis, clubbing or edema *Routine Skin Exam Skin: Present warm; Absent rash *Routine Neurological Exam Neurological: Present alert and oriented X3 Results Data Completed and Pending Labs on day of discharge: Labs from last 24 hours 11/06/24 11/06/24 11/05/24 06:00 04:57 20:54 WBC 8.8 RBC 2.75 L Hgb 7.8 L Hct 25.0 L MCV 90.9 MCH 28.4 MCHC 31.2 L RDW 17.0 Plt Count 225 MPV 8.8 Neut % (Auto) 67.3 Lymph % (Auto) 21.3 [place] % (Auto) 6.6 Eos % (Auto) 4.0 Baso % (Auto) 0.3 Neut # (Auto) 5.9 Lymph # (Auto) 1.9 [place] # (Auto) 0.6 Eos # (Auto) 0.4 Baso # (Auto) 0.0 Sodium 135 L Potassium 4.2 Chloride 99 Carbon Dioxide 29 Anion Gap 11.2 BUN 20 H Creatinine 0.90 Estimated Creat Clear 64 Estimated GFR 63 Est GFR ( Amer) 77 Glucose 116 H POC Glucose 160 H 160 H Calcium 9.4 Magnesium 1.6 D Total Bilirubin 0.4 AST 28 ALT 18 Alkaline Phosphatase 132 H Total Protein 7.0 Albumin 3.6 Globulin 3.4 H Albumin/Globulin Ratio 1.1 11/05/24 16:11 WBC RBC Hgb Hct MCV MCH MCHC RDW Plt Count MPV Neut % (Auto) Lymph % (Auto) [place] % (Auto) Eos % (Auto) Baso % (Auto) Neut # (Auto) Lymph # (Auto) [place] # (Auto) Eos # (Auto) Baso # (Auto) Sodium Potassium Chloride Carbon Dioxide Anion Gap BUN Creatinine Estimated Creat Clear Estimated GFR Est GFR ( Amer) Glucose POC Glucose 182 H Calcium Magnesium Total Bilirubin AST ALT Alkaline Phosphatase Total Protein Albumin Globulin Albumin/Globulin Ratio Preliminary micro results at discharge 11/02/24 15:27 Blood Culture - Preliminary Blood NO GROWTH AFTER 48 HOURS 11/02/24 15:29 Blood Culture - Preliminary Blood NO GROWTH AFTER 48 HOURS DS: Diagnosis Discharge Diagnosis (1) Encephalopathy: Status: Acute Code(s): G93.40 - Encephalopathy, unspecified Qualifiers: Encephalopathy type: unspecified encephalopathy Qualified Code(s): G93.40 - Encephalopathy, unspecified (2) Chronic systolic heart failure: Status: Acute Code(s): I50.22 - Chronic systolic (congestive) heart failure (3) Diabetes mellitus: Status: Acute Code(s): E11.9 - Type 2 diabetes mellitus without complications Qualifiers: Diabetes mellitus type: type 2 (4) History of amputation of right second toe: Status: Acute Code(s): Z89.421 - Acquired absence of other right toe(s) (5) History of partial ray amputation of fifth toe of left foot: Status: Acute Code(s): Z89.422 - Acquired absence of other left toe(s) (6) Hypertension: Status: Acute Code(s): I10 - Essential (primary) hypertension Qualifiers: Hypertension type: unspecified Qualified Code(s): I10 - Essential (primary) hypertension (7) Class 1 obesity: Status: Acute Code(s): E66.811 - Obesity, class 1 (8) Peripheral arterial disease: Status: Acute Code(s): I73.9 - Peripheral vascular disease, unspecified (9) Polypharmacy: Status: Acute Code(s): Z79.899 - Other fdc (current) drug therapy Meds Home Medications and Allergies Home Medications ?Medication ?Instructions ?Recorded ?Confirmed ?Type bupropion HCl 150 mg tablet,12 hr 150 mg PO BID 04/14/24 11/03/24 History sustained-release spironolactone 25 mg tablet 25 mg PO DAILY 04/15/24 11/03/24 History sennosides 8.6 mg tablet (Senna 17.2 mg (2 x 8.6 mg) PO DAILY 30 04/24/24 11/03/24 Rx Laxative) days #60 tabs polyethylene glycol 3350 17 17 g PO DAILY 05/21/24 11/03/24 History gram/dose oral powder (Miralax) citalopram 20 mg tablet 20 mg PO DAILY #90 tabs 08/30/24 11/03/24 Rx allopurinol 100 mg tablet 100 mg PO DAILY #30 tabs 10/09/24 11/03/24 Rx carvedilol 25 mg tablet 12.5 mg (1/2 x 25 mg) PO BID #60 10/09/24 11/03/24 Rx tabs clopidogrel 75 mg tablet 75 mg PO DAILY #30 tabs 10/09/24 11/03/24 Rx lisinopril 40 mg tablet 40 mg PO HS #30 tabs 10/09/24 11/03/24 Rx pantoprazole 40 mg tablet,delayed 40 mg PO HS #90 tabs 10/09/24 11/03/24 Rx release aspirin 81 mg tablet,delayed 81 mg PO DAILY 10/20/24 11/03/24 History release (Darshana Low Dose Aspirin) ferrous sulfate 325 mg (65 mg 325 mg PO DAILY 10/20/24 11/03/24 History iron) tablet (Feosol) levothyroxine 200 mcg tablet 200 mcg PO DAILYDM 10/20/24 11/03/24 History lubiprostone 8 mcg capsule 8 mcg PO BID 10/20/24 11/03/24 History ondansetron 4 mg disintegrating 4 mg PO Q8HP PRN nausea and 10/20/24 11/03/24 History tablet vomiting cyanocobalamin (vitamin B-12) 1,000 mcg PO DAILY #30 caps 10/26/24 11/03/24 Rx 1,000 mcg capsule folic acid 1 mg tablet 1 mg PO DAILY 30 days #30 tabs 10/26/24 11/03/24 Rx atorvastatin 40 mg tablet 40 mg PO HS 11/03/24 11/03/24 History daptomycin 1,000 mg/100 mL in 0.9 1,000 mg IV DAILY 11/03/24 11/03/24 History % sodium chlor intravenous piggyback ceftriaxone 2 gram intravenous 2 g IV Q24H #0 ea 11/05/24 Rx solution furosemide 80 mg tablet 80 mg PO DAILY 30 days #0 tabs 11/05/24 11/03/24 Rx gabapentin 400 mg tablet 200 mg (1/2 x 400 mg) PO TID 30 11/05/24 Rx days #45 tabs hydrocodone 5 mg-acetaminophen 325 1 tab PO Q6HP PRN Severe Pain 11/05/24 Rx mg tablet (7-10) 30 days #120 tabs hydrocodone 10 mg-acetaminophen 0.5 tab PO Q6HP PRN Severe Pain 11/06/24 11/03/24 Rx 325 mg tablet (Scale Score 7-10) 30 days #0 tabs New Prescriptions to Start Prescriptions: gabapentin Neo Pierre hydrocodone-acetaminophen Neo Pierre Allergies Allergy/AdvReac Type Severity Reaction Status Date / Time canagliflozin (From Invokana) Allergy Severe kidney Verified 11/01/24 11:36 issues Discharge Plan Disposition Patient Disposition: er SNF Condition: Fair Discharge Order Discharge Orders: Discharge Order (Routine); Ordered 11/06/24 Ordered By: German Jurado Follow up Plan Follow up with: Daniella Finnegan DPM [Staff Physician] - 11/13/24 11:30 am Prescriptions/Medication Reconciliation: New ceftriaxone 2 gram Recon Soln 2 g IV Q24H Qty: 0 0RF hydrocodone-acetaminophen 5-325 mg Tablet 1 tab PO Q6HP PRN (Reason: Severe Pain (7-10)) 30 Days Qty: 120 0RF Continued polyethylene glycol 3350 [Miralax] 17 gram/dose powder 17 g PO DAILY sennosides [Senna Laxative] 8.6 mg tablet 17.2 mg PO DAILY 30 Days Qty: 60 3RF citalopram 20 mg tablet 20 mg PO DAILY Qty: 90 3RF lisinopril 40 mg tablet 40 mg PO HS Qty: 30 3RF pantoprazole 40 mg tablet,delayed release (DR/EC) 40 mg PO HS Qty: 90 3RF carvedilol 25 mg tablet 12.5 mg PO BID Qty: 60 3RF allopurinol 100 mg tablet 100 mg PO DAILY Qty: 30 3RF clopidogrel 75 mg tablet 75 mg PO DAILY Qty: 30 3RF lubiprostone 8 mcg capsule 8 mcg PO BID Patient Comments: 1 CAPSULE WITH FOOD AND WATER ORALLY TWICE A DAY 30 DAYS aspirin [Darshana Low Dose Aspirin] 81 mg tablet,delayed release (DR/EC) 81 mg PO DAILY ferrous sulfate [Feosol] 325 mg (65 mg iron) tablet 325 mg PO DAILY levothyroxine 200 mcg tablet 200 mcg PO DAILYDM ondansetron 4 mg tablet,disintegrating 4 mg PO Q8HP PRN (Reason: nausea and vomiting) folic acid 1 mg Tablet 1 mg PO DAILY 30 Days Qty: 30 0RF cyanocobalamin (vitamin B-12) 1,000 mcg capsule 1,000 mcg PO DAILY Qty: 30 0RF bupropion HCl 150 mg tablet sustained-release 12 hr 150 mg PO BID spironolactone 25 mg tablet 25 mg PO DAILY Patient Comments: TAKE 1 TABLET BY MOUTH EVERY DAY atorvastatin 40 mg Tablet 40 mg PO HS daptomycin in 0.9 % sod chlor 1,000 mg/100 mL Piggyback 1,000 mg IV DAILY Rx Instructions: STARTED 10/27/24 THROUGH 12/01/24 FOR OSTEOMYELITIS Changed furosemide 80 mg tablet 80 mg PO DAILY 30 Days Qty: 0 0RF gabapentin 400 mg Tablet 200 mg PO TID 30 Days Qty: 45 0RF hydrocodone-acetaminophen 10-325 mg tablet 0.5 tab PO Q6HP PRN (Reason: Severe Pain (Scale Score 7-10)) 30 Days Qty: 0 0RF Patient Comments: TAKE 1 TABLET BY MOUTH EVERY 6 HOURS Discontinued amitriptyline 50 mg tablet 50 mg PO HS pramipexole 0.5 mg tablet 0.5 mg PO DAILY cefepime 1 gram Piggyback 1 g IV HS Rx Instructions: STARTED 11/02/24 THROUGH 11/30/24 FOR OSTEOMYELITIS Problem Reconciliation Problems Reviewed?: Yes Patient Discharge Instructions ACTIVITY: Continue current activity DIET: continue same diet Patient Instructions: DI for Heart Failure, DI for Encephalopathy, Catheter-Associated Urinary Tract Infection, Stop Light Heart Failure, Stop Light Infection Print Language: Romansh Providers Primary Care Provider: José Miguel Isabel Admit Provider: Neo Pierre Attending Provider: Neo Pierre
[2024-11-06 11:50] LABS: POC Glucose,Bedside 206 (70-110)
[2024-11-06 12:00] VITALS: BP 129/69; PULSE 84; RESP 16; TEMP 36.8; O2SAT 97
[2024-11-06 14:33] LABS: POC Glucose,Bedside 201 (70-110)
[2024-11-06 14:40] LABS: POC Glucose,Bedside 202 (70-110)
[2024-11-06 23:42] LABS: POC Glucose,Bedside 166 (70-110)
== END 2024-11-06 14:55 ==
LOC: ER 18:37 → 2ND 21:10
PROVIDERS: Nurse Practitioner Acute Care; Admitting Provider Internal Medicine Adolescent Medicine; Emergency Provider Emergency Medicine; PCP Internal Medicine Adolescent Medicine; Visit Provider Internal Medicine Adolescent Medicine
DX: G92.8 Other toxic encephalopathy (principal); I13.0 Hypertensive heart and chronic kidney disease with heart failure and stage 1 through stage 4 chronic kidney disease, or unspecified chronic kidney disease; I50.42 Chronic combined systolic (congestive) and diastolic (congestive) heart failure; M19.072 Primary osteoarthritis, left ankle and foot; M19.071 Primary osteoarthritis, right ankle and foot; N18.30 Chronic kidney disease, stage 3 unspecified; T40.2X1A Poisoning by other opioids, accidental (unintentional), initial encounter; E11.22 Type 2 diabetes mellitus with diabetic chronic kidney disease; E11.649 Type 2 diabetes mellitus with hypoglycemia without coma; Z89.421 Acquired absence of other right toe(s); Z89.422 Acquired absence of other left toe(s); E66.811 Obesity, class 1; I73.9 Peripheral vascular disease, unspecified; Z79.899 Other long term (current) drug therapy; R29.6 Repeated falls; E11.610 Type 2 diabetes mellitus with diabetic neuropathic arthropathy; Z79.4 Long term (current) use of insulin; R60.0 Localized edema; L97.525 Non-pressure chronic ulcer of other part of left foot with muscle involvement without evidence of necrosis; I25.118 Atherosclerotic heart disease of native coronary artery with other forms of angina pectoris; F17.200 Nicotine dependence, unspecified, uncomplicated; G62.9 Polyneuropathy, unspecified; L97.514 Non-pressure chronic ulcer of other part of right foot with necrosis of bone; R09.89 Other specified symptoms and signs involving the circulatory and respiratory systems; Z95.820 Peripheral vascular angioplasty status with implants and grafts; Z88.8 Allergy status to other drugs, medicaments and biological substances; Z68.27 Body mass index [BMI] 27.0-27.9, adult; F11.90 Opioid use, unspecified, uncomplicated
CPT/HCPCS: 36415; 51702; 70450; 70496; 70498; 71275; 72125; 72128; 72131; 73630; 74177; 80048; 80053; 80307; 81001; 82140; 82550; 82803; 82962; 83605; 83735; 83880; 84100; 84436; 84443; 84484; 85025; 85610; 85651; 85730; 86140; 87040; 87086; 87636; 93005; 97110; 97162; 97166; 99291; G0378; J0696; J0878; J1335; J1644; J3475; J7030; Q9967

== ENCOUNTER 2024-12-13 14:19 | Outpatient (CLI) | payer MEDICARE, MEDICAID, SELFPAY ==
--- OUTSIDE RECORDS SUMMARY | 2024-12-13 14:24 | XMS_ITS | Encounter Summary ---
Author Organization [employer] Address [address] [place] [id number] Care Team Providers Care [employer] Vice President Name Role Phone Unavailable Primary Care Provider Unavailabl e Encounter Details Date Type Department Care Team (Late st Contact Info) Description 03/22/2019 Transcribed Document [facility] [place] Family Medicine [address] [place] [address] ProviderJace [place] [facility] [address] Social History Tobacco Use Types Packs/Day Years Used Date Smoking Tobacco: Never Assessed Comments Unknown Sex and Gender Information Value Date Recorded Sex Assigned at Not on file Legal Sex Female 5:55 PM CDT Gender Identity Not on file Sexual Orientation Not on file documented as of this encounter Miscellaneous Notes * Cerner Conversion Note - Historical ProviderMD - 03/22/2019 5:01 PM CDT ED Discharge Entered On: 03/22/2019 17:01 EDT Performed On: 03/22/2019 17:01 EDT by Meena Mercado Rn Discharge Process Patient Disposition : Discharge Personal Belongings With Patient : Yes Patient Education Completed : Yes Teaching Evaluation : Returns demonstration, Verbalizes understanding IV Discontinued : Yes Meena Mercado Rn - 03/22/2019 17:01 EDT ED Discharge Discharge To : Home with ambulatory/outpatient follow-up Mode Of Departure : Ambulatory Accompanied By : Unaccompanied Prescriptions Given to Patient : Yes Number of Prescriptions Given : 1 Meena Mercado Rn - 03/22/2019 17:01 EDT Electronically signed by Janie Manriquez 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
--- OUTSIDE RECORDS SUMMARY | 2024-12-13 14:24 | XMS_ITS | Encounter Summary ---
Author Organization [employer] Address [address] [place] [address] Care Team Providers Care Account Support Specialist Name Role Phone Unavailable Primary Care Provider Unavailabl e Encounter Details Date Type Department Care Team (Late st Contact Info) Description 03/22/2019 Transcribed Document [facility] Family Medicine [address] [place] [address] ProviderJace [place] [facility] [place] [address] Social History Tobacco Use Types Packs/Day Years Used Date Smoking Tobacco: Never Assessed Comments Unknown Sex and Gender Information Value Date Recorded Sex Assigned at Not on file Legal Sex Female 5:55 PM CDT Gender Identity Not on file Sexual Orientation Not on file documented as of this encounter Miscellaneous Notes * Cerner Conversion Note - Jace Ventura MD - 03/22/2019 4:38 PM [place] [address] MICHELINE HERNANDEZ :1960 Visit Time:03/22/2019 Your Visit Summary Your Care Team Primary Provider: GIL PHILLIPS PA-C Secondary Provider: Your Diagnosis Chest pain Chest pain UTI (urinary tract infection) Medical Information You may obtain a copy of your Emergency Department visit from Medical Records by calling the hospital phone number listed above and asking to be directed to the Medical Records Department. If you had special tests, such as EKG???s or X-rays, the interpretation of your tests given to you by the Emergency Department Physician is a preliminary report. Some fractures and illnesses fail to show up on preliminary tests. These will be reviewed again and we will call you if there are any new suggestions. If your symptoms continue notify your physician. After you leave, you should follow the instructions provided. What to do next Follow-Up Appointments Follow Up with HERIBERTO NORRIS When Within 3 to 5 days Where: [address] [place] [address]- Business (1) Follow Up with [facility] When Within 2 to 3 days Comments Please contact the Patient Resource Center at if you need assistance finding a Primary Care Provider or Specialist in the future. Recommend bland diet. Follow up with Primary Care and discuss evaluation of gallbladder. Follow up with Cardiology. Return to ER if symptoms worse or different. Follow Up with CONI PAZ When Within 2 to 3 days Where: [place] [address] [facility] (1) Allergies No Known Allergies Immunizations This Visit No Immunizations Found Medications What How Much When Instructions Next Dose New nitrofurantoin (Macrobid 100 mg oral capsule) 1 Capsule(s) Oral Two Times A Day Duration: 7 Day(s) Printed Prescription The home medications listed are only as accurate as the information you provided. Please continue taking all of your medications prescribed by your Primary Care Provider unless specifically told to change or discontinue the medication. Please direct any questions regarding your home medications to your Primary Care Provider. Take your medications faithfully. Do NOT skip medication. Do NOT stop taking medications without the direction of a physician. Carry a list of your medications with you at all times, and take this medication list with you to your first follow up visit. Report any side effects. Avoid herbal remedies unless discussed with your physician. As part of your treatment plan, your physician may have prescribed a limited course of a controlled substance. This medication may be given to help people with moderate or severe pain or for other medical conditions, but there are risks involved with treatment. Common side effects may include nausea, constipation, drowsiness, sweating, itching, dry mouth, and rash. More serious side effects may include cognitive and motor impairment, like problems with thinking, concentrating, alertness, and movement (e.g. slowed reflexes), and driving and operating heavy machinery can be dangerous. It is important for you to talk to your physician if you have these side effects or questions. These controlled substances can produce physical dependence and be habit-forming if taken for an extended period of time, which means that the body has gotten used to them and may experience withdrawal symptoms if they are abruptly stopped. Withdrawal symptoms can include runny nose, sweating, goose bumps, diarrhea, abdominal cramping, rapid heartbeat, difficulty sleeping, and nervousness. Please dispose of unused and medications per pharmacy guidance. Test Results Laboratory or Other Results This Visit (last charted value for your 03/22/2019 visit) Hematology 03/22/2019 12:26 PM WBC: 8.6 K/uL -- Normal range between ( 4.5 and 10.5 ) RBC: 4.31 Million/uL -- Normal range between ( 3.93 and 5.22 ) Hct: 36.0 % -- Normal range between ( 34.1 and 44.9 ) Hgb: 12.0 g/dL -- Normal range between ( 11.2 and 15.7 ) Platelet Count: 344 K/uL -- Normal range between ( 163 and 369 ) MCH: 27.8 pg -- Normal range between ( 25.6 and 32.2 ) MCHC: 33.3 Gram/dL -- Normal range between ( 32.2 and 36.5 ) MCV: 83.5 fL -- Normal range between ( 79.0 and 94.8 ) Slide Review: No Eos %: 3.2 % -- Normal range between ( 0.0 and 7.0 ) [place] #: 0.54 K/uL -- Normal range between ( 0.16 and 1.00 ) Eos #: 0.28 x10(3)/uL -- Normal range between ( 0.00 and 0.80 ) [place] %: 6.3 % -- Normal range between ( 3.0 and 9.0 ) Baso %: 0.6 % -- Normal range between ( 0.0 and 1.5 ) Baso #: 0.05 x10(3)/uL -- Normal range between ( 0.00 and 0.20 ) RDW: 13.4 % -- Normal range between ( 11.7 and 14.9 ) Neut %: 50.4 % -- Normal range between ( 34.0 and 71.0 ) Neut #: 4.35 K/uL -- Normal range between ( 1.56 and 6.13 ) Lymph %: 38.9 % -- Normal range between ( 19.3 and 53.1 ) Lymph #: 3.35 x10(3)/uL -- Normal range between ( 1.00 and 3.90 ) MPV: 9.4 fL -- Normal range between ( 9.4 and 12.4 ) IG#: 0.05 x10(3)/uL -- Normal range between ( 0.00 and 0.05 ) IG%: 0.60 % -- Normal range between ( 0.00 and 0.60 ) Urinalysis 03/22/2019 12:20 PM Urine Nitrite: Negative Urine Leukocyte Esterase: Moderate Ur Epithelial Cells: 10-20 /HPF Urine Appearance: Clear Urine Glucose Dipstick: 100 Urine Blood Dipstick: Negative Urine Urobilinogen Dipstick: 0.2 EU/dL Urine Protein Dipstick: Negative Ur Bacteria: 3+ Urine Color: Yellow Ur WBC: 10-20 /HPF Urine Ketones Dipstick: Negative Urine pH Dipstick: 6.0 -- Normal range between ( 6.0 and 8.0 ) Ur Hyaline Casts: 10-20 /LPF Urine Bilirubin Dipstick: Negative Urine Specific [place]: 1.009 -- Normal range between ( 1.005 and 1.030 ) [facility] Type.: [facility] 03/22/2019 2:39 PM Lipase Level: 44 Units/Liter -- Normal range between ( 73 and 393 ) 03/22/2019 12:26 PM Creatinine Level: 1.20 mg/dL -- Normal range between ( 0.55 and 1.02 ) Sodium Level: 133 mmol/L -- Normal range between ( 136 and 146 ) Potassium Level: 4.0 mmol/L -- Normal range between ( 3.5 and 5.1 ) Chloride Level: 95 mmol/L -- Normal range between ( 102 and 112 ) Carbon Dioxide Level: 27 mmol/L -- Normal range between ( 21 and 32 ) Anion Gap: 15 -- Normal range between ( 9 and 20 ) Bilirubin Total: 0.2 mg/dL -- Normal range between ( 0.2 and 1.2 ) A/G Ratio: 0.7 -- Normal range between ( 1.1 and 2.5 ) ALT: 59 Units/Liter -- Normal range between ( 13 and 56 ) AST: 54 Units/Liter -- Normal range between ( 5 and 37 ) Globulin: 4.6 Gram/dL -- Normal range between ( 1.5 and 4.5 ) Alk Phos: 119 Units/Liter -- Normal range between ( 27 and 136 ) Bun/Creatinine: 17.5 -- Normal range between ( 8.0 and 20.0 ) Calcium Level: 9.7 mg/dL -- Normal range between ( 8.4 and 10.1 ) eGFR : 56 mL/min/1.73m2 eGFR NonAfrican: 46 mL/min/1.73m2 Glucose Level: 290 mg/dL -- Normal range between ( 74 and 106 ) Blood Urea Nitrogen: 21 mg/dL -- Normal range between ( 7 and 22 ) Protein Total: 7.9 Gram/dL -- Normal range between ( 6.4 and 8.2 ) Albumin Level: 3.3 Gram/dL -- Normal range between ( 3.4 and 5.0 ) Cardiac Specific Markers 03/22/2019 4:02 PM Troponin I Ultra: <0.015 ng/mL -- Normal range between ( 0.015 and 0.045 ) 03/22/2019 12:26 PM ProBNP: 49 pg/mL -- Normal range between ( 0 and 125 ) Diagnostic Radiology 03/22/2019 12:26 PM CR Chest 1 Vw Portable: CR Chest 1 Vw Portable [employer] Urinary Tract Infection, Adult A urinary tract infection (UTI) is an infection of any part of the urinary tract, which includes the kidneys, ureters, bladder, and urethra. These organs make, store, and get rid of urine in the body. UTI can be a bladder infection (cystitis) or kidney infection (pyelonephritis). What are the causes? This infection may be caused by fungi, viruses, or bacteria. Bacteria are the most common cause of UTIs. This condition can also be caused by repeated incomplete emptying of the bladder during urination. What increases the risk? This condition is more likely to develop if: ??? You ignore your need to urinate or hold urine for long periods of time. ??? You do not empty your bladder completely during urination. ??? You wipe back to front after urinating or having a bowel movement, if you are female. ??? You are uncircumcised, if you are male. ??? You are constipated. ??? You have a urinary catheter that stays in place (indwelling). ??? You have a weak defense (immune) system. ??? You have a medical condition that affects your bowels, kidneys, or bladder. ??? You have diabetes. ??? You take antibiotic medicines frequently or for long periods of time, and the antibiotics no longer work well against certain types of infections (antibiotic resistance). ??? You take medicines that irritate your urinary tract. ??? You are exposed to chemicals that irritate your urinary tract. ??? You are female. What are the signs or symptoms? Symptoms of this condition include: ??? Fever. ??? Frequent urination or passing small amounts of urine frequently. ??? Needing to urinate urgently. ??? Pain or burning with urination. ??? Urine that smells bad or unusual. ??? Cloudy urine. ??? Pain in the lower abdomen or back. ??? Trouble urinating. ??? Blood in the urine. ??? Vomiting or being less hungry than normal. ??? Diarrhea or abdominal pain. ??? Vaginal discharge, if you are female. How is this diagnosed? This condition is diagnosed with a medical history and physical exam. You will also need to provide a urine sample to test your urine. Other tests may be done, including: ??? Blood tests. ??? Sexually transmitted disease (STD) testing. If you have had more than one UTI, a cystoscopy or imaging studies may be done to determine the cause of the infections. How is this treated? Treatment for this condition often includes a combination of two or more of the following: ??? Antibiotic medicine. ??? Other medicines to treat less common causes of UTI. ??? Gcrk-dkd-dpilmwt medicines to treat pain. ??? Drinking enough water to stay hydrated. Follow these instructions at home: ??? Take micx-dtf-egulkfh and prescription medicines only as told by your health care provider. ??? If you were prescribed an antibiotic, take it as told by your health care provider. Do not stop taking the antibiotic even if you start to feel better. ??? Avoid alcohol, caffeine, tea, and carbonated beverages. They can irritate your bladder. ??? Drink enough fluid to keep your urine clear or pale yellow. ??? Keep all follow-up visits as told by your health care provider. This is important. ??? Make sure to: ? Empty your bladder often and completely. Do not hold urine for long periods of time. ? Empty your bladder before and after sex. ? Wipe from front to back after a bowel movement if you are female. Use each tissue one time when you wipe. Contact a health care provider if: ??? You have back pain. ??? You have a fever. ??? You feel nauseous or vomit. ??? Your symptoms do not get better after 3 days. ??? Your symptoms go away and then return. Get help right away if: ??? You have severe back pain or lower abdominal pain. ??? You are vomiting and cannot keep down any medicines or water. This information is not intended to replace advice given to you by your health care provider. Make sure you discuss any questions you have with your health care provider. Document Released: 03/16/2006 Document Revised: 11/29/2017 Document Reviewed: 04/26/2016 [employer] Patient Education ?? 2019 [employer] Nonspecific Chest Pain Chest pain can be caused by many different conditions. There is always a chance that your pain could be related to something serious, such as a heart attack or a blood clot in your lungs. Chest pain can also be caused by conditions that are not life-threatening. If you have chest pain, it is very important to follow up with your health care provider. What are the causes? Causes of this condition include: ??? Heartburn. ??? Pneumonia or bronchitis. ??? Anxiety or stress. ??? Inflammation around your heart (pericarditis) or lung (pleuritis or pleurisy). ??? A blood clot in your lung. ??? A collapsed lung (pneumothorax). This can develop suddenly on its own (spontaneous pneumothorax) or from trauma to the chest. ??? Shingles infection (varicella-zoster virus). ??? Heart attack. ??? Damage to the bones, muscles, and cartilage that make up your chest wall. This can include: ? Bruised bones due to injury. ? Strained muscles or cartilage due to frequent or repeated coughing or overwork. ? Fracture to one or more ribs. ? Sore cartilage due to inflammation (costochondritis). What increases the risk? Risk factors for this condition may include: ??? Activities that increase your risk for trauma or injury to your chest. ??? Respiratory infections or conditions that cause frequent coughing. ??? Medical conditions or overeating that can cause heartburn. ??? Heart disease or family history of heart disease. ??? Conditions or health behaviors that increase your risk of developing a blood clot. ??? Having had chicken pox (varicella zoster). What are the signs or symptoms? Chest pain can feel like: ??? Burning or tingling on the surface of your chest or deep in your chest. ??? Crushing, pressure, aching, or squeezing pain. ??? Dull or sharp pain that is worse when you move, cough, or take a deep breath. ??? Pain that is also felt in your back, neck, shoulder, or arm, or pain that spreads to any of these areas. Your chest pain may come and go, or it may stay constant. How is this diagnosed? Lab tests or other studies may be needed to find the cause of your pain. Your health care provider may have you take a test called an ECG (electrocardiogram). An ECG records your heartbeat patterns at the time the test is performed. You may also have other tests, such as: ??? Transthoracic echocardiogram (TTE). In this test, sound waves are used to create a picture of the heart structures and to look at how blood flows through your heart. ??? Transesophageal echocardiogram (LEANN). This is a more advanced imaging test that takes images from inside your body. It allows your health care provider to see your heart in finer detail. ??? Cardiac monitoring. This allows your health care provider to monitor your heart rate and rhythm in real time. ??? Holter monitor. This is a portable device that records your heartbeat and can help to diagnose abnormal heartbeats. It allows your health care provider to track your heart activity for several days, if needed. ??? Stress tests. These can be done through exercise or by taking medicine that makes your heart beat more quickly. ??? Blood tests. ??? Other imaging tests. How is this treated? Treatment depends on what is causing your chest pain. Treatment may include: ??? Medicines. These may include: ? Acid blockers for heartburn. ? Anti-inflammatory medicine. ? Pain medicine for inflammatory conditions. ? Antibiotic medicine, if an infection is present. ? Medicines to dissolve blood clots. ? Medicines to treat coronary artery disease (CAD). ??? Supportive care for conditions that do not require medicines. This may include: ? Resting. ? Applying heat or cold packs to injured areas. ? Limiting activities until pain decreases. Follow these instructions at home: Medicines ??? If you were prescribed an antibiotic, take it as told by your health care provider. Do not stop taking the antibiotic even if you start to feel better. ??? Take gzcf-aof-xkhjaod and prescription medicines only as told by your health care provider. Lifestyle ??? Do not use any products that contain nicotine or tobacco, such as cigarettes and e-cigarettes. If you need help quitting, ask your health care provider. ??? Do not drink alcohol. ??? Make lifestyle changes as directed by your health care provider. These may include: ? Getting regular exercise. Ask your health care provider to suggest some activities that are safe for you. ? Eating a heart-healthy diet. A registered dietitian can help you to learn healthy eating options. ? Maintaining a healthy weight. ? Managing diabetes, if necessary. ? Reducing stress, such as with yoga or relaxation techniques. General instructions ??? Avoid any activities that bring on chest pain. ??? If heartburn is the cause for your chest pain, raise (elevate) the head of your bed about 6 inches (15 cm) by putting blocks under the legs. Sleeping with more pillows does not effectively relieve heartburn because it only changes the position of your head. ??? Keep all follow-up visits as told by your health care provider. This is important. This includes any further testing if your chest pain does not go away. Contact a health care provider if: ??? Your chest pain does not go away. ??? You have a rash with blisters on your chest. ??? You have a fever. ??? You have chills. Get help right away if: ??? Your chest pain is worse. ??? You have a cough that gets worse, or you cough up blood. ??? You have severe pain in your abdomen. ??? You have severe weakness. ??? You faint. ??? You have sudden, unexplained chest discomfort. ??? You have sudden, unexplained discomfort in your arms, back, neck, or jaw. ??? You have shortness of breath at any time. ??? You suddenly start to sweat, or your skin gets clammy. ??? You feel nauseous or you vomit. ??? You suddenly feel light-headed or dizzy. ??? Your heart begins to beat quickly, or it feels like it is skipping beats. These symptoms may represent a serious problem that is an emergency. Do not wait to see if the symptoms will go away. Get medical help right away. Call your local emergency services (911 in the [place] Do not drive yourself to the hospital. This information is not intended to replace advice given to you by your health care provider. Make sure you discuss any questions you have with your health care provider. Document Released: 03/16/2006 Document Revised: 02/28/2017 Document Reviewed: 02/28/2017 [employer] Interactive Patient Education ?? 2019 [employer]. Emergency Awareness and Preventative Care STROKE is an EMERGENCY Every Minute Counts Act FAST and Check for these signs: FACE Does the face look uneven? ARM Does one arm drift down? SPEECH Does their speech sound strange? TIME Call at any sign of stroke Stroke Risk Factors Atrial Fibrillation (irregular heartbeat) Diabetes Family history of stroke Heart Disease Heavy alcohol use High Blood Pressure High Cholesterol Physical inactivity and obesity Smoking Cigarette Smoking The facts are clear, cigarette smoking will shorten your life. Smoking can cause many illnesses along the way. As a healthcare provider, we recommend that you stop smoking. Assistance with quitting is available by contacting 2-258-XDKR-NOW. This is a free resource providing counseling, support, and referral. Or you may contact your personal physician. National Suicide Prevention Lifeline: The National Suicide Prevention Lifeline is a national network of local crisis centers that provides free and confidential emotional support to people in suicidal crisis or emotional distress 24 hours a day, 7 days a week. Don't Wait! Stop a Heart Attack Before it Starts What is a heart attack? A heart attack is damage or to a part of the heart from severely decreased or lack of blood flow to the heart. Over time, arteries can become narrow from the buildup of fat and cholesterol, which is called plaque. The plaque can rupture causing a blood clot to form. When the blood clot forms, the artery can become severely narrowed or completely blocked, causing a heart attack. Heart attack is the leading cause of in the [place]. 85% of muscle damage occurs within the first 2 hours. Delay in the recognition of heart attack symptoms increases the chances of . Know the early symptoms of a heart attack: Nausea Feeling of fullness in chest Jaw Pain Pain that travels down one or both arms Fatigue/being tired Anxiety Back Pain Chest pressure, squeezing, or discomfort Shortness of breath Sweating, or a cold sweat Feeling of impending doom There are unusual signs of a heart attack, too! Women, the elderly, and diabetics may present with atypical symptoms: Fainting/dizziness Weakness Confusion Risk Factors for a Heart Attack Some heart disease risk factors, such as age and family history, cannot be changed. Others, like smoking and lack of exercise, can be changed. Smoking High Cholesterol High Blood Pressure Family History Obesity Age Gender (Males are at higher risk) Lack of Exercise Diabetes Diet Stress Excessive Alcohol Intake If you or someone you know is experiencing the signs and symptoms of a heart attack, DON???T DELAY. Call immediately and seek help. If someone collapses, perform CPR! Do not attempt to drive if you are having symptoms of heart attack. Hands-Only CPR Why Hands-Only CPR? Hands-Only CPR has been shown to be as effective as conventional CPR for cardiac arrests that occur outside of a hospital. Survival depends on immediately receiving CPR from someone nearby. How do you perform Hands-Only CPR? There are two easy steps: Call if you see a teen or adult collapse Push hard and fast in the center of the chest at a beat of 100 beats per minute. Save a life! 4 WAYS TO GET AHEAD OF SEPSIS SEPSIS is a MEDICAL EMERGENCY. Time matters! Infections put you and your family at risk for a life-threatening condition called sepsis. Sepsis is the body's extreme response to an infection. It is life-threatening, and without timely treatment, sepsis can rapidly lead to tissue damage, organ failure, and . Sepsis happens when an infection you already have-in your skin, lungs, urinary tract or somewhere else-triggers a chain reaction throughout your body. 1 PREVENT INFECTIONS Take good care of chronic conditions. Talk to your doctor about getting the recommended vaccines. 2 PRACTICE GOOD HYGIENE Wash your hands frequently. Keep cuts or open sores clean and covered until they are healed. 3 KNOW THE SYMPTOMS Confusion or disorientation Shortness of breath High heart rate Fever, shivering, or feeling very cold Extreme pain or discomfort Clammy or sweaty skin 4 ACT FAST Get medical care IMMEDIATELY if you suspect sepsis or if you have an infection that is not getting better or is getting worse. To learn more about sepsis and how to prevent infections, visit www.cdc.gov/sepsis. The examination and treatment you have received in the Emergency Department has been done to provide an appropriate evaluation and stabilizing treatment on an emergency basis only. Given the limited resources, it is not meant to be a substitute for complete medical care. The follow-up doctor you named will receive a copy of your records and all test reports. IT IS IMPORTANT THAT YOU SCHEDULE A FOLLOW-UP APPOINTMENT AND ARE RE-EVALUATED. You should report any new complaints, symptoms, or remaining problems at that time. IT IS IMPOSSIBLE FOR THE EMERGENCY DEPARTMENT TO RECOGNIZE AND TREAT ALL ELEMENTS OF INJURY OR ILLNESS IN A SINGLE VISIT. If you have been referred to a specialist physician, it means that we believe you may have a condition that requires the expertise of a specialist. These physicians work in partnership with the hospital and have agreed to see referred patients in their office for further evaluation. KEEP IN MIND THAT THE SPECIALIST HAS HIS/HER OWN OFFICE POLICIES WHICH MAY REQUIRE PROPER INSURANCE OR PAYMENT UP FRONT BEFORE THE SPECIALIST WILL SEE YOU. It is your responsibility to call the specialist physician to make an appointment. We do not have the ability to refer patients to specialists/physicians that work with specific insurance companies. Please be advised that all financial charges or billing practices are determined by that practice, not the hospital. If your insurance company requires that you see a specialist from their approved list, it is your responsibility to contact your insurance company to make those arrangements. It is also your responsibility to follow any other requirements of your insurance company necessary to obtain coverage for claims submitted. We will bill your insurance; however, you are responsible today for any co-pay amounts. You will receive a separate bill for any services you may have received including: emergency, radiology, or pathology physicians. Patient Name:MICHELINE HERNANDEZ AUREA I have received this information and was given the opportunity to ask questions. Patient/Reweaver Name: Patient/Reweaver Signature: Relationship to Patient: Clinician/Hospital Reweaver Signature: Please Provide a Telephone Number Where You Can Be Reached: Is it Permissible To Leave a Message? Date: Electronically signed by Mitra, [facility] Conversion Broomcorn Grader Jean at 10/06/2022 1:13 PM CDT documented in this encounter Plan of Treatment Not on file documented as of this encounter Visit Diagnoses Not on filedocumented in this encounter
--- OUTSIDE RECORDS SUMMARY | 2024-12-13 14:24 | XMS_ITS | Encounter Summary ---
Author Organization [employer] Address [address] [place] [address] Care Team Providers Care Loading Rack Supervisor Name Role Phone Unavailable Primary Care Provider Unavailabl e Encounter Details Date Type Department Care Team (Late st Contact Info) Description 03/23/2019 Transcribed Document [facility] [place] Family Medicine [address] [place] [address] ProviderJace [place] [address] Social History Tobacco Use Types Packs/Day Years Used Date Smoking Tobacco: Never Assessed Comments Unknown Sex and Gender Information Value Date Recorded Sex Assigned at Not on file Legal Sex Female 5:55 PM CDT Gender Identity Not on file Sexual Orientation Not on file documented as of this encounter Miscellaneous Notes * Cerner Conversion Note - Historical ProviderMD - 03/23/2019 9:36 AM CDT CR Chest 1 Vw Portable Ordered: 03/22/2019 Modified Reason for Exam: Chest Pain 03/22/2019 15:36 03/23/2019 09:36 (TRACIE LEDBETTER, AMBROSE) Reviewed by Provider, No further action required X1 - no acute documented in this encounter Plan of Treatment Not on file documented as of this encounter Visit Diagnoses Not on filedocumented in this encounter
--- OUTSIDE RECORDS SUMMARY | 2024-12-13 14:24 | XMS_ITS | Encounter Summary ---
Author Organization [employer] Address [address] [place] [address] Care Team Providers Care Insurance Verification Representative Name Role Phone Unavailable Primary Care Provider Unavailabl e Encounter Details Date Type Department Care Team (Late st Contact Info) Description 03/25/2019 Transcribed Document [facility] [place] [address] [place] [address] ProviderJace MD [facility] [place] [address] Social History Tobacco Use Types Packs/Day Years Used Date Smoking Tobacco: Never Assessed Comments Unknown Sex and Gender Information Value Date Recorded Sex Assigned at Not on file Legal Sex Female 5:55 PM CDT Gender Identity Not on file Sexual Orientation Not on file documented as of this encounter Miscellaneous Notes * Cerner Conversion Note - Historical ProviderMD - 03/25/2019 11:58 AM CDT Urine Culture Collected: 03/22/2019 Complete Body site: Specimen Type: U CleanCatch 03/24/2019 10:24 03/25/2019 11:58 (LAURA ESCALONA, APR) Reviewed by Provider, No further action required Electronically signed by Janie Manriquez Conversion Percussion Instrument Repairer Jean at 10/06/2022 1:10 PM CDT documented in this encounter Plan of Treatment Not on file documented as of this encounter Visit Diagnoses Not on filedocumented in this encounter
--- OUTSIDE RECORDS SUMMARY | 2024-12-13 14:24 | XMS_ITS | Encounter Summary ---
Author Organization Healthcare Address [address] [place] [address] Care Team Providers Care Picker Packer Name Role Phone Carmen Ramos Sterling APRN Primary Care Provider [phone] Encounter Details Date Type Department Care Team (Late st Contact Info) Description 08/01/2024 Orders Only External Location [address] [place] [address] Provider, External Social History Tobacco Use Types Packs/Day Years Used Date Smoking Tobacco: Never Assessed Humiliation, Afraid, Rape, and Kick questionnair e Answer Date Recorded Within the last year, have y ou been afraid of your partner or ex-partner? No 05/28/2024 Within the last year, have y ou been humiliated or emotionally abused in other ways by your partner or ex-partner? No Within the last year, have y ou been kicked, hit, slapped, or otherwise physically hurt by your partner or ex-partner? No 05/28/2024 Within the last year, have y ou been raped or forced to have any kind of sexual activity by your partner or ex-partner? No 05/28/2024 Hunger Vital Sign Answer Date Recorded Within the past 12 months, y ou worried that your food would run out before you got the money to buy more. Never true 05/28/20 24 Within the past 12 months, t he food you bought just didn't last and you didn't have money to get more. Never true 05/28/2024 PRAPARE - Transportation Answer Date Re corded In the past 12 months, has l ack of transportation kept you from medical appointments or from getting medications? No 02/2024 In the past 12 months, has l ack of transportation kept you from meetings, work, or from getting things needed for daily living? No 05/28/2024 Housing Stability Vital Sign Answer Jovany e Recorded In the last 12 months, was t here a time when you were not able to pay the mortgage or rent on time? No 05/28/2024 In the past 12 months, how m any times have you moved where you were living? 1 05/28/2024 At any time in the past 12 m [facility], were you homeless or living in a snf (including now)? No 05/28/2024 Utilities Answer Date Recorded In the past 12 months has th e electric, gas, oil, or water company threatened to shut off services in your home? No 05/28/2024 Comments No Sex and Gender Information Value Date Recorded Sex Assigned at Female 06/08/2024 2:14 PM EST Legal Sex Female 8:15 PM EDT Gender Identity Female 06/08/2024 2:14 PM EST Sexual Orientation Not on file documented as of this encounter Plan of Treatment Upcoming Encounters Date Type Department Care Team (Late st Contact Info) Description 01/07/2025 3:00 PM EDT Appointment [facility] Vascular Lab [address] [place] [address] 01/07/2025 4:00 PM EDT Office Visit [facility] [address] [place] [address] Scotty Truong MD [address] [facility] [address] [place] [address] documented as of this encounter Procedures Procedure Name Priority Date/Time Associated Diagnosis Comments CT OUTSIDE IMAGES 08/01/2024 11:27 PM EST documented in this encounter Results * CT OUTSIDE IMAGES (08/01/2024 11:27 PM EST) Anatomical Region Laterality Modality Computed Tomogra phy 08/01/2024 11:2 7 PM EST us External Provider IMG CT PROCEDURES Final Result documented in this encounter Visit Diagnoses Not on filedocumented in this encounter Additional Health Concerns Infection Onset Date Last Indicated Resolved Time MRSA 08/27/2024 08/28/2024 Assessment Noted Time A Body Mass Index follow-up plan has been documented for the patient 06/12/2024 3:07 PM EST documented as of this encounter Care Teams Picker Packer Relationship Specialty Start Date End Date Ramos Morales APRN [address] [place] [id number] PCP - General 06/25/24 documented as of this encounter
--- OUTSIDE RECORDS SUMMARY | 2024-12-13 14:24 | XMS_ITS | Encounter Summary ---
Author Organization [employer] Address [address] [place] [address] Care Team Providers Care Gravel Wheeler Name Role Phone Unavailable Primary Care Provider Unavailabl e Encounter Details Date Type Department Care Team (Late st Contact Info) Description 03/22/2019 Transcribed Document [facility] [place] [address] [place] [address] ProviderJace MD [facility] [place], [place] [id number] Social History Tobacco Use Types Packs/Day Years Used Date Smoking Tobacco: Never Assessed Comments Unknown Sex and Gender Information Value Date Recorded Sex Assigned at Not on file Legal Sex Female 5:55 PM CDT Gender Identity Not on file Sexual Orientation Not on file documented as of this encounter Miscellaneous Notes * Cerner Conversion Note - Historical ProviderMD - 03/22/2019 4:43 PM CDT [facility] [place] [address] Visit Date/Time: 03/22/2019 16:43:59 MICHELINE HUBER The above patient was seen in the hospital today and needs to be excused from work/school until Return to Work/School Date:03/24/2019 Electronically [address] by Mitra [facility] Conversion R[employer] Machine Operator Cerner at 10/06/2022 1:03 PM CDT documented in this encounter Plan of Treatment Not on file documented as of this encounter Visit Diagnoses Not on filedocumented in this encounter
--- OUTSIDE RECORDS SUMMARY | 2024-12-13 14:24 | XMS_ITS | Encounter Summary ---
Author Organization [facility] Address [address] [place] [address] Care Team Providers Care Bioengineer Name Role Phone Ramos Morales APRN Primary Care Provider [phone] Reason for Visit * Auth/Cert (Routine) Specialty Diagnoses / Procedures Referred By Contac t Referred To Contact Diagnoses Pyogenic arthritis of right knee joint, due to unspecified organism (CMS/HCC) Septic Knee Joint Conner Major MD [address] [place] [address] Phone: tel: fax: [facility] Inpatient [address] [place] [address] Referral ID Status Reason Start Date Expiration Date Visits Re quested Visits Authorized [id number] 1 1 Encounter Details Date Type Department Care Team (Late st Contact Info) Description 08/27/2024 Lab Requisition [facility] [address] [place] [address] Sina Villalobos, HAILE [address] [facility] [address] [place] [address] Encounter for general adult medical examination without abnormal findings Social History Tobacco Use Types Packs/Day Years [...] you got the money to buy more. Patient unable to answer 08/29/2024 Within the past 12 months, t he food you bought just didn't last and you didn't have money to get more. Patient unable to answer 08/29/2024 PRAPARE - Transportation Answer Date Re corded In the past 12 months, has l ack of transportation kept you from medical appointments or from getting medications? Patient unable to answer 08/29/2024 In the past 12 months, has l ack of transportation kept you from meetings, work, or from getting things needed for daily living? Patient unable to answer 08/29/2024 Housing Stability Vital Sign Answer Jovany e Recorded In the last 12 months, was t here a time when you were not able to pay the mortgage or rent on time? Patient unable to answer 08/29/2024 In the past 12 months, how m any times have you moved where you were living? 1 08/29/2024 At any time in the past 12 m [facility], were you homeless or living in a assisted (including now)? Patient unable to answer 08/29/2024 Utilities Answer Date Recorded In the past 12 months has th e [employer], gas, oil, or water [employer] threatened to shut off services in your home? Patient unable to answer 08/29/2024 Comments No Sex and Gender Information Value Date Recorded Sex Assigned at Female 06/08/2024 2:14 PM EST Legal Sex Female 8:15 PM EDT Gender Identity Female 06/08/2024 2:14 PM EST Sexual Orientation Not on file documented as of this encounter Functional Status * Calculated C-SSRS Risk Score (Lifetime/Recent) Answer Date of Assessment Author No Risk Indicated 08/30/2024 8:00 PM EDT Chidi Morfin RN * Question Answer Date of Assessment Author 1. Wish to be (Past 1 Month) No 08/30/2024 8:00 PM EDT Chidi Morfin RN 2. Non-Specific Active Suici diane Thoughts (Past 1 Month) No 08/30/2024 8:00 PM EDT Lynnette Morfin RN 6. Suicidal Behavior (Lifetime) No 8:00 PM EDT Chidi Morfin RN documented as of this encounter Plan of Treatment Upcoming Encounters Date Type Department Care Team (Late st Contact Info) Description 01/07/2025 3:[address] [facility] Vascular Lab [address] [facility] [address] [place] [address] 01/07/2025 4:00 PM EDT Office Visit [facility] [address] [facility] [address] [place] [address] Scotty Truong MD [address] [facility] [address] [place] [address] documented as of this encounter Procedures Procedure Name Priority Date/Time Associated Diagnosis Comments BODY FLUID CELL COUNT W/ MANUAL DIFFERENTIAL Routine 08/27/2024 1:05 PM EDT Encounter for general adult medical examination without abnormal findings BODY FLUID, CYTOSPIN, PATHOLOGIST INTERPRETATION Routine 08/27/2024 1:05 PM EDT Encounter for general adult medical examination without abnormal findings JOINT FLUID CRYSTALS Routine 08/27/2024 1:05 PM EDT Encounter for general adult medical examination without abnormal findings documented in this encounter Results * Body fluid, cytospin, pathologist interpretation (08/27/2024 1:05 PM EDT) Specimen Type Joint Fluid LAB HEMATOLOGY METHOD 08/28/2024 12:[address] [facility] Specimen Source, Body Fluid LAB HEMATOLOGY METHOD 08/28/2024 12:[address] [facility] Clinical Diagnosis, Body Fluid Septic arthritis LAB HEMATOLOGY METHOD 08/28/2024 12:[address] [facility] Interpretation , Body Fluid Degenerated acute inflammatory cells, please correlate with microbiology studies. A resident was involved in the service. I attest I examined the relevant preparations for the specimens and confirmed the diagnosis or interpretation. 08/28/2024 12:[address] [facility] Pathologist Signature, Body Fluid 08/28/2024 12:[address] [facility] Comment:Reviewed by: Larisa joyce MD LAB CP ASR DISCLAIMER Yes 08/28/2024 12:[address] [facility] Joint Fluid 08/27/2024 1:05 PM EDT 08/27/2024 3:14 PM EDT us Sina BE LAB BODY FLUIDS AND STOOLS ORDERABLES Final Result Performing Organization Address [facility] Co de Phone Number [facility] [address] [place] [address] * Synovial fluid, crystal (08/27/2024 1:05 PM EDT) Crystals, Joint Fluid No Crystals Seen No Crystals Present 08/27/2024 7:[address] [facility] Joint Fluid 08/27/2024 1:05 PM EDT 08/27/2024 3:14 PM EDT Sina BE LAB BODY FLUIDS AND STOOLS ORDERABLES Final Result [facility] [address] [place] [address] * (ABNORMAL) Body Fluid Cell Count w/ Diff (08/27/2024 1:05 PM EDT) Color, Body fluid Yellow LAB HEMATOLOGY METHOD 08/27/2024 7:[address] [facility] Appearance, Body fluid Cloudy(A) LAB HEMATOLOGY METHOD 08/27/2024 7:[address] [facility] Volume, Body fluid 1.0 cc LAB HEMATOLOGY METHOD 08/27/2024 7:[address] [facility] Fluid Container Specimen received in EDTA tube LAB HEMATOLOGY METHOD 08/27/2024 7:[address] [facility] Red Blood Cell Count, Body fluid 30,000 uL LAB HEMATOLOGY METHOD 08/27/2024 7:[address] [facility] Total Nucleated Cell Count, Body fluid >100,000 uL LAB HEMATOLOGY METHOD 08/27/2024 7:[address] [facility] Neutrophils %, Body fluid 95 % LAB HEMATOLOGY METHOD 08/27/2024 7:[address] [facility] Lymphocytes %, Body fluid 1 % LAB HEMATOLOGY METHOD 08/27/2024 7:[address] [facility] Monocytes/Macr ophages %, Body fluid 4 % LAB HEMATOLOGY METHOD 08/27/2024 7:[address] [facility] Eosinophils %, Body fluid 0 % LAB HEMATOLOGY METHOD 08/27/2024 7:[address] [facility] Lining/Mesothe lial Cells %, Body fluid 0 % LAB HEMATOLOGY METHOD 08/27/2024 7:[address] [facility] Neutrophils Absolute (PMN), Body fluid >9,500 uL LAB HEMATOLOGY METHOD 08/27/2024 7:[address] [facility] Lymphocytes Absolute, Body fluid >100 uL LAB HEMATOLOGY METHOD 08/27/2024 7:[address] [facility] Monocytes/Macr ophages Absolute, Body fluid >400 uL LAB HEMATOLOGY METHOD 08/27/2024 7:[address] [facility] Eosinophils Absolute, Body fluid 0 uL LAB HEMATOLOGY METHOD 08/27/2024 7:[address] [facility] Basophils Absolute, Body fluid 0 uL LAB HEMATOLOGY METHOD 08/27/2024 7:[address] [facility] Lining/Mesothe lial Cells Absolute, Body fluid 0 uL LAB HEMATOLOGY METHOD 08/27/2024 7:[address] [facility] Comment, Body fluid Differential and/or cell count may be inaccurate due to cellular degeneration. LAB HEMATOLOGY METHOD 08/27/2024 7:[address] [facility] Basophils %, Body fluid 0 % LAB HEMATOLOGY METHOD 08/27/2024 7:45 PM EDT [facility] Joint Fluid 08/27/2024 1:05 PM EDT 08/27/2024 3:14 PM EDT us Sina BE LAB BODY FLUIDS AN D STOOLS ORDERABLES NO SPECIMEN TYPE/SOURCE Final Result Performing Organization Address City/State/[facility] Co de Phone Number [facility] [address] [place] [address] documented in this encounter Visit Diagnoses Diagnosis Encounter for general adult medical examination without abnormal findings documented in this encounter Additional Health Concerns Infection Onset Date Last Indicated Resolved Time MRSA 08/27/2024 08/28/2024 Assessment Noted Time A Body Mass Index follow-up plan has been documented for the patient 09/26/2024 11:03 AM EDT documented as of this encounter Care Teams Bioengineer Relationship Specialty Start Date End Date Ramos Morales APRN [address] [place] [address] PCP - General 06/25/24 documented as of this encounter
--- OUTSIDE RECORDS SUMMARY | 2024-12-13 14:24 | XMS_ITS | Encounter Summary ---
Author Organization [facility] Address [address] [place] [address] Care Team Providers Care After School Coordinator Name Role Phone Ramos Morales APRN Primary Care Provider [phone] Reason for Visit * Auth/Cert (Routine) Specialty Diagnoses / Procedures Referred By Contac t Referred To Contact Diagnoses Pyogenic arthritis of right knee joint, due to unspecified organism (CMS/HCC) Septic Knee Joint Conner Major MD [address] [place] [address] Phone: tel: fax: [facility] Inpatient [address] [place] [address] Referral ID Status Reason Start Date Expiration Date Visits Re quested Visits Authorized [id number] 1 1 Encounter Details Date Type Department Care Team (Late st Contact Info) Description 08/27/2024 Lab Requisition [facility] [address] [place] [address] Sina Villalobos, HAILE [address] [facility] [address] [place] [address] Encounter for general adult medical examination without [...] any time in the past 12 m [facility], were you homeless or living in a retirement (including now)? Patient unable to answer 08/29/2024 Utilities Answer Date Recorded In the past 12 months has th e [employer], gas, oil, or water [employer] threatened to shut off services in your [...] Info) Description 01/07/2025 3:00 PM EDT Appointment [facility] Vascular Lab [address] [facility] [address] [place] [address] 01/07/2025 4:00 PM EDT Office Visit [facility] [address] [facility] [address] [place] [address] Scotty Truong MD [address] [place] [address] documented as of this encounter Procedures Procedure Name Priority Date/Time Associated Diagnosis Comments BODY FLUID CULTURE AND GRAM STAIN Routine 08/27/2024 1:05 PM EDT Encounter for general adult medical examination without abnormal findings documented in this encounter Results * (ABNORMAL) Body Fluid Culture and Gram Stain (08/27/2024 1:05 PM EDT) Culture Light Growth 08/29/2024 12:22 PM EDT [facility] Culture Methicillin-Resista nt Staphylococcus aureus(AA) YAMIL 08/29/2024 12:22 PM EDT [facility] Comment: The organism value for this result has been updated. These results have been appended to the previously preliminary verified report. Edited result: Previously reported as Staphylococcus aureus on 08/29/2024 at 0730 EDT. Staphylococcus aureus has been updated to reportable. Gram Stain Result Numerous Polymorphonuclear leukocytes(A) 08/29/2024 12:22 PM EDT [facility] Gram Stain Result Rare Gram positive cocci in pairs(A) 08/29/2024 12:22 PM EDT [facility] Joint Fluid Synovial fluid specimen / Unknown 08/27/2024 1:05 PM EDT 08/27/2024 3:27 PM EDT Narrative Organism Antibiotic Method Susceptibility Methicillin-Resistant Staphylococcus aureus Clindamycin YAMIL <=0.5 ug/ml: Susceptible Methicillin-Resistant Staphylococcus aureus Daptomycin YAMIL <=1 ug/ml: Susceptible Methicillin-Resistant Staphylococcus aureus Erythromycin YAMIL <=0.5 ug/ml: Susceptible Methicillin-Resistant Staphylococcus aureus Gentamicin YAMIL <=1 ug/ml: Susceptible Methicillin-Resistant Staphylococcus aureus Linezolid YAMIL <=1 ug/ml: Susceptible Methicillin-Resistant Staphylococcus aureus Minocycline YAMIL <=1 ug/ml: Susceptible Methicillin-Resistant Staphylococcus aureus Oxacillin YAMIL >2 ug/ml: Resistant Methicillin-Resistant Staphylococcus aureus Penicillin G YAMIL >1 ug/ml: Resistant Methicillin-Resistant Staphylococcus aureus Tetracycline YAMIL <=0.5 ug/ml: Susceptible Methicillin-Resistant Staphylococcus aureus Trimethoprim/Sulfamethoxa zole YAMIL <=0.5/9.5 ug/ml: Susceptible Methicillin-Resistant Staphylococcus aureus Vancomycin YAMIL 1 ug/ml: Susceptible Sina BE LAB MICROBIOLOGY - GENERAL ORDERABLES Final Result [facility] [address] [place] [address] documented in this encounter Visit Diagnoses Diagnosis Encounter for general adult medical examination without abnormal findings documented in this encounter Additional Health Concerns Infection Onset Date Last Indicated Resolved Time MRSA 08/27/2024 08/28/2024 Assessment Noted Time A Body Mass Index follow-up plan has been documented for the patient 09/26/2024 11:03 AM EDT documented as of this encounter Care Teams After School Coordinator Relationship Specialty Start Date End Date Ramos Mroales APRN [address] [place] [id number] PCP - General 06/25/24 documented as of this encounter
--- OUTSIDE RECORDS SUMMARY | 2024-12-13 14:24 | XMS_ITS | Encounter Summary ---
Author Organization [employer] Address [address] [place] [id number] Care Team Providers Care Bicycle I Assembler Name Role Phone Unavailable Primary Care Provider Unavailabl e Encounter Details Date Type Department Care Team (Late st Contact Info) Description 03/22/2019 Transcribed Document [facility] [place] [address] [place] [address] ProviderJace MD Formerly [facility], [facility] [place], [place] [id number] Social History Tobacco Use Types Packs/Day Years Used Date Smoking Tobacco: Never Assessed Comments Unknown Sex and Gender Information Value Date Recorded Sex Assigned at Not on file Legal Sex Female 5:55 PM CDT Gender Identity Not on file Sexual Orientation Not on file documented as of this encounter Miscellaneous Notes * Raniner Conversion Note - Historical ProviderMD - 03/22/2019 4:33 PM CDT documented in this encounter Plan of Treatment Not on file documented as of this encounter Visit Diagnoses Not on filedocumented in this encounter
--- OUTSIDE RECORDS SUMMARY | 2024-12-13 14:24 | XMS_ITS | Encounter Summary ---
Author Organization [employer] Address [address] [place] [address] Care Team Providers Care Adult And Pediatric Neurologist Name Role Phone Unavailable Primary Care Provider Unavailabl e Encounter Details Date Type Department Care Team (Late st Contact Info) Description 03/22/2019 Transcribed Document [facility] [place] [address] [place] [address] ProviderJace MD [facility] [place] [address] Social History Tobacco Use Types Packs/Day Years Used Date Smoking Tobacco: Never Assessed Comments Unknown Sex and Gender Information Value Date Recorded Sex Assigned at Not on file Legal Sex Female 5:55 PM CDT Gender Identity Not on file Sexual Orientation Not on file documented as of this encounter Miscellaneous Notes * Cerner Conversion Note - Jace ProviderMD - 03/22/2019 11:35 AM CDT ED Assessment Entered On: 03/22/2019 12:09 EDT Performed On: 03/22/2019 11:45 EDT by Cornelia Baird RN ED Quick Look Assessment Level of Consciousness : Alert, Awake Affect/Behavior : Appropriate, Calm, Cooperative Orientation : Oriented x 4 Skin Temperature : Warm Skin Description : Normal for ethnicity Cornelia Baird RN - 03/22/2019 12:08 EDT ED General-Functional Assess Information Obtained From : Patient Preferred Communication Mode : Verbal Communication Barrier : None Primary Language : Georgian Any Spiritual/Cultural Needs or Requests : No Currently in Unsafe Situation : No Cornelia Baird RN - 03/22/2019 12:08 EDT Social Habits Smoking Status : 10 or more cigarettes (1/2 pack or more)/day in last 30 days Smokeless Tobacco Status : Never Desires Tobacco Cessation Medication : No Reason for No Tobacco Cessation Medication : ED/procedural patient only Desires Tobacco Cessation Calc : 1 Cornelia Baird RN - 03/22/2019 12:08 EDT Social History (As Of: 03/22/2019 12:09:44 EDT) Tobacco: Use in Last 12 Months: Cigarettes. Smoking Status Current every day smoker. Packs/Tins Daily: 1. Smoking Cessation Info Provided: Yes. (Last Updated: 12/23/2014 19:01:04 EDT by Isaac Dacosta, [place]) 10 or more cigarettes (1/2 pack or more)/day in last 30 days Smoking Status. (Last Updated: 03/22/2019 12:08:48 EDT by Cornelia Baird, RN) Alcohol: Alcohol Use History No. (Last Updated: 03/22/2019 12:08:48 EDT by Cornelia Baird, RN) Substance Abuse: Drug Use Hx: No. Use in Last 12 Months: No. 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
--- OUTSIDE RECORDS SUMMARY | 2024-12-13 14:24 | XMS_ITS | Encounter Summary ---
Author Organization [facility] Address [address] [place] [address] Care Team Providers Care Digital Printer Name Role Phone Carmen Ramos Sterling APRN Primary Care Provider [phone] Encounter Details Date Type Department Care Team (Late st Contact Info) Description 11/27/2024 Telephone [facility] [address] [place] [address] Scotty Truong MD [address] [facility] [address] [place] [address] Social History Tobacco Use Types Packs/Day Years Used Date Smoking Tobacco: Never Passive Smoke Exposure: Never Smokeless Tobacco: Never Alcohol Use Standard Drinks/Week Comments Never 0 (1 standard drink = 0.6 oz pur e alcohol) Humiliation, Afraid, Rape, and Kick questionnair e [...] [facility] the [facility] were [facility] or living in a detention (including now)? Patient unable to answer 08/29/2024 [...] as of this encounter Miscellaneous Notes * Telephone Encounter - Ankur Andrew - 11/27/2024 12:20 PM EDT Spoke with pt to reschedule [facility] discharge vascular consult. Pt state she is in rehab for her legs due to a recent fall. We scheduled for the next opening at the end of December. Pt is agreeable to times/date/location. I confirmed her mailing address and sent reminders. documented in this encounter Plan of Treatment Upcoming Encounters Date Type Department Care Team (Late st Contact Info) Description 01/07/2025 3:00 PM EDT Appointment [facility] [address] [place] [address] 01/07/2025 4:00 PM EDT Office Visit [facility] [address] [place] [address] Scotty Truong MD [address] [facility] [address] [place] [address] documented as of this encounter Goals Goal Patient Goal Type Associated Problems Recent Progress Patient-Stated? 

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
--- OUTSIDE RECORDS SUMMARY | 2024-12-13 14:24 | XMS_ITS | Encounter Summary ---
Author Organization [employer] Address [address] [place] [address] Care Team Providers Care Electronic Funds Transfer Coordinator Name Role Phone Unavailable Primary Care Provider Unavailabl e Encounter Details Date Type Department Care Team (Late st Contact Info) Description 03/22/2019 Transcribed Document [facility] [place] Family Medicine [address] [place] [address] ProviderJace MD [address] [place] [id number] Social History Tobacco Use Types Packs/Day Years Used Date Smoking Tobacco: Never Assessed Comments Unknown Sex and Gender Information Value Date Recorded Sex Assigned at Not on file Legal Sex Female 5:55 PM CDT Gender Identity Not on file Sexual Orientation Not on file documented as of this encounter Miscellaneous Notes * Cerner Conversion Note - Historical ProviderMD - 03/22/2019 2:24 PM CDT Patient: MICHELINE HUBER Age: 58 years Sex: Female : 1960 Associated Diagnoses: Chest pain; UTI (urinary tract infection) Author: MIKE KC PA Basic Information Additional information: Chief Complaint from Nursing Triage Note : Chief Complaint 03/22/2019 11:36 EDT Chief Complaint via [facility] Fire with substernal CP radiating to back x2d; vomiting this morning; BG low this morning (50; 345 per EMS); denies chest pain at present; 324 asa and one Ntg [employer] IN[employer]ER . History of Present Illness The patient presents with chest pain and Patient is 58-year-old female with diabetes CAD hypertension hyperlipidemia and hypothyroidism she presents emergency department with complaint of low chest to epigastric pain that started while she was at work, patient poor she was sitting at work when she suddenly had sharp pain that radiated straight through to her back and into her right arm, patient says that she is short of breath when she couldn't catch her breath for a few seconds, her boss called EMS and they gave her aspirin and nitroglycerin prior to arrival, she reports that this relieved her pain. Patient also reports that she had 1 episode of vomiting this morning after taking her insulin. Patient denies fever chills headache dizziness blurred vision cough congestion diarrhea dysuria hematuria numbness tingling decreased range of motion lower extremity edema rash. The onset was just prior to arrival. The course/duration of symptoms is resolved: unknown. Location: Inferior substernal epigastric. Radiating pain: right arm. middle of the back. The character of symptoms is achy and sharp. The degree at onset was moderate. The degree at maximum was moderate. The degree at present is none. The exacerbating factor is none. The relieving factor is nitroglycerin. Risk factors consist of coronary artery disease, hypertension, diabetes mellitus, obesity and hyperlipidemia. Prior episodes: coronary artery disease. Therapy today Nitroglycerin and Aspirin. Associated symptoms: shortness of breath. Review of Systems Additional review of systems information: All other systems reviewed and otherwise negative. Health Status Allergies: Allergic Reactions (Selected) No Known Allergies. Medications: (Selected) Documented Medications Documented Actos 30 mg oral tablet: Tab, Oral, Daily, 0 Refill(s) Celexa 10 mg oral tablet: 1 Tab, Oral, Daily, 30 Tab, 0 Refill(s) Coreg 12.5 mg oral tablet: 1 Tab, Oral, BID, 180 Tab, 0 Refill(s) Fish Oil: 1,000 mg, Oral, 0 Refill(s) Lantus 100 units/mL subcutaneous solution: 42 Units, SubCutaneous, BID With Meals, 0 Refill(s) Lasix 20 mg oral tablet: 2 Tab, Oral, Daily, 30 Tab, 0 Refill(s) Lipitor 20 mg oral tablet: Tab, Oral, Daily, 0 Refill(s) Lortab 10/325 oral tablet: Tab, Oral, Q6H, 0 Refill(s) Neurontin 600 mg oral tablet: 2 Tab, Oral, TID, 0 Refill(s) Synthroid 88 mcg (0.088 mg) oral tablet: 1 Tab, Oral, Daily, 60 Tab, 0 Refill(s) Wellbutrin SR 150 mg/12 hours oral tablet, extended release: Tab, Oral, BID, 0 Refill(s) amitriptyline 50 mg oral tablet: 1 Tab, Oral, At Bedtime, 30 Tab, 0 Refill(s) hydrochlorothiazide: 25 mg, Oral, Daily, 0 Refill(s) ibuprofen 800 mg oral tablet: 1 Tab, Oral, TID, 270 Tab, 0 Refill(s) lisinopril 40 mg oral tablet: 1 Tab, Oral, Daily, 30 Tab, 0 Refill(s) omeprazole: 40 mg, Oral, Daily, 0 Refill(s) ropinirole 2 mg oral tablet: 1 Tab, Oral, TID, 0 Refill(s) tramadol 50 mg oral tablet: 1 Tab, Oral, Q6H, 0 Refill(s). Immunizations: Per nurse's notes. Past Medical/ Family/ Social History Medical history Reviewed as documented in chart. Surgical history: Hysterectomy. Bladder mesh. carpal tunnel. cardiac stents. BTL., Reviewed as documented in chart. Family history: No family history items have been selected or recorded., Reviewed as documented in chart. Social history: Social & Psychosocial Habits Alcohol 03/22/2019 Alcohol Use History, Social Habits No Substance Abuse 03/22/2019 Recreational Drug Use History No Recreational Drug Use Last 12 Months No Tobacco 12/23/2014 Tobacco Use Within Last Twelve Months Cigarettes Smoking Status Current every day smoker Packs/Tins Daily 1 Smoking Cessation Information Provided Yes 03/22/2019 Smoking Status 10 or more cigarettes (1/ . Problem list: Active Problems (21) A-fib Arthritis Back pain, chronic CAD (coronary artery disease) Cardiomyopathy Carotid artery stenosis Carpal tunnel syndrome Chronic anxiety Chronic depression Cigarette smoker Diabetes Diabetic peripheral neuropathy GERD - Gastro-esophageal reflux disease HLD (hyperlipidemia) HTN (hypertension) Hypothyroid SC Obesity Post-menopause Sleep apnea Syncope , per nurse's notes. Physical Examination Vital Signs Vital Signs/Vital Measures 03/22/2019 13:30 EDT Systolic Blood Pressure 115 mmHg Diastolic Blood Pressure 72 mmHg Mean Arterial Pressure (MAP)-BMDI 88 Heart Rate Monitored 78 bpm Respiratory Rate 16 Breaths/Min Oxygen Saturation 96 % Oxygen Therapy Mode Room air 03/22/2019 13:00 EDT Systolic Blood Pressure 97 mmHg Diastolic Blood Pressure 62 mmHg Mean Arterial Pressure (MAP)-BMDI 76 Heart Rate Monitored 82 bpm Respiratory Rate 16 Breaths/Min Oxygen Saturation 97 % Oxygen Therapy Mode Room air 03/22/2019 12:30 EDT Systolic Blood Pressure 110 mmHg Diastolic Blood Pressure 61 mmHg Mean Arterial Pressure (MAP)-BMDI 79 Heart Rate Monitored 86 bpm Respiratory Rate 19 Breaths/Min Oxygen Saturation 98 % Oxygen Therapy Mode Room air 03/22/2019 12:00 EDT Systolic Blood Pressure 107 mmHg Diastolic Blood Pressure 78 mmHg Mean Arterial Pressure (MAP)-BMDI 89 Heart Rate Monitored 86 bpm Respiratory Rate 20 Breaths/Min Oxygen Saturation 98 % Oxygen Therapy Mode Room air 03/22/2019 11:37 EDT Temperature Source Oral Temperature Mode Fahrenheit Temperature, Fahrenheit 98.8 Deg F 03/22/2019 11:36 EDT Systolic Blood Pressure 104 mmHg Diastolic Blood Pressure 57 mmHg LOW Mean Arterial Pressure (MAP)-BMDI 74 Temperature Source Oral Temperature Mode Fahrenheit Heart Rate Monitored 88 bpm Respiratory Rate 17 Breaths/Min (Modified) Oxygen Saturation 99 % Oxygen Therapy Mode Room air . Measurements 03/22/2019 11:36 EDT Height Source Stated Height Entry Format [place] Height/Length, KYRGYZ (ft) 5 ft Height/Length KYRGYZ 2 Inch CLINICALHEIGHT 157.48 cm [place] Body Weight 49.73 kg Weight Source, ED Critical estimated dosing weight Weight Entry Format [place] Weight Lao lb 183 lb CLINICALWEIGHT 83.18 kg Body Surface Area (BSA) 1.84 m2 Body Mass Index 33.5 kg/m2 HI . Oxygen Saturation 03/22/2019 13:30 EDT Oxygen Saturation 96 % 03/22/2019 13:00 EDT Oxygen Saturation 97 % 03/22/2019 12:30 EDT Oxygen Saturation 98 % 03/22/2019 12:00 EDT Oxygen Saturation 98 % 03/22/2019 11:36 EDT Oxygen Saturation 99 % . General: Alert, no acute distress. Skin: Warm, dry, pink, no rash, normal for ethnicity. Head: Normocephalic, atraumatic. Neck: Supple, trachea midline, no tenderness. Eye Ears, nose, mouth and throat: Oral mucosa moist. Cardiovascular: Regular rate and rhythm, No murmur, Normal peripheral perfusion. Respiratory: Lungs are clear to auscultation, respirations are non-labored. Chest wall: No tenderness. Back: Nontender, Normal range of motion. Musculoskeletal: Normal ROM, normal strength. Gastrointestinal: Soft, Non distended, Normal bowel sounds, Tenderness: Moderate, epigastric, right upper quadrant, left upper quadrant, Guarding: Negative, Rebound: Negative. Neurological: Alert and oriented to person, place, time, and situation, No focal neurological deficit observed, normal sensory observed, normal motor observed, normal speech observed, normal coordination observed. Psychiatric: Cooperative, appropriate mood & affect. Medical Decision Making Differential Diagnosis: Angina, anxiety, atypical chest pain, gastroesophageal reflux disease, biliary disease. Documents reviewed: Emergency department nurses' notes, emergency department records, prior records. Orders Include Previous Orders (Selected) Inpatient Orders Ordered EKG: EKG: Ordered (In-Lab) Culture Urine: Completed .Automated Differential: .Urinalysis Microscopic: CBC w/ Auto Diff: CMP Comprehensive Metabolic Panel: CR Chest 1 Vw Portable: Cardiac Monitoring: ED Adult Fall Risk Assessment: ED Adult Triage: ED Clinical Reconciliation: ED keyseating machine set up operator: Lipase Level: Normal Saline Flush: 10 mL, IV Push, See Comment ProBNP: Saline Lock Insert: Troponin I Ultra: Troponin I Ultra: Urinalysis w Culture if Indicated: . Electrocardiogram: Time 03/22/2019 11:39:00, rate 88, normal sinus rhythm, No ST changes, no ectopy, normal HI & QRS intervals, EP Interp. Electrocardiogram: Time 03/22/2019 15:41:00, rate 75, normal sinus rhythm, No ST changes, no ectopy, normal HI & QRS intervals, EP Interp. commercial loan reviewer: Normal sinus rhythm. Results review: All Results 03/22/2019 16:02 EDT Troponin I Ultra <0.015 ng/mL 03/22/2019 14:39 EDT Lipase Level 44 Units/Liter LOW 03/22/2019 12:26 EDT Sodium Level 133 mmol/L LOW Potassium Level 4.0 mmol/L Chloride Level 95 mmol/L LOW Carbon Dioxide Level 27 mmol/L Anion Gap 15 Glucose Level 290 mg/dL HI Blood Urea Nitrogen 21 mg/dL Creatinine Level 1.20 mg/dL HI eGFR 56 mL/min/1.73m2 LOW eGFR NonAfrican 46 mL/min/1.73m2 LOW Bun/Creatinine 17.5 Calcium Level 9.7 mg/dL Protein Total 7.9 Gram/dL Albumin Level 3.3 Gram/dL LOW Globulin 4.6 Gram/dL HI A/G Ratio 0.7 LOW Bilirubin Total 0.2 mg/dL Alk Phos 119 Units/Liter AST 54 Units/Liter HI ALT 59 Units/Liter HI Troponin I Ultra <0.015 ng/mL ProBNP 49 pg/mL WBC 8.6 K/uL RBC 4.31 Million/uL Hgb 12.0 g/dL Hct 36.0 % MCV 83.5 fL MCH 27.8 pg MCHC 33.3 Gram/dL Platelet Count 344 K/uL MPV 9.4 fL RDW 13.4 % Neut % 50.4 % Neut # 4.35 K/uL Lymph % 38.9 % Lymph # 3.35 x10(3)/uL [place] % 6.3 % [place] # 0.54 K/uL Eos % 3.2 % Eos # 0.28 x10(3)/uL Baso % 0.6 % Baso # 0.05 x10(3)/uL Slide Review No IG# 0.05 x10(3)/uL IG% 0.60 % 03/22/2019 12:20 EDT Urine Type. U CleanCatch Urine Color Yellow Urine Appearance Clear Urine Specific [place] 1.009 Urine pH Dipstick 6.0 Urine Leukocyte Esterase Moderate Urine Nitrite Negative Urine Protein Dipstick Negative Urine Glucose Dipstick 100 Urine Ketones Dipstick Negative Urine Urobilinogen Dipstick 0.2 EU/dL Urine Bilirubin Dipstick Negative Urine Blood Dipstick Negative Ur WBC 10-20 /HPF Ur Bacteria 3+ Ur Epithelial Cells 10-20 /HPF Ur Hyaline Casts 10-20 /LPF . Radiology results: Radiology Results (Last 48 hours) [id number] -- 03/22/2019 11:35 CR Chest 1 Vw Portable (03/22/2019 12:26) Result: PORTABLE CHEST X-RAYINDICATION: Precordial chest pain.FINDINGS: A portable view of the chest was obtained. There is no priorexam for comparison. Cardiac and mediastinal silhouettes are withinnormal limits. Lung volumes are low. There is left greater than rightbasilar opacity favored to be atelectasis. There is no pleural effusionor pneumothorax.IMPRESSION: Low lung volumes with bibasilar opacity, favor atelectasis. . Impression and Plan Diagnosis Chest pain - Discharge, Emergency medicine, Medical UTI (urinary tract infection) - Discharge, Emergency medicine, Medical Plan Condition: Improved, Stable. Disposition: Discharged Admit/Transfer/Discharge: Discharge (Order): Start: 03/22/2019 16:35 EDT, Discharge to: Home , Patient care transitioned to: Time: 03/22/2019 16:06:00, GIL PHILLIPS PA-C, [id number] Patient feeling well. Reports no chest pain and no abdomen pain. She had the pain she had this morning yesterday also. She had sausage this morning before this pain and vomiting. Abdomen soft/some epigastric tenderness. No guarding. She has not see cardiology in over 3 years. Advised f/u PCP and cardiology.. Prescriptions: Prescription [facility]: Macrobid 100 mg oral capsule (Prescribe): 1 Cap, Oral, BID, for 7 Day(s), 14 Cap, 0 Refill(s) . Patient was given the following educational materials: Nonspecific Chest Pain, Urinary Tract Infection, Adult. Follow up with: Patient Resource Center Within 2 to 3 days Please contact the Patient Resource Center at if you need assistance finding a Primary Care Provider or Specialist in the future. Recommend bland diet. Follow up with Primary Care and discuss evaluation of gallbladder. Follow up with Cardiology. Return to ER if symptoms worse or different. ; CONI PAZ Within 2 to 3 days; HERIBERTO NORRIS Within 3 to 5 days. Counseled: Patient, Regarding diagnosis, Regarding diagnostic results, Regarding treatment plan, Regarding prescription, Patient indicated understanding of instructions. Notes: I certify that the MLP/SCOW HAND performed the services as delegated. . documented in this encounter Plan of Treatment Not on file documented as of this encounter Visit Diagnoses Not on filedocumented in this encounter
--- OUTSIDE RECORDS SUMMARY | 2024-12-13 14:24 | XMS_ITS | Referral Summary ---
Author Organization [employer] Address [address] [place] [id number] Care Team Providers Care Hospital Attendant Name Role Phone Unavailable Primary Care Provider Unavailabl e Social History Tobacco Use Types Packs/Day Years Used Date Smoking Tobacco: Never Assessed Comments Unknown Sex and Gender Information Value Date Recorded Sex Assigned at Not on file Legal Sex Female 5:55 PM CDT Gender Identity Not on file Sexual Orientation Not on file Plan of Treatment Not on file
--- OUTSIDE RECORDS SUMMARY | 2024-12-13 14:24 | XMS_ITS | Clinical Summary ---
Author Organization [facility] Address [address] [place] [place] [address] Care Team Providers Care Commercial Leasing Agent Name Role Phone Carmen Ramos Sterling APRN Primary Care Provider [phone] Allergies Active Allergy Reactions Criticality Noted Date Comments Canagliflozin Other - please docum ent in the comment field High 10/15/2019 Kidney function Medications allopurinol (Zyloprim) 100 MG tablet Take 1 tablet (100 mg) by mouth every morning. 4 Active aspirin 81 MG chewable tablet Chew 1 tablet (81 mg) every morning. Active atorvastatin (Lipitor) 80 MG tablet Take 1 tablet (80 mg) by mouth nightly. 4 Active buPROPion SR (Wellbutrin SR) 150 MG 12 hr tablet Take 1 tablet (150 mg) by mouth in the morning and 1 tablet (150 mg) before bedtime. Active carvedilol (Coreg) 25 MG tablet Take 1 tablet (25 mg) by mouth in the morning and 1 tablet (25 mg) in the evening. Take with meals. 4 Active clopidogrel (Plavix) 75 MG tablet Take 1 tablet (75 mg) by mouth every morning. 4 Active ferrous sulfate 325 (65 Fe) MG tablet Take 1 tablet (325 mg) by mouth every evening. Active HYDROcodone-ac etaminophen (Vienna) 10-325 MG tablet Take 1 tablet (10 mg of hydrocodone) by mouth every 6 hours as needed for moderate pain or severe pain. 4 Active Ozempic, 1 MG/DOSE, 4 MG/3ML solution pen-injector Inject 1 mg under the skin 1 (one) time per week. Fridays 4 Active Relistor 150 MG tablet Take 3 tablets by mouth every morning. 4 Active lisinopril 40 MG tablet Take 1 tablet (40 mg) by mouth every morning. 4 Active levothyroxine (Synthroid, Levoxyl) 200 MCG tablet Take 1 tablet (200 mcg) by mouth daily before breakfast. 4 Active pantoprazole (Protonix) 40 MG EC tablet Take 1 tablet (40 mg) by mouth every morning. 4 Active pramipexole (Mirapex) 0.5 MG tablet Take 1 tablet (0.5 mg) by mouth nightly. 4 Active polyethylene glycol (Miralax) 17 g packet Take 17 g by mouth every morning. Active spironolactone (Aldactone) 25 MG tablet Take 1 tablet (25 mg) by mouth every morning. 4 Active collagenase 250 UNIT/GM ointment Apply to toe nightly 30 g 4 Active nystatin (Mycostatin) 853947 UNIT/GM powder Apply twice a day to groin 30 g 4 Active naloxone (Narcan) 4 mg/0.1 mL nasal spray 1. Give 1 spray in nostril for no/slow breathing or cannot wake after opioid use 2. Call 911 3. Repeat in other nostril if symptoms continue 1 each 4 Active Insulin Syringe-Needle U-100 30G X 5/16 0.3 ML misc Use as directed with insulin. 100 each 4 Active Insulin Syringe-Needle U-100 30G X 5/16 0.3 ML misc Use as directed with insulin. 100 each 4 Active Blood Glucose Monitoring Suppl device Test three times daily 1 each 4 Active glucose blood test strip Test three times daily 300 strip 11 4 Active Lancets misc Test three times daily 300 each 11 4 Active Alcohol Sheets (Alcoh-Wipe) sheet Use as directed. 300 each 4 Active acetaminophen (Tylenol) 325 MG tablet Take 2 tablets (650 mg) by mouth every 6 (six) hours. Under [place] law, monthly prescriptions (30 days) can be refilled at 25 days and three-month prescriptions (90 days) at 80 days. Please contact the insurance company with questions if refills are denied. 100 tablet 4 Active Alcohol Swabs (Alcohol Prep) 70 % pads 4 Active Continuous Glucose Sensor (FreeStyle Laureen 3 Sensor) misc 4 Active Docusate Sodium (DSS) 100 MG capsule Take 100 mg by mouth daily. 4 Active nitrofurantoin , macrocrystal-m onohydrate, (Macrobid) 100 MG capsule TAKE 1 CAPSULE BY MOUTH EVERY 12 HOURS FOR 10 DAYS WITH A MEAL/FOOD Active polyethylene glycol (GaviLyte-G) 236 g solution Activ e senna (Senokot) 8.6 MG tablet Take 2 tablets (17.2 mg) by mouth in the morning. 4 Active BLACK COHOSH EXTRACT PO Take by mouth. Acti ve naproxen sodium (Aleve) 220 MG tablet Take 1 tablet (220 mg) by mouth in the morning and 1 tablet (220 mg) in the evening. Take with meals. Active insulin glargine-yfgn 100 UNIT/ML injection vial Inject 7 Units under the skin daily. 5 Active insulin lispro (Admelog) 100 UNIT/ML injection Inject 0-5 Units under the skin in the morning and 0-5 Units at noon and 0-5 Units in the evening. Inject with meals. See After Visit Summary for instructions on how to take your insulin. 5 Active insulin lispro (Admelog) 100 UNIT/ML injection Inject 0-3 Units under the skin 2 (two) times a night. See After Visit Summary for instructions on how to take your insulin. 5 Active Insulin Lispro (Admelog, HumaLOG) 100 UNIT/ML injection vial Inject 2 Units under the skin in the morning and 2 Units at noon and 2 Units in the evening. Inject with meals. 5 Active dapagliflozin (Farxiga) 10 MG tabletIndicati ons:Left Systolic Heart Failure,Type 2 Diabetes Mellitus Take 1 tablet by mouth daily. 5 Active gabapentin (Neurontin) 400 MG capsule Take 1 capsule by mouth in the morning and 1 capsule in the evening and 1 capsule before bedtime. 90 capsule Active Active Problems Problem Noted Date Diagnosed Date Pyogenic arthritis of right knee joint, due to unspecified organism 08/28/2024 Abnormal result of cardiovascular function study 06/26/2024 Atypical chest pain 06/26/2024 Charcot foot due to diabetes mellitus 06/26/2024 Chronic back pain greater than 3 months duration 06/26/2024 Chronic pain 06/26/2024 Closed left ankle fracture 06/26/2024 Constipation 06/26/2024 Depression 06/26/2024 Dyspnea 06/26/2024 Edema of both lower extremities 06/26/2024 Elevated left ventricular end-diastolic pressure (LVEDP) 06/26/2024 Left foot pain 06/26/2024 Metatarsal fracture 06/26/2024 Neuropathy 06/26/2024 Syncope 06/26/2024 Tobacco dependence syndrome 06/26/2024 Trigeminy 06/26/2024 Typical angina 06/26/2024 UTI (urinary tract infection), uncomplicated 12/2024 Wound of left breast 06/26/2024 Foot ulcer, right 06/26/2024 Diabetic foot infection 05/26/2024 Bilateral diabetic foot ulce r associated with secondary diabetes mellitus 05/26/2024 Arthritis 10/02/2020 CAD (coronary atherosclerotic disease) Diabetic ulcer of left foot associated with type 2 diabetes mellitus 10/02/2020 GERD without esophagitis 10/02/2020 Hypertension 10/02/2020 Hyperlipidemia 10/02/2020 Obesity (BMI 30-39.9) 10/02/2020 ERWIN (obstructive sleep apnea) 10/02/2020 Other specified hypothyroidism 10/02/2020 T2DM (type 2 diabetes mellitus) 10/02/2020 Peripheral arterial disease 10/15/2019 Overview (06/26/2024): Added automatically from request for surgery [id number] S/P coronary artery stent placement 06/20/2014 Resolved Problems Problem Noted Date Diagnosed Date Resolved Date Cellulitis of foot 05/29/2024 4 Encounters Date Type Department Care Team Description 11/27/2024 Telephone [place] [facility] [address] [facility] 5th Floor [address] [place] [id number] Scotty Truong MD 09/20/2024 Travel 09/19/2024 Travel 09/13/2024 1:18 PM EDT Anesthesia Event [facility] [address] [place] [address] Julito Escamilla DO Benson, Sabrina Floyd, ORACLE FUSION CONSULTANT 09/13/2024 11:20 AM EDT - 09/13/2024 1:20 PM EDT Surgery [facility] [address] [place] [address] Jean Carlos Vallejo MD Right Knee Arthrotomy and Irrigation, Debridement of Posterior Lower Leg 09/13/2024 Travel 09/12/2024 Travel 08/27/2024 8:35 PM EDT - 09/26/2024 12:19 PM EDT Hospital Encounter [facility] Inpatient [address] [place] [address] Kendal Burton MD Prabhu, MD Pedrito Murray, MD Hussein Rivers, MD Kvng Eden, MD Jorge Nogueira, MD Birgit Rodriguez, MD Belen Kahn, Alex Grajeda MD Pyogenic arthritis of right knee joint, due to unspecified organism ([facility]) (Primary Dx); Acute on chronic anemia; MRSA bacteremia Discharge Disposition: Nursing Home Facility from Last 3 Months Immunizations Immunization Administration Dates Next Due Influenza, injectable, MDCK, preservative free, quadrivalent 03/30/2021 Influenza, injectable, quadrivalent, preservativ e free 07/06/2017,07/03/2016 Influenza, seasonal, injectable, preservative fr ee 04/24/2024 Pneumococcal 20-sandra Conj Vaccine 04/24/2024 Pneumococcal Polysaccharide PPV23 07/03/2016 Zoster, Recombinant 03/30/2021 Social History Tobacco Use Types Packs/Day Years Used Date Smoking Tobacco: Never Passive Smoke Exposure: Never Smokeless Tobacco: Never Tobacco Cessation:Counseling Given: No Alcohol Use Standard Drinks/Week Comments Never 0 [...] any time in the past 12 m [facility], were you homeless or living in a senior care (including now)? Patient unable to answer 08/29/2024 Utilities Answer Date Recorded In the past 12 months has e [employer], gas, oil, or water company threatened to shut off services in your home? Patient unable to answer 08/29/2024 Comments No Sex and Gender Information Value Date Recorded Sex Assigned at Female 06/08/2024 2:14 PM EST Legal Sex Female 8:15 PM EDT Gender Identity Female 06/08/2024 2:14 PM EST Sexual Orientation Not on file Last Filed Vital Signs Vital Sign Reading Time Taken Comments Blood Pressure 134/75 09/26/2024 8:01 AM EDT Pulse 72 09/26/2024 8:01 AM EDT Temperature 36.3 C (97.4 F) 09/26/2024 8:01 AM EDT Respiratory Rate 18 09/25/2024 12:25 AM EDT Oxygen Saturation 97% 09/26/2024 8:01 AM EDT Inhaled Oxygen Concentration - - Weight 74 kg (163 lb 2.3 oz) 09/12/2024 12:16 PM EDT Height 157.5 cm (5' 2.01 ) 09/12/2024 12:16 PM E DT Body Mass Index 29.83 09/12/2024 12:16 PM EDT Plan of Treatment Upcoming Encounters Date Type Department Care Team (Late st Contact Info) Description 01/07/2025 3:[address] [facility] [address] [place] [address] 01/07/2025 4:00 PM EDT Office Visit [facility] [address] [place] [address] Scotty Truong MD [address] [facility] [address] [place] [address] Health Maintenance Due Date Last Done Comments [facility]-Depression Screening 1960 [facility]-Medicare Annual Wellness (AWV) 1962 [facility]-/Child/Adol SDOH Screenings 1962 Diabetes: Dental Exam 1972 [facility]-DTaP,Tdap,and Td Vaccines (1 - Tdap) 1981 CT Colonography 09/03/2007 Colonoscopy 09/03/2007 FIT-DNA 09/03/2007 FIT 09/03/2007 FOBT 09/03/2007 Sigmoidoscopy 09/03/2007 [facility]-Colorectal Cancer Screening 09/03/2007 [facility]-Breast Cancer Screening 2012 [id number] Vaccine (3 - Pfizer risk series) 11/03/2020 10/06/2020, 09/15/2020 [facility]-Zoster Vaccines (2 of 2) 05/25/2021 03/30/2021 [facility]-RSV Vaccine: 60+ Years or (1 - Risk 60-74 years 1-dose series) 2022 [facility]- SDOH Screenings 11/26/2024 [facility]-Adult SDOH Screenings 11/26/2024 05/28/2024 [facility]-Diabetes: Hemoglobin A1C 11/26/202403/2025, 05/26/2024, 04/16/2021, Additional history exists [facility]-Influenza Vaccine Completed 04/24/2024 , 03/30/2021, 07/06/2017, Additional history exists [facility]-Pneumococcal Vaccine: 50+ Years Completed 04/24/2024, 07/03/2016 [facility]-Hepatitis C Screening Completed 05/26/2024 [facility]-Obesity Intervention Completed 025, 08/27/2024, 05/26/2024 [facility]-HIV Screening Completed 09/24/2024, 05/26/2024 HPV Vaccines Aged Out No longer eligi ble based on patient's age to complete this topic [facility]-HIB Vaccines Aged Out No longer e ligible based on patient's age to complete this topic [facility]-Hepatitis A Vaccines Aged Out No longer eligible based on patient's age to complete this topic [facility]-IPV Vaccines Aged Out No longer e ligible based on patient's age to complete this topic [facility]-Rotavirus Vaccines Aged Out No lo nger eligible based on patient's age to complete this topic Goals Goal Patient Goal Type Associated Problems Recent Progress Patient-Stated? Author Autogenerat ed Goal Care Plan Autogenerated Problem No Melany Ha, RN Medical Devices Implanted Type Area Contact Acid Plant Operator Device Identifier Shelf Expiration Date Model / Serial / Lot Pin Pin Right: Foot Stent Stent N/A: Heart Procedures Procedure Name Priority Date/Time Associated Diagnosis Comments POCT GLUCOSE METER UNSOLICITED RESULTS Routine 09/26/2024 9:17 AM EDT POCT GLUCOSE METER UNSOLICITED RESULTS Routine 09/25/2024 8:00 PM EDT POCT GLUCOSE METER UNSOLICITED RESULTS Routine 09/25/2024 5:28 PM EDT POCT GLUCOSE METER UNSOLICITED RESULTS Routine 09/25/2024 12:33 PM EDT POCT GLUCOSE METER UNSOLICITED RESULTS Routine 09/25/2024 8:36 AM EDT POCT GLUCOSE METER UNSOLICITED RESULTS Routine 09/24/2024 8:06 PM EDT POCT GLUCOSE METER UNSOLICITED RESULTS Routine 09/24/2024 5:19 PM EDT HIV 1/2 ANTIBODY/ANTIGEN SCREEN WITH REFLEX TO HIV I/II DIFFERENTIATION Routine 09/24/2024 2:51 PM EDT HIV 1/2 ANTIBODY/ANTIGEN SCREEN W/REFLEX TO HIV 1/2 ANTIBODY DIFFERENTIATION Routine 09/24/2024 2:51 PM EDT COMPREHENSIVE METABOLIC PANEL, PLASMA Timed 09/24/2024 2:51 PM EDT POCT GLUCOSE METER UNSOLICITED RESULTS Routine 09/24/2024 12:27 PM EDT POCT GLUCOSE METER UNSOLICITED RESULTS Routine 09/24/2024 8:30 AM EDT C-REACTIVE PROTEIN, PLASMA Timed 09/24/2024 12:43 AM EDT POCT GLUCOSE METER UNSOLICITED RESULTS Routine 09/23/2024 7:39 PM EDT POCT GLUCOSE METER UNSOLICITED RESULTS Routine 09/23/2024 5:59 PM EDT POCT GLUCOSE METER UNSOLICITED RESULTS Routine 09/23/2024 12:43 PM EDT INSERT PERIPHERAL IV Routine 09/23/2024 11:19 AM EDT BASIC METABOLIC PANEL, PLASMA Routine 09/23/2024 9:32 AM EDT POCT GLUCOSE METER UNSOLICITED RESULTS Routine 09/23/2024 8:35 AM EDT CBC W/O DIFFERENTIAL Routine 09/23/2024 4:54 AM EDT POCT GLUCOSE METER UNSOLICITED RESULTS Routine 09/23/2024 3:19 AM EDT POCT GLUCOSE METER UNSOLICITED RESULTS Routine 09/22/2024 8:41 PM EDT POCT GLUCOSE METER UNSOLICITED RESULTS Routine 09/22/2024 5:46 PM EDT POCT GLUCOSE METER UNSOLICITED RESULTS Routine 09/22/2024 12:27 PM EDT ECG ADULT STAT 09/22/2024 8:57 AM EDT MAGNESIUM, PLASMA Add-On 09/22/2024 8:5 5 AM EDT COMPREHENSIVE METABOLIC PANEL, PLASMA STAT 09/22/2024 8:55 AM EDT CBC W/O DIFFERENTIAL STAT 09/22/2024 8:55 AM EDT POCT GLUCOSE METER UNSOLICITED RESULTS Routine 09/22/2024 8:35 AM EDT POCT GLUCOSE METER UNSOLICITED RESULTS Routine 09/21/2024 8:18 PM EDT POCT GLUCOSE METER UNSOLICITED RESULTS Routine 09/21/2024 6:17 PM EDT WOUND OSTOMY EVAL AND TREAT Routine 09/21/2024 3:08 PM EDT POCT GLUCOSE METER UNSOLICITED RESULTS Routine 09/21/2024 1:06 PM EDT POCT GLUCOSE METER UNSOLICITED RESULTS Routine 09/21/2024 12:24 PM EDT BASIC METABOLIC PANEL, PLASMA Routine 09/21/2024 8:51 AM EDT CBC W/O DIFFERENTIAL Routine 09/21/2024 8:51 AM EDT POCT GLUCOSE METER UNSOLICITED RESULTS Routine 09/21/2024 8:49 AM EDT POCT GLUCOSE METER UNSOLICITED RESULTS Routine 09/20/2024 7:28 PM EDT POCT GLUCOSE METER UNSOLICITED RESULTS Routine 09/20/2024 6:56 PM EDT POCT GLUCOSE METER UNSOLICITED RESULTS Routine 09/20/2024 6:02 PM EDT POCT GLUCOSE METER UNSOLICITED RESULTS Routine 09/20/2024 1:59 PM EDT TROPONIN T, HIGH SENSITIVITY, 2 HOUR, PLASMA Timed 09/20/2024 1:49 PM EDT ECHO, ADULT TRANSTHORACIC COMPLETE STAT 09/20/2024 1:46 PM EDT POCT GLUCOSE METER UNSOLICITED RESULTS Routine 09/20/2024 12:54 PM EDT ECG ADULT STAT 09/20/2024 11:51 AM EDT TROPONIN T, HIGH SENSITIVITY, 0 HOUR, PLASMA, REFLEX TO 2 HOUR STAT 09/20/2024 11:48 AM EDT POCT GLUCOSE METER UNSOLICITED RESULTS Routine 09/20/2024 9:03 AM EDT XR CHEST 1 VIEW Routine 09/20/2024 5:38 AM EDT N-TERMINAL PROBNP, PLASMA Add-On 09/20/2024 1:02 AM EDT CBC WITH AUTO DIFFERENTIAL Routine 09/20/2024 1:02 AM EDT COMPREHENSIVE METABOLIC PANEL, PLASMA Routine 09/20/2024 1:02 AM EDT CREATINE KINASE, TOTAL, PLASMA Timed 09/20/2024 1:02 AM EDT ECG ADULT STAT 09/20/2024 12:27 AM EDT POCT GLUCOSE METER UNSOLICITED RESULTS Routine 09/19/2024 7:54 PM EDT POCT GLUCOSE METER UNSOLICITED RESULTS Routine 09/19/2024 6:[address] ANGIO PULMONARY EMBOLISM STAT 09/19/2024 1:46 PM EDT POCT GLUCOSE METER UNSOLICITED RESULTS Routine 09/19/2024 12:53 PM EDT XR CHEST 1 VIEW STAT 09/19/2024 9:12 AM EDT POCT GLUCOSE METER UNSOLICITED RESULTS Routine 09/19/2024 8:40 AM EDT ECG ADULT STAT 09/19/2024 8:21 AM EDT COMPREHENSIVE METABOLIC PANEL, PLASMA STAT 09/19/2024 8:15 AM EDT CBC W/O DIFFERENTIAL STAT 09/19/2024 8:15 AM EDT POCT GLUCOSE METER UNSOLICITED RESULTS Routine 09/18/2024 8:34 PM EDT POCT GLUCOSE METER UNSOLICITED RESULTS Routine 09/18/2024 5:32 PM EDT POCT GLUCOSE METER UNSOLICITED RESULTS Routine 09/18/2024 12:39 PM EDT POCT GLUCOSE METER UNSOLICITED RESULTS Routine 09/18/2024 10:40 AM EDT POCT GLUCOSE METER UNSOLICITED RESULTS Routine 09/18/2024 8:42 AM EDT POCT GLUCOSE METER UNSOLICITED RESULTS Routine 09/17/2024 8:56 PM EDT POCT GLUCOSE METER UNSOLICITED RESULTS Routine 09/17/2024 5:37 PM EDT COMPREHENSIVE METABOLIC PANEL, PLASMA Timed 09/17/2024 2:46 PM EDT ECG ADULT Routine 09/17/2024 12:49 PM EDT POCT GLUCOSE METER UNSOLICITED RESULTS Routine 09/17/2024 12:33 PM EDT POCT GLUCOSE METER UNSOLICITED RESULTS Routine 09/17/2024 8:38 AM EDT COMPREHENSIVE METABOLIC PANEL, PLASMA Add-On 09/17/2024 3:49 AM EDT CBC W/O DIFFERENTIAL Routine 09/17/2024 3:49 AM EDT CREATINE KINASE, TOTAL, PLASMA Timed 09/17/2024 3:49 AM EDT C-REACTIVE PROTEIN, PLASMA Timed 09/17/2024 3:49 AM EDT POCT GLUCOSE METER UNSOLICITED RESULTS Routine 09/16/2024 8:00 PM EDT POCT GLUCOSE METER UNSOLICITED RESULTS Routine 09/16/2024 6:14 PM EDT POCT GLUCOSE METER UNSOLICITED RESULTS Routine 09/16/2024 12:47 PM EDT POCT GLUCOSE METER UNSOLICITED RESULTS Routine 09/16/2024 9:15 AM EDT CBC W/O DIFFERENTIAL Routine 09/16/2024 4:35 AM EDT POCT GLUCOSE METER UNSOLICITED RESULTS Routine 09/15/2024 7:41 PM EDT POCT GLUCOSE METER UNSOLICITED RESULTS Routine 09/15/2024 5:35 PM EDT POCT GLUCOSE METER UNSOLICITED RESULTS Routine 09/15/2024 12:23 PM EDT BASIC METABOLIC PANEL, PLASMA Routine 09/15/2024 10:44 AM EDT POCT GLUCOSE METER UNSOLICITED RESULTS Routine 09/15/2024 8:34 AM EDT TRANSFUSE RED BLOOD CELLS Routine 09/15/2024 7:20 AM EDT TYPE AND SCREEN Routine 09/15/2024 5:44 AM EDT PREPARE RBC Routine 09/15/2024 5:26 AM EDT CBC WITH AUTO DIFFERENTIAL Routine 09/15/2024 4:28 AM EDT POCT GLUCOSE METER UNSOLICITED RESULTS Routine 09/14/2024 7:44 PM EDT POCT GLUCOSE METER UNSOLICITED RESULTS Routine 09/14/2024 5:32 PM EDT BASIC METABOLIC PANEL, PLASMA Pending Discharge 09/14/2024 3:37 PM EDT POCT GLUCOSE METER UNSOLICITED RESULTS Routine 09/14/2024 12:29 PM EDT POCT GLUCOSE METER UNSOLICITED RESULTS Routine 09/14/2024 8:44 AM EDT HEMOGLOBIN AND HEMATOCRIT, BLOOD Pending Discharge 09/14/2024 8:25 AM EDT COMPREHENSIVE METABOLIC PANEL, PLASMA Routine 09/14/2024 12:47 AM EDT CBC WITH AUTO DIFFERENTIAL Routine 09/14/2024 12:47 AM EDT HEMOGLOBIN AND HEMATOCRIT, BLOOD Timed 09/14/2024 12:47 AM EDT POCT GLUCOSE METER UNSOLICITED RESULTS Routine 09/13/2024 7:45 PM EDT POCT GLUCOSE METER UNSOLICITED RESULTS Routine 09/13/2024 5:39 PM EDT HEMOGLOBIN AND HEMATOCRIT, BLOOD Timed 09/13/2024 4:25 PM EDT POCT GLUCOSE METER UNSOLICITED RESULTS Routine 09/13/2024 4:07 PM EDT FUNGAL CULTURE, STERILE BODY FLUID (NOT CSF) AND ALE Routine 09/13/2024 2:40 PM EDT Pyogenic arthritis of right knee joint, due to unspecified organism (CMS/HCC) AFB CULTURE, NON RESPIRATORY SOURCE AND ACID FAST STAIN Routine 09/13/2024 2:40 PM EDT Pyogenic arthritis of right knee joint, due to unspecified organism (CMS/HCC) ABSCESS CULTURE AND GRAM STAIN Routine 09/13/2024 2:40 PM EDT Pyogenic arthritis of right knee joint, due to unspecified organism (CMS/HCC) ANAEROBIC CULTURE Routine 09/13/2024 2:4 0 PM EDT Pyogenic arthritis of right knee joint, due to unspecified organism (CMS/HCC) FUNGAL CULTURE, TISSUE AND ALE Routine 09/13/2024 2:38 PM EDT AFB CULTURE, NON RESPIRATORY SOURCE AND ACID FAST STAIN Routine 09/13/2024 2:38 PM EDT ANAEROBIC CULTURE Routine 09/13/2024 2:3 8 PM EDT TISSUE CULTURE AND GRAM STAIN Routine 09/13/2024 2:38 PM EDT FUNGAL CULTURE, STERILE BODY FLUID (NOT CSF) AND ALE Routine 09/13/2024 2:33 PM EDT Pyogenic arthritis of right knee joint, due to unspecified organism (CMS/HCC) AFB CULTURE, NON RESPIRATORY SOURCE AND ACID FAST STAIN Routine 09/13/2024 2:33 PM EDT Pyogenic arthritis of right knee joint, due to unspecified organism (CMS/HCC) ABSCESS CULTURE AND GRAM STAIN Routine 09/13/2024 2:33 PM EDT Pyogenic arthritis of right knee joint, due to unspecified organism (CMS/HCC) ANAEROBIC CULTURE Routine 09/13/2024 2:3 3 PM EDT Pyogenic arthritis of right knee joint, due to unspecified organism (CMS/HCC) FUNGAL CULTURE, STERILE BODY FLUID (NOT CSF) AND ALE Routine 09/13/2024 2:11 PM EDT Pyogenic arthritis of right knee joint, due to unspecified organism (CMS/HCC) AFB CULTURE, NON RESPIRATORY SOURCE AND ACID FAST STAIN Routine 09/13/2024 2:11 PM EDT Pyogenic arthritis of right knee joint, due to unspecified organism (CMS/HCC) ABSCESS CULTURE AND GRAM STAIN Routine 09/13/2024 2:11 PM EDT Pyogenic arthritis of right knee joint, due to unspecified organism (CMS/HCC) ANAEROBIC CULTURE Routine 09/13/2024 2:1 1 PM EDT Pyogenic arthritis of right knee joint, due to unspecified organism (CMS/HCC) TRANSFUSE RED BLOOD CELLS Routine 09/13/2024 2:01 PM EDT PB ANESTHESIA PLACEHOLDER Routine 09/13/2024 1:31 PM EDT MD AN ELECTIVE ENDOTRACHEAL AIRWAY Routine 09/13/2024 1:31 PM EDT PREPARE RBC STAT 09/13/2024 1:23 PM EDT INCISION AND DRAINAGE, WOUND, BY ORTHOPEDICS 09/13/2024 1:05 PM EDT Pyogenic arthritis of right knee joint, due to unspecified organism (CMS/[facility]) IRRIGATION AND DEBRIDEMENT, LOWER EXTREMITY 09/13/2024 1:05 PM EDT Pyogenic arthritis of right knee joint, due to unspecified organism (CMS/HCC) POCT GLUCOSE METER UNSOLICITED RESULTS Routine 09/13/2024 12:11 PM EDT HEMOGLOBIN AND HEMATOCRIT, BLOOD Timed 09/13/2024 8:22 AM EDT POCT GLUCOSE METER UNSOLICITED RESULTS Routine 09/13/2024 5:49 AM EDT HEMOGLOBIN AND HEMATOCRIT, BLOOD Timed 09/13/2024 12:19 AM EDT PROTHROMBIN TIME(PT) / INR Routine 09/13/2024 12:19 AM EDT CBC W/O DIFFERENTIAL Routine 09/13/2024 12:19 AM EDT BASIC METABOLIC PANEL, PLASMA Routine 09/13/2024 12:19 AM EDT POCT GLUCOSE METER UNSOLICITED RESULTS Routine 09/12/2024 7:39 PM EDT POCT GLUCOSE METER UNSOLICITED RESULTS Routine 09/12/2024 6:32 PM EDT MR TIBIA FIBULA RIGHT W AND WO IV CONTRAST STAT 09/12/2024 6:15 PM EDT MR FEMUR RIGHT W AND WO IV CONTRAST STAT 09/12/2024 6:15 PM EDT ECG ADULT Routine 09/12/2024 3:45 PM EDT POCT GLUCOSE METER UNSOLICITED RESULTS Routine 09/12/2024 12:03 PM EDT SEDIMENTATION RATE, AUTOMATED STAT 09/12/2024 10:35 AM EDT C-REACTIVE PROTEIN, PLASMA STAT 09/12/2024 10:35 AM EDT HEMOGLOBIN AND HEMATOCRIT, BLOOD Routine 09/12/2024 10:35 AM EDT POCT GLUCOSE METER UNSOLICITED RESULTS Routine 09/12/2024 8:45 AM EDT HEMOGLOBIN AND HEMATOCRIT, BLOOD Routine 09/12/2024 8:09 AM EDT BASIC METABOLIC PANEL, PLASMA Routine 09/12/2024 12:05 AM EDT CBC WITH AUTO DIFFERENTIAL Routine 09/12/2024 12:05 AM EDT HEMOGLOBIN A1C STAT Add-on 08/27/2024 9:15 PM EDT HEPATITIS C ANTIBODY - ED W/REFLEX TO HCV QUANT PCR STAT 05/26/2024 11:59 AM EST from Last 3 Months or Most Recently Relevant to Health Maintenance Results * (ABNORMAL) POCT glucose meter (09/26/2024 9:17 AM EDT) Only the most recent of63 resultswithin the time period is included. POCT Glucose 123(H) 74 - 99 mg/dL 09/26/2024 9:19 AM EDT [facility] Comment:Accuracy of a glucos e result obtained from a capillary whole blood specimen relies upon adequate, non-compromised capillary blood flow. If the capillary glucose result is not consistent with the patient's clinical signs and symptoms, glucose testing should be repeated with either an arterial or venous sample on the glucometer or sent to the main labortory for testing. Comment 09/26/2024 9:19 AM EDT [facility] Electrical Prospecting Supervisor ID Jemma Hector 09/27/19 9:19 AM EDT HEALTH[facility]ARE LAB Device ID [id number] 09/26/2024 9:19 AM EDT [facility] Specimen Type POC Capillary 09/26/2024 9:19 AM EDT [facility] Blood Capillary blood specimen / Unknown 09/26/2024 9:17 AM EDT 09/26/2024 9:19 AM EDT us Alex Glover MD LAB POINT OF CARE TE ST DOCKED DEVICE UNSOLICITED RESULTS Final Result [facility] [address] [place] [address] * HIV 1 & 2 Antibody/Antigen Screen (09/24/2024 2:51 PM EDT) Pathologist [facility] HIV 1 & 2 Antibody/Antigen Screen Non Reactive Non Reactive 09/24/2024 3:46 PM EDT [place] [facility] Comment:Screening for HIV 1 & 2 antibodies, and P24 antigen is NONREACTIVE. No confirmatory testing is required. Blood Venous blood specimen / Unknown Venipuncture / Unknown 09/24/2024 2:51 PM EDT 09/24/2024 3:06 PM EDT us Rohit Patel MD LAB BLOOD ORDERABLES Final Result [facility] [address] [place] [address] * (ABNORMAL) Comprehensive metabolic panel (09/24/2024 2:51 PM EDT) Only the most recent of7 resultswithin the time period is included. Glucose, Plasma 136(H) 74 - 99 mg/dL 09/24/2024 3:34 PM EDT [facility] BUN, Plasma 18 8 - 23 mg/dL 09/24/2024 3:34 PM EDT [facility] Creatinine, Plasma 1.02 0.60 - 1.10 mg/dL 09/24/2024 3:34 PM EDT [facility] BUN/Creatinine Ratio 18 09/24/2024 3:34 PM EDT [facility] Sodium, Plasma 130(L) 136 - 145 mmol/L 09/24/2024 3:34 PM EDT [facility] Potassium, Plasma 4.6 3.6 - 4.9 mmol/L 09/24/2024 3:34 PM EDT [facility] Chloride, Plasma 93(L) 97 - 107 mmol/L 09/24/2024 3:34 PM EDT [facility] CO2, Plasma 26 22 - 29 mmol/L 09/24/2024 3:34 PM EDT [facility] Anion Gap 11 6 - 16 mmol/L 09/24/2024 3:34 PM EDT [facility] Total Calcium, Plasma 8.8(L) 8.9 - 10.2 mg/dL 09/24/2024 3:34 PM EDT [facility] Total Protein 6.9 6.3 - 7.9 g/dL 09/24/2024 3:34 PM EDT [facility] Albumin, Plasma 2.4(L) 3.5 - 5.2 g/dL 09/24/2024 3:34 PM EDT [facility] AST, Plasma 38(H) 10 - 35 U/L 09/24/2024 3:34 PM EDT [facility] Comment:Hemolyzed, result ma y be falsely increased. ALT, Plasma 14 10 - 35 U/L 09/24/2024 3:34 PM EDT [facility] Alkaline Phosphatase, Plasma 210(H) 46 - 142 U/L 09/24/2024 3:34 PM EDT [facility] Total Bilirubin, Plasma 0.3 0.2 - 1.1 mg/dL 09/24/2024 3:34 PM EDT [facility] eGFRcr 62.3 mL/min/1.7 3m*2 09/24/2024 3:34 PM EDT [facility] Comment:Reported eGFRcr in m L/min/1.73m2 is based the CKD-EPI 2020 equation that does not use a race coefficient. Blood Venous blood specimen / Unknown Venipuncture / Unknown 09/24/2024 2:51 PM EDT 09/24/2024 3:06 PM EDT Mariana Calderon MD LAB BLOOD ORDERABLES Final Resu Performing Organization Address [facility] Co de Phone Number [facility] [address] [place] [address] * (ABNORMAL) C-reactive protein (09/24/2024 12:43 AM EDT) Only the most recent of3 resultswithin the time period is included. CRP, Plasma 75.3(H) <=8.0 mg/L 09/24/2024 1:24 AM EDT [facility] Blood Venous blood specimen / Unknown Venipuncture / Unknown 09/24/2024 12:43 AM EDT 09/24/2024 12:52 AM EDT Narrative [facility] - 09/24/2024 1:24 AM EDT This CRP test is appropriate for assessment of infection, systemic inflammation and/or tissue injury. To assess cardiovascular disease risk order high sensitivity CRP (CRPH). Linda Savage MD LAB BLOOD ORDERABLES Final Resu Performing Organization Address [facility] [place] [place] [address] * PERIPHERAL IV (SMARTFORM LINK) (09/23/2024 11:19 AM EDT) Narrative Sadie Lopez RN - 09/23/2024 11:19 AM EDT Sadie Lopez RN 09/23/2024 11:19 AM Insert peripheral IV Performed by: Sadie Lopez RN Authorized by: Rohit Patel MD Hand hygiene: Hand hygiene performed prior to insertion Inserted using aseptic techniques: Yes Preparation: Skin prepped with chg Orientation: Left Location: Forearm Catheter placed: Peripheral IV Catheter size: 20g/2.00in Line Technique: Ultrasound Guidance Number of attempts: 1 IV flushes: Without difficulty and positive blood return noted and IV luer locked Patient tolerance: Patient tolerated the procedure well, age appropriate response and there were no complications IV site covered with: Transparent semipermeable dressing Education provided to: Patient us Rohit Patel MD IV THERAPY ORDERABLES Final Result * (ABNORMAL) Basic metabolic panel (09/23/2024 9:32 AM EDT) Only the most recent of6 resultswithin the time period is included. Glucose, Plasma 136(H) 74 - 99 mg/dL 09/23/2024 10:53 AM EDT [facility] BUN, Plasma 16 8 - 23 mg/dL 09/23/2024 10:53 AM EDT [facility] Creatinine, Plasma 1.01 0.60 - 1.10 mg/dL 09/23/2024 10:53 AM EDT [facility] BUN/Creatinine Ratio 16 09/23/2024 10:53 AM EDT [facility] Sodium, Plasma 129(L) 136 - 145 mmol/L 09/23/2024 10:53 AM EDT [facility] Potassium, Plasma 4.7 3.6 - 4.9 mmol/L 09/23/2024 10:53 AM EDT [facility] Chloride, Plasma 92(L) 97 - 107 mmol/L 09/23/2024 10:53 AM EDT [facility] CO2, Plasma 21(L) 22 - 29 mmol/L 09/23/2024 10:53 AM EDT [facility] Anion Gap 16 6 - 16 mmol/L 09/23/2024 10:53 AM EDT [facility] Total Calcium, Plasma 9.2 8.9 - 10.2 mg/dL 09/23/2024 10:53 AM EDT [facility] eGFRcr 63.1 mL/min/1.7 3m*2 09/23/2024 10:53 AM EDT [facility] Comment:Reported eGFRcr in m L/min/1.73m2 is based the CKD-EPI 2020 equation that does not use a race coefficient. Blood Venous blood specimen / Unknown Venipuncture / Unknown 09/23/2024 9:32 AM EDT 09/23/2024 9:39 AM EDT us Rohit Patel MD LAB BLOOD ORDERABLES Final Result [facility] [address] [place] [address] * (ABNORMAL) CBC W/O Differential (09/23/2024 4:54 AM EDT) Only the most recent of7 resultswithin the time period is included. WBC Count 9.39 3.70 - 10.30 10*3/uL LAB HEMATOLOGY METHOD 09/23/2024 5:22 AM EDT [facility] RBC Count 3.27(L) 3.90 - 5.20 10*6/uL LAB HEMATOLOGY METHOD 09/23/2024 5:22 AM EDT [facility] HGB 8.9(L) 11.2 - 15.7 g/dL LAB HEMATOLOGY METHOD 09/23/2024 5:22 AM EDT [facility] HCT 28.8(L) 34.0 - 45.0 % LAB HEMATOLOGY METHOD 09/23/2024 5:22 AM EDT [facility] Platelet Count 378(H) 155 - 369 10*3/uL LAB HEMATOLOGY METHOD 09/23/2024 5:22 AM EDT [facility] MCV 88 79 - 98 fL LAB HEMATOLOGY METHOD 09/23/2024 5:22 AM EDT [facility] MCH 27.2 26.0 - 32.0 pg LAB HEMATOLOGY METHOD 09/23/2024 5:22 AM EDT [facility] MCHC 30.9 30.7 - 35.5 g/dL LAB HEMATOLOGY METHOD 09/23/2024 5:22 AM EDT [facility] RDW 16.1(H) 11.5 - 14.5 % LAB HEMATOLOGY METHOD 09/23/2024 5:22 AM EDT [facility] MPV 8.4(L) 8.8 - 12.5 fL LAB HEMATOLOGY METHOD 09/23/2024 5:22 AM EDT [facility] nRBC 0.0 <=0.0 per 100 WBCs LAB HEMATOLOGY METHOD 09/23/2024 5:22 AM EDT [facility] Blood Venous blood specimen / Unknown Venipuncture / Unknown 09/23/2024 4:54 AM EDT 09/23/2024 5:05 AM EDT Rohit Patel MD LAB BLOOD ORDERABLES Final Result [facility] [address] [place] [address] * ECG Adult (09/22/2024 8:57 AM EDT) Only the most recent of6 resultswithin the time period is included. EKG DIAGNOSIS CLASS Abnormal MUSE ECG Ventricular Rate 72 BPM MUSE ECG Atrial Rate 72 BPM MUSE ECG MD Interval 192 ms MUSE ECG QRSD Interval 136 ms MUSE ECG QT Interval 448 ms MUSE ECG QTC Interval 490 ms MUSE ECG P Dewar -4 degrees MUSE ECG R Dewar 68 degrees MUSE ECG T Wave Dewar 90 degrees MUSE ECG Diagnosis Sinus rhythm with occasional premature ventricular complexes MUSE ECG Diagnosis Right bundle branch block MUSE ECG Diagnosis Abnormal ECG MUSE ECG Diagnosis MUSE ECG Diagnosis Confirmed by Barrett Tinsley ([id number]) on 09/24/2024 10:56:22 AM MUSE ECG 09/22/2024 8:57 AM EDT 09/24/2024 10:56 AM EDT Rohit Patel MD ECG ORDERABLES Final Resul t Performing Organization Address City/[facility] Co de Phone Number MUSE ECG * (ABNORMAL) Magnesium (09/22/2024 8:55 AM EDT) Pathologist [facility] Magnesium, Plasma 1.7(L) 1.9 - 2.4 mg/dL 09/22/2024 2:32 PM EDT [facility] Blood Venous blood specimen / Unknown Venipuncture / Unknown 09/22/2024 8:55 AM EDT 09/22/2024 8:59 AM EDT Rohit Patel MD LAB BLOOD ORDERABLES Final Result [facility] [address] [place] [address] * (ABNORMAL) Troponin T, High Sensitivity, 2 Hour, Plasma (09/20/2024 1:49 PM EDT) Troponin T, High Sensitivity, 2 Hour 42(H) <14 ng/L 09/20/2024 2:30 PM EDT [facility] Troponin Delta 0 <10 ng/L 09/20/2024 2:30 PM EDT [facility] Troponin Delta Interpretation Not Significant 09/20/2024 2:30 PM EDT [facility] Comment:Not Significant. No acute change in troponin observed between the baseline and 2 hour samples. Blood Venous blood specimen / Unknown Venipuncture / Unknown 09/20/2024 1:49 PM EDT 09/20/2024 2:00 PM EDT us Jillian BE LAB BLOOD ORDERABLES Final Resu lt [facility] [address] [place] [address] * ECHO, ADULT TRANSTHORACIC COMPLETE (09/20/2024 1:46 PM EDT) [facility] BSA 1.80 m2 TORI ISCV Height 157.5 TORI ISCV Weight 78.5 TORI ISCV LVIDd 47 mm TORI ISCV LVIDs 38 mm TORI ISCV IVSd 8 mm TORI ISCV LVPWd 11 mm TORI ISCV LV MASS(C)D 153 g TORI ISCV LV RWT 0.40 mm TORI ISCV LV EDV (3D HM) 167 mL TORI ISCV LV ESV (3D HM) 101 mL TORI ISCV LV EF (3D HM) 40 % TORI ISCV MV E Vmax 98.0 cm/s TORI ISCV MV A Vmax 78.1 cm/s TORI ISCV MV E/A 1.3 cm/s TORI ISCV TR Vmax 244.8 cm/s TORI ISCV TR Max PG 24 mmHG TORI ISCV PA acc time 120 msec TORI ISCV mean PAP 25 mmHg TORI ISCV MV dec time 150 ms TORI ISCV MV P1/2t 44 ms TORI ISCV MVA(P1/2t) 5.1 cm2 TORI ISCV PA MD(ACCEL) 23.7 mmHg TORI ISCV Ao Root Diam 28 mm TORI ISCV LV Lat e' Velocity 8.2 cm/s TORI ISCV LV Sept e' Alex 4.2 cm/s TORI ISCV Lat E/e' 12.0 TORI ISCV Sep E/e' 23.3 TORI ISCV Avg E/e' 17.6 TORI ISCV RV SANTY 27.3 cm2 TORI ISCV RV PRADIP 20.4 cm2 TORI ISCV RV FAC_phl 25 % TORI ISCV RVSP 39 mmHg TORI ISCV RAP systole 15 mmHg TORI ISCV Anatomical Region Laterality Modality Echocardiography Narrative 09/20/2024 5:09 PM EDT Left Ventricle: The left ventricular systolic function is mild to moderately reduced. The LVEF as measured by Heart Model 3D volume is 40%. The diastolic function is abnormal. There is grade II (moderate) diastolic dysfunction. The left ventricular filling pressure is elevated. Right Ventricle: The right ventricular systolic function is moderately reduced. Right ventricular systolic pressure is mildly elevated (35-50mmHg). The estimated right ventricular systolic pressure is 39 mmHg. No significant valvular stenosis or regurgitation Pericardium: No pericardial effusion. Compared to the most recently available prior study, and allowing for differences in image quality and technique, LV function appears decreased. Septic arthritis of knee s/p I&D 08/28, SOA, CAD stent 2014 Left Ventricle Based on the linear dimension and/or 2D volumes, the left ventricle is normal in size. There is normal left ventricular myocardial thickness and mass. The left ventricular systolic function is mild to moderately reduced. The LVEF as measured by Heart Model 3D volume is 40%. The diastolic function is abnormal. There is grade II (moderate) diastolic dysfunction. The left ventricular filling pressure is elevated. There is global hypokinesis of the left ventricle. The anterior wall is hypokinetic. Right Ventricle The right ventricle is mildly dilated. The right ventricular systolic function is moderately reduced. The estimated global right ventricular systolic function based upon the focused RV view fractional area change is reduced (<35%). Right ventricular systolic pressure is mildly elevated (35-50mmHg). The estimated right ventricular systolic pressure is 39 mmHg. Left Atrium The left atrium is dilated by visual assessment. The interatrial septum is intact with no evidence for an atrial septal defect. Right Atrium The right atrium is dilated by visual assessment. IVC/SVC Based on the IVC size and respiratory variation, the estimated right atrial pressure is 15mmHg. Mitral Valve There is mild posterior mitral annular calcification. There is mild to moderate mitral regurgitation. There is no mitral stenosis. Tricuspid Valve The tricuspid valve is normal in appearance. There is mild tricuspid regurgitation. There is no tricuspid stenosis. Aortic Valve The aortic valve appears to be trileaflet. The cusp(s) are thickened. There is no valvular regurgitation. There is no hemodynamically significant valvular aortic stenosis. Pulmonic Valve The pulmonic valve is grossly normal. There is mild pulmonic regurgitation. There is no pulmonic stenosis. Pericardium No pericardial effusion. Great Vessels The aortic root is normal in size. The sinus of Valsalva (aortic root) diameter is 28 mm by inner edge to inner edge method. The main pulmonary artery is not well visualized. Study Details A complete transthoracic echocardiogram using two-dimensional (2D), m-mode, color and spectral flow Doppler imaging was performed. During the study the apical, parasternal, subcostal and suprasternal view was captured. Overall the study quality was adequate. The study was technically difficult. Heart rate was normal. Height: 157.5 cm. Weight: 78.5 kg. BSA: 1.80 m2. The heart rhythm during this exam was most suggestive of a sinus rhythm. Study Recommendation Compared to the most recently available prior study, and allowing for differences in image quality and technique, LV function appears decreased. Rohit Patel MD CV ECHO PROCEDURES Final Re sult * (ABNORMAL) Troponin T, High Sensitivity, 0 Hour Plasma, Reflex to 2 Hour (09/20/2024 11:48 AM EDT) Troponin T, High Sensitivity, 0 Hour 42(H) <14 ng/L 09/20/2024 12:54 PM EDT [facility] Blood Venous blood specimen / Unknown Venipuncture / Unknown 09/20/2024 11:48 AM EDT 09/20/2024 12:22 PM EDT Jillian BE LAB BLOOD ORDERABLES Final Resu lt [facility] [address] [place] [address] * XR Chest 1 View (09/20/2024 5:38 AM EDT) Only the most recent of2 resultswithin the time period is included. Anatomical Region Laterality Modality Chest Digital Radiogra phy Impressions 09/20/2024 7:18 AM EDT Worsening pulmonary vascular congestion and bilateral pleural effusions. No pneumothorax. CRITICAL RESULT: No. COMMUNICATION: Per this written report. Drafted by Daren Lopez MD on 09/20/2024 7:17 AM Final report signed by Daren Lopez MD on 09/20/2024 7:18 AM Narrative 09/20/2024 7:18 AM EDT CLINICAL INDICATION: pleural effusion eval TECHNIQUE: XR CHEST 1 VIEW COMPARISON: 09/19/2024. FINDINGS: Bilateral pleural effusions and bibasilar airspace disease. Pulmonary vascular congestion. Right upper extremity PICC. No pneumothorax. Procedure Note Daren Lopez MD - 09/20/2024 CLINICAL INDICATION: pleural effusion eval TECHNIQUE: XR CHEST 1 VIEW COMPARISON: 09/19/2024. FINDINGS: Bilateral pleural effusions and bibasilar airspace disease. Pulmonaryvascular congestion. Right upper extremity PICC. No pneumothorax. IMPRESSION: Worsening pulmonary vascular congestion and bilateral pleural effusions.No pneumothorax. CRITICAL RESULT: No. COMMUNICATION: Per this written report. Drafted by Daren Lopez MD on 09/20/2024 7:17 AM Final report signed by Daren Lopez MD on 09/20/2024 7:18 AM Rohit Patel MD IMG XR PROCEDURES Final Res ult * (ABNORMAL) Creatine Kinase (CK), Total (09/20/2024 1:02 AM EDT) Only the most recent of2 resultswithin the time period is included. Creatine Kinase, Plasma 33(L) 37 - 168 U/L 09/20/2024 1:42 AM EDT [facility] Blood Venous blood specimen / Unknown Venipuncture / Unknown 09/20/2024 1:02 AM EDT 09/20/2024 1:08 AM EDT aMriana Calderon MD LAB BLOOD ORDERABLES Final Resu lt [facility] [address] [place] [address] * (ABNORMAL) N-Terminal Probnp (09/20/2024 1:02 AM EDT) [facility] N-Terminal, PROBNP, Plasma 26,193(H) 0 - 899 pg/mL 09/20/2024 11:03 AM EDT [facility] Blood Venous blood specimen / Unknown Venipuncture / Unknown 09/20/2024 1:02 AM EDT 09/20/2024 1:08 AM EDT us Rohit Patel MD LAB BLOOD ORDERABLES Final Result Performing Organization Address [facility]/ZIP Co de Phone Number [facility] [address] [place] [address] * (ABNORMAL) CBC and differential (09/20/2024 1:02 AM EDT) Only the most recent of4 resultswithin the time period is included. [facility] WBC Count 7.92 3.70 - 10.30 10*3/uL LAB HEMATOLOGY METHOD 09/20/2024 1:12 AM EDT [facility] RBC Count 2.62(L) 3.90 - 5.20 10*6/uL LAB HEMATOLOGY METHOD 09/20/2024 1:12 AM EDT [facility] HGB 7.3(L) 11.2 - 15.7 g/dL LAB HEMATOLOGY METHOD 09/20/2024 1:12 AM EDT [facility] HCT 23.4(L) 34.0 - 45.0 % LAB HEMATOLOGY METHOD 09/20/2024 1:12 AM EDT [facility] Platelet Count 341 155 - 369 10*3/uL LAB HEMATOLOGY METHOD 09/20/2024 1:12 AM EDT [facility] MCV 89 79 - 98 fL LAB HEMATOLOGY METHOD 09/20/2024 1:12 AM EDT [facility] MCH 27.9 26.0 - 32.0 pg LAB HEMATOLOGY METHOD 09/20/2024 1:12 AM EDT [facility] MCHC 31.2 30.7 - 35.5 g/dL LAB HEMATOLOGY METHOD 09/20/2024 1:12 AM EDT [facility] RDW 15.9(H) 11.5 - 14.5 % LAB HEMATOLOGY METHOD 09/20/2024 1:12 AM EDT [facility] MPV 8.5(L) 8.8 - 12.5 fL LAB HEMATOLOGY METHOD 09/20/2024 1:12 AM EDT [facility] nRBC 0.0 <=0.0 per 100 WBCs LAB HEMATOLOGY METHOD 09/20/2024 1:12 AM EDT [facility] Differential Type Automated LAB HEMATOLOGY METHOD 09/20/2024 1:12 AM EDT [facility] Neutrophils % 60 % LAB HEMATOLOGY METHOD 09/20/2024 1:12 AM EDT [facility] Lymphocytes % 23 % LAB HEMATOLOGY METHOD 09/20/2024 1:12 AM EDT [facility] Monocytes % 14 % LAB HEMATOLOGY METHOD 09/20/2024 1:12 AM EDT [facility] Eosinophils % 1 % LAB HEMATOLOGY METHOD 09/20/2024 1:12 AM EDT [facility] Basophils % 0 % LAB HEMATOLOGY METHOD 09/20/2024 1:12 AM EDT [facility] Immature Granulocytes % 2 % LAB HEMATOLOGY METHOD 09/20/2024 1:12 AM EDT [facility] Neutrophils Absolute 4.81 1.60 - 6.10 10*3/uL LAB HEMATOLOGY METHOD 09/20/2024 1:12 AM EDT [facility] Lymphocytes Absolute 1.82 1.20 - 3.90 10*3/uL LAB HEMATOLOGY METHOD 09/20/2024 1:12 AM EDT [facility] Monocytes Absolute 1.07(H) 0.30 - 0.90 10*3/uL LAB HEMATOLOGY METHOD 09/20/2024 1:12 AM EDT [facility] Eosinophils Absolute 0.07 0.00 - 0.50 10*3/uL LAB HEMATOLOGY METHOD 09/20/2024 1:12 AM EDT [facility] Basophils Absolute 0.03 0.00 - 0.10 10*3/uL LAB HEMATOLOGY METHOD 09/20/2024 1:12 AM EDT [facility] Immature Granulocytes Absolute 0.12(H) 0.00 - 0.06 10*3/uL LAB HEMATOLOGY METHOD 09/20/2024 1:12 AM EDT [facility] Blood Venous blood specimen / Unknown Venipuncture / Unknown 09/20/2024 1:02 AM EDT 09/20/2024 1:07 AM EDT Narrative [facility] - 09/20/2024 1:12 AM EDT Therapeutic decision making should be based on absolute values, rather than percentages. us Rohit Patel MD LAB BLOOD ORDERABLES Final Result [facility] [address] [place] [address] * CT Angio Pulmonary Embolism (09/19/2024 1:46 PM EDT) Anatomical Region Laterality Modality Chest Computed Tomogra phy Impressions 09/19/2024 1:54 PM EDT 1. No pulmonary embolism. 2. Small bilateral pleural effusions. 3. Right upper lobe consolidation and scattered airspace opacities, most concerning for infection. Edema is less likely given the asymmetry and lack of interstitial abnormality. CRITICAL RESULT: No. COMMUNICATION: Per this written report. Drafted by Óscar Zazueta MD on 09/19/2024 1:46 PM Final report signed by Óscar Zazueta MD on 09/19/2024 1:54 PM Narrative 09/19/2024 1:54 PM EDT CLINICAL INDICATION: Dyspnea, chronic, unclear etiology; diffuse interstitial lung disease. TECHNIQUE: Imaging of the chest was performed from thoracic inlet through upper abdomen, using spiral technique, with administration of IV contrast per the pulmonary angiogram protocol. 100 mL of Omnipaque-350 were administered intravenously. Coronal MIP images were reconstructed from this dataset. Total DLP (Dose-Length Product): 351.41 mGy.cm. Please note: The reported value represents the total of one or more individual components during the CT acquisition on this date and at this time, and as such, the same value may appear in more than one CT report depending on the interpreting/reporting physicians. COMPARISON: None. FINDINGS: Pulmonary Arteries/Vessels: No pulmonary embolism. Right Heart Strain: Absent. Mediastinum and Pleura: Multiple borderline enlarged mediastinal lymph nodes, nonspecific, likely reactive. Small bilateral pleural effusions, nonloculated. Lungs: Consolidation noted in the right upper lobe, with some scattered groundglass opacities noted elsewhere in both upper lobes. Compressive atelectasis in the lower lobes associated with the effusions. No findings are seen which are suspicious for malignancy. Upper Abdomen: No suspicious lesions in the partially visualized upper abdomen. Musculoskeletal: No suspicious lytic or sclerotic lesion. Procedure Note Óscar Zazueta MD - 09/19/2024 CLINICAL INDICATION: Dyspnea, chronic, unclear etiology; diffuse interstitial lung disease. TECHNIQUE: Imaging of the chest was performed from thoracic inlet through upperabdomen, using spiral technique, with administration of IV contrast perthe pulmonary angiogram protocol. 100 mL of Omnipaque-350 wereadministered intravenously. Coronal MIP images were reconstructed fromthis dataset. Total DLP (Dose-Length Product): 351.41 mGy.cm. Please note: The reportedvalue represents the total of one or more individual components during theCT acquisition on this date and at this time, and as such, the same valuemay appear in more than one CT report depending on theinterpreting/reporting physicians. COMPARISON: None. FINDINGS: Pulmonary Arteries/Vessels: No pulmonary embolism. Right Heart Strain: Absent. Mediastinum and Pleura: Multiple borderline enlarged mediastinal lymphnodes, nonspecific, likely reactive. Small bilateral pleural effusions,nonloculated. Lungs: Consolidation noted in the right upper lobe, with some scatteredgroundglass opacities noted elsewhere in both upper lobes. Compressiveatelectasis in the lower lobes associated with the effusions. No findingsare seen which are suspicious for malignancy. Upper Abdomen: No suspicious lesions in the partially visualized upperabdomen. Musculoskeletal: No suspicious lytic or sclerotic lesion. IMPRESSION: 1. No pulmonary embolism. 2. Small bilateral pleural effusions. 3. Right upper lobe consolidation and scattered airspace opacities, mostconcerning for infection. Edema is less likely given the asymmetry andlack of interstitial abnormality. CRITICAL RESULT: No. COMMUNICATION: Per this written report. Drafted by Óscar Zazueta MD on 09/19/2024 1:46 PM Final report signed by Óscar Zazueta MD on 09/19/2024 1:54 PM Rohit Patel MD IMG CT PROCEDURES Final Res ult * Transfuse RBC (09/15/2024 10:28 AM EDT) Only the most recent of2 resultswithin the time period is included. us Mariana Calderon MD BLOOD TRANSFUSION ORDERABLES Fi nal Result * Type and Screen (09/15/2024 5:44 AM EDT) ABO/Rh A Positive 09/15/2024 5:33 AM EDT [facility] Comment:Patient types mixed field due to transfused cells Antibody Screen Negative 09/15/2024 5:33 AM EDT [facility] Specimen Expiration 09/18/2024 23:59 09/15/2024 5:33 AM EDT [facility] Blood Venous blood specimen / Unknown Venipuncture / Unknown 09/15/2024 5:44 AM EDT 09/15/2024 5:49 AM EDT us Mariana Calderon MD LAB BLOOD BANK TEST ORDERABLES Final Result Performing Organization Address City/[facility] Co de Phone Number BLOOD BANK [address] * Prepare Leukocyte Reduced RBC: 1 Units (09/15/2024 5:26 AM EDT) Only the most recent of2 resultswithin the time period is included. Product Code [id number] CH BLOO D BANK Dispense Status Transfused BLOOD BANK Blood Expiration Date [id number] BLOOD BANK Unit Number [id number] CH B LOOD BANK Product Blood Type 6200 BLOOD BANK Blood Type A+ BLOOD BANK Crossmatch Compatible BLOOD BANK Other us Mariana Calderon MD BLOOD BANK PRODUCT ORDERABLES F inal Result Performing Organization Address [facility] Co de Phone Number BLOOD BANK [address] * (ABNORMAL) Hemoglobin and Hematocrit, Blood (09/14/2024 8:25 AM EDT) Only the most recent of7 resultswithin the time period is included. HGB 7.3(L) 11.2 - 15.7 g/dL LAB HEMATOLOGY METHOD 09/14/2024 8:47 AM EDT [facility] HCT 23.0(L) 34.0 - 45.0 % LAB HEMATOLOGY METHOD 09/14/2024 8:47 AM EDT [facility] Blood Venous blood specimen / Unknown Venipuncture / Unknown 09/14/2024 8:25 AM EDT 09/14/2024 8:38 AM EDT Mariana Calderon MD LAB BLOOD ORDERABLES Final Resu lt Performing Organization Address City/[facility]/ZIP Co de Phone Number [facility] [address] [place] [address] * Fungal Culture, Sterile Body Fluid (NOT CSF) and ALE (09/13/2024 2:40 PM EDT) Only the most recent of3 resultswithin the time period is included. Culture No Fungal Growth at 3 Weeks 10/05/2024 8:34 AM EDT [facility] ALE No fungal elements seen 10/05/2024 8:34 AM EDT [facility] Abscess Structure of right lower limb / Unknown 09/13/2024 2:40 PM EDT 09/13/2024 3:39 PM EDT Comment:Pre-op diagnosis: Pyogenic arthritis of right knee joint, due to unspecified organism (CMS/[facility]) [M00.9] Jean Carlos Vallejo MD LAB MICROBIOLOGY - GENERAL ORDERABLES Final Result Performing Organization Address City/[facility]/ZIP Co de Phone Number [facility] [address] [place] [address] * AFB Culture, Non Respiratory Source and Acid Fast Stain (09/13/2024 2:40 PM EDT) Only the most recent of4 resultswithin the time period is included. AFB Culture No Mycobacterial Growth at 6 Weeks 10/26/2024 1:34 PM EDT [facility] Acid Fast Stain No acid fast bacilli seen 10/26/2024 1:34 PM EDT [facility] Abscess Structure of right lower limb / Unknown 09/13/2024 2:40 PM EDT 09/13/2024 3:39 PM EDT Comment:Pre-op diagnosis: Pyogenic arthritis of right knee joint, due to unspecified organism (CMS/HCC) [M00.9] Jean Carlos Vallejo MD LAB MICROBIOLOGY - GENERAL ORDERABLES Final Result Performing Organization Address [facility] Co de Phone Number [facility] [address] [place] [address] * Abscess Culture and Gram Stain (09/13/2024 2:40 PM EDT) Only the most recent of3 resultswithin the time period is included. Culture No growth at day 4 2024 1:35 PM EDT [facility] Gram Stain Result Moderate Polymorphonuclear leukocytes 09/17/2024 1:35 PM EDT [facility] Gram Stain Result No organisms seen 09/17/2024 1:35 PM EDT [facility] Abscess Structure of right lower limb / Unknown 09/13/2024 2:40 PM EDT 09/13/2024 3:39 PM EDT Comment:Pre-op diagnosis: Pyogenic arthritis of right knee joint, due to unspecified organism (CMS/HCC) [M00.9] Jean Carlos Vallejo MD LAB MICROBIOLOGY - GENERAL ORDERABLES Final Result Performing Organization Address [facility] Co de Phone Number [facility] [address] [place] [address] * Anaerobic Culture (09/13/2024 2:40 PM EDT) Only the most recent of4 resultswithin the time period is included. Culture No growth at day 4 09/20/2024 10:31 AM EDT [facility] Abscess Structure of right lower limb / Unknown 09/13/2024 2:40 PM EDT 09/13/2024 3:39 PM EDT Comment:Pre-op diagnosis: Pyogenic arthritis of right knee joint, due to unspecified organism (CMS/[facility]) [M00.9] us Jean Carlos Vallejo MD LAB MICROBIOLOGY - GENERAL ORDERABLES Final Result Performing Organization Address City/[facility]/ZIP Co de Phone Number [facility] [address] [place] [address] * Fungal Culture, Tissue and ALE (09/13/2024 2:38 PM EDT) Culture Reading Mycological 4 Weeks No Fungal Growth at 4 Weeks 10/12/2024 8:32 AM EDT [facility] ALE No fungal elements seen 10/12/2024 8:32 AM EDT [facility] Tissue Topography unknown / Unknown Non-blood Collection / Unknown 09/13/2024 2:38 PM EDT 09/13/2024 4:50 PM EDT us Mariana Calderon MD LAB MICROBIOLOGY - GENERAL ORDE RABSAL Final Result Performing Organization Address City/[facility]/ZIP Co de Phone Number [facility] [address] [place] [address] * Tissue Culture and Gram Stain (09/13/2024 2:38 PM EDT) Culture No growth at day 4 2024 1:35 PM EDT [facility] Gram Stain Result No organisms seen 09/17/2024 1:35 PM EDT [facility] Gram Stain Result No polymorphonuclear leukocytes seen 09/17/2024 1:35 PM EDT [facility] Tissue Topography unknown / Unknown Non-blood Collection / Unknown 09/13/2024 2:38 PM EDT 09/13/2024 4:50 PM EDT us Mariana Calderon MD LAB MICROBIOLOGY - GENERAL ORDE RABSAL Final Result Performing Organization Address City/[facility]/ZIP Co de Phone Number [facility] [address] [place] [address] * MD AN ELECTIVE ENDOTRACHEAL AIRWAY, PB ANESTHESIA PLACEHOLDER (09/13/2024 1:31 PM EDT) Narrative Caron Hodges CRNA - 09/13/2024 1:31 PM EDT Caron Hodges CRNA 09/13/2024 1:43 PM Airway Date/Time: 09/13/2024 1:31 PM Reason: elective Airway not difficult General Information and Staff Patient location during procedure: OR TRANSIT DEPARTMENT CLERK: Caron Hodges CRNA Performed: TRANSIT DEPARTMENT CLERK Patient Condition Indications for airway management: anesthesia Patient position: sniffing Final Airway Details Final airway type: endotracheal airway Successful airway: ETT Cuffed: yes Successful intubation technique: direct laryngoscopy Adjuncts used in placement: intubating stylet Endotracheal tube insertion site: oral Blade: Kingsley ETT size (mm): 7.0 Cormack-Lehane Classification: grade IIa - partial view of glottis Placement verified by: chest auscultation and capnometry Measured from: lips Additional Comments Atraumatic. No change to dentition. Julito Escamilla DO ANESTHESIA ORDERABLES Final Re sult * (ABNORMAL) Prothrombin Time/INR (09/13/2024 12:19 AM EDT) Pathologist [facility] Prothrombin Time 17.8(H) 12.0 - 14.3 sec LAB COAGULATION METHOD 09/13/2024 12:48 AM EDT [facility] INR 1.5(H) 0.9 - 1.1 LAB COAGULATION METHOD 09/13/2024 12:48 AM EDT [facility] Blood Venous blood specimen / Unknown Venipuncture / Unknown 09/13/2024 12:19 AM EDT 09/13/2024 12:26 AM EDT Narrative [facility] - 09/13/2024 12:48 AM EDT OPTIMAL INR RANGES FOR PATIENT ON ORAL ANTICOAGULANT THERAPY Prevention of venous thromboembolism INR 2.0 to 3.0 In patients with heart disease: Atrial fibrillation INR 2.0 to 3.0 Valvular heart disease INR 2.0 to 3.0 Tissue heart valves INR 2.0 to 3.0 Mechanical prosthetic valves INR 2.5 to 3.5 Prevention of recurrent IN INR 2.5 to 3.5 Mariana Calderon MD LAB BLOOD ORDERABLES Final Resu lt [facility] [address] [place] [address] * MR Femur Right w and wo IV Contrast (09/12/2024 6:15 PM EDT) Anatomical Region Laterality Modality Femur Right Magnetic Resonan ce Impressions 09/13/2024 8:42 AM EDT Right femur: No bone marrow signal changes of bone erosions in the femur to suggest osteomyelitis. No acute fractures or dislocations. Aszb-pl-dzhtqtdl fatty atrophy and edema of the visualized muscles. These findings are concerning for myositis. Diffuse soft tissue swelling and subcutaneous edema, concerning for cellulitis. Bilateral inguinal adenopathy, left greater than right. Right tib-fib: Redemonstration of nondisplaced fracture of the patella. Postsurgical changes in the anterior knee. Moderate to large joint effusion, with intense synovitis and intra-articular gas formations. Unchanged Gaspar's cyst, which show internal foci of low signal changes, most consistent with gas formations. These findings are concerning for septic arthritis. Joint aspiration and synovial fluid analysis is recommended for further evaluation. There is bone marrow edema in the articular components of the knee, which may suggest reactive bone marrow edema, less likely early osteomyelitis. Moderate to severe fatty atrophy and edema of the visualized muscles. These findings may suggest myositis. Redemonstration of multiseptated fluid collection in the calf, concerning for abscess. Diffuse soft tissue swelling and subcutaneous edema, concerning for cellulitis. CRITICAL RESULT: No. COMMUNICATION: Per this written report. Drafted by Donte Hidalgo MD on 09/13/2024 7:39 AM Final report signed by Donte Hidalgo MD on 09/13/2024 8:42 AM Narrative 09/13/2024 8:42 AM EDT CLINICAL INDICATION: R septic knee, assess for lower leg abscess and possible tibia osteomyelitis TECHNIQUE: Multiplanar images of the right tibia-fibula and right femur obtained without contrast. Additional images were obtained after injection of 7.4 mL of Gadavist. COMPARISON: September 14, 2024 FINDINGS: Infection protocol was performed, not optimal for assessment of internal derangements. Right femur: Bone and Bone Marrow: Partially imaged moderate osteoarthritis of the hips and pubic symphysis. Partially imaged chronic fracture deformity in the sacrococcygeal region. No bone marrow signal changes of bone erosions in the femur to suggest osteomyelitis. No acute fractures or dislocations. Soft Tissues: Vtzj-yp-jdjgcxws fatty atrophy and edema of the visualized muscles, more pronounced in the anterior compartment of the thigh. Diffuse soft tissue swelling and subcutaneous edema, concerning for cellulitis. No obvious fluid collections in the thigh. There are multiple bilateral inguinal lymph nodes, measuring up to 2.2 cm on the left side. Foci of susceptibility artifact in the anterior pelvic wall, most consistent with prior surgery. Please refer to the right tibia-fibula report for additional findings in the right knee. Other: There are similar soft tissue findings on the contralateral femur, right side greater than left side, seen on bilateral coronal images. Additionally there is a suspected left knee medial meniscal tear and left knee moderate to severe osteoarthritis, with cystic changes in the medial femoral condyle. Suspected Gaspar's cyst in the left knee. Right tib-fib: Bone and Bone Marrow: Redemonstration of moderate to severe osteoarthritis in the knee osteoarthritis of the hips. Redemonstration of nondisplaced fracture of the patella. There is heterotopic ossification by the lateral aspect of the patella, which may suggest prior injury There are signal changes in the articular components of the knee, with bright signal changes on T2-weighted images. Extensive susceptibility artifacts in the foot, which limit evaluation of the adjacent structures, most consistent with prior instrumentation. Soft Tissues: Postsurgical changes in the anterior knee. Moderate to large joint effusion, with intense synovial enhancement. Also there are intra-articular foci of low signal changes most consistent with gas formations, better seen on prior CT. Unchanged Gaspar's cyst, which show internal foci of low signal changes, most consistent with gas formations, better seen on prior CT. There are few scattered subcentimeter loose bodies. Moderate to severe fatty atrophy and edema of the visualized muscles. Redemonstration of multiseptated fluid collection along the posterior margin of the medial and lateral gastrocnemius muscles, measuring about 12 cm. Diffuse soft tissue swelling and subcutaneous edema, concerning for cellulitis. Partially imaged right knee medial meniscal tear. Other: There is similar edema in the visualized muscles, seen on bilateral coronal images. Additionally there is a suspected left knee medial meniscal tear and left knee moderate to severe osteoarthritis, with cystic changes in the medial femoral condyle. Suspected Gaspar's cyst in the left knee. Procedure Note Donte Johnson MD - 09/13/2024 CLINICAL INDICATION: R septic knee, assess for lower leg abscess and possible tibiaosteomyelitis TECHNIQUE: Multiplanar images of the right tibia-fibula and right femur birthobtained without contrast. Additional images were obtained after injectionof 7.4 mL of Gadavist. COMPARISON: September 14, 2024 FINDINGS: Infection protocol was performed, not optimal for assessment of internalderangements. Right femur: Bone and Bone Marrow: Partially imaged moderate osteoarthritis of the hipsand pubic symphysis. Partially imaged chronic fracture deformity in thesacrococcygeal region. No bone marrow signal changes of bone erosions in the femur to suggestosteomyelitis. No acute fractures or dislocations. Soft Tissues: Izad-lc-looativf fatty atrophy and edema of the visualizedmuscles, more pronounced in the anterior compartment of the thigh. Diffusesoft tissue swelling and subcutaneous edema, concerning for cellulitis. Noobvious fluid collections in the thigh. There are multiple bilateral inguinal lymph nodes, measuring up to 2.2 cmon the left side. Foci of susceptibility artifact in the anterior pelvicwall, most consistent with prior surgery. Please refer to the right tibia-fibula report for additional findings inthe right knee. Other: There are similar soft tissue findings on the contralateral femur,right side greater than left side, seen on bilateral coronal images.Additionally there is a suspected left knee medial meniscal tear and leftknee moderate to severe osteoarthritis, with cystic changes in the medialfemoral condyle. Suspected Gaspar's cyst in the left knee. Right tib-fib: Bone and Bone Marrow: Redemonstration of moderate to severe osteoarthritisin the knee osteoarthritis of the hips. Redemonstration of nondisplacedfracture of the patella. There is heterotopic ossification by the lateralaspect of the patella, which may suggest prior injury There are signal changes in the articular components of the knee, withbright signal changes on T2-weighted images. Extensive susceptibility artifacts in the foot, which limit evaluation ofthe adjacent structures, most consistent with prior instrumentation. Soft Tissues: Postsurgical changes in the anterior knee. Moderate to largejoint effusion, with intense synovial enhancement. Also there areintra-articular foci of low signal changes most consistent with gasformations, better seen on prior CT. Unchanged Gaspar's cyst, which showinternal foci of low signal changes, most consistent with gas formations,better seen on prior CT. There are few scattered subcentimeter loosebodies. Moderate to severe fatty atrophy and edema of the visualized muscles.Redemonstration of multiseptated fluid collection along the posteriormargin of the medial and lateral gastrocnemius muscles, measuring about 12cm. Diffuse soft tissue swelling and subcutaneous edema, concerning forcellulitis. Partially imaged right knee medial meniscal tear. Other: There is similar edema in the visualized muscles, seen on bilateralcoronal images. Additionally there is a suspected left knee medialmeniscal tear and left knee moderate to severe osteoarthritis, with cysticchanges in the medial femoral condyle. Suspected Gaspar's cyst in the leftknee. IMPRESSION: Right femur: No bone marrow signal changes of bone erosions in the femur to suggestosteomyelitis. No acute fractures or dislocations. Eqqr-zx-nzkxmlmr fatty atrophy and edema of the visualized muscles. Thesefindings are concerning for myositis. Diffuse soft tissue swelling and subcutaneous edema, concerning forcellulitis. Bilateral inguinal adenopathy, left greater than right. Right tib-fib: Redemonstration of nondisplaced fracture of the patella. Postsurgical changes in the anterior knee. Moderate to large jointeffusion, with intense synovitis and intra-articular gas formations.Unchanged Gaspar's cyst, which show internal foci of low signal changes,most consistent with gas formations. These findings are concerning forseptic arthritis. Joint aspiration and synovial fluid analysis isrecommended for further evaluation. There is bone marrow edema in the articular components of the knee, whichmay suggest reactive bone marrow edema, less likely early osteomyelitis. Moderate to severe fatty atrophy and edema of the visualized muscles.These findings may suggest myositis. Redemonstration of multiseptated fluid collection in the calf, concerningfor abscess. Diffuse soft tissue swelling and subcutaneous edema, concerning forcellulitis. CRITICAL RESULT: No. COMMUNICATION: Per this written report. Drafted by Donte Hidalgo MD on 09/13/2024 7:39 AM Final report signed by Donte Hidalgo MD on 58:42 AM us Alex Knight MD IMG MRI PROCEDURES Final Resu lt * MR Tibia Fibula Right w and wo IV Contrast (09/12/2024 6:15 PM EDT) Anatomical Region Laterality Modality Lower Extremities Right Magnetic Reson ance Impressions 09/13/2024 8:42 AM EDT Right femur: No bone marrow signal changes of bone erosions in the femur to suggest osteomyelitis. No acute fractures or dislocations. Xlmx-op-iinwdiyf fatty atrophy and edema of the visualized muscles. These findings are concerning for myositis. Diffuse soft tissue swelling and subcutaneous edema, concerning for cellulitis. Bilateral inguinal adenopathy, left greater than right. Right tib-fib: Redemonstration of nondisplaced fracture of the patella. Postsurgical changes in the anterior knee. Moderate to large joint effusion, with intense synovitis and intra-articular gas formations. Unchanged Gaspar's cyst, which show internal foci of low signal changes, most consistent with gas formations. These findings are concerning for septic arthritis. Joint aspiration and synovial fluid analysis is recommended for further evaluation. There is bone marrow edema in the articular components of the knee, which may suggest reactive bone marrow edema, less likely early osteomyelitis. Moderate to severe fatty atrophy and edema of the visualized muscles. These findings may suggest myositis. Redemonstration of multiseptated fluid collection in the calf, concerning for abscess. Diffuse soft tissue swelling and subcutaneous edema, concerning for cellulitis. CRITICAL RESULT: No. COMMUNICATION: Per this written report. Drafted by Donte Hidalgo MD on 09/13/2024 7:39 AM Final report signed by Donte Hidalgo MD on 09/13/2024 8:42 AM Narrative 09/13/2024 8:42 AM EDT CLINICAL INDICATION: R septic knee, assess for lower leg abscess and possible tibia osteomyelitis TECHNIQUE: Multiplanar images of the right tibia-fibula and right femur obtained without contrast. Additional images were obtained after injection of 7.4 mL of Gadavist. COMPARISON: September 14, 2024 FINDINGS: Infection protocol was performed, not optimal for assessment of internal derangements. Right femur: Bone and Bone Marrow: Partially imaged moderate osteoarthritis of the hips and pubic symphysis. Partially imaged chronic fracture deformity in the sacrococcygeal region. No bone marrow signal changes of bone erosions in the femur to suggest osteomyelitis. No acute fractures or dislocations. Soft Tissues: Gdqd-xf-xbphbxcf fatty atrophy and edema of the visualized muscles, more pronounced in the anterior compartment of the thigh. Diffuse soft tissue swelling and subcutaneous edema, concerning for cellulitis. No obvious fluid collections in the thigh. There are multiple bilateral inguinal lymph nodes, measuring up to 2.2 cm on the left side. Foci of susceptibility artifact in the anterior pelvic wall, most consistent with prior surgery. Please refer to the right tibia-fibula report for additional findings in the right knee. Other: There are similar soft tissue findings on the contralateral femur, right side greater than left side, seen on bilateral coronal images. Additionally there is a suspected left knee medial meniscal tear and left knee moderate to severe osteoarthritis, with cystic changes in the medial femoral condyle. Suspected Gaspar's cyst in the left knee. Right tib-fib: Bone and Bone Marrow: Redemonstration of moderate to severe osteoarthritis in the knee osteoarthritis of the hips. Redemonstration of nondisplaced fracture of the patella. There is heterotopic ossification by the lateral aspect of the patella, which may suggest prior injury There are signal changes in the articular components of the knee, with bright signal changes on T2-weighted images. Extensive susceptibility artifacts in the foot, which limit evaluation of the adjacent structures, most consistent with prior instrumentation. Soft Tissues: Postsurgical changes in the anterior knee. Moderate to large joint effusion, with intense synovial enhancement. Also there are intra-articular foci of low signal changes most consistent with gas formations, better seen on prior CT. Unchanged Gaspar's cyst, which show internal foci of low signal changes, most consistent with gas formations, better seen on prior CT. There are few scattered subcentimeter loose bodies. Moderate to severe fatty atrophy and edema of the visualized muscles. Redemonstration of multiseptated fluid collection along the posterior margin of the medial and lateral gastrocnemius muscles, measuring about 12 cm. Diffuse soft tissue swelling and subcutaneous edema, concerning for cellulitis. Partially imaged right knee medial meniscal tear. Other: There is similar edema in the visualized muscles, seen on bilateral coronal images. Additionally there is a suspected left knee medial meniscal tear and left knee moderate to severe osteoarthritis, with cystic changes in the medial femoral condyle. Suspected Gaspar's cyst in the left knee. Procedure Note Donte Johnson Peña, MD - 09/13/2024 CLINICAL INDICATION: R septic knee, assess for lower leg abscess and possible tibiaosteomyelitis TECHNIQUE: Multiplanar images of the right tibia-fibula and right femur birthobtained without contrast. Additional images were obtained after injectionof 7.4 mL of Gadavist. COMPARISON: September 14, 2024 FINDINGS: Infection protocol was performed, not optimal for assessment of internalderangements. Right femur: Bone and Bone Marrow: Partially imaged moderate osteoarthritis of the hipsand pubic symphysis. Partially imaged chronic fracture deformity in thesacrococcygeal region. No bone marrow signal changes of bone erosions in the femur to suggestosteomyelitis. No acute fractures or dislocations. Soft Tissues: Enny-we-iuptldqm fatty atrophy and edema of the visualizedmuscles, more pronounced in the anterior compartment of the thigh. Diffusesoft tissue swelling and subcutaneous edema, concerning for cellulitis. Noobvious fluid collections in the thigh. There are multiple bilateral inguinal lymph nodes, measuring up to 2.2 cmon the left side. Foci of susceptibility artifact in the anterior pelvicwall, most consistent with prior surgery. Please refer to the right tibia-fibula report for additional findings inthe right knee. Other: There are similar soft tissue findings on the contralateral femur,right side greater than left side, seen on bilateral coronal images.Additionally there is a suspected left knee medial meniscal tear and leftknee moderate to severe osteoarthritis, with cystic changes in the medialfemoral condyle. Suspected Gaspar's cyst in the left knee. Right tib-fib: Bone and Bone Marrow: Redemonstration of moderate to severe osteoarthritisin the knee osteoarthritis of the hips. Redemonstration of nondisplacedfracture of the patella. There is heterotopic ossification by the lateralaspect of the patella, which may suggest prior injury There are signal changes in the articular components of the knee, withbright signal changes on T2-weighted images. Extensive susceptibility artifacts in the foot, which limit evaluation ofthe adjacent structures, most consistent with prior instrumentation. Soft Tissues: Postsurgical changes in the anterior knee. Moderate to largejoint effusion, with intense synovial enhancement. Also there areintra-articular foci of low signal changes most consistent with gasformations, better seen on prior CT. Unchanged Gaspar's cyst, which showinternal foci of low signal changes, most consistent with gas formations,better seen on prior CT. There are few scattered subcentimeter loosebodies. Moderate to severe fatty atrophy and edema of the visualized muscles.Redemonstration of multiseptated fluid collection along the posteriormargin of the medial and lateral gastrocnemius muscles, measuring about 12cm. Diffuse soft tissue swelling and subcutaneous edema, concerning forcellulitis. Partially imaged right knee medial meniscal tear. Other: There is similar edema in the visualized muscles, seen on bilateralcoronal images. Additionally there is a suspected left knee medialmeniscal tear and left knee moderate to severe osteoarthritis, with cysticchanges in the medial femoral condyle. Suspected Gaspar's cyst in the leftknee. IMPRESSION: Right femur: No bone marrow signal changes of bone erosions in the femur to suggestosteomyelitis. No acute fractures or dislocations. Emab-ut-edleofue fatty atrophy and edema of the visualized muscles. Thesefindings are concerning for myositis. Diffuse soft tissue swelling and subcutaneous edema, concerning forcellulitis. Bilateral inguinal adenopathy, left greater than right. Right tib-fib: Redemonstration of nondisplaced fracture of the patella. Postsurgical changes in the anterior knee. Moderate to large jointeffusion, with intense synovitis and intra-articular gas formations.Unchanged Gaspar's cyst, which show internal foci of low signal changes,most consistent with gas formations. These findings are concerning forseptic arthritis. Joint aspiration and synovial fluid analysis isrecommended for further evaluation. There is bone marrow edema in the articular components of the knee, whichmay suggest reactive bone marrow edema, less likely early osteomyelitis. Moderate to severe fatty atrophy and edema of the visualized muscles.These findings may suggest myositis. Redemonstration of multiseptated fluid collection in the calf, concerningfor abscess. Diffuse soft tissue swelling and subcutaneous edema, concerning forcellulitis. CRITICAL RESULT: No. COMMUNICATION: Per this written report. Drafted by Donte Hidalgo MD on 09/13/2024 7:39 AM Final report signed by Donte Hidalgo MD on 58:42 AM us Alex Knight MD IM MRI PROCEDURES Final Resu lt * (ABNORMAL) Sed rate, automated (09/12/2024 10:35 AM EDT) Sedimentation Rate 74(H) <30 mm/hr 2024 12:06 PM EDT [facility] Blood Venous blood specimen / Unknown Venipuncture / Unknown 09/12/2024 10:35 AM EDT 09/12/2024 10:39 AM EDT us Mariana Calderon MD LAB BLOOD ORDERABLES Final Resu lt Performing Organization Address [facility] Co de Phone Number [facility] [address] [place] [address] * (ABNORMAL) Hemoglobin A1c (08/27/2024 9:15 PM EDT) Hemoglobin A1c 8.5(H) <5.7 % 08/28/2024 12:44 AM EDT [facility] Blood Venous blood specimen / Unknown Venipuncture / Unknown 08/27/2024 9:15 PM EDT 08/27/2024 9:25 PM EDT Narrative [facility] - 08/28/2024 12:44 AM EDT HA1C Interpretive Data: Diagnosis of Diabetes: Diabetic > or = 6.5% Pre-diabetic 5.7 to 6.4% Non-diabetic < or = 5.6% Glycemic Targets for Type I and Type II Diabetics: Non- Adults <7.0% Adults <6.0% Children and Adolescents <7.5% Source: [place] [employer]. Standards of medical care in diabetes,2017. Diabetes Care.2017:40 (suppl 1):S1-S135. HbA1c assay performed by an ion-exchange chromatography method that is certified traceable to the DCCT. us Roberto Ceja MD LAB BLOOD ORDERABLES Final R esult Performing Organization Address [facility] [place] [place] [address] * Hepatitis C Antibody - ED (05/26/2024 11:59 AM EST) Hepatitis C Antibody Negative Negative 05/26/2024 12:53 PM EST [facility] Blood Venous blood specimen / Unknown Venipuncture / Unknown 05/26/2024 11:59 AM EST 05/26/2024 12:11 PM EST us Justyna Suazo MD LAB BLOOD ORDERABLES Final Res ult [facility] [address] [place] [address] from Last 3 Months or Most Recently Relevant to Health Maintenance Additional Health Concerns Active Problems Noted Date Diagnosed Date Autogenerated Problem 09/11/2024 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 Yes * Full Code Date Activated Date Inactivated Comments 05/26/2024 2:54 PM 06/06/2024 4:38 PM Question Answer Comments Patient has decision-making capacity? Yes Care Teams Commercial Leasing Agent Relationship Specialty Start Date End Date Ramos Morales APRN [address] [place] [address] [facility] - General 06/25/24
--- OUTSIDE RECORDS SUMMARY | 2024-12-13 14:24 | XMS_ITS | Clinical Summary ---
Author Organization [employer] Address [address] [place] [id number] Care Team Providers Care Newspaper Reporter Name Role Phone Unavailable Primary Care Provider [...]
== END 2024-12-13 23:59 | disposition home or self-care (01) ==
LOC: LAB.DROPOF 14:19
PROVIDERS: PCP Podiatrist; Visit Provider Podiatrist
DX: Z98.890 Other specified postprocedural states (principal)
CPT/HCPCS: 87077; 87186; 88304

== ENCOUNTER 2024-12-31 15:13 | Emergency (ER) | payer MEDICARE, MEDICAID, SELFPAY ==
--- OUTSIDE RECORDS SUMMARY | 2024-12-31 17:00 | XMS_ITS | Continuity of Care Document ---
Author Organization [facility]. If a dditional information is needed, contact Health Information Management at [phone] Address [address] [place] [address] Phone Care Team Providers Care Validation Specialist Name Role Phone Unavailable Unavailable Unavailable Encounters 06-Sep-2023 11:21 Collette
--- OUTSIDE RECORDS SUMMARY | 2024-12-31 17:02 | XMS_ITS | Encounter Summary ---
Author Organization [employer] ([place], [place], [place], [place]) Address [address] [place] [address] Care Team Providers Care Oncology Account Specialist Name Role Phone Unavailable Primary Care Provider Unavailabl e Encounter Details Date Type Department Care Team (Late st Contact Info) Description 03/22/2019 Transcribed Document [facility] [place] [address] ProviderJace MD [address] [place] [address] Social History Tobacco Use Types Packs/Day Years Used Date Smoking Tobacco: Never Assessed Comments Unknown Sex and Gender Information Value Date Recorded Sex Assigned at Not on file Legal Sex Female 5:55 PM CDT Gender Identity Not on file Sexual Orientation Not on file documented as of this encounter Miscellaneous Notes * Cerner Conversion Note - Jace ProviderMD - 03/22/2019 2:24 PM CDT Patient: [...] at present; 324 asa and one Ntg 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 History of Present Illness The patient [...] reflux disease HLD (hyperlipidemia) HTN (hypertension) Hypothyroid [place] Obesity Post-menopause Sleep apnea Syncope , per [...] EDT Height Source Stated Height Entry Format Harper Height/Length, KITTITIAN (ft) 5 ft Height/Length KITTITIAN 2 Inch CLINICALHEIGHT 157.48 cm Aubrey Body Weight 49.73 kg Weight Source, ED Critical estimated dosing weight Weight Entry Format Harper Weight Albanian lb 183 lb CLINICALWEIGHT 83.18 kg Body [...] ED Adult Triage: ED Clinical Reconciliation: ED wood ski maker: Lipase Level: Normal Saline Flush: 10 mL, IV Push, See Comment ProBNP: Saline Lock Insert: Troponin I Ultra: Troponin I Ultra: Urinalysis w Culture if Indicated: . Electrocardiogram: Time 03/22/2019 11:39:00, rate 88, normal sinus rhythm, No ST changes, no ectopy, normal MD & QRS intervals, EP Interp. Electrocardiogram: Time 03/22/2019 15:41:00, rate 75, normal sinus rhythm, No ST changes, no ectopy, normal MD & QRS intervals, EP Interp. case monitor: Normal sinus rhythm. Results review: All Results [...] % 38.9 % Lymph # 3.35 x10(3)/uL Story % 6.3 % Story # 0.54 K/uL Eos % 3.2 % Eos # 0.28 x10(3)/uL Baso % 0.6 % Baso # 0.05 x10(3)/uL Slide Review No IG# 0.05 x10(3)/uL IG% 0.60 % 03/22/2019 12:20 EDT Urine Type. U CleanCatch Urine Color Yellow Urine Appearance Clear Urine Specific [place] 1.009 Urine pH Dipstick 6.0 Urine Leukocyte Esterase Moderate Urine Nitrite Negative Urine Protein Dipstick Negative Urine Glucose Dipstick 100 Urine Ketones Dipstick Negative Urine Urobilinogen Dipstick 0.2 EU/dL Urine Bilirubin Dipstick Negative Urine Blood Dipstick Negative Ur WBC 10-20 /HPF Ur Bacteria 3+ Ur Epithelial Cells 10-20 /HPF Ur Hyaline Casts 10-20 /LPF . Radiology results: Radiology Results (Last 48 hours) [id number] -- 03/22/2019 11:35 CR Chest 1 Vw [...] to: Time: 03/22/2019 16:06:00, GIL PHILLIPS PA-C, 8832 Patient feeling well. Reports no chest pain and no abdomen pain. She had the pain she had this morning yesterday also. She had sausage this morning before this pain and vomiting. Abdomen soft/some epigastric tenderness. No guarding. She has not see cardiology in over 3 years. Advised f/u PCP and cardiology.. Prescriptions: Prescription [facility]: Macrobid 100 mg oral capsule (Prescribe): [...] of instructions. Notes: I certify that the MLP/INFORMATION SYSTEMS PLANNER performed the services as delegated. . documented in this encounter Plan of Treatment Not on file documented as of this encounter Visit Diagnoses Not on filedocumented in this encounter
--- OUTSIDE RECORDS SUMMARY | 2024-12-31 17:02 | XMS_ITS | Encounter Summary ---
Author Organization [employer] ([place], [place], [place], [place]) Address [address] [place] [address] Care Team Providers Care Embedded Processor Name Role Phone Unavailable Primary Care Provider Unavailabl e Encounter Details Date Type Department Care Team (Late st Contact Info) Description 03/25/2019 Transcribed Document [facility] [place] [facility] [place] [address] ProviderJace MD [address] [place], [place] [id number] Social History Tobacco Use Types Packs/Day Years [...] Reviewed by Provider, No further action required documented in this encounter Plan of Treatment Not on file documented as of this encounter Visit Diagnoses Not on filedocumented in this encounter
--- OUTSIDE RECORDS SUMMARY | 2024-12-31 17:02 | XMS_ITS | Encounter Summary ---
Author Organization [employer] ([place]) Address [address] [place] [address] Care Team Providers Care Street Cleaner Name Role Phone Unavailable Primary Care Provider Unavailabl e Encounter Details Date Type Department Care Team (Late st Contact Info) Description 03/22/2019 Transcribed Document [facility] [place] [facility] [place] [address] ProviderJace MD [facility] [place], [place] [id number] Social History Tobacco Use Types Packs/Day Years Used Date Smoking Tobacco: Never Assessed Comments Unknown Sex and Gender Information Value Date Recorded Sex Assigned at Not on file Legal Sex Female 5:55 PM CDT Gender Identity Not on file Sexual Orientation Not on file documented as of this encounter Miscellaneous Notes * Cerner Conversion Note - Jace ProviderMD - 03/22/2019 5:01 PM CDT ED [...] Meena Mercado Rn - 03/22/2019 17:01 EDT documented in this encounter Plan of Treatment Not on file documented as of this encounter Visit Diagnoses Not on filedocumented in this encounter
--- OUTSIDE RECORDS SUMMARY | 2024-12-31 17:02 | XMS_ITS | Encounter Summary ---
Author Organization [employer] ([place], [place], [place], [place]) Address [address] [place] [address] Care Team Providers Care Elementary School Tutor Name Role Phone Unavailable Primary Care Provider Unavailabl e Encounter Details Date Type Department Care Team (Late st Contact Info) Description 03/23/2019 Transcribed Document [facility] Medicine [facility] [place] [address] ProviderJace MD [facility] [place] [address] Social History Tobacco Use Types [...]
--- OUTSIDE RECORDS SUMMARY | 2024-12-31 17:02 | XMS_ITS | Clinical Summary ---
Author Organization [facility] Address [address] [place] [address] Care Team Providers Care Rehabilitation Services Director Name Role Phone Ramos Morales APRN Primary Care Provider [phone] Allergies Active Allergy Reactions Criticality Noted Date [...] by mouth every evening. Active HYDROcodone-ac etaminophen ([place]) 10-325 MG tablet Take 1 tablet (10 [...] nightly 30 g 4 Active nystatin (Mycostatin) 518935 UNIT/GM powder Apply twice a day to [...] by mouth every 6 (six) hours. Under [place] law, monthly prescriptions (30 days) can be [...] (06/26/2024): Added automatically from request for surgery [id number] S/P coronary artery stent placement 06/20/2014 Resolved Problems Problem Noted Date Diagnosed Date Resolved Date Cellulitis of foot 05/29/2024 4 Encounters Date Type Department Care Team Description 11/27/2024 Telephone [facility] [address] [facility] [address] [place] [address] Scotty Truong MD from Last 3 Months Immunizations Immunization Administration [...] any time in the past 12 m [facility], were you homeless or living in a fpc (including now)? Patient unable to answer 08/29/2024 [...] Info) Description 01/07/2025 3:00 PM EDT Appointment [facility] [address] [place] [address] 01/07/2025 4:00 PM EDT Office Visit [facility] [address] [place] [address] Scotty Truong MD [address] [place] [address] Health Maintenance Due Date Last Done Comments [facility]-Depression Screening 1962 [facility]-Medicare Annual Wellness (AWV) 1960 [facility]-/Child/Adol SDOH Screenings 1962 Diabetes: Dental Exam 1972 [facility]-DTaP,Tdap,and Td Vaccines (1 - Tdap) 1981 CT Colonography 09/03/2007 Colonoscopy 09/03/2007 FIT-DNA 09/03/2007 FIT 09/03/2007 FOBT 09/03/2007 Sigmoidoscopy 09/03/2007 [facility]-Colorectal Cancer Screening 09/03/2007 [facility]-Breast Cancer Screening 2012 [id number] Vaccine (3 - Pfizer risk series) 11/03/2020 10/06/2020, 09/15/2020 [facility]-Zoster Vaccines (2 of 2) 05/25/2021 03/30/2021 [facility]-RSV Vaccine: 60+ Years or (1 - Risk 60-74 years 1-dose series) 2022 [facility]- SDOH Screenings 11/26/2024 [facility]-Adult SDOH Screenings 11/26/2024 05/28/2024 [facility]-Diabetes: Hemoglobin A1C 11/26/202403/2025, 05/26/2024, 04/16/2021, Additional history exists [facility]-Influenza Vaccine (#1) 02/18/202504/24, 03/30/2021, 07/06/2017, Additional history exists [facility]-Pneumococcal Vaccine: [...] Plan Autogenerated Problem No Melany Ha RN Medical Devices Implanted Type Area Assembler Body Device Identifier Shelf Expiration Date Model / Serial / Lot Pin Pin Right: Foot Stent Stent N/A: Heart Procedures Procedure Name Priority Date/Time Associated Diagnosis Comments HIV 1/2 ANTIBODY/ANTIGEN SCREEN WITH REFLEX TO HIV I/II DIFFERENTIATION Routine 09/24/2024 2:51 PM EDT HEMOGLOBIN A1C STAT Add-on 08/27/2024 9:15 PM EDT HEPATITIS C ANTIBODY - ED W/REFLEX TO HCV QUANT PCR STAT 05/26/2024 11:59 AM EST from Last 3 Months or Most Recently Relevant to Health Maintenance Results * HIV 1 & 2 Antibody/Antigen Screen (09/24/2024 2:51 PM EDT) HIV 1 & 2 Antibody/Antigen Screen Non Reactive Non Reactive 09/24/2024 3:46 PM EDT [facility] Comment:Screening for HIV 1 & 2 antibodies, and P24 antigen is NONREACTIVE. No confirmatory testing is required. Blood Venous blood specimen / Unknown Venipuncture / Unknown 09/24/2024 2:51 PM EDT 09/24/2024 3:06 PM EDT us Rohit Patel MD LAB BLOOD ORDERABLES Final Result [facility] [address] [place] [address] * (ABNORMAL) Hemoglobin A1c (08/27/2024 9:15 PM EDT) Hemoglobin A1c 8.5(H) <5.7 % 08/28/2024 12:44 AM EDT [facility] Blood Venous blood specimen / Unknown Venipuncture / Unknown 08/27/2024 9:15 PM EDT 08/27/2024 9:25 PM EDT Narrative [facility] - 08/28/2024 12:44 AM EDT HA1C Interpretive Data: Diagnosis of Diabetes: Diabetic > or = 6.5% Pre-diabetic 5.7 to 6.4% Non-diabetic < or = 5.6% Glycemic Targets for Type I and Type II Diabetics: Non- Adults <7.0% Adults <6.0% Children and Adolescents <7.5% Source: [place] Diabetes Association. Standards of medical care in diabetes,2017. Diabetes Care.2017:40 (suppl 1):S1-S135. HbA1c assay performed by an ion-exchange chromatography method that is certified traceable to the DCCT. us Roberto Ceja MD LAB BLOOD ORDERABLES Final R esult Performing Organization Address City/[facility]/ZIP Co de Phone Number [facility] [address] [place] [address] * Hepatitis C Antibody - ED (05/26/2024 11:59 AM EST) Hepatitis C Antibody Negative Negative 05/26/2024 12:53 PM EST [facility] Blood Venous blood specimen / Unknown Venipuncture / Unknown 05/26/2024 11:59 AM EST 05/26/2024 12:11 PM EST us Justyna Suazo MD LAB BLOOD ORDERABLES Final Res ult Performing Organization Address [facility]/ZIP Co de Phone Number [facility] [address] [place] [address] from Last 3 Months or Most Recently [...] Patient has decision-making capacity? Yes Care Teams Rehabilitation Services Director Relationship Specialty Start Date End Date Ramos Morales APRN [address] [place] [id number] PCP - General 06/25/24
--- OUTSIDE RECORDS SUMMARY | 2024-12-31 17:02 | XMS_ITS | Encounter Summary ---
Author Organization [employer] ([place], [place], [place], [place]) Address [address] [place] [address] Care Team Providers Care Clinical Secretary Name Role Phone Unavailable Primary Care Provider Unavailabl e Encounter Details Date Type Department Care Team (Late st Contact Info) Description 03/22/2019 Transcribed Document [place] [facility] [place] [address] ProviderJace MD [facility] [place] [address] Social History Tobacco Use Types [...] Historical ProviderMD - 03/22/2019 4:43 PM CDT [facility] [place] [address] Visit Date/Time: 03/22/2019 16:43:59 MICHELINE HUBER The above patient was seen in the hospital today and needs to be excused from work/school until Return to Work/School Date:03/24/2019 Electronically signed by Mitra [facility] Conversion Automatic Steel Tie Adjuster Cerner at 10/06/2022 1:03 PM CDT documented in this encounter Plan of Treatment Not on file documented as of this encounter Visit Diagnoses Not on filedocumented in this encounter
--- OUTSIDE RECORDS SUMMARY | 2024-12-31 17:02 | XMS_ITS | Data Portability ---
Author Organization [facility] Enc[facility]acion [place] [facility] Address [address] [place] [address] Care Team Providers Care Nail Technician Teacher Name Role Phone ATILIO CUELLAR Primary Care Provider JOSETTE BENAVIDES Middleware Consultant Assessment No assessment recorded. Plan of Treatment Reminders Order Date Submit Date Provider Last Modified By Organization Details Last Modified Time Details Appointments None recorded. Lab glucose, fingersti ck, blood 2020 021 [email or web address] 8 [facility] , [address] [place] [address], [phone], 11:28:55 hemoglobi n A1C, fingersti ck 2020 021 [email or web address] 8 [facility] , [address] [place] [address], [phone], 11:28:56 glucose, fingersti ck, blood 2020 021 [email or web address] 8 [facility] , [address] [place] [address], [phone], 09:54:19 hemoglobi n A1C, fingersti ck 2020 021 [email or web address] 8 [facility] , [address] [place] [address], [address], 09:54:19 glucose, fingersti ck, blood 2019 020 [email or web address] 8 [facility], [address] [place], [address], 0 09:41:05 hemoglobi n A1C, fingersti ck 2019 020 [email or web address] 8 [facility], [address] [place], [address], 0 09:41:05 glucose, fingersti ck, blood 2019 020 8 [facility], [address] [place], [address], 0 14:34:08 hemoglobi n A1C, fingersti ck 2019 020 [email or web address] 8 [facility], [address] [place], [address], 0 14:34:08 Referral None recorded. Procedures None recorded. Surgeries None recorded. Imaging None recorded. Medication Orders FreeStyle Lite Strips 2020 [facility], [address] [place], [address], 1 11:28:58 Humalog KwikPen (U-100) Insulin 100 unit/mL subcutane ous 2020 [facility], [address] [place], [address], 1 11:28:59 Lantus Solostar U-100 Insulin 100 unit/mL (3 mL) subcutane ous pen 2020 [facility], [address] [place], [address], 1 11:28:59 Basaglar KwikPen U-100 Insulin 100 unit/mL (3 mL) subcutane ous 2020 021 [facility], [address] [place], [address], 1 09:54:22 Admelog SoloStar U-100 Insulin lispro 100 unit/mL subcutane ous pen 2020 021 [facility], [address] [place], [address], 1 16:19:47 FreeStyle Lite Strips 2020 021 [facility], [address] [place], [address], 1 09:54:22 Accu-Chek Guide test strips 2019 020 [email or web address] [facility] #3016, [address] [place], [address], 1 09:32:42 Basaglar KwikPen U-100 Insulin 100 unit/mL (3 mL) subcutane ous 2019 020 INTERFACE [facility]3016, [address] [place], [address], 0 09:41:07 Humalog KwikPen (U-100) Insulin 100 unit/mL subcutane ous 2019 020 [email or web address] 8 [facility], [address] [place] [address], [address], 0 10:33:21 Accu-Chek Guide test strips 2019 020 [email or web address] [facility], [address] [place] [address], [address], 1 09:32:42 Patient TargetsNo targets recorded. Patient Instructions Encounter Date Encounter Id Patient Instructions Last Modified By Organization Details Last Modified Time 02/27/2020 [id number] -Increase lantus/basaglar to 65 units twice daily. -Start humalog. Inject 15 units three times daily before your meals. Take this insulin 5-10min before you eat. - Monitor blood glucose at least 3 times per day before breakfast and [...] appointment. Sign up for the patient portal: [email or web address] Not available 02/27/2020 14:26:08 04/28/2020 [id number] -Continue basagl ar to 65 units twice daily. -Adjust humalog. Inject 15 units three times daily before your meals. Take this insulin 5-10min before you eat. - Monitor blood glucose at least 3 times per day before breakfast and [...] appointment. Sign up for the patient portal: [email or web address] Not available 04/28/2020 12:42:01 01/14/2021 [id number] -Continue basagl ar to 64 units twice daily. -Restart admelog. Inject 15 units three times daily before your meals. Take this insulin 5-10min before you eat. -Discontinue tradjenta. - Monitor blood glucose at least 3 times per day before breakfast and [...] appointment. Sign up for the patient portal: [email or web address] Not available 01/14/2021 10:33:38 04/13/2021 [id number] -Increase Lantus to 70 units twice daily. -Increase humalog. Inject 20units three times daily before your meals. Take this insulin 5-10min before you eat. -Continue current supply of tradjenta until you run out. Do not refill. - Monitor blood glucose at least 3 times per day before breakfast and [...] appointment. Sign up for the patient portal: [email or web address] Not available 04/13/2021 11:29:40 Reason for Referral None Reported. Results Created Date Observation Date Name Description Value Unit Range Abnormal Flag Note LastModifiedBy Organization Detail LastModifiedTime 04/09/2004/09/2021 hemog lobin A1Crafal hemoglobin A1C % 12.5 % 4.0 - 5.6 Not Available [facility] [address] [place], [address], 04/09/2021 09:59:46 04/09/2004/09/2021 gluco serafal, blood glucose, fingerstick 378 mg/dL 70 - 100 Not Available [facility] [place], [address], 04/09/2021 09:59:45 01/15/20 21 01/14/2021 hemog lobin A1C, finge rstic k hemoglobin A1C % 12.7 % 4.0 - 5.6 Not Available [facility] [address], [address], 01/14/2021 09:36:54 01/15/2001/14/2021 gluco se, finge rstic k, blood glucose, fingerstick 381 mg/dL 70 - 100 Not Available [facility] [address], [address], 01/14/2021 09:36:17 04/25/20 20 04/25/2020 hemog lobin A1C, finge rstic k hemoglobin A1C % 12.0 % 4.0 - 5.6 Not Available [facility] [address], [address], 04/25/2020 09:25:42 04/25/2004/25/2020 gluco se, finge rstic k, blood glucose, fingerstick 322 mg/dL 70 - 100 Not Available [facility] [address], [address], 04/25/2020 09:25:42 02/27/20 20 02/27/2020 hemog lobin A1C, finge rstic k hemoglobin A1C % 13.6 % 4.0 - 5.6 Not Available [facility] [address], [address], 02/26/2020 09:37:53 02/27/20 20 02/27/2020 gluco se, finge rstic k, blood glucose, fingerstick 479 mg/dL 70 - 100 Not Available [facility] [address], [address], 02/26/2020 09:37:51 Result Notes None recorded. Problems No Known Problems Medical Equipment None Reported. Allergies Allergen ID Allergen Name Allergen Category Reaction Reaction Severity Criticality Documentation Date Start Date Code Code System Note Provider Name and Address Organization Details Recorded Time 785567 [employer] medicatio n Not available Not available Not available 02/27/2020 77078 [id number] RxNorm Yolanda Bucky [facility] 0 13:47:29 Medications Name Sig Start Date [...] Available Not Available No t Available FreeStyle [place] Lite kit USE DIRECTED active Not Available [...] Available No t Available OneTouch Verio Meter check blood sugar 4 x day E11.65 01/14 completed Not Available Not Available Not [...] Available Not Available Vitals Date Recorded Body height Body mass index (BMI) Body weight Heart rate Systolic And Diastolic Provider Name and Address Organization Details Last Updated DateTime 01/14/2021 157.48 cm 32.9 kg/m2 26930.63 g 82 /min 120/80 mm[Hg] Yolanda [facility] 01/14/2021 09:35:05 Date Recorded Body weight Body mass index (BMI) Body height Heart rate Systolic And Diastolic Provider Name and Address Organization Details Last Updated DateTime 02/27/2020 74140.81 g 33.3 kg/m2 157.48 cm 104 /min 116/74 mm[Hg] [facility] 13:53:46 Date Recorded Body height Heart rate Body mass index (BMI) Body weight Systolic And Diastolic Provider Name and Address Organization Details Last Updated DateTime 04/13/2021 157.48 cm 99 /min 31.9 kg/m2 02681.87 g 114/78 mm[Hg] Ifrah Kennedy [facility] 04/13/2021 10:14:51 Date Recorded Body height Body mass index (BMI) Body weight Heart rate Systolic And Diastolic Provider Name and Address Organization Details Last Updated DateTime 04/28/2020 157.48 cm 34.4 kg/m2 74001.37 g 82 /min 122/80 mm[Hg] [facility] 04/28/2020 09:18:31 Social History Question Answer Notes LastModified by tribalX ion Details LastModified Time Tobacco Smoking Status Current Every Day Smoker [facility] 02/27/2020 13:54:43 How Much Tobacco [...] SNOMED-CT Code Diagnosis ICD10 Code Diagnosis Note [id number] PARAG MORILLO APRN ENDOCRINO LOGY [address] [place] [address] 02/27/2020 13:24:45 02/27/2020 14:38:19 Uncontrolled type 2 diabetes mellitus 024709853 E11.65 Diabetes mellitus Type 2, uncontroll ed. A1C at the office today is 13.4 %. Last A1c 11.4 % 01/19/20. Goal A1C by ADA criteria is less [...] eat. - Patient is instructed to restrict her carbohydra maya (less than 45 g per meal and less than 15 g per snack). Instructed on carbohydra te counting and importance of carbohydra te consistenc y. Handout given and reviewed. Carb book provided. - Monitor blood glucose at least 3 times per day before breakfast and before dinner or at bedtime and any time she feels low. Blood glucose goals reviewed (i.e. fasting 80-130, post-prand ial <180, and hypoglycem ia <70). Patient advised to call our office if recurrent hypoglycem ia. - Untoward consequenc es of uncontroll ed diabetes discussed, including but not limited to peripheral diabetic neuropathy , diabetic nephropath y, diabetic retinopath y, heart attack, and stroke. - Dietitian referral: No - Encouraged to be active (30 minutes of moderate intensity exercise i.e. walking 5 times weekly). Weight loss will help with insulin sensitizat ion. - Hypoglycem ia symptoms explained and treatment for this reviewed. - Patient is up to date on foot exam. - Patient is up to date on eye exam. - Patient is needs urine testing for microalbum in. BECCA no; ARB no - Patient verbalized understand ing of treatment plan. All questions answered. -Last labs on 01/24/20 BUN 14 Cr 0.73 GFR 91 AST 46 ALT 58 TSH 0.79 Hyperlipidemia 04978746 E78.5 Goal LDL is under 100 mg/dl. Continue current statin therapy as ordered per PCP. Continue dietary changes as recommende d. Essential hypertension 97023381 I10 Goal B.P is less than 140/90 mmHg. Continue current anti-hyper tensive medication s as appropriat e per patient s PCP. [id number] PARAG MORILLO APRN ENDOCRINO LOGY [address] [place] [address] 04/28/2020 09:01:37 04/28/2020 09:43:06 Uncontrolled type 2 diabetes mellitus [id number] E11.65 Diabetes mellitus Type 2, uncontroll ed. A1C at the office today is 12%, down from 13.4 % 02/27/20. Goal A1C by ADA criteria is less [...] titration. - Patient is instructed to restrict her carbohydra maya (less than 45 g per meal and less than 15 g per snack). Reinforced importance of carbohydra te consistenc y and dietary discretion . - Monitor blood glucose at least 3 times per day before breakfast and before dinner or at bedtime and any time she feels low. Blood glucose goals reviewed (i.e. fasting 80-130, post-prand ial <180, and hypoglycem ia <70). Patient advised to call our office if recurrent hypoglycem ia. - Untoward consequenc es of uncontroll ed diabetes discussed, including but not limited to peripheral diabetic neuropathy , diabetic nephropath y, diabetic retinopath y, heart attack, and stroke. - Dietitian referral: No - Encouraged to be active (30 minutes of moderate intensity exercise i.e. walking 5 times weekly). Weight loss will help with insulin sensitizat ion. - Hypoglycem ia symptoms explained and treatment for this reviewed. - Patient is up to date on foot exam. - Patient is up to date on eye exam. - Patient is needs urine testing for microalbum in. BECCA no; ARB no - Patient verbalized understand ing of treatment plan. All questions answered. -Last labs on 01/24/20 BUN 14 Cr 0.73 GFR 91 AST 46 ALT 58 TSH 0.79 Spent 25 total minutes with the patient today in counseling regarding informatio n documented in my assessment and plan above. The time represents more than 50% of the encounter. Hyperlipidemia 28170946 E78.5 Goal LDL is under 100 mg/dl. Continue current statin therapy as ordered per PCP. Continue dietary changes as recommendclayton d. Essential hypertension 47831884 I10 Goal B.P is less than 140/90 mmHg. Continue current anti-hyper tensive medication s as appropriat e per patient s PCP. [id number] PARAG MORILLO APRN ENDOCRINO LOGY [address] [place] [address] 01/14/2021 09:19:35 01/15/2021 11:38:36 Uncontrolled type 2 diabetes mellitus [id number] E11.65 Diabetes mellitus Type 2, uncontroll ed. A1C at the office today is 12.7%, up from 12%, 04/28/20. Goal A1C by ADA criteria is less [...] titration. - Patient is instructed to restrict her carbohydra maya (less than 45 g per meal and less than 15 g per snack). Reinforced importance of carbohydra te consistenc y and dietary discretion . - Monitor blood glucose at least 3 times per day before breakfast and before dinner or at bedtime and any time she feels low. Blood glucose goals reviewed (i.e. fasting 80-130, post-prand ial <180, and hypoglycem ia <70). Patient advised to call our office if recurrent hypoglycem ia. - Untoward consequenc es of uncontroll ed diabetes discussed, including but not limited to peripheral diabetic neuropathy , diabetic nephropath y, diabetic retinopath y, heart attack, and stroke. - Dietitian referral: No - Encouraged to be active (30 minutes of moderate intensity exercise i.e. walking 5 times weekly). Weight loss will help with insulin sensitizat ion. - Hypoglycem ia symptoms explained and treatment for this reviewed. - Patient is up to date on foot exam. - Patient is up to date on eye exam. - Patient is needs urine testing for microalbum in. BECCA no; ARB no; Will request last labs from Dr. Meneses, order at next visit if needed. - Patient verbalized understand ing of treatment plan. All questions answered. -Last labs on 01/24/20 BUN 14 Cr 0.73 GFR 91 AST 46 ALT 58 TSH 0.79 Hyperlipidemia 17692278 E78.5 Goal LDL is under 100 mg/dl. Continue current statin therapy as ordered per PCP. Continue dietary changes as recommende d. Essential hypertension 58536561 I10 Goal B.P is less than 140/90 mmHg. Continue current anti-hyper tensive medication s as appropriat e per patient s PCP. [id number] PARAG MORILLO APRN ENDOCRINO LOGY [address] [place] [address] 04/13/2021 10:02:27 04/17/2021 12:36:37 Uncontrolled type 2 diabetes mellitus [id number] E11.65 Diabetes mellitus Type 2, uncontroll ed. A1C at the office today is 12.5%, down from 12.7%, 01/14/21. Goal A1C by ADA criteria is less [...] titration. - Patient is instructed to restrict her carbohydra maya (less than 45 g per meal and less than 15 g per snack). Reinforced importance of carbohydra te consistenc y and dietary discretion . - Monitor blood glucose at least 3 times per day before breakfast and before dinner or at bedtime and any time she feels low. Blood glucose goals reviewed (i.e. fasting 80-130, post-prand ial <180, and hypoglycem ia <70). Patient advised to call our office if recurrent hypoglycem ia. - Untoward consequenc es of uncontroll ed diabetes discussed, including but not limited to peripheral diabetic neuropathy , diabetic nephropath y, diabetic retinopath y, heart attack, and stroke.* - Dietitian referral: No - Encouraged to be active (30 minutes of moderate intensity exercise i.e. walking 5 times weekly). Weight loss will help with insulin sensitizat ion. - Hypoglycem ia symptoms explained and treatment for this reviewed. - Patient is up to date on foot exam. - Patient is up to date on eye exam. - Patient is needs urine testing for microalbum in. BECCA no; ARB no; Will request last labs from Dr. Cuellar/[facility] , order at next visit if needed. - Patient verbalized understand ing of treatment plan. All questions answered. -Last labs on 01/24/20- requested labs from Dr. Cuellar[facility] BUN 14 Cr 0.73 GFR 91 AST 46 ALT 58 TSH 0.79 Hyperlipidemia 56318398 E78.5 Goal LDL is under 100 mg/dl. Continue current statin therapy as ordered per PCP. Continue dietary changes as recommende d. Essential hypertension [id number] I10 Goal B.P is less than 140/90 mmHg. Continue current anti-hyper tensive medication s as appropriat e per patient s PCP. Health Concerns Section Related Observation LastModified by Organization Detai ls LastModified Time None Recorded Concern Status LastModified by Organization Details LastModified Time None Recorded Advance Directives Directive None Recorded Payers Insurance Date Sequence Insurance Name Policy Number Policy Mcdonald Covered Member ID Mcdonald Member ID Guarantor Name 07/12/2021 1 [facility] (MEDICAID REPLACEMENT - HMO) Micheline Hernandez [id number] Micheline Hernandez 01/25/2020 1 MEDICAID-[facility] - FFS/TRADITIONA L Claudia Hernandez [id number] Micheline Hernandez Notes Date Note Type Note [...] Drinks: water/ ice MNT in the past: no Diabetes Education class: no Exercise: activity intolerance; Review finger sticks: see scanned logs Fastin-HI Evenin-HI Duration: chronic Control: uncontrolled; worsened since last visit; home blood sugar range high; hemoglobin A1C has been greater than 9; hemoglobin A1C goal is less than 7 [...] vision; burning/tingling of feet (severe-- pain mgmt Smiley) Chronic Complications: Diabetic retinopathy: No Diabetic neuropathy: Yes Diabetic nephropathy: No Hypertension: Yes Hyperlipidemia: Yes PARAG MORILLO, LAKEISHA [address] [place], [address], [place] [facility] 02/27/2020 14:56:05 0 text/html Mrs. Hernandez is [...] sticks: see scanned logs Fastin Evenin-400 Duration: chronic Self Care: monitoring glucose daily; seeing eye [...] (stable); burning/tingling of feet (severe-- pain mgmt Briggs) Chronic Complications: Diabetic retinopathy: No Diabetic neuropathy: Yes Diabetic nephropathy: No Hypertension: Yes Hyperlipidemia: Yes PARAG YISEL, TEMPERING KILN TENDER [address] [place], [address], [facility] 04/28/2020 12:43:20 1 text/html Mrs. Hernandez is [...] Review finger sticks: no meter today Duration: chronic Self Care: monitoring glucose daily; seeing eye [...] (stable); burning/tingling of feet (severe-- pain mgmt Briggs- gabapentin); 8lb weight loss since last visit Chronic Complications: Diabetic retinopathy: No Diabetic neuropathy: Yes Diabetic nephropathy: No Hypertension: Yes Hyperlipidemia: Yes PARAG MORILLO, TEMPERING KILN TENDER [address] [place], [address], [facility] 01/14/2021 10:35:48 1 text/html Mrs. Hernandez is [...] stimulator. April 21, vascular surgery for ?stents ([facility]- Dr. Parham). New PCP- Dr. Cuellar. Hx: [...] (from memory): 300-400's500's in the evening Duration: chronic Self Care: monitoring glucose daily; seeing eye [...] (stable); burning/tingling of feet (severe-- pain mgmt Briggs- gabapentin); additional 6lb weight loss since last visit Chronic Complications: Diabetic retinopathy: No Diabetic neuropathy: Yes Diabetic nephropathy: No Hypertension: Yes Hyperlipidemia: Yes PARAG MORILLO, TEMPERING KILN TENDER [address] [place], [address], [facility] 04/13/2021 11:33:40 OBGyn Episode No OBEpisode recorded.
--- OUTSIDE RECORDS SUMMARY | 2024-12-31 17:02 | XMS_ITS | Encounter Summary ---
Author Organization [employer] ([place], [place], [place], [place]) Address [address] [place] [address] Care Team Providers Care Public Health Inspector Name Role Phone Unavailable Primary Care Provider Unavailabl e Encounter Details Date Type Department Care Team (Late st Contact Info) Description 03/22/2019 Transcribed Document [facility] [place] [address] ProviderJace MD [address] [place] [address] Social History Tobacco Use Types Packs/Day [...] Communication Barrier : None Primary Language : Yoruba Any Spiritual/Cultural Needs or Requests : No [...] Updated: 12/23/2014 19:01:04 EDT by Isaac Dacosta, Rn) 10 or more cigarettes (1/2 pack or [...] (Comment: substernal chest pain radiating to back GLUE MIXER, 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
--- OUTSIDE RECORDS SUMMARY | 2024-12-31 17:02 | XMS_ITS | Encounter Summary ---
Author Organization [employer] ([place], [place], [place], [place]) Address [address] [place] [address] Care Team Providers Care Lawn Service Worker Name Role Phone Unavailable Primary Care Provider Unavailabl e Encounter Details Date Type Department Care Team (Late st Contact Info) Description 03/22/2019 Transcribed Document [facility] [place] [address] ProviderJace MD [address] [place] [address] Social History Tobacco Use Types Packs/Day [...] Ventura MD - 03/22/2019 4:38 PM CDT [facility] [place] [address] MICHELINE HERNANDEZ :1960 Visit Time:03/22/2019 [...] Within 3 to 5 days Where: [address] [address] [address] [place] [address] Business (1) Follow Up with Patient Resource [...] When Within 2 to 3 days Where: [address] [place] [address] [facility] (1) Allergies No Known Allergies Immunizations This [...] range between ( 0.0 and 7.0 ) [place] #: 0.54 K/uL -- Normal range between ( 0.16 and 1.00 ) Eos #: 0.28 x10(3)/uL -- Normal range between ( 0.00 and 0.80 ) [place] %: 6.3 % -- Normal range between [...] /LPF Urine Bilirubin Dipstick: Negative Urine Specific [place]: 1.009 -- Normal range between ( 1.005 and 1.030 ) Urine Type.: U CleanCatch General Chemistry 03/22/2019 2:39 PM Lipase Level: [...] treat less common causes of UTI. ??? Spmz-itc-ifonsaz medicines to treat pain. ??? Drinking enough water to stay hydrated. Follow these instructions at home: ??? Take qnfc-dvp-xihlxez and prescription medicines only as told by [...] 03/16/2006 Document Revised: 11/29/2017 Document Reviewed: 04/26/2016 [employer] Interactive Patient Education ?? 2019 [employer] Nonspecific Chest Pain Chest pain can [...] you start to feel better. ??? Take unkj-sab-voupntf and prescription medicines only as told by [...] 03/16/2006 Document Revised: 02/28/2017 Document Reviewed: 02/28/2017 [employer] Interactive Patient Education ?? 2019 [employer]. Emergency Awareness and Preventative Care STROKE is [...] Assistance with quitting is available by contacting 3-677-SSVS-NOW. This is a free resource providing counseling, [...] was given the opportunity to ask questions. Patient/Lime Filter Operator Name: Patient/Lime Filter Operator Signature: Relationship to Patient: Clinician/Hospital Lime Filter Operator Signature: Please Provide a Telephone Number Where You Can Be Reached: Is it Permissible To Leave a Message? Date: documented in this encounter Plan of Treatment Not on file documented as of this encounter Visit Diagnoses Not on filedocumented in this encounter
--- OUTSIDE RECORDS SUMMARY | 2024-12-31 17:02 | XMS_ITS | Encounter Summary ---
Author Organization [employer] ([place], [place], [place], [place]) Address [address] [place] [address] Care Team Providers Care Income Tax Auditor Name Role Phone Unavailable Primary Care Provider Unavailabl e Encounter Details Date Type Department Care Team (Late st Contact Info) Description 03/22/2019 Transcribed Document [facility] Family Medicine [facility] [place] [address] ProviderJace [place] [address] Social History Tobacco Use Types Packs/Day Years Used Date Smoking Tobacco: Never Assessed Comments Unknown Sex and Gender Information Value Date Recorded Sex Assigned at Not on file Legal Sex Female 5:55 PM CDT Gender Identity Not on file Sexual Orientation Not on file documented as of this encounter Miscellaneous Notes * Cerner Conversion Note - Jace ProviderMD - 03/22/2019 4:33 PM CDT Electronically signed by Mitra [facility] Conversion Electronic Test Technician Cerner at 10/06/2022 1:00 PM CDT documented in this encounter Plan of Treatment Not on file documented as of this encounter Visit Diagnoses Not on filedocumented in this encounter
--- OUTSIDE RECORDS SUMMARY | 2024-12-31 17:02 | XMS_ITS | Encounter Summary ---
Author Organization Healthcare Address [address] [place] [address] Care Team Providers Care Director Regulatory Compliance Name Role Phone Carmen Ramos Sterling APRN Primary Care Provider [phone] Encounter Details Date Type Department Care Team (Late st Contact Info) Description 11/27/2024 Telephone [facility] [address] [facility] 5th Floor [address] [place] [address] Scotty Truong MD [address] [facility] [address] [place] [address] Social History Tobacco Use Types [...] any time in the past 12 m [facility] were you homeless or living in a nursing home (including now)? Patient unable to answer 08/29/2024 [...] PM EDT Spoke with pt to reschedule [facility] discharge vascular consult. Pt state she is [...] Info) Description 01/07/2025 3:00 PM EDT Appointment [facility] Vascular Lab [address] [facility] 5th Floor [address] [place] [address] 01/07/2025 4:00 PM EDT Office Visit [facility] [address] [facility] 5th Floor [address] [place] [address] Scotty Truong MD [address] [facility] [address] [place] [address] documented as of this encounter [...] documented as of this encounter Care Teams Director Regulatory Compliance Relationship Specialty Start Date End Date Ramos Morales APRN [address] [place] [address] PCP - General 06/25/24 documented as of this encounter
--- OUTSIDE RECORDS SUMMARY | 2024-12-31 17:02 | XMS_ITS | Clinical Summary ---
Author Organization [employer] ([place], [place], [place], [place]) Address [address] [place] [address] Care Team Providers Care Weather Stripper Name Role Phone Unavailable Primary Care Provider [...]
--- OUTSIDE RECORDS SUMMARY | 2024-12-31 17:02 | XMS_ITS | Encounter Summary ---
Author Organization [employer] ([place], [place], [place], [place]) Address [address] [place] [address] Care Team Providers Care Recreational Aide Name Role Phone Unavailable Primary Care Provider Unavailabl e Encounter Details Date Type Department Care Team (Late st Contact Info) Description 03/22/2019 Transcribed Document [facility] Family Medicine [facility] [place] [address] ProviderJace MD [address] [place] [address] Social History Tobacco Use Types Packs/Day [...] at present; 324 asa and one Ntg BOILER TECHNICIAN Cornelia Baird RN - 03/22/2019 11:36 EDT DCP GENERIC CODE Tracking Acuity : 2 - Emergent Tracking Group : [facility] ED Cornelia Baird RN - 03/22/2019 11:36 EDT Mode of Arrival : Stretcher Transported to ED by : Ambulance/ALS EMS Service : [facility] To Room Via : Stretcher Accompanied By : delivery manager ED Vital Signs : Document Height & Weight : Document ED Allergies : Document ED Reason for Visit : Document Tetanus Immunization : Unknown Tried to Harm Yourself in the Past? : No Thoughts of Harming/Killing Yourself : No Recent Thoughts of Harming/Killing Others : No Clinical Manager Home Care Needed : No Cornelia Baird RN - [...] Estimated Onset Date: Unspecified ; Created By: ContributorKargoCardsystem HIST_DotSpots; Reaction Status: Active ; Category: Drug ; Substance: No Known Allergies ; Type: Allergy ; Updated By: Contributor_system HIST_D[employer]; Reviewed Date: 03/22/2019 11:38 EDT Diagnosis Control ED (As Of: 03/22/2019 11:43:15 EDT) Problems(Active) A-fib (SNOMED CT :98460668 ) Name of Problem: A-fib ; Recorder: Isaac Dacosta Rn; Confirmation: Confirmed ; Classification: Patient Stated ; Code: 70015833 ; Contributor System: [employer] ; Last Updated: 12/23/2014 17:58 EDT ; Life Cycle Date: 12/23/2014 ; Life Cycle Status: Active ; Vocabulary: SNOMED CT Arthritis (SNOMED CT :4707355 ) Name of Problem: Arthritis ; Recorder: Isaac Dacosta Rn; Confirmation: Confirmed ; Classification: Patient Stated ; Code: 2637818 ; Contributor System: [employer] ; Last Updated: 12/23/2014 18:35 EDT ; Life Cycle Date: 12/23/2014 ; Life Cycle Status: Active ; Vocabulary: SNOMED CT Back pain, chronic (SNOMED CT :428905119 ) Name of Problem: Back pain, chronic ; Recorder: ARMANDO CASTRO RN; Confirmation: Confirmed ; Classification: Patient Stated ; Code: 661937541 ; Contributor System: PowerChart ; Last Updated: 06/17/2017 10:09 EST ; Life Cycle Date: 06/17/2017 ; Life Cycle Status: Active ; Vocabulary: SNOMED CT CAD (coronary artery disease) (SNOMED CT :71546891 ) Name of Problem: CAD (coronary artery disease) ; Recorder: Isaac Dacosta Rn; Confirmation: Confirmed ; Classification: Patient Stated ; Code: 93976060 ; Contributor System: PowerChart ; Last Updated: 12/23/2014 17:58 EDT ; Life Cycle Date: 12/23/2014 ; Life Cycle Status: Active ; Vocabulary: SNOMED CT Cardiomyopathy (SNOMED CT :719828748 ) Name of Problem: Cardiomyopathy ; Recorder: ARMANDO CASTRO RN; Confirmation: Confirmed ; Classification: Patient Stated ; Code: 306629805 ; Contributor System: PowerChart ; Last Updated: 06/17/2017 10:07 EST ; Life Cycle Date: 06/17/2017 ; Life Cycle Status: Active ; Vocabulary: SNOMED CT Carotid artery stenosis (SNOMED CT :734600960 ) Name of Problem: Carotid artery stenosis ; Recorder: ARMANDO CASTRO RN; Confirmation: Confirmed ; Classification: Patient Stated ; Code: 435383830 ; Contributor System: PowerChart ; Last Updated: 06/17/2017 10:08 EST ; Life Cycle Date: 06/17/2017 ; Life Cycle Status: Active ; Vocabulary: SNOMED CT Carpal tunnel syndrome (SNOMED CT :48504252 ) Name of Problem: Carpal tunnel syndrome ; Recorder: Isaac Dacosta Rn; Confirmation: Confirmed ; Classification: Patient Stated ; Code: 17621472 ; Contributor System: PowerChart ; Last Updated: 12/23/2014 18:34 EDT ; Life Cycle Date: 12/23/2014 ; Life Cycle Status: Active ; Vocabulary: SNOMED CT Chronic anxiety (SNOMED CT :633908761 ) Name of Problem: Chronic anxiety ; Recorder: ARMANDO CASTRO RN; Confirmation: Confirmed ; Classification: Patient Stated ; Code: 688048501 ; Contributor System: PowerChart ; Last Updated: 06/17/2017 10:11 EST ; Life Cycle Date: 06/17/2017 ; Life Cycle Status: Active ; Vocabulary: SNOMED CT Chronic depression (SNOMED CT :689286640 ) Name of Problem: Chronic depression ; Recorder: ARMANDO CASTRO RN; Confirmation: Confirmed ; Classification: Patient Stated ; Code: 455916517 ; Contributor System: [employer]arm[employer]Chart ; Last Updated: 06/17/2017 10:11 EST ; Life Cycle Date: 06/17/2017 ; Life Cycle Status: Active ; Vocabulary: SNOMED CT Cigarette smoker (SNOMED CT :549738656 ) Name of Problem: Cigarette smoker ; Recorder: Isaac Dacosta Rn; Confirmation: Confirmed ; Classification: Patient Stated ; Code: 742342219 ; Contributor System: PowerChart ; Last Updated: 12/23/2014 18:36 EDT ; Life Cycle Date: 12/23/2014 ; Life Cycle Status: Active ; Vocabulary: SNOMED CT Diabetes (SNOMED CT :608150370 ) Name of Problem: Diabetes ; Recorder: Isaac Dacosta Rn; Confirmation: Confirmed ; Classification: Patient Stated ; Code: 140470990 ; Contributor System: PowerChart ; Last Updated: 12/23/2014 17:57 EDT ; Life Cycle Date: 12/23/2014 ; Life Cycle Status: Active ; Vocabulary: SNOMED CT Diabetic peripheral neuropathy (SNOMED CT :8508773069 ) Name of Problem: Diabetic peripheral neuropathy ; Recorder: Isaac Dacosta Rn; Confirmation: Confirmed ; Classification: Patient Stated ; Code: 7590896719 ; Contributor System: PowerChart ; Last Updated: 12/23/2014 18:35 EDT ; Life Cycle Date: 12/23/2014 ; Life Cycle Status: Active ; Vocabulary: SNOMED CT GERD - Gastro-esophageal reflux disease (SNOMED CT :7871432981 ) Name of Problem: GERD - Gastro-esophageal reflux disease ; Recorder: ARMANDO CASTRO RN; Confirmation: Confirmed ; Classification: Patient Stated ; Code: 2231714574 ; Contributor System: PowerChart ; Last Updated: 06/17/2017 10:09 EST ; Life Cycle Date: 06/17/2017 ; Life Cycle Status: Active ; Vocabulary: SNOMED CT HLD (hyperlipidemia) (SNOMED CT :33162772 ) Name of Problem: HLD (hyperlipidemia) ; Recorder: Isaac Dacosta Rn; Confirmation: Confirmed ; Classification: Patient Stated ; Code: 20939084 ; Contributor System: PowerChart ; Last Updated: 12/23/2014 17:58 EDT ; Life Cycle Date: 12/23/2014 ; Life Cycle Status: Active ; Vocabulary: SNOMED CT HTN (hypertension) (SNOMED CT :9529623392 ) Name of Problem: HTN (hypertension) ; Recorder: Isaac Dacosta Rn; Confirmation: Confirmed ; Classification: Patient Stated ; Code: 5097862177 ; Contributor System: PowerChart ; Last Updated: 12/23/2014 17:58 EDT ; Life Cycle Date: 12/23/2014 ; Life Cycle Status: Active ; Vocabulary: SNOMED CT Hypothyroid (SNOMED CT :52328530 ) Name of Problem: Hypothyroid ; Recorder: Isaac Dacosta Rn; Confirmation: Confirmed ; Classification: Patient Stated ; Code: 40761320 ; Contributor System: PowerChart ; Last Updated: 12/23/2014 18:33 EDT ; Life Cycle Date: 12/23/2014 ; Life Cycle Status: Active ; Vocabulary: SNOMED CT IA (SNOMED CT :809368845 ) Name of Problem: IA ; Recorder: Isaac Dacosta Rn; Confirmation: Confirmed ; Classification: Patient Stated ; Code: 129314629 ; Contributor System: PowerChart ; Last Updated: 12/23/2014 17:57 EDT ; Life Cycle Date: 12/23/2014 ; Life Cycle Status: Active ; Vocabulary: SNOMED CT Obesity (SNOMED CT :1231737552 ) Name of Problem: Obesity ; Recorder: Isaac Dacosta Rn; Confirmation: Confirmed ; Classification: Patient Stated ; Code: 4085930299 ; Contributor System: PowerChart ; Last Updated: 12/23/2014 18:34 EDT ; Life Cycle Date: 12/23/2014 ; Life Cycle Status: Active ; Vocabulary: SNOMED CT Post-menopause (SNOMED CT :743475891 ) Name of Problem: Post-menopause ; Recorder: Isaac Dacosta Rn; Confirmation: Confirmed ; Classification: Patient Stated ; Code: 069716367 ; Contributor System: PowerChart ; Last Updated: 12/23/2014 18:35 EDT ; Life Cycle Date: 12/23/2014 ; Life Cycle Status: Active ; Vocabulary: SNOMED CT Sleep apnea (SNOMED CT :168322602 ) Name of Problem: Sleep apnea ; Recorder: ARMANDO CASTRO RN; Confirmation: Confirmed ; Classification: Patient Stated ; Code: 561199525 ; Contributor System: [employer] ; Last Updated: 06/17/2017 10:09 EST ; Life Cycle Date: 06/17/2017 ; Life Cycle Status: Active ; Vocabulary: SNOMED CT Syncope (SNOMED CT :900434981 ) Name of Problem: Syncope ; Recorder: ARMANDO CASTRO RN; Confirmation: Confirmed ; Classification: Patient Stated ; Code: 448945543 ; Contributor System: [employer] ; Last Updated: 06/17/2017 10:08 EST ; Life Cycle Date: 06/17/2017 ; Life Cycle Status: Active ; Vocabulary: SNOMED CT Diagnoses(Active) Chest pain Date: 03/22/2019 ; Diagnosis Type: Reason For Visit ; Confirmation: Complaint of ; Clinical Dx: Chest pain ; Classification: Medical ; Clinical Service: Emergency medicine ; Code: PNED ; Probability: 0 ; Diagnosis Code: [id number] ED Height and Weight Height Source : Stated Height Entry Format : [place] Height, Feet : 5 ft(Converted to: 152 cm, 60 Inch) Height, Inches : 2 Inch(Converted to: 0 ft 2 Inch, 5.08 cm) Clinical Height : 157.48 cm Weight Source, ED : Critical estimated dosing weight Weight Entry Format : [place] Weight, Pounds : 183 lb Clinical Dosing Weight : 83.18 kg Body Surface Area (BSA) : 1.84 m2 Body Mass Index : 33.5 kg/m2 (HI) [place] Body Weight (IBW) : 49.73 kg Cornelia Baird RN - 03/22/2019 11:36 EDT documented in this encounter Plan of Treatment Not on file documented as of this encounter Visit Diagnoses Not on filedocumented in this encounter
--- OUTSIDE RECORDS SUMMARY | 2024-12-31 17:03 | XMS_ITS | Data Portability ---
Author Organization [place] - [facility] [place] [facility] Address [address] [place] [address] Assessment No assessment recorded. Plan of Treatment [...] [facility] [address] [place] [address] Phone: Fax: Name: MICHELINE KIMBLE Exam Date: 024 : 963 Age 63 years Gender : F Access ion: [id number] Physic daniela: NARENDRA MURPHY Facili ty: [facility] Facili ty HSV: Inpati ent Exam: [place] [...] Legall y authen ticate d by GABY Carbajal MD 01-16 08:08: 46 DS:161 .91 cm/s2 DT:348 .53 (<=200 ) ms Tricus pid Valve Aortic Valve Peak:2 (<=2.5 ) m/s Peak Grad:1 6.08 (<=16) mmHg Mean:1 .06 m/s Mean Grad:5 .31 (<=5) mmHg AV VTI:30 .28 cm RODOLFO(ve l):1.6 7 (3-5) cm2 LVOT PV:0.9 1 (0.7-1 .1) m/s LVOT P.2 8 mmHg Pulmon ic Valve Report for MICHELINE BHARTI [place] [id number] on 4 Dictat ed By: SHARLENE KAHN Transc ribed By: KEELY STOLL Transc ribed On: 024 8:06 AM Electr onical ly signed by: SHARLENE KAHN 024 Thank you for referr MICHELINE Sanabria to [facility] al. Legall y kamille carbajal by GABY Carbajal MD 01-16 08:08: 46 CC'ed Logic: Orderi ng Provid er: GABY Carbajal Attend ing Provid er: BELTRAN -MARGAUXEsther MACKEY Referr ing Provid er: DEVIN CRAIN EDGAR Admitt ing Provid er: BELTRAN -MARGAUX NARENDRA [facility] [address] , [place], [address], 01/23/2024 11:56:46 Result Notes None recorded. Medical Equipment None Reported. [...] Not Available Not Available FreeStyle Laureen 2 Guild active Not Available Not Available Not Available Ozempic 1 mg/dose (4 mg/3 mL) subcutaneous pen injector INJECT 1 MG SUBCUTANEOU SLY WEEKLY FOR DIABETES active Not Available Not Available No t Available insulin glargine-yfg n (U-100) 100 unit/mL (3 mL) subcutaneous pen INJECT 15 UNITS UNDER THE THE SKIN ONCE DAILY active Not Available Not Available No t Available iHeal COVID-19 Antigen Rapid Home Test kit USE DIRECTED active Not Available Not Available No t Available Vitals Date Recorded Body weight Body mass index (BMI) Body height Heart rate Oxygen saturation Oxygen saturation in Arterial blood by Pulse oximetry Body temperature Systolic And Diastolic Provider Name and Address Organization Details Last Updated DateTime 3 [address].8 9 g 31.5 kg/m2 157.48 cm 88 /min 97 % 97 % 98.1 [degF] 128/78 mm[Hg] [facility] [place] 3 10:54:49 Social History None recorded. Functional Status None recorded. Mental Status None recorded. Family History Nothing Reported. Medical History No medical history recorded. Gynecological HistoryNo gynecological history recorded. Obstetrics History GPAL:G 0 P 0 0 0 0 Past Encounters Encounter ID Performer Location Encounter Start Date Encounter Closed Date Diagnosis/Indication Diagnosis SNOMED-CT Code Diagnosis ICD10 Code Diagnosis Note [id number] Willian Olea MD [address] [place] [address] 12/15/2022 10:35:04 12/15/2022 11:08:48 Osteomyelitis of right foot 7933608172 127064 M86.9 Chronic osteomyeli tis of the right [...] weeks. Methicilli n resistant Staphylococcus aureus infection 266884270 A49.02 As above. Health Concerns Section Related Observation LastModified by Organization Detai ls LastModified Time None Recorded Concern Status LastModified by Organization Details LastModified Time None Recorded Advance Directives Directive None Recorded Payers Insurance Date Sequence Insurance Name Policy Number Policy Mcdonald Covered Member ID Mcdonald Member ID Guarantor Name 05/27/2024 2 [place] [employer] [place] FFS/TRADITIONA L Micheline Lizm [id number] Micheline Coheniam 01/20/2024 1 [place] BC[place] OF [facility] MEDIBLUE PLUS (MEDICARE REPLACEMENT HMO) [id number] Micheline Coheniam [id number] Micheline Grajeda [employer] 12/10/2022 1 [facility] [place] [facility] HIXKY Micheline Coheniam [id number] Micheline Grajeda Mary 05/27/2024 1 [employer] Micheline Coheniam [id number] Micheline Hernandez Notes Date Note Type Note Provider Name and Address Organization Details Recorded Time 12/15/2022 text/html This is a 62-year-old white female following up with de for a chronic osteomyelitis of the right [...] No other issues today. Willian Olea MD [address] [facility], [place], [address], [facility] - [facility] & [place] 12/15/2022 11:04:34 OBGyn Episode No OBEpisode recorded.
--- OUTSIDE RECORDS SUMMARY | 2024-12-31 17:03 | XMS_ITS | Encounter Summary ---
Author Organization Healthcare Address [address] [place] [address] Care Team Providers Care Machinist Brake Name Role Phone Carmen Ramos Sterling APRN Primary Care Provider [phone] Encounter Details Date Type Department Care Team (Late st Contact Info) Description 08/01/2024 Orders Only External Location [address] [place] [address] Provider, External Social History Tobacco Use Types [...] any time in the past 12 m [facility], were you homeless or living in a fpc (including now)? No 05/28/2024 Utilities Answer Date [...] Info) Description 01/07/2025 3:00 PM EDT Appointment [facility] Vascular Lab [address] [place] [address] 01/07/2025 4:00 PM EDT Office Visit [facility] [address] [place] [address] Scotty Truong MD [address] [facility] [address] [place] [address] documented as of this encounter Procedures Procedure [...] documented as of this encounter Care Teams Machinist Brake Relationship Specialty Start Date End Date Ramos Morales APRN [address] [place] [address] PCP - General 06/25/24 documented as of this encounter
--- OUTSIDE RECORDS SUMMARY | 2024-12-31 17:03 | XMS_ITS | Encounter Summary ---
Author Organization [facility] Address [address] [place] [address] Care Team Providers Care Highway Truck Driver Name Role Phone Ramos Morales APRN Primary Care Provider [phone] Reason for Visit * Auth/Cert (Routine) Specialty Diagnoses / Procedures Referred By Contac t Referred To Contact Diagnoses Pyogenic arthritis of right knee joint, due to unspecified organism (CMS/HCC) Septic Knee Joint Conner Major MD [address] [place] [address] Phone: tel: fax: PAV A Inpatient [address] [place] [address] Referral ID Status Reason Start Date Expiration Date Visits Re quested Visits Authorized [id number] 1 1 Encounter Details Date Type Department Care Team (Late st Contact Info) Description 08/27/2024 Lab Requisition [facility] [address] [place] [address] Sina Villalobos, HAILE [address] [facility] [address] [place] [address] Encounter for general adult medical examination without [...] time in the past 12 m [facility], were you homeless or living in a chcf (including now)? Patient unable to answer 08/29/2024 Utilities Answer Date Recorded In the past 12 months has th e [employer], gas, oil, or water [employer] threatened to shut off services in your [...] Info) Description 01/07/2025 3:00 PM EDT Appointment [facility] Vascular Lab [address] [facility] 5th Floor [address] [place] [address] 01/07/2025 4:00 PM EDT Office Visit [facility] [address] [facility] 5th Floor [address] [place] [address] Scotty Truong MD [address] [place] [address] documented as of this encounter Procedures Procedure Name Priority Date/Time Associated Diagnosis Comments BODY FLUID CULTURE AND GRAM STAIN Routine 08/27/2024 1:05 PM EDT Encounter for general adult medical examination without abnormal findings documented in this encounter Results * (ABNORMAL) Body Fluid Culture and Gram Stain (08/27/2024 1:05 PM EDT) Culture Light Growth 08/29/2024 12:22 PM EDT [facility] Culture Methicillin-Resista nt Staphylococcus aureus(AA) YAMIL 08/29/2024 12:22 PM EDT [facility] Comment: The organism value for this result has been updated. These results have been appended to the previously preliminary verified report. Edited result: Previously reported as Staphylococcus aureus on 08/29/2024 at 0730 EDT. Staphylococcus aureus has been updated to reportable. Gram Stain Result Numerous Polymorphonuclear leukocytes(A) 08/29/2024 12:22 PM EDT [facility] Gram Stain Result Rare Gram positive cocci in pairs(A) 08/29/2024 12:22 PM EDT [facility] Joint Fluid Synovial fluid specimen / [...] LAB MICROBIOLOGY - GENERAL ORDERABLES Final Result [facility] [address] [place] [address] documented in this encounter Visit Diagnoses Diagnosis Encounter for general adult medical examination without abnormal findings documented in this encounter Additional Health Concerns Infection Onset Date Last Indicated Resolved Time MRSA 08/27/2024 08/28/2024 Assessment Noted Time A Body Mass Index follow-up plan has been documented for the patient 09/26/2024 11:03 AM EDT documented as of this encounter Care Teams Highway Truck Driver Relationship Specialty Start Date End Date Ramos Morales APRN [address] [place] [address] PCP - General 06/25/24 documented as of this encounter
--- OUTSIDE RECORDS SUMMARY | 2024-12-31 17:03 | XMS_ITS | Referral Summary ---
Author Organization [employer] ([place], [place], [place], [place]) Address [address] [place] [address] Care Team Providers Care Cell Changer Name Role Phone Unavailable Primary Care Provider [...]
--- OUTSIDE RECORDS SUMMARY | 2024-12-31 17:03 | XMS_ITS | Encounter Summary ---
Author Organization [facility] Address [address] [place] [address] Care Team Providers Care Lozenge Maker Helper Name Role Phone Ramos Morales APRN Primary Care Provider [phone] Reason for Visit * Auth/Cert (Routine) Specialty Diagnoses / Procedures Referred By Contac t Referred To Contact Diagnoses Pyogenic arthritis of right knee joint, due to unspecified organism (CMS/HCC) Septic Knee Joint Conner Major MD [address] [place] [address] Phone: tel: fax: [facility] Inpatient [address] [place] [address] Referral ID Status Reason Start Date Expiration Date Visits Re quested Visits Authorized [id number] 1 1 Encounter Details Date Type Department Care Team (Late st Contact Info) Description 08/27/2024 Lab Requisition [facility] [address] [place] [address] Sina Villalobos, HAILE [address] [facility] [address] [place] [address] Encounter for general adult medical examination without [...] [facility] or living in a jail (including now)? Patient unable to answer 08/29/2024 Utilities Answer Date Recorded In the past 12 months has th e [employer], gas, oil, or water [employer] threatened to shut off services in your [...] Info) Description 01/07/2025 3:00 PM EDT Appointment [facility] [address] [facility] 5th Floor [address] [place] [address] 01/07/2025 4:00 PM EDT Office Visit [facility] [address] [facility] 5th Floor [address] [place] [address] Scotty Truong MD [address] [facility] [address] [place] [address] documented as of this encounter Procedures Procedure [...] LAB HEMATOLOGY METHOD 08/28/2024 12:50 PM EDT [facility] Specimen Source, Body Fluid LAB HEMATOLOGY METHOD 08/28/2024 12:50 PM EDT [facility] Clinical Diagnosis, Body Fluid Septic arthritis LAB HEMATOLOGY METHOD 08/28/2024 12:50 PM EDT [facility] Interpretation , Body Fluid Degenerated acute inflammatory cells, please correlate with microbiology studies. A resident was involved in the service. I attest I examined the relevant preparations for the specimens and confirmed the diagnosis or interpretation. 08/28/2024 12:50 PM EDT [facility] Pathologist Signature, Body Fluid 08/28/2024 12:50 PM EDT [facility] Comment:Reviewed by: Larisa joyce MD LAB CP ASR DISCLAIMER Yes 08/28/2024 12:50 PM EDT [facility] Joint Fluid 08/27/2024 1:05 PM EDT 08/27/2024 3:14 PM EDT us Sina BE LAB BODY FLUIDS AND STOOLS ORDERABLES Final Result Performing Organization Address [facility] Co de Phone Number [facility] [address] [place] [address] * Synovial fluid, crystal (08/27/2024 1:05 PM EDT) Crystals, Joint Fluid No Crystals Seen No Crystals Present 08/27/2024 7:36 PM EDT [facility] Joint Fluid 08/27/2024 1:05 PM EDT 08/27/2024 3:14 PM EDT Sina BE LAB BODY FLUIDS AND STOOLS ORDERABLES Final Result [facility] [address] [place] [address] * (ABNORMAL) Body Fluid Cell Count w/ Diff (08/27/2024 1:05 PM EDT) Color, Body fluid Yellow LAB HEMATOLOGY METHOD 08/27/2024 7:45 PM EDT [facility] Appearance, Body fluid Cloudy(A) LAB HEMATOLOGY METHOD 08/27/2024 7:45 PM EDT [facility] Volume, Body fluid 1.0 cc LAB HEMATOLOGY METHOD 08/27/2024 7:45 PM EDT [facility] Fluid Container Specimen received in EDTA tube LAB HEMATOLOGY METHOD 08/27/2024 7:45 PM EDT [facility] Red Blood Cell Count, Body fluid 30,000 uL LAB HEMATOLOGY METHOD 08/27/2024 7:45 PM EDT [facility] Total Nucleated Cell Count, Body fluid >100,000 uL LAB HEMATOLOGY METHOD 08/27/2024 7:45 PM EDT [facility] Neutrophils %, Body fluid 95 % LAB HEMATOLOGY METHOD 08/27/2024 7:45 PM EDT [facility] Lymphocytes %, Body fluid 1 % LAB HEMATOLOGY METHOD 08/27/2024 7:45 PM EDT [facility] Monocytes/Macr ophages %, Body fluid 4 % LAB HEMATOLOGY METHOD 08/27/2024 7:45 PM EDT [facility] Eosinophils %, Body fluid 0 % LAB HEMATOLOGY METHOD 08/27/2024 7:45 PM EDT [facility] Lining/[place] lial Cells %, Body fluid 0 % LAB HEMATOLOGY METHOD 08/27/2024 7:45 PM EDT [facility] Neutrophils Absolute (PMN), Body fluid >9,500 uL LAB HEMATOLOGY METHOD 08/27/2024 7:45 PM EDT [facility] Lymphocytes Absolute, Body fluid >100 uL LAB HEMATOLOGY METHOD 08/27/2024 7:45 PM EDT [facility] Monocytes/Macr ophages Absolute, Body fluid >400 uL LAB HEMATOLOGY METHOD 08/27/2024 7:45 PM EDT [facility] Eosinophils Absolute, Body fluid 0 uL LAB HEMATOLOGY METHOD 08/27/2024 7:45 PM EDT [facility] Basophils Absolute, Body fluid 0 uL LAB HEMATOLOGY METHOD 08/27/2024 7:45 PM EDT [facility] Lining/[place] lial Cells Absolute, Body fluid 0 uL LAB HEMATOLOGY METHOD 08/27/2024 7:45 PM EDT [facility] Comment, Body fluid Differential and/or cell count may be inaccurate due to cellular degeneration. LAB HEMATOLOGY METHOD 08/27/2024 7:45 PM EDT [facility] Basophils %, Body fluid 0 % LAB HEMATOLOGY METHOD 08/27/2024 7:45 PM EDT [facility] Joint Fluid 08/27/2024 1:05 PM EDT 08/27/2024 3:14 PM EDT us Sina BE LAB BODY FLUIDS AN D STOOLS ORDERABLES NO SPECIMEN TYPE/SOURCE Final Result Performing Organization Address City/State/[facility] Co de Phone Number [facility] [address] [place] [address] documented in this encounter Visit Diagnoses Diagnosis Encounter for general adult medical examination without abnormal findings documented in this encounter Additional Health Concerns Infection Onset Date Last Indicated Resolved Time 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
[2024-12-31 17:04] VITALS: BP 147/89; PULSE 43; O2SAT 98
[2024-12-31 17:07] VITALS: BP 147/89; PULSE 52; RESP 16; TEMP 36.8; O2SAT 100; BMI 26.3
--- NOTE | 2024-12-31 17:07 | CT_ITS ---
PROCEDURE INFORMATION: Exam: CT Abdomen And Pelvis With Contrast Exam date and time: 12/31/2024 6:19 PM Age: 64 years old Clinical indication: Abdominal pain; Epigastric; Additional info: Epigastric pain/n/v TECHNIQUE: Imaging protocol: Computed tomography of the abdomen and pelvis with contrast. Radiation optimization: All CT scans at this facility use at least one of these dose optimization techniques: automated exposure control; mA and/or kV adjustment per patient size (includes targeted exams where dose is matched to clinical indication); or iterative reconstruction. Contrast material: ISOVUE; Contrast volume: 75 ml; Contrast route: IV; COMPARISON: CT ABDOMEN PELVIS W CON 11/02/2024 4:34 PM FINDINGS: Liver: Normal. No mass. Gallbladder and biliary ducts: Dependent density in the gallbladder appears new since the prior study, suggesting sludge or vicarious excretion contrast. No gallbladder thickening. Mild dilation of the common bile duct appears similar to previous. Pancreas: Normal. No ductal dilation. Spleen: Normal. No splenomegaly. Adrenal glands: Normal. No mass. 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 No hydronephrosis. Stomach and bowel: Unremarkable. No obstruction. No mucosal thickening. Appendix: No evidence of appendicitis. Intraperitoneal space: Unremarkable. No free air. No significant fluid collection. Vasculature: Dense atherosclerotic calcification throughout the aorta and its branches. No aneurysm or dissection. 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 [id number] bilateral renal artery stenosis. Lymph nodes: Unremarkable. No enlarged lymph nodes. Urinary bladder: Unremarkable as visualized. Reproductive: Uterus is absent. No adnexal abnormality. Bones/joints: Mild levoscoliosis of the lumbar spine. Moderate degenerative changes of the spine and right hip. Soft tissues: Unremarkable. IMPRESSION: No acute abnormality evident. Chronic findings as noted.
--- NOTE | 2024-12-31 17:09 | HMH.EDGENADL ---
Discharge Plan Disposition Patient Disposition: Home, Self-Care Condition: Good Prescriptions Prescriptions: New ondansetron 4 mg tablet,disintegrating 4 mg PO Q8H PRN (Reason: nausea and vomiting) 4 Days Qty: 12 0RF No Action polyethylene glycol 3350 [Miralax] 17 gram/dose powder 17 g PO DAILY sennosides [Senna Laxative] 8.6 mg tablet 17.2 mg PO DAILY 30 Days Qty: 60 3RF fluconazole 150 mg tablet 150 mg PO Q3D Qty: 2 0RF fluconazole 200 mg tablet 200 mg PO Q24H 14 Days Qty: 14 0RF sulfamethoxazole-trimethoprim [Bactrim DS] 800-160 mg tablet 1 tab PO BID 14 Days Qty: 28 0RF citalopram 20 mg tablet 20 mg PO DAILY Qty: 90 3RF lisinopril 40 mg tablet 40 mg PO HS Qty: 30 3RF pantoprazole 40 mg tablet,delayed release (DR/EC) 40 mg PO HS Qty: 90 3RF clopidogrel 75 mg tablet 75 mg PO DAILY Qty: 30 3RF allopurinol 100 mg tablet See Rx Instructions .ROUTE .COMPLEX Qty: 90 1RF Dose Instruction: TAKE 1 TABLET BY MOUTH EVERY DAY Rx Instructions: TAKE 1 TABLET BY MOUTH EVERY DAY ondansetron 4 mg tablet,disintegrating See Rx Instructions .ROUTE .COMPLEX Qty: 30 0RF Dose Instruction: TAKE 1 TABLET BY MOUTH EVERY 8 HOURS NEEDED FOR NAUSEA AND VOMITING Rx Instructions: TAKE 1 TABLET BY MOUTH EVERY 8 HOURS NEEDED FOR NAUSEA AND VOMITING furosemide 80 mg tablet 80 mg PO DAILY 30 Days Qty: 90 0RF carvedilol 25 mg tablet 12.5 mg PO BID Qty: 60 3RF gabapentin 400 mg tablet 200 mg PO TID 30 Days Qty: 45 0RF hydrocodone-acetaminophen 5-325 mg tablet 1 tab PO Q6HP PRN (Reason: Severe Pain (7-10)) 30 Days Qty: 120 0RF lubiprostone 8 mcg capsule 8 mcg PO BID Patient Comments: 1 CAPSULE WITH FOOD AND WATER ORALLY TWICE A DAY 30 DAYS aspirin [Darshana Low Dose Aspirin] 81 mg tablet,delayed release (DR/EC) 81 mg PO DAILY ferrous sulfate [Feosol] 325 mg (65 mg iron) tablet 325 mg PO DAILY levothyroxine 200 mcg tablet 200 mcg PO DAILYDM folic acid 1 mg Tablet 1 mg PO DAILY 30 Days Qty: 30 0RF cyanocobalamin (vitamin B-12) 1,000 mcg capsule 1,000 mcg PO DAILY Qty: 30 0RF bupropion HCl 150 mg tablet sustained-release 12 hr 150 mg PO BID spironolactone 25 mg tablet 25 mg PO DAILY Patient Comments: TAKE 1 TABLET BY MOUTH EVERY DAY atorvastatin 40 mg Tablet 40 mg PO HS Referrals Follow up/Referrals: Ramos Morales APRN [Primary Care Provider, Family Practice] - See instructions Bobby Pike II, MD [Staff Physician, Gastroenterology] - See instructions Activity Restrictions/Add. Instructions Additional Instructions/Restrictions: You were evaluated in the emergency department today. Today, your labs and imaging are reassuring. Please follow-up closely with your primary care provider as well as with GI for your intermittent abdominal pain. Return to the emergency department for new or worsening symptoms. 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 Take Tylenol every 4-6 hours as needed as well. Clinical Impressions Clinical Impression: Abdominal pain, Nausea & vomiting Stand Alone Forms Stand Alone Forms: Work/School Release Instructions Patient Instructions: DI for Abdominal Pain-Adult, DI for Nausea -- Adult Print Language Print Language: [place] Discharge ED Provider: Jaylin Zazueta General Adult HPI General Chief complaint: Nausea/Vomiting/Diarrhea Stated complaint: vomiting,weakness Time Seen by Provider: 12/31/24 16:55 History of Present Illness HPI narrative: This patient is a 64-year-old female with a history of type 2 diabetes, Charcot foot, chronic foot wound followed by podiatry undergoing hyperbaric medicine treatment, GERD, COPD, hypertension, hyperlipidemia, CHF, CAD presenting to the emergency department for evaluation concern for nausea, vomiting, and abdominal pain. Patient reports that she frequently has episodes of nausea and vomiting that are intermittent but typically are short-lived. She states that she has had nausea and vomiting that is nonbloody nonbilious for the last week that is not gone away. She has pain all across her abdomen. She denies any fevers, chills, chest pain, changes in bowel movements, or other concerns. As far as her foot wound goes, it is actually looking good with minimal serosanguineous drainage noted on bandages, no pus. Related Data Home Medications ?Medication ?Instructions ?Recorded ?Confirmed bupropion HCl 150 mg tablet,12 hr 150 mg PO BID 04/14/24 12/13/24 sustained-release spironolactone 25 mg tablet 25 mg PO DAILY 04/15/24 12/13/24 polyethylene glycol 3350 17 17 g PO DAILY 05/21/24 12/13/24 gram/dose oral powder (Miralax) aspirin 81 mg tablet,delayed 81 mg PO DAILY 10/20/24 12/13/24 release (Darshana Low Dose Aspirin) ferrous sulfate 325 mg (65 mg 325 mg PO DAILY 10/20/24 12/13/24 iron) tablet (Feosol) levothyroxine 200 mcg tablet 200 mcg PO DAILYDM 10/20/24 12/13/24 lubiprostone 8 mcg capsule 8 mcg PO BID 10/20/24 12/13/24 atorvastatin 40 mg tablet 40 mg PO HS 11/03/24 12/13/24 Previous Rx's ?Medication ?Instructions ?Recorded sennosides 8.6 mg tablet (Senna 17.2 mg (2 x 8.6 mg) PO DAILY 30 04/24/24 Laxative) days #60 tabs citalopram 20 mg tablet 20 mg PO DAILY #90 tabs 08/30/24 clopidogrel 75 mg tablet 75 mg PO DAILY #30 tabs 10/09/24 lisinopril 40 mg tablet 40 mg PO HS #30 tabs 10/09/24 pantoprazole 40 mg tablet,delayed 40 mg PO HS #90 tabs 10/09/24 release cyanocobalamin (vitamin B-12) 1,000 mcg PO DAILY #30 caps 10/26/24 1,000 mcg capsule folic acid 1 mg tablet 1 mg PO DAILY 30 days #30 tabs 10/26/24 fluconazole 150 mg tablet 150 mg PO Q3D 2 doses #2 tabs 11/22/24 fluconazole 200 mg tablet 200 mg PO Q24H Fungal infection 14 11/22/24 days #14 tabs sulfamethoxazole 800 1 tab PO BID cellulitis 14 days 11/22/24 mg-trimethoprim 160 mg tablet #28 tabs (Bactrim DS) allopurinol 100 mg tablet See Rx Instructions .Route 12/17/24 .COMPLEX #90 tabs ondansetron 4 mg disintegrating See Rx Instructions .Route 12/19/24 tablet .COMPLEX #30 tabs carvedilol 25 mg tablet 12.5 mg (1/2 x 25 mg) PO BID #60 12/20/24 tabs furosemide 80 mg tablet 80 mg PO DAILY 30 days #90 tabs 12/20/24 gabapentin 400 mg tablet 200 mg (1/2 x 400 mg) PO TID 30 12/20/24 days #45 tabs hydrocodone 5 mg-acetaminophen 325 1 tab PO Q6HP PRN Severe Pain 12/20/24 mg tablet (7-10) 30 days #120 tabs ondansetron 4 mg disintegrating 4 mg PO Q8H PRN nausea and 12/31/24 tablet vomiting 4 days #12 tabs Allergies Allergy/AdvReac Type Severity Reaction Status Date / Time canagliflozin (From [employer]) Allergy Severe kidney Verified 12/13/24 10:52 issues [facility] Disclaimer: The information contained in this section may have been updated after the patient was seen, as this information can be updated by other users. Medical History Osteomyelitis Tobacco dependence syndrome Hypertension Peripheral arterial disease CAD (coronary atherosclerotic disease) T2DM (type 2 diabetes mellitus) Decreased pedal pulses Ulcer of second toe of right foot Pulmonary edema Abnormal ankle brachial index (ELLIE) Acute on chronic systolic heart failure Closed left ankle fracture Elevated left ventricular end-diastolic pressure (LVEDP) Edema of both lower extremities Syncope Abnormal result of cardiovascular function study Typical angina Arthritis GERD (gastroesophageal reflux disease) Depression COPD (chronic obstructive pulmonary disease) Arrhythmia Hyperlipidemia Surgical History History of cancer surgery H/O total hysterectomy Hx of colonoscopy Family History Other Cancer Coronary artery disease Diabetes Heart attack Hypertension Stroke Social History Smoking Status: Smoker, status unknown tobacco type: cigarettes alcohol intake: never substance use type: denies use current occupational status: unemployed and disabled Travel in the last 8 weeks?: None household members: spouse housing: house Have you lived/traveled outside [place] in past 30 days?: No Contact w/someone who lives/traveled outside [place] past 30 days?: No Exposure to someone with infectious disease in past 14 days?: No Do you have a fever (greater than 100.4 F or 38 C)?: No Have you tested positive for COVID-19?: No Exposed to someone with COVID-19 in past 14 days?: No Do you have a sore throat?: No Do you have a cough?: No Do you have any weakness?: No Do you have any diarrhea?: No Are you experiencing any unusual bleeding?: No Do you have any muscle aches/pain?: No Do you have any abdominal pain?: No Are you experiencing loss of taste or smell?: No Other Medical History Have you received the Flu Vaccine for this season: No Have you received the Pneumonia Vaccine: No ROS Obtained: Yes All systems reviewed & no additional complaints except as documented Physical Exam General General appearance: alert and in no apparent distress Head Head exam: atraumatic and normocephalic Eye Eye exam: Present normal appearance, PERRL and EOMI ENT ENT exam: Present normal exam, normal oropharynx, mucous membranes moist and normal external ear exam Neck Neck exam: Present normal inspection, full ROM and trachea midline; Absent tenderness Chest Chest inspection: Present normal inspection and symmetric chest wall rise; Absent tenderness Respiratory Respiratory exam: Present normal lung sounds bilaterally; Absent respiratory distress, wheezes, stridor or accessory muscle use Cardiovascular Cardiovascular exam: Present regular rate and normal rhythm Abdominal Exam Abdominal exam: Present soft and tenderness (Mild generalized); Absent distention, guarding, rebound or rigidity Extremities Exam Extremities exam: Present full ROM, normal capillary refill and other (Foot wound looks good with healthy pink granulation tissue, no purulence or foul smell); Absent tenderness or edema Back Exam Back exam: Present normal inspection and full ROM; Absent tenderness Neurological Exam Neurological exam: Present alert, oriented X3, CN II-XII intact and normal gait; Absent motor sensory deficit Psychiatric Psychiatric exam: Present normal affect and normal mood Skin Skin exam: Present warm and dry Medical Decision Making Medical Records Medical records reviewed: Yes I reviewed the patient's medical records. Screening: Per USPSTF and CDC recommendations, given the prevalence of disease in our region, it is our hospital?s policy to screen for HIV and viral Hepatitis for all patients aged 18 and over and those with ongoing risk factors. Salty Inquiry Pt receiving controlled substance: No Vital Signs: 12/31/24 17:04 12/31/24 17:07 12/31/24 17:30 Temperature 98.2 F Temperature Source Oral Pulse Rate 43 L 68 Pulse Rate [Left] 52 L Respiratory Rate 16 Blood Pressure 147/89 H 135/77 Blood Pressure [Right Arm] 147/89 H Blood Pressure Mean 114 Blood Pressure Mean [Right Arm] 108 Blood Pressure Source Blood Pressure Source [Right Arm] Automatic Cuff Blood Pressure Position 02 Sat by Pulse Oximetry 98 100 Oxygen Delivery Method Room Air 12/31/24 18:01 12/31/24 21:32 Temperature 98.2 F Temperature Source Pulse Rate 69 Pulse Rate [Left] Respiratory Rate 16 Blood Pressure 138/54 L 141/87 H Blood Pressure [Right Arm] Blood Pressure Mean 82 Blood Pressure Mean [Right Arm] Blood Pressure Source Automatic Cuff Blood Pressure Source [Right Arm] Blood Pressure Position Sitting 02 Sat by Pulse Oximetry Oxygen Delivery Method Room Air Lab Data Lab results reviewed: Yes I reviewed the patient's lab results. Lab Results 12/31/24 17:24: WBC 8.2, RBC 4.05 L, Hgb 11.7 L, Hct 36.3 L, MCV 89.6, MCH 28.9, MCHC 32.2, RDW 14.3, Plt Count 300, MPV 8.6, Neut % (Auto) 55.8, Lymph % (Auto) 33.5, [place] % (Auto) 6.7, Eos % (Auto) 2.3, Baso % (Auto) 0.6, Neut # (Auto) 4.6, Lymph # (Auto) 2.8, [place] # (Auto) 0.6, Eos # (Auto) 0.2, Baso # (Auto) 0.1, Sodium 135 L, Potassium 4.7, Chloride 98, Carbon Dioxide 25, Anion Gap 16.7 H, BUN 24 H, Creatinine 1.00, Estimated Creat Clear 60, Estimated GFR 56 L, Est GFR ( Amer) 68, Glucose 135 H, Calcium 10.2, Total Bilirubin 0.5, AST 28, ALT 14, Alkaline Phosphatase 115, Troponin I 0.02, Total Protein 8.6 H, Albumin 4.4, Globulin 4.2 H, Albumin/Globulin Ratio 1.0 L, Lipase 49 12/31/24 19:00: Urine Color Yellow, Urine Appearance Clear, Urine pH 6.0, Ur Specific [place] 1.020, Urine Protein 1+ A, Urine Glucose (UA) 2+, Urine Ketones Negative, Urine Blood Negative, Urine Nitrate Negative, Urine Bilirubin Negative, Urine Urobilinogen 0.2, Ur Leukocyte Esterase Negative, Urine WBC 3-5, Ur Squamous Epith Cells 10-20, Urine Bacteria Trace, Hyaline Casts 3-5 12/31/24 19:13: Lactate 1.0 12/31/24 20:05: Troponin I 0.02 12/31/24 17:24 12/31/24 17:24 Orders (Tests/Meds): ED MEDICATIONS Discontinued Medications Generic Name Dose Route Start Last Admin Trade Name Freq PRN Reason Stop Dose Admin Acetaminophen 1,000 mg 12/31/24 17:08 12/31/24 17:28 Acetaminophen 1,000mg/100ml Vial IV 12/31/24 17:09 1,000 mg ONCE ONE Administration Famotidine 20 mg 12/31/24 17:08 12/31/24 17:28 Famotidine 20mg/2ml Vial IV 12/31/24 17:09 20 mg ONCE ONE Administration Iopamidol 75 ml 12/31/24 18:14 12/31/24 18:16 Iopamidol-370 (76%);100ml Bottle IV 12/31/24 18:15 75 ml ONCE ONE Administration Ondansetron HCl 4 mg 12/31/24 17:08 12/31/24 17:28 Ondansetron 4mg/2ml Vial IV 12/31/24 17:09 4 mg ONCE ONE Administration Sodium Chloride 8 ml 12/31/24 17:08 Sodium Chloride 0.9% 10ml Vial IV 01/30/25 17:07 NEEDED PRN dilute pepcid Sodium Chloride 10 ml 12/31/24 18:14 12/31/24 18:16 Sodium Chloride 0.9% 10ml Syr (Rad Only) IV 01/30/25 18:13 10 ml NEEDED PRN Administration Maintain IV Site ORDERS Category Date Time Status CT abdomen pelvis w con Stat Cat Scan 12/31/24 17:07 Completed Complete Blood Count Auto Diff Stat Lab 12/31/24 17:24 Completed Comprehensive Metabolic Panel Stat Lab 12/31/24 17:24 Completed Lactic Acid Stat Lab 12/31/24 19:13 Completed Lipase Stat Lab 12/31/24 17:24 Completed Trop I [Troponin I] Stat Lab 12/31/24 17:24 Completed Troponin I Q3H Lab 12/31/24 20:05 Completed UA [Urinalysis and Microscopic] Stat Lab 12/31/24 19:00 Completed ECG Data Tracing #1: I reviewed this ECG and interpreted as documented below: Normal sinus rhythm with a ventricular rate of 83 bpm. Right bundle branch block. No acute STEMI. PVC noted ECG initial impression date: 12/31/24 ECG initial impression time: 17:27 Medical Decision Narrative: In summary, this patient is a 64-year-old female presenting to the Emergency Department for evaluation of abdominal pain nausea and vomiting for the last week. Differential diagnoses considered include but are not limited to gastritis, pancreatitis, cholecystitis, colitis, cystitis, pyelonephritis. Ruling out the most morbid conditions drove assessment. It should be noted patient's history includes type 2 diabetes, hypertension, hyperlipidemia, CAD, CHF, chronic foot wound which may or may not be at goal therapy. This complicates all aspects of care by increasing patient's risk for morbidity. I reviewed patient's past medical records and noted prior admission for altered mental status. She was felt to have toxic encephalopathy, likely related to medications as well as chronic heart failure, CKD, and foot osteomyelitis. I also noted multiple prior evaluations by podiatry for her chronic foot wound and Charcot foot. On exam, the patient is lying in bed nontoxic appearing. She has generalized abdominal tenderness but no rebound or guarding. Her foot actually looks good with healthy pink cannulation tissue, no purulence or abnormal drainage. workup included CBC, CMP, lipase, troponin, lactic acid, urinalysis, EKG, CT abdomen pelvis with IV contrast. She was given IV Zofran, acetaminophen, and Pepcid for symptomatic improvement. I independently interpreted CT scan prior to the radiologist read and noted no obvious acute inflammatory or obstructive process. Please see their read for final interpretation. Labs were obtained that demonstrated reassuring CBC with no significant leukocytosis. She does have mild anemia. Chemistry demonstrates normal lactic acid, mildly elevated BUN and anion gap in the setting of vomiting likely related to dehydration, normal liver enzymes, normal lipase, negative troponins x 2. Urinalysis is negative for nitrates or leukocyte esterase I do not feel concern for an acute urinary tract infection.. On reassessment, patient had significant improvement after administration of the Zofran. She is able to tolerate oral intake with fluids without issue. She notes cyclic episodes of vomiting like this in the past. Ultimately, workup today has been reassuring with negative troponins x 2, normal CT, normal labs otherwise. I feel she is appropriate for discharge home with treatment with Zofran and close follow-up outpatient with PCP. Also advise that she can follow-up with GI for her recurrent cyclic vomiting in the past. She was discharged with strict return precautions. Critical Care Critical Care Time Critical Care Time: No
--- NOTE | 2024-12-31 17:25 | ECG_ITS ---
APPROVED REPORT Exam: Resting ECG HR:83 bpm ECG Measurements Heart Rate 83 AXES NV 175 P -13 QRSd 147 QRS 27 QT 421 T 71 QTc 461 Conclusion SINUS RHYTHM WITH OCCASIONAL VENTRICULAR PREMATURE COMPLEXES RIGHT BUNDLE BRANCH BLOCK [120+ ms QRS DURATION, UPRIGHT V1, 40+ ms S IN I/aVL/V4/V5/V6] No STEMI Electronically signed by : DYANA ALEXANDER, 01/01/2025 00:09:14
[2024-12-31] MEDS: ONDANSETRON 4MG/2ML VIAL 4 MG IV (17:28)
[2024-12-31] MEDS: FAMOTIDINE 20MG/2ML VIAL 20 MG IV (17:28)
[2024-12-31] MEDS: ACETAMINOPHEN 1,000MG/100ML VIAL 1000 MG IV (17:28)
[2024-12-31 17:30] VITALS: BP 135/77; PULSE 68
[2024-12-31 17:40] LABS: Hematocrit 36.3 % (37.0-47.0); Hemoglobin 11.7 g/dL (12.2-16.2); Immature Granulocytes % 1.1 %; Mean Corpuscular HGB Conc 32.2 g/dL (31.8-35.4); Mean Corpuscular Hemoglobin 28.9 pg (27.0-31.2); Mean Corpuscular Volume 89.6 fl (81-99); Nucleated Red Blood Cells % 0 %; Platelet Count 300 K/mm3 (142-424); Red Blood Count 4.05 M/mm3 (4.20-5.40); Red Cell Distribution Width-SD 46.8 fL; White Blood Count 8.2 K/mm3 (4.8-10.8)
[2024-12-31 17:50] LABS: Alanine Aminotransferase 14 U/L (12-78); Albumin Level 4.4 g/dl (3.5-5.0); Albumin/Globulin Ratio 1.0 (1.1-1.8); Alkaline Phosphatase 115 U/L (38-126); Anion Gap 16.7 mEq/L (5-15); Aspartate Amino Transferase 28 U/L (14-36); Bilirubin,Total 0.5 mg/dl (0.2-1.3); Blood Urea Nitrogen 24 mg/dl (7-17); Calcium 10.2 mg/dl (8.4-10.2); Carbon Dioxide 25 mmol/L (22.0-30.0); Chloride 98 mmol/L (98-107); Creatinine Clearance Estimated 60 mL/min (50-200); Creatinine,Serum 1.00 mg/dl (0.52-1.04); Estimated Glomerular Filt Rate 56 ml/min (>60); GFR (African American) 68 ML/MIN (>60); Globulin 4.2 g/dL (1.3-3.2); Glucose 135 mg/dl (74-100); Lipase 49 U/L (23-300); Potassium 4.7 mmoL/L (3.5-5.1); Sodium 135 mmol/L (136-145); Total Protein,Serum 8.6 g/dl (6.3-8.2)
[2024-12-31 18:01] VITALS: BP 138/54
[2024-12-31 18:02] LABS: Troponin I 0.02 ng/ml (0.00-0.034)
[2024-12-31] MEDS: IOPAMIDOL-370 (76%);100ML BOTTLE 75 ML IV (18:16)
[2024-12-31] MEDS: SODIUM CHLORIDE 0.9% 10ML SYR (RAD ONLY) 10 ML IV (18:16)
[2024-12-31 19:05] LABS: Microscopic, Urine URINE MICROSCOPIC (MICROSCOPIC)
[2024-12-31 19:09] LABS: Bilirubin,Urine Negative (Negative); Color,Urine YELLOW (Yellow); Glucose,Urine (UA) 2+ (Negative); Ketones,Urine Negative (Negative); Leukocyte Esterase,Urine Negative (Negative); PH,Urine 6.0 (5.0-8.5); Protein,Urine 1+ (Negative); Specific Gravity, Urine 1.020 (1.005-1.030); Urobilinogen,Urine 0.2 EU/dl (0.2)
[2024-12-31 19:48] LABS: Bacteria,Urine Trace /lpf
--- NOTE | 2024-12-31 19:49 | PC.NURSE ---
pt has two wounds on left foot, one wound on lateral part of foot is draining scant pus. pt swound cleansed, with mepilex placed over wound and heel for small scab present. right foot has scab/ stage 1 pressure injury on heel, mepilex placed over heel
--- NOTE | 2024-12-31 20:07 | PC.NURSE ---
IV would not draw or flush, pt straight stick for 2nd trop
[2024-12-31 20:40] LABS: Troponin I 0.02 ng/ml (0.00-0.034)
[2024-12-31 21:32] VITALS: BP 141/87; PULSE 69; RESP 16; TEMP 36.8; O2SAT 97
--- OUTSIDE RECORDS SUMMARY | 2025-02-01 20:00 | XMS_ITS | Clinical Summary ---
Author Organization Unknown Care Team Providers Care Manager Estate Name Role Phone STACY MAHAJAN BIAZZI NITRATOR OPERATOR, HAILEY Unavailable Unavailab fer CORONA RN, SEGUN Unavailable Unavailable DESHAWN EARLY CHILDHOOD TEACHER, LAURA Unavailable Unavailable BRIANNA PT, JASE Unavailable Unavailable CLYDE RENEWABLE ENERGY BROKER, IRMA Unavailable Unavailable JOSE OT, ZEUS Unavailable Unavailable Payers Payer Name Policy Type Policy Number Effective Date Expira tion Date KRISH.JAYMIE.O.C.[id number] Problems Condition Name Condition Details Condition Category [...] 06-20 00:00: 00 ATHSCL HEART DISEASE OF [place] CORONARY ARTERY W/O ANG PCTRS Active 06-20 [...] APNEA (ADULT) (PEDIATRIC) Active 06-20 00:00: 00 [facility] (CURRENT) USE OF INSULIN Active 11-06 00:00: [...] 2023-06 00:00: 00 10-19 00:00 :00 No [id number] ANTIBIOTIC 1 tablet 2 TIMES DAILY 1 tablet 2 TIMES DAILY (route: oral) Med Classific ation: Anti-Infe ctive Agents gabapentin 800 mg tablet 2023-06 00:00: 00 12-05 00:00 :00 No [id number] PAIN 1 tablet 4 TIMES DAILY 1 tablet 4 TIMES DAILY (route: oral) Med Classific ation: Central Nervous System Agents Ozempic 1 mg/dose (4 mg/3 mL) subcutaneou s pen injector 2023-06 00:00: 00 Yes [id number] T2DM 1 mg WEEKLY 1 mg WEEKLY (route: subcutaneo us) Med Classific ation: Endocrine hydrocodone 10 mg-acetamin ophen 325 mg tablet 2023-06 00:00: 00 12-05 00:00 :00 No [id number] PAIN 1 tablet EVERY 6 HOURS 1 tablet EVERY 6 HOURS (route: oral) Med Classific ation: Analgesic , Anti-infl ammatory or Antipyret ic Relistor 150 mg tablet 2023-06 00:00: 00 Yes [id number] CONSTIPATIO N 3 tablet DAILY 3 tablet DAILY (route: oral) Med Classific ation: Antidotes and other Reversal Agents allopurinol 100 mg tablet 06-27 00:00: 00 12-05 00:00 :00 No [id number] GOUT 1 tablet DAILY 1 tablet DAILY (route: oral) Med Classific ation: Gout and Hyperuric emia Therapy amitriptyli ne 50 mg tablet 06-27 00:00: 00 12-05 00:00 :00 No [id number] DEPRESSION 1 tablet BEDTIME 1 tablet BEDTIME (route: oral) Med Classific ation: Central Nervous System Agents Aspirin Childrens 81 mg chewable tablet 06-27 00:00: 00 Yes [id number] HEART 1 tablet DAILY 1 tablet DAILY (route: oral) Med Classific ation: Hematolog ical Agents atorvastati n 80 mg tablet 06-27 00:00: 00 Yes [id number] CHOLESTEROL 1 tablet BEDTIME 1 tablet BEDTIME (route: oral) Med Classific ation: Cardiovas cular Therapy Agents bupropion HCl SR 150 mg tablet,12 hr sustained-r elease 06-27 00:00: 00 Yes [id number] DEPRESSION 1 tablet 2 TIMES DAILY 1 tablet 2 TIMES DAILY (route: oral) Med Classific ation: Central Nervous System Agents carvedilol 25 mg tablet 06-27 00:00: 00 Yes [id number] BLOOD PRESSURE 1 tablet 2 TIMES DAILY 1 tablet 2 TIMES DAILY (route: oral) Med Classific ation: Cardiovas cular Therapy Agents citalopram 20 mg tablet 06-27 00:00: 00 Yes [id number] DEPRESSION 1 tablet BEDTIME 1 tablet BEDTIME (route: oral) Med Classific ation: Central Nervous System Agents clopidogrel 75 mg tablet 06-27 00:00: 00 Yes [id number] HEART 1 tablet DAILY 1 tablet DAILY (route: oral) Med Classific ation: Hematolog ical Agents fluconazole 150 mg tablet 06-27 00:00: 00 10-19 00:00 :00 No [id number] ANTI YEAST 2 tablet DAILY 2 tablet DAILY (route: oral) Med Classific ation: Anti-Infe ctive Agents furosemide 40 mg tablet 06-27 00:00: 00 12-05 00:00 :00 No [id number] EDEMA 1 tablet DAILY 1 tablet DAILY (route: oral) Med Classific ation: Cardiovas cular Therapy Agents Humalog KwikPen (U-100) Insulin 100 unit/mL subcutaneou s 06-27 00:00: 00 Yes [id number] T2DM 20 unit 3 TIMES DAILY 20 unit 3 TIMES DAILY (route: subcutaneo us) Med Classific ation: Endocrine Lantus Solostar U-100 Insulin 100 unit/mL (3 mL) [facility] 06-27 00:00: 00 Yes [id number] T2DM 20 unit EVERY PM 20 unit EVERY PM (route: subcutaneo us) Med Classific ation: Endocrine levothyroxi ne 200 mcg tablet 06-27 00:00: 00 Yes [id number] THYROID 1 tablet DAILY 1 tablet DAILY (route: oral) Med Classific ation: Endocrine lisinopril 40 mg tablet 06-27 00:00: 00 Yes [id number] HYPERTENSIO N 1 tablet DAILY 1 tablet DAILY (route: oral) Med Classific ation: Cardiovas cular Therapy Agents pantoprazol e 40 mg tablet,rena yed release 06-27 00:00: 00 12-05 00:00 :00 No [id number] GERD 1 tablet DAILY 1 tablet DAILY (route: oral) Med Classific ation: Gastroint estinal Therapy Agents spironolact one 25 mg tablet 06-27 00:00: 00 Yes [id number] BLOOD PRESSURE 1 tablet DAILY 1 tablet DAILY (route: oral) Med Classific ation: Cardiovas cular Therapy Agents Senna Lax 8.6 mg tablet 10-19 00:00: 00 Yes [id number] STOOL SOFTNER 2 tablet EVERY AM 2 tablet EVERY AM (route: oral) Med Classific ation: Gastroint estinal Therapy Agents gabapentin 100 mg capsule 12-05 00:00: 00 Yes [id number] NEUROPATHY 200 mg 3 TIMES DAILY 200 mg 3 TIMES DAILY (route: oral) Med Classific ation: Central Nervous System Agents hydrocodone 5 mg-acetamin ophen 325 mg tablet 12-05 00:00: 00 Yes [id number] PRN PAIN 1 tablet EVERY 6 HOURS 1 tablet EVERY 6 HOURS (route: oral) Med Classific ation: Analgesic , Anti-infl ammatory or Antipyret ic pramipexole 0.5 mg tablet 12-05 00:00: 00 Yes [id number] BLADDER 1 tablet BEDTIME 1 tablet BEDTIME (route: oral) Med Classific ation: Central Nervous System Agents Vital Signs Vital Name Observation Time Observation Value Commen ts Temperature 2024-12-24 13:58:00.000 97.2 [degF] Temperature 2024-12-18 14:49:00.000 97.7 [degF] Temperature 2024-12-12 17:03:00.000 97.4 [degF] Temperature 2024-12-07 14:36:00.000 98.5 [degF] Temperature 2024-12-05 12:30:00.000 98.4 [degF] BMI (%) 2024-12-05 12:14:46.000 26 kg/m2 Height 2024-12-05 12:14:40.000 62 [in_us] Pulse 2024-12-28 13:34:00.000 78 /min Pulse 2024-12-24 13:58:00.000 80 /min Pulse 2024-12-19 14:32:00.000 88 /min Pulse 2024-12-18 14:49:00.000 75 /min Pulse 2024-12-12 17:03:00.000 88 /min Pulse 2024-12-12 15:28:00.000 88 /min Pulse 2024-12-07 14:36:00.000 64 /min Pulse 2024-12-05 12:30:00.000 56 /min O2 Saturation (%) 2024-12-28 13:34:00.000 98 % O2 Saturation (%) 2024-12-19 14:32:00.000 98 % O2 Saturation (%) 2024-12-18 14:49:00.000 99 % O2 Saturation (%) 2024-12-12 15:28:00.000 99 % Respirations 2024-12-28 13:34:00.000 18 /min Respirations 2024-12-24 13:58:00.000 18 /min Respirations 2024-12-19 14:32:00.000 18 /min Respirations 2024-12-18 14:49:00.000 18 /min Respirations 2024-12-12 17:03:00.000 18 /min Respirations 2024-12-12 15:28:00.000 18 /min Respirations 2024-12-07 14:36:00.000 18 /min Respirations 2024-12-05 12:30:00.000 18 /min Weight (lbs) 2024-12-05 12:14:46.000 144 [lb_av] Systolic Blood Pressure 2024-12-24 13:58:00.000 110 mm [Hg] Systolic Blood Pressure 2024-12-19 14:32:00.000 128 mm [Hg] Systolic Blood Pressure 2024-12-18 14:49:00.000 132 mm [Hg] Systolic Blood Pressure 2024-12-12 17:03:00.000 142 mm [Hg] Systolic Blood Pressure 2024-12-12 15:28:00.000 142 mm [Hg] Systolic Blood Pressure 2024-12-07 14:36:00.000 116 mm [Hg] Systolic Blood Pressure 2024-12-05 12:30:00.000 109 mm [Hg] Diastolic Blood Pressure 2024-12-24 13:58:00.000 [...] FOR PODIATRY RN TO OBSERVE AND ASSESS, EARLY CHILDHOOD TEACHER/MEAT INSPECTOR TO OBSERVE FOR RISK FOR FALLS AND INSTRUCT IN FALL PREVENTION, HOME SAFETY, MEDICATION MANAGEMENT, INFECTION PREVENTION, AND NUTRITION MANAGEMENT. RN/EARLY CHILDHOOD TEACHER/MEAT INSPECTOR NURSE MAY PERFORM O2 SATURATION LEVEL ON ADMISSION AND PRN FOR WOUND COMPLICATIONS FOR RN TO ASSESS/EARLY CHILDHOOD TEACHER TO OBSERVE PATIENT, WITH NOTIFICATION TO THE PHYSICIAN IF SATURATION IS 90% IN THE ABSENCE OF MORE SPECIFIC PARAMETERS FROM THE PHYSICIAN. AGENCY MAY PERFORM A RESUMPTION OF CARE VISIT FOLLOWING ANY HOSPITAL ADMISSION. RN/EARLY CHILDHOOD TEACHER/MEAT INSPECTOR TO MONITOR CO-MORBID CONDITIONS LISTED ON THE PLAN OF CARE AND ANY NEW CONDITIONS THAT PRESENT THEMSELVES DURING THIS EPISODE TO IDENTIFY CHANGES AND INTERVENE TO MINIMIZE COMPLICATIONS. [code = RN TO OBSERVE, ASSESS, EVALUATE, AND DEVELOP AN INDIVIDUALIZED PLAN OF CARE. AGENCY MAY ACCEPT ORDERS FROM CONSULTING PHYSICIANS DR MULLINS FOR PODIATRY RN TO OBSERVE AND ASSESS, EARLY CHILDHOOD TEACHER/MEAT INSPECTOR TO OBSERVE FOR RISK FOR FALLS AND INSTRUCT IN FALL PREVENTION, HOME SAFETY, MEDICATION MANAGEMENT, INFECTION PREVENTION, AND NUTRITION MANAGEMENT. RN/EARLY CHILDHOOD TEACHER/MEAT INSPECTOR NURSE MAY PERFORM O2 SATURATION LEVEL ON ADMISSION AND PRN FOR WOUND COMPLICATIONS FOR RN TO ASSESS/EARLY CHILDHOOD TEACHER TO OBSERVE PATIENT, WITH NOTIFICATION TO THE PHYSICIAN IF SATURATION IS 90% IN THE ABSENCE OF MORE SPECIFIC PARAMETERS FROM THE PHYSICIAN. AGENCY MAY PERFORM A RESUMPTION OF CARE VISIT FOLLOWING ANY HOSPITAL ADMISSION. RN/EARLY CHILDHOOD TEACHER/MEAT INSPECTOR TO MONITOR CO-MORBID CONDITIONS LISTED ON THE PLAN OF CARE AND ANY NEW CONDITIONS THAT PRESENT THEMSELVES DURING THIS EPISODE TO IDENTIFY CHANGES AND INTERVENE TO MINIMIZE COMPLICATIONS.] Future Scheduled Test RISK FOR H OSPITALIZATION; RN TO ASSESS/TEACH, MEAT INSPECTOR/EARLY CHILDHOOD TEACHER TO OBSERVE/TEACH PATIENT/CAREGIVER ON RISK FOR HOSPITALIZATION/EMERGENCY ROOM VISITS, TEACH SIGNS AND SYMPTOMS THAT PUT PATIENT AT RISK, WHEN TO NOTIFY NURSE/PHYSICIAN OF COMPLICATIONS/DECLINE, AND WHEN TO CALL 911. [code = RISK FOR HOSPITALIZATION; RN TO ASSESS/TEACH, MEAT INSPECTOR/EARLY CHILDHOOD TEACHER TO OBSERVE/TEACH PATIENT/CAREGIVER ON RISK FOR HOSPITALIZATION/EMERGENCY ROOM VISITS, TEACH SIGNS AND SYMPTOMS THAT PUT PATIENT AT RISK, WHEN TO NOTIFY NURSE/PHYSICIAN OF COMPLICATIONS/DECLINE, AND WHEN TO CALL 911.] Future Scheduled Test SKIN INTEG RITY RN TO ASSESS AND TEACH, EARLY CHILDHOOD TEACHER/MEAT INSPECTOR TO OBSERVE AND TEACH INTEGUMENTARY STATUS TO IDENTIFY CHANGES AND INTERVENE TO MINIMIZE COMPLICATIONS. PROVIDE SKILLED TEACHING OF GENERAL WOUND AND SKIN CARE AND PREVENTION RELATED TO POTENTIAL FOR OR ACTUAL ALTERED SKIN INTEGRITY [code = SKIN INTEGRITY RN TO ASSESS AND TEACH, EARLY CHILDHOOD TEACHER/MEAT INSPECTOR TO OBSERVE AND TEACH INTEGUMENTARY STATUS TO IDENTIFY CHANGES AND INTERVENE TO MINIMIZE COMPLICATIONS. PROVIDE SKILLED TEACHING OF GENERAL WOUND AND SKIN CARE AND PREVENTION RELATED TO POTENTIAL FOR OR ACTUAL ALTERED SKIN INTEGRITY ] Future Scheduled Test RN TO ASSE SS, EARLY CHILDHOOD TEACHER/MEAT INSPECTOR TO OBSERVE DIABETIC FOOT ULCERS - NEUROPATHIC AND INTERVENE TO MINIMIZE COMPLICATIONS. PROVIDE SKILLED TEACHING TO PATIENT/CAREGIVER RELATED TO ALTERED SKIN INTEGRITY. REPORT SIGNIFICANT CHANGES IN STATUS TO PHYSICIAN FOR EARLY INTERVENTION. [code = RN TO ASSESS, EARLY CHILDHOOD TEACHER/MEAT INSPECTOR TO OBSERVE DIABETIC FOOT ULCERS - NEUROPATHIC AND INTERVENE TO MINIMIZE COMPLICATIONS. PROVIDE SKILLED TEACHING TO PATIENT/CAREGIVER RELATED TO ALTERED SKIN INTEGRITY. REPORT SIGNIFICANT CHANGES IN STATUS TO PHYSICIAN FOR EARLY INTERVENTION.] Future Scheduled Test RN/EARLY CHILDHOOD TEACHER/MEAT INSPECTOR TO PERFORM/TEACH WOUND CARE TO LEFT FOOT SURGICAL WOUND DAILY AND PRN IF SOILED, DAUGHTER TO DO WOUND CARE WHEN SN NOT VISITING IRRIGATE/CLEANSE WITH SALINE APPLY BETADINE MOISTENED GAUZE PACKED INTO WOUND BED MAY APPLY SKIN BARRIER TO PERIWOUND PRN TO PREVENT MACERATION AND PROTECT PERIWOUND COVER WITH ABD PAD AND GAUZE SECURE WITH KERLIX AND BECCA WRAP [code = RN/EARLY CHILDHOOD TEACHER/MEAT INSPECTOR TO PERFORM/TEACH WOUND CARE TO LEFT FOOT SURGICAL WOUND DAILY AND PRN IF SOILED, DAUGHTER TO DO WOUND CARE WHEN SN NOT VISITING IRRIGATE/CLEANSE WITH SALINE APPLY BETADINE MOISTENED GAUZE PACKED INTO WOUND BED MAY APPLY SKIN BARRIER TO PERIWOUND PRN TO PREVENT MACERATION AND PROTECT PERIWOUND COVER WITH ABD PAD AND GAUZE SECURE WITH KERLIX AND BECCA WRAP ] Future Scheduled Test RN/EARLY CHILDHOOD TEACHER/MEAT INSPECTOR TO PERFORM/TEACH PATIENT/CAREGIVER WOUND CARE TO DIABETIC ULCER TO RIGHT HEEL AND RIGHT OUTER FOOT IRRIGATE/CLEANSE SALINE APPLY ALGINATE MAY APPLY SKIN BARRIER TO PERIWOUND PRN TO PREVENT MACERATION AND PROTECT PERIWOUND COVER WITH OPTIFOAM BANDAGE OR GAUZE AND KERLIX AND SECURE WITH TAPE CHANGE DRESSING EVERY DAY AND PRN IF SOILED AND CG TO PERFORM IF SN NOT VISITING [code = RN/EARLY CHILDHOOD TEACHER/MEAT INSPECTOR TO PERFORM/TEACH PATIENT/CAREGIVER WOUND CARE TO DIABETIC [...] M ANAGEMENT; RN TO ASSESS AND TEACH, MEAT INSPECTOR/EARLY CHILDHOOD TEACHER TO OBSERVE AND TEACH INSTRUCTIONS OF DIABETIC CARE TO INCLUDE: DIET DIABETIC SKIN CARE, SIGNS AND SYMPTOMS OF HYPO/HYPERGLYCEMIA, PROPER ADMINISTRATION OF DIABETIC MEDICATION. RN/MEAT INSPECTOR/EARLY CHILDHOOD TEACHER TO INSTRUCT ON DIABETIC FOOT CARE AND MONITOR FOR SKIN LESIONS ON LOWER EXTREMITIES. BLOOD GLUCOSE TESTING 2 TIMES DAILY FREQ. RN TO ASSESS AND TEACH, MEAT INSPECTOR/EARLY CHILDHOOD TEACHER TO OBSERVE AND TEACH PATIENT/CAREGIVER ABILITY TO PERFORM AND RECORD BLOOD GLUCOSE TESTING ORDERED AND TO REPORT ABNORMAL FINDINGS TO PHYSICIAN. RN/MEAT INSPECTOR/EARLY CHILDHOOD TEACHER MAY PERFORM BLOOD GLUCOSE TEST NEEDED. RN/MEAT INSPECTOR/EARLY CHILDHOOD TEACHER TO REPORT TO PHYSICIAN BLOOD GLUCOSE READINGS GREATER THAN 300 LESS THAN 80 RN/MEAT INSPECTOR/EARLY CHILDHOOD TEACHER TO INSTRUCT PATIENT ON IMPORTANCE OF HGBA1C MONITORING, KIDNEY FUNCTION TEST, EYE AND FOOT EXAMS. [code = DIABETES MANAGEMENT; RN TO ASSESS AND TEACH, MEAT INSPECTOR/EARLY CHILDHOOD TEACHER TO OBSERVE AND TEACH INSTRUCTIONS OF DIABETIC CARE TO INCLUDE: DIET DIABETIC SKIN CARE, SIGNS AND SYMPTOMS OF HYPO/HYPERGLYCEMIA, PROPER ADMINISTRATION OF DIABETIC MEDICATION. RN/MEAT INSPECTOR/EARLY CHILDHOOD TEACHER TO INSTRUCT ON DIABETIC FOOT CARE AND MONITOR FOR SKIN LESIONS ON LOWER EXTREMITIES. BLOOD GLUCOSE TESTING 2 TIMES DAILY FREQ. RN TO ASSESS AND TEACH, MEAT INSPECTOR/EARLY CHILDHOOD TEACHER TO OBSERVE AND TEACH PATIENT/CAREGIVER ABILITY TO PERFORM AND RECORD BLOOD GLUCOSE TESTING ORDERED AND TO REPORT ABNORMAL FINDINGS TO PHYSICIAN. RN/MEAT INSPECTOR/EARLY CHILDHOOD TEACHER MAY PERFORM BLOOD GLUCOSE TEST NEEDED. RN/MEAT INSPECTOR/EARLY CHILDHOOD TEACHER TO REPORT TO PHYSICIAN BLOOD GLUCOSE READINGS GREATER THAN 300 LESS THAN 80 RN/MEAT INSPECTOR/EARLY CHILDHOOD TEACHER TO INSTRUCT PATIENT ON IMPORTANCE OF HGBA1C MONITORING, KIDNEY FUNCTION TEST, EYE AND FOOT EXAMS.] Future Scheduled Test GENITOURIN RICARDO MANAGEMENT; CURRENT UTI RN TO ASSESS AND TEACH, EARLY CHILDHOOD TEACHER/MEAT INSPECTOR TO OBSERVE AND TEACH RELATED TO ALTERED GENITOURINARY STATUS TO MINIMIZE COMPLICATIONS AND REDUCE HOSPITALIZATION. [code = GENITOURINARY MANAGEMENT; CURRENT UTI RN TO ASSESS AND TEACH, EARLY CHILDHOOD TEACHER/MEAT INSPECTOR TO OBSERVE AND TEACH RELATED TO ALTERED GENITOURINARY STATUS TO MINIMIZE COMPLICATIONS AND REDUCE HOSPITALIZATION.] Future Scheduled Test URINARY TR ACT INFECTION MANAGEMENT; RN/MEAT INSPECTOR/EARLY CHILDHOOD TEACHER TO PROVIDE SKILLED TEACHING AND SELF- CARE MANAGEMENT RELATED TO UTI TO MINIMIZE COMPLICATIONS AND REDUCE THE RISK OF HOSPITALIZATION. [code = URINARY TRACT INFECTION MANAGEMENT; RN/MEAT INSPECTOR/EARLY CHILDHOOD TEACHER TO PROVIDE SKILLED TEACHING AND SELF- CARE MANAGEMENT RELATED TO UTI TO MINIMIZE COMPLICATIONS AND REDUCE THE RISK OF HOSPITALIZATION.] Future Scheduled Test AGENCY MAY PERFORM A RESUMPTION OF CARE VISIT FOLLOWING ANY HOSPITAL ADMISSION. PT TO EVALUATE, OBSERVE / ASSESS, AND MONITOR, RENEWABLE ENERGY BROKER TO OBSERVE AND MONITOR, PROVIDE SKILLED THERAPEUTIC INTERVENTION, ACTIVITY, EDUCATION, AND TRAINING TO ADDRESS; THERAPEUTIC EXERCISES AND ESTABLISHING A HOME EXERCISE PROGRAM (PT/RENEWABLE ENERGY BROKER) WHEELCHAIR MOBILITY AND MANAGEMENT (PT/RENEWABLE ENERGY BROKER) SIT TO/FROM STAND TRANSFERS (PT/RENEWABLE ENERGY BROKER) PT / RENEWABLE ENERGY BROKER TO MONITOR AND EDUCATE ON OXYGEN SATURATION DURING ADLS/IADLS, NOTIFY PHYSICIAN AND/OR THE RN CLINICAL TRAFFIC SIGNAL MECHANIC FOR PHYSICIAN NOTIFICATION AND IF O2 SATS BELOW PHYSICIAN ORDERED PARAMETERS AFTER 10 MIN OF REST PT / RENEWABLE ENERGY BROKER TO INSTRUCT PATIENT/CAREGIVER ON RISK FOR HOSPITALIZATION/EMERGENCY ROOM VISITS, TEACH SIGNS AND SYMPTOMS THAT PUT PATIENT AT RISK, WHEN TO NOTIFY NURSE/PHYSICIAN OF COMPLICATIONS/DECLINE, AND WHEN TO CALL 911. PT/RENEWABLE ENERGY BROKER TO IDENTIFY FALL RISK FACTORS; EDUCATE THE PATIENT/CAREGIVER ON WAYS TO REDUCE FALL RISK FACTORS AND ESTABLISH HOME EXERCISE PROGRAM TO MINIMIZE FALL RISK. MAY TEACH THE PATIENT FLOOR RECOVERY WHEN CLINICALLY APPROPRIATE [code = AGENCY MAY PERFORM A RESUMPTION OF CARE VISIT FOLLOWING ANY HOSPITAL ADMISSION. PT TO EVALUATE, OBSERVE / ASSESS, AND MONITOR, RENEWABLE ENERGY BROKER TO OBSERVE AND MONITOR, PROVIDE SKILLED THERAPEUTIC INTERVENTION, ACTIVITY, EDUCATION, AND TRAINING TO ADDRESS; THERAPEUTIC EXERCISES AND ESTABLISHING A HOME EXERCISE PROGRAM (PT/RENEWABLE ENERGY BROKER) WHEELCHAIR MOBILITY AND MANAGEMENT (PT/RENEWABLE ENERGY BROKER) SIT TO/FROM STAND TRANSFERS (PT/RENEWABLE ENERGY BROKER) PT / RENEWABLE ENERGY BROKER TO MONITOR AND EDUCATE ON OXYGEN SATURATION DURING ADLS/IADLS, NOTIFY PHYSICIAN AND/OR THE RN CLINICAL TRAFFIC SIGNAL MECHANIC FOR PHYSICIAN NOTIFICATION AND IF O2 SATS BELOW PHYSICIAN ORDERED PARAMETERS AFTER 10 MIN OF REST PT / RENEWABLE ENERGY BROKER TO INSTRUCT PATIENT/CAREGIVER ON RISK FOR HOSPITALIZATION/EMERGENCY ROOM VISITS, TEACH SIGNS AND SYMPTOMS THAT PUT PATIENT AT RISK, WHEN TO NOTIFY NURSE/PHYSICIAN OF COMPLICATIONS/DECLINE, AND WHEN TO CALL 911. PT/RENEWABLE ENERGY BROKER TO IDENTIFY FALL RISK FACTORS; EDUCATE THE PATIENT/CAREGIVER ON WAYS TO REDUCE FALL RISK FACTORS AND ESTABLISH HOME EXERCISE PROGRAM TO MINIMIZE FALL RISK. MAY TEACH THE PATIENT FLOOR RECOVERY WHEN CLINICALLY APPROPRIATE] Future Scheduled Test AGENCY MAY PERFORM A RESUMPTION OF CARE VISIT FOLLOWING ANY HOSPITAL ADMISSION. OT TO EVALUATE, OBSERVE / ASSESS, AND MONITOR, NAHUN TO OBSERVE AND MONITOR, PROVIDE SKILLED THERAPEUTIC INTERVENTION, ACTIVITY, EDUCATION, AND TRAINING TO ADDRESS DEFICITS IN: BILATERAL PAWN BROKER STRENGTH/PAIN, ADL PERFORMANCE/SAFETY, SAFETY AWARENESS AND DISEASE MANAGEMENT. OFFICE OF HAILEY MAHAJAN NP, NOTIFIED OF COMPLETION OF THE OCCUPATIONAL THERAPY EVALUATION AND PLAN OF CARE, TO INCLUDE TREATMENT FREQUENCY AND DURATION OF 1W5. ANY CHANGES IN PATIENTS PLAN OF CARE OR TREATMENT FREQUENCY AND DURATION WILL BE DOCUMENTED IN THE PATIENT MEDICAL RECORD. PERSONAL HYGIENE/GROOMING (OT/NAHUN) DRESSING (OT/SCIENTIFIC SYSTEMS ANALYST) ACTIVITIES OF DAILY LIVING (OT/NAHUN) THERAPEUTIC EXERCISE (OT/NAHUN) OT/NAHUN MAY EDUCATE ON PAIN MANAGEMENT CLINICALLY INDICATED, INCLUDING NON-PHARMACOLOGICAL PAIN REDUCTION TECHNIQUES AND USE OF CRYOTHERAPY OR HEAT UP TO 20 MIN AT A TIME FOR PAIN MANAGEMENT TO BILATERAL HANDS. OT/SCIENTIFIC SYSTEMS ANALYST TO INSTRUCT PATIENT/CAREGIVER ON RISK FOR HOSPITALIZATION/EMERGENCY [...] TO EVALUATE, OBSERVE / ASSESS, AND MONITOR, NAHUN TO OBSERVE AND MONITOR, PROVIDE SKILLED THERAPEUTIC INTERVENTION, ACTIVITY, EDUCATION, AND TRAINING TO ADDRESS DEFICITS IN: BILATERAL PAWN BROKER STRENGTH/PAIN, ADL PERFORMANCE/SAFETY, SAFETY AWARENESS AND DISEASE MANAGEMENT. OFFICE OF HAILEY MAHAJAN NP, NOTIFIED OF COMPLETION OF THE OCCUPATIONAL THERAPY EVALUATION AND PLAN OF CARE, TO INCLUDE TREATMENT FREQUENCY AND DURATION OF 1W5. ANY CHANGES IN PATIENTS PLAN OF CARE OR TREATMENT FREQUENCY AND DURATION WILL BE DOCUMENTED IN THE PATIENT MEDICAL RECORD. PERSONAL HYGIENE/GROOMING (OT/SCIENTIFIC SYSTEMS ANALYST) DRESSING (OT/SCIENTIFIC SYSTEMS ANALYST) ACTIVITIES OF DAILY LIVING (OT/NAHUN) THERAPEUTIC EXERCISE (OT/NAHUN) OT/SCIENTIFIC SYSTEMS ANALYST MAY EDUCATE ON PAIN MANAGEMENT CLINICALLY INDICATED, INCLUDING NON-PHARMACOLOGICAL PAIN REDUCTION TECHNIQUES AND USE OF CRYOTHERAPY OR HEAT UP TO 20 MIN AT A TIME FOR PAIN MANAGEMENT TO BILATERAL HANDS. OT/SCIENTIFIC SYSTEMS ANALYST TO INSTRUCT PATIENT/CAREGIVER ON RISK FOR HOSPITALIZATION/EMERGENCY [...] WEEKS. OT LTG: PATIENT WILL DEMONSTRATE IMPROVED PAWN BROKER STRENGTH EVIDENCED BY AN IMPROVEMENT FROM 3+/5 [...] End Date/Time Encounter Type Admission Type Attending [facility] Care Facility Care Department Encounter ID Discharge Date Discharge Status Discharge Condition Discharge Reason Percent Goals Met 2024-12-05 00:00:00 2025-02-02 00:00:00 Outpatient SEGUN PICHARDO [facility] [id number]
--- OUTSIDE RECORDS SUMMARY | 2025-02-01 20:00 | XMS_ITS | Clinical Summary ---
Author Organization Unknown Care Team Providers Care Front Desk Receptionist Name Role Phone STACY MAHAJAN CREAM SEPARATOR OPERATOR, HAILEY Unavailable Unavailab fer CORONA RN, SEGUN Unavailable Unavailable DESHAWN REGISTERED NURSE CARDIOVASCULAR ICU, LAURA Unavailable Unavailable BRIANNA PT, JASE Unavailable Unavailable CLYDE PRODUCT SUPPORT CONSULTANT, IRMA Unavailable Unavailable JOSE OT, ZEUS Unavailable Unavailable Payers Payer Name Policy Type Policy Number Effective Date Expira tion Date KRISH.JAYMIE.O.C.[id number] Problems Condition Name Condition Details Condition Category [...] 06-20 00:00: 00 ATHSCL HEART DISEASE OF [place] CORONARY ARTERY W/O ANG PCTRS Active 06-20 [...] 2023-06 00:00: 00 10-19 00:00 :00 No [id number] ANTIBIOTIC 1 tablet 2 TIMES DAILY 1 tablet 2 TIMES DAILY (route: oral) Med Classific ation: Anti-Infe ctive Agents gabapentin 800 mg tablet 2023-06 00:00: 00 12-05 00:00 :00 No [id number] PAIN 1 tablet 4 TIMES DAILY 1 tablet 4 TIMES DAILY (route: oral) Med Classific ation: Central Nervous System Agents Ozempic 1 mg/dose (4 mg/3 mL) subcutaneou s pen injector 2023-06 00:00: 00 Yes [id number] T2DM 1 mg WEEKLY 1 mg WEEKLY (route: subcutaneo us) Med Classific ation: Endocrine hydrocodone 10 mg-acetamin ophen 325 mg tablet 2023-06 00:00: 00 12-05 00:00 :00 No [id number] PAIN 1 tablet EVERY 6 HOURS 1 tablet EVERY 6 HOURS (route: oral) Med Classific ation: Analgesic , Anti-infl ammatory or Antipyret ic Relistor 150 mg tablet 2023-06 00:00: 00 Yes [id number] CONSTIPATIO N 3 tablet DAILY 3 tablet DAILY (route: oral) Med Classific ation: Antidotes and other Reversal Agents allopurinol 100 mg tablet 06-27 00:00: 00 12-05 00:00 :00 No [id number] GOUT 1 tablet DAILY 1 tablet DAILY (route: oral) Med Classific ation: Gout and Hyperuric emia Therapy amitriptyli ne 50 mg tablet 06-27 00:00: 00 12-05 00:00 :00 No [id number] DEPRESSION 1 tablet BEDTIME 1 tablet BEDTIME (route: oral) Med Classific ation: Central Nervous System Agents Aspirin Childrens 81 mg chewable tablet 06-27 00:00: 00 Yes [id number] HEART 1 tablet DAILY 1 tablet DAILY (route: oral) Med Classific ation: Hematolog ical Agents atorvastati n 80 mg tablet 06-27 00:00: 00 Yes [id number] CHOLESTEROL 1 tablet BEDTIME 1 tablet BEDTIME (route: oral) Med Classific ation: Cardiovas cular Therapy Agents bupropion HCl SR 150 mg tablet,12 hr sustained-r elease 06-27 00:00: 00 Yes [id number] DEPRESSION 1 tablet 2 TIMES DAILY 1 tablet 2 TIMES DAILY (route: oral) Med Classific ation: Central Nervous System Agents carvedilol 25 mg tablet 06-27 00:00: 00 Yes [id number] BLOOD PRESSURE 1 tablet 2 TIMES DAILY 1 tablet 2 TIMES DAILY (route: oral) Med Classific ation: Cardiovas cular Therapy Agents citalopram 20 mg tablet 06-27 00:00: 00 Yes [id number] DEPRESSION 1 tablet BEDTIME 1 tablet BEDTIME (route: oral) Med Classific ation: Central Nervous System Agents clopidogrel 75 mg tablet 06-27 00:00: 00 Yes [id number] HEART 1 tablet DAILY 1 tablet DAILY (route: oral) Med Classific ation: Hematolog ical Agents fluconazole 150 mg tablet 06-27 00:00: 00 10-19 00:00 :00 No [id number] ANTI YEAST 2 tablet DAILY 2 tablet DAILY (route: oral) Med Classific ation: Anti-Infe ctive Agents furosemide 40 mg tablet 06-27 00:00: 00 12-05 00:00 :00 No [id number] EDEMA 1 tablet DAILY 1 tablet DAILY (route: oral) Med Classific ation: Cardiovas cular Therapy Agents Humalog KwikPen (U-100) Insulin 100 unit/mL subcutaneou s 06-27 00:00: 00 Yes [id number] T2DM 20 unit 3 TIMES DAILY 20 unit 3 TIMES DAILY (route: subcutaneo us) Med Classific ation: Endocrine Lantus Solostar U-100 Insulin 100 unit/mL (3 mL) [facility] 06-27 00:00: 00 Yes [id number] T2DM 20 unit EVERY PM 20 unit EVERY PM (route: subcutaneo us) Med Classific ation: Endocrine levothyroxi ne 200 mcg tablet 06-27 00:00: 00 Yes [id number] THYROID 1 tablet DAILY 1 tablet DAILY (route: oral) Med Classific ation: Endocrine lisinopril 40 mg tablet 06-27 00:00: 00 Yes [id number] HYPERTENSIO N 1 tablet DAILY 1 tablet DAILY (route: oral) Med Classific ation: Cardiovas cular Therapy Agents pantoprazol e 40 mg tablet,rean yed release 06-27 00:00: 00 12-05 00:00 :00 No [id number] GERD 1 tablet DAILY 1 tablet DAILY (route: oral) Med Classific ation: Gastroint estinal Therapy Agents spironolact one 25 mg tablet 06-27 00:00: 00 Yes [id number] BLOOD PRESSURE 1 tablet DAILY 1 tablet DAILY (route: oral) Med Classific ation: Cardiovas cular Therapy Agents Senna Lax 8.6 mg tablet 10-19 00:00: 00 Yes [id number] STOOL SOFTNER 2 tablet EVERY AM 2 tablet EVERY AM (route: oral) Med Classific ation: Gastroint estinal Therapy Agents gabapentin 100 mg capsule 12-05 00:00: 00 Yes [id number] NEUROPATHY 200 mg 3 TIMES DAILY 200 mg 3 TIMES DAILY (route: oral) Med Classific ation: Central Nervous System Agents hydrocodone 5 mg-acetamin ophen 325 mg tablet 12-05 00:00: 00 Yes [id number] PRN PAIN 1 tablet EVERY 6 HOURS 1 tablet EVERY 6 HOURS (route: oral) Med Classific ation: Analgesic , Anti-infl ammatory or Antipyret ic pramipexole 0.5 mg tablet 12-05 00:00: 00 Yes [id number] BLADDER 1 tablet BEDTIME 1 tablet BEDTIME [...] FOR PODIATRY RN TO OBSERVE AND ASSESS, REGISTERED NURSE CARDIOVASCULAR ICU/CASER IN TO OBSERVE FOR RISK FOR FALLS AND INSTRUCT IN FALL PREVENTION, HOME SAFETY, MEDICATION MANAGEMENT, INFECTION PREVENTION, AND NUTRITION MANAGEMENT. RN/REGISTERED NURSE CARDIOVASCULAR ICU/CASER IN NURSE MAY PERFORM O2 SATURATION LEVEL ON ADMISSION AND PRN FOR WOUND COMPLICATIONS FOR RN TO ASSESS/REGISTERED NURSE CARDIOVASCULAR ICU TO OBSERVE PATIENT, WITH NOTIFICATION TO THE PHYSICIAN IF SATURATION IS 90% IN THE ABSENCE OF MORE SPECIFIC PARAMETERS FROM THE PHYSICIAN. AGENCY MAY PERFORM A RESUMPTION OF CARE VISIT FOLLOWING ANY HOSPITAL ADMISSION. RN/REGISTERED NURSE CARDIOVASCULAR ICU/CASER IN TO MONITOR CO-MORBID CONDITIONS LISTED ON THE PLAN OF CARE AND ANY NEW CONDITIONS THAT PRESENT THEMSELVES DURING THIS EPISODE TO IDENTIFY CHANGES AND INTERVENE TO MINIMIZE COMPLICATIONS. [code = RN TO OBSERVE, ASSESS, EVALUATE, AND DEVELOP AN INDIVIDUALIZED PLAN OF CARE. AGENCY MAY ACCEPT ORDERS FROM CONSULTING PHYSICIANS DR MULLINS FOR PODIATRY RN TO OBSERVE AND ASSESS, REGISTERED NURSE CARDIOVASCULAR ICU/CASER IN TO OBSERVE FOR RISK FOR FALLS AND INSTRUCT IN FALL PREVENTION, HOME SAFETY, MEDICATION MANAGEMENT, INFECTION PREVENTION, AND NUTRITION MANAGEMENT. RN/REGISTERED NURSE CARDIOVASCULAR ICU/CASER IN NURSE MAY PERFORM O2 SATURATION LEVEL ON ADMISSION AND PRN FOR WOUND COMPLICATIONS FOR RN TO ASSESS/REGISTERED NURSE CARDIOVASCULAR ICU TO OBSERVE PATIENT, WITH NOTIFICATION TO THE PHYSICIAN IF SATURATION IS 90% IN THE ABSENCE OF MORE SPECIFIC PARAMETERS FROM THE PHYSICIAN. AGENCY MAY PERFORM A RESUMPTION OF CARE VISIT FOLLOWING ANY HOSPITAL ADMISSION. RN/REGISTERED NURSE CARDIOVASCULAR ICU/CASER IN TO MONITOR CO-MORBID CONDITIONS LISTED ON THE PLAN OF CARE AND ANY NEW CONDITIONS THAT PRESENT THEMSELVES DURING THIS EPISODE TO IDENTIFY CHANGES AND INTERVENE TO MINIMIZE COMPLICATIONS.] Future Scheduled Test RISK FOR H OSPITALIZATION; RN TO ASSESS/TEACH, CASER IN/REGISTERED NURSE CARDIOVASCULAR ICU TO OBSERVE/TEACH PATIENT/CAREGIVER ON RISK FOR HOSPITALIZATION/EMERGENCY ROOM VISITS, TEACH SIGNS AND SYMPTOMS THAT PUT PATIENT AT RISK, WHEN TO NOTIFY NURSE/PHYSICIAN OF COMPLICATIONS/DECLINE, AND WHEN TO CALL 911. [code = RISK FOR HOSPITALIZATION; RN TO ASSESS/TEACH, CASER IN/REGISTERED NURSE CARDIOVASCULAR ICU TO OBSERVE/TEACH PATIENT/CAREGIVER ON RISK FOR HOSPITALIZATION/EMERGENCY ROOM VISITS, TEACH SIGNS AND SYMPTOMS THAT PUT PATIENT AT RISK, WHEN TO NOTIFY NURSE/PHYSICIAN OF COMPLICATIONS/DECLINE, AND WHEN TO CALL 911.] Future Scheduled Test SKIN INTEG RITY RN TO ASSESS AND TEACH, REGISTERED NURSE CARDIOVASCULAR ICU/CASER IN TO OBSERVE AND TEACH INTEGUMENTARY STATUS TO IDENTIFY CHANGES AND INTERVENE TO MINIMIZE COMPLICATIONS. PROVIDE SKILLED TEACHING OF GENERAL WOUND AND SKIN CARE AND PREVENTION RELATED TO POTENTIAL FOR OR ACTUAL ALTERED SKIN INTEGRITY [code = SKIN INTEGRITY RN TO ASSESS AND TEACH, REGISTERED NURSE CARDIOVASCULAR ICU/CASER IN TO OBSERVE AND TEACH INTEGUMENTARY STATUS TO IDENTIFY CHANGES AND INTERVENE TO MINIMIZE COMPLICATIONS. PROVIDE SKILLED TEACHING OF GENERAL WOUND AND SKIN CARE AND PREVENTION RELATED TO POTENTIAL FOR OR ACTUAL ALTERED SKIN INTEGRITY ] Future Scheduled Test RN TO ASSE SS, REGISTERED NURSE CARDIOVASCULAR ICU/CASER IN TO OBSERVE DIABETIC FOOT ULCERS - NEUROPATHIC AND INTERVENE TO MINIMIZE COMPLICATIONS. PROVIDE SKILLED TEACHING TO PATIENT/CAREGIVER RELATED TO ALTERED SKIN INTEGRITY. REPORT SIGNIFICANT CHANGES IN STATUS TO PHYSICIAN FOR EARLY INTERVENTION. [code = RN TO ASSESS, REGISTERED NURSE CARDIOVASCULAR ICU/CASER IN TO OBSERVE DIABETIC FOOT ULCERS - NEUROPATHIC AND INTERVENE TO MINIMIZE COMPLICATIONS. PROVIDE SKILLED TEACHING TO PATIENT/CAREGIVER RELATED TO ALTERED SKIN INTEGRITY. REPORT SIGNIFICANT CHANGES IN STATUS TO PHYSICIAN FOR EARLY INTERVENTION.] Future Scheduled Test RN/REGISTERED NURSE CARDIOVASCULAR ICU/CASER IN TO PERFORM/TEACH WOUND CARE TO LEFT FOOT SURGICAL WOUND DAILY AND PRN IF SOILED, DAUGHTER TO DO WOUND CARE WHEN SN NOT VISITING IRRIGATE/CLEANSE WITH SALINE APPLY BETADINE MOISTENED GAUZE PACKED INTO WOUND BED MAY APPLY SKIN BARRIER TO PERIWOUND PRN TO PREVENT MACERATION AND PROTECT PERIWOUND COVER WITH ABD PAD AND GAUZE SECURE WITH KERLIX AND BECCA WRAP [code = RN/REGISTERED NURSE CARDIOVASCULAR ICU/CASER IN TO PERFORM/TEACH WOUND CARE TO LEFT FOOT SURGICAL WOUND DAILY AND PRN IF SOILED, DAUGHTER TO DO WOUND CARE WHEN SN NOT VISITING IRRIGATE/CLEANSE WITH SALINE APPLY BETADINE MOISTENED GAUZE PACKED INTO WOUND BED MAY APPLY SKIN BARRIER TO PERIWOUND PRN TO PREVENT MACERATION AND PROTECT PERIWOUND COVER WITH ABD PAD AND GAUZE SECURE WITH KERLIX AND BECCA WRAP ] Future Scheduled Test RN/REGISTERED NURSE CARDIOVASCULAR ICU/CASER IN TO PERFORM/TEACH PATIENT/CAREGIVER WOUND CARE TO DIABETIC ULCER TO RIGHT HEEL AND RIGHT OUTER FOOT IRRIGATE/CLEANSE SALINE APPLY ALGINATE MAY APPLY SKIN BARRIER TO PERIWOUND PRN TO PREVENT MACERATION AND PROTECT PERIWOUND COVER WITH OPTIFOAM BANDAGE OR GAUZE AND KERLIX AND SECURE WITH TAPE CHANGE DRESSING EVERY DAY AND PRN IF SOILED AND CG TO PERFORM IF SN NOT VISITING [code = RN/REGISTERED NURSE CARDIOVASCULAR ICU/CASER IN TO PERFORM/TEACH PATIENT/CAREGIVER WOUND CARE TO DIABETIC [...] M ANAGEMENT; RN TO ASSESS AND TEACH, CASER IN/REGISTERED NURSE CARDIOVASCULAR ICU TO OBSERVE AND TEACH INSTRUCTIONS OF DIABETIC CARE TO INCLUDE: DIET DIABETIC SKIN CARE, SIGNS AND SYMPTOMS OF HYPO/HYPERGLYCEMIA, PROPER ADMINISTRATION OF DIABETIC MEDICATION. RN/CASER IN/REGISTERED NURSE CARDIOVASCULAR ICU TO INSTRUCT ON DIABETIC FOOT CARE AND MONITOR FOR SKIN LESIONS ON LOWER EXTREMITIES. BLOOD GLUCOSE TESTING 2 TIMES DAILY FREQ. RN TO ASSESS AND TEACH, CASER IN/REGISTERED NURSE CARDIOVASCULAR ICU TO OBSERVE AND TEACH PATIENT/CAREGIVER ABILITY TO PERFORM AND RECORD BLOOD GLUCOSE TESTING ORDERED AND TO REPORT ABNORMAL FINDINGS TO PHYSICIAN. RN/CASER IN/REGISTERED NURSE CARDIOVASCULAR ICU MAY PERFORM BLOOD GLUCOSE TEST NEEDED. RN/CASER IN/REGISTERED NURSE CARDIOVASCULAR ICU TO REPORT TO PHYSICIAN BLOOD GLUCOSE READINGS GREATER THAN 300 LESS THAN 80 RN/CASER IN/REGISTERED NURSE CARDIOVASCULAR ICU TO INSTRUCT PATIENT ON IMPORTANCE OF HGBA1C MONITORING, KIDNEY FUNCTION TEST, EYE AND FOOT EXAMS. [code = DIABETES MANAGEMENT; RN TO ASSESS AND TEACH, CASER IN/REGISTERED NURSE CARDIOVASCULAR ICU TO OBSERVE AND TEACH INSTRUCTIONS OF DIABETIC CARE TO INCLUDE: DIET DIABETIC SKIN CARE, SIGNS AND SYMPTOMS OF HYPO/HYPERGLYCEMIA, PROPER ADMINISTRATION OF DIABETIC MEDICATION. RN/CASER IN/REGISTERED NURSE CARDIOVASCULAR ICU TO INSTRUCT ON DIABETIC FOOT CARE AND MONITOR FOR SKIN LESIONS ON LOWER EXTREMITIES. BLOOD GLUCOSE TESTING 2 TIMES DAILY FREQ. RN TO ASSESS AND TEACH, CASER IN/REGISTERED NURSE CARDIOVASCULAR ICU TO OBSERVE AND TEACH PATIENT/CAREGIVER ABILITY TO PERFORM AND RECORD BLOOD GLUCOSE TESTING ORDERED AND TO REPORT ABNORMAL FINDINGS TO PHYSICIAN. RN/CASER IN/REGISTERED NURSE CARDIOVASCULAR ICU MAY PERFORM BLOOD GLUCOSE TEST NEEDED. RN/CASER IN/REGISTERED NURSE CARDIOVASCULAR ICU TO REPORT TO PHYSICIAN BLOOD GLUCOSE READINGS GREATER THAN 300 LESS THAN 80 RN/CASER IN/REGISTERED NURSE CARDIOVASCULAR ICU TO INSTRUCT PATIENT ON IMPORTANCE OF HGBA1C MONITORING, KIDNEY FUNCTION TEST, EYE AND FOOT EXAMS.] Future Scheduled Test GENITOURIN RICARDO MANAGEMENT; CURRENT UTI RN TO ASSESS AND TEACH, REGISTERED NURSE CARDIOVASCULAR ICU/CASER IN TO OBSERVE AND TEACH RELATED TO ALTERED GENITOURINARY STATUS TO MINIMIZE COMPLICATIONS AND REDUCE HOSPITALIZATION. [code = GENITOURINARY MANAGEMENT; CURRENT UTI RN TO ASSESS AND TEACH, REGISTERED NURSE CARDIOVASCULAR ICU/CASER IN TO OBSERVE AND TEACH RELATED TO ALTERED GENITOURINARY STATUS TO MINIMIZE COMPLICATIONS AND REDUCE HOSPITALIZATION.] Future Scheduled Test URINARY TR ACT INFECTION MANAGEMENT; RN/CASER IN/REGISTERED NURSE CARDIOVASCULAR ICU TO PROVIDE SKILLED TEACHING AND SELF- CARE MANAGEMENT RELATED TO UTI TO MINIMIZE COMPLICATIONS AND REDUCE THE RISK OF HOSPITALIZATION. [code = URINARY TRACT INFECTION MANAGEMENT; RN/CASER IN/REGISTERED NURSE CARDIOVASCULAR ICU TO PROVIDE SKILLED TEACHING AND SELF- CARE MANAGEMENT RELATED TO UTI TO MINIMIZE COMPLICATIONS AND REDUCE THE RISK OF HOSPITALIZATION.] Future Scheduled Test AGENCY MAY PERFORM A RESUMPTION OF CARE VISIT FOLLOWING ANY HOSPITAL ADMISSION. PT TO EVALUATE, OBSERVE / ASSESS, AND MONITOR, PRODUCT SUPPORT CONSULTANT TO OBSERVE AND MONITOR, PROVIDE SKILLED THERAPEUTIC INTERVENTION, ACTIVITY, EDUCATION, AND TRAINING TO ADDRESS; THERAPEUTIC EXERCISES AND ESTABLISHING A HOME EXERCISE PROGRAM (PT/PRODUCT SUPPORT CONSULTANT) WHEELCHAIR MOBILITY AND MANAGEMENT (PT/PRODUCT SUPPORT CONSULTANT) SIT TO/FROM STAND TRANSFERS (PT/PRODUCT SUPPORT CONSULTANT) PT / PRODUCT SUPPORT CONSULTANT TO MONITOR AND EDUCATE ON OXYGEN SATURATION DURING ADLS/IADLS, NOTIFY PHYSICIAN AND/OR THE RN CLINICAL REFRACTORY SPECIALIST FOR PHYSICIAN NOTIFICATION AND IF O2 SATS BELOW PHYSICIAN ORDERED PARAMETERS AFTER 10 MIN OF REST PT / PRODUCT SUPPORT CONSULTANT TO INSTRUCT PATIENT/CAREGIVER ON RISK FOR HOSPITALIZATION/EMERGENCY ROOM VISITS, TEACH SIGNS AND SYMPTOMS THAT PUT PATIENT AT RISK, WHEN TO NOTIFY NURSE/PHYSICIAN OF COMPLICATIONS/DECLINE, AND WHEN TO CALL 911. PT/PRODUCT SUPPORT CONSULTANT TO IDENTIFY FALL RISK FACTORS; EDUCATE THE PATIENT/CAREGIVER ON WAYS TO REDUCE FALL RISK FACTORS AND ESTABLISH HOME EXERCISE PROGRAM TO MINIMIZE FALL RISK. MAY TEACH THE PATIENT FLOOR RECOVERY WHEN CLINICALLY APPROPRIATE [code = AGENCY MAY PERFORM A RESUMPTION OF CARE VISIT FOLLOWING ANY HOSPITAL ADMISSION. PT TO EVALUATE, OBSERVE / ASSESS, AND MONITOR, PRODUCT SUPPORT CONSULTANT TO OBSERVE AND MONITOR, PROVIDE SKILLED THERAPEUTIC INTERVENTION, ACTIVITY, EDUCATION, AND TRAINING TO ADDRESS; THERAPEUTIC EXERCISES AND ESTABLISHING A HOME EXERCISE PROGRAM (PT/PRODUCT SUPPORT CONSULTANT) WHEELCHAIR MOBILITY AND MANAGEMENT (PT/PRODUCT SUPPORT CONSULTANT) SIT TO/FROM STAND TRANSFERS (PT/PRODUCT SUPPORT CONSULTANT) PT / PRODUCT SUPPORT CONSULTANT TO MONITOR AND EDUCATE ON OXYGEN SATURATION DURING ADLS/IADLS, NOTIFY PHYSICIAN AND/OR THE RN CLINICAL REFRACTORY SPECIALIST FOR PHYSICIAN NOTIFICATION AND IF O2 SATS BELOW PHYSICIAN ORDERED PARAMETERS AFTER 10 MIN OF REST PT / PRODUCT SUPPORT CONSULTANT TO INSTRUCT PATIENT/CAREGIVER ON RISK FOR HOSPITALIZATION/EMERGENCY ROOM VISITS, TEACH SIGNS AND SYMPTOMS THAT PUT PATIENT AT RISK, WHEN TO NOTIFY NURSE/PHYSICIAN OF COMPLICATIONS/DECLINE, AND WHEN TO CALL 911. PT/PRODUCT SUPPORT CONSULTANT TO IDENTIFY FALL RISK FACTORS; EDUCATE THE [...] AND TRAINING TO ADDRESS DEFICITS IN: BILATERAL NATURAL GAS SHOTHOLE DRILLER STRENGTH/PAIN, ADL PERFORMANCE/SAFETY, SAFETY AWARENESS AND DISEASE MANAGEMENT. OFFICE OF HAILEY MAHAJAN NP, NOTIFIED OF COMPLETION OF THE OCCUPATIONAL THERAPY EVALUATION AND PLAN OF CARE, TO INCLUDE TREATMENT FREQUENCY AND DURATION OF 1W5. ANY CHANGES IN PATIENTS PLAN OF CARE OR TREATMENT FREQUENCY AND DURATION WILL BE DOCUMENTED IN THE PATIENT MEDICAL RECORD. PERSONAL HYGIENE/GROOMING (OT/NAHUN) DRESSING (OT/RETAIL AND RESTAURANT) ACTIVITIES OF DAILY LIVING (OT/NAHUN) THERAPEUTIC EXERCISE (OT/NAHUN) OT/NAHUN MAY EDUCATE ON PAIN MANAGEMENT CLINICALLY INDICATED, INCLUDING NON-PHARMACOLOGICAL PAIN REDUCTION TECHNIQUES AND USE OF CRYOTHERAPY OR HEAT UP TO 20 MIN AT A TIME FOR PAIN MANAGEMENT TO BILATERAL HANDS. OT/RETAIL AND RESTAURANT TO INSTRUCT PATIENT/CAREGIVER ON RISK FOR HOSPITALIZATION/EMERGENCY [...] AND TRAINING TO ADDRESS DEFICITS IN: BILATERAL NATURAL GAS SHOTHOLE DRILLER STRENGTH/PAIN, ADL PERFORMANCE/SAFETY, SAFETY AWARENESS AND DISEASE MANAGEMENT. OFFICE OF HAILEY MAHAJAN NP, NOTIFIED OF COMPLETION OF THE OCCUPATIONAL THERAPY EVALUATION AND PLAN OF CARE, TO INCLUDE TREATMENT FREQUENCY AND DURATION OF 1W5. ANY CHANGES IN PATIENTS PLAN OF CARE OR TREATMENT FREQUENCY AND DURATION WILL BE DOCUMENTED IN THE PATIENT MEDICAL RECORD. PERSONAL HYGIENE/GROOMING (OT/RETAIL AND RESTAURANT) DRESSING (OT/RETAIL AND RESTAURANT) ACTIVITIES OF DAILY LIVING (OT/NAHUN) THERAPEUTIC EXERCISE (OT/NAHUN) OT/RETAIL AND RESTAURANT MAY EDUCATE ON PAIN MANAGEMENT CLINICALLY INDICATED, INCLUDING NON-PHARMACOLOGICAL PAIN REDUCTION TECHNIQUES AND USE OF CRYOTHERAPY OR HEAT UP TO 20 MIN AT A TIME FOR PAIN MANAGEMENT TO BILATERAL HANDS. OT/RETAIL AND RESTAURANT TO INSTRUCT PATIENT/CAREGIVER ON RISK FOR HOSPITALIZATION/EMERGENCY [...] WEEKS. OT LTG: PATIENT WILL DEMONSTRATE IMPROVED NATURAL GAS SHOTHOLE DRILLER STRENGTH EVIDENCED BY AN IMPROVEMENT FROM 3+/5 [...] End Date/Time Encounter Type Admission Type Attending [facility] Care Facility Care Department Encounter ID Discharge Date Discharge Status Discharge Condition Discharge Reason Percent Goals Met 2024-12-05 00:00:00 2025-02-02 00:00:00 Outpatient SEGUN PICHARDO [facility] [id number]
== END 2024-12-31 21:33 | disposition home or self-care (01) ==
PROVIDERS: Emergency Provider Emergency Medicine; PCP Nurse Practitioner Family
DX: R10.84 Generalized abdominal pain (principal); R11.2 Nausea with vomiting, unspecified; F17.210 Nicotine dependence, cigarettes, uncomplicated; I45.10 Unspecified right bundle-branch block; I10 Essential (primary) hypertension; Z86.79 Personal history of other diseases of the circulatory system
CPT/HCPCS: 74177; 80053; 81001; 83605; 83690; 84484; 85025; 93005; 96374; 96375; 99285; J0131; J2405; Q9967

== ENCOUNTER 2025-01-04 10:20 | Outpatient (CLI) | payer MEDICARE, MEDICAID, SELFPAY ==
--- OUTSIDE RECORDS SUMMARY | 2025-01-04 10:21 | XMS_ITS | Continuity of Care Document ---
Author Organization Formerly [facility]. If a dditional information is needed, contact Health Information Management at [phone] [address] [place] [address] Phone Care Team Providers Care Electrical Engineer Mep Name Role Phone Unavailable Unavailable Unavailable Encounters pre-admission 06-Sep-2023 11:21 Neo Boles (Attending) Collette
--- OUTSIDE RECORDS SUMMARY | 2025-01-04 10:23 | XMS_ITS | Encounter Summary ---
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 : No Thoughts of Harming/Killing Yourself : No Recent Thoughts of Harming/Killing Others : No Mri Specialist Needed : No Cornelia Baird RN [...] Estimated Onset Date: Unspecified ; Created By: ContributorYouBeQBsystem HIST_[employer]; Reaction Status: Active ; Category: Drug ; Substance: No Known Allergies ; Type: Allergy ; Updated By: Contributor_system HIST_[employer]; Reviewed Date: 03/22/2019 11:38 EDT Diagnosis Control ED (As Of: 03/22/2019 11:43:15 EDT) Problems(Active) A-fib (SNOMED CT :85134775 ) Name of Problem: A-fib ; Recorder: Isaac Dacosta Rn; Confirmation: Confirmed ; Classification: Patient Stated ; Code: [id number] ; Contributor System: mYwindow ; Last Updated: 12/23/2014 17:58 EDT ; Life Cycle Date: 12/23/2014 ; Life Cycle Status: Active ; Vocabulary: SNOMED CT Arthritis (SNOMED CT :4325365 ) Name of Problem: Arthritis ; Recorder: Isaca Dacosta Rn; Confirmation: Confirmed ; Classification: Patient Stated ; Code: 6707208 ; Contributor System: mYwindow ; Last Updated: 12/23/2014 18:35 EDT ; Life Cycle Date: 12/23/2014 ; Life Cycle Status: Active ; Vocabulary: SNOMED CT Back pain, chronic (SNOMED CT :231193646 ) Name of Problem: Back pain, chronic ; Recorder: ARMANDO CASTRO RN; Confirmation: Confirmed ; Classification: Patient Stated ; Code: 195949675 ; Contributor System: PowerChart ; Last Updated: 06/17/2017 10:09 EST ; Life Cycle Date: 06/17/2017 ; Life Cycle Status: Active ; Vocabulary: SNOMED CT CAD (coronary artery disease) (SNOMED CT :75534333 ) Name of Problem: CAD (coronary artery disease) ; Recorder: Isaac Dacosta Rn; Confirmation: Confirmed ; Classification: Patient Stated ; Code: 70087127 ; Contributor System: PowerChart ; Last Updated: 12/23/2014 17:58 EDT ; Life Cycle Date: 12/23/2014 ; Life Cycle Status: Active ; Vocabulary: SNOMED CT Cardiomyopathy (SNOMED CT :818069658 ) Name of Problem: Cardiomyopathy ; Recorder: ARMANDO CASTRO RN; Confirmation: Confirmed ; Classification: Patient Stated ; Code: 446443074 ; Contributor System: PowerChart ; Last Updated: 06/17/2017 10:07 EST ; Life Cycle Date: 06/17/2017 ; Life Cycle Status: Active ; Vocabulary: SNOMED CT Carotid artery stenosis (SNOMED CT :615637867 ) Name of Problem: Carotid artery stenosis ; Recorder: ARMANDO CASTRO RN; Confirmation: Confirmed ; Classification: Patient Stated ; Code: 419717676 ; Contributor System: PowerChart ; Last Updated: 06/17/2017 10:08 EST ; Life Cycle Date: 06/17/2017 ; Life Cycle Status: Active ; Vocabulary: SNOMED CT Carpal tunnel syndrome (SNOMED CT :50325567 ) Name of Problem: Carpal tunnel syndrome ; Recorder: Isaac Dacosta Rn; Confirmation: Confirmed ; Classification: Patient Stated ; Code: 27808524 ; Contributor System: PowerChart ; Last Updated: 12/23/2014 18:34 EDT ; Life Cycle Date: 12/23/2014 ; Life Cycle Status: Active ; Vocabulary: SNOMED CT Chronic anxiety (SNOMED CT :687183790 ) Name of Problem: Chronic anxiety ; Recorder: ARMANDO CASTRO RN; Confirmation: Confirmed ; Classification: Patient Stated ; Code: 918215907 ; Contributor System: PowerChart ; Last Updated: 06/17/2017 10:11 EST ; Life Cycle Date: 06/17/2017 ; Life Cycle Status: Active ; Vocabulary: SNOMED CT Chronic depression (SNOMED CT :424925016 ) Name of Problem: Chronic depression ; Recorder: ARMANDO CASTRO RN; Confirmation: Confirmed ; Classification: Patient Stated ; Code: 124425233 ; Contributor System: VupenChart ; Last Updated: 06/17/2017 10:11 EST ; Life Cycle Date: 06/17/2017 ; Life Cycle Status: Active ; Vocabulary: SNOMED CT Cigarette smoker (SNOMED CT :603627815 ) Name of Problem: Cigarette smoker ; Recorder: Isaac Dacosta Rn; Confirmation: Confirmed ; Classification: Patient Stated ; Code: 758207627 ; Contributor System: PowerChart ; Last Updated: 12/23/2014 18:36 EDT ; Life Cycle Date: 12/23/2014 ; Life Cycle Status: Active ; Vocabulary: SNOMED CT Diabetes (SNOMED CT :326318699 ) Name of Problem: Diabetes ; Recorder: Isaac Dacosta Rn; Confirmation: Confirmed ; Classification: Patient Stated ; Code: 485380345 ; Contributor System: PowerChart ; Last Updated: 12/23/2014 17:57 EDT ; Life Cycle Date: 12/23/2014 ; Life Cycle Status: Active ; Vocabulary: SNOMED CT Diabetic peripheral neuropathy (SNOMED CT :0002737417 ) Name of Problem: Diabetic peripheral neuropathy ; Recorder: Isaac Dacosta Rn; Confirmation: Confirmed ; Classification: Patient Stated ; Code: 2083256709 ; Contributor System: PowerChart ; Last Updated: 12/23/2014 18:35 EDT ; Life Cycle Date: 12/23/2014 ; Life Cycle Status: Active ; Vocabulary: SNOMED CT GERD - Gastro-esophageal reflux disease (SNOMED CT :2496657862 ) Name of Problem: GERD - Gastro-esophageal reflux disease ; Recorder: ARMANDO CASTRO RN; Confirmation: Confirmed ; Classification: Patient Stated ; Code: 2685523920 ; Contributor System: PowerChart ; Last Updated: 06/17/2017 10:09 EST ; Life Cycle Date: 06/17/2017 ; Life Cycle Status: Active ; Vocabulary: SNOMED CT HLD (hyperlipidemia) (SNOMED CT :39981816 ) Name of Problem: HLD (hyperlipidemia) ; Recorder: Isaac Dacosta Rn; Confirmation: Confirmed ; Classification: Patient Stated ; Code: 99392764 ; Contributor System: PowerChart ; Last Updated: 12/23/2014 17:58 EDT ; Life Cycle Date: 12/23/2014 ; Life Cycle Status: Active ; Vocabulary: SNOMED CT HTN (hypertension) (SNOMED CT :6496267200 ) Name of Problem: HTN (hypertension) ; Recorder: Isaac Dacosta Rn; Confirmation: Confirmed ; Classification: Patient Stated ; Code: 9920943697 ; Contributor System: PowerChart ; Last Updated: 12/23/2014 17:58 EDT ; Life Cycle Date: 12/23/2014 ; Life Cycle Status: Active ; Vocabulary: SNOMED CT Hypothyroid (SNOMED CT :92653829 ) Name of Problem: Hypothyroid ; Recorder: Isaac Dacosta Rn; Confirmation: Confirmed ; Classification: Patient Stated ; Code: 07371716 ; Contributor System: PowerChart ; Last Updated: 12/23/2014 18:33 EDT ; Life Cycle Date: 12/23/2014 ; Life Cycle Status: Active ; Vocabulary: SNOMED CT KS (SNOMED CT :940647242 ) Name of Problem: KS ; Recorder: Isaac Dacosta Rn; Confirmation: Confirmed ; Classification: Patient Stated ; Code: 505134054 ; Contributor System: PowerChart ; Last Updated: 12/23/2014 17:57 EDT ; Life Cycle Date: 12/23/2014 ; Life Cycle Status: Active ; Vocabulary: SNOMED CT Obesity (SNOMED CT :2217532296 ) Name of Problem: Obesity ; Recorder: Isaac Dacosta Rn; Confirmation: Confirmed ; Classification: Patient Stated ; Code: 6890752985 ; Contributor System: PowerChart ; Last Updated: 12/23/2014 18:34 EDT ; Life Cycle Date: 12/23/2014 ; Life Cycle Status: Active ; Vocabulary: SNOMED CT Post-menopause (SNOMED CT :144112750 ) Name of Problem: Post-menopause ; Recorder: Isaac Dacosta Rn; Confirmation: Confirmed ; Classification: Patient Stated ; Code: 769429511 ; Contributor System: PowerChart ; Last Updated: 12/23/2014 18:35 EDT ; Life Cycle Date: 12/23/2014 ; Life Cycle Status: Active ; Vocabulary: SNOMED CT Sleep apnea (SNOMED CT :594961187 ) Name of Problem: Sleep apnea ; Recorder: ARMANDO CASTRO RN; Confirmation: Confirmed ; Classification: Patient Stated ; Code: 953650572 ; Contributor System: mYwindow ; Last Updated: 06/17/2017 10:09 EST ; Life Cycle Date: 06/17/2017 ; Life Cycle Status: Active ; Vocabulary: SNOMED CT Syncope (SNOMED CT :527951692 ) Name of Problem: Syncope ; Recorder: ARMANDO CASTRO RN; Confirmation: Confirmed ; Classification: Patient Stated ; Code: 199734656 ; Contributor System: mYwindow ; Last Updated: 06/17/2017 10:08 EST ; Life Cycle Date: 06/17/2017 ; Life Cycle Status: Active ; Vocabulary: SNOMED CT Diagnoses(Active) Chest pain Date: 03/22/2019 ; Diagnosis Type: Reason For Visit ; Confirmation: Complaint of ; Clinical Dx: Chest pain ; Classification: Medical ; Clinical Service: Emergency medicine ; Code: PNED ; Probability: 0 ; Diagnosis Code: [id number] ED Height and Weight Height Source : Stated Height Entry Format : [place] Height, Feet : 5 ft(Converted to: 152 cm, 60 Inch) Height, Inches : 2 Inch(Converted to: 0 ft 2 Inch, 5.08 cm) Clinical Height : 157.48 cm Weight Source, ED : Critical estimated dosing weight Weight Entry Format : [place] Weight, Pounds : 183 lb Clinical Dosing Weight : 83.18 kg Body Surface Area (BSA) : 1.84 m2 Body Mass Index : 33.5 kg/m2 (HI) Leroy Body Weight (IBW) : 49.73 kg Cornelia Baird RN - 03/22/2019 11:36 EDT Electronically signed by Janie Manriquez Conversion Desktop Publishing Associate Cerner at 10/06/2022 1:01 PM CDT documented in this encounter Plan of Treatment Not on file documented as of this encounter Visit Diagnoses Not on filedocumented in this encounter
--- OUTSIDE RECORDS SUMMARY | 2025-01-04 10:23 | XMS_ITS | Encounter Summary ---
Author Organization Healthcare Address [address] [place] [address] Care Team Providers Care Head Sulfide Operator Name Role Phone Carmen Ramos Sterling APRN Primary Care Provider [phone] Encounter Details Date Type Department Care Team (Late st Contact Info) Description 11/27/2024 [facility]phone [facility] [address] [facility] 5th Floor [address] [place] [address] Scotty Truong MD [address] [facility] [address] [place] [address] Social History Tobacco Use Types [...] [facility] time in the [facility] [address] [facility] were you homeless or living in [...] PM EDT Spoke with pt to reschedule [facility] discharge vascular consult. Pt state she is [...] Description 01/07/2025 3:[address] [facility] Vascular Lab [address] [facility] 5th Floor [address] [place] [address] 01/07/2025 4:00 PM EDT Office [facility] [address] [facility] 5th Floor [address] [place] [address] Scotty Truong MD [address] [facility] [address] [place] [address] documented as of this encounter [...] documented as of this encounter Care Teams Head Sulfide Operator Relationship Specialty Start Date End Date Ramos Morales APRN [address] [place] [address] PCP - General 06/25/24 documented as of this encounter
--- OUTSIDE RECORDS SUMMARY | 2025-01-04 10:23 | XMS_ITS | Encounter Summary ---
Author Organization [employer] ([place], [place], [place], [place]) Address [address] [place] [address] Care Team Providers Care Clamp Jig Assembler Name Role Phone Unavailable Primary Care Provider Unavailabl e Encounter Details Date Type Department Care Team (Late st Contact Info) Description 03/22/2019 Transcribed Document [facility] [place] Family Medicine [facility] [place] [address] ProviderJace MD [address] [place] [address] Social History Tobacco Use Types Packs/Day [...] Communication Barrier : None Primary Language : Kazakh Any Spiritual/Cultural Needs or Requests : No [...] (Comment: substernal chest pain radiating to back 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
--- OUTSIDE RECORDS SUMMARY | 2025-01-04 10:23 | XMS_ITS | Clinical Summary ---
Author Organization [employer] ([place], [place], [place], [place]) Address [address] [place] [address] Care Team Providers Care Harbor Boat Pilot Name Role Phone Unavailable Primary Care Provider [...]
--- OUTSIDE RECORDS SUMMARY | 2025-01-04 10:23 | XMS_ITS | Encounter Summary ---
Author Organization [facility] Address [address] [place] [address] Care Team Providers Care Social Media Editor Name Role Phone Ramos Moarles APRN Primary Care Provider [phone] Reason for Visit * Auth/Cert (Routine) Specialty Diagnoses / Procedures Referred By Contac t Referred To Contact Diagnoses Pyogenic arthritis of right knee joint, due to unspecified organism (CMS/HCC) Septic Knee Joint Conner Major MD [address] [place] [address] Phone: tel: fax: [facility] Inpatient [address] [place] [address] Referral ID Status Reason Start Date Expiration Date Visits Re quested Visits Authorized [id number] 1 1 Encounter Details Date Type Department Care Team (Late st Contact Info) Description 08/27/2024 Lab Requisition [facility] [address] [place] [address] Sina Villalobos, HAILE [address] [facility] [address] [place] [address] Encounter for general adult medical examination without [...] any time in the past 12 m [facility], were you homeless or living in a longterm (including now)? Patient unable to answer 08/29/2024 Utilities Answer Date Recorded In the past 12 months has th e [employer], gas, oil, or water [email or web address] threatened to shut off services in your [...] Info) Description 01/07/2025 3:00 PM EDT Appointment [facility] Vascular Lab [address] [facility] 5th Floor [address] [place] [id number] 01/07/2025 4:00 PM EDT Office Visit [facility] Comprehensive [facility]ascular Clinic [address] [facility] 5th Floor [address] [place] [address] Scotty Truong MD [address] [place] [address] documented as of this encounter Procedures Procedure Name Priority Date/Time Associated Diagnosis Comments BODY FLUID CULTURE AND GRAM STAIN Routine 08/27/2024 1:05 PM EDT Encounter for general adult medical examination without abnormal findings documented in this encounter Results * (ABNORMAL) Body Fluid Culture and Gram Stain (08/27/2024 1:05 PM EDT) Culture Light Growth 08/29/2024 12:22 PM EDT [facility] Culture Methicillin-Resista nt Staphylococcus aureus(AA) YAMIL 08/29/2024 12:22 PM EDT [facility] Comment: The organism value for this result has been updated. These results have been appended to the previously preliminary verified report. Edited result: Previously reported as Staphylococcus aureus on 08/29/2024 at 0730 EDT. Staphylococcus aureus has been updated to reportable. Gram Stain Result Numerous Polymorphonuclear leukocytes(A) 08/29/2024 12:22 PM EDT [facility] Gram Stain Result Rare Gram positive cocci in pairs(A) 08/29/2024 12:22 PM EDT [facility] Joint Fluid Synovial fluid specimen [...] LAB MICROBIOLOGY - GENERAL ORDERABLES Final Result [facility] [address] [place] [address] documented in this encounter Visit Diagnoses Diagnosis Encounter for general adult medical examination without abnormal findings documented in this encounter Additional Health Concerns Infection Onset Date Last Indicated Resolved Time MRSA 08/27/2024 08/28/2024 Assessment Noted Time A Body Mass Index follow-up plan has been documented for the patient 09/26/2024 11:03 AM EDT documented as of this encounter Care Teams Social Media Editor Relationship Specialty Start Date End Date Ramos Morales APRN [address] [place] [address] PCP - General 06/25/24 documented as of this encounter
--- OUTSIDE RECORDS SUMMARY | 2025-01-04 10:23 | XMS_ITS | Encounter Summary ---
Author Organization [employer] ([place], [place], [place], [place]) Address [address] [place] [address] Care Team Providers Care Trolley Car Overhauler Name Role Phone Unavailable Primary Care Provider Unavailabl e Encounter Details Date Type Department Care Team (Late st Contact Info) Description 03/22/2019 Transcribed Document [facility] [place] [facility] [place] [address] ProviderJace MD [facility] [place], [place] [address] Social History Tobacco Use Types Packs/Day Years [...]
--- OUTSIDE RECORDS SUMMARY | 2025-01-04 10:23 | XMS_ITS | Encounter Summary ---
Author Organization [employer] ([place], [place], [place], [place]) Address [address] [place] [address] Care Team Providers Care Supervising Film Or Videotape Editor Name Role Phone Unavailable Primary Care Provider Unavailabl e Encounter Details Date Type Department Care Team (Late st Contact Info) Description 03/22/2019 Transcribed Document [facility] [place] [facility] [place] [address] ProviderJace MD [facility] [place] [address] Social History Tobacco Use Types [...] Historical ProviderMD - 03/22/2019 4:43 PM CDT [facility] [place] [address] Visit Date/Time: 03/22/2019 16:43:59 MICHELINE HUBER The above patient was seen in the hospital today and needs to be excused from work/school until Return to Work/School Date:03/24/2019 Electronically signed by [facility] Conversion Hydraulic Engineer Cerner at 10/06/2022 1:03 PM CDT documented in this encounter Plan of Treatment Not on file documented as of this encounter Visit Diagnoses Not on filedocumented in this encounter
--- OUTSIDE RECORDS SUMMARY | 2025-01-04 10:23 | XMS_ITS | Encounter Summary ---
Author Organization [employer] ([place], [place], [place], [place]) Address [address] [place] [address] Care Team Providers Care Barrelhead Inspector Name Role Phone Unavailable Primary Care Provider Unavailabl e Encounter Details Date Type Department Care Team (Late st Contact Info) Description 03/25/2019 Transcribed Document [facility] [place] [facility] [place] [address] ProviderJace MD [address] [place], [place] [id number] Social History Tobacco Use Types Packs/Day Years [...]
--- OUTSIDE RECORDS SUMMARY | 2025-01-04 10:23 | XMS_ITS | Clinical Summary ---
Author Organization [facility] Address [address] [place] [address] Care Team Providers Care Senior Hr Business Partner Name Role Phone Óscar Beckham MD Primary Care Provider [phone] Allergies Active Allergy Reactions Criticality Noted Date Comments Canagliflozin Myalgia Low 10/15/2019 Medications magnesium oxide (MAGOX) 400 (241.3 Mg) MG tablet tablet Take 400 mg by mouth Daily. Active vitamin D (ERGOCALCIFEROL ) 1.25 MG (14297 UT) capsule capsule Take 1 capsule by mouth Every 7 (Seven) Days. Tuesday 0 Active gabapentin (NEURONTIN) 600 MG tablet Take 1,200 mg by mouth 3 (Three) Times a Day. 0 Active buPROPion SR (WELLBUTRIN SR) 150 MG 12 hr tablet Take 150 mg by mouth 2 (Two) Times a Day. 0 Active rOPINIRole (REQUIP) 1 MG tablet Take 1 tablet by mouth Every Night. 3 Active ferrous sulfate 325 (65 Fe) MG tablet Take 325 mg by mouth Daily With Breakfast. Active levothyroxine (SYNTHROID, LEVOTHROID) 300 MCG tablet Take 1 tablet by mouth Daily. 175 mcg daily 3 Active amitriptyline (ELAVIL) 50 MG tablet Take 50 mg by mouth every night at bedtime. 0 Active aspirin 81 MG tablet Take 81 mg by mouth Daily. 3 Active furosemide (LASIX) 20 MG tablet Take 20 mg by mouth 2 (Two) Times a Day. 0 Active metFORMIN (GLUCOPHAGE) 1000 MG tablet Take 1,000 mg by mouth Daily With Breakfast. 3 Active carvedilol (COREG) 6.25 MG tablet Take 6.25 mg by mouth 2 (Two) Times a Day. 0 Active nicotine (NICODERM CQ) 21 MG/24HR patch Place 1 patch on the skin as directed by provider Daily. 28 each 2 0 Active citalopram (CeleXA) 10 MG tablet Take 10 mg by mouth Daily. Active levothyroxine (SYNTHROID, LEVOTHROID) 175 MCG tablet Take 175 mcg by mouth Daily. Active hydroCHLOROthia zide (HYDRODIURIL) 25 MG tablet Take 25 mg by mouth Daily. 0 Active HYDROcodone-esthela taminophen (NORCO) 7.5-325 MG per tablet Take 1 tablet by mouth Every 6 (Six) Hours As Needed for Moderate Pain . 0 Active omeprazole (priLOSEC) 40 MG capsule Take 40 mg by mouth Daily. Active clopidogrel (PLAVIX) 75 MG tablet Take 1 tablet by mouth Daily. 30 tablet 11 0 Active allopurinol (ZYLOPRIM) 100 MG tablet Take 100 mg by mouth Daily. 1 Active pramipexole (MIRAPEX) 0.25 MG tablet Take 0.25 mg by mouth Daily. Active nitrofurantoin, macrocrystal-mo nohydrate, (MACROBID) 100 MG capsule Daily. 1 Active atorvastatin (LIPITOR) 40 MG tablet Take 40 mg by mouth Daily. Active BLACK COHOSH PO Take 1 tablet by mouth Daily. Active linagliptin (Tradjenta) 5 MG tablet tablet Take 5 mg by mouth Daily. Active Insulin Glargine (Lantus SoloStar) 100 UNIT/ML injection pen Inject 65 Units under the skin into the appropriate area as directed 2 (Two) Times a Day. Active Active Problems Problem Noted Date Diagnosed Date HTN (hypertension) 10/02/2020 HLD (hyperlipidemia) 10/02/2020 DM (diabetes mellitus) 10/02/2020 Arthritis 10/02/2020 CAD (coronary artery disease) 10/02/2020 GERD without esophagitis 10/02/2020 ERWIN (obstructive sleep apnea) 10/02/2020 Diabetic ulcer of left foot associated with type 2 diabetes mellitus 10/02/2020 Other specified hypothyroidism 10/02/2020 Obesity (BMI 30-39.9) 10/02/2020 PVD (peripheral vascular disease) 10/15/2019 Overview (10/15/2019): Added automatically from request for surgery [id number] S/P coronary artery stent placement 06/20/2014 Family History Medical History Relation Name Comments Heart attack Father Stroke Father Heart attack Mother Relation Name Status Comments Father Alive Mother Social History Tobacco Use Types Packs/Day Years Used Date Smoking Tobacco: Light Smoker Cigarettes 0.3 41 Smokeless Tobacco: Never Tobacco Cessation:Ready to Q uit: Yes; Counseling Given: No Comments:pt smokes less then 10 cigarettes a day as of 02/02/21; SMOKING CESSATION PAMPHLET PROVIDED TO PATIENT Alcohol Use Standard Drinks/Week Comments Never 0 (1 standard drink = 0.6 oz pur e alcohol) AUDIT-C Answer Date Recorded Q1: How often do you have a drink containing alc ohol? Never 10/15/2019 Average Number of Drinks Not on file 020 Frequency of Binge Drinking Not on file 09/19 Abuse Screen Answer Date Recorded Unsafe at Home or Work/School Not on file Feels Threatened by Someone? Not on file 04/2023 Does Anyone Keep You from Co ntacting Others or Doint Things Outside the Home? Not on file 03/30/2023 Physical Sign of Abuse Present Not on file 1 Housing Stability Answer Date Recorded Current Living Arrangements Not on file 03/20 Potentially Unsafe Housing Conditions Not on jayce e 03/30/2023 Family and Community Support Answer Jovany e Recorded Help with Day-to-Day Activities Not on file 03/30/2023 Lonely or Isolated Not on file 03/30/2023 Employment Answer Date Recorded Do you want help finding or keeping work or a raf b? Not on file 03/30/2023 Disabilities Answer Date Recorded Concentrating, Remembering, or Making Decisions Difficulty Not on file 03/30/2023 Doing Errands Independently Difficulty Not on fi le 03/30/2023 Education Answer Date Recorded Help with school or training? Not on file Preferred Language Not on file 03/30/2023 Comments No Sex and Gender Information Value Date Recorded Sex Assigned at Not on file Legal Sex Female 11:53 AM EDT Gender Identity Not on file Sexual Orientation Not on file Occupation Industry Job Start Date Job End Date [employer] work Not on file Not on file Not on f ile Last Filed Vital Signs Vital Sign Reading Time Taken Comments Blood Pressure 144/75 04/21/2021 3:15 PM EDT Pulse 87 04/21/2021 3:15 PM EDT Temperature 36.3 C (97.3 F) 04/21/2021 1:00 PM EDT Respiratory Rate 16 04/21/2021 1:00 PM EDT Oxygen Saturation 96% 04/21/2021 3:15 PM EDT Inhaled Oxygen Concentration - - Weight 78.9 kg (174 lb) 04/21/2021 9:46 AM EDT Height 157.5 cm (5' 2 ) 04/21/2021 9:46 AM EDT Body Mass Index 31.83 04/21/2021 9:46 AM EDT Plan of Treatment Health Maintenance Due Date Last Done Comments Annual Gynecologic Pelvic an d Breast Exam 1960 LIPID PANEL 1962 TDAP/TD VACCINES (1 - Tdap) 1981 MAMMOGRAM 2002 COLOGUARD 09/03/2007 COLON CANCER SCREENING 5 YEA R SIGMOIDOSCOPY 09/03/2007 COLONOSCOPY 09/03/2007 COLORECTAL CANCER SCREENING 09/03/2007 CT COLONOGRAPHY 09/03/2007 FECAL OCCULT BLOOD TEST 09/03/2007 FIT Testing (1 year) 09/03/2007 Pneumococcal Vaccine 50+ (2 of 2 - PCV) 07/03/2017 07/03/2016 ANNUAL PHYSICAL 08/09/2019 ZOSTER VACCINE (2 of 2) 05/25/2021 03/30/2021 COVID-19 Vaccine (3 - 2023-2 5 season) 2024 10/06/2020, 09/15/2020 INFLUENZA VACCINE 03/20/2025 03/30/2021, , 07/03/2016 HEPATITIS C SCREENING Completed 05/26/2024 HEMOGLOBIN A1C Discontinued 08/27/2024, 12/2023, 04/16/2021, Additional history exists LUNG CANCER SCREENING Discontinued 09/19/2024 Medical Devices Implanted Type Area Anesthesiologist/Physician Device Identifier Shelf Expiration Date Model / Serial / Lot Implant Implant Description:Bladder mesh, 20 10 Heart stent Procedures Procedure Name Priority Date/Time Associated Diagnosis Comments HEMOGLOBIN A1C Routine 04/16/2021 2:08 PM EDT PVD (peripheral vascular disease) from Last 3 Months or Most Recently Relevant to Health Maintenance Results * (ABNORMAL) Hemoglobin A1c (04/16/2021 2:08 PM EDT) Hemoglobin A1C 12.10(H) 4.80 - 5.60 % 04/16/2021 2:54 PM EDT [facility] Blood Venipuncture / Unknown 04/16/2021 2:08 PM EDT 04/16/2021 2:26 PM EDT Narrative [facility] - 04/16/2021 2:54 PM EDT Hemoglobin A1C Ranges: Increased Risk for Diabetes 5.7% to 6.4% Diabetes >= 6.5% Diabetic Goal < 7.0% us Claudio BE LAB BLOOD ORDERABLES Final Resu lt [facility]
[address] [place] [address], from Last 3 Months or Most Recently Relevant to Health Maintenance Insurance MEDICAID [place] [id number] MEDICARE ADVANTAGE Advance Directives * CPR (Attempt to Resuscitate) (Latest Code Status on File) Date Activated Date Inactivated Comments 10/17/2019 11:30 AM 10/18/2019 1:04 PM Question Answer Comments Code Status (Patient has no pulse and is not breathing): CPR (Attempt to Resuscitate) Medical Interventions (Patie nt has pulse or is breathing): Full Care Teams Senior Hr Business Partner Relationship Specialty Start Date End Date Óscar Beckham MD [facility] [address] ATTN: [place] [address] PCP - General Emergency Medicine 04/16/21
--- OUTSIDE RECORDS SUMMARY | 2025-01-04 10:23 | XMS_ITS | Data Portability ---
Author Organization [place] [facility] [place] [facility] Address [address] [place] [phone] Assessment No assessment recorded. Plan of Treatment [...] ity Hospit al [address] [place] [address] Phone: Fax: Name: MICHELINE KIMBLE Exam Date: 024 : 963 Age 63 years Gender : F Access ion: [id number] Physic daniela: NARENDRA MURPHY Facili ty: [facility] Facili ty HSV: Inpati [...] ic Valve Report for MICHELINE BHARTI Floyd [id number] on 4 Dictat ed By: SHARLENE KAHN Transc ribed By: KEELY STOLL Transc ribed On: 024 8:06 AM Electr onical ly signed by: SHARLENE KAHN 024 Thank you for referr MICHELINE Sanabria to [facility]. Legall y kamille carbajal by GABY Carbajal MD 01-16 08:08: 46 CC'ed Logic: Orderi ng Provid er: GABY Carbajal Attend ing Provid er: BELTRAN -MARGAUXEsther MACKEY Referr ing Provid er: DEVIN CRAIN EDGAR Admitt ing Provid er: BELTRAN -MARGAUX NARENDRA [facility] ([facility]) [address] , [place], [address], 01/23/2024 11:56:46 Result Notes None recorded. Medical [...] Not Available Not Available FreeStyle Laureen 2 [place] active Not Available Not Available Not Available [...] Address Organization Details Last Updated DateTime 3 91560.8 9 g 31.5 kg/m2 157.48 cm 88 /min 97 % 97 % 98.1 [degF] 128/78 mm[Hg] [facility] [place] 3 10:54:49 Social History None recorded. Functional Status None recorded. Mental Status None recorded. Family History Nothing Reported. Medical History No medical history recorded. Gynecological HistoryNo gynecological history recorded. Obstetrics History GPAL:G 0 P 0 0 0 0 Past Encounters Encounter ID Performer Location Encounter Start Date Encounter Closed Date Diagnosis/Indication Diagnosis SNOMED-CT Code Diagnosis ICD10 Code Diagnosis Note [id number] Willian Olea MD [address] [place] [address] 12/15/2022 10:35:04 12/15/2022 11:08:48 Osteomyelitis of right foot 2934067972 103489 M86.9 Chronic osteomyeli tis of the right [...] weeks. Methicilli n resistant Staphylococcus aureus infection 665729851 A49.02 As above. Health Concerns Section Related Observation LastModified by Organization Detai ls LastModified Time None Recorded Concern Status LastModified by Organization Details LastModified Time None Recorded Advance Directives Directive None Recorded Payers Insurance Date Sequence Insurance Name Policy Number Policy Mcdonald Covered Member ID Mcdonald Member ID Guarantor Name 05/27/2024 2 [place] [employer] CHO[employer] [place] FFS/TRADITIONA L Micheline Lzim [id number] Micheline Coheniam 01/20/2024 1 [place] BCBS OF [facility] MEDIBLUE PLUS (MEDICARE REPLACEMENT HMO) [id number] Micheline Coheniam [id number] Micheline Grajeda Hickman 12/10/2022 1 [facility] [facility] [place]IX[place] Micheline Coheniam [id number] Micheline Grajeda Mary 05/27/2024 1 [employer] Micheline Coheniam [id number] Micheline Hernandez Notes Date Note Type Note Provider Name and Address Organization Details Recorded Time 12/15/2022 text/html This is a 62-year-old white female [place] for [place] chronic osteomyelitis of the right [...] No other issues today. Willian Olea MD [address] [facility], [place], [address], [facility] - [facility] [place] 12/15/2022 11:04:34 OBGyn Episode No OBEpisode recorded.
--- OUTSIDE RECORDS SUMMARY | 2025-01-04 10:23 | XMS_ITS | Encounter Summary ---
Author Organization [facility] Address [address] [place] [address] Care Team Providers Care Resource Management Planner Name Role Phone Ramos Morales APRN Primary Care Provider [phone] Reason for Visit * Auth/Cert (Routine) Specialty Diagnoses / Procedures Referred By Contac t Referred To Contact Diagnoses Pyogenic arthritis of right knee joint, due to unspecified organism (CMS/HCC) Septic Knee Joint Conner Major MD [address] [place] [address] Phone: tel: fax: PAV A Inpatient [address] [place] [address] Referral ID Status Reason Start Date Expiration Date Visits Re quested Visits Authorized [id number] 1 1 Encounter Details Date Type Department Care Team (Late st Contact Info) Description 08/27/2024 Lab Requisition [facility] Lab [address] [place] [address] Sina Villalobos, HAILE [address] [facility] [address] [place] [address] Encounter for general adult medical examination without [...] any time in the past 12 m [facility], were you homeless or living in a penitentiary (including now)? Patient unable to answer 08/29/2024 Utilities Answer Date Recorded In the past 12 months has th e [employer], gas, oil, or water [employer] threatened to shut off services in your [...] Info) Description 01/07/2025 3:00 PM EDT Appointment [facility] Vascular Lab [address] [facility] [address] Floor [address] [place] [address] 01/07/2025 4:00 PM EDT Office Visit [facility] [address] [facility] [address] [place] [address] Scotty Truong MD [address] [facility] [address] [place] [address] documented as of this encounter Procedures Procedure [...] LAB HEMATOLOGY METHOD 08/28/2024 12:50 PM EDT [facility] Specimen Source, Body Fluid LAB HEMATOLOGY METHOD 08/28/2024 12:50 PM EDT [facility] Clinical Diagnosis, Body Fluid Septic arthritis LAB HEMATOLOGY METHOD 08/28/2024 12:50 PM EDT [facility] Interpretation , Body Fluid Degenerated acute inflammatory cells, please correlate with microbiology studies. A resident was involved in the service. I attest I examined the relevant preparations for the specimens and confirmed the diagnosis or interpretation. 08/28/2024 12:50 PM EDT [facility] Pathologist Signature, Body Fluid 08/28/2024 12:50 PM EDT [facility] Comment:Reviewed by: Larisa joyce MD LAB CP ASR DISCLAIMER Yes 08/28/2024 12:50 PM EDT [facility] Joint Fluid 08/27/2024 1:05 PM EDT 08/27/2024 3:14 PM EDT us Sina BE LAB BODY FLUIDS AND STOOLS ORDERABLES Final Result Performing Organization Address [facility] Co de Phone Number [facility] [address] [place] [address] * Synovial fluid, crystal (08/27/2024 1:05 PM EDT) Crystals, Joint Fluid No Crystals Seen No Crystals Present 08/27/2024 7:36 PM EDT [facility] Joint Fluid 08/27/2024 1:05 PM EDT 08/27/2024 3:14 PM EDT Sina BE LAB BODY FLUIDS AND STOOLS ORDERABLES Final Result [facility] [address] [place] [address] * (ABNORMAL) Body Fluid Cell Count w/ Diff (08/27/2024 1:05 PM EDT) Color, Body fluid Yellow LAB HEMATOLOGY METHOD 08/27/2024 7:45 PM EDT [facility] Appearance, Body fluid Cloudy(A) LAB HEMATOLOGY METHOD 08/27/2024 7:45 PM EDT [facility] Volume, Body fluid 1.0 cc LAB HEMATOLOGY METHOD 08/27/2024 7:45 PM EDT [facility] Fluid Container Specimen received in EDTA tube LAB HEMATOLOGY METHOD 08/27/2024 7:45 PM EDT [facility] Red Blood Cell Count, Body fluid 30,000 uL LAB HEMATOLOGY METHOD 08/27/2024 7:45 PM EDT [facility] Total Nucleated Cell Count, Body fluid >100,000 uL LAB HEMATOLOGY METHOD 08/27/2024 7:45 PM EDT [facility] Neutrophils %, Body fluid 95 % LAB HEMATOLOGY METHOD 08/27/2024 7:45 PM EDT [facility] Lymphocytes %, Body fluid 1 % LAB HEMATOLOGY METHOD 08/27/2024 7:45 PM EDT [facility] Monocytes/Macr ophages %, Body fluid 4 % LAB HEMATOLOGY METHOD 08/27/2024 7:45 PM EDT [facility] Eosinophils %, Body fluid 0 % LAB HEMATOLOGY METHOD 08/27/2024 7:45 PM EDT [facility] Lining/[place] lial Cells %, Body fluid 0 % LAB HEMATOLOGY METHOD 08/27/2024 7:45 PM EDT [facility] Neutrophils Absolute (PMN), Body fluid >9,500 uL LAB HEMATOLOGY METHOD 08/27/2024 7:45 PM EDT [facility] Lymphocytes Absolute, Body fluid >100 uL LAB HEMATOLOGY METHOD 08/27/2024 7:45 PM EDT [facility] Monocytes/Macr ophages Absolute, Body fluid >400 uL LAB HEMATOLOGY METHOD 08/27/2024 7:45 PM EDT [facility] Eosinophils Absolute, Body fluid 0 uL LAB HEMATOLOGY METHOD 08/27/2024 7:45 PM EDT [facility] Basophils Absolute, Body fluid 0 uL LAB HEMATOLOGY METHOD 08/27/2024 7:45 PM EDT [facility] Lining/[place] lial Cells Absolute, Body fluid 0 uL LAB HEMATOLOGY METHOD 08/27/2024 7:45 PM EDT [facility] Comment, Body fluid Differential and/or cell count may be inaccurate due to cellular degeneration. LAB HEMATOLOGY METHOD 08/27/2024 7:45 PM EDT [facility] Basophils %, Body fluid 0 % LAB HEMATOLOGY METHOD 08/27/2024 7:45 PM EDT [facility] Joint Fluid 08/27/2024 1:05 PM EDT 08/27/2024 3:14 PM EDT us Sina BE LAB BODY FLUIDS AN D STOOLS ORDERABLES NO SPECIMEN TYPE/SOURCE Final Result Performing Organization Address City/State/[facility] Co de Phone Number [facility] [address] [place] [address] documented in this encounter Visit Diagnoses Diagnosis Encounter for general adult medical examination without abnormal findings documented in this encounter Additional Health Concerns Infection Onset Date Last Indicated Resolved Time MRSA 08/27/2024 08/28/2024 Assessment Noted Time A Body Mass Index follow-up plan has been documented for the patient 09/26/2024 11:03 AM EDT documented as of this encounter Care Teams Resource Management Planner Relationship Specialty Start Date End Date Ramos Morales APRN [address] [place] [address] PCP - General 06/25/24 documented as of this encounter
--- OUTSIDE RECORDS SUMMARY | 2025-01-04 10:23 | XMS_ITS | Clinical Summary ---
Author Organization [facility] Address [address] [place] [address] Care Team Providers Care Solar Design Engineer Name Role Phone Ramos Morales APRN Primary Care Provider [phone] Allergies Active Allergy Reactions Criticality Noted Date [...] by mouth every evening. Active HYDROcodone-ac etaminophen (Lindsay) 10-325 MG tablet Take 1 tablet (10 [...] nightly 30 g 4 Active nystatin (Mycostatin) 113263 UNIT/GM powder Apply twice a day to [...] by mouth every 6 (six) hours. Under [place] law, monthly prescriptions (30 days) can be [...] (06/26/2024): Added automatically from request for surgery [id number] S/P coronary artery stent placement 06/20/2014 Resolved Problems Problem Noted Date Diagnosed Date Resolved Date Cellulitis of foot 05/29/2024 4 Encounters Date Type Department Care Team Description 11/27/2024 Telephone [place] [facility] [address] [facility] [address] [place] [address] Scotty Truong MD from Last [...] any time in the past 12 m [facility], were you homeless or living in a alf (including now)? Patient unable to answer 08/29/2024 [...] [facility] [address] [place] [address] 01/07/2025 4:00 PM EDT Office Visit [facility] [address] [place] [address] Scotty Truong MD [address] [place] [address] Health Maintenance Due Date Last Done Comments [facility]-Depression Screening 1960 [facility]-Medicare Annual Wellness (AWV) 1960 [facility]-/Child/Adol SDOH Screenings 1962 Diabetes: Dental Exam 1972 [facility]-DTaP,Tdap,and Td Vaccines (1 - Tdap) 1981 CT Colonography 09/03/2007 Colonoscopy 09/03/2007 FIT-DNA 09/03/2007 FIT 09/03/2007 FOBT 09/03/2007 Sigmoidoscopy 09/03/2007 [facility]-Colorectal Cancer Screening 09/03/2007 [facility]-Breast Cancer Screening 2012 [id number] Vaccine (3 - Pfizer risk series) 11/03/2020 [...] Ha RN Medical Devices Implanted Type Area Side Sawyer Device Identifier Shelf Expiration Date Model / [...] Reactive Non Reactive 09/24/2024 3:46 PM EDT [facility] Comment:Screening for HIV 1 & 2 antibodies, and P24 antigen is NONREACTIVE. No confirmatory testing is required. Blood Venous blood specimen / Unknown Venipuncture / Unknown 09/24/2024 2:51 PM EDT 09/24/2024 3:06 PM EDT us Rohit Patel MD LAB BLOOD ORDERABLES Final Result [facility] [address] [place] [address] * (ABNORMAL) Hemoglobin A1c (08/27/2024 9:15 PM EDT) Hemoglobin A1c 8.5(H) <5.7 % 08/28/2024 12:44 AM EDT [facility] Blood Venous blood specimen / Unknown Venipuncture / Unknown 08/27/2024 9:15 PM EDT 08/27/2024 9:25 PM EDT Narrative [facility] - 08/28/2024 12:44 AM EDT HA1C Interpretive Data: Diagnosis of Diabetes: Diabetic > or = 6.5% Pre-diabetic 5.7 to 6.4% Non-diabetic < or = 5.6% Glycemic Targets for Type I and Type II Diabetics: Non- Adults <7.0% Adults <6.0% Children and Adolescents <7.5% Source: [place] [employer]. Standards of medical care in diabetes,2017. Diabetes Care.2017:40 (suppl 1):S1-S135. HbA1c assay performed by an ion-exchange chromatography method that is certified traceable to the DCCT. us Roberto Ceja MD LAB BLOOD ORDERABLES Final R esult Performing Organization Address City/[facility]/ZIP Co de Phone Number [facility] [address] [place] [address] * Hepatitis C Antibody - ED (05/26/2024 11:59 AM EST) Hepatitis C Antibody Negative Negative 05/26/2024 12:53 PM EST [facility] Blood Venous blood specimen / Unknown Venipuncture / Unknown 05/26/2024 11:59 AM EST 05/26/2024 12:11 PM EST us Justyna Suazo MD LAB BLOOD ORDERABLES Final Res ult Performing Organization Address City/[facility]/ZIP Co de Phone Number [facility] [address] [place] [address] from Last 3 Months or Most Recently Relevant to Health Maintenance Additional Health Concerns Active Problems Noted Date Diagnosed Date Autogenerated Problem 09/11/2024 Infection Onset Date Last Indicated MRSA 08/27/2024 08/28/2024 Insurance [facility] MEDICARE Advance Directives * Full Code [...] Patient has decision-making capacity? Yes Care Teams Solar Design Engineer Relationship Specialty Start Date End Date Ramos Morales APRN [address] [place] [id number] PCP - General 06/25/24
--- OUTSIDE RECORDS SUMMARY | 2025-01-04 10:23 | XMS_ITS | Encounter Summary ---
Author Organization [employer] ([place], [place], [place], [place]) Address [address] [place] [address] Care Team Providers Care Campus Security Officer Name Role Phone Unavailable Primary Care Provider Unavailabl e Encounter Details Date Type Department Care Team (Late st Contact Info) Description 03/22/2019 Transcribed Document [facility] [place] [facility] [place] [address] ProviderJace [place] [facility] [address] Social History Tobacco Use Types [...] 4:33 PM CDT Electronically signed by Mitra [facility] Conversion Warehouse Associate Cerner at 10/06/2022 1:00 PM CDT documented in this encounter Plan of Treatment Not on file documented as of this encounter Visit Diagnoses Not on filedocumented in this encounter
--- OUTSIDE RECORDS SUMMARY | 2025-01-04 10:23 | XMS_ITS | Referral Summary ---
Author Organization [employer] ([place], [place], [place], [place]) Address [address] [place] [address] Care Team Providers Care Tea Plantation Worker Name Role Phone Unavailable Primary Care [...]
--- OUTSIDE RECORDS SUMMARY | 2025-01-04 10:23 | XMS_ITS | Encounter Summary ---
Author Organization [employer] ([place], [place], [place], [place]) Address [address] [place] [address] Care Team Providers Care Justice Of The Peace Name Role Phone Unavailable Primary Care Provider Unavailabl e Encounter Details Date Type Department Care Team (Late st Contact Info) Description 03/22/2019 Transcribed Document [facility] [place] Family Medicine [facility] [place] [address] ProviderJace MD [address] [place] [address] Social History Tobacco Use Types Packs/Day [...] Ventura MD - 03/22/2019 4:[address] [facility] [address] MICHELINE HERNANDEZ :1960 Visit Time:03/22/2019 [...] Within 3 to 5 days Where: [address] [place] [address] Business (1) Follow Up with Patient Resource [...] Within 2 to 3 days Where: [address] [place] [address] [facility] (1) Allergies No Known Allergies Immunizations [...] range between ( 0.0 and 7.0 ) Alfalfa #: 0.54 K/uL -- Normal range between ( 0.16 and 1.00 ) Eos #: 0.28 x10(3)/uL -- Normal range between ( 0.00 and 0.80 ) Alfalfa %: 6.3 % -- Normal range between [...] /LPF Urine Bilirubin Dipstick: Negative Urine Specific [place]: 1.009 -- Normal range between ( 1.005 [...] treat less common causes of UTI. ??? Lmjl-nzz-leduuee medicines to treat pain. ??? Drinking enough water to stay hydrated. Follow these instructions at home: ??? Take mnbh-tso-xpeywcn and prescription medicines only as told by [...] 03/16/2006 Document Revised: 11/29/2017 Document Reviewed: 04/26/2016 [employer] Interactive Patient Education ?? 2019 [employer] Nonspecific Chest Pain Chest pain can [...] you start to feel better. ??? Take aqcm-diz-zscldxq and prescription medicines only as told by [...] 03/16/2006 Document Revised: 02/28/2017 Document Reviewed: 02/28/2017 [employer] Interactive Patient Education ?? 2019 [employer]. Emergency Awareness and Preventative Care STROKE is [...] Assistance with quitting is available by contacting 4-697-OEPA-NOW. This is a free resource providing counseling, [...] was given the opportunity to ask questions. 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 Date: documented in this encounter Plan of Treatment Not on file documented as of this encounter Visit Diagnoses Not on filedocumented in this encounter
--- OUTSIDE RECORDS SUMMARY | 2025-01-04 10:23 | XMS_ITS | Encounter Summary ---
Author Organization [employer] ([place], [place], [place], [place]) Address [address] [place] [address] Care Team Providers Care Coach Mechanic Name Role Phone Unavailable Primary Care Provider Unavailabl e Encounter Details Date Type Department Care Team (Late st Contact Info) Description 03/23/2019 Transcribed Document [facility] [place] Medicine [facility] [place] [address] ProviderJace MD [facility] [place] [address] Social History Tobacco Use Types [...]
--- OUTSIDE RECORDS SUMMARY | 2025-01-04 10:23 | XMS_ITS | Encounter Summary ---
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 Electrocardiogram: Time 03/22/2019 11:39:00, rate 88, normal sinus rhythm, No ST changes, no ectopy, normal WA & QRS intervals, EP Interp. Electrocardiogram: Time 03/22/2019 15:41:00, rate 75, normal sinus rhythm, No ST changes, no ectopy, normal WA & QRS intervals, EP Interp. monitoring and evaluation advisor: Normal sinus rhythm. Results review: All Results [...] % 38.9 % Lymph # 3.35 x10(3)/uL [place] % 6.3 % [place] # 0.54 K/uL Eos % 3.2 % Eos # 0.28 x10(3)/uL Baso % 0.6 % Baso # 0.05 x10(3)/uL Slide Review No IG# 0.05 x10(3)/uL IG% 0.60 % 03/22/2019 12:20 EDT Urine Type. U CleanCatch Urine Color Yellow Urine Appearance Clear Urine Specific [place] 1.009 Urine pH Dipstick 6.0 Urine Leukocyte Esterase Moderate Urine Nitrite Negative Urine Protein Dipstick Negative Urine Glucose Dipstick 100 Urine Ketones Dipstick Negative Urine Urobilinogen Dipstick 0.2 EU/dL Urine Bilirubin Dipstick Negative Urine Blood Dipstick Negative Ur WBC 10-20 /HPF Ur Bacteria 3+ Ur Epithelial Cells 10-20 /HPF Ur Hyaline Casts 10-20 /LPF . Radiology results: Radiology Results (Last 48 hours) [id number] -- 03/22/2019 11:35 CR Chest 1 Vw [...] to: Time: 03/22/2019 16:06:00, GIL PHILLIPS PA-C, 8366 Patient feeling well. Reports no chest pain and no abdomen pain. She had the pain she had this morning yesterday also. She had sausage this morning before this pain and vomiting. Abdomen soft/some epigastric tenderness. No guarding. She has not see cardiology in over 3 years. Advised f/u PCP and cardiology.. Prescriptions: Prescription Nuclear Fuels Reclamation Engineer Pharmacy: Macrobid 100 mg oral capsule (Prescribe): [...] of instructions. Notes: I certify that the MLP/SETTLEMENT CLERK performed the services as delegated. . documented in this encounter Plan of Treatment Not on file documented as of this encounter Visit Diagnoses Not on filedocumented in this encounter
--- OUTSIDE RECORDS SUMMARY | 2025-01-04 10:23 | XMS_ITS | Encounter Summary ---
Author Organization [facility] Address [address] [place] [address] Care Team Providers Care Software Support Specialist Name Role Phone Carmen Ramos Sterling APRN Primary Care Provider [phone] Encounter Details Date Type Department Care Team (Late st Contact Info) Description 08/01/2024 Orders Only External Location [address] [place] [address] Provider, External Social History Tobacco Use Types [...] were you homeless or living in a long term (including now)? No 05/28/2024 Utilities Answer Date [...] Info) Description 01/07/2025 3:00 PM EDT Appointment [facility] [address] [place] [address] 01/07/2025 4:00 PM EDT Office Visit [facility] [address] [place] [address] Scotty Truong MD [address] [facility] [address] [place] [address] documented as of this encounter Procedures Procedure [...] documented as of this encounter Care Teams Software Support Specialist Relationship Specialty Start Date End Date Ramos Morales APRN [address] [place] [address] PCP - General 06/25/24 documented as of this encounter
--- OUTSIDE RECORDS SUMMARY | 2025-01-04 10:23 | XMS_ITS | Data Portability ---
Author Organization [facility] [facility] Address [address] [facility] [facility] [address] [place] [address] Care Team Providers Care Hospital Intern Name Role Phone ATILIO CUELLAR Primary Care Provider JOSETTE BENAVIDES Coal Tram Driver Assessment No assessment recorded. Plan of Treatment Reminders Order Date Submit Date Provider Last Modified By Organization Details Last Modified Time Details Appointments None recorded. Lab glucose, fingersti ck, blood 2020 021 [email or web address] 8 [facility] , [address] [place] [address], [phone], 11:28:55 hemoglobi n A1C, fingersti ck 2020 021 [email or web address] 8 [facility] , [address] [place] [address], [address], 11:28:56 glucose, fingersti ck, blood 2020 021 [email or web address] 8 [facility] , [address] [place] [address], [address], 09:54:19 hemoglobi n A1C, fingersti ck 2020 021 [email or web address] 8 [facility] , [address] [place] [address], [phone], 09:54:19 glucose, fingersti ck, blood 2019 020 8 [facility], [address] [place], [address], 0 09:41:05 hemoglobi n A1C, fingersti ck 2019 020 [email or web address] 8 [facility], [address] [place], [address], 0 09:41:05 glucose, fingersti ck, blood 2019 020 [email or web address] 8 [facility], [address] [place], [address], 0 14:34:08 hemoglobi n A1C, fingersti ck 2019 020 8 [facility], [address] [place], [address], 0 14:34:08 Referral None recorded. Procedures None recorded. Surgeries None recorded. Imaging None recorded. Medication Orders FreeStyle Lite Strips 2020 [facility], [address] [place], [address], 1 11:28:58 Humalog KwikPen (U-100) Insulin 100 unit/mL subcutane ous 2020 [facility], [address] [place], [address], 1 11:28:59 Lantus Solostar U-100 Insulin 100 unit/mL (3 mL) subcutane ous pen 2020 [facility], [address] [place], [address], 1 11:28:59 Basaglar KwikPen U-100 Insulin 100 unit/mL (3 mL) subcutane ous 2020 021 [facility], [address] [place], [address], 1 09:54:22 Admelog SoloStar U-100 Insulin lispro 100 unit/mL subcutane ous pen 2020 021 [facility], [address] [place], [address], 1 16:19:47 FreeStyle Lite Strips 2020 021 [facility], [address] [place], [address], 1 09:54:22 Accu-Chek Guide test strips 2019 020 [email or web address] [facility], [address] [place], [address], 1 09:32:42 Basaglar KwikPen U-100 Insulin 100 unit/mL (3 mL) subcutane ous 2019 020 INTERFACE [facility], [address] [place], [address], 0 09:41:07 Humalog KwikPen (U-100) Insulin 100 unit/mL subcutane ous 2019 020 [email or web address] 8 [facility], [address] [place] [address], [address], 0 10:33:21 Accu-Chek Guide test strips 2019 020 [email or web address] [facility], [address] [place] [address], [address], 1 09:32:42 Patient TargetsNo targets recorded. Patient Instructions Encounter Date Encounter Id Patient Instructions Last Modified By Organization Details Last Modified Time 02/27/2020 [id number] -Increase lantus/basaglar to 65 units twice daily. [...] appointment. Sign up for the patient portal: [email or web address] Not available 02/27/2020 14:26:08 04/28/2020 [id number] -Continue basagl ar to 65 units twice [...] appointment. Sign up for the patient portal: [email or web address] Not available 04/28/2020 12:42:01 01/14/2021 [id number] -Continue basagl ar to 64 units twice [...] appointment. Sign up for the patient portal: [email or web address] Not available 01/14/2021 10:33:38 04/13/2021 [id number] -Increase Lantus to 70 units twice daily. [...] appointment. Sign up for the patient portal: [email or web address] Not available 04/13/2021 11:29:40 Reason for Referral None Reported. Results Created Date Observation Date Name Description Value Unit Range Abnormal Flag Note LastModifiedBy Organization Detail LastModifiedTime 04/09/2004/09/2021 hemog lobin A1Crafal hemoglobin A1C % 12.5 % 4.0 - 5.6 Not Available [facility] [address] [place], [address], 04/09/2021 09:59:46 04/09/2004/09/2021 gluco serafal, blood glucose, fingerstick 378 mg/dL 70 - 100 Not Available [facility] [place], [address], 04/09/2021 09:59:45 01/15/20 21 01/14/2021 hemog lobin A1C, finge rstic k hemoglobin A1C % 12.7 % 4.0 - 5.6 Not Available [facility] [address], [address], 01/14/2021 09:36:54 01/15/2001/14/2021 gluco se, finge rstic k, blood glucose, fingerstick 381 mg/dL 70 - 100 Not Available [facility] [address], [address], 01/14/2021 09:36:17 04/25/20 20 04/25/2020 hemog lobin A1C, finge rstic k hemoglobin A1C % 12.0 % 4.0 - 5.6 Not Available [facility] [address], [address], 04/25/2020 09:25:42 04/25/2004/25/2020 gluco se, finge rstic k, blood glucose, fingerstick 322 mg/dL 70 - 100 Not Available [facility] [address], [address], 04/25/2020 09:25:42 02/27/20 20 02/27/2020 hemog lobin A1C, finge rstic k hemoglobin A1C % 13.6 % 4.0 - 5.6 Not Available [facility] [address], [address], 02/26/2020 09:37:53 02/27/20 20 02/27/2020 gluco se, finge rstic k, blood glucose, fingerstick 479 mg/dL 70 - 100 Not Available [facility] [address], [address], 02/26/2020 09:37:51 Result Notes None recorded. Problems No Known Problems Medical Equipment None Reported. Allergies Allergen ID Allergen Name Allergen Category Reaction Reaction Severity Criticality Documentation Date Start Date Code Code System Note Provider Name and Address Organization Details Recorded Time [id number] [employer] medicatio n Not available Not available Not available 02/27/2020 57077 [id number] RxNorm Yolanda [facility] 0 13:47:29 Medications Name Sig Start [...] Available Not Available No t Available FreeStyle [place] Lite kit USE DIRECTED active Not Available [...] Updated DateTime 01/14/2021 157.48 cm 32.9 kg/m2 05563.63 g 82 /min 120/80 mm[Hg] Yolanda [facility] 01/14/2021 09:35:05 Date Recorded Body weight Body mass index (BMI) Body height Heart rate Systolic And Diastolic Provider Name and Address Organization Details Last Updated DateTime 02/27/2020 43453.81 g 33.3 kg/m2 157.48 cm 104 /min 116/74 mm[Hg] [facility] 02/27/2020 13:53:46 Date Recorded Body height Heart rate Body mass index (BMI) Body weight Systolic And Diastolic Provider Name and Address Organization Details Last Updated DateTime 04/13/2021 157.48 cm 99 /min 31.9 kg/m2 81029.87 g 114/78 mm[Hg] Ifrah Kennedy [facility] 04/13/2021 10:14:51 Date Recorded Body height Body mass index (BMI) Body weight Heart rate Systolic And Diastolic Provider Name and Address Organization Details Last Updated DateTime 04/28/2020 157.48 cm 34.4 kg/m2 95241.37 g 82 /min 122/80 mm[Hg] [facility] 04/28/2020 09:18:31 Social History Question Answer Notes LastModified by [employer] ion Details LastModified Time Tobacco Smoking Status Current Every Day Smoker [facility] 02/27/2020 13:54:43 How Much Tobacco Do [...] SNOMED-CT Code Diagnosis ICD10 Code Diagnosis Note [id number] PARAG MORILLO APRN ENDOCRINO [address] [place] [address] 02/27/2020 13:24:45 02/27/2020 14:38:19 Uncontrolled type 2 diabetes mellitus 736210756 E11.65 Diabetes mellitus Type 2, uncontroll ed. [...] AST 46 ALT 58 TSH 0.79 Hyperlipidemia 10374712 E78.5 Goal LDL is under 100 mg/dl. Continue current statin therapy as ordered per PCP. Continue dietary changes as recommende d. Essential hypertension [id number] I10 Goal B.P is less than 140/90 mmHg. Continue current anti-hyper tensive medication s as appropriat e per patient s PCP. [id number] PARAG MORILLO APRN ENDOCRINO [address]Y [address] [place] [address] 04/28/2020 09:01:37 04/28/2020 09:43:06 Uncontrolled type 2 diabetes mellitus [id number] E11.65 Diabetes mellitus Type 2, uncontroll ed. [...] more than 50% of the encounter. Hyperlipidemia 45778720 E78.5 Goal LDL is under 100 mg/dl. Continue current statin therapy as ordered per PCP. Continue dietary changes as recommendclayton d. Essential hypertension 20399510 I10 Goal B.P is less than 140/90 mmHg. Continue current anti-hyper tensive medication s as appropriat e per patient s PCP. [id number] PARAG MORILLO APRN ENDOCRINO [address] [place] [address] 01/14/2021 09:19:35 01/15/2021 11:38:36 Uncontrolled type 2 diabetes mellitus [id number] E11.65 Diabetes mellitus Type 2, uncontroll ed. [...] AST 46 ALT 58 TSH 0.79 Hyperlipidemia 45181578 E78.5 Goal LDL is under 100 mg/dl. Continue current statin therapy as ordered per PCP. Continue dietary changes as recommende d. Essential hypertension 89499959 I10 Goal B.P is less than 140/90 mmHg. Continue current anti-hyper tensive medication s as appropriat e per patient s PCP. [id number] PARAG MORILLO APRN ENDOCRINO [address] [place] [address] 04/13/2021 10:02:27 04/17/2021 12:36:37 Uncontrolled type 2 diabetes mellitus [id number] E11.65 Diabetes mellitus Type 2, uncontroll ed. [...] no; Will request last labs from Dr. Cuellar/[facility] , order at next visit if needed. - Patient verbalized understand ing of treatment plan. All questions answered. -Last labs on 01/24/20- requested labs from Dr. Cuellar/[facility] 14 Cr 0.73 GFR 91 AST 46 ALT 58 TSH 0.79 Hyperlipidemia 89821623 E78.5 Goal LDL is under 100 mg/dl. Continue current statin therapy as ordered per PCP. Continue dietary changes as recommende d. Essential hypertension 24372969 I10 Goal B.P is less than 140/90 [...] Mcdonald Member ID Guarantor Name 07/12/2021 1 [facility] (MEDICAID REPLACEMENT - HMO) Micheline Hernandez [id number] Micheline Hernandez 01/25/2020 1 MEDICAID-[facility] [facility] HEALTH CHOICES - FFS/TRADITIONA L Claudia Hernandez [id number] Micheline Hernandez Notes Date Note Type Note [...] Yes Hyperlipidemia: Yes PARAG MORILLO, LAKEISHA [address] [place], [address], [place] [facility] 02/27/2020 14:56:05 0 text/html Mrs. Hernandez [...] (stable); burning/tingling of feet (severe-- pain mgmt Brule) Chronic Complications: Diabetic retinopathy: No Diabetic neuropathy: Yes Diabetic nephropathy: No Hypertension: Yes Hyperlipidemia: Yes PARAG YISEL, ORNAMENTAL METAL FABRICATOR APPRENTICE [address] [place], [address], [facility] 04/28/2020 12:43:20 1 text/html Mrs. Hernandez [...] (stable); burning/tingling of feet (severe-- pain mgmt Brule- gabapentin); 8lb weight loss since last visit Chronic Complications: Diabetic retinopathy: No Diabetic neuropathy: Yes Diabetic nephropathy: No Hypertension: Yes Hyperlipidemia: Yes PARAG MORILLO, ORNAMENTAL METAL FABRICATOR APPRENTICE [address] [place], [address], [facility] 01/14/2021 10:35:48 1 text/html Mrs. Hernandez [...] stimulator. April 21, vascular surgery for ?stents ([facility]- Dr. Parham). New PCP- Dr. Cuellar. [...] (stable); burning/tingling of feet (severe-- pain mgmt Brule- gabapentin); additional 6lb weight loss since last visit Chronic Complications: Diabetic retinopathy: No Diabetic neuropathy: Yes Diabetic nephropathy: No Hypertension: Yes Hyperlipidemia: Yes PARAG MORILLO, ORNAMENTAL METAL FABRICATOR APPRENTICE [address] [place], [address], [facility] 04/13/2021 11:33:40 OBGyn Episode No OBEpisode recorded.
--- NOTE | 2025-01-04 14:30 | CT_ITS ---
FINAL REPORT TECHNIQUE: Thin section axial CT images with coronal and sagittal reformats were performed. This study was performed with techniques to keep radiation doses as low as reasonably achievable (ALARA). Individualized dose reduction techniques using automated exposure control or adjustment of mA and/or kV according to the patient's size were employed. CLINICAL HISTORY: evaluate bone changes, R/o osteomyelitis COMPARISON: Prior CT of the foot 10/22/2024 FINDINGS: CT LEFT FOOT: Since the prior CT of 10/22/2024 there has been interval resection of the proximal fifth metatarsal. There are new transverse lucencies involving the fourth proximal metatarsal, that may represent postoperative change although fracture is not excluded. There is an open wound overlying the cuboid extending to the depth of the cuboid. There is no evidence of bone destruction or gas in the deeper soft tissues. No large fluid collection is identified. IMPRESSION: 1. Interval resection of the proximal fifth metatarsal. 2. No new bone destruction is identified. 3. New transverse lucencies involving the fourth proximal metatarsal, that may represent postoperative changes or fracture. 4. No gross abscess identified. Reviewed, Interpreted and Dictated by Mark Singh MD Transcribed by Niesha Morel Authenticated and . [facility]
== END 2025-01-04 23:59 | disposition home or self-care (01) ==
LOC: RAD 10:20
PROVIDERS: PCP Nurse Practitioner Family; Visit Provider Podiatrist
DX: R93.6 Abnormal findings on diagnostic imaging of limbs (principal); E11.610 Type 2 diabetes mellitus with diabetic neuropathic arthropathy; Z98.890 Other specified postprocedural states; Z89.422 Acquired absence of other left toe(s)
CPT/HCPCS: 73700

== ENCOUNTER 2025-01-20 12:36 | Observation (INO) | payer MEDICARE, MEDICAID, SELFPAY ==
[2025-01-20] VITALS (15 sets, daily range): BP systolic 115–201; BP diastolic 64–115; PULSE 68–85; RESP 10–22; TEMP 36.4–36.9; O2SAT 95–100; BMI 26.2
--- NOTE | 2025-01-20 12:15 | CT_ITS ---
PROCEDURE INFORMATION: Exam: CT Abdomen And Pelvis With Contrast Exam date and time: 01/20/2025 1:22 PM Age: 64 years old Clinical indication: Abdominal pain; Additional info: Abd pain middle TECHNIQUE: Imaging protocol: Computed tomography of the abdomen and pelvis with contrast. Radiation optimization: All CT scans at this facility use at least one of these dose optimization techniques: automated exposure control; mA and/or kV adjustment per patient size (includes targeted exams where dose is matched to clinical indication); or iterative reconstruction. Contrast material: ISOVUE; Contrast volume: 75 ml; Contrast route: IV; COMPARISON: CT ABDOMEN PELVIS W CON 12/31/2024 6:19 PM FINDINGS: Liver: Normal. No mass. Gallbladder and biliary ducts: Gallstones in the gallbladder. The common duct is prominent. It measures 12 millimeters. This may be due to elderly status. However, if biliary obstruction is suspected clinically, recommend further evaluation.. Pancreas: Pancreatic atrophy. Pancreatic atrophy Spleen: Normal. No splenomegaly. Adrenal glands: Normal. No mass. Kidneys and ureters: 10 mm simple cyst left kidney. . No follow-up imaging recommended . Stomach and bowel: Unremarkable. No obstruction. No mucosal thickening. Appendix: No evidence of appendicitis. Intraperitoneal space: Unremarkable. No free air. No significant fluid collection. Vasculature: Unremarkable. No abdominal aortic aneurysm. Lymph nodes: Unremarkable. No enlarged lymph nodes. Urinary bladder: Unremarkable as visualized. Reproductive: Surgical resection of the uterus Bones/joints: Compression fracture of T11 of unknown age Soft tissues: Umbilical hernia contains fat IMPRESSION: 1. Gallstones in the gallbladder. 2. The common duct is prominent. It measures 12 millimeters. This may be due to elderly status. However, if biliary obstruction is suspected clinically, recommend further evaluation.. COMMENTS: Consistent with the [employer]'s Incidental Findings Committee white paper (J Am Stefanie Radiol 2018): Any incidental renal lesion less than 1 cm or classified as too small to characterize, or any incidental cystic renal lesion characterized as simple-appearing, is likely benign. No follow-up imaging is recommended for these lesions per consensus recommendations based on imaging criteria.
--- NOTE | 2025-01-20 12:15 | XR_ITS ---
PROCEDURE INFORMATION: Exam: XR Chest Exam date and time: 01/20/2025 1:24 PM Age: 64 years old Clinical indication: Pain; Chest pressure; Additional info: Cp TECHNIQUE: Imaging protocol: Radiologic exam of the chest. Views: 1 view. COMPARISON: CR XR CHEST PORTABLE PICC PLAC 10/25/2024 11:02 AM FINDINGS: Lungs: Unremarkable. No consolidation. Pleural spaces: Unremarkable. No pleural effusion. No pneumothorax. Heart/Mediastinum: Unremarkable. No cardiomegaly. Bones/joints: Unremarkable. IMPRESSION: No acute findings.
--- NOTE | 2025-01-20 12:17 | ED_ITS ---
<Statement entered by Yenny Whiteside MD - 01/20/25 23:32> I was consulted by the DESTINEY, and we discussed the complexity of the problems being addressed. I approved the treatment and management plan for this patient's care in the emergency department, thus performing a substantive portion of the medical decision making. Yenny Whiteside MD, OTTO, FACEP Discharge Plan Disposition Patient Disposition: Admitted Clinical Impressions Clinical Impression: Chest pain Discharge ED Provider: Jemma Ashby HPI <Carmita Marques APRN - Last Filed: 01/20/25 18:31> General Chief Complaint: Nausea/Vomiting/Diarrhea Stated Complaint: n/v Time Seen by Provider: 01/20/25 12:36 History of Present Illness HPI narrative: patient is a 64-year-old female PMHx SC, diabetes, hypertension, hyperlipidemia, CHF, history of cardiac arrhythmia (anticoagulated) who presents to the ED with complaints of centrally located chest pain, mid abdominal pain, nausea and vomiting that started today. Related Data Home Medications ?Medication ?Instructions ?Recorded ?Confirmed bupropion HCl 150 mg tablet,12 hr 150 mg PO BID 01/16/25 sustained-release spironolactone 25 mg tablet 25 mg PO DAILY 04/15/24 polyethylene glycol 3350 17 17 g PO DAILY 05/21/24 gram/dose oral powder (Miralax) aspirin 81 mg tablet,delayed 81 mg PO DAILY 10/20/24 0 01/16/25 release (Darshana Low Dose Aspirin) ferrous sulfate 325 mg (65 mg 325 mg PO DAILY 10/20/24 01/16/25 iron) tablet (Feosol) levothyroxine 200 mcg tablet 200 mcg PO DAILYDM 01/16/25 lubiprostone 8 mcg capsule 8 mcg PO BID 10/20/2401/16 Previous Rx's ?Medication ?Instructions ?Recorded sennosides 8.6 mg tablet (Senna 17.2 mg (2 x 8.6 mg) P O DAILY 30 04/24/24 Laxative) days #60 tabs citalopram 20 mg tablet 20 mg PO DAILY #90 tabs 08/18 09/11 clopidogrel 75 mg tablet 75 mg PO DAILY #30 tabs 09/19 08/14 lisinopril 40 mg tablet 40 mg PO HS #30 tabs 5 pantoprazole 40 mg tablet,delayed 40 mg PO HS #90 tabs 10/09/24 release cyanocobalamin (vitamin B-12) 1,000 mcg PO DAILY #30 c aps 10/26/24 1,000 mcg capsule folic acid 1 mg tablet 1 mg PO DAILY 30 days #30 ta bs 10/26/24 fluconazole 150 mg tablet 150 mg PO Q3D 2 doses #2 tab s 11/22/24 fluconazole 200 mg tablet 200 mg PO Q24H Fungal infect ion 14 11/22/24 days #14 tabs allopurinol 100 mg tablet See Rx Instructions .Route 0 12/17/24 .COMPLEX #90 tabs ondansetron 4 mg disintegrating See Rx Instructions .R oute 12/19/24 tablet .COMPLEX #30 tabs carvedilol 25 mg tablet 12.5 mg (1/2 x 25 mg) PO BID #60 12/20/24 tabs furosemide 80 mg tablet 80 mg PO DAILY 30 days #90 t abs 12/20/24 ondansetron 4 mg disintegrating 4 mg PO Q8H PRN nausea and 12/31/24 tablet vomiting 4 days #12 tabs gabapentin 300 mg capsule 300 mg PO DAILY #90 caps hydrocodone 5 mg-acetaminophen 325 1 tab PO Q8H PRN Se dutch Pain 01/01/25 mg tablet (7-10) 30 days #90 tabs Diabetic Shoes (DME) #1 ea 01/09/25 atorvastatin 40 mg tablet 40 mg PO HS #90 tabs 5 Allergies Allergy/AdvReac Type Severity Reaction Status Date / Time canagliflozin (From Invokana) Allergy Severe kidney Verified 01/16/25 09:08 issues [facility] <Carmita Marques APRN - Last Filed: 01/20/25 18:31> [facility] Disclaimer: The information contained in this section may have been updated after the patient was seen, as this information can be updated by other users. Medical History Osteomyelitis Tobacco dependence syndrome Hypertension Peripheral arterial disease CAD (coronary atherosclerotic disease) T2DM (type 2 diabetes mellitus) Decreased pedal pulses Ulcer of second toe of right foot Pulmonary edema Abnormal ankle brachial index (ELLIE) Acute on chronic systolic heart failure Closed left ankle fracture Elevated left ventricular end-diastolic pressure (LVEDP) Edema of both lower extremities Syncope Abnormal result of cardiovascular function study Typical angina Arthritis GERD (gastroesophageal reflux disease) Depression COPD (chronic obstructive pulmonary disease) Arrhythmia Hyperlipidemia Surgical History History of cancer surgery H/O total hysterectomy Hx of colonoscopy Family History Other Cancer Coronary artery disease Diabetes Heart attack Hypertension Stroke Social History (Updated 01/20/25 @ 17:47 by Joslyn Zaldivar RN) Smoking Status: Current every day smoker tobacco type: cigarettes alcohol intake: never substance use type: denies use current occupational status: unemployed and disabled Travel in the last 8 weeks?: None household members: spouse housing: house Have you lived/traveled outside [place] in past 30 days?: No Contact w/someone who lives/traveled outside US past 30 days?: No Exposure to someone with infectious disease in past 14 days?: No Do you have a fever (greater than 100.4 F or 38 C)?: No Have you tested positive for COVID-19?: No Exposed to someone with COVID-19 in past 14 days?: No Do you have a sore throat?: No Do you have a cough?: No Do you have any weakness?: No Do you have any diarrhea?: Yes Are you experiencing any unusual bleeding?: No Do you have any muscle aches/pain?: No Do you have any abdominal pain?: Yes Are you experiencing loss of taste or smell?: No Other Medical History Have you received the Flu Vaccine for this season: No Have you received the Pneumonia Vaccine: No <Carmita Marques APRN - Last Filed: 01/20/25 18:31> ROS Obtained: Yes Systems reviewed as appropriate & no additional complaints except as documented Physical Exam <Carmita Marques APRN - Last Filed: 01/20/25 18:31> General General appearance: alert Head Head exam: atraumatic Eye Eye exam: Present PERRL and EOMI Chest Chest inspection: Present normal inspection Respiratory Respiratory exam: Present normal lung sounds bilaterally; Absent respiratory distress Cardiovascular Cardiovascular exam: Present regular rate Abdominal Exam Abdominal exam: Present soft and tenderness (Around the umbilicus) Extremities Exam Extremities exam: Present full ROM Neurological Exam Neurological exam: Present alert and oriented X3 HEART Score <Carmita Marques APRN - Last Filed: 01/20/25 18:31> HEART Score HEART Score assessment performed?: No History (anamnesis): Slightly suspicious ECG: Non-specific disturbance Age: 45-65 years Risk factors: 3 or more risk factors Troponin: 1-3x normal limit HEART Score: 5 <Yenny Whiteside MD - Last Filed: 01/20/25 16:23> HEART Score HEART Score: 5 <Jemma Ashby DO - Last Filed: 01/20/25 16:26> HEART Score HEART Score: 5 Procedures <Yenny Whiteside MD - Last Filed: 01/20/25 16:23> Miscellaneous Procedure Procedure Performed: Limited RUQ ultrasound Indication: Right upper quadrant abdominal pain Identified structures: -Gallbladder -Gallbladder wall -Common bile duct -Liver Findings: Patient has a distended gallbladder there is a normal anterior gallbladder wall and biliary sludge with a positive sonographic Gregorio's but no pericholecystic fluid gallbladder wall on the anterior side is measured at 0.25 cm, she has a very dilated common bile duct at 1.4 cm maximally and was well-visualized Impression: Evidence of biliary sludge no radiographic evidence of cholecystitis there is a nonspecific dilated common bile duct maximally at 1.4 cm on my measurement Images were saved to permanent archive The study was technically adequate CPT 83555-00 This study was performed by me, and I personally interpreted all images/videos. Based on my clinical judgement, these images were adequate and did not necessitate further imaging. Critical Care <Carmita Marques APRN - Last Filed: 01/20/25 18:31> Critical Care Time Critical Care Time: No Medical Decision Making <Carmita Marques APRN - Last Filed: 01/20/25 18:31> Salty Inquiry Pt receiving controlled substance: No Vital Signs Vital Signs: 01/20/25 12:26 01/20/25 12:31 01/20/25 12:32 Temperature 97.8 F 98.4 F Temperature Source Oral Oral Pulse Rate 81 74 Pulse Rate [Right] 68 Respiratory Rate 13 22 14 Blood Pressure 192/89 H 147/95 H Blood Pressure [Right Arm] 201/94 H Blood Pressure Mean [Right Arm] 129 Blood Pressure Source Automatic Cuff Blood Pressure Source [Right Arm] Automatic Cuff Blood Pressure Position Supine Blood Pressure Position [Right Arm] Supine 02 Sat by Pulse Oximetry 100 99 99 Oxygen Delivery Method Room Air Room Air 01/20/25 13:01 01/20/25 13:23 01/20/25 13:31 Temperature Temperature Source Pulse Rate 85 Pulse Rate [Right] Respiratory Rate 18 17 Blood Pressure 176/76 H 140/68 Blood Pressure [Right Arm] Blood Pressure Mean [Right Arm] Blood Pressure Source Blood Pressure Source [Right Arm] Blood Pressure Position Blood Pressure Position [Right Arm] 02 Sat by Pulse Oximetry 99 95 Oxygen Delivery Method Room Air 01/20/25 14:30 01/20/25 15:00 01/20/25 15:30 Temperature Temperature Source Pulse Rate 85 84 Pulse Rate [Right] Respiratory Rate 15 14 10 L Blood Pressure 129/67 115/64 173/89 H Blood Pressure [Right Arm] Blood Pressure Mean [Right Arm] Blood Pressure Source Blood Pressure Source [Right Arm] Blood Pressure Position Blood Pressure Position [Right Arm] 02 Sat by Pulse Oximetry 100 100 Oxygen Delivery Method 01/20/25 16:01 01/20/25 16:30 01/20/25 17:00 Temperature Temperature Source Pulse Rate Pulse Rate [Right] Respiratory Rate 15 12 14 Blood Pressure 134/64 142/115 H 143/75 H Blood Pressure [Right Arm] Blood Pressure Mean [Right Arm] Blood Pressure Source Blood Pressure Source [Right Arm] Blood Pressure Position Blood Pressure Position [Right Arm] 02 Sat by Pulse Oximetry Oxygen Delivery Method 01/20/25 17:00 01/20/25 17:08 Temperature 97.8 F Temperature Source Oral Pulse Rate 81 Pulse Rate [Right] Respiratory Rate 15 Blood Pressure 123/75 Blood Pressure [Right Arm] Blood Pressure Mean [Right Arm] Blood Pressure Source Automatic Cuff Blood Pressure Source [Right Arm] Blood Pressure Position Supine Blood Pressure Position [Right Arm] 02 Sat by Pulse Oximetry Oxygen Delivery Method Room Air Room Air Lab Data Labs: Lab Results 01/20/25 12:32: WBC 7.6, RBC 4.26, Hgb 12.6, Hct 37.5, MCV 88.0, MCH 29.6, MCHC 33.6, RDW 14.0, Plt Count 298, MPV 8.7, Neut % (Auto) 61.2, Lymph % (Auto) 28.6, [place] % (Auto) 7.8, Eos % (Auto) 1.4, Baso % (Auto) 0.5, Neut # (Auto) 4.6, Lymph # (Auto) 2.2, [place] # (Auto) 0.6, Eos # (Auto) 0.1, Baso # (Auto) 0.0, PT 12.0, INR 1.09, APTT 23.7, Sodium 137, Potassium 4.4, Chloride 98, Carbon Dioxide 28, Anion Gap 15.4 H, BUN 38 H, Creatinine 1.00, Estimated Creat Clear 60, Estimated GFR 56 L, Est GFR ( Amer) 68, Glucose 196 H, Calcium 10.6 H, Magnesium 2.3, Total Bilirubin 0.6, AST 34, ALT 25, Alkaline Phosphatase 137 H, Troponin I 0.02, NT-Pro-B Natriuret Pep 3240 H, Total Protein 8.6 H, Albumin 4.6, Globulin 4.0 H, Albumin/Globulin Ratio 1.2, Lipase 71 01/20/25 13:57: VBG pH 7.41, VBG pCO2 47.0, VBG pO2 36.2, VBG HCO3 29.5, VBG Total CO2 31.0 H, VBG O2 Saturation 66.8, VBG Base Excess 4.2 H, VBG Lactic Acid 1.2 01/20/25 14:04: Urine Color Yellow, Urine Appearance Clear, Urine pH 8.0, Ur Specific [place] 1.020, Urine Protein 1+ A, Urine Glucose (UA) 3+, Urine Ketones Negative, Urine Blood Trace-i, Urine Nitrate Negative, Urine Bilirubin Negative, Urine Urobilinogen 0.2, Ur Leukocyte Esterase Negative, Urine RBC 3-5, Urine WBC None, Ur Squamous Epith Cells 5-10, Urine Bacteria Trace 01/20/25 15:15: Troponin I 0.04 H 01/20/25 12:32 01/20/25 12:32 Response Orders (Tests/Meds): ED MEDICATIONS Generic Name Dose Route Start Last Admin Trade Name Freq PRN Reason Stop Dose Admin Morphine Sulfate 1 mg 01/20/25 17:30 Morphine 2mg/Ml Syringe IV 02/19/25 17:29 Q2HP PRN Severe Pain (7-10) Ondansetron HCl 4 mg 01/20/25 17:30 Ondansetron 4mg/2ml Vial IV 02/19/25 17:29 Q8HP PRN Nausea Discontinued Medications Generic Name Dose Route Start Last Admin Trade Name Freq PRN Reason Stop Dose Admin Hydromorphone HCl 0.5 mg 01/20/25 15:13 01/20/25 15:33 Hydromorphone 2mg/Ml Syringe IV 01/20/25 15:14 0.5 mg ONCE ONE Administration Sodium Chloride 1,000 mls @ 999 mls/hr 01/20/25 12:15 01/20/25 12:46 Sod Chlor 0.9% 1000ml Bag IV 01/20/25 13:15 999 mls/hr .Q1H1M ONE Administration Iopamidol 75 ml 01/20/25 13:21 01/20/25 13:23 Iopamidol-370 (76%);100ml Bottle IV 01/20/25 13:22 75 ml ONCE ONE Administration Morphine Sulfate 4 mg 01/20/25 12:41 01/20/25 12:47 Morphine 4mg/Ml Syringe IV 01/20/25 12:42 4 mg ONCE ONE Administration Ondansetron HCl 4 mg 01/20/25 12:15 01/20/25 12:46 Ondansetron 4mg/2ml Vial IV 01/20/25 12:16 4 mg ONCE ONE Administration Sodium Chloride 10 ml 01/20/25 13:21 01/20/25 13:23 Sodium Chloride 0.9% 10ml Syr (Rad Only) IV 01/20/25 13:22 10 ml ONCE ONE Administration ORDERS Category Date Time Status CT abdomen pelvis w con Stat Cat Scan 01/20/25 12:15 Completed CXR --portable [XR chest portable] Stat Exams 01/20/25 12:15 Completed POCUS Point of Care (ER Only) Stat Exams 01/20/25 15:13 Completed BNP [NT Pro Brain Natriuretic Pep.] Stat Lab 01/20/25 12:32 Completed CBC w/Auto Diff [Complete Blood Count Auto Diff] Stat Lab 01/20/25 12:32 Completed CMP [Comprehensive Metabolic Panel] Stat Lab 01/20/25 12:32 Completed Lipase Stat Lab 01/20/25 12:32 Completed Magnesium Stat Lab 01/20/25 12:32 Completed PT/INR [Prothrombin Time INR] Stat Lab 01/20/25 12:32 Completed PTT [Activated Partial Thrombo Time] Stat Lab 01/20/25 12:32 Completed Trop I [Troponin I] Stat Lab 01/20/25 12:32 Completed Troponin I Q3H Lab 01/20/25 15:15 Completed Troponin I Q3H Lab 01/20/25 18:15 Received Urinalysis and Microscopic Stat Lab 01/20/25 14:04 Completed VBG [Venous Blood Gas] Stat RT 01/20/25 13:57 Completed MDM Narrative Medical Decision Narrative: In summary, patient is a 64-year-old female PMHx SC, diabetes, hypertension, hyperlipidemia, CHF, history of cardiac arrhythmia (anticoagulated) who presents to the ED with complaints of centrally located chest pain, mid abdominal pain, chills, nausea and vomiting that started today. Has not had anything for symptomatic relief prior to arrival. Denies fever, bodyaches, headache, visual disturbances, posterior neck pain, shortness of breath, back pain, dysuria. Denies history of being on any recent antibiotics. Follows with Dr. Felipe for cardiology. Denies having any previous cardiac stents. Denies any recent lower extremity edema. Upon initial evaluation patient is alert, oriented and cooperative. She is hemodynamically stable. EKG remarkable for PVCs. Physical exam remarkable for a soft abdomen, tenderness noted around the umbilicus. No chest wall tenderness. Neurovascular status intact. Differential diagnosis include pulmonary embolism, ACS, dissection, pneumonia, pneumothorax, infectious process, electrolyte abnormality, among others. Patient symptomatically managed with IV fluids, Zofran and morphine. Labs reviewed. CBC unremarkable for any leukocytosis, stable H&H. PT, INR, APTT normal. CMP unremarkable for any actionable abnormalities. First troponin < 0.02, appears to be baseline. Chest x-ray unremarkable for any acute findings per formal read. Second troponin increased to 0.04. Second EKG obtained. Discussed with patient we should admit her for chest pain and serial troponins. She reports that her condition has improved. I discussed that she will still need to follow-up with general surgery for further evaluation of her gallbladder. Jemma Ashby DO Given patient's increased second troponin to 0.04, second EKG was obtained that showed trigeminy. Given patient's rising troponins, hospital medicine was consulted for serial troponins given continued chest pressure. Patient's bedside ultrasound showed no evidence of cholecystitis but did show dilated common bile duct. Patient did not have any significant elevated LFTs or elevated bilirubin patient had no evidence of gallstones on ultrasound but did show CT evidence of gallstones. At this time, patient was felt to be appropriate for outpatient management for her gallbladder given her symptoms have largely resolved. <Yenny Whiteside MD - Last Filed: 01/20/25 16:23> Vital Signs Vital Signs: 01/20/25 12:26 01/20/25 12:31 01/20/25 12:32 Temperature 97.8 F 98.4 F Temperature Source Oral Oral Pulse Rate 81 74 Pulse Rate [Right] 68 Respiratory Rate 13 22 14 Blood Pressure 192/89 H 147/95 H Blood Pressure [Right Arm] 201/94 H Blood Pressure Mean [Right Arm] 129 Blood Pressure Source Automatic Cuff Blood Pressure Source [Right Arm] Automatic Cuff Blood Pressure Position Supine Blood Pressure Position [Right Arm] Supine 02 Sat by Pulse Oximetry 100 99 99 Oxygen Delivery Method Room Air Room Air 01/20/25 13:01 01/20/25 13:23 01/20/25 13:31 Temperature Temperature Source Pulse Rate 85 Pulse Rate [Right] Respiratory Rate 18 17 Blood Pressure 176/76 H 140/68 Blood Pressure [Right Arm] Blood Pressure Mean [Right Arm] Blood Pressure Source Blood Pressure Source [Right Arm] Blood Pressure Position Blood Pressure Position [Right Arm] 02 Sat by Pulse Oximetry 99 95 Oxygen Delivery Method Room Air 01/20/25 14:30 01/20/25 15:00 01/20/25 15:30 Temperature Temperature Source Pulse Rate 85 84 Pulse Rate [Right] Respiratory Rate 15 14 10 L Blood Pressure 129/67 115/64 173/89 H Blood Pressure [Right Arm] Blood Pressure Mean [Right Arm] Blood Pressure Source Blood Pressure Source [Right Arm] Blood Pressure Position Blood Pressure Position [Right Arm] 02 Sat by Pulse Oximetry 100 100 Oxygen Delivery Method 01/20/25 16:01 01/20/25 16:30 01/20/25 17:00 Temperature Temperature Source Pulse Rate Pulse Rate [Right] Respiratory Rate 15 12 14 Blood Pressure 134/64 142/115 H 143/75 H Blood Pressure [Right Arm] Blood Pressure Mean [Right Arm] Blood Pressure Source Blood Pressure Source [Right Arm] Blood Pressure Position Blood Pressure Position [Right Arm] 02 Sat by Pulse Oximetry Oxygen Delivery Method 01/20/25 17:00 01/20/25 17:08 Temperature 97.8 F Temperature Source Oral Pulse Rate 81 Pulse Rate [Right] Respiratory Rate 15 Blood Pressure 123/75 Blood Pressure [Right Arm] Blood Pressure Mean [Right Arm] Blood Pressure Source Automatic Cuff Blood Pressure Source [Right Arm] Blood Pressure Position Supine Blood Pressure Position [Right Arm] 02 Sat by Pulse Oximetry Oxygen Delivery Method Room Air Room Air Lab Data Labs: Lab Results 01/20/25 12:32: WBC 7.6, RBC 4.26, Hgb 12.6, Hct 37.5, MCV 88.0, MCH 29.6, MCHC 33.6, RDW 14.0, Plt Count 298, MPV 8.7, Neut % (Auto) 61.2, Lymph % (Auto) 28.6, [place] % (Auto) 7.8, Eos % (Auto) 1.4, Baso % (Auto) 0.5, Neut # (Auto) 4.6, Lymph # (Auto) 2.2, [place] # (Auto) 0.6, Eos # (Auto) 0.1, Baso # (Auto) 0.0, PT 12.0, INR 1.09, APTT 23.7, Sodium 137, Potassium 4.4, Chloride 98, Carbon Dioxide 28, Anion Gap 15.4 H, BUN 38 H, Creatinine 1.00, Estimated Creat Clear 60, Estimated GFR 56 L, Est GFR ( Amer) 68, Glucose 196 H, Calcium 10.6 H, Magnesium 2.3, Total Bilirubin 0.6, AST 34, ALT 25, Alkaline Phosphatase 137 H, Troponin I 0.02, NT-Pro-B Natriuret Pep 3240 H, Total Protein 8.6 H, Albumin 4.6, Globulin 4.0 H, Albumin/Globulin Ratio 1.2, Lipase 71 01/20/25 13:57: VBG pH 7.41, VBG pCO2 47.0, VBG pO2 36.2, VBG HCO3 29.5, VBG Total CO2 31.0 H, VBG O2 Saturation 66.8, VBG Base Excess 4.2 H, VBG Lactic Acid 1.2 01/20/25 14:04: Urine Color Yellow, Urine Appearance Clear, Urine pH 8.0, Ur Specific [place] 1.020, Urine Protein 1+ A, Urine Glucose (UA) 3+, Urine Ketones Negative, Urine Blood Trace-i, Urine Nitrate Negative, Urine Bilirubin Negative, Urine Urobilinogen 0.2, Ur Leukocyte Esterase Negative, Urine RBC 3-5, Urine WBC None, Ur Squamous Epith Cells 5-10, Urine Bacteria Trace 01/20/25 15:15: Troponin I 0.04 H Response Orders (Tests/Meds): ED MEDICATIONS Generic Name Dose Route Start Last Admin Trade Name Freq PRN Reason Stop Dose Admin Morphine Sulfate 1 mg 01/20/25 17:30 Morphine 2mg/Ml Syringe IV 02/19/25 17:29 Q2HP PRN Severe Pain (7-10) Ondansetron HCl 4 mg 01/20/25 17:30 Ondansetron 4mg/2ml Vial IV 02/19/25 17:29 Q8HP PRN Nausea Discontinued Medications Generic Name Dose Route Start Last Admin Trade Name Freq PRN Reason Stop Dose Admin Hydromorphone HCl 0.5 mg 01/20/25 15:13 01/20/25 15:33 Hydromorphone 2mg/Ml Syringe IV 01/20/25 15:14 0.5 mg ONCE ONE Administration Sodium Chloride 1,000 mls @ 999 mls/hr 01/20/25 12:15 01/20/25 12:46 Sod Chlor 0.9% 1000ml Bag IV 01/20/25 13:15 999 mls/hr .Q1H1M ONE Administration Iopamidol 75 ml 01/20/25 13:21 01/20/25 13:23 Iopamidol-370 (76%);100ml Bottle IV 01/20/25 13:22 75 ml ONCE ONE Administration Morphine Sulfate 4 mg 01/20/25 12:41 01/20/25 12:47 Morphine 4mg/Ml Syringe IV 01/20/25 12:42 4 mg ONCE ONE Administration Ondansetron HCl 4 mg 01/20/25 12:15 01/20/25 12:46 Ondansetron 4mg/2ml Vial IV 01/20/25 12:16 4 mg ONCE ONE Administration Sodium Chloride 10 ml 01/20/25 13:21 01/20/25 13:23 Sodium Chloride 0.9% 10ml Syr (Rad Only) IV 01/20/25 13:22 10 ml ONCE ONE Administration ORDERS Category Date Time Status CT abdomen pelvis w con Stat Cat Scan 01/20/25 12:15 Completed CXR --portable [XR chest portable] Stat Exams 01/20/25 12:15 Completed POCUS Point of Care (ER Only) Stat Exams 01/20/25 15:13 Completed BNP [NT Pro Brain Natriuretic Pep.] Stat Lab 01/20/25 12:32 Completed CBC w/Auto Diff [Complete Blood Count Auto Diff] Stat Lab 01/20/25 12:32 Completed CMP [Comprehensive Metabolic Panel] Stat Lab 01/20/25 12:32 Completed Lipase Stat Lab 01/20/25 12:32 Completed Magnesium Stat Lab 01/20/25 12:32 Completed PT/INR [Prothrombin Time INR] Stat Lab 01/20/25 12:32 Completed PTT [Activated Partial Thrombo Time] Stat Lab 01/20/25 12:32 Completed Trop I [Troponin I] Stat Lab 01/20/25 12:32 Completed Troponin I Q3H Lab 01/20/25 15:15 Completed Troponin I Q3H Lab 01/20/25 18:15 Received Urinalysis and Microscopic Stat Lab 01/20/25 14:04 Completed VBG [Venous Blood Gas] Stat RT 01/20/25 13:57 Completed <Jemma Ashby, DO - Last Filed: 01/20/25 16:26> Vital Signs Vital Signs: 01/20/25 12:26 01/20/25 12:31 01/20/25 12:32 Temperature 97.8 F 98.4 F Temperature Source Oral Oral Pulse Rate 81 74 Pulse Rate [Right] 68 Respiratory Rate 13 22 14 Blood Pressure 192/89 H 147/95 H Blood Pressure [Right Arm] 201/94 H Blood Pressure Mean [Right Arm] 129 Blood Pressure Source Automatic Cuff Blood Pressure Source [Right Arm] Automatic Cuff Blood Pressure Position Supine Blood Pressure Position [Right Arm] Supine 02 Sat by Pulse Oximetry 100 99 99 Oxygen Delivery Method Room Air Room Air 01/20/25 13:01 01/20/25 13:23 01/20/25 13:31 Temperature Temperature Source Pulse Rate 85 Pulse Rate [Right] Respiratory Rate 18 17 Blood Pressure 176/76 H 140/68 Blood Pressure [Right Arm] Blood Pressure Mean [Right Arm] Blood Pressure Source Blood Pressure Source [Right Arm] Blood Pressure Position Blood Pressure Position [Right Arm] 02 Sat by Pulse Oximetry 99 95 Oxygen Delivery Method Room Air 01/20/25 14:30 01/20/25 15:00 01/20/25 15:30 Temperature Temperature Source Pulse Rate 85 84 Pulse Rate [Right] Respiratory Rate 15 14 10 L Blood Pressure 129/67 115/64 173/89 H Blood Pressure [Right Arm] Blood Pressure Mean [Right Arm] Blood Pressure Source Blood Pressure Source [Right Arm] Blood Pressure Position Blood Pressure Position [Right Arm] 02 Sat by Pulse Oximetry 100 100 Oxygen Delivery Method 01/20/25 16:01 01/20/25 16:30 01/20/25 17:00 Temperature Temperature Source Pulse Rate Pulse Rate [Right] Respiratory Rate 15 12 14 Blood Pressure 134/64 142/115 H 143/75 H Blood Pressure [Right Arm] Blood Pressure Mean [Right Arm] Blood Pressure Source Blood Pressure Source [Right Arm] Blood Pressure Position Blood Pressure Position [Right Arm] 02 Sat by Pulse Oximetry Oxygen Delivery Method 01/20/25 17:00 01/20/25 17:08 Temperature 97.8 F Temperature Source Oral Pulse Rate 81 Pulse Rate [Right] Respiratory Rate 15 Blood Pressure 123/75 Blood Pressure [Right Arm] Blood Pressure Mean [Right Arm] Blood Pressure Source Automatic Cuff Blood Pressure Source [Right Arm] Blood Pressure Position Supine Blood Pressure Position [Right Arm] 02 Sat by Pulse Oximetry Oxygen Delivery Method Room Air Room Air Lab Data Lab results reviewed: Yes I reviewed the patient's lab results. Labs: Lab Results 01/20/25 12:32: WBC 7.6, RBC 4.26, Hgb 12.6, Hct 37.5, MCV 88.0, MCH 29.6, MCHC 33.6, RDW 14.0, Plt Count 298, MPV 8.7, Neut % (Auto) 61.2, Lymph % (Auto) 28.6, [place] % (Auto) 7.8, Eos % (Auto) 1.4, Baso % (Auto) 0.5, Neut # (Auto) 4.6, Lymph # (Auto) 2.2, [place] # (Auto) 0.6, Eos # (Auto) 0.1, Baso # (Auto) 0.0, PT 12.0, INR 1.09, APTT 23.7, Sodium 137, Potassium 4.4, Chloride 98, Carbon Dioxide 28, Anion Gap 15.4 H, BUN 38 H, Creatinine 1.00, Estimated Creat Clear 60, Estimated GFR 56 L, Est GFR ( Amer) 68, Glucose 196 H, Calcium 10.6 H, Magnesium 2.3, Total Bilirubin 0.6, AST 34, ALT 25, Alkaline Phosphatase 137 H, Troponin I 0.02, NT-Pro-B Natriuret Pep 3240 H, Total Protein 8.6 H, Albumin 4.6, Globulin 4.0 H, Albumin/Globulin Ratio 1.2, Lipase 71 01/20/25 13:57: VBG pH 7.41, VBG pCO2 47.0, VBG pO2 36.2, VBG HCO3 29.5, VBG Total CO2 31.0 H, VBG O2 Saturation 66.8, VBG Base Excess 4.2 H, VBG Lactic Acid 1.2 01/20/25 14:04: Urine Color Yellow, Urine Appearance Clear, Urine pH 8.0, Ur Specific [place] 1.020, Urine Protein 1+ A, Urine Glucose (UA) 3+, Urine Ketones Negative, Urine Blood Trace-i, Urine Nitrate Negative, Urine Bilirubin Negative, Urine Urobilinogen 0.2, Ur Leukocyte Esterase Negative, Urine RBC 3-5, Urine WBC None, Ur Squamous Epith Cells 5-10, Urine Bacteria Trace 01/20/25 15:15: Troponin I 0.04 H Response Orders (Tests/Meds): ED MEDICATIONS Generic Name Dose Route Start Last Admin Trade Name Freq PRN Reason Stop Dose Admin Morphine Sulfate 1 mg 01/20/25 17:30 Morphine 2mg/Ml Syringe IV 02/19/25 17:29 Q2HP PRN Severe Pain (7-10) Ondansetron HCl 4 mg 01/20/25 17:30 Ondansetron 4mg/2ml Vial IV 02/19/25 17:29 Q8HP PRN Nausea Discontinued Medications Generic Name Dose Route Start Last Admin Trade Name Freq PRN Reason Stop Dose Admin Hydromorphone HCl 0.5 mg 01/20/25 15:13 01/20/25 15:33 Hydromorphone 2mg/Ml Syringe IV 01/20/25 15:14 0.5 mg ONCE ONE Administration Sodium Chloride 1,000 mls @ 999 mls/hr 01/20/25 12:15 01/20/25 12:46 Sod Chlor 0.9% 1000ml Bag IV 01/20/25 13:15 999 mls/hr .Q1H1M ONE Administration Iopamidol 75 ml 01/20/25 13:21 01/20/25 13:23 Iopamidol-370 (76%);100ml Bottle IV 01/20/25 13:22 75 ml ONCE ONE Administration Morphine Sulfate 4 mg 01/20/25 12:41 01/20/25 12:47 Morphine 4mg/Ml Syringe IV 01/20/25 12:42 4 mg ONCE ONE Administration Ondansetron HCl 4 mg 01/20/25 12:15 01/20/25 12:46 Ondansetron 4mg/2ml Vial IV 01/20/25 12:16 4 mg ONCE ONE Administration Sodium Chloride 10 ml 01/20/25 13:21 01/20/25 13:23 Sodium Chloride 0.9% 10ml Syr (Rad Only) IV 01/20/25 13:22 10 ml ONCE ONE Administration ORDERS Category Date Time Status CT abdomen pelvis w con Stat Cat Scan 01/20/25 12:15 Completed CXR --portable [XR chest portable] Stat Exams 01/20/25 12:15 Completed POCUS Point of Care (ER Only) Stat Exams 01/20/25 15:13 Completed BNP [NT Pro Brain Natriuretic Pep.] Stat Lab 01/20/25 12:32 Completed CBC w/Auto Diff [Complete Blood Count Auto Diff] Stat Lab 01/20/25 12:32 Completed CMP [Comprehensive Metabolic Panel] Stat Lab 01/20/25 12:32 Completed Lipase Stat Lab 01/20/25 12:32 Completed Magnesium Stat Lab 01/20/25 12:32 Completed PT/INR [Prothrombin Time INR] Stat Lab 01/20/25 12:32 Completed PTT [Activated Partial Thrombo Time] Stat Lab 01/20/25 12:32 Completed Trop I [Troponin I] Stat Lab 01/20/25 12:32 Completed Troponin I Q3H Lab 01/20/25 15:15 Completed Troponin I Q3H Lab 01/20/25 18:15 Received Urinalysis and Microscopic Stat Lab 01/20/25 14:04 Completed VBG [Venous Blood Gas] Stat RT 01/20/25 13:57 Completed ECG Data Tracing #1: Attestation: I reviewed this ECG and interpreted as documented below: ECG Narrative: EKG showed normal sinus rhythm, PVCs no other acute ST or T wave changes concerning for ischemia Tracing #2: ECG Narrative: Normal sinus rhythm, trigeminy no other acute ST or T wave changes concerning for ischemia MDM Narrative Medical Decision Narrative: In summary, patient is a 64-year-old female PMHx SC, diabetes, hypertension, hyperlipidemia, CHF, history of cardiac arrhythmia (anticoagulated) who presents to the ED with complaints of centrally located chest pain, mid abdominal pain, chills, nausea and vomiting that started today. Has not had anything for symptomatic relief prior to arrival. Denies fever, bodyaches, headache, visual disturbances, posterior neck pain, shortness of breath, back pain, dysuria. Denies history of being on any recent antibiotics. Follows with Dr. Felipe for cardiology. Denies having any previous cardiac stents. Denies any recent lower extremity edema. Upon initial evaluation patient is alert, oriented and cooperative. She is hemodynamically stable. EKG remarkable for PVCs. Physical exam remarkable for a soft abdomen, tenderness noted around the umbilicus. No chest wall tenderness. Neurovascular status intact. Differential diagnosis include pulmonary embolism, ACS, dissection, pneumonia, pneumothorax, infectious process, electrolyte abnormality, among others. Patient symptomatically managed with IV fluids, Zofran and morphine. Labs reviewed. CBC unremarkable for any leukocytosis, stable H&H. PT, INR, APTT normal. CMP unremarkable for any actionable abnormalities. First troponin < 0.02, appears to be baseline. Chest x-ray unremarkable for any acute findings per formal read. Second troponin increased to 0.04. Second EKG obtained. Jemma Ashby DO Given patient's increased second troponin to 0.04, second EKG was obtained that showed trigeminy. Given patient's rising troponins, hospital medicine was consulted for serial troponins given continued chest pressure. Patient's bedside ultrasound showed no evidence of cholecystitis but did show dilated common bile duct. Patient did not have any significant elevated LFTs or elevated bilirubin patient had no evidence of gallstones on ultrasound but did show CT evidence of gallstones. At this time, patient was felt to be appropriate for outpatient management for her gallbladder given her symptoms have largely resolved.
--- NOTE | 2025-01-20 12:21 | ECG_ITS ---
APPROVED REPORT Exam: Resting ECG HR:81 bpm ECG Measurements Heart Rate 81 AXES GA 174 P 16 QRSd 151 QRS 53 QT 440 T 55 QTc 477 Conclusion SINUS RHYTHM WITH FREQUENT VENTRICULAR PREMATURE COMPLEXES INDETERMINATE AXIS RIGHT BUNDLE BRANCH BLOCK [120+ ms QRS DURATION, UPRIGHT V1, 40+ ms S IN I/aVL/V4/V5/V6] ABNORMAL ECG UNCONFIRMED REPORT Electronically signed by : VICENTA MACIAS, 01/22/2025 04:21:04
[2025-01-20] MEDS: ONDANSETRON 4MG/2ML VIAL 4 MG IV ×2 (12:46→20:42)
[2025-01-20] MEDS: 0.9 % SODIUM CHLORIDE 1000ML 1,000 ML 999 ML IV (12:46)
[2025-01-20] MEDS: MORPHINE 4MG/ML SYRINGE 4 MG IV (12:47)
--- OUTSIDE RECORDS SUMMARY | 2025-01-20 12:47 | XMS_ITS | Continuity of Care Document ---
Author Organization [facility]. If a dditional information is needed, contact Health Information Management at [phone] Address [address] [place] [address] Phone Care Team Providers Care Mushroom Packer Name Role Phone Unavailable Unavailable Unavailable Encounters pre-admission 06-Sep-2023 11:21 Neo Boles (Attending) Collette
--- OUTSIDE RECORDS SUMMARY | 2025-01-20 12:48 | XMS_ITS | Encounter Summary ---
Author Organization [employer] ([place], [place], [place], [place]) Address [address] [place] [address] Care Team Providers Care Space And Missile Defense Operations Name Role Phone Unavailable Primary Care Provider Unavailabl e Encounter Details Date Type Department Care Team (Late st Contact Info) Description 03/22/2019 Transcribed Document [facility] [place] Family Medicine [facility] [place] [address] ProviderJace MD [address] [place] [address] Social History Tobacco Use Types Packs/Day [...] Ventura MD - 03/22/2019 4:38 PM CDT [facility] [place] [address] MICHELINE HERNANDEZ :1960 Visit Time:03/22/2019 [...] Within 3 to 5 days Where: [address] [facility] [address] [place] [address] Business (1) Follow Up with Patient Resource [...] Within 2 to 3 days Where: [address] [place] [address] [facility] [place] (1) Allergies No Known Allergies Immunizations This [...] range between ( 0.0 and 7.0 ) [place] #: 0.54 K/uL -- Normal range between ( 0.16 and 1.00 ) [place]os #: 0.28 x10(3)/uL -- Normal range between ( 0.00 and 0.80 ) [place] %: 6.3 % -- Normal range between [...] /LPF Urine Bilirubin Dipstick: Negative Urine Specific [place]: 1.009 -- Normal range between ( 1.005 [...] treat less common causes of UTI. ??? Tywe-ugj-oduqalo medicines to treat pain. ??? Drinking enough water to stay hydrated. Follow these instructions at home: ??? Take chzh-dow-cnrcyxv and prescription medicines only as told by [...] 03/16/2006 Document Revised: 11/29/2017 Document Reviewed: 04/26/2016 [employer] Interactive Patient Education ?? 2019 [employer] Nonspecific Chest Pain Chest pain can [...] you start to feel better. ??? Take ujqo-wwe-zrnbdce and prescription medicines only as told by [...] 03/16/2006 Document Revised: 02/28/2017 Document Reviewed: 02/28/2017 [employer] Interactive Patient Education ?? 2019 [employer]. Emergency Awareness and Preventative Care STROKE is [...] Assistance with quitting is available by contacting 1-548-GYBY-NOW. This is a free resource providing counseling, [...] was given the opportunity to ask questions. Patient/Wireless Sales Manager Name: Patient/Wireless Sales Manager Signature: Relationship to Patient: Clinician/Hospital Wireless Sales Manager Signature: Please Provide a Telephone Number Where You Can Be Reached: Is it Permissible To Leave a Message? Date: documented in this encounter Plan of Treatment Not on file documented as of this encounter Visit Diagnoses Not on filedocumented in this encounter
--- OUTSIDE RECORDS SUMMARY | 2025-01-20 12:48 | XMS_ITS | Clinical Summary ---
Author Organization [employer] ([place], [place], [place], [place]) Address [address] [place] [address] Care Team Providers Care Director Of Distance Learning Name Role Phone Unavailable Primary Care Provider [...]
--- OUTSIDE RECORDS SUMMARY | 2025-01-20 12:48 | XMS_ITS | Encounter Summary ---
Author Organization [employer] ([place], [place], [place], [place]) Address [address] [place] [address] Care Team Providers Care Wet End Helper Name Role Phone Unavailable Primary Care Provider Unavailabl e Encounter Details Date Type Department Care Team (Late st Contact Info) Description 03/22/2019 Transcribed Document [facility] Family Medicine [facility] [place] [address] ProviderJace MD [facility] [place], [place] [address] Social History Tobacco Use Types Packs/Day Years [...] EDT Electronically signed by Janie Manriquez Conversion C2 Tactical Analysis Technician Cerner at 10/06/2022 1:01 PM CDT documented in this encounter Plan of Treatment Not on file documented as of this encounter Visit Diagnoses Not on filedocumented in this encounter
--- OUTSIDE RECORDS SUMMARY | 2025-01-20 12:48 | XMS_ITS | Encounter Summary ---
Author Organization [employer] ([place], [place], [place], [place]) Address [address] [place] [address] Care Team Providers Care Water Quality Control Engineer Name Role Phone Unavailable Primary Care Provider Unavailabl e Encounter Details Date Type Department Care Team (Late st Contact Info) Description 03/22/2019 Transcribed Document [facility] [place] [facility] [place] [address] ProviderJace MD [address] [place] [address] Social History Tobacco Use Types Packs/Day [...] at present; 324 asa and one Ntg ALLIED HEALTH PROFESSIONAL . History of Present Illness The patient [...] reflux disease HLD (hyperlipidemia) HTN (hypertension) Hypothyroid DE Obesity Post-menopause Sleep apnea Syncope , per [...] EDT Height Source Stated Height Entry Format [place] Height/Length, ITALIAN (ft) 5 ft Height/Length ITALIAN 2 Inch CLINICALHEIGHT 157.48 cm [place] Body Weight 49.73 kg Weight Source, ED Critical estimated dosing weight Weight Entry Format [place] Weight [place] lb 183 lb CLINICALWEIGHT 83.18 kg Body [...] ED Adult Triage: ED Clinical Reconciliation: ED sling operator: Lipase Level: Normal Saline Flush: 10 mL, IV Push, See Comment ProBNP: Saline Lock Insert: Troponin I Ultra: Troponin I Ultra: Urinalysis w Culture if Indicated: . Electrocardiogram: Time 03/22/2019 11:39:00, rate 88, normal sinus rhythm, No ST changes, no ectopy, normal TX & QRS intervals, EP Interp. Electrocardiogram: Time 03/22/2019 15:41:00, rate 75, normal sinus rhythm, No ST changes, no ectopy, normal TX & QRS intervals, EP Interp. vp talent management: Normal sinus rhythm. Results review: All Results [...] % 38.9 % Lymph # 3.35 x10(3)/uL [place] % 6.3 % [place] # 0.54 K/uL Eos % 3.2 % Eos # 0.28 x10(3)/uL Baso % 0.6 % Baso # 0.05 x10(3)/uL Slide Review No IG# 0.05 x10(3)/uL IG% 0.60 % 03/22/2019 12:20 EDT Urine Type. U CleanCatch Urine Color Yellow Urine Appearance Clear Urine Specific [place] 1.009 Urine pH Dipstick 6.0 Urine Leukocyte Esterase Moderate Urine Nitrite Negative Urine Protein Dipstick Negative Urine Glucose Dipstick 100 Urine Ketones Dipstick Negative Urine Urobilinogen Dipstick 0.2 EU/dL Urine Bilirubin Dipstick Negative Urine Blood Dipstick Negative Ur WBC 10-20 /HPF Ur Bacteria 3+ Ur Epithelial Cells 10-20 /HPF Ur Hyaline Casts 10-20 /LPF . Radiology results: Radiology Results (Last 48 hours) [id number] -- 03/22/2019 11:35 CR Chest 1 Vw [...] to: Time: 03/22/2019 16:06:00, GIL PHILLIPS PA-C, [id number] Patient feeling well. Reports no chest pain and no abdomen pain. She had the pain she had this morning yesterday also. She had sausage this morning before this pain and vomiting. Abdomen soft/some epigastric tenderness. No guarding. She has not see cardiology in over 3 years. Advised f/u PCP and cardiology.. Prescriptions: Prescription [facility]: Macrobid 100 mg oral capsule (Prescribe): [...] of instructions. Notes: I certify that the MLP/RESOLUTION ANALYST performed the services as delegated. . documented in this encounter Plan of Treatment Not on file documented as of this encounter Visit Diagnoses Not on filedocumented in this encounter
--- OUTSIDE RECORDS SUMMARY | 2025-01-20 12:48 | XMS_ITS | Encounter Summary ---
Author Organization [employer] ([place], [place], [place], [place]) Address [address] [place] [address] Care Team Providers Care Sales Market Leader Name Role Phone Unavailable Primary Care Provider Unavailabl e Encounter Details Date Type Department Care Team (Late st Contact Info) Description 03/25/[address] [facility] [place] [facility] [place] [address] ProviderJace MD [address] [place], [place] [address] Social History Tobacco Use Types Packs/Day Years [...]
--- OUTSIDE RECORDS SUMMARY | 2025-01-20 12:48 | XMS_ITS | Encounter Summary ---
Author Organization [employer] ([place], [place], [place], [place]) Address [address] [place] [address] Care Team Providers Care User Experience Team Lead Name Role Phone Unavailable Primary Care Provider Unavailabl e Encounter Details Date Type Department Care Team (Late st Contact Info) Description 03/22/2019 Transcribed Document [facility] Family Medicine [facility] [place] [address] ProviderJace MD [address] [place] [address] Social History Tobacco Use Types Packs/Day [...] at present; 324 asa and one Ntg FIELD AIDE Cornelia Baird RN - 03/22/2019 11:36 EDT DCP GENERIC CODE Tracking Acuity : 2 - Emergent Tracking Group : [facility] ED Cornelia Baird RN - 03/22/2019 11:36 EDT Mode of Arrival : Stretcher Transported to ED by : Ambulance/ALS EMS [facility] : [facility] To Room Via : Stretcher Accompanied By : supervisor filtration ED Vital Signs : Document Height & Weight : Document ED Allergies : Document ED Reason for Visit : Document Tetanus Immunization : Unknown Tried to Harm Yourself in the Past? : No Thoughts of Harming/Killing Yourself : No Recent Thoughts of Harming/Killing Others : No It Application Architect Needed : No Cornelia Baird RN - [...] Estimated Onset Date: Unspecified ; Created By: [email or web address] Softwaresystem HIST_[place]; Reaction Status: Active ; Category: Drug ; Substance: No Known Allergies ; Type: Allergy ; Updated By: Contributor_system HIST_Targeted GrowthTK; Reviewed Date: 03/22/2019 11:38 EDT Diagnosis Control ED (As Of: 03/22/2019 11:43:15 EDT) Problems(Active) A-fib (SNOMED CT :11447878 ) Name of Problem: A-fib ; Recorder: Isaac Dacosta Rn; Confirmation: Confirmed ; Classification: Patient Stated ; Code: [id number] ; Contributor System: [employer] ; Last Updated: 12/23/2014 17:58 EDT ; Life Cycle Date: 12/23/2014 ; Life Cycle Status: Active ; Vocabulary: SNOMED CT Arthritis (SNOMED CT :5224894 ) Name of Problem: Arthritis ; Recorder: Isaac Dacosta Rn; Confirmation: Confirmed ; Classification: Patient Stated ; Code: 1808706 ; Contributor System: [employer] ; Last Updated: 12/23/2014 18:35 EDT ; Life Cycle Date: 12/23/2014 ; Life Cycle Status: Active ; Vocabulary: SNOMED CT Back pain, chronic (SNOMED CT :053515238 ) Name of Problem: Back pain, chronic ; Recorder: ARMANDO CASTRO RN; Confirmation: Confirmed ; Classification: Patient Stated ; Code: [id number] ; Contributor System: PowerChart ; Last Updated: 06/17/2017 10:09 EST ; Life Cycle Date: 06/17/2017 ; Life Cycle Status: Active ; Vocabulary: SNOMED CT CAD (coronary artery disease) (SNOMED CT :53053569 ) Name of Problem: CAD (coronary artery disease) ; Recorder: Isaac Dacosta Rn; Confirmation: Confirmed ; Classification: Patient Stated ; Code: 65555265 ; Contributor System: PowerChart ; Last Updated: 12/23/2014 17:58 EDT ; Life Cycle Date: 12/23/2014 ; Life Cycle Status: Active ; Vocabulary: SNOMED CT Cardiomyopathy (SNOMED CT :791713123 ) Name of Problem: Cardiomyopathy ; Recorder: ARMANDO CASTRO RN; Confirmation: Confirmed ; Classification: Patient Stated ; Code: 154321614 ; Contributor System: PowerChart ; Last Updated: 06/17/2017 10:07 EST ; Life Cycle Date: 06/17/2017 ; Life Cycle Status: Active ; Vocabulary: SNOMED CT Carotid artery stenosis (SNOMED CT :893461624 ) Name of Problem: Carotid artery stenosis ; Recorder: ARMANDO CASTRO RN; Confirmation: Confirmed ; Classification: Patient Stated ; Code: [id number] ; Contributor System: PowerChart ; Last Updated: 06/17/2017 10:08 EST ; Life Cycle Date: 06/17/2017 ; Life Cycle Status: Active ; Vocabulary: SNOMED CT Carpal tunnel syndrome (SNOMED CT :93176541 ) Name of Problem: Carpal tunnel syndrome ; Recorder: Isaac Dacosta Rn; Confirmation: Confirmed ; Classification: Patient Stated ; Code: 17202275 ; Contributor System: PowerChart ; Last Updated: 12/23/2014 18:34 EDT ; Life Cycle Date: 12/23/2014 ; Life Cycle Status: Active ; Vocabulary: SNOMED CT Chronic anxiety (SNOMED CT :466131149 ) Name of Problem: Chronic anxiety ; Recorder: ARMANDO CASTRO RN; Confirmation: Confirmed ; Classification: Patient Stated ; Code: 771028322 ; Contributor System: PowerChart ; Last Updated: 06/17/2017 10:11 EST ; Life Cycle Date: 06/17/2017 ; Life Cycle Status: Active ; Vocabulary: SNOMED CT Chronic depression (SNOMED CT :238418861 ) Name of Problem: Chronic depression ; Recorder: ARMANDO CASTRO RN; Confirmation: Confirmed ; Classification: Patient Stated ; Code: 219572668 ; Contributor System: [employer]wardChart ; Last Updated: 06/17/2017 10:11 EST ; Life Cycle Date: 06/17/2017 ; Life Cycle Status: Active ; Vocabulary: SNOMED CT Cigarette smoker (SNOMED CT :146986070 ) Name of Problem: Cigarette smoker ; Recorder: Isaac Dacosta Rn; Confirmation: Confirmed ; Classification: Patient Stated ; Code: 789176645 ; Contributor System: PowerChart ; Last Updated: 12/23/2014 18:36 EDT ; Life Cycle Date: 12/23/2014 ; Life Cycle Status: Active ; Vocabulary: SNOMED CT Diabetes (SNOMED CT :748113070 ) Name of Problem: Diabetes ; Recorder: Isaac Dacosta Rn; Confirmation: Confirmed ; Classification: Patient Stated ; Code: 357403307 ; Contributor System: PowerChart ; Last Updated: 12/23/2014 17:57 EDT ; Life Cycle Date: 12/23/2014 ; Life Cycle Status: Active ; Vocabulary: SNOMED CT Diabetic peripheral neuropathy (SNOMED CT :1926934965 ) Name of Problem: Diabetic peripheral neuropathy ; Recorder: Isaac Dacosta Rn; Confirmation: Confirmed ; Classification: Patient Stated ; Code: 3334826305 ; Contributor System: PowerChart ; Last Updated: 12/23/2014 18:35 EDT ; Life Cycle Date: 12/23/2014 ; Life Cycle Status: Active ; Vocabulary: SNOMED CT GERD - Gastro-esophageal reflux disease (SNOMED CT :9559063844 ) Name of Problem: GERD - Gastro-esophageal reflux disease ; Recorder: ARMANDO CASTRO RN; Confirmation: Confirmed ; Classification: Patient Stated ; Code: [id number] ; Contributor System: PowerChart ; Last Updated: 06/17/2017 10:09 EST ; Life Cycle Date: 06/17/2017 ; Life Cycle Status: Active ; Vocabulary: SNOMED CT HLD (hyperlipidemia) (SNOMED CT :78858261 ) Name of Problem: HLD (hyperlipidemia) ; Recorder: Isaac Dacosta Rn; Confirmation: Confirmed ; Classification: Patient Stated ; Code: 55528420 ; Contributor System: PowerChart ; Last Updated: 12/23/2014 17:58 EDT ; Life Cycle Date: 12/23/2014 ; Life Cycle Status: Active ; Vocabulary: SNOMED CT HTN (hypertension) (SNOMED CT :5893067236 ) Name of Problem: HTN (hypertension) ; Recorder: Isaac Dacosta Rn; Confirmation: Confirmed ; Classification: Patient Stated ; Code: 8251151409 ; Contributor System: PowerChart ; Last Updated: 12/23/2014 17:58 EDT ; Life Cycle Date: 12/23/2014 ; Life Cycle Status: Active ; Vocabulary: SNOMED CT Hypothyroid (SNOMED CT :53269098 ) Name of Problem: Hypothyroid ; Recorder: Isaac Dacosta Rn; Confirmation: Confirmed ; Classification: Patient Stated ; Code: 54589190 ; Contributor System: PowerChart ; Last Updated: 12/23/2014 18:33 EDT ; Life Cycle Date: 12/23/2014 ; Life Cycle Status: Active ; Vocabulary: SNOMED CT ND (SNOMED CT :934969609 ) Name of Problem: ND ; Recorder: Isaac Dacosta Rn; Confirmation: Confirmed ; Classification: Patient Stated ; Code: 021561312 ; Contributor System: PowerChart ; Last Updated: 12/23/2014 17:57 EDT ; Life Cycle Date: 12/23/2014 ; Life Cycle Status: Active ; Vocabulary: SNOMED CT Obesity (SNOMED CT :0509647813 ) Name of Problem: Obesity ; Recorder: Isaac Dacosta Rn; Confirmation: Confirmed ; Classification: Patient Stated ; Code: 4933372367 ; Contributor System: PowerChart ; Last Updated: 12/23/2014 18:34 EDT ; Life Cycle Date: 12/23/2014 ; Life Cycle Status: Active ; Vocabulary: SNOMED CT Post-menopause (SNOMED CT :292100209 ) Name of Problem: Post-menopause ; Recorder: Isaac Dacosta Rn; Confirmation: Confirmed ; Classification: Patient Stated ; Code: 072988943 ; Contributor System: PowerChart ; Last Updated: 12/23/2014 18:35 EDT ; Life Cycle Date: 12/23/2014 ; Life Cycle Status: Active ; Vocabulary: SNOMED CT Sleep apnea (SNOMED CT :357285703 ) Name of Problem: Sleep apnea ; Recorder: ARMANDO CASTRO RN; Confirmation: Confirmed ; Classification: Patient Stated ; Code: 100242353 ; Contributor System: [employer] ; Last Updated: 06/17/2017 10:09 EST ; Life Cycle Date: 06/17/2017 ; Life Cycle Status: Active ; Vocabulary: SNOMED CT Syncope (SNOMED CT :281969458 ) Name of Problem: Syncope ; Recorder: ARMANDO CASTRO RN; Confirmation: Confirmed ; Classification: Patient Stated ; Code: 776266186 ; Contributor System: [employer] ; Last Updated: 06/17/2017 10:08 EST ; Life Cycle Date: 06/17/2017 ; Life Cycle Status: Active ; Vocabulary: SNOMED CT Diagnoses(Active) Chest pain Date: 03/22/2019 ; Diagnosis Type: Reason For Visit ; Confirmation: Complaint of ; Clinical Dx: Chest pain ; Classification: Medical ; Clinical Service: Emergency medicine ; Code: PNED ; Probability: 0 ; Diagnosis Code: [id number] ED Height and Weight Height Source : Stated Height Entry Format : [place] Height, Feet : 5 ft(Converted to: 152 cm, 60 Inch) Height, Inches : 2 Inch(Converted to: 0 ft 2 Inch, 5.08 cm) Clinical Height : 157.48 cm Weight Source, ED : Critical estimated dosing weight Weight Entry Format : [place] Weight, Pounds : 183 lb Clinical Dosing Weight : 83.18 kg Body Surface Area (BSA) : 1.84 m2 Body Mass Index : 33.5 kg/m2 (HI) [place] Body Weight (IBW) : 49.73 kg Cornelia Baird RN - 03/22/2019 11:36 EDT documented in this encounter Plan of Treatment Not on file documented as of this encounter Visit Diagnoses Not on filedocumented in this encounter
--- OUTSIDE RECORDS SUMMARY | 2025-01-20 12:48 | XMS_ITS | Clinical Summary ---
Author Organization [facility] Address [address] [place] [address] Care Team Providers Care Photoradio Operator Name Role Phone Ramos Morales APRN Primary Care Provider [phone] Allergies Active Allergy Reactions Criticality Noted Date [...] by mouth every evening. Active HYDROcodone-ac etaminophen ([place]ai) 10-325 MG tablet Take 1 tablet (10 [...] nightly 30 g 4 Active nystatin (Mycostatin) 034900 UNIT/GM powder Apply twice a day to [...] by mouth every 6 (six) hours. Under [place] law, monthly prescriptions (30 days) can be [...] (06/26/2024): Added automatically from request for surgery [id number] S/P coronary artery stent placement 06/20/2014 Resolved Problems Problem Noted Date Diagnosed Date Resolved Date Cellulitis of foot 05/29/2024 4 Encounters Date Type Department Care Team Description 11/27/2024 Telephone [place] [facility] [address] [facility] 5th Floor [address] [place] [address] Scotty Truong MD from Last [...] any time in the past 12 m [facility], were you homeless or living in a prison (including now)? Patient unable to answer 08/29/2024 Utilities Answer Date Recorded In the past 12 months has th e [employer], gas, oil, or water company threatened to [...] 09/12/2024 12:16 PM EDT Plan of Treatment Health Maintenance Due Date Last Done Comments [facility]-Depression Screening 1962 [facility]-Medicare Annual Wellness (AWV) 1962 [facility]-Infant/Child/Adol SDOH Screenings 1962 Diabetes: Dental Exam 1972 [facility]-DTaP,Tdap,and Td Vaccines (1 - Tdap) 1981 CT Colonography 09/03/2007 Colonoscopy 09/03/2007 FIT-DNA 09/03/2007 FIT 09/03/2007 FOBT 09/03/2007 Sigmoidoscopy 09/03/2007 [facility]-Colorectal Cancer Screening 09/03/2007 [facility]-Breast Cancer Screening 2012 LTP-[id number]-18 Vaccine (3 - Pfizer risk series) 11/03/2020 [...] Ha, RN Medical Devices Implanted Type Area Musculoskeletal Physiotherapist Device Identifier Shelf Expiration Date Model / [...] Final Result [facility] [address] [place] [address] * (ABNORMAL) Hemoglobin A1c (08/27/2024 9:15 PM [...] Adults <6.0% Children and Adolescents <7.5% Source: [place] [employer]. Standards of medical care in diabetes,2017. Diabetes Care.2017:40 (suppl 1):S1-S135. HbA1c assay performed by an ion-exchange chromatography method that is certified traceable to the DCCT. us Roberto Ceja MD LAB BLOOD ORDERABLES Final R esult Performing Organization Address City/[facility] Co de Phone Number [facility] [address] [place] [address] * Hepatitis C Antibody - ED (05/26/2024 11:59 AM EST) Hepatitis C Antibody Negative Negative 05/26/2024 12:53 PM EST [facility] Blood Venous blood specimen / Unknown Venipuncture / Unknown 05/26/2024 11:59 AM EST 05/26/2024 12:11 PM EST us Justyna Suazo MD LAB BLOOD ORDERABLES Final Res ult Performing Organization Address [facility] de Phone Number [facility] [address] [place] [address] from Last 3 Months or Most Recently Relevant to Health Maintenance Additional Health Concerns Active Problems Noted Date Diagnosed Date Autogenerated Problem 09/11/2024 Infection Onset Date Last Indicated MRSA 08/27/2024 08/28/2024 Insurance [facility] MEDICARE Advance Directives * Full Code [...] Patient has decision-making capacity? Yes Care Teams Photoradio Operator Relationship Specialty Start Date End Date Ramos Morales APRN [address] [place] [address] PCP - General 06/25/24
--- OUTSIDE RECORDS SUMMARY | 2025-01-20 12:48 | XMS_ITS | Encounter Summary ---
Author Organization [employer] ([place], [place], [place], [place]) Address [address] [place] [address] Care Team Providers Care Librarian Special Library Name Role Phone Unavailable Primary Care Provider Unavailabl e Encounter Details Date Type Department Care Team (Late st Contact Info) Description 03/22/2019 Transcribed Document [facility] [place] [facility] [place] [address] ProviderJace MD [facility] [place] [address] Social History Tobacco Use Types [...] PM CDT Electronically signed by Mitra [facility] Conversion Associate Publisher Cerner at 10/06/2022 1:00 PM CDT documented in this encounter Plan of Treatment Not on file documented as of this encounter Visit Diagnoses Not on filedocumented in this encounter
--- OUTSIDE RECORDS SUMMARY | 2025-01-20 12:48 | XMS_ITS | Encounter Summary ---
Author Organization [employer] ([place], [place], [place], [place]) Address [address] [place] [address] Care Team Providers Care Medical Records Manager Name Role Phone Unavailable Primary Care Provider Unavailabl e Encounter Details Date Type Department Care Team (Late st Contact Info) Description 03/22/2019 Transcribed Document [facility] [place] Family Medicine [facility] [place] [address] ProviderJace MD [address] [place] [address] Social History Tobacco Use Types Packs/Day [...] Communication Barrier : None Primary Language : Maltese Any Spiritual/Cultural Needs or Requests : No [...] (Comment: 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
--- OUTSIDE RECORDS SUMMARY | 2025-01-20 12:48 | XMS_ITS | Encounter Summary ---
Author Organization [employer] ([place], [place], [place], [place]) Address [address] [place] [address] Care Team Providers Care Team Coordinator Name Role Phone Unavailable Primary Care Provider Unavailabl e Encounter Details Date Type Department Care Team (Late st Contact Info) Description 03/22/2019 Transcribed Document [facility] [place] Medicine [facility] [place] [address] ProviderJace [place] [facility] [place] [address] Social History Tobacco Use Types [...] Historical ProviderMD - 03/22/2019 4:43 PM CDT [facility] [place] [address] Visit Date/Time: 03/22/2019 16:43:59 MICHELINE HUBER The above patient was seen in the hospital today and needs to be excused from work/school until Return to Work/School Date:03/24/2019 Electronically signed by Mitra [facility] Conversion Manager Community Relations Cerner at 10/06/2022 1:03 PM CDT documented in this encounter Plan of Treatment Not on file documented as of this encounter Visit Diagnoses Not on filedocumented in this encounter
--- OUTSIDE RECORDS SUMMARY | 2025-01-20 12:48 | XMS_ITS | Encounter Summary ---
Author Organization [employer] ([place], [place], [place], [place]) Address [address] [place] [address] Care Team Providers Care Food Adviser Name Role Phone Unavailable Primary Care Provider Unavailabl e Encounter Details Date Type Department Care Team (Late st Contact Info) Description 03/23/2019 Transcribed Document [facility] [place] Family Medicine [facility] [place] [address] ProviderJace MD [facility] [place] [address] Social History Tobacco Use Types [...] further action required X1 - no acute Electronically signed by Janie Manriquez Conversion Shredding Floor Equipment Operator Cerner at 10/06/2022 1:10 PM CDT documented in this encounter Plan of Treatment Not on file documented as of this encounter Visit Diagnoses Not on filedocumented in this encounter
--- OUTSIDE RECORDS SUMMARY | 2025-01-20 12:49 | XMS_ITS | Encounter Summary ---
Author Organization [facility] Address [address] [place] [address] Care Team Providers Care Guitar Maker Name Role Phone Carmen Ramos Sterling APRN Primary Care Provider [phone] Encounter Details Date Type Department Care Team (Late st Contact Info) Description 08/01/2024 Orders Only External Location [address] [place] [address] Provider, External Social History Tobacco Use Types [...] any time in the past 12 m [facility], were you homeless or living in a correction (including now)? No 05/28/2024 Utilities Answer Date [...] as of this encounter Plan of Treatment Not on file documented as of this encounter Procedures Procedure Name Priority Date/Time Associated Diagnosis Comments CT OUTSIDE IMAGES 08/01/2024 11:27 PM EST documented in this encounter Results * CT OUTSIDE IMAGES (08/01/2024 11:27 PM EST) Anatomical Region Laterality Modality Computed Tomogra phy 08/01/2024 11:2 7 PM EST External Provider IMG CT PROCEDURES Final Result documented in this encounter Visit Diagnoses Not on filedocumented in this encounter Additional Health Concerns Infection Onset Date Last Indicated Resolved Time MRSA 08/27/2024 08/28/2024 Assessment Noted Time A Body Mass Index follow-up plan has been documented for the patient 06/12/2024 3:07 PM EST documented as of this encounter Care Teams Guitar Maker Relationship Specialty Start Date End Date Ramos Morales APRN [address] [place] [address] PCP - General 06/25/24 documented as of this encounter
--- OUTSIDE RECORDS SUMMARY | 2025-01-20 12:49 | XMS_ITS | Encounter Summary ---
Author Organization [facility] Address [address] [place] [address] Care Team Providers Care Computer Systems Designer Name Role Phone Carmen Ramos Sterling APRN Primary Care Provider [phone] Encounter Details Date Type Department Care Team (Late st Contact Info) Description 11/27/2024 Telephone [place] [facility] [address] [facility] 5th Floor [address], [address] [place] [address] Scotty Truong MD [address] [facility] [address] [place] [address] Social History Tobacco Use Types [...] any time in the [facility] homeless or living in a fdc (including now)? Patient unable to answer 08/29/2024 [...] PM EDT Spoke with pt to reschedule [facility] discharge vascular consult. Pt state she is in rehab for her legs due to a recent fall. We scheduled for the next opening at the end of December. Pt is agreeable to times/date/location. I confirmed her mailing address and sent reminders. documented in this encounter Plan of Treatment Not on file documented as of this encounter Goals Goal [...] documented as of this encounter Care Teams Computer Systems Designer Relationship Specialty Start Date End Date Ramos Morales APRN [address] [place] [address] PCP - General 06/25/24 documented as of this encounter
--- OUTSIDE RECORDS SUMMARY | 2025-01-20 12:49 | XMS_ITS | Encounter Summary ---
Author Organization [facility] Address [address] [place] [address] Care Team Providers Care Multiple Needle Stitcher Name Role Phone Ramos Morales APRN Primary Care Provider [phone] Reason for Visit * Auth/Cert (Routine) Specialty Diagnoses / Procedures Referred By Contac t Referred To Contact Diagnoses Pyogenic arthritis of right knee joint, due to unspecified organism (CMS/HCC) Septic Knee Joint Conner Major MD [address] [place] [address] Phone: tel: fax: [facility] Inpatient [address] [place] [address] Referral ID Status Reason Start Date Expiration Date Visits Re quested Visits Authorized [id number] 1 1 Encounter Details Date Type Department Care Team (Late st Contact Info) Description 08/27/2024 Lab Requisition [facility] [address] [place] [address] Sina Villalobos, HAILE [address] [facility] [address] [place] [address] Encounter for general adult medical examination without [...] any time in the past 12 m [facility], were you homeless or living in a fci (including now)? Patient unable to answer 08/29/2024 Utilities Answer Date Recorded In the past 12 months has th e [employer], gas, oil, or water [employer] threatened to shut off services in your [...] Culture Light Growth 08/29/2024 12:22 PM EDT [facility] Culture Methicillin-Resista nt Staphylococcus aureus(AA) YAMIL 08/29/2024 12:22 PM EDT [facility] Comment: The organism value for this result has been updated. These results have been appended to the previously preliminary verified report. Edited result: Previously reported as Staphylococcus aureus on 08/29/2024 at 0730 EDT. Staphylococcus aureus has been updated to reportable. Gram Stain Result Numerous Polymorphonuclear leukocytes(A) 08/29/2024 12:22 PM EDT [facility] Gram Stain Result Rare Gram positive cocci in pairs(A) 08/29/2024 12:22 PM EDT [facility] Joint Fluid Synovial fluid specimen / [...] Staphylococcus aureus Vancomycin YAMIL 1 ug/ml: Susceptible us Sina BE LAB MICROBIOLOGY - GENERAL ORDERABLES Final Result [facility] [address] [place] [address] documented in this encounter Visit Diagnoses Diagnosis Encounter for general adult medical examination without abnormal findings documented in this encounter Additional Health Concerns Infection Onset Date Last Indicated Resolved Time MRSA 08/27/2024 08/28/2024 Assessment Noted Time A Body Mass Index follow-up plan has been documented for the patient 09/26/2024 11:03 AM EDT documented as of this encounter Care Teams Multiple Needle Stitcher Relationship Specialty Start Date End Date Ramos Morales APRN [address] [place] [address] PCP - General 06/25/24 documented as of this encounter
--- OUTSIDE RECORDS SUMMARY | 2025-01-20 12:49 | XMS_ITS | Referral Summary ---
Author Organization [employer] ([place], [place], [place], [place]) Address [address] [place] [address] Care Team Providers Care Stock Shaper Name Role Phone Unavailable Primary Care Provider [...]
--- OUTSIDE RECORDS SUMMARY | 2025-01-20 12:49 | XMS_ITS | Encounter Summary ---
Author Organization [facility] Address [address] [place] [address] Care Team Providers Care Rn Provider Relations Name Role Phone Ramos Morales APRN Primary Care Provider [phone] Reason for Visit * Auth/Cert (Routine) Specialty Diagnoses / Procedures Referred By Contac t Referred To Contact Diagnoses Pyogenic arthritis of right knee joint, due to unspecified organism (CMS/HCC) Septic Knee Joint Conner Major MD [address] [place] [address] Phone: tel: fax: [facility] Inpatient [address] [place] [address] Referral ID Status Reason Start Date Expiration Date Visits Re quested Visits Authorized [id number] 1 1 Encounter Details Date Type Department Care Team (Late st Contact Info) Description 08/27/2024 Lab Requisition [facility] [address] [place] [address] Sina Villalobos, HAILE [address] [facility] [address] [place] [address] Encounter for general adult medical examination without [...] any time in the past 12 m [facility], were you homeless or living in a penitentiary (including now)? Patient unable to answer 08/29/2024 Utilities Answer Date Recorded In the past 12 months has th e [employer], gas, oil, or water [employer] threatened to shut off services in your [...] Month) No 08/30/2024 8:00 PM EDT Chidi Morfni RN 2. Non-Specific Active Suici diane Thoughts [...] LAB HEMATOLOGY METHOD 08/28/2024 12:50 PM EDT [facility] Specimen Source, Body Fluid LAB HEMATOLOGY METHOD 08/28/2024 12:50 PM EDT [facility] Clinical Diagnosis, Body Fluid Septic arthritis LAB HEMATOLOGY METHOD 08/28/2024 12:50 PM EDT [facility] Interpretation , Body Fluid Degenerated acute inflammatory cells, please correlate with microbiology studies. A resident was involved in the service. I attest I examined the relevant preparations for the specimens and confirmed the diagnosis or interpretation. 08/28/2024 12:50 PM EDT [facility] Pathologist Signature, Body Fluid 08/28/2024 12:50 PM EDT [facility] Comment:Reviewed by: Larisa joyce MD LAB CP ASR DISCLAIMER Yes 08/28/2024 12:50 PM EDT [facility] Joint Fluid 08/27/2024 1:05 PM EDT 08/27/2024 3:14 PM EDT us Sina BE LAB BODY FLUIDS AND STOOLS ORDERABLES Final Result Performing Organization Address City/[facility]/ZIP Co de Phone Number [facility] [address] [place] [address] * Synovial fluid, crystal (08/27/2024 1:05 PM EDT) Crystals, Joint Fluid No Crystals Seen No Crystals Present 08/27/2024 7:36 PM EDT [facility] Joint Fluid 08/27/2024 1:05 PM EDT 08/27/2024 3:14 PM EDT us Sina BE LAB BODY FLUIDS AND STOOLS ORDERABLES Final Result Performing Organization Address [facility] Phone Number [facility] [address] [place] [address] * (ABNORMAL) Body Fluid Cell Count w/ Diff (08/27/2024 1:05 PM EDT) Color, Body fluid Yellow LAB HEMATOLOGY METHOD 08/27/2024 7:45 PM EDT [facility] Appearance, Body fluid Cloudy(A) LAB HEMATOLOGY METHOD 08/27/2024 7:45 PM EDT [facility] Volume, Body fluid 1.0 cc LAB HEMATOLOGY METHOD 08/27/2024 7:45 PM EDT [facility] Fluid Container Specimen received in EDTA tube LAB HEMATOLOGY METHOD 08/27/2024 7:45 PM EDT [facility] Red Blood Cell Count, Body fluid 30,000 uL LAB HEMATOLOGY METHOD 08/27/2024 7:45 PM EDT [facility] Total Nucleated Cell Count, Body fluid >100,000 uL LAB HEMATOLOGY METHOD 08/27/2024 7:45 PM EDT [facility] Neutrophils %, Body fluid 95 % LAB HEMATOLOGY METHOD 08/27/2024 7:45 PM EDT [facility] Lymphocytes %, Body fluid 1 % LAB HEMATOLOGY METHOD 08/27/2024 7:45 PM EDT [facility] Monocytes/Macr ophages %, Body fluid 4 % LAB HEMATOLOGY METHOD 08/27/2024 7:45 PM EDT [facility] Eosinophils %, Body fluid 0 % LAB HEMATOLOGY METHOD 08/27/2024 7:45 PM EDT [facility] Lining/Mes[place] lial Cells %, Body fluid 0 % LAB HEMATOLOGY METHOD 08/27/2024 7:45 PM EDT [facility] Neutrophils Absolute (PMN), Body fluid >9,500 uL LAB HEMATOLOGY METHOD 08/27/2024 7:45 PM EDT [facility] Lymphocytes Absolute, Body fluid >100 uL LAB HEMATOLOGY METHOD 08/27/2024 7:45 PM EDT [facility] Monocytes/Macr ophages Absolute, Body fluid >400 uL LAB HEMATOLOGY METHOD 08/27/2024 7:45 PM EDT [facility] Eosinophils Absolute, Body fluid 0 uL LAB HEMATOLOGY METHOD 08/27/2024 7:45 PM EDT [facility] Basophils Absolute, Body fluid 0 uL LAB HEMATOLOGY METHOD 08/27/2024 7:45 PM EDT [facility] Lining/Mesothe lial Cells Absolute, Body fluid 0 uL LAB HEMATOLOGY METHOD 08/27/2024 7:45 PM EDT [facility] Comment, Body fluid Differential and/or cell count may be inaccurate due to cellular degeneration. LAB HEMATOLOGY METHOD 08/27/2024 7:45 PM EDT [facility] Basophils %, Body fluid 0 % LAB HEMATOLOGY METHOD 08/27/2024 7:45 PM EDT [facility] Joint Fluid 08/27/2024 1:05 PM EDT 08/27/2024 3:14 PM EDT us Sina BE LAB BODY FLUIDS AN D STOOLS ORDERABLES NO SPECIMEN TYPE/SOURCE Final Result [facility] [address] [place] [address] documented in this encounter Visit Diagnoses Diagnosis Encounter for general adult medical examination without abnormal findings documented in this encounter Additional Health Concerns Infection Onset Date Last Indicated Resolved Time MRSA 08/27/2024 08/28/2024 Assessment Noted Time A Body Mass Index follow-up plan has been documented for the patient 09/26/2024 11:03 AM EDT documented as of this encounter Care Teams Rn Provider Relations Relationship Specialty Start Date End Date Ramos Morales APRN [address] [place] [address] PCP - General 06/25/24 documented as of this encounter
--- OUTSIDE RECORDS SUMMARY | 2025-01-20 12:49 | XMS_ITS | Clinical Summary ---
Author Organization [facility] Address [address] [place] [address] Care Team Providers Care Director Operating Room Name Role Phone Óscar Beckham MD Primary Care Provider [phone] Allergies Active Allergy Reactions Criticality Noted Date Comments Canagliflozin Myalgia Low 10/15/2019 Medications magnesium oxide (MAGOX) 400 (241.3 Mg) MG tablet tablet Take 400 mg by mouth Daily. Active vitamin D (ERGOCALCIFEROL ) 1.25 MG (42158 UT) capsule capsule Take 1 capsule by [...] (10/15/2019): Added automatically from request for surgery [id number] S/P coronary artery stent placement 06/20/2014 Family [...] Industry Job Start Date Job End Date [employer] work Not on file Not on file [...] Discontinued 09/19/2024 Medical Devices Implanted Type Area Endoscopy Specialty Technician Device Identifier Shelf Expiration Date Model / [...] - 5.60 % 04/16/2021 2:54 PM EDT [facility] Blood Venipuncture / Unknown 04/16/2021 2:08 PM EDT 04/16/2021 2:26 PM EDT Narrative [facility] - 04/16/2021 2:54 PM EDT Hemoglobin A1C Ranges: Increased Risk for Diabetes 5.7% to 6.4% Diabetes >= 6.5% Diabetic Goal < 7.0% us Claudio BE LAB BLOOD ORDERABLES Final Resu lt [facility]
[address] [place] [address], from Last 3 Months or Most Recently Relevant to Health Maintenance Insurance [place] [employer] MEDIC[place]VANTAGE Advance Directives * CPR (Attempt to Resuscitate) (Latest Code Status on File) Date Activated Date Inactivated Comments 10/17/2019 11:30 AM 10/18/2019 1:04 PM Question Answer Comments Code Status (Patient has no pulse and is not breathing): CPR (Attempt to Resuscitate) Medical Interventions (Patie nt has pulse or is breathing): Full Care Teams Director Operating Room Relationship Specialty Start Date End Date Óscar Beckham MD [facility] [address] ATTN: [place] [address] PCP - General Emergency Medicine 04/16/21
[2025-01-20 12:56] LABS: Hematocrit 37.5 % (37.0-47.0); Hemoglobin 12.6 g/dL (12.2-16.2); Immature Granulocytes % 0.5 %; Mean Corpuscular HGB Conc 33.6 g/dL (31.8-35.4); Mean Corpuscular Hemoglobin 29.6 pg (27.0-31.2); Mean Corpuscular Volume 88.0 fl (81-99); Nucleated Red Blood Cells % 0 %; Platelet Count 298 K/mm3 (142-424); Red Blood Count 4.26 M/mm3 (4.20-5.40); Red Cell Distribution Width-SD 45.2 fL; White Blood Count 7.6 K/mm3 (4.8-10.8)
[2025-01-20 13:03] LABS: Alanine Aminotransferase 25 U/L (12-78); Albumin Level 4.6 g/dl (3.5-5.0); Albumin/Globulin Ratio 1.2 (1.1-1.8); Alkaline Phosphatase 137 U/L (38-126); Anion Gap 15.4 mEq/L (5-15); Aspartate Amino Transferase 34 U/L (14-36); Bilirubin,Total 0.6 mg/dl (0.2-1.3); Blood Urea Nitrogen 38 mg/dl (7-17); Calcium 10.6 mg/dl (8.4-10.2); Carbon Dioxide 28 mmol/L (22.0-30.0); Chloride 98 mmol/L (98-107); Creatinine Clearance Estimated 60 mL/min (50-200); Creatinine,Serum 1.00 mg/dl (0.52-1.04); Estimated Glomerular Filt Rate 56 ml/min (>60); GFR (African American) 68 ML/MIN (>60); Globulin 4.0 g/dL (1.3-3.2); Glucose 196 mg/dl (74-100); Lipase 71 U/L (23-300); Potassium 4.4 mmoL/L (3.5-5.1); Sodium 137 mmol/L (136-145); Total Protein,Serum 8.6 g/dl (6.3-8.2)
[2025-01-20 13:04] LABS: Activated Partial Thrombo Time 23.7 seconds (22.8-30.6); INR 1.09 (0.9-1.1); Prothrombin Time 12.0 seconds (10.1-12.5)
[2025-01-20 13:12] LABS: NT Pro Brain Natriuretic Pep. 3240 pg/mL (0-125)
[2025-01-20 13:15] LABS: Troponin I 0.02 ng/ml (0.00-0.034)
[2025-01-20] MEDS: IOPAMIDOL-370 (76%);100ML BOTTLE 75 ML IV (13:23)
[2025-01-20] MEDS: SODIUM CHLORIDE 0.9% 10ML SYR (RAD ONLY) 10 ML IV (13:23)
[2025-01-20 14:10] LABS: Lactate Venous 1.2 mmol/L (0.4-2.0); VBG HCO3 29.5 mmol/L (23-30); VBG PCO2 47.0 mmol/L (35-51); VBG PH 7.41 mmol/L (7.31-7.41); VBG PO2 36.2 mmol/L (28-40)
[2025-01-20 14:43] LABS: Microscopic, Urine URINE MICROSCOPIC (MICROSCOPIC)
[2025-01-20 14:52] LABS: Bilirubin,Urine Negative (Negative); Color,Urine YELLOW (Yellow); Glucose,Urine (UA) 3+ (Negative); Ketones,Urine Negative (Negative); Leukocyte Esterase,Urine Negative (Negative); PH,Urine 8.0 (5.0-8.5); Protein,Urine 1+ (Negative); Specific Gravity, Urine 1.020 (1.005-1.030); Urobilinogen,Urine 0.2 EU/dl (0.2)
[2025-01-20 15:07] LABS: Bacteria,Urine Trace /lpf
[2025-01-20] MEDS: HYDROMORPHONE 2MG/ML SYRINGE 0.5 MG IV (15:33)
[2025-01-20 15:43] LABS: Troponin I 0.04 ng/ml (0.00-0.034)
--- NOTE | 2025-01-20 16:18 | ECG_ITS ---
APPROVED REPORT Exam: Resting ECG HR:82 bpm ECG Measurements Heart Rate 82 AXES ID 178 P 67 QRSd 154 QRS 130 QT 421 T 60 QTc 459 Conclusion SINUS RHYTHM WITH FREQUENT VENTRICULAR PREMATURE COMPLEXES RIGHT BUNDLE BRANCH BLOCK [120+ ms QRS DURATION, UPRIGHT V1, 40+ ms S IN I/aVL/V4/V5/V6] LEFT POSTERIOR FASCICULAR BLOCK [QRS AXIS > 109, INFERIOR Q] ABNORMAL ECG UNCONFIRMED REPORT Electronically signed by : VICENTA MACIAS, 01/22/2025 04:19:07
[2025-01-20 16:34] LABS: Magnesium 2.3 mg/dl (1.6-2.3)
--- NOTE | 2025-01-20 16:51 | PC.NURSE ---
house notified of bed admission
--- NOTE | 2025-01-20 17:06 | PC.NURSE ---
Called report to AGNIESZKA Jorgensen.
--- NOTE | 2025-01-20 17:15 | PC.NURSE ---
patient arrived to [facility] room 205 @[id number]
--- NOTE | 2025-01-20 17:47 | EXP.HP ---
History of Present Illness *Admission Date: 01/20/25 *Reason for visit:: Chest pain *History of present illness: Patient is a 64-year-old female with past medical history of hypertension hyperlipidemia CHF diabetes mellitus CAD who presents to the hospital due to chest tightness, abdominal pain nausea vomiting. According to the patient she has been having vomiting for past 3 days. Patient is also concerned about right upper quadrant abdominal pain, she is concerned she might have gallbladder inflammation. Patient otherwise denying fevers chills diarrhea constipation dysuria. [facility] Disclaimer: The information contained in this section may have been updated after the patient was seen, as this information can be updated by other users. Medical History Osteomyelitis Tobacco dependence syndrome Hypertension Peripheral arterial disease CAD (coronary atherosclerotic disease) T2DM (type 2 diabetes mellitus) Decreased pedal pulses Ulcer of second toe of right foot Pulmonary edema Abnormal ankle brachial index (ELLIE) Acute on chronic systolic heart failure Closed left ankle fracture Elevated left ventricular end-diastolic pressure (LVEDP) Edema of both lower extremities Syncope Abnormal result of cardiovascular function study Typical angina Arthritis GERD (gastroesophageal reflux disease) Depression COPD (chronic obstructive pulmonary disease) Arrhythmia Hyperlipidemia Surgical History History of cancer surgery H/O total hysterectomy Hx of colonoscopy Family History Other Cancer Coronary artery disease Diabetes Heart attack Hypertension Stroke Social History (Updated 01/20/25 @ 17:47 by Joslyn Zaldivar RN) Smoking Status: Current every day smoker tobacco type: cigarettes alcohol intake: never substance use type: denies use current occupational status: unemployed and disabled Travel in the last 8 weeks?: None household members: spouse housing: house Have you lived/traveled outside US in past 30 days?: No Contact w/someone who lives/traveled outside US past 30 days?: No Exposure to someone with infectious disease in past 14 days?: No Do you have a fever (greater than 100.4 F or 38 C)?: No Have you tested positive for COVID-19?: No Exposed to someone with COVID-19 in past 14 days?: No Do you have a sore throat?: No Do you have a cough?: No Do you have any weakness?: No Do you have any diarrhea?: Yes Are you experiencing any unusual bleeding?: No Do you have any muscle aches/pain?: No Do you have any abdominal pain?: Yes Are you experiencing loss of taste or smell?: No Other Medical History Have you received the Flu Vaccine for this season: Yes Have you received the Pneumonia Vaccine: Yes Review of Systems Review of Systems Review of systems:: pertinent systems reviewed and negative unless documented below Meds Home Medications and Allergies Home Medications ?Medication ?Instructions ?Recorded ?Confirmed ?Type bupropion HCl 150 mg tablet,12 hr 150 mg PO BID 04/14/24 01/20/25 History sustained-release spironolactone 25 mg tablet 25 mg PO DAILY 04/15/24 01/20/25 History sennosides 8.6 mg tablet (Senna 17.2 mg (2 x 8.6 mg) PO DAILY 30 04/24/24 01/20/25 Rx Laxative) days #60 tabs polyethylene glycol 3350 17 17 g PO DAILY PRN Constipation 05/21/24 01/20/25 History gram/dose oral powder (Miralax) citalopram 20 mg tablet 20 mg PO DAILY #90 tabs 08/30/24 01/20/25 Rx clopidogrel 75 mg tablet 75 mg PO DAILY #30 tabs 10/09/24 01/20/25 Rx lisinopril 40 mg tablet 40 mg PO HS #30 tabs 10/09/24 01/20/25 Rx pantoprazole 40 mg tablet,delayed 40 mg PO HS #90 tabs 10/09/24 01/20/25 Rx release aspirin 81 mg tablet,delayed 81 mg PO DAILY 10/20/24 01/20/25 History release (Darshana Low Dose Aspirin) ferrous sulfate 325 mg (65 mg 325 mg PO DAILY 10/20/24 01/20/25 History iron) tablet (Feosol) levothyroxine 200 mcg tablet 200 mcg PO DAILYDM 10/20/24 01/20/25 History folic acid 1 mg tablet 1 mg PO DAILY 30 days #30 tabs 10/26/24 01/20/25 Rx carvedilol 25 mg tablet 12.5 mg (1/2 x 25 mg) PO BID #60 12/20/24 01/20/25 Rx tabs furosemide 80 mg tablet 80 mg PO DAILY 30 days #90 tabs 12/20/24 01/20/25 Rx ondansetron 4 mg disintegrating 4 mg PO Q8H PRN nausea and 12/31/24 01/20/25 Rx tablet vomiting 4 days #12 tabs hydrocodone 5 mg-acetaminophen 325 1 tab PO Q8H PRN Severe Pain 01/01/25 01/20/25 Rx mg tablet (7-10) 30 days #90 tabs Diabetic Shoes (DME) #1 ea 01/09/25 01/20/25 Rx atorvastatin 40 mg tablet 40 mg PO HS #90 tabs 01/10/25 01/20/25 Rx allopurinol 100 mg tablet 100 mg PO DAILY 01/20/25 01/20/25 History dapagliflozin propanediol 10 mg 10 mg PO DAILY 01/20/25 01/20/25 History tablet (Farxiga) gabapentin 300 mg capsule 300 mg PO TID 01/20/25 01/20/25 History New Prescriptions to Start Prescriptions: Allergies Allergy/AdvReac Type Severity Reaction Status Date / Time canagliflozin (From [facility]) Allergy Severe kidney Verified 01/16/25 09:08 issues Exam Data for Last 24 hours Vital signs and Labs for Last 24 Hours: Temp Pulse Resp BP Pulse Ox O2 Del Method 97.8 F 81 15 123/75 100 Room Air 01/20/25 17:08 01/20/25 17:08 01/20/25 17:08 01/20/25 17:08 01/20/25 15:00 01/20/25 17:08 Laboratory Results - last 24 hr 01/20/25 12:32: WBC 7.6, RBC 4.26, Hgb 12.6, Hct 37.5, MCV 88.0, MCH 29.6, MCHC 33.6, RDW 14.0, Plt Count 298, MPV 8.7, Neut % (Auto) 61.2, Lymph % (Auto) 28.6, [place] % (Auto) 7.8, Eos % (Auto) 1.4, Baso % (Auto) 0.5, Neut # (Auto) 4.6, Lymph # (Auto) 2.2, [place] # (Auto) 0.6, Eos # (Auto) 0.1, Baso # (Auto) 0.0, PT 12.0, INR 1.09, APTT 23.7, Sodium 137, Potassium 4.4, Chloride 98, Carbon Dioxide 28, Anion Gap 15.4 H, BUN 38 H, Creatinine 1.00, Estimated Creat Clear 60, Estimated GFR 56 L, Est GFR ( Amer) 68, Glucose 196 H, Calcium 10.6 H, Magnesium 2.3, Total Bilirubin 0.6, AST 34, ALT 25, Alkaline Phosphatase 137 H, Troponin I 0.02, NT-Pro-B Natriuret Pep 3240 H, Total Protein 8.6 H, Albumin 4.6, Globulin 4.0 H, Albumin/Globulin Ratio 1.2, Lipase 71 01/20/25 13:57: VBG pH 7.41, VBG pCO2 47.0, VBG pO2 36.2, VBG HCO3 29.5, VBG Total CO2 31.0 H, VBG O2 Saturation 66.8, VBG Base Excess 4.2 H, VBG Lactic Acid 1.2 01/20/25 14:04: Urine Color Yellow, Urine Appearance Clear, Urine pH 8.0, Ur Specific [place] 1.020, Urine Protein 1+ A, Urine Glucose (UA) 3+, Urine Ketones Negative, Urine Blood Trace-i, Urine Nitrate Negative, Urine Bilirubin Negative, Urine Urobilinogen 0.2, Ur Leukocyte Esterase Negative, Urine RBC 3-5, Urine WBC None, Ur Squamous Epith Cells 5-10, Urine Bacteria Trace 01/20/25 15:15: Troponin I 0.04 H I & O for Last 24 hours: Intake & Output 01/17/25 01/18/25 01/19/25 01/20/25 23:59 23:59 23:59 23:59 Weight 64.864 kg Constitutional Constitutional: no acute distress *Routine HEENT Exam Head: Present normocephalic Eye: Present EOMI and PERRL ENT: Present mucous membranes moist *Routine Neck Exam Neck: Present supple; Absent lymphadenopathy *Routine Respiratory Exam Respiratory: Present CTA bilaterally *Routine Cardiovascular Exam Cardiovascular: Present RRR *Routine Abdominal Exam Abdominal: Present soft and normoactive bowel sounds; Absent tenderness *Routine Rectal Exam Rectal:: deferred *Routine Genitalia Exam Genitalia:: deferred *Routine Extremities Exam Extremities: Absent cyanosis, clubbing or edema *Routine Skin Exam Skin: Present warm; Absent rash *Routine Neurological Exam Neurological: Present alert and oriented X3 Assessment and Plan *Assessment and plan (1) Chest pain: Status: Acute Category: Medical Code(s): R07.9 - Chest pain, unspecified (2) Nausea & vomiting: Status: Acute Category: Medical Code(s): R11.2 - Nausea with vomiting, unspecified (3) Diabetes mellitus: Status: Acute Qualifiers: Diabetes mellitus type: type 2 Category: Medical Code(s): E11.9 - Type 2 diabetes mellitus without complications (4) Chronic systolic heart failure: Status: Acute Category: Medical Code(s): I50.22 - Chronic systolic (congestive) heart failure Plan Patient is a 64-year-old female with past medical history of hypertension hyperlipidemia CHF diabetes mellitus CAD who presents to the hospital due to chest tightness, abdominal pain nausea vomiting. According to the patient she has been having vomiting for past 3 days. Patient is also concerned about right upper quadrant abdominal pain, she is concerned she might have gallbladder inflammation. Patient otherwise denying fevers chills diarrhea constipation dysuria. Assessment and plan Chest pain, elevated troponin likely NSTEMI Start aspirin, statin Patient is anticoagulated on Xarelto at home Continue to monitor troponin Continue to monitor on cardiac telemetry Consult cardiology Order echocardiogram Resume home Xarelto Right upper quadrant abdominal pain, unclear etiology Gallbladder ultrasound performed in the emergency department did show gallstones CT abdomen pelvis performed in the ED-did show gallstones, dilated common bile duct LFTs including bilirubin is normal, monitor consult general surgery Chronic medical conditions Diabetes mellitus Chronic systolic heart failure Diabetic foot infection Hypertension CAD Tobacco use Order insulin sliding scale Resume home medications Consult wound care DVT prophylaxis-on Xarelto
[2025-01-20 18:53] LABS: Troponin I 0.04 ng/ml (0.00-0.034)
[2025-01-20] MEDS: CARVEDILOL 25MG TABLET 12.5 MG PO (20:42)
[2025-01-20] MEDS: PANTOPRAZOLE 40MG TABLET 40 MG PO (20:42)
[2025-01-20] MEDS: ATORVASTATIN 40MG TABLET 40 MG PO (20:42)
[2025-01-20] MEDS: GABAPENTIN 300MG CAPSULE 300 MG PO (20:42)
[2025-01-20 21:07] LABS: POC Glucose,Bedside 111 (70-110)
[2025-01-20 21:12] LABS: Troponin I 0.03 ng/ml (0.00-0.034)
[2025-01-20] MEDS: HYDROCODONE/APAP 5/325 MG TABLET 1 TAB PO (21:40)
[2025-01-21] VITALS: BP 98/55; PULSE 68; PULSE 70; RESP 18; TEMP 36.4; O2SAT 96
[2025-01-21 03:34] LABS: Troponin I 0.04 ng/ml (0.00-0.034)
[2025-01-21 04:00] VITALS: BP 93/60; PULSE 70; RESP 18; TEMP 36.6; O2SAT 98; BMI 25.9
[2025-01-21] MEDS: ONDANSETRON 4MG/2ML VIAL 4 MG IV ×3 (04:15→18:25)
--- NOTE | 2025-01-21 04:40 | PC.NURSE ---
Addendum entered by Teresa Rodriguez RN 01/21/25 05:05: Patient has not had any complaints of worsening chest pain, tightness, or pressure during this shift. Original Note: Patient is pleasantly alert and oriented x4. She was observed to be resting in bed with eyes closed, respirations even and unlabored on room air, and no apparent distress throughout the majority of the night. She has had complaints of nausea a couple times during this shift of which Zofran was administered per MAR for relief. Patient did have one emesis episode this morning (around 04:00). Wesley was also given earlier this shift for reports of abdominal/leg and feet pain. Scheduled medications were administered as appropriately per MAR as well. She has remained NPO since midnight; prior to midnight, she was given orange sherbet ice cream and Diet Starry soda. She tolerated consumption of these items fairly. A female purewick remains in place for urination needs. Dressing for open ulceration located on the bottom of her left foot remains clean, dry, and intact; previous Coban wrap was changed during this shift. Auscultation of heart, bowels, and lungs within normal findings. Patient gets up with assistance during ambulation/transfers. Soft blood pressures noted. ACHS glucose checks performed. Troponin lab trends taken. Remains on telemetry. At this time, the patient is resting in bed without any further complaints. No new needs thus far. Bed alarm on. Call light within reach.
[2025-01-21 06:11] LABS: Hematocrit 29.7 % (37.0-47.0); Immature Granulocytes % 0.6 %; Mean Corpuscular HGB Conc 32.7 g/dL (31.8-35.4); Mean Corpuscular Hemoglobin 29.5 pg (27.0-31.2); Mean Corpuscular Volume 90.3 fl (81-99); Nucleated Red Blood Cells % 0 %; Platelet Count 211 K/mm3 (142-424); Red Blood Count 3.29 M/mm3 (4.20-5.40); Red Cell Distribution Width-SD 47.4 fL; White Blood Count 6.8 K/mm3 (4.8-10.8)
[2025-01-21 06:16] LABS: Hemoglobin 9.9 g/dL (12.2-16.2)
[2025-01-21 06:22] LABS: Chloride 99 mmol/L (98-107)
[2025-01-21 06:23] LABS: Albumin Level 3.1 g/dl (3.5-5.0); Potassium 3.4 mmoL/L (3.5-5.1); Sodium 132 mmol/L (136-145)
[2025-01-21 06:24] LABS: POC Glucose,Bedside 137 (70-110)
[2025-01-21 06:25] LABS: Alanine Aminotransferase 17 U/L (12-78); Anion Gap 9.4 mEq/L (5-15); Aspartate Amino Transferase 26 U/L (14-36); Blood Urea Nitrogen 35 mg/dl (7-17); Carbon Dioxide 27 mmol/L (22.0-30.0); Creatinine Clearance Estimated 49 mL/min (50-200); Creatinine,Serum 1.20 mg/dl (0.52-1.04); Estimated Glomerular Filt Rate 46 ml/min (>60); GFR (African American) 55 ML/MIN (>60)
[2025-01-21 06:26] LABS: Albumin/Globulin Ratio 0.8 (1.1-1.8); Alkaline Phosphatase 99 U/L (38-126); Bilirubin,Total 0.3 mg/dl (0.2-1.3); Calcium 9.4 mg/dl (8.4-10.2); Globulin 3.7 g/dL (1.3-3.2); Glucose 128 mg/dl (74-100); Total Protein,Serum 6.8 g/dl (6.3-8.2)
[2025-01-21 08:00] VITALS: BP 141/79; PULSE 70; PULSE 74; RESP 16; TEMP 36.6; O2SAT 100
--- NOTE | 2025-01-21 08:21 | US_ITS ---
FINAL REPORT CLINICAL HISTORY: Gallstones COMPARISON: None FINDINGS: Sonographic images of the right upper quadrant were obtained. The liver has mildly coarsened echotexture. Gallstones are seen in the gallbladder. The common duct is dilated at 1.3 cm. Can not exclude distal choledocholithiasis. Limited images of the right kidney are unremarkable. IMPRESSION: Gallstones and dilated common duct. Cannot exclude distal choledocholithiasis. Reviewed, Interpreted and Dictated by Zeb Shah MD Transcribed by Justyna Pabon Authenticated and [facility]
--- NOTE | 2025-01-21 08:56 | EXP.SURG.CON ---
History of Present Illness *Admission Date: 01/20/25 *Reason for visit:: Right upper quadrant pain, gallstones *History of present illness: Patient is a 64-year-old female from [facility] with history of diabetes with previous osteomyelitis and toe amputation, chronic systolic heart failure, encephalopathy, congestive heart failure, type 2 diabetes, hyperlipidemia, hypertension, chronic arterial occlusive disease, coronary artery disease, tobacco dependence. She is on aspirin and Plavix. She presented to the emergency department with symptoms of chest tightness, abdominal pain, nausea, and vomiting for 3 days. [id number] ultrasound was performed by the ER physician which revealed no evidence of any pericholecystic fluid. There was no obvious stones. She was found to have a markedly dilated common bile duct measuring 1.4 cm. She had a CT scan performed which revealed apparent gallstones with dilated common bile duct. She was admitted for inpatient management. Surgery and cardiology consultations were obtained. She has a normal white blood cell count. Normal liver function tests and pancreatic enzymes. She had above normal troponin. Confirmatory gallbladder ultrasound was performed which reveals gallstones with 1.3 cm common bile duct with no gallbladder wall thickening or pericholecystic fluid. Of note, patient has diabetic Charcot foot with nonhealing ulcer and is apparently scheduled for below-knee amputation. . [facility] Disclaimer: The information contained in this section may have been updated after the patient was seen, as this information can be updated by other users. Medical History Osteomyelitis Tobacco dependence syndrome Hypertension Peripheral arterial disease CAD (coronary atherosclerotic disease) T2DM (type 2 diabetes mellitus) Decreased pedal pulses Ulcer of second toe of right foot Pulmonary edema Abnormal ankle brachial index (ELLIE) Acute on chronic systolic heart failure Closed left ankle fracture Elevated left ventricular end-diastolic pressure (LVEDP) Edema of both lower extremities Syncope Abnormal result of cardiovascular function study Typical angina Arthritis GERD (gastroesophageal reflux disease) Depression COPD (chronic obstructive pulmonary disease) Arrhythmia Hyperlipidemia Surgical History History of cancer surgery H/O total hysterectomy Hx of colonoscopy Family History Other Cancer Coronary artery disease Diabetes Heart attack Hypertension Stroke Social History (Updated 01/20/25 @ 17:47 by Joslyn Zaldivar RN) Smoking Status: Current every day smoker tobacco type: cigarettes alcohol intake: never substance use type: denies use current occupational status: unemployed and disabled Travel in the last 8 weeks?: None household members: spouse housing: house Have you lived/traveled outside US in past 30 days?: No Contact w/someone who lives/traveled outside US past 30 days?: No Exposure to someone with infectious disease in past 14 days?: No Do you have a fever (greater than 100.4 F or 38 C)?: No Have you tested positive for COVID-19?: No Exposed to someone with COVID-19 in past 14 days?: No Do you have a sore throat?: No Do you have a cough?: No Do you have any weakness?: No Do you have any diarrhea?: Yes Are you experiencing any unusual bleeding?: No Do you have any muscle aches/pain?: No Do you have any abdominal pain?: Yes Are you experiencing loss of taste or smell?: No Meds Home Medications and Allergies Home Medications ?Medication ?Instructions ?Recorded ?Confirmed ?Type bupropion HCl 150 mg tablet,12 hr 150 mg PO BID 04/14/24 01/20/25 History sustained-release spironolactone 25 mg tablet 25 mg PO DAILY 04/15/24 01/20/25 History sennosides 8.6 mg tablet (Senna 17.2 mg (2 x 8.6 mg) PO DAILY 30 04/24/24 01/20/25 Rx Laxative) days #60 tabs polyethylene glycol 3350 17 17 g PO DAILY PRN Constipation 05/21/24 01/20/25 History gram/dose oral powder (Miralax) citalopram 20 mg tablet 20 mg PO DAILY #90 tabs 08/30/24 01/20/25 Rx clopidogrel 75 mg tablet 75 mg PO DAILY #30 tabs 10/09/24 01/20/25 Rx lisinopril 40 mg tablet 40 mg PO HS #30 tabs 10/09/24 01/20/25 Rx pantoprazole 40 mg tablet,delayed 40 mg PO HS #90 tabs 10/09/24 01/20/25 Rx release aspirin 81 mg tablet,delayed 81 mg PO DAILY 10/20/24 01/20/25 History release (Darshana Low Dose Aspirin) ferrous sulfate 325 mg (65 mg 325 mg PO DAILY 10/20/24 01/20/25 History iron) tablet (Feosol) levothyroxine 200 mcg tablet 200 mcg PO DAILYDM 10/20/24 01/20/25 History folic acid 1 mg tablet 1 mg PO DAILY 30 days #30 tabs 10/26/24 01/20/25 Rx furosemide 80 mg tablet 80 mg PO DAILY 30 days #90 tabs 12/20/24 01/20/25 Rx hydrocodone 5 mg-acetaminophen 325 1 tab PO Q8H PRN Severe Pain 01/01/25 01/20/25 Rx mg tablet (7-10) 30 days #90 tabs Diabetic Shoes (DME) #1 ea 01/09/25 01/20/25 Rx atorvastatin 40 mg tablet 40 mg PO HS #90 tabs 01/10/25 01/20/25 Rx allopurinol 100 mg tablet 100 mg PO DAILY 01/20/25 01/20/25 History dapagliflozin propanediol 10 mg 10 mg PO DAILY 01/20/25 01/20/25 History tablet (Farxiga) gabapentin 300 mg capsule 300 mg PO TID 01/20/25 History carvedilol 12.5 mg tablet 12.5 mg PO BID 01/21/25 01/21/25 History New Prescriptions to Start Prescriptions: Allergies Allergy/AdvReac Type Severity Reaction Status Date / Time canagliflozin (From [facility]) Allergy Severe kidney Verified 01/16/25 09:08 issues Exam (Inpt) Vital signs and Labs for Last 24 Hours: Temp Pulse Resp BP Pulse Ox O2 Del Method 97.8 F 74 16 141/79 H 100 Room Air 01/21/25 08:00 01/21/25 08:00 01/21/25 08:00 01/21/25 08:00 01/21/25 08:00 01/21/25 08:00 Laboratory Results - last 24 hr 01/20/25 12:32: WBC 7.6, RBC 4.26, Hgb 12.6, Hct 37.5, MCV 88.0, MCH 29.6, MCHC 33.6, RDW 14.0, Plt Count 298, MPV 8.7, Neut % (Auto) 61.2, Lymph % (Auto) 28.6, [place] % (Auto) 7.8, Eos % (Auto) 1.4, Baso % (Auto) 0.5, Neut # (Auto) 4.6, Lymph # (Auto) 2.2, [place] # (Auto) 0.6, Eos # (Auto) 0.1, Baso # (Auto) 0.0, PT 12.0, INR 1.09, APTT 23.7, Sodium 137, Potassium 4.4, Chloride 98, Carbon Dioxide 28, Anion Gap 15.4 H, BUN 38 H, Creatinine 1.00, Estimated Creat Clear 60, Estimated GFR 56 L, Est GFR ( Amer) 68, Glucose 196 H, Calcium 10.6 H, Magnesium 2.3, Total Bilirubin 0.6, AST 34, ALT 25, Alkaline Phosphatase 137 H, Troponin I 0.02, NT-Pro-B Natriuret Pep 3240 H, Total Protein 8.6 H, Albumin 4.6, Globulin 4.0 H, Albumin/Globulin Ratio 1.2, Lipase 71 01/20/25 13:57: VBG pH 7.41, VBG pCO2 47.0, VBG pO2 36.2, VBG HCO3 29.5, VBG Total CO2 31.0 H, VBG O2 Saturation 66.8, VBG Base Excess 4.2 H, VBG Lactic Acid 1.2 01/20/25 14:04: Urine Color Yellow, Urine Appearance Clear, Urine pH 8.0, Ur Specific [place] 1.020, Urine Protein 1+ A, Urine Glucose (UA) 3+, Urine Ketones Negative, Urine Blood Trace-i, Urine Nitrate Negative, Urine Bilirubin Negative, Urine Urobilinogen 0.2, Ur Leukocyte Esterase Negative, Urine RBC 3-5, Urine WBC None, Ur Squamous Epith Cells 5-10, Urine Bacteria Trace 01/20/25 15:15: Troponin I 0.04 H 01/20/25 18:15: Troponin I 0.04 H 01/20/25 20:40: Troponin I 0.03 01/20/25 20:45: POC Glucose 111 H 01/21/25 02:21: Troponin I 0.04 H 01/21/25 05:44: WBC 6.8, RBC 3.29 L, Hgb 9.9 L D, Hct 29.7 L, MCV 90.3, MCH 29.5, MCHC 32.7, RDW 14.3, Plt Count 211 D, MPV 8.7, Neut % (Auto) 54.4, Lymph % (Auto) 32.8, [place] % (Auto) 9.7 H, Eos % (Auto) 1.9, Baso % (Auto) 0.6, Neut # (Auto) 3.7, Lymph # (Auto) 2.2, [place] # (Auto) 0.7, Eos # (Auto) 0.1, Baso # (Auto) 0.0, Sodium 132 L, Potassium 3.4 L D, Chloride 99, Carbon Dioxide 27, Anion Gap 9.4, BUN 35 H, Creatinine 1.20 H, Estimated Creat Clear 49, Estimated GFR 46 L, Est GFR ( Amer) 55 L, Glucose 128 H D, Calcium 9.4, Total Bilirubin 0.3, AST 26, ALT 17 D, Alkaline Phosphatase 99, Total Protein 6.8, Albumin 3.1 L D, Globulin 3.7 H, Albumin/Globulin Ratio 0.8 L 01/21/25 06:17: POC Glucose 137 H I & O for Labs for Last 24 Hours: Intake & Output 01/18/25 01/19/25 01/20/25 01/21/25 11:59 11:59 11:59 11:59 Intake Total 709 / 709 Output Total 300 / 300 Balance 409 / 409 Weight 141 lb 3.2 oz GI: Present soft; Absent tenderness Results Labs 01/21/25 05:44 01/21/25 05:44 Labs: Laboratory Results - last 24 hr 01/20/25 12:32: WBC 7.6, RBC 4.26, Hgb 12.6, Hct 37.5, MCV 88.0, MCH 29.6, MCHC 33.6, RDW 14.0, Plt Count 298, MPV 8.7, Neut % (Auto) 61.2, Lymph % (Auto) 28.6, [place] % (Auto) 7.8, Eos % (Auto) 1.4, Baso % (Auto) 0.5, Neut # (Auto) 4.6, Lymph # (Auto) 2.2, [place] # (Auto) 0.6, Eos # (Auto) 0.1, Baso # (Auto) 0.0, PT 12.0, INR 1.09, APTT 23.7, Sodium 137, Potassium 4.4, Chloride 98, Carbon Dioxide 28, Anion Gap 15.4 H, BUN 38 H, Creatinine 1.00, Estimated Creat Clear 60, Estimated GFR 56 L, Est GFR ( Amer) 68, Glucose 196 H, Calcium 10.6 H, Magnesium 2.3, Total Bilirubin 0.6, AST 34, ALT 25, Alkaline Phosphatase 137 H, Troponin I 0.02, NT-Pro-B Natriuret Pep 3240 H, Total Protein 8.6 H, Albumin 4.6, Globulin 4.0 H, Albumin/Globulin Ratio 1.2, Lipase 71 01/20/25 13:57: VBG pH 7.41, VBG pCO2 47.0, VBG pO2 36.2, VBG HCO3 29.5, VBG Total CO2 31.0 H, VBG O2 Saturation 66.8, VBG Base Excess 4.2 H, VBG Lactic Acid 1.2 01/20/25 14:04: Urine Color Yellow, Urine Appearance Clear, Urine pH 8.0, Ur Specific [place] 1.020, Urine Protein 1+ A, Urine Glucose (UA) 3+, Urine Ketones Negative, Urine Blood Trace-i, Urine Nitrate Negative, Urine Bilirubin Negative, Urine Urobilinogen 0.2, Ur Leukocyte Esterase Negative, Urine RBC 3-5, Urine WBC None, Ur Squamous Epith Cells 5-10, Urine Bacteria Trace 01/20/25 15:15: Troponin I 0.04 H 01/20/25 18:15: Troponin I 0.04 H 01/20/25 20:40: Troponin I 0.03 01/20/25 20:45: POC Glucose 111 H 01/21/25 02:21: Troponin I 0.04 H 01/21/25 05:44: WBC 6.8, RBC 3.29 L, Hgb 9.9 L D, Hct 29.7 L, MCV 90.3, MCH 29.5, MCHC 32.7, RDW 14.3, Plt Count 211 D, MPV 8.7, Neut % (Auto) 54.4, Lymph % (Auto) 32.8, [place] % (Auto) 9.7 H, Eos % (Auto) 1.9, Baso % (Auto) 0.6, Neut # (Auto) 3.7, Lymph # (Auto) 2.2, [place] # (Auto) 0.7, Eos # (Auto) 0.1, Baso # (Auto) 0.0, Sodium 132 L, Potassium 3.4 L D, Chloride 99, Carbon Dioxide 27, Anion Gap 9.4, BUN 35 H, Creatinine 1.20 H, Estimated Creat Clear 49, Estimated GFR 46 L, Est GFR ( Amer) 55 L, Glucose 128 H D, Calcium 9.4, Total Bilirubin 0.3, AST 26, ALT 17 D, Alkaline Phosphatase 99, Total Protein 6.8, Albumin 3.1 L D, Globulin 3.7 H, Albumin/Globulin Ratio 0.8 L 01/21/25 06:17: POC Glucose 137 H Assessment and Plan *Assessment and plan (1) Abdominal pain: Status: Acute Category: Medical Code(s): R10.9 - Unspecified abdominal pain Plan Patient does not have an indication for urgent cholecystectomy at this time. Cardiology assessment still pending. Bile duct dilatation is concerning. May be a candidate for MRCP given marked CBD dilatation with normal liver being on dual antiplatelet therapy.
--- NOTE | 2025-01-21 09:00 | HMH.PHAINT1 ---
Pharmacy Intervention Comments: home medication list verified using list from outpatient pharmacy
[2025-01-21] MEDS: ASPIRIN EC 81MG TABLET 81 MG PO (09:09)
[2025-01-21] MEDS: FOLIC ACID 1MG TABLET 1 MG PO (09:09)
[2025-01-21] MEDS: SPIRONOLACTONE 25MG TABLET 25 MG PO (09:09)
[2025-01-21] MEDS: GABAPENTIN 300MG CAPSULE 300 MG PO ×2 (09:09→20:03)
[2025-01-21] MEDS: CITALOPRAM 20MG TABLET 20 MG PO (09:10)
[2025-01-21] MEDS: ALLOPURINOL 100MG TABLET 100 MG PO (09:10)
[2025-01-21] MEDS: FERROUS SULFATE 325MG TABLET 325 MG PO (09:10)
[2025-01-21] MEDS: SENNA 8.6MG TABLET 17.2 MG PO (09:10)
[2025-01-21] MEDS: CLOPIDOGREL 75MG TAB 75 MG PO (09:10)
--- NOTE | 2025-01-21 09:57 | HMH.PTEV ---
Physical Therapy Evaluation Rehab PT IP Evaluation Start: 01/20/25 17:44 Freq: .once Status: Active Protocol: Document 01/21/25 09:54 JEFFERSON (Rec: 01/21/25 09:57 MOMOOSMANY [id number]) Subjective/History History History 64-year-old female with past medical history of hypertension hyperlipidemia CHF diabetes mellitus CAD who presents to the hospital due to chest tightness, abdominal pain nausea vomiting. According to the patient she has been having vomiting for past 3 days. Patient is also concerned about right upper quadrant abdominal pain, she is concerned she might have gallbladder inflammation. Patient otherwise denying fevers chills diarrhea constipation dysuria. Pt reports she lives with family, no CATY the home, and she is generally independent with all transfer and mobility using a w/c at baseline. Subjective Subjective Pt has no c/o this am and agrees to mobility assessment . [facility] How much help from another person do you currently need... Turning from your None back to your side while in a flat bed without using bedrails? Moving from lying on None back to sitting on the side of a flat bed without using bedrails? Moving to and from a None bed to a chair ( including a wheelchair)? Standing up from a None chair using your arms? (e.g., wheelchair, bedside chair) Walking in hospital None room? Climbing 3-5 steps A little with a railing? Mobility Score 23 Mobility Level [facility] Mobility 7 Walk 25 feet or more Mobility Calculator Rehab PT IP Eval Objective Appearance Patient Behavior Appropriate Patient Orientation Person,Place,Time Difficulty following none instructions Speech Pattern Clear Ambulation Patient Able to Yes Ambulate Ambulation Observation Ambulation Distance 20 (feet) Ambulation Assistive Rolling Walker Device Ambulation Ability Supervision/Stand by Balance Ability to Arise Able, uses arms to help Sitting Balance Steady, safe Standing Balance Steady, wide stance Dynamic Sitting Good Balance Ability Dynamic Standing Fair Balance Ability Transfers Bed Transfer Ability Supervision/Stand by Chair Transfer Supervision/Stand by Ability Sit to Stand Bed Supervision/Stand by Transfer Ability Sit to Stand Chair Supervision/Stand by Transfer Ability Rehab PT IP prob,goals,plan Problems Date of Evaluation: 01/21/25 Discharge Plan PT Discharge Plan Pt is currently appropriate to return home once medically stable for d/c. No current acute skilled therapy needs. Eval Complexity Eval Charge Codes 05101 - High Complexity PHYSICIAN CERTIFICATION: I certify the specified therapy services for Micheline Juany Coheniam are required, authorized, and reviewed every 30 days.
--- NOTE | 2025-01-21 10:06 | HMH.PTWOUND ---
Rehab Inpt Wound Evaluation Rehab IP Wound Evaluation Start: 01/20/25 19:47 Freq: ONCE Status: Active Protocol: Document 01/21/25 09:58 JEFFERSON (Rec: 01/21/25 10:06 PHOOSMANY [id number]) Rehab PT Wound Assessment Subjective Subjective 64-year-old female with past medical history of hypertension hyperlipidemia CHF diabetes mellitus CAD who presents to the hospital due to chest tightness, abdominal pain nausea vomiting. According to the patient she has been having vomiting for past 3 days. Patient is also concerned about right upper quadrant abdominal pain, she is concerned she might have gallbladder inflammation. Patient otherwise denying fevers chills diarrhea constipation dysuria. Pt reports she lives with family, no CATY the home, and she is generally independent with all transfer and mobility using a w/c at baseline. Pt presents with L lateral DFU upin admission. She reports she is scheduled to she ortho surgery for L BKA consultation next week. Wound Left Lateral Foot Wound Type Diabetic Foot Ulcer Is This a Chronic Yes Wound Wound Length (cm) 3.7 Wound Width (cm) 2.1 Wound Depth (cm) 0.5 Wound Bed Appearance Beefy Red,[place] Wound Margins Well Defined Description Wound Drainage Serosanguineous Description Drainage Amount Scant Wound Topical Saline Irrigant Solution/Irrigant Primary Dressing Gauze Pad Comment betadine soaked gauze Wound Secondary Gauze Roll/Wrap,Adhering Gauze Roll Dressing Type Wound Debridement Gauze,Mechanical Method Wound Debridement None Amount of Tissue Removed Dressing Change Tolerated Well Patient Tolerance Plan/Recommendation Comment Currently no need for excisional debridement of L foot DFU. g staff to continue dressing changes as previous . Thank you for involving the wound care team in the care of this pt. Eval Complexity Eval Charge Codes 44893 - High Complexity PHYSICIAN CERTIFICATION: I certify the specified therapy services for Micheline Hernandez are required, authorized, and reviewed every 30 days.
[2025-01-21] MEDS: DAPAGLIFLOZIN PROPANEDIOL 10 MG TABLET PO (10:19)
[2025-01-21 10:29] LABS: POC Glucose,Bedside 141 (70-110)
--- NOTE | 2025-01-21 10:31 | SW/DCPLANNER ---
Per PT/OT patient is currently at baseline to return home w/ assistance from family. Patient stated that she lives at home w/ grandson that is able to assist her. Patient is scheduled to have BKA at [facility] in the near future w/ Dr Redmond. Patient and I discussed the possible need for placement at that point. Patient stated that she just completed home health services. Patient does not have any further needs/questions at this time. I will continue to follow up.
[2025-01-21] MEDS: MORPHINE 2MG/ML SYRINGE 2 MG IV ×4 (11:07→23:12)
[2025-01-21 12:00] VITALS: BP 162/75; PULSE 70; PULSE 79; RESP 16; TEMP 36.7; O2SAT 99
--- NOTE | 2025-01-21 12:49 | MR_ITS ---
FINAL REPORT CLINICAL HISTORY: nausea, vomiting enlarged cbd on u/s MRCP PROTOCAL COMPARISON: 01/21/2025 FINDINGS: Multiplanar MR imaging of the abdomen was performed without and with contrast. Images of the liver reveal no evidence of mass. There is no significant intrahepatic biliary ductal dilatation. There is significant distention of the common bile duct measuring up to 14 mm in diameter. There is minimal abnormal signal at the dependent portion of the gallbladder likely related to sludge. No filling defect is seen in the distal common bile duct. Specifically, there is no evidence of choledocholithiasis. Spleen is normal in size. Pancreas, adrenal glands and kidneys are unremarkable. No mass or adenopathy is identified. No abnormal fluid collection is seen. No abnormal contrast enhancement is seen on the postcontrast images. IMPRESSION: Distended, duct without evidence of choledocholithiasis. Small amount of sludge in the gallbladder. Reviewed, Interpreted and Dictated by Zeb Shah MD Transcribed by Dacia Anglin Authenticated and . [facility]
--- NOTE | 2025-01-21 13:38 | HMH.OTEV ---
OT Inpatient Evaluation Rehab OT IP Evaluation Start: 01/20/25 17:44 Freq: ONCE Status: Active Protocol: Document 01/21/25 13:24 ANDREEAEDY (Rec: 01/21/25 13:38 CLARISA [id number]) Rehab OT IP Assessment Subjective History Patient is a 64-year-old female with past medical history of hypertension hyperlipidemia CHF diabetes mellitus CAD who presents to the hospital due to chest tightness, abdominal pain nausea vomiting. According to the patient she has been having vomiting for past 3 days. Patient is also concerned about right upper quadrant abdominal pain, she is concerned she might have gallbladder inflammation. Patient otherwise denying fevers chills diarrhea constipation dysuria. Patient lives in 1 story home with ramp to enter with 15 year old grandson. Family assist with transportation as needed. Patient is able to complete all transfers and ADLs Mod I. Subjective I can get up. Instructed Patient on safety awareness to complete bed mobility, transfers, fx'l mobility within environment and toileting. Patient completed all tasks with SUP for safety. Patient completed all fx'l mobility with RW. No LOB noted. Objective Patient Orientation Person,Place,Name,Age Right Upper WFL Extremity Gross ROM Left Upper Extremity WFL Gross ROM Bed Mobility bed mobility-scooting Assist Level Independent Transfer Training Sit/Stand/Step Transfer Assist Level Supervision/Stand by Chair Transfer Supervision/Stand by Ability Chair Transfer Sit to/from Ambulatory Technique Chair Transfer Rolling Walker Assistive Devices Rehab OT IP prob,goals,plan Problems Date of Evaluation: 01/21/25 Rehab Potential Rehab Potential Innapropriate for Skilled Therapy Discharge Plan OT Discharge Plan Patient appears to be at baseline. Recommend patient to return home with services as indicated. Eval Complexity Eval Charge Codes 33560 - Moderate Complexity PHYSICIAN CERTIFICATION: I certify the specified therapy services for Micheline Hernandez are required, authorized, and reviewed every 30 days.
--- NOTE | 2025-01-21 15:13 | EXP.CARD.CON ---
History of Present Illness History of Present Illness Consult date: 01/21/25 Requesting physician: Dov [place] Consult reason: chest pain Chief complaint: CP and Abd pain History of present illness: 64-year-old white female we last saw here in October with a history of CAD, PAD, diabetes, HFrEF 40%, hypertension, hypercholesterolemia. She had recently been discharged from [facility] with septic knee and MRSA bacteremia on long-term linezolid. She was here with severe anemia, HFpEF, osteomyelitis. We stented right common iliac artery and did lithotripsy and angioplasty to distal right SFA and popliteal. Her left lower extremity was unremarkable. She subsequently underwent right 2nd and 5th toe amputation and we signed off for outpatient follow-up but we have not seen her since. Patient presented to the emergency room 01/20 complaining of right upper quadrant and epigastric/chest discomfort with profuse vomiting for 3 days. Her workup revealed flat troponin x 3 at 0.04, proBNP 3214, repeat echo was normal, EKG showed bigeminal PVCs and right bundle branch block. Right upper quadrant ultrasound and CT abdomen both revealed gallstones with dilated common bile duct and normal LFTs. General surgery consulted and recommended no immediate surgery. She has normal white count. On my evaluation patient states she is feeling somewhat better but has ongoing right upper quadrant pain which is very tender to light palpation. She states symptoms do not feel anything like prior cardiac issues. [facility] Disclaimer: The information contained in this section may have been updated after the patient was seen, as this information can be updated by other users. Medical History Osteomyelitis Tobacco dependence syndrome Hypertension Peripheral arterial disease CAD (coronary atherosclerotic disease) T2DM (type 2 diabetes mellitus) Decreased pedal pulses Ulcer of second toe of right foot Pulmonary edema Abnormal ankle brachial index (ELLIE) Acute on chronic systolic heart failure Closed left ankle fracture Elevated left ventricular end-diastolic pressure (LVEDP) Edema of both lower extremities Syncope Abnormal result of cardiovascular function study Typical angina Arthritis GERD (gastroesophageal reflux disease) Depression COPD (chronic obstructive pulmonary disease) Arrhythmia Hyperlipidemia Surgical History History of cancer surgery H/O total hysterectomy Hx of colonoscopy Family History Other Cancer Coronary artery disease Diabetes Heart attack Hypertension Stroke Social History Smoking Status: Current every day smoker tobacco type: cigarettes alcohol intake: never substance use type: denies use current occupational status: unemployed and disabled Travel in the last 8 weeks?: None household members: spouse housing: house Have you lived/traveled outside [place] in past 30 days?: No Contact w/someone who lives/traveled outside [place] past 30 days?: No Exposure to someone with infectious disease in past 14 days?: No Do you have a fever (greater than 100.4 F or 38 C)?: No Have you tested positive for COVID-19?: No Exposed to someone with COVID-19 in past 14 days?: No Do you have a sore throat?: No Do you have a cough?: No Do you have any weakness?: No Do you have any diarrhea?: Yes Are you experiencing any unusual bleeding?: No Do you have any muscle aches/pain?: No Do you have any abdominal pain?: Yes Are you experiencing loss of taste or smell?: No Review of Systems Constitutional Constitutional: Denies fatigue and Reports weakness Eyes Eyes: Denies loss of vision ENT Ears, Nose, Mouth, and Throat: Denies hearing loss and Denies vertigo *Cardiovascular Cardiovascular: Reports chest pain, Denies dyspnea and Denies syncope *Respiratory Respiratory: Denies cough and Denies dyspnea *Gastrointestinal Gastrointestinal: Reports abdominal pain, Denies change in stool character, Denies nausea and Reports vomiting *Musculoskeletal Musculoskeletal: Denies muscle weakness Integumentary/Breasts Skin/Breast: Denies changing lesions *Neurologic Neurologic: Denies loss of vision, Denies syncope, Denies vertigo and Reports weakness Endocrine Endocrine: Denies fatigue Exam Data for Last 24 hours Vital signs and Labs for Last 24 Hours: Temp Pulse Resp BP Pulse Ox O2 Del Method 98.0 F 79 16 162/75 H 99 Room Air 01/21/25 12:00 01/21/25 12:00 01/21/25 12:00 01/21/25 12:00 01/21/25 12:00 01/21/25 12:00 Laboratory Results - last 24 hr 01/20/25 12:32: Magnesium 2.3 01/20/25 15:15: Troponin I 0.04 H 01/20/25 18:15: Troponin I 0.04 H 01/20/25 20:40: Troponin I 0.03 01/20/25 20:45: POC Glucose 111 H 01/21/25 02:21: Troponin I 0.04 H 01/21/25 05:44: WBC 6.8, RBC 3.29 L, Hgb 9.9 L D, Hct 29.7 L, MCV 90.3, MCH 29.5, MCHC 32.7, RDW 14.3, Plt Count 211 D, MPV 8.7, Neut % (Auto) 54.4, Lymph % (Auto) 32.8, [place] % (Auto) 9.7 H, Eos % (Auto) 1.9, Baso % (Auto) 0.6, Neut # (Auto) 3.7, Lymph # (Auto) 2.2, [place] # (Auto) 0.7, Eos # (Auto) 0.1, Baso # (Auto) 0.0, Sodium 132 L, Potassium 3.4 L D, Chloride 99, Carbon Dioxide 27, Anion Gap 9.4, BUN 35 H, Creatinine 1.20 H, Estimated Creat Clear 49, Estimated GFR 46 L, Est GFR ( Amer) 55 L, Glucose 128 H D, Calcium 9.4, Total Bilirubin 0.3, AST 26, ALT 17 D, Alkaline Phosphatase 99, Total Protein 6.8, Albumin 3.1 L D, Globulin 3.7 H, Albumin/Globulin Ratio 0.8 L 01/21/25 06:17: POC Glucose 137 H 01/21/25 10:16: POC Glucose 141 H I & O for Last 24 hours: Intake & Output 01/18/25 01/19/25 01/20/25 01/21/25 23:59 23:59 23:59 23:59 Intake Total 480 / 709 229 / 229 Output Total 300 / 300 Balance 480 / 609 -71 / -71 Weight 143 lb 141 lb 3.2 oz Meds Home Medications and Allergies Home Medications ?Medication ?Instructions ?Recorded ?Confirmed ?Type bupropion HCl 150 mg tablet,12 hr 150 mg PO BID 04/14/24 01/20/25 History sustained-release spironolactone 25 mg tablet 25 mg PO DAILY 04/15/24 01/20/25 History sennosides 8.6 mg tablet (Senna 17.2 mg (2 x 8.6 mg) PO DAILY 30 04/24/24 01/20/25 Rx Laxative) days #60 tabs polyethylene glycol 3350 17 17 g PO DAILY PRN Constipation 05/21/24 01/20/25 History gram/dose oral powder (Miralax) citalopram 20 mg tablet 20 mg PO DAILY #90 tabs 08/30/24 01/20/25 Rx clopidogrel 75 mg tablet 75 mg PO DAILY #30 tabs 10/09/24 01/20/25 Rx lisinopril 40 mg tablet 40 mg PO HS #30 tabs 10/09/24 01/20/25 Rx pantoprazole 40 mg tablet,delayed 40 mg PO HS #90 tabs 10/09/24 01/20/25 Rx release aspirin 81 mg tablet,delayed 81 mg PO DAILY 10/20/24 01/20/25 History release (Darshana Low Dose Aspirin) ferrous sulfate 325 mg (65 mg 325 mg PO DAILY 10/20/24 01/20/25 History iron) tablet (Feosol) levothyroxine 200 mcg tablet 200 mcg PO DAILYDM 10/20/24 01/20/25 History folic acid 1 mg tablet 1 mg PO DAILY 30 days #30 tabs 10/26/24 01/20/25 Rx furosemide 80 mg tablet 80 mg PO DAILY 30 days #90 tabs 12/20/24 01/20/25 Rx hydrocodone 5 mg-acetaminophen 325 1 tab PO Q8H PRN Severe Pain 01/01/25 01/20/25 Rx mg tablet (7-10) 30 days #90 tabs Diabetic Shoes (DME) #1 ea 01/09/25 01/20/25 Rx atorvastatin 40 mg tablet 40 mg PO HS #90 tabs 01/10/25 01/20/25 Rx allopurinol 100 mg tablet 100 mg PO DAILY 01/20/25 01/20/25 History dapagliflozin propanediol 10 mg 10 mg PO DAILY 01/20/25 01/20/25 History tablet (Farxiga) gabapentin 300 mg capsule 300 mg PO TID 01/20/25 History carvedilol 12.5 mg tablet 12.5 mg PO BID 01/21/25 01/21/25 History New Prescriptions to Start Prescriptions: Allergies Allergy/AdvReac Type Severity Reaction Status Date / Time canagliflozin (From Invokana) Allergy Severe kidney Verified 01/16/25 09:08 issues Assessment and Plan *Assessment and plan (1) CAD (coronary atherosclerotic disease): Status: Acute Qualifiers: Associated angina: with other forms of angina Coronary Disease-Associated Artery/Lesion type: [place] artery [place] vs. transplanted heart: [place] heart Qualified Code(s): I25.118 - Atherosclerotic heart disease of [place] coronary artery with other forms of angina pectoris Category: Medical Code(s): I25.10 - Atherosclerotic heart disease of [place] coronary artery without angina pectoris (2) T2DM (type 2 diabetes mellitus): Status: Acute Qualifiers: Diabetes mellitus complication detail: with neuropathic arthropathy Diabetes mellitus complication status: with diabetic arthropathy Diabetes mellitus retirement insulin use: with oysterman use Qualified Code(s): E11.610 - Type 2 diabetes mellitus with diabetic neuropathic arthropathy; Z79.4 - FCI (current) use of insulin Category: Medical Code(s): E11.9 - Type 2 diabetes mellitus without complications (3) Osteomyelitis: Status: Acute Qualifiers: Laterality: right Osteomyelitis location: foot Osteomyelitis type: other chronic Qualified Code(s): M86.671 - Other chronic osteomyelitis, right ankle and foot Category: Medical Code(s): M86.9 - Osteomyelitis, unspecified (4) History of amputation of right second toe: Status: Acute Category: Surgical Code(s): Z89.421 - Acquired absence of other right toe(s) (5) Chronic systolic heart failure: Status: Acute Category: Medical Code(s): I50.22 - Chronic systolic (congestive) heart failure (6) Nausea & vomiting: Status: Acute Category: Medical Code(s): R11.2 - Nausea with vomiting, unspecified Plan CAD, [place] - [facility]NI 'years ago' - CCS = 0, symptoms are reproducible RUQ enderness and pleuritic CP from vomiting - ECHO - no WMA, nml Bi-V function - EKG - SR with frequent PVCs - Trop flat 0.04 x3 - ACS ruled out, continue med therpay (DAPT, Statin, BB) and reassess underlying ischemia as outpatient HFimpEF - prior documentation of EF 40%, but EF normal here - ProBNP 3k, does not appear volume overloaded - cont Coreg, Aldactone, Farixga, PRN Diuretics PAD - Extensive RLE revascularization 10/2024 witih osteomyelitis and 2nd/5th toe amputations at same time - healing well, denies leg pain at this time - cont DAPT, Statin Cholecystitis and CBD Dilation - severely painful with frequent vomiting - plans per hospitalist PVCs - asymptomatic - continue beta blockers - consider OP monitor to assess PVC burden if they continue CV Summary: Pt appears CV stable. Trop likely chronically elevated due to underlying disease. ACS ruled out. Continue current med therapy and please advise if further CV concerns this admission.
[2025-01-21] MEDS: GADOTERIDOL INJ 20ML SYRINGE 13 ML IV (15:41)
[2025-01-21] MEDS: 0.9 % SODIUM CHLORIDE 50 ML VIAL 10 ML IV (15:41)
[2025-01-21] MEDS: SODIUM CHLORIDE 0.9% 10ML FLUSH SYRINGE 10 ML IV (15:41)
[2025-01-21 16:00] VITALS: BP 167/82; PULSE 76; RESP 16; O2SAT 100
[2025-01-21 16:20] LABS: POC Glucose,Bedside 89 (70-110)
--- NOTE | 2025-01-21 16:27 | EXP.GE.CONS ---
History of Present Illness *Admission Date: 01/20/25 *History of present illness: Patient is a 64-year-old female from [facility] with history of diabetes with previous osteomyelitis and toe amputation, chronic systolic heart failure, encephalopathy, congestive heart failure, type 2 diabetes, hyperlipidemia, hypertension, chronic arterial occlusive disease, coronary artery disease, tobacco dependence. She is on aspirin and Plavix. She presented to the emergency department with symptoms of chest tightness, abdominal pain, nausea, and vomiting for 3 days. [id number] ultrasound was performed by the ER physician which revealed no evidence of any pericholecystic fluid. There was no obvious stones. She was found to have a markedly dilated common bile duct measuring 1.4 cm. She had a CT scan performed which revealed apparent gallstones with dilated common bile duct. She was admitted for inpatient management. Surgery and cardiology consultations were obtained. She has a normal white blood cell count. Normal liver function tests and pancreatic enzymes. She had above normal troponin. Confirmatory gallbladder ultrasound was performed which reveals gallstones with 1.3 cm common bile duct with no gallbladder wall thickening or pericholecystic fluid. Of note, patient has diabetic Charcot foot with nonhealing ulcer and is apparently scheduled for below-knee amputation. Per admission H & P This is a pleasant 64-year-old female with above medical history. She reports she came to the ER 3 weeks ago with nausea and vomiting which improved at home. She returned with nausea vomiting and abdominal pain that been going on this time for about 3 days. She was complaining of persistent epigastric pain and right upper quadrant pain. She is tender to palpation right lower quadrant and right upper quad and epigastric. The patient has chronic obstipation and takes 4 Senokot per day plus MiraLAX as needed. She is been taking this for 6 months. She usually only has about 2 or 3 bowel movements a week combination. She has been having her regular stooling these past couple of weeks that has not changed. She did have a single episode of diarrhea yesterday but that has not been ongoing. Initially she thought the abdominal pain may be musculoskeletal related to all of the vomiting that she has had going on. She does report persistent heartburn or reflux and Prilosec helps that. Her last colonoscopy was 2 to 3 years ago. Last EGD was 5 years ago in [place]. With the CBD dilation, she underwent MRCP and we are awaiting results. LFTs are within normal limits today. She did have a slight elevation of alk phos yesterday. [facility] Disclaimer: The information contained in this section may have been updated after the patient was seen, as this information can be updated by other users. Medical History Osteomyelitis Tobacco dependence syndrome Hypertension Peripheral arterial disease CAD (coronary atherosclerotic disease) T2DM (type 2 diabetes mellitus) Decreased pedal pulses Ulcer of second toe of right foot Pulmonary edema Abnormal ankle brachial index (ELLIE) Acute on chronic systolic heart failure Closed left ankle fracture Elevated left ventricular end-diastolic pressure (LVEDP) Edema of both lower extremities Syncope Abnormal result of cardiovascular function study Typical angina Arthritis GERD (gastroesophageal reflux disease) Depression COPD (chronic obstructive pulmonary disease) Arrhythmia Hyperlipidemia Surgical History History of cancer surgery H/O total hysterectomy Hx of colonoscopy Family History Other Cancer Coronary artery disease Diabetes Heart attack Hypertension Stroke Social History Smoking Status: Current every day smoker tobacco type: cigarettes alcohol intake: never substance use type: denies use current occupational status: unemployed and disabled Travel in the last 8 weeks?: None household members: spouse housing: house Have you lived/traveled outside US in past 30 days?: No Contact w/someone who lives/traveled outside US past 30 days?: No Exposure to someone with infectious disease in past 14 days?: No Do you have a fever (greater than 100.4 F or 38 C)?: No Have you tested positive for COVID-19?: No Exposed to someone with COVID-19 in past 14 days?: No Do you have a sore throat?: No Do you have a cough?: No Do you have any weakness?: No Do you have any diarrhea?: Yes Are you experiencing any unusual bleeding?: No Do you have any muscle aches/pain?: No Do you have any abdominal pain?: Yes Are you experiencing loss of taste or smell?: No Review of Systems Constitutional Constitutional: Reports weakness Eyes Eyes: Denies loss of vision ENT Ears, Nose, Mouth, and Throat: Denies vertigo *Cardiovascular Cardiovascular: Denies syncope *Neurologic Neurologic: Denies loss of vision, Denies syncope, Denies vertigo and Reports weakness Meds Home Medications and Allergies Home Medications ?Medication ?Instructions ?Recorded ?Confirmed ?Type bupropion HCl 150 mg tablet,12 hr 150 mg PO BID 04/14/24 01/20/25 History sustained-release spironolactone 25 mg tablet 25 mg PO DAILY 04/15/24 01/20/25 History sennosides 8.6 mg tablet (Senna 17.2 mg (2 x 8.6 mg) PO DAILY 30 04/24/24 01/20/25 Rx Laxative) days #60 tabs polyethylene glycol 3350 17 17 g PO DAILY PRN Constipation 05/21/24 01/20/25 History gram/dose oral powder (Miralax) citalopram 20 mg tablet 20 mg PO DAILY #90 tabs 08/30/24 01/20/25 Rx clopidogrel 75 mg tablet 75 mg PO DAILY #30 tabs 10/09/24 01/20/25 Rx lisinopril 40 mg tablet 40 mg PO HS #30 tabs 10/09/24 01/20/25 Rx pantoprazole 40 mg tablet,delayed 40 mg PO HS #90 tabs 10/09/24 01/20/25 Rx release aspirin 81 mg tablet,delayed 81 mg PO DAILY 10/20/24 01/20/25 History release (Darshana Low Dose Aspirin) ferrous sulfate 325 mg (65 mg 325 mg PO DAILY 10/20/24 01/20/25 History iron) tablet (Feosol) levothyroxine 200 mcg tablet 200 mcg PO DAILYDM 10/20/24 01/20/25 History folic acid 1 mg tablet 1 mg PO DAILY 30 days #30 tabs 10/26/24 01/20/25 Rx furosemide 80 mg tablet 80 mg PO DAILY 30 days #90 tabs 12/20/24 01/20/25 Rx hydrocodone 5 mg-acetaminophen 325 1 tab PO Q8H PRN Severe Pain 01/01/25 01/20/25 Rx mg tablet (7-10) 30 days #90 tabs Diabetic Shoes (DME) #1 ea 01/09/25 01/20/25 Rx atorvastatin 40 mg tablet 40 mg PO HS #90 tabs 01/10/25 01/20/25 Rx allopurinol 100 mg tablet 100 mg PO DAILY 01/20/25 01/20/25 History dapagliflozin propanediol 10 mg 10 mg PO DAILY 01/20/25 01/20/25 History tablet (Farxiga) gabapentin 300 mg capsule 300 mg PO TID 01/20/25 History carvedilol 12.5 mg tablet 12.5 mg PO BID 01/21/25 01/21/25 History New Prescriptions to Start Prescriptions: Allergies Allergy/AdvReac Type Severity Reaction Status Date / Time canagliflozin (From [facility]) Allergy Severe kidney Verified 01/16/25 09:08 issues Exam (Inpt) Vital signs and Labs for Last 24 Hours: Temp Pulse Resp BP Pulse Ox O2 Del Method 98.0 F 79 16 162/75 H 99 Room Air 01/21/25 12:00 01/21/25 12:00 01/21/25 12:00 01/21/25 12:00 01/21/25 12:00 01/21/25 12:00 Laboratory Results - last 24 hr 01/20/25 12:32: Magnesium 2.3 01/20/25 18:15: Troponin I 0.04 H 01/20/25 20:40: Troponin I 0.03 01/20/25 20:45: POC Glucose 111 H 01/21/25 02:21: Troponin I 0.04 H 01/21/25 05:44: WBC 6.8, RBC 3.29 L, Hgb 9.9 L D, Hct 29.7 L, MCV 90.3, MCH 29.5, MCHC 32.7, RDW 14.3, Plt Count 211 D, MPV 8.7, Neut % (Auto) 54.4, Lymph % (Auto) 32.8, [place] % (Auto) 9.7 H, Eos % (Auto) 1.9, Baso % (Auto) 0.6, Neut # (Auto) 3.7, Lymph # (Auto) 2.2, [place] # (Auto) 0.7, Eos # (Auto) 0.1, Baso # (Auto) 0.0, Sodium 132 L, Potassium 3.4 L D, Chloride 99, Carbon Dioxide 27, Anion Gap 9.4, BUN 35 H, Creatinine 1.20 H, Estimated Creat Clear 49, Estimated GFR 46 L, Est GFR ( Amer) 55 L, Glucose 128 H D, Calcium 9.4, Total Bilirubin 0.3, AST 26, ALT 17 D, Alkaline Phosphatase 99, Total Protein 6.8, Albumin 3.1 L D, Globulin 3.7 H, Albumin/Globulin Ratio 0.8 L 01/21/25 06:17: POC Glucose 137 H 01/21/25 10:16: POC Glucose 141 H 01/21/25 15:49: POC Glucose 89 I & O for Labs for Last 24 Hours: Intake & Output 01/19/25 01/20/25 01/21/25 01/22/25 11:59 11:59 11:59 11:59 Intake Total 709 Output Total 300 Balance 409 Weight 64.047 kg Constitutional: no acute distress Head: Present normocephalic and atraumatic Respiratory: Present CTA bilaterally Cardiac: Present Reg Rate and Rhythm GI: Present soft, distention (Moderate distention with gas bloat), tenderness (Quite tender to palpation in the right lower quadrant right upper quadrant epigastric) and normal bowel sounds; Absent Gregorio's sign Skin: Present intact Results Labs 01/21/25 05:44 01/21/25 05:44 Labs: Laboratory Results - last 24 hr 01/20/25 12:32: Magnesium 2.3 01/20/25 18:15: Troponin I 0.04 H 01/20/25 20:40: Troponin I 0.03 01/20/25 20:45: POC Glucose 111 H 01/21/25 02:21: Troponin I 0.04 H 01/21/25 05:44: WBC 6.8, RBC 3.29 L, Hgb 9.9 L D, Hct 29.7 L, MCV 90.3, MCH 29.5, MCHC 32.7, RDW 14.3, Plt Count 211 D, MPV 8.7, Neut % (Auto) 54.4, Lymph % (Auto) 32.8, [place] % (Auto) 9.7 H, Eos % (Auto) 1.9, Baso % (Auto) 0.6, Neut # (Auto) 3.7, Lymph # (Auto) 2.2, [place] # (Auto) 0.7, Eos # (Auto) 0.1, Baso # (Auto) 0.0, Sodium 132 L, Potassium 3.4 L D, Chloride 99, Carbon Dioxide 27, Anion Gap 9.4, BUN 35 H, Creatinine 1.20 H, Estimated Creat Clear 49, Estimated GFR 46 L, Est GFR ( Amer) 55 L, Glucose 128 H D, Calcium 9.4, Total Bilirubin 0.3, AST 26, ALT 17 D, Alkaline Phosphatase 99, Total Protein 6.8, Albumin 3.1 L D, Globulin 3.7 H, Albumin/Globulin Ratio 0.8 L 01/21/25 06:17: POC Glucose 137 H 01/21/25 10:16: POC Glucose 141 H 01/21/25 15:49: POC Glucose 89 Assessment and Plan *Assessment and plan (1) Nausea & vomiting: Status: Acute Category: Medical Code(s): R11.2 - Nausea with vomiting, unspecified (2) Abdominal pain: Status: Acute Category: Medical Code(s): R10.9 - Unspecified abdominal pain (3) Chest pain: Status: Acute Category: Medical Code(s): R07.9 - Chest pain, unspecified (4) Common bile duct dilation: Status: Acute Category: Medical Code(s): K83.8 - Other specified diseases of biliary tract (5) Cholelithiasis: Status: Acute Category: Medical Code(s): K80.20 - Calculus of gallbladder without cholecystitis without obstruction Plan 1. Nausea/vomiting/abdominal pain/chest pain/CBD dilation/cholelithiasis Did have cholelithiasis and CBD dilation at 12 mm. Awaiting MRCP results. Nausea and vomiting has been intermittent for 2 to 3 weeks and she is quite tender to palpation right upper quadrant right lower quadrant and epigastric area. EGD was about 5 years ago in [place]. Patient is on hydrocodone 1-3 times a day long-term, it is possible that the CBD dilation is related to this. Her LFTs are all within normal limits today although she did have a small elevation of alk phos yesterday, I would still like to see the MRCP results before deciding course of action. Recheck LFTs in the a.m. Patient okay to advance diet as tolerated starting with a liquid diet and then bland diet today but will consider n.p.o. at midnight depending on MRCP results. As Dr. Pike will return tomorrow
--- NOTE | 2025-01-21 16:29 | PC.NURSE ---
patient is a/ox4, remains on RA tolerating well. patient has been NPO this shift. patient has c/o abdominal/back pain and nausea throughout shift. treated per AUG. patient has vomited twice his shift, patient stated it was yellow in color, patient denies seeing blood in vomit. FSBS, no SSI needed this shift. bed alarm in place. DSG to left foot was changed this shift by wound care, DSG C/D/I. Low fat diet ordered, will be NPO at midnight per . keely in place. call light within reach, no further requests at this time.
--- NOTE | 2025-01-21 17:35 | EXP.ACUTE.PN ---
Subjective *Date: 01/21/25 *Time: 18:30 Interval history: Patient complains of nausea and right upper quadrant pain that is intermittent. Responds to pain medication and antiemetics. Stable on room air. Alert and oriented x 4. Afebrile. Medical Exam Vital signs and Labs for Last 24 Hours: Vital Signs Temp Pulse Pulse Pulse Resp BP Pulse Ox 01/21/25 17:00 01/21/25 16:00 76 16 167/82 H 100 01/21/25 12:00 98.0 F 79 16 162/75 H 99 01/21/25 11:00 01/21/25 09:00 01/21/25 08:00 01/21/25 08:00 70 01/21/25 08:00 97.8 F 74 16 141/79 H 100 01/21/25 07:00 01/21/25 05:00 01/21/25 04:00 97.8 F 70 18 93/60 L 98 01/21/25 04:00 70 01/21/25 03:00 01/21/25 01:00 01/21/25 00:00 70 01/21/25 00:00 97.6 F 68 18 98/55 L 96 01/20/25 23:00 01/20/25 21:00 01/20/25 20:00 01/20/25 20:00 70 01/20/25 20:00 97.6 F 77 16 126/71 95 01/20/25 18:49 01/20/25 17:57 O2 Del Method 01/21/25 17:00 Room Air 01/21/25 16:00 Room Air 01/21/25 12:00 Room Air 01/21/25 11:00 Room Air 01/21/25 09:00 Room Air 01/21/25 08:00 Room Air 01/21/25 08:00 01/21/25 08:00 Room Air 01/21/25 07:00 Room Air 01/21/25 05:00 Room Air 01/21/25 04:00 Room Air 01/21/25 04:00 01/21/25 03:00 Room Air 01/21/25 01:00 Room Air 01/21/25 00:00 01/21/25 00:00 Room Air 01/20/25 23:00 Room Air 01/20/25 21:00 Room Air 01/20/25 20:00 Room Air 01/20/25 20:00 01/20/25 20:00 Room Air 01/20/25 18:49 Room Air 01/20/25 17:57 Room Air Intake and Output 01/21/25 01/21/25 01/21/25 07:59 15:59 23:59 Intake Total 229 / 229 Output Total 300 / 300 Balance -71 / -71 Intake: Intake, Oral Amount 229 / 229 Output: Output, Urine Amount 100 / 100 Output, Emesis Amount 200 / 200 Other: Weight 64.047 kg Patient Weight 01/21/25 23:59 Weight 64.047 kg Laboratory Results - last 24 hr 01/20/25 18:15: Troponin I 0.04 H 01/20/25 20:40: Troponin I 0.03 01/20/25 20:45: POC Glucose 111 H 01/21/25 02:21: Troponin I 0.04 H 01/21/25 05:44: WBC 6.8, RBC 3.29 L, Hgb 9.9 L D, Hct 29.7 L, MCV 90.3, MCH 29.5, MCHC 32.7, RDW 14.3, Plt Count 211 D, MPV 8.7, Neut % (Auto) 54.4, Lymph % (Auto) 32.8, [place] % (Auto) 9.7 H, Eos % (Auto) 1.9, Baso % (Auto) 0.6, Neut # (Auto) 3.7, Lymph # (Auto) 2.2, [place] # (Auto) 0.7, Eos # (Auto) 0.1, Baso # (Auto) 0.0, Sodium 132 L, Potassium 3.4 L D, Chloride 99, Carbon Dioxide 27, Anion Gap 9.4, BUN 35 H, Creatinine 1.20 H, Estimated Creat Clear 49, Estimated GFR 46 L, Est GFR ( Amer) 55 L, Glucose 128 H D, Calcium 9.4, Total Bilirubin 0.3, AST 26, ALT 17 D, Alkaline Phosphatase 99, Total Protein 6.8, Albumin 3.1 L D, Globulin 3.7 H, Albumin/Globulin Ratio 0.8 L 01/21/25 06:17: POC Glucose 137 H 01/21/25 10:16: POC Glucose 141 H 01/21/25 15:49: POC Glucose 89 I & O for Labs for Last 24 Hours: Intake & Output 01/18/25 01/19/25 01/20/25 01/21/25 23:59 23:59 23:59 23:59 Intake Total 480 / 709 229 / 229 Output Total 300 / 300 Balance 480 / 609 -71 / -71 Weight 64.864 kg 64.047 kg Constitutional: Present no acute distress, average body habitus, chronically ill appearing and cooperative Head: Present atraumatic and normocephalic ENT: Present normal exam Respiratory: Present normal respiratory effort; Absent rhonchi, wheezes or crackles Cardiac: Present Reg Rate and Rhythm GI: Present soft, distention, tenderness (Right upper quadrant) and normal bowel sounds Extremities: Present full ROM; Absent edema Comment:: 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 left foot with Charcot deformity, bandage in place. Skin: Present wounds; Absent erythema Neuro: Present Grossly Intact, alert, awake, oriented x 3 and moves all extremities Assessment and Plan *Assessment and plan (1) Chest pain: Status: Acute Category: Medical Code(s): R07.9 - Chest pain, unspecified (2) Nausea & vomiting: Status: Acute Category: Medical Code(s): R11.2 - Nausea with vomiting, unspecified (3) Diabetes mellitus: Status: Acute Qualifiers: Diabetes mellitus type: type 2 Category: Medical Code(s): E11.9 - Type 2 diabetes mellitus without complications (4) Chronic systolic heart failure: Status: Acute Category: Medical Code(s): I50.22 - Chronic systolic (congestive) heart failure (5) Abdominal pain: Status: Acute Category: Medical Code(s): R10.9 - Unspecified abdominal pain (6) Common bile duct dilation: Status: Acute Category: Medical Code(s): K83.8 - Other specified diseases of biliary tract (7) Cholelithiasis: Status: Acute Category: Medical Code(s): K80.20 - Calculus of gallbladder without cholecystitis without obstruction Plan Patient is a 64-year-old female with past medical history of hypertension hyperlipidemia CHF diabetes mellitus CAD who presents to the hospital due to chest tightness, abdominal pain nausea vomiting. According to the patient she has been having vomiting for past 3 days. Patient is also concerned about right upper quadrant abdominal pain, she is concerned she might have gallbladder inflammation. Patient otherwise denying fevers chills diarrhea constipation dysuria. Evaluated by surgery and cardiology today. Will have GI evaluate patient as well due to common bile duct dilation. MRCP pending. Continues to require inpatient management. Problems addressed as follows: Right upper quadrant abdominal pain Dilated common bile duct Cholelithiasis - White count 6.8, hemoglobin 9.9. Repeat CBC, CMP, magnesium ordered for the morning. - Sodium 132, potassium 3.4. BUN 35 and creatinine 1.2. Liver enzymes normal with bilirubin 0.3, AST 26, ALT 17, alk phos 99. - Per my review of right upper quadrant ultrasound, has enlarged common bile duct at 14 mm - Ordered MRCP to further evaluate. Formal read pending. Will have GI consult on patient tomorrow - Still having intermittent right upper quadrant pain and nausea. - Continue Zofran 4 mg as needed every 6 hours - Continue hydrocodone 5 mg every 8 hours as needed per home regimen along with morphine 2 mg IV every 2 hours as needed for breakthrough pain. Monitor for toxicity - Continue pantoprazole 40 mg nightly - General Surgery evaluated today, recommend holding on any type of surgical intervention. Does not appear to be in acute cholecystitis per discussion Heart failure with improved ejection fraction Hypertension Elevated troponin - continue spironolactone 25 mg daily, Plavix 75 mg daily, aspirin 81 mg daily, carvedilol 12.5 mg twice daily - Cardiology evaluated today, discussed case. Following recommendations: echo obtained showing normal BiV function. EKG with sinus rhythm and frequent PVCs. Troponin is flat at 0.04. Does not appear to have ACS. Continue DAPT therapy, statin, beta-albino. Type 2 diabetes Charcot foot Chronic osteomyelitis of left foot -Most recent A1c 2 months ago 5.3. Appears well-controlled. Continue Farxiga 10 mg daily, morning glucose 128 - Has chronic osteomyelitis. Follows with podiatry for left Charcot foot. Referred to orthopedics for amputation. Infection does not appear to be flaring at this time. Will continue to monitor and consult podiatry if symptoms recur or deemed to be an acute exacerbation. Otherwise we will follow with orthopedics as an outpatient to discuss surgery - Wound care to assist with bandaging Neuropathy: Continue gabapentin 300 mg 3 times a day Full liquid diet, n.p.o. at midnight Full code Lovenox 30 mg subcu once, will reevaluate DVT prophylaxis tomorrow after GI evaluation
--- NOTE | 2025-01-21 19:24 | CA_ITS ---
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40 cm2/m2 AoV Peak Alex. 184.0 (50-130 cm/s) AI PHT 446.00 ms AO Peak GR. 13.60 mmHg AO Mean GR. 7.10 (<5 mmHg) AO VTI 37.1 (18-25 cm) RODOLFO (VTI) 2.38 (2.5-4.5 cm2) Mitral Valve MV E Max Alex. 62.0 (40-130 cm/s) MV A Velocity 95.0 (40-130 cm/s) E/A Ratio 0.65 MV PHT 61.0 ms Pulmonary Valve PV Peak Velocity 82.0 (50-150 cm/s) Tricuspid Valve TR P. Velocity 157.00 cm/s RAP Estimate 10.00 mmHg RVSP 19.90 mmHg Left Ventricle The left ventricle is normal size. Left ventricular systolic function is normal. The left ventricular ejection fraction is within the normal range. There is increased left ventricular wall thickness. There is normal LV segmental wall motion. Transmitral Doppler flow pattern suggests impaired LV relaxation. LVEF is 60% Right Ventricle The right ventricle is mildly dilated. The right ventricular systolic function is normal. Atria The left atrium is mildly dilated. The right atrium is mildly dilated. There is no color Doppler evidence of interatrial shunt. Aortic Valve The aortic valve is mildly thickened. There is no hemodynamically significant aortic valvular stenosis. Trace aortic regurgitation is present. Mitral Valve The mitral valve is normal in structure. No evidence of mitral valve stenosis. Trace mitral regurgitation is present. Tricuspid Valve The tricuspid valve leaflets are thin and pliable. Trace tricuspid regurgitation. There is insufficient TR jet to estimate RVSP. Pulmonic Valve The pulmonary valve is grossly normal in structure. Trace pulmonic valve regurgitation is present. Great Vessels The aortic root is normal in size. IVC is normal in size and collapses >50% with inspiration. Pericardium There is no pericardial effusion. Other Information Study Quality: Fair Conclusion Normal biventricular systolic function. Mild RV dilation. Mild biatrial dilation. No significant valvular stenosis or regurgitation. Electronically signed by : Stefani Levine MD 01/21/2025 16:31:56
[2025-01-21 20:00] VITALS: BP 143/85; PULSE 70; PULSE 74; RESP 16; TEMP 36.5; O2SAT 99
[2025-01-21] MEDS: CARVEDILOL 12.5MG TABLET 12.5 MG PO (20:03)
[2025-01-21] MEDS: PANTOPRAZOLE 40MG TABLET 40 MG PO (20:03)
[2025-01-21] MEDS: ATORVASTATIN 40MG TABLET 40 MG PO (20:04)
[2025-01-21 20:51] LABS: POC Glucose,Bedside 176 (70-110)
[2025-01-22] VITALS (7 sets, daily range): BP systolic 91–153; BP diastolic 52–87; PULSE 60–74; RESP 16–18; TEMP 36.3–37; O2SAT 95–100; BMI 25.7
--- NOTE | 2025-01-22 02:16 | PC.NURSE ---
Pt AOx4, pleasant. Has had intermittent pain in abdomen. Pt states morphine IVP helps to resolve the pain. Pt has been NPO since 0000 for possible surgery in the AM. Pt is currently resting in bed with eyes closed. Respirations even and unlabored. Bed is low, locked, and call light is in reach.
[2025-01-22 05:28] LABS: POC Glucose,Bedside 101 (70-110)
[2025-01-22] MEDS: LEVOTHYROXINE 100MCG (0.1MG) TAB 200 MCG PO (06:25)
[2025-01-22 06:31] LABS: Hematocrit 29.9 % (37.0-47.0); Hemoglobin 9.9 g/dL (12.2-16.2); Immature Granulocytes % 0.6 %; Mean Corpuscular HGB Conc 33.1 g/dL (31.8-35.4); Mean Corpuscular Hemoglobin 29.6 pg (27.0-31.2); Mean Corpuscular Volume 89.5 fl (81-99); Nucleated Red Blood Cells % 0 %; Platelet Count 201 K/mm3 (142-424); Red Blood Count 3.34 M/mm3 (4.20-5.40); Red Cell Distribution Width-SD 45.7 fL; White Blood Count 5.1 K/mm3 (4.8-10.8)
[2025-01-22 06:34] LABS: Albumin Level 3.0 g/dl (3.5-5.0); Chloride 99 mmol/L (98-107); Potassium 3.9 mmoL/L (3.5-5.1); Sodium 131 mmol/L (136-145)
[2025-01-22 06:37] LABS: Alanine Aminotransferase 15 U/L (12-78); Albumin/Globulin Ratio 0.8 (1.1-1.8); Alkaline Phosphatase 88 U/L (38-126); Anion Gap 6.9 mEq/L (5-15); Aspartate Amino Transferase 26 U/L (14-36); Blood Urea Nitrogen 30 mg/dl (7-17); Calcium 9.4 mg/dl (8.4-10.2); Carbon Dioxide 29 mmol/L (22.0-30.0); Creatinine Clearance Estimated 49 mL/min (50-200); Creatinine,Serum 1.20 mg/dl (0.52-1.04); Estimated Glomerular Filt Rate 46 ml/min (>60); GFR (African American) 55 ML/MIN (>60); Globulin 3.6 g/dL (1.3-3.2); Glucose 90 mg/dl (74-100); Total Protein,Serum 6.6 g/dl (6.3-8.2)
[2025-01-22 06:38] LABS: Bilirubin,Total 0.1 mg/dl (0.2-1.3)
--- NOTE | 2025-01-22 07:11 | P.PN_ITS ---
Subjective Narrative: No new complaints. Patient wants some coffee. Subjectively some nausea. MRCP done yesterday, report still pending. Exam Data for Last 24 hours Vital signs and Labs for Last 24 Hours: Temp Pulse Resp BP Pulse Ox O2 Del Method 97.6 F 71 16 146/74 H 99 Room Air 01/22/25 04:00 01/22/25 04:00 01/22/25 04:00 01/22/25 04:00 01/22/25 04:00 01/22/25 06:32 Laboratory Results - last 24 hr 01/21/25 10:16: POC Glucose 141 H 01/21/25 15:49: POC Glucose 89 01/21/25 20:19: POC Glucose 176 H 01/22/25 05:18: POC Glucose 101 01/22/25 05:40: WBC 5.1, RBC 3.34 L, Hgb 9.9 L, Hct 29.9 L, MCV 89.5, MCH 29.6, MCHC 33.1, RDW 14.0, Plt Count 201, MPV 8.7, Neut % (Auto) 35.9 L, Lymph % (Auto) 51.4 H, [place] % (Auto) 8.8, Eos % (Auto) 2.7, Baso % (Auto) 0.6, Neut # (Auto) 1.8, Lymph # (Auto) 2.6, [place] # (Auto) 0.5, Eos # (Auto) 0.1, Baso # (Auto) 0.0, Sodium 131 L, Potassium 3.9, Chloride 99, Carbon Dioxide 29, Anion Gap 6.9, BUN 30 H, Creatinine 1.20 H, Estimated Creat Clear 49, Estimated GFR 46 L, Est GFR ( Amer) 55 L, Glucose 90 D, Calcium 9.4, Total Bilirubin 0.1 L, AST 26, ALT 15, Alkaline Phosphatase 88, Total Protein 6.6, Albumin 3.0 L, Globulin 3.6 H, Albumin/Globulin Ratio 0.8 L I & O for Last 24 hours: Intake & Output 01/19/25 01/20/25 01/21/25 01/22/25 11:59 11:59 11:59 11:59 Intake Total 709 / 709 270 / 270 Output Total 300 / 300 0 / 0 Balance 409 / 409 270 / 270 Weight 141 lb 3.2 oz 139 lb 8 oz *Routine Abdominal Exam Abdominal: Present soft Comments: Mild subjective tenderness Progress Note: A&P Assessment and plan (1) CAD (coronary atherosclerotic disease): Status: Acute (2) T2DM (type 2 diabetes mellitus): Status: Acute (3) Osteomyelitis: Status: Acute (4) History of amputation of right second toe: Status: Acute (5) Chronic systolic heart failure: Status: Acute (6) Nausea & vomiting: Status: Acute Assessment and plan: No evidence of acute gallbladder. MRCP report pending. Gastroenterology consult obtained.
[2025-01-22] MEDS: CLOPIDOGREL 75MG TAB 75 MG PO (09:03)
[2025-01-22] MEDS: ASPIRIN EC 81MG TABLET 81 MG PO (09:04)
[2025-01-22] MEDS: SENNA 8.6MG TABLET 17.2 MG PO (09:04)
[2025-01-22] MEDS: FOLIC ACID 1MG TABLET 1 MG PO (09:04)
[2025-01-22] MEDS: DAPAGLIFLOZIN PROPANEDIOL 10 MG TABLET PO (09:04)
[2025-01-22] MEDS: FERROUS SULFATE 325MG TABLET 325 MG PO (09:04)
[2025-01-22] MEDS: CITALOPRAM 20MG TABLET 20 MG PO (09:04)
[2025-01-22] MEDS: CARVEDILOL 12.5MG TABLET 12.5 MG PO ×2 (09:04→21:16)
[2025-01-22] MEDS: ALLOPURINOL 100MG TABLET 100 MG PO (09:04)
[2025-01-22] MEDS: SPIRONOLACTONE 25MG TABLET 25 MG PO (09:04)
[2025-01-22] MEDS: ONDANSETRON 4MG/2ML VIAL 4 MG IV ×3 (09:07→22:30)
[2025-01-22] MEDS: GABAPENTIN 300MG CAPSULE 300 MG PO ×3 (09:07→21:16)
[2025-01-22] MEDS: HYDROCODONE/APAP 5/325 MG TABLET 1 TAB PO ×2 (09:07→16:08)
[2025-01-22] MEDS: MORPHINE 2MG/ML SYRINGE 2 MG IV (12:29)
--- NOTE | 2025-01-22 13:30 | EXP.ACUTE.PN ---
Subjective *Date: 01/22/25 *Time: 16:41 Interval history: Patient complains of marginally improved nausea and right upper quadrant pain that is intermittent. Responds to pain medication and antiemetics. Stable on room air. Alert and oriented x 4. Afebrile. Medical Exam Vital signs and Labs for Last 24 Hours: Vital Signs Temp Pulse Pulse Resp BP Pulse Ox O2 Del Method 01/22/25 12:00 97.7 F 68 16 146/78 H 100 Room Air 01/22/25 11:00 Room Air 01/22/25 08:04 Room Air 01/22/25 08:00 97.3 F L 65 16 153/67 H 100 Room Air 01/22/25 07:59 Room Air 01/22/25 06:32 Room Air 01/22/25 05:00 Room Air 01/22/25 04:00 97.6 F 71 16 146/74 H 99 Room Air 01/22/25 04:00 65 01/22/25 03:00 Room Air 01/22/25 01:00 Room Air 01/22/25 00:00 65 01/22/25 00:00 97.6 F 71 16 91/52 L 96 Room Air 01/21/25 23:00 Room Air 01/21/25 21:00 Room Air 01/21/25 20:00 70 01/21/25 20:00 Room Air 01/21/25 20:00 97.7 F 74 16 143/85 H 99 Room Air 01/21/25 18:28 Room Air 01/21/25 17:00 Room Air 01/21/25 16:00 76 16 167/82 H 100 Room Air Intake and Output 01/21/25 01/22/25 01/22/25 23:59 07:59 15:59 Intake Total 270 / 499 Output Total 0 / 300 0 / 0 0 / 0 Balance 270 / 199 0 / 0 0 / 0 Intake: Intake, Oral Amount 270 / 499 Output: Output, Urine Amount 0 / 100 0 / 0 0 / 0 Other: Number of Unmeasured Voids 1 1 1 Weight 63.276 kg Patient Weight 01/22/25 23:59 Weight 63.276 kg Laboratory Results - last 24 hr 01/21/25 15:49: POC Glucose 89 01/21/25 20:19: POC Glucose 176 H 01/22/25 05:18: POC Glucose 101 01/22/25 05:40: WBC 5.1, RBC 3.34 L, Hgb 9.9 L, Hct 29.9 L, MCV 89.5, MCH 29.6, MCHC 33.1, RDW 14.0, Plt Count 201, MPV 8.7, Neut % (Auto) 35.9 L, Lymph % (Auto) 51.4 H, [place] % (Auto) 8.8, Eos % (Auto) 2.7, Baso % (Auto) 0.6, Neut # (Auto) 1.8, Lymph # (Auto) 2.6, [place] # (Auto) 0.5, Eos # (Auto) 0.1, Baso # (Auto) 0.0, Sodium 131 L, Potassium 3.9, Chloride 99, Carbon Dioxide 29, Anion Gap 6.9, BUN 30 H, Creatinine 1.20 H, Estimated Creat Clear 49, Estimated GFR 46 L, Est GFR ( Amer) 55 L, Glucose 90 D, Calcium 9.4, Total Bilirubin 0.1 L, AST 26, ALT 15, Alkaline Phosphatase 88, Total Protein 6.6, Albumin 3.0 L, Globulin 3.6 H, Albumin/Globulin Ratio 0.8 L I & O for Labs for Last 24 Hours: Intake & Output 01/19/25 01/20/25 01/21/25 01/22/25 23:59 23:59 23:59 23:59 Intake Total 480 / 709 499 / 499 Output Total 300 / 300 0 / 0 Balance 480 / 609 199 / 199 0 / 0 Weight 64.864 kg 64.047 kg 63.276 kg Constitutional: Present no acute distress, average body habitus, chronically ill appearing and cooperative Head: Present atraumatic and normocephalic ENT: Present normal exam Respiratory: Present normal respiratory effort; Absent rhonchi, wheezes or crackles Cardiac: Present Reg Rate and Rhythm GI: Present soft, distention, tenderness (Right upper quadrant) and normal bowel sounds Extremities: Present full ROM; Absent edema Comment:: 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 left foot with Charcot deformity, bandage in place. Skin: Present wounds; Absent erythema Neuro: Present Grossly Intact, alert, awake, oriented x 3 and moves all extremities Assessment and Plan *Assessment and plan (1) Chest pain: Status: Acute Category: Medical Code(s): R07.9 - Chest pain, unspecified (2) Nausea & vomiting: Status: Acute Category: Medical Code(s): R11.2 - Nausea with vomiting, unspecified (3) Diabetes mellitus: Status: Acute Qualifiers: Diabetes mellitus type: type 2 Category: Medical Code(s): E11.9 - Type 2 diabetes mellitus without complications (4) Chronic systolic heart failure: Status: Acute Category: Medical Code(s): I50.22 - Chronic systolic (congestive) heart failure (5) Abdominal pain: Status: Acute Category: Medical Code(s): R10.9 - Unspecified abdominal pain (6) Common bile duct dilation: Status: Acute Category: Medical Code(s): K83.8 - Other specified diseases of biliary tract (7) Cholelithiasis: Status: Acute Category: Medical Code(s): K80.20 - Calculus of gallbladder without cholecystitis without obstruction Plan Patient is a 64-year-old female with past medical history of hypertension hyperlipidemia CHF diabetes mellitus CAD who presents to the hospital due to chest tightness, abdominal pain nausea vomiting. According to the patient she has been having vomiting for past 3 days. Patient is also concerned about right upper quadrant abdominal pain, she is concerned she might have gallbladder inflammation. Patient otherwise denying fevers chills diarrhea constipation dysuria. Eval waited by GI today. MRCP result returned showing dilation but no clear obstruction. Will advance diet. Potential discharge in the morning if symptoms improving. Problems addressed as follows: Right upper quadrant abdominal pain Dilated common bile duct Cholelithiasis -White count normal at 5.1, hemoglobin 9.9. Repeat CBC, CMP, magnesium ordered for the morning. -Electrolytes stable with sodium 131, potassium 3.9, chloride 99. Kidney function stable with BUN 30, creatinine 1.2. Liver enzymes remain within normal range - Discussed case with GI this morning. After review of MRCP showing dilated CBD at 14 mm with no obvious choledocholithiasis, recommend monitoring patient with advancement of diet. If does well with no bump in liver enzymes, would recommend close follow-up as an outpatient to discuss ERCP in the coming weeks. Also recommend MiraLAX and Metamucil daily for her chronic constipation. - Continue Zofran 4 mg as needed every 6 hours - Continue hydrocodone 5 mg every 8 hours as needed per home regimen along with morphine 2 mg IV every 2 hours as needed for breakthrough pain. Monitor for toxicity - Continue pantoprazole 40 mg nightly -MiraLAX twice daily, docusate/senna once daily. Heart failure with improved ejection fraction Hypertension Elevated troponin - continue spironolactone 25 mg daily, Plavix 75 mg daily, aspirin 81 mg daily, carvedilol 12.5 mg twice daily -Per discussion with cardiology yesterday, no concern for acute ACS. Continue DAPT therapy, statin, beta-albino. Type 2 diabetes Charcot foot Chronic osteomyelitis of left foot - Most recent A1c 2 months ago 5.3. Appears well-controlled. Continue Farxiga 10 mg daily, morning glucose 90 - Has chronic osteomyelitis. Follows with podiatry for left Charcot foot. Referred to orthopedics for amputation. Infection does not appear to be flaring at this time. Will continue to monitor and consult podiatry if symptoms recur or deemed to be an acute exacerbation. Otherwise we will follow with orthopedics as an outpatient to discuss surgery - Wound care to assist with bandaging Neuropathy: Continue gabapentin 300 mg 3 times a day Diabetic diet Full code Lovenox 40 mg subcu once
--- NOTE | 2025-01-22 13:47 | EXP.MED.FU ---
Subjective *Date: 01/22/25 *Time: 13:47 Interval history: Patient lying comfortably in bed. Still has some mild abdominal discomfort across her upper abdomen but some moderate bloating and distention. She has not had a bowel movement in a couple of days. Had some minor diarrhea on Tuesday but then had not had a bowel movement for couple days prior to that. MRCP results note dilated CBD at 14 mm but no evidence of choledocholithiasis. LFTs are all within normal limits today. Patient has been able to tolerate some p.o. fluids and does feel better on nausea medication Exam Data for Last 24 hours Vital signs and Labs for Last 24 Hours: Temp Pulse Resp BP Pulse Ox O2 Del Method 97.7 F 68 16 146/78 H 100 Room Air 01/22/25 12:00 01/22/25 12:00 01/22/25 12:00 01/22/25 12:00 01/22/25 12:00 01/22/25 12:00 Laboratory Results - last 24 hr 01/21/25 15:49: POC Glucose 89 01/21/25 20:19: POC Glucose 176 H 01/22/25 05:18: POC Glucose 101 01/22/25 05:40: WBC 5.1, RBC 3.34 L, Hgb 9.9 L, Hct 29.9 L, MCV 89.5, MCH 29.6, MCHC 33.1, RDW 14.0, Plt Count 201, MPV 8.7, Neut % (Auto) 35.9 L, Lymph % (Auto) 51.4 H, [place] % (Auto) 8.8, Eos % (Auto) 2.7, Baso % (Auto) 0.6, Neut # (Auto) 1.8, Lymph # (Auto) 2.6, [place] # (Auto) 0.5, Eos # (Auto) 0.1, Baso # (Auto) 0.0, Sodium 131 L, Potassium 3.9, Chloride 99, Carbon Dioxide 29, Anion Gap 6.9, BUN 30 H, Creatinine 1.20 H, Estimated Creat Clear 49, Estimated GFR 46 L, Est GFR ( Amer) 55 L, Glucose 90 D, Calcium 9.4, Total Bilirubin 0.1 L, AST 26, ALT 15, Alkaline Phosphatase 88, Total Protein 6.6, Albumin 3.0 L, Globulin 3.6 H, Albumin/Globulin Ratio 0.8 L I & O for Last 24 hours: Intake & Output 01/20/25 01/21/25 01/22/25 01/23/25 11:59 11:59 11:59 11:59 Intake Total 709 270 Output Total 300 0 Balance 409 270 Weight 64.047 kg 63.276 kg Constitutional Constitutional: no acute distress and cooperative *Routine HEENT Exam Head: Present normocephalic and atraumatic *Routine Respiratory Exam Respiratory: Present CTA bilaterally *Routine Cardiovascular Exam Cardiovascular: Present RRR *Routine Abdominal Exam Abdominal: Present tenderness (Tender to palpation right lower quadrant right upper quadrant epigastric and left upper quadrant but improved since yesterday) and distended (Moderate distention with gas bloat) *Routine Skin Exam Skin: Present intact *Routine Neurological Exam Neurological: Present alert and oriented X3 Assessment and Plan *Assessment and plan (1) Common bile duct dilation: Status: Acute Category: Medical Code(s): K83.8 - Other specified diseases of biliary tract (2) Nausea & vomiting: Status: Acute Category: Medical Code(s): R11.2 - Nausea with vomiting, unspecified (3) Abdominal pain: Status: Acute Category: Medical Code(s): R10.9 - Unspecified abdominal pain Plan 1. Nausea/vomiting/abdominal pain/chest pain/CBD dilation/cholelithiasis Did have cholelithiasis and CBD dilation at 12 mm. MRCP notes dilated CBD at 14 mm but no obvious choledocholithiasis. Discussed with Dr. Pike who feels like there may be questionable filling defect at the level of the hilum on MRCP. However, she has had normal liver enzymes for a couple of days. She did have a slight bump in her alk phos 2 days ago. If the patient is able to eat and drink appropriately and can go home, I am happy to see her as an outpatient within 1-2 weeks and we can recheck those liver enzymes to see if that alk phos elevation was a single isolated event. I recommend MiraLAX and Metamucil every day to keep her bowels moving. If she still having that right upper quadrant discomfort may consider outpatient ERCP.
--- OUTSIDE RECORDS SUMMARY | 2025-01-22 14:03 | XMS_ITS | Continuity of Care Document ---
Author Organization [facility]. If a dditional information is needed, contact Health Information Management at [phone] Address [address] [place] [address] Phone Care Team Providers Care Lithoduplicator Operator Name Role Phone Unavailable Unavailable Unavailable Encounters pre-admission 06-Sep-2023 11:21 Neo Boles (Attending) Collette
--- OUTSIDE RECORDS SUMMARY | 2025-01-22 14:13 | XMS_ITS | Clinical Summary ---
Author Organization [employer] ([place], [place], [place], [place]) Address [address] [place] [id number] Care Team Providers Care Temporary Administrative Assistant Name Role Phone Unavailable Primary Care [...]
--- OUTSIDE RECORDS SUMMARY | 2025-01-22 14:13 | XMS_ITS | Encounter Summary ---
Author Organization [employer] ([place], [place], [place], [place]) Address [address] [place] [address] Care Team Providers Care Production Control Specialist Name Role Phone Unavailable Primary Care Provider Unavailabl e Encounter Details Date Type Department Care Team (Late st Contact Info) Description 03/22/2019 Transcribed Document [facility] [place] [facility] [place] [address] ProviderJace MD [facility] [place] [address] Social History Tobacco Use Types [...] Ventura MD - 03/22/2019 4:38 PM CDT [facility] [place] [address] MICHELINE HERNANDEZ :1960 Visit Time:03/22/2019 [...] Within 3 to 5 days Where: [address] [place] [address] Business (1) Follow Up with Patient Resource [...] Within 2 to 3 days Where: [address] [place] [address] [facility] (1) Allergies No Known Allergies Immunizations [...] range between ( 0.0 and 7.0 ) [place] #: 0.54 K/uL -- Normal range between ( 0.16 and 1.00 ) [place]os #: 0.28 x10(3)/uL -- Normal range between ( 0.00 and 0.80 ) [place] %: 6.3 % -- Normal range between [...] /LPF Urine Bilirubin Dipstick: Negative Urine Specific [place]: 1.009 -- Normal range between ( 1.005 [...] treat less common causes of UTI. ??? Odeg-moi-trjjaoy medicines to treat pain. ??? Drinking enough water to stay hydrated. Follow these instructions at home: ??? Take hogs-qxj-vfcqtja and prescription medicines only as told by [...] 03/16/2006 Document Revised: 11/29/2017 Document Reviewed: 04/26/2016 [employer] Patient Education ?? 2019 [employer] Nonspecific Chest Pain Chest pain can [...] you start to feel better. ??? Take xuqu-qga-dqycyhe and prescription medicines only as told by [...] 03/16/2006 Document Revised: 02/28/2017 Document Reviewed: 02/28/2017 [employer] Patient Education ?? 2019 [employer]. Emergency Awareness and Preventative Care STROKE is [...] Assistance with quitting is available by contacting 3-467-BEJP-NOW. This is a free resource providing counseling, [...] was given the opportunity to ask questions. Patient/Channeler Insole Name: Patient/Channeler Insole Signature: Relationship to Patient: Clinician/Hospital Channeler Insole Signature: Please Provide a Telephone Number Where You Can Be Reached: Is it Permissible To Leave a Message? Date: documented in this encounter Plan of Treatment Not on file documented as of this encounter Visit Diagnoses Not on filedocumented in this encounter
--- OUTSIDE RECORDS SUMMARY | 2025-01-22 14:13 | XMS_ITS | Encounter Summary ---
Author Organization [employer] ([place], [place], [place], [place]) Address [address] [place] [address] Care Team Providers Care Mercury Purifier Name Role Phone Unavailable Primary Care Provider Unavailabl e Encounter Details Date Type Department Care Team (Late st Contact Info) Description 03/22/2019 Transcribed Document [facility] [place] [facility] [address] ProviderJace [place] [address] Social History Tobacco Use Types [...] Historical ProviderMD - 03/22/2019 4:43 PM CDT [facility] [address] Visit Date/Time: 03/22/2019 16:43:59 MICHELINE HUBER The above patient was seen in the hospital today and needs to be excused from work/school until Return to Work/School Date:03/24/2019 Electronically signed by [facility] [employer] Smelter Charger [employer]ner at 10/06/2022 1:03 PM CDT documented in this encounter Plan of Treatment Not on file documented as of this encounter Visit Diagnoses Not on filedocumented in this encounter
--- OUTSIDE RECORDS SUMMARY | 2025-01-22 14:13 | XMS_ITS | Encounter Summary ---
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 : No Thoughts of Harming/Killing Yourself : No Recent Thoughts of Harming/Killing Others : No Can Patcher Needed : No Cornelia Baird RN - [...] Estimated Onset Date: Unspecified ; Created By: ContributorGenOilsystem HIST_Dimeres; Reaction Status: Active ; Category: Drug ; Substance: No Known Allergies ; Type: Allergy ; Updated By: Contributor_system HIST_MineWhatTK; Reviewed Date: 03/22/2019 11:38 EDT Diagnosis Control ED (As Of: 03/22/2019 11:43:15 EDT) Problems(Active) A-fib (SNOMED CT :86760149 ) Name of Problem: A-fib ; Recorder: Isaac Dacosta Rn; Confirmation: Confirmed ; Classification: Patient Stated ; Code: 75168950 ; Contributor System: Learnerator ; Last Updated: 12/23/2014 17:58 EDT ; Life Cycle Date: 12/23/2014 ; Life Cycle Status: Active ; Vocabulary: SNOMED CT Arthritis (SNOMED CT :7835532 ) Name of Problem: Arthritis ; Recorder: Isaac Dacosta Rn; Confirmation: Confirmed ; Classification: Patient Stated ; Code: 8074932 ; Contributor System: Learnerator ; Last Updated: 12/23/2014 18:35 EDT ; Life Cycle Date: 12/23/2014 ; Life Cycle Status: Active ; Vocabulary: SNOMED CT Back pain, chronic (SNOMED CT :308789548 ) Name of Problem: Back pain, chronic ; Recorder: ARMANDO CASTRO RN; Confirmation: Confirmed ; Classification: Patient Stated ; Code: 108251953 ; Contributor System: PowerChart ; Last Updated: 06/17/2017 10:09 EST ; Life Cycle Date: 06/17/2017 ; Life Cycle Status: Active ; Vocabulary: SNOMED CT CAD (coronary artery disease) (SNOMED CT :72809951 ) Name of Problem: CAD (coronary artery disease) ; Recorder: Isaac Dacosta Rn; Confirmation: Confirmed ; Classification: Patient Stated ; Code: 42899947 ; Contributor System: PowerChart ; Last Updated: 12/23/2014 17:58 EDT ; Life Cycle Date: 12/23/2014 ; Life Cycle Status: Active ; Vocabulary: SNOMED CT Cardiomyopathy (SNOMED CT :164482093 ) Name of Problem: Cardiomyopathy ; Recorder: ARMANDO CASTRO RN; Confirmation: Confirmed ; Classification: Patient Stated ; Code: 816971405 ; Contributor System: PowerChart ; Last Updated: 06/17/2017 10:07 EST ; Life Cycle Date: 06/17/2017 ; Life Cycle Status: Active ; Vocabulary: SNOMED CT Carotid artery stenosis (SNOMED CT :319472853 ) Name of Problem: Carotid artery stenosis ; Recorder: ARMANDO CASTRO RN; Confirmation: Confirmed ; Classification: Patient Stated ; Code: 172391024 ; Contributor System: PowerChart ; Last Updated: 06/17/2017 10:08 EST ; Life Cycle Date: 06/17/2017 ; Life Cycle Status: Active ; Vocabulary: SNOMED CT Carpal tunnel syndrome (SNOMED CT :39162961 ) Name of Problem: Carpal tunnel syndrome ; Recorder: Isaac Dacosta Rn; Confirmation: Confirmed ; Classification: Patient Stated ; Code: 58363080 ; Contributor System: PowerChart ; Last Updated: 12/23/2014 18:34 EDT ; Life Cycle Date: 12/23/2014 ; Life Cycle Status: Active ; Vocabulary: SNOMED CT Chronic anxiety (SNOMED CT :838358729 ) Name of Problem: Chronic anxiety ; Recorder: ARMANDO CASTRO RN; Confirmation: Confirmed ; Classification: Patient Stated ; Code: 965767120 ; Contributor System: PowerChart ; Last Updated: 06/17/2017 10:11 EST ; Life Cycle Date: 06/17/2017 ; Life Cycle Status: Active ; Vocabulary: SNOMED CT Chronic depression (SNOMED CT :084258046 ) Name of Problem: Chronic depression ; Recorder: ARMANDO CASTRO RN; Confirmation: Confirmed ; Classification: Patient Stated ; Code: 878097603 ; Contributor System: OradChart ; Last Updated: 06/17/2017 10:11 EST ; Life Cycle Date: 06/17/2017 ; Life Cycle Status: Active ; Vocabulary: SNOMED CT Cigarette smoker (SNOMED CT :089824517 ) Name of Problem: Cigarette smoker ; Recorder: Isaac Dacosta Rn; Confirmation: Confirmed ; Classification: Patient Stated ; Code: 714702010 ; Contributor System: PowerChart ; Last Updated: 12/23/2014 18:36 EDT ; Life Cycle Date: 12/23/2014 ; Life Cycle Status: Active ; Vocabulary: SNOMED CT Diabetes (SNOMED CT :988088557 ) Name of Problem: Diabetes ; Recorder: Isaac Dacosta Rn; Confirmation: Confirmed ; Classification: Patient Stated ; Code: 910343598 ; Contributor System: PowerChart ; Last Updated: 12/23/2014 17:57 EDT ; Life Cycle Date: 12/23/2014 ; Life Cycle Status: Active ; Vocabulary: SNOMED CT Diabetic peripheral neuropathy (SNOMED CT :7351787083 ) Name of Problem: Diabetic peripheral neuropathy ; Recorder: Isaac Dacosta Rn; Confirmation: Confirmed ; Classification: Patient Stated ; Code: 5841424085 ; Contributor System: PowerChart ; Last Updated: 12/23/2014 18:35 EDT ; Life Cycle Date: 12/23/2014 ; Life Cycle Status: Active ; Vocabulary: SNOMED CT GERD - Gastro-esophageal reflux disease (SNOMED CT :0573596947 ) Name of Problem: GERD - Gastro-esophageal reflux disease ; Recorder: ARMANDO CASTRO RN; Confirmation: Confirmed ; Classification: Patient Stated ; Code: 4826191152 ; Contributor System: PowerChart ; Last Updated: 06/17/2017 10:09 EST ; Life Cycle Date: 06/17/2017 ; Life Cycle Status: Active ; Vocabulary: SNOMED CT HLD (hyperlipidemia) (SNOMED CT :06825962 ) Name of Problem: HLD (hyperlipidemia) ; Recorder: Isaac Dacosta Rn; Confirmation: Confirmed ; Classification: Patient Stated ; Code: 84397893 ; Contributor System: PowerChart ; Last Updated: 12/23/2014 17:58 EDT ; Life Cycle Date: 12/23/2014 ; Life Cycle Status: Active ; Vocabulary: SNOMED CT HTN (hypertension) (SNOMED CT :1526836354 ) Name of Problem: HTN (hypertension) ; Recorder: Isaac Dacosta Rn; Confirmation: Confirmed ; Classification: Patient Stated ; Code: 3432813737 ; Contributor System: PowerChart ; Last Updated: 12/23/2014 17:58 EDT ; Life Cycle Date: 12/23/2014 ; Life Cycle Status: Active ; Vocabulary: SNOMED CT Hypothyroid (SNOMED CT :27053653 ) Name of Problem: Hypothyroid ; Recorder: Isaac Dacosta Rn; Confirmation: Confirmed ; Classification: Patient Stated ; Code: 98645235 ; Contributor System: PowerChart ; Last Updated: 12/23/2014 18:33 EDT ; Life Cycle Date: 12/23/2014 ; Life Cycle Status: Active ; Vocabulary: SNOMED CT [place] (SNOMED CT :907219000 ) Name of Problem: [place] ; Recorder: Isaac Dacosta Rn; Confirmation: Confirmed ; Classification: Patient Stated ; Code: 610791964 ; Contributor System: PowerChart ; Last Updated: 12/23/2014 17:57 EDT ; Life Cycle Date: 12/23/2014 ; Life Cycle Status: Active ; Vocabulary: SNOMED CT Obesity (SNOMED CT :4504167177 ) Name of Problem: Obesity ; Recorder: Isaac Dacosta Rn; Confirmation: Confirmed ; Classification: Patient Stated ; Code: 0504022464 ; Contributor System: PowerChart ; Last Updated: 12/23/2014 18:34 EDT ; Life Cycle Date: 12/23/2014 ; Life Cycle Status: Active ; Vocabulary: SNOMED CT Post-menopause (SNOMED CT :758920491 ) Name of Problem: Post-menopause ; Recorder: Isaac Dacosta Rn; Confirmation: Confirmed ; Classification: Patient Stated ; Code: 049028226 ; Contributor System: PowerChart ; Last Updated: 12/23/2014 18:35 EDT ; Life Cycle Date: 12/23/2014 ; Life Cycle Status: Active ; Vocabulary: SNOMED CT Sleep apnea (SNOMED CT :082885858 ) Name of Problem: Sleep apnea ; Recorder: ARMANDO CASTRO RN; Confirmation: Confirmed ; Classification: Patient Stated ; Code: 021252096 ; Contributor System: Learnerator ; Last Updated: 06/17/2017 10:09 EST ; Life Cycle Date: 06/17/2017 ; Life Cycle Status: Active ; Vocabulary: SNOMED CT Syncope (SNOMED CT :820516468 ) Name of Problem: Syncope ; Recorder: ARMANDO CASTRO RN; Confirmation: Confirmed ; Classification: Patient Stated ; Code: 465777537 ; Contributor System: Learnerator ; Last Updated: 06/17/2017 10:08 EST ; Life Cycle Date: 06/17/2017 ; Life Cycle Status: Active ; Vocabulary: SNOMED CT Diagnoses(Active) Chest pain Date: 03/22/2019 ; Diagnosis Type: Reason For Visit ; Confirmation: Complaint of ; Clinical Dx: Chest pain ; Classification: Medical ; Clinical Service: Emergency medicine ; Code: PNED ; Probability: 0 ; Diagnosis Code: [id number] ED Height and Weight Height Source : Stated Height Entry Format : [place] Height, Feet : 5 ft(Converted to: 152 cm, 60 Inch) Height, Inches : 2 Inch(Converted to: 0 ft 2 Inch, 5.08 cm) Clinical Height : 157.48 cm Weight Source, ED : Critical estimated dosing weight Weight Entry Format : [place] Weight, Pounds : 183 lb Clinical Dosing Weight : 83.18 kg Body Surface Area (BSA) : 1.84 m2 Body Mass Index : 33.5 kg/m2 (HI) Rowe Body Weight (IBW) : 49.73 kg Cornelia Baird RN - 03/22/2019 11:36 EDT Electronically signed by Janie Manriquez Conversion Application Development Intern Cerner at 10/06/2022 1:01 PM CDT documented in this encounter Plan of Treatment Not on file documented as of this encounter Visit Diagnoses Not on filedocumented in this encounter
--- OUTSIDE RECORDS SUMMARY | 2025-01-22 14:13 | XMS_ITS | Encounter Summary ---
Author Organization [employer] ([place], [place], [place], [place]) Address [address] [place] [address] Care Team Providers Care Exotic Dancer Name Role Phone Unavailable Primary Care Provider Unavailabl e Encounter Details Date Type Department Care Team (Late st Contact Info) Description 03/23/2019 Transcribed Document [facility] [place] [facility] [place] [address] ProviderJace MD [facility] [place] [address] Social History Tobacco Use Types [...] acute Electronically signed by Janie Manriquez Conversion Senior Solutions Consultant Cerner at 10/06/2022 1:10 PM CDT documented in this encounter Plan of Treatment Not on file documented as of this encounter Visit Diagnoses Not on filedocumented in this encounter
--- OUTSIDE RECORDS SUMMARY | 2025-01-22 14:13 | XMS_ITS | Encounter Summary ---
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 History of Present Illness The patient [...] reflux disease HLD (hyperlipidemia) HTN (hypertension) Hypothyroid [place] Obesity Post-menopause Sleep apnea Syncope , per [...] EDT Height Source Stated Height Entry Format [place] Height/Length, CHINESE (ft) 5 ft Height/Length CHINESE 2 Inch CLINICALHEIGHT 157.48 cm [place] Body Weight 49.73 kg Weight Source, ED Critical estimated dosing weight Weight Entry Format [place] Weight Northern Irish lb 183 lb CLINICALWEIGHT 83.18 kg Body [...] ED Adult Triage: ED Clinical Reconciliation: ED mold stripper: Lipase Level: Normal Saline Flush: 10 mL, IV Push, See Comment ProBNP: Saline Lock Insert: Troponin I Ultra: Troponin I Ultra: Urinalysis w Culture if Indicated: . Electrocardiogram: Time 03/22/2019 11:39:00, rate 88, normal sinus rhythm, No ST changes, no ectopy, normal IL & QRS intervals, EP Interp. Electrocardiogram: Time 03/22/2019 15:41:00, rate 75, normal sinus rhythm, No ST changes, no ectopy, normal IL & QRS intervals, EP Interp. awake overnight monitor: Normal sinus rhythm. Results review: All [...] % 38.9 % Lymph # 3.35 x10(3)/uL [place] % 6.3 % [place] # 0.54 K/uL Eos % 3.2 % Eos # 0.28 x10(3)/uL Baso % 0.6 % Baso # 0.05 x10(3)/uL Slide Review No IG# 0.05 x10(3)/uL IG% 0.60 % 03/22/2019 12:20 EDT Urine Type. U CleanCatch Urine Color Yellow Urine Appearance Clear Urine Specific [place] 1.009 Urine pH Dipstick 6.0 Urine Leukocyte Esterase Moderate Urine Nitrite Negative Urine Protein Dipstick Negative Urine Glucose Dipstick 100 Urine Ketones Dipstick Negative Urine Urobilinogen Dipstick 0.2 EU/dL Urine Bilirubin Dipstick Negative Urine Blood Dipstick Negative Ur WBC 10-20 /HPF Ur Bacteria 3+ Ur Epithelial Cells 10-20 /HPF Ur Hyaline Casts 10-20 /LPF . Radiology results: Radiology Results (Last 48 hours) [id number] -- 03/22/2019 11:35 CR Chest 1 Vw [...] to: Time: 03/22/2019 16:06:00, GIL PHILLIPS PA-C, 4107 Patient feeling well. Reports no chest pain and no abdomen pain. She had the pain she had this morning yesterday also. She had sausage this morning before this pain and vomiting. Abdomen soft/some epigastric tenderness. No guarding. She has not see cardiology in over 3 years. Advised f/u PCP and cardiology.. Prescriptions: Prescription Print Project Manager Pharmacy: Macrobid 100 mg oral capsule (Prescribe): [...] of instructions. Notes: I certify that the MLP/PRESCRIPTION EYEGLASS MAKER performed the services as delegated. . documented in this encounter Plan of Treatment Not on file documented as of this encounter Visit Diagnoses Not on filedocumented in this encounter
--- OUTSIDE RECORDS SUMMARY | 2025-01-22 14:13 | XMS_ITS | Encounter Summary ---
Author Organization [email or web address] ([place], [place], [place], [place]) Address [address] [place] [address] Care Team Providers Care Airline Pilot/First Officer Name Role Phone Unavailable Primary Care Provider Unavailabl e Encounter Details Date Type Department Care Team (Late st Contact Info) Description 03/22/2019 Transcribed Document [facility] [place] Family Medicine [facility] [place] [address] ProviderJace MD [address] [place] [address] Social History Tobacco Use Types Packs/Day [...] Communication Barrier : None Primary Language : Slovak Any Spiritual/Cultural Needs or Requests : No [...] (Comment: 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
--- OUTSIDE RECORDS SUMMARY | 2025-01-22 14:13 | XMS_ITS | Encounter Summary ---
Author Organization [employer] ([place], [place], [place], [place]) Address [address] [place] [address] Care Team Providers Care Land Acquisition Manager Name Role Phone Unavailable Primary Care Provider Unavailabl e Encounter Details Date Type Department Care Team (Late st Contact Info) Description 03/25/2019 Transcribed Document [facility] [place] Family Medicine [facility] [place] [address] ProviderJace MD [address] [place], [place] [address] Social History Tobacco Use Types Packs/Day Years [...]
--- OUTSIDE RECORDS SUMMARY | 2025-01-22 14:13 | XMS_ITS | Encounter Summary ---
Author Organization [employer] ([place], [place], [place], [place]) Address [address] [place] [address] Care Team Providers Care Customer Solutions Supervisor Name Role Phone Unavailable Primary Care Provider Unavailabl e Encounter Details Date Type Department Care Team (Late st Contact Info) Description 03/22/2019 Transcribed Document [facility] [place] Family Medicine [facility] [place] [address] ProviderJace MD [facility] [place], [place] [address] Social History Tobacco Use Types Packs/Day Years [...]
--- OUTSIDE RECORDS SUMMARY | 2025-01-22 14:13 | XMS_ITS | Encounter Summary ---
Author Organization [employer] ([place], [place], [place], [place]) Address [address] [place] [address] Care Team Providers Care Entertainment & Media Correspondent Name Role Phone Unavailable Primary Care Provider Unavailabl e Encounter Details Date Type Department Care Team (Late st Contact Info) Description 03/22/2019 Transcribed Document [facility] [place] Medicine [facility] [place] [address] ProviderJace MD [facility] [place] [place] [address] Social History Tobacco Use Types [...] 4:33 PM CDT Electronically signed by Mitra [facility] Conversion Cabbage Salter Cerner at 10/06/2022 1:00 PM CDT documented in this encounter Plan of Treatment Not on file documented as of this encounter Visit Diagnoses Not on filedocumented in this encounter
--- OUTSIDE RECORDS SUMMARY | 2025-01-22 14:13 | XMS_ITS | Clinical Summary ---
Author Organization [facility] Address [address] [place] [address] Care Team Providers Care Truck Driver Salesperson Name Role Phone Carmen Ramos Sterling APRN Primary Care Provider [phone] Allergies Active Allergy Reactions Criticality Noted Date [...] by mouth every evening. Active HYDROcodone-ac etaminophen ([place]) 10-325 MG tablet Take 1 tablet (10 [...] nightly 30 g 4 Active nystatin (Mycostatin) 275055 UNIT/GM powder Apply twice a day to [...] by mouth every 6 (six) hours. Under [place] law, monthly prescriptions (30 days) can be [...] (06/26/2024): Added automatically from request for surgery [id number] S/P coronary artery stent placement 06/20/2014 Resolved Problems Problem Noted Date Diagnosed Date Resolved Date Cellulitis of foot 05/29/2024 4 Encounters Date Type Department Care Team Description 11/27/2024 Telephone [place] [facility] [address] [facility] [place] [facility] [address] [place] [address] Scotty Truong MD from Last [...] time in the past 12 m [facility], were you homeless or living in a custodial (including now)? Patient unable to answer 08/29/2024 Utilities Answer Date Recorded In the past 12 months has th e [employer], gas, oil, or water company threatened to [...] Cancer Screening 09/03/2007 [facility]-Breast Cancer Screening 2012 [id number] Vaccine (3 - Pfizer risk series) 11/03/2020 [...] Ha, RN Medical Devices Implanted Type Area Sales Warehouse Driver Device Identifier Shelf Expiration Date Model / [...] Reactive Non Reactive 09/24/2024 3:46 PM EDT [facility] Comment:Screening for HIV 1 & 2 antibodies, and P24 antigen is NONREACTIVE. No confirmatory testing is required. Blood Venous blood specimen / Unknown Venipuncture / Unknown 09/24/2024 2:51 PM EDT 09/24/2024 3:06 PM EDT us Rohit Patel MD LAB BLOOD ORDERABLES Final Result [facility] [address] [place] [address] * (ABNORMAL) Hemoglobin A1c (08/27/2024 9:15 PM EDT) Hemoglobin A1c 8.5(H) <5.7 % 08/28/2024 12:44 AM EDT [facility] Blood Venous blood specimen / Unknown Venipuncture / Unknown 08/27/2024 9:15 PM EDT 08/27/2024 9:25 PM EDT Narrative [facility] - 08/28/2024 12:44 AM EDT HA1C Interpretive Data: Diagnosis of Diabetes: Diabetic > or = 6.5% Pre-diabetic 5.7 to 6.4% Non-diabetic < or = 5.6% Glycemic Targets for Type I and Type II Diabetics: Non- Adults <7.0% Adults <6.0% Children and Adolescents <7.5% Source: [place] Diabetes Association. Standards of medical care in diabetes,2017. Diabetes Care.2017:40 (suppl 1):S1-S135. HbA1c assay performed by an ion-exchange chromatography method that is certified traceable to the DCCT. us Roberto Ceja MD LAB BLOOD ORDERABLES Final R esult Performing Organization Address [facility] Co de Phone Number [facility] [address] [place] [address] * Hepatitis C Antibody - ED (05/26/2024 11:59 AM EST) Hepatitis C Antibody Negative Negative 05/26/2024 12:53 PM EST [facility] Blood Venous blood specimen / Unknown Venipuncture / Unknown 05/26/2024 11:59 AM EST 05/26/2024 12:11 PM EST us Justyna Suazo MD LAB BLOOD ORDERABLES Final Res ult Performing Organization Address [facility] de Phone Number [facility] [address] [place] [address] from Last 3 Months or Most Recently Relevant to Health Maintenance Additional Health Concerns Active Problems Noted Date Diagnosed Date Autogenerated Problem 09/11/2024 Infection Onset Date Last Indicated MRSA 08/27/2024 08/28/2024 Insurance [facility] MEDIC[facility] Advance Directives * Full Code [...] Patient has decision-making capacity? Yes Care Teams Truck Driver Salesperson Relationship Specialty Start Date End Date Ramos Morales APRN [address] [place] [address] PCP - General 06/25/24
--- OUTSIDE RECORDS SUMMARY | 2025-01-22 14:14 | XMS_ITS | Encounter Summary ---
Author Organization [facility] Address [address] [place] [address] Care Team Providers Care Set Designer Name Role Phone Carmen Ramos Sterling APRN Primary Care Provider [phone] Encounter Details Date Type Department Care Team (Late st Contact Info) Description 11/27/2024 Telephone [place] [facility] [address] [facility] 5th Floor [address] [place] [address] Scotty Truong MD [address] [facility] [address] [place] [address] Social History Tobacco Use Types [...] any [facility] the [facility] or living in a half-way (including now)? Patient unable to answer 08/29/2024 [...] EDT Spoke with pt to reschedule [facility] discharge vascular consult. Pt state she [...] documented as of this encounter Care Teams Set Designer Relationship Specialty Start Date End Date Ramos Morales APRN [address] [place] [address] PCP - General 06/25/24 documented as of this encounter
--- OUTSIDE RECORDS SUMMARY | 2025-01-22 14:14 | XMS_ITS | Encounter Summary ---
Author Organization [facility] Address [address] [place] [address] Care Team Providers Care Client Relation Specialist Name Role Phone Ramos Morales APRN Primary Care Provider [phone] Reason for Visit * Auth/Cert (Routine) Specialty Diagnoses / Procedures Referred By Contac t Referred To Contact Diagnoses Pyogenic arthritis of right knee joint, due to unspecified organism (CMS/HCC) Septic Knee Joint Conner Major MD [address] [place] [address] Phone: tel: fax: PAV A Inpatient [address] [place] [address] Referral ID Status Reason Start Date Expiration Date Visits Re quested Visits Authorized [id number] 1 1 Encounter Details Date Type Department Care Team (Late st Contact Info) Description 08/27/2024 Lab Requisition [facility] H Lab [address] [place] [address] Sina Villalobos, HAILE [address] [facility] [address] [place] [address] Encounter for general adult medical examination without [...] any time in the past 12 m [facility], were you homeless or living in a group home (including now)? Patient unable to answer 08/29/2024 Utilities Answer Date Recorded In the past 12 months has th e [employer], gas, oil, or water [employer] threatened to shut off services in your [...] No Risk Indicated 08/30/2024 8:00 PM EDT Cihdi Morfin RN * Question Answer Date of [...] Result [facility] [address] [place] [address] documented in this encounter Visit Diagnoses Diagnosis Encounter for general adult medical examination without abnormal findings documented in this encounter Additional Health Concerns Infection Onset Date Last Indicated Resolved Time MRSA 08/27/2024 08/28/2024 Assessment Noted Time A Body Mass Index follow-up plan has been documented for the patient 09/26/2024 11:03 AM EDT documented as of this encounter Care Teams Client Relation Specialist Relationship Specialty Start Date End Date Ramos Morales APRN [address] [place] [address] PCP - General 06/25/24 documented as of this encounter
--- OUTSIDE RECORDS SUMMARY | 2025-01-22 14:14 | XMS_ITS | Encounter Summary ---
Author Organization [facility] Address [address] [place] [address] Care Team Providers Care Earth Boring Machine Operator Name Role Phone Ramos Morales APRN Primary Care Provider [phone] Reason for Visit * Auth/Cert (Routine) Specialty Diagnoses / Procedures Referred By Contac t Referred To Contact Diagnoses Pyogenic arthritis of right knee joint, due to unspecified organism (CMS/HCC) Septic Knee Joint Conner Major MD [address] [place] [address] Phone: tel: fax: PAV A Inpatient [address] [place] [address] Referral ID Status Reason Start Date Expiration Date Visits Re quested Visits Authorized [id number] 1 1 Encounter Details Date Type Department Care Team (Late st Contact Info) Description 08/27/2024 Lab Requisition [facility]AV H Lab [address] [place] [address] Sina Villalobos, HAILE [address] [facility] [address] [place] [address] Encounter for general adult medical examination without [...] any time in the past 12 m [facility], were you homeless or living in a alf (including now)? Patient unable to answer 08/29/2024 Utilities Answer Date Recorded In the past 12 [address] e [address], gas, oil, or water [employer] threatened to shut off services in your [...] STOOLS ORDERABLES Final Result Performing Organization Address City/[facility]/ZIP Co de Phone Number [facility] [address] [place] [address] * Synovial fluid, crystal (08/27/2024 1:05 PM EDT) Crystals, Joint Fluid No Crystals Seen No Crystals Present 08/27/2024 7:36 PM EDT [facility] Joint Fluid 08/27/2024 1:05 PM EDT 08/27/2024 3:14 PM EDT us Sina BE LAB BODY FLUIDS AND STOOLS ORDERABLES Final Result Performing Organization Address [facility] Phone Number [facility] [address] [place] [address] * (ABNORMAL) Body Fluid Cell Count w/ Diff (08/27/2024 1:05 PM EDT) Color, Body fluid Yellow LAB HEMATOLOGY METHOD 08/27/2024 7:45 PM EDT [facility] Appearance, Body fluid Cloudy(A) LAB HEMATOLOGY METHOD 08/27/2024 7:45 PM EDT [facility] Volume, Body fluid 1.0 cc LAB HEMATOLOGY METHOD 08/27/2024 7:45 PM EDT [facility] Fluid Container Specimen received in [...] STOOLS ORDERABLES NO SPECIMEN TYPE/SOURCE Final Result [facility] [address] [place] [address] documented in this encounter Visit Diagnoses Diagnosis Encounter for general adult medical examination without abnormal findings documented in this encounter Additional Health Concerns Infection Onset Date Last Indicated Resolved Time MRSA 08/27/2024 08/28/2024 Assessment Noted Time A Body Mass Index follow-up plan has been documented for the patient 09/26/2024 11:03 AM EDT documented as of this encounter Care Teams Earth Boring Machine Operator Relationship Specialty Start Date End Date Ramos Morales APRN [address] [place] [address] PCP - General 06/25/24 documented as of this encounter
--- OUTSIDE RECORDS SUMMARY | 2025-01-22 14:14 | XMS_ITS | Referral Summary ---
Author Organization [employer] ([place], [place], [place], [place]) Address [address] [place] [id number] Care Team Providers Care Bellstand Attendant Name Role Phone Unavailable Primary Care [...]
--- OUTSIDE RECORDS SUMMARY | 2025-01-22 14:14 | XMS_ITS | Encounter Summary ---
Author Organization [facility] Address [address] [place] [address] Care Team Providers Care Database Engineer Name Role Phone Carmen Ramos Sterling APRN Primary Care Provider [phone] Encounter Details Date Type Department Care Team (Late st Contact Info) Description 08/01/2024 Orders Only External Location [address] [place] [address] Provider, External Social History Tobacco Use Types [...] any time in the past 12 m [facility], were you homeless or living in a detention (including now)? No 05/28/2024 Utilities Answer Date [...] documented as of this encounter Care Teams Database Engineer Relationship Specialty Start Date End Date Ramos Morales APRN [address] [place] [address] PCP - General 06/25/24 documented as of this encounter
--- OUTSIDE RECORDS SUMMARY | 2025-01-22 14:14 | XMS_ITS | Clinical Summary ---
Author Organization [facility] Address [address] [place] [address] Care Team Providers Care Trolley Car Overhauler Name Role Phone Óscar Beckham MD Primary Care Provider [phone] Allergies Active Allergy Reactions Criticality Noted Date Comments Canagliflozin Myalgia Low 10/15/2019 Medications magnesium oxide (MAGOX) 400 (241.3 Mg) MG tablet tablet Take 400 mg by mouth Daily. Active vitamin D (ERGOCALCIFEROL ) 1.25 MG (05814 UT) capsule capsule Take 1 capsule by [...] (10/15/2019): Added automatically from request for surgery [id number] S/P coronary artery stent placement 06/20/2014 Family [...] Industry Job Start Date Job End Date [employer] work Not on file Not on file [...] Discontinued 09/19/2024 Medical Devices Implanted Type Area Log Turner Device Identifier Shelf Expiration Date Model / [...] - 5.60 % 04/16/2021 2:54 PM EDT [facility] Blood Venipuncture / Unknown 04/16/2021 2:08 PM EDT 04/16/2021 2:26 PM EDT Narrative [facility] - 04/16/2021 2:54 PM EDT Hemoglobin A1C Ranges: Increased Risk for Diabetes 5.7% to 6.4% Diabetes >= 6.5% Diabetic Goal < 7.0% us Claudio BE LAB BLOOD ORDERABLES Final Resu lt [facility]
[address] [place] [address], from Last 3 Months or Most Recently Relevant to Health Maintenance Insurance MEDICAID [place] [employer] MEDICARE ADVANTAGE Advance Directives * CPR (Attempt to Resuscitate) (Latest Code Status on File) Date Activated Date Inactivated Comments 10/17/2019 11:30 AM 10/18/2019 1:04 PM Question Answer Comments Code Status (Patient has no pulse and is not breathing): CPR (Attempt to Resuscitate) Medical Interventions (Patie nt has pulse or is breathing): Full Care Teams Trolley Car Overhauler Relationship Specialty Start Date End Date Óscar Beckham MD [facility] [address] ATTN: [place] [address] PCP - General Emergency Medicine 04/16/21
[2025-01-22 16:16] LABS: POC Glucose,Bedside 188 (70-110)
[2025-01-22 20:22] LABS: POC Glucose,Bedside 210 (70-110)
[2025-01-22] MEDS: humaLOG 100 UNITS/ML 10ML VIAL (SSI) SUBCUT (21:13)
[2025-01-22] MEDS: POLYETHYLENE GLYCOL 3350 238GM POWDER 17 GM PO (21:16)
[2025-01-22] MEDS: PANTOPRAZOLE 40MG TABLET 40 MG PO (21:16)
[2025-01-22] MEDS: ATORVASTATIN 40MG TABLET 40 MG PO (21:16)
[2025-01-23] VITALS: BP 105/57; PULSE 74; RESP 16; TEMP 36.7; O2SAT 98
[2025-01-23] MEDS: HYDROCODONE/APAP 5/325 MG TABLET 1 TAB PO ×2 (00:15→08:26)
[2025-01-23 04:00] VITALS: BP 142/81; PULSE 70; PULSE 71; RESP 16; TEMP 36.6; O2SAT 98; BMI 26.5
--- NOTE | 2025-01-23 04:21 | PC.NURSE ---
Pt is A&OX 4, PT vitals are stable, Pt has a bed alarm on. c/o pain and Nausea, Medicated per MAR. Stand by assist to the bathroom. call light with in reach. DARRICK RODGERS RN
[2025-01-23] MEDS: LEVOTHYROXINE 100MCG (0.1MG) TAB 200 MCG PO (06:01)
[2025-01-23 06:05] LABS: Albumin Level 3.7 g/dl (3.5-5.0); Chloride 101 mmol/L (98-107); Potassium 4.9 mmoL/L (3.5-5.1); Sodium 132 mmol/L (136-145)
[2025-01-23 06:07] LABS: Blood Urea Nitrogen 30 mg/dl (7-17); Creatinine Clearance Estimated 46 mL/min (50-200); Creatinine,Serum 1.30 mg/dl (0.52-1.04); Estimated Glomerular Filt Rate 42 ml/min (>60); GFR (African American) 50 ML/MIN (>60)
[2025-01-23 06:08] LABS: Alanine Aminotransferase 15 U/L (12-78); Albumin/Globulin Ratio 1.3 (1.1-1.8); Alkaline Phosphatase 96 U/L (38-126); Anion Gap 7.9 mEq/L (5-15); Aspartate Amino Transferase 25 U/L (14-36); Calcium 9.3 mg/dl (8.4-10.2); Carbon Dioxide 28 mmol/L (22.0-30.0); Globulin 2.9 g/dL (1.3-3.2); Glucose 130 mg/dl (74-100); Total Protein,Serum 6.6 g/dl (6.3-8.2)
[2025-01-23 06:16] LABS: Hematocrit 29.8 % (37.0-47.0); Hemoglobin 9.8 g/dL (12.2-16.2); Immature Granulocytes % 0.7 %; Mean Corpuscular HGB Conc 32.9 g/dL (31.8-35.4); Mean Corpuscular Hemoglobin 29.9 pg (27.0-31.2); Mean Corpuscular Volume 90.9 fl (81-99); Nucleated Red Blood Cells % 0 %; Platelet Count 191 K/mm3 (142-424); Red Blood Count 3.28 M/mm3 (4.20-5.40); Red Cell Distribution Width-SD 46.4 fL; White Blood Count 5.4 K/mm3 (4.8-10.8)
[2025-01-23 06:25] LABS: Bilirubin,Total < 0.1 mg/dl (0.2-1.3)
[2025-01-23 08:00] VITALS: BP 178/87; PULSE 74; PULSE 80; RESP 16; TEMP 36.4; O2SAT 94
[2025-01-23] MEDS: CITALOPRAM 20MG TABLET 20 MG PO (08:21)
[2025-01-23] MEDS: ASPIRIN EC 81MG TABLET 81 MG PO (08:21)
[2025-01-23] MEDS: CARVEDILOL 12.5MG TABLET 12.5 MG PO (08:21)
[2025-01-23] MEDS: CLOPIDOGREL 75MG TAB 75 MG PO (08:21)
[2025-01-23] MEDS: ALLOPURINOL 100MG TABLET 100 MG PO (08:21)
[2025-01-23] MEDS: SPIRONOLACTONE 25MG TABLET 25 MG PO (08:22)
[2025-01-23] MEDS: DAPAGLIFLOZIN PROPANEDIOL 10 MG TABLET PO (08:22)
[2025-01-23] MEDS: FOLIC ACID 1MG TABLET 1 MG PO (08:22)
[2025-01-23] MEDS: SENNA 8.6MG TABLET 17.2 MG PO (08:22)
[2025-01-23] MEDS: FERROUS SULFATE 325MG TABLET 325 MG PO (08:22)
[2025-01-23] MEDS: GABAPENTIN 300MG CAPSULE 300 MG PO (08:22)
--- NOTE | 2025-01-23 08:24 | EXP.DC.SUM ---
General Admission date:: 01/20/25 Discharge date: 01/23/25 HPI HPI HPI: Patient is a 64-year-old female from [facility] with history of diabetes with previous osteomyelitis and toe amputation, chronic systolic heart failure, encephalopathy, congestive heart failure, type 2 diabetes, hyperlipidemia, hypertension, chronic arterial occlusive disease, coronary artery disease, tobacco dependence. She is on aspirin and Plavix. She presented to the emergency department with symptoms of chest tightness, abdominal pain, nausea, and vomiting for 3 days. [id number] ultrasound was performed by the ER physician which revealed no evidence of any pericholecystic fluid. There was no obvious stones. She was found to have a markedly dilated common bile duct measuring 1.4 cm. She had a CT scan performed which revealed apparent gallstones with dilated common bile duct. She was admitted for inpatient management. Surgery and cardiology consultations were obtained. She has a normal white blood cell count. Normal liver function tests and pancreatic enzymes. She had above normal troponin. Confirmatory gallbladder ultrasound was performed which reveals gallstones with 1.3 cm common bile duct with no gallbladder wall thickening or pericholecystic fluid. Of note, patient has diabetic Charcot foot with nonhealing ulcer and is apparently scheduled for below-knee amputation. Per admission H & P This is a pleasant 64-year-old female with above medical history. She reports she came to the ER 3 weeks ago with nausea and vomiting which improved at home. She returned with nausea vomiting and abdominal pain that been going on this time for about 3 days. She was complaining of persistent epigastric pain and right upper quadrant pain. She is tender to palpation right lower quadrant and right upper quad and epigastric. The patient has chronic obstipation and takes 4 Senokot per day plus MiraLAX as needed. She is been taking this for 6 months. She usually only has about 2 or 3 bowel movements a week combination. She has been having her regular stooling these past couple of weeks that has not changed. She did have a single episode of diarrhea yesterday but that has not been ongoing. Initially she thought the abdominal pain may be musculoskeletal related to all of the vomiting that she has had going on. She does report persistent heartburn or reflux and Prilosec helps that. Her last colonoscopy was 2 to 3 years ago. Last EGD was 5 years ago in [place]. With the CBD dilation, she underwent MRCP and we are awaiting results. LFTs are within normal limits today. She did have a slight elevation of alk phos yesterday. Hospital Course Hospital Course Hospital Course: Patient is a 64-year-old female with past medical history of hypertension hyperlipidemia CHF diabetes mellitus CAD who presents to the hospital due to chest tightness, abdominal pain nausea vomiting. According to the patient she has been having vomiting for past 3 days. Patient is also concerned about right upper quadrant abdominal pain, she is concerned she might have gallbladder inflammation. Patient otherwise denying fevers chills diarrhea constipation dysuria. Was evaluated by GI, cardiology, surgery during admission. Decision made to hold on any intervention after MRCP and normal liver enzymes showing common bile duct dilation of an specified etiology. Decision made to advance diet, tolerated well without worsening pain and no bump in liver enzymes. Given her clinical stability, will discharge home with close follow-up with GI to evaluate abdomen/biliary tree dilation, surgery to evaluate possible cholecystectomy electively as an outpatient, will follow with orthopedics as previously scheduled to evaluate her left Charcot foot needing BKA. Stable to discharge home. Problems addressed as follows: Right upper quadrant abdominal pain Dilated common bile duct Cholelithiasis - Patient presented with chest versus abdominal pain. White count was normal. Hemoglobin stable with her chronic anemia during admission. Monitor daily. Electrolytes showed gradual improvement with sodium improving 132 but if discharged, potassium and magnesium normal. Liver enzymes relatively unremarkable on admission. Stable on day of discharge bilirubin 0.1, AST 25, ALT 15, alk phos 96. Initially had right upper quadrant pain concerning for cholecystitis. Imaging showed some sludge and had common bile duct dilation at 14 mm. MRCP obtained however showing no lauren obstruction and dilated duct of unknown etiology. Given her totally normal liver enzymes, decision made after consultation with GI and surgery to hold on intervention at this time. Recommend resuming diet and follow-up as an outpatient for consideration for possible elective cholecystectomy and potential ERCP as an outpatient. - Continue Zofran 4 mg as needed every 6 hours - Continue hydrocodone 5 mg every 8 hours as needed per home regimen - Advance to regular diet - Continue pantoprazole 40 mg nightly -MiraLAX twice daily, docusate/senna once daily for her recurrent/chronic constipation issues. Heart failure with improved ejection fraction Hypertension Elevated troponin - continue spironolactone 25 mg daily, Plavix 75 mg daily, aspirin 81 mg daily, carvedilol 12.5 mg twice daily. Cardiology evaluated during admission. No concerns for acute ACS. Continue DAPT therapy, statin, beta-albino. Routine follow-up as an outpatient. Type 2 diabetes Charcot foot Chronic osteomyelitis of left foot - Most recent A1c 2 months ago 5.3. Appears well-controlled. Continue Farxiga 10 mg daily, morning glucose 90 - Has chronic osteomyelitis. Follows with podiatry for left Charcot foot. Referred to orthopedics for amputation. Infection does not appear to be flaring at this time. Will continue to monitor and consult podiatry if symptoms recur or deemed to be an acute exacerbation. Otherwise we will follow with orthopedics as an outpatient to discuss surgery - Wound care to assist with bandaging Neuropathy: Continue gabapentin 300 mg 3 times a day Total time spent on discharge 36 minutes in counseling, documentation, chart review, and direct care with patient. Exam Data for Last 24 hours Vital signs and Labs for Last 24 Hours: Temp Pulse Resp BP Pulse Ox O2 Del Method 97.9 F 71 16 142/81 H 98 Room Air 01/23/25 04:00 01/23/25 04:00 01/23/25 04:00 01/23/25 04:00 01/23/25 04:00 01/23/25 07:00 Laboratory Results - last 24 hr 01/22/25 16:02: POC Glucose 188 H 01/22/25 20:06: POC Glucose 210 H 01/23/25 05:42: WBC 5.4, RBC 3.28 L, Hgb 9.8 L, Hct 29.8 L, MCV 90.9, MCH 29.9, MCHC 32.9, RDW 13.7, Plt Count 191, MPV 8.8, Neut % (Auto) 42.1, Lymph % (Auto) 45.6, Kendall % (Auto) 9.0, Eos % (Auto) 2.2, Baso % (Auto) 0.4, Neut # (Auto) 2.3, Lymph # (Auto) 2.4, Kendall # (Auto) 0.5, Eos # (Auto) 0.1, Baso # (Auto) 0.0, Sodium 132 L, Potassium 4.9 D, Chloride 101, Carbon Dioxide 28, Anion Gap 7.9, BUN 30 H, Creatinine 1.30 H, Estimated Creat Clear 46, Estimated GFR 42 L, Est GFR ( Amer) 50 L, Glucose 130 H, Calcium 9.3, Total Bilirubin < 0.1 L, AST 25, ALT 15, Alkaline Phosphatase 96, Total Protein 6.6, Albumin 3.7 D, Globulin 2.9, Albumin/Globulin Ratio 1.3 I & O for Last 24 hours: Intake & Output 01/20/25 01/21/25 01/22/25 01/23/25 23:59 23:59 23:59 23:59 Intake Total 480 / 709 499 / 499 420 / 670 250 / 250 Output Total 300 / 300 0 / 0 0 / 0 Balance 480 / 609 199 / 199 420 / 670 250 / 250 Weight 64.864 kg 64.047 kg 63.276 kg 65.374 kg Constitutional Constitutional: no acute distress, average body habitus, chronically ill appearing and cooperative *Routine HEENT Exam Head: Present normocephalic Eye: Present EOMI and PERRL ENT: Present mucous membranes moist *Routine Neck Exam Neck: Present supple; Absent lymphadenopathy *Routine Respiratory Exam Respiratory: Present CTA bilaterally; Absent rhonchi, wheezes or crackles *Routine Cardiovascular Exam Cardiovascular: Present RRR *Routine Abdominal Exam Abdominal: Present soft, normoactive bowel sounds and tenderness (Minimal, right upper quadrant. Drastically improved) *Routine Rectal Exam Patient deferred: visual exam *Routine Exam Patient deferred: external exam *Routine Extremities Exam Extremities: Absent cyanosis, clubbing or edema Comments: Charcot deformity of left foot, and bandage. No significant erythema. Has chronic infection in wound lateral portion of foot *Routine Skin Exam Skin: Present warm; Absent rash *Routine Neurological Exam Neurological: Present alert, oriented X3 and moving all extremities; Absent altered mental status Results Data Completed and Pending Labs on day of discharge: Labs from last 24 hours 01/23/25 01/22/25 01/22/25 05:42 20:06 16:02 WBC 5.4 RBC 3.28 L Hgb 9.8 L Hct 29.8 L MCV 90.9 MCH 29.9 MCHC 32.9 RDW 13.7 Plt Count 191 MPV 8.8 Neut % (Auto) 42.1 Lymph % (Auto) 45.6 Kendall % (Auto) 9.0 Eos % (Auto) 2.2 Baso % (Auto) 0.4 Neut # (Auto) 2.3 Lymph # (Auto) 2.4 Kendall # (Auto) 0.5 Eos # (Auto) 0.1 Baso # (Auto) 0.0 Sodium 132 L Potassium 4.9 D Chloride 101 Carbon Dioxide 28 Anion Gap 7.9 BUN 30 H Creatinine 1.30 H Estimated Creat Clear 46 Estimated GFR 42 L Est GFR ( Amer) 50 L Glucose 130 H POC Glucose 210 H 188 H Calcium 9.3 Total Bilirubin < 0.1 L AST 25 ALT 15 Alkaline Phosphatase 96 Total Protein 6.6 Albumin 3.7 D Globulin 2.9 Albumin/Globulin Ratio 1.3 DS: Diagnosis Discharge Diagnosis (1) Chest pain: Status: Acute Code(s): R07.9 - Chest pain, unspecified (2) Nausea & vomiting: Status: Acute Code(s): R11.2 - Nausea with vomiting, unspecified (3) Diabetes mellitus: Status: Acute Code(s): E11.9 - Type 2 diabetes mellitus without complications Qualifiers: Diabetes mellitus type: type 2 (4) Chronic systolic heart failure: Status: Acute Code(s): I50.22 - Chronic systolic (congestive) heart failure (5) Abdominal pain: Status: Acute Code(s): R10.9 - Unspecified abdominal pain (6) Common bile duct dilation: Status: Acute Code(s): K83.8 - Other specified diseases of biliary tract (7) Cholelithiasis: Status: Acute Code(s): K80.20 - Calculus of gallbladder without cholecystitis without obstruction (8) Charcot foot due to diabetes mellitus: Status: Acute Code(s): E11.610 - Type 2 diabetes mellitus with diabetic neuropathic arthropathy Meds Home Medications and Allergies Home Medications ?Medication ?Instructions ?Recorded ?Confirmed ?Type spironolactone 25 mg tablet 25 mg PO DAILY 04/15/24 01/20/25 History sennosides 8.6 mg tablet (Senna 17.2 mg (2 x 8.6 mg) PO DAILY 30 04/24/24 01/20/25 Rx Laxative) days #60 tabs polyethylene glycol 3350 17 17 g PO DAILY PRN Constipation 05/21/24 01/20/25 History gram/dose oral powder (Miralax) citalopram 20 mg tablet 20 mg PO DAILY #90 tabs 08/30/24 01/20/25 Rx clopidogrel 75 mg tablet 75 mg PO DAILY #30 tabs 10/09/24 01/20/25 Rx lisinopril 40 mg tablet 40 mg PO HS #30 tabs 10/09/24 01/20/25 Rx aspirin 81 mg tablet,delayed 81 mg PO DAILY 10/20/24 01/20/25 History release (Darshana Low Dose Aspirin) ferrous sulfate 325 mg (65 mg 325 mg PO DAILY 10/20/24 01/20/25 History iron) tablet (Feosol) folic acid 1 mg tablet 1 mg PO DAILY 30 days #30 tabs 10/26/24 01/20/25 Rx furosemide 80 mg tablet 80 mg PO DAILY 30 days #90 tabs 12/20/24 01/20/25 Rx hydrocodone 5 mg-acetaminophen 325 1 tab PO Q8H PRN Severe Pain 01/01/25 01/20/25 Rx mg tablet (7-10) 30 days #90 tabs Diabetic Shoes (DME) #1 ea 01/09/25 01/20/25 Rx atorvastatin 40 mg tablet 40 mg PO HS #90 tabs 01/10/25 01/20/25 Rx allopurinol 100 mg tablet 100 mg PO DAILY 01/20/25 01/20/25 History dapagliflozin propanediol 10 mg 10 mg PO DAILY 01/20/25 01/20/25 History tablet (Farxiga) gabapentin 300 mg capsule 300 mg PO TID 01/20/25 01/23/25 History carvedilol 12.5 mg tablet 12.5 mg PO BID 01/21/25 01/21/25 History blood-glucose sensor (Dexcom G7 #1 ea 01/23/25 Rx Sensor device) bupropion HCl 150 mg tablet,12 hr 150 mg PO BID #30 ea 01/23/25 Rx sustained-release levothyroxine 200 mcg tablet 200 mcg PO DAILYDM #30 tabs 01/23/25 Rx ondansetron HCl 4 mg tablet 4 mg PO Q6H PRN nausea and 01/23/25 Rx vomiting #20 tabs pantoprazole 40 mg tablet,delayed 40 mg PO HS #90 tabs 01/23/25 Rx release New Prescriptions to Start Prescriptions: ondansetron HCl Neo Pierre Allergies Allergy/AdvReac Type Severity Reaction Status Date / Time canagliflozin (From [facility]) Allergy Severe kidney Verified 01/16/25 09:08 issues Discharge Plan Disposition Patient Disposition: Home, Self-Care Condition: Fair Discharge Order Discharge Orders: Discharge Order (Routine); Ordered 01/23/25 Ordered By: Neo Pierre Follow up Plan Follow up with: Ilya Coats PA [Physician Framing Specialist, Cardiology] - 02/05/25 10:45 am Moshe Harley MD [Staff Physician, General Surgery] - 02/14/25 9:00 am Ramos Morales APRN [Nurse Practitioner, Family Practice] - 01/30/25 10:20 am Bobby Pike II, MD [Staff Physician, Gastroenterology] - 02/14/25 10:15 am Cricket Redmond DO [Staff Physician, Orthopedics] - 01/24/25 1:45 pm ProviderStiven MD [Primary Care Provider, Medical] - Enter time for follow up Prescriptions/Medication Reconciliation: New ondansetron HCl 4 mg tablet 4 mg PO Q6H PRN (Reason: nausea and vomiting) Qty: 20 0RF Continued polyethylene glycol 3350 [Miralax] 17 gram/dose powder 17 g PO DAILY PRN (Reason: Constipation) (DME) Diabetic Shoes (DME) [facility] See Rx Instructions .Route Qty: 1 0RF Rx Instructions: [facility] Please dispense ONE (1) pair of Diabetic Shoes with inserts sennosides [Senna Laxative] 8.6 mg tablet 17.2 mg PO DAILY 30 Days Qty: 60 3RF hydrocodone-acetaminophen 5-325 mg tablet 1 tab PO Q8H PRN (Reason: Severe Pain (7-10)) 30 Days Qty: 90 0RF citalopram 20 mg tablet 20 mg PO DAILY Qty: 90 3RF lisinopril 40 mg tablet 40 mg PO HS Qty: 30 3RF clopidogrel 75 mg tablet 75 mg PO DAILY Qty: 30 3RF furosemide 80 mg tablet 80 mg PO DAILY 30 Days Qty: 90 0RF atorvastatin 40 mg tablet 40 mg PO HS Qty: 90 0RF (DME) Dexcom G7 Sensor Device See Rx Instructions .Route Qty: 1 3RF Rx Instructions: As directed bupropion HCl 150 mg tablet sustained-release 12 hr 150 mg PO BID Qty: 30 3RF pantoprazole 40 mg tablet,delayed release (DR/EC) 40 mg PO HS Qty: 90 3RF levothyroxine 200 mcg tablet 200 mcg PO DAILYDM Qty: 30 3RF aspirin [Darshana Low Dose Aspirin] 81 mg tablet,delayed release (DR/EC) 81 mg PO DAILY ferrous sulfate [Feosol] 325 mg (65 mg iron) tablet 325 mg PO DAILY folic acid 1 mg Tablet 1 mg PO DAILY 30 Days Qty: 30 0RF dapagliflozin propanediol [Farxiga] 10 mg tablet 10 mg PO DAILY Patient Comments: TAKE 1 TABLET BY MOUTH EVERY DAY FOR 30 DAYS allopurinol 100 mg tablet 100 mg PO DAILY Rx Instructions: TAKE 1 TABLET BY MOUTH EVERY DAY gabapentin 300 mg capsule 300 mg PO TID carvedilol 12.5 mg tablet 12.5 mg PO BID Patient Comments: TAKE 1 TABLET BY MOUTH TWICE DAILY spironolactone 25 mg tablet 25 mg PO DAILY Patient Comments: TAKE 1 TABLET BY MOUTH EVERY DAY Problem Reconciliation Problems Reviewed?: Yes Patient Discharge Instructions ACTIVITY: Continue current activity DIET: continue same diet Patient Instructions: DI for Abdominal Pain-Adult, DI for Chest Pain, Nausea and Vomiting-Adult, Stop Light Heart Failure Print Language: Sierra Leonean Providers Primary Care Provider: Provider,Referral Admit Provider: Dov Houston Attending Provider: Dov Houston
--- NOTE | 2025-01-24 11:33 | SW/DCPLANNER ---
Spoke with patient on the phone. Patient stated that she is doing good. Patient stated that she is aware of her upcoming appointments. Patient stated that she was able to get her new medicine picked up from [facility]. Patient stated that she has no concerns or questions at this time. Kiara Guaman
--- OUTSIDE RECORDS SUMMARY | 2025-02-01 20:00 | XMS_ITS | Clinical Summary ---
Author Organization Unknown Care Team Providers Care Shop Worker Name Role Phone STACY MAHAJAN SIGNALS ANALYST, HAILEY Unavailable Unavailab fer CORONA RN, SEGUN Unavailable Unavailable DESHAWN COLLEGE SPORTS COACH, LAURA Unavailable Unavailable BRIANNA PT, JASE Unavailable Unavailable CLYDE CONDITIONER TUMBLER OPERATOR, IRMA Unavailable Unavailable JOSE OT, ZEUS Unavailable Unavailable Payers Payer Name Policy Type Policy Number Effective Date Expira tion Date [employer]AYMIE.[email or web address] [id number] Problems Condition Name Condition Details Condition Category [...] 06-20 00:00: 00 ATHSCL HEART DISEASE OF [place] CORONARY ARTERY W/O ANG PCTRS Active 06-20 [...] APNEA (ADULT) (PEDIATRIC) Active 06-20 00:00: 00 MCC (CURRENT) USE OF INSULIN Active 11-06 00:00: [...] 2023-06 00:00: 00 10-19 00:00 :00 No [id number] ANTIBIOTIC 1 tablet 2 TIMES DAILY 1 tablet 2 TIMES DAILY (route: oral) Med Classific ation: Anti-Infe ctive Agents gabapentin 800 mg tablet 2023-06 00:00: 00 12-05 00:00 :00 No [id number] PAIN 1 tablet 4 TIMES DAILY 1 tablet 4 TIMES DAILY (route: oral) Med Classific ation: Central Nervous System Agents Ozempic 1 mg/dose (4 mg/3 mL) subcutaneou s pen injector 2023-06 00:00: 00 Yes [id number] T2DM 1 mg WEEKLY 1 mg WEEKLY (route: subcutaneo us) Med Classific ation: Endocrine hydrocodone 10 mg-acetamin ophen 325 mg tablet 2023-06 00:00: 00 12-05 00:00 :00 No [id number] PAIN 1 tablet EVERY 6 HOURS 1 tablet EVERY 6 HOURS (route: oral) Med Classific ation: Analgesic , Anti-infl ammatory or Antipyret ic Relistor 150 mg tablet 2023-06 00:00: 00 Yes [id number] CONSTIPATIO N 3 tablet DAILY 3 tablet DAILY (route: oral) Med Classific ation: Antidotes and other Reversal Agents allopurinol 100 mg tablet 06-27 00:00: 00 12-05 00:00 :00 No [id number] GOUT 1 tablet DAILY 1 tablet DAILY (route: oral) Med Classific ation: Gout and Hyperuric emia Therapy amitriptyli ne 50 mg tablet 06-27 00:00: 00 12-05 00:00 :00 No [id number] DEPRESSION 1 tablet BEDTIME 1 tablet BEDTIME (route: oral) Med Classific ation: Central Nervous System Agents Aspirin Childrens 81 mg chewable tablet 06-27 00:00: 00 Yes [id number] HEART 1 tablet DAILY 1 tablet DAILY (route: oral) Med Classific ation: Hematolog ical Agents atorvastati n 80 mg tablet 06-27 00:00: 00 Yes [id number] CHOLESTEROL 1 tablet BEDTIME 1 tablet BEDTIME (route: oral) Med Classific ation: Cardiovas cular Therapy Agents bupropion HCl SR 150 mg tablet,12 hr sustained-r elease 06-27 00:00: 00 Yes [id number] DEPRESSION 1 tablet 2 TIMES DAILY 1 tablet 2 TIMES DAILY (route: oral) Med Classific ation: Central Nervous System Agents carvedilol 25 mg tablet 06-27 00:00: 00 Yes [id number] BLOOD PRESSURE 1 tablet 2 TIMES DAILY 1 tablet 2 TIMES DAILY (route: oral) Med Classific ation: Cardiovas cular Therapy Agents citalopram 20 mg tablet 06-27 00:00: 00 Yes [id number] DEPRESSION 1 tablet BEDTIME 1 tablet BEDTIME (route: oral) Med Classific ation: Central Nervous System Agents clopidogrel 75 mg tablet 06-27 00:00: 00 Yes [id number] HEART 1 tablet DAILY 1 tablet DAILY (route: oral) Med Classific ation: Hematolog ical Agents fluconazole 150 mg tablet 06-27 00:00: 00 10-19 00:00 :00 No [id number] ANTI YEAST 2 tablet DAILY 2 tablet DAILY (route: oral) Med Classific ation: Anti-Infe ctive Agents furosemide 40 mg tablet 06-27 00:00: 00 12-05 00:00 :00 No [id number] EDEMA 1 tablet DAILY 1 tablet DAILY (route: oral) Med Classific ation: Cardiovas cular Therapy Agents Humalog KwikPen (U-100) Insulin 100 unit/mL subcutaneou s 06-27 00:00: 00 Yes [id number] T2DM 20 unit 3 TIMES DAILY 20 unit 3 TIMES DAILY (route: subcutaneo us) Med Classific ation: Endocrine Lantus Solostar U-100 Insulin 100 unit/mL (3 mL) [facility] 06-27 00:00: 00 Yes [id number] T2DM 20 unit EVERY PM 20 unit EVERY PM (route: subcutaneo us) Med Classific ation: Endocrine levothyroxi ne 200 mcg tablet 06-27 00:00: 00 Yes [id number] THYROID 1 tablet DAILY 1 tablet DAILY (route: oral) Med Classific ation: Endocrine lisinopril 40 mg tablet 06-27 00:00: 00 Yes [id number] HYPERTENSIO N 1 tablet DAILY 1 tablet DAILY (route: oral) Med Classific ation: Cardiovas cular Therapy Agents pantoprazol e 40 mg tablet,rena yed release 06-27 00:00: 00 12-05 00:00 :00 No [id number] GERD 1 tablet DAILY 1 tablet DAILY (route: oral) Med Classific ation: Gastroint estinal Therapy Agents spironolact one 25 mg tablet 06-27 00:00: 00 Yes [id number] BLOOD PRESSURE 1 tablet DAILY 1 tablet DAILY (route: oral) Med Classific ation: Cardiovas cular Therapy Agents Senna Lax 8.6 mg tablet 10-19 00:00: 00 Yes [id number] STOOL SOFTNER 2 tablet EVERY AM 2 tablet EVERY AM (route: oral) Med Classific ation: Gastroint estinal Therapy Agents gabapentin 100 mg capsule 12-05 00:00: 00 Yes [id number] NEUROPATHY 200 mg 3 TIMES DAILY 200 mg 3 TIMES DAILY (route: oral) Med Classific ation: Central Nervous System Agents hydrocodone 5 mg-acetamin ophen 325 mg tablet 12-05 00:00: 00 Yes [id number] PRN PAIN 1 tablet EVERY 6 HOURS 1 tablet EVERY 6 HOURS (route: oral) Med Classific ation: Analgesic , Anti-infl ammatory or Antipyret ic pramipexole 0.5 mg tablet 12-05 00:00: 00 Yes [id number] BLADDER 1 tablet BEDTIME 1 tablet BEDTIME (route: oral) Med Classific ation: Central Nervous System Agents Vital Signs Vital Name Observation Time Observation Value Commen ts Temperature 2025-01-09 20:34:00.000 97.8 [degF] Temperature 2025-01-08 13:09:00.000 98 [degF] Temperature 2024-12-24 13:58:00.000 97.2 [degF] Temperature 2024-12-18 14:49:00.000 97.7 [degF] Temperature 2024-12-12 17:03:00.000 97.4 [degF] Temperature 2024-12-07 14:36:00.000 98.5 [degF] Temperature 2024-12-05 12:30:00.000 98.4 [degF] BMI (%) 2024-12-05 12:14:46.000 26 kg/m2 Height 2024-12-05 12:14:40.000 62 [in_us] Pulse 2025-01-09 20:34:00.000 72 /min Pulse 2025-01-08 [...] Saturation (%) 2024-12-12 15:28:00.000 99 % Respirations 2025-01-09 20:34:00.000 18 /min Respirations 2025-01-08 13:09:00.000 17 /min Respirations 2024-12-28 13:34:00.000 18 /min Respirations 2024-12-24 13:58:00.000 18 /min Respirations 2024-12-19 14:32:00.000 18 /min Respirations 2024-12-18 14:49:00.000 18 /min Respirations 2024-12-12 17:03:00.000 18 /min Respirations 2024-12-12 15:28:00.000 18 /min Respirations 2024-12-07 14:36:00.000 18 /min Respirations 2024-12-05 12:30:00.000 18 /min Weight (lbs) 2024-12-05 12:14:46.000 144 [lb_av] Systolic Blood Pressure 2025-01-09 20:34:00.000 147 mm [...] 12:30:00.000 109 mm [Hg] Diastolic Blood Pressure 2025-01-09 20:34:00.000 [...] FOR PODIATRY RN TO OBSERVE AND ASSESS, COLLEGE SPORTS COACH/METROLOGY ENGINEER TO OBSERVE FOR RISK FOR FALLS AND INSTRUCT IN FALL PREVENTION, HOME SAFETY, MEDICATION MANAGEMENT, INFECTION PREVENTION, AND NUTRITION MANAGEMENT. RN/COLLEGE SPORTS COACH/METROLOGY ENGINEER NURSE MAY PERFORM O2 SATURATION LEVEL ON ADMISSION AND PRN FOR WOUND COMPLICATIONS FOR RN TO ASSESS/COLLEGE SPORTS COACH TO OBSERVE PATIENT, WITH NOTIFICATION TO THE PHYSICIAN IF SATURATION IS 90% IN THE ABSENCE OF MORE SPECIFIC PARAMETERS FROM THE PHYSICIAN. AGENCY MAY PERFORM A RESUMPTION OF CARE VISIT FOLLOWING ANY HOSPITAL ADMISSION. RN/COLLEGE SPORTS COACH/METROLOGY ENGINEER TO MONITOR CO-MORBID CONDITIONS LISTED ON THE PLAN OF CARE AND ANY NEW CONDITIONS THAT PRESENT THEMSELVES DURING THIS EPISODE TO IDENTIFY CHANGES AND INTERVENE TO MINIMIZE COMPLICATIONS. [code = RN TO OBSERVE, ASSESS, EVALUATE, AND DEVELOP AN INDIVIDUALIZED PLAN OF CARE. AGENCY MAY ACCEPT ORDERS FROM CONSULTING PHYSICIANS DR MULLINS FOR PODIATRY RN TO OBSERVE AND ASSESS, COLLEGE SPORTS COACH/METROLOGY ENGINEER TO OBSERVE FOR RISK FOR FALLS AND INSTRUCT IN FALL PREVENTION, HOME SAFETY, MEDICATION MANAGEMENT, INFECTION PREVENTION, AND NUTRITION MANAGEMENT. RN/COLLEGE SPORTS COACH/METROLOGY ENGINEER NURSE MAY PERFORM O2 SATURATION LEVEL ON ADMISSION AND PRN FOR WOUND COMPLICATIONS FOR RN TO ASSESS/COLLEGE SPORTS COACH TO OBSERVE PATIENT, WITH NOTIFICATION TO THE PHYSICIAN IF SATURATION IS 90% IN THE ABSENCE OF MORE SPECIFIC PARAMETERS FROM THE PHYSICIAN. AGENCY MAY PERFORM A RESUMPTION OF CARE VISIT FOLLOWING ANY HOSPITAL ADMISSION. RN/COLLEGE SPORTS COACH/METROLOGY ENGINEER TO MONITOR CO-MORBID CONDITIONS LISTED ON THE PLAN OF CARE AND ANY NEW CONDITIONS THAT PRESENT THEMSELVES DURING THIS EPISODE TO IDENTIFY CHANGES AND INTERVENE TO MINIMIZE COMPLICATIONS.] Future Scheduled Test RISK FOR H OSPITALIZATION; RN TO ASSESS/TEACH, METROLOGY ENGINEER/COLLEGE SPORTS COACH TO OBSERVE/TEACH PATIENT/CAREGIVER ON RISK FOR HOSPITALIZATION/EMERGENCY ROOM VISITS, TEACH SIGNS AND SYMPTOMS THAT PUT PATIENT AT RISK, WHEN TO NOTIFY NURSE/PHYSICIAN OF COMPLICATIONS/DECLINE, AND WHEN TO CALL 911. [code = RISK FOR HOSPITALIZATION; RN TO ASSESS/TEACH, METROLOGY ENGINEER/COLLEGE SPORTS COACH TO OBSERVE/TEACH PATIENT/CAREGIVER ON RISK FOR HOSPITALIZATION/EMERGENCY ROOM VISITS, TEACH SIGNS AND SYMPTOMS THAT PUT PATIENT AT RISK, WHEN TO NOTIFY NURSE/PHYSICIAN OF COMPLICATIONS/DECLINE, AND WHEN TO CALL 911.] Future Scheduled Test SKIN INTEG RITY RN TO ASSESS AND TEACH, COLLEGE SPORTS COACH/METROLOGY ENGINEER TO OBSERVE AND TEACH INTEGUMENTARY STATUS TO IDENTIFY CHANGES AND INTERVENE TO MINIMIZE COMPLICATIONS. PROVIDE SKILLED TEACHING OF GENERAL WOUND AND SKIN CARE AND PREVENTION RELATED TO POTENTIAL FOR OR ACTUAL ALTERED SKIN INTEGRITY [code = SKIN INTEGRITY RN TO ASSESS AND TEACH, COLLEGE SPORTS COACH/METROLOGY ENGINEER TO OBSERVE AND TEACH INTEGUMENTARY STATUS TO IDENTIFY CHANGES AND INTERVENE TO MINIMIZE COMPLICATIONS. PROVIDE SKILLED TEACHING OF GENERAL WOUND AND SKIN CARE AND PREVENTION RELATED TO POTENTIAL FOR OR ACTUAL ALTERED SKIN INTEGRITY ] Future Scheduled Test RN TO ASSE SS, COLLEGE SPORTS COACH/METROLOGY ENGINEER TO OBSERVE DIABETIC FOOT ULCERS - NEUROPATHIC AND INTERVENE TO MINIMIZE COMPLICATIONS. PROVIDE SKILLED TEACHING TO PATIENT/CAREGIVER RELATED TO ALTERED SKIN INTEGRITY. REPORT SIGNIFICANT CHANGES IN STATUS TO PHYSICIAN FOR EARLY INTERVENTION. [code = RN TO ASSESS, COLLEGE SPORTS COACH/METROLOGY ENGINEER TO OBSERVE DIABETIC FOOT ULCERS - NEUROPATHIC AND INTERVENE TO MINIMIZE COMPLICATIONS. PROVIDE SKILLED TEACHING TO PATIENT/CAREGIVER RELATED TO ALTERED SKIN INTEGRITY. REPORT SIGNIFICANT CHANGES IN STATUS TO PHYSICIAN FOR EARLY INTERVENTION.] Future Scheduled Test RN/COLLEGE SPORTS COACH/METROLOGY ENGINEER TO PERFORM/TEACH WOUND CARE TO LEFT FOOT SURGICAL WOUND DAILY AND PRN IF SOILED, DAUGHTER TO DO WOUND CARE WHEN SN NOT VISITING IRRIGATE/CLEANSE WITH SALINE APPLY BETADINE MOISTENED GAUZE PACKED INTO WOUND BED MAY APPLY SKIN BARRIER TO PERIWOUND PRN TO PREVENT MACERATION AND PROTECT PERIWOUND COVER WITH ABD PAD AND GAUZE SECURE WITH KERLIX AND BECCA WRAP [code = RN/COLLEGE SPORTS COACH/METROLOGY ENGINEER TO PERFORM/TEACH WOUND CARE TO LEFT FOOT SURGICAL WOUND DAILY AND PRN IF SOILED, DAUGHTER TO DO WOUND CARE WHEN SN NOT VISITING IRRIGATE/CLEANSE WITH SALINE APPLY BETADINE MOISTENED GAUZE PACKED INTO WOUND BED MAY APPLY SKIN BARRIER TO PERIWOUND PRN TO PREVENT MACERATION AND PROTECT PERIWOUND COVER WITH ABD PAD AND GAUZE SECURE WITH KERLIX AND BECCA WRAP ] Future Scheduled Test RN/COLLEGE SPORTS COACH/METROLOGY ENGINEER TO PERFORM/TEACH PATIENT/CAREGIVER WOUND CARE TO DIABETIC ULCER TO RIGHT HEEL AND RIGHT OUTER FOOT IRRIGATE/CLEANSE SALINE APPLY ALGINATE MAY APPLY SKIN BARRIER TO PERIWOUND PRN TO PREVENT MACERATION AND PROTECT PERIWOUND COVER WITH OPTIFOAM BANDAGE OR GAUZE AND KERLIX AND SECURE WITH TAPE CHANGE DRESSING EVERY DAY AND PRN IF SOILED AND CG TO PERFORM IF SN NOT VISITING [code = RN/COLLEGE SPORTS COACH/METROLOGY ENGINEER TO PERFORM/TEACH PATIENT/CAREGIVER WOUND CARE TO DIABETIC [...] M ANAGEMENT; RN TO ASSESS AND TEACH, METROLOGY ENGINEER/COLLEGE SPORTS COACH TO OBSERVE AND TEACH INSTRUCTIONS OF DIABETIC CARE TO INCLUDE: DIET DIABETIC SKIN CARE, SIGNS AND SYMPTOMS OF HYPO/HYPERGLYCEMIA, PROPER ADMINISTRATION OF DIABETIC MEDICATION. RN/METROLOGY ENGINEER/COLLEGE SPORTS COACH TO INSTRUCT ON DIABETIC FOOT CARE AND MONITOR FOR SKIN LESIONS ON LOWER EXTREMITIES. BLOOD GLUCOSE TESTING 2 TIMES DAILY FREQ. RN TO ASSESS AND TEACH, METROLOGY ENGINEER/COLLEGE SPORTS COACH TO OBSERVE AND TEACH PATIENT/CAREGIVER ABILITY TO PERFORM AND RECORD BLOOD GLUCOSE TESTING ORDERED AND TO REPORT ABNORMAL FINDINGS TO PHYSICIAN. RN/METROLOGY ENGINEER/COLLEGE SPORTS COACH MAY PERFORM BLOOD GLUCOSE TEST NEEDED. RN/METROLOGY ENGINEER/COLLEGE SPORTS COACH TO REPORT TO PHYSICIAN BLOOD GLUCOSE READINGS GREATER THAN 300 LESS THAN 80 RN/METROLOGY ENGINEER/COLLEGE SPORTS COACH TO INSTRUCT PATIENT ON IMPORTANCE OF HGBA1C MONITORING, KIDNEY FUNCTION TEST, EYE AND FOOT EXAMS. [code = DIABETES MANAGEMENT; RN TO ASSESS AND TEACH, METROLOGY ENGINEER/COLLEGE SPORTS COACH TO OBSERVE AND TEACH INSTRUCTIONS OF DIABETIC CARE TO INCLUDE: DIET DIABETIC SKIN CARE, SIGNS AND SYMPTOMS OF HYPO/HYPERGLYCEMIA, PROPER ADMINISTRATION OF DIABETIC MEDICATION. RN/METROLOGY ENGINEER/COLLEGE SPORTS COACH TO INSTRUCT ON DIABETIC FOOT CARE AND MONITOR FOR SKIN LESIONS ON LOWER EXTREMITIES. BLOOD GLUCOSE TESTING 2 TIMES DAILY FREQ. RN TO ASSESS AND TEACH, METROLOGY ENGINEER/COLLEGE SPORTS COACH TO OBSERVE AND TEACH PATIENT/CAREGIVER ABILITY TO PERFORM AND RECORD BLOOD GLUCOSE TESTING ORDERED AND TO REPORT ABNORMAL FINDINGS TO PHYSICIAN. RN/METROLOGY ENGINEER/COLLEGE SPORTS COACH MAY PERFORM BLOOD GLUCOSE TEST NEEDED. RN/METROLOGY ENGINEER/COLLEGE SPORTS COACH TO REPORT TO PHYSICIAN BLOOD GLUCOSE READINGS GREATER THAN 300 LESS THAN 80 RN/METROLOGY ENGINEER/COLLEGE SPORTS COACH TO INSTRUCT PATIENT ON IMPORTANCE OF HGBA1C MONITORING, KIDNEY FUNCTION TEST, EYE AND FOOT EXAMS.] Future Scheduled Test GENITOURIN RICARDO MANAGEMENT; CURRENT UTI RN TO ASSESS AND TEACH, COLLEGE SPORTS COACH/METROLOGY ENGINEER TO OBSERVE AND TEACH RELATED TO ALTERED GENITOURINARY STATUS TO MINIMIZE COMPLICATIONS AND REDUCE HOSPITALIZATION. [code = GENITOURINARY MANAGEMENT; CURRENT UTI RN TO ASSESS AND TEACH, COLLEGE SPORTS COACH/METROLOGY ENGINEER TO OBSERVE AND TEACH RELATED TO ALTERED GENITOURINARY STATUS TO MINIMIZE COMPLICATIONS AND REDUCE HOSPITALIZATION.] Future Scheduled Test URINARY TR ACT INFECTION MANAGEMENT; RN/METROLOGY ENGINEER/COLLEGE SPORTS COACH TO PROVIDE SKILLED TEACHING AND SELF- CARE MANAGEMENT RELATED TO UTI TO MINIMIZE COMPLICATIONS AND REDUCE THE RISK OF HOSPITALIZATION. [code = URINARY TRACT INFECTION MANAGEMENT; RN/METROLOGY ENGINEER/COLLEGE SPORTS COACH TO PROVIDE SKILLED TEACHING AND SELF- CARE MANAGEMENT RELATED TO UTI TO MINIMIZE COMPLICATIONS AND REDUCE THE RISK OF HOSPITALIZATION.] Future Scheduled Test AGENCY MAY PERFORM A RESUMPTION OF CARE VISIT FOLLOWING ANY HOSPITAL ADMISSION. PT TO EVALUATE, OBSERVE / ASSESS, AND MONITOR, CONDITIONER TUMBLER OPERATOR TO OBSERVE AND MONITOR, PROVIDE SKILLED THERAPEUTIC INTERVENTION, ACTIVITY, EDUCATION, AND TRAINING TO ADDRESS; THERAPEUTIC EXERCISES AND ESTABLISHING A HOME EXERCISE PROGRAM (PT/CONDITIONER TUMBLER OPERATOR) WHEELCHAIR MOBILITY AND MANAGEMENT (PT/CONDITIONER TUMBLER OPERATOR) SIT TO/FROM STAND TRANSFERS (PT/CONDITIONER TUMBLER OPERATOR) PT / CONDITIONER TUMBLER OPERATOR TO MONITOR AND EDUCATE ON OXYGEN SATURATION DURING ADLS/IADLS, NOTIFY PHYSICIAN AND/OR THE RN CLINICAL PHYSICAL THERAPIST CENTER MANAGER FOR PHYSICIAN NOTIFICATION AND IF O2 SATS BELOW PHYSICIAN ORDERED PARAMETERS AFTER 10 MIN OF REST PT / CONDITIONER TUMBLER OPERATOR TO INSTRUCT PATIENT/CAREGIVER ON RISK FOR HOSPITALIZATION/EMERGENCY ROOM VISITS, TEACH SIGNS AND SYMPTOMS THAT PUT PATIENT AT RISK, WHEN TO NOTIFY NURSE/PHYSICIAN OF COMPLICATIONS/DECLINE, AND WHEN TO CALL 911. PT/CONDITIONER TUMBLER OPERATOR TO IDENTIFY FALL RISK FACTORS; EDUCATE THE PATIENT/CAREGIVER ON WAYS TO REDUCE FALL RISK FACTORS AND ESTABLISH HOME EXERCISE PROGRAM TO MINIMIZE FALL RISK. MAY TEACH THE PATIENT FLOOR RECOVERY WHEN CLINICALLY APPROPRIATE [code = AGENCY MAY PERFORM A RESUMPTION OF CARE VISIT FOLLOWING ANY HOSPITAL ADMISSION. PT TO EVALUATE, OBSERVE / ASSESS, AND MONITOR, CONDITIONER TUMBLER OPERATOR TO OBSERVE AND MONITOR, PROVIDE SKILLED THERAPEUTIC INTERVENTION, ACTIVITY, EDUCATION, AND TRAINING TO ADDRESS; THERAPEUTIC EXERCISES AND ESTABLISHING A HOME EXERCISE PROGRAM (PT/CONDITIONER TUMBLER OPERATOR) WHEELCHAIR MOBILITY AND MANAGEMENT (PT/CONDITIONER TUMBLER OPERATOR) SIT TO/FROM STAND TRANSFERS (PT/CONDITIONER TUMBLER OPERATOR) PT / CONDITIONER TUMBLER OPERATOR TO MONITOR AND EDUCATE ON OXYGEN SATURATION DURING ADLS/IADLS, NOTIFY PHYSICIAN AND/OR THE RN CLINICAL PHYSICAL THERAPIST CENTER MANAGER FOR PHYSICIAN NOTIFICATION AND IF O2 SATS BELOW PHYSICIAN ORDERED PARAMETERS AFTER 10 MIN OF REST PT / CONDITIONER TUMBLER OPERATOR TO INSTRUCT PATIENT/CAREGIVER ON RISK FOR HOSPITALIZATION/EMERGENCY ROOM VISITS, TEACH SIGNS AND SYMPTOMS THAT PUT PATIENT AT RISK, WHEN TO NOTIFY NURSE/PHYSICIAN OF COMPLICATIONS/DECLINE, AND WHEN TO CALL 911. PT/CONDITIONER TUMBLER OPERATOR TO IDENTIFY FALL RISK FACTORS; EDUCATE THE PATIENT/CAREGIVER ON WAYS TO REDUCE FALL RISK FACTORS AND ESTABLISH HOME EXERCISE PROGRAM TO MINIMIZE FALL RISK. MAY TEACH THE PATIENT FLOOR RECOVERY WHEN CLINICALLY APPROPRIATE] Future Scheduled Test AGENCY MAY PERFORM A RESUMPTION OF CARE VISIT FOLLOWING ANY HOSPITAL ADMISSION. OT TO EVALUATE, OBSERVE / ASSESS, AND MONITOR, AREA ATTENDANT TO OBSERVE AND MONITOR, PROVIDE SKILLED THERAPEUTIC INTERVENTION, ACTIVITY, EDUCATION, AND TRAINING TO ADDRESS DEFICITS IN: BILATERAL POSTAL SUPPORT EMPLOYEE STRENGTH/PAIN, ADL PERFORMANCE/SAFETY, SAFETY AWARENESS AND DISEASE MANAGEMENT. OFFICE OF HAILEY MAHAJAN NP, NOTIFIED OF COMPLETION OF THE OCCUPATIONAL THERAPY EVALUATION AND PLAN OF CARE, TO INCLUDE TREATMENT FREQUENCY AND DURATION OF 1W5. ANY CHANGES IN PATIENTS PLAN OF CARE OR TREATMENT FREQUENCY AND DURATION WILL BE DOCUMENTED IN THE PATIENT MEDICAL RECORD. PERSONAL HYGIENE/GROOMING (OT/NAHUN) DRESSING (OT/AREA ATTENDANT) ACTIVITIES OF DAILY LIVING (OT/NAHUN) THERAPEUTIC EXERCISE (OT/AREA ATTENDANT) OT/AREA ATTENDANT MAY EDUCATE ON PAIN MANAGEMENT CLINICALLY INDICATED, INCLUDING NON-PHARMACOLOGICAL PAIN REDUCTION TECHNIQUES AND USE OF CRYOTHERAPY OR HEAT UP TO 20 MIN AT A TIME FOR PAIN MANAGEMENT TO BILATERAL HANDS. OT/NAHUN TO INSTRUCT PATIENT/CAREGIVER ON RISK FOR HOSPITALIZATION/EMERGENCY ROOM VISITS, TEACH SIGNS AND SYMPTOMS THAT PUT PATIENT AT RISK, WHEN TO NOTIFY NURSE/PHYSICIAN OF COMPLICATIONS/DECLINE, AND WHEN TO CALL 911. OT / AREA ATTENDANT TO IDENTIFY FALL RISK FACTORS; EDUCATE THE PATIENT/CAREGIVER ON WAYS TO REDUCE FALL RISK FACTORS AND ESTABLISH HOME EXERCISE PROGRAM TO MINIMIZE FALL RISK. MAY TEACH THE PATIENT FLOOR RECOVERY WHEN CLINICALLY APPROPRIATE. [code = AGENCY MAY PERFORM A RESUMPTION OF CARE VISIT FOLLOWING ANY HOSPITAL ADMISSION. OT TO EVALUATE, OBSERVE / ASSESS, AND MONITOR, AREA ATTENDANT TO OBSERVE AND MONITOR, PROVIDE SKILLED THERAPEUTIC INTERVENTION, ACTIVITY, EDUCATION, AND TRAINING TO ADDRESS DEFICITS IN: BILATERAL POSTAL SUPPORT EMPLOYEE STRENGTH/PAIN, ADL PERFORMANCE/SAFETY, SAFETY AWARENESS AND DISEASE MANAGEMENT. OFFICE OF HAILEY MAHAJAN NP, NOTIFIED OF COMPLETION OF THE OCCUPATIONAL THERAPY EVALUATION AND PLAN OF CARE, TO INCLUDE TREATMENT FREQUENCY AND DURATION OF 1W5. ANY CHANGES IN PATIENTS PLAN OF CARE OR TREATMENT FREQUENCY AND DURATION WILL BE DOCUMENTED IN THE PATIENT MEDICAL RECORD. PERSONAL HYGIENE/GROOMING (OT/NAHUN) DRESSING (OT/AREA ATTENDANT) ACTIVITIES OF DAILY LIVING (OT/AREA ATTENDANT) THERAPEUTIC EXERCISE (OT/AREA ATTENDANT) OT/AREA ATTENDANT MAY EDUCATE ON PAIN MANAGEMENT CLINICALLY INDICATED, INCLUDING NON-PHARMACOLOGICAL PAIN REDUCTION TECHNIQUES AND USE OF CRYOTHERAPY OR HEAT UP TO 20 MIN AT A TIME FOR PAIN MANAGEMENT TO BILATERAL HANDS. OT/AREA ATTENDANT TO INSTRUCT PATIENT/CAREGIVER ON RISK FOR HOSPITALIZATION/EMERGENCY [...] PATIENT FLOOR RECOVERY WHEN CLINICALLY APPROPRIATE.] Goal Patient Goal - TO HEAL THESE WOUNDS [...] WEEKS. OT LTG: PATIENT WILL DEMONSTRATE IMPROVED POSTAL SUPPORT EMPLOYEE STRENGTH EVIDENCED BY AN IMPROVEMENT FROM 3+/5 [...] AND HOME SAFETY BY END OF EPISODE. Encounters Start Date/Time End Date/Time Encounter Type Admission Type Attending [facility] Care Department Encounter ID Discharge Date Discharge Status Discharge Condition Discharge Reason Percent Goals Met 2024-12-05 00:00:00 2025-02-02 00:00:00 Outpatient [facility] [id number]
--- OUTSIDE RECORDS SUMMARY | 2025-02-01 20:00 | XMS_ITS | Clinical Summary ---
Author Organization Unknown Care Team Providers Care Manager Exchange Name Role Phone STACY MAHAJAN RN OFFICE, HAILEY Unavailable Unavailab fer CORONA RN, SEGUN Unavailable Unavailable DESHAWN GAMBRELER HELPER, LAURA Unavailable Unavailable BRIANNA PT, JASE Unavailable Unavailable CLYDE MACHINE HOOP MAKER HELPER, IRMA Unavailable Unavailable JOSE OT, ZEUS Unavailable Unavailable Payers Payer Name Policy Type Policy Number Effective Date Expira tion Date KRISH.JAYMIE.[employer].C.[id number] Problems Condition Name Condition Details Condition Category [...] 06-20 00:00: 00 ATHSCL HEART DISEASE OF [place] CORONARY ARTERY W/O ANG PCTRS Active 06-20 [...] APNEA (ADULT) (PEDIATRIC) Active 06-20 00:00: 00 SKILLED NURSING (CURRENT) USE OF INSULIN Active 11-06 00:00: [...] 2023-06 00:00: 00 10-19 00:00 :00 No [id number] ANTIBIOTIC 1 tablet 2 TIMES DAILY 1 tablet 2 TIMES DAILY (route: oral) Med Classific ation: Anti-Infe ctive Agents gabapentin 800 mg tablet 2023-06 00:00: 00 12-05 00:00 :00 No [id number] PAIN 1 tablet 4 TIMES DAILY 1 tablet 4 TIMES DAILY (route: oral) Med Classific ation: Central Nervous System Agents Ozempic 1 mg/dose (4 mg/3 mL) subcutaneou s pen injector 2023-06 00:00: 00 Yes [id number] T2DM 1 mg WEEKLY 1 mg WEEKLY (route: subcutaneo us) Med Classific ation: Endocrine hydrocodone 10 mg-acetamin ophen 325 mg tablet 2023-06 00:00: 00 12-05 00:00 :00 No [id number] PAIN 1 tablet EVERY 6 HOURS 1 tablet EVERY 6 HOURS (route: oral) Med Classific ation: Analgesic , Anti-infl ammatory or Antipyret ic Relistor 150 mg tablet 2023-06 00:00: 00 Yes [id number] CONSTIPATIO N 3 tablet DAILY 3 tablet DAILY (route: oral) Med Classific ation: Antidotes and other Reversal Agents allopurinol 100 mg tablet 06-27 00:00: 00 12-05 00:00 :00 No [id number] GOUT 1 tablet DAILY 1 tablet DAILY (route: oral) Med Classific ation: Gout and Hyperuric emia Therapy amitriptyli ne 50 mg tablet 06-27 00:00: 00 12-05 00:00 :00 No [id number] DEPRESSION 1 tablet BEDTIME 1 tablet BEDTIME (route: oral) Med Classific ation: Central Nervous System Agents Aspirin Childrens 81 mg chewable tablet 06-27 00:00: 00 Yes [id number] HEART 1 tablet DAILY 1 tablet DAILY (route: oral) Med Classific ation: Hematolog ical Agents atorvastati n 80 mg tablet 06-27 00:00: 00 Yes [id number] CHOLESTEROL 1 tablet BEDTIME 1 tablet BEDTIME (route: oral) Med Classific ation: Cardiovas cular Therapy Agents bupropion HCl SR 150 mg tablet,12 hr sustained-r elease 06-27 00:00: 00 Yes [id number] DEPRESSION 1 tablet 2 TIMES DAILY 1 tablet 2 TIMES DAILY (route: oral) Med Classific ation: Central Nervous System Agents carvedilol 25 mg tablet 06-27 00:00: 00 Yes [id number] BLOOD PRESSURE 1 tablet 2 TIMES DAILY 1 tablet 2 TIMES DAILY (route: oral) Med Classific ation: Cardiovas cular Therapy Agents citalopram 20 mg tablet 06-27 00:00: 00 Yes [id number] DEPRESSION 1 tablet BEDTIME 1 tablet BEDTIME (route: oral) Med Classific ation: Central Nervous System Agents clopidogrel 75 mg tablet 06-27 00:00: 00 Yes [id number] HEART 1 tablet DAILY 1 tablet DAILY (route: oral) Med Classific ation: Hematolog ical Agents fluconazole 150 mg tablet 06-27 00:00: 00 10-19 00:00 :00 No [id number] ANTI YEAST 2 tablet DAILY 2 tablet DAILY (route: oral) Med Classific ation: Anti-Infe ctive Agents furosemide 40 mg tablet 06-27 00:00: 00 12-05 00:00 :00 No [id number] EDEMA 1 tablet DAILY 1 tablet DAILY (route: oral) Med Classific ation: Cardiovas cular Therapy Agents Humalog KwikPen (U-100) Insulin 100 unit/mL subcutaneou s 06-27 00:00: 00 Yes [id number] T2DM 20 unit 3 TIMES DAILY 20 unit 3 TIMES DAILY (route: subcutaneo us) Med Classific ation: Endocrine Lantus Solostar U-100 Insulin 100 unit/mL (3 mL[facility] 06-27 00:00: 00 Yes [id number] T2DM 20 unit EVERY PM 20 unit EVERY PM (route: subcutaneo us) Med Classific ation: Endocrine levothyroxi ne 200 mcg tablet 06-27 00:00: 00 Yes [id number] THYROID 1 tablet DAILY 1 tablet DAILY (route: oral) Med Classific ation: Endocrine lisinopril 40 mg tablet 06-27 00:00: 00 Yes [id number] HYPERTENSIO N 1 tablet DAILY 1 tablet DAILY (route: oral) Med Classific ation: Cardiovas cular Therapy Agents pantoprazol e 40 mg tablet,rena yed release 06-27 00:00: 00 12-05 00:00 :00 No [id number] GERD 1 tablet DAILY 1 tablet DAILY (route: oral) Med Classific ation: Gastroint estinal Therapy Agents spironolact one 25 mg tablet 06-27 00:00: 00 Yes [id number] BLOOD PRESSURE 1 tablet DAILY 1 tablet DAILY (route: oral) Med Classific ation: Cardiovas cular Therapy Agents Senna Lax 8.6 mg tablet 10-19 00:00: 00 Yes [id number] STOOL SOFTNER 2 tablet EVERY AM 2 tablet EVERY AM (route: oral) Med Classific ation: Gastroint estinal Therapy Agents gabapentin 100 mg capsule 12-05 00:00: 00 Yes [id number] NEUROPATHY 200 mg 3 TIMES DAILY 200 mg 3 TIMES DAILY (route: oral) Med Classific ation: Central Nervous System Agents hydrocodone 5 mg-acetamin ophen 325 mg tablet 12-05 00:00: 00 Yes [id number] PRN PAIN 1 tablet EVERY 6 HOURS 1 tablet EVERY 6 HOURS (route: oral) Med Classific ation: Analgesic , Anti-infl ammatory or Antipyret ic pramipexole 0.5 mg tablet 12-05 00:00: 00 Yes [id number] BLADDER 1 tablet BEDTIME 1 tablet BEDTIME [...] FOR PODIATRY RN TO OBSERVE AND ASSESS, GAMBRELER HELPER/SURGICAL COORDINATOR TO OBSERVE FOR RISK FOR FALLS AND INSTRUCT IN FALL PREVENTION, HOME SAFETY, MEDICATION MANAGEMENT, INFECTION PREVENTION, AND NUTRITION MANAGEMENT. RN/GAMBRELER HELPER/SURGICAL COORDINATOR NURSE MAY PERFORM O2 SATURATION LEVEL ON ADMISSION AND PRN FOR WOUND COMPLICATIONS FOR RN TO ASSESS/GAMBRELER HELPER TO OBSERVE PATIENT, WITH NOTIFICATION TO THE PHYSICIAN IF SATURATION IS 90% IN THE ABSENCE OF MORE SPECIFIC PARAMETERS FROM THE PHYSICIAN. AGENCY MAY PERFORM A RESUMPTION OF CARE VISIT FOLLOWING ANY HOSPITAL ADMISSION. RN/GAMBRELER HELPER/SURGICAL COORDINATOR TO MONITOR CO-MORBID CONDITIONS LISTED ON THE PLAN OF CARE AND ANY NEW CONDITIONS THAT PRESENT THEMSELVES DURING THIS EPISODE TO IDENTIFY CHANGES AND INTERVENE TO MINIMIZE COMPLICATIONS. [code = RN TO OBSERVE, ASSESS, EVALUATE, AND DEVELOP AN INDIVIDUALIZED PLAN OF CARE. AGENCY MAY ACCEPT ORDERS FROM CONSULTING PHYSICIANS DR MULLINS FOR PODIATRY RN TO OBSERVE AND ASSESS, GAMBRELER HELPER/SURGICAL COORDINATOR TO OBSERVE FOR RISK FOR FALLS AND INSTRUCT IN FALL PREVENTION, HOME SAFETY, MEDICATION MANAGEMENT, INFECTION PREVENTION, AND NUTRITION MANAGEMENT. RN/GAMBRELER HELPER/SURGICAL COORDINATOR NURSE MAY PERFORM O2 SATURATION LEVEL ON ADMISSION AND PRN FOR WOUND COMPLICATIONS FOR RN TO ASSESS/GAMBRELER HELPER TO OBSERVE PATIENT, WITH NOTIFICATION TO THE PHYSICIAN IF SATURATION IS 90% IN THE ABSENCE OF MORE SPECIFIC PARAMETERS FROM THE PHYSICIAN. AGENCY MAY PERFORM A RESUMPTION OF CARE VISIT FOLLOWING ANY HOSPITAL ADMISSION. RN/GAMBRELER HELPER/SURGICAL COORDINATOR TO MONITOR CO-MORBID CONDITIONS LISTED ON THE PLAN OF CARE AND ANY NEW CONDITIONS THAT PRESENT THEMSELVES DURING THIS EPISODE TO IDENTIFY CHANGES AND INTERVENE TO MINIMIZE COMPLICATIONS.] Future Scheduled Test RISK FOR H OSPITALIZATION; RN TO ASSESS/TEACH, SURGICAL COORDINATOR/GAMBRELER HELPER TO OBSERVE/TEACH PATIENT/CAREGIVER ON RISK FOR HOSPITALIZATION/EMERGENCY ROOM VISITS, TEACH SIGNS AND SYMPTOMS THAT PUT PATIENT AT RISK, WHEN TO NOTIFY NURSE/PHYSICIAN OF COMPLICATIONS/DECLINE, AND WHEN TO CALL 911. [code = RISK FOR HOSPITALIZATION; RN TO ASSESS/TEACH, SURGICAL COORDINATOR/GAMBRELER HELPER TO OBSERVE/TEACH PATIENT/CAREGIVER ON RISK FOR HOSPITALIZATION/EMERGENCY ROOM VISITS, TEACH SIGNS AND SYMPTOMS THAT PUT PATIENT AT RISK, WHEN TO NOTIFY NURSE/PHYSICIAN OF COMPLICATIONS/DECLINE, AND WHEN TO CALL 911.] Future Scheduled Test SKIN INTEG RITY RN TO ASSESS AND TEACH, GAMBRELER HELPER/SURGICAL COORDINATOR TO OBSERVE AND TEACH INTEGUMENTARY STATUS TO IDENTIFY CHANGES AND INTERVENE TO MINIMIZE COMPLICATIONS. PROVIDE SKILLED TEACHING OF GENERAL WOUND AND SKIN CARE AND PREVENTION RELATED TO POTENTIAL FOR OR ACTUAL ALTERED SKIN INTEGRITY [code = SKIN INTEGRITY RN TO ASSESS AND TEACH, GAMBRELER HELPER/SURGICAL COORDINATOR TO OBSERVE AND TEACH INTEGUMENTARY STATUS TO IDENTIFY CHANGES AND INTERVENE TO MINIMIZE COMPLICATIONS. PROVIDE SKILLED TEACHING OF GENERAL WOUND AND SKIN CARE AND PREVENTION RELATED TO POTENTIAL FOR OR ACTUAL ALTERED SKIN INTEGRITY ] Future Scheduled Test RN TO ASSE SS, GAMBRELER HELPER/SURGICAL COORDINATOR TO OBSERVE DIABETIC FOOT ULCERS - NEUROPATHIC AND INTERVENE TO MINIMIZE COMPLICATIONS. PROVIDE SKILLED TEACHING TO PATIENT/CAREGIVER RELATED TO ALTERED SKIN INTEGRITY. REPORT SIGNIFICANT CHANGES IN STATUS TO PHYSICIAN FOR EARLY INTERVENTION. [code = RN TO ASSESS, GAMBRELER HELPER/SURGICAL COORDINATOR TO OBSERVE DIABETIC FOOT ULCERS - NEUROPATHIC AND INTERVENE TO MINIMIZE COMPLICATIONS. PROVIDE SKILLED TEACHING TO PATIENT/CAREGIVER RELATED TO ALTERED SKIN INTEGRITY. REPORT SIGNIFICANT CHANGES IN STATUS TO PHYSICIAN FOR EARLY INTERVENTION.] Future Scheduled Test RN/GAMBRELER HELPER/SURGICAL COORDINATOR TO PERFORM/TEACH WOUND CARE TO LEFT FOOT SURGICAL WOUND DAILY AND PRN IF SOILED, DAUGHTER TO DO WOUND CARE WHEN SN NOT VISITING IRRIGATE/CLEANSE WITH SALINE APPLY BETADINE MOISTENED GAUZE PACKED INTO WOUND BED MAY APPLY SKIN BARRIER TO PERIWOUND PRN TO PREVENT MACERATION AND PROTECT PERIWOUND COVER WITH ABD PAD AND GAUZE SECURE WITH KERLIX AND BECCA WRAP [code = RN/GAMBRELER HELPER/SURGICAL COORDINATOR TO PERFORM/TEACH WOUND CARE TO LEFT FOOT SURGICAL WOUND DAILY AND PRN IF SOILED, DAUGHTER TO DO WOUND CARE WHEN SN NOT VISITING IRRIGATE/CLEANSE WITH SALINE APPLY BETADINE MOISTENED GAUZE PACKED INTO WOUND BED MAY APPLY SKIN BARRIER TO PERIWOUND PRN TO PREVENT MACERATION AND PROTECT PERIWOUND COVER WITH ABD PAD AND GAUZE SECURE WITH KERLIX AND BECCA WRAP ] Future Scheduled Test RN/GAMBRELER HELPER/SURGICAL COORDINATOR TO PERFORM/TEACH PATIENT/CAREGIVER WOUND CARE TO DIABETIC ULCER TO RIGHT HEEL AND RIGHT OUTER FOOT IRRIGATE/CLEANSE SALINE APPLY ALGINATE MAY APPLY SKIN BARRIER TO PERIWOUND PRN TO PREVENT MACERATION AND PROTECT PERIWOUND COVER WITH OPTIFOAM BANDAGE OR GAUZE AND KERLIX AND SECURE WITH TAPE CHANGE DRESSING EVERY DAY AND PRN IF SOILED AND CG TO PERFORM IF SN NOT VISITING [code = RN/GAMBRELER HELPER/SURGICAL COORDINATOR TO PERFORM/TEACH PATIENT/CAREGIVER WOUND CARE TO DIABETIC [...] M ANAGEMENT; RN TO ASSESS AND TEACH, SURGICAL COORDINATOR/GAMBRELER HELPER TO OBSERVE AND TEACH INSTRUCTIONS OF DIABETIC CARE TO INCLUDE: DIET DIABETIC SKIN CARE, SIGNS AND SYMPTOMS OF HYPO/HYPERGLYCEMIA, PROPER ADMINISTRATION OF DIABETIC MEDICATION. RN/SURGICAL COORDINATOR/GAMBRELER HELPER TO INSTRUCT ON DIABETIC FOOT CARE AND MONITOR FOR SKIN LESIONS ON LOWER EXTREMITIES. BLOOD GLUCOSE TESTING 2 TIMES DAILY FREQ. RN TO ASSESS AND TEACH, SURGICAL COORDINATOR/GAMBRELER HELPER TO OBSERVE AND TEACH PATIENT/CAREGIVER ABILITY TO PERFORM AND RECORD BLOOD GLUCOSE TESTING ORDERED AND TO REPORT ABNORMAL FINDINGS TO PHYSICIAN. RN/SURGICAL COORDINATOR/GAMBRELER HELPER MAY PERFORM BLOOD GLUCOSE TEST NEEDED. RN/SURGICAL COORDINATOR/GAMBRELER HELPER TO REPORT TO PHYSICIAN BLOOD GLUCOSE READINGS GREATER THAN 300 LESS THAN 80 RN/SURGICAL COORDINATOR/GAMBRELER HELPER TO INSTRUCT PATIENT ON IMPORTANCE OF HGBA1C MONITORING, KIDNEY FUNCTION TEST, EYE AND FOOT EXAMS. [code = DIABETES MANAGEMENT; RN TO ASSESS AND TEACH, SURGICAL COORDINATOR/GAMBRELER HELPER TO OBSERVE AND TEACH INSTRUCTIONS OF DIABETIC CARE TO INCLUDE: DIET DIABETIC SKIN CARE, SIGNS AND SYMPTOMS OF HYPO/HYPERGLYCEMIA, PROPER ADMINISTRATION OF DIABETIC MEDICATION. RN/SURGICAL COORDINATOR/GAMBRELER HELPER TO INSTRUCT ON DIABETIC FOOT CARE AND MONITOR FOR SKIN LESIONS ON LOWER EXTREMITIES. BLOOD GLUCOSE TESTING 2 TIMES DAILY FREQ. RN TO ASSESS AND TEACH, SURGICAL COORDINATOR/GAMBRELER HELPER TO OBSERVE AND TEACH PATIENT/CAREGIVER ABILITY TO PERFORM AND RECORD BLOOD GLUCOSE TESTING ORDERED AND TO REPORT ABNORMAL FINDINGS TO PHYSICIAN. RN/SURGICAL COORDINATOR/GAMBRELER HELPER MAY PERFORM BLOOD GLUCOSE TEST NEEDED. RN/SURGICAL COORDINATOR/GAMBRELER HELPER TO REPORT TO PHYSICIAN BLOOD GLUCOSE READINGS GREATER THAN 300 LESS THAN 80 RN/SURGICAL COORDINATOR/GAMBRELER HELPER TO INSTRUCT PATIENT ON IMPORTANCE OF HGBA1C MONITORING, KIDNEY FUNCTION TEST, EYE AND FOOT EXAMS.] Future Scheduled Test GENITOURIN RICARDO MANAGEMENT; CURRENT UTI RN TO ASSESS AND TEACH, GAMBRELER HELPER/SURGICAL COORDINATOR TO OBSERVE AND TEACH RELATED TO ALTERED GENITOURINARY STATUS TO MINIMIZE COMPLICATIONS AND REDUCE HOSPITALIZATION. [code = GENITOURINARY MANAGEMENT; CURRENT UTI RN TO ASSESS AND TEACH, GAMBRELER HELPER/SURGICAL COORDINATOR TO OBSERVE AND TEACH RELATED TO ALTERED GENITOURINARY STATUS TO MINIMIZE COMPLICATIONS AND REDUCE HOSPITALIZATION.] Future Scheduled Test URINARY TR ACT INFECTION MANAGEMENT; RN/SURGICAL COORDINATOR/GAMBRELER HELPER TO PROVIDE SKILLED TEACHING AND SELF- CARE MANAGEMENT RELATED TO UTI TO MINIMIZE COMPLICATIONS AND REDUCE THE RISK OF HOSPITALIZATION. [code = URINARY TRACT INFECTION MANAGEMENT; RN/SURGICAL COORDINATOR/GAMBRELER HELPER TO PROVIDE SKILLED TEACHING AND SELF- CARE MANAGEMENT RELATED TO UTI TO MINIMIZE COMPLICATIONS AND REDUCE THE RISK OF HOSPITALIZATION.] Future Scheduled Test AGENCY MAY PERFORM A RESUMPTION OF CARE VISIT FOLLOWING ANY HOSPITAL ADMISSION. PT TO EVALUATE, OBSERVE / ASSESS, AND MONITOR, MACHINE HOOP MAKER HELPER TO OBSERVE AND MONITOR, PROVIDE SKILLED THERAPEUTIC INTERVENTION, ACTIVITY, EDUCATION, AND TRAINING TO ADDRESS; THERAPEUTIC EXERCISES AND ESTABLISHING A HOME EXERCISE PROGRAM (PT/MACHINE HOOP MAKER HELPER) WHEELCHAIR MOBILITY AND MANAGEMENT (PT/MACHINE HOOP MAKER HELPER) SIT TO/FROM STAND TRANSFERS (PT/MACHINE HOOP MAKER HELPER) PT / MACHINE HOOP MAKER HELPER TO MONITOR AND EDUCATE ON OXYGEN SATURATION DURING ADLS/IADLS, NOTIFY PHYSICIAN AND/OR THE RN CLINICAL PAYLOADER MACHINE OPERATOR FOR PHYSICIAN NOTIFICATION AND IF O2 SATS BELOW PHYSICIAN ORDERED PARAMETERS AFTER 10 MIN OF REST PT / MACHINE HOOP MAKER HELPER TO INSTRUCT PATIENT/CAREGIVER ON RISK FOR HOSPITALIZATION/EMERGENCY ROOM VISITS, TEACH SIGNS AND SYMPTOMS THAT PUT PATIENT AT RISK, WHEN TO NOTIFY NURSE/PHYSICIAN OF COMPLICATIONS/DECLINE, AND WHEN TO CALL 911. PT/MACHINE HOOP MAKER HELPER TO IDENTIFY FALL RISK FACTORS; EDUCATE THE PATIENT/CAREGIVER ON WAYS TO REDUCE FALL RISK FACTORS AND ESTABLISH HOME EXERCISE PROGRAM TO MINIMIZE FALL RISK. MAY TEACH THE PATIENT FLOOR RECOVERY WHEN CLINICALLY APPROPRIATE [code = AGENCY MAY PERFORM A RESUMPTION OF CARE VISIT FOLLOWING ANY HOSPITAL ADMISSION. PT TO EVALUATE, OBSERVE / ASSESS, AND MONITOR, MACHINE HOOP MAKER HELPER TO OBSERVE AND MONITOR, PROVIDE SKILLED THERAPEUTIC INTERVENTION, ACTIVITY, EDUCATION, AND TRAINING TO ADDRESS; THERAPEUTIC EXERCISES AND ESTABLISHING A HOME EXERCISE PROGRAM (PT/MACHINE HOOP MAKER HELPER) WHEELCHAIR MOBILITY AND MANAGEMENT (PT/MACHINE HOOP MAKER HELPER) SIT TO/FROM STAND TRANSFERS (PT/MACHINE HOOP MAKER HELPER) PT / MACHINE HOOP MAKER HELPER TO MONITOR AND EDUCATE ON OXYGEN SATURATION DURING ADLS/IADLS, NOTIFY PHYSICIAN AND/OR THE RN CLINICAL PAYLOADER MACHINE OPERATOR FOR PHYSICIAN NOTIFICATION AND IF O2 SATS BELOW PHYSICIAN ORDERED PARAMETERS AFTER 10 MIN OF REST PT / MACHINE HOOP MAKER HELPER TO INSTRUCT PATIENT/CAREGIVER ON RISK FOR HOSPITALIZATION/EMERGENCY ROOM VISITS, TEACH SIGNS AND SYMPTOMS THAT PUT PATIENT AT RISK, WHEN TO NOTIFY NURSE/PHYSICIAN OF COMPLICATIONS/DECLINE, AND WHEN TO CALL 911. PT/MACHINE HOOP MAKER HELPER TO IDENTIFY FALL RISK FACTORS; EDUCATE THE PATIENT/CAREGIVER ON WAYS TO REDUCE FALL RISK FACTORS AND ESTABLISH HOME EXERCISE PROGRAM TO MINIMIZE FALL RISK. MAY TEACH THE PATIENT FLOOR RECOVERY WHEN CLINICALLY APPROPRIATE] Future Scheduled Test AGENCY MAY PERFORM A RESUMPTION OF CARE VISIT FOLLOWING ANY HOSPITAL ADMISSION. OT TO EVALUATE, OBSERVE / ASSESS, AND MONITOR, IMPROVEMENT COORDINATOR TO OBSERVE AND MONITOR, PROVIDE SKILLED THERAPEUTIC INTERVENTION, ACTIVITY, EDUCATION, AND TRAINING TO ADDRESS DEFICITS IN: BILATERAL CLUB LOUNGE ATTENDANT STRENGTH/PAIN, ADL PERFORMANCE/SAFETY, SAFETY AWARENESS AND DISEASE MANAGEMENT. OFFICE OF HAILEY MAHAJAN NP, NOTIFIED OF COMPLETION OF THE OCCUPATIONAL THERAPY EVALUATION AND PLAN OF CARE, TO INCLUDE TREATMENT FREQUENCY AND DURATION OF 1W5. ANY CHANGES IN PATIENTS PLAN OF CARE OR TREATMENT FREQUENCY AND DURATION WILL BE DOCUMENTED IN THE PATIENT MEDICAL RECORD. PERSONAL HYGIENE/GROOMING (OT/NAHUN) DRESSING (OT/IMPROVEMENT COORDINATOR) ACTIVITIES OF DAILY LIVING (OT/NAHUN) THERAPEUTIC EXERCISE (OT/IMPROVEMENT COORDINATOR) OT/IMPROVEMENT COORDINATOR MAY EDUCATE ON PAIN MANAGEMENT CLINICALLY INDICATED, INCLUDING NON-PHARMACOLOGICAL PAIN REDUCTION TECHNIQUES AND USE OF CRYOTHERAPY OR HEAT UP TO 20 MIN AT A TIME FOR PAIN MANAGEMENT TO BILATERAL HANDS. OT/NAHUN TO INSTRUCT PATIENT/CAREGIVER ON RISK FOR HOSPITALIZATION/EMERGENCY ROOM VISITS, TEACH SIGNS AND SYMPTOMS THAT PUT PATIENT AT RISK, WHEN TO NOTIFY NURSE/PHYSICIAN OF COMPLICATIONS/DECLINE, AND WHEN TO CALL 911. OT / IMPROVEMENT COORDINATOR TO IDENTIFY FALL RISK FACTORS; EDUCATE THE PATIENT/CAREGIVER ON WAYS TO REDUCE FALL RISK FACTORS AND ESTABLISH HOME EXERCISE PROGRAM TO MINIMIZE FALL RISK. MAY TEACH THE PATIENT FLOOR RECOVERY WHEN CLINICALLY APPROPRIATE. [code = AGENCY MAY PERFORM A RESUMPTION OF CARE VISIT FOLLOWING ANY HOSPITAL ADMISSION. OT TO EVALUATE, OBSERVE / ASSESS, AND MONITOR, IMPROVEMENT COORDINATOR TO OBSERVE AND MONITOR, PROVIDE SKILLED THERAPEUTIC INTERVENTION, ACTIVITY, EDUCATION, AND TRAINING TO ADDRESS DEFICITS IN: BILATERAL CLUB LOUNGE ATTENDANT STRENGTH/PAIN, ADL PERFORMANCE/SAFETY, SAFETY AWARENESS AND DISEASE MANAGEMENT. OFFICE OF HAILEY MAHAJAN NP, NOTIFIED OF COMPLETION OF THE OCCUPATIONAL THERAPY EVALUATION AND PLAN OF CARE, TO INCLUDE TREATMENT FREQUENCY AND DURATION OF 1W5. ANY CHANGES IN PATIENTS PLAN OF CARE OR TREATMENT FREQUENCY AND DURATION WILL BE DOCUMENTED IN THE PATIENT MEDICAL RECORD. PERSONAL HYGIENE/GROOMING (OT/NAHUN) DRESSING (OT/IMPROVEMENT COORDINATOR) ACTIVITIES OF DAILY LIVING (OT/IMPROVEMENT COORDINATOR) THERAPEUTIC EXERCISE (OT/IMPROVEMENT COORDINATOR) OT/IMPROVEMENT COORDINATOR MAY EDUCATE ON PAIN MANAGEMENT CLINICALLY INDICATED, INCLUDING NON-PHARMACOLOGICAL PAIN REDUCTION TECHNIQUES AND USE OF CRYOTHERAPY OR HEAT UP TO 20 MIN AT A TIME FOR PAIN MANAGEMENT TO BILATERAL HANDS. OT/IMPROVEMENT COORDINATOR TO INSTRUCT PATIENT/CAREGIVER ON RISK FOR HOSPITALIZATION/EMERGENCY [...] WEEKS. OT LTG: PATIENT WILL DEMONSTRATE IMPROVED CLUB LOUNGE ATTENDANT STRENGTH EVIDENCED BY AN IMPROVEMENT FROM [...] End Date/Time Encounter Type Admission Type Attending [facility] Care Department Encounter ID Discharge Date Discharge Status Discharge Condition Discharge Reason Percent Goals Met 2024-12-05 00:00:00 2025-02-02 00:00:00 Outpatient SEGUN PICHARDO [facility] [id number]
== END 2025-01-23 11:06 | disposition home or self-care (01) ==
LOC: ER 12:54 → 2ND 18:38
PROVIDERS: Internal Medicine Adolescent Medicine; Nurse Practitioner; Admitting Provider Internal Medicine; Emergency Provider Student in an Organized Health Care Education/Training Program; Visit Provider Internal Medicine
DX: I25.118 Atherosclerotic heart disease of native coronary artery with other forms of angina pectoris (principal); I11.0 Hypertensive heart disease with heart failure; I50.22 Chronic systolic (congestive) heart failure; K80.60 Calculus of gallbladder and bile duct with cholecystitis, unspecified, without obstruction; E11.69 Type 2 diabetes mellitus with other specified complication; E11.610 Type 2 diabetes mellitus with diabetic neuropathic arthropathy; E11.51 Type 2 diabetes mellitus with diabetic peripheral angiopathy without gangrene; E11.621 Type 2 diabetes mellitus with foot ulcer; M86.671 Other chronic osteomyelitis, right ankle and foot; M86.672 Other chronic osteomyelitis, left ankle and foot; L97.519 Non-pressure chronic ulcer of other part of right foot with unspecified severity; L97.529 Non-pressure chronic ulcer of other part of left foot with unspecified severity; K83.8 Other specified diseases of biliary tract; F32.A Depression, unspecified; I49.3 Ventricular premature depolarization; E78.00 Pure hypercholesterolemia, unspecified; I45.2 Bifascicular block; K21.9 Gastro-esophageal reflux disease without esophagitis; K59.09 Other constipation; F17.210 Nicotine dependence, cigarettes, uncomplicated; R79.89 Other specified abnormal findings of blood chemistry; I25.2 Old myocardial infarction; Z89.512 Acquired absence of left leg below knee; Z89.419 Acquired absence of unspecified great toe; Z89.421 Acquired absence of other right toe(s); Z88.8 Allergy status to other drugs, medicaments and biological substances; Z79.4 Long term (current) use of insulin; Z79.84 Long term (current) use of oral hypoglycemic drugs; Z79.02 Long term (current) use of antithrombotics/antiplatelets; Z79.82 Long term (current) use of aspirin; Z79.899 Other long term (current) drug therapy
CPT/HCPCS: 36415; 71045; 74177; 74183; 76376; 76705; 80053; 81001; 82803; 82962; 83690; 83735; 83880; 84484; 85025; 85610; 85730; 93005; 93306; 96372; 96374; 96375; 96376; 97163; 97166; 99285; A9576; G0378; J1171; J1650; J2270; J2405; J7030; Q9967

== ENCOUNTER 2025-02-01 10:28 | Day surgery (SDC) | payer MEDICARE, MEDICAID, SELFPAY ==
[2025-02-01] VITALS (22 sets, daily range): BP systolic 117–199; BP diastolic 43–96; PULSE 58–73; RESP 16–20; TEMP 36.7; O2SAT 92–100; BMI 25.4
--- NOTE | 2025-02-01 07:03 | IR_ITS ---
APPROVED REPORT Patient Location: Outpatient [facility] Operator: KIESHA Chambers RT (R) PROCEDURES Left heart catheterization Left ventriculogram Selective coronary angiogram Bilateral selective renal angiography INDICATION Preoperative evaluation for leg amputation, Abnormal Myoview, Chronic renal failure creatinine 1.3, High pretest likelihood for renal artery stenosis, Renovascular hypertension Informed consent was obtained prior to the procedure. COMPLICATIONS NONE Estimated Blood Loss: LESS THAN 10 ML TECHNIQUE One percent lidocaine was used to anesthetize the right groin. The right femoral artery was accessed via the Seldinger technique. A 4-Danish sheath was placed in the right femoral artery. The JL-4 and JR-4 catheter was also used to perform left heart catheterization left ventriculogram and selective coronary angiogram. JR4 catheter was used to perform bilateral selective renal angiography as well as additional angiography of an accessory renal artery. At the end of the procedure the patient was transferred to the post-op holding area in stable condition for arterial sheath removal. ANGIOGRAPHIC RESULTS The left main artery Has a distal 30 to 40% concentric stenosis The left anterior descending artery Has proximal 20% stenoses with a mid vessel concentric 30 to 40% stenosis with additional diffuse 10 and 20% stenoses. A large first diagonal artery has an ostial 30% stenosis while a larger 2.5 mm second diagonal artery has a proximal concentric 70 to 80% stenosis The circumflex artery Gives rise to a large ramus intermedius which has a mid vessel 50 to 60% stenosis. The circumflex artery itself is nondominant and has mid vessel 50% calcified stenosis supplying a small solitary obtuse marginal artery The right coronary artery Large and dominant with proximal calcified 30% stenosis mid vessel 20% stenosis in the distal concentric 40 and 50% stenosis The EDWARDS ventriculogram reveals Preserved at 55% The left ventricular end-diastolic pressure 10 mmHg Right renal artery singular and has mild 10% atheromatous plaque Left kidney has a dual arterial supply. The superior branch supplies 80% of the kidney and is widely patent with mild 10% stenosis. The inferior branch supplies 20% and has an ostial concentric 90% stenosis IMPRESSION Coronary artery disease as described above Preserved ejection fraction Normal LVEDP Severe left renal artery stenosis and an accessory branch supplying 20% of the left kidney PLAN 1. Patient is an acceptable risk to proceed with vascular surgery. Recommend perioperative beta-blockers and nitrates. No percutaneous cardiac revascularization procedure will alter preoperative or perioperative risk. 2. Given ejection fraction is preserved her cardiac risk is in the mild to moderate range 3. LDL less than 55 to be achieved with high intensity statin 4. Recommend medical management of the left renal artery. After leg amputation if her hypertension remains recalcitrant consideration can be given to revascularize the inferior pole of the left kidney. At this time I believe her blood pressure most likely is from primary hypertension 5. Avoidance of tobacco products Electronically signed by : Armando Felipe MD 02/01/2025 11:42:27
[2025-02-01 11:07] LABS: Hematocrit 33.7 % (37.0-47.0); Hemoglobin 10.9 g/dL (12.2-16.2); Immature Granulocytes % 0.9 %; Mean Corpuscular HGB Conc 32.3 g/dL (31.8-35.4); Mean Corpuscular Hemoglobin 29.3 pg (27.0-31.2); Mean Corpuscular Volume 90.6 fl (81-99); Nucleated Red Blood Cells % 0 %; Platelet Count 245 K/mm3 (142-424); Red Blood Count 3.72 M/mm3 (4.20-5.40); Red Cell Distribution Width-SD 47.2 fL; White Blood Count 7.8 K/mm3 (4.8-10.8)
[2025-02-01] MEDS: LIDOCAINE 1% 10ML MDV 10 ML IJ (11:11)
[2025-02-01] MEDS: 0.9 % SODIUM CHLORIDE 500 ML 25 ML IV (11:11)
[2025-02-01] MEDS: HEPARIN 1,000 UNITS/500ML NS (CATH LAB) 3000 UNIT IV (11:11)
[2025-02-01] MEDS: NITROGLYCERIN 800MCG/8ML SYR (CATH LAB) 800 MCG IA (11:11)
[2025-02-01] MEDS: VERAPAMIL 2.5MG/ML 2ML VIAL 2.5 MG IV (11:12)
[2025-02-01 11:14] LABS: Chloride 103 mmol/L (98-107); Potassium 4.5 mmoL/L (3.5-5.1); Sodium 140 mmol/L (136-145)
[2025-02-01 11:17] LABS: Blood Urea Nitrogen 43 mg/dl (7-17); Creatinine Clearance Estimated 39 mL/min (50-200); Creatinine,Serum 1.50 mg/dl (0.52-1.04); Estimated Glomerular Filt Rate 35 ml/min (>60); GFR (African American) 43 ML/MIN (>60)
[2025-02-01 11:18] LABS: Anion Gap 16.5 mEq/L (5-15); Calcium 10.0 mg/dl (8.4-10.2); Carbon Dioxide 25 mmol/L (22.0-30.0); Glucose 125 mg/dl (74-100)
[2025-02-01] MEDS: FENTANYL 100MCG/2ML VIAL 50 MCG IV (11:34)
[2025-02-01] MEDS: MIDAZOLAM HCL 1MG/ML 5ML VIAL 1 MG IV (11:34)
[2025-02-01] MEDS: ACETAMINOPHEN 325MG TAB 650 MG PO (13:22)
[2025-02-01] MEDS: IOPAMIDOL-370 (76%);100ML BOTTLE 60 ML IV (14:30)
== END 2025-02-01 14:56 | disposition home or self-care (01) ==
PROVIDERS: PCP Nurse Practitioner Family; Visit Provider Internal Medicine
PROC: 4A023N7 Measurement of Cardiac Sampling and Pressure, Left Heart, Percutaneous Approach (ICD-10-PCS; CPT 93452; principal; 2025-02-01 12:00)
DX: Z01.810 Encounter for preprocedural cardiovascular examination (principal); I25.118 Atherosclerotic heart disease of native coronary artery with other forms of angina pectoris; R79.89 Other specified abnormal findings of blood chemistry; R94.31 Abnormal electrocardiogram [ECG] [EKG]; E11.621 Type 2 diabetes mellitus with foot ulcer; L97.519 Non-pressure chronic ulcer of other part of right foot with unspecified severity; E11.22 Type 2 diabetes mellitus with diabetic chronic kidney disease; I13.2 Hypertensive heart and chronic kidney disease with heart failure and with stage 5 chronic kidney disease, or end stage renal disease; R60.0 Localized edema; N18.6 End stage renal disease; E78.5 Hyperlipidemia, unspecified; I73.9 Peripheral vascular disease, unspecified; I50.23 Acute on chronic systolic (congestive) heart failure; R94.30 Abnormal result of cardiovascular function study, unspecified; I73.00 Raynaud's syndrome without gangrene; Z79.4 Long term (current) use of insulin; Z79.84 Long term (current) use of oral hypoglycemic drugs; F17.210 Nicotine dependence, cigarettes, uncomplicated; Z79.82 Long term (current) use of aspirin; Z79.02 Long term (current) use of antithrombotics/antiplatelets; Z79.890 Hormone replacement therapy; Z79.899 Other long term (current) drug therapy; Z82.49 Family history of ischemic heart disease and other diseases of the circulatory system
CPT/HCPCS: 36252; 36415; 80048; 85025; 93458; 99152; C1725; C1769; J1200; J1644; J3010; J7040; Q9967

== ENCOUNTER 2025-02-05 15:36 | Outpatient (CLI) | payer MEDICARE, MEDICAID, SELFPAY ==
--- OUTSIDE RECORDS SUMMARY | 2025-01-17 20:00 | XMS_ITS | Clinical Summary ---
Author Organization Unknown Care Team Providers Care Mononitrotoluene Operator Name Role Phone STACY MAHAJAN SPIRAL TUBE WINDER HELPER, HAILEY Unavailable Unavailab fer CORONA RN, SEGUN Unavailable Unavailable DESHAWN SQL BI DEVELOPER, LAURA Unavailable Unavailable BRIANNA PT, JASE Unavailable Unavailable CLYDE COMMAND POST SUPERINTENDENT, IRMA Unavailable Unavailable JOSE OT, ZEUS Unavailable Unavailable Payers Payer Name Policy Type Policy Number Effective Date Expira tion Date KRISH.JAYMIE.O.C.AUTH [id number] Problems Condition Name Condition Details Condition Category Status Onset Date Resolution Date Last Treatment Date Treating Clinician Comments INFECTION OF AMPUTATION STUMP, RIGHT LOWER EXTREMITY Active 11-06 00:00: 00 INFECTION OF AMPUTATION STUMP, LEFT LOWER EXTREMITY Active 11-06 00:00: 00 METHICILLIN SUSCEP STAPH INFCT CAUSING DIS CLASSD ELSWHR Active 11-06 00:00: 00 TYPE 2 DIABETES W DIABETIC PERIPHERAL ANGIOPATH W/O GANGRENE Active 11-06 00:00: 00 HYP HRT AND CHR KDNY DIS W HRT FAIL AND STG 1-4/UNSP CHR KDNY Active 11-06 00:00: 00 CHRONIC SYSTOLIC (CONGESTIVE) HEART FAILURE Active 11-06 00:00: 00 CHRONIC KIDNEY DISEASE, STAGE 3B Active 06-20 00:00: 00 ATHSCL HEART DISEASE OF [place] CORONARY ARTERY W/O ANG PCTRS Active 06-20 00:00: 00 HYPERLIPIDEM IA, UNSPECIFIED Active 06-20 00:00: 00 IRON DEFICIENCY ANEMIA, UNSPECIFIED Active 11-06 00:00: 00 CHRONIC PAIN SYNDROME Active 06-20 00:00: 00 POLYARTHRITI S, UNSPECIFIED Active 06-20 00:00: 00 GOUT, UNSPECIFIED Active 06-20 00:00: 00 MAJOR DEPRESSIVE DISORDER, RECURRENT, MODERATE Active 06-20 00:00: 00 HYPOTHYROIDI SM, UNSPECIFIED Active 06-20 00:00: 00 CONSTIPATION , UNSPECIFIED Active 06-20 00:00: 00 GASTRO-ESOPH AGEAL REFLUX DISEASE WITHOUT ESOPHAGITIS Active 06-20 00:00: 00 OBSTRUCTIVE SLEEP APNEA (ADULT) (PEDIATRIC) Active 06-20 00:00: 00 GROUP HOME (CURRENT) USE OF INSULIN Active 11-06 00:00: 00 LNG TRM (CRNT) USE INJECTABLE NON-INSULIN ANTIDIABETIC DRUGS Active 11-06 00:00: 00 ACQUIRED ABSENCE OF OTHER RIGHT TOE(S) Active 11-06 00:00: 00 ACQUIRED ABSENCE OF OTHER LEFT TOE(S) Active 11-06 00:00: 00 PERSONAL HISTORY OF DIABETIC FOOT ULCER Active 11-06 00:00: 00 PRESENCE OF OTHER VASCULAR IMPLANTS AND GRAFTS Active 11-06 00:00: 00 Allergies, Adverse Reactions, Alerts Allergy Name Allergy Type Status Severity Reaction(s) Onset Date Inactive Date Treating Clinician Comments NO KNOWN ALLERGIES Propensity to adverse reactions Active 12-05 12:22: 31 Medications Ordered Medication Name Filled Medication Name Start Date Stop Date Current Medication? Ordering Clinician Indication Dosage Frequency Signature (SIG) Comments Components sulfamethox azole 800 mg-trimetho prim 160 mg tablet 2023-06 00:00: 00 10-19 00:00 :00 No [id number] ANTIBIOTIC 1 tablet 2 TIMES DAILY 1 tablet 2 TIMES DAILY (route: oral) Med Classific ation: Anti-Infe ctive Agents gabapentin 800 mg tablet 2023-06 00:00: 00 12-05 00:00 :00 No [id number] PAIN 1 tablet 4 TIMES DAILY 1 tablet 4 TIMES DAILY (route: oral) Med Classific ation: Central Nervous System Agents Ozempic 1 mg/dose (4 mg/3 mL) subcutaneou s pen injector 2023-06 00:00: 00 Yes [id number] T2DM 1 mg WEEKLY 1 mg WEEKLY (route: subcutaneo us) Med Classific ation: Endocrine hydrocodone 10 mg-acetamin ophen 325 mg tablet 2023-06 00:00: 00 12-05 00:00 :00 No [id number] PAIN 1 tablet EVERY 6 HOURS 1 tablet EVERY 6 HOURS (route: oral) Med Classific ation: Analgesic , Anti-infl ammatory or Antipyret ic Relistor 150 mg tablet 2023-06 00:00: 00 Yes [id number] CONSTIPATIO N 3 tablet DAILY 3 tablet DAILY (route: oral) Med Classific ation: Antidotes and other Reversal Agents allopurinol 100 mg tablet 06-27 00:00: 00 12-05 00:00 :00 No [id number] GOUT 1 tablet DAILY 1 tablet DAILY (route: oral) Med Classific ation: Gout and Hyperuric emia Therapy amitriptyli ne 50 mg tablet 06-27 00:00: 00 12-05 00:00 :00 No [id number] DEPRESSION 1 tablet BEDTIME 1 tablet BEDTIME (route: oral) Med Classific ation: Central Nervous System Agents Aspirin Childrens 81 mg chewable tablet 06-27 00:00: 00 Yes [id number] HEART 1 tablet DAILY 1 tablet DAILY (route: oral) Med Classific ation: Hematolog ical Agents atorvastati n 80 mg tablet 06-27 00:00: 00 Yes [id number] CHOLESTEROL 1 tablet BEDTIME 1 tablet BEDTIME (route: oral) Med Classific ation: Cardiovas cular Therapy Agents bupropion HCl SR 150 mg tablet,12 hr sustained-r elease 06-27 00:00: 00 Yes [id number] DEPRESSION 1 tablet 2 TIMES DAILY 1 tablet 2 TIMES DAILY (route: oral) Med Classific ation: Central Nervous System Agents carvedilol 25 mg tablet 06-27 00:00: 00 Yes [id number] BLOOD PRESSURE 1 tablet 2 TIMES DAILY 1 tablet 2 TIMES DAILY (route: oral) Med Classific ation: Cardiovas cular Therapy Agents citalopram 20 mg tablet 06-27 00:00: 00 Yes [id number] DEPRESSION 1 tablet BEDTIME 1 tablet BEDTIME (route: oral) Med Classific ation: Central Nervous System Agents clopidogrel 75 mg tablet 06-27 00:00: 00 Yes [id number] HEART 1 tablet DAILY 1 tablet DAILY (route: oral) Med Classific ation: Hematolog ical Agents fluconazole 150 mg tablet 06-27 00:00: 00 10-19 00:00 :00 No [id number] ANTI YEAST 2 tablet DAILY 2 tablet DAILY (route: oral) Med Classific ation: Anti-Infe ctive Agents furosemide 40 mg tablet 06-27 00:00: 00 12-05 00:00 :00 No [id number] EDEMA 1 tablet DAILY 1 tablet DAILY (route: oral) Med Classific ation: Cardiovas cular Therapy Agents Humalog KwikPen (U-100) Insulin 100 unit/mL subcutaneou s 06-27 00:00: 00 Yes [id number] T2DM 20 unit 3 TIMES DAILY 20 unit 3 TIMES DAILY (route: subcutaneo us) Med Classific ation: Endocrine Lantus Solostar U-100 Insulin 100 unit/mL (3 mL) [facility] 06-27 00:00: 00 Yes [id number] T2DM 20 unit EVERY PM 20 unit EVERY PM (route: subcutaneo us) Med Classific ation: Endocrine levothyroxi ne 200 mcg tablet 06-27 00:00: 00 Yes [id number] THYROID 1 tablet DAILY 1 tablet DAILY (route: oral) Med Classific ation: Endocrine lisinopril 40 mg tablet 06-27 00:00: 00 Yes [id number] HYPERTENSIO N 1 tablet DAILY 1 tablet DAILY (route: oral) Med Classific ation: Cardiovas cular Therapy Agents pantoprazol e 40 mg tablet,rena yed release 06-27 00:00: 00 12-05 00:00 :00 No [id number] GERD 1 tablet DAILY 1 tablet DAILY (route: oral) Med Classific ation: Gastroint estinal Therapy Agents spironolact one 25 mg tablet 06-27 00:00: 00 Yes [id number] BLOOD PRESSURE 1 tablet DAILY 1 tablet DAILY (route: oral) Med Classific ation: Cardiovas cular Therapy Agents Senna Lax 8.6 mg tablet 10-19 00:00: 00 Yes [id number] STOOL SOFTNER 2 tablet EVERY AM 2 tablet EVERY AM (route: oral) Med Classific ation: Gastroint estinal Therapy Agents gabapentin 100 mg capsule 12-05 00:00: 00 Yes [id number] NEUROPATHY 200 mg 3 TIMES DAILY 200 mg 3 TIMES DAILY (route: oral) Med Classific ation: Central Nervous System Agents hydrocodone 5 mg-acetamin ophen 325 mg tablet 12-05 00:00: 00 Yes [id number] PRN PAIN 1 tablet EVERY 6 HOURS 1 tablet EVERY 6 HOURS (route: oral) Med Classific ation: Analgesic , Anti-infl ammatory or Antipyret ic pramipexole 0.5 mg tablet 12-05 00:00: 00 Yes [id number] BLADDER 1 tablet BEDTIME 1 tablet BEDTIME (route: oral) Med Classific ation: Central Nervous System Agents Vital Signs Vital Name Observation Time Observation Value Commen ts Temperature 2025-01-18 16:23:00.000 98.3 [degF] Temperature 2025-01-09 20:34:00.000 97.8 [degF] Temperature 2025-01-08 13:09:00.000 98 [degF] Temperature 2024-12-24 13:58:00.000 97.2 [degF] Temperature 2024-12-18 14:49:00.000 97.7 [degF] Temperature 2024-12-12 17:03:00.000 97.4 [degF] Temperature 2024-12-07 14:36:00.000 98.5 [degF] Temperature 2024-12-05 12:30:00.000 98.4 [degF] BMI (%) 2024-12-05 12:14:46.000 26 kg/m2 Height 2024-12-05 12:14:40.000 62 [in_us] Pulse 2025-01-18 16:23:00.000 75 /min Pulse 2025-01-09 20:34:00.000 72 /min Pulse 2025-01-08 13:09:00.000 76 /min Pulse 2024-12-28 13:34:00.000 78 /min Pulse 2024-12-24 13:58:00.000 80 /min Pulse 2024-12-19 14:32:00.000 88 /min Pulse 2024-12-18 14:49:00.000 75 /min Pulse 2024-12-12 17:03:00.000 88 /min Pulse 2024-12-12 15:28:00.000 88 /min Pulse 2024-12-07 14:36:00.000 64 /min Pulse 2024-12-05 12:30:00.000 56 /min O2 Saturation (%) 2025-01-08 13:09:00.000 98 % O2 Saturation (%) 2024-12-28 13:34:00.000 98 % O2 Saturation (%) 2024-12-19 14:32:00.000 98 % O2 Saturation (%) 2024-12-18 14:49:00.000 99 % O2 Saturation (%) 2024-12-12 15:28:00.000 99 % Respirations 2025-01-18 16:23:00.000 16 /min Respirations 2025-01-09 20:34:00.000 18 /min Respirations 2025-01-08 13:09:00.000 17 /min Respirations 2024-12-28 13:34:00.000 18 /min Respirations 2024-12-24 13:58:00.000 18 /min Respirations 2024-12-19 14:32:00.000 18 /min Respirations 2024-12-18 14:49:00.000 18 /min Respirations 2024-12-12 17:03:00.000 18 /min Respirations 2024-12-12 15:28:00.000 18 /min Respirations 2024-12-07 14:36:00.000 18 /min Respirations 2024-12-05 12:30:00.000 18 /min Weight (lbs) 2024-12-05 12:14:46.000 144 [lb_av] Systolic Blood Pressure 2025-01-18 16:23:00.000 136 mm [Hg] Systolic Blood Pressure 2025-01-09 20:34:00.000 147 mm [Hg] Systolic Blood Pressure 2025-01-08 13:09:00.000 130 mm [Hg] Systolic Blood Pressure 2024-12-24 13:58:00.000 110 mm [Hg] Systolic Blood Pressure 2024-12-19 14:32:00.000 128 mm [Hg] Systolic Blood Pressure 2024-12-18 14:49:00.000 132 mm [Hg] Systolic Blood Pressure 2024-12-12 17:03:00.000 142 mm [Hg] Systolic Blood Pressure 2024-12-12 15:28:00.000 142 mm [Hg] Systolic Blood Pressure 2024-12-07 14:36:00.000 116 mm [Hg] Systolic Blood Pressure 2024-12-05 12:30:00.000 109 mm [Hg] Diastolic Blood Pressure 2025-01-18 16:23:00.000 72 mm [Hg] Diastolic Blood Pressure 2025-01-09 20:34:00.000 77 mm [Hg] Diastolic Blood Pressure 2025-01-08 13:09:00.000 70 mm [Hg] Diastolic Blood Pressure 2024-12-24 13:58:00.000 78 mm [Hg] Diastolic Blood Pressure 2024-12-19 14:32:00.000 70 mm [Hg] Diastolic Blood Pressure 2024-12-18 14:49:00.000 90 mm [Hg] Diastolic Blood Pressure 2024-12-12 17:03:00.000 68 mm [Hg] Diastolic Blood Pressure 2024-12-12 15:28:00.000 68 mm [Hg] Diastolic Blood Pressure 2024-12-07 14:36:00.000 70 mm [Hg] Diastolic Blood Pressure 2024-12-05 12:30:00.000 70 mm [Hg] Plan of Treatment Planned Activity Planned Date Details Comments Future Scheduled Test RN TO OBSE RVE, ASSESS, EVALUATE, AND DEVELOP AN INDIVIDUALIZED PLAN OF CARE. AGENCY MAY ACCEPT ORDERS FROM CONSULTING PHYSICIANS DR MULLINS FOR PODIATRY RN TO OBSERVE AND ASSESS, SQL BI DEVELOPER/EMPLOYMENT ATTORNEY TO OBSERVE FOR RISK FOR FALLS AND INSTRUCT IN FALL PREVENTION, HOME SAFETY, MEDICATION MANAGEMENT, INFECTION PREVENTION, AND NUTRITION MANAGEMENT. RN/SQL BI DEVELOPER/EMPLOYMENT ATTORNEY NURSE MAY PERFORM O2 SATURATION LEVEL ON ADMISSION AND PRN FOR WOUND COMPLICATIONS FOR RN TO ASSESS/SQL BI DEVELOPER TO OBSERVE PATIENT, WITH NOTIFICATION TO THE PHYSICIAN IF SATURATION IS 90% IN THE ABSENCE OF MORE SPECIFIC PARAMETERS FROM THE PHYSICIAN. AGENCY MAY PERFORM A RESUMPTION OF CARE VISIT FOLLOWING ANY HOSPITAL ADMISSION. RN/SQL BI DEVELOPER/EMPLOYMENT ATTORNEY TO MONITOR CO-MORBID CONDITIONS LISTED ON THE PLAN OF CARE AND ANY NEW CONDITIONS THAT PRESENT THEMSELVES DURING THIS EPISODE TO IDENTIFY CHANGES AND INTERVENE TO MINIMIZE COMPLICATIONS. [code = RN TO OBSERVE, ASSESS, EVALUATE, AND DEVELOP AN INDIVIDUALIZED PLAN OF CARE. AGENCY MAY ACCEPT ORDERS FROM CONSULTING PHYSICIANS DR MULLINS FOR PODIATRY RN TO OBSERVE AND ASSESS, SQL BI DEVELOPER/EMPLOYMENT ATTORNEY TO OBSERVE FOR RISK FOR FALLS AND INSTRUCT IN FALL PREVENTION, HOME SAFETY, MEDICATION MANAGEMENT, INFECTION PREVENTION, AND NUTRITION MANAGEMENT. RN/SQL BI DEVELOPER/EMPLOYMENT ATTORNEY NURSE MAY PERFORM O2 SATURATION LEVEL ON ADMISSION AND PRN FOR WOUND COMPLICATIONS FOR RN TO ASSESS/SQL BI DEVELOPER TO OBSERVE PATIENT, WITH NOTIFICATION TO THE PHYSICIAN IF SATURATION IS 90% IN THE ABSENCE OF MORE SPECIFIC PARAMETERS FROM THE PHYSICIAN. AGENCY MAY PERFORM A RESUMPTION OF CARE VISIT FOLLOWING ANY HOSPITAL ADMISSION. RN/SQL BI DEVELOPER/EMPLOYMENT ATTORNEY TO MONITOR CO-MORBID CONDITIONS LISTED ON THE PLAN OF CARE AND ANY NEW CONDITIONS THAT PRESENT THEMSELVES DURING THIS EPISODE TO IDENTIFY CHANGES AND INTERVENE TO MINIMIZE COMPLICATIONS.] Future Scheduled Test RISK FOR H OSPITALIZATION; RN TO ASSESS/TEACH, EMPLOYMENT ATTORNEY/SQL BI DEVELOPER TO OBSERVE/TEACH PATIENT/CAREGIVER ON RISK FOR HOSPITALIZATION/EMERGENCY ROOM VISITS, TEACH SIGNS AND SYMPTOMS THAT PUT PATIENT AT RISK, WHEN TO NOTIFY NURSE/PHYSICIAN OF COMPLICATIONS/DECLINE, AND WHEN TO CALL 911. [code = RISK FOR HOSPITALIZATION; RN TO ASSESS/TEACH, EMPLOYMENT ATTORNEY/SQL BI DEVELOPER TO OBSERVE/TEACH PATIENT/CAREGIVER ON RISK FOR HOSPITALIZATION/EMERGENCY ROOM VISITS, TEACH SIGNS AND SYMPTOMS THAT PUT PATIENT AT RISK, WHEN TO NOTIFY NURSE/PHYSICIAN OF COMPLICATIONS/DECLINE, AND WHEN TO CALL 911.] Future Scheduled Test SKIN INTEG RITY RN TO ASSESS AND TEACH, SQL BI DEVELOPER/EMPLOYMENT ATTORNEY TO OBSERVE AND TEACH INTEGUMENTARY STATUS TO IDENTIFY CHANGES AND INTERVENE TO MINIMIZE COMPLICATIONS. PROVIDE SKILLED TEACHING OF GENERAL WOUND AND SKIN CARE AND PREVENTION RELATED TO POTENTIAL FOR OR ACTUAL ALTERED SKIN INTEGRITY [code = SKIN INTEGRITY RN TO ASSESS AND TEACH, SQL BI DEVELOPER/EMPLOYMENT ATTORNEY TO OBSERVE AND TEACH INTEGUMENTARY STATUS TO IDENTIFY CHANGES AND INTERVENE TO MINIMIZE COMPLICATIONS. PROVIDE SKILLED TEACHING OF GENERAL WOUND AND SKIN CARE AND PREVENTION RELATED TO POTENTIAL FOR OR ACTUAL ALTERED SKIN INTEGRITY ] Future Scheduled Test RN TO ASSE SS, SQL BI DEVELOPER/EMPLOYMENT ATTORNEY TO OBSERVE DIABETIC FOOT ULCERS - NEUROPATHIC AND INTERVENE TO MINIMIZE COMPLICATIONS. PROVIDE SKILLED TEACHING TO PATIENT/CAREGIVER RELATED TO ALTERED SKIN INTEGRITY. REPORT SIGNIFICANT CHANGES IN STATUS TO PHYSICIAN FOR EARLY INTERVENTION. [code = RN TO ASSESS, SQL BI DEVELOPER/EMPLOYMENT ATTORNEY TO OBSERVE DIABETIC FOOT ULCERS - NEUROPATHIC AND INTERVENE TO MINIMIZE COMPLICATIONS. PROVIDE SKILLED TEACHING TO PATIENT/CAREGIVER RELATED TO ALTERED SKIN INTEGRITY. REPORT SIGNIFICANT CHANGES IN STATUS TO PHYSICIAN FOR EARLY INTERVENTION.] Future Scheduled Test RN/SQL BI DEVELOPER/EMPLOYMENT ATTORNEY TO PERFORM/TEACH WOUND CARE TO LEFT FOOT SURGICAL WOUND DAILY AND PRN IF SOILED, DAUGHTER TO DO WOUND CARE WHEN SN NOT VISITING IRRIGATE/CLEANSE WITH SALINE APPLY BETADINE MOISTENED GAUZE PACKED INTO WOUND BED MAY APPLY SKIN BARRIER TO PERIWOUND PRN TO PREVENT MACERATION AND PROTECT PERIWOUND COVER WITH ABD PAD AND GAUZE SECURE WITH KERLIX AND BECCA WRAP [code = RN/SQL BI DEVELOPER/EMPLOYMENT ATTORNEY TO PERFORM/TEACH WOUND CARE TO LEFT FOOT SURGICAL WOUND DAILY AND PRN IF SOILED, DAUGHTER TO DO WOUND CARE WHEN SN NOT VISITING IRRIGATE/CLEANSE WITH SALINE APPLY BETADINE MOISTENED GAUZE PACKED INTO WOUND BED MAY APPLY SKIN BARRIER TO PERIWOUND PRN TO PREVENT MACERATION AND PROTECT PERIWOUND COVER WITH ABD PAD AND GAUZE SECURE WITH KERLIX AND BECCA WRAP ] Future Scheduled Test RN/SQL BI DEVELOPER/EMPLOYMENT ATTORNEY TO PERFORM/TEACH PATIENT/CAREGIVER WOUND CARE TO DIABETIC ULCER TO RIGHT HEEL AND RIGHT OUTER FOOT IRRIGATE/CLEANSE SALINE APPLY ALGINATE MAY APPLY SKIN BARRIER TO PERIWOUND PRN TO PREVENT MACERATION AND PROTECT PERIWOUND COVER WITH OPTIFOAM BANDAGE OR GAUZE AND KERLIX AND SECURE WITH TAPE CHANGE DRESSING EVERY DAY AND PRN IF SOILED AND CG TO PERFORM IF SN NOT VISITING [code = RN/SQL BI DEVELOPER/EMPLOYMENT ATTORNEY TO PERFORM/TEACH PATIENT/CAREGIVER WOUND CARE TO DIABETIC ULCER TO RIGHT HEEL AND RIGHT OUTER FOOT IRRIGATE/CLEANSE SALINE APPLY ALGINATE MAY APPLY SKIN BARRIER TO PERIWOUND PRN TO PREVENT MACERATION AND PROTECT PERIWOUND COVER WITH OPTIFOAM BANDAGE OR GAUZE AND KERLIX AND SECURE WITH TAPE CHANGE DRESSING EVERY DAY AND PRN IF SOILED AND CG TO PERFORM IF SN NOT VISITING ] Future Scheduled Test DIABETES M ANAGEMENT; RN TO ASSESS AND TEACH, EMPLOYMENT ATTORNEY/SQL BI DEVELOPER TO OBSERVE AND TEACH INSTRUCTIONS OF DIABETIC CARE TO INCLUDE: DIET DIABETIC SKIN CARE, SIGNS AND SYMPTOMS OF HYPO/HYPERGLYCEMIA, PROPER ADMINISTRATION OF DIABETIC MEDICATION. RN/EMPLOYMENT ATTORNEY/SQL BI DEVELOPER TO INSTRUCT ON DIABETIC FOOT CARE AND MONITOR FOR SKIN LESIONS ON LOWER EXTREMITIES. BLOOD GLUCOSE TESTING 2 TIMES DAILY FREQ. RN TO ASSESS AND TEACH, EMPLOYMENT ATTORNEY/SQL BI DEVELOPER TO OBSERVE AND TEACH PATIENT/CAREGIVER ABILITY TO PERFORM AND RECORD BLOOD GLUCOSE TESTING ORDERED AND TO REPORT ABNORMAL FINDINGS TO PHYSICIAN. RN/EMPLOYMENT ATTORNEY/SQL BI DEVELOPER MAY PERFORM BLOOD GLUCOSE TEST NEEDED. RN/EMPLOYMENT ATTORNEY/SQL BI DEVELOPER TO REPORT TO PHYSICIAN BLOOD GLUCOSE READINGS GREATER THAN 300 LESS THAN 80 RN/EMPLOYMENT ATTORNEY/SQL BI DEVELOPER TO INSTRUCT PATIENT ON IMPORTANCE OF HGBA1C MONITORING, KIDNEY FUNCTION TEST, EYE AND FOOT EXAMS. [code = DIABETES MANAGEMENT; RN TO ASSESS AND TEACH, EMPLOYMENT ATTORNEY/SQL BI DEVELOPER TO OBSERVE AND TEACH INSTRUCTIONS OF DIABETIC CARE TO INCLUDE: DIET DIABETIC SKIN CARE, SIGNS AND SYMPTOMS OF HYPO/HYPERGLYCEMIA, PROPER ADMINISTRATION OF DIABETIC MEDICATION. RN/EMPLOYMENT ATTORNEY/SQL BI DEVELOPER TO INSTRUCT ON DIABETIC FOOT CARE AND MONITOR FOR SKIN LESIONS ON LOWER EXTREMITIES. BLOOD GLUCOSE TESTING 2 TIMES DAILY FREQ. RN TO ASSESS AND TEACH, EMPLOYMENT ATTORNEY/SQL BI DEVELOPER TO OBSERVE AND TEACH PATIENT/CAREGIVER ABILITY TO PERFORM AND RECORD BLOOD GLUCOSE TESTING ORDERED AND TO REPORT ABNORMAL FINDINGS TO PHYSICIAN. RN/EMPLOYMENT ATTORNEY/SQL BI DEVELOPER MAY PERFORM BLOOD GLUCOSE TEST NEEDED. RN/EMPLOYMENT ATTORNEY/SQL BI DEVELOPER TO REPORT TO PHYSICIAN BLOOD GLUCOSE READINGS GREATER THAN 300 LESS THAN 80 RN/EMPLOYMENT ATTORNEY/SQL BI DEVELOPER TO INSTRUCT PATIENT ON IMPORTANCE OF HGBA1C MONITORING, KIDNEY FUNCTION TEST, EYE AND FOOT EXAMS.] Future Scheduled Test GENITOURIN RICARDO MANAGEMENT; CURRENT UTI RN TO ASSESS AND TEACH, SQL BI DEVELOPER/EMPLOYMENT ATTORNEY TO OBSERVE AND TEACH RELATED TO ALTERED GENITOURINARY STATUS TO MINIMIZE COMPLICATIONS AND REDUCE HOSPITALIZATION. [code = GENITOURINARY MANAGEMENT; CURRENT UTI RN TO ASSESS AND TEACH, SQL BI DEVELOPER/EMPLOYMENT ATTORNEY TO OBSERVE AND TEACH RELATED TO ALTERED GENITOURINARY STATUS TO MINIMIZE COMPLICATIONS AND REDUCE HOSPITALIZATION.] Future Scheduled Test URINARY TR ACT INFECTION MANAGEMENT; RN/EMPLOYMENT ATTORNEY/SQL BI DEVELOPER TO PROVIDE SKILLED TEACHING AND SELF- CARE MANAGEMENT RELATED TO UTI TO MINIMIZE COMPLICATIONS AND REDUCE THE RISK OF HOSPITALIZATION. [code = URINARY TRACT INFECTION MANAGEMENT; RN/EMPLOYMENT ATTORNEY/SQL BI DEVELOPER TO PROVIDE SKILLED TEACHING AND SELF- CARE MANAGEMENT RELATED TO UTI TO MINIMIZE COMPLICATIONS AND REDUCE THE RISK OF HOSPITALIZATION.] Future Scheduled Test AGENCY MAY PERFORM A RESUMPTION OF CARE VISIT FOLLOWING ANY HOSPITAL ADMISSION. PT TO EVALUATE, OBSERVE / ASSESS, AND MONITOR, COMMAND POST SUPERINTENDENT TO OBSERVE AND MONITOR, PROVIDE SKILLED THERAPEUTIC INTERVENTION, ACTIVITY, EDUCATION, AND TRAINING TO ADDRESS; THERAPEUTIC EXERCISES AND ESTABLISHING A HOME EXERCISE PROGRAM (PT/COMMAND POST SUPERINTENDENT) WHEELCHAIR MOBILITY AND MANAGEMENT (PT/COMMAND POST SUPERINTENDENT) SIT TO/FROM STAND TRANSFERS (PT/COMMAND POST SUPERINTENDENT) PT / COMMAND POST SUPERINTENDENT TO MONITOR AND EDUCATE ON OXYGEN SATURATION DURING ADLS/IADLS, NOTIFY PHYSICIAN AND/OR THE RN CLINICAL ACID CRANE OPERATOR FOR PHYSICIAN NOTIFICATION AND IF O2 SATS BELOW PHYSICIAN ORDERED PARAMETERS AFTER 10 MIN OF REST PT / COMMAND POST SUPERINTENDENT TO INSTRUCT PATIENT/CAREGIVER ON RISK FOR HOSPITALIZATION/EMERGENCY ROOM VISITS, TEACH SIGNS AND SYMPTOMS THAT PUT PATIENT AT RISK, WHEN TO NOTIFY NURSE/PHYSICIAN OF COMPLICATIONS/DECLINE, AND WHEN TO CALL 911. PT/COMMAND POST SUPERINTENDENT TO IDENTIFY FALL RISK FACTORS; EDUCATE THE PATIENT/CAREGIVER ON WAYS TO REDUCE FALL RISK FACTORS AND ESTABLISH HOME EXERCISE PROGRAM TO MINIMIZE FALL RISK. MAY TEACH THE PATIENT FLOOR RECOVERY WHEN CLINICALLY APPROPRIATE [code = AGENCY MAY PERFORM A RESUMPTION OF CARE VISIT FOLLOWING ANY HOSPITAL ADMISSION. PT TO EVALUATE, OBSERVE / ASSESS, AND MONITOR, COMMAND POST SUPERINTENDENT TO OBSERVE AND MONITOR, PROVIDE SKILLED THERAPEUTIC INTERVENTION, ACTIVITY, EDUCATION, AND TRAINING TO ADDRESS; THERAPEUTIC EXERCISES AND ESTABLISHING A HOME EXERCISE PROGRAM (PT/COMMAND POST SUPERINTENDENT) WHEELCHAIR MOBILITY AND MANAGEMENT (PT/COMMAND POST SUPERINTENDENT) SIT TO/FROM STAND TRANSFERS (PT/COMMAND POST SUPERINTENDENT) PT / COMMAND POST SUPERINTENDENT TO MONITOR AND EDUCATE ON OXYGEN SATURATION DURING ADLS/IADLS, NOTIFY PHYSICIAN AND/OR THE RN CLINICAL ACID CRANE OPERATOR FOR PHYSICIAN NOTIFICATION AND IF O2 SATS BELOW PHYSICIAN ORDERED PARAMETERS AFTER 10 MIN OF REST PT / COMMAND POST SUPERINTENDENT TO INSTRUCT PATIENT/CAREGIVER ON RISK FOR HOSPITALIZATION/EMERGENCY ROOM VISITS, TEACH SIGNS AND SYMPTOMS THAT PUT PATIENT AT RISK, WHEN TO NOTIFY NURSE/PHYSICIAN OF COMPLICATIONS/DECLINE, AND WHEN TO CALL 911. PT/COMMAND POST SUPERINTENDENT TO IDENTIFY FALL RISK FACTORS; EDUCATE THE PATIENT/CAREGIVER ON WAYS TO REDUCE FALL RISK FACTORS AND ESTABLISH HOME EXERCISE PROGRAM TO MINIMIZE FALL RISK. MAY TEACH THE PATIENT FLOOR RECOVERY WHEN CLINICALLY APPROPRIATE] Future Scheduled Test AGENCY MAY PERFORM A RESUMPTION OF CARE VISIT FOLLOWING ANY HOSPITAL ADMISSION. OT TO EVALUATE, OBSERVE / ASSESS, AND MONITOR, NOTCHING MACHINE OPERATOR TO OBSERVE AND MONITOR, PROVIDE SKILLED THERAPEUTIC INTERVENTION, ACTIVITY, EDUCATION, AND TRAINING TO ADDRESS DEFICITS IN: BILATERAL STACK ATTENDANT STRENGTH/PAIN, ADL PERFORMANCE/SAFETY, SAFETY AWARENESS AND DISEASE MANAGEMENT. OFFICE OF HAILEY MAHAJAN NP, NOTIFIED OF COMPLETION OF THE OCCUPATIONAL THERAPY EVALUATION AND PLAN OF CARE, TO INCLUDE TREATMENT FREQUENCY AND DURATION OF 1W5. ANY CHANGES IN PATIENTS PLAN OF CARE OR TREATMENT FREQUENCY AND DURATION WILL BE DOCUMENTED IN THE PATIENT MEDICAL RECORD. PERSONAL HYGIENE/GROOMING (OT/NOTCHING MACHINE OPERATOR) DRESSING (OT/NOTCHING MACHINE OPERATOR) ACTIVITIES OF DAILY LIVING (OT/NOTCHING MACHINE OPERATOR) THERAPEUTIC EXERCISE (OT/NAUHN) OT/NOTCHING MACHINE OPERATOR MAY EDUCATE ON PAIN MANAGEMENT CLINICALLY INDICATED, INCLUDING NON-PHARMACOLOGICAL PAIN REDUCTION TECHNIQUES AND USE OF CRYOTHERAPY OR HEAT UP TO 20 MIN AT A TIME FOR PAIN MANAGEMENT TO BILATERAL HANDS. OT/NAHUN TO INSTRUCT PATIENT/CAREGIVER ON RISK FOR HOSPITALIZATION/EMERGENCY ROOM VISITS, TEACH SIGNS AND SYMPTOMS THAT PUT PATIENT AT RISK, WHEN TO NOTIFY NURSE/PHYSICIAN OF COMPLICATIONS/DECLINE, AND WHEN TO CALL 911. OT / NOTCHING MACHINE OPERATOR TO IDENTIFY FALL RISK FACTORS; EDUCATE THE PATIENT/CAREGIVER ON WAYS TO REDUCE FALL RISK FACTORS AND ESTABLISH HOME EXERCISE PROGRAM TO MINIMIZE FALL RISK. MAY TEACH THE PATIENT FLOOR RECOVERY WHEN CLINICALLY APPROPRIATE. [code = AGENCY MAY PERFORM A RESUMPTION OF CARE VISIT FOLLOWING ANY HOSPITAL ADMISSION. OT TO EVALUATE, OBSERVE / ASSESS, AND MONITOR, NOTCHING MACHINE OPERATOR TO OBSERVE AND MONITOR, PROVIDE SKILLED THERAPEUTIC INTERVENTION, ACTIVITY, EDUCATION, AND TRAINING TO ADDRESS DEFICITS IN: BILATERAL STACK ATTENDANT STRENGTH/PAIN, ADL PERFORMANCE/SAFETY, SAFETY AWARENESS AND DISEASE MANAGEMENT. OFFICE OF HAILEY MAHAJAN NP, NOTIFIED OF COMPLETION OF THE OCCUPATIONAL THERAPY EVALUATION AND PLAN OF CARE, TO INCLUDE TREATMENT FREQUENCY AND DURATION OF 1W5. ANY CHANGES IN PATIENTS PLAN OF CARE OR TREATMENT FREQUENCY AND DURATION WILL BE DOCUMENTED IN THE PATIENT MEDICAL RECORD. PERSONAL HYGIENE/GROOMING (OT/NOTCHING MACHINE OPERATOR) DRESSING (OT/NOTCHING MACHINE OPERATOR) ACTIVITIES OF DAILY LIVING (OT/NOTCHING MACHINE OPERATOR) THERAPEUTIC EXERCISE (OT/NOTCHING MACHINE OPERATOR) OT/NOTCHING MACHINE OPERATOR MAY EDUCATE ON PAIN MANAGEMENT CLINICALLY INDICATED, INCLUDING NON-PHARMACOLOGICAL PAIN REDUCTION TECHNIQUES AND USE OF CRYOTHERAPY OR HEAT UP TO 20 MIN AT A TIME FOR PAIN MANAGEMENT TO BILATERAL HANDS. OT/NOTCHING MACHINE OPERATOR TO INSTRUCT PATIENT/CAREGIVER ON RISK FOR HOSPITALIZATION/EMERGENCY ROOM VISITS, TEACH SIGNS AND SYMPTOMS THAT PUT PATIENT AT RISK, WHEN TO NOTIFY NURSE/PHYSICIAN OF COMPLICATIONS/DECLINE, AND WHEN TO CALL 911. OT / NAHUN TO IDENTIFY FALL RISK FACTORS; EDUCATE THE PATIENT/CAREGIVER ON WAYS TO REDUCE FALL RISK FACTORS AND ESTABLISH HOME EXERCISE PROGRAM TO MINIMIZE FALL RISK. MAY TEACH THE PATIENT FLOOR RECOVERY WHEN CLINICALLY APPROPRIATE.] Goal 2025-01-18 Patient Goal - TO HEAL THESE WOUNDS Goal Provider Goal - A PLAN OF CARE WILL BE ESTABLISHED THAT MEETS THE PATIENTS NEEDS. PATIENT WILL DEMONSTRATE OXYGEN SATURATION WITHIN NORMAL LIMITS OR PATIENTS OPTIMAL LEVEL ESTABLISHED BY THE PHYSICIAN THROUGHOUT CARE. CHANGES TO CO-MORBID CONDITIONS AND ANY NEW CONDITIONS WILL BE IDENTIFIED AND REPORTED TO THE PHYSICIAN. Goal Provider Goal - PATIENT/CAREGIVER WILL VERBALIZE UNDERSTANDING OF SIGNS AND SYMPTOMS THAT PUT THE PATIENT AT RISK FOR HOSPITALIZATION /EMERGENCY ROOM VISITS, WHEN TO NOTIFY NURSE/PHYSICIAN OF COMPLICATIONS/DECLINE AND WHEN TO CALL 911. Goal Provider Goal - CHANGES IN SKIN INTEGRITY STATUS WILL BE IDENTIFIED AND REPORTED TO THE PHYSICIAN FOR PROMPT INTERVENTION. PATIENT / CAREGIVER WILL VERBALIZE/DEMONSTRATE ADEQUATE KNOWLEDGE OF INTEGUMENTARY STATUS AND APPROPRIATE MEASURES TO PROMOTE SKIN INTEGRITY AND PREVENT INJURY BY END OF EPISODE Goal Provider Goal - CHANGES IN SKIN INTEGRITY STATUS WILL BE IDENTIFIED AND REPORTED TO THE PHYSICIAN FOR PROMPT INTERVENTION. PATIENT / CAREGIVER WILL VERBALIZE/DEMONSTRATE ADEQUATE KNOWLEDGE OF INTEGUMENTARY STATUS AND APPROPRIATE MEASURES TO PROMOTE SKIN INTEGRITY AND PREVENT INJURY BY END OF EPISODE Goal Provider Goal - PATIENT / CAREGIVER WILL VERBALIZE / DEMONSTRATE ABILITY TO PERFORM WOUND CARE. WOUND STATUS WILL IMPROVE EVIDENCED BY A DECREASE IN SIZE, DRAINAGE, ABSENCE OF INFECTION, AND DECREASED PAIN BY END OF EPISODE. Goal Provider Goal - PATIENT / CAREGIVER WILL VERBALIZE/DEMONSTRATE ABILITY TO PERFORM WOUND CARE. WOUND STATUS WILL IMPROVE EVIDENCED BY A DECREASE IN SIZE, DRAINAGE, ABSENCE OF INFECTION, AND DECREASED PAIN BY 60 DAYS Goal Provider Goal - PATIENT / CAREGIVER WILL VERBALIZE / DEMONSTRATE AN ABILITY TO ADHERE TO SELF-MANAGEMENT OF DIABETES MANAGEMENT BY END OF EPISODE Goal Provider Goal - PATIENT / CAREGIVER WILL VERBALIZE/DEMONSTRATE UNDERSTANDING OF MEASURES TO MANAGE ALTERED GENITOURINARY STATUS BY END OF EPISODE. Goal Provider Goal - PATIENT/CAREGIVER WILL VERBALIZE/DEMONSTRATE UNDERSTANDING OF CARE AND MANAGEMENT OF URINARY TRACT INFECTION BY 2 WEEKS Goal Provider Goal - PT STG: PATIENT WILL DEMONSTRATE IMPROVEMENT ON CHAIR RISE TEST FROM 1 TO 3 INDICATING DECREASED FALL RISK WITHIN 4 WEEKS. PT LTG: PATIENT WILL DEMONSTRATE IMPROVEMENT ON CHAIR RISE TEST FROM 1 TO 5 INDICATING DECREASED FALL RISK WITHIN 8 WEEKS. PT LTG: PATIENT WILL DEMONSTRATE INDEPENDENCE AND COMPLIANCE WITH HEP WITHIN 4 WEEKS PT LTG: PATIENT WILL DEMONSTRATE IMPROVED WHEELCHAIR MOBILITY FROM SBA TO IND WITHIN 8 WEEKS IN ORDER TO IMPROVE MOBILITY THROUGHOUT HOME PT LTG: PATIENT WILL DEMONSTRATE IMPROVED ABILITY TO PERFORM SIT TO/FROM STAND TRANSFERS TO REDUCE THE RISK OF SKIN BREAKDOWN AND REDUCE FALL RISK FROM CGA TO IND WITHIN 8 WEEKS PT LTG: PATIENT WILL MAINTAIN OXYGEN SATURATION WITHIN PHYSICIAN ORDERED PARAMETERS THROUGHOUT EPISODE OF CARE. PT GOAL: PATIENT/CAREGIVER WILL VERBALIZE UNDERSTANDING OF SIGNS AND SYMPTOMS THAT PUT THE PATIENT AT RISK FOR HOSPITALIZATION /EMERGENCY ROOM VISITS, WHEN TO NOTIFY NURSE/PHYSICIAN OF COMPLICATIONS/DECLINE AND WHEN TO CALL 911. PT LTG: PATIENT/CAREGIVER WILL DEMONSTRATE ADHERENCE TO FALL REDUCTION SELF-MANAGEMENT AND REDUCING FALL RISK FACTORS TO MINIMIZE FALL RISK BY END OF EPISODE. Goal Provider Goal - OT LTG: PATIENT WILL DEMONSTRATE IMPROVED ABILITY TO PERFORM GROOMING FROM MIN TO IND WITHIN 5 WEEKS. OT LTG: PATIENT WILL DEMONSTRATE IMPROVED ABILITY TO PERFORM LOWER BODY DRESSING TO REDUCE CAREGIVER BURDEN FROM MIN TO IND WITHIN 5 WEEKS. OT LTG: PATIENT WILL DEMONSTRATE IMPROVEMENT IN MODIFIED HITESH INDEX SCORE FROM 69 TO 75 INDICATING DECREASED DEPENDENCY ON CAREGIVER ASSISTANCE WITH ACTIVITIES OF DAILY LIVING WITHIN 5 WEEKS. OT LTG: PATIENT WILL DEMONSTRATE IMPROVED STACK ATTENDANT STRENGTH EVIDENCED BY AN IMPROVEMENT FROM 3+/5 TO 4/5 WITHIN 5 WEEKS IN ORDER TO INCREASE GRASP TO PERFORM ADLS. OT LTG: PATIENT WILL DEMONSTRATE UNDERSTANDING OF PAIN MANAGEMENT TECHNIQUES EVIDENCED BY REDUCED PAIN IN BILATERAL HANDS FROM 7/10 TO 4/10 WITHIN 5 WEEKS. PATIENT/CAREGIVER WILL VERBALIZE UNDERSTANDING OF SIGNS AND SYMPTOMS THAT PUT THE PATIENT AT RISK FOR HOSPITALIZATION /EMERGENCY ROOM VISITS, WHEN TO NOTIFY NURSE/PHYSICIAN OF COMPLICATIONS/DECLINE AND WHEN TO CALL 911. OT LTG: PATIENT/CAREGIVER WILL BE ABLE TO IMPLEMENT RECOMMENDATIONS SPECIFIC TO FALL REDUCTION FOR IMPROVED ADL/IADL COMPLETION AND HOME SAFETY BY END OF EPISODE. Reason for Visit INDEPENDENT WITH USE OF ASSISTIVE DEVICE Encounters Start Date/Time End Date/Time Encounter Type Admission Type Attending [facility] Care Department Encounter ID Discharge Date Discharge Status Discharge Condition Discharge Reason Percent Goals Met 2024-12-05 00:00:00 2025-01-18 00:00:00 Outpatient SEGUN PICHARDO [facility] [id number] 2025-01-18 00:00:00 DISCHARGE TO HOME OR SELF CARE INDEPENDEN T WITH USE OF ASSISTIVE DEVICE HH - OTHER (PROVIDE DETAILS IN COORD NOTE) 90.00
--- OUTSIDE RECORDS SUMMARY | 2025-01-17 20:00 | XMS_ITS | Clinical Summary ---
Author Organization Unknown Care Team Providers Care Sponge Maker Name Role Phone STACY MAHAJAN NIGHT SHIFT SUPERVISOR, HAILEY Unavailable Unavailab fer CORONA RN, SEGUN Unavailable Unavailable DESHAWN PROSTHETIC TECHNICIAN, LAURA Unavailable Unavailable BRIANNA PT, JASE Unavailable Unavailable CLYDE SECURITY RESEARCHER, IRMA Unavailable Unavailable JOSE OT, ZEUS Unavailable Unavailable Payers Payer Name Policy Type Policy Number Effective Date Expira tion Date KRISH.JAYMIE.O.C.AUTH [id number] Problems Condition Name Condition Details Condition Category [...] 06-20 00:00: 00 ATHSCL HEART DISEASE OF [place] CORONARY ARTERY W/O ANG PCTRS Active 06-20 [...] APNEA (ADULT) (PEDIATRIC) Active 06-20 00:00: 00 FDC (CURRENT) USE OF INSULIN Active 11-06 00:00: [...] 2023-06 00:00: 00 10-19 00:00 :00 No [id number] ANTIBIOTIC 1 tablet 2 TIMES DAILY 1 tablet 2 TIMES DAILY (route: oral) Med Classific ation: Anti-Infe ctive Agents gabapentin 800 mg tablet 2023-06 00:00: 00 12-05 00:00 :00 No [id number] PAIN 1 tablet 4 TIMES DAILY 1 tablet 4 TIMES DAILY (route: oral) Med Classific ation: Central Nervous System Agents Ozempic 1 mg/dose (4 mg/3 mL) subcutaneou s pen injector 2023-06 00:00: 00 Yes [id number] T2DM 1 mg WEEKLY 1 mg WEEKLY (route: subcutaneo us) Med Classific ation: Endocrine hydrocodone 10 mg-acetamin ophen 325 mg tablet 2023-06 00:00: 00 12-05 00:00 :00 No [id number] PAIN 1 tablet EVERY 6 HOURS 1 tablet EVERY 6 HOURS (route: oral) Med Classific ation: Analgesic , Anti-infl ammatory or Antipyret ic Relistor 150 mg tablet 2023-06 00:00: 00 Yes [id number] CONSTIPATIO N 3 tablet DAILY 3 tablet DAILY (route: oral) Med Classific ation: Antidotes and other Reversal Agents allopurinol 100 mg tablet 06-27 00:00: 00 12-05 00:00 :00 No [id number] GOUT 1 tablet DAILY 1 tablet DAILY (route: oral) Med Classific ation: Gout and Hyperuric emia Therapy amitriptyli ne 50 mg tablet 06-27 00:00: 00 12-05 00:00 :00 No [id number] DEPRESSION 1 tablet BEDTIME 1 tablet BEDTIME (route: oral) Med Classific ation: Central Nervous System Agents Aspirin Childrens 81 mg chewable tablet 06-27 00:00: 00 Yes [id number] HEART 1 tablet DAILY 1 tablet DAILY (route: oral) Med Classific ation: Hematolog ical Agents atorvastati n 80 mg tablet 06-27 00:00: 00 Yes [id number] CHOLESTEROL 1 tablet BEDTIME 1 tablet BEDTIME (route: oral) Med Classific ation: Cardiovas cular Therapy Agents bupropion HCl SR 150 mg tablet,12 hr sustained-r elease 06-27 00:00: 00 Yes [id number] DEPRESSION 1 tablet 2 TIMES DAILY 1 tablet 2 TIMES DAILY (route: oral) Med Classific ation: Central Nervous System Agents carvedilol 25 mg tablet 06-27 00:00: 00 Yes [id number] BLOOD PRESSURE 1 tablet 2 TIMES DAILY 1 tablet 2 TIMES DAILY (route: oral) Med Classific ation: Cardiovas cular Therapy Agents citalopram 20 mg tablet 06-27 00:00: 00 Yes [id number] DEPRESSION 1 tablet BEDTIME 1 tablet BEDTIME (route: oral) Med Classific ation: Central Nervous System Agents clopidogrel 75 mg tablet 06-27 00:00: 00 Yes [id number] HEART 1 tablet DAILY 1 tablet DAILY (route: oral) Med Classific ation: Hematolog ical Agents fluconazole 150 mg tablet 06-27 00:00: 00 10-19 00:00 :00 No [id number] ANTI YEAST 2 tablet DAILY 2 tablet DAILY (route: oral) Med Classific ation: Anti-Infe ctive Agents furosemide 40 mg tablet 06-27 00:00: 00 12-05 00:00 :00 No [id number] EDEMA 1 tablet DAILY 1 tablet DAILY (route: oral) Med Classific ation: Cardiovas cular Therapy Agents Humalog KwikPen (U-100) Insulin 100 unit/mL subcutaneou s 06-27 00:00: 00 Yes [id number] T2DM 20 unit 3 TIMES DAILY 20 unit 3 TIMES DAILY (route: subcutaneo us) Med Classific ation: Endocrine Lantus Solostar U-100 Insulin 100 unit/mL (3 mL) [facility] 06-27 00:00: 00 Yes [id number] T2DM 20 unit EVERY PM 20 unit EVERY PM (route: subcutaneo us) Med Classific ation: Endocrine levothyroxi ne 200 mcg tablet 06-27 00:00: 00 Yes [id number] THYROID 1 tablet DAILY 1 tablet DAILY (route: oral) Med Classific ation: Endocrine lisinopril 40 mg tablet 06-27 00:00: 00 Yes [id number] HYPERTENSIO N 1 tablet DAILY 1 tablet DAILY (route: oral) Med Classific ation: Cardiovas cular Therapy Agents pantoprazol e 40 mg tablet,rena yed release 06-27 00:00: 00 12-05 00:00 :00 No [id number] GERD 1 tablet DAILY 1 tablet DAILY (route: oral) Med Classific ation: Gastroint estinal Therapy Agents spironolact one 25 mg tablet 06-27 00:00: 00 Yes [id number] BLOOD PRESSURE 1 tablet DAILY 1 tablet DAILY (route: oral) Med Classific ation: Cardiovas cular Therapy Agents Senna Lax 8.6 mg tablet 10-19 00:00: 00 Yes [id number] STOOL SOFTNER 2 tablet EVERY AM 2 tablet EVERY AM (route: oral) Med Classific ation: Gastroint estinal Therapy Agents gabapentin 100 mg capsule 12-05 00:00: 00 Yes [id number] NEUROPATHY 200 mg 3 TIMES DAILY 200 mg 3 TIMES DAILY (route: oral) Med Classific ation: Central Nervous System Agents hydrocodone 5 mg-acetamin ophen 325 mg tablet 12-05 00:00: 00 Yes [id number] PRN PAIN 1 tablet EVERY 6 HOURS 1 tablet EVERY 6 HOURS (route: oral) Med Classific ation: Analgesic , Anti-infl ammatory or Antipyret ic pramipexole 0.5 mg tablet 12-05 00:00: 00 Yes [id number] BLADDER 1 tablet BEDTIME 1 tablet BEDTIME [...] FOR PODIATRY RN TO OBSERVE AND ASSESS, PROSTHETIC TECHNICIAN/LICENSED APPRAISER TO OBSERVE FOR RISK FOR FALLS AND INSTRUCT IN FALL PREVENTION, HOME SAFETY, MEDICATION MANAGEMENT, INFECTION PREVENTION, AND NUTRITION MANAGEMENT. RN/PROSTHETIC TECHNICIAN/LICENSED APPRAISER NURSE MAY PERFORM O2 SATURATION LEVEL ON ADMISSION AND PRN FOR WOUND COMPLICATIONS FOR RN TO ASSESS/PROSTHETIC TECHNICIAN TO OBSERVE PATIENT, WITH NOTIFICATION TO THE PHYSICIAN IF SATURATION IS 90% IN THE ABSENCE OF MORE SPECIFIC PARAMETERS FROM THE PHYSICIAN. AGENCY MAY PERFORM A RESUMPTION OF CARE VISIT FOLLOWING ANY HOSPITAL ADMISSION. RN/PROSTHETIC TECHNICIAN/LICENSED APPRAISER TO MONITOR CO-MORBID CONDITIONS LISTED ON THE PLAN OF CARE AND ANY NEW CONDITIONS THAT PRESENT THEMSELVES DURING THIS EPISODE TO IDENTIFY CHANGES AND INTERVENE TO MINIMIZE COMPLICATIONS. [code = RN TO OBSERVE, ASSESS, EVALUATE, AND DEVELOP AN INDIVIDUALIZED PLAN OF CARE. AGENCY MAY ACCEPT ORDERS FROM CONSULTING PHYSICIANS DR MULLINS FOR PODIATRY RN TO OBSERVE AND ASSESS, PROSTHETIC TECHNICIAN/LICENSED APPRAISER TO OBSERVE FOR RISK FOR FALLS AND INSTRUCT IN FALL PREVENTION, HOME SAFETY, MEDICATION MANAGEMENT, INFECTION PREVENTION, AND NUTRITION MANAGEMENT. RN/PROSTHETIC TECHNICIAN/LICENSED APPRAISER NURSE MAY PERFORM O2 SATURATION LEVEL ON ADMISSION AND PRN FOR WOUND COMPLICATIONS FOR RN TO ASSESS/PROSTHETIC TECHNICIAN TO OBSERVE PATIENT, WITH NOTIFICATION TO THE PHYSICIAN IF SATURATION IS 90% IN THE ABSENCE OF MORE SPECIFIC PARAMETERS FROM THE PHYSICIAN. AGENCY MAY PERFORM A RESUMPTION OF CARE VISIT FOLLOWING ANY HOSPITAL ADMISSION. RN/PROSTHETIC TECHNICIAN/LICENSED APPRAISER TO MONITOR CO-MORBID CONDITIONS LISTED ON THE PLAN OF CARE AND ANY NEW CONDITIONS THAT PRESENT THEMSELVES DURING THIS EPISODE TO IDENTIFY CHANGES AND INTERVENE TO MINIMIZE COMPLICATIONS.] Future Scheduled Test RISK FOR H OSPITALIZATION; RN TO ASSESS/TEACH, LICENSED APPRAISER/PROSTHETIC TECHNICIAN TO OBSERVE/TEACH PATIENT/CAREGIVER ON RISK FOR HOSPITALIZATION/EMERGENCY ROOM VISITS, TEACH SIGNS AND SYMPTOMS THAT PUT PATIENT AT RISK, WHEN TO NOTIFY NURSE/PHYSICIAN OF COMPLICATIONS/DECLINE, AND WHEN TO CALL 911. [code = RISK FOR HOSPITALIZATION; RN TO ASSESS/TEACH, LICENSED APPRAISER/PROSTHETIC TECHNICIAN TO OBSERVE/TEACH PATIENT/CAREGIVER ON RISK FOR HOSPITALIZATION/EMERGENCY ROOM VISITS, TEACH SIGNS AND SYMPTOMS THAT PUT PATIENT AT RISK, WHEN TO NOTIFY NURSE/PHYSICIAN OF COMPLICATIONS/DECLINE, AND WHEN TO CALL 911.] Future Scheduled Test SKIN INTEG RITY RN TO ASSESS AND TEACH, PROSTHETIC TECHNICIAN/LICENSED APPRAISER TO OBSERVE AND TEACH INTEGUMENTARY STATUS TO IDENTIFY CHANGES AND INTERVENE TO MINIMIZE COMPLICATIONS. PROVIDE SKILLED TEACHING OF GENERAL WOUND AND SKIN CARE AND PREVENTION RELATED TO POTENTIAL FOR OR ACTUAL ALTERED SKIN INTEGRITY [code = SKIN INTEGRITY RN TO ASSESS AND TEACH, PROSTHETIC TECHNICIAN/LICENSED APPRAISER TO OBSERVE AND TEACH INTEGUMENTARY STATUS TO IDENTIFY CHANGES AND INTERVENE TO MINIMIZE COMPLICATIONS. PROVIDE SKILLED TEACHING OF GENERAL WOUND AND SKIN CARE AND PREVENTION RELATED TO POTENTIAL FOR OR ACTUAL ALTERED SKIN INTEGRITY ] Future Scheduled Test RN TO ASSE SS, PROSTHETIC TECHNICIAN/LICENSED APPRAISER TO OBSERVE DIABETIC FOOT ULCERS - NEUROPATHIC AND INTERVENE TO MINIMIZE COMPLICATIONS. PROVIDE SKILLED TEACHING TO PATIENT/CAREGIVER RELATED TO ALTERED SKIN INTEGRITY. REPORT SIGNIFICANT CHANGES IN STATUS TO PHYSICIAN FOR EARLY INTERVENTION. [code = RN TO ASSESS, PROSTHETIC TECHNICIAN/LICENSED APPRAISER TO OBSERVE DIABETIC FOOT ULCERS - NEUROPATHIC AND INTERVENE TO MINIMIZE COMPLICATIONS. PROVIDE SKILLED TEACHING TO PATIENT/CAREGIVER RELATED TO ALTERED SKIN INTEGRITY. REPORT SIGNIFICANT CHANGES IN STATUS TO PHYSICIAN FOR EARLY INTERVENTION.] Future Scheduled Test RN/PROSTHETIC TECHNICIAN/LICENSED APPRAISER TO PERFORM/TEACH WOUND CARE TO LEFT FOOT SURGICAL WOUND DAILY AND PRN IF SOILED, DAUGHTER TO DO WOUND CARE WHEN SN NOT VISITING IRRIGATE/CLEANSE WITH SALINE APPLY BETADINE MOISTENED GAUZE PACKED INTO WOUND BED MAY APPLY SKIN BARRIER TO PERIWOUND PRN TO PREVENT MACERATION AND PROTECT PERIWOUND COVER WITH ABD PAD AND GAUZE SECURE WITH KERLIX AND BECCA WRAP [code = RN/PROSTHETIC TECHNICIAN/LICENSED APPRAISER TO PERFORM/TEACH WOUND CARE TO LEFT FOOT SURGICAL WOUND DAILY AND PRN IF SOILED, DAUGHTER TO DO WOUND CARE WHEN SN NOT VISITING IRRIGATE/CLEANSE WITH SALINE APPLY BETADINE MOISTENED GAUZE PACKED INTO WOUND BED MAY APPLY SKIN BARRIER TO PERIWOUND PRN TO PREVENT MACERATION AND PROTECT PERIWOUND COVER WITH ABD PAD AND GAUZE SECURE WITH KERLIX AND BECCA WRAP ] Future Scheduled Test RN/PROSTHETIC TECHNICIAN/LICENSED APPRAISER TO PERFORM/TEACH PATIENT/CAREGIVER WOUND CARE TO DIABETIC ULCER TO RIGHT HEEL AND RIGHT OUTER FOOT IRRIGATE/CLEANSE SALINE APPLY ALGINATE MAY APPLY SKIN BARRIER TO PERIWOUND PRN TO PREVENT MACERATION AND PROTECT PERIWOUND COVER WITH OPTIFOAM BANDAGE OR GAUZE AND KERLIX AND SECURE WITH TAPE CHANGE DRESSING EVERY DAY AND PRN IF SOILED AND CG TO PERFORM IF SN NOT VISITING [code = RN/PROSTHETIC TECHNICIAN/LICENSED APPRAISER TO PERFORM/TEACH PATIENT/CAREGIVER WOUND CARE TO DIABETIC [...] M ANAGEMENT; RN TO ASSESS AND TEACH, LICENSED APPRAISER/PROSTHETIC TECHNICIAN TO OBSERVE AND TEACH INSTRUCTIONS OF DIABETIC CARE TO INCLUDE: DIET DIABETIC SKIN CARE, SIGNS AND SYMPTOMS OF HYPO/HYPERGLYCEMIA, PROPER ADMINISTRATION OF DIABETIC MEDICATION. RN/LICENSED APPRAISER/PROSTHETIC TECHNICIAN TO INSTRUCT ON DIABETIC FOOT CARE AND MONITOR FOR SKIN LESIONS ON LOWER EXTREMITIES. BLOOD GLUCOSE TESTING 2 TIMES DAILY FREQ. RN TO ASSESS AND TEACH, LICENSED APPRAISER/PROSTHETIC TECHNICIAN TO OBSERVE AND TEACH PATIENT/CAREGIVER ABILITY TO PERFORM AND RECORD BLOOD GLUCOSE TESTING ORDERED AND TO REPORT ABNORMAL FINDINGS TO PHYSICIAN. RN/LICENSED APPRAISER/PROSTHETIC TECHNICIAN MAY PERFORM BLOOD GLUCOSE TEST NEEDED. RN/LICENSED APPRAISER/PROSTHETIC TECHNICIAN TO REPORT TO PHYSICIAN BLOOD GLUCOSE READINGS GREATER THAN 300 LESS THAN 80 RN/LICENSED APPRAISER/PROSTHETIC TECHNICIAN TO INSTRUCT PATIENT ON IMPORTANCE OF HGBA1C MONITORING, KIDNEY FUNCTION TEST, EYE AND FOOT EXAMS. [code = DIABETES MANAGEMENT; RN TO ASSESS AND TEACH, LICENSED APPRAISER/PROSTHETIC TECHNICIAN TO OBSERVE AND TEACH INSTRUCTIONS OF DIABETIC CARE TO INCLUDE: DIET DIABETIC SKIN CARE, SIGNS AND SYMPTOMS OF HYPO/HYPERGLYCEMIA, PROPER ADMINISTRATION OF DIABETIC MEDICATION. RN/LICENSED APPRAISER/PROSTHETIC TECHNICIAN TO INSTRUCT ON DIABETIC FOOT CARE AND MONITOR FOR SKIN LESIONS ON LOWER EXTREMITIES. BLOOD GLUCOSE TESTING 2 TIMES DAILY FREQ. RN TO ASSESS AND TEACH, LICENSED APPRAISER/PROSTHETIC TECHNICIAN TO OBSERVE AND TEACH PATIENT/CAREGIVER ABILITY TO PERFORM AND RECORD BLOOD GLUCOSE TESTING ORDERED AND TO REPORT ABNORMAL FINDINGS TO PHYSICIAN. RN/LICENSED APPRAISER/PROSTHETIC TECHNICIAN MAY PERFORM BLOOD GLUCOSE TEST NEEDED. RN/LICENSED APPRAISER/PROSTHETIC TECHNICIAN TO REPORT TO PHYSICIAN BLOOD GLUCOSE READINGS GREATER THAN 300 LESS THAN 80 RN/LICENSED APPRAISER/PROSTHETIC TECHNICIAN TO INSTRUCT PATIENT ON IMPORTANCE OF HGBA1C MONITORING, KIDNEY FUNCTION TEST, EYE AND FOOT EXAMS.] Future Scheduled Test GENITOURIN RICARDO MANAGEMENT; CURRENT UTI RN TO ASSESS AND TEACH, PROSTHETIC TECHNICIAN/LICENSED APPRAISER TO OBSERVE AND TEACH RELATED TO ALTERED GENITOURINARY STATUS TO MINIMIZE COMPLICATIONS AND REDUCE HOSPITALIZATION. [code = GENITOURINARY MANAGEMENT; CURRENT UTI RN TO ASSESS AND TEACH, PROSTHETIC TECHNICIAN/LICENSED APPRAISER TO OBSERVE AND TEACH RELATED TO ALTERED GENITOURINARY STATUS TO MINIMIZE COMPLICATIONS AND REDUCE HOSPITALIZATION.] Future Scheduled Test URINARY TR ACT INFECTION MANAGEMENT; RN/LICENSED APPRAISER/PROSTHETIC TECHNICIAN TO PROVIDE SKILLED TEACHING AND SELF- CARE MANAGEMENT RELATED TO UTI TO MINIMIZE COMPLICATIONS AND REDUCE THE RISK OF HOSPITALIZATION. [code = URINARY TRACT INFECTION MANAGEMENT; RN/LICENSED APPRAISER/PROSTHETIC TECHNICIAN TO PROVIDE SKILLED TEACHING AND SELF- CARE MANAGEMENT RELATED TO UTI TO MINIMIZE COMPLICATIONS AND REDUCE THE RISK OF HOSPITALIZATION.] Future Scheduled Test AGENCY MAY PERFORM A RESUMPTION OF CARE VISIT FOLLOWING ANY HOSPITAL ADMISSION. PT TO EVALUATE, OBSERVE / ASSESS, AND MONITOR, SECURITY RESEARCHER TO OBSERVE AND MONITOR, PROVIDE SKILLED THERAPEUTIC INTERVENTION, ACTIVITY, EDUCATION, AND TRAINING TO ADDRESS; THERAPEUTIC EXERCISES AND ESTABLISHING A HOME EXERCISE PROGRAM (PT/SECURITY RESEARCHER) WHEELCHAIR MOBILITY AND MANAGEMENT (PT/SECURITY RESEARCHER) SIT TO/FROM STAND TRANSFERS (PT/SECURITY RESEARCHER) PT / SECURITY RESEARCHER TO MONITOR AND EDUCATE ON OXYGEN SATURATION DURING ADLS/IADLS, NOTIFY PHYSICIAN AND/OR THE RN CLINICAL STAFF APPRAISER FOR PHYSICIAN NOTIFICATION AND IF O2 SATS BELOW PHYSICIAN ORDERED PARAMETERS AFTER 10 MIN OF REST PT / SECURITY RESEARCHER TO INSTRUCT PATIENT/CAREGIVER ON RISK FOR HOSPITALIZATION/EMERGENCY ROOM VISITS, TEACH SIGNS AND SYMPTOMS THAT PUT PATIENT AT RISK, WHEN TO NOTIFY NURSE/PHYSICIAN OF COMPLICATIONS/DECLINE, AND WHEN TO CALL 911. PT/SECURITY RESEARCHER TO IDENTIFY FALL RISK FACTORS; EDUCATE THE PATIENT/CAREGIVER ON WAYS TO REDUCE FALL RISK FACTORS AND ESTABLISH HOME EXERCISE PROGRAM TO MINIMIZE FALL RISK. MAY TEACH THE PATIENT FLOOR RECOVERY WHEN CLINICALLY APPROPRIATE [code = AGENCY MAY PERFORM A RESUMPTION OF CARE VISIT FOLLOWING ANY HOSPITAL ADMISSION. PT TO EVALUATE, OBSERVE / ASSESS, AND MONITOR, SECURITY RESEARCHER TO OBSERVE AND MONITOR, PROVIDE SKILLED THERAPEUTIC INTERVENTION, ACTIVITY, EDUCATION, AND TRAINING TO ADDRESS; THERAPEUTIC EXERCISES AND ESTABLISHING A HOME EXERCISE PROGRAM (PT/SECURITY RESEARCHER) WHEELCHAIR MOBILITY AND MANAGEMENT (PT/SECURITY RESEARCHER) SIT TO/FROM STAND TRANSFERS (PT/SECURITY RESEARCHER) PT / SECURITY RESEARCHER TO MONITOR AND EDUCATE ON OXYGEN SATURATION DURING ADLS/IADLS, NOTIFY PHYSICIAN AND/OR THE RN CLINICAL STAFF APPRAISER FOR PHYSICIAN NOTIFICATION AND IF O2 SATS BELOW PHYSICIAN ORDERED PARAMETERS AFTER 10 MIN OF REST PT / SECURITY RESEARCHER TO INSTRUCT PATIENT/CAREGIVER ON RISK FOR HOSPITALIZATION/EMERGENCY ROOM VISITS, TEACH SIGNS AND SYMPTOMS THAT PUT PATIENT AT RISK, WHEN TO NOTIFY NURSE/PHYSICIAN OF COMPLICATIONS/DECLINE, AND WHEN TO CALL 911. PT/SECURITY RESEARCHER TO IDENTIFY FALL RISK FACTORS; EDUCATE THE PATIENT/CAREGIVER ON WAYS TO REDUCE FALL RISK FACTORS AND ESTABLISH HOME EXERCISE PROGRAM TO MINIMIZE FALL RISK. MAY TEACH THE PATIENT FLOOR RECOVERY WHEN CLINICALLY APPROPRIATE] Future Scheduled Test AGENCY MAY PERFORM A RESUMPTION OF CARE VISIT FOLLOWING ANY HOSPITAL ADMISSION. OT TO EVALUATE, OBSERVE / ASSESS, AND MONITOR, MOTOR POLARIZER TO OBSERVE AND MONITOR, PROVIDE SKILLED THERAPEUTIC INTERVENTION, ACTIVITY, EDUCATION, AND TRAINING TO ADDRESS DEFICITS IN: BILATERAL CATTLE DEHORNER STRENGTH/PAIN, ADL PERFORMANCE/SAFETY, SAFETY AWARENESS AND DISEASE MANAGEMENT. OFFICE OF HAILEY MAHAJAN NP, NOTIFIED OF COMPLETION OF THE OCCUPATIONAL THERAPY EVALUATION AND PLAN OF CARE, TO INCLUDE TREATMENT FREQUENCY AND DURATION OF 1W5. ANY CHANGES IN PATIENTS PLAN OF CARE OR TREATMENT FREQUENCY AND DURATION WILL BE DOCUMENTED IN THE PATIENT MEDICAL RECORD. PERSONAL HYGIENE/GROOMING (OT/MOTOR POLARIZER) DRESSING (OT/MOTOR POLARIZER) ACTIVITIES OF DAILY LIVING (OT/MOTOR POLARIZER) THERAPEUTIC EXERCISE (OT/NAHUN) OT/MOTOR POLARIZER MAY EDUCATE ON PAIN MANAGEMENT CLINICALLY INDICATED, INCLUDING NON-PHARMACOLOGICAL PAIN REDUCTION TECHNIQUES AND USE OF CRYOTHERAPY OR HEAT UP TO 20 MIN AT A TIME FOR PAIN MANAGEMENT TO BILATERAL HANDS. OT/NAHUN TO INSTRUCT PATIENT/CAREGIVER ON RISK FOR HOSPITALIZATION/EMERGENCY ROOM VISITS, TEACH SIGNS AND SYMPTOMS THAT PUT PATIENT AT RISK, WHEN TO NOTIFY NURSE/PHYSICIAN OF COMPLICATIONS/DECLINE, AND WHEN TO CALL 911. OT / MOTOR POLARIZER TO IDENTIFY FALL RISK FACTORS; EDUCATE THE PATIENT/CAREGIVER ON WAYS TO REDUCE FALL RISK FACTORS AND ESTABLISH HOME EXERCISE PROGRAM TO MINIMIZE FALL RISK. MAY TEACH THE PATIENT FLOOR RECOVERY WHEN CLINICALLY APPROPRIATE. [code = AGENCY MAY PERFORM A RESUMPTION OF CARE VISIT FOLLOWING ANY HOSPITAL ADMISSION. OT TO EVALUATE, OBSERVE / ASSESS, AND MONITOR, MOTOR POLARIZER TO OBSERVE AND MONITOR, PROVIDE SKILLED THERAPEUTIC INTERVENTION, ACTIVITY, EDUCATION, AND TRAINING TO ADDRESS DEFICITS IN: BILATERAL CATTLE DEHORNER STRENGTH/PAIN, ADL PERFORMANCE/SAFETY, SAFETY AWARENESS AND DISEASE MANAGEMENT. OFFICE OF HAILEY MAHAJAN NP, NOTIFIED OF COMPLETION OF THE OCCUPATIONAL THERAPY EVALUATION AND PLAN OF CARE, TO INCLUDE TREATMENT FREQUENCY AND DURATION OF 1W5. ANY CHANGES IN PATIENTS PLAN OF CARE OR TREATMENT FREQUENCY AND DURATION WILL BE DOCUMENTED IN THE PATIENT MEDICAL RECORD. PERSONAL HYGIENE/GROOMING (OT/MOTOR POLARIZER) DRESSING (OT/MOTOR POLARIZER) ACTIVITIES OF DAILY LIVING (OT/MOTOR POLARIZER) THERAPEUTIC EXERCISE (OT/MOTOR POLARIZER) OT/MOTOR POLARIZER MAY EDUCATE ON PAIN MANAGEMENT CLINICALLY INDICATED, INCLUDING NON-PHARMACOLOGICAL PAIN REDUCTION TECHNIQUES AND USE OF CRYOTHERAPY OR HEAT UP TO 20 MIN AT A TIME FOR PAIN MANAGEMENT TO BILATERAL HANDS. OT/MOTOR POLARIZER TO INSTRUCT PATIENT/CAREGIVER ON RISK FOR HOSPITALIZATION/EMERGENCY [...] WEEKS. OT LTG: PATIENT WILL DEMONSTRATE IMPROVED CATTLE DEHORNER STRENGTH EVIDENCED BY AN IMPROVEMENT FROM 3+/5 [...] End Date/Time Encounter Type Admission Type Attending [facility] Care Department Encounter ID Discharge Date Discharge Status Discharge Condition Discharge Reason Percent Goals Met 2024-12-05 00:00:00 2025-01-18 00:00:00 Outpatient SEGUN PICHARDO [facility] [id number] 2025-01-18 00:00:00 DISCHARGE TO HOME OR SELF CARE INDEPENDEN T WITH USE OF ASSISTIVE DEVICE HH - OTHER (PROVIDE DETAILS IN COORD NOTE) 90.00
--- OUTSIDE RECORDS SUMMARY | 2025-02-05 15:39 | XMS_ITS | Encounter Summary ---
Author Organization [employer] ([place], [place], [place], [place]) Address [address] [place] [address] Care Team Providers Care Pyrotechnic Mixer Name Role Phone Unavailable Primary Care Provider Unavailabl e Encounter Details Date Type Department Care Team (Late st Contact Info) Description 03/22/2019 Transcribed Document [facility] Family Medicine [facility] [place] [address] ProviderJace MD [address] [place] [address] Social History Tobacco Use Types Packs/Day [...] at present; 324 asa and one Ntg CLAY PROCESSING FACTORY WORKER Cornelia Baird RN - 03/22/2019 11:36 EDT DCP GENERIC CODE Tracking Acuity : 2 - Emergent Tracking Group : [facility] ED Cornelia Baird RN - 03/22/2019 11:36 EDT Mode of Arrival : Stretcher Transported to ED by : Ambulance/ALS EMS Service : [facility] To Room Via : Stretcher Accompanied By : weld technician ED Vital Signs : Document Height & Weight : Document ED Allergies : Document ED Reason for Visit : Document Tetanus Immunization : Unknown Tried to Harm Yourself in the Past? : No Thoughts of Harming/Killing Yourself : No Recent Thoughts of Harming/Killing Others : No Material Requirements Worker Needed : No Cornelia Baird RN - [...] Estimated Onset Date: Unspecified ; Created By: ContributorAptiblesystem HIST_Prosonix; Reaction Status: Active ; Category: Drug ; Substance: No Known Allergies ; Type: Allergy ; Updated By: Contributor_system HIST_TipbitTK; Reviewed Date: 03/22/2019 11:38 EDT Diagnosis Control ED (As Of: 03/22/2019 11:43:15 EDT) Problems(Active) A-fib (SNOMED CT :65219821 ) Name of Problem: A-fib ; Recorder: Isaac Dacosta Rn; Confirmation: Confirmed ; Classification: Patient Stated ; Code: 85652913 ; Contributor System: VR1 ; Last Updated: 12/23/2014 17:58 EDT ; Life Cycle Date: 12/23/2014 ; Life Cycle Status: Active ; Vocabulary: SNOMED CT Arthritis (SNOMED CT :7417128 ) Name of Problem: Arthritis ; Recorder: Isaac Dacosta Rn; Confirmation: Confirmed ; Classification: Patient Stated ; Code: 0947048 ; Contributor System: VR1 ; Last Updated: 12/23/2014 18:35 EDT ; Life Cycle Date: 12/23/2014 ; Life Cycle Status: Active ; Vocabulary: SNOMED CT Back pain, chronic (SNOMED CT :362913749 ) Name of Problem: Back pain, chronic ; Recorder: ARMANDO CASTRO RN; Confirmation: Confirmed ; Classification: Patient Stated ; Code: 431124106 ; Contributor System: PowerChart ; Last Updated: 06/17/2017 10:09 EST ; Life Cycle Date: 06/17/2017 ; Life Cycle Status: Active ; Vocabulary: SNOMED CT CAD (coronary artery disease) (SNOMED CT :55455095 ) Name of Problem: CAD (coronary artery disease) ; Recorder: Isaac Dacosta Rn; Confirmation: Confirmed ; Classification: Patient Stated ; Code: 11137757 ; Contributor System: PowerChart ; Last Updated: 12/23/2014 17:58 EDT ; Life Cycle Date: 12/23/2014 ; Life Cycle Status: Active ; Vocabulary: SNOMED CT Cardiomyopathy (SNOMED CT :235805412 ) Name of Problem: Cardiomyopathy ; Recorder: ARMANDO CASTRO RN; Confirmation: Confirmed ; Classification: Patient Stated ; Code: 964294536 ; Contributor System: PowerChart ; Last Updated: 06/17/2017 10:07 EST ; Life Cycle Date: 06/17/2017 ; Life Cycle Status: Active ; Vocabulary: SNOMED CT Carotid artery stenosis (SNOMED CT :250660862 ) Name of Problem: Carotid artery stenosis ; Recorder: ARMANDO CASTRO RN; Confirmation: Confirmed ; Classification: Patient Stated ; Code: 631345210 ; Contributor System: PowerChart ; Last Updated: 06/17/2017 10:08 EST ; Life Cycle Date: 06/17/2017 ; Life Cycle Status: Active ; Vocabulary: SNOMED CT Carpal tunnel syndrome (SNOMED CT :99729818 ) Name of Problem: Carpal tunnel syndrome ; Recorder: Isaac Dacosta Rn; Confirmation: Confirmed ; Classification: Patient Stated ; Code: 30282431 ; Contributor System: PowerChart ; Last Updated: 12/23/2014 18:34 EDT ; Life Cycle Date: 12/23/2014 ; Life Cycle Status: Active ; Vocabulary: SNOMED CT Chronic anxiety (SNOMED CT :637135827 ) Name of Problem: Chronic anxiety ; Recorder: ARMANDO CASTRO RN; Confirmation: Confirmed ; Classification: Patient Stated ; Code: 407196095 ; Contributor System: PowerChart ; Last Updated: 06/17/2017 10:11 EST ; Life Cycle Date: 06/17/2017 ; Life Cycle Status: Active ; Vocabulary: SNOMED CT Chronic depression (SNOMED CT :773518887 ) Name of Problem: Chronic depression ; Recorder: ARMANDO CASTRO RN; Confirmation: Confirmed ; Classification: Patient Stated ; Code: 406514864 ; Contributor System: SunModularChart ; Last Updated: 06/17/2017 10:11 EST ; Life Cycle Date: 06/17/2017 ; Life Cycle Status: Active ; Vocabulary: SNOMED CT Cigarette smoker (SNOMED CT :863121912 ) Name of Problem: Cigarette smoker ; Recorder: Isaac Dacosta Rn; Confirmation: Confirmed ; Classification: Patient Stated ; Code: 742968504 ; Contributor System: PowerChart ; Last Updated: 12/23/2014 18:36 EDT ; Life Cycle Date: 12/23/2014 ; Life Cycle Status: Active ; Vocabulary: SNOMED CT Diabetes (SNOMED CT :534428840 ) Name of Problem: Diabetes ; Recorder: Isaac Dacosta Rn; Confirmation: Confirmed ; Classification: Patient Stated ; Code: 786418008 ; Contributor System: PowerChart ; Last Updated: 12/23/2014 17:57 EDT ; Life Cycle Date: 12/23/2014 ; Life Cycle Status: Active ; Vocabulary: SNOMED CT Diabetic peripheral neuropathy (SNOMED CT :3278201595 ) Name of Problem: Diabetic peripheral neuropathy ; Recorder: Isaac Dacosta Rn; Confirmation: Confirmed ; Classification: Patient Stated ; Code: 3910548817 ; Contributor System: PowerChart ; Last Updated: 12/23/2014 18:35 EDT ; Life Cycle Date: 12/23/2014 ; Life Cycle Status: Active ; Vocabulary: SNOMED CT GERD - Gastro-esophageal reflux disease (SNOMED CT :6524464396 ) Name of Problem: GERD - Gastro-esophageal reflux disease ; Recorder: ARMANDO CASTRO RN; Confirmation: Confirmed ; Classification: Patient Stated ; Code: 3058467915 ; Contributor System: PowerChart ; Last Updated: 06/17/2017 10:09 EST ; Life Cycle Date: 06/17/2017 ; Life Cycle Status: Active ; Vocabulary: SNOMED CT HLD (hyperlipidemia) (SNOMED CT :33445369 ) Name of Problem: HLD (hyperlipidemia) ; Recorder: Isaac Dacosta Rn; Confirmation: Confirmed ; Classification: Patient Stated ; Code: 47828028 ; Contributor System: PowerChart ; Last Updated: 12/23/2014 17:58 EDT ; Life Cycle Date: 12/23/2014 ; Life Cycle Status: Active ; Vocabulary: SNOMED CT HTN (hypertension) (SNOMED CT :4389361610 ) Name of Problem: HTN (hypertension) ; Recorder: Isaac Dacosta Rn; Confirmation: Confirmed ; Classification: Patient Stated ; Code: 5325520982 ; Contributor System: PowerChart ; Last Updated: 12/23/2014 17:58 EDT ; Life Cycle Date: 12/23/2014 ; Life Cycle Status: Active ; Vocabulary: SNOMED CT Hypothyroid (SNOMED CT :32119876 ) Name of Problem: Hypothyroid ; Recorder: Isaac Dacosta Rn; Confirmation: Confirmed ; Classification: Patient Stated ; Code: 28183290 ; Contributor System: PowerChart ; Last Updated: 12/23/2014 18:33 EDT ; Life Cycle Date: 12/23/2014 ; Life Cycle Status: Active ; Vocabulary: SNOMED CT NJ (SNOMED CT :251948080 ) Name of Problem: [place] ; Recorder: Isaac Dacosta Rn; Confirmation: Confirmed ; Classification: Patient Stated ; Code: 309942080 ; Contributor System: PowerChart ; Last Updated: 12/23/2014 17:57 EDT ; Life Cycle Date: 12/23/2014 ; Life Cycle Status: Active ; Vocabulary: SNOMED CT Obesity (SNOMED CT :8900703274 ) Name of Problem: Obesity ; Recorder: Isaac Dacosta Rn; Confirmation: Confirmed ; Classification: Patient Stated ; Code: 5243241333 ; Contributor System: PowerChart ; Last Updated: 12/23/2014 18:34 EDT ; Life Cycle Date: 12/23/2014 ; Life Cycle Status: Active ; Vocabulary: SNOMED CT Post-menopause (SNOMED CT :433633299 ) Name of Problem: Post-menopause ; Recorder: Isaac Dacosta Rn; Confirmation: Confirmed ; Classification: Patient Stated ; Code: 879158055 ; Contributor System: PowerChart ; Last Updated: 12/23/2014 18:35 EDT ; Life Cycle Date: 12/23/2014 ; Life Cycle Status: Active ; Vocabulary: SNOMED CT Sleep apnea (SNOMED CT :735648889 ) Name of Problem: Sleep apnea ; Recorder: ARMANDO CASTRO RN; Confirmation: Confirmed ; Classification: Patient Stated ; Code: 436816613 ; Contributor System: VR1 ; Last Updated: 06/17/2017 10:09 EST ; Life Cycle Date: 06/17/2017 ; Life Cycle Status: Active ; Vocabulary: SNOMED CT Syncope (SNOMED CT :839033080 ) Name of Problem: Syncope ; Recorder: ARMANDO CASTRO RN; Confirmation: Confirmed ; Classification: Patient Stated ; Code: 717958419 ; Contributor System: VR1 ; Last Updated: 06/17/2017 10:08 EST ; Life Cycle Date: 06/17/2017 ; Life Cycle Status: Active ; Vocabulary: SNOMED CT Diagnoses(Active) Chest pain Date: 03/22/2019 ; Diagnosis Type: Reason For Visit ; Confirmation: Complaint of ; Clinical Dx: Chest pain ; Classification: Medical ; Clinical Service: Emergency medicine ; Code: PNED ; Probability: 0 ; Diagnosis Code: [id number] ED Height and Weight Height Source : Stated Height Entry Format : [place] Height, Feet : 5 ft(Converted to: 152 cm, 60 Inch) Height, Inches : 2 Inch(Converted to: 0 ft 2 Inch, 5.08 cm) Clinical Height : 157.48 cm Weight Source, ED : Critical estimated dosing weight Weight Entry Format : [place] Weight, Pounds : 183 lb Clinical Dosing Weight : 83.18 kg Body Surface Area (BSA) : 1.84 m2 Body Mass Index : 33.5 kg/m2 (HI) [place] Body Weight (IBW) : 49.73 kg Cornelia Baird RN - 03/22/2019 11:36 EDT Electronically signed by Janie Manriquez Conversion Clay Processing Factory Worker Cerner at 10/06/2022 1:01 PM CDT documented in this encounter Plan of Treatment Not on file documented as of this encounter Visit Diagnoses Not on filedocumented in this encounter
--- OUTSIDE RECORDS SUMMARY | 2025-02-05 15:39 | XMS_ITS | Encounter Summary ---
Author Organization [employer] ([place], [place], [place], [place]) Address [address] [place] [address] Care Team Providers Care Warehouse Logistics Manager Name Role Phone Unavailable Primary Care Provider Unavailabl e Encounter Details Date Type Department Care Team (Late st Contact Info) Description 03/22/2019 Transcribed Document [facility] Family Medicine [facility] [place] [address] ProviderJace MD [facility] [place], [place] [address] Social History Tobacco Use Types Packs/Day Years [...] demonstration, Verbalizes understanding IV Discontinued : Yes Menea Mercado Rn - 03/22/2019 17:01 EDT ED Discharge Discharge To : Home with ambulatory/outpatient follow-up Mode Of Departure : Ambulatory Accompanied By : Unaccompanied Prescriptions Given to Patient : Yes Number of Prescriptions Given : 1 Meena Mercado Rn - 03/22/2019 17:01 EDT Electronically signed by Janie Manriquez Conversion Equal Opportunity Assistant Cerner at 10/06/2022 1:01 PM CDT documented in this encounter Plan of Treatment Not on file documented as of this encounter Visit Diagnoses Not on filedocumented in this encounter
--- OUTSIDE RECORDS SUMMARY | 2025-02-05 15:39 | XMS_ITS | Encounter Summary ---
Author Organization [employer] ([place], [place], [place], [place]) Address [address] [place] [address] Care Team Providers Care Precision Lens Grinder Name Role Phone Unavailable Primary Care Provider Unavailabl e Encounter Details Date Type Department Care Team (Late st Contact Info) Description 03/23/2019 Transcribed Document [facility] Family Medicine [facility] [place] [address] ProviderJace MD [facility] [place] [address] Social History Tobacco Use Types [...]
--- OUTSIDE RECORDS SUMMARY | 2025-02-05 15:39 | XMS_ITS | Encounter Summary ---
Author Organization [employer] ([place], [place], [place], [place]) Address [address] [place] [address] Care Team Providers Care Annual Giving Director Name Role Phone Unavailable Primary Care Provider Unavailabl e Encounter Details Date Type Department Care Team (Late st Contact Info) Description 03/22/2019 Transcribed Document [facility] [place] [address] ProviderJace MD [place] [address] Social History Tobacco Use Types [...] Ventura MD - 03/22/2019 4:38 PM CDT [facility] [place] [address] MICHELINE HERNANDEZ :1960 Visit Time:03/22/2019 [...] Where: [address] [facility] [address] [place] [address] Business (1) Follow Up with Patient Resource [...] Within 2 to 3 days Where: [address] [place] [address] [facility] (1) Allergies No Known Allergies [...] range between ( 0.0 and 7.0 ) [place] #: 0.54 K/uL -- Normal range between ( 0.16 and 1.00 ) Eos #: 0.28 x10(3)/uL -- Normal range between ( 0.00 and 0.80 ) [place] %: 6.3 % -- Normal range between [...] /LPF Urine Bilirubin Dipstick: Negative Urine Specific [place]: 1.009 -- Normal range between ( 1.005 [...] treat less common causes of UTI. ??? Zolc-xcz-unugxsq medicines to treat pain. ??? Drinking enough water to stay hydrated. Follow these instructions at home: ??? Take vouj-fqh-mnbxuwk and prescription medicines only as told by [...] 03/16/2006 Document Revised: 11/29/2017 Document Reviewed: 04/26/2016 [employer] Interactive Patient Education ?? 2019 [employer] Nonspecific Chest Pain Chest pain can [...] you start to feel better. ??? Take aimj-rkh-ywgkzxw and prescription medicines only as told by [...] 03/16/2006 Document Revised: 02/28/2017 Document Reviewed: 02/28/2017 [employer] Interactive Patient Education ?? 2019 [employer]. Emergency Awareness and Preventative Care STROKE is [...] Assistance with quitting is available by contacting 5-208-TVYZ-NOW. This is a free resource providing counseling, [...] was given the opportunity to ask questions. Patient/Senior Software Qa Engineer Name: Patient/Senior Software Qa Engineer Signature: Relationship to Patient: Clinician/Hospital Senior Software Qa Engineer Signature: Please Provide a Telephone Number Where You Can Be Reached: Is it Permissible To Leave a Message? Date: documented in this encounter Plan of Treatment Not on file documented as of this encounter Visit Diagnoses Not on filedocumented in this encounter
--- OUTSIDE RECORDS SUMMARY | 2025-02-05 15:39 | XMS_ITS | Encounter Summary ---
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 History of Present Illness The patient [...] reflux disease HLD (hyperlipidemia) HTN (hypertension) Hypothyroid [place] Obesity Post-menopause Sleep apnea Syncope , per [...] EDT Height Source Stated Height Entry Format [place] Height/Length, TURKISH (ft) 5 ft Height/Length TURKISH 2 Inch CLINICALHEIGHT 157.48 cm [place] Body Weight 49.73 kg Weight Source, ED Critical estimated dosing weight Weight Entry Format [place] Weight Bengali lb 183 lb CLINICALWEIGHT 83.18 kg Body [...] ED Adult Triage: ED Clinical Reconciliation: ED braille and talking books clerk: Lipase Level: Normal Saline Flush: 10 mL, IV Push, See Comment ProBNP: Saline Lock Insert: Troponin I Ultra: Troponin I Ultra: Urinalysis w Culture if Indicated: . Electrocardiogram: Time 03/22/2019 11:39:00, rate 88, normal sinus rhythm, No ST changes, no ectopy, normal LA & QRS intervals, EP Interp. Electrocardiogram: Time 03/22/2019 15:41:00, rate 75, normal sinus rhythm, No ST changes, no ectopy, normal LA & QRS intervals, EP Interp. security monitor: Normal sinus rhythm. Results review: All [...] % 38.9 % Lymph # 3.35 x10(3)/uL [place] % 6.3 % [place] # 0.54 K/uL Eos % 3.2 % Eos # 0.28 x10(3)/uL Baso % 0.6 % Baso # 0.05 x10(3)/uL Slide Review No IG# 0.05 x10(3)/uL IG% 0.60 % 03/22/2019 12:20 EDT Urine Type. U CleanCatch Urine Color Yellow Urine Appearance Clear Urine Specific [place] 1.009 Urine pH Dipstick 6.0 Urine Leukocyte Esterase Moderate Urine Nitrite Negative Urine Protein Dipstick Negative Urine Glucose Dipstick 100 Urine Ketones Dipstick Negative Urine Urobilinogen Dipstick 0.2 EU/dL Urine Bilirubin Dipstick Negative Urine Blood Dipstick Negative Ur WBC 10-20 /HPF Ur Bacteria 3+ Ur Epithelial Cells 10-20 /HPF Ur Hyaline Casts 10-20 /LPF . Radiology results: Radiology Results (Last 48 hours) [id number] -- 03/22/2019 11:35 CR Chest 1 Vw [...] to: Time: 03/22/2019 16:06:00, GIL PHILLIPS PA-C, 3785 Patient feeling well. Reports no chest pain and no abdomen pain. She had the pain she had this morning yesterday also. She had sausage this morning before this pain and vomiting. Abdomen soft/some epigastric tenderness. No guarding. She has not see cardiology in over 3 years. Advised f/u PCP and cardiology.. Prescriptions: Prescription [facility]: Macrobid 100 mg oral capsule (Prescribe): [...] of instructions. Notes: I certify that the MLP/DRAFTER REFRIGERATION performed the services as delegated. . documented in this encounter Plan of Treatment Not on file documented as of this encounter Visit Diagnoses Not on filedocumented in this encounter
--- OUTSIDE RECORDS SUMMARY | 2025-02-05 15:39 | XMS_ITS | Clinical Summary ---
Author Organization [facility] Address [address] [place] [address] Care Team Providers Care Cigar Patcher Name Role Phone Ramos Morales APRN Primary Care Provider [phone] Allergies Active Allergy Reactions Criticality Noted Date [...] by mouth every evening. Active HYDROcodone-ac etaminophen ([place]) 10-325 MG tablet Take 1 tablet (10 [...] nightly 30 g 4 Active nystatin (Mycostatin) 800275 UNIT/GM powder Apply twice a day to [...] by mouth every 6 (six) hours. Under [place] law, monthly prescriptions (30 days) can be [...] (06/26/2024): Added automatically from request for surgery [id number] S/P coronary artery stent placement 06/20/2014 Resolved Problems Problem Noted Date Diagnosed Date Resolved Date Cellulitis of foot 05/29/2024 4 Encounters Date Type Department Care Team Description 11/27/2024 Telephone [place] [facility] [address] [facility] [address] [place] [address] Scotty Truong MD from Last [...] any time in the past 12 m [facility], were you homeless or living in a correction (including now)? Patient unable to answer 08/29/2024 Utilities Answer Date Recorded In the past 12 months has th e [employer], gas, oil, or water company threatened to [...] Cancer Screening 09/03/2007 UKY-Breast Cancer Screening 2012 [id number] Vaccine (3 - Pfizer risk series) 11/03/2020 [...] Ha, RN Medical Devices Implanted Type Area Cisco Administrator Device Identifier Shelf Expiration Date Model / [...] Reactive Non Reactive 09/24/2024 3:46 PM EDT [facility] Comment:Screening for HIV 1 & 2 antibodies, and P24 antigen is NONREACTIVE. No confirmatory testing is required. Blood Venous blood specimen / Unknown Venipuncture / Unknown 09/24/2024 2:51 PM EDT 09/24/2024 3:06 PM EDT us Rohit Patel MD LAB BLOOD ORDERABLES Final Result [facility] [address] [place] [address] * (ABNORMAL) Hemoglobin A1c (08/27/2024 9:15 PM EDT) Hemoglobin A1c 8.5(H) <5.7 % 08/28/2024 12:44 AM EDT [facility] Blood Venous blood specimen / Unknown Venipuncture / Unknown 08/27/2024 9:15 PM EDT 08/27/2024 9:25 PM EDT Narrative [facility] - 08/28/2024 12:44 AM EDT HA1C Interpretive Data: Diagnosis of Diabetes: Diabetic > or = 6.5% Pre-diabetic 5.7 to 6.4% Non-diabetic < or = 5.6% Glycemic Targets for Type I and Type II Diabetics: Non- Adults <7.0% Adults <6.0% Children and Adolescents <7.5% Source: [place] [employer] Association. Standards of medical care in diabetes,2017. Diabetes Care.2017:40 (suppl 1):S1-S135. HbA1c assay performed by an ion-exchange chromatography method that is certified traceable to the DCCT. us Roberto Ceja MD LAB BLOOD ORDERABLES Final R esult Performing Organization Address City/[facility] Co de Phone Number [facility] [address] [place] [address] * Hepatitis C Antibody - ED (05/26/2024 11:59 AM EST) Hepatitis C Antibody Negative Negative 05/26/2024 12:53 PM EST [facility] Blood Venous blood specimen / Unknown Venipuncture / Unknown 05/26/2024 11:59 AM EST 05/26/2024 12:11 PM EST us Justyna Suazo MD LAB BLOOD ORDERABLES Final Res ult Performing Organization Address [facility] de Phone Number [facility] [address] [place] [address] from Last 3 Months or Most Recently Relevant to Health Maintenance Additional Health Concerns Active Problems Noted Date Diagnosed Date Autogenerated Problem 09/11/2024 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 Yes Care Teams Cigar Patcher Relationship Specialty Start Date End Date Ramos Morales APRN [address] [place] [address] PCP - General 06/25/24
--- OUTSIDE RECORDS SUMMARY | 2025-02-05 15:39 | XMS_ITS | Encounter Summary ---
Author Organization [employer] ([place], [place], [place], [place]) Address [address] [place] [address] Care Team Providers Care Auto Camp Attendant Name Role Phone Unavailable Primary Care Provider Unavailabl e Encounter Details Date Type Department Care Team (Late st Contact Info) Description 03/22/2019 Transcribed Document [facility] [place] [facility] [place] [address] ProviderJace MD [address] [place] [address] Social History Tobacco Use Types Packs/Day [...] Communication Barrier : None Primary Language : Frisian Any Spiritual/Cultural Needs or Requests : No [...] (Comment: substernal chest pain radiating to back STIPPLER, 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
--- OUTSIDE RECORDS SUMMARY | 2025-02-05 15:39 | XMS_ITS | Encounter Summary ---
Author Organization [employer] ([place], [place], [place], [place]) Address [address] [place] [address] Care Team Providers Care Welding Machine Operator Helper Gas Name Role Phone Unavailable Primary Care Provider Unavailabl e Encounter Details Date Type Department Care Team (Late st Contact Info) Description 03/22/2019 Transcribed Document [facility] [place] Family Medicine [facility] [place] [address] ProviderJace MD [facility] [place] [address] Social History Tobacco Use Types [...] Historical ProviderMD - 03/22/2019 4:43 PM CDT [facility] [address] Visit Date/Time: 03/22/2019 16:43:59 MICHELINE HUBER The above patient was seen in the hospital today and needs to be excused from work/school until Return to Work/School Date:03/24/2019 Electronically signed by Mit[facility] Conversion Creel Hand Cerner at 10/06/2022 1:03 PM CDT documented in this encounter Plan of Treatment Not on file documented as of this encounter Visit Diagnoses Not on filedocumented in this encounter
--- OUTSIDE RECORDS SUMMARY | 2025-02-05 15:39 | XMS_ITS | Clinical Summary ---
Author Organization [employer] ([place], [place], [place], [place]) Address [address] [place] [address] Care Team Providers Care Terrazzo Worker Name Role Phone Unavailable Primary Care [...]
--- OUTSIDE RECORDS SUMMARY | 2025-02-05 15:39 | XMS_ITS | Encounter Summary ---
Author Organization [employer] ([place], [place], [place], [place]) Address [address] [place] [address] Care Team Providers Care Research Director Name Role Phone Unavailable Primary Care Provider Unavailabl e Encounter Details Date Type Department Care Team (Late st Contact Info) Description 03/22/2019 Transcribed Document [facility] [place] Family Medicine Counts include 234 beds at the [facility] [place] [address] ProviderJace MD Counts include 234 beds at the [facility] [place] [address] Social History Tobacco Use Types [...] 4:33 PM CDT Electronically signed by Mitra [facility] Conversion Appeals Board Referee Cerner at 10/06/2022 1:00 PM CDT documented in this encounter Plan of Treatment Not on file documented as of this encounter Visit Diagnoses Not on filedocumented in this encounter
--- OUTSIDE RECORDS SUMMARY | 2025-02-05 15:39 | XMS_ITS | Clinical Summary ---
Author Organization [facility] Address [address] [place] [address] Care Team Providers Care Law Reporter Name Role Phone Óscar Beckham MD Primary Care Provider [phone] Allergies Active Allergy Reactions Criticality Noted Date Comments Canagliflozin Myalgia Low 10/15/2019 Medications magnesium oxide (MAGOX) 400 (241.3 Mg) MG tablet tablet Take 400 mg by mouth Daily. Active vitamin D (ERGOCALCIFEROL ) 1.25 MG (07099 UT) capsule capsule Take 1 capsule by [...] (10/15/2019): Added automatically from request for surgery [id number] S/P coronary artery stent placement 06/20/2014 Family [...] Industry Job Start Date Job End Date [employer] work Not on file Not on file [...] Discontinued 09/19/2024 Medical Devices Implanted Type Area Rock Singer Device Identifier Shelf Expiration Date Model / [...] 5.60 % 04/16/2021 2:54 PM EDT [facility] Blood Venipuncture / Unknown 04/16/2021 2:08 PM EDT 04/16/2021 2:26 PM EDT Narrative [facility] - 04/16/2021 2:54 PM EDT Hemoglobin A1C Ranges: Increased Risk for Diabetes 5.7% to 6.4% Diabetes >= 6.5% Diabetic Goal < 7.0% us Claudio BE LAB BLOOD ORDERABLES Final Resu lt [facility]
[address] [place] [address], from Last 3 Months or Most Recently Relevant to Health Maintenance Insurance [place] [employer] [employer]V[place] Advance Directives * CPR (Attempt to Resuscitate) (Latest Code Status on File) Date Activated Date Inactivated Comments 10/17/2019 11:30 AM 10/18/2019 1:04 PM Question Answer Comments Code Status (Patient has no pulse and is not breathing): CPR (Attempt to Resuscitate) Medical Interventions (Patie nt has pulse or is breathing): Full Care Teams Law Reporter Relationship Specialty Start Date End Date Óscar Beckham MD [facility] [address] ATTN: [place] [address] PCP - General Emergency Medicine 04/16/21
--- OUTSIDE RECORDS SUMMARY | 2025-02-05 15:39 | XMS_ITS | Encounter Summary ---
Author Organization [employer] ([place], [place], [place], [place]) Address [address] [place] [address] Care Team Providers Care Enterprise Account Manager Name Role Phone Unavailable Primary Care Provider Unavailabl e Encounter Details Date Type Department Care Team (Late st Contact Info) Description 03/25/2019 Transcribed Document [facility] [place] [address] ProviderJace MD [facility] [place], [place] [id number] Social History Tobacco Use Types Packs/Day Years [...]
--- OUTSIDE RECORDS SUMMARY | 2025-02-05 15:40 | XMS_ITS | Encounter Summary ---
Author Organization [facility] Address [address] [place] [address] Care Team Providers Care Software Sales Manager Name Role Phone Carmen Ramos Sterling APRN Primary Care Provider [phone] Encounter Details Date Type Department Care Team (Late st Contact Info) Description 08/01/2024 Orders Only External Location [address] [place] [address] Provider, External Social History Tobacco Use Types [...] any time in the past 12 m [facility], were you homeless or living in a intermediate (including now)? No 05/28/2024 Utilities Answer Date [...] as of this encounter Care Teams Software Sales Manager Relationship Specialty Start Date End Date Ramos Morales APRN [address] [place] [address] PCP - General 06/25/24 documented as of this encounter
--- OUTSIDE RECORDS SUMMARY | 2025-02-05 15:40 | XMS_ITS | Referral Summary ---
Author Organization [employer] ([place], [place], [place], [place]) Address [address] [place] [address] Care Team Providers Care Lap Runner Name Role Phone Unavailable Primary Care Provider [...]
--- OUTSIDE RECORDS SUMMARY | 2025-02-05 15:40 | XMS_ITS | Encounter Summary ---
Author Organization [facility] Address [address] [place] [address] Care Team Providers Care Cold Roll Operator Name Role Phone Ramos Morales APRN Primary Care Provider [phone] Reason for Visit * Auth/Cert (Routine) Specialty Diagnoses / Procedures Referred By Contac t Referred To Contact Diagnoses Pyogenic arthritis of right knee joint, due to unspecified organism (CMS/HCC) Septic Knee Joint Conner Major MD [address] [place] [address] Phone: tel: fax: [facility] Inpatient [address] [place] [address] Referral ID Status Reason Start Date Expiration Date Visits Re quested Visits Authorized [id number] 1 1 Encounter Details Date Type Department Care Team (Late st Contact Info) Description 08/27/2024 Lab Requisition [facility] [address] [place] [address] Sina Villalobos, HAILE [address] [facility] [address] [place] [address] Encounter for general adult medical examination without [...] time in the past 12 m [facility], were you homeless or living in a [facility] (including now)? Patient unable to answer 08/29/2024 Utilities Answer Date Recorded In the past 12 months has th e [employer], gas, oil, or water [employer] threatened to shut off services in your [...] LAB HEMATOLOGY METHOD 08/28/2024 12:50 PM EDT [facility] Specimen Source, Body Fluid LAB HEMATOLOGY METHOD 08/28/2024 12:50 PM EDT [facility] Clinical Diagnosis, Body Fluid Septic arthritis LAB HEMATOLOGY METHOD 08/28/2024 12:50 PM EDT [facility] Interpretation , Body Fluid Degenerated acute inflammatory cells, please correlate with microbiology studies. A resident was involved in the service. I attest I examined the relevant preparations for the specimens and confirmed the diagnosis or interpretation. 08/28/2024 12:50 PM EDT [facility] Pathologist Signature, Body Fluid 08/28/2024 12:50 PM EDT [facility] Comment:Reviewed by: Larisa joyce MD LAB CP ASR DISCLAIMER Yes 08/28/2024 12:50 PM EDT [facility] Joint Fluid 08/27/2024 1:05 PM EDT 08/27/2024 3:14 PM EDT us Sina BE LAB BODY FLUIDS AND STOOLS ORDERABLES Final Result Performing Organization Address City/[facility]/ZIP Co de Phone Number [facility] [address] [place] [address] * Synovial fluid, crystal (08/27/2024 1:05 PM EDT) Crystals, Joint Fluid No Crystals Seen No Crystals Present 08/27/2024 7:36 PM EDT [facility] Joint Fluid 08/27/2024 1:05 PM EDT 08/27/2024 3:14 PM EDT us Sina BE LAB BODY FLUIDS AND STOOLS ORDERABLES Final Result Performing Organization Address [facility] Phone Number [facility] [address] [place] [address] * (ABNORMAL) Body Fluid Cell Count w/ Diff (08/27/2024 1:05 PM EDT) Color, Body fluid Yellow LAB HEMATOLOGY METHOD 08/27/2024 7:45 PM EDT [facility] Appearance, Body fluid Cloudy(A) LAB HEMATOLOGY METHOD 08/27/2024 7:45 PM EDT [facility] Volume, Body fluid 1.0 cc LAB HEMATOLOGY METHOD 08/27/2024 7:45 PM EDT [facility] Fluid Container Specimen received in EDTA tube LAB HEMATOLOGY METHOD 08/27/2024 7:45 PM EDT [facility] Red Blood Cell Count, Body fluid 30,000 uL LAB HEMATOLOGY METHOD 08/27/2024 7:45 PM EDT [facility] Total Nucleated Cell Count, Body fluid >100,000 uL LAB HEMATOLOGY METHOD 08/27/2024 7:45 PM EDT [facility] Neutrophils %, Body fluid 95 % LAB HEMATOLOGY METHOD 08/27/2024 7:45 PM EDT [facility] Lymphocytes %, Body fluid 1 % LAB HEMATOLOGY METHOD 08/27/2024 7:45 PM EDT [facility] Monocytes/Macr ophages %, Body fluid 4 % LAB HEMATOLOGY METHOD 08/27/2024 7:45 PM EDT [facility] Eosinophils %, Body fluid 0 % LAB HEMATOLOGY METHOD 08/27/2024 7:45 PM EDT [facility] Lining/Mesothe lial Cells %, Body fluid 0 % LAB HEMATOLOGY METHOD 08/27/2024 7:45 PM EDT [facility] Neutrophils Absolute (PMN), Body fluid >9,500 uL LAB HEMATOLOGY METHOD 08/27/2024 7:45 PM EDT [facility] Lymphocytes Absolute, Body fluid >100 uL LAB HEMATOLOGY METHOD 08/27/2024 7:45 PM EDT [facility] Monocytes/Macr ophages Absolute, Body fluid >400 uL LAB HEMATOLOGY METHOD 08/27/2024 7:45 PM EDT [facility] Eosinophils Absolute, Body fluid 0 uL LAB HEMATOLOGY METHOD 08/27/2024 7:45 PM EDT [facility] Basophils Absolute, Body fluid 0 uL LAB HEMATOLOGY METHOD 08/27/2024 7:45 PM EDT [facility] Lining/Mesothe lial Cells Absolute, Body fluid 0 uL LAB HEMATOLOGY METHOD 08/27/2024 7:45 PM EDT [facility] Comment, Body fluid Differential and/or cell count may be inaccurate due to cellular degeneration. LAB HEMATOLOGY METHOD 08/27/2024 7:45 PM EDT [facility] Basophils %, Body fluid 0 % LAB HEMATOLOGY METHOD 08/27/2024 7:45 PM EDT [facility] Joint Fluid 08/27/2024 1:05 PM EDT 08/27/2024 3:14 PM EDT us Sina BE LAB BODY FLUIDS AN D STOOLS ORDERABLES NO SPECIMEN TYPE/SOURCE Final Result [facility] [address] [place] [address] documented in this encounter Visit Diagnoses Diagnosis Encounter for general adult medical examination without abnormal findings documented in this encounter Additional Health Concerns Infection Onset Date Last Indicated Resolved Time MRSA 08/27/2024 08/28/2024 Assessment Noted Time A Body Mass Index follow-up plan has been documented for the patient 09/26/2024 11:03 AM EDT documented as of this encounter Care Teams Cold Roll Operator Relationship Specialty Start Date End Date Ramos Morales APRN [address] [place] [address] PCP - General 06/25/24 documented as of this encounter
--- OUTSIDE RECORDS SUMMARY | 2025-02-05 15:40 | XMS_ITS | Encounter Summary ---
Author Organization [facility] Address [address] [place] [address] Care Team Providers Care Member Certification Manager Name Role Phone Ramos Morales APRN Primary Care Provider [phone] Reason for Visit * Auth/Cert (Routine) Specialty Diagnoses / Procedures Referred By Contac t Referred To Contact Diagnoses Pyogenic arthritis of right knee joint, due to unspecified organism (CMS/HCC) Septic Knee Joint Conner Major MD [address] [place] [address] Phone: tel: fax: [facility] Inpatient [address] [place] [address] Referral ID Status Reason Start Date Expiration Date Visits Re quested Visits Authorized [id number] 1 1 Encounter Details Date Type Department Care Team (Late st Contact Info) Description 08/27/2024 Lab Requisition [facility] [address] [place] [address] Sina Villalobos, HAILE [address] [facility] [address] [place] [address] Encounter for general adult medical examination without [...] any time in the past 12 m [facility], were you homeless or living in a penitentiary (including now)? Patient unable to answer 08/29/2024 Utilities Answer Date Recorded In the past 12 months has th e [employer], gas, oil, or water [employer] threatened to shut off services in your [...] Culture Light Growth 08/29/2024 12:22 PM EDT [facility] Culture Methicillin-Resista nt Staphylococcus aureus(AA) YAMIL 08/29/2024 12:22 PM EDT [facility] Comment: The organism value for this result has been updated. These results have been appended to the previously preliminary verified report. Edited result: Previously reported as Staphylococcus aureus on 08/29/2024 at 0730 EDT. Staphylococcus aureus has been updated to reportable. Gram Stain Result Numerous Polymorphonuclear leukocytes(A) 08/29/2024 12:22 PM EDT [facility] Gram Stain Result Rare Gram positive cocci in pairs(A) 08/29/2024 12:22 PM EDT [facility] Joint Fluid Synovial fluid specimen [...] LAB MICROBIOLOGY - GENERAL ORDERABLES Final Result [facility] [address] [place] [address] documented in this encounter Visit Diagnoses Diagnosis Encounter for general adult medical examination without abnormal findings documented in this encounter Additional Health Concerns Infection Onset Date Last Indicated Resolved Time MRSA 08/27/2024 08/28/2024 Assessment Noted Time A Body Mass Index follow-up plan has been documented for the patient 09/26/2024 11:03 AM EDT documented as of this encounter Care Teams Member Certification Manager Relationship Specialty Start Date End Date Ramos Morales APRN [address] [place] [address] PCP - General 06/25/24 documented as of this encounter
[2025-02-05 16:19] LABS: Hematocrit 31.8 % (37.0-47.0); Hemoglobin 10.2 g/dL (12.2-16.2); Immature Granulocytes % 0.6 %; Mean Corpuscular HGB Conc 32.1 g/dL (31.8-35.4); Mean Corpuscular Hemoglobin 29.5 pg (27.0-31.2); Mean Corpuscular Volume 91.9 fl (81-99); Nucleated Red Blood Cells % 0 %; Platelet Count 252 K/mm3 (142-424); Red Blood Count 3.46 M/mm3 (4.20-5.40); Red Cell Distribution Width-SD 47.8 fL; White Blood Count 8.8 K/mm3 (4.8-10.8)
[2025-02-05 17:11] LABS: Alanine Aminotransferase 19 U/L (12-78); Albumin Level 4.4 g/dl (3.5-5.0); Albumin/Globulin Ratio 1.5 (1.1-1.8); Alkaline Phosphatase 113 U/L (38-126); Anion Gap 19.8 mEq/L (5-15); Aspartate Amino Transferase 28 U/L (14-36); Bilirubin,Total 0.3 mg/dl (0.2-1.3); Blood Urea Nitrogen 30 mg/dl (7-17); Calcium 9.5 mg/dl (8.4-10.2); Carbon Dioxide 20 mmol/L (22.0-30.0); Chloride 108 mmol/L (98-107); Creatinine,Serum 1.30 mg/dl (0.52-1.04); Estimated Glomerular Filt Rate 42 ml/min (>60); GFR (African American) 50 ML/MIN (>60); Globulin 3.0 g/dL (1.3-3.2); Glucose 168 mg/dl (74-100); Potassium 4.8 mmoL/L (3.5-5.1); Sodium 143 mmol/L (136-145); Total Protein,Serum 7.4 g/dl (6.3-8.2); Uric Acid 7.1 mg/dl (2.5-6.2)
[2025-02-05 17:17] LABS: C-Reactive Protein 4.2 mg/L (0-4)
== END 2025-02-05 23:59 | disposition home or self-care (01) ==
LOC: LAB 15:37
PROVIDERS: Podiatrist; Visit Provider Orthopaedic Surgery
DX: E11.610 Type 2 diabetes mellitus with diabetic neuropathic arthropathy (principal); E11.621 Type 2 diabetes mellitus with foot ulcer; L97.529 Non-pressure chronic ulcer of other part of left foot with unspecified severity; M86.9 Osteomyelitis, unspecified; Z89.422 Acquired absence of other left toe(s)
CPT/HCPCS: 36415; 80053; 84550; 85025; 85651; 86140

== ENCOUNTER 2025-02-12 14:41 | Inpatient (IN) | payer MEDICARE, MEDICAID, SELFPAY ==
[2025-02-12] VITALS (17 sets, daily range): BP systolic 127–189; BP diastolic 61–99; PULSE 71–82; RESP 16–18; TEMP 36.1–37.1; O2SAT 98–100; BMI 25.7; BMI 26.5
[2025-02-12] MEDS: LACTATED RINGERS 1000ML 1,000 ML 100 ML IV (09:19)
--- NOTE | 2025-02-12 10:01 | P.PNANES_ITS ---
[facility] Disclaimer: The information contained in this section may have been updated after the patient was seen, as this information can be updated by other users. Medical History Osteomyelitis Tobacco dependence syndrome Hypertension Peripheral arterial disease CAD (coronary atherosclerotic disease) T2DM (type 2 diabetes mellitus) Decreased pedal pulses Ulcer of second toe of right foot Pulmonary edema Abnormal ankle brachial index (ELLIE) Acute on chronic systolic heart failure Closed left ankle fracture Elevated left ventricular end-diastolic pressure (LVEDP) Edema of both lower extremities Syncope Abnormal result of cardiovascular function study Typical angina Arthritis GERD (gastroesophageal reflux disease) Depression COPD (chronic obstructive pulmonary disease) Arrhythmia Hyperlipidemia Surgical History History of cancer surgery H/O total hysterectomy Hx of colonoscopy Family History Other Cancer Coronary artery disease Diabetes Heart attack Hypertension Stroke Social History Smoking Status: Current every day smoker tobacco type: cigarettes alcohol intake: never substance use type: denies use current occupational status: unemployed and disabled Travel in the last 8 weeks?: None household members: spouse housing: house Have you lived/traveled outside US in past 30 days?: No Contact w/someone who lives/traveled outside US past 30 days?: No Exposure to someone with infectious disease in past 14 days?: No Do you have a fever (greater than 100.4 F or 38 C)?: No Have you tested positive for COVID-19?: No Exposed to someone with COVID-19 in past 14 days?: No Do you have a sore throat?: No Do you have a cough?: No Do you have any weakness?: No Do you have any diarrhea?: No Are you experiencing any unusual bleeding?: No Do you have any muscle aches/pain?: No Do you have any abdominal pain?: No Are you experiencing loss of taste or smell?: No [facility] Anesthesia Checklist Patient Identification Patient Identification: Arm Band and Verbal (Name & ) Structural Data Admitted From: Home Planned Operative Procedure/s: Left below knee amputation Consent for Planned Operative Procedure(s) Verified: Yes Verified Documents: Surgical Consent NPO Status Verified Time NPO: 00:00 Chart Verification Results Verified: CBC and ECG Additional verifications Anesthesia Reactions: No Hx Blood Transfusions: No Blood Transfusion Reaction: No Airway Assessment Mallampati Score:: Class II C-Spine Mobility Assessed: Yes TMJ Mobility Assessed: Yes Dentition: Edentulous Neurological Assessment Level of Consciousness: Awake, Alert and Appropriate Hx Seizures: No Numbness or tingling in extremities: No Anesthesia Plan Anesthesia Risk discussed: Yes Anesthesia Plan: Verified ASA Class: III Anesthesia Type: General w/block
--- NOTE | 2025-02-12 13:40 | P.OP_ITS ---
Date of procedure: 02/12/25 Pre-op Diagnosis:: Recurrent osteomyelitis left foot and lower extremity Post-op Diagnosis:: Same Procedure performed:: Left below the knee amputation Surgeon:: Cricket Redmond DO Grinder Set Up Operator Centerless(s):: Chaim BOGGS Anesthesia: GETA Estimated blood loss (mL): 50 Operative findings:: See dictation Operative note:: Patient identified preoperatively left lower extremity marked with yes my initials. Transferred operative suite. Placed upon operative bed. General anesthesia administered airway secured. Left lower extremity prepped and draped normal sterile fashion. Once prepped and draped final operative timeout performed to identify proper patient procedure and extremity. Everyone involved in the case agreed. There is no counter indications to beginning. Did receive preoperative antibiotics. Right foot open wound was wrapped with Coban and Ioban. Marking pen was used to sean plan incision with a posterior flap below-knee amputation. Extremity was elevated tourniquet inflated to 300 mmHg but not exsanguinated. Skin knife is used to incise the skin in the anterior flap careful dissection is taken down the anterior compartment which was split the neurovascular bundles were identified and clamped stick tie was used followed by hand tied for silk for hemostasis of the neurovascular bundles then muscle was split the line of the amputation dissection was taken down to clear the anterior compartment after the neurovascular structures were tied. Hohmann retractor was placed posterior to the tibia and osteotomy was performed with a saw. Fibula was cut above this level as well. Amputation knife was used then to remove the foot which was passed off to pathology. At that time careful dissection was taken down the posterior compartment the neurovascular structures identified nerves were dissected and withdrawn and cut at the level of the amputation to allow to retract vessels were clamped with hemostat and then stick tied followed by hand ties for hemostasis. Careful dissection of the posterior flap for soft tissue was performed the additional overhang of the Achilles fascia was cut in line with the anterior flap. The tourniquet was deflated to confirm hemostasis and irrigation of the wound was performed. Hemostasis was confirmed once the tourniquet was down irrigation repeated then the posterior flap myodesis was performed sewn to the anterior aspect of the tibia this was completed with Ethibond suture. 0 Vicryl was then used for closure of the fascial layer followed by 2-0 Vicryl and surgical clips in the skin for closure the wound closed well without tension sterile dressing was placed large bulky dressing was placed and a knee immobilizer placed to maintain the knee straight. Patient waken anesthesia taken recovery stable condition. Condition: stable Disposition: PACU Complications:: None apparent
--- NOTE | 2025-02-12 13:42 | EXP.ANES.I ---
[facility] Anesthesia Record Part I Anesthesia Record I Intake, IV Amount: 1,300 Hydration: Adequate Estimated blood loss (mL): 50 Urine output (mL): 0 Blood Products used (#): none Blood Pressure: 169/79 SaO2: 98 Pulse Rate: 71 Airway Patency: Patent Respiratory Rate: 16 Temperature: 98.8 F Patient is:: Drowsy and Stable Stable to PACU at:: 13:40
[2025-02-12] MEDS: HYDROMORPHONE 2MG/ML SYRINGE 0.5 MG IV (14:00)
--- NOTE | 2025-02-12 14:50 | HMH.PHAINT1 ---
Pharmacy Intervention Comments: MEDICATION RECONCILIATION COMPLETED ON PATIENT USING EXTERNAL FILL HISTORY FROM PHARMACY AND LIST FROM CARDIOLOGY OFFICE. -BRIAN DUNBAR, ANAD
--- NOTE | 2025-02-12 15:28 | P.HP_ITS ---
<Statement entered by German Jurado MD - 02/13/25 15:43> Personally evaluated patient and agree with the plan of care as outlined by the [employer]. History of Present Illness *Admission Date: 02/12/25 *Reason for visit:: S/p left BKA *History of present illness: Ms. Hernandez is a 64-year-old female status post left below the knee amputation. She has a primary medical history of hypertension, hyperlipidemia, coronary artery disease, chronic kidney disease, hypothyroidism, GERD, diabetic neuropathy, type 2 diabetes, and HFpEF. She was admitted to the hospital today after a left below the knee amputation with Dr. Redmond. Patient states she is in minimal pain. Patient received general anesthesia with a nerve block. Patient's dressing is clean dry and intact, with Willie bandage and brace applied. [facility] Disclaimer: The information contained in this section may have been updated after the patient was seen, as this information can be updated by other users. Medical History Osteomyelitis Tobacco dependence syndrome Hypertension Peripheral arterial disease CAD (coronary atherosclerotic disease) T2DM (type 2 diabetes mellitus) Decreased pedal pulses Ulcer of second toe of right foot Pulmonary edema Abnormal ankle brachial index (ELLIE) Acute on chronic systolic heart failure Closed left ankle fracture Elevated left ventricular end-diastolic pressure (LVEDP) Edema of both lower extremities Syncope Abnormal result of cardiovascular function study Typical angina Arthritis GERD (gastroesophageal reflux disease) Depression COPD (chronic obstructive pulmonary disease) Arrhythmia Hyperlipidemia Surgical History History of cancer surgery H/O total hysterectomy Hx of colonoscopy Family History Other Cancer Coronary artery disease Diabetes Heart attack Hypertension Stroke Social History Smoking Status: Current every day smoker tobacco type: cigarettes alcohol intake: never substance use type: denies use current occupational status: unemployed and disabled Travel in the last 8 weeks?: None household members: spouse housing: house Have you lived/traveled outside US in past 30 days?: No Contact w/someone who lives/traveled outside US past 30 days?: No Exposure to someone with infectious disease in past 14 days?: No Do you have a fever (greater than 100.4 F or 38 C)?: No Have you tested positive for COVID-19?: No Exposed to someone with COVID-19 in past 14 days?: No Do you have a sore throat?: No Do you have a cough?: No Do you have any weakness?: No Do you have any diarrhea?: No Are you experiencing any unusual bleeding?: No Do you have any muscle aches/pain?: No Do you have any abdominal pain?: No Are you experiencing loss of taste or smell?: No Other Medical History Have you received the Flu Vaccine for this season: Yes Have you received the Pneumonia Vaccine: Yes Review of Systems Constitutional Constitutional: Denies fatigue and Denies weakness *Cardiovascular Cardiovascular: Denies chest pain, Denies dyspnea, Denies edema and Denies lightheadedness *Respiratory Respiratory: Denies cough and Denies dyspnea *Gastrointestinal Gastrointestinal: Denies dyspepsia, Denies nausea and Denies vomiting *Neurologic Neurologic: Denies weakness Endocrine Endocrine: Denies fatigue Meds Home Medications and Allergies Home Medications ?Medication ?Instructions ?Recorded ?Confirmed ?Type sennosides 8.6 mg tablet (Senna 17.2 mg (2 x 8.6 mg) P O DAILY 30 04/24/24 02/12/25 Rx Laxative) days #60 tabs citalopram 20 mg tablet 20 mg PO DAILY #90 tabs 08/1802/12/25 Rx clopidogrel 75 mg tablet 75 mg PO DAILY #30 tabs 09/1902/12/25 Rx lisinopril 40 mg tablet 40 mg PO HS #30 tabs 5 02/12/25 Rx aspirin 81 mg tablet,delayed 81 mg PO DAILY 10/20/24 0 02/12/25 History release (Darshana Low Dose Aspirin) ferrous sulfate 325 mg (65 mg 325 mg PO DAILY 10/20/24 02/12/25 History iron) tablet (Feosol) furosemide 80 mg tablet 80 mg PO DAILY 30 days #90 t abs 12/20/24 02/12/25 Rx Diabetic Shoes (DME) #1 ea 01/09/25 02/12/25 Rx atorvastatin 40 mg tablet 40 mg PO HS #90 tabs 5 02/12/25 Rx allopurinol 100 mg tablet 100 mg PO DAILY 01/20/25 History dapagliflozin propanediol 10 mg 10 mg PO DAILY 5 02/12/25 History tablet (Farxiga) carvedilol 12.5 mg tablet 12.5 mg PO BID 01/21/2501/19 History blood-glucose sensor (Dexcom G7 #1 ea 01/23/25 5 Rx Sensor device) bupropion HCl 150 mg tablet,12 hr 150 mg PO BID #30 ea 01/23/25 02/12/25 Rx sustained-release pantoprazole 40 mg tablet,delayed 40 mg PO HS #90 tabs 01/23/25 02/12/25 Rx release gabapentin 300 mg capsule 300 mg PO TID #90 caps 01/2502/12/25 Rx amlodipine 5 mg tablet 5 mg PO DAILY 02/12/2502/12 History hydrocodone 5 mg-acetaminophen 325 1 tab PO Q8HP PRN S evere Pain 02/12/25 02/12/25 History mg tablet (7-10) levothyroxine 200 mcg tablet 200 mcg PO DAILY 02/12/25 02/12/25 History New Prescriptions to Start Prescriptions: Allergies Allergy/AdvReac Type Severity Reaction Status Date / Time [facility] Allergy Severe kidney Verified 02/12/25 08:54 issues Exam Data for Last 24 hours Vital signs and Labs for Last 24 Hours: Temp Pulse Resp BP Pulse Ox O2 Del Method 98.1 F 76 17 186/78 H 100 Room Air 02/12/25 15:00 02/12/25 15:00 02/12/25 15:00 02/12/25 15:00 02/12/25 15:00 02/12/25 15:00 I & O for Last 24 hours: Intake & Output 02/09/25 02/10/25 02/11/25 02/12/25 23:59 23:59 23:59 23:59 Intake Total 1600 / 1600 Output Total 0 / 0 Balance 1600 / 1600 Weight 65.771 kg Constitutional Constitutional: no acute distress and cooperative *Routine HEENT Exam Head: Present normocephalic Eye: Present EOMI and PERRL ENT: Present mucous membranes moist *Routine Neck Exam Neck: Present supple; Absent lymphadenopathy *Routine Respiratory Exam Respiratory: Present CTA bilaterally, able to speak in complete sentences and symmetric chest movement; Absent wheezes or crackles *Routine Cardiovascular Exam Cardiovascular: Present RRR, Normal S1 and Normal S2; Absent murmur *Routine Abdominal Exam Abdominal: Present soft and normoactive bowel sounds; Absent tenderness or distended *Routine Rectal Exam Rectal:: deferred *Routine Genitalia Exam Genitalia:: deferred *Routine Extremities Exam Extremities: Absent cyanosis, clubbing or edema Comments: Left BKA *Routine Skin Exam Skin: Present dry and warm; Absent rash *Routine Neurological Exam Neurological: Present alert, oriented X3, vision grossly intact, hearing grossly intact and normal speech Assessment and Plan *Assessment and plan (1) Status post below-knee amputation of left lower extremity: Status: Acute Category: Surgical Code(s): Z89.512 - Acquired absence of left leg below knee (2) (HFpEF) heart failure with preserved ejection fraction: Status: Acute Category: Medical Code(s): I50.30 - Unspecified diastolic (congestive) heart failure (3) Diabetes mellitus: Status: Acute Qualifiers: Diabetes mellitus type: type 2 Category: Medical Code(s): E11.9 - Type 2 diabetes mellitus without complications (4) Hypertension: Status: Acute Qualifiers: Hypertension type: unspecified Qualified Code(s): I10 - Essential (primary) hypertension Category: Medical Code(s): I10 - Essential (primary) hypertension (5) Neuropathy: Status: Acute Category: Medical Code(s): G62.9 - Polyneuropathy, unspecified (6) Hyperlipidemia: Status: Acute Qualifiers: Hyperlipidemia type: unspecified Qualified Code(s): E78.5 - Hyperlipidemia, unspecified Category: Medical Code(s): E78.5 - Hyperlipidemia, unspecified Plan Ms. Hernandez is a 64-year-old female status post left below the knee amputation. She has a primary medical history of hypertension, hyperlipidemia, coronary artery disease, chronic kidney disease, hypothyroidism, GERD, diabetic neuropathy, type 2 diabetes, and HFpEF. She was admitted to the hospital today after a left below the knee amputation with Dr. Redmond. Patient states she is in minimal pain. Patient received general anesthesia with a nerve block. Patient's dressing is clean dry and intact, with Willie bandage and brace applied. Orthopedics consulted hospital medicine for management and I excepted the patient, plan of care as follows: #S/p left BKA ? Patient admitted post left BKA. Patient doing well, no complaints of pain at this time. Kenyon 5/325 mg 1-2 tab as needed for pain ordered. MiraLAX and docusate ordered daily. Zofran ordered every 6 hours as needed for nausea. ? PT/OT consulted for assessment in the AM. Plans for patient to go to short- term rehab facility. ? Patient receiving Ancef 2 g x 2 doses per orthopedics. #HFpEF #Hypertension ? Resume lisinopril 40 mg, Lasix 80 mg daily, carvedilol 12.5 mg twice daily, atorvastatin 40 mg at bedtime, amlodipine 5 mg daily, Farxiga 10 mg daily #CAD ? Continue Plavix 75 mg daily, aspirin 81 mg daily #Mood disorder ? Continue Wellbutrin 150 mg twice daily and citalopram 20 mg daily #Diabetes mellitus #Diabetic neuropathy ? ACHS fingersticks, SSI ? Continue gabapentin 300 mg 3 times daily #GERD: Continue pantoprazole 40 mg at bedtime #Hypothyroidism: Continue levothyroxine 200 mcg daily. Continue allopurinol 100 mg daily, continue iron 325 mg daily Full code PT/OT evaluation Diabetic diet SCDs?VTE
--- NOTE | 2025-02-12 15:46 | SW/DCPLANNER ---
Addendum entered by [facility] 02/15/25 15:35: Franchesca stated that auth is still pending.CM will continue to follow up. Addendum entered by [facility] 02/15/25 15:26: Per Franchesca rhodes is still pending at this time. Addendum entered by [facility] 02/15/25 11:54: Per Franchesca jones/ [facility]: patient has been accepted to facilities and auth has been started. [facility] stated that if approved they will have a bed open tomorrow 02/16 for this patient. I have updated patient and cancelled referral w/ Osman Galindo. Addendum entered by [facility] 02/15/25 10:59: I will also fax patient information to [facility] incase [facility] is not able to accept. Patient is medically stable for discharge today. Addendum entered by [facility] 02/15/25 08:38: Per Franchesca Prather will submit auth for skilled level of care today. I will continue to follow up. Addendum entered by [facility] 02/15/25 08:30: Patient's insurance has denied patient acute level of care at [facility]. Franchesca jones/ [facility] is reviewing to see if their skilled unit has an open bed. Patient is agreeable w/ this plan. Patient stated that if [facility] is unable to accept she would prefer [facility]. If [facility] is unable to accept she prefers [facility]. CM will continue to follow up w/ this patient. Addendum entered by [facility] 02/14/25 14:09: Per Franchesca Prather and peer to peer has been requested and will be completed today at 3:45PM. Addendum entered by Naomie Mari 02/13/25 15:02: [facility] has started an acute auth. Kiara Addendum entered by Amanda Thomas RN 02/13/25 11:51: Spoke with patient and her daughter in-law (AGNIESZKA Mayberry) today. Patient is requesting [facility] at discharge, but is open to [facility] as second choice. Clinical faxed to both. Original Note: Spoke with patient once she is medically stable and ready for discharge. Patient stated that she has no preference in what facility she goes to but would like to go to a local one and [facility] is 1st pick. I stated to patient that we will send her information to [facility] and will update once we hear back from them. Kiara Guaman
[2025-02-12] MEDS: HYDROCODONE/APAP 5/325 MG TABLET 2 TAB PO ×2 (15:50→20:19)
[2025-02-12] MEDS: MORPHINE 4MG/ML SYRINGE 4 MG IV ×2 (18:14→22:11)
[2025-02-12 18:31] LABS: POC Glucose,Bedside 386 gm/dL (70-110)
--- NOTE | 2025-02-12 18:54 | PC.NURSE ---
pt is A&Ox4. pt had a left below the knee amputation today. she is having pain that was not relieved with hydrocodone so dr ordered morphine for breakthrough pain. that eased her pain. site is wrapped in esthela bandage but does not have any drainage from it. pts blood sugar was [address] is ordering lantus to start tonight. she does have scuds on her right extremity. pt has no other needs at this time. call light is within reach.
[2025-02-12] MEDS: LACTATED RINGERS 1000ML 1,000 ML 75 ML IV (19:32)
[2025-02-12 20:05] LABS: POC Glucose,Bedside 350 gm/dL (70-110)
[2025-02-12] MEDS: PANTOPRAZOLE 40MG TABLET 40 MG PO (20:15)
[2025-02-12] MEDS: CARVEDILOL 12.5MG TABLET 12.5 MG PO (20:15)
[2025-02-12] MEDS: GABAPENTIN 300MG CAPSULE 300 MG PO (20:15)
[2025-02-12] MEDS: ATORVASTATIN 40MG TABLET 40 MG PO (20:15)
[2025-02-12] MEDS: humaLOG 100 UNITS/ML 10ML VIAL (SSI) SUBCUT (20:16)
--- NOTE | 2025-02-12 20:21 | PC.NURSE ---
patient c/o post op site pain 12/27, dsg c/d/i - tx per mar
--- NOTE | 2025-02-12 21:10 | PC.NURSE ---
SCD's placed on right leg at 1930 by VÍCTOR Jefferson - patient voiced no UOP since surgery, patient drinking coffee, will reassess around 2299/
[2025-02-13] VITALS (7 sets, daily range): BP systolic 127–184; BP diastolic 55–86; PULSE 72–77; RESP 16–17; TEMP 36.4–37.1; O2SAT 94–100; BMI 27.0
[2025-02-13] MEDS: HYDROCODONE/APAP 5/325 MG TABLET 2 TAB PO ×2 (00:42→11:41)
[2025-02-13] MEDS: MORPHINE 4MG/ML SYRINGE 4 MG IV ×2 (04:11→08:45)
[2025-02-13] MEDS: humaLOG 100 UNITS/ML 10ML VIAL (SSI) SUBCUT ×4 (06:40→20:29)
[2025-02-13 06:48] LABS: Hematocrit 27.2 % (37.0-47.0); Hemoglobin 8.8 g/dL (12.2-16.2); Immature Granulocytes % 0.5 %; Mean Corpuscular HGB Conc 32.4 g/dL (31.8-35.4); Mean Corpuscular Hemoglobin 29.6 pg (27.0-31.2); Mean Corpuscular Volume 91.6 fl (81-99); Nucleated Red Blood Cells % 0 %; Platelet Count 217 K/mm3 (142-424); Red Blood Count 2.97 M/mm3 (4.20-5.40); Red Cell Distribution Width-SD 48.5 fL; White Blood Count 7.7 K/mm3 (4.8-10.8)
[2025-02-13 06:49] LABS: Chloride 109 mmol/L (98-107); Sodium 138 mmol/L (136-145)
[2025-02-13 06:50] LABS: Potassium 4.6 mmoL/L (3.5-5.1)
[2025-02-13 06:52] LABS: Blood Urea Nitrogen 26 mg/dl (7-17); Creatinine Clearance Estimated 61 mL/min (50-200); Creatinine,Serum 0.90 mg/dl (0.52-1.04); Estimated Glomerular Filt Rate 63 ml/min (>60); GFR (African American) 77 ML/MIN (>60)
[2025-02-13 06:53] LABS: Anion Gap 11.6 mEq/L (5-15); Calcium 9.0 mg/dl (8.4-10.2); Carbon Dioxide 22 mmol/L (22.0-30.0); Glucose 146 mg/dl (74-100)
[2025-02-13] MEDS: CARVEDILOL 12.5MG TABLET 12.5 MG PO ×2 (08:33→20:29)
[2025-02-13] MEDS: ALLOPURINOL 100MG TABLET 100 MG PO (08:33)
[2025-02-13] MEDS: FERROUS SULFATE 325MG TABLET 325 MG PO (08:33)
[2025-02-13] MEDS: ASPIRIN EC 81MG TABLET 81 MG PO (08:33)
[2025-02-13] MEDS: CLOPIDOGREL 75MG TAB 75 MG PO (08:33)
[2025-02-13] MEDS: LEVOTHYROXINE 100MCG (0.1MG) TAB 200 MCG PO (08:33)
[2025-02-13] MEDS: CITALOPRAM 20MG TABLET 20 MG PO (08:33)
[2025-02-13] MEDS: GABAPENTIN 300MG CAPSULE 300 MG PO ×3 (08:33→20:29)
[2025-02-13] MEDS: DAPAGLIFLOZIN PROPANEDIOL 10 MG TABLET PO (08:33)
[2025-02-13] MEDS: AMLODIPINE 5MG TABLET 5 MG PO (08:33)
[2025-02-13] MEDS: FUROSEMIDE 80 MG TABLET PO (08:33)
[2025-02-13] MEDS: POLYETHYLENE GLYCOL 3350 17 GM PACKET PO (08:34)
[2025-02-13] MEDS: LACTATED RINGERS 1000ML 1,000 ML 75 ML IV ×2 (08:35→22:03)
--- NOTE | 2025-02-13 08:52 | P.PN_ITS ---
Subjective *Date: 02/13/25 *Time: 08:52 Interval history: Patient seen and examined in bed, in good spirits, states pain is well controlled with pain medications, but she is due to pain levels currently 11/27. Denies CHUN today but had one yesterday, dizziness, CP, SOB, n/v, calf pain in non-op leg. + void, no flatus/BM. Ortho Exam (Inpt) Vital signs and Labs for Last 24 Hours: Temp Pulse Resp BP Pulse Ox O2 Del Method 97.8 F 77 17 132/73 100 Room Air 02/13/25 07:50 02/13/25 07:50 02/13/25 07:50 02/13/25 07:50 02/13/25 07:50 02/13/25 07:50 Laboratory Results - last 24 hr 02/12/25 18:19: POC Glucose 386 H* 02/12/25 19:58: POC Glucose 350 H* 02/13/25 05:54: WBC 7.7, RBC 2.97 L, Hgb 8.8 L, Hct 27.2 L, MCV 91.6, MCH 29.6, MCHC 32.4, RDW 14.4, Plt Count 217, MPV 8.7, Neut % (Auto) 56.1, Lymph % (Auto) 30.2, [place] % (Auto) 11.5 H, Eos % (Auto) 1.4, Baso % (Auto) 0.3, Neut # (Auto) 4.3, Lymph # (Auto) 2.3, [place] # (Auto) 0.9, Eos # (Auto) 0.1, Baso # (Auto) 0.0, Sodium 138, Potassium 4.6, Chloride 109 H, Carbon Dioxide 22, Anion Gap 11.6, BUN 26 H, Creatinine 0.90, Estimated Creat Clear 61, Estimated GFR 63, Est GFR ( Amer) 77, Glucose 146 H, Calcium 9.0 I & O for Labs for Last 24 Hours: Intake & Output 02/10/25 02/11/25 02/12/25 02/13/25 23:59 23:59 23:59 23:59 Intake Total 2340 / 2340 1438.75 / 1438.75 Output Total 0 / 100 1000 / 1000 Balance 2340 / 2240 438.75 / 438.75 Weight 65.771 kg 66.633 kg Findings:: LLE: Dressing C/D/I with KI in place. Calf on RLE soft, Non TTP. Assessment and Plan *Assessment and plan (1) Status post below-knee amputation of left lower extremity: Status: Acute Category: Surgical Code(s): Z89.512 - Acquired absence of left leg below knee Plan S/p L BKA POD#1 : NonWeightbearing LLE . Ambulate with devices as needed. DVT ppx: 81mg ASA and Plavix. Ice as needed swelling and pain at incision site. Pain medication as needed. Hgb/Hct: 8.8/27.2, stable. Appreciate medical input on non-orthopedic issues. Discharge planning to [facility] when bed available. F/u 02/28 for post-op wound check in clinic.
[2025-02-13 09:17] LABS: Thyroid Stimulating Hormone 7.52 uIU/mL (0.465-4.68)
[2025-02-13 09:27] LABS: Free T4 (Free Thyroxine) 0.79 ng/dl (0.78-2.19)
--- NOTE | 2025-02-13 09:51 | HMH.OTEV ---
OT Inpatient Evaluation Rehab OT IP Evaluation Start: 02/12/25 14:59 Freq: ONCE Status: Active Protocol: Document 02/13/25 09:36 [facility] (Rec: 02/13/25 09:51 [facility] [id number]) Rehab OT IP Assessment Subjective History Pt oriented x 3 on arrival. Pt agreeable to engage in therapy evaluation. Pt admitted on 02/12/25 due to s/p left BKA. History and physical: Ms. Hernandez is a 64-year-old female status post left below the knee amputation. She has a primary medical history of hypertension, hyperlipidemia, coronary artery disease, chronic kidney disease, hypothyroidism, GERD, diabetic neuropathy, type 2 diabetes, and HFpEF. She was admitted to the hospital today after a left below the knee amputation with Dr. Redmond. Patient states she is in minimal pain. Patient received general anesthesia with a nerve block. Patient's dressing is clean dry and intact, with Willie bandage and brace applied. Subjective Pt reports prior to being in the hospital, she lived in her own home and her 15 year old grandson lived with her. Pt claims normally she is independent with all ADLs and IADLs. Recently she has primarily been using a wheelchair for functional transfers. However prior to this she was able to use a rolling walker. Pt also still drives. Objective Patient Orientation Person,Place,Birthday Right Upper WFL Extremity Gross ROM Left Upper Extremity WFL Gross ROM Bed Mobility bed mobility-scooting,bed mobility - supine/sit Assist Level Contact Guard/Hand Hold Transfer Training Sit/Stand Transfer Assist Level Minimal x 2 (25% assist) Chair Transfer Minimal x 1 (25% assist),Minimal x 2 (25% assist) Ability Chair Transfer Sliding Board Technique Chair Transfer Sliding Board Assistive Devices Rehab OT IP prob,goals,plan Problems Date of Evaluation: 02/13/25 OT IP Problems Bed Mobility,Transfers,Balance,Self care,Safety Rehab Potential Rehab Potential Good Equipment Needs Assistive Devices Rolling / Wheeled Walker,Wheelchair Plan OT intervention Plan Bed Mobility,Transfers,Balance,Self care,Safety, Therapeutic Exercise OT Plan Frequency Daily Duration LOS Discharge Goals Bed Mobility Ability Standby Assistance,Assistance x1 Sit to Stand Chair Contact Guard/Hand Hold Transfer Ability Chair Transfer Contact Guard/Hand Hold,Minimal x 1 (25% assist) Ability Chair Transfer Stand Pivot Technique Chair Transfer Rolling Walker,Sliding Board Assistive Devices Lower Body Dressing Minimal Assistance Ability Upper Body Dressing Contact Guard Ability Performing Toilet Minimal Assistance Hygiene Ability Overall Commode/ Contact Guard,Minimal Assistance Toilet Transfer Ability Commode/Toilet Stand Pivot Transfer Technique Discharge Plan OT Discharge Plan Pt will continue to be seen for OT services while at [facility]. Pt would benefit most from short term rehab following discharge from hospital. Continued skilled therapy is important in order for patient to improve strength, safety, endurance, ADL independence, and functional transfers to reach PLOF. Eval Complexity Eval Charge Codes 74398 - Moderate Complexity PHYSICIAN CERTIFICATION: I certify the specified therapy services for Micheline Hernandez are required, authorized, and reviewed every 30 days.
--- NOTE | 2025-02-13 10:19 | HMH.PTEV ---
Physical Therapy Evaluation Rehab PT IP Evaluation Start: 02/12/25 16:51 Freq: ONCE Status: Active Protocol: Document 02/13/25 09:54 [facility] (Rec: 02/13/25 10:16 [facility] [id number]) Subjective/History History History Pt presents s/p L BKA 02/12/25. Pt is NWB LLE and presents with BKA brace with residual limb esthela wrapping . Subjective Subjective Pt reports prior to her surgery she was IND with household level mobility using a RW. Pt recently has been using a w/c for mobility d/t LLE osteomyelitis. Pt lives with her 15 y/o grandson who attends school during the day. Pt lives in a single-story home. Pt with plan/goal to receive LLE prosthetic when appropriate. New diagnosis of No cancer in past 12 months? [facility] How much help from another person do you currently need... Turning from your A little back to your side while in a flat bed without using bedrails? Moving from lying on A little back to sitting on the side of a flat bed without using bedrails? Moving to and from a A little bed to a chair ( including a wheelchair)? Standing up from a A lot chair using your arms? (e.g., wheelchair, bedside chair) Walking in hospital A lot room? Climbing 3-5 steps Total with a railing? Mobility Score 14 Mobility Level [facility] Mobility 4 Move to chair/commode Mobility Calculator Rehab PT IP Eval Objective Appearance Patient Behavior Appropriate,Cooperative Patient Orientation Person,Place,Situation Difficulty following none instructions Speech Pattern Clear Ambulation Patient Able to No Ambulate Balance Ability to Arise Able, uses arms to help Sitting Balance Steady, safe Standing Balance Unsteady Dynamic Sitting Good Balance Ability Dynamic Standing Poor Balance Ability Transfers Bed Transfer Ability Supervision/Stand by Sit to Stand Bed Moderate x 1 (50% assist) Transfer Ability Rehab PT IP prob,goals,plan Problems Date of Evaluation: 02/13/25 PT IP Problems Bed Mobility,Transfers,Gait,Balance,Self care,Safety Rehab Potential Rehab Potential Good Plan PT Intervention Plan Bed Mobility,Transfers,Gait,Balance,Self care,Safety, Therapeutic Exercise Other Intervention 1-2 times Plan PT Plan Frequency Daily Duration LOS Discharge Goals Bed Transfer Ability Independent Sit to Stand Chair Minimal x 2 (25% assist) Transfer Ability Discharge Plan PT Discharge Plan Pt is a 64 y/o female who presents s/p L BKA 02/12/25. Pt was able to demo bed mobility with supervision. Pt demo'd good static sitting balance. PT educated pt on various transfers from w/c <> EOB. Pt was not able to complete a stand or squat pivot transfer at this time d /t weakness and impaired balance. PT educated pt on slide board transfer w/c <> EOB. Pt required VCs for sequencing, technique, and safety but was able to perform slide board transfer with Min A. PT recommending d/c to an inpatient rehab facility (IRF) where she will receive transfer training, gait training , UE/LE strengthening interventions, w/c mobility training, and proper residual limb wrapping education ( pt is interested in a prosthesis). Pt would benefit from skilled acute care PT while at [facility] to address deficits and further educate on post-operative functional mobility. Eval Complexity Eval Charge Codes 55441 - Moderate Complexity PHYSICIAN CERTIFICATION: I certify the specified therapy services for Micheline Hernandez are required, authorized, and reviewed every 30 days.
--- NOTE | 2025-02-13 11:41 | P.PNANES_ITS ---
[facility] Anesthesia Record Part II Anesthesia Record Part II Discharge Time: 14:20 Destination: Medical Surgical Department PACU nurse assessment reviewed?: Yes Patient Condition:: Good Anesthesia Complications:: None Swallowing reflex intact?: Yes Airway Patency: Patent Cyanosis?: No Blood Pressure: 184/82 SaO2: 99 Respiratory Rate: 16 Pulse Rate: 76 Temperature: 98.8 F Mental Status: Alert & Oriented Pain level:: 5 Nausea and/or vomitting:: None Intake, IV Amount: 0 Hydration: Adequate
[2025-02-13 11:52] LABS: POC Glucose,Bedside 178 gm/dL (70-110)
[2025-02-13] MEDS: OXYCODONE 5MG W/APAP 325MG TABLET 1 EACH PO (13:03)
--- OUTSIDE RECORDS SUMMARY | 2025-02-13 13:08 | XMS_ITS | Clinical Summary ---
Author Organization [facility] Address [address] [place] [address] Care Team Providers Care Dry Boss Name Role Phone Ramos Morales APRN Primary Care Provider [phone] Allergies Active Allergy Reactions Criticality Noted Date [...] by mouth every evening. Active HYDROcodone-ac etaminophen ([place]) 10-325 MG tablet Take 1 tablet (10 [...] nightly 30 g 4 Active nystatin (Mycostatin) 034408 UNIT/GM powder Apply twice a day to [...] (06/26/2024): Added automatically from request for surgery [id number] S/P coronary artery stent placement 06/20/2014 Resolved Problems Problem Noted Date Diagnosed Date Resolved Date Cellulitis of foot 05/29/2024 4 Encounters Date Type Department Care Team Description 11/27/2024 Telephone [place] [facility] [address] [facility] 5th Floor [address] [place] [address] Scotty Truong MD from Last [...] time in the past 12 m [facility], were you homeless or living in a longterm (including now)? Patient unable to answer 08/29/2024 Utilities Answer Date Recorded In the past 12 months has th e [employer], gas, oil, or water company threatened to [...] Cancer Screening 09/03/2007 UKY-Breast Cancer Screening 2012 [id number] Vaccine (3 - Pfizer risk series) 11/03/2020 [...] Ha, RN Medical Devices Implanted Type Area Torsion Spring Coiling Machine Setter Device Identifier Shelf Expiration Date Model / [...] Final Result [facility] [address] [place] [address] * (ABNORMAL) Hemoglobin A1c (08/27/2024 9:15 PM [...] Adults <6.0% Children and Adolescents <7.5% Source: [place] [employer]. Standards of medical care in diabetes,2017. Diabetes Care.2017:40 (suppl 1):S1-S135. HbA1c assay performed by an ion-exchange chromatography method that is certified traceable to the DCCT. us Roberto Ceja MD LAB BLOOD ORDERABLES Final R esult Performing Organization Address City/[facility] Co de Phone Number [facility] [address] [place] [address] * Hepatitis C Antibody - ED (05/26/2024 11:59 AM EST) Hepatitis C Antibody Negative Negative 05/26/2024 12:53 PM EST [facility] Blood Venous blood specimen / Unknown Venipuncture / Unknown 05/26/2024 11:59 AM EST 05/26/2024 12:11 PM EST us Justyna Suazo MD LAB BLOOD ORDERABLES Final Res ult Performing Organization Address [facility] de Phone Number [facility] [address] [place] [address] from Last 3 Months or Most Recently Relevant to Health Maintenance Additional Health Concerns Active Problems Noted Date Diagnosed Date Autogenerated Problem 09/11/2024 Infection Onset Date 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 Yes Care Teams Dry Boss Relationship Specialty Start Date End Date Ramos Morales APRN [address] [place] [address] PCP - General 06/25/24
--- OUTSIDE RECORDS SUMMARY | 2025-02-13 13:09 | XMS_ITS | Encounter Summary ---
Author Organization [employer] ([place], [place], [place], [place]) Address [address] [place] [address] Care Team Providers Care Multimedia Developer Name Role Phone Unavailable Primary Care Provider Unavailabl e Encounter Details Date Type Department Care Team (Late st Contact Info) Description 03/23/2019 Transcribed Document [facility] Family Medicine [facility] [place] [address] ProviderJace [place] [facility] [place] [address] Social History Tobacco Use Types [...]
--- OUTSIDE RECORDS SUMMARY | 2025-02-13 13:09 | XMS_ITS | Clinical Summary ---
Author Organization [employer] ([place], [place], [place], [place]) Address [address] [place] [address] Care Team Providers Care Putter In Name Role Phone Unavailable Primary Care Provider [...]
--- OUTSIDE RECORDS SUMMARY | 2025-02-13 13:09 | XMS_ITS | Encounter Summary ---
Author Organization [employer] ([place], [place], [place], [place]) Address [address] [place] [address] Care Team Providers Care Assistant Editor Name Role Phone Unavailable Primary Care Provider Unavailabl e Encounter Details Date Type Department Care Team (Late st Contact Info) Description 03/25/2019 Transcribed Document [facility] [place] [facility] [place] [address] ProviderJace MD [facility] [place], [place] [address] Social History Tobacco Use Types Packs/Day Years [...]
--- OUTSIDE RECORDS SUMMARY | 2025-02-13 13:10 | XMS_ITS | Referral Summary ---
Author Organization [employer] ([place], [place], [place], [place]) Address [address] [place] [address] Care Team Providers Care Premium Cancellation Clerk Name Role Phone Unavailable Primary Care Provider [...]
--- OUTSIDE RECORDS SUMMARY | 2025-02-13 13:10 | XMS_ITS | Encounter Summary ---
Author Organization [employer] ([place], [place], [place], [place]) Address [address] [place] [address] Care Team Providers Care Civil Preparedness Training Officer Name Role Phone Unavailable Primary Care Provider Unavailabl e Encounter Details Date Type Department Care Team (Late st Contact Info) Description 03/22/2019 Transcribed Document [facility] [place] [facility] [place] [address] ProviderJace MD [facility] [place] [address] Social History Tobacco Use Types [...] 4:33 PM CDT Electronically signed by Mitra [facility] Conversion Slate Picker Cerner at 10/06/2022 1:00 PM CDT documented in this encounter Plan of Treatment Not on file documented as of this encounter Visit Diagnoses Not on filedocumented in this encounter
--- OUTSIDE RECORDS SUMMARY | 2025-02-13 13:10 | XMS_ITS | Encounter Summary ---
Author Organization [employer] ([place], [place], [place], [place]) Address [address] [place] [address] Care Team Providers Care Cloth Hand Name Role Phone Unavailable Primary Care Provider Unavailabl e Encounter Details Date Type Department Care Team (Late st Contact Info) Description 03/22/2019 Transcribed Document [facility] [place] [facility] [place] [address] ProviderJace MD [facility] [place] [address] Social History Tobacco Use Types [...] Ventura MD - 03/22/2019 4:38 PM CDT [facility] [place] [address] MICHELINE HERNANDEZ :1960 Visit Time:03/22/2019 [...] Within 3 to 5 days Where: [address] [facility] [address] [place] [address] Business (1) Follow Up with Patient Resource [...] 2 to 3 days Where: [address] [place] [address] [facility] (1) Allergies No Known Allergies [...] range between ( 0.0 and 7.0 ) [place] #: 0.54 K/uL -- Normal range between ( 0.16 and 1.00 ) Eos #: 0.28 x10(3)/uL -- Normal range between ( 0.00 and 0.80 ) [place] %: 6.3 % -- Normal range between [...] /LPF Urine Bilirubin Dipstick: Negative Urine Specific [place]: 1.009 -- Normal range between ( 1.005 [...] treat less common causes of UTI. ??? Nams-vke-htsbppx medicines to treat pain. ??? Drinking enough water to stay hydrated. Follow these instructions at home: ??? Take xudi-nvh-czvdasf and prescription medicines only as told by [...] 03/16/2006 Document Revised: 11/29/2017 Document Reviewed: 04/26/2016 [employer] Interactive Patient Education ?? 2019 [employer]. Nonspecific Chest Pain Chest pain can [...] you start to feel better. ??? Take khre-oix-cdeweqi and prescription medicines only as told by [...] 03/16/2006 Document Revised: 02/28/2017 Document Reviewed: 02/28/2017 [employer] Interactive Patient Education ?? 2019 [employer]2020. Emergency Awareness and Preventative Care STROKE is [...] Assistance with quitting is available by contacting 8-076-XHWK-NOW. This is a free resource providing counseling, [...] was given the opportunity to ask questions. Patient/Fabrication And Assembly Supervisor Name: Patient/Fabrication And Assembly Supervisor Signature: Relationship to Patient: Clinician/Hospital Fabrication And Assembly Supervisor Signature: Please Provide a Telephone Number Where You Can Be Reached: Is it Permissible To Leave a Message? Date: documented in this encounter Plan of Treatment Not on file documented as of this encounter Visit Diagnoses Not on filedocumented in this encounter
--- OUTSIDE RECORDS SUMMARY | 2025-02-13 13:10 | XMS_ITS | Encounter Summary ---
Author Organization [employer] ([place], [place], [place], [place]) Address [address] [place] [address] Care Team Providers Care Rec Therapist Name Role Phone Unavailable Primary Care Provider Unavailabl e Encounter Details Date Type Department Care Team (Late st Contact Info) Description 03/22/2019 Transcribed Document [facility] [place] Counts include 234 beds at the [facility] [address] ProviderJace MD Counts include 234 beds at the [facility] [place], [place] [address] Social History Tobacco Use Types Packs/Day Years [...]
--- OUTSIDE RECORDS SUMMARY | 2025-02-13 13:10 | XMS_ITS | Encounter Summary ---
Author Organization [facility] Address [address] [place] [address] Care Team Providers Care High Energy Forming Equipment Operator Name Role Phone Carmen Ramos Sterling APRN Primary Care Provider [phone] Encounter Details Date Type Department Care Team (Late st Contact Info) Description 08/01/2024 Orders Only External Location [address] [place] [address] Provider, External Social History Tobacco Use Types [...] any time in the past 12 m [facility], were you homeless or living in a alf (including now)? No 05/28/2024 Utilities Answer Date [...] documented as of this encounter Care Teams High Energy Forming Equipment Operator Relationship Specialty Start Date End Date Ramos Morales APRN [address] [place] [address] PCP - General 06/25/24 documented as of this encounter
--- OUTSIDE RECORDS SUMMARY | 2025-02-13 13:10 | XMS_ITS | Encounter Summary ---
Author Organization [facility] Address [address] [place] [address] Care Team Providers Care Supervisor Heavy Equipment Name Role Phone Ramos Morales APRN Primary Care Provider [phone] Reason for Visit * Auth/Cert (Routine) Specialty Diagnoses / Procedures Referred By Contac t Referred To Contact Diagnoses Pyogenic arthritis of right knee joint, due to unspecified organism (CMS/HCC) Septic Knee Joint Conner Major MD [address] [place] [address] Phone: tel: fax: [facility] Inpatient [address] [place] [address] Referral ID Status Reason Start Date Expiration Date Visits Re quested Visits Authorized [id number] 1 1 Encounter Details Date Type Department Care Team (Late st Contact Info) Description 08/27/2024 Lab Requisition [facility] [address] [place] [address] Sina Villalobos, HAILE [address] [facility] [address] [place] [address] Encounter for general adult medical examination without [...] any time in the past 12 m [facility], were you homeless or living in a fpc (including now)? Patient unable to answer 08/29/2024 Utilities Answer Date Recorded In the past 12 months has th e [employer], gas, oil, or water [employer] threatened to shut off services in your [...] LAB HEMATOLOGY METHOD 08/28/2024 12:50 PM EDT [facility] Specimen Source, Body Fluid LAB HEMATOLOGY METHOD 08/28/2024 12:50 PM EDT [facility] Clinical Diagnosis, Body Fluid Septic arthritis LAB HEMATOLOGY METHOD 08/28/2024 12:50 PM EDT [facility] Interpretation , Body Fluid Degenerated acute inflammatory cells, please correlate with microbiology studies. A resident was involved in the service. I attest I examined the relevant preparations for the specimens and confirmed the diagnosis or interpretation. 08/28/2024 12:50 PM EDT [facility] Pathologist Signature, Body Fluid 08/28/2024 12:50 PM EDT [facility] Comment:Reviewed by: Larisa joyce MD LAB CP ASR DISCLAIMER Yes 08/28/2024 12:50 PM EDT [facility] Joint Fluid 08/27/2024 1:05 PM EDT 08/27/2024 3:14 PM EDT us Sina BE LAB BODY FLUIDS AND STOOLS ORDERABLES Final Result Performing Organization Address City/[facility]/ZIP Co de Phone Number [facility] [address] [place] [address] * Synovial fluid, crystal (08/27/2024 1:05 PM EDT) Crystals, Joint Fluid No Crystals Seen No Crystals Present 08/27/2024 7:36 PM EDT [facility] Joint Fluid 08/27/2024 1:05 PM EDT 08/27/2024 3:14 PM EDT us Sina BE LAB BODY FLUIDS AND STOOLS ORDERABLES Final Result Performing Organization Address [facility] Phone Number [facility] [address] [place] [address] * (ABNORMAL) Body Fluid Cell Count w/ Diff (08/27/2024 1:05 PM EDT) Color, Body fluid Yellow LAB HEMATOLOGY METHOD 08/27/2024 7:45 PM EDT [facility] Appearance, Body fluid Cloudy(A) LAB HEMATOLOGY METHOD 08/27/2024 7:45 PM EDT [facility] Volume, Body fluid 1.0 cc LAB HEMATOLOGY METHOD 08/27/2024 7:45 PM EDT [facility] Fluid Container Specimen received in EDTA tube LAB HEMATOLOGY METHOD 08/27/2024 7:45 PM EDT [facility] Red Blood Cell Count, Body fluid 30,000 uL LAB HEMATOLOGY METHOD 08/27/2024 7:45 PM EDT [facility] Total Nucleated Cell Count, Body fluid >100,000 uL LAB HEMATOLOGY METHOD 08/27/2024 7:45 PM EDT [facility] Neutrophils %, Body fluid 95 % LAB HEMATOLOGY METHOD 08/27/2024 7:45 PM EDT [facility] Lymphocytes %, Body fluid 1 % LAB HEMATOLOGY METHOD 08/27/2024 7:45 PM EDT [facility] Monocytes/Macr ophages %, Body fluid 4 % LAB HEMATOLOGY METHOD 08/27/2024 7:45 PM EDT [facility] Eosinophils %, Body fluid 0 % LAB HEMATOLOGY METHOD 08/27/2024 7:45 PM EDT [facility] Lining/Mes[place] lial Cells %, Body fluid 0 % LAB HEMATOLOGY METHOD 08/27/2024 7:45 PM EDT [facility] Neutrophils Absolute (PMN), Body fluid >9,500 uL LAB HEMATOLOGY METHOD 08/27/2024 7:45 PM EDT [facility] Lymphocytes Absolute, Body fluid >100 uL LAB HEMATOLOGY METHOD 08/27/2024 7:45 PM EDT [facility] Monocytes/Macr ophages Absolute, Body fluid >400 uL LAB HEMATOLOGY METHOD 08/27/2024 7:45 PM EDT [facility] Eosinophils Absolute, Body fluid 0 uL LAB HEMATOLOGY METHOD 08/27/2024 7:45 PM EDT [facility] Basophils Absolute, Body fluid 0 uL LAB HEMATOLOGY METHOD 08/27/2024 7:45 PM EDT [facility] Lining/Mesothe lial Cells Absolute, Body fluid 0 uL LAB HEMATOLOGY METHOD 08/27/2024 7:45 PM EDT [facility] Comment, Body fluid Differential and/or cell count may be inaccurate due to cellular degeneration. LAB HEMATOLOGY METHOD 08/27/2024 7:45 PM EDT [facility] Basophils %, Body fluid 0 % LAB HEMATOLOGY METHOD 08/27/2024 7:45 PM EDT [facility] Joint Fluid 08/27/2024 1:05 PM EDT 08/27/2024 3:14 PM EDT us Sina BE LAB BODY FLUIDS AN D STOOLS ORDERABLES NO SPECIMEN TYPE/SOURCE Final Result [facility] [address] [place] [address] documented in this encounter Visit Diagnoses Diagnosis Encounter for general adult medical examination without abnormal findings documented in this encounter Additional Health Concerns Infection Onset Date Last Indicated Resolved Time MRSA 08/27/2024 08/28/2024 Assessment Noted Time A Body Mass Index follow-up plan has been documented for the patient 09/26/2024 11:03 AM EDT documented as of this encounter Care Teams Supervisor Heavy Equipment Relationship Specialty Start Date End Date Ramos Morales APRN [address] [place] [address] PCP - General 06/25/24 documented as of this encounter
--- OUTSIDE RECORDS SUMMARY | 2025-02-13 13:10 | XMS_ITS | Encounter Summary ---
Author Organization [employer] ([place], [place], [place], [place]) Address [address] [place] [address] Care Team Providers Care Admin Dir Name Role Phone Unavailable Primary Care Provider Unavailabl e Encounter Details Date Type Department Care Team (Late st Contact Info) Description 03/22/2019 Transcribed Document [facility] [place] [facility] [place] [address] ProviderJace MD [address] [place] [address] Social History Tobacco Use Types Packs/Day [...] at present; 324 asa and one Ntg POOLROOM/POOLHALL MANAGER . History of Present Illness The patient [...] reflux disease HLD (hyperlipidemia) HTN (hypertension) Hypothyroid [place] Obesity Post-menopause Sleep apnea Syncope , per [...] EDT Height Source Stated Height Entry Format [place] Height/Length, CZECH (ft) 5 ft Height/Length CZECH 2 Inch CLINICALHEIGHT 157.48 cm [place] Body Weight 49.73 kg Weight Source, ED Critical estimated dosing weight Weight Entry Format [place] Weight Hebrew lb 183 lb CLINICALWEIGHT 83.18 kg Body [...] ED Adult Triage: ED Clinical Reconciliation: ED human services instructor: Lipase Level: Normal Saline Flush: 10 mL, IV Push, See Comment ProBNP: Saline Lock Insert: Troponin I Ultra: Troponin I Ultra: Urinalysis w Culture if Indicated: . Electrocardiogram: Time 03/22/2019 11:39:00, rate 88, normal sinus rhythm, No ST changes, no ectopy, normal GA & QRS intervals, EP Interp. Electrocardiogram: Time 03/22/2019 15:41:00, rate 75, normal sinus rhythm, No ST changes, no ectopy, normal GA & QRS intervals, EP Interp. youth nutritional monitor: Normal sinus rhythm. Results review: All [...] % 38.9 % Lymph # 3.35 x10(3)/uL [place] % 6.3 % [place] # 0.54 K/uL Eos % 3.2 % Eos # 0.28 x10(3)/uL Baso % 0.6 % Baso # 0.05 x10(3)/uL Slide Review No IG# 0.05 x10(3)/uL IG% 0.60 % 03/22/2019 12:20 EDT Urine Type. U CleanCatch Urine Color Yellow Urine Appearance Clear Urine Specific [place] 1.009 Urine pH Dipstick 6.0 Urine Leukocyte Esterase Moderate Urine Nitrite Negative Urine Protein Dipstick Negative Urine Glucose Dipstick 100 Urine Ketones Dipstick Negative Urine Urobilinogen Dipstick 0.2 EU/dL Urine Bilirubin Dipstick Negative Urine Blood Dipstick Negative Ur WBC 10-20 /HPF Ur Bacteria 3+ Ur Epithelial Cells 10-20 /HPF Ur Hyaline Casts 10-20 /LPF . Radiology results: Radiology Results (Last 48 hours) [id number] -- 03/22/2019 11:35 CR Chest 1 Vw [...] Advised f/u PCP and cardiology.. Prescriptions: Prescription [facility]: Macrobid 100 mg oral capsule (Prescribe): [...] of instructions. Notes: I certify that the MLP/BANQUET SET UP PERSON performed the services as delegated. . documented in this encounter Plan of Treatment Not on file documented as of this encounter Visit Diagnoses Not on filedocumented in this encounter
--- OUTSIDE RECORDS SUMMARY | 2025-02-13 13:10 | XMS_ITS | Encounter Summary ---
Author Organization [facility] Address [address] [place] [address] Care Team Providers Care Medical Practice Administrator Name Role Phone Ramos Morales APRN Primary Care Provider [phone] Reason for Visit * Auth/Cert (Routine) Specialty Diagnoses / Procedures Referred By Contac t Referred To Contact Diagnoses Pyogenic arthritis of right knee joint, due to unspecified organism (CMS/HCC) Septic Knee Joint Conner Major MD [address] [place] [address] Phone: tel: fax: [facility] A Inpatient [address] [place] [address] Referral ID Status Reason Start Date Expiration Date Visits Re quested Visits Authorized [id number] 1 1 Encounter Details Date Type Department Care Team (Late st Contact Info) Description 08/27/2024 Lab Requisition [facility] [address] [place] [address] Sina Villalobos, HAILE [address] [facility] [address] [place] [address] Encounter for general adult medical examination without [...] any time in the past 12 m [facility], were you homeless or living in a intermediate (including now)? Patient unable to answer 08/29/2024 Utilities Answer Date Recorded In the past 12 months has th e [employer], gas, oil, or water [facility] threatened to shut off services in your [...] Culture Light Growth 08/29/2024 12:22 PM EDT [facility] Culture Methicillin-Resista nt Staphylococcus aureus(AA) YAMIL 08/29/2024 12:22 PM EDT [facility] Comment: The organism value for this result has been updated. These results have been appended to the previously preliminary verified report. Edited result: Previously reported as Staphylococcus aureus on 08/29/2024 at 0730 EDT. Staphylococcus aureus has been updated to reportable. Gram Stain Result Numerous Polymorphonuclear leukocytes(A) 08/29/2024 12:22 PM EDT [facility] Gram Stain Result Rare Gram positive cocci in pairs(A) 08/29/2024 12:22 PM EDT [facility] Joint Fluid Synovial fluid [...] LAB MICROBIOLOGY - GENERAL ORDERABLES Final Result [facility] [address] [place] [address] documented in this encounter Visit Diagnoses Diagnosis Encounter for general adult medical examination without abnormal findings documented in this encounter Additional Health Concerns Infection Onset Date Last Indicated Resolved Time MRSA 08/27/2024 08/28/2024 Assessment Noted Time A Body Mass Index follow-up plan has been documented for the patient 09/26/2024 11:03 AM EDT documented as of this encounter Care Teams Medical Practice Administrator Relationship Specialty Start Date End Date Ramos Morales APRN [address] [place] [address] PCP - General 06/25/24 documented as of this encounter
--- OUTSIDE RECORDS SUMMARY | 2025-02-13 13:10 | XMS_ITS | Encounter Summary ---
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 : No Thoughts of Harming/Killing Yourself : No Recent Thoughts of Harming/Killing Others : No Dairy Clerk Needed : No Cornelia Baird RN - [...] Estimated Onset Date: Unspecified ; Created By: [employer]system [employer] Reaction Status: Active ; Category: Drug ; Substance: No Known Allergies ; Type: Allergy ; Updated By: Contributor_system HIST_[employer]; Reviewed Date: 03/22/2019 11:38 EDT Diagnosis Control ED (As Of: 03/22/2019 11:43:15 EDT) Problems(Active) A-fib (SNOMED CT :40774777 ) Name of Problem: A-fib ; Recorder: Isaac Dacosta Rn; Confirmation: Confirmed ; Classification: Patient Stated ; Code: [id number] ; Contributor System: [employer] ; Last Updated: 12/23/2014 17:58 EDT ; Life Cycle Date: 12/23/2014 ; Life Cycle Status: Active ; Vocabulary: SNOMED CT Arthritis (SNOMED CT :8678204 ) Name of Problem: Arthritis ; Recorder: Isaac Dacosta Rn; Confirmation: Confirmed ; Classification: Patient Stated ; Code: 8928817 ; Contributor System: [employer] ; Last Updated: 12/23/2014 18:35 EDT ; Life Cycle Date: 12/23/2014 ; Life Cycle Status: Active ; Vocabulary: SNOMED CT Back pain, chronic (SNOMED CT :295579644 ) Name of Problem: Back pain, chronic ; Recorder: ARMANDO CASTRO RN; Confirmation: Confirmed ; Classification: Patient Stated ; Code: [id number] ; Contributor System: [employer] ; Last Updated: 06/17/2017 10:09 EST ; Life Cycle Date: 06/17/2017 ; Life Cycle Status: Active ; Vocabulary: SNOMED CT CAD (coronary artery disease) (SNOMED CT :65772114 ) Name of Problem: CAD (coronary artery disease) ; Recorder: Isaac Dacosta Rn; Confirmation: Confirmed ; Classification: Patient Stated ; Code: 77963985 ; Contributor System: [employer] ; Last Updated: 12/23/2014 17:58 EDT ; Life Cycle Date: 12/23/2014 ; Life Cycle Status: Active ; Vocabulary: SNOMED CT Cardiomyopathy (SNOMED CT :594240326 ) Name of Problem: Cardiomyopathy ; Recorder: ARMANDO CASTRO RN; Confirmation: Confirmed ; Classification: Patient Stated ; Code: 248743208 ; Contributor System: PowerChart ; Last Updated: 06/17/2017 10:07 EST ; Life Cycle Date: 06/17/2017 ; Life Cycle Status: Active ; Vocabulary: SNOMED CT Carotid artery stenosis (SNOMED CT :922282364 ) Name of Problem: Carotid artery stenosis ; Recorder: ARMANDO CASTRO RN; Confirmation: Confirmed ; Classification: Patient Stated ; Code: 530806199 ; Contributor System: PowerChart ; Last Updated: 06/17/2017 10:08 EST ; Life Cycle Date: 06/17/2017 ; Life Cycle Status: Active ; Vocabulary: SNOMED CT Carpal tunnel syndrome (SNOMED CT :54961505 ) Name of Problem: Carpal tunnel syndrome ; Recorder: Isaac Dacosta Rn; Confirmation: Confirmed ; Classification: Patient Stated ; Code: 10965168 ; Contributor System: Power[employer] ; Last Updated: 12/23/2014 18:34 EDT ; Life Cycle Date: 12/23/2014 ; Life Cycle Status: Active ; Vocabulary: SNOMED CT Chronic anxiety (SNOMED CT :344432697 ) Name of Problem: Chronic anxiety ; Recorder: ARMANDO CASTRO RN; Confirmation: Confirmed ; Classification: Patient Stated ; Code: 224529001 ; Contributor System: PowerChart ; Last Updated: 06/17/2017 10:11 EST ; Life Cycle Date: 06/17/2017 ; Life Cycle Status: Active ; Vocabulary: SNOMED CT Chronic depression (SNOMED CT :338199017 ) Name of Problem: Chronic depression ; Recorder: ARMANDO CASTRO RN; Confirmation: Confirmed ; Classification: Patient Stated ; Code: 200895600 ; Contributor System: [place] [employer] ; Last Updated: 06/17/2017 10:11 EST ; Life Cycle Date: 06/17/2017 ; Life Cycle Status: Active ; Vocabulary: SNOMED CT Cigarette smoker (SNOMED CT :159494185 ) Name of Problem: Cigarette smoker ; Recorder: Isaac Dacosta Rn; Confirmation: Confirmed ; Classification: Patient Stated ; Code: 680083339 ; Contributor System: PowerChart ; Last Updated: 12/23/2014 18:36 EDT ; Life Cycle Date: 12/23/2014 ; Life Cycle Status: Active ; Vocabulary: SNOMED CT Diabetes (SNOMED CT :534810172 ) Name of Problem: Diabetes ; Recorder: Isaac Dacosta Rn; Confirmation: Confirmed ; Classification: Patient Stated ; Code: 513012498 ; Contributor System: PowerChart ; Last Updated: 12/23/2014 17:57 EDT ; Life Cycle Date: 12/23/2014 ; Life Cycle Status: Active ; Vocabulary: SNOMED CT Diabetic peripheral neuropathy (SNOMED CT :2489995761 ) Name of Problem: Diabetic peripheral neuropathy ; Recorder: Isaac Dacosta Rn; Confirmation: Confirmed ; Classification: Patient Stated ; Code: 4111486832 ; Contributor System: PowerChart ; Last Updated: 12/23/2014 18:35 EDT ; Life Cycle Date: 12/23/2014 ; Life Cycle Status: Active ; Vocabulary: SNOMED CT GERD - Gastro-esophageal reflux disease (SNOMED CT :2624344173 ) Name of Problem: GERD - Gastro-esophageal reflux disease ; Recorder: ARMANDO CASTRO RN; Confirmation: Confirmed ; Classification: Patient Stated ; Code: 6175625662 ; Contributor System: PowerChart ; Last Updated: 06/17/2017 10:09 EST ; Life Cycle Date: 06/17/2017 ; Life Cycle Status: Active ; Vocabulary: SNOMED CT HLD (hyperlipidemia) (SNOMED CT :53320083 ) Name of Problem: HLD (hyperlipidemia) ; Recorder: Isaac Dacosta Rn; Confirmation: Confirmed ; Classification: Patient Stated ; Code: 54941350 ; Contributor System: PowerChart ; Last Updated: 12/23/2014 17:58 EDT ; Life Cycle Date: 12/23/2014 ; Life Cycle Status: Active ; Vocabulary: SNOMED CT HTN (hypertension) (SNOMED CT :7920744818 ) Name of Problem: HTN (hypertension) ; Recorder: Isaac Dacosta Rn; Confirmation: Confirmed ; Classification: Patient Stated ; Code: 8192078795 ; Contributor System: PowerChart ; Last Updated: 12/23/2014 17:58 EDT ; Life Cycle Date: 12/23/2014 ; Life Cycle Status: Active ; Vocabulary: SNOMED CT Hypothyroid (SNOMED CT :13640521 ) Name of Problem: Hypothyroid ; Recorder: Isaac Dacosta Rn; Confirmation: Confirmed ; Classification: Patient Stated ; Code: 28672737 ; Contributor System: PowerChart ; Last Updated: 12/23/2014 18:33 EDT ; Life Cycle Date: 12/23/2014 ; Life Cycle Status: Active ; Vocabulary: SNOMED CT HI (SNOMED CT :294104019 ) Name of Problem: HI ; Recorder: Isaac Dacosta Rn; Confirmation: Confirmed ; Classification: Patient Stated ; Code: 320082526 ; Contributor System: PowerChart ; Last Updated: 12/23/2014 17:57 EDT ; Life Cycle Date: 12/23/2014 ; Life Cycle Status: Active ; Vocabulary: SNOMED CT Obesity (SNOMED CT :4552507730 ) Name of Problem: Obesity ; Recorder: Isaac Dacosta Rn; Confirmation: Confirmed ; Classification: Patient Stated ; Code: 8435693403 ; Contributor System: PowerChart ; Last Updated: 12/23/2014 18:34 EDT ; Life Cycle Date: 12/23/2014 ; Life Cycle Status: Active ; Vocabulary: SNOMED CT Post-menopause (SNOMED CT :852878872 ) Name of Problem: Post-menopause ; Recorder: Isaac Dacosta Rn; Confirmation: Confirmed ; Classification: Patient Stated ; Code: 144936663 ; Contributor System: PowerChart ; Last Updated: 12/23/2014 18:35 EDT ; Life Cycle Date: 12/23/2014 ; Life Cycle Status: Active ; Vocabulary: SNOMED CT Sleep apnea (SNOMED CT :233484351 ) Name of Problem: Sleep apnea ; Recorder: ARMANDO CASTRO RN; Confirmation: Confirmed ; Classification: Patient Stated ; Code: 878239874 ; Contributor System: [employer] ; Last Updated: 06/17/2017 10:09 EST ; Life Cycle Date: 06/17/2017 ; Life Cycle Status: Active ; Vocabulary: SNOMED CT Syncope (SNOMED CT :363433193 ) Name of Problem: Syncope ; Recorder: ARMANDO CASTRO RN; Confirmation: Confirmed ; Classification: Patient Stated ; Code: 100266741 ; Contributor System: [employer] ; Last Updated: 06/17/2017 10:08 EST ; Life Cycle Date: 06/17/2017 ; Life Cycle Status: Active ; Vocabulary: SNOMED CT Diagnoses(Active) Chest pain Date: 03/22/2019 ; Diagnosis Type: Reason For Visit ; Confirmation: Complaint of ; Clinical Dx: Chest pain ; Classification: Medical ; Clinical Service: Emergency medicine ; Code: PNED ; Probability: 0 ; Diagnosis Code: [id number] ED Height and Weight Height Source : Stated Height Entry Format : Worth Height, Feet : 5 ft(Converted to: 152 cm, 60 Inch) Height, Inches : 2 Inch(Converted to: 0 ft 2 Inch, 5.08 cm) Clinical Height : 157.48 cm Weight Source, ED : Critical estimated dosing weight Weight Entry Format : Worth Weight, Pounds : 183 lb Clinical Dosing Weight : 83.18 kg Body Surface Area (BSA) : 1.84 m2 Body Mass Index : 33.5 kg/m2 (HI) Wallace Body Weight (IBW) : 49.73 kg Cornelia Baird RN - 03/22/2019 11:36 EDT documented in this encounter Plan of Treatment Not on file documented as of this encounter Visit Diagnoses Not on filedocumented in this encounter
--- OUTSIDE RECORDS SUMMARY | 2025-02-13 13:10 | XMS_ITS | Encounter Summary ---
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 Name Role Phone Unavailable Primary Care Provider Unavailabl e Encounter Details Date Type Department Care Team (Late st Contact Info) Description 03/22/2019 Transcribed Document [facility] [place] [facility] [place] [address] ProviderJace MD [facility] [place] [address] Social History Tobacco Use Types [...] Historical ProviderMD - 03/22/2019 4:43 PM [place] [id number] Visit Date/Time: 03/22/2019 16:43:59 MICHELINE HUBER The above patient was seen in the hospital today and needs to be excused from work/school until Return to Work/School Date:03/24/2019 documented in this encounter Plan of Treatment Not on file documented as of this encounter Visit Diagnoses Not on filedocumented in this encounter
--- OUTSIDE RECORDS SUMMARY | 2025-02-13 13:10 | XMS_ITS | Clinical Summary ---
Author Organization [facility] Address [address] [place] [address] Care Team Providers Care Respiratory Care Program Director Name Role Phone Óscar Beckham MD Primary Care Provider [phone] Allergies Active Allergy Reactions Criticality Noted Date Comments Canagliflozin Myalgia Low 10/15/2019 Medications magnesium oxide (MAGOX) 400 (241.3 Mg) MG tablet tablet Take 400 mg by mouth Daily. Active vitamin D (ERGOCALCIFEROL ) 1.25 MG (10581 UT) capsule capsule Take 1 capsule by [...] (10/15/2019): Added automatically from request for surgery [id number] S/P coronary artery stent placement 06/20/2014 Family [...] Industry Job Start Date Job End Date [employer] work Not on file Not on file [...] Discontinued 09/19/2024 Medical Devices Implanted Type Area Production Generalist Device Identifier Shelf Expiration Date Model / [...] - 5.60 % 04/16/2021 2:54 PM EDT [facility] Blood Venipuncture / Unknown 04/16/2021 2:08 PM EDT 04/16/2021 2:26 PM EDT Narrative [facility] - 04/16/2021 2:54 PM EDT Hemoglobin A1C Ranges: Increased Risk for Diabetes 5.7% to 6.4% Diabetes >= 6.5% Diabetic Goal < 7.0% us Claudio BE LAB BLOOD ORDERABLES Final Resu lt [facility]
[address] [place] [address], from Last 3 Months or Most Recently Relevant to Health Maintenance Insurance [place] Advance Directives * CPR (Attempt to Resuscitate) (Latest Code Status on File) Date Activated Date Inactivated Comments 10/17/2019 11:30 AM 10/18/2019 1:04 PM Question Answer Comments Code Status (Patient has no pulse and is not breathing): CPR (Attempt to Resuscitate) Medical Interventions (Patie nt has pulse or is breathing): Full Care Teams Respiratory Care Program Director Relationship Specialty Start Date End Date Óscar Beckham MD [facility] [address] ATTN: [place] [address] PCP - General Emergency Medicine 04/16/21
--- OUTSIDE RECORDS SUMMARY | 2025-02-13 13:10 | XMS_ITS | Encounter Summary ---
Author Organization [employer] ([place], [place], [place], [place]) Address [address] [place] [address] Care Team Providers Care Yarn Examiner Skeins Name Role Phone Unavailable Primary Care Provider Unavailabl e Encounter Details Date Type Department Care Team (Late st Contact Info) Description 03/22/2019 Transcribed Document [facility] [place] [facility] [place] [address] ProviderJace MD [address] [place] [address] Social History Tobacco Use Types Packs/Day [...] Communication Barrier : None Primary Language : Maori Any Spiritual/Cultural Needs or Requests : No [...] (Comment: 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
[2025-02-13 15:02] LABS: POC Glucose,Bedside 136 gm/dL (70-110)
[2025-02-13] MEDS: OXYCODONE 5MG W/APAP 325MG TABLET 2 EACH PO ×2 (16:37→20:30)
[2025-02-13 16:38] LABS: POC Glucose,Bedside 199 gm/dL (70-110)
--- NOTE | 2025-02-13 18:06 | PC.NURSE ---
VS stable, patient remained on room air. Pain managed with prn pain medications. Bandage clean dry and intact.
[2025-02-13 19:56] LABS: POC Glucose,Bedside 159 gm/dL (70-110)
[2025-02-13] MEDS: LISINOPRIL 20MG TABLET 40 MG PO (20:28)
[2025-02-13] MEDS: ATORVASTATIN 40MG TABLET 40 MG PO (20:29)
[2025-02-13] MEDS: PANTOPRAZOLE 40MG TABLET 40 MG PO (20:29)
--- NOTE | 2025-02-13 21:48 | P.PN_ITS ---
Subjective *Date: 02/13/25 *Time: 21:48 Interval history: Patient complains of left lower extremity stump pain, there is obvious swelling still under dressing. Recent trial of [place] with Percocet, pending placement. Exam Data for Last 24 hours Vital signs and Labs for Last 24 Hours: Temp Pulse Resp BP Pulse Ox O2 Del Method 98.0 F 74 16 146/69 H 94 L Room Air 02/13/25 20:00 02/13/25 20:00 02/13/25 20:00 02/13/25 20:00 02/13/25 20:00 02/13/25 21:00 Laboratory Results - last 24 hr 02/12/25 09:17: POC Glucose 136 H 02/13/25 05:54: WBC 7.7, RBC 2.97 L, Hgb 8.8 L, Hct 27.2 L, MCV 91.6, MCH 29.6, MCHC 32.4, RDW 14.4, Plt Count 217, MPV 8.7, Neut % (Auto) 56.1, Lymph % (Auto) 30.2, [place] % (Auto) 11.5 H, Eos % (Auto) 1.4, Baso % (Auto) 0.3, Neut # (Auto) 4.3, Lymph # (Auto) 2.3, [place] # (Auto) 0.9, Eos # (Auto) 0.1, Baso # (Auto) 0.0, Sodium 138, Potassium 4.6, Chloride 109 H, Carbon Dioxide 22, Anion Gap 11.6, BUN 26 H, Creatinine 0.90, Estimated Creat Clear 61, Estimated GFR 63, Est GFR ( Amer) 77, Glucose 146 H, Calcium 9.0, TSH 7.52 H, Free T4 0.79 02/13/25 11:43: POC Glucose 178 H 02/13/25 16:29: POC Glucose 199 H 02/13/25 19:44: POC Glucose 159 H I & O for Last 24 hours: Intake & Output 02/10/25 02/11/25 02/12/25 02/13/25 23:59 23:59 23:59 23:59 Intake Total 2340 / 2340 1678.75 / 1678.75 Output Total 0 / 100 2550 / 2550 Balance 2340 / 2240 -871.25 / -871.25 Weight 65.771 kg 66.633 kg Constitutional Constitutional: no acute distress *Routine HEENT Exam Head: Present normocephalic Eye: Present EOMI and PERRL ENT: Present mucous membranes moist *Routine Neck Exam Neck: Present supple; Absent lymphadenopathy *Routine Respiratory Exam Respiratory: Present CTA bilaterally *Routine Cardiovascular Exam Cardiovascular: Present RRR *Routine Abdominal Exam Abdominal: Present soft and normoactive bowel sounds; Absent tenderness *Routine Extremities Exam Extremities: Absent cyanosis, clubbing or edema Comments: Left lower extremity BKA stump wrapped obvious seeping. *Routine Skin Exam Skin: Present warm; Absent rash *Routine Neurological Exam Neurological: Present alert and oriented X3 Assessment and Plan *Assessment and plan (1) Status post below-knee amputation of left lower extremity: Status: Acute Category: Surgical Code(s): Z89.512 - Acquired absence of left leg below knee (2) (HFpEF) heart failure with preserved ejection fraction: Status: Acute Category: Medical Code(s): I50.30 - Unspecified diastolic (congestive) heart failure (3) Diabetes mellitus: Status: Acute Qualifiers: Diabetes mellitus type: type 2 Category: Medical Code(s): E11.9 - Type 2 diabetes mellitus without complications (4) Hypertension: Status: Acute Qualifiers: Hypertension type: unspecified Qualified Code(s): I10 - Essential (primary) hypertension Category: Medical Code(s): I10 - Essential (primary) hypertension (5) Neuropathy: Status: Acute Category: Medical Code(s): G62.9 - Polyneuropathy, unspecified (6) Hyperlipidemia: Status: Acute Qualifiers: Hyperlipidemia type: unspecified Qualified Code(s): E78.5 - Hyperlipidemia, unspecified Category: Medical Code(s): E78.5 - Hyperlipidemia, unspecified Plan Ms. Hernandez is a 64-year-old female status post left below the knee amputation. She has a primary medical history of hypertension, hyperlipidemia, coronary artery disease, chronic kidney disease, hypothyroidism, GERD, diabetic neuropathy, type 2 diabetes, and HFpEF. She was admitted to the hospital today after a left below the knee amputation with Dr. Redmond. Patient states she is in minimal pain. Patient received general anesthesia with a nerve block. Patient's dressing is clean dry and intact, with Willie bandage and brace applied. Orthopedics consulted hospital medicine for management and I excepted the patient, plan of care as follows: #S/p left BKA #History of recurrent left foot, lower extremity osteomyelitis ? Patient admitted post left BKA. Patient complaining of left stump pain today. ? Switched from [place] to Percocet 5 mg for better pain control. MiraLAX ordered daily. Zofran ordered every 6 hours as needed for nausea. ? PT/OT recommending SNF, patient prefers [facility]. Discussed with case management, pending approval. ? Continue aspirin 81 mg, Plavix 75 mg for DVT prophylaxis. #HFpEF #Hypertension ? Resume lisinopril 40 mg, Lasix 80 mg daily, carvedilol 12.5 mg twice daily, atorvastatin 40 mg at bedtime, amlodipine 5 mg daily, Farxiga 10 mg daily #CAD ? Continue Plavix 75 mg daily, aspirin 81 mg daily #Mood disorder ? Continue Wellbutrin 150 mg twice daily and citalopram 20 mg daily #Diabetes mellitus #Diabetic neuropathy ? ACHS fingersticks, SSI ? Continue gabapentin 300 mg 3 times daily #GERD: Continue pantoprazole 40 mg at bedtime #Hypothyroidism: ? Continue levothyroxine 200 mcg daily. Continue allopurinol 100 mg daily, continue iron 325 mg daily Full code PT/OT evaluation Diabetic diet DVT prophylaxis: Aspirin, Plavix
[2025-02-13] MEDS: MORPHINE 2MG/ML SYRINGE 2 MG IV (22:38)
[2025-02-14] VITALS: BP 105/59; PULSE 76; RESP 16; TEMP 36.6; O2SAT 97
[2025-02-14] MEDS: OXYCODONE 5MG W/APAP 325MG TABLET 2 EACH PO ×5 (03:23→21:11)
[2025-02-14 04:00] VITALS: BP 163/86; PULSE 76; RESP 14; TEMP 36.8; O2SAT 96; BMI 28.4
[2025-02-14 06:03] LABS: Hematocrit 26.7 % (37.0-47.0); Hemoglobin 8.6 g/dL (12.2-16.2); Immature Granulocytes % 0.4 %; Mean Corpuscular HGB Conc 32.2 g/dL (31.8-35.4); Mean Corpuscular Hemoglobin 29.8 pg (27.0-31.2); Mean Corpuscular Volume 92.4 fl (81-99); Nucleated Red Blood Cells % 0 %; Platelet Count 203 K/mm3 (142-424); Red Blood Count 2.89 M/mm3 (4.20-5.40); Red Cell Distribution Width-SD 48.6 fL; White Blood Count 7.0 K/mm3 (4.8-10.8)
[2025-02-14 06:06] LABS: Chloride 107 mmol/L (98-107)
[2025-02-14 06:07] LABS: Albumin Level 3.4 g/dl (3.5-5.0); Potassium 4.6 mmoL/L (3.5-5.1); Sodium 137 mmol/L (136-145)
[2025-02-14 06:09] LABS: Alanine Aminotransferase 11 U/L (12-78); Anion Gap 9.6 mEq/L (5-15); Aspartate Amino Transferase 37 U/L (14-36); Blood Urea Nitrogen 25 mg/dl (7-17); Carbon Dioxide 25 mmol/L (22.0-30.0); Creatinine Clearance Estimated 65 mL/min (50-200); Creatinine,Serum 1.00 mg/dl (0.52-1.04); Estimated Glomerular Filt Rate 56 ml/min (>60); GFR (African American) 68 ML/MIN (>60)
[2025-02-14 06:10] LABS: Albumin/Globulin Ratio 1.2 (1.1-1.8); Alkaline Phosphatase 91 U/L (38-126); Bilirubin,Total 0.2 mg/dl (0.2-1.3); Calcium 8.8 mg/dl (8.4-10.2); Globulin 2.9 g/dL (1.3-3.2); Glucose 154 mg/dl (74-100); Total Protein,Serum 6.3 g/dl (6.3-8.2)
[2025-02-14 06:32] LABS: POC Glucose,Bedside 155 gm/dL (70-110)
[2025-02-14 08:00] VITALS: BP 138/94; PULSE 77; RESP 16; TEMP 36.7; O2SAT 96
[2025-02-14] MEDS: GABAPENTIN 300MG CAPSULE 300 MG PO ×3 (08:09→21:10)
[2025-02-14] MEDS: AMLODIPINE 5MG TABLET 5 MG PO (08:09)
[2025-02-14] MEDS: CITALOPRAM 20MG TABLET 20 MG PO (08:09)
[2025-02-14] MEDS: FUROSEMIDE 80 MG TABLET PO (08:09)
[2025-02-14] MEDS: FERROUS SULFATE 325MG TABLET 325 MG PO (08:09)
[2025-02-14] MEDS: DAPAGLIFLOZIN PROPANEDIOL 10 MG TABLET PO (08:09)
[2025-02-14] MEDS: CARVEDILOL 12.5MG TABLET 12.5 MG PO ×2 (08:09→21:10)
[2025-02-14] MEDS: CLOPIDOGREL 75MG TAB 75 MG PO (08:09)
[2025-02-14] MEDS: ASPIRIN EC 81MG TABLET 81 MG PO (08:09)
[2025-02-14] MEDS: ALLOPURINOL 100MG TABLET 100 MG PO (08:09)
[2025-02-14] MEDS: LEVOTHYROXINE 100MCG (0.1MG) TAB 200 MCG PO (08:09)
[2025-02-14] MEDS: POLYETHYLENE GLYCOL 3350 17 GM PACKET PO (08:09)
[2025-02-14] MEDS: LACTATED RINGERS 1000ML 1,000 ML 75 ML IV ×2 (10:16→23:39)
[2025-02-14] MEDS: humaLOG 100 UNITS/ML 10ML VIAL (SSI) SUBCUT ×2 (10:20→21:11)
[2025-02-14 12:00] VITALS: BP 138/81; PULSE 81; RESP 16; TEMP 36.9; O2SAT 98
[2025-02-14 12:24] LABS: POC Glucose,Bedside 170 gm/dL (70-110)
[2025-02-14 13:21] VITALS: BMI 28.4
--- NOTE | 2025-02-14 14:38 | EXP.ACUTE.PN ---
Subjective *Date: 02/14/25 *Time: 14:38 Interval history: Patient doing well this morning, up to chair. States she ate breakfast well, does complain of intermittent stomach pain. Much better than yesterday. Continue current plan, awaiting acceptance to [facility] facility. Medical Exam Vital signs and Labs for Last 24 Hours: Vital Signs Temp Pulse Resp BP Pulse Ox O2 Del Method 02/14/25 12:10 Room Air 02/14/25 12:00 98.4 F 81 16 138/81 98 Room Air 02/14/25 11:00 Room Air 02/14/25 08:23 Room Air 02/14/25 08:00 98.1 F 77 16 138/94 H 96 Room Air 02/14/25 08:00 Room Air 02/14/25 04:00 98.3 F 76 14 163/86 H 96 Room Air 02/14/25 00:00 97.8 F 76 16 105/59 L 97 Room Air 02/13/25 21:00 Room Air 02/13/25 20:00 98.0 F 74 16 146/69 H 94 L Room Air 02/13/25 20:00 Room Air 02/13/25 18:50 Room Air 02/13/25 17:00 Room Air 02/13/25 16:00 98.6 F 74 16 127/55 L 98 Room Air 02/13/25 15:00 Room Air Intake and Output 02/13/25 02/14/25 02/14/25 23:59 07:59 15:59 Intake Total 1000 / 8.75 30 / 1286.25 1256.25 / 1286.25 Output Total 750 / 3100 1100 / 2250 1150 / 2250 Balance 250 / -391.25 -1070 / -963.75 106.25 / -963.75 Intake: Intake, Oral Amount 30 / 370 340 / 370 Intake, Total IV Amount 1000 / 2077.75 916.25 / 916.25 Lactated Ringers 1000ML 1,000 999 / 1977.75 916.25 / 916.25 ml @ 75 mls/hr IV .[id number] [facility] Rx#:[id number] Output: Output, Urine Amount 750 / 3100 1100 / 2250 1150 / 2250 Other: Number of Unmeasured Voids 0 1 0 Weight 70.08 kg 70.08 kg Patient Weight 02/14/25 23:59 Weight 70.08 kg Laboratory Results - last 24 hr 02/12/25 09:17: POC Glucose 136 H 02/13/25 06:35: POC Glucose 170 H 02/13/25 16:29: POC Glucose 199 H 02/13/25 19:44: POC Glucose 159 H 02/14/25 05:29: WBC 7.0, RBC 2.89 L, Hgb 8.6 L, Hct 26.7 L, MCV 92.4, MCH 29.8, MCHC 32.2, RDW 14.4, Plt Count 203, MPV 8.8, Neut % (Auto) 57.0, Lymph % (Auto) 27.8, [place] % (Auto) 11.3 H, Eos % (Auto) 3.2, Baso % (Auto) 0.3, Neut # (Auto) 4.0, Lymph # (Auto) 1.9, [place] # (Auto) 0.8, Eos # (Auto) 0.2, Baso # (Auto) 0.0, Sodium 137, Potassium 4.6, Chloride 107, Carbon Dioxide 25, Anion Gap 9.6, BUN 25 H, Creatinine 1.00, Estimated Creat Clear 65, Estimated GFR 56 L, Est GFR ( Amer) 68, Glucose 154 H, Calcium 8.8, Total Bilirubin 0.2, AST 37 H, ALT 11 L, Alkaline Phosphatase 91, Total Protein 6.3, Albumin 3.4 L, Globulin 2.9, Albumin/Globulin Ratio 1.2 02/14/25 06:22: POC Glucose 155 H I & O for Labs for Last 24 Hours: Intake & Output 02/11/25 02/12/25 02/13/25 02/14/25 23:59 23:59 23:59 23:59 Intake Total 2340 / 2340 2678.75 / 2708.75 1286.25 / 1286.25 Output Total 0 / 100 2550 / 3100 2250 / 2250 Balance 2340 / 2240 128.75 / -391.25 -963.75 / -963.75 Weight 65.771 kg 66.633 kg 70.08 kg Constitutional: Present no acute distress, average body habitus, chronically ill appearing and cooperative Head: Present atraumatic and normocephalic ENT: Present normal exam Respiratory: Present normal respiratory effort; Absent rhonchi, wheezes or crackles Cardiac: Present Reg Rate and Rhythm GI: Present soft and normal bowel sounds; Absent distention Rectal (female): Present deferred (female): Present deferred Extremities: Present normal inspection and full ROM; Absent edema Comment:: 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 left foot with Charcot deformity, bandage in place. Skin: Present wounds; Absent erythema Neuro: Present Grossly Intact, alert, awake, oriented x 3 and moves all extremities Assessment and Plan *Assessment and plan (1) Status post below-knee amputation of left lower extremity: Status: Acute Category: Surgical Code(s): Z89.512 - Acquired absence of left leg below knee (2) (HFpEF) heart failure with preserved ejection fraction: Status: Acute Category: Medical Code(s): I50.30 - Unspecified diastolic (congestive) heart failure (3) Diabetes mellitus: Status: Acute Qualifiers: Diabetes mellitus type: type 2 Category: Medical Code(s): E11.9 - Type 2 diabetes mellitus without complications (4) Hypertension: Status: Acute Qualifiers: Hypertension type: unspecified Qualified Code(s): I10 - Essential (primary) hypertension Category: Medical Code(s): I10 - Essential (primary) hypertension (5) Neuropathy: Status: Acute Category: Medical Code(s): G62.9 - Polyneuropathy, unspecified (6) Hyperlipidemia: Status: Acute Qualifiers: Hyperlipidemia type: unspecified Qualified Code(s): E78.5 - Hyperlipidemia, unspecified Category: Medical Code(s): E78.5 - Hyperlipidemia, unspecified Plan Ms. Hernandez is a 64-year-old female status post left below the knee amputation. She has a primary medical history of hypertension, hyperlipidemia, coronary artery disease, chronic kidney disease, hypothyroidism, GERD, diabetic neuropathy, type 2 diabetes, and HFpEF. She was admitted to the hospital after a left below the knee amputation with Dr. Redmond on 02/12/2025. Patient states her pain is well-controlled with the oral pain medication regimen. Patient's dressing is clean dry and intact, with Willie bandage and brace applied. Orthopedics consulted hospital medicine for management and I accepted the patient, plan of care as follows: #S/p left BKA ? Patient admitted post left BKA. Patient doing well, complains of intermittent stump pain. Percocet 5 mg every 4 hours as needed for pain control. ? PT/OT recommending SNF, patient prefers [facility]. Care management working on placement at this time. #HFpEF #Hypertension ? Resume lisinopril 40 mg, Lasix 80 mg daily, carvedilol 12.5 mg twice daily, atorvastatin 40 mg at bedtime, amlodipine 5 mg daily, Farxiga 10 mg daily #CAD ? Continue Plavix 75 mg daily, aspirin 81 mg daily #Mood disorder ? Continue Wellbutrin 150 mg twice daily and citalopram 20 mg daily #Diabetes mellitus #Diabetic neuropathy ? ACHS fingersticks, SSI ? Continue gabapentin 300 mg 3 times daily #GERD: Continue pantoprazole 40 mg at bedtime #Hypothyroidism: Continue levothyroxine 200 mcg daily. Continue allopurinol 100 mg daily, continue iron 325 mg daily Full code PT/OT evaluation Diabetic diet SCDs?VTE
[2025-02-14 16:00] VITALS: BP 133/72; PULSE 70; RESP 16; TEMP 36.9; O2SAT 98
[2025-02-14 16:05] LABS: POC Glucose,Bedside 148 gm/dL (70-110)
--- NOTE | 2025-02-14 17:41 | PC.NURSE ---
Pt. is aox4, up with assistance times 2, fsbg achs, L BKA with esthela and brace, PT and OT following, bed alarm active, purewick in place, 20g L AC LR @ 75, awaiting rehab.
[2025-02-14 20:00] VITALS: BP 132/68; PULSE 72; RESP 18; TEMP 36.7; O2SAT 96
[2025-02-14 20:12] LABS: POC Glucose,Bedside 311 gm/dL (70-110)
[2025-02-14] MEDS: PANTOPRAZOLE 40MG TABLET 40 MG PO (21:10)
[2025-02-14] MEDS: LISINOPRIL 20MG TABLET 40 MG PO (21:10)
[2025-02-14] MEDS: ATORVASTATIN 40MG TABLET 40 MG PO (21:11)
[2025-02-14 22:54] LABS: POC Glucose,Bedside 155 gm/dL (70-110)
[2025-02-15] MEDS: OXYCODONE 5MG W/APAP 325MG TABLET 2 EACH PO ×5 (01:57→21:52)
[2025-02-15 04:00] VITALS: BP 139/77; PULSE 75; RESP 16; TEMP 36.7; O2SAT 95; BMI 28.6
[2025-02-15 06:11] LABS: POC Glucose,Bedside 142 gm/dL (70-110)
[2025-02-15 06:46] LABS: Hematocrit 27.1 % (37.0-47.0); Hemoglobin 8.7 g/dL (12.2-16.2); Immature Granulocytes % 0.8 %; Mean Corpuscular HGB Conc 32.1 g/dL (31.8-35.4); Mean Corpuscular Hemoglobin 29.4 pg (27.0-31.2); Mean Corpuscular Volume 91.6 fl (81-99); Nucleated Red Blood Cells % 0 %; Platelet Count 228 K/mm3 (142-424); Red Blood Count 2.96 M/mm3 (4.20-5.40); Red Cell Distribution Width-SD 47.9 fL; White Blood Count 7.7 K/mm3 (4.8-10.8)
[2025-02-15 06:54] LABS: Chloride 103 mmol/L (98-107)
[2025-02-15 06:55] LABS: Albumin Level 3.5 g/dl (3.5-5.0); Potassium 4.3 mmoL/L (3.5-5.1); Sodium 134 mmol/L (136-145)
[2025-02-15 06:57] LABS: Alanine Aminotransferase 20 U/L (12-78); Anion Gap 9.3 mEq/L (5-15); Aspartate Amino Transferase 49 U/L (14-36); Blood Urea Nitrogen 27 mg/dl (7-17); Carbon Dioxide 26 mmol/L (22.0-30.0); Creatinine Clearance Estimated 59 mL/min (50-200); Creatinine,Serum 1.10 mg/dl (0.52-1.04); Estimated Glomerular Filt Rate 50 ml/min (>60); GFR (African American) 61 ML/MIN (>60)
[2025-02-15 06:58] LABS: Albumin/Globulin Ratio 1.2 (1.1-1.8); Alkaline Phosphatase 110 U/L (38-126); Bilirubin,Total 0.2 mg/dl (0.2-1.3); Calcium 9.3 mg/dl (8.4-10.2); Globulin 3.0 g/dL (1.3-3.2); Glucose 124 mg/dl (74-100); Total Protein,Serum 6.5 g/dl (6.3-8.2)
[2025-02-15 08:00] VITALS: BP 114/47; PULSE 76; RESP 18; TEMP 36.9; O2SAT 96
[2025-02-15] MEDS: GABAPENTIN 300MG CAPSULE 300 MG PO ×3 (09:08→21:00)
[2025-02-15] MEDS: CARVEDILOL 12.5MG TABLET 12.5 MG PO ×2 (09:10→21:00)
[2025-02-15] MEDS: ASPIRIN EC 81MG TABLET 81 MG PO (09:10)
[2025-02-15] MEDS: DAPAGLIFLOZIN PROPANEDIOL 10 MG TABLET PO (09:10)
[2025-02-15] MEDS: ALLOPURINOL 100MG TABLET 100 MG PO (09:10)
[2025-02-15] MEDS: FERROUS SULFATE 325MG TABLET 325 MG PO (09:10)
[2025-02-15] MEDS: CLOPIDOGREL 75MG TAB 75 MG PO (09:10)
[2025-02-15] MEDS: CITALOPRAM 20MG TABLET 20 MG PO (09:10)
[2025-02-15] MEDS: FUROSEMIDE 80 MG TABLET PO (09:10)
[2025-02-15] MEDS: AMLODIPINE 5MG TABLET 5 MG PO (09:10)
[2025-02-15] MEDS: LEVOTHYROXINE 100MCG (0.1MG) TAB 200 MCG PO (09:11)
--- NOTE | 2025-02-15 11:51 | P.DS_ITS ---
<Statement entered by German Jurado MD - 02/16/25 14:24> Patient did not have a bed available at [facility] yesterday, but did have one today. No overnight events. Patient is doing well, pain is improving with Percocet and decrease swelling. Continue left lower extremity stump elevation to reduce swelling. No acute concerns, will be transferred to [facility] in stable condition today. General Admission date:: 02/12/25 Discharge date: 02/15/25 HPI HPI HPI: Ms. Hernandez is a 64-year-old female status post left below the knee amputation. She has a primary medical history of hypertension, hyperlipidemia, coronary artery disease, chronic kidney disease, hypothyroidism, GERD, diabetic neuropathy, type 2 diabetes, and HFpEF. She was admitted to the hospital today after a left below the knee amputation with Dr. Redmond. Patient states she is in minimal pain. Patient received general anesthesia with a nerve block. Patient's dressing is clean dry and intact, with Willie bandage and brace applied. Hospital Course Hospital Course Hospital Course: Ms. Hernandez is a 64-year-old female status post left below the knee amputation. She has a primary medical history of hypertension, hyperlipidemia, coronary artery disease, chronic kidney disease, hypothyroidism, GERD, diabetic neuropathy, type 2 diabetes, and HFpEF. She was admitted to the hospital after a left below the knee amputation with Dr. Redmond on 02/12/2025. Patient states her pain is well-controlled with the oral pain medication regimen. Patient's dressing is clean dry and intact, with Willie bandage and brace applied. Orthopedics consulted hospital medicine for management and I accepted the patient, plan of care as follows: #S/p left BKA ? Patient admitted post left BKA. Patient doing well, complains of intermittent stump pain. Percocet 5 mg every 4 hours as needed for pain control. Holding [place] until Percocet course complete. ? PT/OT recommending SNF, patient prefers [facility]. Care management working on placement at this time. #HFpEF #Hypertension ? Resume lisinopril 40 mg, Lasix 80 mg daily, carvedilol 12.5 mg twice daily, atorvastatin 40 mg at bedtime, amlodipine 5 mg daily, Farxiga 10 mg daily #CAD ? Continue Plavix 75 mg daily, aspirin 81 mg daily #Mood disorder ? Continue Wellbutrin 150 mg twice daily and citalopram 20 mg daily #Diabetes mellitus #Diabetic neuropathy ? ACHS fingersticks, SSI during admission, A1c 11/11 was 5.3%. ? Continue gabapentin 300 mg 3 times daily #GERD: Continue pantoprazole 40 mg at bedtime #Hypothyroidism: Continue levothyroxine 200 mcg daily. Ensure patient takes levothyroxine on empty stomach 30 minutes prior to eating. Recheck TSH at PCP follow-up. Continue allopurinol 100 mg daily, continue iron 325 mg daily Total time spent on discharge 32 minutes in counseling, documentation, chart review, and direct care with patient. Exam Data for Last 24 hours Vital signs and Labs for Last 24 Hours: Temp Pulse Resp BP Pulse Ox O2 Del Method 98.4 F 76 18 114/47 L 96 Room Air 02/15/25 08:00 02/15/25 08:00 02/15/25 08:00 02/15/25 08:00 02/15/25 08:00 02/15/25 08:00 Laboratory Results - last 24 hr 02/13/25 06:35: POC Glucose 170 H 02/14/25 15:57: POC Glucose 148 H 02/14/25 20:05: POC Glucose 311 H* 02/14/25 22:46: POC Glucose 155 H 02/15/25 05:54: WBC 7.7, RBC 2.96 L, Hgb 8.7 L, Hct 27.1 L, MCV 91.6, MCH 29.4, MCHC 32.1, RDW 14.2, Plt Count 228, MPV 9.0, Neut % (Auto) 51.5, Lymph % (Auto) 33.7, [place] % (Auto) 10.3 H, Eos % (Auto) 3.4, Baso % (Auto) 0.3, Neut # (Auto) 4.0, Lymph # (Auto) 2.6, [place] # (Auto) 0.8, Eos # (Auto) 0.3, Baso # (Auto) 0.0, Sodium 134 L, Potassium 4.3, Chloride 103, Carbon Dioxide 26, Anion Gap 9.3, BUN 27 H, Creatinine 1.10 H, Estimated Creat Clear 59, Estimated GFR 50 L, Est GFR ( Amer) 61, Glucose 124 H, Calcium 9.3, Total Bilirubin 0.2, AST 49 H D, ALT 20 D, Alkaline Phosphatase 110, Total Protein 6.5, Albumin 3.5, Globulin 3.0, Albumin/Globulin Ratio 1.2 02/15/25 06:04: POC Glucose 142 H I & O for Last 24 hours: Intake & Output 02/12/25 02/13/25 02/14/25 02/15/25 23:59 23:59 23:59 23:59 Intake Total 2340 / 2340 2678.75 / 2708.75 2286.25 / 2286.25 0 / 0 Output Total 0 / 100 2550 / 3100 2550 / 3350 2250 / 2250 Balance 2340 / 2240 128.75 / -391.25 -263.75 / -1063.75 -2250 / -2250 Weight 65.771 kg 66.633 kg 70.08 kg 70.624 kg Constitutional Constitutional: no acute distress *Routine HEENT Exam Head: Present normocephalic Eye: Present EOMI and PERRL ENT: Present mucous membranes moist *Routine Neck Exam Neck: Present supple; Absent lymphadenopathy *Routine Respiratory Exam Respiratory: Present CTA bilaterally *Routine Cardiovascular Exam Cardiovascular: Present RRR *Routine Abdominal Exam Abdominal: Present soft and normoactive bowel sounds; Absent tenderness *Routine Extremities Exam Extremities: Absent cyanosis, clubbing or edema Comments: Left lower extremity BKA stump wrapped without obvious seeping. *Routine Skin Exam Skin: Present warm; Absent rash *Routine Neurological Exam Neurological: Present alert and oriented X3 Results Data Completed and Pending Labs on day of discharge: Labs from last 24 hours 02/15/25 02/15/25 02/14/25 06:04 05:54 22:46 WBC 7.7 RBC 2.96 L Hgb 8.7 L Hct 27.1 L MCV 91.6 MCH 29.4 MCHC 32.1 RDW 14.2 Plt Count 228 MPV 9.0 Neut % (Auto) 51.5 Lymph % (Auto) 33.7 [place] % (Auto) 10.3 H Eos % (Auto) 3.4 Baso % (Auto) 0.3 Neut # (Auto) 4.0 Lymph # (Auto) 2.6 [place] # (Auto) 0.8 Eos # (Auto) 0.3 Baso # (Auto) 0.0 Sodium 134 L Potassium 4.3 Chloride 103 Carbon Dioxide 26 Anion Gap 9.3 BUN 27 H Creatinine 1.10 H Estimated Creat Clear 59 Estimated GFR 50 L Est GFR ( Amer) 61 Glucose 124 H POC Glucose 142 H 155 H Calcium 9.3 Total Bilirubin 0.2 AST 49 H D ALT 20 D Alkaline Phosphatase 110 Total Protein 6.5 Albumin 3.5 Globulin 3.0 Albumin/Globulin Ratio 1.2 02/14/25 02/14/25 02/13/25 20:05 15:57 06:35 WBC RBC Hgb Hct MCV MCH MCHC RDW Plt Count MPV Neut % (Auto) Lymph % (Auto) [place] % (Auto) Eos % (Auto) Baso % (Auto) Neut # (Auto) Lymph # (Auto) [place] # (Auto) Eos # (Auto) Baso # (Auto) Sodium Potassium Chloride Carbon Dioxide Anion Gap BUN Creatinine Estimated Creat Clear Estimated GFR Est GFR ( Amer) Glucose POC Glucose 311 H* 148 H 170 H Calcium Total Bilirubin AST ALT Alkaline Phosphatase Total Protein Albumin Globulin Albumin/Globulin Ratio DS: Diagnosis Discharge Diagnosis (1) Status post below-knee amputation of left lower extremity: Status: Acute Code(s): Z89.512 - Acquired absence of left leg below knee (2) (HFpEF) heart failure with preserved ejection fraction: Status: Acute Code(s): I50.30 - Unspecified diastolic (congestive) heart failure (3) Diabetes mellitus: Status: Acute Code(s): E11.9 - Type 2 diabetes mellitus without complications Qualifiers: Diabetes mellitus type: type 2 (4) Hypertension: Status: Acute Code(s): I10 - Essential (primary) hypertension Qualifiers: Hypertension type: unspecified Qualified Code(s): I10 - Essential (primary) hypertension (5) Neuropathy: Status: Acute Code(s): G62.9 - Polyneuropathy, unspecified (6) Hyperlipidemia: Status: Acute Code(s): E78.5 - Hyperlipidemia, unspecified Qualifiers: Hyperlipidemia type: unspecified Qualified Code(s): E78.5 - Hyperlipidemia, unspecified Meds Home Medications and Allergies Home Medications ?Medication ?Instructions ?Recorded ?Confirmed ?Type sennosides 8.6 mg tablet (Senna 17.2 mg (2 x 8.6 mg) P O DAILY 30 04/24/24 02/12/25 Rx Laxative) days #60 tabs citalopram 20 mg tablet 20 mg PO DAILY #90 tabs 08/1802/12/25 Rx clopidogrel 75 mg tablet 75 mg PO DAILY #30 tabs 09/1902/12/25 Rx lisinopril 40 mg tablet 40 mg PO HS #30 tabs 5 02/12/25 Rx aspirin 81 mg tablet,delayed 81 mg PO DAILY 10/20/24 0 02/12/25 History release (Darshana Low Dose Aspirin) ferrous sulfate 325 mg (65 mg 325 mg PO DAILY 10/20/24 02/12/25 History iron) tablet (Feosol) furosemide 80 mg tablet 80 mg PO DAILY 30 days #90 t abs 12/20/24 02/12/25 Rx Diabetic Shoes (DME) #1 ea 01/09/25 02/12/25 Rx atorvastatin 40 mg tablet 40 mg PO HS #90 tabs 5 02/12/25 Rx allopurinol 100 mg tablet 100 mg PO DAILY 01/20/25 History dapagliflozin propanediol 10 mg 10 mg PO DAILY 5 02/12/25 History tablet (Farxiga) carvedilol 12.5 mg tablet 12.5 mg PO BID 01/21/2501/19 History blood-glucose sensor (Dexcom G7 #1 ea 01/23/25 5 Rx Sensor device) bupropion HCl 150 mg tablet,12 hr 150 mg PO BID #30 ea 01/23/25 02/12/25 Rx sustained-release pantoprazole 40 mg tablet,delayed 40 mg PO HS #90 tabs 01/23/25 02/12/25 Rx release gabapentin 300 mg capsule 300 mg PO TID #90 caps 01/2502/12/25 Rx amlodipine 5 mg tablet 5 mg PO DAILY 02/12/2502/12 History hydrocodone 5 mg-acetaminophen 325 1 tab PO Q8HP PRN S evere Pain 02/12/25 02/12/25 History mg tablet (7-10) Held on 02/15/25. Instructions: Until Percocet course complete levothyroxine 200 mcg tablet 200 mcg PO DAILY 02/12/25 02/12/25 History New Prescriptions to Start Prescriptions: Allergies Allergy/AdvReac Type Severity Reaction Status Date / Time canagliflozin (From Invokana) Allergy Severe kidney Verified 02/12/25 08:54 issues Discharge Plan Disposition Patient Disposition: Xfer SNF Condition: Good Follow up Plan Follow up with: Ramos Morales APRN [Primary Care Provider, Family Practice] - Enter time for follow up Cricket Redmond DO [Staff Physician, Orthopedics] - Enter time for follow up Prescriptions/Medication Reconciliation: Continued (DME) Diabetic Shoes (DME) Misc See Rx Instructions .Route Qty: 1 0RF Rx Instructions: [facility] Please dispense ONE (1) pair of Diabetic Shoes with inserts sennosides [Senna Laxative] 8.6 mg tablet 17.2 mg PO DAILY 30 Days Qty: 60 3RF citalopram 20 mg tablet 20 mg PO DAILY Qty: 90 3RF lisinopril 40 mg tablet 40 mg PO HS Qty: 30 3RF clopidogrel 75 mg tablet 75 mg PO DAILY Qty: 30 3RF furosemide 80 mg tablet 80 mg PO DAILY 30 Days Qty: 90 0RF atorvastatin 40 mg tablet 40 mg PO HS Qty: 90 0RF (DME) Dexcom G7 Sensor Device See Rx Instructions .Route Qty: 1 3RF Rx Instructions: As directed bupropion HCl 150 mg tablet sustained-release 12 hr 150 mg PO BID Qty: 30 3RF pantoprazole 40 mg tablet,delayed release (DR/EC) 40 mg PO HS Qty: 90 3RF gabapentin 300 mg capsule 300 mg PO TID Qty: 90 2RF aspirin [Darshana Low Dose Aspirin] 81 mg tablet,delayed release (DR/EC) 81 mg PO DAILY ferrous sulfate [Feosol] 325 mg (65 mg iron) tablet 325 mg PO DAILY dapagliflozin propanediol [Farxiga] 10 mg tablet 10 mg PO DAILY Patient Comments: TAKE 1 TABLET BY MOUTH EVERY DAY FOR 30 DAYS allopurinol 100 mg tablet 100 mg PO DAILY carvedilol 12.5 mg tablet 12.5 mg PO BID Patient Comments: TAKE 1 TABLET BY MOUTH TWICE DAILY amlodipine 5 mg tablet 5 mg PO DAILY Patient Comments: TAKE 1 TABLET BY MOUTH ONCE DAILY levothyroxine 200 mcg tablet 200 mcg PO DAILY Held hydrocodone-acetaminophen 5-325 mg tablet 1 tab PO Q8HP PRN (Reason: Severe Pain (7-10)) Hold Instructions: Until Percocet course complete Problem Reconciliation Problems Reviewed?: Yes Patient Discharge Instructions ACTIVITY: Continue current activity, Ambulate as tolerated and Up with assistance DIET: continue same diet and diabetic diet Patient Instructions: Glrxu-bvs-Yoze Amputation, DI for Surgical Site Infection, Stop Light COPD, Stop Light Heart Failure Print Language: Khmer Providers Primary Care Provider: Ramos Morales Provider: German Jurado Attending Provider: German Jurado
[2025-02-15] MEDS: humaLOG 100 UNITS/ML 10ML VIAL (SSI) SUBCUT ×3 (13:06→20:58)
[2025-02-15] MEDS: LACTATED RINGERS 1000ML 1,000 ML 75 ML IV (13:11)
[2025-02-15 16:00] VITALS: BP 128/74; PULSE 76; RESP 16; TEMP 36.9; O2SAT 92
--- NOTE | 2025-02-15 16:36 | P.EN_ITS ---
Patient will likely have a bed at [facility] tomorrow. Currently doing well, continue pain regimen as needed. No acute concerns.
--- NOTE | 2025-02-15 19:15 | PC.NURSE ---
patient remains alert and oriented x4, VSS. patient being treated for pain r/t LBKA per AUG. LR @ 75mls/hr. Patient has no complaints at this time, bed in lowest position, call light in reach.
[2025-02-15 20:00] VITALS: BP 118/67; PULSE 67; RESP 14; TEMP 36.7; O2SAT 87
[2025-02-15] MEDS: ATORVASTATIN 40MG TABLET 40 MG PO (21:00)
[2025-02-15] MEDS: PANTOPRAZOLE 40MG TABLET 40 MG PO (21:00)
[2025-02-15] MEDS: LISINOPRIL 20MG TABLET 40 MG PO (21:01)
[2025-02-16] MEDS: LACTATED RINGERS 1000ML 1,000 ML 75 ML IV (02:26)
[2025-02-16] MEDS: OXYCODONE 5MG W/APAP 325MG TABLET 2 EACH PO ×5 (02:27→19:09)
[2025-02-16 04:00] VITALS: BP 128/68; PULSE 66; RESP 16; TEMP 36.6; O2SAT 96; BMI 28.8
[2025-02-16] MEDS: LEVOTHYROXINE 100MCG (0.1MG) TAB 200 MCG PO (06:40)
[2025-02-16 06:50] LABS: Hematocrit 26.5 % (37.0-47.0); Hemoglobin 8.6 g/dL (12.2-16.2); Immature Granulocytes % 0.6 %; Mean Corpuscular HGB Conc 32.5 g/dL (31.8-35.4); Mean Corpuscular Hemoglobin 29.6 pg (27.0-31.2); Mean Corpuscular Volume 91.1 fl (81-99); Nucleated Red Blood Cells % 0 %; Platelet Count 226 K/mm3 (142-424); Red Blood Count 2.91 M/mm3 (4.20-5.40); Red Cell Distribution Width-SD 47.2 fL; White Blood Count 6.8 K/mm3 (4.8-10.8)
[2025-02-16 07:49] LABS: Alanine Aminotransferase 23 U/L (12-78); Albumin Level 3.3 g/dl (3.5-5.0); Albumin/Globulin Ratio 1.0 (1.1-1.8); Alkaline Phosphatase 112 U/L (38-126); Anion Gap 13.3 mEq/L (5-15); Aspartate Amino Transferase 38 U/L (14-36); Bilirubin,Total 0.4 mg/dl (0.2-1.3); Blood Urea Nitrogen 28 mg/dl (7-17); Calcium 9.2 mg/dl (8.4-10.2); Carbon Dioxide 28 mmol/L (22.0-30.0); Chloride 99 mmol/L (98-107); Creatinine Clearance Estimated 59 mL/min (50-200); Creatinine,Serum 1.10 mg/dl (0.52-1.04); Estimated Glomerular Filt Rate 50 ml/min (>60); GFR (African American) 61 ML/MIN (>60); Globulin 3.2 g/dL (1.3-3.2); Glucose 99 mg/dl (74-100); Potassium 4.3 mmoL/L (3.5-5.1); Sodium 136 mmol/L (136-145); Total Protein,Serum 6.5 g/dl (6.3-8.2)
[2025-02-16 08:00] VITALS: BP 164/72; PULSE 72; RESP 16; TEMP 36.4; O2SAT 98
[2025-02-16] MEDS: GABAPENTIN 300MG CAPSULE 300 MG PO ×2 (09:27→12:20)
[2025-02-16] MEDS: CARVEDILOL 12.5MG TABLET 12.5 MG PO (09:28)
[2025-02-16] MEDS: FUROSEMIDE 80 MG TABLET PO (09:28)
[2025-02-16] MEDS: CITALOPRAM 20MG TABLET 20 MG PO (09:28)
[2025-02-16] MEDS: ALLOPURINOL 100MG TABLET 100 MG PO (09:28)
[2025-02-16] MEDS: DAPAGLIFLOZIN PROPANEDIOL 10 MG TABLET PO (09:28)
[2025-02-16] MEDS: CLOPIDOGREL 75MG TAB 75 MG PO (09:28)
[2025-02-16] MEDS: FERROUS SULFATE 325MG TABLET 325 MG PO (09:28)
[2025-02-16] MEDS: ASPIRIN EC 81MG TABLET 81 MG PO (09:28)
[2025-02-16] MEDS: AMLODIPINE 5MG TABLET 5 MG PO (09:28)
[2025-02-16] MEDS: POLYETHYLENE GLYCOL 3350 17 GM PACKET PO (09:29)
[2025-02-16 11:25] LABS: POC Glucose,Bedside 266 gm/dL (70-110)
[2025-02-16 11:25] LABS: POC Glucose,Bedside 213 gm/dL (70-110)
[2025-02-16 12:00] VITALS: BP 149/62; PULSE 75; RESP 16; TEMP 36.7; O2SAT 98
[2025-02-16 16:00] VITALS: BP 103/59; PULSE 65; RESP 16; TEMP 36.7; O2SAT 98
--- NOTE | 2025-02-16 19:24 | PC.NURSE ---
PATIENT AWAITING EMS TRANSPORT TO [facility].
[2025-02-16 19:33] VITALS: BP 108/69; PULSE 68; RESP 16; TEMP 36.7; O2SAT 96
--- NOTE | 2025-02-16 20:28 | PC.NURSE ---
Patient left floor with EMS at 20:26.
== END 2025-02-16 20:31 | DRG 617 ==
LOC: 2ND 14:44
PROVIDERS: Orthopaedic Surgery; Admitting Provider Student in an Organized Health Care Education/Training Program; PCP Nurse Practitioner Family; Visit Provider Student in an Organized Health Care Education/Training Program
PROC: 0Y6J0Z3 Detachment at Left Lower Leg, Low, Open Approach (ICD-10-PCS; CPT 27880; principal; 2025-02-12 09:45)
DX: E11.69 Type 2 diabetes mellitus with other specified complication (principal); I13.0 Hypertensive heart and chronic kidney disease with heart failure and stage 1 through stage 4 chronic kidney disease, or unspecified chronic kidney disease; I50.32 Chronic diastolic (congestive) heart failure; M86.8X7 Other osteomyelitis, ankle and foot; E11.22 Type 2 diabetes mellitus with diabetic chronic kidney disease; N18.9 Chronic kidney disease, unspecified; I25.10 Atherosclerotic heart disease of native coronary artery without angina pectoris; K21.9 Gastro-esophageal reflux disease without esophagitis; F17.210 Nicotine dependence, cigarettes, uncomplicated; E03.9 Hypothyroidism, unspecified; F39 Unspecified mood [affective] disorder; E11.42 Type 2 diabetes mellitus with diabetic polyneuropathy; Z79.899 Other long term (current) drug therapy; Z79.82 Long term (current) use of aspirin; Z79.890 Hormone replacement therapy; Z75.1 Person awaiting admission to adequate facility elsewhere; Z79.02 Long term (current) use of antithrombotics/antiplatelets
CPT/HCPCS: 36415; 80048; 80053; 82962; 84439; 84443; 85025; 96374; 97110; 97162; 97166; 97530; J0665; J0690; J1100; J1171; J2003; J2250; J2270; J2405; J2704; J3010; J7120